=== PATIENT | female | born 1945 ===

== ENCOUNTER → 2020-03-04 15:08 | Outpatient (BNVA) | payer MEDICARE, SELFPAY | PROVIDERS: PCP Internal Medicine; Referring Provider Internal Medicine; Visit Provider Hospitalist | DX: Z13.89 Encounter for screening for other disorder (principal) | CPT/HCPCS: Q3014 ==

== ENCOUNTER → 2020-04-30 13:28 | Outpatient (BNVA) | payer MEDICARE, SELFPAY | PROVIDERS: PCP Internal Medicine; Visit Provider Hospitalist | DX: J01.00 Acute maxillary sinusitis, unspecified (principal); J30.9 Allergic rhinitis, unspecified; J45.40 Moderate persistent asthma, uncomplicated; R91.8 Other nonspecific abnormal finding of lung field; Z77.22 Contact with and (suspected) exposure to environmental tobacco smoke (acute) (chronic); Z79.51 Long term (current) use of inhaled steroids | CPT/HCPCS: 99212 ==

== ENCOUNTER 2020-05-13 10:24 | Outpatient (REF) | payer MEDICARE, SELFPAY ==
--- NOTE | ~2020-05-13 | CT_ITS ---
EXAMINATION: CT CHEST WITHOUT CONTRAST CLINICAL INFORMATION: Pulmonary nodule. Follow up. COMPARISON: CT chest 08/18/2019. TECHNIQUE: Multidetector volumetric CT imaging of the chest was done. Axial MIP volume rendering provided. Sagittal and coronal reformatted images were obtained. This CT examination was performed using dose optimization techniques as appropriate, variously including the following: Automated exposure control. Adjustment of mA and/or kV according to patient size (this includes techniques or standardized protocols for targeted exams where dose is matched to indication/reason for exam; i.e. extremities or head). Use of iterative reconstruction technique. DLP: 115 mGy-cm FINDINGS: DOWEL STICKER OPERATOR: Unremarkable. LUNGS: There are bilateral pulmonary nodules. A 2 mm calcified nodule right upper lobe image 134/5, a 7 mm calcified nodule right lower lobe medially axial image 302/5, a 2 mm calcified nodule right lower lobe image 310/5 and a 3 mm noncalcified nodule right lung base image 359/5. Minimal atelectatic changes are seen in the right lung base. There is a 7 mm lingular nodule image 302/5 approximately same size on the previous study. Focal mucosal plugging just proximal to the nodule appears improved. There is a 5 mm nodule left upper lobe axial image 220/5, a bilobed 3 mm left CP angle nodule axial image 394/5, stable 2 mm subpleural nodule left lower lobe superior segment axial image 274/5, stable. MEDIASTINUM: The thyroid lobes are symmetrical and normal. The central trachea and the bronchi are widely patent. Heart size and the great vessels are normal caliber. There are coronary artery calcifications present. There is no pericardial effusion. No abnormal mediastinal or hilar lymph nodes seen. PLEURA: There is no pleural effusion. No pleural mass or thickening. AXILLA: There are small shotty lymph nodes seen in the bilateral axilla. UPPER ABDOMEN: Visualized liver, spleen, pancreas and bilateral adrenal glands are unremarkable. There are no radiopaque gallstones. OSSEOUS STRUCTURES: There is a lytic lesion T11 vertebra similar to previous study. CT/CT chest wo con IMPRESSION: Essentially stable noncalcified pulmonary nodules in the left lung. Several calcified nodules in the right lung are stable. Focal mucus plugging appears slightly improved. No new pulmonary nodules, consolidation or mass seen. Small shotty lymph nodes axillae stable.
== END 2020-05-13 10:25 | disposition home or self-care (01) ==
LOC: HO.CT 10:24
PROVIDERS: Visit Provider Hospitalist
DX: R91.8 Other nonspecific abnormal finding of lung field (principal)
CPT/HCPCS: 71250

== ENCOUNTER → 2020-05-20 13:33 | Outpatient (BNVA) | payer MEDICARE, SELFPAY | PROVIDERS: PCP Internal Medicine; Visit Provider Internal Medicine Gastroenterology | DX: R10.9 Unspecified abdominal pain (principal); K29.70 Gastritis, unspecified, without bleeding; K31.84 Gastroparesis; K92.89 Other specified diseases of the digestive system; K59.09 Other constipation; Z79.4 Long term (current) use of insulin; E11.43 Type 2 diabetes mellitus with diabetic autonomic (poly)neuropathy; Z12.11 Encounter for screening for malignant neoplasm of colon | CPT/HCPCS: 99212 ==

== ENCOUNTER → 2020-05-28 14:33 | Outpatient (BNVA) | payer MEDICARE, SELFPAY | PROVIDERS: PCP Internal Medicine; Visit Provider Hospitalist | DX: Z13.89 Encounter for screening for other disorder (principal) | CPT/HCPCS: Q3014 ==

== ENCOUNTER 2020-06-15 07:34 | Outpatient (REF) | payer MEDICARE, SELFPAY ==
[2020-06-15 08:48] LABS: Alanine Aminotransferase 19 U/L (0-31); Albumin Level 4.2 g/dL (3.5-5.0); Alkaline Phosphatase 64 U/L (39-117); Anion Gap 12 (12-20); Aspartate Amino Transferase 17 U/L (5-31); Bilirubin Total 0.7 mg/dL (0.0-1.0); Blood Urea Nitrogen 26 mg/dL (9-16); Calcium 9.4 mg/dL (8.4-10.2); Carbon Dioxide 27 mmol/L (22-29); Chloride 106 mmol/L (96-108); Cholesterol 177 mg/dL; Estimated Glomerular Filt Rate 58; Glucose Fasting 123 mg/dL (60-99); HDL Cholesterol 44 mg/dL; LDL Cholesterol Calculated 111 mg/dl; Potassium 4.3 mmol/L (3.3-5.1); Sodium 141 mmol/L (135-145); Total Protein 7.2 g/dL (6.5-8.0); Triglycerides 111 mg/dL
[2020-06-15 09:35] LABS: Creatinine Urine 114.36 mg/dL; Microalbumin Urine < 5.0 mg/L
[2020-06-18 13:22] LABS: Vitamin D 25-OH, D2 <4 ng/mL; Vitamin D 25-OH, D3 31 ng/mL; Vitamin D 25-OH, Total 31 ng/mL (30-100)
== END 2020-06-15 07:35 | disposition home or self-care (01) ==
LOC: HO.LAB 07:34
PROVIDERS: Absent Provider Nurse Practitioner Family; PCP Internal Medicine; Visit Provider Internal Medicine
DX: E11.9 Type 2 diabetes mellitus without complications (principal); E78.5 Hyperlipidemia, unspecified; E55.9 Vitamin D deficiency, unspecified; Z79.4 Long term (current) use of insulin
CPT/HCPCS: 36415; 80053; 80061; 82043; 82306

== ENCOUNTER → 2020-06-24 13:27 | Outpatient (BNVA) | payer MEDICARE, SELFPAY | PROVIDERS: PCP Internal Medicine; Visit Provider Hospitalist | DX: R91.8 Other nonspecific abnormal finding of lung field (principal); R05 Cough; J45.40 Moderate persistent asthma, uncomplicated; J30.9 Allergic rhinitis, unspecified | CPT/HCPCS: 99212 ==

== ENCOUNTER → 2020-07-02 09:39 | Outpatient (BNVA) | payer MEDICARE, SELFPAY | PROVIDERS: PCP Internal Medicine; Visit Provider Hospitalist | DX: J45.40 Moderate persistent asthma, uncomplicated (principal); R91.8 Other nonspecific abnormal finding of lung field; R05 Cough | CPT/HCPCS: 94664; 99211 ==

== ENCOUNTER → 2020-07-08 09:18 | Outpatient (BNVA) | payer MEDICARE, SELFPAY | PROVIDERS: PCP Internal Medicine; Visit Provider Hospitalist | DX: J45.40 Moderate persistent asthma, uncomplicated (principal); R05 Cough; R91.8 Other nonspecific abnormal finding of lung field | CPT/HCPCS: 99212 ==

== ENCOUNTER → 2020-07-13 11:17 | Outpatient (BNVA) | payer MEDICARE, SELFPAY | PROVIDERS: PCP Internal Medicine; Visit Provider Internal Medicine | DX: Z01.810 Encounter for preprocedural cardiovascular examination (principal); I25.10 Atherosclerotic heart disease of native coronary artery without angina pectoris; E11.8 Type 2 diabetes mellitus with unspecified complications; I10 Essential (primary) hypertension; E78.5 Hyperlipidemia, unspecified; R05 Cough; J45.40 Moderate persistent asthma, uncomplicated; J30.9 Allergic rhinitis, unspecified; R91.8 Other nonspecific abnormal finding of lung field | CPT/HCPCS: 93005; 99212 ==

== ENCOUNTER 2020-07-14 09:55 | Day surgery (SDC) | payer MEDICARE, SELFPAY ==
--- NOTE | 2020-07-13 13:02 | P.CONAN_ITS ---
HPI - Anesthesia Eval Consult details Narrative: 74yo F for Bronchoscopy Fiberoptic Cardiac cleared at low risk Seen at [facility] ED with chest pressure. No ACS, sent home with referral to f/u with cardiology. [facility] Active Problems Active Problems: All Active Problems (Updated 07/13/20 @ 11:48 by Jm Spencer MD) Preoperative cardiovascular examination (Acute) Other and unspecified hyperlipidemia (Acute) Essential hypertension (Acute) Type 2 diabetes mellitus with unspecified complications (Acute) Atherosclerotic cardiovascular disease (Acute) Urinary incontinence (Acute) Obese (Acute) Dyslipidemia (Acute) Essential hypertension (Acute) Gas bloat syndrome (Acute) Colon cancer screening (Acute) Chronic constipation (Acute) Anxiety and depression (Acute) Gastric pain (Acute) Sinusitis (Acute) Diabetic gastroparesis (Acute) Gastritis (Acute) Chronic allergic rhinitis (Acute) Asthma (Acute) Cough (Acute) Cough (Acute) Diabetes mellitus (Acute) Fibromyalgia (Acute) Pulmonary nodules (Acute) Past Medical History Medical History Anxiety and depression Asthma Atherosclerotic cardiovascular disease Chronic allergic rhinitis Cough Cough Diabetes mellitus Dyslipidemia Essential hypertension Fibromyalgia Gastric pain Obese Pulmonary nodules Sinusitis Urinary incontinence Family History Family History Father Hypertension Mother Hypertension Diabetes Daughter Diabetes Brother No problems noted. Surgical History Surgical History H/O breast biopsy H/O left knee surgery H/O: hysterectomy Hx of colonoscopy Social History Social History Household Members: Children Alcohol intake: never Smoking Status: Never smoker Tobacco Type: Cigarette Second Hand Smoke Exposure: Yes Meds Allergies Allergy/AdvReac Type Severity Reaction Status Date / Time empagliflozin [Jardiance] AdvReac Unknown vaginal Verified 07/14/20 22:23 itch fluticasone [Flovent HFA] AdvReac Unknown lip Verified 07/14/20 22:23 swelling metformin AdvReac Unknown stomach Verified 07/14/20 22:23 pain sitagliptin [Januvia] AdvReac Unknown stomach Verified 07/14/20 22:23 pain motrin Allergy Unknown stomachache Uncoded 07/14/20 22:23 percocet Allergy Unknown nausea and Uncoded 07/14/20 22:23 vomiting vicodin Allergy Unknown nausea and Uncoded 07/14/20 22:23 vomiting Home Medications Medication Instructions Recorded Confirmed Last Taken Type clonidine 0.1 mg/24 hr weekly 1 patch TOPICAL QWEEK 12/30/19 07/13/20 Unknown History transdermal patch ipratropium bromide 21 mcg (0.03 INTRANASAL 12/30/19 07/13/20 Unknown History %) nasal spray latanoprost 0.005 % eye drops 1 drp OPHTHALMIC (EYE) ml 12/30/19 07/13/20 Unknown History lancets #100 ea 01/06/20 07/13/20 Unknown History azelastine 137 mcg (0.1 %) nasal 2 spray INTRANASAL BID 05/20/20 07/13/20 Unknown History spray aerosol lidocaine HCl 2 % mucosal solution ml PO 05/20/20 07/13/20 Unknown History ondansetron HCl 4 mg tablet 4 mg PO Q8H PRN 05/28/20 07/13/20 Unknown History ketotifen fumarate 0.025 % (0.035 1 drp OPHTHALMIC (EYE) BID 06/24/20 07/13/20 Unknown History %) eye drops atorvastatin 40 mg tablet 40 mg PO DAILY tab 07/13/20 07/13/20 Unknown History Exam Exam Date and Time: July 13, 2020 1302 Narrative Narrative: Last echocardiogram shows LVEF of 50-55%, mild diastolic dysfunction but otherwise unremarkable. Myocardial perfusion imaging with no ischemia; fixed defect along the anterior wall and septum suspected to be from soft tissue artifact. Chest CT scan shows calcification of her coronary arteries. Gianni amado, recommend medical treatment for stable coronary disease. EKG 06/2020 sinus rhythm at 81/Min; no significant ST-T changes and otherwise unremarkable. Poor R-wave progression is most likely from her body habitus. Assessment and Plan Assessment Anesthesia Assessment: Chart Reviewed
[2020-07-14] VITALS (9 sets, daily range): BP systolic 106–160; BP diastolic 54–74; PULSE 57–96; RESP 16–18; TEMP 36.1–36.6; O2SAT 96–99; BMI 32.3
[2020-07-14 10:31] LABS: Glucose, Whole Blood 137 mg/dL (60-115)
--- NOTE | 2020-07-14 10:44 | HO.ANESPROP2 ---
[facility] Active Problems Active Problems: All Active Problems (Updated 07/13/20 @ 13:06 by Linda Lawrence) Preoperative cardiovascular examination (Acute) Other and unspecified hyperlipidemia (Acute) Essential hypertension (Acute) Type 2 diabetes mellitus with unspecified complications (Acute) Atherosclerotic cardiovascular disease (Acute) Urinary incontinence (Acute) Obese (Acute) Dyslipidemia (Acute) Essential hypertension (Acute) Gas bloat syndrome (Acute) Colon cancer screening (Acute) Chronic constipation (Acute) Anxiety and depression (Acute) Gastric pain (Acute) Sinusitis (Acute) Diabetic gastroparesis (Acute) Gastritis (Acute) Chronic allergic rhinitis (Acute) Asthma (Acute) Cough (Acute) Cough (Acute) Diabetes mellitus (Acute) Fibromyalgia (Acute) Pulmonary nodules (Acute) Past Medical History Medical History Anxiety and depression Asthma Atherosclerotic cardiovascular disease Chronic allergic rhinitis Cough Cough Diabetes mellitus Dyslipidemia Essential hypertension Fibromyalgia Gastric pain Obese Pulmonary nodules Sinusitis Urinary incontinence Family History Family History Father Hypertension Mother Hypertension Diabetes Daughter Diabetes Brother No problems noted. Surgical History Surgical History H/O breast biopsy H/O left knee surgery H/O: hysterectomy Hx of colonoscopy Social History Social History Household Members: Children Alcohol intake: never Smoking Status: Never smoker Tobacco Type: Cigarette Second Hand Smoke Exposure: Yes Use of substances other than those prescribed or required for medical reasons: No Are you DNR?: No Advance Directives: No Advance Directives Information Provided: Yes Meds Allergies Allergy/AdvReac Type Severity Reaction Status Date / Time empagliflozin [Jardiance] AdvReac Unknown vaginal Verified 07/14/20 10:42 itch fluticasone [Flovent HFA] AdvReac Unknown lip Verified 07/14/20 10:42 swelling metformin AdvReac Unknown stomach Verified 07/14/20 10:42 pain sitagliptin [Januvia] AdvReac Unknown stomach Verified 07/14/20 10:42 pain motrin Allergy Unknown stomachache Uncoded 07/13/20 13:02 percocet Allergy Unknown nausea and Uncoded 07/13/20 13:02 vomiting vicodin Allergy Unknown nausea and Uncoded 07/13/20 13:02 vomiting Active Medications: Current Medications Generic Name Dose Route Start Last Admin Trade Name Maral PRN Reason Stop Dose Admin Lactated Ringer's 1,000 mls @ 50 mls/hr 07/14/20 10:15 Lr IV .Q20H [facility] Home Medications Medication Instructions Recorded Confirmed Last Taken Type clonidine 0.1 mg/24 hr weekly 1 patch TOPICAL QWEEK 12/30/19 07/13/20 Unknown History transdermal patch ipratropium bromide 21 mcg (0.03 INTRANASAL 12/30/19 07/13/20 Unknown History %) nasal spray latanoprost 0.005 % eye drops 1 drp OPHTHALMIC (EYE) ml 12/30/19 07/13/20 Unknown History lancets #100 ea 01/06/20 07/13/20 Unknown History azelastine 137 mcg (0.1 %) nasal 2 spray INTRANASAL BID 05/20/20 07/13/20 Unknown History spray aerosol lidocaine HCl 2 % mucosal solution ml PO 05/20/20 07/13/20 Unknown History ondansetron HCl 4 mg tablet 4 mg PO Q8H PRN 05/28/20 07/13/20 Unknown History ketotifen fumarate 0.025 % (0.035 1 drp OPHTHALMIC (EYE) BID 06/24/20 07/13/20 Unknown History %) eye drops mirtazapine 15 mg tablet 15 mg PO BEDTIME 06/24/20 07/13/20 Unknown History atorvastatin 40 mg tablet 40 mg PO DAILY tab 07/13/20 07/13/20 Unknown History Exam Exam Date and Time: July 14, 2020 1044 Height,Weight and Vital Signs: Height 4 ft 11 in Weight 72.575 kg Pertinent Lab Results Pertinent Lab Results: Laboratory Tests 07/14/20 10:24 POC Glucose 137 H Airway Mallampati Class: III TM Dist: >3cm Neck ROM: Full Heart: RRR Lungs: cTA
[2020-07-14] MEDS: Lactated Ringers 1,000 ML 50 ML IV (10:57)
--- NOTE | 2020-07-14 11:26 | MHC.SHP ---
Pre-Procedural Eval Section B Chief Complaint: cough Allergies: Allergies Allergy/AdvReac Type Severity Reaction Status Date / Time empagliflozin [Jardiance] AdvReac Unknown vaginal Verified 07/14/20 10:42 itch fluticasone [Flovent HFA] AdvReac Unknown lip Verified 07/14/20 10:42 swelling metformin AdvReac Unknown stomach Verified 07/14/20 10:42 pain sitagliptin [Januvia] AdvReac Unknown stomach Verified 07/14/20 10:42 pain motrin Allergy Unknown stomachache Uncoded 07/13/20 13:02 percocet Allergy Unknown nausea and Uncoded 07/13/20 13:02 vomiting vicodin Allergy Unknown nausea and Uncoded 07/13/20 13:02 vomiting Plan I have reviewed the history and physical and performed a pertinent physical examination on my patient. No changes have occurred unless specified.
--- NOTE | 2020-07-14 11:52 | P.BOP_ITS ---
Brief Operative Note Date of Service: 07/14/20 Pre-op diagnosis: cough Post-op diagnosis: other (Tracheobronchomalecia) Procedure: Bronchoscopy Surgeon: Reji Wilks MD Anesthesia: GLMA Was an Welder Apprentice Combination used for this Procedure?: No Estimated blood loss (mL): 0 Pathology: none sent Condition: stable Disposition: same day
[2020-07-14] MEDS: Throat Lozenge, Medicated LOZENGE 1 LOZENGE MUCOUS MEM (12:38)
--- NOTE | 2020-07-14 22:03 | OP_ITS ---
SURGEON: Reji Wilks MD PREOPERATIVE DIAGNOSIS: Cough. POSTOPERATIVE DIAGNOSIS: Tracheobronchomalacia. PROCEDURE PERFORMED: ESTIMATED BLOOD LOSS: COMPLICATIONS: ANESTHESIA: LMA. ASSISTANTS: SPECIMENS: ASA CLASSIFICATION: 3. DESCRIPTION OF PROCEDURE: After the patient is adequately sedated, the flexible digital bronchoscope was inserted over the LMA to the level of the larynx. The vocal cords appeared to be symmetrical. The patient was sedated and therefore cannot follow any commands at this point. Lidocaine was administered the vocal cords. After the lidocaine was administered, the bronchoscope was then passed the vocal cords to the level of the trachea. The proximal trachea appeared to be slightly smaller in diameter due to likely some tracheomalacia. The tracheal mucosa appeared normal. No endobronchial lesions or masses. After instilling additional lidocaine, the bronchoscope was then navigated to the distal trachea, where she had a complete obstruction of the left mainstem bronchus due to tracheobronchomalacia appeared to be all extrinsic and dynamic. No endobronchial disease noted. The bronchoscope was able to be navigated to the entire tracheobronchial tree without any evidence of any endobronchial lesions or masses. The left mainstem bronchus appeared to be more erythematous and more friable, that is where she had the obstruction. A cytologic brush was introduced into the left lower lobe. Bronchial washings were collected throughout bilateral lung washings, sent for both cytology and microbiology. The bronchoscope was then removed. The total endoscopic time approximately 10 minutes. Vital signs were stable. INTERPRETATION: 1. 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 2. Bronchitis primarily of the left mainstem bronchus. 3. Chronic cough. MD MANUEL Chu/GEOVANY / [id number]
== END 2020-07-14 13:54 | disposition home or self-care (01) ==
PROVIDERS: PCP Internal Medicine; Visit Provider Hospitalist
PROC: 0BJ08ZZ Inspection of Tracheobronchial Tree, Via Natural or Artificial Opening Endoscopic (ICD-10-PCS; CPT 31622; principal; 2020-07-14 11:30)
DX: J39.8 Other specified diseases of upper respiratory tract (principal); J98.09 Other diseases of bronchus, not elsewhere classified; R91.8 Other nonspecific abnormal finding of lung field; J32.9 Chronic sinusitis, unspecified; J45.909 Unspecified asthma, uncomplicated; I10 Essential (primary) hypertension; E11.9 Type 2 diabetes mellitus without complications; Z79.4 Long term (current) use of insulin; Z79.51 Long term (current) use of inhaled steroids; Z79.899 Other long term (current) drug therapy; Z88.8 Allergy status to other drugs, medicaments and biological substances
CPT/HCPCS: 31623; 82947; 87071; 87102; 87107; 87116; 87205; 88112; 88305; J0171; J1100; J2250; J2405; J3010

== ENCOUNTER → 2020-07-19 11:01 | Outpatient (BNVA) | payer MEDICARE, SELFPAY | PROVIDERS: PCP Internal Medicine; Referring Provider Internal Medicine; Visit Provider Internal Medicine Gastroenterology | DX: E11.43 Type 2 diabetes mellitus with diabetic autonomic (poly)neuropathy (principal); K31.84 Gastroparesis; K29.50 Unspecified chronic gastritis without bleeding; K59.09 Other constipation; K92.89 Other specified diseases of the digestive system; Z79.899 Other long term (current) drug therapy | CPT/HCPCS: Q3014 ==

== ENCOUNTER → 2020-07-22 14:43 | Outpatient (BNVA) | payer MEDICARE, SELFPAY | PROVIDERS: PCP Internal Medicine; Visit Provider Hospitalist | DX: G47.33 Obstructive sleep apnea (adult) (pediatric) (principal); R91.8 Other nonspecific abnormal finding of lung field; J45.40 Moderate persistent asthma, uncomplicated; R05 Cough; J39.8 Other specified diseases of upper respiratory tract | CPT/HCPCS: 99212 ==

== ENCOUNTER → 2020-08-17 10:44 | Outpatient (BNVA) | payer MEDICARE, SELFPAY | PROVIDERS: PCP Internal Medicine; Visit Provider Urology | DX: N32.81 Overactive bladder (principal); E11.8 Type 2 diabetes mellitus with unspecified complications | CPT/HCPCS: 51798; 99212 ==

== ENCOUNTER → 2020-08-27 14:34 | Outpatient (BNVA) | payer MEDICARE, SELFPAY | PROVIDERS: PCP Family Medicine; Visit Provider Hospitalist | DX: J39.8 Other specified diseases of upper respiratory tract (principal); J45.40 Moderate persistent asthma, uncomplicated; R91.8 Other nonspecific abnormal finding of lung field; R05 Cough; G47.33 Obstructive sleep apnea (adult) (pediatric); R40.0 Somnolence; E11.9 Type 2 diabetes mellitus without complications; E78.5 Hyperlipidemia, unspecified; I10 Essential (primary) hypertension; Z79.899 Other long term (current) drug therapy | CPT/HCPCS: 99212 ==

== ENCOUNTER → 2020-09-02 10:55 | Outpatient (REF) | payer MEDICARE, SELFPAY | LOC: HO.SL 10:55 | PROVIDERS: PCP Family Medicine; Visit Provider Hospitalist | DX: G47.33 Obstructive sleep apnea (adult) (pediatric) (principal) | CPT/HCPCS: 95806 ==

== ENCOUNTER → 2020-09-21 13:02 | Outpatient (BNVA) | payer MEDICARE, SELFPAY | PROVIDERS: PCP Family Medicine; Referring Provider Family Medicine; Visit Provider Internal Medicine | DX: J39.8 Other specified diseases of upper respiratory tract (principal); G47.33 Obstructive sleep apnea (adult) (pediatric); R91.8 Other nonspecific abnormal finding of lung field; I25.10 Atherosclerotic heart disease of native coronary artery without angina pectoris; I10 Essential (primary) hypertension; E11.8 Type 2 diabetes mellitus with unspecified complications; E78.5 Hyperlipidemia, unspecified | CPT/HCPCS: 99212 ==

== ENCOUNTER → 2020-10-20 09:41 | Outpatient (BNVA) | payer MEDICARE, SELFPAY | PROVIDERS: PCP Family Medicine; Visit Provider Urology | DX: N81.4 Uterovaginal prolapse, unspecified (principal); N32.81 Overactive bladder; R35.0 Frequency of micturition; E11.9 Type 2 diabetes mellitus without complications; I10 Essential (primary) hypertension; G47.33 Obstructive sleep apnea (adult) (pediatric); Z88.5 Allergy status to narcotic agent; Z88.8 Allergy status to other drugs, medicaments and biological substances | CPT/HCPCS: 52000; 99212 ==

== ENCOUNTER → 2020-10-21 08:01 | Outpatient (BNVA) | payer MEDICARE, SELFPAY | PROVIDERS: PCP Family Medicine; Visit Provider Internal Medicine Gastroenterology | DX: Z13.89 Encounter for screening for other disorder (principal) | CPT/HCPCS: Q3014 ==

== ENCOUNTER 2020-11-05 17:18 | Outpatient (REF) | payer MEDICARE, SELFPAY ==
[2020-11-05 23:01] LABS: Appearance Urine CLEAR; Color Urine YELLOW; Glucose Urine UA NEG (NEG); Leukocyte Esterase Urine NEG (NEG); Nitrite Urine NEG (NEG); Specific Gravity - Urine <= 1.005 (1.005-1.025); Urine Blood NEG (NEG); Urine Ketones NEG (NEG); Urine Protein NEG (NEG-TRACE)
[2020-11-06 04:26] LABS: RBC Urine 0 /HPF (0); Squamous Epithelial Cell Urine TRACE /LPF; WBC Urine 0-2 /HPF (0-4)
== END 2020-11-05 17:19 | disposition home or self-care (01) ==
LOC: HO.LAB 17:18
PROVIDERS: PCP Family Medicine; Visit Provider Urology
DX: N32.81 Overactive bladder (principal); R32 Unspecified urinary incontinence
CPT/HCPCS: 81001; 87086

== ENCOUNTER 2020-11-19 20:53 | Emergency (ER) | payer MEDICARE, SELFPAY ==
--- NOTE | ~2020-11-19 | XR_ITS ---
EXAMINATION: XR CHEST CLINICAL INFORMATION: Sinus infection. COMPARISON: Chest done on 07/14/2018. TECHNIQUE: Frontal view of the chest was obtained. FINDINGS: No significant abnormality is noted involving the heart, lungs, mediastinum, bony thorax or soft tissues. XR/XR chest 1V IMPRESSION: Unremarkable examination.
[2020-11-19 21:07] VITALS: BP 178/92; BP 195/88; PULSE 69; PULSE 84; RESP 16; TEMP 36.5; O2SAT 98; BMI 32.4
--- NOTE | 2020-11-19 21:17 | ECG_ITS ---
Test Reason : HYPERTENSION Blood Pressure : / mmHG Vent. Rate : 063 BPM Atrial Rate : 063 BPM P-R Int : 162 ms QRS Dur : 104 ms QT Int : 420 ms P-R-T Axes : 057 -17 035 degrees QTc Int : 429 ms Normal sinus rhythm Normal ECG When compared with ECG of 27-DEC-2018 23:28, QT has shortened Referred By: Generic ED Physician Electronically Signed By:PRAMOD MCINTYRE
[2020-11-19 21:27] VITALS: BP 158/65; PULSE 63
[2020-11-19 21:28] LABS: Basophils Percent Auto 0.4 % (0-2); Eosinophils Absolute Auto 0.2 X10*3/uL (0.0-0.4); Hematocrit 40.2 % (37-47); Hemoglobin 13.9 g/dl (12.0-16.0); Imm Gran Abs Auto 0.02 X10*3/uL (0.00-0.03); Imm Gran Pct Auto 0.2 % (0.0-0.4); Lymphocytes Absolute Auto 3.2 X10*3/uL (1.2-4.9); Lymphocytes Percent Auto 33.8 % (20-40); MANUAL DIFF FLAG NO; Mean Corpuscular HGB Conc 34.6 g/dl (31.0-35.0); Mean Corpuscular Volume 86.6 fL (80-98); Mean Platelet Volume 10.4 fL (9.4-12.3); Monocytes Absolute Auto 0.7 X10*3/uL (0.1-1.2); Monocytes Percent Auto 7.5 % (2-11); Neutrophils Absolute Auto 5.2 X10*3/uL (2.0-8.3); Neutrophils Percent Auto 56.1 % (45-73); Platelet Count 199 X10*3/uL (160-400); Red Blood Count 4.64 X10*6/uL (4.20-5.50); Red Cell Distribution Width 12.7 % (11.0-16.0); White Blood Count 9.3 X10*3/uL (4.8-10.8)
--- NOTE | 2020-11-19 21:31 | PC.NURSE ---
Labs and Covid swab obtained. crown and bridge dental lab technician at bedside for EKG. Pt awaiting primary MD danielson.
[2020-11-19 21:40] LABS: COVID-19 Test Negative (Negative)
[2020-11-19 21:42] LABS: Anion Gap 12 (12-20); Blood Urea Nitrogen 35 mg/dL (9-16); Calcium 9.3 mg/dL (8.4-10.2); Carbon Dioxide 24 mmol/L (22-29); Chloride 107 mmol/L (96-108); Creatinine Clr Calc Pharmacy 28.8; Estimated Glomerular Filt Rate 38; Glucose Random 167 mg/dL (60-115); Potassium 3.7 mmol/L (3.3-5.1); Sodium 139 mmol/L (135-145)
--- NOTE | 2020-11-19 21:45 | PC.NURSE ---
CXR at bedside. Ps daughter calling for a nurse from room as pt began to have CP when XRay transitioned her from semi fowlers to sitting upright. Pt reports the CP subsided very quickly after this RN lowered HOB. Awaiting primary MD erum.
[2020-11-19 21:47] VITALS: BP 138/54
[2020-11-19 21:48] LABS: Troponin-I High Sensitivity 4.1 ng/L (<3.5-17.0)
[2020-11-19 22:56] VITALS: BP 135/51; PULSE 70; RESP 16; O2SAT 98
--- NOTE | 2020-11-19 23:25 | PC.NURSE ---
PT requested to use the bathroom. Transferred to bed side commode with stand and pivot. PT urine collected and sent to lab. PT is waiting to be seen by provider.
[2020-11-19 23:32] LABS: Appearance Urine CLEAR; Color Urine STRAW; Glucose Urine UA NEG (NEG); Leukocyte Esterase Urine NEG (NEG); Nitrite Urine NEG (NEG); Urine Blood NEG (NEG); Urine Ketones NEG (NEG); Urine Protein NEG (NEG-TRACE)
--- NOTE | 2020-11-20 00:32 | PC.NURSE ---
at bed side for primary eval.
[2020-11-20 00:56] LABS: RBC Urine 0-2 /HPF (0); Squamous Epithelial Cell Urine TRACE /LPF; WBC Urine 0-2 /HPF (0-4)
--- NOTE | 2020-11-20 01:03 | ED.GENADULT ---
HPI - General Adult General Chief complaint: Headache Stated complaint: crisis Time Seen by Provider: 11/20/20 00:17 Source: patient Mode of arrival: EMS Limitations: language barrier (cigarette examiner was used via iPad) History of Present Illness HPI narrative: 74-year-old female who presents emergency department for evaluation of elevated blood pressure. Patient states that this evening her blood pressure was 191/75. She states that over the last 2 months to 1 year she has been having high blood pressures. She states that her systolic blood pressure is always greater than 144 and sometimes higher. She states that today she had a headache which she describes as a usual headache which was relieved by Tylenol. She states the headache came back again and was again relieved by Tylenol. She states that over the past 3 days she has been treated with amoxicillin for chronic sinus pain and acute sinusitis. The patient takes 3 blood pressure medications including amlodipine, spironolactone and clonidine patch. She states that the clonidine patch was increased from 0.1 mg to 0.2 mg. She states that despite these medications she continues to have have high blood pressure. She states she did have brief, inter demented episodes of left-sided chest pain, she denied numbness, weakness, lightheadedness, dizziness, diaphoresis. She states that she does have occasional nausea but no vomiting. She denied fever, chills, shortness of breath, dyspnea on exertion Related Data Home Medications Medication Instructions Recorded Confirmed clonidine 0.1 mg/24 hr weekly 1 patch TOPICAL QWEEK 12/30/19 10/21/20 transdermal patch ipratropium bromide 21 mcg (0.03 INTRANASAL 12/30/19 10/21/20 %) nasal spray latanoprost 0.005 % eye drops 1 drp OPHTHALMIC (EYE) ml 12/30/19 10/21/20 lancets (OneTouch UltraSoft #100 ea 01/06/20 10/21/20 Lancets) azelastine 137 mcg (0.1 %) nasal 2 spray INTRANASAL BID 05/20/20 10/21/20 spray aerosol lidocaine HCl 2 % mucosal solution ml PO 05/20/20 10/21/20 ketotifen fumarate 0.025 % (0.035 1 drp OPHTHALMIC (EYE) BID 06/24/20 10/21/20 %) eye drops loteprednol etabonate 0.5 % eye 1 drp OPHTHALMIC (EYE) QID 08/17/20 10/21/20 drops,suspension pen needle, diabetic 32 gauge x #50 ea 08/17/20 10/21/20/32 sitagliptin 100 mg tablet 100 mg PO DAILY 08/17/20 10/21/20 budesonide-formoterol HFA 160 2 puff INHALATION Q12H 08/27/20 10/21/20 mcg-4.5 mcg/actuation aerosol inhaler (Symbicort) cholecalciferol (vitamin D3) 50 50 mcg PO DAILY 09/21/20 10/21/20 mcg (2,000 unit) tablet timolol maleate 0.5 % eye drops 1 drp OPHTHALMIC (EYE) BID 09/21/20 10/21/20 Previous Rx's Medication Instructions Recorded insulin glargine 100 unit/mL (3 35 unit SUBCUT DAILY 30 Days #10.5 12/18/19 mL) subcutaneous pen (Lantus ml Solostar U-100 Insulin) blood sugar diagnostic (OneTouch #100 ea 01/07/20 Verio test strips) blood-glucose meter (OneTouch #1 ea 01/07/20 Verio Meter) ipratropium 0.5 mg-albuterol 3 mg 3 ml INHALATION Q6H PRN #180 ml 01/27/20 (2.5 mg base)/3 mL nebulization soln amlodipine 10 mg tablet 10 mg PO DAILY 30 Days #30 tab 04/25/20 albuterol sulfate 90 mcg/actuation 2 puff INHALATION Q4H PRN #8.5 g 05/04/20 aerosol inhaler simethicone 80 mg chewable tablet 80 mg PO TID-QID PRN 30 Days #90 05/20/20 (Gas Relief 80 (simethicone)) tab diphenhydramine HCl 25 mg capsule 25 mg PO BEDTIME PRN 90 Days #90 06/24/20 (Benadryl) cap codeine 10 mg-guaifenesin 100 mg/5 5 ml PO Q4H PRN 10 Days #300 ml 07/15/20 mL oral liquid Magic Mouthwash 10 ml PO QID PRN 14 Days #240 ml 08/27/20 Diphen/Lido/Antacid 1:1:1 240 mL suspension rosuvastatin 20 mg tablet (Crestor) 20 mg PO DAILY #30 tab 09/21/20 mirtazapine 15 mg tablet 15 mg PO BEDTIME #30 tab 09/23/20 sennosides 8.6 mg-docusate sodium 1 tab-cap PO BEDTIME 30 Days #30 10/21/20 50 mg tablet (Senokot-S) tab mirabegron 25 mg tablet,extended 25 mg PO DAILY 30 Days #30 tab 10/28/20 release 24 hr (Myrbetriq) Allergies Allergy/AdvReac Type Severity Reaction Status Date / Time umeclidinium AdvReac Intermediate Chest Pain Verified 11/19/20 21:16 [From Incruse Ellipta] empagliflozin [Jardiance] AdvReac Unknown vaginal Verified 11/19/20 21:16 itch fluticasone [Flovent HFA] AdvReac Unknown lip Verified 11/19/20 21:16 swelling metformin AdvReac Unknown stomach Verified 11/19/20 21:16 pain sitagliptin [Januvia] AdvReac Unknown stomach Verified 11/19/20 21:16 pain motrin Allergy Unknown stomachache Uncoded 11/19/20 21:16 percocet Allergy Unknown nausea and Uncoded 11/19/20 21:16 vomiting vicodin Allergy Unknown nausea and Uncoded 11/19/20 21:16 vomiting Review of Systems Review of Systems: Yes all other systems are reviewed and are negative [facility] Past Medical History [facility] Narrative: Social history: She denies tobacco use, alcohol use and drug use. Medical History Anxiety and depression Asthma Atherosclerotic cardiovascular disease Chronic allergic rhinitis Cough Cough Diabetes mellitus Dyslipidemia Essential hypertension Fibromyalgia Gastric pain Obese ROXIE (obstructive sleep apnea) Pulmonary nodules Sinusitis Tracheobronchomalacia Urinary incontinence Surgical History H/O breast biopsy H/O left knee surgery H/O: hysterectomy History of bronchoscopy Hx of colonoscopy Hx of esophagogastroduodenoscopy Family History Family History Father Hypertension Mother Hypertension Diabetes Daughter Diabetes Brother No problems noted. Social History Social History Household Members: Children Alcohol intake: never Patient Tobacco Use Status: Never used Tobacco Second Hand Smoke Exposure: Yes Advance Directives: No Advance Directives Information Provided: No Physical Exam Vital Signs: Vital Signs: Last Vital Signs Temp 97.7 F 11/19/20 21:07 Pulse 70 11/19/20 22:56 Resp 16 11/19/20 22:56 BP 135/51 L 11/19/20 22:56 Pulse Ox 98 11/19/20 22:56 Body Mass Index 32.4 Const: General: cooperative and no acute distress Orientation/consciousness: oriented to person and oriented to place Limitations: no limitations HENMT: Head: Yes normal to inspection, Yes normocephalic and Yes atraumatic Ears: external ears normal General nose exam: Normal external nose present Face and sinus: Yes normal facial exam Mouth: Normal oral and palatal mucosa present Throat: Yes posterior oropharynx normal Eyes: General: appearance normal, both eyes and all related structures Pupils: Equal, round and reactive pupils present Neck: Neck: Yes normal visual inspection, Yes no lymphadenopathy, Yes trachea midline and Yes supple Chest: Chest palpation & inspection: normal inspection of the chest and tenderness (Left costochondral joints) Resp: Effort & Inspection: normal respiratory effort and able to speak in complete sentences Auscultation: clear to auscultation bilaterally Cardio: Rate: regular rate Rhythm: regular rhythm Heart sounds: S1 normal heart sound present, S2 normal heart sound present and no murmurs GI: Inspection: Yes normal to inspection Palpation (GI): Soft to palpation, nontender and no guarding Auscultation: normal bowel sounds : General: Yes no CVA tenderness Back/Spine/Pelvis: Back: no CVA tenderness Skin: General skin exam: no rashes or lesions noted Neuro: General: oriented to person and oriented to place Cranial nerves: Yes CN's II-XII intact bilaterally and Yes Equal, round and reactive pupils present Cognition (Neuro): normal cognition Motor exam (neuro): 5/5 motor strength present throughout Extrem: General: Yes normal to inspection Psych: Appearance: grossly normal Speech and movement: Normal speech and movement present Affect: normal affect Attitude: cooperative Thought process: Normal thought process present Thought content: Normal thought content present Course Course Course Narrative: 74-year-old female who presents emergency department for evaluation of high blood pressure. She states that her blood pressure prior to coming to the emergency department was 191/75. She did complain of headaches but she states that these are usual headaches and they are relieved by Tylenol. She had intermittent, brief left-sided chest pain. The patient did have an elevated blood pressure on presentation, repeat blood pressures did improve. Patient's examination did reveal left-sided chest wall tenderness with no other significant findings. The patient's laboratory evaluation included a CBC and comprehensive metabolic panel. Patient has a slight elevation in her BUN of 35 with a creatinine of 1.36 otherwise her labs are unremarkable. She did have a detectable but not elevated high sensitivity troponin of 4.1. I did discuss treatment of essential hypertension with the patient and the patient's daughter. They patient was discharged home .The patient was given verbal and printed instructions prior to discharge. The patient was advised to follow-up with her PCP in 2 days and to return to the emergency department if her symptoms get worse or if she develops any new symptoms that are concerning to her. Medical Decision Making Lab Data Result diagrams: 11/19/20 21:22 11/19/20 21:22 Labs: Lab Results 11/19/20 11/19/20 11/19/20 Range/Units 21:22 21:22 21:22 WBC 9.3 (4.8-10.8) X10*3/uL RBC 4.64 (4.20-5.50) X10*6/uL Hgb 13.9 (12.0-16.0) g/dl Hct 40.2 (37-47) % MCV 86.6 (80-98) fL MCH 30.0 (27.0-33.0) pg MCHC 34.6 (31.0-35.0) g/dl RDW 12.7 (11.0-16.0) % Plt Count 199 (160-400) X10*3/uL MPV 10.4 (9.4-12.3) fL Immature Gran % (Auto) 0.2 (0.0-0.4) % Neut % (Auto) 56.1 (45-73) % Lymph % (Auto) 33.8 (20-40) % [place] % (Auto) 7.5 (2-11) % Eos % (Auto) 2.0 (0-4) % Baso % (Auto) 0.4 (0-2) % Lymph # (Auto) 3.2 (1.2-4.9) X10*3/uL [place] # (Auto) 0.7 (0.1-1.2) X10*3/uL Eos # (Auto) 0.2 (0.0-0.4) X10*3/uL Baso # (Auto) 0.0 (0.0-0.2) X10*3/uL Abs Immat Gran (auto) 0.02 (0.00-0.03) X10*3/uL Absolute Neuts (auto) 5.2 (2.0-8.3) X10*3/uL Absolute Nucleated RBC 0.000 (0.0-0.012) X10*3/uL Nucleated RBC % (auto) 0.0 (0.0-0.2) /100WBC Sodium 139 (135-145) mmol/L Potassium 3.7 (3.3-5.1) mmol/L Chloride 107 (96-108) mmol/L Carbon Dioxide 24 (22-29) mmol/L Anion Gap 12 (12-20) BUN 35 H (9-16) mg/dL Creatinine 1.36 (0.5-1.4) mg/dL Estim Creat Clear Calc 28.8 Estimated GFR 38 Random Glucose 167 H (60-115) mg/dL Calcium 9.3 (8.4-10.2) mg/dL Troponin I High Sens 4.1 (<3.5-17.0) ng/L Urine Color Urine Appearance Urine pH (5.0-8.0) Ur Specific [place] (1.005-1.025) Urine Protein (NEG-TRACE) MG/DL Urine Glucose (UA) (NEG) MG/DL Urine Ketones (NEG) MG/DL Urine Blood (NEG) Urine Nitrite (NEG) Ur Leukocyte Esterase (NEG) Urine RBC (0) /HPF Urine WBC (0-4) /HPF Ur Squamous Epith Cells /LPF Urine Bacteria /LPF COVID-19 ([facility]) (Negative) COVID-19 Clin Com 11/19/20 11/19/20 Range/Units 21:22 23:22 WBC (4.8-10.8) X10*3/uL RBC (4.20-5.50) X10*6/uL Hgb (12.0-16.0) g/dl Hct (37-47) % MCV (80-98) fL MCH (27.0-33.0) pg MCHC (31.0-35.0) g/dl RDW (11.0-16.0) % Plt Count (160-400) X10*3/uL MPV (9.4-12.3) fL Immature Gran % (Auto) (0.0-0.4) % Neut % (Auto) (45-73) % Lymph % (Auto) (20-40) % [place] % (Auto) (2-11) % Eos % (Auto) (0-4) % Baso % (Auto) (0-2) % Lymph # (Auto) (1.2-4.9) X10*3/uL [place] # (Auto) (0.1-1.2) X10*3/uL Eos # (Auto) (0.0-0.4) X10*3/uL Baso # (Auto) (0.0-0.2) X10*3/uL Abs Immat Gran (auto) (0.00-0.03) X10*3/uL Absolute Neuts (auto) (2.0-8.3) X10*3/uL Absolute Nucleated RBC (0.0-0.012) X10*3/uL Nucleated RBC % (auto) (0.0-0.2) /100WBC Sodium (135-145) mmol/L Potassium (3.3-5.1) mmol/L Chloride (96-108) mmol/L Carbon Dioxide (22-29) mmol/L Anion Gap (12-20) BUN (9-16) mg/dL Creatinine (0.5-1.4) mg/dL Estim Creat Clear Calc Estimated GFR Random Glucose (60-115) mg/dL Calcium (8.4-10.2) mg/dL Troponin I High Sens (<3.5-17.0) ng/L Urine Color STRAW Urine Appearance CLEAR Urine pH 6.0 (5.0-8.0) Ur Specific [place] 1.020 (1.005-1.025) Urine Protein NEG (NEG-TRACE) MG/DL Urine Glucose (UA) NEG (NEG) MG/DL Urine Ketones NEG (NEG) MG/DL Urine Blood NEG (NEG) Urine Nitrite NEG (NEG) Ur Leukocyte Esterase NEG (NEG) Urine RBC 0-2 (0) /HPF Urine WBC 0-2 (0-4) /HPF Ur Squamous Epith Cells TRACE /LPF Urine Bacteria NONE /LPF COVID-19 ([facility]) Negative (Negative) COVID-19 Clin Com See Note Discharge Plan Discharge Clinical Impression: Essential hypertension, Headache, Chest pain Patient Disposition: Home, Self-Care Additional Instructions: Home management of high blood pressure instructions: The reason to check your blood pressure at home is to give your doctor an idea of what your blood pressure does when you are not in the doctor's office. Take your blood pressure in the morning, Mondays, Wednesdays and Fridays and then write down these readings to discuss them with your doctor at your next visit. If you doctor decides that your blood pressure readings are high than your doctor will start you on medications. If you get started on medications or your doctor changes your medications, it often takes 1-2 months or longer to get your blood pressure under control. Lowering your blood pressure to rapidly or getting your blood pressure too low quickly can make you feel bad. Please return to the emergency department if you develops concerning symptoms such as severe headache, chest pain, shortness of breath, difficulty walking secondary to shortness of breath, numbness, weakness, difficulty talking. Take Tylenol (acetaminophen) 500 mg pills, 2 pills every 4 to 6 hours as needed for pain. Follow-up with your doctor to discuss your blood pressure readings. Please return to the emergency department if your symptoms get worse or if you develop any new symptoms that are concerning to you. Prescriptions: No Action (DME) lancets [OneTouch UltraSoft Lancets] [facility] [place] See Rx Instructions .ROUTE .MEDSUPPLY Qty: 100 RF: 0 (DME) blood-glucose meter [OneTouch Verio Meter] Misc See Rx Instructions .ROUTE .MEDSUPPLY Qty: 1 RF: 0 (DME) OneTouch Verio test strips Strip See Rx Instructions .ROUTE .MEDSUPPLY Qty: 100 RF: 0 ipratropium-albuterol 0.5 mg-3 mg(2.5 mg base)/3 mL solution for nebulization 3 ml inhalation Q6H PRN (Reason: wheezing) Qty: 180 RF: 3 amlodipine 10 mg tablet 10 mg PO DAILY 30 Days Qty: 30 RF: 6 albuterol sulfate 90 mcg/actuation HFA aerosol inhaler 2 puff inhalation Q4H PRN (Reason: shortness of breath or wheezing) Qty: 8.5 RF: 0 codeine-guaifenesin 10-100 mg/5 mL liquid 5 ml PO Q4H PRN (Reason: cough) 10 Days Qty: 300 RF: 0 mirtazapine 15 mg tablet 15 mg PO BEDTIME Qty: 30 RF: 1 Myrbetriq 25 mg tablet extended release 24 hr 25 mg PO DAILY 30 Days Qty: 30 RF: 1 Lantus Solostar U-100 Insulin 100 unit/mL (3 mL) insulin pen 35 unit subcut DAILY 30 Days Qty: 10.5 RF: 11 Lidocaine Viscous 2 % solution PO RF: 0 azelastine 137 mcg (0.1 %) aerosol,spray 2 spray intranasal BID RF: 0 simethicone [Gas Relief 80 (simethicone)] 80 mg tablet,chewable 80 mg PO TID-QID PRN (Reason: abdominal distention) 30 Days Qty: 90 RF: 1 clonidine 0.1 mg/24 hr patch weekly 1 patch topical QWEEK RF: 0 latanoprost 0.005 % drops 1 drp ophthalmic (eye) RF: 0 ipratropium bromide 0.03 % spray,non-aerosol intranasal RF: 0 budesonide-formoterol [Symbicort] 160-4.5 mcg/actuation HFA aerosol inhaler 2 puff inhalation Q12H RF: 0 Magic Mouthwash Diphen/Lido/Antacid 1:1:1 240 mL suspension 10 ml PO QID PRN (Reason: sore throat) 14 Days Qty: 240 RF: 1 cholecalciferol (vitamin D3) 50 mcg (2,000 unit) tablet 50 mcg PO DAILY RF: 0 timolol maleate 0.5 % drops 1 drp ophthalmic (eye) BID RF: 0 rosuvastatin [Crestor] 20 mg tablet 20 mg PO DAILY Qty: 30 RF: 5 ketotifen fumarate 0.025 % (0.035 %) drops 1 drp ophthalmic (eye) BID RF: 0 diphenhydramine HCl [Benadryl] 25 mg capsule 25 mg PO BEDTIME PRN (Reason: pruritus) 90 Days Qty: 90 RF: 1 (DME) pen needle, diabetic 32 gauge x needle See Rx Instructions ea .ROUTE .MEDSUPPLY Qty: 50 RF: 0 Januvia 100 mg tablet 100 mg PO DAILY RF: 0 loteprednol etabonate 0.5 % drops,suspension 1 drp ophthalmic (eye) QID RF: 0 sennosides-docusate sodium [Senokot-S] 8.6-50 mg tablet 1 tab-cap PO BEDTIME 30 Days Qty: 30 RF: 3
== END 2020-11-20 01:28 | disposition home or self-care (01) ==
PROVIDERS: Emergency Provider Emergency Medicine Emergency Medical Services
DX: R51.9 Headache, unspecified (principal); R07.89 Other chest pain; I10 Essential (primary) hypertension; Z20.822 Contact with and (suspected) exposure to COVID-19; Z79.899 Other long term (current) drug therapy
CPT/HCPCS: 36415; 71045; 80048; 81001; 84484; 85025; 87635; 93005; 99284

== ENCOUNTER → 2020-11-26 13:01 | Outpatient (BNVA) | payer MEDICARE, SELFPAY | PROVIDERS: PCP Family Medicine; Visit Provider Hospitalist | DX: R91.8 Other nonspecific abnormal finding of lung field (principal); J30.9 Allergic rhinitis, unspecified; J39.8 Other specified diseases of upper respiratory tract; J45.40 Moderate persistent asthma, uncomplicated; G47.33 Obstructive sleep apnea (adult) (pediatric); R05.9 Cough, unspecified | CPT/HCPCS: 99212 ==

== ENCOUNTER 2020-12-29 13:03 | Outpatient (RCR) | payer MEDICARE, SELFPAY | END 2021-03-01 07:16 | disposition home or self-care (01) | LOC: HO.PT 13:03 | PROVIDERS: PCP Family Medicine; Visit Provider Family Medicine | DX: M79.671 Pain in right foot (principal) | CPT/HCPCS: 97110; 97162 ==

== ENCOUNTER 2021-01-06 13:08 | Emergency (ER) | payer MEDICARE, SELFPAY ==
--- NOTE | ~2021-01-06 | XR_ITS ---
EXAMINATION: XR CHEST CLINICAL INFORMATION: Chest pain COMPARISON: Chest radiographs 11/19/2020, 07/14/2018 TECHNIQUE: Frontal view of the chest was obtained. FINDINGS: There is no pneumothorax or airspace consolidation or groundglass opacity. The costophrenic sulci are clear. The heart is normal in size. The vascularity is normal. No visible acute bony abnormality. XR/XR chest 1V IMPRESSION: Unremarkable examination.
--- NOTE | 2021-01-06 13:40 | PC.NURSE ---
called for metal miner to triage
[2021-01-06 13:51] VITALS: BP 151/56; PULSE 81; RESP 18; TEMP 36.7; O2SAT 98; BMI 30.2
--- NOTE | 2021-01-06 13:56 | ECG_ITS ---
Test Reason : CHEST PAIN Blood Pressure : / mmHG Vent. Rate : 057 BPM Atrial Rate : 057 BPM P-R Int : 152 ms QRS Dur : 108 ms QT Int : 448 ms P-R-T Axes : 058 -24 011 degrees QTc Int : 436 ms Sinus bradycardia Left axis deviation Nonspecific T wave abnormality Inferior leads Abnormal ECG When compared with ECG of 19-NOV-2020 21:24, Nonspecific T wave abnormality Inferior leads is new Referred By: Generic ED Physician Electronically Signed By:RYDER PERRY MD
--- NOTE | 2021-01-06 14:18 | ED_ITS ---
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 No cough, shortness of breath, fevers or chills. History of gastritis and does feel similar. Not on PPI. Of note last echo shows EF of 50 55% with mild diastolic dysfunction but otherwise normal. Last stress test showed no ischemia. Patient followed by cardiology. Related Data Home Medications Medication Instructions Recorded Confirmed clonidine 0.1 mg/24 hr weekly 1 patch TOPICAL QWEEK 12/30/19 10/21/20 transdermal patch ipratropium bromide 21 mcg (0.03 INTRANASAL 12/30/19 10/21/20 %) nasal spray latanoprost 0.005 % eye drops 1 drp OPHTHALMIC (EYE) ml 12/30/19 10/21/20 lancets (OneTouch UltraSoft #100 ea 01/06/20 10/21/20 Lancets) azelastine 137 mcg (0.1 %) nasal 2 spray INTRANASAL BID 05/20/20 10/21/20 spray aerosol lidocaine HCl 2 % mucosal solution ml PO 05/20/20 10/21/20 ketotifen fumarate 0.025 % (0.035 1 drp OPHTHALMIC (EYE) BID 06/24/20 10/21/20 %) eye drops loteprednol etabonate 0.5 % eye 1 drp OPHTHALMIC (EYE) QID 08/17/20 10/21/20 drops,suspension pen needle, diabetic 32 gauge x #50 ea 08/17/20 10/21/20 sitagliptin 100 mg tablet 100 mg PO DAILY 08/17/20 10/21/20 cholecalciferol (vitamin D3) 50 50 mcg PO DAILY 09/21/20 10/21/20 mcg (2,000 unit) tablet timolol maleate 0.5 % eye drops 1 drp OPHTHALMIC (EYE) BID 09/21/20 10/21/20 amoxicillin 875 mg-potassium 1 tab PO BID 11/26/20 clavulanate 125 mg tablet clonidine 0.2 mg/24 hr weekly 1 patch TOPICAL QWEEK 11/26/20 transdermal patch linaclotide 145 mcg capsule 145 mcg PO DAILY 11/26/20 (Linzess) sertraline 25 mg tablet 25 mg PO DAILY 11/26/20 simethicone 125 mg capsule (Gas 0 mg PO 11/26/20 Relief Extra Strength) spironolactone 25 mg tablet 25 mg PO DAILY 11/26/20 Previous Rx's Medication Instructions Recorded insulin glargine 100 unit/mL (3 35 unit (0.35 mL) SUBCUT DAILY 30 12/18/19 mL) subcutaneous pen (Lan #10.5 ml Solostar U-100 Insulin) blood sugar diagnostic (OneTouch #100 ea 01/07/20 Verio test strips) blood-glucose meter (OneTouch #1 ea 01/07/20 Verio Meter) amlodipine 10 mg tablet 10 mg PO DAILY 30 Days #30 tab 04/25/20 simethicone 80 mg chewable tablet 80 mg PO TID-QID PRN 30 Days #90 05/20/20 (Gas Relief 80 (simethicone)) tab diphenhydramine HCl 25 mg capsule 25 mg PO BEDTIME PRN 90 Days #90 06/24/20 (Benadryl) cap rosuvastatin 20 mg tablet (Crestor) 20 mg PO DAILY #30 tab 09/21/20 mirtazapine 15 mg tablet 15 mg PO BEDTIME #30 tab 09/23/20 mirabegron 25 mg tablet,extended 25 mg PO DAILY 30 Days #30 tab 10/28/20 release 24 hr (Myrbetriq) budesonide-formoterol HFA 160 2 puff INHALATION Q12H 30 Days 11/26/20 mcg-4.5 mcg/actuation aerosol #10.2 g inhaler (Symbicort) ipratropium 0.5 mg-albuterol 3 mg 3 ml INHALATION Q6H PRN #180 ml 12/01/20 (2.5 mg base)/3 mL nebulization soln albuterol sulfate 90 mcg/actuation 2 puff INHALATION Q4H PRN #8.5 g 12/27/20 aerosol inhaler Magic Mouthwash 10 ml PO QID PRN 14 Days #240 ml 12/28/20 Diphen/Lido/Antacid 1:1:1 240 mL suspension Senna Plus 8.6 mg-50 mg tablet 1 tab-cap PO BEDTIME 30 Days #30 12/28/20 (sennosides-docusate sodium) tab NS nystatin 100,000 unit/mL oral 1 ml PO BID 15 Days #30 ml 12/28/20 suspension docusate sodium 100 mg capsule 100 mg PO BID #60 cap 01/06/21 (Colace) omeprazole 40 mg capsule,delayed 40 mg PO DAILY #30 cap 01/06/21 release Allergies Allergy/AdvReac Type Severity Reaction Status Date / Time umeclidinium AdvReac Intermediate Chest Pain Verified 01/06/21 13:51 [From Incruse Ellipta] empagliflozin [Jardiance] AdvReac Unknown vaginal Verified 01/06/21 13:51 itch fluticasone [Flovent HFA] AdvReac Unknown lip Verified 01/06/21 13:51 swelling metformin AdvReac Unknown stomach Verified 01/06/21 13:51 pain sitagliptin [Januvia] AdvReac Unknown stomach Verified 01/06/21 13:51 pain motrin Allergy Unknown stomachache Uncoded 11/26/20 13:15 percocet Allergy Unknown nausea and Uncoded 11/26/20 13:15 vomiting vicodin Allergy Unknown nausea and Uncoded 11/26/20 13:15 vomiting Review of Systems Review of Systems: Yes all other systems are reviewed and are negative Constitutional: Constitutional: Reports no additional constitutional complaints, Denies body ache(s), Denies chills, Denies fever(s), Denies headache(s) and Denies weakness Eyes: Eyes: Reports no additional eye complaints and Denies change in vision ENT: Reports system reviewed and no additional complaints, except as documented, Denies dizziness, Denies headache(s), Denies nasal congestion, Denies nasal discharge and Reports neck pain Cardiovascular: Cardiovascular: Reports no additional cardiovascular complaints, Reports chest pain, Denies leg edema and Denies dyspnea Respiratory: Respiratory: Reports no additional respiratory complaints, Denies cough and Denies dyspnea Gastrointestinal: Gastrointestinal: Reports no additional gastrointestinal complaints, Denies abdominal pain, Denies diarrhea, Reports nausea and Denies vomiting Genitourinary: Genitourinary: Reports no additional female genitourinary complaints and Denies urinary incontinence Musculoskeletal: Musculoskeletal: Reports no additional musculoskeletal compla ints, Denies back pain, Denies arthralgias, Denies joint swelling, Reports neck pain, Denies numbness and Denies tingling Integumentary/Breasts: Skin/Breast: Reports system reviewed and no additional complaints, except as docu and Denies rash Neurologic: Reports system reviewed and no additional complaints, except as documented, Denies Abnormal speech present, Denies dizziness, Denies headache(s), Denies numbness, Denies tingling and Denies weakness [facility] Past Medical History Attestation statement: The following information was validated with the patient. Source: old records reviewed and nursing notes reviewed Medical History Anxiety and depression Asthma Atherosclerotic cardiovascular disease Chronic allergic rhinitis Cough Cough Diabetes mellitus Dyslipidemia Dysphagia Essential hypertension Fibromyalgia Gastric pain Obese ROXIE (obstructive sleep apnea) Pulmonary nodules Sinusitis Tracheobronchomalacia Urinary incontinence Surgical History H/O breast biopsy H/O left knee surgery H/O: hysterectomy History of bronchoscopy Hx of colonoscopy Hx of esophagogastroduodenoscopy Family History Family History Father Hypertension Mother Hypertension Diabetes Daughter Diabetes Brother No problems noted. Social History Social History Household Members: Children Alcohol intake: never Patient Tobacco Use Status: Never used Tobacco Second Hand Smoke Exposure: Yes Use of substances other than those prescribed or required for medical reasons: No Advance Directives: No Advance Directives Information Provided: Yes Physical Exam Vital Signs: Vital Signs: Last Vital Signs Temp 98.0 F 01/06/21 13:51 Pulse 74 01/06/21 14:43 Resp 14 01/06/21 14:43 BP 162/76 H 01/06/21 14:43 Pulse Ox 98 01/06/21 14:43 Body Mass Index 30.2 Const: General: cooperative, healthy appearing, comfortable and no acute distress Orientation/consciousness: patient oriented x3 Limitations: no limitations HENMT: Head: Yes normal to inspection Ears: hearing grossly normal bilaterally General nose exam: Normal external nose present Face and sinus: Yes normal facial exam Mouth: Normal oral and palatal mucosa present Throat: Yes posterior oropharynx normal Eyes: General: appearance normal, both eyes and all related structures Pupils: Equal, round and reactive pupils present Neck: Other: Tenderness over the left lateral neck with no palpable swelling, thrill or bruit Neck: Yes normal visual inspection Chest: Other: Central chest tender to palpate Chest palpation & inspection: normal inspection of the chest Resp: Effort & Inspection: normal respiratory effort Auscultation: clear to auscultation bilaterally Cardio: Rate: regular rate Rhythm: regular rhythm Peripheral pulses: Peripheral pulses 2+ throughout GI: Inspection: Yes normal to inspection Palpation (GI): Soft to palpation and nontender Auscultation: normal bowel sounds Back/Spine/Pelvis: Thoracic/Lumbar Spine: thoracic and lumbar spine normal to inspection Skin: General skin exam: no rashes or lesions noted Neuro: General: patient oriented x3, no focal motor deficits and normal sensation to monofilament Cranial nerves: Yes Equal, round and reactive pupils present Cognition (Neuro): normal cognition Speech: No Abnormal speech present Gait exam (Neuro): Normal gait present Motor exam (neuro): 5/5 motor strength present throughout Extrem: General: Yes normal to inspection, Yes no pedal edema and Yes no calf tenderness Course Course Course Narrative: 75-year-old female here with complaints of intermittent chest tightness with radiation to the neck with nausea and ?gas for the last week. O ccurs at rest. No associated shortness of breath, cough, fever, leg swelling or pain. On exam pain is more with MS. Due to age will check labs, EKG, chest x-ray. Patient requesting medication for her gas. Will give GI cocktail, ppi 1630-EKG, labs and chest x-ray are unremarkable. I re-examined the patient. She tells me her pain is resolved after receiving the above medications. Likely related to her underlying gastritis or GERD. She is also requesting a stool softener as she is no longer taking this and feels she is constipated. Abdomen is soft nontender. Reviewed worrisome signs symptoms of when to return to the emergency department. Comfortable discharge home. MDM - Chest Pain MDM Narrative Medical decision making narrative: GERD, ACS(less likely with symptoms greater than 1 week, negative troponin EKG) Medical Records Data Attestation: I reviewed the patient's medical records. Lab Data Attestation: I reviewed the patient's lab results. Result diagrams: 01/06/21 14:54 01/06/21 14:54 Labs: Lab Results 01/06/21 01/06/21 01/06/21 Range/Units 14:33 14:54 14:54 WBC 7.8 (4.8-10.8) X10*3/uL RBC 4.73 (4.20-5.50) X10*6/uL Hgb 14.0 (12.0-16.0) g/dl Hct 41.3 (37.0-47.0) % MCV 87.3 (80.0-98.0) fL MCH 29.6 (27.0-33.0) pg MCHC 33.9 (31.0-35.0) g/dl RDW 12.7 (11.0-16.0) % Plt Count 202 (160-400) X10*3/uL MPV 11.1 (9.4-12.3) fL Immature Gran % (Auto) 0.3 (0.0-0.4) % Neut % (Auto) 61.1 (45-73) % Lymph % (Auto) 29.5 (20-40) % [place] % (Auto) 7.1 (2-11) % Eos % (Auto) 1.5 (0-4) % Baso % (Auto) 0.5 (0-2) % Lymph # (Auto) 2.3 (1.2-4.9) X10*3/uL [place] # (Auto) 0.6 (0.1-1.2) X10*3/uL Eos # (Auto) 0.1 (0.0-0.4) X10*3/uL Baso # (Auto) 0.0 (0.0-0.2) X10*3/uL Abs Immat Gran (auto) 0.02 (0.00-0.03) X10*3/uL Absolute Neuts (auto) 4.8 (2.0-8.3) x10*3/uL Absolute Nucleated RBC 0.000 (0.0-0.012) X10*3/uL Nucleated RBC % (auto) 0.0 (0.0-0.2) /100WBC PT (9.9-13.0) SEC INR (0.9-1.1) Sodium 137 (135-145) mmol/L Potassium 5.0 D (3.3-5.1) mmol/L Chloride 103 (96-108) mmol/L Carbon Dioxide 24 (22-29) mmol/L Anion Gap 15 (12-20) BUN 19 H (9-16) mg/dL Creatinine 0.81 (0.5-1.4) mg/dL Estim Creat Clear Calc 50.3 Estimated GFR > 60 Random Glucose 142 H (60-115) mg/dL Calcium 9.4 (8.4-10.2) mg/dL Total Bilirubin (0.0-1.0) mg/dL Direct Bilirubin (0.0-0.5) mg/dL AST (5-31) U/L ALT (0-31) U/L Alkaline Phosphatase (39-117) U/L Troponin I High Sens (<3.5-17.0) ng/L Total Protein (6.5-8.0) g/dL Albumin (3.5-5.0) g/dL COVID-19 ([facility]) Negative (Negative) COVID-19 Clin Com See Note 01/06/21 01/06/21 01/06/21 Range/Units 14:54 14:54 14:54 WBC (4.8-10.8) X10*3/uL RBC (4.20-5.50) X10*6/uL Hgb (12.0-16.0) g/dl Hct (37.0-47.0) % MCV (80.0-98.0) fL MCH (27.0-33.0) pg MCHC (31.0-35.0) g/dl RDW (11.0-16.0) % Plt Count (160-400) X10*3/uL MPV (9.4-12.3) fL Immature Gran % (Auto) (0.0-0.4) % Neut % (Auto) (45-73) % Lymph % (Auto) (20-40) % [place] % (Auto) (2-11) % Eos % (Auto) (0-4) % Baso % (Auto) (0-2) % Lymph # (Auto) (1.2-4.9) X10*3/uL [place] # (Auto) (0.1-1.2) X10*3/uL Eos # (Auto) (0.0-0.4) X10*3/uL Baso # (Auto) (0.0-0.2) X10*3/uL Abs Immat Gran (auto) (0.00-0.03) X10*3/uL Absolute Neuts (auto) (2.0-8.3) x10*3/uL Absolute Nucleated RBC (0.0-0.012) X10*3/uL Nucleated RBC % (auto) (0.0-0.2) /100WBC PT 12.0 (9.9-13.0) SEC INR 1.1 (0.9-1.1) Sodium (135-145) mmol/L Potassium (3.3-5.1) mmol/L Chloride (96-108) mmol/L Carbon Dioxide (22-29) mmol/L Anion Gap (12-20) BUN (9-16) mg/dL Creatinine (0.5-1.4) mg/dL Estim Creat Clear Calc Estimated GFR Random Glucose (60-115) mg/dL Calcium (8.4-10.2) mg/dL Total Bilirubin 0.6 (0.0-1.0) mg/dL Direct Bilirubin 0.2 (0.0-0.5) mg/dL AST 20 (5-31) U/L ALT 28 (0-31) U/L Alkaline Phosphatase 73 (39-117) U/L Troponin I High Sens 3.6 (<3.5-17.0) ng/L Total Protein 7.2 (6.5-8.0) g/dL Albumin 4.2 (3.5-5.0) g/dL COVID-19 (YAHIR) (Negative) COVID-19 Clin Com Imaging Data Chest x-ray: Attestation: I personally reviewed and interpreted this imaging study as follows: Radiologist's impression: EXAMINATION: XR CHEST CLINICAL INFORMATION: Chest pain COMPARISON: Chest radiographs 11/19/2020, 07/14/2018 TECHNIQUE: Frontal view of the chest was obtained. FINDINGS: There is no pneumothorax or airspace consolidation or groundglass opacity. The costophrenic sulci are clear. The heart is normal in size. The vascularity is normal. No visible acute bony abnormality. XR/XR chest 1V IMPRESSION: Unremarkable examination. ? ECG Data ECG #1: Attestation: I personally reviewed and interpreted this ECG as follows: ECG interpretation date: 01/06/21 ECG interpretation time: 14:27 Interpretation: Sinus bradycardia with a rate of 57, normal MA, normal QRS, normal QT Discharge Plan Discharge Clinical Impression: Atypical chest pain, Gastritis Patient Disposition: Home, Self-Care Instructions: Gastritis (ED), Chest Wall Pain (ED) Additional Instructions: Your EKG, chest x-ray and lab work were all normal Follow-up with your regular care doctor Prescriptions: New omeprazole 40 mg capsule,delayed release(DR/EC) 40 mg PO DAILY Qty: 30 RF: 0 docusate sodium [Colace] 100 mg capsule 100 mg PO BID Qty: 60 RF: 0 No Action (DME) lancets [OneTouch UltraSoft Lancets] Misc See Rx Instructions .ROUTE .MEDSUPPLY Qty: 100 RF: 0 (DME) blood-glucose meter [OneTouch Verio Meter] Misc See Rx Instructions .ROUTE .MEDSUPPLY Qty: 1 RF: 0 (DME) OneTouch Verio test strips Strip See Rx Instructions .ROUTE .MEDSUPPLY Qty: 100 RF: 0 amlodipine 10 mg tablet 10 mg PO DAILY 30 Days Qty: 30 RF: 6 mirtazapine 15 mg tablet 15 mg PO BEDTIME Qty: 30 RF: 1 Myrbetriq 25 mg tablet extended release 24 hr 25 mg PO DAILY 30 Days Qty: 30 RF: 1 ipratropium-albuterol 0.5 mg-3 mg(2.5 mg base)/3 mL solution for nebulization 3 ml inhalation Q6H PRN (Reason: wheezing) Qty: 180 RF: 3 albuterol sulfate 90 mcg/actuation HFA aerosol inhaler 2 puff inhalation Q4H PRN (Reason: shortness of breath or wheezing) Qty: 8.5 RF: 0 sennosides-docusate sodium [Senna Plus] 8.6-50 mg tablet 1 tab-cap PO BEDTIME 30 Days Qty: 30 RF: 3 nystatin 100,000 unit/mL suspension 1 ml PO BID 15 Days Qty: 30 RF: 2 Magic Mouthwash Diphen/Lido/Antacid 1:1:1 240 mL suspension 10 ml PO QID PRN (Reason: sore throat) 14 Days Qty: 240 RF: 1 Lantus Solostar U-100 Insulin 100 unit/mL (3 mL) insulin pen 35 unit subcut DAILY 30 Days Qty: 10.5 RF: 11 Lidocaine Viscous 2 % solution PO RF: 0 azelastine 137 mcg (0.1 %) aerosol,spray 2 spray intranasal BID RF: 0 simethicone [Gas Relief 80 (simethicone)] 80 mg tablet,chewable 80 mg PO TID-QID PRN (Reason: abdominal distention) 30 Days Qty: 90 RF: 1 clonidine 0.1 mg/24 hr patch weekly 1 patch topical QWEEK RF: 0 latanoprost 0.005 % drops 1 drp ophthalmic (eye) RF: 0 ipratropium bromide 0.03 % spray,non-aerosol intranasal RF: 0 Linzess 145 mcg capsule 145 mcg PO DAILY RF: 0 simethicone [Gas Relief Extra Strength] 125 mg capsule 0 mg PO RF: 0 amoxicillin-pot clavulanate 875-125 mg tablet 1 tab PO BID RF: 0 spironolactone 25 mg tablet 25 mg PO DAILY RF: 0 sertraline 25 mg tablet 25 mg PO DAILY RF: 0 clonidine 0.2 mg/24 hr patch weekly 1 patch topical QWEEK RF: 0 budesonide-formoterol [Symbicort] 160-4.5 mcg/actuation HFA aerosol inhaler 2 puff inhalation Q12H 30 Days Qty: 10.2 RF: 11 cholecalciferol (vitamin D3) 50 mcg (2,000 unit) tablet 50 mcg PO DAILY RF: 0 timolol maleate 0.5 % drops 1 drp ophthalmic (eye) BID RF: 0 rosuvastatin [Crestor] 20 mg tablet 20 mg PO DAILY Qty: 30 RF: 5 ketotifen fumarate 0.025 % (0.035 %) drops 1 drp ophthalmic (eye) BID RF: 0 diphenhydramine HCl [Benadryl] 25 mg capsule 25 mg PO BEDTIME PRN (Reason: pruritus) 90 Days Qty: 90 RF: 1 (DME) pen needle, diabetic 32 gauge x 5/32 needle See Rx Instructions ea .ROUTE .MEDSUPPLY Qty: 50 RF: 0 Januvia 100 mg tablet 100 mg PO DAILY RF: 0 loteprednol etabonate 0.5 % drops,suspension 1 drp ophthalmic (eye) QID RF: 0 Referrals: Liset Mitchell MD [Primary Care Provider] - 2 days Interventions: ED Discharge Assessment Last Done: 01/06/21 16:26 Discharge Date/Time: 01/06/21 16:27 Print Language: Vietnamese
[2021-01-06 14:43] VITALS: BP 162/76; PULSE 74; RESP 14; O2SAT 98
[2021-01-06 14:59] LABS: COVID-19 Test Negative (Negative)
[2021-01-06] MEDS: Famotidine/PF 20 MG/2 ML VIAL IVPUSH (15:00)
[2021-01-06] MEDS: Magnesium Hydrox/Alum Hydrox 30 ML ORAL.SUSP PO (15:01)
[2021-01-06] MEDS: Lidocaine HCl Viscous 2 % 15 ML SOLUTION MUCOUS MEM (15:03)
[2021-01-06 15:04] LABS: MANUAL DIFF FLAG NO
[2021-01-06 15:05] LABS: Basophils Percent Auto 0.5 % (0-2); Eosinophils Absolute Auto 0.1 X10*3/uL (0.0-0.4); Eosinophils Percent Auto 1.5 % (0-4); Hematocrit 41.3 % (37.0-47.0); Imm Gran Abs Auto 0.02 X10*3/uL (0.00-0.03); Imm Gran Pct Auto 0.3 % (0.0-0.4); Lymphocytes Absolute Auto 2.3 X10*3/uL (1.2-4.9); Lymphocytes Percent Auto 29.5 % (20-40); Mean Corpuscular HGB Conc 33.9 g/dl (31.0-35.0); Mean Corpuscular Hemoglobin 29.6 pg (27.0-33.0); Mean Corpuscular Volume 87.3 fL (80.0-98.0); Mean Platelet Volume 11.1 fL (9.4-12.3); Monocytes Absolute Auto 0.6 X10*3/uL (0.1-1.2); Monocytes Percent Auto 7.1 % (2-11); Neutrophils Absolute Auto 4.8 x10*3/uL (2.0-8.3); Neutrophils Percent Auto 61.1 % (45-73); Platelet Count 202 X10*3/uL (160-400); Red Blood Count 4.73 X10*6/uL (4.20-5.50); Red Cell Distribution Width 12.7 % (11.0-16.0); White Blood Count 7.8 X10*3/uL (4.8-10.8)
[2021-01-06 15:12] LABS: INTERNATIONAL NORM RATIO 1.1 (0.9-1.1)
[2021-01-06 15:21] LABS: Anion Gap 15 (12-20); Blood Urea Nitrogen 19 mg/dL (9-16); Calcium 9.4 mg/dL (8.4-10.2); Carbon Dioxide 24 mmol/L (22-29); Chloride 103 mmol/L (96-108); Creatinine Clr Calc Pharmacy 50.3; Estimated Glomerular Filt Rate > 60; Glucose Random 142 mg/dL (60-115); Sodium 137 mmol/L (135-145)
[2021-01-06 15:24] LABS: Alanine Aminotransferase 28 U/L (0-31); Albumin Level 4.2 g/dL (3.5-5.0); Alkaline Phosphatase 73 U/L (39-117); Aspartate Amino Transferase 20 U/L (5-31); Bilirubin Direct 0.2 mg/dL (0.0-0.5); Bilirubin Total 0.6 mg/dL (0.0-1.0); Total Protein 7.2 g/dL (6.5-8.0)
[2021-01-06 15:26] LABS: Troponin-I High Sensitivity 3.6 ng/L (<3.5-17.0)
== END 2021-01-06 16:27 | disposition home or self-care (01) ==
PROVIDERS: Nurse Practitioner Family; Emergency Provider Emergency Medicine; PCP Family Medicine
DX: R07.89 Other chest pain (principal); K29.70 Gastritis, unspecified, without bleeding; E11.9 Type 2 diabetes mellitus without complications; I10 Essential (primary) hypertension; I25.10 Atherosclerotic heart disease of native coronary artery without angina pectoris; Z20.822 Contact with and (suspected) exposure to COVID-19
CPT/HCPCS: 36415; 71045; 80048; 80076; 84484; 85025; 85610; 87635; 93005; 96374; 99284; 99285

== ENCOUNTER 2021-01-14 12:16 | Outpatient (REF) | payer MEDICARE, SELFPAY ==
--- NOTE | ~2021-01-14 | MM_ITS ---
EXAMINATION: BONE DENSITOMETRY CLINICAL INDICATION: Personal history of other medical treatment. COMPARISON: Previous BD dated 05/12/2016 and baseline BD dated 05/05/2011. TECHNIQUE: Using a [employer] DXA System (software version: 13.1) manufactured by [employer], dual-energy x-ray absorptiometry was performed of the lumbar spine and left hip. The images are of good technical quality. Summary results are attached. FINDINGS: AP SPINE L1-L2 (excluding L3 and L4): The data of L1-L4 has been changed to exclude the L3 and L4 vertebral bodies, because degenerative changes at these levels may cause overestimation of lumbar spine density. Current: BMD 1.306 g/cm2, Z-score 2.6, T-score 1.2, normal, 2.8% increase from previous, 3.7% increase from baseline (<5% change is not significant). Prior: BMD 1.271 g/cm2. Baseline: BMD 1.259 g/cm2. LEFT FEMUR, NECK: Current: BMD 0.934 g/cm2, Z-score 1.0, T-score -0.7, normal. Prior: BMD 0.952 g/cm2. Baseline: BMD 0.978 g/cm2. LEFT FEMUR, TOTAL: Current: BMD 1.054 g/cm2, Z-score 1.9, T-score 0.4, normal, 3.8% decrease from previous, 5.8% decrease from baseline (<5% change is not significant). Prior: BMD 1.096 g/cm2. Baseline: BMD 1.119 g/cm2. IDENTIFIED RISK FACTORS: Early menopause, secondary osteoporosis, height loss. HISTORY OF FRACTURE: None listed. MEDICATIONS: Vitamin D. MM/XR DEXA axial skeleton IMPRESSION: 1. DIAGNOSIS: Normal bone density based on the lowest T-score value of -0.7 in the femoral neck applying World Health Organization criteria. 2. 10-YEAR FRACTURE RISK PREDICTION, FRAX: Major osteoporotic fracture (clinical spine, forearm, hip or shoulder) 4.8%. Hip fracture 0.6%. 3. Treatment Recommendations: NOF guidelines recommend consideration for treatment in postmenopausal women and men age 50 and older presenting with the following: -A hip or vertebral (clinical or morphometric) fracture. -T-score less than or equal to -2.5 at the femoral neck or spine after appropriate evaluation to exclude secondary causes. -Low bone mass at the hip or spine and a 10-year fracture probability by FRAX of greater than or equal to 3% for hip fracture or greater than or equal to 20% for major osteoporotic fracture based on the [place] adapted WHO algorithm. 4. Other Recommendations: All treatment decisions require clinical judgment and consideration of individual patient factors, including patient preferences, comorbidities, previous drug use, risk factors not captured in the FRAX model (e.g. frailty, falls, vitamin D deficiency, increased bone turnover, interval significant decline in bone density) and possible under or overestimation of fracture risk by FRAX. FUTURE SCAN RECOMMENDATION: People with diagnosed cases of osteoporosis or at high risk for fracture should have regular bone mineral density tests. For patients eligible for Medicare, routine testing is allowed once every 2 years. The testing frequency can be increased to one year for patients who have rapidly progressing disease, those who are receiving or discontinuing medical therapy to restore bone mass, or have additional risk factors.
--- NOTE | ~2021-01-14 | MM_ITS ---
EXAMINATION: MM SCREENING DIGITAL BREAST TOMOSYNTHESIS, BILATERAL CLINICAL INFORMATION: Screening. Asymptomatic. The lifetime risk of breast cancer based on the Tyrer-Cuzick Model is 2%. COMPARISON: Mammography: 05/02/2018, 07/07/2016, 05/08/2015 TECHNIQUE: Digital breast tomosynthesis is performed in both the craniocaudal and mediolateral oblique views along with computer-aided detection (CAD). Synthesized 2D images are generated from the tomosynthesis. Additional left MLO view is provided. FINDINGS: There are scattered areas of fibroglandular density (ACR BI-RADS breast composition Category b). There are no significant masses, abnormal calcifications, or other abnormalities. There is a biopsy clip marker overlying stable nodule right breast posterior upper outer quadrant. No significant changes. MM/MM tomosynthesis screening BI IMPRESSION: No mammographic evidence of malignancy. ASSESSMENT: BI-RADS 2: Benign RECOMMENDATION: Routine annual mammography screening. This patient's information was entered into a reminder system with a target due date for their next mammogram.
== END 2021-01-14 12:17 | disposition home or self-care (01) ==
LOC: HO.MAMMO 12:16
PROVIDERS: Visit Provider Family Medicine
DX: Z12.31 Encounter for screening mammogram for malignant neoplasm of breast (principal); Z13.820 Encounter for screening for osteoporosis; Z78.0 Asymptomatic menopausal state; Z79.899 Other long term (current) drug therapy
CPT/HCPCS: 77063; 77067; 77080

== ENCOUNTER → 2021-01-19 12:08 | Outpatient (BNVA) | payer MEDICARE, SELFPAY | PROVIDERS: PCP Family Medicine; Visit Provider Hospitalist | DX: J45.40 Moderate persistent asthma, uncomplicated (principal); J30.9 Allergic rhinitis, unspecified; J39.8 Other specified diseases of upper respiratory tract; G47.33 Obstructive sleep apnea (adult) (pediatric); R05.9 Cough, unspecified; R91.8 Other nonspecific abnormal finding of lung field | CPT/HCPCS: 99212 ==

== ENCOUNTER → 2021-01-24 08:12 | Outpatient (BNVA) | payer MEDICARE, SELFPAY | PROVIDERS: Referring Provider Family Medicine; Visit Provider Internal Medicine Gastroenterology | DX: K59.09 Other constipation (principal); K92.89 Other specified diseases of the digestive system; Z12.11 Encounter for screening for malignant neoplasm of colon; K31.84 Gastroparesis; E11.43 Type 2 diabetes mellitus with diabetic autonomic (poly)neuropathy; E11.8 Type 2 diabetes mellitus with unspecified complications; N81.4 Uterovaginal prolapse, unspecified; R13.10 Dysphagia, unspecified | CPT/HCPCS: 99212 ==

== ENCOUNTER 2021-06-27 13:01 | Outpatient (REF) | payer MEDICARE, SELFPAY ==
--- NOTE | ~2021-06-27 | CT_ITS ---
EXAMINATION: CT CHEST WITHOUT CONTRAST CLINICAL INFORMATION: Follow-up pulmonary nodules COMPARISON: Previous chest CT most recent April 2020 TECHNIQUE: Multidetector volumetric CT imaging of the chest was done. Axial MIP volume rendering provided. Sagittal and coronal reformatted images were obtained. This CT examination was performed using dose optimization techniques as appropriate, variously including the following: *Automated exposure control *Adjustment of mA and/or kV according to patient size (this includes techniques or standardized protocols for targeted exams where dose is matched to indication/reason for exam; i.e. extremities or head) *Use of iterative reconstruction technique DLP: 141 mGy-cm FINDINGS: LUNGS: The bilateral calcified and noncalcified pulmonary nodules are stable. Largest right pulmonary nodule is a 6 mm calcified right lower lobe nodule axial image 337 series 5. Largest left pulmonary nodule is a 5 x 9 mm lingular noncalcified nodule axial image 347 series 5. No new pulmonary nodules are seen. There are increased peripheral markings in the anterior right upper and right middle lobe, question related to previous chest wall radiation. The lungs are otherwise clear. MEDIASTINUM: There is evidence of atherosclerotic disease and coronary artery calcification. The mediastinum is otherwise normal. PLEURA: There is no pleural effusion. No pleural mass or thickening. AXILLA: No lymphadenopathy. UPPER ABDOMEN: Unremarkable. OSSEOUS STRUCTURES: There are degenerative changes of the spine. There is a lucent lesion with loss of height at T11 vertebral body that is stable. CT/CT chest wo con IMPRESSION: Stable pulmonary nodules. Fleischner guidelines were followed.
== END 2021-06-27 13:02 | disposition home or self-care (01) ==
LOC: HO.CT 13:01
PROVIDERS: Visit Provider Hospitalist
DX: R91.8 Other nonspecific abnormal finding of lung field (principal)
CPT/HCPCS: 71250

== ENCOUNTER 2021-06-28 09:50 | Emergency (ER) | payer OTHER, SELFPAY ==
[2021-06-28 10:02] VITALS: BP 114/63; PULSE 72; RESP 19; TEMP 36.6; O2SAT 98; BMI 29.9
--- NOTE | 2021-06-28 10:10 | ECG_ITS ---
Test Reason : cp Blood Pressure : / mmHG Vent. Rate : 066 BPM Atrial Rate : 066 BPM P-R Int : 170 ms QRS Dur : 090 ms QT Int : 406 ms P-R-T Axes : 051 -37 002 degrees QTc Int : 425 ms Normal sinus rhythm Left axis deviation Minimal voltage criteria for LVH, may be normal variant ( [place] product ) Inferior infarct , age undetermined Abnormal ECG When compared with ECG of 06-JAN-2021 14:27, Inferior infarct is now Present Referred By: Generic ED Physician Electronically Signed By:LALITHA PARMAR MD
[2021-06-28 10:25] LABS: MANUAL DIFF FLAG NO
[2021-06-28 10:28] LABS: Basophils Absolute Auto 0.1 X10*3/uL (0.0-0.2); Eosinophils Absolute Auto 0.2 X10*3/uL (0.0-0.4); Eosinophils Percent Auto 2.1 % (0-4); Hematocrit 42.8 % (37.0-47.0); Hemoglobin 14.7 g/dl (12.0-16.0); Imm Gran Abs Auto 0.04 X10*3/uL (0.00-0.03); Imm Gran Pct Auto 0.6 % (0.0-0.4); Lymphocytes Absolute Auto 1.9 X10*3/uL (1.2-4.9); Lymphocytes Percent Auto 26.8 % (20-40); Mean Corpuscular HGB Conc 34.3 g/dl (31.0-35.0); Mean Corpuscular Hemoglobin 30.6 pg (27.0-33.0); Monocytes Absolute Auto 0.4 X10*3/uL (0.1-1.2); Monocytes Percent Auto 6.2 % (2-11); Neutrophils Absolute Auto 4.5 x10*3/uL (2.0-8.3); Neutrophils Percent Auto 63.3 % (45-73); Platelet Count 212 X10*3/uL (160-400); Red Blood Count 4.81 X10*6/uL (4.20-5.50); Red Cell Distribution Width 12.4 % (11.0-16.0); White Blood Count 7.1 X10*3/uL (4.8-10.8)
[2021-06-28 10:44] LABS: Anion Gap 12 (12-20); Blood Urea Nitrogen 22 mg/dL (9-16); Carbon Dioxide 27 mmol/L (22-29); Chloride 102 mmol/L (96-108); Creatinine Clr Calc Pharmacy 40.9; Estimated Glomerular Filt Rate 55; Glucose Random 178 mg/dL (60-115); Potassium 4.6 mmol/L (3.3-5.1); Sodium 136 mmol/L (135-145)
[2021-06-28 10:51] LABS: Troponin-I High Sensitivity 3.5 ng/L (<3.5-17.0)
[2021-06-28 16:02] LABS: Glucose, Whole Blood 132 mg/dL (60-115)
== END 2021-06-28 16:45 | disposition left against medical advice (07) ==
LOC: HO.ED 17:09
PROVIDERS: Emergency Provider Emergency Medicine; PCP Family Medicine
DX: R07.89 Other chest pain (principal); I10 Essential (primary) hypertension; Z79.899 Other long term (current) drug therapy
CPT/HCPCS: 36415; 80048; 82947; 84484; 85025; 93005; 99283

== ENCOUNTER 2021-06-28 19:07 | Emergency (ER) | payer OTHER, SELFPAY ==
--- NOTE | ~2021-06-28 | XR_ITS ---
EXAMINATION: XR CHEST CLINICAL INFORMATION: Chest pain COMPARISON: Chest x-ray 01/06/2021. Right shoulder 08/14/2019 TECHNIQUE: Frontal portable view of the chest was obtained. 8:00 PM FINDINGS: Lungs are clear. No pulmonary vascular congestion. There is no pleural effusion. The heart size is normal. The cardiac and mediastinal contours are normal. There are calcifications of the thoracic aorta. There are multilevel degenerative changes of dorsal spine. Degenerative joint disease of the shoulders bilateral at the glenohumeral joint. Soft tissue calcification adjacent to the right humeral head consistent with calcific tendinosis /bursitis. This is similar to the right shoulder radiograph 08/14/2019. XR/XR chest 1V IMPRESSION: No acute abnormality of the chest.
--- NOTE | ~2021-06-28 | CT_ITS ---
EXAMINATION: CT ANGIOGRAM OF THE CHEST WITH AND WITHOUT CONTRAST (CT PULMONARY ANGIOGRAM FOR PE) CLINICAL INFORMATION: Reason for Exam cp , slightlly elevated dimer COMPARISON: Previous chest x-ray was recent from yesterday and chest CT from yesterday TECHNIQUE: Prior to contrast administration, noncontrast localization images were obtained. Subsequently, multidetector volumetric imaging was performed from the thoracic inlet to below the diaphragms following the administration of 59 mL Omnipaque 350 intravenous contrast. No contrast reaction reported Sagittal, coronal, and MIP oblique sagittal reformatted images were obtained on the CT workstation, uploaded to PACS, and reviewed. This CT examination was performed using dose optimization techniques as appropriate, variously including the following: *Automated exposure control *Adjustment of mA and/or kV according to patient size (this includes techniques or standardized protocols for targeted exams where dose is matched to indication/reason for exam; i.e. extremities or head) *Use of iterative reconstruction technique Total exam dose-length product 312 mGy-cm FINDINGS: QUALITY OF STUDY/CONTRAST BOLUS: Satisfactory. PULMONARY ARTERIES: No central or segmental pulmonary emboli. THORACIC AORTA: No aneurysm or dissection. LUNG: There are bilateral pulmonary nodules that are unchanged from yesterday's exam. Increased peripheral interstitial markings in the anterior right upper and right middle lobe questionable for changes from chest wall radiation. The lungs are otherwise clear. PLEURA: No pleural effusion or pneumothorax. MEDIASTINUM: Normal heart size. No pericardial effusion. Coronary artery calcification. No hilar or mediastinal lymphadenopathy. No evidence of septal bowing or right heart strain. CHEST WALL/AXILLA: No enlarged axillary lymph nodes.. OSSEOUS STRUCTURES: There are degenerative changes of the spine. There is a lucent lesion with loss of height of T11 vertebral body that is stable. UPPER ABDOMEN: Unremarkable. No reflux of contrast into the hepatic veins to suggest elevated right heart pressures. CT/CT angio chest PE protocol IMPRESSION: No evidence of pulmonary embolism. Stable pulmonary nodules. VTE: negative
[2021-06-28 19:23] VITALS: BP 178/60; BP 180/98; PULSE 56; PULSE 60; RESP 16; TEMP 37; O2SAT 98; O2SAT 99; BMI 30.7
--- NOTE | 2021-06-28 19:29 | ECG_ITS ---
Test Reason : Chest pain Blood Pressure : / mmHG Vent. Rate : 054 BPM Atrial Rate : 054 BPM P-R Int : 178 ms QRS Dur : 110 ms QT Int : 444 ms P-R-T Axes : 055 -39 006 degrees QTc Int : 421 ms Sinus bradycardia Left axis deviation Minimal voltage criteria for LVH, may be normal variant ( [place] product ) Abnormal ECG When compared with ECG of 28-JUN-2021 10:09, No significant change was found Referred By: Zaki Sims Electronically Signed By:LALITHA PARMAR MD
--- NOTE | 2021-06-28 19:46 | ED_ITS ---
HPI - Chest Pain General Chief Complaint: Chest Pain Stated Complaint: chest pain Time Seen by Provider: 06/28/21 19:29 Source: patient Mode of arrival: ambulatory Limitations: no limitations History of Present Illness HPI narrative: This is a 75-year-old female coronary disease, diabetes, hypertension, hyperlipidemia, fibromyalgia, anxiety, depression, asthma, tracheal bronchomalacia, gastritis/GERD here with complaints of intermittent chest pain since this morning when she 1st woke up. Patient reports that the chest pain is intermittent in nature she tells me it hurts a little , she also reports left arm numbness and associated nausea. She tells me that she came to the emergency department to be evaluated this morning however she decided to leave because it was taking too long. Patient tells me she has had chest pain like this before. She tells me she went to her primary care provider at [facility] who tells her that she is having a heart attack. Patient denies shortness of breath, vomiting, abdominal pain, diaphoresis, stabbing pain, leg swelling, calf pain, fevers, chills. MD complaint: chest pain Onset (ago): day(s) (1) Timing of current episode: episodic Prior episodes: Yes Onset: during rest Pain location: substernal Pain radiation: none Severity: moderate Quality: sharp Relieving factors: nothing Exacerbating factors: nothing Associated symptoms: nausea Treatment prior to arrival: none Related Data Home Medications Medication Instructions Recorded Confirmed clonidine 0.1 mg/24 hr weekly 1 patch TOPICAL QWEEK 12/30/19 01/24/21 transdermal patch ipratropium bromide 21 mcg (0.03 INTRANASAL 12/30/19 01/24/21 %) nasal spray lancets (OneTouch UltraSoft #100 ea 01/06/20 01/24/21 Lancets) lidocaine HCl 2 % mucosal solution ml PO 05/20/20 01/24/21 ketotifen fumarate 0.025 % (0.035 1 drp OPHTHALMIC (EYE) BID 06/24/20 01/24/21 %) eye drops loteprednol etabonate 0.5 % eye 1 drp OPHTHALMIC (EYE) QID 08/17/20 01/24/21 drops,suspension pen needle, diabetic 32 gauge x #50 ea 08/17/20 01/24/21 sitagliptin 100 mg tablet 100 mg PO DAILY 08/17/20 01/24/21 cholecalciferol (vitamin D3) 50 50 mcg PO DAILY 09/21/20 01/24/21 mcg (2,000 unit) tablet timolol maleate 0.5 % eye drops 1 drp OPHTHALMIC (EYE) BID 09/21/20 01/24/21 linaclotide 145 mcg capsule 145 mcg PO DAILY 11/26/20 01/24/21 (Linzess) sertraline 25 mg tablet 25 mg PO DAILY 11/26/20 01/24/21 simethicone 125 mg capsule (Gas 0 mg PO 11/26/20 01/24/21 Relief Extra Strength) spironolactone 25 mg tablet 25 mg PO DAILY 11/26/20 01/24/21 metoclopramide HCl 5 mg tablet 5 mg PO QID 01/19/21 01/24/21 Previous Rx's Medication Instructions Recorded insulin glargine 100 unit/mL (3 35 unit (0.35 mL) SUBCUT DAILY 30 12/18/19 mL) subcutaneous pen ( Days #10.5 ml Solostar U-100 Insulin) blood sugar diagnostic (OneTouch #100 ea 01/07/20 Verio test strips) blood-glucose meter (OneTouch #1 ea 01/07/20 Verio Meter) amlodipine 10 mg tablet 10 mg PO DAILY 30 Days #30 tab 04/25/20 diphenhydramine HCl 25 mg capsule 25 mg PO BEDTIME PRN 90 Days #90 06/24/20 (Benadryl) cap rosuvastatin 20 mg tablet (Crestor) 20 mg PO DAILY #30 tab 09/21/20 mirtazapine 15 mg tablet 15 mg PO BEDTIME #30 tab 09/23/20 mirabegron 25 mg tablet,extended 25 mg PO DAILY 30 Days #30 tab 10/28/20 release 24 hr (Myrbetriq) Senna Plus 8.6 mg-50 mg tablet 1 tab-cap PO BEDTIME 30 Days #30 12/28/20 (sennosides-docusate sodium) tab NS nystatin 100,000 unit/mL oral 1 ml PO BID 15 Days #30 ml 12/28/20 suspension omeprazole 40 mg capsule,delayed 40 mg PO DAILY #30 cap 01/06/21 release azelastine 137 mcg (0.1 %) nasal 2 spray INTRANASAL BID 30 Days #30 01/19/21 spray aerosol ml linaclotide 72 mcg capsule 72 mcg PO DAILY 30 Days #30 cap 01/24/21 (Linzess) sennosides 8.6 mg-docusate sodium 1 tab-cap PO BEDTIME 30 Days #30 01/24/21 50 mg capsule (Senna Plus) cap Magic Mouthwash 10 ml PO QID PRN 14 Days #240 ml 01/25/21 Diphen/Lido/Antacid 1:1:1 240 mL suspension fluticasone propionate 115 2 puff INHALATION Q12H 30 Days #12 01/25/21 mcg-salmeterol 21 mcg/actuation g HFA inhaler (Advair HFA) inhalational spacing device #1 ea 01/25/21 (Aerochamber MV) albuterol sulfate 90 mcg/actuation 2 puff PO Q4H PRN #18 ea 02/07/21 aerosol inhaler (Ventolin HFA) ipratropium 0.5 mg-albuterol 3 mg 3 ml INHALATION Q6H PRN #180 ml 02/08/21 (2.5 mg base)/3 mL nebulization soln cefuroxime axetil 250 mg tablet 250 mg PO BID 7 Days #14 tab 06/29/21 Allergies Allergy/AdvReac Type Severity Reaction Status Date / Time umeclidinium AdvReac Intermediate Chest Pain Verified 01/24/21 08:51 [From Incruse Ellipta] empagliflozin [Jardiance] AdvReac Unknown vaginal Verified 01/24/21 08:51 itch fluticasone [Flovent HFA] AdvReac Unknown lip Verified 01/24/21 08:51 swelling metformin AdvReac Unknown stomach Verified 01/24/21 08:51 pain sitagliptin [Januvia] AdvReac Unknown stomach Verified 01/24/21 08:51 pain motrin Allergy Unknown stomachache Uncoded 01/19/21 12:27 percocet Allergy Unknown nausea and Uncoded 01/19/21 12:27 vomiting vicodin Allergy Unknown nausea and Uncoded 01/19/21 12:27 vomiting Review of Systems Review of Systems: Constitutional : No Weight loss, No Fever, No Chills, No Fatigue, No Malaise ENT/Mouth : No sore throat, No Rhinorrhea Eyes: No Eye Pain, No Swelling, No Redness Cardiovascular : + Chest Pain, No SOB, No Dyspnea on Exertion, No Orthopnea, No Edema, No Palpitations Respiratory : No Cough, No Sputum, No Wheezing Gastrointestinal : No Nausea, No Vomiting, No Diarrhea, No Constipation, No abdominal Pain, No Hematochezia, No Melena Genitourinary : No Dysuria, No Urinary Frequency, No Hematuria, Musculoskeletal : No joint pain, No Myalgias, No Joint Swelling Skin : No Skin Lesions, No rash Neuro : No Weakness, No Numbness, No Dizziness, No Headache Psych : No Anxiety/Panic, No Depression All other systems reviewed and are negative Yes all other systems are reviewed and are negative [facility] Past Medical History Attestation statement: The following information was validated with the patient. Source: old records reviewed and nursing notes reviewed Medical History Anxiety and depression Asthma Atherosclerotic cardiovascular disease Chronic allergic rhinitis Cough Cough Diabetes mellitus Dyslipidemia Dysphagia Essential hypertension Fibromyalgia Gastric pain Obese ROXIE (obstructive sleep apnea) Pulmonary nodules Sinusitis Tracheobronchomalacia Urinary incontinence Surgical History H/O breast biopsy H/O left knee surgery H/O: hysterectomy History of bronchoscopy Hx of colonoscopy Hx of esophagogastroduodenoscopy Family History Family History Father Hypertension Mother Hypertension Diabetes Daughter Diabetes Brother No problems noted. Social History Social History Household Members: Children Alcohol intake: never Patient Tobacco Use Status: Never used Tobacco Second Hand Smoke Exposure: Yes Advance Directives: No Advance Directives Information Provided: No Physical Exam Vital Signs: Vital Signs: Last Vital Signs Temp 98.6 F 06/28/21 19:23 Pulse 57 06/28/21 22:04 Resp 12 06/28/21 22:04 BP 164/68 H 06/28/21 22:04 Pulse Ox 97 06/28/21 22:04 BMI result Body Mass Index 30.7 Vital signs stable Appearance: Alert.? Oriented X3.? No acute distress.? Head: Normocephalic, atraumatic, no step-offs or deformities Eyes: Pupils equal, round and reactive to light.? ENT: Pharynx normal.? Neck: Normal inspection.? Neck supple.? CVS: Normal heart rate and rhythm.? Pulses normal.? Respiratory: No respiratory distress.? Breath sounds normal.? Abdomen: Soft and nontender.? Skin: Skin warm and dry.? Normal skin color.? Normal skin turgor.? Extremities: No lower extremity edema.? No calf ttp. 5/5 strength to bilateral upper and lower extremities Back: No midline tenderness, no C-spine tenderness, full range of motion, no CVA tenderness bilaterally Neuro: Oriented X 3.? No motor deficit.? No sensory deficit. CN 2-12 intact Course Reevaluation(s) Reevaluation #1: Patient's CBC within normal limits. Chemistry with no acute electrolyte abnormalities requiring intervention. BNP within normal limits. Troponin 5, EKG with no evidence signs of ischemia, unlikely that this is ACS, will repeat at 2255. COVID negative. Time: 20:00 Reevaluation #2: CTA with no acute findings, she was incidentally noted to have a pulmonary nodule, patient educated on this. Trop initially 5 then 5.4 pataient reports chest pain isnt present at this time. Discused cased with Dr. Myles. Advised her to return with new or worsening symptoms. Unlikely that this is ACS, unlikely PE. I will have her follow up with Cardiology, provide them with cardiology fo llow-up. Comfortable with discharge home with strict return precautions Time: 23:39 MDM - Chest Pain [facility] Narrative Medical decision making narrative: 2010 75-year-old female presents for the evaluation of intermittent chest pain since this morning. Patient tells me she was told by her PCP that she was having heart attack Physical exam benign. Negative Nhi bilaterally. No lower extremity edema. Plan at this time labs, imaging, EKG, troponin, D-dimer, UA, chest x-ray. Will rule out PE, ACS. Based off patient history and physical examination unlikely that this is a dissection Medical Records Data Attestation: I reviewed the patient's medical records. Lab Data Attestation: I reviewed the patient's lab results. Result diagrams: 06/28/21 19:55 06/28/21 19:55 Labs: Lab Results 06/28/21 06/28/21 06/28/21 Range/Units 19:54 19:54 19:55 WBC 9.6 (4.8-10.8) X10*3/uL RBC 4.92 (4.20-5.50) X10*6/uL Hgb 14.8 (12.0-16.0) g/dl Hct 42.6 (37.0-47.0) % MCV 86.6 (80.0-98.0) fL MCH 30.1 (27.0-33.0) pg MCHC 34.7 (31.0-35.0) g/dl RDW 12.3 (11.0-16.0) % Plt Count 216 (160-400) X10*3/uL MPV 11.0 (9.4-12.3) fL Immature Gran % (Auto) 0.3 (0.0-0.4) % Neut % (Auto) 55.3 (45-73) % Lymph % (Auto) 34.9 (20-40) % Price % (Auto) 7.1 (2-11) % Eos % (Auto) 1.9 (0-4) % Baso % (Auto) 0.5 (0-2) % Lymph # (Auto) 3.3 (1.2-4.9) X10*3/uL Price # (Auto) 0.7 (0.1-1.2) X10*3/uL Eos # (Auto) 0.2 (0.0-0.4) X10*3/uL Baso # (Auto) 0.1 (0.0-0.2) X10*3/uL Abs Immat Gran (auto) 0.03 (0.00-0.03) X10*3/uL Absolute Neuts (auto) 5.3 (2.0-8.3) x10*3/uL Absolute Nucleated RBC 0.000 (0.0-0.012) X10*3/uL Nucleated RBC % (auto) 0.0 (0.0-0.2) /100WBC D-Dimer High Sensitivty NG/ML Sodium (135-145) mmol/L Potassium (3.3-5.1) mmol/L Chloride (96-108) mmol/L Carbon Dioxide (22-29) mmol/L Anion Gap (12-20) BUN (9-16) mg/dL Creatinine (0.5-1.4) mg/dL Estim Creat Clear Calc Estimated GFR POC Glucose (60-115) mg/dL Random Glucose (60-115) mg/dL Calcium (8.4-10.2) mg/dL Magnesium (1.6-2.6) mg/dL Total Bilirubin (0.0-1.0) mg/dL AST (5-31) U/L ALT (0-31) U/L Alkaline Phosphatase (39-117) U/L Troponin I High Sens 5.0 (<3.5-17.0) ng/L B-Natriuretic Peptide 21 (<100) pg/mL Total Protein (6.5-8.0) g/dL Albumin (3.5-5.0) g/dL Urine Color Urine Appearance Urine pH (5.0-8.0) Ur Specific Stevenson (1.005-1.025) Urine Protein (NEG-TRACE) MG/DL Urine Glucose (UA) (NEG) MG/DL Urine Ketones (NEG) MG/DL Urine Blood (NEG) Urine Nitrite (NEG) Ur Leukocyte Esterase (NEG) Urine RBC (0) /HPF Urine WBC (0-4) /HPF Ur Squamous Epith Cells /LPF Urine Bacteria /LPF COVID-19 (Y[facility]IR) Negative (Negative) COVID-19 Clin Com See Note 06/28/21 06/28/21 06/28/21 Range/Units 19:55 19:59 20:53 WBC (4.8-10.8) X10*3/uL RBC (4.20-5.50) X10*6/uL Hgb (12.0-16.0) g/dl Hct (37.0-47.0) % MCV (80.0-98.0) fL MCH (27.0-33.0) pg MCHC (31.0-35.0) g/dl RDW (11.0-16.0) % Plt Count (160-400) X10*3/uL MPV (9.4-12.3) fL Immature Gran % (Auto) (0.0-0.4) % Neut % (Auto) (45-73) % Lymph % (Auto) (20-40) % Price % (Auto) (2-11) % Eos % (Auto) (0-4) % Baso % (Auto) (0-2) % Lymph # (Auto) (1.2-4.9) X10*3/uL Price # (Auto) (0.1-1.2) X10*3/uL Eos # (Auto) (0.0-0.4) X10*3/uL Baso # (Auto) (0.0-0.2) X10*3/uL Abs Immat Gran (auto) (0.00-0.03) X10*3/uL Absolute Neuts (auto) (2.0-8.3) x10*3/uL Absolute Nucleated RBC (0.0-0.012) X10*3/uL Nucleated RBC % (auto) (0.0-0.2) /100WBC D-Dimer High Sensitivty 251 NG/ML Sodium 137 (135-145) mmol/L Potassium 3.7 (3.3-5.1) mmol/L Chloride 102 (96-108) mmol/L Carbon Dioxide 25 (22-29) mmol/L Anion Gap 14 (12-20) BUN 19 H (9-16) mg/dL Creatinine 0.95 (0.5-1.4) mg/dL Estim Creat Clear Calc 43.2 Estimated GFR 57 POC Glucose (60-115) mg/dL Random Glucose 159 H (60-115) mg/dL Calcium 9.9 (8.4-10.2) mg/dL Magnesium 1.9 (1.6-2.6) mg/dL Total Bilirubin 0.7 (0.0-1.0) mg/dL AST 20 (5-31) U/L ALT 20 (0-31) U/L Alkaline Phosphatase 60 (39-117) U/L Troponin I High Sens (<3.5-17.0) ng/L B-Natriuretic Peptide (<100) pg/mL Total Protein 7.5 (6.5-8.0) g/dL Albumin 4.2 (3.5-5.0) g/dL Urine Color YELLOW Urine Appearance CLEAR Urine pH 6.0 (5.0-8.0) Ur Specific Stevenson <= 1.005 (1.005-1.025) Urine Protein NEG (NEG-TRACE) MG/DL Urine Glucose (UA) NEG (NEG) MG/DL Urine Ketones NEG (NEG) MG/DL Urine Blood NEG (NEG) Urine Nitrite NEG (NEG) Ur Leukocyte Esterase 3+ H (NEG) Urine RBC 0 (0) /HPF Urine WBC 5-9 H (0-4) /HPF Ur Squamous Epith Cells 1+ /LPF Urine Bacteria 1+ /LPF COVID-19 ([facility]) (Negative) COVID-19 Clin Com 06/28/21 06/28/21 Range/Units 22:56 23:20 WBC (4.8-10.8) X10*3/uL RBC (4.20-5.50) X10*6/uL Hgb (12.0-16.0) g/dl Hct (37.0-47.0) % MCV (80.0-98.0) fL MCH (27.0-33.0) pg MCHC (31.0-35.0) g/dl RDW (11.0-16.0) % Plt Count (160-400) X10*3/uL MPV (9.4-12.3) fL Immature Gran % (Auto) (0.0-0.4) % Neut % (Auto) (45-73) % Lymph % (Auto) (20-40) % Price % (Auto) (2-11) % Eos % (Auto) (0-4) % Baso % (Auto) (0-2) % Lymph # (Auto) (1.2-4.9) X10*3/uL Price # (Auto) (0.1-1.2) X10*3/uL Eos # (Auto) (0.0-0.4) X10*3/uL Baso # (Auto) (0.0-0.2) X10*3/uL Abs Immat Gran (auto) (0.00-0.03) X10*3/uL Absolute Neuts (auto) (2.0-8.3) x10*3/uL Absolute Nucleated RBC (0.0-0.012) X10*3/uL Nucleated RBC % (auto) (0.0-0.2) /100WBC D-Dimer High Sensitivty NG/ML Sodium (135-145) mmol/L Potassium (3.3-5.1) mmol/L Chloride (96-108) mmol/L Carbon Dioxide (22-29) mmol/L Anion Gap (12-20) BUN (9-16) mg/dL Creatinine (0.5-1.4) mg/dL Estim Creat Clear Calc Estimated GFR POC Glucose 106 (60-115) mg/dL Random Glucose (60-115) mg/dL Calcium (8.4-10.2) mg/dL Magnesium (1.6-2.6) mg/dL Total Bilirubin (0.0-1.0) mg/dL AST (5-31) U/L ALT (0-31) U/L Alkaline Phosphatase (39-117) U/L Troponin I High Sens 5.4 (<3.5-17.0) ng/L B-Natriuretic Peptide (<100) pg/mL Total Protein (6.5-8.0) g/dL Albumin (3.5-5.0) g/dL Urine Color Urine Appearance Urine pH (5.0-8.0) Ur Specific Stevenson (1.005-1.025) Urine Protein (NEG-TRACE) MG/DL Urine Glucose (UA) (NEG) MG/DL Urine Ketones (NEG) MG/DL Urine Blood (NEG) Urine Nitrite (NEG) Ur Leukocyte Esterase (NEG) Urine RBC (0) /HPF Urine WBC (0-4) /HPF Ur Squamous Epith Cells /LPF Urine Bacteria /LPF COVID-19 (Y[facility]) (Negative) COVID-19 Clin Com Critical Care Time Critical Care Time Critical Care Time: No Discharge Plan Discharge Clinical Impression: Chest pain not due to acute coronary syndrome, UTI (urinary tract infection) Patient Disposition: Home, Self-Care Instructions: Chest Pain (ED) Additional Instructions: Take your medications as prescribed. If you were prescribed antibiotics today, it is important that you take your medication to their entirety, do not skip any doses, do not finish them early. Follow-up with your primary care provider this week. Please follow up with Cardiology Return to the emergency department with new or worsening symptoms. Such as fevers, chills, chest pain, shortness of breath, nausea, vomiting, dizziness, headache, vision changes, lethargy In case of emergency call 911 CT/CT angio chest PE protocol IMPRESSION: No evidence of pulmonary embolism. Stable pulmonary nodules. ? VTE: negative XR/XR chest 1V IMPRESSION: No acute abnormality of the chest. Your cardiac enzyme were negative. Please follow up with cardiology. Prescriptions: New cefuroxime axetil 250 mg tablet 250 mg PO BID 7 Days Qty: 14 0RF No Action (DME) lancets [OneTouch UltraSoft Lancets] Misc See Rx Instructions .ROUTE .MEDSUPPLY Qty: 100 0RF Rx Instructions: As directed (DME) blood-glucose meter [OneTouch Verio Meter] Misc See Rx Instructions .ROUTE .MEDSUPPLY Qty: 1 0RF Rx Instructions: As directed (DME) OneTouch Verio test strips Strip See Rx Instructions .ROUTE .MEDSUPPLY Qty: 100 0RF Rx Instructions: As directed amlodipine 10 mg tablet 10 mg PO DAILY 30 Days Qty: 30 6RF mirtazapine 15 mg tablet 15 mg PO BEDTIME Qty: 30 1RF Myrbetriq 25 mg tablet extended release 24 hr 25 mg PO DAILY 30 Days Qty: 30 1RF sennosides-docusate sodium [Senna Plus] 8.6-50 mg tablet 1 tab-cap PO BEDTIME 30 Days Qty: 30 3RF nystatin 100,000 unit/mL suspension 1 ml PO BID 15 Days Qty: 30 2RF Rx Instructions: swish and swallow Advair HFA 115-21 mcg/actuation HFA aerosol inhaler 2 puff inhalation Q12H 30 Days Qty: 12 11RF (DME) Aerochamber MV Spacer See Rx Instructions .ROUTE .MEDSUPPLY Qty: 1 0RF Rx Instructions: As directed Magic Mouthwash Diphen/Lido/Antacid 1:1:1 240 mL suspension 10 ml PO QID PRN (Reason: sore throat) 14 Days Qty: 240 1RF Rx Instructions: Lidocaine Viscous 2 % 80mL; diphenhydramine 12.5 mg/5 mL 80mL; aluminum-mag hydrox-simeth [id number]/5mL 80mL albuterol sulfate [Ventolin HFA] 90 mcg/actuation HFA aerosol inhaler 2 puff PO Q4H PRN (Reason: for wheezing) Qty: 18 1RF ipratropium-albuterol 0.5 mg-3 mg(2.5 mg base)/3 mL solution for nebulization 3 ml inhalation Q6H PRN (Reason: wheezing) Qty: 180 3RF omeprazole 40 mg capsule,delayed release(DR/EC) 40 mg PO DAILY Qty: 30 0RF Lantus Solostar U-100 Insulin 100 unit/mL (3 mL) insulin pen 35 unit subcut DAILY 30 Days Qty: 10.5 11RF Lidocaine Viscous 2 % solution PO 0RF clonidine 0.1 mg/24 hr patch weekly 1 patch topical QWEEK 0RF ipratropium bromide 0.03 % spray,non-aerosol intranasal 0RF Linzess 145 mcg capsule 145 mcg PO DAILY 0RF simethicone [Gas Relief Extra Strength] 125 mg capsule 0 mg PO 0RF spironolactone 25 mg tablet 25 mg PO DAILY 0RF sertraline 25 mg tablet 25 mg PO DAILY 0RF cholecalciferol (vitamin D3) 50 mcg (2,000 unit) tablet 50 mcg PO DAILY 0RF timolol maleate 0.5 % drops 1 drp ophthalmic (eye) BID 0RF rosuvastatin [Crestor] 20 mg tablet 20 mg PO DAILY Qty: 30 5RF Linzess 72 mcg capsule 72 mcg PO DAILY 30 Days Qty: 30 3RF Senna Plus 8.6-50 mg capsule 1 tab-cap PO BEDTIME 30 Days Qty: 30 3RF Rx Instructions: PT would like to get SEnna plus since regular senna does not work for her ketotifen fumarate 0.025 % (0.035 %) drops 1 drp ophthalmic (eye) BID 0RF diphenhydramine HCl [Benadryl] 25 mg capsule 25 mg PO BEDTIME PRN (Reason: pruritus) 90 Days Qty: 90 1RF (DME) pen needle, diabetic 32 gauge x 32 needle See Rx Instructions ea .ROUTE .MEDSUPPLY Qty: 50 0RF Rx Instructions: As directed Januvia 100 mg tablet 100 mg PO DAILY 0RF loteprednol etabonate 0.5 % drops,suspension 1 drp ophthalmic (eye) QID 0RF metoclopramide HCl 5 mg tablet 5 mg PO QID 0RF azelastine 137 mcg (0.1 %) aerosol,spray 2 spray intranasal BID 30 Days Qty: 30 6RF Rx Instructions: administer into each nostril Referrals: Ray May MD [Physician] - 3 days Liset Mitchell MD [Primary Care Provider] - 3 days
[2021-06-28 20:02] LABS: MANUAL DIFF FLAG NO
[2021-06-28 20:03] LABS: Basophils Absolute Auto 0.1 X10*3/uL (0.0-0.2); Basophils Percent Auto 0.5 % (0-2); Eosinophils Absolute Auto 0.2 X10*3/uL (0.0-0.4); Eosinophils Percent Auto 1.9 % (0-4); Hematocrit 42.6 % (37.0-47.0); Hemoglobin 14.8 g/dl (12.0-16.0); Imm Gran Abs Auto 0.03 X10*3/uL (0.00-0.03); Imm Gran Pct Auto 0.3 % (0.0-0.4); Lymphocytes Absolute Auto 3.3 X10*3/uL (1.2-4.9); Lymphocytes Percent Auto 34.9 % (20-40); Mean Corpuscular HGB Conc 34.7 g/dl (31.0-35.0); Mean Corpuscular Hemoglobin 30.1 pg (27.0-33.0); Mean Corpuscular Volume 86.6 fL (80.0-98.0); Monocytes Absolute Auto 0.7 X10*3/uL (0.1-1.2); Monocytes Percent Auto 7.1 % (2-11); Neutrophils Absolute Auto 5.3 x10*3/uL (2.0-8.3); Neutrophils Percent Auto 55.3 % (45-73); Platelet Count 216 X10*3/uL (160-400); Red Blood Count 4.92 X10*6/uL (4.20-5.50); Red Cell Distribution Width 12.3 % (11.0-16.0); White Blood Count 9.6 X10*3/uL (4.8-10.8)
[2021-06-28 20:20] LABS: COVID-19 Test Negative (Negative)
[2021-06-28 20:20] LABS: Alanine Aminotransferase 20 U/L (0-31); Albumin Level 4.2 g/dL (3.5-5.0); Alkaline Phosphatase 60 U/L (39-117); Anion Gap 14 (12-20); Aspartate Amino Transferase 20 U/L (5-31); Bilirubin Total 0.7 mg/dL (0.0-1.0); Blood Urea Nitrogen 19 mg/dL (9-16); Calcium 9.9 mg/dL (8.4-10.2); Carbon Dioxide 25 mmol/L (22-29); Chloride 102 mmol/L (96-108); Creatinine Clr Calc Pharmacy 43.2; Estimated Glomerular Filt Rate 57; Glucose Random 159 mg/dL (60-115); Magnesium 1.9 mg/dL (1.6-2.6); Potassium 3.7 mmol/L (3.3-5.1); Sodium 137 mmol/L (135-145); Total Protein 7.5 g/dL (6.5-8.0)
[2021-06-28 20:24] LABS: B Type Natriuretic Peptide 21 pg/mL (<100)
[2021-06-28 21:02] LABS: Appearance Urine CLEAR; Color Urine YELLOW; Glucose Urine UA NEG (NEG); Leukocyte Esterase Urine 3+ (NEG); Nitrite Urine NEG (NEG); Specific Gravity - Urine <= 1.005 (1.005-1.025); UACC Culture Trigger YES; Urine Blood NEG (NEG); Urine Ketones NEG (NEG); Urine Protein NEG (NEG-TRACE)
[2021-06-28 21:09] LABS: D Dimer High Sensitivity 251 NG/ML
[2021-06-28 21:12] LABS: Bacteria Urine 1+ /LPF; RBC Urine 0 /HPF (0); Squamous Epithelial Cell Urine 1+ /LPF
[2021-06-28 22:04] VITALS: BP 164/68; PULSE 57; RESP 12; O2SAT 97
[2021-06-28] MEDS: iohexoL 350 MG/ML 100 ML INFUS..BTL IV (22:49)
[2021-06-28 23:00] LABS: Glucose, Whole Blood 106 mg/dL (60-115)
[2021-06-28] MEDS: Famotidine 20 MG TABLET PO (23:02)
[2021-06-28] MEDS: Magnesium Hydrox/Alum Hydrox 30 ML ORAL.SUSP PO (23:02)
[2021-06-28 23:49] LABS: Troponin-I High Sensitivity 5.4 ng/L (<3.5-17.0)
== END 2021-06-29 00:30 | disposition home or self-care (01) ==
PROVIDERS: Physician Assistant; Emergency Provider Emergency Medicine; PCP Family Medicine
DX: R07.89 Other chest pain (principal); N39.0 Urinary tract infection, site not specified; I10 Essential (primary) hypertension; I25.10 Atherosclerotic heart disease of native coronary artery without angina pectoris; F33.1 Major depressive disorder, recurrent, moderate; Z20.822 Contact with and (suspected) exposure to COVID-19; Z79.4 Long term (current) use of insulin; Z79.899 Other long term (current) drug therapy
CPT/HCPCS: 36415; 71045; 71275; 80053; 81001; 81003; 82947; 83735; 83880; 84484; 85025; 85379; 87086; 87635; 93005; 99284; Q9967

== ENCOUNTER 2021-08-04 08:12 | Outpatient (REF) | payer OTHER, SELFPAY ==
[2021-08-04 09:15] LABS: Anion Gap 14 (12-20); Blood Urea Nitrogen 36 mg/dL (9-16); Carbon Dioxide 28 mmol/L (22-29); Chloride 101 mmol/L (96-108); Cholesterol 277 mg/dL; Estimated Glomerular Filt Rate 54; Glucose Random 144 mg/dL (60-115); HDL Cholesterol 43 mg/dL; LDL Cholesterol Calculated 200 mg/dl; Sodium 138 mmol/L (135-145); Triglycerides 170 mg/dL
== END 2021-08-04 08:13 | disposition home or self-care (01) ==
LOC: HO.LAB 08:12
PROVIDERS: Visit Provider Family Medicine
DX: I10 Essential (primary) hypertension (principal)
CPT/HCPCS: 36415; 80048; 80061

== ENCOUNTER 2021-09-01 10:18 | Outpatient (REF) | payer OTHER, SELFPAY ==
[2021-09-01 11:18] LABS: COVID-19 Test Negative (Negative); IDNOW Serial# 9DB6401D
== END 2021-09-01 10:19 | disposition home or self-care (01) ==
LOC: HO.LAB 10:18
PROVIDERS: Visit Provider Hospitalist
DX: Z20.822 Contact with and (suspected) exposure to COVID-19 (principal); R05.9 Cough, unspecified; R91.8 Other nonspecific abnormal finding of lung field; J45.40 Moderate persistent asthma, uncomplicated; G47.33 Obstructive sleep apnea (adult) (pediatric)
CPT/HCPCS: 87635; 99212

== ENCOUNTER 2021-10-10 08:38 | Outpatient (REF) | payer OTHER, SELFPAY ==
--- NOTE | ~2021-10-10 | XR_ITS ---
EXAMINATION: XR PELVIS CLINICAL INFORMATION: Hip pain. COMPARISON: CT abdomen/pelvis from 05/10/2013. TECHNIQUE: Pelvis, AP view FINDINGS: Mild levocurvature of the chronically degenerated lumbar spine. Findings include multilevel vacuum disc degeneration, disc space narrowing and osteophyte formation of the visualized lumbar spine. The osseous pelvic ring is intact. Alignment is maintained at the pubic symphysis, hips and mildly degenerated sacroiliac joints. The articular cartilage space of each hip is maintained. An old small focus of pericapsular calcification is present at the lateral left acetabulum. No suspicious lytic or blastic bone lesion. The proximal femurs are intact. No evidence of erosion, femoral fracture or osteonecrosis. There are small enthesophytes of the greater trochanters. Bowel gas pattern is normal. Atherosclerotic calcifications of iliac arteries. XR/XR pelvis 1-2V IMPRESSION: * Chronic multilevel degenerative disc disease of the lumbar spine. * No fracture or malalignment at either hip. Also, there are no findings of any significant degenerative or inflammatory arthropathy at either hip.
== END 2021-10-10 08:39 | disposition home or self-care (01) ==
LOC: HO.HOSX 08:38
PROVIDERS: Visit Provider Orthopaedic Surgery
DX: M54.16 Radiculopathy, lumbar region (principal); Z79.4 Long term (current) use of insulin; Z79.899 Other long term (current) drug therapy
CPT/HCPCS: 72170; 99202

== ENCOUNTER 2021-10-23 05:10 | Emergency (ER) | payer OTHER, SELFPAY ==
[2021-10-23 05:15] VITALS: BP 152/70; BP 162/92; PULSE 79; PULSE 94; RESP 12; TEMP 36.8; O2SAT 96; BMI 30.2
--- NOTE | 2021-10-23 05:54 | ECG_ITS ---
Test Reason : HTN Blood Pressure : / mmHG Vent. Rate : 056 BPM Atrial Rate : 056 BPM P-R Int : 172 ms QRS Dur : 112 ms QT Int : 468 ms P-R-T Axes : 051 -31 006 degrees QTc Int : 451 ms Sinus bradycardia Left axis deviation Minimal voltage criteria for LVH, may be normal variant ( Ti product ) Abnormal ECG When compared with ECG of 28-JUN-2021 19:32, No significant change was found Referred By: Lexis Rock Electronically Signed By:PRAMOD MCINTYRE
[2021-10-23 06:09] LABS: Basophils Percent Auto 0.4 % (0-2); Eosinophils Absolute Auto 0.1 X10*3/uL (0.0-0.4); Eosinophils Percent Auto 1.2 % (0-4); Hematocrit 40.3 % (37.0-47.0); Hemoglobin 14.1 g/dl (12.0-16.0); Imm Gran Abs Auto 0.02 X10*3/uL (0.00-0.03); Imm Gran Pct Auto 0.3 % (0.0-0.4); Lymphocytes Absolute Auto 1.9 X10*3/uL (1.2-4.9); Lymphocytes Percent Auto 27.9 % (20-40); MANUAL DIFF FLAG NO; Mean Corpuscular Hemoglobin 29.7 pg (27.0-33.0); Mean Platelet Volume 9.9 fL (9.4-12.3); Monocytes Absolute Auto 0.4 X10*3/uL (0.1-1.2); Monocytes Percent Auto 6.4 % (2-11); Neutrophils Absolute Auto 4.4 x10*3/uL (2.0-8.3); Neutrophils Percent Auto 63.8 % (45-73); Platelet Count 190 X10*3/uL (160-400); Red Blood Count 4.74 X10*6/uL (4.20-5.50); Red Cell Distribution Width 12.7 % (11.0-16.0); White Blood Count 6.9 X10*3/uL (4.8-10.8)
[2021-10-23 06:19] VITALS: BP 139/60; PULSE 74; RESP 16; TEMP 36.6; O2SAT 94
[2021-10-23 06:54] LABS: Anion Gap 14 (12-20); Blood Urea Nitrogen 22 mg/dL (9-16); Calcium 9.6 mg/dL (8.4-10.2); Carbon Dioxide 27 mmol/L (22-29); Chloride 98 mmol/L (96-108); Creatinine Clr Calc Pharmacy 44.8; Estimated Glomerular Filt Rate > 60; Glucose Random 126 mg/dL (60-115); Potassium 3.4 mmol/L (3.3-5.1); Sodium 136 mmol/L (135-145)
--- NOTE | 2021-10-23 07:02 | ED.GENADULT ---
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 Patient received a phone call at 02:00 o'clock in the morning from her grandson having some new news, patient woke up agitated and anxious felt palpitation called 911 found her blood pressure on the high side patient known to have high blood pressure taking 2 medication for blood pressure and patient is compliant with her medications. Patient declined any CP or SOB, no abdominal pain. Patient now feels better and more relaxed. Related Data Home Medications Medication Instructions Recorded Confirmed clonidine 0.1 mg/24 hr weekly 1 patch topical QWEEK 12/30/19 10/10/21 transdermal patch ipratropium bromide 21 mcg (0.03 intranasal 12/30/19 10/10/21 %) nasal spray lancets ([employer]Touch UltraSoft #100 ea 01/06/20 10/10/21 Lancets) lidocaine HCl 2 % mucosal solution ml PO 05/20/20 10/10/21 ketotifen fumarate 0.025 % (0.035 1 drp ophthalmic (eye) BID 06/24/20 10/10/21 %) eye drops loteprednol etabonate 0.5 % eye 1 drp ophthalmic (eye) QID 08/17/20 10/10/21 drops,suspension pen needle, diabetic 32 gauge x #50 ea 08/17/20 10/10/2132 sitagliptin 100 mg tablet 100 mg PO DAILY 08/17/20 10/10/21 cholecalciferol (vitamin D3) 50 50 mcg PO DAILY 09/21/20 10/10/21 mcg (2,000 unit) tablet timolol maleate 0.5 % eye drops 1 drp ophthalmic (eye) BID 09/21/20 10/10/21 linaclotide 145 mcg capsule 145 mcg PO DAILY 11/26/20 10/10/21 (Linzess) sertraline 25 mg tablet 25 mg PO DAILY 11/26/20 10/10/21 simethicone 125 mg capsule (Gas 0 mg PO 11/26/20 10/10/21 Relief Extra Strength) spironolactone 25 mg tablet 25 mg PO DAILY 11/26/20 10/10/21 Previous Rx's Medication Instructions Recorded insulin glargine 100 unit/mL (3 35 unit (0.35 mL) subcut DAILY 30 12/18/19 mL) subcutaneous pen (Lantus days #10.5 mL Solostar U-100 Insulin) blood sugar diagnostic (OneTouch #100 ea 01/07/20 Verio test strips) blood-glucose meter (OneTouch #1 ea 01/07/20 Verio Meter) diphenhydramine HCl 25 mg capsule 25 mg PO BEDTIME PRN pruritus 90 06/24/20 (Benadryl) days #90 caps rosuvastatin 20 mg tablet (Crestor) 20 mg PO DAILY #30 tabs 09/21/20 mirabegron 25 mg tablet,extended 25 mg PO DAILY 30 days #30 tabs 10/28/20 release 24 hr (Myrbetriq) nystatin 100,000 unit/mL oral 1 ml PO BID 15 days #30 mL 12/28/20 suspension omeprazole 40 mg capsule,delayed 40 mg PO DAILY #30 caps 01/06/21 release azelastine 137 mcg (0.1 %) nasal 2 spray intranasal BID 30 days #30 01/19/21 spray aerosol mL Magic Mouthwash 10 ml PO QID PRN sore throat 14 01/25/21 Diphen/Lido/Antacid 1:1:1 240 mL days #240 mL suspension fluticasone propionate 115 2 puff inhalation Q12H 30 days #12 01/25/21 mcg-salmeterol 21 mcg/actuation grams HFA inhaler (Advair HFA) inhalational spacing device #1 ea 01/25/21 (Aerochamber MV spacer) albuterol sulfate 90 mcg/actuation 2 puff PO Q4H PRN for wheezing #18 02/07/21 aerosol inhaler (Ventolin HFA) ea ipratropium 0.5 mg-albuterol 3 mg 3 ml inhalation Q6H PRN wheezing 02/08/21 (2.5 mg base)/3 mL nebulization #180 mL soln azithromycin 500 mg tablet 500 mg PO DAILY 3 days #3 tabs 09/01/21 nystatin 100,000 unit/mL oral 1 ml PO BID 30 days #60 mL 08/25/22 suspension Allergies Allergy/AdvReac Type Severity Reaction Status Date / Time umeclidinium AdvReac Intermediate Chest Pain Verified 10/10/21 10:45 [From Incruse Ellipta] empagliflozin [Jardiance] AdvReac Unknown vaginal Verified 10/10/21 10:45 itch fluticasone [Flovent HFA] AdvReac Unknown lip Verified 10/10/21 10:45 swelling metformin AdvReac Unknown stomach Verified 10/10/21 10:45 pain sitagliptin [Januvia] AdvReac Unknown stomach Verified 10/10/21 10:45 pain motrin Allergy Unknown stomachache Uncoded 10/10/21 10:45 percocet Allergy Unknown nausea and Uncoded 10/10/21 10:45 vomiting vicodin Allergy Unknown nausea and Uncoded 10/10/21 10:45 vomiting Review of Systems Review of Systems: All other systems are reviewed and are negative Constitutional: Reports as per HPI and Reports no additional constitutional complaints Eyes: Reports as per HPI and Reports no additional eye complaints Reports system reviewed and no additional complaints, except as documented Cardiovascular: Reports as per HPI and Reports no additional cardiovascular complaints Respiratory: Reports as per HPI and Reports no additional respiratory complaints Gastrointestinal: Reports as per HPI and Reports no additional gastrointestinal complaints Genitourinary: Reports no additional female genitourinary complaints Musculoskeletal: Reports no additional musculoskeletal complaints Skin/Breast: Reports system reviewed and no additional complaints, except as docu Psychiatric: Reports no additional psychiatric complaints Endocrine: Reports no additional endocrine complaints Hematologic/Lymphatic: Reports no additional hematologic/lymphatic complaints Allergic/Immunologic: Reports no additional allergic/immunologic complaints Reports system reviewed and no additional complaints, except as documented and Reports Abnormal speech present [facility] Past Medical History Medical History Anxiety and depression Asthma Atherosclerotic cardiovascular disease Chronic allergic rhinitis Cough Cough Diabetes mellitus Dyslipidemia Dysphagia Essential hypertension Fibromyalgia Gastric pain Obese ROXIE (obstructive sleep apnea) Pulmonary nodules Sinusitis Tracheobronchomalacia Urinary incontinence Surgical History H/O breast biopsy H/O left knee surgery H/O: hysterectomy History of bronchoscopy Hx of colonoscopy Hx of esophagogastroduodenoscopy Family History Family History Father Hypertension Mother Hypertension Diabetes Daughter Diabetes Brother No problems noted. Social History Social History Household Members: Children Alcohol intake: never Patient Tobacco Use Status: Never used Tobacco Second Hand Smoke Exposure: Yes Use of substances other than those prescribed or required for medical reasons: No Advance Directives: No Advance Directives Information Provided: No Physical Exam ED Vital Signs: Vital Signs - 24 hr 10/23/21 05:15 10/23/21 06:19 10/23/21 07:19 Temperature 98.2 F 97.9 F Pulse Rate 79 74 64 Respiratory Rate 12 16 18 Blood Pressure 152/70 H 139/60 129/66 Pulse Oximetry 96 94 95 Oxygen Delivery Method Room Air Room Air Room Air BMI result Body Mass Index 30.2 Vital signs have been reviewed as appeared to be correct. Blood pressure normal. Heart rate normal. Respiration rate normal. Temperature normal. Oxygen saturation normal. Appearance: Alert. Oriented X3. No acute distress. Head: Normal external exam. Normocephalic. Atraumatic. No William signs noted. No raccoon eyes noted Eyes: PERRLA. EOMI. Conjunctiva and sclera normal. Eyelids normal. ENT: TM's Normal. Pharynx normal. Uvula midline. Moist mucous membranes. No trismus noted. No drooling noted. No muffled voice noted. Neck: Normal inspection. Neck supple. FROM. No adenopathy. Thyroid Normal. No meningeal signs. No neck mass noted. CVS: Normal heart rate and rhythm. Heart sound normal. No murmurs noted. Pulses normal throughout. Respiratory: No respiratory distress. Painless inspiration. Breath sounds normal. No wheezes/rales/rhonchi noted. Chest nontender. No accessory muscle usage noted or decreased air movement noted. Abdomen: Soft and nontender. Bowel sounds normal in all 4 quadrants. No distention noted. No organomegaly noted. No visible injury noted. Back: No CVA tenderness. Full range of motion noted. Skin: Skin warm and dry. Normal skin color. Normal skin turgor. No rashes/lesions/lacerations noted. Extremities: No lower extremity edema. Extremities exhibit normal range of motion. Extremities nontender. Neuro: Oriented X 3. Cranial nerve exam: II-XII are grossly intact No motor deficit. No sensory deficit. Reflexes normal. Course Course Course Narrative: 75-year-old female's history of hypertension came in for evaluation of anxiety after was waking up from sleep by phone from her grandson with bad news, patient noted by EMS to be hypertensive, patient is compliant with her blood pressure medication, initial blood pressure on arrival was 152/70 now blood pressure is 129/66, patient is relaxed, no anxiety, no CP or SOB, no complaints at this point. Will reassure and discharge to follow-up with PCP. Medical Decision Making Lab Data Lab results reviewed: Yes I reviewed the patient's lab results. Result diagrams: 10/23/21 05:58 10/23/21 05:58 Labs: Lab Results 10/23/21 10/23/21 10/23/21 Range/Units 05:58 05:58 07:12 WBC 6.9 (4.8-10.8) X10*3/uL RBC 4.74 (4.20-5.50) X10*6/uL Hgb 14.1 (12.0-16.0) g/dl Hct 40.3 (37.0-47.0) % MCV 85.0 (80.0-98.0) fL MCH 29.7 (27.0-33.0) pg MCHC 35.0 (31.0-35.0) g/dl RDW 12.7 (11.0-16.0) % Plt Count 190 (160-400) X10*3/uL MPV 9.9 (9.4-12.3) fL Immature Gran % (Auto) 0.3 (0.0-0.4) % Neut % (Auto) 63.8 (45-73) % Lymph % (Auto) 27.9 (20-40) % Morgan % (Auto) 6.4 (2-11) % Eos % (Auto) 1.2 (0-4) % Baso % (Auto) 0.4 (0-2) % Lymph # (Auto) 1.9 (1.2-4.9) X10*3/uL Morgan # (Auto) 0.4 (0.1-1.2) X10*3/uL Eos # (Auto) 0.1 (0.0-0.4) X10*3/uL Baso # (Auto) 0.0 (0.0-0.2) X10*3/uL Abs Immat Gran (auto) 0.02 (0.00-0.03) X10*3/uL Absolute Neuts (auto) 4.4 (2.0-8.3) x10*3/uL Absolute Nucleated RBC 0.000 (0.0-0.012) X10*3/uL Nucleated RBC % (auto) 0.0 (0.0-0.2) /100WBC Sodium 136 (135-145) mmol/L Potassium 3.4 D (3.3-5.1) mmol/L Chloride 98 (96-108) mmol/L Carbon Dioxide 27 (22-29) mmol/L Anion Gap 14 (12-20) BUN 22 H (9-16) mg/dL Creatinine 0.83 (0.5-1.4) mg/dL Estim Creat Clear Calc 44.8 Estimated GFR > 60 Random Glucose 126 H (60-115) mg/dL Calcium 9.6 (8.4-10.2) mg/dL Troponin I High Sens 4.9 (<3.5-17.0) ng/L ECG Data Attestation: I personally reviewed and interpreted this ECG as follows: Interpretation: Sinus bradycardia, left axis deviation, LVH, slight prolongation of QRS otherwise unremarkable intervals. Discharge Plan Discharge Clinical Impression: Anxiety in acute stress reaction Patient Disposition: Home, Self-Care Instructions: Anxiety (ED) Prescriptions: No Action (DME) lancets [OneTouch UltraSoft Lancets] Misc See Rx Instructions .ROUTE .MEDSUPPLY Qty: 100 Rx Instructions: As directed (DME) blood-glucose meter [OneTouch Verio Meter] Misc See Rx Instructions .ROUTE .MEDSUPPLY Qty: 1 0RF Rx Instructions: As directed (DME) OneTouch Verio test strips Strip See Rx Instructions .ROUTE .MEDSUPPLY Qty: 100 0RF Rx Instructions: As directed Myrbetriq 25 mg tablet extended release 24 hr 25 mg PO DAILY 30 Days Qty: 30 1RF nystatin 100,000 unit/mL suspension 1 ml PO BID 15 Days Qty: 30 2RF Rx Instructions: swish and swallow Advair HFA 115-21 mcg/actuation HFA aerosol inhaler 2 puff inhalation Q12H 30 Days Qty: 12 11RF (DME) Aerochamber MV Spacer See Rx Instructions .ROUTE .MEDSUPPLY Qty: 1 0RF Rx Instructions: As directed Magic Mouthwash Diphen/Lido/Antacid 1:1:1 240 mL suspension 10 ml PO QID PRN (Reason: sore throat) 14 Days Qty: 240 1RF Rx Instructions: Lidocaine Viscous 2 % 80mL; diphenhydramine 12.5 mg/5 mL 80mL; aluminum-mag hydrox-simeth [id number]/5mL 80mL albuterol sulfate [Ventolin HFA] 90 mcg/actuation HFA aerosol inhaler 2 puff PO Q4H PRN (Reason: for wheezing) Qty: 18 1RF ipratropium-albuterol 0.5 mg-3 mg(2.5 mg base)/3 mL solution for nebulization 3 ml inhalation Q6H PRN (Reason: wheezing) Qty: 180 3RF nystatin 100,000 unit/mL suspension 1 ml PO BID 30 Days Qty: 60 2RF Rx Instructions: swish and swallow omeprazole 40 mg capsule,delayed release(DR/EC) 40 mg PO DAILY Qty: 30 0RF Lantus Solostar U-100 Insulin 100 unit/mL (3 mL) insulin pen 35 unit subcut DAILY 30 Days Qty: 10.5 11RF Lidocaine Viscous 2 % solution PO clonidine 0.1 mg/24 hr patch weekly 1 patch topical QWEEK ipratropium bromide 0.03 % spray,non-aerosol intranasal Linzess 145 mcg capsule 145 mcg PO DAILY simethicone [Gas Relief Extra Strength] 125 mg capsule 0 mg PO spironolactone 25 mg tablet 25 mg PO DAILY sertraline 25 mg tablet 25 mg PO DAILY cholecalciferol (vitamin D3) 50 mcg (2,000 unit) tablet 50 mcg PO DAILY timolol maleate 0.5 % drops 1 drp ophthalmic (eye) BID rosuvastatin [Crestor] 20 mg tablet 20 mg PO DAILY Qty: 30 5RF ketotifen fumarate 0.025 % (0.035 %) drops 1 drp ophthalmic (eye) BID diphenhydramine HCl [Benadryl] 25 mg capsule 25 mg PO BEDTIME PRN (Reason: pruritus) 90 Days Qty: 90 1RF (DME) pen needle, diabetic 32 gauge x 5/32 needle See Rx Instructions .ROUTE .MEDSUPPLY Qty: 50 Rx Instructions: As directed Januvia 100 mg tablet 100 mg PO DAILY loteprednol etabonate 0.5 % drops,suspension 1 drp ophthalmic (eye) QID azelastine 137 mcg (0.1 %) aerosol,spray 2 spray intranasal BID 30 Days Qty: 30 6RF Rx Instructions: administer into each nostril azithromycin 500 mg tablet 500 mg PO DAILY 3 Days Qty: 3 0RF Referrals: Physician,Unknown J [Primary Care Provider] -
[2021-10-23 07:19] VITALS: BP 129/66; PULSE 64; RESP 18; O2SAT 95
[2021-10-23 07:42] LABS: Troponin-I High Sensitivity 4.9 ng/L (<3.5-17.0)
[2021-10-23 09:20] VITALS: BP 149/71; PULSE 78; RESP 18; O2SAT 97
== END 2021-10-23 09:21 | disposition home or self-care (01) ==
PROVIDERS: Emergency Medicine; Emergency Provider Emergency Medicine
DX: F41.1 Generalized anxiety disorder (principal); F43.0 Acute stress reaction; R00.1 Bradycardia, unspecified; Z79.899 Other long term (current) drug therapy
CPT/HCPCS: 36415; 80048; 84484; 85025; 93005; 99284

== ENCOUNTER 2022-07-21 10:07 | Outpatient (REF) | payer OTHER, SELFPAY ==
--- NOTE | ~2022-07-21 | CT_ITS ---
EXAMINATION: CT CHEST WITHOUT CONTRAST CLINICAL INFORMATION: Abnormal lung findings. Multiple pulmonary nodules. COMPARISON: CT angiography chest 06/28/2021 TECHNIQUE: Multidetector volumetric CT imaging of the chest was done. Axial MIP volume rendering provided. Sagittal and coronal reformatted images were obtained. This CT examination was performed using dose optimization techniques as appropriate, variously including the following: *Automated exposure control *Adjustment of mA and/or kV according to patient size (this includes techniques or standardized protocols for targeted exams where dose is matched to indication/reason for exam; i.e. extremities or head) *Use of iterative reconstruction technique DLP: 136 mGy-cm FINDINGS: VIDEO PRODUCTION ASSISTANT: Well-inflated lungs. LUNGS: Lungs are well-expanded and clear of acute pneumonic process. There are multiple small calcified pulmonary nodules measuring 2 mm in the right upper lobe. There is a non-calcified 5 mm pulmonary nodule in the left lower lobe axial image 190/5, 6 mm right lower lobe axial image 358/5, 5 mm in the lingula axial image 370/5. These nodules are stable. There is a 4 mm nodule at the right lung base image 404/5 and left lung base image 446/5. MEDIASTINUM: The thyroid lobes are symmetric and normal. The central trachea and the bronchi are widely patent. The heart size and the great vessels are of normal caliber. Central trachea and the bronchi are widely patent. There are no abnormally sized mediastinal or hilar lymph nodes. No pericardial effusion is seen. CORONARY ARTERY CALCIFICATION: Moderate coronary calcifications are seen. PLEURA: There is no pleural effusion. No pleural mass or thickening. AXILLA: No lymphadenopathy. UPPER ABDOMEN: Visualized liver, spleen, pancreas and bilateral adrenal glands are unremarkable. No radiopaque gallstone are seen. OSSEOUS STRUCTURES: No aggressive lytic or sclerotic process seen. There is mild ventral spondylosis of the mid and lower dorsal spine. CT/CT chest wo IV con IMPRESSION: 1. Multiple calcified and non-calcified pulmonary nodules are stable. No new nodules seen. 2. No abnormal mediastinal or axillary lymphadenopathy. Fleischner guidelines were followed.
== END 2022-07-21 10:08 | disposition home or self-care (01) ==
LOC: HO.CT 10:07
PROVIDERS: PCP Family Medicine; Visit Provider Hospitalist
DX: R91.8 Other nonspecific abnormal finding of lung field (principal)
CPT/HCPCS: 71250

== ENCOUNTER → 2022-07-26 11:29 | Outpatient (BNVA) | payer OTHER, SELFPAY | PROVIDERS: PCP Family Medicine; Visit Provider Hospitalist | DX: J45.40 Moderate persistent asthma, uncomplicated (principal); J30.9 Allergic rhinitis, unspecified; J39.8 Other specified diseases of upper respiratory tract; R05.9 Cough, unspecified; R91.8 Other nonspecific abnormal finding of lung field; G47.33 Obstructive sleep apnea (adult) (pediatric) | CPT/HCPCS: 99212 ==

== ENCOUNTER 2022-08-19 18:14 | Emergency (ER) | payer OTHER, SELFPAY ==
[2022-08-19 18:21] VITALS: BP 120/80; PULSE 85; O2SAT 98
--- NOTE | 2022-08-19 18:32 | ED_ITS ---
HPI - Headache General Chief Complaint: General Medical Stated Complaint: headache, cold symptoms Time Seen by Provider: 08/19/22 18:27 Source: patient Mode of arrival: ambulatory Limitations: no limitations History of Present Illness HPI Narrative: Patient status post cardiac stent placement x3 last month at [facility] on Brilinta with history of anxiety and fibromyalgia and diabetes comes here for blood pressure was high 176/81 having had fullness last 2 days had a palpitation episode multiple complaints were no chest pain or shortness of breath says possible anxiety Related Data Home Medications Medication Instructions Recorded Confirmed clonidine 0.1 mg/24 hr weekly 1 patch topical QWEEK 12/30/19 10/10/21 transdermal patch ipratropium bromide 21 mcg (0.03 intranasal 12/30/19 10/10/21 %) nasal spray lancets (OneTouch UltraSoft #100 ea 01/06/20 10/10/21 Lancets) loteprednol etabonate 0.5 % eye 1 drp ophthalmic (eye) QID 08/17/20 10/10/21 drops,suspension pen needle, diabetic 32 gauge x #50 ea 08/17/20 10/10/21 sitagliptin phosphate 100 mg tablet 100 mg PO DAILY 08/17/20 10/10/21 cholecalciferol (vitamin D3) 50 50 mcg PO DAILY 09/21/20 10/10/21 mcg (2,000 unit) tablet linaclotide 145 mcg capsule 145 mcg PO DAILY 11/26/20 10/10/21 (Linzess) sertraline 25 mg tablet 25 mg PO DAILY 11/26/20 10/10/21 simethicone 125 mg capsule (Gas 0 mg PO 11/26/20 10/10/21 Relief Extra Strength) spironolactone 25 mg tablet 25 mg PO DAILY 11/26/20 10/10/21 atorvastatin 80 mg tablet 80 mg PO QAM 07/26/22 latanoprost 0.005 % eye drops 1 drp ophthalmic (eye) BEDTIME 07/26/22 losartan 25 mg tablet 25 mg PO DAILY 07/26/22 metoprolol succinate 25 mg 25 mg PO DAILY 07/26/22 tablet,extended release 24 hr nitroglycerin 0.4 mg sublingual 0 mg sublingual 07/26/22 tablet ticagrelor 90 mg tablet (Brilinta) 90 mg PO BID 07/26/22 Previous Rx's Medication Instructions Recorded insulin glargine 100 unit/mL (3 35 unit (0.35 mL) subcut DAILY 30 12/18/19 mL) subcutaneous pen (Lantus days #10.5 mL Solostar U-100 Insulin) blood sugar diagnostic (OneTouch #100 ea 01/07/20 Verio test strips) blood-glucose meter (OneTouch #1 ea 01/07/20 Verio Meter) mirabegron 25 mg tablet,extended 25 mg PO DAILY 30 days #30 tabs 10/28/20 release 24 hr (Myrbetriq) omeprazole 40 mg capsule,delayed 40 mg PO DAILY #30 caps 01/06/21 release azelastine 137 mcg (0.1 %) nasal 2 spray intranasal BID 30 days #30 01/19/21 spray aerosol mL inhalational spacing device #1 ea 01/25/21 (Aerochamber MV spacer) nystatin 100,000 unit/mL oral 1 ml PO BID 30 days #60 mL 10/20/21 suspension ipratropium 0.5 mg-albuterol 3 mg 3 ml inhalation Q6H PRN for 02/09/22 (2.5 mg base)/3 mL nebulization wheezing #180 mL soln Magic Mouthwash 10 ml PO QID PRN sore throat 14 07/26/22 Diphen/Lido/Antacid 1:1:1 240 mL days #240 mL suspension albuterol sulfate 90 mcg/actuation 2 puff PO Q4H PRN for wheezing 30 07/26/22 aerosol inhaler (Ventolin HFA) days #18 ea fluticasone propionate 115 2 puff inhalation Q12H 30 days #12 07/26/22 mcg-salmeterol 21 mcg/actuation grams HFA inhaler (Advair HFA) montelukast 10 mg tablet 10 mg PO BEDTIME 30 days #30 tabs 07/26/22 (Singulair) Allergies Allergy/AdvReac Type Severity Reaction Status Date / Time fluticasone [Flovent HFA] Allergy Unknown lip Verified 07/27/22 14:38 swelling umeclidinium AdvReac Intermediate Chest Pain Verified 07/26/22 11:35 [From Incruse Ellipta] empagliflozin [Jardiance] AdvReac Unknown vaginal Verified 07/27/22 14:38 itch metformin AdvReac Unknown stomach Verified 07/27/22 14:38 pain sitagliptin [Januvia] AdvReac Unknown stomach Verified 07/27/22 14:38 pain acetaminophen [From Percocet] AdvReac Nausea and Verified 07/27/22 14:38 Vomiting hydrocodone [From Vicodin] AdvReac Nausea and Verified 07/27/22 14:38 Vomiting ibuprofen [From Motrin] AdvReac Stomach Verified 07/27/22 14:38 Upset oxycodone [From Percocet] AdvReac Nausea and Verified 07/27/22 14:38 Vomiting Review of Systems Review of Systems: Yes all other systems are reviewed and are negative PMFSH Past Medical History Medical History (Updated 08/19/22 @ 19:40 by Steven Myles MD) Anxiety and depression Asthma Atherosclerotic cardiovascular disease Chronic allergic rhinitis Cough Cough Diabetes mellitus Dyslipidemia Dysphagia Essential hypertension Fibromyalgia Gastric pain Obese ROXIE (obstructive sleep apnea) Pulmonary nodules Sinusitis Tracheobronchomalacia Urinary incontinence Surgical History (Updated 08/19/22 @ 19:40 by Steven Myles MD) H/O breast biopsy H/O heart artery stent H/O left knee surgery H/O: hysterectomy History of bronchoscopy Hx of colonoscopy Hx of esophagogastroduodenoscopy Family History Family History Father Hypertension Mother Hypertension Diabetes Daughter Diabetes Brother No problems noted. Social History Social History Household Members: Children Alcohol intake: never Patient Tobacco Use Status: Never used Tobacco Second Hand Smoke Exposure: Yes Advance Directives: No Advance Directives Information Provided: Yes Physical Exam Vital Signs: Vital Signs: Last Vital Signs Temp 98.6 F 08/19/22 18:37 Pulse 64 08/19/22 18:37 Resp 16 08/19/22 18:37 BP 127/57 L 08/19/22 18:37 Pulse Ox 98 08/19/22 18:37 O2 Del Method Room Air 08/19/22 18:37 BMI result Body Mass Index 35.4 Appearance: Alert. Oriented X3. No acute distress. Anxious ENT: Pharynx normal. Oral Mucosa moist Neck: Normal inspection. Neck supple. CVS: Normal heart rate and rhythm. Pulses normal. Respiratory: No respiratory distress. Equal air entry bilateral, no wheezing/rales/rhonchi Abdomen: Soft and nontender. Bowel sounds are present, no mass palpable, no CVA tenderness Skin: Skin warm and dry. Normal skin color. Normal skin turgor. Extremities: No lower extremity edema. No calf tenderness Neuro: Oriented X 3. No motor deficit. No sensory deficit.No cerebellar signs , cranial nerves II-XII intact Medical Decision Making Lab Data MDM Lab Attestation statement: I reviewed the patient's lab results. 08/19/22 18:47 08/19/22 18:47 Labs: Lab Results 08/19/22 08/19/22 08/19/22 Range/Units 18:47 18:47 18:47 WBC 10.1 (4.8-10.8) X10*3/uL RBC 4.19 L (4.20-5.50) X10*6/uL Hgb 12.9 (12.0-16.0) g/dl Hct 37.6 (37.0-47.0) % MCV 89.7 (80.0-98.0) fL MCH 30.8 (27.0-33.0) pg MCHC 34.3 (31.0-35.0) g/dl RDW 13.2 (11.0-16.0) % Plt Count 227 (160-400) X10*3/uL MPV 10.8 (9.4-12.3) fL Immature Gran % (Auto) 0.6 H (0.0-0.4) % Neut % (Auto) 89.9 H (45-73) % Lymph % (Auto) 7.8 L (20-40) % Haines % (Auto) 1.5 L (2-11) % Eos % (Auto) 0.0 (0-4) % Baso % (Auto) 0.2 (0-2) % Lymph # (Auto) 0.8 L (1.2-4.9) X10*3/uL Haines # (Auto) 0.2 (0.1-1.2) X10*3/uL Eos # (Auto) 0.0 (0.0-0.4) X10*3/uL Baso # (Auto) 0.0 (0.0-0.2) X10*3/uL Abs Immat Gran (auto) 0.06 H (0.00-0.03) X10*3/uL Absolute Neuts (auto) 9.1 H (2.0-8.3) x10*3/uL Absolute Nucleated RBC 0.000 (0.0-0.012) X10*3/uL Nucleated RBC % (auto) 0.0 (0.0-0.2) /100WBC Sodium 134 L (135-145) mmol/L Potassium 5.2 H D (3.3-5.1) mmol/L Chloride 102 (96-108) mmol/L Carbon Dioxide 22 (22-29) mmol/L Anion Gap 15 (12-20) BUN 32 H (9-16) mg/dL Creatinine 0.99 (0.5-1.4) mg/dL Estim Creat Clear Calc 40.3 Estimated GFR 55 Random Glucose 336 H (60-115) mg/dL Calcium 10.1 (8.4-10.2) mg/dL Troponin I High Sens 7.8 (<3.5-17.0) ng/L Independent Interpretation I performed an independent interpretation of an: EKG Interpretation: Sinus rhythm heart rate 71 beats per minute left axis deviation occasional PVCs Q-wave in inferior leads no acute ST-T wave changes no acute ischemia Discharge Plan Discharge Clinical Impression: Chest pain, Anxiety Patient Disposition: Home, Self-Care Instructions: Chest Pain (ED), Anxiety (ED) Additional Instructions: Continue medications as prescribed by PCP Your blood pressure has improved See your PCP for further follow-up Contin?e con los medicamentos seg?n lo prescrito por el PCP Trevino presi?n arterial kumar lala Consulte a trevino PCP para un seguimiento adicional Prescriptions: No Action (DME) lancets [OneTouch UltraSoft Lancets] Misc See Rx Instructions .ROUTE .MEDSUPPLY Qty: 100 Rx Instructions: As directed (DME) blood-glucose meter [OneTouch Verio Meter] Misc See Rx Instructions .ROUTE .MEDSUPPLY Qty: 1 0RF Rx Instructions: As directed (DME) OneTouch Verio test strips Strip See Rx Instructions .ROUTE .MEDSUPPLY Qty: 100 0RF Rx Instructions: As directed Myrbetriq 25 mg tablet extended release 24 hr 25 mg PO DAILY 30 Days Qty: 30 1RF (DME) Aerochamber MV Spacer See Rx Instructions .ROUTE .MEDSUPPLY Qty: 1 0RF Rx Instructions: As directed nystatin 100,000 unit/mL suspension 1 ml PO BID 30 Days Qty: 60 2RF Rx Instructions: swish and swallow ipratropium-albuterol 0.5 mg-3 mg(2.5 mg base)/3 mL solution for nebulization 3 ml inhalation Q6H PRN (Reason: for wheezing) Qty: 180 2RF omeprazole 40 mg capsule,delayed release(DR/EC) 40 mg PO DAILY Qty: 30 0RF Lantus Solostar U-100 Insulin 100 unit/mL (3 mL) insulin pen 35 unit subcut DAILY 30 Days Qty: 10.5 11RF clonidine 0.1 mg/24 hr patch weekly 1 patch topical QWEEK ipratropium bromide 0.03 % spray,non-aerosol intranasal Linzess 145 mcg capsule 145 mcg PO DAILY simethicone [Gas Relief Extra Strength] 125 mg capsule 0 mg PO spironolactone 25 mg tablet 25 mg PO DAILY sertraline 25 mg tablet 25 mg PO DAILY cholecalciferol (vitamin D3) 50 mcg (2,000 unit) tablet 50 mcg PO DAILY (DME) pen needle, diabetic 32 gauge x 5/32 needle See Rx Instructions .ROUTE .MEDSUPPLY Qty: 50 Rx Instructions: As directed Januvia 100 mg tablet 100 mg PO DAILY loteprednol etabonate 0.5 % drops,suspension 1 drp ophthalmic (eye) QID azelastine 137 mcg (0.1 %) aerosol,spray 2 spray intranasal BID 30 Days Qty: 30 6RF Rx Instructions: administer into each nostril atorvastatin 80 mg tablet 80 mg PO QAM losartan 25 mg tablet 25 mg PO DAILY latanoprost 0.005 % drops 1 drp ophthalmic (eye) BEDTIME Brilinta 90 mg tablet 90 mg PO BID metoprolol succinate 25 mg tablet extended release 24 hr 25 mg PO DAILY nitroglycerin 0.4 mg tablet, sublingual 0 mg sublingual montelukast [Singulair] 10 mg tablet 10 mg PO BEDTIME 30 Days Qty: 30 11RF fluticasone propion-salmeterol [Advair HFA] 115-21 mcg/actuation HFA aerosol inhaler 2 puff inhalation Q12H 30 Days Qty: 12 11RF albuterol sulfate [Ventolin HFA] 90 mcg/actuation HFA aerosol inhaler 2 puff PO Q4H PRN (Reason: for wheezing) 30 Days Qty: 18 6RF Magic Mouthwash Diphen/Lido/Antacid 1:1:1 240 mL suspension 10 ml PO QID PRN (Reason: sore throat) 14 Days Qty: 240 1RF Rx Instructions: Lidocaine Viscous 2 % 80mL; diphenhydramine 12.5 mg/5 mL 80mL; aluminum-mag hydrox-simeth [id number]/5mL 80mL Print Language: Mongolian
--- NOTE | 2022-08-19 18:35 | ECG_ITS ---
Test Reason : WEAKNESS Blood Pressure : / mmHG Vent. Rate : 071 BPM Atrial Rate : 071 BPM P-R Int : 164 ms QRS Dur : 084 ms QT Int : 382 ms P-R-T Axes : 058 -34 -26 degrees QTc Int : 415 ms Sinus rhythm with sinus arrhythmia with frequent Premature ventricular complexes Left axis deviation Inferior infarct , age undetermined Abnormal ECG When compared with ECG of 23-OCT-2021 06:00, Premature ventricular complexes are now Present Inferior infarct is now Present Inverted T waves have replaced nonspecific T wave abnormality in Inferior leads Referred By: Steven Myles Electronically Signed By:CAMI AMARAL
[2022-08-19 18:37] VITALS: BP 127/57; PULSE 64; RESP 16; TEMP 37; O2SAT 98; BMI 35.4
[2022-08-19 18:51] LABS: MANUAL DIFF FLAG NO
[2022-08-19 18:53] LABS: Basophils Percent Auto 0.2 % (0-2); Hematocrit 37.6 % (37.0-47.0); Hemoglobin 12.9 g/dl (12.0-16.0); Imm Gran Abs Auto 0.06 X10*3/uL (0.00-0.03); Imm Gran Pct Auto 0.6 % (0.0-0.4); Lymphocytes Absolute Auto 0.8 X10*3/uL (1.2-4.9); Lymphocytes Percent Auto 7.8 % (20-40); Mean Corpuscular HGB Conc 34.3 g/dl (31.0-35.0); Mean Corpuscular Hemoglobin 30.8 pg (27.0-33.0); Mean Corpuscular Volume 89.7 fL (80.0-98.0); Mean Platelet Volume 10.8 fL (9.4-12.3); Monocytes Absolute Auto 0.2 X10*3/uL (0.1-1.2); Monocytes Percent Auto 1.5 % (2-11); Neutrophils Absolute Auto 9.1 x10*3/uL (2.0-8.3); Neutrophils Percent Auto 89.9 % (45-73); Platelet Count 227 X10*3/uL (160-400); Red Blood Count 4.19 X10*6/uL (4.20-5.50); Red Cell Distribution Width 13.2 % (11.0-16.0); White Blood Count 10.1 X10*3/uL (4.8-10.8)
[2022-08-19 19:04] LABS: Anion Gap 15 (12-20); Blood Urea Nitrogen 32 mg/dL (9-16); Calcium 10.1 mg/dL (8.4-10.2); Carbon Dioxide 22 mmol/L (22-29); Chloride 102 mmol/L (96-108); Creatinine Clr Calc Pharmacy 40.3; Estimated Glomerular Filt Rate 55; Glucose Random 336 mg/dL (60-115); Potassium 5.2 mmol/L (3.3-5.1); Sodium 134 mmol/L (135-145)
[2022-08-19 19:13] LABS: Troponin-I High Sensitivity 7.8 ng/L (<3.5-17.0)
== END 2022-08-19 20:03 | disposition home or self-care (01) ==
PROVIDERS: Emergency Provider Internal Medicine
DX: R07.9 Chest pain, unspecified (principal); F41.9 Anxiety disorder, unspecified; E11.9 Type 2 diabetes mellitus without complications; I10 Essential (primary) hypertension; E78.5 Hyperlipidemia, unspecified; Z79.85 Long-term (current) use of injectable non-insulin antidiabetic drugs; Z79.899 Other long term (current) drug therapy
CPT/HCPCS: 36415; 80048; 84484; 85025; 93005; 99283; 99284

== ENCOUNTER 2022-09-09 15:26 | Emergency (ER) | payer OTHER, SELFPAY ==
--- NOTE | ~2022-09-09 | XR_ITS ---
EXAMINATION: XR CHEST CLINICAL INFORMATION: Dizziness. COMPARISON: None available. TECHNIQUE: Frontal view of the chest was obtained. FINDINGS: No significant abnormality is noted involving the heart, lungs, mediastinum, bony thorax or soft tissues. XR/XR chest 1V IMPRESSION: Unremarkable chest examination.
--- NOTE | ~2022-09-09 | CT_ITS ---
EXAMINATION: CT HEAD WITHOUT CONTRAST CLINICAL INFORMATION: Dizziness. Frontal sinus tenderness. COMPARISON: Brain MRI from 10/09/2019. TECHNIQUE: Contiguous axial imaging was performed from the skull base to vertex without intravenous administration of contrast. This CT examination was performed using dose optimization techniques as appropriate, variously including the following: *Automated exposure control. *Adjustment of mA and/or kV according to patient size (this includes techniques or standardized protocols for targeted exams where dose is matched to indication/reason for exam; i.e. extremities or head). *Use of iterative reconstruction technique. DLP: 521 mGy-cm FINDINGS: There is no evidence of acute intracranial hemorrhage or edematous territorial infarction. Gil-white matter differentiation is preserved. A few foci of hypoattenuation in the periventricular and deep white matter are consistent with mild microangiopathy. Proportional prominence of the ventricles and sulcal spaces without evidence of obstructive hydrocephalus. No abnormal mass effect or midline shift. No extra-axial fluid collections. Calcific atherosclerotic disease of the intracranial internal carotid and vertebral arteries. No hyperdense vessel sign. No acute soft tissue or osseous abnormalities. Mild mucosal thickening of the paranasal sinuses. The mastoid air cells and middle ear cavities are clear. Anterior subluxation of the temporomandibular joints. CT/CT head/brain wo IV con IMPRESSION: 1. No evidence of acute intracranial hemorrhage or edematous territorial infarction. 2. Mild underlying microangiopathy and generalized cerebral volume loss.
[2022-09-09 15:37] VITALS: BP 148/44; BP 162/75; PULSE 61; PULSE 82; RESP 13; TEMP 36.9; O2SAT 96; O2SAT 97; BMI 30.3
--- NOTE | 2022-09-09 15:53 | PC.NURSE ---
pt aox4, comes in by ambulance from home. pt called EMS after getting up from lying down and exp nausea and blurry vision, pt called EMS and [place] [facility] [place]. When talking to pt with press leader pt reported some sudden dizziness and lower head/back of neck numbness which resolved after a few moments. Pt also reports that their nausea and blurry vision has also resolved. Neuros intact, upper and lower extrem strength equal bilaterally, no facial droop, speech clear and consistent. Pt has diabetes, EMS POC 117. Pt also has environmental allergies and allergies to odors, pt used an prescribed albuterol treatment with relief at home this morning bc of these allergies which she suspects exacerbated her asthma. pt NSR on monitor 60 bpm, BP 148/44. Reports no shortness of breath
--- NOTE | 2022-09-09 16:46 | ECG_ITS ---
Test Reason : DIZZINESS Blood Pressure : / mmHG Vent. Rate : 055 BPM Atrial Rate : 055 BPM P-R Int : 174 ms QRS Dur : 096 ms QT Int : 446 ms P-R-T Axes : 043 -22 -09 degrees QTc Int : 426 ms Sinus bradycardia Inferior infarct (cited on or before 19-AUG-2022) Abnormal ECG When compared with ECG of 19-AUG-2022 18:37, Premature ventricular complexes are no longer Present Referred By: Gena Graham Electronically Signed By:LALITHA PARMAR MD
--- NOTE | 2022-09-09 16:47 | ED.GENADULT ---
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 Patient was making breakfast around 11:00 when she started to have blurry vision and feeling dizziness and room spinning around her, patient has been suffering from pressure on the frontal area for the past 3 weeks, declined CP or SOB, patient's symptoms lasted for about 30 minutes then resolved on its own, symptoms was associated with nausea but no vomiting, no abdominal pain or diarrhea. Patient checked her blood sugar at home was 130 and blood pressure was slightly high. Patient now is asymptomatic and feels she is back to her normal baseline. Related Data Home Medications Medication Instructions Recorded Confirmed clonidine 0.1 mg/24 hr weekly 1 patch topical QWEEK 12/30/19 10/10/21 transdermal patch ipratropium bromide 21 mcg (0.03 intranasal 12/30/19 10/10/21 %) nasal spray lancets (OneTouch UltraSoft #100 ea 01/06/20 10/10/21 Lancets) loteprednol etabonate 0.5 % eye 1 drp ophthalmic (eye) QID 08/17/20 10/10/21 drops,suspension pen needle, diabetic 32 gauge x #50 ea 08/17/20 10/10/21 sitagliptin phosphate 100 mg tablet 100 mg PO DAILY 08/17/20 10/10/21 cholecalciferol (vitamin D3) 50 50 mcg PO DAILY 09/21/20 10/10/21 mcg (2,000 unit) tablet linaclotide 145 mcg capsule 145 mcg PO DAILY 11/26/20 10/10/21 (Linzess) sertraline 25 mg tablet 25 mg PO DAILY 11/26/20 10/10/21 simethicone 125 mg capsule (Gas 0 mg PO 11/26/20 10/10/21 Relief Extra Strength) spironolactone 25 mg tablet 25 mg PO DAILY 11/26/20 10/10/21 atorvastatin 80 mg tablet 80 mg PO QAM 07/26/22 latanoprost 0.005 % eye drops 1 drp ophthalmic (eye) BEDTIME 07/26/22 losartan 25 mg tablet 25 mg PO DAILY 07/26/22 metoprolol succinate 25 mg 25 mg PO DAILY 07/26/22 tablet,extended release 24 hr nitroglycerin 0.4 mg sublingual 0 mg sublingual 07/26/22 tablet ticagrelor 90 mg tablet (Brilinta) 90 mg PO BID 07/26/22 Previous Rx's Medication Instructions Recorded insulin glargine 100 unit/mL (3 35 unit (0.35 mL) subcut DAILY 30 12/18/19 mL) subcutaneous pen (Lantus days #10.5 mL Solostar U-100 Insulin) blood sugar diagnostic (OneTouch #100 ea 01/07/20 Verio test strips) blood-glucose meter (OneTouch #1 ea 01/07/20 Verio Meter) mirabegron 25 mg tablet,extended 25 mg PO DAILY 30 days #30 tabs 10/28/20 release 24 hr (Myrbetriq) omeprazole 40 mg capsule,delayed 40 mg PO DAILY #30 caps 01/06/21 release azelastine 137 mcg (0.1 %) nasal 2 spray intranasal BID 30 days #30 01/19/21 spray aerosol mL inhalational spacing device #1 ea 01/25/21 (Aerochamber MV spacer) nystatin 100,000 unit/mL oral 1 ml PO BID 30 days #60 mL 10/20/21 suspension ipratropium 0.5 mg-albuterol 3 mg 3 ml inhalation Q6H PRN for 02/09/22 (2.5 mg base)/3 mL nebulization wheezing #180 mL soln Magic Mouthwash 10 ml PO QID PRN sore throat 14 07/26/22 Diphen/Lido/Antacid 1:1:1 240 mL days #240 mL suspension albuterol sulfate 90 mcg/actuation 2 puff PO Q4H PRN for wheezing 30 07/26/22 aerosol inhaler (Ventolin HFA) days #18 ea fluticasone propionate 115 2 puff inhalation Q12H 30 days #12 07/26/22 mcg-salmeterol 21 mcg/actuation grams HFA inhaler (Advair HFA) montelukast 10 mg tablet 10 mg PO BEDTIME 30 days #30 tabs 07/26/22 (Singulair) Allergies Allergy/AdvReac Type Severity Reaction Status Date / Time fluticasone [Flovent HFA] Allergy Unknown lip Verified 07/27/22 14:38 swelling umeclidinium AdvReac Intermediate Chest Pain Verified 07/26/22 11:35 [From Incruse Ellipta] empagliflozin [Jardiance] AdvReac Unknown vaginal Verified 07/27/22 14:38 itch metformin AdvReac Unknown stomach Verified 07/27/22 14:38 pain sitagliptin [Januvia] AdvReac Unknown stomach Verified 07/27/22 14:38 pain acetaminophen [From Percocet] AdvReac Nausea and Verified 07/27/22 14:38 Vomiting hydrocodone [From Vicodin] AdvReac Nausea and Verified 07/27/22 14:38 Vomiting ibuprofen [From Motrin] AdvReac Stomach Verified 07/27/22 14:38 Upset oxycodone [From Percocet] AdvReac Nausea and Verified 07/27/22 14:38 Vomiting Review of Systems Review of Systems: All other systems are reviewed and are negative Constitutional: Reports as per HPI and Reports no additional constitutional complaints Eyes: Reports as per HPI and Reports no additional eye complaints Reports system reviewed and no additional complaints, except as documented Cardiovascular: Reports as per HPI and Reports no additional cardiovascular complaints Respiratory: Reports as per HPI and Reports no additional respiratory complaints Gastrointestinal: Reports as per HPI and Reports no additional gastrointestinal complaints Genitourinary: Reports no additional female genitourinary complaints Musculoskeletal: Reports no additional musculoskeletal complaints Skin/Breast: Reports system reviewed and no additional complaints, except as docu Psychiatric: Reports no additional psychiatric complaints Endocrine: Reports no additional endocrine complaints Hematologic/Lymphatic: Reports no additional hematologic/lymphatic complaints Allergic/Immunologic: Reports no additional allergic/immunologic complaints Reports system reviewed and no additional complaints, except as documented and Reports Abnormal speech present PMFSH Past Medical History Medical History Anxiety and depression Asthma Atherosclerotic cardiovascular disease Chronic allergic rhinitis Cough Cough Diabetes mellitus Dyslipidemia Dysphagia Essential hypertension Fibromyalgia Gastric pain Obese ROXIE (obstructive sleep apnea) Pulmonary nodules Sinusitis Tracheobronchomalacia Urinary incontinence Surgical History H/O breast biopsy H/O heart artery stent H/O left knee surgery H/O: hysterectomy History of bronchoscopy Hx of colonoscopy Hx of esophagogastroduodenoscopy Family History Family History Father Hypertension Mother Hypertension Diabetes Daughter Diabetes Brother No problems noted. Social History Social History Household Members: Children Alcohol intake: former Patient Tobacco Use Status: Never used Tobacco Smoked in Last 30 Days: No Second Hand Smoke Exposure: Yes Use of substances other than those prescribed or required for medical reasons: No Advance Directives: No Advance Directives Information Provided: No Physical Exam ED Vital Signs: Vital Signs - 24 hr 09/09/22 15:37 09/09/22 18:38 Temperature 98.4 F Pulse Rate 61 57 Respiratory Rate 13 14 Blood Pressure 148/44 H 127/68 Pulse Oximetry 96 98 Oxygen Delivery Method Room Air Room Air BMI result Body Mass Index 30.3 Vital signs have been reviewed as appeared to be correct. Blood pressure normal. Heart rate normal. Respiration rate normal. Temperature normal. Oxygen saturation normal. Appearance: Alert. Oriented X3. No acute distress. Head: Normal external exam. Normocephalic. Atraumatic. No William signs noted. No raccoon eyes noted Eyes: PERRLA. EOMI. Conjunctiva and sclera normal. Eyelids normal. ENT: TM's Normal. Pharynx normal. Uvula midline. Moist mucous membranes. No trismus noted. No drooling noted. No muffled voice noted, tenderness over left frontal sinus with percussion. Neck: Normal inspection. Neck supple. FROM. No adenopathy. Thyroid Normal. No meningeal signs. No neck mass noted. CVS: Normal heart rate and rhythm. Heart sound normal. No murmurs noted. Pulses normal throughout. Respiratory: No respiratory distress. Painless inspiration. Breath sounds normal. No wheezes/rales/rhonchi noted. Chest nontender. No accessory muscle usage noted or decreased air movement noted. Abdomen: Soft and nontender. Bowel sounds normal in all 4 quadrants. No distention noted. No organomegaly noted. No visible injury noted. Back: No CVA tenderness. Full range of motion noted. Skin: Skin warm and dry. Normal skin color. Normal skin turgor. No rashes/lesions/lacerations noted. Extremities: No lower extremity edema. Extremities exhibit normal range of motion. Extremities nontender. Neuro: Oriented X 3. Cranial nerve exam: II-XII are grossly intact No motor deficit. No sensory deficit. Reflexes normal. Course Course Course Narrative: A 76-year-old female came in for evaluation after having some dizziness and blurry vision for about 30 minutes then all symptoms resolved now, patient had a normal neuro exam, no stroke concerned. Physical exam is consistent with frontal sinusitis will start the patient on Augmentin. Medications Administered Discontinued Medications Generic Name Dose Route Start Last Admin Trade Name Freq PRN Reason Stop Dose Admin Amoxicillin/Clavulanate Potassium 500 mg 09/09/22 16:45 09/09/22 17:20 Amoxicillin/Potassium Clav 500 Mg Tablet PO 09/09/22 16:46 500 mg ONCE ONE Administration Medical Decision Making Differential Diagnosis Differential Diagnoses: The differential diagnosis associated with the presentation includes (Anxiety, intracranial bleed, stroke, hypoglycemia, dehydration, electrolyte abnormality, severe anemia, ACS, pneumonia, UTI.) Admission/Observation Consideration of admission/observation: Escalation of care including admission/observation considered Lab Data MDM Lab Attestation statement: I reviewed the patient's lab results. 09/09/22 17:04 09/09/22 17:04 Labs: Lab Results 09/09/22 09/09/22 09/09/22 Range/Units 17:04 17:04 17:04 WBC 7.3 (4.8-10.8) X10*3/uL RBC 4.25 (4.20-5.50) X10*6/uL Hgb 13.0 (12.0-16.0) g/dl Hct 38.8 (37.0-47.0) % MCV 91.3 (80.0-98.0) fL MCH 30.6 (27.0-33.0) pg MCHC 33.5 (31.0-35.0) g/dl RDW 13.2 (11.0-16.0) % Plt Count 188 (160-400) X10*3/uL MPV 10.9 (9.4-12.3) fL Immature Gran % (Auto) 0.3 (0.0-0.4) % Neut % (Auto) 71.2 (45-73) % Lymph % (Auto) 19.0 L (20-40) % Johnston % (Auto) 7.6 (2-11) % Eos % (Auto) 1.4 (0-4) % Baso % (Auto) 0.5 (0-2) % Lymph # (Auto) 1.4 (1.2-4.9) X10*3/uL [place] # (Auto) 0.6 (0.1-1.2) X10*3/uL Eos # (Auto) 0.1 (0.0-0.4) X10*3/uL Baso # (Auto) 0.0 (0.0-0.2) X10*3/uL Abs Immat Gran (auto) 0.02 (0.00-0.03) X10*3/uL Absolute Neuts (auto) 5.2 (2.0-8.3) x10*3/uL Absolute Nucleated RBC 0.000 (0.0-0.012) X10*3/uL Nucleated RBC % (auto) 0.0 (0.0-0.2) /100WBC Sodium 142 (135-145) mmol/L Potassium 4.4 (3.3-5.1) mmol/L Chloride 107 (96-108) mmol/L Carbon Dioxide 24 (22-29) mmol/L Anion Gap 15 (12-20) BUN 28 H (9-16) mg/dL Creatinine 0.88 (0.5-1.4) mg/dL Estim Creat Clear Calc 45.6 Estimated GFR > 60 Random Glucose 102 (60-115) mg/dL Calcium 10.1 (8.4-10.2) mg/dL Total Bilirubin 0.4 (0.0-1.0) mg/dL Direct Bilirubin 0.2 (0.0-0.5) mg/dL AST 22 (5-31) U/L ALT 22 (0-31) U/L Alkaline Phosphatase 59 (39-117) U/L Troponin I High Sens 11.2 (<3.5-17.0) ng/L B-Natriuretic Peptide (<100) pg/mL Total Protein 7.3 (6.5-8.0) g/dL Albumin 4.1 (3.5-5.0) g/dL Lipase 8 (8-78) U/L Urine Color Urine Appearance Urine pH (5.0-9.0) Ur Specific [place] (1.005-1.025) Urine Protein (Neg-Trace) mg/dL Urine Glucose (UA) (Negative) mg/dL Urine Ketones (Negative) mg/dL Urine Blood (Negative) Urine Nitrite (Negative) Ur Leukocyte Esterase (Negative) 09/09/22 09/09/22 Range/Units 17:04 17:37 WBC (4.8-10.8) X10*3/uL RBC (4.20-5.50) X10*6/uL Hgb (12.0-16.0) g/dl Hct (37.0-47.0) % MCV (80.0-98.0) fL MCH (27.0-33.0) pg MCHC (31.0-35.0) g/dl RDW (11.0-16.0) % Plt Count (160-400) X10*3/uL MPV (9.4-12.3) fL Immature Gran % (Auto) (0.0-0.4) % Neut % (Auto) (45-73) % Lymph % (Auto) (20-40) % Johnston % (Auto) (2-11) % Eos % (Auto) (0-4) % Baso % (Auto) (0-2) % Lymph # (Auto) (1.2-4.9) X10*3/uL [place] # (Auto) (0.1-1.2) X10*3/uL Eos # (Auto) (0.0-0.4) X10*3/uL Baso # (Auto) (0.0-0.2) X10*3/uL Abs Immat Gran (auto) (0.00-0.03) X10*3/uL Absolute Neuts (auto) (2.0-8.3) x10*3/uL Absolute Nucleated RBC (0.0-0.012) X10*3/uL Nucleated RBC % (auto) (0.0-0.2) /100WBC Sodium (135-145) mmol/L Potassium (3.3-5.1) mmol/L Chloride (96-108) mmol/L Carbon Dioxide (22-29) mmol/L Anion Gap (12-20) BUN (9-16) mg/dL Creatinine (0.5-1.4) mg/dL Estim Creat Clear Calc Estimated GFR Random Glucose (60-115) mg/dL Calcium (8.4-10.2) mg/dL Total Bilirubin (0.0-1.0) mg/dL Direct Bilirubin (0.0-0.5) mg/dL AST (5-31) U/L ALT (0-31) U/L Alkaline Phosphatase (39-117) U/L Troponin I High Sens (<3.5-17.0) ng/L B-Natriuretic Peptide 30 (<100) pg/mL Total Protein (6.5-8.0) g/dL Albumin (3.5-5.0) g/dL Lipase (8-78) U/L Urine Color Yellow Urine Appearance Clear Urine pH 5.5 (5.0-9.0) Ur Specific [place] 1.015 (1.005-1.025) Urine Protein Negative (Neg-Trace) mg/dL Urine Glucose (UA) Negative (Negative) mg/dL Urine Ketones Negative (Negative) mg/dL Urine Blood Negative (Negative) Urine Nitrite Negative (Negative) Ur Leukocyte Esterase Negative (Negative) Independent Interpretation I performed an independent interpretation of an: EKG (Sinus bradycardia at 55 BPM, LEFT AXIS DEVIATION, NORMAL INTERVALS, NO ST-T CHANGES NO CHANGE FROM PREVIOUS EKG.), Plain X-Ray (Chest: No intrathoracic pathology.) and CT Scan (Head: No acute intracranial pathology.) Radiology Impression Discussion of test interpretation with radiology: I have reviewed the radiologist's reading. Chronic Conditions Patient?s care impacted by: Diabetes and Hypertension Discharge Plan Discharge Clinical Impression: Acute frontal sinusitis Patient Disposition: Home, Self-Care Instructions: Sinusitis (ED) Prescriptions: No Action (DME) lancets [OneTouch UltraSoft Lancets] Misc See Rx Instructions .ROUTE .MEDSUPPLY Qty: 100 Rx Instructions: As directed (DME) blood-glucose meter [OneTouch Verio Meter] Misc See Rx Instructions .ROUTE .MEDSUPPLY Qty: 1 0RF Rx Instructions: As directed (DME) OneTouch Verio test strips Strip See Rx Instructions .ROUTE .MEDSUPPLY Qty: 100 0RF Rx Instructions: As directed Myrbetriq 25 mg tablet extended release 24 hr 25 mg PO DAILY 30 Days Qty: 30 1RF (DME) Aerochamber MV Spacer See Rx Instructions .ROUTE .MEDSUPPLY Qty: 1 0RF Rx Instructions: As directed nystatin 100,000 unit/mL suspension 1 ml PO BID 30 Days Qty: 60 2RF Rx Instructions: swish and swallow ipratropium-albuterol 0.5 mg-3 mg(2.5 mg base)/3 mL solution for nebulization 3 ml inhalation Q6H PRN (Reason: for wheezing) Qty: 180 2RF omeprazole 40 mg capsule,delayed release(DR/EC) 40 mg PO DAILY Qty: 30 0RF Lantus Solostar U-100 Insulin 100 unit/mL (3 mL) insulin pen 35 unit subcut DAILY 30 Days Qty: 10.5 11RF clonidine 0.1 mg/24 hr patch weekly 1 patch topical QWEEK ipratropium bromide 0.03 % spray,non-aerosol intranasal Linzess 145 mcg capsule 145 mcg PO DAILY simethicone [Gas Relief Extra Strength] 125 mg capsule 0 mg PO spironolactone 25 mg tablet 25 mg PO DAILY sertraline 25 mg tablet 25 mg PO DAILY cholecalciferol (vitamin D3) 50 mcg (2,000 unit) tablet 50 mcg PO DAILY (DME) pen needle, diabetic 32 gauge x 5/32 needle See Rx Instructions .ROUTE .MEDSUPPLY Qty: 50 Rx Instructions: As directed Januvia 100 mg tablet 100 mg PO DAILY loteprednol etabonate 0.5 % drops,suspension 1 drp ophthalmic (eye) QID azelastine 137 mcg (0.1 %) aerosol,spray 2 spray intranasal BID 30 Days Qty: 30 6RF Rx Instructions: administer into each nostril atorvastatin 80 mg tablet 80 mg PO QAM losartan 25 mg tablet 25 mg PO DAILY latanoprost 0.005 % drops 1 drp ophthalmic (eye) BEDTIME Brilinta 90 mg tablet 90 mg PO BID metoprolol succinate 25 mg tablet extended release 24 hr 25 mg PO DAILY nitroglycerin 0.4 mg tablet, sublingual 0 mg sublingual montelukast [Singulair] 10 mg tablet 10 mg PO BEDTIME 30 Days Qty: 30 11RF fluticasone propion-salmeterol [Advair HFA] 115-21 mcg/actuation HFA aerosol inhaler 2 puff inhalation Q12H 30 Days Qty: 12 11RF albuterol sulfate [Ventolin HFA] 90 mcg/actuation HFA aerosol inhaler 2 puff PO Q4H PRN (Reason: for wheezing) 30 Days Qty: 18 6RF Magic Mouthwash Diphen/Lido/Antacid 1:1:1 240 mL suspension 10 ml PO QID PRN (Reason: sore throat) 14 Days Qty: 240 1RF Rx Instructions: Lidocaine Viscous 2 % 80mL; diphenhydramine 12.5 mg/5 mL 80mL; aluminum-mag hydrox-simeth [id number]/5mL 80mL Referrals: Liset Mitchell MD [Primary Care Provider] -
[2022-09-09 17:09] LABS: MANUAL DIFF FLAG NO
[2022-09-09 17:12] LABS: Basophils Percent Auto 0.5 % (0-2); Eosinophils Absolute Auto 0.1 X10*3/uL (0.0-0.4); Eosinophils Percent Auto 1.4 % (0-4); Hematocrit 38.8 % (37.0-47.0); Imm Gran Abs Auto 0.02 X10*3/uL (0.00-0.03); Imm Gran Pct Auto 0.3 % (0.0-0.4); Lymphocytes Absolute Auto 1.4 X10*3/uL (1.2-4.9); Mean Corpuscular HGB Conc 33.5 g/dl (31.0-35.0); Mean Corpuscular Hemoglobin 30.6 pg (27.0-33.0); Mean Corpuscular Volume 91.3 fL (80.0-98.0); Mean Platelet Volume 10.9 fL (9.4-12.3); Monocytes Absolute Auto 0.6 X10*3/uL (0.1-1.2); Monocytes Percent Auto 7.6 % (2-11); Neutrophils Absolute Auto 5.2 x10*3/uL (2.0-8.3); Neutrophils Percent Auto 71.2 % (45-73); Platelet Count 188 X10*3/uL (160-400); Red Blood Count 4.25 X10*6/uL (4.20-5.50); Red Cell Distribution Width 13.2 % (11.0-16.0); White Blood Count 7.3 X10*3/uL (4.8-10.8)
[2022-09-09] MEDS: Amoxicillin/Potassium Clav 500 MG TABLET PO (17:20)
[2022-09-09 17:39] LABS: Alanine Aminotransferase 22 U/L (0-31); Albumin Level 4.1 g/dL (3.5-5.0); Alkaline Phosphatase 59 U/L (39-117); Anion Gap 15 (12-20); Aspartate Amino Transferase 22 U/L (5-31); Bilirubin Direct 0.2 mg/dL (0.0-0.5); Bilirubin Total 0.4 mg/dL (0.0-1.0); Blood Urea Nitrogen 28 mg/dL (9-16); Calcium 10.1 mg/dL (8.4-10.2); Carbon Dioxide 24 mmol/L (22-29); Chloride 107 mmol/L (96-108); Creatinine Clr Calc Pharmacy 45.6; Estimated Glomerular Filt Rate > 60; Glucose Random 102 mg/dL (60-115); Lipase 8 U/L (8-78); Potassium 4.4 mmol/L (3.3-5.1); Sodium 142 mmol/L (135-145); Total Protein 7.3 g/dL (6.5-8.0)
[2022-09-09 17:42] LABS: B Type Natriuretic Peptide 30 pg/mL (<100)
[2022-09-09 17:46] LABS: Appearance Urine Clear; Color Urine Yellow; Glucose Urine UA Negative (Negative); Leukocyte Esterase Urine Negative (Negative); Nitrite Urine Negative (Negative); PH 5.5 (5.0-9.0); Specific Gravity - Urine 1.015 (1.005-1.025); Urine Blood Negative (Negative); Urine Ketones Negative (Negative); Urine Protein Negative (Neg-Trace)
[2022-09-09 17:47] LABS: Troponin-I High Sensitivity 11.2 ng/L (<3.5-17.0)
[2022-09-09 18:38] VITALS: BP 127/68; PULSE 57; RESP 14; O2SAT 98
== END 2022-09-09 19:58 | disposition home or self-care (01) ==
PROVIDERS: Emergency Provider Emergency Medicine; PCP Family Medicine
DX: J01.10 Acute frontal sinusitis, unspecified (principal); E11.9 Type 2 diabetes mellitus without complications; I10 Essential (primary) hypertension; E78.5 Hyperlipidemia, unspecified; Z79.4 Long term (current) use of insulin; Z79.899 Other long term (current) drug therapy
CPT/HCPCS: 36415; 70450; 71045; 80048; 80076; 81003; 83690; 83880; 84484; 85025; 93005; 99284

== ENCOUNTER → 2022-09-09 16:46 | Outpatient (BNV) | payer OTHER, SELFPAY | PROVIDERS: Emergency Provider Emergency Medicine; PCP Family Medicine; Visit Provider Internal Medicine Cardiovascular Disease | DX: R00.1 Bradycardia, unspecified (principal) | CPT/HCPCS: 93010 ==

== ENCOUNTER 2022-11-21 11:03 | Outpatient (AMB) | payer OTHER, SELFPAY ==
[2022-11-21 11:06] VITALS: PULSE 69; O2SAT 98; BMI 30.3
--- NOTE | 2022-11-21 11:06 | A.OFFVIS_ITS ---
Intake Vital Signs 11/21/22 11:06 Height 4 ft 11 in Weight 149 lb 14.629 oz BMI 30.3 Pulse 69 Pulse Source Pulse Oximeter Pulse Oximetry (%) 98 Oxygen Delivery Method Room Air Intake Visit Reasons: cough Cleaning Matron Required: No Allergies fluticasone [Flovent HFA] Allergy (Unknown, Verified 11/21/22 11:07) lip swelling umeclidinium [From Incruse Ellipta] Adverse Reaction (Intermediate, Verified 11/21/22 11:07) Chest Pain empagliflozin [Jardiance] Adverse Reaction (Unknown, Verified 11/21/22 11:07) vaginal itch metformin Adverse Reaction (Unknown, Verified 11/21/22 11:07) stomach pain sitagliptin [Januvia] Adverse Reaction (Unknown, Verified 11/21/22 11:07) stomach pain acetaminophen [From Percocet] Adverse Reaction (Verified 11/21/22 11:07) Nausea and Vomiting hydrocodone [From Vicodin] Adverse Reaction (Verified 11/21/22 11:07) Nausea and Vomiting ibuprofen [From Motrin] Adverse Reaction (Verified 11/21/22 11:07) Stomach Upset oxycodone [From Percocet] Adverse Reaction (Verified 11/21/22 11:07) Nausea and Vomiting HPI HPI Comments History of Present Illness Details The patient is a 76 year-old woman with a known history of asthma, pulmonary nodules and chronic cough. Today she has a telehealth visit. She was in her usual state health until for the last few days which she has been having worsening cough in addition to allergy symptoms. She has been visiting family in the symptoms appear to be getting worse. She has tried Benadryl because of significant daytime drowsiness. In addition to that she continues with current respiratory therapy with only partial resolution of the symptoms. She denies any fevers or chills or any exposure to any cover 19 infection. 03/04/2020 the patient has a telephone v [employer] today. Overall the patient has been doing a lot better. She still has episodes of coughing and wheezing and chest tightness when she goes outside exposed to the rain and mold. But otherwise when she is inside in when his not raining she is doing pretty good. She has been responding well to the allergy therapy. There was a question that she had a reaction to the Zyrtec but she realized was lotion she was putting on her face. In addition to that the patient has underlying pulmonary nodules and to be followed up. She was supposed to have a CT scan in February but it was canceled because she is not available at this time. Therefore will schedule the CT scan for sometime in May her follow-up so we can look at the images toget her. In the meantime she is continue her respiratory therapy in allergy therapy. If he has any issues between now and then she is to call the office for an earlier assessment. 07/08/2020 the patient is here for favio marx follow-up visit. Since we last spoke the patient had been started on Anoro. Initially she took it in, but it did not agree with her.She continue using it. Subsequently she started noticing worsening respiratory symptoms after using it. After 5 days of taking her breathing became much worse and she was taken to the [facility] ED for further evaluation. There she had some chest pains as well so therefore she was further evaluated for cardiac disease. Patient ruled out for any heart damage and her workup was completed and the patient was discharged home. She was given a prednisone taper. Her family is concerned because she continues to complain to this cough with congestion and she is not able to bring up the phlegm. The family is also concerned that she is on lot of medications. We did go over her medications and try to simplify her regimen as much as possible. She is going to continue taking the nebulized therapy with DuoNeb twice a day in addition to her viewed her as needed. In addition to that the patient does take the Flovent HFA. All the other inhaler she can hold off on. In the meantime the family's concern about the cough not getting any better. They are wondering if we could consider endoscopy. At this point the patient has attempted multiple things for CPT without any success. So therefore it will be reasonable to perform a diagnostic bronchoscopy at this time. Her cough is congested and is moderate severe. She has a hard time expectorating. I did provide her with a Acapella valve but he gave her neck pain so therefore she is concerned about using that. 07/22/2020 the patient is here for a [facility] low-up visit. She is status post bronchoscopy. 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 Her left mainstem bronchus also appeared to be inflamed consistent with bronchitis. Her cultures were all negative except set for some filamentous fungus. I do not believe that this is infectious process. However, the patient has significant allergies and likely contributing to her worsening asthma and allergy symptoms. She is concerned because she also has mold in her current home that she is renting. At this point this place is not healthy and safe for her pulmonary health. I did provide her with a brief letter recommended that she relocate to an apartment or home free of rugs, free of pests and also free of mold. The patient is using cough medications. This has been helpful. In addition to has a history of obstructive sleep apnea. She not using CPAP at this time. The patient does have daytime drowsiness in addition to intermittent headaches. She also has a significant history of snoring. Her [place] score is elevated 01/19. I will request a home sleep study for the patient as well. The patient does have a CPT Acapella valve that she needs to use. She will bring it into the next visit so I can tissue had to use it in the meantime she is going to continue with current respiratory therapy. She also has an allergy appointment coming up soon. We did talk about the tracheo bronchomalacia as far as different interventions. Ultimately if she wants to have a referral to [facility] and will be reasonable specially if she fails conservative management. 09/01/2021 the patient is here for a pulmonary follow-up visit. Since we last spoke she started developing a cough. Has been moderate severity with some chest congestion. Denies any fevers or chills. She does not think is COVID. Although, she has not been tested. Therefore after this visit she is going to go get tested. In the meantime she has been using her respiratory therapy with good effect. The patient also had a CT scan of the chest back in June 2021 that was personally by me. It is reassuring that her pulmonary nodules are stable. She will need a CT scan in a year's time. She continues to use her CPAP although, a recently fell and apparently broke. The patient is awaiting to get it look that [employer]. Unfortunately she see a information broker benoit Ibarra now she is working with [facility] and the machine I believe is still in cares. So she needs to call the number provided in order for the machine to be looked that. Otherwise she can make an appointment and bring it in and we Can also look at it. 07/26/2022 The patient is here for a foll ow up visit. he is doing well now. Several months ago she was admitted to [facility] with NSTEMI. Initially felt to need CABG, but then underwent a PCI with 2 stents to the RCA. She then was discharged, but then readmitted and underwent a repeat cath with PCI to LAD and OM2. She now is recovering.nIs suppose to start rehab. Has been using her inhalers as prescribed. She did under a CT chest, but is not read as of yet. I will call her once I have the results. Not tolerating the Breo powder. Causing hoarseness. Having worsening allergy symptoms with nasal congestion and cough. moderate in severity. 11/21/2022 the patient is here for a pulm onary follow-up visit. She is recovering from her cardiac interventions. She is participating in cardiac rehabilitation. She is tolerating that well. Now going to the fall she has noticed increasing allergy symptoms. She has been using her [id number] allergy medicine and has been using the Advair inhaler. She does use at twice a day. Still having to use her rescue inhaler throughout the day in complaining of chest tightness and cough. The patient also has some degree of tracheal bronchomalacia that is likely affecting her airway clearance. The patient was following up with Allergy and then now needs a referral to a new office because of a recent change. The patient will continue to follow up with Allergy immunology because allergy shots were providing her positive results per in the meantime will going to go ahead and optimize respiratory therapy by adding a lo ng-acting muscarinic antagonist and she will continue with the combination inhaler. [facility] Medical History Anxiety and depression Asthma Atherosclerotic cardiovascular disease Chronic allergic rhinitis Cough Cough Diabetes mellitus Dyslipidemia Dysphagia Essential hypertension Fibromyalgia Gastric pain Obese ROXIE (obstructive sleep apnea) Pulmonary nodules Sinusitis Tracheobronchomalacia Urinary incontinence Surgical History H/O breast biopsy H/O heart artery stent H/O left knee surgery H/O: hysterectomy History of bronchoscopy Hx of colonoscopy Hx of esophagogastroduodenoscopy Family History Father Hypertension Mother Hypertension Diabetes Daughter Diabetes Brother No problems noted. Social History Household Members: Children Alcohol intake: former Patient Tobacco Use Status: Never used Tobacco Second Hand Smoke Exposure: Yes Review of Systems Const Reports fatigue, Denies fever(s), Denies headache(s), Denies night sweats and Denies weight loss Eyes Denies eye discharge and Denies irritation ENT Reports Normal hearing present, Denies dizziness, Denies headache(s), Reports nasal congestion and Reports post nasal drip Card Denies chest pain, Denies leg edema, Denies dyspnea and Denies dyspnea on exertion Resp Denies chest congestion, Reports cough, Denies dyspnea, Denies dyspnea on exertion and Denies wheezing GI Denies change in bowel habits and Reports heartburn Denies difficulty voiding and Denies dysuria Musc Denies back pain and Denies arthralgias Skin/Breast Denies pruritus, Denies rash and Denies jaundice Neuro Reports Normal hearing present, Denies Abnormal speech present, Denies dizziness, Denies headache(s) and Denies seizure-like activity Psych Denies anxiety, Denies depression and Denies panic attacks Endo Denies cold intolerance, Reports fatigue, Denies flushing and Denies heat intolerance Osman/Lymph Denies easy bleeding and Denies easy bruising Aller/Immun Denies wheezing Physical Exam Vital Signs: Last Vital Signs Pulse 69 11/21/22 11:06 Pulse Ox 98 11/21/22 11:06 Oxygen Delivery Method Room Air 11/21/22 11:06 BMI result Body Mass Index 30.3 Const General: alert HEENT Mouth: tongue abnormal Neck Neck: Yes normal visual inspection, Yes full ROM and Yes no lymphadenopathy Chest Chest palpation & inspection: normal inspection of the chest Resp Auscultation: no wheezes and diminished lung sounds Cardio Rate: regular rate Rhythm: regular rhythm Heart sounds: S1 normal heart sound present and S2 normal heart sound present GI Palpation (GI): Soft to palpation and nontender Auscultation: normal bowel sounds Skin General skin exam: rashes and/or lesions noted Neuro Cranial nerves: Yes Normal hearing present Speech: No Abnormal speech present Assessment & Plan Assessment & Plan (1) Asthma: Code(s): J45.909 - Unspecified asthma, uncomplicated Qualifiers: Asthma complication type: uncomplicated Asthma persistence: persistent Asthma severity: moderate Qualified Code(s): J45.40 - Moderate persistent asthma, uncomplicated (2) Pulmonary nodules: Code(s): R91.8 - Other nonspecific abnormal finding of lung field (3) ROXIE (obstructive sleep apnea): Code(s): G47.33 - Obstructive sleep apnea (adult) (pediatric) (4) Cough: Code(s): R05 - Cough Qualifiers: Cough type: chronic Qualified Code(s): R05.3 - Chronic cough (5) Chronic allergic rhinitis: Code(s): J30.9 - Allergic rhinitis, unspecified (6) Tracheobronchomalacia: Code(s): J39.8 - Other specified diseases of upper respiratory tract Plan continue APAP, full face mask, F30 continue CPT with flutter valve twice a day continue Advair HFA continue Singulair ELAINE/DuoNebs as needed nasal spray Azelastine nasal spray Allergy referral follow-up 6 months Orders: Referrals 2 Allergy & Immunology Referral J45.909 - Unspecified asthma, uncomplicated Medications: New budesonide 32 mcg/actuation administer into each nostril 2 sprays intranasal DAILY 30 days 8.43 mL 7RF Refilled albuterol sulfate 90 mcg/actuation (Ventolin HFA) 2 puffs PO Q4H 30 days PRN 18 ea 6RF for wheezing fluticasone propion-salmeterol 115-21 mcg/actuation (Advair HFA) 2 puffs inhalation Q12H 30 days 12 grams 11RF Discontinued montelukast (Singulair) Discontinued Reason: Doctor's Order 10 mg PO BEDTIME 30 days 30 tabs 11RF J45.909 - Unspecified asthma, uncomplicated Coding Level of Care Code Est Pt Level 4 (46839) Diagnoses Moderate persistent asthma without complication J45.40 Asthma complication type: uncomplicated Asthma persistence: persistent Asthma severity: moderate Pulmonary nodules R91.8 ROXIE (obstructive sleep apnea) G47.33 Chronic cough R05.3 Cough type: chronic Chronic allergic rhinitis J30.9 Tracheobronchomalacia J39.8 Time Spent (min) 16
== END 2022-11-21 11:37 | disposition home or self-care (01) ==
PROVIDERS: PCP Family Medicine; Visit Provider Hospitalist
DX: J45.40 Moderate persistent asthma, uncomplicated (principal); R91.8 Other nonspecific abnormal finding of lung field; G47.33 Obstructive sleep apnea (adult) (pediatric); R05.3 Chronic cough; J30.9 Allergic rhinitis, unspecified; J39.8 Other specified diseases of upper respiratory tract
CPT/HCPCS: 99214

== ENCOUNTER → 2022-11-21 11:03 | Outpatient (BNVA) | payer OTHER, SELFPAY | PROVIDERS: PCP Family Medicine; Visit Provider Hospitalist | DX: J45.40 Moderate persistent asthma, uncomplicated (principal); J39.8 Other specified diseases of upper respiratory tract; R05.3 Chronic cough; G47.33 Obstructive sleep apnea (adult) (pediatric); R91.8 Other nonspecific abnormal finding of lung field; Z99.89 Dependence on other enabling machines and devices; Z79.899 Other long term (current) drug therapy | CPT/HCPCS: 99212 ==

== ENCOUNTER 2022-12-17 22:39 | Emergency (ER) | payer OTHER, SELFPAY ==
--- NOTE | 2022-12-17 | ECG_ITS ---
Test Reason : HYPERTENSION Blood Pressure : / mmHG Vent. Rate : 055 BPM Atrial Rate : 055 BPM P-R Int : 180 ms QRS Dur : 096 ms QT Int : 454 ms P-R-T Axes : 055 -41 -25 degrees QTc Int : 434 ms Sinus bradycardia Left anterior fascicular block Inferior infarct (cited on or before 19-AUG-2022) Abnormal ECG When compared with ECG of 09-SEP-2022 16:50, No significant change was found Referred By: Generic ED Physician Electronically Signed By:RYDER PERRY MD
[2022-12-17 23:03] VITALS: BP 116/67; BP 160/50; PULSE 55; PULSE 73; RESP 16; TEMP 36.8; O2SAT 100; O2SAT 98; BMI 32.7
--- NOTE | 2022-12-17 23:21 | ED.GENADULT ---
HPI - General Adult General Chief complaint: General Medical Stated complaint: HYPERTENSION Time Seen by Provider: 12/17/22 22:59 Source: patient Mode of arrival: ambulatory Limitations: no limitations History of Present Illness HPI narrative: Patient's history of coronary disease hypertension takes metoprolol got upset with her sister had after an argument checked her blood pressure was elevated to 170/99 got worried to garlic tablets and give the ER patient also noticed pain in the left upper back which is chronic no chest pain or palpitation on arrival patient's blood pressure was 160/50 repeat blood pressure 134/54 no shortness of breath no palpitation no syncope episode patient blood pressure was well controlled Related Data Home Medications Medication Instructions Recorded Confirmed clonidine 0.1 mg/24 hr weekly 1 patch topical QWEEK 12/30/19 10/10/21 transdermal patch lancets (OneTouch UltraSoft #100 ea 01/06/20 10/10/21 Lancets) pen needle, diabetic 32 gauge x #50 ea 08/17/20 10/10/21 sitagliptin phosphate 100 mg tablet 100 mg PO DAILY 08/17/20 10/10/21 linaclotide 145 mcg capsule 145 mcg PO DAILY 11/26/20 10/10/21 (Linzess) sertraline 25 mg tablet 25 mg PO DAILY 11/26/20 10/10/21 simethicone 125 mg capsule (Gas 0 mg PO 11/26/20 10/10/21 Relief Extra Strength) spironolactone 25 mg tablet 25 mg PO DAILY 11/26/20 10/10/21 atorvastatin 80 mg tablet 80 mg PO QAM 07/26/22 latanoprost 0.005 % eye drops 1 drp ophthalmic (eye) BEDTIME 07/26/22 metoprolol succinate 25 mg 25 mg PO DAILY 07/26/22 tablet,extended release 24 hr nitroglycerin 0.4 mg sublingual 0 mg sublingual 07/26/22 tablet ticagrelor 90 mg tablet (Brilinta) 90 mg PO BID 07/26/22 cetirizine 10 mg tablet 10 mg PO DAILY PRN 11/21/22 pioglitazone 45 mg tablet 45 mg PO DAILY 11/21/22 Previous Rx's Medication Instructions Recorded insulin glargine 100 unit/mL (3 35 unit (0.35 mL) subcut DAILY 30 10/22/20 mL) subcutaneous pen (Lantus days #10.5 mL Solostar U-100 Insulin) blood sugar diagnostic (OneTouch #100 ea 01/07/20 Verio test strips) blood-glucose meter (OneTouch #1 ea 01/07/20 Verio Meter) mirabegron 25 mg tablet,extended 25 mg PO DAILY 30 days #30 tabs 10/28/20 release 24 hr (Myrbetriq) omeprazole 40 mg capsule,delayed 40 mg PO DAILY #30 caps 01/06/21 release azelastine 137 mcg (0.1 %) nasal 2 spray intranasal BID 30 days #30 01/19/21 spray aerosol mL inhalational spacing device #1 ea 01/25/21 (Aerochamber MV spacer) nystatin 100,000 unit/mL oral 1 ml PO BID 30 days #60 mL 10/20/21 suspension ipratropium 0.5 mg-albuterol 3 mg 3 ml inhalation Q6H PRN for 02/09/22 (2.5 mg base)/3 mL nebulization wheezing #180 mL soln albuterol sulfate 90 mcg/actuation 2 puff PO Q4H PRN for wheezing 30 11/21/22 aerosol inhaler (Ventolin HFA) days #18 ea budesonide 32 mcg/actuation nasal 2 spray intranasal DAILY 30 days 11/21/22 spray #8.43 mL fluticasone propionate 115 2 puff inhalation Q12H 30 days #12 11/21/22 mcg-salmeterol 21 mcg/actuation grams HFA inhaler (Advair HFA) Allergies Allergy/AdvReac Type Severity Reaction Status Date / Time fluticasone [Flovent HFA] Allergy Unknown lip Verified 11/21/22 11:07 swelling umeclidinium AdvReac Intermediate Chest Pain Verified 11/21/22 11:07 [From Incruse Ellipta] empagliflozin [Jardiance] AdvReac Unknown vaginal Verified 11/21/22 11:07 itch metformin AdvReac Unknown stomach Verified 11/21/22 11:07 pain sitagliptin [Januvia] AdvReac Unknown stomach Verified 11/21/22 11:07 pain acetaminophen [From Percocet] AdvReac Nausea and Verified 11/21/22 11:07 Vomiting hydrocodone [From Vicodin] AdvReac Nausea and Verified 11/21/22 11:07 Vomiting ibuprofen [From Motrin] AdvReac Stomach Verified 11/21/22 11:07 Upset oxycodone [From Percocet] AdvReac Nausea and Verified 11/21/22 11:07 Vomiting [facility] Past Medical History Medical History Dysphagia Tracheobronchomalacia ROXIE (obstructive sleep apnea) Essential hypertension Atherosclerotic cardiovascular disease Urinary incontinence Obese Dyslipidemia Anxiety and depression Gastric pain Sinusitis Chronic allergic rhinitis Asthma Cough Cough Diabetes mellitus Fibromyalgia Pulmonary nodules Surgical History H/O heart artery stent Hx of esophagogastroduodenoscopy History of bronchoscopy Hx of colonoscopy H/O left knee surgery H/O breast biopsy H/O: hysterectomy Family History Family History Father Hypertension Mother Hypertension Diabetes Daughter Diabetes Brother No problems noted. Social History Social History Household Members: Children Alcohol intake: former Patient Tobacco Use Status: Never used Tobacco Smoked in Last 30 Days: No Second Hand Smoke Exposure: Yes Use of substances other than those prescribed or required for medical reasons: No Advance Directives: No Advance Directives Information Provided: No Physical Exam ED Vital Signs: Vital Signs - 24 hr 12/17/22 23:03 12/17/22 23:25 12/18/22 00:30 Temperature 98.3 F Pulse Rate 55 55 53 Respiratory Rate 16 13 18 Blood Pressure 160/50 H 160/58 H 145/51 H Pulse Oximetry 98 97 Oxygen Delivery Method Room Air Room Air BMI result Body Mass Index 32.7 Appearance: Alert. Oriented X3. No acute distress. Eyes: PERRLA, ENT: Pharynx normal. Oral Mucosa moist Neck: Normal inspection. Neck supple. CVS: Bradycardic with heart rate 55, no murmur rub or gallop. Pulses normal. Respiratory: No respiratory distress. Equal air entry bilateral, no wheezing/rales/rhonchi Abdomen: Soft and nontender. Bowel sounds are present, no mass palpable, no CVA tenderness Skin: Skin warm and dry. Normal skin color. Normal skin turgor. Extremities: No lower extremity edema. No calf tenderness Neuro: Oriented X 3. No motor deficit. No sensory deficit.No cerebellar signs , cranial nerves II-XII intact Medical Decision Making Differential Diagnosis Differential Diagnoses: The differential diagnosis associated with the presentation includes Hypertensive urgency/anxiety Lab Data MDM Lab Attestation statement: I reviewed the patient's lab results. 12/17/22 23:17 12/17/22 23:17 Labs: Lab Results 12/17/22 Range/Units 23:17 WBC 8.5 (4.8-10.8) X10*3/uL RBC 4.43 (4.20-5.50) X10*6/uL Hgb 13.3 (12.0-16.0) g/dl Hct 39.7 (37.0-47.0) % MCV 89.6 (80.0-98.0) fL MCH 30.0 (27.0-33.0) pg MCHC 33.5 (31.0-35.0) g/dl RDW 13.8 (11.0-16.0) % Plt Count 191 (160-400) X10*3/uL MPV 10.3 (9.4-12.3) fL Absolute Nucleated RBC 0.000 (0.0-0.012) X10*3/uL Nucleated RBC % (auto) 0.0 (0.0-0.2) /100WBC Sodium 139 (135-145) mmol/L Potassium 4.1 (3.3-5.1) mmol/L Chloride 108 (96-108) mmol/L Carbon Dioxide 23 (22-29) mmol/L Anion Gap 12 (12-20) BUN 23 H (9-16) mg/dL Creatinine 0.95 (0.5-1.4) mg/dL Estim Creat Clear Calc 37.7 Estimated GFR 57 Random Glucose 202 H (60-115) mg/dL Calcium 9.6 (8.4-10.2) mg/dL Total Bilirubin 0.3 (0.0-1.0) mg/dL AST 22 (5-31) U/L ALT 24 (0-31) U/L Alkaline Phosphatase 65 (39-117) U/L Troponin I High Sens 4.2 D (<3.5-17.0) ng/L Total Protein 7.1 (6.5-8.0) g/dL Albumin 4.0 (3.5-5.0) g/dL Independent Interpretation I performed an independent interpretation of an: EKG Interpretation: Sinus bradycardia with heart rate 55 beats per minute normal interval normal axis Q-wave in inferior wall no acute ischemia Discharge Plan Discharge Clinical Impression: Hypertension, Anxiety Patient Disposition: Home, Self-Care Instructions: Chronic Hypertension (ED), Anxiety (ED) Additional Instructions: Your transient increased blood pressure is from the anxiety and stress Do not stressed out relax, and continue to take your medication as prescribed Trevino aumento transitorio de la presi?n arterial se debe a la ansiedad y el estr?s. No se estrese, rel?ejremy y contin?e tomando morteza medicamentos seg?n lo recetado. Prescriptions: No Action (DME) lancets [OneTouch UltraSoft Lancets] Misc See Rx Instructions .ROUTE .MEDSUPPLY Qty: 100 Rx Instructions: As directed (DME) blood-glucose meter [OneTouch Verio Meter] Misc See Rx Instructions .ROUTE .MEDSUPPLY Qty: 1 0RF Rx Instructions: As directed (DME) OneTouch Verio test strips Strip See Rx Instructions .ROUTE .MEDSUPPLY Qty: 100 0RF Rx Instructions: As directed Myrbetriq 25 mg tablet extended release 24 hr 25 mg PO DAILY 30 Days Qty: 30 1RF (DME) Aerochamber MV Spacer See Rx Instructions .ROUTE .MEDSUPPLY Qty: 1 0RF Rx Instructions: As directed nystatin 100,000 unit/mL suspension 1 ml PO BID 30 Days Qty: 60 2RF Rx Instructions: swish and swallow ipratropium-albuterol 0.5 mg-3 mg(2.5 mg base)/3 mL solution for nebulization 3 ml inhalation Q6H PRN (Reason: for wheezing) Qty: 180 2RF omeprazole 40 mg capsule,delayed release(DR/EC) 40 mg PO DAILY Qty: 30 0RF Lantus Solostar U-100 Insulin 100 unit/mL (3 mL) insulin pen 35 unit subcut DAILY 30 Days Qty: 10.5 11RF clonidine 0.1 mg/24 hr patch weekly 1 patch topical QWEEK Linzess 145 mcg capsule 145 mcg PO DAILY simethicone [Gas Relief Extra Strength] 125 mg capsule 0 mg PO spironolactone 25 mg tablet 25 mg PO DAILY sertraline 25 mg tablet 25 mg PO DAILY (DME) pen needle, diabetic 32 gauge x needle See Rx Instructions .ROUTE .MEDSUPPLY Qty: 50 Rx Instructions: As directed Januvia 100 mg tablet 100 mg PO DAILY azelastine 137 mcg (0.1 %) aerosol,spray 2 spray intranasal BID 30 Days Qty: 30 6RF Rx Instructions: administer into each nostril cetirizine 10 mg tablet 10 mg PO DAILY PRN pioglitazone 45 mg tablet 45 mg PO DAILY fluticasone propion-salmeterol [Advair HFA] 115-21 mcg/actuation HFA aerosol inhaler 2 puff inhalation Q12H 30 Days Qty: 12 11RF albuterol sulfate [Ventolin HFA] 90 mcg/actuation HFA aerosol inhaler 2 puff PO Q4H PRN (Reason: for wheezing) 30 Days Qty: 18 6RF budesonide 32 mcg/actuation spray,non-aerosol 2 spray intranasal DAILY 30 Days Qty: 8.43 7RF Rx Instructions: administer into each nostril atorvastatin 80 mg tablet 80 mg PO QAM latanoprost 0.005 % drops 1 drp ophthalmic (eye) BEDTIME Brilinta 90 mg tablet 90 mg PO BID metoprolol succinate 25 mg tablet extended release 24 hr 25 mg PO DAILY nitroglycerin 0.4 mg tablet, sublingual 0 mg sublingual Interventions: ED Discharge Assessment Last Done: 12/18/22 00:31 Discharge Date/Time: 12/18/22 00:40 Print Language: Kinyarwanda
[2022-12-17 23:22] LABS: Hematocrit 39.7 % (37.0-47.0); Hemoglobin 13.3 g/dl (12.0-16.0); Mean Corpuscular HGB Conc 33.5 g/dl (31.0-35.0); Mean Corpuscular Volume 89.6 fL (80.0-98.0); Mean Platelet Volume 10.3 fL (9.4-12.3); Platelet Count 191 X10*3/uL (160-400); Red Blood Count 4.43 X10*6/uL (4.20-5.50); Red Cell Distribution Width 13.8 % (11.0-16.0); White Blood Count 8.5 X10*3/uL (4.8-10.8)
[2022-12-17 23:25] VITALS: BP 160/58; PULSE 55; RESP 13
[2022-12-17 23:39] LABS: Alanine Aminotransferase 24 U/L (0-31); Alkaline Phosphatase 65 U/L (39-117); Anion Gap 12 (12-20); Aspartate Amino Transferase 22 U/L (5-31); Bilirubin Total 0.3 mg/dL (0.0-1.0); Blood Urea Nitrogen 23 mg/dL (9-16); Calcium 9.6 mg/dL (8.4-10.2); Carbon Dioxide 23 mmol/L (22-29); Chloride 108 mmol/L (96-108); Creatinine Clr Calc Pharmacy 37.7; Estimated Glomerular Filt Rate 57; Glucose Random 202 mg/dL (60-115); Potassium 4.1 mmol/L (3.3-5.1); Sodium 139 mmol/L (135-145); Total Protein 7.1 g/dL (6.5-8.0)
[2022-12-17 23:45] LABS: Troponin-I High Sensitivity 4.2 ng/L (<3.5-17.0)
[2022-12-18 00:30] VITALS: BP 145/51; PULSE 53; RESP 18; O2SAT 97
== END 2022-12-18 00:40 | disposition home or self-care (01) ==
PROVIDERS: Emergency Provider Internal Medicine; PCP Family Medicine
DX: F41.1 Generalized anxiety disorder (principal); F43.0 Acute stress reaction; R00.1 Bradycardia, unspecified; I10 Essential (primary) hypertension; Z79.899 Other long term (current) drug therapy
CPT/HCPCS: 36415; 80053; 84484; 85027; 93005; 99283; 99284

== ENCOUNTER 2023-01-03 12:54 | Emergency (ER) | payer OTHER, SELFPAY ==
--- NOTE | ~2023-01-03 | XR_ITS ---
EXAMINATION: XR CHEST CLINICAL INFORMATION: Shortness of breath COMPARISON: Previous chest x-ray most recent August 2019 TECHNIQUE: 2 views of the chest were obtained. FINDINGS: The cardiac and mediastinal contours are normal. The lungs are clear. No pleural effusion or pneumothorax. Degenerative changes of the spine. Question abnormal alignment of the right shoulder joint with inferior position of the humeral head with respect to the glenoid. XR/XR chest 2V IMPRESSION: No evidence for acute disease in the chest. Question abnormal alignment of the right shoulder. Clinical correlation recommended.
[2023-01-03 13:00] VITALS: BP 156/68; PULSE 62; O2SAT 100
--- NOTE | 2023-01-03 13:04 | PC.NURSE ---
vss. calling loss mitigation specialist.
[2023-01-03 13:09] VITALS: PULSE 61; RESP 16; BMI 33.6
--- NOTE | 2023-01-03 13:38 | ECG_ITS ---
Test Reason : sob Blood Pressure : / mmHG Vent. Rate : 056 BPM Atrial Rate : 056 BPM P-R Int : 174 ms QRS Dur : 088 ms QT Int : 420 ms P-R-T Axes : 045 -31 000 degrees QTc Int : 405 ms Sinus bradycardia Left axis deviation Inferior infarct (cited on or before 19-AUG-2022) Abnormal ECG When compared with ECG of 17-DEC-2022 22:59, No significant change was found Referred By: Nancy Gaona Electronically Signed By:RYDER PERRY MD
[2023-01-03 13:40] VITALS: BP 151/55; PULSE 60; RESP 13; O2SAT 100
--- NOTE | 2023-01-03 13:48 | PC.NURSE ---
denies cp/chest tightness. talks well. reports sob/gas. NSR on monitor.
--- NOTE | 2023-01-03 13:58 | ED_ITS ---
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 Patient states that she saw cockroach home and began profusely spraying a cockroach with leg medicine then began to feel like she was experiencing chest tightness. She otherwise denies any fever, chills, nausea, vomiting and denies any chest pain. Related Data Home Medications Medication Instructions Recorded Confirmed clonidine 0.1 mg/24 hr weekly 1 patch topical QWEEK 12/30/19 10/10/21 transdermal patch lancets (OneTouch UltraSoft #100 ea 01/06/20 10/10/21 Lancets) pen needle, diabetic 32 gauge x #50 ea 08/17/20 10/10/21 sitagliptin phosphate 100 mg tablet 100 mg PO DAILY 08/17/20 10/10/21 linaclotide 145 mcg capsule 145 mcg PO DAILY 11/26/20 10/10/21 (Linzess) sertraline 25 mg tablet 25 mg PO DAILY 11/26/20 10/10/21 simethicone 125 mg capsule (Gas 0 mg PO 11/26/20 10/10/21 Relief Extra Strength) spironolactone 25 mg tablet 25 mg PO DAILY 11/26/20 10/10/21 atorvastatin 80 mg tablet 80 mg PO QAM 07/26/22 latanoprost 0.005 % eye drops 1 drp ophthalmic (eye) BEDTIME 07/26/22 metoprolol succinate 25 mg 25 mg PO DAILY 07/26/22 tablet,extended release 24 hr nitroglycerin 0.4 mg sublingual 0 mg sublingual 07/26/22 tablet ticagrelor 90 mg tablet (Brilinta) 90 mg PO BID 07/26/22 cetirizine 10 mg tablet 10 mg PO DAILY PRN 11/21/22 pioglitazone 45 mg tablet 45 mg PO DAILY 11/21/22 Previous Rx's Medication Instructions Recorded insulin glargine 100 unit/mL (3 35 unit (0.35 mL) subcut DAILY 30 12/18/19 mL) subcutaneous pen (TeachernowtShout days #10.5 mL Solostar U-100 Insulin) blood sugar diagnostic (OneTouch #100 ea 01/07/20 Verio test strips) blood-glucose meter (OneTouch #1 ea 01/07/20 Verio Meter) mirabegron 25 mg tablet,extended 25 mg PO DAILY 30 days #30 tabs 10/28/20 release 24 hr (Myrbetriq) omeprazole 40 mg capsule,delayed 40 mg PO DAILY #30 caps 01/06/21 release azelastine 137 mcg (0.1 %) nasal 2 spray intranasal BID 30 days #30 01/19/21 spray aerosol mL inhalational spacing device #1 ea 01/25/21 (Aerochamber MV spacer) nystatin 100,000 unit/mL oral 1 ml PO BID 30 days #60 mL 10/20/21 suspension ipratropium 0.5 mg-albuterol 3 mg 3 ml inhalation Q6H PRN for 02/09/22 (2.5 mg base)/3 mL nebulization wheezing #180 mL soln albuterol sulfate 90 mcg/actuation 2 puff PO Q4H PRN for wheezing 30 11/21/22 aerosol inhaler (Ventolin HFA) days #18 ea budesonide 32 mcg/actuation nasal 2 spray intranasal DAILY 30 days 11/21/22 spray #8.43 mL fluticasone propionate 115 2 puff inhalation Q12H 30 days #12 11/21/22 mcg-salmeterol 21 mcg/actuation grams HFA inhaler (Advair HFA) Allergies Allergy/AdvReac Type Severity Reaction Status Date / Time fluticasone [Flovent HFA] Allergy Unknown lip Verified 11/21/22 11:07 swelling umeclidinium AdvReac Intermediate Chest Pain Verified 11/21/22 11:07 [From Incruse Ellipta] empagliflozin [Jardiance] AdvReac Unknown vaginal Verified 11/21/22 11:07 itch metformin AdvReac Unknown stomach Verified 11/21/22 11:07 pain sitagliptin [Januvia] AdvReac Unknown stomach Verified 11/21/22 11:07 pain acetaminophen [From Percocet] AdvReac Nausea and Verified 11/21/22 11:07 Vomiting hydrocodone [From Vicodin] AdvReac Nausea and Verified 11/21/22 11:07 Vomiting ibuprofen [From Motrin] AdvReac Stomach Verified 11/21/22 11:07 Upset oxycodone [From Percocet] AdvReac Nausea and Verified 11/21/22 11:07 Vomiting Review of Systems Review of Systems: Pertinent positives and negatives as stated in [facility] Past Medical History Source: nursing notes reviewed Medical History Dysphagia Tracheobronchomalacia ROXIE (obstructive sleep apnea) Essential hypertension Atherosclerotic cardiovascular disease Urinary incontinence Obese Dyslipidemia Anxiety and depression Gastric pain Sinusitis Chronic allergic rhinitis Asthma Cough Cough Diabetes mellitus Fibromyalgia Pulmonary nodules Surgical History H/O heart artery stent Hx of esophagogastroduodenoscopy History of bronchoscopy Hx of colonoscopy H/O left knee surgery H/O breast biopsy H/O: hysterectomy Family History Family History Father Hypertension Mother Hypertension Diabetes Daughter Diabetes Brother No problems noted. Social History Social History Household Members: Children Alcohol intake: former Patient Tobacco Use Status: Never used Tobacco Smoked in Last 30 Days: No Second Hand Smoke Exposure: Yes Use of substances other than those prescribed or required for medical reasons: No Advance Directives: Yes Advance Directives Information Provided: No Advance Directives on File: No Physical Exam ED Vital Signs: Vital Signs - 24 hr 01/03/23 13:09 01/03/23 13:40 Pulse Rate 61 60 Respiratory Rate 16 13 Blood Pressure 151/55 H Pulse Oximetry 100 Oxygen Delivery Method Room Air Room Air BMI result Body Mass Index 33.6 VITAL SIGNS: Reviewed. GENERAL: Well developed, well nourished, in no acute distress. HEAD: Normocephalic/atraumatic EYES: PERRLA, EOMI EARS: Ext canals without abnormality NOSE: Nares patent bilateral OROPHARYNX: no oral lesions noted, posterior pharynx clear NECK: Supple, no adenopathy LUNGS: Normal breath sounds. No adventitious sounds or accessory muscle use. SpO2<100> CARDIOVASCULAR: Regular rate and rhythm without noted murmurs, no JVD or lower extremity edema. ABDOMEN: Soft, non-tender, non-distended with bowel sounds. MUSCULOSKELETAL: No tenderness, deformities, or effusions noted on gross inspection. EXTREMITIES: No cyanosis, clubbing or edema. SKIN: Inspection of the skin reveals no rashes NEUROLOGIC: Alert and oriented x 4. Strength and sensation to light touch were grossly intact x 4. Medical Decision Making Medical Decision Making [facility] Narrative: 77-year-old female with history and clinical presentation consistent with exposure to aerosols, patient is oxygenating well and at this time appears well and states that her symptoms have completely resolved. I reviewed all investigations, no evidence of acute changes on EKG a and my preliminary review of the chest x-ray does not demonstrate any infiltrate/venous congestion and no bony abnormalities. Patient is otherwise stable for discharge to home. Differential Diagnosis Differential Diagnoses: The differential diagnosis associated with the presentation includes Please see the discussion above Admission/Observation Consideration of admission/observation: Escalation of care including admission/observation considered Please see the discussion above Lab Data Labs: Lab Results 01/03/23 Range/Units 14:18 POC Glucose 89 (60-115) mg/dL Independent Interpretation I performed an independent interpretation of an: EKG Interpretation: Sinus bradycardia, HR -56, no STEMI, MD/QRS/QTC is within normal limits. Radiology Impression Discussion of test interpretation with radiology: I have reviewed the radiologist's reading. Radiologist Impression: Please see the discussion above Chronic Conditions Patient?s care impacted by: Diabetes Discharge Plan Discharge Clinical Impression: Anxiety Patient Disposition: Home, Self-Care Instructions: Anxiety (ED) Additional Instructions: 1. Reanudar todos los medicamentos caseros 2. Johanna un seguimiento con busby m?dico de atenci?n primaria. Regrese a la tomas de emergencias si los s?ntomas empeoran. 1. Resume all home medications 2. Follow-up with your primary care doctor. Return to the ER for any worsening symptoms. Prescriptions: No Action (DME) lancets [OneTouch UltraSoft Lancets] Misc See Rx Instructions .ROUTE .MEDSUPPLY Qty: 100 Rx Instructions: As directed (DME) blood-glucose meter [OneTouch Verio Meter] Misc See Rx Instructions .ROUTE .MEDSUPPLY Qty: 1 0RF Rx Instructions: As directed (DME) OneTouch Verio test strips Strip See Rx Instructions .ROUTE .MEDSUPPLY Qty: 100 0RF Rx Instructions: As directed Myrbetriq 25 mg tablet extended release 24 hr 25 mg PO DAILY 30 Days Qty: 30 1RF (DME) Aerochamber MV Spacer See Rx Instructions .ROUTE .MEDSUPPLY Qty: 1 0RF Rx Instructions: As directed nystatin 100,000 unit/mL suspension 1 ml PO BID 30 Days Qty: 60 2RF Rx Instructions: swish and swallow ipratropium-albuterol 0.5 mg-3 mg(2.5 mg base)/3 mL solution for nebulization 3 ml inhalation Q6H PRN (Reason: for wheezing) Qty: 180 2RF omeprazole 40 mg capsule,delayed release(DR/EC) 40 mg PO DAILY Qty: 30 0RF Lantus Solostar U-100 Insulin 100 unit/mL (3 mL) insulin pen 35 unit subcut DAILY 30 Days Qty: 10.5 11RF clonidine 0.1 mg/24 hr patch weekly 1 patch topical QWEEK Linzess 145 mcg capsule 145 mcg PO DAILY simethicone [Gas Relief Extra Strength] 125 mg capsule 0 mg PO spironolactone 25 mg tablet 25 mg PO DAILY sertraline 25 mg tablet 25 mg PO DAILY (DME) pen needle, diabetic 32 gauge x 5/32 needle See Rx Instructions .ROUTE .MEDSUPPLY Qty: 50 Rx Instructions: As directed Januvia 100 mg tablet 100 mg PO DAILY azelastine 137 mcg (0.1 %) aerosol,spray 2 spray intranasal BID 30 Days Qty: 30 6RF Rx Instructions: administer into each nostril cetirizine 10 mg tablet 10 mg PO DAILY PRN pioglitazone 45 mg tablet 45 mg PO DAILY fluticasone propion-salmeterol [Advair HFA] 115-21 mcg/actuation HFA aerosol inhaler 2 puff inhalation Q12H 30 Days Qty: 12 11RF albuterol sulfate [Ventolin HFA] 90 mcg/actuation HFA aerosol inhaler 2 puff PO Q4H PRN (Reason: for wheezing) 30 Days Qty: 18 6RF budesonide 32 mcg/actuation spray,non-aerosol 2 spray intranasal DAILY 30 Days Qty: 8.43 7RF Rx Instructions: administer into each nostril atorvastatin 80 mg tablet 80 mg PO QAM latanoprost 0.005 % drops 1 drp ophthalmic (eye) BEDTIME Brilinta 90 mg tablet 90 mg PO BID metoprolol succinate 25 mg tablet extended release 24 hr 25 mg PO DAILY nitroglycerin 0.4 mg tablet, sublingual 0 mg sublingual Referrals: Liset Mitchell MD [Primary Care Provider] - Print Language: Yemeni
--- NOTE | 2023-01-03 14:22 | PC.NURSE ---
pt st her blood sugar was low and she was hungry. this RN took pt blood glucose and result 89. NELSON Egan aware. poc documented in worklist. pt resting quietly on stretcher in no apparent distress.
[2023-01-03 14:23] LABS: Glucose, Whole Blood 89 mg/dL (60-115)
[2023-01-03 16:00] VITALS: PULSE 60; RESP 16; TEMP 36.8; O2SAT 98
--- NOTE | 2023-01-03 16:55 | PC.NURSE ---
miryam delivery tech at beside. pt signed/shawna paperwork. given d/c instructions. 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 aox4. calm, coop. no distress/pain.
== END 2023-01-03 17:00 | disposition home or self-care (01) ==
PROVIDERS: Emergency Provider Student in an Organized Health Care Education/Training Program; PCP Family Medicine
DX: R06.02 Shortness of breath (principal); R00.1 Bradycardia, unspecified; F41.1 Generalized anxiety disorder; F43.0 Acute stress reaction; Z79.899 Other long term (current) drug therapy
CPT/HCPCS: 71046; 82947; 93005; 99283; 99284

== ENCOUNTER 2023-03-01 12:01 | Outpatient (AMB) | payer OTHER, SELFPAY ==
--- NOTE | 2023-03-01 12:06 | MHC.OFFVIS ---
Intake Vital Signs 03/01/23 12:11 Height 4 ft 8 in Weight 151 lb BMI 33.8 BP 108/55 L Blood Pressure Location Lt brachial Position Sitting Pulse 83 Intake Visit Reasons: Follow up Constipation Intake Note: Patient follow up for Constipation. Patient cc: Constipation, acid reflex come and go, and some abdominal pain and colon discomfort. Hand Chain Maker Required: Yes Hand Chain Maker Name: [facility] Interpeter Accompanied by: Self / Same As Patient Allergies fluticasone [Flovent HFA] Allergy (Unknown, Verified 03/01/23 12:05) lip swelling umeclidinium [From Incruse Ellipta] Adverse Reaction (Intermediate, Verified 03/01/23 12:05) Chest Pain empagliflozin [Jardiance] Adverse Reaction (Unknown, Verified 03/01/23 12:05) vaginal itch metformin Adverse Reaction (Unknown, Verified 03/01/23 12:05) stomach pain sitagliptin [Januvia] Adverse Reaction (Unknown, Verified 03/01/23 12:05) stomach pain acetaminophen [From Percocet] Adverse Reaction (Verified 03/01/23 12:05) Nausea and Vomiting hydrocodone [From Vicodin] Adverse Reaction (Verified 03/01/23 12:05) Nausea and Vomiting ibuprofen [From Motrin] Adverse Reaction (Verified 03/01/23 12:05) Stomach Upset oxycodone [From Percocet] Adverse Reaction (Verified 03/01/23 12:05) Nausea and Vomiting Medication List - Last Reconciled 03/01/23 by Luciana Gutierrez MD albuterol sulfate 90 mcg/actuation (Ventolin HFA) 2 puffs PO Q4H PRN 30 days atorvastatin 80 mg PO QAM azelastine 2 sprays intranasal BID 30 days blood sugar diagnostic (OneTouch Verio test strips) As directed blood-glucose meter (OneTouch Verio Meter) As directed budesonide 32 mcg/actuation 2 sprays intranasal DAILY 30 days cetirizine 10 mg PO DAILY PRN clonidine 1 patch topical QWEEK fluticasone propion-salmeterol 115-21 mcg/actuation (Advair HFA) 2 puffs inhalation Q12H 30 days inhalational spacing device (Aerochamber MV spacer) As directed insulin glargine (Lantus Solostar U-100 Insulin) 35 units (0.35 mL) subcut DAILY 30 days ipratropium-albuterol 0.5 mg-3 mg(2.5 mg base)/3 mL 3 mL inhalation Q6H PRN lancets (OneTouch UltraSoft Lancets) As directed latanoprost 0.005% 1 drp ophthalmic (eye) BEDTIME linaclotide (Linzess) 145 mcg PO DAILY metoprolol succinate ER 25 mg PO DAILY mirabegron ER (Myrbetriq) 25 mg PO DAILY 30 days nitroglycerin 0 mg sublingual nystatin 1 mL PO BID 30 days omeprazole 40 mg PO DAILY pen needle, diabetic As directed pioglitazone 45 mg PO DAILY sertraline 25 mg PO DAILY simethicone (Gas Relief Extra Strength) 0 mg PO sitagliptin phosphate 100 mg PO DAILY spironolactone 25 mg PO DAILY ticagrelor (Brilinta) 90 mg PO BID HPI Follow up Constipation HPI Details GI CLINIC VISIT FOR THIS 77-YEAR-OLD ICELANDIC-SPEAKING FEMALE FOR FOLLOW-UP OF NAUSEA, DYSPHAGIA, UPPER ABDOMINAL PAIN AND CONSTIPATION Patient returns after a hiatus of 2 years (last seen in 2020) ? CHRONIC ILLNESSES:?asthma, hypertension, hypercholesterolemia, glaucoma, type 2 diabetes, sleep apnea. ? LABS IN [facility]: 09/02/19 Normal CBC and chem panel, ESR 25 ? 09/13 stool test was negative for H pylori antigen ?IMAGING STUDIES: ? 12/27/[address] scan was negative ? 02/13 gastric Emptying Study showed: ? Retention in the stomach at each time interval was: ? 1 hour 82% (normal 37%-90%) ? 2 hours 67% (normal 30%-60%) ? 3 hours 51% ? 4 hours 23% (normal 0%-10%) ?12/19/18 Abd US showed: ? IMPRESSION: ? There is generalized increase in hepatic echotexture, consistent with ? fatty infiltration or hepatocellular disease. Please correlate ? clinically. No focal hepatic mass or intrahepatic biliary dilatation ? is seen. ?ENDOSCOPIC STUDIES: 12/17/18 EGD and Colon showed: ? Esophagus: Tortuous esophagus with increased tertiary contractions without stricture or ring. ? GE junction at 32 cms. Mild focal esophagitis at GE junction. ? Stomach: Moderate diffuse gastric erythema. Biopsies were obtained from the ? antrum and body. Grade 2 flap valve on retroflexed examination of the cardia. ? Two 6-8 mm benign appearing polyp in the gastric body along the lesser curve - ? one polyp removed with a cold biopsy. ? Duodenum: Normal bulb and descending duodenum. Biopsies were obtained from the ? 3rd part of duodenum to check for celiac disease ? Colonoscopy: ? Three diminutive polyps removed. ? Random biopsies were obtained from the colon. ? Moderate to severe diverticulosis seen in the left colon ? Plan: ? Await pathology results ? Continue present medications (Omeprazole at 20 mg PO once daily) ? Patient has an appointment on 12/27/18 in the GI Clinic with Luciana Gutierrez M.D.- ? Repeat Colonoscopy interval based on path results - in 3-5 years if ? polyps are adenomatous and 10 years if polyps are hyperplastic. ? Above findings were reviewed with the patient and relevant handouts ? were provided if indicated. ? BIOPSIES SHOWED: ? A. Small bowel, biopsy: Small bowel mucosa within normal limits; preserved ? villous architecture and no increase in intraepithelial lymphocytes. ? B. Stomach, antrum, biopsy: Gastric antral and body mucosa with mild chronic ? inactive gastritis; negative for Helicobacter pylori, intestinal metaplasia and ? dysplasia. ? C. Stomach, body, biopsy: Gastric body mucosa within normal limits; negative ? for Helicobacter pylori, intestinal metaplasia and dysplasia. ? D. Stomach, polyp, biopsy: Fundic gland polyp; negative for Helicobacter ? pylori, intestinal metaplasia and dysplasia. ? E. Colon, random, biopsy: Colonic mucosa within normal limits; negative for ? active, chronic and microscopic colitis. ? F. Colon, transverse, polyp, polypectomy: Colonic mucosa with a prominent ? lymphoid aggregate; negative for a hyperplastic or neoplastic process. ? G. Rectum, polyp, polypectomy: Hyperplastic polyp. ? TODAY'S VISIT [facility] Auction Block Clerk, Rafaela Patient cc: Constipation, acid reflex come and go, and some abdominal pain and colon discomfort. Complains of chronic constipation - ? related to medications Able to move her bowels - has a feeling of incomplete evacuation. Fell 1.5 years ago and hit her vagina and anus and saw a Rn Icu and diagnosed with uterine prolapse She was offered surgery and pt elected to hold off on the surgery PAST VISIT: Complains of a lot of gas - like a storm Has not been taking medications for constipation since it causes diarrhea and advised to take a lower dose. Pt states that she feels like she is going to choke because she has the gastritis. ? sometimes I poop too much and sometimes I cannot poop at all. She gave me the senna but I have not gotten it because she needs to write a letter to the insurance for me to get that. ? Has good days and bad days - still has the gastritis and bloating. When she takes Senna she goes all days long She would like a prescription for a Senna preparation she had used in the past and not the Generic one - she was advised to drop off information about which brand of Senna she wants Has not started taking the new medications yet. ? Complains of nausea and vomiting for the past month ? Feels bloated in her stomach. ? Notes vomiting after immediately after eating ? ? ? Feels acid reflux in her throat. ? ? ? Notes mucous in her stools. ? Had 2 BMs today and feels better after she has a BM. ? Takes Pantoprazole and feels better. ? Constipation is better and having a BM daily. ? Sometimes has a little discomfort in the abdomen which resolves with Omeprazole. ? Continues to have an upset stomach when she takes fatty food. ? Skin is very delicate and gets irritaion with the sun - ? Feels her stomach is getting distended since she started taking Anoro ? Gets nausea sometimes and takes Chamomile tea which makes it better. ? Takes Pantoprazole once a day - took two this morning. ? Takes aspirin daily. ? Has a small BM daily with incomplete evacuation. Intermittent straining with passage of hard stools. ? Diagnosed with DM 10 yrs ago PFSH Medical History Dysphagia Tracheobronchomalacia ROXIE (obstructive sleep apnea) Essential hypertension Atherosclerotic cardiovascular disease Urinary incontinence Obese Dyslipidemia Anxiety and depression Gastric pain Sinusitis Chronic allergic rhinitis Asthma Cough Cough Diabetes mellitus Fibromyalgia Pulmonary nodules Surgical History H/O heart artery stent Hx of esophagogastroduodenoscopy History of bronchoscopy Hx of colonoscopy H/O left knee surgery H/O breast biopsy H/O: hysterectomy Family History Father Hypertension Mother Hypertension Diabetes Daughter Diabetes Brother No problems noted. Social History Household Members: Children Alcohol intake: former Patient Tobacco Use Status: Never used Tobacco Second Hand Smoke Exposure: Yes Review of Systems Const All systems reviewed & are unremarkable except as noted in HPI and below Physical Exam Vital Signs: Last Vital Signs Pulse 83 03/01/23 12:11 BP 108/55 L 03/01/23 12:11 BMI result Body Mass Index 33.8 Const General: healthy appearing and no acute distress Nutritional Appearance: obese Orientation/consciousness: patient oriented x3 Limitations: language barrier HEENT Head: Yes normal to inspection Ears: hearing grossly normal bilaterally Eyes Sclerae: sclerae normal Pupils: Equal, round and reactive pupils present Neck Neck: Yes normal visual inspection Chest Chest palpation & inspection: normal inspection of the chest Resp Effort & Inspection: normal respiratory effort Auscultation: clear to auscultation bilaterally Cardio Palpation: normal PMI Rate: regular rate Rhythm: regular rhythm Heart sounds: S1 normal heart sound present, S2 normal heart sound present and no murmurs GI Palpation (GI): Soft to palpation, nontender and No hepatosplenomegaly present Auscultation: normal bowel sounds Rectal Exam - Female: deferred Skin General skin exam: no rashes or lesions noted Neuro General: patient oriented x3, gait normal and moves all extremities Cranial nerves: Yes Equal, round and reactive pupils present Psych Appearance: grossly normal Mental Status: mental status grossly normal Assessment & Plan Assessment & Plan (1) Dysphagia: Code(s): R13.10 - Dysphagia, unspecified (2) Rectocele with complete uterovaginal prolapse: Code(s): N81.4 - Uterovaginal prolapse, unspecified (3) Gas bloat syndrome: Code(s): K92.89 - Other specified diseases of the digestive system (4) Colon cancer screening: Comment: 12/14 COLONOSCOPY SHOWED: Three diminutive/hyperplastic polyps removed and left-sided diverticulosis noted. Random biopsies obtained from the colon were normal. It's unclear if patient has had adenomatous polyps removed during her past colonoscopy. Therefore, repeat colonoscopy is advised in 5 years (due 11/2023) Code(s): Z12.11 - Encounter for screening for malignant neoplasm of colon (5) Chronic constipation: Code(s): K59.09 - Other constipation (6) Diabetic gastroparesis: Code(s): E11.43 - Type 2 diabetes mellitus with diabetic autonomic (poly)neuropathy; K31.84 - Gastroparesis Plan 77 YF with asthma, hypertension, hypercholesterolemia, glaucoma, type 2 diabetes, GERD followed in GI for GERD, Diabetic gastroparesis, nausea and vomiting and chronic constipation. Past EGD showed mild esophagitis and gastritis. Gastric biopsies were negative for Helicobacter pylori. Gastric emptying study confirmed a diagnosis of diabetic gastroparesis. Retention in the stomach at each time interval was: 1 hour 82% (normal 37%-90%) 2 hours 67% (normal 30%-60%) 3 hours 51% 4 hours 23% (normal 0%-10%). Patient was advised to start simethicone for abdominal bloating, mirtazapine for gastroparesis and Linzess for constipation She discontinued Linzess since it was causing diarrhea and is requesting a prescription for Senna Plus - prescription was sent. Patient was advised to resume Linzess at 72 mcg every other day for 1-2 weeks and increase to daily if she continued to have constipation. 03/01/23 Pt was prescribed Linzess 72 mcg daily FU appt in 3 months. Medications: New linaclotide (Linzess) 72 mcg PO QAM 30 days 30 caps 3RF K59.09 - Other constipation Coding Level of Care Code Est Pt Level 4 (02458) Diagnoses Dysphagia R13.10 Rectocele with complete uterovaginal prolapse N81.4 Gas bloat syndrome K92.89 Colon cancer screening Z12.11 Chronic constipation K59.09 Diabetic gastroparesis E11.43; K31.84 Time Spent (min) 20
[2023-03-01 12:11] VITALS: BP 108/55; PULSE 83; BMI 33.8
== END 2023-03-01 12:49 | disposition home or self-care (01) ==
PROVIDERS: PCP Family Medicine; Visit Provider Internal Medicine Gastroenterology
DX: R13.10 Dysphagia, unspecified (principal); N81.4 Uterovaginal prolapse, unspecified; K92.89 Other specified diseases of the digestive system; Z12.11 Encounter for screening for malignant neoplasm of colon; K59.09 Other constipation; E11.43 Type 2 diabetes mellitus with diabetic autonomic (poly)neuropathy; K31.84 Gastroparesis
CPT/HCPCS: 99214

== ENCOUNTER → 2023-03-01 12:01 | Outpatient (BNVA) | payer OTHER, SELFPAY | PROVIDERS: PCP Family Medicine; Visit Provider Internal Medicine Gastroenterology | DX: Z12.11 Encounter for screening for malignant neoplasm of colon (principal); R13.10 Dysphagia, unspecified; N81.4 Uterovaginal prolapse, unspecified; K92.89 Other specified diseases of the digestive system; K59.09 Other constipation; E11.43 Type 2 diabetes mellitus with diabetic autonomic (poly)neuropathy; K31.84 Gastroparesis | CPT/HCPCS: 99212 ==

== ENCOUNTER 2023-03-27 12:14 | Outpatient (REF) | payer OTHER, SELFPAY ==
--- NOTE | ~2023-03-27 | XR_ITS ---
EXAMINATION: XR FOOT, RIGHT CLINICAL INFORMATION: Puncture wound plantar surface. COMPARISON: None available. TECHNIQUE: AP, lateral, and oblique views of the right foot. FINDINGS: Bony alignment and mineralization are normal. No fracture, dislocation or right ankle joint effusion is seen. Boehler's angle is normal. There are moderate posterior and large plantar calcaneal spurs. There is a large bunion of the first metatarsal head. There are mild degenerative changes of the first through fifth metatarsophalangeal joints. No focal soft tissue swelling, gas or foreign body is seen. There are atherosclerotic calcifications. XR/XR foot RT 2V IMPRESSION: 1. No fracture, dislocation or right ankle joint effusion is seen. 2. There are calcaneal spurs. 3. There are mild osteoarthritic changes of the first through fifth metatarsophalangeal joints. 4. There is a large bunion of the first metatarsal head.
== END 2023-03-27 12:15 | disposition home or self-care (01) ==
LOC: HO.XRAY 12:14
PROVIDERS: PCP Internal Medicine; Visit Provider Internal Medicine
DX: E11.59 Type 2 diabetes mellitus with other circulatory complications (principal)
CPT/HCPCS: 73620

== ENCOUNTER 2023-05-14 10:36 | Outpatient (REF) | payer OTHER, SELFPAY ==
--- NOTE | ~2023-05-14 | XR_ITS ---
EXAMINATION: XR SHOULDER, RIGHT CLINICAL INFORMATION: Pain status-post fall. COMPARISON: Radiographs dated 08/13/2014. TECHNIQUE: AP external rotation, Grashey, scapular Y, and axillary views of the right shoulder. FINDINGS: Bony alignment and mineralization are normal. The glenohumeral joint is intact and shows narrowing and moderate peripheral osteophyte formation. The acromioclavicular and coracoclavicular intervals are normal. A distal acromial undersurface osteophyte is seen. There is cortical irregularity of the greater tuberosity of the proximal right humerus. There is calcific tendinitis of the right rotator cuff. No fracture or dislocation is seen. There is no foreign body. No right pneumothorax is seen. XR/XR shoulder RT min 2V IMPRESSION: 1. Findings are consistent with right rotator cuff impingement. There is calcific tendinitis of the right rotator cuff. 2. There is marked osteoarthritic change of the right glenohumeral joint.
== END 2023-05-14 10:37 | disposition home or self-care (01) ==
LOC: HO.XRAY 10:36
PROVIDERS: PCP Family Medicine; Visit Provider Family Medicine
DX: M25.511 Pain in right shoulder (principal); G89.29 Other chronic pain
CPT/HCPCS: 73030

== ENCOUNTER 2023-05-14 11:36 | Emergency (ER) | payer OTHER, SELFPAY ==
--- NOTE | ~2023-05-14 | XR_ITS ---
EXAMINATION: XR SHOULDER, RIGHT CLINICAL INFORMATION: Status post reduction COMPARISON: Right shoulder at 11:20 AM TECHNIQUE: AP external rotation, Grashey, scapular Y, and axillary views of the right shoulder. FINDINGS: The glenohumeral joint alignment is maintained. No fracture or dislocation seen. Hypertrophic bony changes along the greater tuberosity. There is mild reduction in the right AC joint space with periarticular spurring. No fracture involving the AC joint on the lateral clavicle. The scapula appears unremarkable. XR/XR shoulder RT min 2V IMPRESSION: 1. Significant degenerative changes right AC joint. No visible acute fracture, dislocation or subluxation seen. 2. Hypertrophic bony changes along the greater tuberosity. Normal glenohumeral alignment.
[2023-05-14 11:45] VITALS: BP 161/44; PULSE 67; RESP 20; TEMP 36.9; O2SAT 98; BMI 33.8
--- NOTE | 2023-05-14 11:45 | PC.NURSE ---
Patient comes to ER from [facility] outpatient x-ray due to right shoulder dislocation during x-ray. MD at bedside to put shoulder back in place. Sling placed on right arm, awaiting x-ray at this time. Patient is upper sorbian speaking only. interpretor used, patient is alert and oriented, vss.
--- NOTE | 2023-05-14 11:54 | ED.EXTPRO ---
HPI - Extremity Problem General Chief complaint: Extremity Injury, Upper Stated complaint: shoulder pain Time Seen by Provider: 05/14/23 11:50 Source: patient Limitations: no limitations History of Present Illness HPI Narrative: 77 yo female with PMH of DM, ROXIE, tracheobronchomalacia, HLD, anxiety/depression, fell one month ago in [place] injured R shoulder states she dislocated it then has had pain since. Saw her PCP sent for xrays today went to extend arm in radiology and dislocated the shoulder. Brought to the ED. She denies any dislocations since being home. She is R hand dominant. She has not seen orthopedics or had any work up done until today MD Complaint: joint pain Onset (ago): month(s) (1 month acutely worse in xray) Pain Consistency: constant Location: right and other (shoulder) Quality: aching and constant Radiation: none Relieving factors: immobilization Exacerbating factors: range of motion and palpation Associated symptoms: denies other symptoms Context: other (fall 04/11) Related Data Home Medications Medication Instructions Recorded Confirmed clonidine 0.1 mg/24 hr weekly 1 patch topical QWEEK 12/30/19 03/01/23 transdermal patch lancets (OneTouch UltraSoft #100 ea 01/06/20 03/01/23 Lancets) pen needle, diabetic 32 gauge x #50 ea 08/17/20 03/01/23 sitagliptin phosphate 100 mg tablet 100 mg PO DAILY 08/17/20 03/01/23 linaclotide 145 mcg capsule 145 mcg PO DAILY 11/26/20 03/01/23 (Linzess) sertraline 25 mg tablet 25 mg PO DAILY 11/26/20 03/01/23 simethicone 125 mg capsule (Gas 0 mg PO 11/26/20 03/01/23 Relief Extra Strength) spironolactone 25 mg tablet 25 mg PO DAILY 11/26/20 03/01/23 atorvastatin 80 mg tablet 80 mg PO QAM 07/26/22 03/01/23 latanoprost 0.005 % eye drops 1 drp ophthalmic (eye) BEDTIME 07/26/22 03/01/23 metoprolol succinate 25 mg 25 mg PO DAILY 07/26/22 03/01/23 tablet,extended release 24 hr nitroglycerin 0.4 mg sublingual 0 mg sublingual 07/26/22 03/01/23 tablet ticagrelor 90 mg tablet (Brilinta) 90 mg PO BID 07/26/22 03/01/23 cetirizine 10 mg tablet 10 mg PO DAILY PRN 11/21/22 03/01/23 pioglitazone 45 mg tablet 45 mg PO DAILY 11/21/22 03/01/23 Previous Rx's Medication Instructions Recorded insulin glargine 100 unit/mL (3 35 unit (0.35 mL) subcut DAILY 30 12/18/19 mL) subcutaneous pen (Lantus days #10.5 mL Solostar U-100 Insulin) blood sugar diagnostic (OneTouch #100 ea 01/07/20 Verio test strips) blood-glucose meter (OneTouch #1 ea 01/07/20 Verio Meter) mirabegron 25 mg tablet,extended 25 mg PO DAILY 30 days #30 tabs 10/28/20 release 24 hr (Myrbetriq) omeprazole 40 mg capsule,delayed 40 mg PO DAILY #30 caps 01/06/21 release azelastine 137 mcg (0.1 %) nasal 2 spray intranasal BID 30 days #30 01/19/21 spray aerosol mL inhalational spacing device #1 ea 01/25/21 (Aerochamber MV spacer) nystatin 100,000 unit/mL oral 1 ml PO BID 30 days #60 mL 10/20/21 suspension albuterol sulfate 90 mcg/actuation 2 puff PO Q4H PRN for wheezing 30 11/21/22 aerosol inhaler (Ventolin HFA) days #18 ea budesonide 32 mcg/actuation nasal 2 spray intranasal DAILY 30 days 11/21/22 spray #8.43 mL fluticasone propionate 115 2 puff inhalation Q12H 30 days #12 11/21/22 mcg-salmeterol 21 mcg/actuation grams HFA inhaler (Advair HFA) linaclotide 72 mcg capsule 72 mcg PO QAM 30 days #30 caps 03/01/23 (Linzess) ipratropium 0.5 mg-albuterol 3 mg 3 ml inhalation Q6H PRN for 03/30/23 (2.5 mg base)/3 mL nebulization wheezing #180 mL soln Allergies Allergy/AdvReac Type Severity Reaction Status Date / Time fluticasone [Flovent HFA] Allergy Unknown lip Verified 05/14/23 11:52 swelling lisinopril Allergy Itching Verified 05/14/23 11:52 umeclidinium AdvReac Intermediate Chest Pain Verified 05/14/23 11:52 [From Incruse Ellipta] empagliflozin [Jardiance] AdvReac Unknown vaginal Verified 05/14/23 11:52 itch metformin AdvReac Unknown stomach Verified 05/14/23 11:52 pain sitagliptin [Januvia] AdvReac Unknown stomach Verified 05/14/23 11:52 pain acetaminophen [From Percocet] AdvReac Nausea and Verified 05/14/23 11:52 Vomiting hydrocodone [From Vicodin] AdvReac Nausea and Verified 05/14/23 11:52 Vomiting ibuprofen [From Motrin] AdvReac Stomach Verified 05/14/23 11:52 Upset oxycodone [From Percocet] AdvReac Nausea and Verified 05/14/23 11:52 Vomiting Review of Systems Review of Systems: Constitutional : No Fever, No Chills ENT/Mouth : No Ear Pain, No Hoarseness, No sore throat Eyes: No Eye Pain, No Swelling, No Redness, No Foreign Body Cardiovascular : No Chest Pain, No SOB Respiratory : No Cough, No Dyspnea Gastrointestinal : No Nausea, No Vomiting, No Diarrhea, No abdominal Pain Genitourinary : No Dysuria, No Hematuria Musculoskeletal : positive joint pain, No Myalgias, No Joint Swelling Skin : No Skin lacerations, No rash Neuro : No Weakness, No Numbness, No Loss of Consciousness, No Dizziness, No Headache Psych : No Anxiety/Panic, No Depression All other systems reviewed and are negative [facility] Past Medical History Attestation statement: The following information was validated with the patient. Source: old records reviewed Medical History Dysphagia Tracheobronchomalacia ROXIE (obstructive sleep apnea) Essential hypertension Atherosclerotic cardiovascular disease Urinary incontinence Obese Dyslipidemia Anxiety and depression Gastric pain Sinusitis Chronic allergic rhinitis Asthma Cough Cough Diabetes mellitus Fibromyalgia Pulmonary nodules Surgical History H/O heart artery stent Hx of esophagogastroduodenoscopy History of bronchoscopy Hx of colonoscopy H/O left knee surgery H/O breast biopsy H/O: hysterectomy Family History Family History Father Hypertension Mother Hypertension Diabetes Daughter Diabetes Brother No problems noted. Social History Social History Household Members: Children Alcohol intake: former Patient Tobacco Use Status: Never used Tobacco Second Hand Smoke Exposure: Yes Physical Exam Vital Signs: Vital Signs: Last Vital Signs Temp 98.4 F 05/14/23 11:56 Pulse 67 05/14/23 11:45 Resp 18 05/14/23 11:56 BP 161/44 H 05/14/23 11:45 Pulse Ox 98 05/14/23 11:45 O2 Del Method Room Air 05/14/23 11:45 BMI result Body Mass Index 33.8 Appearance: Alert. Oriented X3. No acute distress. anxious Eyes: Pupils equal, round and reactive to light. ENT: Pharynx normal. Neck: Normal inspection. Neck supple. CVS: Normal heart rate and rhythm. Pulses normal. Respiratory: No respiratory distress. Breath sounds normal. Abdomen: Soft and nontender. Skin: Skin warm and dry. Normal skin color. Normal skin turgor. Extremities: No lower extremity edema. obvious dislocation to R shoulder - distal NV intact Neuro: Oriented X 3. No motor deficit. No sensory deficit. Medical Decision Making Medical Decision Making MDM Narrative: 77 yo female with PMH of DM, ROXIE, tracheobronchomalacia, HLD, anxiety/depression, fell one month ago in [place] injured R shoulder here with dislocation in radiology - review of outpatient xrays show that the patient has likely fragments and prior injury which is likely the cause of her dislocation will reduce and refer to orthopedics she is NV intact Differential Diagnosis Differential Diagnoses: The differential diagnosis associated with the presentation includes dislocation prior fracture Independent Interpretation I performed an independent interpretation of an: Plain X-Ray (FB noted, prior injury reduced shoulder) Radiology Impression Discussion of test interpretation with radiology: I have reviewed the radiologist's reading. Independent Historian Clinical information obtained from an independent historian. History obtained from or confirmed by: Other ([employer]) External Record Review External record reviewed: Outpatient record and Prior outpatient radiology Procedures Orthopedic Joint Reduction Joint #1: Time Out Performed: Yes Side: right Joint Reduction Location: shoulder Analgesia: none Shoulder Technique Used (if applicable): scapula manipulation Post-reduction neuro exam: intact Post-reduction vascular: intact Post Reduction X-Ray Obtained: Yes Post Reduction X-Ray Results: reduced Splint Applied: Yes Patient Tolerated Procedure: well and no complications Additional Comments: quick reduction tolerated well Orthopedic Splinting/Casting Injury #1: Side: right Upper Extremity Injury Location: shoulder Upper Extremity Immobilizer: sling/shoulder immobilizer Additional Comments: NV intact Discharge Plan Discharge Clinical Impression: Dislocated shoulder Qualifiers: Encounter type: initial encounter Laterality: right Qualified Code(s): S43.004A - Unspecified dislocation of right shoulder joint, initial encounter Patient Disposition: Home, Self-Care Instructions: Shoulder Dislocation (ED) Additional Instructions: one week of sling then no lifting over 10lbs no reaching above or behind return for pain, dislocation, return of symptom call orthopedics after discharge Prescriptions: No Action (DME) lancets [OneTouch UltraSoft Lancets] Misc See Rx Instructions .ROUTE .MEDSUPPLY Qty: 100 Rx Instructions: As directed (DME) blood-glucose meter [OneTouch Verio Meter] Misc See Rx Instructions .ROUTE .MEDSUPPLY Qty: 1 0RF Rx Instructions: As directed (DME) OneTouch Verio test strips Strip See Rx Instructions .ROUTE .MEDSUPPLY Qty: 100 0RF Rx Instructions: As directed Myrbetriq 25 mg tablet extended release 24 hr 25 mg PO DAILY 30 Days Qty: 30 1RF (DME) Aerochamber MV Spacer See Rx Instructions .ROUTE .MEDSUPPLY Qty: 1 0RF Rx Instructions: As directed nystatin 100,000 unit/mL suspension 1 ml PO BID 30 Days Qty: 60 2RF Rx Instructions: swish and swallow ipratropium-albuterol 0.5 mg-3 mg(2.5 mg base)/3 mL solution for nebulization 3 ml inhalation Q6H PRN (Reason: for wheezing) Qty: 180 2RF omeprazole 40 mg capsule,delayed release(DR/EC) 40 mg PO DAILY Qty: 30 0RF Lantus Solostar U-100 Insulin 100 unit/mL (3 mL) insulin pen 35 unit subcut DAILY 30 Days Qty: 10.5 11RF clonidine 0.1 mg/24 hr patch weekly 1 patch topical QWEEK Linzess 145 mcg capsule 145 mcg PO DAILY simethicone [Gas Relief Extra Strength] 125 mg capsule 0 mg PO spironolactone 25 mg tablet 25 mg PO DAILY sertraline 25 mg tablet 25 mg PO DAILY (DME) pen needle, diabetic 32 gauge x 5/32 needle See Rx Instructions .ROUTE .MEDSUPPLY Qty: 50 Rx Instructions: As directed Januvia 100 mg tablet 100 mg PO DAILY azelastine 137 mcg (0.1 %) aerosol,spray 2 spray intranasal BID 30 Days Qty: 30 6RF Rx Instructions: administer into each nostril cetirizine 10 mg tablet 10 mg PO DAILY PRN pioglitazone 45 mg tablet 45 mg PO DAILY fluticasone propion-salmeterol [Advair HFA] 115-21 mcg/actuation HFA aerosol inhaler 2 puff inhalation Q12H 30 Days Qty: 12 11RF albuterol sulfate [Ventolin HFA] 90 mcg/actuation HFA aerosol inhaler 2 puff PO Q4H PRN (Reason: for wheezing) 30 Days Qty: 18 6RF budesonide 32 mcg/actuation spray,non-aerosol 2 spray intranasal DAILY 30 Days Qty: 8.43 7RF Rx Instructions: administer into each nostril atorvastatin 80 mg tablet 80 mg PO QAM latanoprost 0.005 % drops 1 drp ophthalmic (eye) BEDTIME Brilinta 90 mg tablet 90 mg PO BID metoprolol succinate 25 mg tablet extended release 24 hr 25 mg PO DAILY nitroglycerin 0.4 mg tablet, sublingual 0 mg sublingual Linzess 72 mcg capsule 72 mcg PO QAM 30 Days Qty: 30 3RF Referrals: Melinda Acuna PA-C [Physician Blood [employer] Calendar Control Clerk] - Print Language: Wolof
[2023-05-14 11:56] VITALS: RESP 18; TEMP 36.9
--- NOTE | 2023-05-14 12:09 | MHC.CM.PN ---
CM consult placed, CM services not indicated at this time, pt aware that she will need to go through PCP for an increase in [employer] services.
[2023-05-14 13:00] VITALS: BP 166/72; PULSE 66; RESP 18; TEMP 36.8; O2SAT 94
== END 2023-05-14 13:01 | disposition home or self-care (01) ==
PROVIDERS: Emergency Provider Emergency Medicine; PCP Family Medicine
DX: S43.004A Unspecified dislocation of right shoulder joint, initial encounter (principal); E11.9 Type 2 diabetes mellitus without complications; I10 Essential (primary) hypertension; W19.XXXA Unspecified fall, initial encounter; Y93.9 Activity, unspecified; Y92.9 Unspecified place or not applicable; Y99.9 Unspecified external cause status
CPT/HCPCS: 23650; 73030; 99283; 99284

== ENCOUNTER 2023-05-21 10:09 | Outpatient (AMB) | payer OTHER, SELFPAY ==
--- NOTE | 2023-05-21 10:21 | A.OFFVIS_ITS ---
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 Required: No Allergies fluticasone [Flovent HFA] Allergy (Unknown, Verified 05/21/23 10:24) lip swelling lisinopril Allergy (Verified 05/21/23 10:24) Itching umeclidinium [From Incruse Ellipta] Adverse Reaction (Intermediate, Verified 05/21/23 10:24) Chest Pain empagliflozin [Jardiance] Adverse Reaction (Unknown, Verified 05/21/23 10:24) vaginal itch metformin Adverse Reaction (Unknown, Verified 05/21/23 10:24) stomach pain sitagliptin [Januvia] Adverse Reaction (Unknown, Verified 05/21/23 10:24) stomach pain acetaminophen [From Percocet] Adverse Reaction (Verified 05/21/23 10:24) Nausea and Vomiting hydrocodone [From Vicodin] Adverse Reaction (Verified 05/21/23 10:24) Nausea and Vomiting ibuprofen [From Motrin] Adverse Reaction (Verified 05/21/23 10:24) Stomach Upset oxycodone [From Percocet] Adverse Reaction (Verified 05/21/23 10:24) Nausea and Vomiting HPI HPI Comments History of Present Illness Details The patient is a 77 year-old woman with a known history of asthma, pulmonary nodules and chronic cough. Today she has a telehealth visit. She was in her usual state health until for the last few days which she has been having worsening cough in addition to allergy symptoms. She has been visiting family in the symptoms appear to be getting worse. She has tried Benadryl because of significant daytime drowsiness. In addition to that she continues with current respiratory therapy with only partial resolution of the symptoms. She denies any fevers or chills or any exposure to any cover 19 infection. 07/22/2020 the patient is here for a [facility]-up visit. She is status post bronchoscopy. 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 Her left mainstem bronchus also appeared to be inflamed consistent with bronchitis. Her cultures were all negative except set for some filamentous fungus. I do not believe that this is infectious process. However, the patient has significant allergies and likely contributing to her worsening asthma and allergy symptoms. She is concerned because she also has mold in her current home that she is renting. At this point this place is not healthy and safe for her pulmonary health. I did provide her with a brief letter recommended that she relocate to an apartment or home free of rugs, free of pests and also free of mold. The patient is using cough medications. This has been helpful. In addition to has a history of obstructive sleep apnea. She not using CPAP at this time. The patient does have daytime drowsiness in addition to intermittent headaches. She also has a significant history of snoring. Her [place] score is elevated 01/19. I will request a home sleep study for the patient as well. The patient does have a CPT Acapella valve that she needs to use. She will bring it into the next visit so I can tissue had to use it in the meantime she is going to continue with current respiratory therapy. She also has an allergy appointment coming up soon. We did talk about the tracheobronchomalacia as far as different interventions. Ultimately if she wants to have a referral to [place] and will be reasonable specially if she fails conservative management. 07/26/2022 The patient is here for a foll ow up visit. he is doing well now. Several months ago she was admitted to [facility] with NSTEMI. Initially felt to need CABG, but then underwent a PCI with 2 stents to the RCA. She then was discharged, but then readmitted and underwent a repeat cath with PCI to LAD and OM2. She now is recovering.nIs suppose to start rehab. Has been using her inhalers as prescribed. She did under a CT chest, but is not read as of yet. I will call her once I have the results. Not tolerating the Breo powder. Causing hoarseness. Having worsening allergy symptoms with nasal congestion and cough. moderate in severity. 11/21/2022 the patient is here for a pulm onary follow-up visit. She is recovering from her cardiac interventions. She is participating in cardiac rehabilitation. She is tolerating that well. Now going to the fall she has noticed increasing allergy symptoms. She has been using her [id number] allergy medicine and has been using the Advair inhaler. She does use at twice a day. Still having to use her rescue inhaler throughout the day in complaining of chest tightness and cough. The patient also has some degree of tracheal bronchomalacia that is likely affecting her airway clearance. The patient was following up with Allergy and then now needs a referral to a new office because of a recent change. The patient will continue to follow up with Allergy immunology because allergy shots were providing her positive results per in the meantime will going to go ahead and optimize respiratory therapy by adding a long-acting muscarinic antagonist and she will continue with the combination inhaler. 05/21/2023 the patient is here for a pulm onary follow-up visit. The patient overall has been about the same. She still complains of a cough. Has been getting worse still. Moderate severity. With some chest congestion. Also sinus pressure feels like the cough is mainly from a postnasal drip. The patient has been on nasal therapies without any significant improvement. She does have issues with tracheobronchomalacia likely contributing to her chronic cough. Will go ahead and try her on a small dose of doxycycline for 10 days to see if we can alleviate her symptoms. In the meantime she has been on the respiratory inhalers with partial improvement of the symptoms. She responds better to the nebulized therapy. Will make sure to provide the medications to the pharmacy. We also give her breathing treatment in the office. She does get replacement nebulizer since hers is broken beyond repair. [facility] Medical History Dysphagia Tracheobronchomalacia ROXIE (obstructive sleep apnea) Essential hypertension Atherosclerotic cardiovascular disease Urinary incontinence Obese Dyslipidemia Anxiety and depression Gastric pain Sinusitis Chronic allergic rhinitis Asthma Cough Cough Diabetes mellitus Fibromyalgia Pulmonary nodules Surgical History H/O heart artery stent Hx of esophagogastroduodenoscopy History of bronchoscopy Hx of colonoscopy H/O left knee surgery H/O breast biopsy H/O: hysterectomy Family History Father Hypertension Mother Hypertension Diabetes Daughter Diabetes Brother No problems noted. Social History Household Members: Children Alcohol intake: former Patient Tobacco Use Status: Never used Tobacco Second Hand Smoke Exposure: Yes Review of Systems Const Reports fatigue, Denies fever(s), Denies headache(s), Denies night sweats and Denies weight loss Eyes Denies eye discharge and Denies irritation ENT Reports Normal hearing present, Denies dizziness, Denies headache(s), Reports nasal congestion and Reports post nasal drip Card Denies chest pain, Denies leg edema, Denies dyspnea and Denies dyspnea on exertion Resp Reports chest congestion, Reports cough, Denies dyspnea, Denies dyspnea on exertion and Denies wheezing GI Denies change in bowel habits and Reports heartburn Denies difficulty voiding and Denies dysuria Musc Denies back pain and Denies arthralgias Skin/Breast Denies pruritus, Denies rash and Denies jaundice Neuro Reports Normal hearing present, Denies Abnormal speech present, Denies dizziness, Denies headache(s) and Denies seizure-like activity Psych Denies anxiety, Denies depression and Denies panic attacks Endo Denies cold intolerance, Reports fatigue, Denies flushing and Denies heat intolerance Osman/Lymph Denies easy bleeding and Denies easy bruising Aller/Immun Denies wheezing Physical Exam Vital Signs: Last Vital Signs Pulse 89 05/21/23 10:22 Pulse Ox 98 05/21/23 10:22 Oxygen Delivery Method Room Air 05/21/23 10:22 BMI result Body Mass Index 33.7 Const General: alert HEENT Mouth: tongue abnormal Neck Neck: Yes normal visual inspection, Yes full ROM and Yes no lymphadenopathy Chest Chest palpation & inspection: normal inspection of the chest Resp Auscultation: no wheezes and diminished lung sounds Cardio Rate: regular rate Rhythm: regular rhythm Heart sounds: S1 normal heart sound present and S2 normal heart sound present GI Palpation (GI): Soft to palpation and nontender Auscultation: normal bowel sounds Skin General skin exam: rashes and/or lesions noted Neuro Cranial nerves: Yes Normal hearing present Speech: No Abnormal speech present Office Procedures Nebulizer Treatment Nebulizer Treatment [id number]/MDI RX initial, or Nebulizer Subsequent Treatment Office Meds ipratropium 0.5 mg-albuterol 3 mg (2.5 mg base)/3 mL nebulization soln Performing Provider: Reji Wilks MD Performing Location: [facility] Administered by: Tracy Frost LPN on 05/21/23 11:02 Dose Route Admin Location Dispensed Lot Number Expiration Date NDC Invisible Braces Orthodontist 3 mL inhalation 3 mL [id number] 08/25/24 4346-1819-39 [facility] Assessment & Plan Assessment & Plan (1) Asthma: Code(s): J45.909 - Unspecified asthma, uncomplicated Qualifiers: Asthma complication type: uncomplicated Asthma persistence: persistent Asthma severity: moderate Qualified Code(s): J45.40 - Moderate persistent asthma, uncomplicated (2) Pulmonary nodules: Code(s): R91.8 - Other nonspecific abnormal finding of lung field (3) ROXIE (obstructive sleep apnea): Code(s): G47.33 - Obstructive sleep apnea (adult) (pediatric) (4) Cough: Code(s): R05 - Cough Qualifiers: Cough type: chronic Qualified Code(s): R05.3 - Chronic cough (5) Chronic allergic rhinitis: Code(s): J30.9 - Allergic rhinitis, unspecified (6) Tracheobronchomalacia: Code(s): J39.8 - Other specified diseases of upper respiratory tract Plan start Doxycycline Her nebulizer is no longer working, needs a replacment for her Albuterol and duoneb continue APAP, full face mask, F30 continue CPT with flutter valve twice a day continue Advair HFA add spacer and then rinse with salt water continue Singulair ELAINE/DuoNebs as needed nasal spray Azelastine nasal spray Allergy f/u follow-up 6 months Orders: Orders AMB Nebulizer Treatment Today J45.909 - Unspecified asthma, uncomplicated Medications: New doxycycline monohydrate 100 mg PO BID 14 days 28 tabs 0RF budesonide 0.5 mg (2 mL) inhalation BID 30 days 120 mL 11RF J44.9 - Chronic obstructive pulmonary disease, unspecified Coding Level of Care Code Est Pt Level 4 (50804) Diagnoses Moderate persistent asthma without complication J45.40 Asthma complication type: uncomplicated Asthma persistence: persistent Asthma severity: moderate Pulmonary nodules R91.8 ROXIE (obstructive sleep apnea) G47.33 Chronic cough R05.3 Cough type: chronic Chronic allergic rhinitis J30.9 Tracheobronchomalacia J39.8 CPT Codes Nebulizer Treatment - Nebulizer Treatment, initial or subsequent: 41634- Nebulizer/MDI RX initial, or Nebulizer Subsequent Treatment ([id number]) Time Spent (min) 17
[2023-05-21 10:22] VITALS: PULSE 89; O2SAT 98; BMI 33.7
== END 2023-05-21 10:57 | disposition home or self-care (01) ==
PROVIDERS: PCP Family Medicine; Visit Provider Hospitalist
DX: J45.40 Moderate persistent asthma, uncomplicated (principal); R91.8 Other nonspecific abnormal finding of lung field; G47.33 Obstructive sleep apnea (adult) (pediatric); R05.3 Chronic cough; J30.9 Allergic rhinitis, unspecified; J39.8 Other specified diseases of upper respiratory tract; J45.909 Unspecified asthma, uncomplicated
CPT/HCPCS: 99214

== ENCOUNTER → 2023-05-21 10:09 | Outpatient (BNVA) | payer OTHER, SELFPAY | PROVIDERS: PCP Family Medicine; Visit Provider Hospitalist | DX: J45.40 Moderate persistent asthma, uncomplicated (principal); J30.9 Allergic rhinitis, unspecified; J39.8 Other specified diseases of upper respiratory tract; R91.8 Other nonspecific abnormal finding of lung field; R05.3 Chronic cough; G47.33 Obstructive sleep apnea (adult) (pediatric) | CPT/HCPCS: 94640; 99212 ==

== ENCOUNTER 2023-05-28 10:07 | Outpatient (AMB) | payer OTHER, SELFPAY ==
--- NOTE | 2023-05-28 10:20 | MHC.OFFVIS ---
Intake Intake Visit Reasons: OV-rt shldr s/p dislocation-two week follow up Intake Note: Natali is a 77 year old female who presents today for a new problem visit with complaints of right shoulder pain. Patient reports thalt she was in [place] and took a fall on the right shoulder, she was seen wiht her PCP when she returned and had multiple dislocations when extending the arm. Allergies fluticasone [Flovent HFA] Allergy (Unknown, Verified 05/28/23 10:24) lip swelling lisinopril Allergy (Verified 05/28/23 10:24) Itching umeclidinium [From Incruse Ellipta] Adverse Reaction (Intermediate, Verified 05/28/23 10:24) Chest Pain empagliflozin [Jardiance] Adverse Reaction (Unknown, Verified 05/28/23 10:24) vaginal itch metformin Adverse Reaction (Unknown, Verified 05/28/23 10:24) stomach pain sitagliptin [Januvia] Adverse Reaction (Unknown, Verified 05/28/23 10:24) stomach pain acetaminophen [From Percocet] Adverse Reaction (Verified 05/28/23 10:24) Nausea and Vomiting hydrocodone [From Vicodin] Adverse Reaction (Verified 05/28/23 10:24) Nausea and Vomiting ibuprofen [From Motrin] Adverse Reaction (Verified 05/28/23 10:24) Stomach Upset oxycodone [From Percocet] Adverse Reaction (Verified 05/28/23 10:24) Nausea and Vomiting HPI OV-rt shldr s/p dislocation-two week follow up HPI Details This is a 77-year-old woman who presents 2-3 weeks status post right shoulder dislocation in [place]. She states she slipped and fell and was seen in the emergency department where they reduced her shoulder. She does endorse having pain prior to her fall but different. Now she describes discomfort but she denies numbness and tingling. She can move her shoulder. [facility] Medical History Dysphagia Tracheobronchomalacia ROXIE (obstructive sleep apnea) Essential hypertension Atherosclerotic cardiovascular disease Urinary incontinence Obese Dyslipidemia Anxiety and depression Gastric pain Sinusitis Chronic allergic rhinitis Asthma Cough Cough Diabetes mellitus Fibromyalgia Pulmonary nodules Surgical History H/O heart artery stent Hx of esophagogastroduodenoscopy History of bronchoscopy Hx of colonoscopy H/O left knee surgery H/O breast biopsy H/O: hysterectomy Family History Father Hypertension Mother Hypertension Diabetes Daughter Diabetes Brother No problems noted. Social History Household Members: Children Alcohol intake: former Patient Tobacco Use Status: Never used Tobacco Second Hand Smoke Exposure: Yes Physical Exam Const General: cooperative, healthy appearing, no acute distress and well groomed Orientation/consciousness: oriented to person and oriented to place HEENT Head: Yes normal to inspection, Yes normocephalic and Yes atraumatic Eyes General: appearance normal, both eyes and all related structures Alignment and Position: alignment normal Conjunctivae: conjunctivae normal EOM: EOMs intact bilaterally Neck Neck: Yes normal visual inspection and Yes trachea midline Resp Other: No rerpiratory distress Effort & Inspection: normal respiratory effort and able to speak in complete sentences Cardio Other: Palpable radial pulse with no appreciable rythmic abnormalities GI Other: No abdominal distension Back/Spine/Pelvis Cervical Spine: normal cervical lordosis and cervical ROM normal Skin General skin exam: no rashes or lesions noted Neuro General: oriented to person, oriented to place and gait normal Extrem Other: Shoulder: Skin intact to light touch lateral deltoid External rotation 30 degrees. She can get her hand to the back of her head. Results Reviewed Results Reviewed: I personally reviewed relevant radiographs. Significant degenerative changes right AC joint. No visible acute fracture, dislocation or subluxation seen. Hypertrophic bony changes along the greater tuberosity. Normal glenohumeral alignment. Assessment & Plan Assessment & Plan (1) Shoulder arthritis: Code(s): M19.019 - Primary osteoarthritis, unspecified shoulder Plan: This is a 77-year-old woman with osteoarthritis of the right shoulder. This has been symptomatic but her primary complaint at this point is pain status post fall and dislocation. (2) Dislocation of right shoulder joint: Code(s): S43.004A - Unspecified dislocation of right shoulder joint, initial encounter Plan: Status post dislocation right shoulder. I recommend physical therapy and follow-up after that. She has pre-existing osteoarthritis. Her rotator cuff appears to be intact but she is hesitant to move still. I discussed the approach to shoulder instability in the setting of osteoarthritis. Orders: Orders PT Evaluation and Treatment 05/28/23 M19.019 - Primary osteoarthritis, unspecified shoulder, S43.004A - Unspecified dislocation of right shoulder joint, initial encounter Coding Level of Care Code Est Pt Level 4 (43886) Diagnoses Shoulder arthritis M19.019 Dislocation of right shoulder joint S43.004A
== END 2023-05-28 11:36 | disposition home or self-care (01) ==
PROVIDERS: PCP Family Medicine; Visit Provider Orthopaedic Surgery
DX: M19.019 Primary osteoarthritis, unspecified shoulder (principal); S43.004A Unspecified dislocation of right shoulder joint, initial encounter
CPT/HCPCS: 99213

== ENCOUNTER → 2023-05-28 10:07 | Outpatient (BNVA) | payer OTHER, SELFPAY | PROVIDERS: PCP Family Medicine; Visit Provider Orthopaedic Surgery | DX: M19.011 Primary osteoarthritis, right shoulder (principal); S43.004A Unspecified dislocation of right shoulder joint, initial encounter; W18.30XA Fall on same level, unspecified, initial encounter; Y93.9 Activity, unspecified; Y92.9 Unspecified place or not applicable; Y99.9 Unspecified external cause status | CPT/HCPCS: 99212 ==

== ENCOUNTER 2023-05-30 13:24 | Outpatient (REF) | payer OTHER, SELFPAY ==
[2023-05-30 15:23] LABS: Influenza A PCR NEGATIVE (Negative); Influenza B PCR NEGATIVE (Negative); Resp Syncy Virus RNA Qual PCR NEGATIVE (Negative); SARS COV2 PCR INHOUSE NEGATIVE (Negative)
== END 2023-05-30 13:25 | disposition home or self-care (01) ==
LOC: HO.CHCLNP 13:24
PROVIDERS: Visit Provider Family Medicine
DX: R05.3 Chronic cough (principal)
CPT/HCPCS: 0241U

== ENCOUNTER → 2023-06-18 10:36 | Outpatient (BNVA) | payer OTHER, SELFPAY | PROVIDERS: PCP Family Medicine; Visit Provider Internal Medicine | DX: I25.10 Atherosclerotic heart disease of native coronary artery without angina pectoris (principal); I10 Essential (primary) hypertension; E11.8 Type 2 diabetes mellitus with unspecified complications; E78.5 Hyperlipidemia, unspecified | CPT/HCPCS: 99212 ==

== ENCOUNTER 2023-06-18 10:59 | Outpatient (AMB) | payer OTHER, SELFPAY ==
--- NOTE | 2023-06-18 11:13 | A.OFFVIS_ITS ---
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 Insulation Packer Required: Yes Insulation Packer Name: [id number] Allergies fluticasone [Flovent HFA] Allergy (Unknown, Verified 05/28/23 10:24) lip swelling lisinopril Allergy (Verified 05/28/23 10:24) Itching umeclidinium [From Incruse Ellipta] Adverse Reaction (Intermediate, Verified 05/28/23 10:24) Chest Pain empagliflozin [Jardiance] Adverse Reaction (Unknown, Verified 05/28/23 10:24) vaginal itch metformin Adverse Reaction (Unknown, Verified 05/28/23 10:24) stomach pain sitagliptin [Januvia] Adverse Reaction (Unknown, Verified 05/28/23 10:24) stomach pain acetaminophen [From Percocet] Adverse Reaction (Verified 05/28/23 10:24) Nausea and Vomiting hydrocodone [From Vicodin] Adverse Reaction (Verified 05/28/23 10:24) Nausea and Vomiting ibuprofen [From Motrin] Adverse Reaction (Verified 05/28/23 10:24) Stomach Upset oxycodone [From Percocet] Adverse Reaction (Verified 05/28/23 10:24) Nausea and Vomiting Medication List - Last Reconciled 06/18/23 by Jm Spencer MD albuterol sulfate 90 mcg/actuation (Ventolin HFA) 2 puffs PO Q4H PRN 30 days azelastine 2 sprays intranasal BID 30 days blood sugar diagnostic (OneTouch Verio test strips) As directed blood-glucose meter (OneTouch Verio Meter) As directed budesonide 32 mcg/actuation 2 sprays intranasal DAILY 30 days budesonide 0.5 mg (2 mL) inhalation BID 30 days carvedilol 3.125 mg PO BID clonidine 1 patch topical QWEEK fluticasone propion-salmeterol 115-21 mcg/actuation (Advair HFA) 2 puffs inhalation Q12H 30 days inhalational spacing device (Aerochamber MV spacer) As directed insulin glargine (Lantus Solostar U-100 Insulin) 35 units (0.35 mL) subcut DAILY 30 days ipratropium-albuterol 0.5 mg-3 mg(2.5 mg base)/3 mL 3 mL inhalation Q6H PRN lancets (OneTouch UltraSoft Lancets) As directed latanoprost 0.005% 1 drp ophthalmic (eye) BEDTIME linaclotide (Linzess) 72 mcg PO QAM 30 days mirabegron ER (Myrbetriq) 25 mg PO DAILY 30 days pen needle, diabetic As directed pioglitazone 45 mg PO DAILY rosuvastatin 40 mg PO DAILY sertraline 50 mg PO DAILY sertraline 50 mg PO DAILY simethicone (Gas Relief Extra Strength) 0 mg PO spironolactone 25 mg PO DAILY ticagrelor (Brilinta) 90 mg PO BID HPI Comments Details: Natali is here for consultation regarding coronary disease. She was seen around 2020 but not recently. It seems that she might have been seen at [facility] last year. Cardiac data reviewed. Apparently, she was admitted with NSTEMI to [facility] and then had cardiac catheterization and that showed multivessel coronary disease. Subsequently, she was seen by cardiac surgery for CABG but declined. Then it seems that she underwent PCI of RCA followed by staged PCI of LAD/OM. After that, probably saw someone in [facility] and then now she is here. Very difficult to put all this together. She has not having any anginal-type symptoms. On polypharmacy. Does not seem to be on aspirin and she states that she was not taking it because of gastritis as well as bruising. However, still taking the Brilinta. [facility] Medical History Dysphagia Tracheobronchomalacia ROXIE (obstructive sleep apnea) Essential hypertension Atherosclerotic cardiovascular disease Urinary incontinence Obese Dyslipidemia Anxiety and depression Gastric pain Sinusitis Chronic allergic rhinitis Asthma Cough Cough Diabetes mellitus Fibromyalgia Pulmonary nodules Surgical History H/O heart artery stent Hx of esophagogastroduodenoscopy History of bronchoscopy Hx of colonoscopy H/O left knee surgery H/O breast biopsy H/O: hysterectomy Family History Father Hypertension Mother Hypertension Diabetes Daughter Diabetes Brother No problems noted. Social History Household Members: Children Alcohol intake: former Patient Tobacco Use Status: Never used Tobacco Second Hand Smoke Exposure: Yes Review of Systems Const Denies weakness ENT Denies dizziness Card Denies chest pain, Denies chest pain with activity, Denies syncope, Denies rapid heart rate, Denies pedal edema, Denies edema, Denies leg edema, Denies lightheadedness, Denies palpitations, Denies dyspnea, Denies dyspnea on exertion and Denies orthopnea Resp Denies cough, Denies dyspnea and Denies dyspnea on exertion GI Denies hematochezia and Denies change in stool character Musc Denies abnormal gait, Denies muscle cramps, Denies muscle weakness, Denies numbness, Denies radiating pain into limb and Denies tingling Neuro Denies abnormal gait, Denies dizziness, Denies syncope, Denies numbness, Denies tingling and Denies weakness Endo Denies palpitations Physical Exam Vital Signs: Last Vital Signs Pulse 89 06/18/23 11:14 BP 147/78 H 06/18/23 11:14 Pulse Ox 96 06/18/23 11:14 Oxygen Delivery Method Room Air 06/18/23 11:14 BMI result Body Mass Index 34.1 Const General: comfortable and no acute distress Orientation/consciousness: patient oriented x3 HEENT Other: Unremarkable Head: Yes normal to inspection Neck Neck: Yes normal visual inspection Chest Chest palpation & inspection: normal inspection of the chest Resp Auscultation: clear to auscultation bilaterally Cardio Palpation: normal PMI Heart sounds: S1 normal heart sound present, S2 normal heart sound present, no gallops, no murmurs and no rubs GI Palpation (GI): Soft to palpation Back/Spine/Pelvis Other: unremarkable Skin General skin exam: no rashes or lesions noted Neuro General: patient oriented x3 Extrem General: Yes normal to inspection Psych Mental Status: mental status grossly normal Assessment & Plan Assessment & Plan (1) Atherosclerotic cardiovascular disease: Code(s): I25.10 - Atherosclerotic heart disease of [place] coronary artery without angina pectoris Category: Medical (2) Essential hypertension: Code(s): I10 - Essential (primary) hypertension Category: Medical (3) Type 2 diabetes mellitus with unspecified complications: Code(s): E11.8 - Type 2 diabetes mellitus with unspecified complications Category: Medical (4) Other and unspecified hyperlipidemia: Code(s): E78.5 - Hyperlipidemia, unspecified Category: Medical Plan Per available data, status post PCI to RCA/LAD/OM2 from June 2022. Currently, not having any active cardiac symptoms. Will need to obtain all old records from [facility]. She states she also probably had an echocardiogram there. We will also need to obtain any lipid profiles. Last LDL of be having system is quite high. It seems she might have had done more with her box toe cementer, . She is listed to be on high-dose statins. Otherwise, with her polypharmacy prefer not to make any major changes at this time. Will obtain records and review and follow-up with her.
[2023-06-18 11:14] VITALS: BP 147/78; PULSE 89; O2SAT 96; BMI 34.1
== END 2023-06-18 11:50 | disposition home or self-care (01) ==
PROVIDERS: PCP Family Medicine; Visit Provider Internal Medicine
DX: I25.10 Atherosclerotic heart disease of native coronary artery without angina pectoris (principal); I10 Essential (primary) hypertension; E11.8 Type 2 diabetes mellitus with unspecified complications; E78.5 Hyperlipidemia, unspecified
CPT/HCPCS: 99214

== ENCOUNTER 2023-06-28 14:25 | Outpatient (AMB) | payer OTHER, SELFPAY ==
[2023-06-28 15:15] VITALS: BP 138/78; PULSE 78; O2SAT 98; BMI 33.8
--- NOTE | 2023-06-28 15:15 | MHC.OFFVIS ---
Vital Signs 06/28/23 15:15 Height 4 ft 8 in Weight 151 lb BMI 33.8 BP 138/78 Blood Pressure Location Lt brachial Position Sitting Pulse 78 Pulse Source Pulse Oximeter Pulse Oximetry (%) 98 Oxygen Delivery Method Room Air Intake Visit Reasons: sob,chest pain Intake Note: PT PAIN IN LEGS AND SOB Process Development Associate Required: Yes Process Development Associate Name: [id number] Allergies fluticasone [Flovent HFA] Allergy (Unknown, Verified 06/28/23 15:49) lip swelling lisinopril Allergy (Verified 06/28/23 15:49) Itching umeclidinium [From Incruse Ellipta] Adverse Reaction (Intermediate, Verified 06/28/23 15:49) Chest Pain empagliflozin [Jardiance] Adverse Reaction (Unknown, Verified 06/28/23 15:49) vaginal itch metformin Adverse Reaction (Unknown, Verified 06/28/23 15:49) stomach pain sitagliptin [Januvia] Adverse Reaction (Unknown, Verified 06/28/23 15:49) stomach pain acetaminophen [From Percocet] Adverse Reaction (Verified 06/28/23 15:49) Nausea and Vomiting hydrocodone [From Vicodin] Adverse Reaction (Verified 06/28/23 15:49) Nausea and Vomiting ibuprofen [From Motrin] Adverse Reaction (Verified 06/28/23 15:49) Stomach Upset oxycodone [From Percocet] Adverse Reaction (Verified 06/28/23 15:49) Nausea and Vomiting Medication List - Last Reconciled 06/28/23 by Sandra Avila NP albuterol sulfate 90 mcg/actuation (Ventolin HFA) 2 puffs PO Q4H PRN 30 days aspirin 81 mg PO DAILY azelastine 2 sprays intranasal BID 30 days blood sugar diagnostic (OneTouch Verio test strips) As directed blood-glucose meter (OneTouch Verio Meter) As directed budesonide 32 mcg/actuation 2 sprays intranasal DAILY 30 days budesonide 0.5 mg (2 mL) inhalation BID 30 days carvedilol 3.125 mg PO BID clonidine 1 patch topical QWEEK fluticasone propion-salmeterol 115-21 mcg/actuation (Advair HFA) 2 puffs inhalation Q12H 30 days inhalational spacing device (Aerochamber MV spacer) As directed insulin glargine (Lantus Solostar U-100 Insulin) 35 units (0.35 mL) subcut DAILY 30 days ipratropium-albuterol 0.5 mg-3 mg(2.5 mg base)/3 mL 3 mL inhalation Q6H PRN lancets (OneTouch UltraSoft Lancets) As directed latanoprost 0.005% 1 drp ophthalmic (eye) BEDTIME linaclotide (Linzess) 72 mcg PO QAM 30 days mirabegron ER (Myrbetriq) 25 mg PO DAILY 30 days pen needle, diabetic As directed pioglitazone 45 mg PO DAILY rosuvastatin 40 mg PO DAILY sertraline 50 mg PO DAILY sertraline 50 mg PO DAILY simethicone (Gas Relief Extra Strength) 0 mg PO spironolactone 25 mg PO DAILY HPI Comments Details: 77-year-old female presents today for a follow-up. She reports she has been having pain all over her body, feeling fatigued, and blurred vision. She reports she feels this all the time since the stent and it changes in intensity. She had a PCI back in June 2022. She has stopped Brilinta today. She denies chest pains. [facility] Medical History Dysphagia Tracheobronchomalacia ROXIE (obstructive sleep apnea) Essential hypertension Atherosclerotic cardiovascular disease Urinary incontinence Obese Dyslipidemia Anxiety and depression Gastric pain Sinusitis Chronic allergic rhinitis Asthma Cough Cough Diabetes mellitus Fibromyalgia Pulmonary nodules Surgical History H/O heart artery stent Hx of esophagogastroduodenoscopy History of bronchoscopy Hx of colonoscopy H/O left knee surgery H/O breast biopsy H/O: hysterectomy Family History Father Hypertension Mother Hypertension Diabetes Daughter Diabetes Brother No problems noted. Social History Household Members: Children Alcohol intake: former Patient Tobacco Use Status: Never used Tobacco Second Hand Smoke Exposure: Yes Review of Systems Const Denies weakness ENT Denies dizziness Card Denies chest pain, Denies chest pain with activity, Denies syncope, Denies rapid heart rate, Denies pedal edema, Denies edema, Denies leg edema, Denies lightheadedness, Denies palpitations, Denies dyspnea, Denies dyspnea on exertion and Denies orthopnea Resp Denies cough, Denies dyspnea and Denies dyspnea on exertion GI Denies hematochezia and Denies change in stool character Musc Denies abnormal gait, Denies muscle cramps, Denies muscle weakness, Denies numbness, Denies radiating pain into limb and Denies tingling Neuro Denies abnormal gait, Denies dizziness, Denies syncope, Denies numbness, Denies tingling and Denies weakness Endo Denies palpitations Physical Exam Vital Signs: Last Vital Signs Pulse 78 06/28/23 15:15 BP 138/78 06/28/23 15:15 Pulse Ox 98 06/28/23 15:15 Oxygen Delivery Method Room Air 06/28/23 15:15 BMI result Body Mass Index 33.8 Const General: healthy appearing and no acute distress Orientation/consciousness: patient oriented x3 HEENT Head: Yes normal to inspection Eyes General: appearance normal, both eyes and all related structures Neck Neck: Yes normal visual inspection Chest Chest palpation & inspection: normal inspection of the chest Resp Effort & Inspection: normal respiratory effort Auscultation: clear to auscultation bilaterally Cardio Jugular venous distension: no JVD Palpation: normal PMI Rate: regular rate Rhythm: regular rhythm Heart sounds: S1 normal heart sound present, S2 normal heart sound present, no click, no gallops, no murmurs and no rubs GI Inspection: Yes normal to inspection Palpation (GI): Soft to palpation Skin General skin exam: no rashes or lesions noted Neuro General: patient oriented x3 Extrem General: Yes normal to inspection Psych Appearance: grossly normal Assessment & Plan Assessment & Plan (1) Atherosclerotic cardiovascular disease: Code(s): I25.10 - Atherosclerotic heart disease of [place] coronary artery without angina pectoris Category: Medical Plan Status post PCI to RCA/LAD/OM2 from June 2022.She can stop the Brilinta at this time. Patient agreed to plan. Coding Level of Care Code Est Pt Level 3 (25356) Diagnoses Atherosclerotic cardiovascular disease I25.10
== END 2023-06-28 15:56 | disposition home or self-care (01) ==
PROVIDERS: PCP Family Medicine; Visit Provider Nurse Practitioner
DX: I25.10 Atherosclerotic heart disease of native coronary artery without angina pectoris (principal)
CPT/HCPCS: 99213

== ENCOUNTER → 2023-06-28 14:25 | Outpatient (BNVA) | payer OTHER, SELFPAY | PROVIDERS: PCP Family Medicine; Visit Provider Nurse Practitioner | DX: I25.10 Atherosclerotic heart disease of native coronary artery without angina pectoris (principal) | CPT/HCPCS: 99212 ==

== ENCOUNTER 2023-08-02 10:00 | Outpatient (RCR) | payer OTHER, SELFPAY ==
--- NOTE | 2023-07-13 14:32 | MHC.PT.EP ---
[facility] [place] Office [place] Office [place] Office [address] Lisa Allen [address] [phone] F: [phone] F: [phone] F: [phone] F: [phone] Physical Therapy Plan of Care Date of Evaluation: 07/09/23 Date of Surgery: Diagnosis: - Primary osteoarthritis, unspecified shoulder, - Unspecified dislocation of right shoulder joint Assessment: Pt is a 77 y/o RHD female referred to PT for eval and treat of dislocation R shoulder and OA of shoulder who reports her condition is resulting in decreased tolerance for performing heavy HH chores, reaching high shelves, dressing pullovers, as well as reaching her back, and dressing and washing her hair secondary to recent shoulder dislocation, decreased R shoulder AROM, decreased scapular posture, and decreased B shoulder strength and pain. Pt is deemed an appropriate candidate to receive skilled PT services to address their physical impairments in order to improve their functional ability. Frequency and Duration: The patient will be seen 2 x/ wk x 4 wks. Short Term Goals: initiate home program. Improve baseline pain from 5-10/10 to at most 3-7/10. Mcc Goals: I with home program. Improve SPADI outcome by at least 13 points. Pt will be able to reach high shelves with managed Sx; initial: unable. Pt will be able to dress pullovers with managed Sx; initial 10/10 difficulty. Treatment Plan: Modalities to reduce pain, spasms and effusion. Manual therapy to restore motion and function. Therapeutic exercise to improve strength and flexibility. Neuromuscular re-education for posture and balance. Therapeutic activities to return to functional activities of daily living. Electronically signed by: Dashawn Alcocer PT. Please sign and return to therapist. Thank you for your referral.
--- NOTE | 2023-08-07 13:46 | MHC.PT.DC ---
[facility] [place] Office [place] Office [place] Office [address] Lisa Allen [address] [phone] F: [phone] F: [phone] F: [phone] F: [phone] Physical Therapy Discharge Report Diagnosis: - Primary osteoarthritis, unspecified shoulder, - Unspecified dislocation of right shoulder joint Date of Surgery: Date of Evaluation: 07/09/23 Date of Discharge: 08/07/23 Treatments to Date: 7 Cancellations to Date: 2 No Shows to Date: Discharge Status: Improved Function Independent with HEP Patient Elected to Stop Discharge Summary: . Electronically signed by: Dashawn Alcocer PT. Please sign and return to therapist. Thank you for your referral.
== END 2023-08-07 13:46 | disposition home or self-care (01) ==
LOC: HO.PT 10:00
PROVIDERS: PCP Family Medicine; Visit Provider Orthopaedic Surgery
DX: S43.004A Unspecified dislocation of right shoulder joint, initial encounter (principal); M19.011 Primary osteoarthritis, right shoulder
CPT/HCPCS: 97110; 97161

== ENCOUNTER 2023-08-10 21:09 | Emergency (ER) | payer OTHER, SELFPAY ==
--- NOTE | ~2023-08-10 | XR_ITS ---
EXAMINATION: XR CHEST CLINICAL INFORMATION: Cough. Low-grade fever. COMPARISON: Chest radiograph dated 01/03/2023. TECHNIQUE: Frontal view of the chest was obtained. FINDINGS: The cardiac silhouette is normal in size. There is calcific atherosclerotic disease of the aorta. The lungs are clear. No pleural effusion. No pneumothorax. No acute osseous abnormality. There are degenerative changes of the glenohumeral joints. XR/XR chest 1V IMPRESSION: No acute cardiopulmonary disease. Stable appearance of the heart and lungs.
[2023-08-10 21:17] VITALS: BP 140/70; PULSE 90; O2SAT 98
[2023-08-10 21:20] VITALS: BP 127/62; PULSE 95; RESP 20; TEMP 38; O2SAT 96; BMI 32.0
--- NOTE | 2023-08-10 21:30 | ECG_ITS ---
Test Reason : WEAKNESS Blood Pressure : / mmHG Vent. Rate : 086 BPM Atrial Rate : 086 BPM P-R Int : 172 ms QRS Dur : 088 ms QT Int : 362 ms P-R-T Axes : 058 -34 018 degrees QTc Int : 433 ms Normal sinus rhythm Left axis deviation Minimal voltage criteria for LVH, may be normal variant ( [place] product ) Inferior infarct , age undetermined Abnormal ECG No significant changes when compared with the previous EKG of 03 jan 2023 Referred By: Alessia Lr Electronically Signed By:CAMI AMARAL
--- NOTE | 2023-08-10 21:31 | ED_ITS ---
HPI - General Adult General Chief complaint: Upper Respiratory Symptoms Stated complaint: chills,headache Time Seen by Provider: 08/10/23 21:23 Source: patient Mode of arrival: ambulatory Limitations: no limitations History of Present Illness ED Provider: Dr. Alessia Lr HPI narrative: Patient comes to the emergency room complaining of feeling weak, a few days of coughing, having chills, sore throat, tingling sensation. 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 patient denies difficulty breathing, no chest pain, does not feel short of breath, no recent vomiting or diarrhea or abdominal pain, no UTI symptoms. 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 field account manager Related Data Home Medications ?Medication ?Instructions ?Recorded ?Confirmed clonidine 0.1 mg/24 hr weekly 1 patch topical QWEEK 12/30/19 06/18/23 transdermal patch lancets ([employer] UltraSoft #100 ea 01/06/20 03/01/23 Lancets) pen needle, diabetic 32 gauge x #50 ea 08/17/20 03/01/23 simethicone 125 mg capsule (Gas 0 mg PO 11/26/20 06/18/23 Relief Extra Strength) spironolactone 25 mg tablet 25 mg PO DAILY 11/26/20 06/18/23 latanoprost 0.005 % eye drops 1 drp ophthalmic (eye) BEDTIME 07/26/22 06/18/23 pioglitazone 45 mg tablet 45 mg PO DAILY 11/21/22 06/18/23 carvedilol 3.125 mg tablet 3.125 mg PO BID 06/18/23 06/18/23 rosuvastatin 40 mg tablet 40 mg PO DAILY 06/18/23 06/18/23 sertraline 25 mg tablet 50 mg PO DAILY 06/18/23 06/18/23 sertraline 50 mg tablet 50 mg PO DAILY 06/18/23 06/18/23 aspirin 81 mg tablet,delayed 81 mg PO DAILY 06/28/23 release Previous Rx's ?Medication ?Instructions ?Recorded insulin glargine 100 unit/mL (3 35 unit (0.35 mL) subcut DAILY 30 12/18/19 mL) subcutaneous pen (Lantus days #10.5 mL Solostar U-100 Insulin) blood sugar diagnostic (AivoTouch #100 ea 01/07/20 Verio test strips) blood-glucose meter (OneTouch #1 ea 01/07/20 Verio Meter) mirabegron 25 mg tablet,extended 25 mg PO DAILY 30 days #30 tabs 10/28/20 release 24 hr (Myrbetriq) azelastine 137 mcg (0.1 %) nasal 2 spray intranasal BID 30 days #30 01/19/21 spray aerosol mL inhalational spacing device #1 ea 01/25/21 (Aerochamber MV spacer) albuterol sulfate 90 mcg/actuation 2 puff PO Q4H PRN for wheezing 30 11/21/22 aerosol inhaler (Ventolin HFA) days #18 ea budesonide 32 mcg/actuation nasal 2 spray intranasal DAILY 30 days 11/21/22 spray #8.43 mL fluticasone propionate 115 2 puff inhalation Q12H 30 days #12 11/21/22 mcg-salmeterol 21 mcg/actuation grams HFA inhaler (Advair HFA) linaclotide 72 mcg capsule 72 mcg PO QAM 30 days #30 caps 03/01/23 (Linzess) ipratropium 0.5 mg-albuterol 3 mg 3 ml inhalation Q6H PRN for 03/30/23 (2.5 mg base)/3 mL nebulization wheezing #180 mL soln budesonide 0.5 mg/2 mL suspension 0.5 mg (2 mL) inhalation BID 30 05/21/23 for nebulization days #120 mL acetaminophen 500 mg tablet 500 mg PO Q6H PRN fever or pain 08/10/23 #14 tabs Allergies Allergy/AdvReac Type Severity Reaction Status Date / Time fluticasone [Flovent HFA] Allergy Unknown lip Verified 08/10/23 21:21 swelling lisinopril Allergy Itching Verified 08/10/23 21:21 umeclidinium AdvReac Intermediate Chest Pain Verified 08/10/23 21:21 [From Incruse Ellipta] empagliflozin [Jardiance] AdvReac Unknown vaginal Verified 08/10/23 21:21 itch metformin AdvReac Unknown stomach Verified 08/10/23 21:21 pain sitagliptin [Januvia] AdvReac Unknown stomach Verified 08/10/23 21:21 pain acetaminophen [From Percocet] AdvReac Nausea and Verified 08/10/23 21:21 Vomiting hydrocodone [From Vicodin] AdvReac Nausea and Verified 08/10/23 21:21 Vomiting ibuprofen [From Motrin] AdvReac Stomach Verified 08/10/23 21:21 Upset oxycodone [From Percocet] AdvReac Nausea and Verified 08/10/23 21:21 Vomiting Review of Systems 2 Review of Systems: Constitutional : No Weight loss, No Fever, No Chills, No Night Sweats, complaining of generalized malaise ENT/Mouth : No Hearing loss, No Ear Pain, No Nasal Congestion, No Sinus Pain, No Hoarseness, complaining of mild sore throat, slight ticklish sensation in the throat, No Rhinorrhea, No Swallowing Difficulty Eyes: No Eye Pain, No Swelling, No Redness, No Foreign Body, No Discharge, No Vision Changes Cardiovascular : No Chest Pain, No SOB, No Dyspnea on Exertion, No Orthopnea, No Edema, No Palpitations Respiratory : Complaining of cough, no shortness of breath Gastrointestinal : No Nausea, No Vomiting, No Diarrhea, No Constipation, No abdominal Pain, No Hematochezia, No Melena Genitourinary : no irregular bleeding, No Dysuria, No Urinary Frequency, No Hematuria, No Urinary Incontinence, No Urgency, No Flank Pain, No Urinary Flow Changes, No Hesitancy Musculoskeletal : No joint pain, No Myalgias, No Joint Swelling Skin : No Skin Lesions, No rash Neuro : No Weakness, No Numbness, No Paresthesias, No Loss of Consciousness, No Dizziness, No Headache Psych : No Anxiety/Panic, No Depression, No SI/HI/AH/VH, No Social Issues, Heme/Lymph: No Bruising, No Bleeding,No Lymphadenopathy Endocrine : No Polyuria, No Polydipsia, No Temperature Intolerance PMFSH Past Medical History Medical History Dysphagia Tracheobronchomalacia ROXIE (obstructive sleep apnea) Essential hypertension Atherosclerotic cardiovascular disease Urinary incontinence Obese Dyslipidemia Anxiety and depression Gastric pain Sinusitis Chronic allergic rhinitis Asthma Cough Cough Diabetes mellitus Fibromyalgia Pulmonary nodules Surgical History H/O heart artery stent Hx of esophagogastroduodenoscopy History of bronchoscopy Hx of colonoscopy H/O left knee surgery H/O breast biopsy H/O: hysterectomy Family History Family History Father Hypertension Mother Hypertension Diabetes Daughter Diabetes Brother No problems noted. Social History Social History Household Members: Children Alcohol intake: former Patient Tobacco Use Status: Never used Tobacco Smoked in Last 30 Days: No Second Hand Smoke Exposure: Yes Use of substances other than those prescribed or required for medical reasons: No Advance Directives: No Advance Directives Information Provided: No Physical Exam ED Vital Signs: Vital Signs - 24 hr 08/10/23 21:20 Temperature 100.4 F Pulse Rate 95 Respiratory Rate 20 Blood Pressure 127/62 Pulse Oximetry 96 Oxygen Delivery Method Room Air BMI result Body Mass Index 32.0 Const Other: Appearance: Alert. Oriented X3. No acute distress. Well-appearing Eyes: Pupils equal, round and reactive to light. ENT: Pharynx normal. Neck: Normal inspection. Neck supple. No lymph nodes noted. No crepitus CVS: Normal heart rate and rhythm. Pulses normal. Normal S1 and S2 Respiratory: No respiratory distress. Breath sounds normal. No Wheezing. No rales Abdomen: Soft and nontender. No rigidity. No distention. Skin: Skin warm and dry. Normal skin color. Normal skin turgor. Extremities: No lower extremity edema. No Lacerations. No Rash Neuro: Oriented X 3. No motor deficit. No sensory deficit. Moving all extremities. No slurred speech. CN 2 through 12 grossly intact Psych: calm, cooperative, normal affect Medical Decision Making Medical Decision Making [facility] Narrative: -my interpretation of labs, no significant abnormality in hematology and chemistry, serology tests positive for COVID -chest x-ray, no infiltrates -patient's vital stable, oxygen saturation 96%, no desaturation given walking around her room. Denies dizziness, no chest pain or shortness of breath. Patient feels well to go home. -discussed with the patient starting PAxlovid, patient declined, would like to treat symptomatically at home with Tylenol Motrin. Differential Diagnosis Differential Diagnoses: The differential diagnosis associated with the presentation includes (COVID, URI, influenza, viral URI) Lab Data [facility] Lab Attestation statement: I reviewed the patient's lab results. 08/10/23 22:07 08/10/23 22:07 Labs: Lab Results 08/10/23 08/10/23 Range/Units 21:31 22:07 WBC 7.3 (4.8-10.8) X10*3/uL RBC 4.10 L (4.20-5.50) X10*6/uL Hgb 12.8 (12.0-16.0) g/dl Hct 36.7 L (37.0-47.0) % MCV 89.5 (80.0-98.0) fL MCH 31.2 (27.0-33.0) pg MCHC 34.9 (31.0-35.0) g/dl RDW 12.8 (11.0-16.0) % Plt Count 146 L (160-400) X10*3/uL MPV 10.7 (9.4-12.3) fL Immature Gran % (Auto) 0.4 (0.0-0.4) % Neut % (Auto) 77.8 H (45-73) % Lymph % (Auto) 5.7 L (20-40) % [place] % (Auto) 14.6 H (2-11) % Eos % (Auto) 1.1 (0-4) % Baso % (Auto) 0.4 (0-2) % Lymph # (Auto) 0.4 L (1.2-4.9) X10*3/uL [place] # (Auto) 1.1 (0.1-1.2) X10*3/uL Eos # (Auto) 0.1 (0.0-0.4) X10*3/uL Baso # (Auto) 0.0 (0.0-0.2) X10*3/uL Abs Immat Gran (auto) 0.03 (0.00-0.03) X10*3/uL Absolute Neuts (auto) 5.7 (2.0-8.3) x10*3/uL Absolute Nucleated RBC 0.000 (0.0-0.012) X10*3/uL Nucleated RBC % (auto) 0.0 (0.0-0.2) /100WBC Sodium 135 (135-145) mmol/L Potassium 4.5 (3.3-5.1) mmol/L Chloride 101 (96-108) mmol/L Carbon Dioxide 25 (22-29) mmol/L Anion Gap 14 (12-20) BUN 25 H (9-16) mg/dL Creatinine 1.06 (0.5-1.4) mg/dL Estim Creat Clear Calc 35.0 Estimated GFR 50 Random Glucose 223 H (60-115) mg/dL Calcium 9.2 (8.4-10.2) mg/dL Total Bilirubin 0.3 (0.0-1.0) mg/dL Direct Bilirubin 0.1 (0.0-0.5) mg/dL AST 19 (5-31) U/L ALT 22 (0-31) U/L Alkaline Phosphatase 50 (39-117) U/L Total Protein 6.7 (6.5-8.0) g/dL Albumin 3.9 (3.5-5.0) g/dL Influenza Type A (PCR) NEGATIVE (Negative) Influenza Type B (PCR) NEGATIVE (Negative) RSV RNA Qual (PCR) NEGATIVE (Negative) SARS-CoV-2 RNA (RT-PCR) POSITIVE A (Negative) S. pyogenes GrpA IVY Negative (Negative) Independent Interpretation I performed an independent interpretation of an: Plain X-Ray Radiology Impression Discussion of test interpretation with radiology: I have reviewed the radiologist's reading. Radiologist Impression: The cardiac silhouette is normal in size. There is calcific atherosclerotic disease of the aorta. The lungs are clear. No pleural effusion. No pneumothorax. No acute osseous abnormality. There are degenerative changes of the glenohumeral joints. XR/XR chest 1V IMPRESSION: No acute cardiopulmonary disease. Stable appearance of the heart and lungs. Discharge Plan Discharge Clinical Impression: COVID-19 Patient Disposition: Home, Self-Care Instructions: COVID-19 (Coronavirus Disease 2019) (ED) Additional Instructions: Please follow-up with your primary care physician tomorrow. If you have any worsening or new symptoms, please return to the emergency room or call 911 Prescriptions: New acetaminophen 500 mg tablet 500 mg PO Q6H PRN (Reason: fever or pain) Qty: 14 0RF No Action (DME) lancets [OneTouch UltraSoft Lancets] Misc See Rx Instructions .ROUTE .MEDSUPPLY Qty: 100 Rx Instructions: As directed (DME) blood-glucose meter [OneTouch Verio Meter] [facility] See Rx Instructions .ROUTE .MEDSUPPLY Qty: 1 0RF Rx Instructions: As directed (DME) OneTouch Verio test strips Strip See Rx Instructions .ROUTE .MEDSUPPLY Qty: 100 0RF Rx Instructions: As directed Myrbetriq 25 mg tablet extended release 24 hr 25 mg PO DAILY 30 Days Qty: 30 1RF (DME) Aerochamber MV Spacer See Rx Instructions .ROUTE .MEDSUPPLY Qty: 1 0RF Rx Instructions: As directed ipratropium-albuterol 0.5 mg-3 mg(2.5 mg base)/3 mL solution for nebulization 3 ml inhalation Q6H PRN (Reason: for wheezing) Qty: 180 2RF Lantus Solostar U-100 Insulin 100 unit/mL (3 mL) insulin pen 35 unit subcut DAILY 30 Days Qty: 10.5 11RF clonidine 0.1 mg/24 hr patch weekly 1 patch topical QWEEK simethicone [Gas Relief Extra Strength] 125 mg capsule 0 mg PO spironolactone 25 mg tablet 25 mg PO DAILY sertraline 25 mg tablet 50 mg PO DAILY (DME) pen needle, diabetic 32 gauge x 5/32 needle See Rx Instructions .ROUTE .MEDSUPPLY Qty: 50 Rx Instructions: As directed azelastine 137 mcg (0.1 %) aerosol,spray 2 spray intranasal BID 30 Days Qty: 30 6RF Rx Instructions: administer into each nostril pioglitazone 45 mg tablet 45 mg PO DAILY fluticasone propion-salmeterol [Advair HFA] 115-21 mcg/actuation HFA aerosol inhaler 2 puff inhalation Q12H 30 Days Qty: 12 11RF albuterol sulfate [Ventolin HFA] 90 mcg/actuation HFA aerosol inhaler 2 puff PO Q4H PRN (Reason: for wheezing) 30 Days Qty: 18 6RF budesonide 32 mcg/actuation spray,non-aerosol 2 spray intranasal DAILY 30 Days Qty: 8.43 7RF Rx Instructions: administer into each nostril budesonide 0.5 mg/2 mL suspension for nebulization 0.5 mg inhalation BID 30 Days Qty: 120 11RF aspirin 81 mg tablet,delayed release (DR/EC) 81 mg PO DAILY latanoprost 0.005 % drops 1 drp ophthalmic (eye) BEDTIME Linzess 72 mcg capsule 72 mcg PO QAM 30 Days Qty: 30 3RF carvedilol 3.125 mg tablet 3.125 mg PO BID rosuvastatin 40 mg tablet 40 mg PO DAILY sertraline 50 mg tablet 50 mg PO DAILY Print Language: Yi
[2023-08-10 21:49] LABS: IDNOW Serial# 08D9AD1C; Strep A Nucleic Acid Negative (Negative)
[2023-08-10 22:11] LABS: MANUAL DIFF FLAG NO
[2023-08-10 22:13] LABS: Influenza A PCR NEGATIVE (Negative); Influenza B PCR NEGATIVE (Negative); Resp Syncy Virus RNA Qual PCR NEGATIVE (Negative); SARS COV2 PCR INHOUSE POSITIVE (Negative)
[2023-08-10 22:13] LABS: Basophils Percent Auto 0.4 % (0-2); Eosinophils Absolute Auto 0.1 X10*3/uL (0.0-0.4); Eosinophils Percent Auto 1.1 % (0-4); Hematocrit 36.7 % (37.0-47.0); Hemoglobin 12.8 g/dl (12.0-16.0); Imm Gran Abs Auto 0.03 X10*3/uL (0.00-0.03); Imm Gran Pct Auto 0.4 % (0.0-0.4); Lymphocytes Absolute Auto 0.4 X10*3/uL (1.2-4.9); Lymphocytes Percent Auto 5.7 % (20-40); Mean Corpuscular HGB Conc 34.9 g/dl (31.0-35.0); Mean Corpuscular Hemoglobin 31.2 pg (27.0-33.0); Mean Corpuscular Volume 89.5 fL (80.0-98.0); Mean Platelet Volume 10.7 fL (9.4-12.3); Monocytes Absolute Auto 1.1 X10*3/uL (0.1-1.2); Monocytes Percent Auto 14.6 % (2-11); Neutrophils Absolute Auto 5.7 x10*3/uL (2.0-8.3); Neutrophils Percent Auto 77.8 % (45-73); Platelet Count 146 X10*3/uL (160-400); Red Cell Distribution Width 12.8 % (11.0-16.0); White Blood Count 7.3 X10*3/uL (4.8-10.8)
[2023-08-10 22:28] LABS: Alanine Aminotransferase 22 U/L (0-31); Albumin Level 3.9 g/dL (3.5-5.0); Alkaline Phosphatase 50 U/L (39-117); Anion Gap 14 (12-20); Aspartate Amino Transferase 19 U/L (5-31); Bilirubin Direct 0.1 mg/dL (0.0-0.5); Bilirubin Total 0.3 mg/dL (0.0-1.0); Blood Urea Nitrogen 25 mg/dL (9-16); Calcium 9.2 mg/dL (8.4-10.2); Carbon Dioxide 25 mmol/L (22-29); Chloride 101 mmol/L (96-108); Estimated Glomerular Filt Rate 50; Glucose Random 223 mg/dL (60-115); Potassium 4.5 mmol/L (3.3-5.1); Sodium 135 mmol/L (135-145); Total Protein 6.7 g/dL (6.5-8.0)
--- NOTE | 2023-08-10 23:40 | PC.NURSE ---
This nurse only reviewed discharge instructions with pt. Pt verbalized understanding no sign of distress. pt wheeled out to son car.
[2023-08-10 23:42] VITALS: BP 100/47; PULSE 91; RESP 20; TEMP 37.6; O2SAT 99
--- NOTE | 2023-08-10 23:43 | PC.NURSE ---
blood pressure 100/47 Dr. Lr aware.
== END 2023-08-10 23:44 | disposition home or self-care (01) ==
PROVIDERS: Emergency Provider Emergency Medicine; PCP Family Medicine
DX: U07.1 COVID-19 (principal); R68.83 Chills (without fever); R05.9 Cough, unspecified; R51.9 Headache, unspecified; R94.31 Abnormal electrocardiogram [ECG] [EKG]; Z79.899 Other long term (current) drug therapy
CPT/HCPCS: 0241U; 36415; 71045; 80048; 80076; 85025; 87651; 93005; 99283; 99284

== ENCOUNTER → 2023-08-10 21:30 | Outpatient (BNV) | payer OTHER, SELFPAY | PROVIDERS: Emergency Provider Emergency Medicine; PCP Family Medicine; Visit Provider Internal Medicine | DX: R94.31 Abnormal electrocardiogram [ECG] [EKG] (principal); R06.09 Other forms of dyspnea | CPT/HCPCS: 93010 ==

== ENCOUNTER 2023-08-15 23:23 | Emergency (ER) | payer OTHER, SELFPAY ==
--- NOTE | 2023-08-15 | ECG_ITS ---
Test Reason : DYPNEA Blood Pressure : / mmHG Vent. Rate : 060 BPM Atrial Rate : 060 BPM P-R Int : 170 ms QRS Dur : 092 ms QT Int : 422 ms P-R-T Axes : 043 -26 000 degrees QTc Int : 422 ms Normal sinus rhythm Inferior infarct (cited on or before 19-AUG-2022) Abnormal ECG When compared with ECG of 10-AUG-2023 21:52, No significant change was found Referred By: Generic ED Physician Electronically Signed By:Ray May
--- NOTE | ~2023-08-15 | XR_ITS ---
EXAMINATION: XR CHEST CLINICAL INFORMATION: Cough. COMPARISON: 08/10/2023 TECHNIQUE: Frontal view of the chest was obtained. FINDINGS: No significant abnormality is noted involving the heart, lungs, mediastinum, bony thorax or soft tissues. XR/XR chest 1V IMPRESSION: No active cardiopulmonary disease
[2023-08-15 23:27] VITALS: BP 162/58; BP 164/50; PULSE 78; PULSE 92; RESP 14; TEMP 37.2; O2SAT 100; O2SAT 99; BMI 32.0
[2023-08-16 00:09] LABS: COVID-19 Test Positive (Negative); IDNOW Serial# 152EDE1D
[2023-08-16 00:15] LABS: IDNOW Serial# 08D9AD1C; Influenza A Negative (Negative); Influenza B2 Negative (Negative)
[2023-08-16] MEDS: Benzonatate 100 MG CAPSULE 200 MG PO (00:42)
--- NOTE | 2023-08-16 00:44 | PC.NURSE ---
Pt ca&ox4, no signs of distress. Pt medicated per mar. Plan of care ongoing.
[2023-08-16 01:26] VITALS: BP 155/49; PULSE 57; RESP 12; TEMP 36.7; O2SAT 97
--- NOTE | 2023-08-16 01:30 | ED_ITS ---
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 Related Data Home Medications ?Medication ?Instructions ?Recorded ?Confirmed clonidine 0.1 mg/24 hr weekly 1 patch topical QWEEK 12/30/19 06/18/23 transdermal patch lancets (i7 NetworksTouch UltraSoft #100 ea 01/06/20 03/01/23 Lancets) pen needle, diabetic 32 gauge x #50 ea 08/17/20 03/01/23 simethicone 125 mg capsule (Gas 0 mg PO 11/26/20 06/18/23 Relief Extra Strength) spironolactone 25 mg tablet 25 mg PO DAILY 11/26/20 06/18/23 latanoprost 0.005 % eye drops 1 drp ophthalmic (eye) BEDTIME 07/26/22 06/18/23 pioglitazone 45 mg tablet 45 mg PO DAILY 11/21/22 06/18/23 carvedilol 3.125 mg tablet 3.125 mg PO BID 06/18/23 06/18/23 rosuvastatin 40 mg tablet 40 mg PO DAILY 06/18/23 06/18/23 sertraline 25 mg tablet 50 mg PO DAILY 06/18/23 06/18/23 sertraline 50 mg tablet 50 mg PO DAILY 06/18/23 06/18/23 aspirin 81 mg tablet,delayed 81 mg PO DAILY 06/28/23 release Previous Rx's ?Medication ?Instructions ?Recorded insulin glargine 100 unit/mL (3 35 unit (0.35 mL) subcut DAILY 30 12/18/19 mL) subcutaneous pen (Lantus days #10.5 mL Solostar U-100 Insulin) blood sugar diagnostic (OneTouch #100 ea 01/07/20 Verio test strips) blood-glucose meter (i7 NetworksTouch #1 ea 01/07/20 Verio Meter) mirabegron 25 mg tablet,extended 25 mg PO DAILY 30 days #30 tabs 10/28/20 release 24 hr (Myrbetriq) azelastine 137 mcg (0.1 %) nasal 2 spray intranasal BID 30 days #30 01/19/21 spray aerosol mL inhalational spacing device #1 ea 01/25/21 (Aerochamber MV spacer) albuterol sulfate 90 mcg/actuation 2 puff PO Q4H PRN for wheezing 30 11/21/22 aerosol inhaler (Ventolin HFA) days #18 ea budesonide 32 mcg/actuation nasal 2 spray intranasal DAILY 30 days 11/21/22 spray #8.43 mL fluticasone propionate 115 2 puff inhalation Q12H 30 days #12 11/21/22 mcg-salmeterol 21 mcg/actuation grams HFA inhaler (Advair HFA) linaclotide 72 mcg capsule 72 mcg PO QAM 30 days #30 caps 03/01/23 (Linzess) ipratropium 0.5 mg-albuterol 3 mg 3 ml inhalation Q6H PRN for 03/30/23 (2.5 mg base)/3 mL nebulization wheezing #180 mL soln budesonide 0.5 mg/2 mL suspension 0.5 mg (2 mL) inhalation BID 30 05/21/23 for nebulization days #120 mL acetaminophen 500 mg tablet 500 mg PO Q6H PRN fever or pain 08/10/23 #14 tabs benzonatate 200 mg capsule 200 mg PO TID PRN cough #10 caps 08/16/23 Allergies Allergy/AdvReac Type Severity Reaction Status Date / Time fluticasone [Flovent HFA] Allergy Unknown lip Verified 08/15/23 23:36 swelling lisinopril Allergy Itching Verified 08/15/23 23:36 umeclidinium AdvReac Intermediate Chest Pain Verified 08/15/23 23:36 [From Incruse Ellipta] empagliflozin [Jardiance] AdvReac Unknown vaginal Verified 08/15/23 23:36 itch metformin AdvReac Unknown stomach Verified 08/15/23 23:36 pain sitagliptin [Januvia] AdvReac Unknown stomach Verified 08/15/23 23:36 pain acetaminophen [From Percocet] AdvReac Nausea and Verified 08/15/23 23:36 Vomiting hydrocodone [From Vicodin] AdvReac Nausea and Verified 08/15/23 23:36 Vomiting ibuprofen [From Motrin] AdvReac Stomach Verified 08/15/23 23:36 Upset oxycodone [From Percocet] AdvReac Nausea and Verified 08/15/23 23:36 Vomiting Review of Systems Review of Systems: Pertinent positives and negatives as stated in [facility] Past Medical History Source: nursing notes reviewed Medical History Dysphagia Tracheobronchomalacia ROXIE (obstructive sleep apnea) Essential hypertension Atherosclerotic cardiovascular disease Urinary incontinence Obese Dyslipidemia Anxiety and depression Gastric pain Sinusitis Chronic allergic rhinitis Asthma Cough Cough Diabetes mellitus Fibromyalgia Pulmonary nodules Surgical History H/O heart artery stent Hx of esophagogastroduodenoscopy History of bronchoscopy Hx of colonoscopy H/O left knee surgery H/O breast biopsy H/O: hysterectomy Family History Family History Father Hypertension Mother Hypertension Diabetes Daughter Diabetes Brother No problems noted. Social History Social History Household Members: Children Alcohol intake: former Patient Tobacco Use Status: Never used Tobacco Second Hand Smoke Exposure: Yes Advance Directives: No Advance Directives Information Provided: No Physical Exam ED Vital Signs: Vital Signs - 24 hr 08/15/23 23:27 08/16/23 01:26 Temperature 98.9 F 98.0 F Pulse Rate 92 57 Respiratory Rate 14 12 Blood Pressure 164/50 H 155/49 H Pulse Oximetry 99 97 Oxygen Delivery Method Room Air Room Air BMI result Body Mass Index 32.0 VITAL SIGNS: Reviewed. GENERAL: Well developed, well nourished, in no acute distress. HEAD: Normocephalic/atraumatic EYES: PERRLA, EOMI EARS: Ext canals without abnormality NOSE: Nares patent bilateral OROPHARYNX: no oral lesions noted, posterior pharynx clear NECK: Supple, no adenopathy LUNGS: Normal breath sounds, rhonchi noted without wheeze, no tachypnea or increased work of breathing. SpO2<97> CARDIOVASCULAR: Regular rate and rhythm without noted murmurs ABDOMEN: Soft, non-tender, non-distended with bowel sounds. MUSCULOSKELETAL: No tenderness, deformities, or effusions noted on gross inspection. EXTREMITIES: No cyanosis, clubbing or edema. SKIN: Inspection of the skin reveals no rashes NEUROLOGIC: Alert and oriented x 4. Strength and sensation to light touch were grossly intact x 4. Medications Administered Discontinued Medications Generic Name Dose Route Start Last Admin Trade Name Freq PRN Reason Stop Dose Admin Benzonatate 200 mg 08/16/23 00:38 08/16/23 00:42 Benzonatate 100 Mg Capsule PO 08/16/23 00:39 200 mg ONCE ONE Administration Medical Decision Making Medical Decision Making MDM Narrative: 77-year-old female who continues to test positive for COVID-19, provided with Tessalon for cough control, chest x-ray obtained today negative for infiltrate or venous congestion. Patient continues to oxygenating well on room air without evidence of increased work of breathing or tachypnea. She was reassured and will be discharged with prescription for Tessalon and instructions follow-up with your primary care doctor. Differential Diagnosis Differential Diagnoses: The differential diagnosis associated with the presentation includes Please see the discussion above Admission/Observation Consideration of admission/observation: Escalation of care including admission/observation considered Please see the discussion above Lab Data [facility] Lab Attestation statement: I reviewed the patient's lab results. Please see the discussion above Labs: Lab Results 08/15/23 Range/Units 23:54 COVID-19 (YAHIR) Positive A (Negative) COVID-19 Clin Com See Note Influenza Type A (IVY) Negative (Negative) Influenza Type B (IVY) Negative (Negative) Influenza A & B Note See Note Independent Interpretation I performed an independent interpretation of an: EKG Interpretation: Normal sinus rhythm, HR -60, no STEMI, [place]/QRS/QTC is within normal limits. Radiology Impression Discussion of test interpretation with radiology: I have reviewed the radiologist's reading. Radiologist Impression: Please see the discussion above External Record Review External record reviewed: Outpatient record and Prior outpatient labs Critical Care Time Critical Care Time Critical Care Time: Yes Total Critical Care Time: 30 Attestation: I personally attest to this time spent taking care of the patient. Discharge Plan Discharge Clinical Impression: Acute viral bronchitis, Cough Patient Disposition: Home, Self-Care Instructions: Acute Bronchitis (ED), Chronic Cough (ED) Additional Instructions: Follow-up with your primary care doctor. Prescriptions: New benzonatate 200 mg capsule 200 mg PO TID PRN (Reason: cough) Qty: 10 0RF No Action (DME) lancets [OneTouch UltraSoft Lancets] [facility] See Rx Instructions .ROUTE .MEDSUPPLY Qty: 100 Rx Instructions: As directed (DME) blood-glucose meter [OneTouch Verio Meter] [facility] See Rx Instructions .ROUTE .MEDSUPPLY Qty: 1 0RF Rx Instructions: As directed (DME) OneTouch Verio test strips Strip See Rx Instructions .ROUTE .MEDSUPPLY Qty: 100 0RF Rx Instructions: As directed Myrbetriq 25 mg tablet extended release 24 hr 25 mg PO DAILY 30 Days Qty: 30 1RF (DME) Aerochamber MV Spacer See Rx Instructions .ROUTE .MEDSUPPLY Qty: 1 0RF Rx Instructions: As directed ipratropium-albuterol 0.5 mg-3 mg(2.5 mg base)/3 mL solution for nebulization 3 ml inhalation Q6H PRN (Reason: for wheezing) Qty: 180 2RF acetaminophen 500 mg tablet 500 mg PO Q6H PRN (Reason: fever or pain) Qty: 14 0RF Lantus Solostar U-100 Insulin 100 unit/mL (3 mL) insulin pen 35 unit subcut DAILY 30 Days Qty: 10.5 11RF clonidine 0.1 mg/24 hr patch weekly 1 patch topical QWEEK simethicone [Gas Relief Extra Strength] 125 mg capsule 0 mg PO spironolactone 25 mg tablet 25 mg PO DAILY sertraline 25 mg tablet 50 mg PO DAILY (DME) pen needle, diabetic 32 gauge x 5/32 needle See Rx Instructions .ROUTE .MEDSUPPLY Qty: 50 Rx Instructions: As directed azelastine 137 mcg (0.1 %) aerosol,spray 2 spray intranasal BID 30 Days Qty: 30 6RF Rx Instructions: administer into each nostril pioglitazone 45 mg tablet 45 mg PO DAILY fluticasone propion-salmeterol [Advair HFA] 115-21 mcg/actuation HFA aerosol inhaler 2 puff inhalation Q12H 30 Days Qty: 12 11RF albuterol sulfate [Ventolin HFA] 90 mcg/actuation HFA aerosol inhaler 2 puff PO Q4H PRN (Reason: for wheezing) 30 Days Qty: 18 6RF budesonide 32 mcg/actuation spray,non-aerosol 2 spray intranasal DAILY 30 Days Qty: 8.43 7RF Rx Instructions: administer into each nostril budesonide 0.5 mg/2 mL suspension for nebulization 0.5 mg inhalation BID 30 Days Qty: 120 11RF aspirin 81 mg tablet,delayed release (DR/EC) 81 mg PO DAILY latanoprost 0.005 % drops 1 drp ophthalmic (eye) BEDTIME Linzess 72 mcg capsule 72 mcg PO QAM 30 Days Qty: 30 3RF carvedilol 3.125 mg tablet 3.125 mg PO BID rosuvastatin 40 mg tablet 40 mg PO DAILY sertraline 50 mg tablet 50 mg PO DAILY Referrals: Liset Mitchell MD [Primary Care Provider] - Print Language: Greenlandic
[2023-08-16 01:54] VITALS: BP 155/49; PULSE 57; RESP 12; TEMP 36.7; O2SAT 97
== END 2023-08-16 02:24 | disposition home or self-care (01) ==
PROVIDERS: Emergency Provider Student in an Organized Health Care Education/Training Program; PCP Family Medicine
DX: J20.9 Acute bronchitis, unspecified (principal); R05.9 Cough, unspecified; E11.9 Type 2 diabetes mellitus without complications; R06.02 Shortness of breath; Z79.899 Other long term (current) drug therapy; Z79.4 Long term (current) use of insulin; Z11.52 Encounter for screening for COVID-19
CPT/HCPCS: 71045; 87502; 87635; 93005; 99283; 99284

== ENCOUNTER → 2023-08-15 23:49 | Outpatient (BNV) | payer OTHER, SELFPAY | PROVIDERS: Emergency Provider Student in an Organized Health Care Education/Training Program; PCP Family Medicine; Visit Provider Internal Medicine Cardiovascular Disease | DX: R94.31 Abnormal electrocardiogram [ECG] [EKG] (principal); R06.09 Other forms of dyspnea | CPT/HCPCS: 93010 ==

== ENCOUNTER 2023-08-16 11:33 | Outpatient (AMB) | payer OTHER, SELFPAY ==
--- NOTE | 2023-08-16 11:34 | A.OFFVIS_ITS ---
Intake Visit Reasons: Constipation Intake Note: Natali presents via phone call today for a scheduled FUV. PT n/s their visit in May 2023. Pt was rx'd linzess at their last visit. Pt reports that they are still experiencing difficulties with their sx. Pt reports that she would like to explore other medication options as the linzess has not been helping her as much as she would like. Pt reports having severe diarrhea when taking linzess. Pt feels that she is better off not taking the medication and dealing with the constipation rather than take the linzess. Pt reports that milk of magnesium has been helping slightly but has not been fully resolving their sx. Pt has been obtaining this medication OTC. Pt reports that she would like to be rx'd the senna again as that medication had worked the best for managing her sx in the past. Hvac Technician Required: Yes Hvac Technician Name: Bill [id number] Information Interpreted: non-clinical & clinical Allergies fluticasone [Flovent HFA] Allergy (Unknown, Verified 11/03/23 00:02) lip swelling lisinopril Allergy (Verified 11/03/23 00:02) Itching umeclidinium [From Incruse Ellipta] Adverse Reaction (Intermediate, Verified 11/03/23 00:02) Chest Pain empagliflozin [Jardiance] Adverse Reaction (Unknown, Verified 11/03/23 00:02) vaginal itch metformin Adverse Reaction (Unknown, Verified 11/03/23 00:02) stomach pain sitagliptin [Januvia] Adverse Reaction (Unknown, Verified 11/03/23 00:02) stomach pain acetaminophen [From Percocet] Adverse Reaction (Verified 11/03/23 00:02) Nausea and Vomiting hydrocodone [From Vicodin] Adverse Reaction (Verified 11/03/23 00:02) Nausea and Vomiting ibuprofen [From Motrin] Adverse Reaction (Verified 11/03/23 00:02) Stomach Upset oxycodone [From Percocet] Adverse Reaction (Verified 11/03/23 00:02) Nausea and Vomiting Medication List - Last Reconciled 08/16/23 by Luciana Gutierrez MD acetaminophen 500 mg PO Q6H PRN albuterol sulfate 90 mcg/actuation (Ventolin HFA) 2 puffs PO Q4H PRN 30 days aspirin 81 mg PO DAILY azelastine 2 sprays intranasal BID 30 days benzonatate 200 mg PO TID PRN bisoprolol fumarate mg PO blood sugar diagnostic (Rachel Joyce Organic SalonTouch Verio test strips) As directed blood-glucose meter (OneTouch Verio Meter) As directed budesonide 32 mcg/actuation 2 sprays intranasal DAILY 30 days budesonide 0.5 mg (2 mL) inhalation BID 30 days carvedilol 3.125 mg PO BID clonidine 1 patch topical QWEEK fluticasone propion-salmeterol 115-21 mcg/actuation (Advair HFA) 2 puffs inhalation Q12H 30 days fluticasone propionate 50 mcg/actuation sprays intranasal hydrocortisone 2.5% topical inhalational spacing device (Aerochamber MV spacer) As directed insulin glargine (Lantus Solostar U-100 Insulin) 35 units (0.35 mL) subcut DAILY 30 days ipratropium bromide intranasal ipratropium-albuterol 0.5 mg-3 mg(2.5 mg base)/3 mL 3 mL inhalation Q6H PRN lancets (Rachel Joyce Organic SalonTouch UltraSoft Lancets) As directed latanoprost 0.005% 1 drp ophthalmic (eye) BEDTIME mirabegron ER (Myrbetriq) 25 mg PO DAILY 30 days pen needle, diabetic As directed pioglitazone 45 mg PO DAILY rosuvastatin 40 mg PO DAILY sertraline 50 mg PO DAILY sertraline 50 mg PO DAILY simethicone (Gas Relief Extra Strength) 0 mg PO spironolactone 25 mg PO DAILY HPI HPI Constipation: Details: GI CLINIC VISIT FOR THIS 77-YEAR-OLD [place]-SPEAKING FEMALE FOR FOLLOW-UP OF NAUSEA, DYSPHAGIA, UPPER ABDOMINAL PAIN AND CONSTIPATION Patient returns after a hiatus of 2 years (last seen in 2020) ? CHRONIC ILLNESSES:?asthma, hypertension, hypercholesterolemia, glaucoma, type 2 diabetes, sleep apnea. ? LABS IN [facility]: 09/02/19 Normal CBC and chem panel, ESR 25 ? 09/13 stool test was negative for H pylori antigen ?IMAGING STUDIES: ? 12/27/[address] scan was negative ? 02/13 gastric Emptying Study showed: ? Retention in the stomach at each time interval was: ? 1 hour 82% (normal 37%-90%) ? 2 hours 67% (normal 30%-60%) ? 3 hours 51% ? 4 hours 23% (normal 0%-10%) ?12/19/18 Abd US showed: ? IMPRESSION: ? There is generalized increase in hepatic echotexture, consistent with ? fatty infiltration or hepatocellular disease. Please correlate ? clinically. No focal hepatic mass or intrahepatic biliary dilatation ? is seen. ?ENDOSCOPIC STUDIES: 12/17/18 EGD and Colon showed: ? Esophagus: Tortuous esophagus with increased tertiary contractions without stricture or ring. ? GE junction at 32 cms. Mild focal esophagitis at GE junction. ? Stomach: Moderate diffuse gastric erythema. Biopsies were obtained from the ? antrum and body. Grade 2 flap valve on retroflexed examination of the cardia. ? Two 6-8 mm benign appearing polyp in the gastric body along the lesser curve - ? one polyp removed with a cold biopsy. ? Duodenum: Normal bulb and descending duodenum. Biopsies were obtained from the ? 3rd part of duodenum to check for celiac disease ? Colonoscopy: ? Three diminutive polyps removed. ? Random biopsies were obtained from the colon. ? Moderate to severe diverticulosis seen in the left colon ? Plan: ? Await pathology results ? Continue present medications (Omeprazole at 20 mg PO once daily) ? Patient has an appointment on 12/27/18 in the GI Clinic with Luciana Gutierrez M.D.- ? Repeat Colonoscopy interval based on path results - in 3-5 years if ? polyps are adenomatous and 10 years if polyps are hyperplastic. ? Above findings were reviewed with the patient and relevant handouts ? were provided if indicated. ? BIOPSIES SHOWED: ? A. Small bowel, biopsy: Small bowel mucosa within normal limits; preserved ? villous architecture and no increase in intraepithelial lymphocytes. ? B. Stomach, antrum, biopsy: Gastric antral and body mucosa with mild chronic ? inactive gastritis; negative for Helicobacter pylori, intestinal metaplasia and ? dysplasia. ? C. Stomach, body, biopsy: Gastric body mucosa within normal limits; negative ? for Helicobacter pylori, intestinal metaplasia and dysplasia. ? D. Stomach, polyp, biopsy: Fundic gland polyp; negative for Helicobacter ? pylori, intestinal metaplasia and dysplasia. ? E. Colon, random, biopsy: Colonic mucosa within normal limits; negative for ? active, chronic and microscopic colitis. ? F. Colon, transverse, polyp, polypectomy: Colonic mucosa with a prominent ? lymphoid aggregate; negative for a hyperplastic or neoplastic process. ? G. Rectum, polyp, polypectomy: Hyperplastic polyp. ? TODAY'S VISIT Telephone [employer], Daniela, [id number] Natali presents via phone call today for a scheduled FUV. PT n/s their visit in May 2023. Pt was rx'd linzess at their last visit. Pt reports that they are still experiencing difficulties with their sx. Pt reports that she would like to explore other medication options as the linzess has not been helping her as much as she would like. Pt reports having severe diarrhea when taking linzess. Pt feels that she is better off not taking the medication and dealing with the constipation rather than take the linzess. Pt reports that milk of magnesium has been helping slightly but has not been fully resolving their sx. Pt has been obtaining this medication OTC. Pt reports that she would like to be rx'd the senna again as that medication had worked the best for managing her sx in the past. I am not doing well Diagnosed with COVID infection on 08/10/23 Had to go back to the hospital for cough and diagnosed with bronchitis. Complains of chronic constipation - ? related to medications Able to move her bowels - has a feeling of incomplete evacuation. Fell 1.5 years ago and hit her vagina and anus and saw a Mortgage Coordinator and diagnosed with uterine prolapse She was offered surgery and pt elected to hold off on the surgery PAST VISIT: Patient cc: Constipation, acid reflex come and go, and some abdominal pain and colon discomfort. Complains of a lot of gas - like a storm Has not been taking medications for constipation since it causes diarrhea and advised to take a lower dose. Pt states that she feels like she is going to choke because she has the gastritis. ? sometimes I poop too much and sometimes I cannot poop at all. She gave me the senna but I have not gotten it because she needs to write a letter to the insurance for me to get that. ? Has good days and bad days - still has the gastritis and bloating. When she takes Senna she goes all days long She would like a prescription for a Senna preparation she had used in the past and not the Generic one - she was advised to drop off information about which brand of Senna she wants Has not started taking the new medications yet. ? Complains of nausea and vomiting for the past month ? Feels bloated in her stomach. ? Notes vomiting after immediately after eating ? ? ? Feels acid reflux in her throat. ? ? ? Notes mucous in her stools. ? Had 2 BMs today and feels better after she has a BM. ? Takes Pantoprazole and feels better. ? Constipation is better and having a BM daily. ? Sometimes has a little discomfort in the abdomen which resolves with Omeprazole. ? Continues to have an upset stomach when she takes fatty food. ? Skin is very delicate and gets irritaion with the sun - ? Feels her stomach is getting distended since she started taking Anoro ? Gets nausea sometimes and takes Chamomile tea which makes it better. ? Takes Pantoprazole once a day - took two this morning. ? Takes aspirin daily. ? Has a small BM daily with incomplete evacuation. Intermittent straining with passage of hard stools. ? Diagnosed with DM 10 yrs ago [facility], [facility] Medical History (Reviewed 08/16/23 @ 11:41 by Navin Nuñez [facility] Dysphagia Tracheobronchomalacia ROXIE (obstructive sleep apnea) Essential hypertension Atherosclerotic cardiovascular disease Urinary incontinence Obese Dyslipidemia Anxiety and depression Gastric pain Sinusitis Chronic allergic rhinitis Asthma Cough Cough Diabetes mellitus Fibromyalgia Pulmonary nodules Surgical History H/O heart artery stent Hx of esophagogastroduodenoscopy History of bronchoscopy Hx of colonoscopy H/O left knee surgery H/O breast biopsy H/O: hysterectomy Family History Father Hypertension Mother Hypertension Diabetes Daughter Diabetes Brother No problems noted. Social History Household Members: Children Alcohol intake: never Patient Tobacco Use Status: Never used Tobacco Smoked in Last 30 Days: No Second Hand Smoke Exposure: Yes Use of substances other than those prescribed or required for medical reasons: No Any prior treatment program specific to substance use: No Advance Directives: No Advance Directives Information Provided: Yes Do you have a plan to hurt others: No Plan Review of Systems Const All systems reviewed & are unremarkable except as noted in HPI and below Physical Exam Const Limitations: language barrier Telehealth Telehealth Telehealth Platform: Telephone Location of provider rendering services: practice address Location of patient: address on file Patient Identification confirmed using: Name, : Yes Telehealth method: voice only Patient verbally consented to treatment: Yes Patient verbally consented to billing insurance company: Yes Patient informed of any privacy concerns related to visit: Yes Minutes spent on Phone/Video with Pt.: 18 Assessment & Plan Assessment & Plan (1) Gastritis: Code(s): K29.70 - Gastritis, unspecified, without bleeding Category: Medical (2) Chronic constipation: Code(s): K59.09 - Other constipation Category: Medical (3) Colon cancer screening: Comment: 12/14 COLONOSCOPY SHOWED: Three diminutive/hyperplastic polyps removed and left- sided diverticulosis noted. Random biopsies obtained from the colon were normal. It's unclear if patient has had adenomatous polyps removed during her past colonoscopy. Therefore, repeat colonoscopy is advised in 5 years (due 11/2023) Code(s): Z12.11 - Encounter for screening for malignant neoplasm of colon Category: Medical (4) Gas bloat syndrome: Code(s): K92.89 - Other specified diseases of the digestive system Category: Medical (5) Rectocele with complete uterovaginal prolapse: Code(s): N81.4 - Uterovaginal prolapse, unspecified Category: Medical (6) Dysphagia: Code(s): R13.10 - Dysphagia, unspecified Category: Medical Plan 77 YF with asthma, hypertension, hypercholesterolemia, glaucoma, type 2 diabetes , GERD followed in GI for GERD, Diabetic gastroparesis, nausea and vomiting and chronic constipation. Past EGD showed mild esophagitis and gastritis. Gastric biopsies were negative for Helicobacter pylori. Gastric emptying study confirmed a diagnosis of diabetic gastroparesis. Retention in the stomach at each time interval was: 1 hour 82% (normal 37%-90%) 2 hours 67% (normal 30%-60%) 3 hours 51% 4 hours 23% (normal 0%-10%). Patient was advised to start simethicone for abdominal bloating, mirtazapine for gastroparesis and Linzess for constipation She discontinued Linzess since it was causing diarrhea and is requesting a prescription for Senna Plus - prescription was sent. Patient was advised to resume Linzess at 72 mcg every other day for 1-2 weeks and increase to daily if she continued to have constipation. 03/01/23 Pt was prescribed Linzess 72 mcg daily 08/16/23 Pt advised to take Senna plus 2 tab every other day at bedtime FU appt in 4 months Medications: New sennosides-docusate sodium 8.6-50 mg (Senna with Docusate Sodium) Please take every other day at bedtime 2 tab-caps (2 x 8.6-50 mg) PO BEDTIME PRN 120 tabs 2RF constipation 60 days K59.09 - Other constipation Coding Level of Care Code Tele Est Pt Level 3 (24335) Diagnoses Chronic gastritis without bleeding, unspecified gastritis type K29.70 Chronic constipation K59.09 Colon cancer screening Z12.11 Gas bloat syndrome K92.89 Rectocele with complete uterovaginal prolapse N81.4 Dysphagia R13.10 Time Spent (min) 18
== END 2023-08-16 13:12 | disposition home or self-care (01) ==
LOC: HO.HGI 11:33
PROVIDERS: PCP Family Medicine; Visit Provider Internal Medicine Gastroenterology
DX: K29.70 Gastritis, unspecified, without bleeding (principal); K59.09 Other constipation; Z12.11 Encounter for screening for malignant neoplasm of colon; K92.89 Other specified diseases of the digestive system; N81.4 Uterovaginal prolapse, unspecified; R13.10 Dysphagia, unspecified
CPT/HCPCS: 99442

== ENCOUNTER → 2023-08-16 11:33 | Outpatient (BNVA) | payer OTHER, SELFPAY | PROVIDERS: PCP Family Medicine; Visit Provider Internal Medicine Gastroenterology ==

== ENCOUNTER 2023-08-17 11:13 | Outpatient (REF) | payer OTHER, SELFPAY ==
[2023-08-17 14:20] LABS: Appearance Urine Clear; Color Urine Yellow; Glucose Urine UA Negative (Negative); Leukocyte Esterase Urine Trace (Negative); Nitrite Urine Negative (Negative); PH 5.5 (5.0-9.0); UMIC TRIGGER UACC YES; Urine Blood Negative (Negative); Urine Ketones Negative (Negative); Urine Protein Negative (Neg-Trace)
[2023-08-17 14:35] LABS: Bacteria Urine None Seen (None Seen); Hyaline Casts Urine 0-2 /LPF (0-2); RBC Urine 0-2 /HPF (0-2); WBC Urine 0-5 /HPF (0-5)
== END 2023-08-17 11:14 | disposition home or self-care (01) ==
LOC: HO.CHCLNP 11:13
PROVIDERS: Visit Provider Family Medicine
DX: R30.0 Dysuria (principal)
CPT/HCPCS: 81001

== ENCOUNTER 2023-09-17 09:08 | Outpatient (AMB) | payer OTHER, SELFPAY ==
--- NOTE | 2023-09-17 09:13 | MHC.OFFVIS ---
Vital Signs 09/17/23 09:14 Height 4 ft 9 in Weight 148 lb 12.992 oz BMI 32.2 BP 132/68 Blood Pressure Location Lt brachial Position Sitting Pulse 84 Pulse Source Pulse Oximeter Pulse Oximetry (%) 97 Oxygen Delivery Method Room Air Intake Visit Reasons: FLU Follow up Tax Assistant Required: No Allergies fluticasone [Flovent HFA] Allergy (Unknown, Verified 09/17/23 09:16) lip swelling lisinopril Allergy (Verified 09/17/23 09:16) Itching umeclidinium [From Incruse Ellipta] Adverse Reaction (Intermediate, Verified 09/17/23 09:16) Chest Pain empagliflozin [Jardiance] Adverse Reaction (Unknown, Verified 09/17/23 09:16) vaginal itch metformin Adverse Reaction (Unknown, Verified 09/17/23 09:16) stomach pain sitagliptin [Januvia] Adverse Reaction (Unknown, Verified 09/17/23 09:16) stomach pain acetaminophen [From Percocet] Adverse Reaction (Verified 09/17/23 09:16) Nausea and Vomiting hydrocodone [From Vicodin] Adverse Reaction (Verified 09/17/23 09:16) Nausea and Vomiting ibuprofen [From Motrin] Adverse Reaction (Verified 09/17/23 09:16) Stomach Upset oxycodone [From Percocet] Adverse Reaction (Verified 09/17/23 09:16) Nausea and Vomiting HPI Comments Details: The patient is a 77 year-old woman with a known history of asthma, pulmonary nodules and chronic cough. Today she has a telehealth visit. She was in her usual state health until for the last few days which she has been having worsening cough in addition to allergy symptoms. She has been visiting family in the symptoms appear to be getting worse. She has tried Benadryl because of significant daytime drowsiness. In addition to that she continues with current respiratory therapy with only partial resolution of the symptoms. She denies any fevers or chills or any exposure to any cover 19 infection. 07/22/2020 the patient is here for a follow-up visit. She is status post bronchoscopy. 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 Her left mainstem bronchus also appeared to be inflamed consistent with bronchitis. Her cultures were all negative except set for some filamentous fungus. I do not believe that this is infectious process. However, the patient has significant allergies and likely contributing to her worsening asthma and allergy symptoms. She is concerned because she also has mold in her current home that she is renting. At this point this place is not healthy and safe for her pulmonary health. I did provide her with a brief letter recommended that she relocate to an apartment or home free of rugs, free of pests and also free of mold. The patient is using cough medications. This has been helpful. In addition to has a history of obstructive sleep apnea. She not using CPAP at this time. The patient does have daytime drowsiness in addition to intermittent headaches. She also has a significant history of snoring. Her [place] score is elevated 01/19. I will request a home sleep study for the patient as well. The patient does have a CPT Acapella valve that she needs to use. She will bring it into the next visit so I can tissue had to use it in the meantime she is going to continue with current respiratory therapy. She also has an allergy appointment coming up soon. We did talk about the tracheobronchomalacia as far as different interventions. Ultimately if she wants to have a referral to [place] and will be reasonable specially if she fails conservative management. 07/26/2022 The patient is here for a follow up visit. he is doing well now. Several months ago she was admitted to [facility] with NSTEMI. Initially felt to need CABG, but then underwent a PCI with 2 stents to the RCA. She then was discharged, but then readmitted and underwent a repeat cath with PCI to LAD and OM2. She now is recovering.nIs suppose to start rehab. Has been using her inhalers as prescribed. She did under a CT chest, but is not read as of yet. I will call her once I have the results. Not tolerating the Breo powder. Causing hoarseness. Having worsening allergy symptoms with nasal congestion and cough. moderate in severity. 11/21/2022 the patient is here for a pulmonary follow-up visit. She is recovering from her cardiac interventions. She is participating in cardiac rehabilitation. She is tolerating that well. Now going to the fall she has noticed increasing allergy symptoms. She has been using her [id number] allergy medicine and has been using the Advair inhaler. She does use at twice a day. Still having to use her rescue inhaler throughout the day in complaining of chest tightness and cough. The patient also has some degree of tracheal bronchomalacia that is likely affecting her airway clearance. The patient was following up with Allergy and then now needs a referral to a new office because of a recent change. The patient will continue to follow up with Allergy immunology because allergy shots were providing her positive results per in the meantime will going to go ahead and optimize respiratory therapy by adding a long-acting muscarinic antagonist and she will continue with the combination inhaler. 05/21/2023 the patient is here for a pulmonary follow-up visit. The patient overall has been about the same. She still complains of a cough. Has been getting worse still. Moderate severity. With some chest congestion. Also sinus pressure feels like the cough is mainly from a postnasal drip. The patient has been on nasal therapies without any significant improvement. She does have issues with tracheobronchomalacia likely contributing to her chronic cough. Will go ahead and try her on a small dose of doxycycline for 10 days to see if we can alleviate her symptoms. In the meantime she has been on the respiratory inhalers with partial improvement of the symptoms. She responds better to the nebulized therapy. Will make sure to provide the medications to the pharmacy. We also give her breathing treatment in the office. She does get replacement nebulizer since hers is broken beyond repair. 09/17/2023 the patient is here for a pulmonary follow-up visit. The patient overall has been doing well. Her cough seems to be a little better. She did have a bout of bronchitis and them sinusitis. She was treated effectively for those. She still feels like she has some chest tightness. Although she has not been using her Advair. She does have diabetes would like to prevent on too much prednisone use. I did give her a spacer in order for her to use her Advair twice a day. Issues that she his oral irritation from the Advair. Hopefully with a spacer she will tolerated better. She knows to rinse with mouthwash or salt water. In the meantime she has not been able to use her CPAP because it fell and she is not sure if is working. She does use reliable [facility]. I will send for additional supplies. Will going to have her bring the machine in so we can evaluated in the coming weeks. If the machine is not working then will have to reach out to reliable. Otherwise will try to adjusted for her for her to start using it since she needs it for her underlying sleep apnea. As far as imaging studies she did have a chest x-ray sometime last month because she did have COVID. He was read as no acute disease. Her last CT scan of the chest was back in 07/15/2022 which she had multiple pulmonary nodules largest 1 measuring 5 mm in size. Will plan to allow her to recover after having COVID months ago and then repeat her CT scan in III months' time to follow-up with the pulmonary nodules. If her nodules are stable no further follow-up is warranted. [facility] Medical History Dysphagia Tracheobronchomalacia ROXIE (obstructive sleep apnea) Essential hypertension Atherosclerotic cardiovascular disease Urinary incontinence Obese Dyslipidemia Anxiety and depression Gastric pain Sinusitis Chronic allergic rhinitis Asthma Cough Cough Diabetes mellitus Fibromyalgia Pulmonary nodules Surgical History H/O heart artery stent Hx of esophagogastroduodenoscopy History of bronchoscopy Hx of colonoscopy H/O left knee surgery H/O breast biopsy H/O: hysterectomy Family History Father Hypertension Mother Hypertension Diabetes Daughter Diabetes Brother No problems noted. Social History Household Members: Children Alcohol intake: former Patient Tobacco Use Status: Never used Tobacco Second Hand Smoke Exposure: Yes Review of Systems Const Reports fatigue, Denies fever(s), Denies headache(s), Denies night sweats and Denies weight loss Eyes Denies eye discharge and Denies irritation ENT Reports Normal hearing present, Denies dizziness, Denies headache(s), Reports nasal congestion and Reports post nasal drip Card Denies chest pain, Denies leg edema, Denies dyspnea and Denies dyspnea on exertion Resp Reports chest congestion, Reports cough, Denies dyspnea, Denies dyspnea on exertion and Denies wheezing GI Denies change in bowel habits and Reports heartburn Denies difficulty voiding and Denies dysuria Musc Denies back pain and Denies arthralgias Skin/Breast Denies pruritus, Denies rash and Denies jaundice Neuro Reports Normal hearing present, Denies Abnormal speech present, Denies dizziness, Denies headache(s) and Denies seizure-like activity Psych Denies anxiety, Denies depression and Denies panic attacks Endo Denies cold intolerance, Reports fatigue, Denies flushing and Denies heat intolerance Osman/Lymph Denies easy bleeding and Denies easy bruising Aller/Immun Denies wheezing Physical Exam Vital Signs: Last Vital Signs Pulse 84 09/17/23 09:14 BP 132/68 09/17/23 09:14 Pulse Ox 97 09/17/23 09:14 Oxygen Delivery Method Room Air 09/17/23 09:14 BMI result Body Mass Index 32.2 Const General: alert HEENT Mouth: tongue abnormal Neck Neck: Yes normal visual inspection, Yes full ROM and Yes no lymphadenopathy Chest Chest palpation & inspection: normal inspection of the chest Resp Auscultation: no wheezes and diminished lung sounds Cardio Rate: regular rate Rhythm: regular rhythm Heart sounds: S1 normal heart sound present and S2 normal heart sound present GI Palpation (GI): Soft to palpation and nontender Auscultation: normal bowel sounds Skin General skin exam: rashes and/or lesions noted Neuro Cranial nerves: Yes Normal hearing present Speech: No Abnormal speech present Assessment & Plan Assessment & Plan (1) Asthma: Code(s): J45.909 - Unspecified asthma, uncomplicated Category: Medical Qualifiers: Asthma complication type: uncomplicated Asthma persistence: persistent Asthma severity: moderate Qualified Code(s): J45.40 - Moderate persistent asthma, uncomplicated (2) Pulmonary nodules: Code(s): R91.8 - Other nonspecific abnormal finding of lung field Category: Medical (3) ROXIE (obstructive sleep apnea): Code(s): G47.33 - Obstructive sleep apnea (adult) (pediatric) Category: Medical (4) Cough: Code(s): R05 - Cough Category: Medical Qualifiers: Cough type: chronic Qualified Code(s): R05.3 - Chronic cough (5) Chronic allergic rhinitis: Code(s): J30.9 - Allergic rhinitis, unspecified Category: Medical (6) Tracheobronchomalacia: Code(s): J39.8 - Other specified diseases of upper respiratory tract Category: Medical Plan continue APAP, full face mask, F30. will bring in machine to assess continue CPT with flutter valve twice a day continue Advair HFA add spacer and then rinse with salt water continue Singulair ELAINE/DuoNebs as needed nasal spray Azelastine nasal spray CT chest 3 months follow-up 3-4 months Orders: Orders CT chest wo IV con Today R91.8 - Other nonspecific abnormal finding of lung field Coding Level of Care Code Est Pt Level 4 (55439) Diagnoses Moderate persistent asthma without complication J45.40 Asthma complication type: uncomplicated Asthma persistence: persistent Asthma severity: moderate Pulmonary nodules R91.8 ROXIE (obstructive sleep apnea) G47.33 Chronic cough R05.3 Cough type: chronic Chronic allergic rhinitis J30.9 Tracheobronchomalacia J39.8 Time Spent (min) 17
[2023-09-17 09:14] VITALS: BP 132/68; PULSE 84; O2SAT 97; BMI 32.2
== END 2023-09-17 10:09 | disposition home or self-care (01) ==
PROVIDERS: PCP Family Medicine; Visit Provider Hospitalist
DX: J45.40 Moderate persistent asthma, uncomplicated (principal); R91.8 Other nonspecific abnormal finding of lung field; G47.33 Obstructive sleep apnea (adult) (pediatric); R05.3 Chronic cough; J30.9 Allergic rhinitis, unspecified; J39.8 Other specified diseases of upper respiratory tract
CPT/HCPCS: 99214

== ENCOUNTER → 2023-09-17 09:08 | Outpatient (BNVA) | payer OTHER, SELFPAY | PROVIDERS: PCP Family Medicine; Visit Provider Hospitalist | DX: J45.40 Moderate persistent asthma, uncomplicated (principal); R91.8 Other nonspecific abnormal finding of lung field; G47.33 Obstructive sleep apnea (adult) (pediatric); R05.3 Chronic cough; J30.9 Allergic rhinitis, unspecified; J39.8 Other specified diseases of upper respiratory tract; Z99.89 Dependence on other enabling machines and devices; Z79.899 Other long term (current) drug therapy | CPT/HCPCS: 99212 ==

== ENCOUNTER 2023-10-02 19:28 | Outpatient (REF) | payer OTHER, SELFPAY ==
--- NOTE | ~2023-10-02 | MR_ITS ---
EXAMINATION: MR SHOULDER WITHOUT CONTRAST, RIGHT CLINICAL INFORMATION: Right shoulder pain. COMPARISON: Radiographs dated 05/14/2023. TECHNIQUE: MRI of the shoulder without contrast was performed on a high-field scanner. FINDINGS: ROTATOR CUFF: A massive full-thickness rotator cuff tear measures approximately 5.5 cm AP with full-width disruption of the supraspinatus and infraspinatus tendons and the majority of the subscapularis. A few of the more inferior fibers of the subscapularis tendon may remain intact. There is retraction of the torn margin of the supraspinatus by 3.8 cm to the level of the glenoid fossa. Moderate atrophy and grade 3 fatty replacement are evident at the supraspinatus, subscapularis, and infraspinatus muscles. Teres minor is unremarkable. There is a lipoma within the posterior fibers of the deltoid muscle measuring approximately 3 cm in length. BICEPS: Proximal tendon of the long head of the biceps is disrupted at its intra-articular extent with distal retraction. CORACOACROMIAL ARCH: The undersurface of the acromion is flat with anterior downsloping. No significant spurs. Moderate acromioclavicular osteoarthritis. A moderate volume of fluid is present in the subacromial subdeltoid bursa and subcoracoid bursa, extending from the glenohumeral joint through the large rotator cuff defect. LABRUM/CAPSULE: There is circumferential degeneration of the glenoid labrum with loss of normal labral tissue. The posterior labrum is torn and partially displaced from the glenoid rim. Axillary pouch is unremarkable. GLENOHUMERAL JOINT/MARROW: Severe glenohumeral osteoarthritis is characterized by diffuse full-thickness articular cartilage loss at the humeral head and glenoid with cortical irregularity, subcortical cystic change, articular sclerosis, and marginal osteophytes. Moderate-sized joint effusion. Synovitis is evident in the axillary pouch. MR/MR shoulder RT wo con IMPRESSION: 1. Massive full-thickness rotator cuff tear involving the supraspinatus, infraspinatus, and subscapularis tendons with moderate associated muscle atrophy and fatty replacement. 2. 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 3. Complete tear of the proximal tendon of the long head of the biceps with distal retraction.
== END 2023-10-02 19:29 | disposition home or self-care (01) ==
LOC: HO.MRI 19:28
PROVIDERS: PCP Family Medicine; Visit Provider Family Medicine
DX: M25.511 Pain in right shoulder (principal)
CPT/HCPCS: 73221

== ENCOUNTER 2023-10-10 13:08 | Outpatient (AMB) | payer OTHER, SELFPAY ==
[2023-10-10 13:11] VITALS: BP 134/62; PULSE 83; BMI 32.6
--- NOTE | 2023-10-10 13:11 | A.OFFVIS_ITS ---
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 Required: Yes Hardening Machine Operator Helper Name: Charli Brizuela443/rani Accompanied by: Self / Same As Patient Allergies fluticasone [Flovent HFA] Allergy (Unknown, Verified 09/17/23 09:16) lip swelling lisinopril Allergy (Verified 09/17/23 09:16) Itching umeclidinium [From Incruse Ellipta] Adverse Reaction (Intermediate, Verified 09/17/23 09:16) Chest Pain empagliflozin [Jardiance] Adverse Reaction (Unknown, Verified 09/17/23 09:16) vaginal itch metformin Adverse Reaction (Unknown, Verified 09/17/23 09:16) stomach pain sitagliptin [Januvia] Adverse Reaction (Unknown, Verified 09/17/23 09:16) stomach pain acetaminophen [From Percocet] Adverse Reaction (Verified 09/17/23 09:16) Nausea and Vomiting hydrocodone [From Vicodin] Adverse Reaction (Verified 09/17/23 09:16) Nausea and Vomiting ibuprofen [From Motrin] Adverse Reaction (Verified 09/17/23 09:16) Stomach Upset oxycodone [From Percocet] Adverse Reaction (Verified 09/17/23 09:16) Nausea and Vomiting Medication List - Last Reconciled 10/10/23 by Jm Spencer MD acetaminophen 500 mg PO Q6H PRN albuterol sulfate 90 mcg/actuation (Ventolin HFA) 2 puffs PO Q4H PRN 30 days aspirin 81 mg PO DAILY benzonatate 200 mg PO TID PRN blood sugar diagnostic (OneTouch Verio test strips) As directed blood-glucose meter (OneTouch Verio Meter) As directed budesonide 32 mcg/actuation 2 sprays intranasal DAILY 30 days budesonide 0.5 mg (2 mL) inhalation BID 30 days carvedilol 3.125 mg PO BID fluticasone propion-salmeterol 115-21 mcg/actuation (Advair HFA) 2 puffs inhalation Q12H 30 days hydrocortisone 2.5% topical inhalational spacing device (Aerochamber MV spacer) As directed insulin glargine (Lantus Solostar U-100 Insulin) 20 units subcut DAILY ipratropium bromide intranasal ipratropium-albuterol 0.5 mg-3 mg(2.5 mg base)/3 mL 3 mL inhalation Q6H PRN lancets (OneTouch UltraSoft Lancets) As directed latanoprost 0.005% 1 drp ophthalmic (eye) BEDTIME mirabegron ER (Myrbetriq) 25 mg PO DAILY 30 days pen needle, diabetic As directed pioglitazone 45 mg PO DAILY rosuvastatin 40 mg PO DAILY sennosides-docusate sodium 8.6-50 mg (Senna with Docusate Sodium) 2 tab-caps (2 x 8.6-50 mg) PO BEDTIME PRN 60 days sertraline 50 mg PO DAILY sertraline 50 mg PO DAILY simethicone (Gas Relief Extra Strength) 0 mg PO spironolactone 25 mg PO DAILY HPI Comments Details: Natali returns for follow-up regarding coronary disease. She is to follow-up here but then switched to [facility] and then moved back to [place]. Cardiac data reviewed. Apparently, she was admitted with NSTEMI to [facility] and then had cardiac catheterization and that showed multivessel coronary disease. Subsequently, she was seen by cardiac surgery for CABG but declined. Then it seems that she underwent PCI of RCA followed by staged PCI of LAD/OM. After that, probably saw [facility] and then switched here. Overall, she states she feels fine. She does not take aspirin regularly as she believes is causing lot of gastritis type symptoms. Otherwise, she is only take statins either as it is apparently causing a lot of muscle pains. She is looking for alternatives. Otherwise, no clear cardiac symptoms. [facility] Medical History Dysphagia Tracheobronchomalacia ROXIE (obstructive sleep apnea) Essential hypertension Atherosclerotic cardiovascular disease Urinary incontinence Obese Dyslipidemia Anxiety and depression Gastric pain Sinusitis Chronic allergic rhinitis Asthma Cough Cough Diabetes mellitus Fibromyalgia Pulmonary nodules Surgical History H/O heart artery stent Hx of esophagogastroduodenoscopy History of bronchoscopy Hx of colonoscopy H/O left knee surgery H/O breast biopsy H/O: hysterectomy Family History Father Hypertension Mother Hypertension Diabetes Daughter Diabetes Brother No problems noted. Social History Household Members: Children Alcohol intake: former Patient Tobacco Use Status: Never used Tobacco Second Hand Smoke Exposure: Yes Review of Systems Const Denies chills, Denies fatigue, Denies fever(s), Denies weight gain and Denies weight loss ENT Denies dizziness Card Denies chest pain, Denies leg edema, Denies lightheadedness, Denies palpitations, Denies dyspnea on exertion, Denies orthopnea and Denies other Resp Denies cough and Denies dyspnea on exertion GI Denies hematochezia and Denies change in stool character Musc Denies abnormal gait, Denies muscle weakness, Denies numbness, Denies radiating pain into limb and Denies tingling Neuro Denies abnormal gait, Denies dizziness, Denies numbness and Denies tingling Endo Denies fatigue and Denies palpitations Physical Exam Vital Signs: Last Vital Signs Pulse 83 10/10/23 13:11 BP 134/62 10/10/23 13:11 BMI result Body Mass Index 32.6 Const General: comfortable and no acute distress Orientation/consciousness: patient oriented x3 HEENT Other: Unremarkable Head: Yes normal to inspection Neck Neck: Yes normal visual inspection Chest Chest palpation & inspection: normal inspection of the chest Resp Auscultation: clear to auscultation bilaterally Cardio Palpation: normal PMI Heart sounds: S1 normal heart sound present, S2 normal heart sound present, no gallops, no murmurs and no rubs GI Palpation (GI): Soft to palpation Back/Spine/Pelvis Other: unremarkable Skin General skin exam: no rashes or lesions noted Neuro General: patient oriented x3 Extrem General: Yes normal to inspection Psych Mental Status: mental status grossly normal Assessment & Plan Assessment & Plan (1) Atherosclerotic cardiovascular disease: Code(s): I25.10 - Atherosclerotic heart disease of [place] coronary artery without angina pectoris Category: Medical (2) Ischemic cardiomyopathy: Code(s): I25.5 - Ischemic cardiomyopathy Category: Medical (3) Other and unspecified hyperlipidemia: Code(s): E78.5 - Hyperlipidemia, unspecified Category: Medical Plan Status post PCI to RCA/LAD/OM2 from June 2022. Echocardiogram, 06/2022 from [facility] with LVEF of 40-45% with inferior basal, inferior septal hypokinesis; [id number] mitral regurgitation. Overall, stable coronary artery disease with mild ischemic cardiomyopathy but no active symptoms. As she is not able tolerate aspirin because of gastritis, she can try Plavix. With regard to lipids, she states she cannot take statins because of muscle pains. We can update her lipid profile. Then probably Repatha or Praluent. Follow-up in 6 months with another echocardiogram. Orders: Orders Lipid Panel Today Jm Sepncer MD E78.5 - Hyperlipidemia, unspecified CA echo transthoracic complete 6 Months Jm Spencer MD I25.5 - Ischemic cardiomyopathy Medications: New clopidogrel (Plavix) 75 mg PO DAILY 90 tabs 3RF Jm Spencer MD I25.5 - Ischemic cardiomyopathy Changed From insulin glargine (Lantus Solostar U-100 Insulin) 35 units (0.35 mL) subcut DAILY 30 days 10.5 mL 11RF E11.9 - Type 2 diabetes mellitus without complications, Z79.4 - oil heaterman (current) use of insulin To insulin glargine (Lantus Solostar U-100 Insulin) 20 units subcut DAILY E11.9 - Type 2 diabetes mellitus without complications, Z79.4 - penitentiary (current) use of insulin Rossana Rosen MD Coding Level of Care Code Est Pt Level 4 (19966) Diagnoses Atherosclerotic cardiovascular disease I25.10 Ischemic cardiomyopathy I25.5 Other and unspecified hyperlipidemia E78.5
== END 2023-10-10 13:48 | disposition home or self-care (01) ==
PROVIDERS: PCP Family Medicine; Visit Provider Internal Medicine
DX: I25.10 Atherosclerotic heart disease of native coronary artery without angina pectoris (principal); I25.5 Ischemic cardiomyopathy; E78.5 Hyperlipidemia, unspecified
CPT/HCPCS: 99214

== ENCOUNTER 2023-10-10 13:08 | Outpatient (REF) | payer OTHER, SELFPAY ==
[2023-10-10 16:04] LABS: Cholesterol 233 mg/dL (<200); HDL Cholesterol 54 mg/dL (>40); LDL Cholesterol Calculated 148 mg/dL (<100); Triglycerides 158 mg/dL (<150)
== END 2023-10-10 13:09 | disposition home or self-care (01) ==
LOC: HO.LAB 13:08
PROVIDERS: PCP Family Medicine; Visit Provider Internal Medicine
DX: I25.10 Atherosclerotic heart disease of native coronary artery without angina pectoris (principal); I25.5 Ischemic cardiomyopathy; E78.5 Hyperlipidemia, unspecified
CPT/HCPCS: 36415; 80061; 99212

== ENCOUNTER 2023-10-18 16:30 | Outpatient (REF) | payer OTHER, SELFPAY ==
--- NOTE | ~2023-10-18 | CT_ITS ---
EXAMINATION: CT CHEST WITHOUT CONTRAST CLINICAL INFORMATION: Nonspecified abnormal lungs. COMPARISON: CT dated July 21, 2022. TECHNIQUE: Multidetector volumetric CT imaging of the chest was done. Axial MIP volume rendering provided. Sagittal and coronal reformatted images were obtained. This CT examination was performed using dose optimization techniques as appropriate, variously including the following: *Automated exposure control *Adjustment of mA and/or kV according to patient size (this includes techniques or standardized protocols for targeted exams where dose is matched to indication/reason for exam; i.e. extremities or head) *Use of iterative reconstruction technique DLP: 169 mGy-cm FINDINGS: Submitted for interpretation on 12/26/2023. LUNGS: There is a 3 mm noncalcified pulmonary nodule, left lung base. There is a 7 mm noncalcified pulmonary nodule, lingula and scattered associated chest and 3 mm noncalcified pulmonary nodules. There is a 5 mm calcified pulmonary nodule, right lung base. No bronchiectasis. No honeycombing.. MEDIASTINUM: Calcified plaques in the thoracic aorta wall and its main branches. No aneurysm, thoracic aorta. No pericardial effusion. CORONARY ARTERY CALCIFICATION: Dense Calcified plaques throughout the coronary arteries. PLEURA: No pleural effusion. No pneumothorax. AXILLA: No lymphadenopathy. UPPER ABDOMEN: Punctate calcifications in the spleen and liver. Calcified plaques in the included abdominal aorta wall and main mesenteric branches. OSSEOUS STRUCTURES: Multilevel marginal osteophyte formation and disc desiccation with syndesmophyte formation throughout the axial skeleton. Old wedge-shaped compression deformities representing 40% volume loss, T11 vertebra. No acute fracture or listhesis. Degenerative changes in the right shoulder with partially calcified mixed density in the glenohumeral capsule and possibly in the subcoracoid bursa.. CT/CT chest wo IV con IMPRESSION: Noncalcified calcified hilar nodules, stable. Coronary artery disease. Questionable bursitis, right glenohumeral joint/subcoracoid. Multilevel spondylosis. Probable prior granulomatous disease process. Fleischner criteria: Low risk patients: 18-24months follow-up CT. High risk patients: 18-24-month follow-up CT. Electronically signed by: Maximus Holman MD 12/26/2023 11:46 AM EDT
== END 2023-10-18 16:31 | disposition home or self-care (01) ==
LOC: HO.CT 16:30
PROVIDERS: PCP Family Medicine; Visit Provider Hospitalist
DX: R91.8 Other nonspecific abnormal finding of lung field (principal)
CPT/HCPCS: 71250

== ENCOUNTER → 2023-10-18 16:32 | Outpatient (BNV) | payer OTHER, SELFPAY | PROVIDERS: PCP Family Medicine; Visit Provider Radiology Diagnostic Radiology | DX: R91.8 Other nonspecific abnormal finding of lung field (principal) | CPT/HCPCS: 71250 ==

== ENCOUNTER 2023-11-02 09:36 | Outpatient (REF) | payer OTHER, SELFPAY ==
[2023-11-02 09:46] LABS: MANUAL DIFF FLAG NO
[2023-11-02 09:56] LABS: Basophils Percent Auto 0.6 % (0-2); Eosinophils Absolute Auto 0.1 X10*3/uL (0.0-0.4); Eosinophils Percent Auto 2.1 % (0-4); Hematocrit 43.4 % (37.0-47.0); Hemoglobin 14.5 g/dl (12.0-16.0); Imm Gran Abs Auto 0.02 X10*3/uL (0.00-0.03); Imm Gran Pct Auto 0.3 % (0.0-0.4); Lymphocytes Absolute Auto 2.4 X10*3/uL (1.2-4.9); Lymphocytes Percent Auto 37.4 % (20-40); Mean Corpuscular HGB Conc 33.4 g/dl (31.0-35.0); Mean Corpuscular Hemoglobin 30.9 pg (27.0-33.0); Mean Corpuscular Volume 92.3 fL (80.0-98.0); Mean Platelet Volume 10.7 fL (9.4-12.3); Monocytes Absolute Auto 0.5 X10*3/uL (0.1-1.2); Monocytes Percent Auto 7.6 % (2-11); Neutrophils Absolute Auto 3.3 x10*3/uL (2.0-8.3); Platelet Count 206 X10*3/uL (160-400); Red Cell Distribution Width 12.8 % (11.0-16.0); White Blood Count 6.3 X10*3/uL (4.8-10.8)
[2023-11-02 10:34] LABS: Alanine Aminotransferase 23 U/L (0-31); Albumin Level 4.2 g/dL (3.5-5.0); Alkaline Phosphatase 56 U/L (39-117); Anion Gap 13 (12-20); Aspartate Amino Transferase 22 U/L (5-31); Bilirubin Total 0.7 mg/dL (0.0-1.0); Blood Urea Nitrogen 23 mg/dL (9-16); Calcium 9.8 mg/dL (8.4-10.2); Carbon Dioxide 24 mmol/L (22-29); Chloride 105 mmol/L (96-108); Estimated Glomerular Filt Rate 56; Glucose Random 156 mg/dL (60-115); Lipase 9 U/L (8-78); Potassium 4.2 mmol/L (3.3-5.1); Sodium 138 mmol/L (135-145); Total Protein 7.5 g/dL (6.5-8.0)
[2023-11-02 11:47] LABS: Appearance Urine Clear; Color Urine Yellow; Glucose Urine UA Negative (Negative); Leukocyte Esterase Urine Trace (Negative); Nitrite Urine Negative (Negative); PH 6.5 (5.0-9.0); UMIC TRIGGER UACC YES; Urine Blood Negative (Negative); Urine Ketones Negative (Negative); Urine Protein Negative (Neg-Trace)
[2023-11-02 11:54] LABS: Bacteria Urine None Seen (None Seen); Hyaline Casts Urine 0-2 /LPF (0-2); RBC Urine 0-2 /HPF (0-2); WBC Urine 0-5 /HPF (0-5)
== END 2023-11-02 09:37 | disposition home or self-care (01) ==
LOC: HO.LAB 09:36
PROVIDERS: PCP Family Medicine; Visit Provider Family Medicine
DX: R14.0 Abdominal distension (gaseous) (principal); R30.0 Dysuria
CPT/HCPCS: 36415; 80053; 81001; 83690; 85025

== ENCOUNTER 2023-11-02 23:37 | Emergency (ER) | payer OTHER, SELFPAY ==
[2023-11-02 23:48] VITALS: BP 153/53; PULSE 58; RESP 17; TEMP 36.4; O2SAT 97
[2023-11-02 23:52] VITALS: BP 153/53; BP 182/87; PULSE 58; PULSE 64; RESP 18; O2SAT 100; O2SAT 98; BMI 34.5
--- NOTE | 2023-11-03 | ECG_ITS ---
Test Reason : GEN MED Blood Pressure : / mmHG Vent. 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
--- OUTSIDE RECORDS SUMMARY | 2023-11-03 00:26 | XMS_ITS | Continuity of Care Document ---
Author Organization [facility] Address [address] [place] [address]- Care Team Providers Care Wool Puller Name Role Phone Liset Mitchell MD Primary Care Physician Encounter [facility] [id number] Date(s): 06/09/21 - 09/14/21 [facility] [employer] [facility] [address] [place], [place] [address] Attending Physician: Ute Butler MD Admitting Physician: Ute Butler MD Referring Physician: Liset Mitchell MD Allergies, Adverse Reactions, Alerts No Known Allergies Immunizations Given and Recorded Vaccine Date Status Refusal Reason influenza virus vaccine, inactivated 12/02/15 Russell rded influenza virus vaccine, inactivated 11/13/14 Russell rded influenza virus vaccine, inactivated 11/21/13 Russell rded influenza virus vaccine, inactivated 12/19/12 Russell rded influenza virus vaccine, inactivated 11/13/11 Russell rded influenza virus vaccine, inactivated 04/19/11 Russell rded influenza virus vaccine, inactivated 10/25/09 Russell rded influenza virus vaccine, inactivated 10/29/08 Russell rded pneumococcal 13-valent vaccine 03/18/15 Recorded Zostavax (oldterm) 04/01/14 Recorded tetanus/diphtheria/pertussis, acel(Tdap) 05/21/12 Recorded pneumococcal 23-valent vaccine 03/25/11 Recorded pneumococcal 23-valent vaccine 04/04/10 Recorded pneumococcal 23-valent vaccine 07/15/01 Recorded tetanus-diphtheria toxoids (Td) 11/04/97 Recorded Medications acetaminophen 500 mg oral tablet 1 tablet = 500 mg, By Mouth, 3 times a day, PRN Pain , Mild, # 120 tablet, 0 Refills, Maintenance, 08/21/16 16:52:36 EDT, Tablet Start Date: 08/21/16 Status: Ordered Aerochamber See Instructions, # 1 each, Maintenance, use with all inhalers, 01/07/18 16:11:06 EST, Compound Start Date: 01/07/18 Status: Ordered albuterol-ipratropium 3 mg-0.5 mg/3 ml inhalation solution 3 mL, Neb, Every 4 hours, PRN Wheezing/Shortness of Breath, # 540 mL, 6 Refills, Maintenance, 03/10/18 10:32:00 EST, Inhalation Solution, ICD Code J45.30, 3 mL Neb Every 4 hours,PRN:Wheezing/Shortness of Breath Start Date: 03/10/18 Status: Ordered amLODIPine 10 mg oral tablet 10 mg, 1, tablet, By Mouth, Daily, # 90 tablet, Refills 0, Maintenance, 08/21/16 16:51:56 Start Date: 08/21/16 Status: Ordered Aspirin Tablet 81 mg, By Mouth, Daily, Refills 0, Maintenance, 02/24/16 11:17:50 Start Date: 02/24/16 Status: Ordered atorvastatin 40 mg oral tablet 1 tablet = 40 mg, By Mouth, Daily, # 90 tablet, 0 Refills, Maintenance, Tablet Start Date: 03/03/18 Status: Ordered Breo Ellipta 100 mcg-25 mcg/inh inhalation powder 1 puffs, Inhalation, Daily, # 30 each, 1 Refills, Maintenance, 03/19/18 11:48:16 EST, Powder, 1 puffs Inhalation Daily Start Date: 03/19/18 Status: Ordered cetirizine 10 mg oral tablet 1 tablet = 10 mg, By Mouth, Daily, # 30 tablet, 11 Refills, Maintenance, 08/21/16 14:58:39, Tablet Start Date: 08/21/16 Status: Ordered chlorthalidone 25 mg oral tablet Refills 0, Maintenance, 05/22/18 13:48:16 EDT Start Date: 05/22/18 Status: Ordered cloNIDine 0.1 mg/24 hr transdermal film, extended release 1 patch, Topically, Every week, # 12 patch, 0 Refills, Maintenance, 02/14/19 9:23:00 EST, Patch Start Date: 02/14/19 Status: Ordered duloxetine 60 mg oral enteric coated capsule 1 capsule = 60 mg, By Mouth, Daily, # 30 capsule, 0 Refills, Maintenance, 02/14/19 9:22:00 EST, EC Capsule Start Date: 02/14/19 Status: Ordered estradiol 0.1 mg/g vaginal cream = 1 Gm, Vaginally, Daily at bedtime, take every night for two weeks then twice weekly, # 30 Gm, 11 Refills, Maintenance, 12/15/20 10:14:00 EDT, [facility]/pharmacy #[id number], Partial fill upon patient request if the prescription is for a schedule II opioid drug.... Start Date: 12/15/20 Status: Ordered estradiol 0.1 mg/g vaginal cream 0 Refills, Maintenance, 05/22/18 13:48:34 EDT Start Date: 05/22/18 Status: Ordered fexofenadine 180 mg oral tablet 0 Refills, Maintenance, 05/22/18 13:48:01 EDT Start Date: 05/22/18 Status: Ordered Flonase 50 mcg/inh nasal spray 2 sprays, Nares, Both, Daily in AM, 0 Refills, Maintenance, 08/21/16 16:52:13, [place] Start Date: 08/21/16 Status: Ordered Flovent HFA 220 mcg/inh inhalation aerosol 2 puffs, Inhalation, 2 times a day, rinse mouth and throat after use, # 1 each, 11 Refills, Maintenance, 02/27/18 15:17:00 EST, ICD Code J45.30 Start Date: 02/27/18 Status: Ordered FreeStyle Aristides reader FreeStyle Aristides reader, See Instructions, # 1 each, Refills 0, Tot. Refills 0, Maintenance, Use to read Aristides Sensor 5x daily, can also use to test BG 2x daily, DxE10.9 [facility]# [address]-40, 08/19/18 14:17:22 EDT, Compound Start Date: 08/19/18 Status: Ordered FreeStyle Aristides sensors FreeStyle Aristides sensors, See Instructions, # 3 each, Refills 11, Tot. Refills 11, Maintenance, change every 10 days, (3 each/sensors/month), E11.9, 08/19/18 14:17:16 EDT, Compound Start Date: 08/19/18 Status: Ordered Freestyle lite Lancet Device Freestyle lite Lancet Device, See Instructions, # 1 each, Refills 0, Tot. Refills 0, Maintenance, Use lancet device to prick finger for glucose testing. E11.65, 12/31/19 13:35:00 EST, Supply, 150, cm, 02/14/19 9:21:00 EST, Height, 67.5, kg, 08/26/18 1... Start Date: 12/31/19 Status: Ordered Freestyle Lite Lancets See Instructions, # 300 each, Refills 3, Tot. Refills 3, Maintenance, Use to check blood sugar 3 times daily. E11. 90-day supply., 07/16/19 11:23:00 EDT, Compound, 150, cm, 02/14/19 9:21:00 EST, Height, 67.5, kg, 08/26/18 12:02:00 EDT, Dry Weight Start Date: 07/16/19 Status: Ordered Freestyle Lite Monitor See Instructions, # 1 each, Refills 1, Tot. Refills 1, Maintenance, Use to checkblood sugar 4-5 times daily. E11.65, 08/19/18 14:12:25 EDT, Compound Start Date: 08/19/18 Stop Date: 09/18/18 Status: Ordered Freestyle Lite Test Strips See Instructions, # 300 each, Refills 3, Tot. Refills 3, Maintenance, Check blood sugar 3 times daily. E11.. 90-day supply., 07/20/20 9:07:00 EDT, Compound, 150, cm, 07/20/20 8:34:00 EDT, Height, 67.5, kg, 08/26/18 12:02:00 EDT, Dry Weight Start Date: 07/20/20 Status: Ordered FreeStyle Precision Saurabh Test Strips FreeStyle Precision Saurabh Test Strips, See Instructions, # 100 each, Refills 11, Tot. Refills 11, Maintenance, test BG 4x daily if symptomatic, E11.9, 08/19/18 14:17:19 EDT, Compound Start Date: 08/19/18 Status: Ordered hydrALAZINE 25 mg oral tablet Refills 0, Maintenance, 05/22/18 13:48:28 EDT Start Date: 05/22/18 Status: Ordered Januvia 100 mg oral tablet See Instructions, [facility], # 90 tablet, 4 Refills, [id number], 150, cm, 07/11/21 9:02:00 EDT, Height, 67.2, kg, 07/11/21 9:02:00 EDT, Dry Weight Start Date: 08/15/21 Status: Ordered Lantus Solostar Pen 100 units/mL subcutaneous solution See Instructions, Take 35 units daily at night. E11.65, # 30 mL, 5 Refills, Maintenance, 07/20/20 9:05:00 EDT, Solution, [facility]/pharmacy #[id number], 150, cm, 07/20/20 8:34:00 EDT, Height, 67.5, kg, 08/26/18 12:02:00 EDT, Dry Weight Start Date: 07/20/20 Status: Ordered Loratadine 10 mg, By Mouth, Daily, Maintenance, 04/11/17 11:24:28 Start Date: 04/11/17 Status: Ordered losartan 100 mg oral tablet By Mouth, Daily, 0 Refills, Maintenance, 01/07/18 15:35:32 EST Start Date: 01/07/18 Status: Ordered mirabegron 25 mg oral tablet, extended release 1 tablet = 25 mg, By Mouth, Daily, # 30 tablet, 11 Refills, Maintenance, 12/15/20 10:15:00 EDT, [facility]/pharmacy #[id number], Partial fill upon patient request if the prescription is for a schedule II opioid drug., 150, cm, 07/20/20 8:34:00 EDT, Height Start Date: 12/15/20 Status: Ordered Multivitamin By Mouth, Daily, 0 Refills, Maintenance, 01/07/18 15:37:22 EST Start Date: 01/07/18 Status: Ordered Pen [place], 32 G x 4 mm BD Ultra Fine III See Instructions, # 100 each, Refills 3, Tot. Refills 3, Maintenance, Use to inject insulin once daily. E11.65. 90-day supply., 07/20/20 9:06:00 EDT, Compound, 150, cm, 07/20/20 8:34:00 EDT, Height, 67.5, kg, 08/26/18 12:02:00 EDT, Dry Weight Start Date: 07/20/20 Status: Ordered PriLOSEC OTC 20 mg oral delayed release tablet 1 tablet = 20 mg, By Mouth, Daily, # 30 tablet, 5 Refills, Maintenance, 08/10/16 13:48:23, EC Tablet Start Date: 08/10/16 Stop Date: 02/06/17 Status: Ordered ProAir HFA 90 mcg/inh inhalation aerosol with adapter 180 mcg, 2, puffs, Inhalation, Every 4 hours, PRN, # 1 each, Refills 3, Tot. Refills 3, Maintenance, 01/07/18 16:12:20 EST, Inhaler, Route to Pharmacy Electronically, [id number], [facility]/pharmacy #[id number] Start Date: 01/07/18 Status: Ordered raNITIdine 150 mg oral capsule 1 capsule = 150 mg, By Mouth, 2 times a day, PRN acid reflux, # 30 capsule, 0 Refills, Maintenance,08/26/18 12:22:40 EDT, Capsule Start Date: 08/26/18 Status: Ordered Saline Nasal Mist See Instructions, Nares, Both 2 times a day 30 days, 0 Refills, Maintenance, 03/03/18 22:33:11 EST Start Date: 03/03/18 Status: Ordered sulfamethoxazole-trimethoprim 800 mg-160 mg oral tablet 0 Refills, Maintenance, 05/22/18 13:48:05 EDT Start Date: 05/22/18 Status: Ordered Vitamin B12 = 1,000 mcg, By Mouth, Daily, 0 Refills, Maintenance, 02/09/16 11:13:43 Start Date: 02/09/16 Status: Ordered Xalatan 0.005% solution 1 drops, Eyes, Both, Daily at bedtime, # 3 mL, 0 Refills, Maintenance, 02/24/16 11:17:19, Ophth Solution Start Date: 02/24/16 Status: Ordered Zofran 4 mg oral tablet 1 tablet = 4 mg, By Mouth, Every 8 hours, PRN Nausea & Vomiting, # 10 tablet, 0 Refills, Maintenance, 08/26/18 12:22:40 EDT, Tablet Start Date: 08/26/18 Status: Ordered Problem List Condition Effective Dates Status Health Status Inform ant Asthma - PFTs 200 at [place] , mild obst defect - sees pulm(Confirmed) Active Diabetes - sees endocrinology(Confirmed) Active Diastolic dysfunction - echo in prior records 08/01/2016 EF 50-55%, grade 2 diastolic dysfunction, mild hypokinesis(Confirmed) Active Acid reflux(Confirmed) Active Hyperlipidemia(Confirmed) Active Hyperlipidemia LDL goal < 100(Confirmed) Active Hypertension(Confirmed) Active ROXIE (obstructive sleep apnea ) - sleep study [facility] 12/28/2008 - in old records(Confirmed) Active Social History Social History Type Response Smoking Status Never smoker entered on: 07/05/16 Sex
--- OUTSIDE RECORDS SUMMARY | 2023-11-03 00:26 | XMS_ITS | Continuity of Care Document ---
Author Organization [facility] ter Address [address] [place] [address]- Care Team Providers Care Senior Market Research Analyst Name Role Phone Liset Mitchell MD Primary Care Physician Encounter [facility] [place] Date(s): 07/04/22 - 07/04/[address] [address]- Encounter Diagnosis Bleeding(Final) - 07/04/22 Discharge Disposition: A-D/C Home Attending Physician: Lisy Vera MD Admitting Physician: Lisy Vera MD Referring Physician: Not on Staff, Referring MD Allergies, Adverse Reactions, Alerts No Known Medication Allergies Immunizations Given and Recorded Vaccine Date [...] EST, Compound Start Date: 01/07/18 Status: Ordered Albuterol (Eqv-Proventil HFA) 90 mcg/inh inhalation aerosol 2 puffs, Inhalation, Every 6 hours, 0 Refills, Maintenance, 06/27/22 17:52:00 EDT, Partial fill upon patient request if the prescription is for a schedule II opioid drug. Start Date: 06/27/22 Status: Ordered aspirin 81 mg oral delayed release tablet 81 mg, 1, tablet, By Mouth, Daily, # 30 tablet, Refills 0, Maintenance, 06/27/22 17:51:00 EDT, Partial fill upon patient request if the prescription is for a schedule II opioid drug. Start Date: 06/27/22 Status: Ordered atorvastatin 80 mg oral tablet 1 tablet = 80 mg, By Mouth, Daily at bedtime, # 90 tablet, 0 Refills, Maintenance, 06/27/22 17:51:00 EDT, Tablet, Partial fill upon patient request if the prescription is for a schedule II opioid drug. Start Date: 06/27/22 Status: Ordered chlorthalidone 25 mg oral tablet 25 mg, 1, tablet, By Mouth, Daily, # 30 tablet, Refills 0, Maintenance, 06/27/22 17:50:00 EDT, Partial fill upon patient request if the prescription is for a schedule II opioid drug. Start Date: 06/27/22 Status: Ordered cloNIDine 0.2 mg/24 hr transdermal film, extended release 1 patch, Topically, Every week, # 12 patch, 0 Refills, Maintenance, 06/27/22 17:51:00 EDT, Patch, Partial fill upon patient request if the prescription is for a schedule II opioid drug. Start Date: 06/27/22 Status: Ordered diclofenac 1% topical gel 1 application, Topically, 4 times a day, # 100 Gm, 0 Refills, Maintenance, 06/27/22 17:51:00 EDT, Gel, Partial fill upon patient request if the prescription is for a schedule II opioid drug. Start Date: 06/27/22 Status: Ordered fluticasone 50 mcg/inh nasal spray 1 sprays, Nares, Both, 2 times a day, # 16 Gm, 0 Refills, Maintenance, 06/27/22 17:49:00 EDT, [place], Partial fill upon patient request if the prescription is for a schedule II opioid drug. Start Date: 06/27/22 Status: Ordered FreeStyle Aristides reader FreeStyle Aristides reader, See Instructions, # 1 each, Refills 0, Tot. Refills 0, Maintenance, Use to read Aristides Sensor 5x daily, can also use to test BG 2x daily, DxE10.9 [facility]# [id number], 08/19/18 14:17:22 EDT, Compound Start Date: 08/19/18 [...] to check blood sugar 3 times daily. E11.65. 90-day supply., 07/16/19 11:23:00 EDT, Compound, 150, [...] Maintenance, Check blood sugar 3 times daily. E11.65. 90-day supply., 07/20/20 9:07:00 EDT, Compound, 150, cm, 07/20/20 8:34:00 EDT, Height, 67.5, kg, 08/26/18 12:02:00 EDT, Dry Weight Start Date: 07/20/20 Status: Ordered FreeStyle Precision Saurabh Test Strips FreeStyle Precision Saurabh Test Strips, See Instructions, # 100 each, Refills 11, Tot. Refills 11, Maintenance, test BG 4x daily if symptomatic, E11.9, 08/19/18 14:17:19 EDT, Compound Start Date: 08/19/18 Status: Ordered Gas Relief Extra Strength 125 mg oral tablet, chewable TAKE 1 TABLET BY MOUTH NEEDED AFTER MEALS AND AT BEDTIME FOR GAS Start Date: 07/04/22 Status: Ordered isosorbide mononitrate 30 mg oral tablet, extended release 1 tablet = 30 mg, By Mouth, Daily, # 30 tablet, 0 Refills, Maintenance, 07/04/22 9:38:00 EDT, ER Tablet, [facility], Partial fill upon patient request if the prescription is for a schedule II opioid drug., 150, cm, 06/27/22 13:32:00 EDT,... Start Date: 07/04/22 Status: Ordered Lantus Solostar Pen 100 units/mL subcutaneous solution = 28 units, Subcutaneous Injection, Daily at bedtime, # 10 mL, 0 Refills, Maintenance, 06/27/22 17:50:00 EDT, Solution, Partial fill upon patient request if the prescription is for a schedule II opioid drug. Start Date: 06/27/22 Status: Ordered latanoprost 0.005% ophthalmic solution 1 drops, Eyes, Both, Daily at bedtime, # 3 mL, 0 Refills, Maintenance, 06/27/22 17:49:00 EDT, [place], Partial fill upon patient request if the prescription is for a schedule II opioid drug. Start Date: 06/27/22 Status: Ordered lidocaine 5% topical film 1 patch, Topically, Daily, PRN Pain , Mild, remove after 12 hours, # 13 each, 0 Refills, Maintenance, 06/27/22 17:51:00 EDT, Film, Partial fill upon patient request if the prescription is for a schedule II opioid drug. Start Date: 06/27/22 Status: Ordered lisinopril 5 mg oral tablet 5 mg, 1, tablet, By Mouth, Daily, # 30 tablet, Refills 0, Tot. Refills 0, Maintenance, 07/04/22 9:38:00 EDT, Route to Pharmacy Electronically, [facility], Partial fill upon patient request if the prescription is for a schedule II opioid... Start Date: 07/04/22 Status: Ordered metoprolol 25 mg oral tablet, extended release 25 mg, 1, tablet, By Mouth, Daily, # 30 tablet, Refills 0, Tot. Refills 0, Maintenance, 07/04/22 10:10:00 EDT, Route to Pharmacy Electronically, [facility], Partial fill upon patient request if the prescription is for a schedule II opioi... Start Date: 07/04/22 Status: Ordered Myrbetriq 25 mg oral tablet, extended release 1 tablet = 25 mg, By Mouth, Daily, do not crush or chew, # 30 tablet, 0 Refills, Maintenance, 07/04/22 9:14:00 EDT, ER Tablet, Partial fill upon patient request if the prescription is for a schedule II opioid drug. Start Date: 07/04/22 Status: Ordered nitroglycerin 0.4 mg sublingual tablet 1 tablet = 0.4 mg, Sublingual, Every 5 minutes, PRN Chest Pain, # 30 tablet, 0 Refills, Maintenance, 07/04/22 9:40:00 EDT, Tablet, [facility], Partial fill upon patient request if the prescription is for a schedule II opioid drug., 150,... Start Date: 07/04/22 Status: Ordered omeprazole 20 mg oral delayed release tablet 1 tablet = 20 mg, By Mouth, Daily, # 30 tablet, 0 Refills, Maintenance, 06/27/22 17:52:00 EDT, CR Tablet, Partial fill upon patient request if the prescription is for a schedule II opioid drug. Start Date: 06/27/22 Status: Ordered Pen Circle, 32 G x 4 mm BD Ultra Fine III See Instructions, # 100 each, Refills 3, Tot. Refills 3, Maintenance, Use to inject insulin once daily. E11.65. 90-day supply., 07/20/20 9:06:00 EDT, Compound, 150, cm, 07/20/20 8:34:00 EDT, Height, 67.5, kg, 08/26/18 12:02:00 EDT, Dry Weight Start Date: 07/20/20 Status: Ordered sertraline 50 mg oral tablet 1 tablet = 50 mg, By Mouth, Daily, # 30 tablet, 0 Refills, Maintenance, 06/27/22 17:50:00 EDT, Tablet, Partial fill upon patient request if the prescription is for a schedule II opioid drug. Start Date: 06/27/22 Status: Ordered spironolactone 25 mg oral tablet 25 mg, 1, tablet, By Mouth, Daily, # 30 tablet, Refills 0, Maintenance, 06/27/22 17:50:00 EDT, Partial fill upon patient request if the prescription is for a schedule II opioid drug. Start Date: 06/27/22 Status: Ordered ticagrelor 90 mg oral tablet 1 tablet = 90 mg, By Mouth, 2 times a day, # 60 tablet, 11 Refills, Maintenance, 07/04/22 9:39:00 EDT, Tablet, [facility], Partial fill upon patient request if the prescription is for aschedule II opioid drug., 150, cm, 06/27/22 13:32:0... Start Date: 07/04/22 Status: Ordered Problem List Condition Confirmation Course Effective Dates Status H ealth Status Informant Asthma - PFTs 200 at [place], mild obst defect - sees pulm Confirmed Active Asthma Confirmed Active Depression Confirmed Active Diabetes - sees endocrinology Confirmed Active Diastolic dysfunction - echo in prior records 08/01/2016 EF 50-55%, grade 2 diastolic dysfunction, mild hypokinesis Confirmed Active Acid reflux Confirmed Active GERD (gastroesophageal reflux disease) Confirmed Active Hyperlipidemia Confirmed Active Hyperlipidemia LDL goal < 100 Confirmed Active Hyperlipidemia Confirmed Active Hypertension Confirmed Active Hypertension Confirmed Active 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 Obese class I Confirmed Active ROXIE (obstructive sleep apnea) - sleep study [facility] 12/28/2008 - in old records Confirmed Active Vital Signs Most recent to oldest [Reference Range]: 1 2 Oxygen Saturation [94-100 %] 99 % (07/04/22 10:35 PM) 100 % (07/04/22 6:45 PM) Pulse Rate [55-90 bpm] 68 bpm (07/04/22 10:35 PM) 65 bpm (07/04/22 6:45 PM) Blood Pressure [90-138/55-84 mm Hg] 141/ 78mm Hg *H* (07/04/22 10:35 PM) 127/62mm Hg (07/04/22 6:45 PM) Respiratory Rate [16-30 br/min] 16 br/mi n (07/04/22 10:35 PM) 18 br/min (07/04/22 6:45 PM) Temperature [96.8-100.4 DegF] 98.7 DegF (07/04/22 10:35 PM) 98.3 DegF (07/04/22 6:45 PM) Mode of Delivery (Oxygen) Room air (07/04/22 10:35 PM) Room air (07/04/22 6:45 PM) Blood pressure sites Arm, left (07/04/22 10:35 PM) Arm, left (07/04/22 6:45 PM) Temperature Route Oral (07/04/22 10:35 PM) Oral (07/04/22 6:45 PM) Social History Social History Type Response Smoking Status Never smoker entered on: 07/05/16 Sex Patient Care team information Care Team Personnel Name: Yesenia Bailon NP Position: S Associate Professional Member Role: Primary Care Nurse Address: Address: [address] [place] [address] Name: Bobbi Garcia Position: S RN Member Role: Primary Care Nurse Name: Brandy Trejo RN Position: S RN Member Role: Primary Care Nurse Name: Ileana Angel NP Position: [facility]O Associate Professional Member Role: Primary Care Nurse Address: Address: [address] Name: Ileana Mccormack RN Position: S RN Member Role: Primary Care Nurse Name: Liset Mitchell MD Position: Reference Physician Member Role: PCP Address: Address: [address] [place] [address]- [place] Name: Geraldine Fenton RN Position: [facility] [place] Member Role: Primary Care Nurse Name: Lisy Vera MD Position: [facility] ED Medicine MD Member Role: Admitting Physician Address: Address: [address] [place] [address]- Name: Lashell Desai RN Position: [facility] ED RN W/OE and Tasks Member Role: Patient Care Provider Name: Barry Wall Position: [facility] ED TA [facility] Member Role: Bench Precision Assembler Name: Jaye Garcia Position: [facility] Associate Professional Member Role: ED Physician Rig Builder Helper Address: Address: [address] [place] [address]- Care Team Related Persons Name: RACHEAL HICKMAN Address: [address] [address]
--- OUTSIDE RECORDS SUMMARY | 2023-11-03 00:26 | XMS_ITS | Continuity of Care Document ---
Author Organization [facility] Address [address] [place] [address]- Care Team Providers Care High School Tutor Name Role Phone Nichole MALDONADO, Rossana Mccartney Primary Care Physician Encounter [facility] Date(s): 11/28/18 - 03/16/19 [facility] [address] [place] [address]- [facility] Attending Physician: Shea Yo MD Admitting Physician: Shea Yo MD Allergies, Adverse Reactions, Alerts Substance Reaction Severity Status NKA Active Immunizations Given and Recorded Vaccine Date Status [...] in AM, 0 Refills, Maintenance, 08/21/16 16:52:13, [place] Start Date: 08/21/16 Status: Ordered Flovent HFA [...] 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 Refills 11, Maintenance, change every 10 days, (3 each/sensors/month), E11.9, 08/19/18 14:17:16 EDT, Compound Start Date: 08/19/18 Status: Ordered Freestyle Lite Lancets See Instructions, # 400 each, Refills 3, Tot. Refills 3, Maintenance, test blood sugar 4 x day DX E11.9 90 day supply, 04/02/18 15:32:51 EST, Compound Start Date: 04/02/18 Status: Ordered Freestyle Lite Monitor See Instructions, # 1 each, Refills 1, Tot. Refills 1, Maintenance, Use to checkblood sugar 4-5 times daily. E11.65, 08/19/18 14:12:25 EDT, Compound Start Date: 08/19/18 Stop Date: 09/18/18 Status: Ordered FREESTYLE LITE TEST STRIP FREESTYLE LITE TEST STRIP, 0 Refills, Maintenance, 05/22/18 13:48:24 EDT Start Date: 05/22/18 Status: Ordered Freestyle Lite Test Strips See Instructions, # 360 each, Refills 3, Tot. Refills 3, Maintenance, test blood sugar 4x day DX E11.9 90 day supply, 12/25/18 14:08:11 EDT, Compound Start Date: 12/25/18 Status: Ordered FreeStyle Precision Saurabh Test Strips FreeStyle Precision Saurabh Test Strips, See Instructions, # 100 each, Refills 11, Tot. Refills 11, Maintenance, test BG 4x daily if symptomatic, E11.9, 08/19/18 14:17:19 EDT, Compound Start Date: 08/19/18 Status: Ordered GlipiZIDE XL 2.5 mg oral tablet, extended release 1 tablet = 2.5 mg, By Mouth, Daily, # 30 tablet, 0 Refills, Maintenance, 02/14/19 9:22:00 EST, ER Tablet Start Date: 02/14/19 Status: Ordered hydrALAZINE 25 mg oral tablet Refills 0, Maintenance, 05/22/18 13:48:28 EDT Start Date: 05/22/18 Status: Ordered Januvia 100 mg oral tablet 1 tablet = 100 mg, By Mouth, Daily, # 90 tablet, 3 Refills, Maintenance, 02/14/19 9:46:00 EST, Tablet, [facility]/pharmacy #[id number], 150, cm, 02/14/19 9:21:00 EST, Height, 67.5, kg, 08/26/18 12:02:00 EDT, Dry Weight Start Date: 02/14/19 Stop Date: 02/09/20 Status: Ordered Lantus Solostar Pen 100 units/mL subcutaneous solution = 35 units, Subcutaneous Injection, Daily, Take 35 units daily at night. E11.65, # 30 mL, 6 Refills, Maintenance, 08/19/18 14:18:16 EDT, Solution Start Date: 08/19/18 Stop Date: 05/10/20 Status: Ordered Loratadine 10 mg, By Mouth, Daily, Maintenance, 04/11/17 11:24:28 Start Date: 04/11/17 Status: Ordered losartan 100 mg oral tablet By Mouth, Daily, 0 Refills, Maintenance, 01/07/18 15:35:32 EST Start Date: 01/07/18 Status: Ordered metFORMIN 500 mg oral tablet 1 tablet = 500 mg, By Mouth, 2 times a day, # 180 tablet, 0 Refills, Maintenance, 08/19/18 14:21:18EDT, Tablet Start Date: 08/19/18 Stop Date: 11/17/18 Status: Ordered Multivitamin By Mouth, Daily, 0 Refills, Maintenance, 01/07/18 15:37:22 EST Start Date: 01/07/18 Status: Ordered NovoLOG FlexPen 100 units/mL subcutaneous solution = 6 units, Subcutaneous Injection, 3 times a day before meals, for 90 days, Take 6 units 3 times daily at meals. E11.65, # 30 mL, 11 Refills, Hard Stop 05/06/21 14:07:06 EST, 05/22/18 14:07:06 EDT, Solution Start Date: 05/22/18 Stop Date: 05/06/21 Status: Ordered NovoLOG FlexPen 100 units/mL subcutaneous solution = 6 units, Subcutaneous Injection, 3 times a day before meals, Take 6 units 3 times daily at meals.E11.65, # 30 mL, 11 Refills, Maintenance, 05/06/21 14:07:06 EST, Solution Start Date: 05/06/21 Stop Date: 04/20/24 Status: Ordered Pen [place], 32 G x 4 mm BD Ultra Fine III See Instructions, # 360 each, Refills 3, Tot. Refills 3, Maintenance, use 4x day with novolog &lantus E11.65. 90 day supply, 05/22/18 14:07:33 EDT, Compound Start Date: 05/22/18 Status: Ordered PriLOSEC OTC 20 mg oral [...] 16:12:20 EST, Inhaler, Route to Pharmacy Electronically, [id number], [facility]/pharmacy #[id number] Start Date: 01/07/18 Status: Ordered raNITIdine [...] Inform ant Asthma - PFTs 200 at [place] , mild obst defect - sees pulm(Confirmed) Active Diabetes - sees endocrinology(Confirmed) Active Diastolic dysfunction - echo in prior records 08/01/2016 EF 50-55%, grade 2 diastolic dysfunction, mild hypokinesis(Confirmed) Active Acid reflux(Confirmed) Active Hyperlipidemia(Confirmed) Active Hyperlipidemia LDL goal < 100(Confirmed) Active Hypertension(Confirmed) Active ROXIE (obstructive sleep apnea ) - sleep study [facility] 12/28/2008 - in old records(Confirmed) Active Social History Social History Type Response Smoking Status Never smoker entered on: 07/05/16 Sex
--- OUTSIDE RECORDS SUMMARY | 2023-11-03 00:26 | XMS_ITS | Continuity of Care Document ---
Author Organization [facility] Address [address] [place] [address]- Care Team Providers Care Software Designer Name Role Phone Chava Rosen MD, Romina Duffy Primary Care Physician [phone] Encounter [facility] Date(s): 01/29/20 - 02/28/20 [facility] [address] [place] [id number] Attending Physician: Admtr, [id number] Admitting Physician: Admtr, Ar8 Referring Physician: Admtr, Ar8 Allergies, Adverse Reactions, Alerts Substance Reaction Severity [...] in AM, 0 Refills, Maintenance, 08/21/16 16:52:13, [place] Start Date: 08/21/16 Status: Ordered Flovent HFA [...] 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 E11.65. 90-day supply., 01/29/20 9:35:00 EST, Compound, 150, cm, 02/14/19 9:21:00 EST, Height, 67.5, kg, 08/26/18 12:02:00 EDT, Dry Weight Start Date: 01/29/20 Status: Ordered FreeStyle Precision Saurabh Test Strips FreeStyle Precision Saurabh Test Strips, See Instructions, # 100 each, Refills 11, Tot. Refills 11, Maintenance, test BG 4x daily if symptomatic, E11.9, 08/19/18 14:17:19 EDT, Compound Start Date: 08/19/18 Status: Ordered glipiZIDE 5 mg oral tablet 2.5 mg, 0.5, tablet, By Mouth, Daily, # 45 tablet, Refills 2, Tot. Refills 2, Maintenance, :32:00 EST, Route to Pharmacy Electronically, [facility]/pharmacy #[id number], Partial fill upon patient request if the prescription is for a schedule II opioid . Start Date: 01/29/20 Stop Date: 10/25/20 Status: Ordered hydrALAZINE 25 mg oral tablet Refills 0, Maintenance, 05/22/18 13:48:28 EDT Start Date: 05/22/18 Status: Ordered Januvia 100 mg oral tablet 1 tablet = 100 mg, By Mouth, Daily, # 90 tablet, 3 Refills, Maintenance, 02/09/20 9:46:00 EST, Tablet, [facility]/pharmacy #[id number], 150, cm, 02/14/19 9:21:00 EST, Height, 67.5, kg, 08/26/18 12:02:00 EDT, Dry Weight Start Date: 02/09/20 Stop Date: 02/03/21 Status: Ordered Lantus Solostar Pen 100 units/mL subcutaneous solution = 30 units, Subcutaneous Injection, Daily, Take 30 units daily at night. E11.65, # 50 mL, 5 Refills, Maintenance, 02/08/20 15:57:00 EST, Solution, [facility]/pharmacy #[id number], 150, cm, 02/14/19 9:21:00 EST, Height, 67.5, kg, 08/26/18 12:02:00 EDT, Dry Weight Start Date: 02/08/20 Stop Date: 08/01/21 Status: Ordered Loratadine 10 mg, By Mouth, Daily, Maintenance, 04/11/17 11:24:28 Start Date: 04/11/17 Status: Ordered losartan 100 mg oral tablet By Mouth, Daily, 0 Refills, Maintenance, 01/07/18 15:35:32 EST Start Date: 01/07/18 Status: Ordered Multivitamin By Mouth, Daily, 0 Refills, Maintenance, 01/07/18 15:37:22 EST Start Date: 01/07/18 Status: Ordered NovoLOG FlexPen 100 units/mL subcutaneous solution = 6 units, Subcutaneous Injection, 3 times a day before meals, Take 6 units 3 times daily at meals.E11.65, # 30 mL, 11 Refills, Maintenance, 05/06/21 14:07:06 EST, Solution Start Date: 05/06/21 Stop Date: 04/20/24 Status: Ordered Pen [place], 32 G x 4 mm BD Ultra Fine III See Instructions, # 360 each, Refills 3, Tot. Refills 3, Maintenance, use 4x day with novolog &lantus E11.65. 90 day supply, 01/29/20 9:35:00 EST, Compound, 150, cm, 02/14/19 9:21:00 EST, Height, 67.5, kg, 08/26/18 12:02:00 EDT, Dry Weight Start Date: 01/29/20 Status: Ordered PriLOSEC OTC 20 mg oral [...] 16:12:20 EST, Inhaler, Route to Pharmacy Electronically, [id number], [facility]/pharmacy #[id number] Start Date: 01/07/18 Status: Ordered raNITIdine [...] Inform ant Asthma - PFTs 200 at [place] , mild obst defect - sees pulm(Confirmed) Active Diabetes - sees endocrinology(Confirmed) Active Diastolic dysfunction - echo in prior records 08/01/2016 EF 50-55%, grade 2 diastolic dysfunction, mild hypokinesis(Confirmed) Active Acid reflux(Confirmed) Active Hyperlipidemia(Confirmed) Active Hyperlipidemia LDL goal < 100(Confirmed) Active Hypertension(Confirmed) Active ROXIE (obstructive sleep apnea ) - sleep study [facility] 12/28/2008 - in old records(Confirmed) Active Social History Social History Type Response Smoking Status Never smoker entered on: 07/05/16 Sex
--- OUTSIDE RECORDS SUMMARY | 2023-11-03 00:27 | XMS_ITS | Continuity of Care Document ---
Author Organization [facility] Address [address] [place] [id number]- Care Team Providers Care Street Commissioner Name Role Phone Chava Rosen MD, Rosalinda Primary Care Physician Encounter 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 E11.65., # 90 tablet, 3 Refills, Maintenance, 07/20/20 9:06:00 EDT, Tablet, [facility]/pharmacy #[id number], 150, cm, 07/20/20 8:34:00 EDT, Height, 67.5, kg, 08/26/18 12:02:00 EDT, Dry Weight Start Date: 07/20/20 Stop Date: 07/15/21 Status: Ordered Lantus Solostar Pen 100 units/mL subcutaneous solution See Instructions, Take 35 units daily at night. E11.65, # 30 mL, 5 Refills, Maintenance, 07/20/20 9:05:00 EDT, Solution, [facility]/pharmacy #[id number], 150, cm, 07/20/20 8:34:00 EDT, Height, [...] EST Start Date: 01/07/18 Status: Ordered Pen [place], 32 G x 4 mm BD Ultra [...] 16:12:20 EST, Inhaler, Route to Pharmacy Electronically, [id number], [facility]/pharmacy #[id number] Start Date: 01/07/18 Status: Ordered raNITIdine [...] Inform ant Asthma - PFTs 200 at [place] , mild obst defect - sees pulm(Confirmed) Active Diabetes - sees endocrinology(Confirmed) Active Diastolic dysfunction - echo in prior records 08/01/2016 EF 50-55%, grade 2 diastolic dysfunction, mild hypokinesis(Confirmed) Active Acid reflux(Confirmed) Active Hyperlipidemia(Confirmed) Active Hyperlipidemia LDL goal < 100(Confirmed) Active Hypertension(Confirmed) Active ROXIE (obstructive sleep apnea ) - sleep study [facility] 12/28/2008 - in old records(Confirmed) Active Social History Social History Type Response Smoking Status Never smoker entered on: 07/05/16 Sex
--- OUTSIDE RECORDS SUMMARY | 2023-11-03 00:27 | XMS_ITS | Continuity of Care Document ---
Author Organization [facility] Address [address] [place] [address]- Care Team Providers Care Business Continuity Manager Name Role Phone Chava Rosen MD, Romina Duffy Primary Care Physician [phone] Encounter [facility] Date(s): 01/27/20 - 02/26/20 [facility] [address] [place] [id number] Allergies, Adverse Reactions, Alerts Substance Reaction Severity [...] in AM, 0 Refills, Maintenance, 08/21/16 16:52:13, [place] Start Date: 08/21/16 Status: Ordered Flovent HFA [...] use to test BG 2x daily, 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 Start Date: 01/29/20 Stop Date: 10/25/20 Status: Ordered hydrALAZINE 25 mg oral tablet Refills 0, Maintenance, 05/22/18 13:48:28 EDT Start Date: 05/22/18 Status: Ordered Januvia 100 mg oral tablet 1 tablet = 100 mg, By Mouth, Daily, # 90 tablet, 3 Refills, Maintenance, 02/09/20 9:46:00 EST, Tablet, [facility]/pharmacy #[id number], 150, cm, 02/14/19 9:21:00 EST, Height, 67.5, kg, 08/26/18 12:02:00 EDT, Dry Weight Start Date: 02/09/20 Stop Date: 02/03/21 Status: Ordered Lantus Solostar Pen 100 units/mL subcutaneous solution = 30 units, Subcutaneous Injection, Daily, Take 30 units daily at night. E11.65, # 50 mL, 5 Refills, Maintenance, 02/08/20 15:57:00 EST, Solution, [facility]/pharmacy #[id number], 150, cm, 02/14/19 9:21:00 EST, Height, [...] 05/06/21 Stop Date: 04/20/24 Status: Ordered Pen [place], 32 G x 4 mm BD Ultra [...] 16:12:20 EST, Inhaler, Route to Pharmacy Electronically, [id number], [facility]/pharmacy #[id number] Start Date: 01/07/18 Status: Ordered raNITIdine [...] Vomiting, # 10 tablet, 0 Refills, Maintenance, 07/01/19 12:22:40 EDT, Tablet Start Date: 08/26/18 Status: Ordered Problem List Condition Effective Dates Status Health Status Inform ant Asthma - PFTs 200 at [place] , mild obst defect - sees pulm(Confirmed) Active Diabetes - sees endocrinology(Confirmed) Active Diastolic dysfunction - echo in prior records 08/01/2016 EF 50-55%, grade 2 diastolic dysfunction, mild hypokinesis(Confirmed) Active Acid reflux(Confirmed) Active Hyperlipidemia(Confirmed) Active Hyperlipidemia LDL goal < 100(Confirmed) Active Hypertension(Confirmed) Active ROXIE (obstructive sleep apnea ) - sleep study [facility] 12/28/2008 - in old records(Confirmed) Active Social History Social History Type Response Smoking Status Never smoker entered on: 07/05/16 Sex
--- OUTSIDE RECORDS SUMMARY | 2023-11-03 00:27 | XMS_ITS | Continuity of Care Document ---
Author Organization [facility] Address [address] [place] [address]- Care Team Providers Care Cold Mill Inspector Name Role Phone Stephen MALDONADO, Liset Primary Care Physician [id number] Date(s[facility]/03[facility]21 - 06/02/21 [facility] [address] [place], [place] [address] Allergies, Adverse Reactions, Alerts No Known Allergies [...] Maintenance, 08/21/16 16:52:36 EDT, Tablet Start Date: 6/26/17 Status: Ordered Aerochamber See Instructions, # 1 [...] Gm, 11 Refills, Maintenance, 12/15/20 10:14:00 EDT, [facility]/pharmacy #[id number], Partial fill upon patient request if the [...] in AM, 0 Refills, Maintenance, 08/21/16 16:52:13, [place] Start Date: 08/21/16 Status: Ordered Flovent HFA [...] use to test BG 2x daily, 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 E11., 08/19/18 14:12:25 EDT, Compound Start Date: 08/19/18 [...] 3 Refills, Maintenance, 07/20/20 9:06:00 EDT, Tablet, [facility]/pharmacy #[id number], 150, cm, 07/20/20 8:34:00 EDT, Height, 67.5, kg, 08/26/18 12:02:00 EDT, Dry Weight Start Date: 07/20/20 Stop Date: 07/15/21 Status: Ordered Lantus Solostar Pen 100 units/mL subcutaneous solution See Instructions, Take 35 units daily at night. E11.65, # 30 mL, 5 Refills, Maintenance, 07/20/20 9:05:00 EDT, Solution, [facility]/pharmacy #[id number], 150, cm, 07/20/20 8:34:00 EDT, Height, [...] tablet, 11 Refills, Maintenance, 12/15/20 10:15:00 EDT, [facility]/pharmacy #[id number], Partial fill upon patient request if the prescription is for a schedule II opioid drug., 150, cm, 07/20/20 8:34:00 EDT, Height Start Date: 12/15/20 Status: Ordered Multivitamin By Mouth, Daily, 0 Refills, Maintenance, 01/07/18 15:37:22 EST Start Date: 01/07/18 Status: Ordered Pen [place], 32 G x 4 mm BD Ultra [...] 16:12:20 EST, Inhaler, Route to Pharmacy Electronically, [id number], [facility]/pharmacy #[id number] Start Date: 01/07/18 Status: Ordered raNITIdine [...] Inform ant Asthma - PFTs 200 at [place] , mild obst defect - sees pulm(Confirmed) Active Diabetes - sees endocrinology(Confirmed) Active Diastolic dysfunction - echo in prior records 08/01/2016 EF 50-55%, grade 2 diastolic dysfunction, mild hypokinesis(Confirmed) Active Acid reflux(Confirmed) Active Hyperlipidemia(Confirmed) Active Hyperlipidemia LDL goal < 100(Confirmed) Active Hypertension(Confirmed) Active ROXIE (obstructive sleep apnea ) - sleep study [facility] 12/28/2008 - in old records(Confirmed) Active Social History Social History Type Response Smoking Status Never smoker entered on: 07/05/16 Sex
--- OUTSIDE RECORDS SUMMARY | 2023-11-03 00:27 | XMS_ITS | Continuity of Care Document ---
Author Organization [facility] Address [address] [place] [address]- Care Team Providers Care Road Crew Member Name Role Phone Rossana Varela MD Primary Care Physician Encounter [facility] Date(s): 07/16/19 - 07/23/19 [facility] [address] [place] [address] [facility] Attending Physician: Barb MALDONADO, Ibitoro Referring Physician: Rossana Varela MD Allergies, Adverse Reactions, Alerts Substance Reaction [...] in AM, 0 Refills, Maintenance, 08/21/16 16:52:13, [place] Start Date: 08/21/16 Status: Ordered Flovent HFA [...] use to test BG 2x daily, 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 E11.65. 90-day supply., 07/16/19 11:22:00 EDT, Compound, 150, cm, 02/14/19 9:21:00 EST, Height, 67.5, kg, 08/26/18 12:02:00 EDT, Dry Weight Start Date: 07/16/19 Status: Ordered FreeStyle Precision Saurabh Test Strips FreeStyle Precision Saurabh Test Strips, See Instructions, # 100 each, Refills 11, Tot. Refills 11, Maintenance, test BG 4x daily if symptomatic, E11.9, 08/19/18 14:17:19 EDT, Compound Start Date: 08/19/18 Status: Ordered glipiZIDE 2.5 mg oral tablet, extended release 1 tablet = 2.5 mg, By Mouth, Daily, Take 1 tablet daily in the moring. E11.65. 90-day supply., # 90tablet, 1 Refills, Maintenance, 07/16/19 11:24:00 EDT, ER Tablet, [facility]/pharmacy #[id number], 150, cm, 02/14/19 9:21:00 EST, Height, 67.5, kg, 08/26/18 12:02:0... Start Date: 07/16/19 Status: Ordered hydrALAZINE 25 mg oral tablet Refills 0, Maintenance, 05/22/18 13:48:28 EDT Start Date: 05/22/18 Status: Ordered Januvia 100 mg oral tablet 1 tablet = 100 mg, By Mouth, Daily, # 90 tablet, 3 Refills, Maintenance, 02/14/19 9:46:00 EST, Tablet, [facility]/pharmacy #[id number], 150, cm, 02/14/19 9:21:00 EST, Height, [...] 05/06/21 Stop Date: 04/20/24 Status: Ordered Pen [place], 32 G x 4 mm BD Ultra [...] 16:12:20 EST, Inhaler, Route to Pharmacy Electronically, [id number], [facility]/pharmacy #[id number] Start Date: 01/07/18 Status: Ordered raNITIdine [...] Inform ant Asthma - PFTs 200 at [place] , mild obst defect - sees pulm(Confirmed) Active Diabetes - sees endocrinology(Confirmed) Active Diastolic dysfunction - echo in prior records 08/01/2016 EF 50-55%, grade 2 diastolic dysfunction, mild hypokinesis(Confirmed) Active Acid reflux(Confirmed) Active Hyperlipidemia(Confirmed) Active Hyperlipidemia LDL goal < 100(Confirmed) Active Hypertension(Confirmed) Active ROXIE (obstructive sleep apnea ) - sleep study [facility] 12/28/2008 - in old records(Confirmed) Active Social History Social History Type Response Smoking Status Never smoker entered on: 07/05/16 Sex
--- OUTSIDE RECORDS SUMMARY | 2023-11-03 00:27 | XMS_ITS | Continuity of Care Document ---
Author Organization [facility] Address [address] [place] [address]- Care Team Providers Care Stave Planer Tender Name Role Phone Not on Staff, PCP Primary Care Physician Unavail able Encounter [facility] Date(s): 08/03/22 - 02/01/[address] [id number] Encounter Diagnosis Non-ST elevation (NSTEMI) myocardial infarction(Final) - Discharge Disposition: A-D/C Home Attending Physician: Víctor Avery MD Admitting Physician: Víctor Avery MD Referring Physician: Víctor Avery MD Allergies, Adverse Reactions, Alerts Substance Reaction Severity Status lisinopril itching cough Moderate Active Mold cough Active Immunizations Given and Recorded Vaccine Date [...] Gm, 0 Refills, Maintenance, 06/27/22 17:49:00 EDT, [place], Partial fill upon patient request if the prescription is for a schedule II opioid drug. Start Date: 06/27/22 Status: Ordered FreeStyle Aristides reader FreeStyle Aristides reader, See Instructions, # 1 each, Refills 0, Tot. Refills 0, Maintenance, Use to read Aristides Sensor 5x daily, can also use to test BG 2x daily, DxE10.9 [facility]# [id number], 08/19/18 14:17:22 EDT, Compound Start Date: 08/19/18 [...] Maintenance, Check blood sugar 3 times daily. E1165. 90-day supply., 07/20/20 9:07:00 EDT, Compound, 150, [...] mononitrate 30 mg oral tablet, extended release 60 mg, 2, tablet, By Mouth, Daily, # 60 tablet, Refills 0, Tot. Refills 0, Maintenance, 07/12/22 11:19:00 EDT, Route to Pharmacy Electronically, [facility]/pharmacy #[id number], Partial fill upon patient request if the prescription is for a schedule II opioid drug... Start Date: 07/12/22 Status: Ordered Lantus Solostar Pen 100 units/mL [...] opioid drug. Start Date: 06/27/22 Status: Ordered losartan 25 mg oral tablet 25 mg, 1, tablet, By Mouth, Daily, # 30 tablet, Refills 0, Tot. Refills 0, Maintenance, 07/12/22 11:19:00 EDT, Route to Pharmacy Electronically, [facility]/pharmacy #[id number], Partial fill upon patient request if the prescription is for a schedule II opioid drug... Start Date: 07/12/22 Status: Ordered metoprolol 25 mg oral tablet, extended release 25 mg, 1, tablet, By Mouth, Daily, # 30 tablet, Refills 0, Tot. Refills 0, Maintenance, 07/04/22 10:10:00 EDT, Route to Pharmacy Electronically, [facility], Partial fill upon patient request [...] 0 Refills, Maintenance, 07/04/22 9:40:00 EDT, Tablet, [facility], Partial fill upon patient request if [...] drug. Start Date: 06/27/22 Status: Ordered Pen [place], 32 G x 4 mm BD Ultra [...] 11 Refills, Maintenance, 07/04/22 9:39:00 EDT, Tablet, [facility], Partial fill upon patient request if the prescription is for aschedule II opioid drug., 150, cm, 06/27/22 13:32:0... Start Date: 07/04/22 Status: Ordered Problem List Condition Confirmation Course Effective Dates Status H ealth Status Informant Asthma - PFTs 200 at [place], mild obst defect - sees pulm Confirmed [...] ROXIE (obstructive sleep apnea) - sleep study [facility] 12/28/2008 - in old records Confirmed Active Social History Social History Type Response Smoking Status Never smoker entered on: 07/05/16 Sex Note * Event Display: Cardiac Rehab Telemetry Report Authored Date: * Event Display: Cardiac Rehab Telemetry Report Authored Date: * Event Display: Cardiac Rehab Telemetry Report Authored Date: Patient Care team information Care Team Personnel Name: Antionette Zaragoza RN Position: [facility] RN Member Role: Primary Care Nurse Name: Yesenia Bailon NP Position: [facility] Associate Professional Member Role: Primary Care Nurse Address: Address: [address] [place] [address]- [place] Name: Brandy Trejo RN Position: [facility] RN Member Role: Primary Care Nurse Name: Ileana Angel NP Position: [facility] PCO Associate Professional Member Role: Primary Care Nurse Address: Address: [address] [place] [address]- [place] Name: Not on Staff, PCP Position: [facility] Physician (General Medicine) Member Role: PCP Name: Heidi Cerna RN Position: [facility] RN Member Role: Primary Care Nurse Name: Ileana Mccormack RN Position: [facility] RN Member Role: Primary Care Nurse Name: Geraldine Fenton RN Position: [facility] Soil Analyst Member Role: Primary Care Nurse Care Team Related Persons Name: JONO HICKMAN Name: RACHEAL HICKMAN Address: home [address] [place] [address]
--- OUTSIDE RECORDS SUMMARY | 2023-11-03 00:27 | XMS_ITS | Continuity of Care Document ---
Author Organization [facility] Address [address] [place] [address]- Care Team Providers Care Middleware Engineer Name Role Phone Chava Rosen MD, Romina Duffy Primary Care Physician Encounter [facility] Date(s): 07/26/19 - 11/23/19 [facility] [address] [place] [address] [facility] Attending Physician: Shea Yo MD Admitting Physician: Shea Yo MD Referring Physician: Rossana Varela MD Allergies, Adverse [...] in AM, 0 Refills, Maintenance, 08/21/16 16:52:13, [place] Start Date: 08/21/16 Status: Ordered Flovent HFA [...] use to test BG 2x daily, DxE10.[address] [facility]# [id number], 08/19/18 14:17:22 EDT, Compound Start Date: 08/19/18 [...] Refills, Maintenance, 07/16/19 11:24:00 EDT, ER Tablet, [facility]/pharmacy #[id number], 150, cm, 02/14/19 9:21:00 EST, Height, 67.5, kg, 08/26/18 12:02:0... Start Date: 07/16/19 Status: Ordered hydrALAZINE 25 mg oral tablet Refills 0, Maintenance, 05/22/18 13:48:28 EDT Start Date: 05/22/18 Status: Ordered Januvia 100 mg oral tablet 1 tablet = 100 mg, By Mouth, Daily, # 90 tablet, 3 Refills, Maintenance, 02/14/19 9:46:00 EST, Tablet, [facility]/pharmacy #[id number], 150, cm, 02/14/19 9:21:00 EST, Height, 67.5, kg, 08/26/18 12:02:00 EDT, Dry Weight Start Date: 02/14/19 Stop Date: 02/09/20 Status: Ordered Lantus Solostar Pen 100 units/mL subcutaneous solution = 30 units, Subcutaneous Injection, Daily, Take 30 units daily at night. E11.65, # 30 mL, 5 Refills, Maintenance, 08/12/19 15:57:00 EDT, Solution, [facility]/pharmacy #[id number], 150, cm, 02/14/19 9:21:00 EST, Height, 67.5, kg, 08/26/18 12:02:00 EDT, Dry Weight Start Date: 08/12/19 Stop Date: 02/08/20 Status: Ordered Loratadine 10 mg, By Mouth, [...] 05/06/21 Stop Date: 04/20/24 Status: Ordered Pen [place], 32 G x 4 mm BD Ultra [...] 16:12:20 EST, Inhaler, Route to Pharmacy Electronically, [id number], [facility]/pharmacy #[id number] Start Date: 01/07/18 Status: [...] Inform ant Asthma - PFTs 200 at [place] , mild obst defect - sees pulm(Confirmed) Active Diabetes - sees endocrinology(Confirmed) Active Diastolic dysfunction - echo in prior records 08/01/2016 EF 50-55%, grade 2 diastolic dysfunction, mild hypokinesis(Confirmed) Active Acid reflux(Confirmed) Active Hyperlipidemia(Confirmed) Active Hyperlipidemia LDL goal < 100(Confirmed) Active Hypertension(Confirmed) Active ROXIE (obstructive sleep apnea ) - sleep study [facility] 12/28/2008 - in old records(Confirmed) Active Social History Social History Type Response Smoking Status Never smoker entered on: 07/05/16 Sex
--- OUTSIDE RECORDS SUMMARY | 2023-11-03 00:27 | XMS_ITS | Continuity of Care Document ---
Author Organization [facility] Address [address] [place] [address]- Care Team Providers Care Razor Sharpener Name Role Phone Liset Mitchell MD Primary Care Physician Encounter [facility] Date(s): 09/01/20 - 12/30/20 [facility] [address] [place] [id number] Attending Physician: Autumn Day MD Admitting Physician: Autumn Day MD Allergies, Adverse Reactions, Alerts Substance Reaction [...] Gm, 11 Refills, Maintenance, 12/15/20 10:14:00 EDT, [facility]/pharmacy #[id number], Partial fill upon patient request if the [...] in AM, 0 Refills, Maintenance, 08/21/16 16:52:13, [place] Start Date: 08/21/16 Status: Ordered Flovent HFA [...] use to test BG 2x daily, DxE10.9 [facility]# [id number], 08/19/18 14:17:22 EDT, [place] Start Date: 08/19/18 [...] Maintenance, Check blood sugar 3 times daily. E11. 90-day supply., 07/20/20 9:07:00 EDT, Compound, 150, [...] 3 Refills, Maintenance, 07/20/20 9:06:00 EDT, Tablet, [facility]/pharmacy #[id number], 150, cm, 07/20/20 8:34:00 EDT, Height, 67.5, kg, 08/26/18 12:02:00 EDT, Dry Weight Start Date: 07/20/20 Stop Date: 07/15/21 Status: Ordered Lantus Solostar Pen 100 units/mL subcutaneous solution See Instructions, Take 35 units daily at night. E11.65, # 30 mL, 5 Refills, Maintenance, 07/20/20 9:05:00 EDT, Solution, [facility]/pharmacy #[id number], 150, cm, 07/20/20 8:34:00 EDT, [...] tablet, 11 Refills, Maintenance, 12/15/20 10:15:00 EDT, [facility]/pharmacy #[id number], Partial fill upon patient request if the prescription is for a schedule II opioid drug., 150, cm, 07/20/20 8:34:00 EDT, Height Start Date: 12/15/20 Status: Ordered Multivitamin By Mouth, Daily, 0 Refills, Maintenance, 01/07/18 15:37:22 EST Start Date: 01/07/18 Status: Ordered Pen [place], 32 G x 4 mm BD Ultra [...] 16:12:20 EST, Inhaler, Route to Pharmacy Electronically, [id number], [facility]/pharmacy #[id number] Start Date: 01/07/18 Status: Ordered [...] Inform ant Asthma - PFTs 200 at [place] , mild obst defect - sees pulm(Confirmed) Active Diabetes - sees endocrinology(Confirmed) Active Diastolic dysfunction - echo in prior records 08/01/2016 EF 50-55%, grade 2 diastolic dysfunction, mild hypokinesis(Confirmed) Active Acid reflux(Confirmed) Active Hyperlipidemia(Confirmed) Active Hyperlipidemia LDL goal < 100(Confirmed) Active Hypertension(Confirmed) Active ROXIE (obstructive sleep apnea ) - sleep study [facility] 12/28/2008 - in old records(Confirmed) Active Social History Social History Type Response Smoking Status Never smoker entered on: 07/05/16 Sex
--- OUTSIDE RECORDS SUMMARY | 2023-11-03 00:27 | XMS_ITS | Continuity of Care Document ---
Author Organization [facility] Address [address] [place] [address]- Care Team Providers Care Packaging Sales Representative Name Role Phone Chava Rosen MD, Romina Duffy Primary Care Physician En[place] [facility] Date(s): 02/02/20 - 03/03/20 [facility] [address] [place] [id number] Allergies, Adverse Reactions, Alerts Substance Reaction [...] in AM, 0 Refills, Maintenance, 08/21/16 16:52:13, [place] Start Date: 08/21/16 Status: Ordered Flovent HFA [...] use to test BG 2x daily, DxE10.9 [facility]# [id number], 08/19/18 14:17:22 EDT, Compound Start Date: 08/19/18 [...] Maintenance, :32:00 EST, Route to Pharmacy Electronically, [facility]/pharmacy #[id number], Partial fill upon patient request if the prescription is for a schedule II opioid . Start Date: 01/29/20 Stop Date: 10/25/20 Status: Ordered hydrALAZINE 25 mg oral tablet Refills 0, Maintenance, 05/22/18 13:48:28 EDT Start Date: 05/22/18 Status: Ordered Januvia 100 mg oral tablet 1 tablet = 100 mg, By Mouth, Daily, # 90 tablet, 3 Refills, Maintenance, 02/09/20 9:46:00 EST, Tablet, [facility]/pharmacy #[id number], 150, cm, 02/14/19 9:21:00 EST, Height, 67.5, kg, 08/26/18 12:02:00 EDT, Dry Weight Start Date: 02/09/20 Stop Date: 02/03/21 Status: Ordered Lantus Solostar Pen 100 units/mL subcutaneous solution = 30 units, Subcutaneous Injection, Daily, Take 30 units daily at night. E11.65, # 50 mL, 5 Refills, Maintenance, 02/08/20 15:57:00 EST, Solution, [facility]/pharmacy #[id number], 150, cm, 02/14/19 9:21:00 EST, [...] 05/06/21 Stop Date: 04/20/24 Status: Ordered Pen [place], 32 G x 4 mm BD Ultra [...] 16:12:20 EST, Inhaler, Route to Pharmacy Electronically, [id number], [facility]/pharmacy #[id number] Start Date: 01/07/18 Status: Ordered [...] Inform ant Asthma - PFTs 200 at [place] , mild obst defect - sees pulm(Confirmed) Active Diabetes - sees endocrinology(Confirmed) Active Diastolic dysfunction - echo in prior records 08/01/2016 EF 50-55%, grade 2 diastolic dysfunction, mild hypokinesis(Confirmed) Active Acid reflux(Confirmed) Active Hyperlipidemia(Confirmed) Active Hyperlipidemia LDL goal < 100(Confirmed) Active Hypertension(Confirmed) Active ROXIE (obstructive sleep apnea ) - sleep study [facility] 12/28/2008 - in old records(Confirmed) Active Social History Social History Type Response Smoking Status Never smoker entered on: 07/05/16 Sex
--- OUTSIDE RECORDS SUMMARY | 2023-11-03 00:27 | XMS_ITS | Continuity of Care Document ---
Author Organization [facility] Address [address] [place] [address]- Care Team Providers Care Loss Claim Clerk Name Role Phone Liset Mitchell MD Primary Care Physician [place] [facility] [place]s): 06/05/22 - 07/05/22 [facility] [address] [place] [address]- Attending Physician: Rah Steve Admitting Physician: Admtr, Rah Referring Physician: Admtr, Ar8 Allergies, Adverse Reactions, Alerts No Known Medication [...] Gm, 0 Refills, Maintenance, 06/27/22 17:49:00 EDT, [place], Partial fill upon patient request if the prescription is for a schedule II opioid drug. Start Date: 06/27/22 Status: Ordered FreeStyle Aristides reader FreeStyle Aristides reader, See Instructions, # 1 each, Refills 0, Tot. Refills 0, Maintenance, Use to read Aristides Sensor 5x daily, can also use to test BG 2x daily, DxE10.9 [facility]# [id number], 08/19/18 14:17:22 EDT, Compound Start Date: 08/19/18 [...] Refills, Maintenance, 07/04/22 9:38:00 EDT, ER Tablet, [facility], Partial fill upon patient request if [...] 07/04/22 9:38:00 EDT, Route to Pharmacy Electronically, [facility], Partial fill upon patient request if the prescription is for a schedule II opioid... Start Date: 07/04/22 Status: Ordered metoprolol 25 mg oral tablet, extended release 25 mg, 1, tablet, By Mouth, Daily, # 30 tablet, Refills 0, Tot. Refills 0, Maintenance, 07/04/22 10:10:00 EDT, Route to Pharmacy Electronically, [facility], Partial fill upon patient request if [...] 0 Refills, Maintenance, 07/04/22 9:40:00 EDT, Tablet, [facility], Partial fill upon patient request [...] drug. Start Date: 06/27/22 Status: Ordered Pen [place], 32 G x 4 mm BD Ultra [...] 11 Refills, Maintenance, 07/04/22 9:39:00 EDT, Tablet, [facility], Partial fill upon patient request if the prescription is for aschedule II opioid drug., 150, cm, 06/27/22 13:32:0... Start Date: 07/04/22 Status: Ordered Problem List Condition Confirmation Course Effective Dates Status H ealth Status Informant Asthma - PFTs 200 at [place], mild obst defect - sees pulm Confirmed [...] ROXIE (obstructive sleep apnea) - sleep study [facility] 12/28/2008 - in old records Confirmed Active Social History Social History Type Response Smoking Status Never smoker entered on: 07/05/16 Sex Patient Care team information Care Team Personnel Name: Yesenia Bailon NP Position: [facility] Associate Professional Member Role: Primary Care Nurse Address: Address: [address] [facility] [place] [address]- [place] Name: Bobbi Garica Position: [facility] RN Member Role: Primary Care Nurse Name: Brandy Trejo RN Position: [facility] RN Member Role: Primary Care Nurse Name: Ileana Angel NP Position: [facility] PCO Associate Professional Member Role: Primary Care Nurse Address: Address: [address] [place] [address]- [place] Name: Ileana Mccormack RN Position: [facility] RN Member Role: Primary Care Nurse Name: Liset Mitchell MD Position: Reference Physician Member Role: PCP Address: Address: [address] [place] [address]- [place] Name: Geraldine Fenton RN Position: [facility] Design Engineering Intern Member Role: Primary Care Nurse Care Team Related Persons Name: RACHEAL HICKMAN Address: home [address] [place] [address]
--- OUTSIDE RECORDS SUMMARY | 2023-11-03 00:27 | XMS_ITS | Continuity of Care Document ---
Author Organization [facility] Address [address] [place] [address]- Care Team Providers Care Machine Molder Squeeze Name Role Phone Stephen MALDONADO, Liset Primary Care Physician Encounter [facility] [place] Date(s): 01/06/21 - 02/05/21 [facility] [address] [place] [id number] Allergies, Adverse Reactions, Alerts Substance [...] Gm, 11 Refills, Maintenance, 12/15/20 10:14:00 EDT, [facility]/pharmacy #[id number], Partial fill upon patient request if the [...] in AM, 0 Refills, Maintenance, 08/21/16 16:52:13, [place] Start Date: 08/21/16 Status: Ordered Flovent HFA [...] BG 2x daily, DxE10.9 [facility]# [id number], 08/19/18 14:17:22 EDT, Compound Start Date: 08/19/18 [...] 3 Refills, Maintenance, 07/20/20 9:06:00 EDT, Tablet, [facility]/pharmacy #[id number], 150, cm, 07/20/20 8:34:00 EDT, Height, 67.5, kg, 08/26/18 12:02:00 EDT, Dry Weight Start Date: 07/20/20 Stop Date: 07/15/21 Status: Ordered Lantus Solostar Pen 100 units/mL subcutaneous solution See Instructions, Take 35 units daily at night. E11.65, # 30 mL, 5 Refills, Maintenance, 07/20/20 9:05:00 EDT, Solution, [facility]/pharmacy #[id number], 150, cm, 07/20/20 8:34:00 EDT, Height, [...] tablet, 11 Refills, Maintenance, 12/15/20 10:15:00 EDT, [facility]/pharmacy #[id number], Partial fill upon patient request if the prescription is for a schedule II opioid drug., 150, cm, 07/20/20 8:34:00 EDT, Height Start Date: 12/15/20 Status: Ordered Multivitamin By Mouth, Daily, 0 Refills, Maintenance, 01/07/18 15:37:22 EST Start Date: 01/07/18 Status: Ordered Pen [place], 32 G x 4 mm BD Ultra [...] 16:12:20 EST, Inhaler, Route to Pharmacy Electronically, [id number], [facility]/pharmacy #[id number] Start Date: 01/07/18 [...] Inform ant Asthma - PFTs 200 at [place] , mild obst defect - sees pulm(Confirmed) Active Diabetes - sees endocrinology(Confirmed) Active Diastolic dysfunction - echo in prior records 08/01/2016 EF 50-55%, grade 2 diastolic dysfunction, mild hypokinesis(Confirmed) Active Acid reflux(Confirmed) Active Hyperlipidemia(Confirmed) Active Hyperlipidemia LDL goal < 100(Confirmed) Active Hypertension(Confirmed) Active ROXIE (obstructive sleep apnea ) - sleep study [facility] 12/28/2008 - in old records(Confirmed) Active Social History Social History Type Response Smoking Status Never smoker entered on: 07/05/16 Sex
--- OUTSIDE RECORDS SUMMARY | 2023-11-03 00:27 | XMS_ITS | Continuity of Care Document ---
Author Organization [facility] Patrick chao's [facility] Address [address] [place] [address]- Care Team Providers Care Rotoformer Backtender Name Role Phone Stephen MALDONADO, Liset Primary Care Physician Encounter [facility] [place] Date(s): 12/15/20 - 01/14/[address] [facility] [employer] [facility] [address] [place], [place] [address] Attending Physician: AdmRah bryson Admitting Physician: AdmtrRah Referring Physician: Admtr, Ar8 Allergies, Adverse Reactions, [...] Gm, 11 Refills, Maintenance, 12/15/20 10:14:00 EDT, [facility]/pharmacy #[id number], Partial fill upon patient request if the [...] in AM, 0 Refills, Maintenance, 08/21/16 16:52:13, [place] Start Date: 08/21/16 Status: Ordered Flovent HFA [...] use to test BG 2x daily, DxE10.9 [facility]# [id number], 08/19/18 14:17:22 EDT, Compound Start Date: 08/19/18 [...] to check blood sugar 3 times daily. E1165. 90-day supply., 07/16/19 11:23:00 EDT, Compound, 150, [...] 3 Refills, Maintenance, 07/20/20 9:06:00 EDT, Tablet, [facility]/pharmacy #[id number], 150, cm, 07/20/20 8:34:00 EDT, Height, 67.5, kg, 08/26/18 12:02:00 EDT, Dry Weight Start Date: 07/20/20 Stop Date: 07/15/21 Status: Ordered Lantus Solostar Pen 100 units/mL subcutaneous solution See Instructions, Take 35 units daily at night. E11.65, # 30 mL, 5 Refills, Maintenance, 07/20/20 9:05:00 EDT, Solution, [facility]/pharmacy #[id number], 150, cm, 07/20/20 8:34:00 EDT, [...] tablet, 11 Refills, Maintenance, 12/15/20 10:15:00 EDT, [facility]/pharmacy #[id number], Partial fill upon patient request if the prescription is for a schedule II opioid drug., 150, cm, 07/20/20 8:34:00 EDT, Height Start Date: 12/15/20 Status: Ordered Multivitamin By Mouth, Daily, 0 Refills, Maintenance, 01/07/18 15:37:22 EST Start Date: 01/07/18 Status: Ordered Pen [place], 32 G x 4 mm BD Ultra [...] 16:12:20 EST, Inhaler, Route to Pharmacy Electronically, [id number], [facility]/pharmacy #[id number] Start Date: 01/07/18 Status: Ordered [...] Inform ant Asthma - PFTs 200 at [place] , mild obst defect - sees pulm(Confirmed) Active Diabetes - sees endocrinology(Confirmed) Active Diastolic dysfunction - echo in prior records 08/01/2016 EF 50-55%, grade 2 diastolic dysfunction, mild hypokinesis(Confirmed) Active Acid reflux(Confirmed) Active Hyperlipidemia(Confirmed) Active Hyperlipidemia LDL goal < 100(Confirmed) Active Hypertension(Confirmed) Active ROXIE (obstructive sleep apnea ) - sleep study [facility] 12/28/2008 - in old records(Confirmed) Active Social History Social History Type Response Smoking Status Never smoker entered on: 07/05/16 Sex
--- OUTSIDE RECORDS SUMMARY | 2023-11-03 00:27 | XMS_ITS | Continuity of Care Document ---
Author Organization [facility] Diabetes Address [address] [place] [address]- Care Team Providers Care Fire Department Marine Engineer Name Role Phone Chava Rosen MD, Rossana Duffy Primary Care Physician [phone] Encounter [facility] [place](s): 03/15/20 - 08/04/20 [facility] Diabetes [address] [place] [address] Attending Physician: Shea Yo MD Admitting Physician: Shea Yo MD Referring Physician: Romina Razo MD Allergies, Adverse Reactions, Alerts Substance Reaction [...] in AM, 0 Refills, Maintenance, 08/21/16 16:52:13, [place] Start Date: 08/21/16 Status: Ordered Flovent HFA [...] 2x daily, DxE10.9 [facility]# [id number], 08/19/18 14:17:22 EDT, Compound Start Date: 08/19/18 [...] 5 Refills, Maintenance, 07/20/20 9:05:00 EDT, Solution, [id number], 150, cm, 07/20/20 8:34:00 EDT, Height, [...] EST Start Date: 01/07/18 Status: Ordered Pen [place], 32 G x 4 mm BD Ultra [...] 16:12:20 EST, Inhaler, Route to Pharmacy Electronically, [id number], [facility]/pharmacy #[id number] Start Date: 01/07/18 [...] Inform ant Asthma - PFTs 200 at [place] , mild obst defect - sees pulm(Confirmed) Active Diabetes - sees endocrinology(Confirmed) Active Diastolic dysfunction - echo in prior records 08/01/2016 EF 50-55%, grade 2 diastolic dysfunction, mild hypokinesis(Confirmed) Active Acid reflux(Confirmed) Active Hyperlipidemia(Confirmed) Active Hyperlipidemia LDL goal < 100(Confirmed) Active Hypertension(Confirmed) Active ROXIE (obstructive sleep apnea ) - sleep study [facility] 12/28/2008 - in old records(Confirmed) Active Social History Social History Type Response Smoking Status Never smoker entered on: 07/05/16 Sex
--- OUTSIDE RECORDS SUMMARY | 2023-11-03 00:27 | XMS_ITS | Continuity of Care Document ---
Author Organization [facility] ter Address [address] [place] [id number]- Care Team Providers Care Director Of Campus Recreation Name Role Phone Liset Mtichell MD Primary Care Physician Encounter [facility] Date(s): 07/07/22 - 07/12/[address] [id number] Encounter Diagnosis Chest pain(Final) - 07/07/22 Discharge Disposition: A-D/C Home Attending Physician: Maia Ace MD Admitting Physician: Samuel Rahman MD Referring Physician: Not on Staff, Referring MD Allergies, Adverse Reactions, Alerts Substance Reaction [...] Gm, 0 Refills, Maintenance, 06/27/22 17:49:00 EDT, [place], Partial fill upon patient request if the prescription is for a schedule II opioid drug. Start Date: 06/27/22 Status: Ordered FreeStyle Aristides reader FreeStyle Aristides reader, See Instructions, # 1 each, Refills 0, Tot. Refills 0, Maintenance, Use to read Aristides Sensor 5x daily, can also use to test BG 2x daily, DxE10.9 [facility]# [id number], 08/19/18 14:17:22 EDT, Compound Start Date: 08/19/18 [...] device to prick finger for glucose testing. E1165, 12/31/19 13:35:00 EST, Supply, 150, cm, 02/14/19 [...] Use to checkblood sugar 4-5 times daily. E11, 08/19/18 14:12:25 EDT, Compound Start Date: 08/19/18 [...] 07/12/22 11:19:00 EDT, Route to Pharmacy Electronically, [facility]/pharmacy #[id number], Partial fill upon patient request [...] 07/12/22 11:19:00 EDT, Route to Pharmacy Electronically, [facility]/pharmacy #[id number], Partial fill upon patient request if the prescription is for a schedule II opioid drug... Start Date: 07/12/22 Status: Ordered metoprolol 25 mg oral tablet, extended release 25 mg, 1, tablet, By Mouth, Daily, # 30 tablet, Refills 0, Tot. Refills 0, Maintenance, 07/04/22 10:10:00 EDT, Route to Pharmacy Electronically, [facility], Partial fill upon patient request if the prescription is for a schedule II opioi... Start Date: 07/04/22 Status: Ordered metoprolol 25 mg oral tablet, extended release 25 mg, XL Tablet, By Mouth, 07/12/22 9:00:00 EDT Start Date: 07/12/22 Stop Date: 07/12/22 Status: Completed Myrbetriq 25 mg oral tablet, extended release [...] 0 Refills, Maintenance, 07/04/22 9:40:00 EDT, Tablet, [facility], Partial fill upon patient request if [...] drug. Start Date: 06/27/22 Status: Ordered Pen Ramsey, 32 G x 4 mm BD Ultra [...] 11 Refills, Maintenance, 07/04/22 9:39:00 EDT, Tablet, [facility], Partial fill upon patient request if the prescription is for aschedule II opioid drug., 150, cm, 06/27/22 13:32:0... Start Date: 07/04/22 Status: Ordered Problem List Condition Confirmation Course Effective Dates Status H ealth Status Informant Asthma - PFTs 200 at [facility], mild obst defect - sees pulm Confirmed [...] ROXIE (obstructive sleep apnea) - sleep study [facility] 12/28/2008 - in old records Confirmed Active Results Radiology Reports * Exam Date Time Procedure Performing Provider Status 07/07/22 7:19 PM Chest 2 Views Frontal and Lat Mireya Peoples; Auth (Verified) Notes: (Chest 2 Views Frontal and Lat) Reason For Exam: Angina RESULT: Chest 2 Views Frontal and Lat Chest 2 Views Frontal and Lat Hx of Present Illness: Pt presents from home c o hypotension R side chest shoulder pain. Pt had stent placed on Sunday.; Reason: Angina; Clinical Question(s): Pneumonia COMPARISON: 04/07/2018 FINDINGS: LINES AND TUBES: None. LUNGS AND PLEURA: Clear lungs. Normal pulmonary vascularity. No pleural effusion. No pneumothorax. HEART, MEDIASTINUM AND MICHELINE: Heart is normal in size. Normal mediastinal and hilar contour. BONES AND SOFT TISSUES: No acute abnormality. IMPRESSION: No acute abnormality. WSN: [id number] Ordering Physician: Jimena Pathak Dictated By: Alf Jack MD Dictated Date/Time: 07/07/22 7:29 pm Reviewed By: Alf Jack MD Signed By: Alf Jack MD Signed Date/Time: 07/07/22 7:29 pm Transcribed By: BEAR Transcribed Date/Time: 07/07/22 7:28 pm Vital Signs Most recent to oldest [Reference Range]: 1 2 3 Height 146 cm (07/12/22 7:38 AM) 146 cm (07/12/22 1:13 AM) 146 cm (07/11/22 7:12 PM) Weight 67.9 kg (07/12/22 4:55 AM) 68.3 kg (07/11/22 4:33 AM) 67.7 kg (07/10/22 5:09 AM) Oxygen Saturation [94-100 %] 93 % *L* (07/12/22 11:45 AM) 97 % (07/12/22 7:38 AM) 97 % (07/12/22 1:13 AM) Pulse Rate [55-90 bpm] 91 bpm *H* (07/12/22 11:45 AM) 70 bpm (07/12/22 8:25 AM) 70 bpm (07/12/22 7:38 AM) Blood Pressure [90-138/55-84 mm Hg] 123/49mm Hg (07/12/22 11:45 AM) 147/61mm Hg *H* (07/12/22 8:25 AM) 147/61mm Hg *H* (07/12/22 7:38 AM) Respiratory Rate [16-30 br/min] 23 br/min (07/12/22 11:45 AM) 18 br/min (07/12/22 7:38 AM) 20 br/min (07/12/22 1:13 AM) Temperature [96.8-100.4 DegF] 98 DegF (07/12/22 7:38 AM) 97.6 DegF (07/12/22 1:13 AM) 97.6 DegF (07/11/22 7:12 PM) Liters per Minute 2 L/min (07/10/22 1:00 PM) 2 L/min (07/10/22 7:21 AM) Mode of Delivery (Oxygen) Room air (07/12/22 7:38 AM) Room air (07/12/22 1:13 AM) Room air (07/11/22 7:12 PM) Blood pressure sites Arm, left (07/12/22 7:38 AM) Arm, right (07/12/22 1:13 AM) Arm, right (07/11/22 7:12 PM) Temperature Route Oral (07/12/22 7:38 AM) Temporal (07/12/22 1:13 AM) Temporal (07/11/22 7:12 PM) Weight Obtained Via Bed scale (07/12/22 4:55 AM) Bed scale (07/11/22 4:33 AM) Bed scale (07/10/22 5:09 AM) Social History Social History Type Response Smoking Status Never smoker entered on: 07/05/16 Sex Cardiac catheterization study * Event Display: Cardiac Science Technicians Report Authored Date: * Event Display: Cardiac Science Technicians Report Authored Date: Cardiac Diagnostic + PCI Report Demographics Patient Name GEOFFREY SUTTON Gender Female [employer] Room Number [id number] Height 57.48 inches Date of 1945 Weight 150.58 pounds Age 76 year(s) BSA 1.6 m2 Accession Number [id number] BMI 32.04 kg/m2 Referring Physician Matthew Us MD Date of Study 07/11/2022 Víctor Avery MD Performing Physician Víctor Avery MD Fellow Ge Duval Interventional Physician Víctor Avery MD Procedure Procedure Type Diagnostic procedure:Coronary Angiography with [facility] PCI procedure:Coronary IVUS, Stent (Drug Eluting) Miscellaneous:ACT , ULTRASOUND GUIDANCE [facility] Diagnostic Catheterization Status:Urgent [facility] Interventional Catheterization Status:Urgent Indications Indications: NSTEMI. Clinical History [facility] Risk Factors The patient risk factors include:treated hypercholesterolemia, treated hypertension and dyslipidemia. Additional Clinical History:76-year-old female with hypertension, hyperlipidemia, gastroesophageal reflux disease, asthma, diabetes mellitus type 2 who presented initially at [facility] with NSTEMI and underwent a cardiac catheterization last week showing multivessel coronary artery disease. She is referred for evaluation by cardiothoracic surgery for CABG but patient did not want to proceed with CABG considering her age and other comorbidities. Patient had PCI of the RCA last week and was discharged home with a plan for staged PCI in the near future but came back to the hospital with chest pain. She is scheduled for left heart catheterization with coronary angiogram with staged PCI of the LAD and OM2. No contrast allergy and normal renal function. Procedure Data Procedure Date Date: 07/11/2022Start: 12:07End: 14:52 The procedure was explained in detail to the patient. Risks, complications and alternative treatments were reviewed. Written consent was obtained. Entry Locations - Retrograde Percutaneous access was performed through the Right Femoral artery (Primary location). A 6 Fr sheath was inserted. Hemostasis was successfully obtained using Manual Compression. - Retrograde Percutaneous access was performed through the Right Femoral artery. A 6 Fr sheath was inserted. Hemostasis was successfully obtained using Perclose ProGlide. Procedure Medications - Versed (Midazolam) I.V. 1 mg. - Fentanyl I.V. 50 mcg. - Oxygen NC 2 l/min. - Lidocaine 2% S.C. Right groin 5 ml. - Lidocaine 2% S.C. Right groin 5 ml. - Heparin I.V. 9000 units. - Heparin I.V. 3000 units. - Versed (Midazolam) I.V. 0.5 mg. - Fentanyl I.V. 25 mcg. - Nitroglycerin I.A. 200 mcg. - Nitroglycerin I.A. 200 mcg. - Versed (Midazolam) I.V. 1 mg. - Fentanyl I.V. 25 mcg. - Fentanyl I.V. 25 mcg. Sedation: My intra-service moderate sedation time was: from 1235 to 1450. Refer to procedural log for detailed chronological information. Contrast Material - Omnipaque 125 ml Diagnostic Catheters - A6F EBU 3.75 LAUNCHER GUIDING CATHETERwas used for: PCI. - A3.5Pb784dy OPTICROSS 6 HD CORONARY IMAGING CATHETERwas used for: IVUS. - A6F JR 4.0 DxTERITY DIAGNOSTIC CATHETERwas used for: Right coronary angiography. Fluoroscopy Time: PCI: 25:50 minutes. Total: 25:50 minutes. Fluoroscopy Dose: PCI: 357 mGy. Total: 357 mGy. Dose Area Product:PCI: 46307 mGy/cm2. Total: 21897 mGy/cm2. Dose Area Product:PCI: 3700 ??Gy/m2. Total: 3700 ??Gy/m2. Procedure Narrative Patient is seen and examined in the Science Technicians. The description of the procedure and the risk and benefit including bleeding, radial spasm, contrast-induced nephropathy, AK, stroke, , angioplasty related dissection or perforation were mentioned to the patient. The patient understood and agreed to proceed with the procedure. Right common femoral artery access was obtained under ultrasonographic guidance and a 6 Mauritan[place] sheath was placed. Additional heparin was given and ACT was achieved more than 250 seconds. An EBU 3.5 guide catheter was engaged and a [place] blue coronary wire was advanced into the distal LAD. We tried to perform IVUS but the IVUS could not be advanced beyond the lesion in the mid LAD. CV predilated the lesion with 2.5 mm X50 millimeter semicompliant balloon and performed to inflation. During the second inflation, the balloon ruptured. Then we performed IVUS again which showed 360 degree calcium at the lesion. So we used a 2.5 mm X12 millimeter Shockwave C2 IVL for atherectomy. Then we placed a 3.0 mm X 16 mm Synergy ITZ and postdilated with 3.0 mm X12 millimeter NC balloon. Then we redirected the wire into the OM 2 and predilated the lesion with 2.0 mm X50 millimeter semicompliant balloon. Then we placed a 2.25 mm X 20 mm Synergy ITZ and postdilated with 2.25 mm X12 millimeter NC balloon. The final angiographic result showed excellent stent expansion without any complication. At the end of the procedure, the sheath was removed and a Perclose device was deployed. Angiographic Findings Cardiac Arteries and Lesion Findings LMCA: Mild luminal irregularities (<30%). LAD: Lesion in Mid LAD: Mid subsection.70% stenosis 9 mm length.The lesion was heavily calcified. Lesion in 1st Diag: Mid subsection.50% stenosis . LCx: Lesion in 2nd Ob Bernarda: Proximal subsection.80% stenosis 8 mm length. Lesion in 1st Ob Bernarda: Proximal subsection.40% stenosis . RCA: There is a previous stent on Dist RCA Mid subsection. There is a previous stent on Mid RCA Mid subsection. There is a previous stent on Prox RCA Ostial. Lesion in Mid RCA: Distal subsection.50% stenosis . Lesion in R PDA: Proximal subsection.60% stenosis . Hemodynamics Condition: Rest O2 Consumption: Estimated: 139.27Heart Rate: 60 bpm Pressures (mmHg) +-----+ + !Site !Pressure ! +-----+ + !LV !151/7 ,15 ! +-----+ + !AO !159/58 (100)! +-----+ + !LV !148/4 ,14 ! +-----+ + Valve Gradients and Areas +------+----+----+----+-----+----+------+ !Valve !Peak!Mean!Area!Index!Flow!Source! +------+----+----+----+-----+----+------+ !Aortic!0 !0 ! ! ! ! ! +------+----+----+----+-----+----+------+ !Aortic!0 !0 ! ! ! ! ! +------+----+----+----+-----+----+------+ Shunts Oxygen Values O2 Capacity 157.76 O2 Consumption 139.27 Interventional Procedure Cardiac lesions LAD: Lesion in Mid LAD: Mid subsection.70% stenosis 9 mm length.The lesion was heavily calcified. Devices used - .014 x190 STR ASAHI VICKI BLUE GUIDEWIRE. Number of passes: 1. - 2.20wbz55bm MR EMERGE BALLOON. 2 inflation(s) to a max pressure of: 14 carline. - 2.7nqk53yv RX SHOCKWAVE C2 IVL. Diameter: 2.5 mm. Length: 12 mm. 6 inflation(s) to a max pressure of: 10 carline. - 3.9ght61bh SYNERGY XD ITZ. Diameter: 3 mm. Length: 16 mm. 1 inflation(s) to a max pressure of: 14 carline. - 3.7cwa64sh MR NC EMERGE BALLOON. Diameter: 3 mm. Length: 12 mm. 1 inflation(s) to a max pressure of: 12 carline. LCx: Lesion in 2nd Ob Bernarda: Proximal subsection.80% stenosis 8 mm length reduced to 2%. Devices used - .014 x190 STR ASAHI VICKI BLUE GUIDEWIRE. Number of passes: 1. - 2.7clj86wp MR EMERGE BALLOON. Diameter: 2 mm. Length: 15 mm. 3 inflation(s) to a max pressure of: 12 carline. - 2.31cqv04hn SYNERGY XD ITZ. Diameter: 2.25 mm. Length: 20 mm. 1 inflation(s) to a max pressure of: 12 carline. - 2.56lne49gc RX NC EUPHORA BALLOON. Diameter: 2.25 mm. Length: 12 mm. 2 inflation(s) to a max pressure of: 14 carline. Conclusions Diagnostic Summary 76-year-old female with hypertension, hyperlipidemia, diabetes mellitus type 2 and recent PCI of the RCA came to the hospital with chest pain. LVEDP 15 mmHg. No significant pullback gradient across aortic valve. Diagnostic angiogram revealed mild luminal irregularities of the LMCA, 70% stenosis in the proximal subsection of mid LAD which is diffusely calcified, 50% stenosis in the mid subsection of D1, 40% stenosis in the proximal subsection of OM1 and 80% stenosis in the proximal subsection of OM 2, 50% stenosis in the distal subsection of mid RCA and 60% stenosis in the proximal subsection of RPDA. Previously placed stent in the RCA is widely patent. Proceed with intervention of the mid LAD and OM2. Diagnostic Recommendations Intervention of the mid LAD and OM2 Interventional Summary Mid LAD: IVUS guided PCI with shockwave atherectomy using 2.5 mm X12 millimeter Rx Shockwave C2 IVL followed by 2.3 0.0 mm neck 16 mm Synergy ITZ and postdilated with 3.0 mm X12 millimeter NC balloon. OM 2: A 2.25 mm X 20 mm Synergy ITZ was placed and postdilated with 2.25 mm X12 millimeter NC balloon. Interventional Recommendations Continue aspirin 81 mg p.o. indefinitely and Brilinta 90 mg p.o. twice daily 1 year postintervention. Guideline directed medical management for coronary artery disease. Follow-up with Dr. Kelley Us at [facility] cardiology office in 4 to 6 weeks. Signatures Admission evaluation note * Bill Ramirez MD: PERFORM, MODIFY Event Display: Admission Note Authored Date: [id number] Patient: ??HERMAN CORTES ? Age:??76 Years?Sex:??Female?:??1945?? HPI: 76-year-old female with history of insulin-dependent diabetes mellitus, hypertension, hyperlipidemia, asthma, GERD, and depression, recent NSTEMI (presented to [facility] 06/26/22 with chest pain-PCI, now s/p angioplasty and DESx3 from Ostial to Distal RCA w/ rotablation and shockwave, started on Brilinta) ??who presents to the ED today for evaluation of chest pain again. ?? Patient states that it feels like there is some gas in her chest. ??It is radiating pain up into her right shoulder. ??She has no other associated shortness of breath or nausea or vomiting. ??No other fevers or chills. ?? He states that she has been taking all her medications since the procedure. ??She does have some mild discomfort in her right groin where they did the procedure. ?? She is concerned that her blood pressure is low, feels like she's seeing stars at times. She felt unwell earlier today and her son checked her pressure at 98/50. ?? She notes that she thinks lisinopril gives her throat tightening and itchiness and discomfort. ?? In the ED: Vitals unremarkable, afebrile, normotensive, normal heart rate, satting well on room air. CBC??and basic chemistr??at baseline, Cr 1.0 BNP 537 Trop 469 -> 496 EKG nonischemic, shows flipped T waves inferiorly which is unchanged from prior CXR unremarkable [facility] Cardiology was called, they didn't feel any cause for starting heparin gtt, they will see in the morning. Patient was admitted for ACS rule out. ?? ROS: As above, rest of full review negative. ?? PMH: Acid reflux Asthma Asthma - PFTs 200 at [facility], mild obst defect - sees pulm Depression Diabetes - sees endocrinology Diastolic dysfunction - echo in prior records 08/01/2016 EF 50-55%, grade 2 diastolic dysfunction, mild hypokinesis GERD (gastroesophageal reflux disease) Hyperlipidemia Hyperlipidemia Hyperlipidemia LDL goal < 100 Hypertension Hypertension Insulin dependent type 2 diabetes mellitus ROXIE (obstructive sleep apnea) - sleep study [facility] 12/28/2008 - in old records Obese class I ?? MEDS: Acetaminophen (acetaminophen 500 mg oral tablet)?1?tab(s)?500?Milligram?By Mouth?3 times a day?as needed?Pain , Mild Albuterol (Albuterol (Eqv-Proventil HFA) 90 mcg/inh inhalation aerosol)?2?puff(s)?Inhalation?Every 6 hours Aspirin (aspirin 81 mg oral delayed release tablet)?81?Milligram?1?tablet?By Mouth?Daily Atorvastatin (atorvastatin 80 mg oral tablet)?1?tab(s)?80?Milligram?By Mouth?Daily at bedtime Chlorthalidone (chlorthalidone 25 mg oral tablet)?25?Milligram?1?tablet?By Mouth?Daily Clonidine (cloNIDine 0.2 mg/24 hr transdermal film, extended release)?1?patch(es)?Topically?Every week Diclofenac Topical (diclofenac 1% topical gel)?1?crescencio?Topically?4 times a day Fluticasone Nasal (fluticasone 50 mcg/inh nasal spray)?1?spray(s)?Nares, Both?2 times aday Insulin Glargine (Lantus Solostar Pen 100 units/mL subcutaneous solution)?28?unit(s)?Subcutaneous Injection?Daily at bedtime Isosorbide Mononitrate (isosorbide mononitrate 30 mg oral tablet, extended release)?1?tab(s)?30?Milligram?By Mouth?Daily Latanoprost Ophthalmic (latanoprost 0.005% ophthalmic solution)?1?Drops?Eyes, Both?Daily at bedtime Lidocaine Topical (lidocaine 5% topical film)?1?patch(es)?Topically?Daily?as needed?Pain , Mild?remove after 12 hours Lisinopril (lisinopril 5 mg oral tablet)?5?Milligram?1?tablet?By Mouth?Daily Metoprolol (metoprolol 25 mg oral tablet, extended release)?25?Milligram?1?tablet?ByMouth?Daily mirabegron (Myrbetriq 25 mg oral tablet, extended release)?1?tab(s)?25?Milligram?By Mouth?Daily?do not crush or chew Nitroglycerin (nitroglycerin 0.4 mg sublingual tablet)?1?tab(s)?0.4?Milligram?Sublingual?Every 5 minutes?as needed?Chest Pain Omeprazole (omeprazole 20 mg oral delayed release tablet)?1?tab(s)?20?Milligram?By Mouth?Daily Sertraline (sertraline 50 mg oral tablet)?1?tab(s)?50?Milligram?By Mouth?Daily Simethicone (Gas Relief Extra Strength 125 mg oral tablet, chewable)?TAKE 1 TABLET BY MOUTH NEEDED AFTER MEALS AND AT BEDTIME FOR GAS Spironolactone (spironolactone 25 mg oral tablet)?25?Milligram?1?tablet?By Mouth?Daily Ticagrelor (ticagrelor 90 mg oral tablet)?1?tab(s)?90?Milligram?By Mouth?2 times a day ?? Social: Lives independently ?? Exam: Temperature?97.9 ?(15:44) Systolic Blood Pressure?110 ?(22:46) Diastolic Blood Pressure?58 ?(22:46) Pulse?67 ?(22:46) SpO2?100 ?(22:46) Respiratory Rate?19 ?(22:46) GEN: Comfortable in bed HEENT: Moist membranes HEART: Warm extremities LUNGS: Breathing comfortably room air ABD: Soft, nontender EXT: Warm, no edema NEURO: Alert, oriented x3 PSYCH: Calm and cooperative ? Assessment and Plan: 76-year-old female with history of insulin-dependent diabetes mellitus, hypertension, hyperlipidemia, asthma, GERD, and depression, recent NSTEMI (presented to [facility] 06/26/22 with chest pain-PCI, now s/p angioplasty and DESx3 from Ostial to Distal RCA w/ rotablation and shockwave, started on Brilinta) ??who presents to the ED today for evaluation of chest pain again. ?? # Chest pain # Recent NSTEMI s/p ITZ x3 Her description of chest pain is atypical, fortunately has resolved. EKG unremarkable, trop elevated but stable 469 -> 496. - [facility] Cards consulted, will see in AM - no heparin gtt - cont asa, beta blcoker and statin - ticagrelor not on formulary, will use Plavix ?? # Reaction to lisinopril - DC lisinopril ?? # HTN She is complaining of low blood pressures at home, pressure here 110/58 - hold chlorthalidone -??cont clonidine - cont isosorbide - discontinue lisinopril - cont spironolactone ?? # DM - Reduce Lantus from 28 units to 20 units - sliding scale ?? # Overactive bladder - cont mirabegron (Myrbetriq 25 mg oral tablet, extended release)?1?tab(s)?25?Milligram?By Mouth?Daily?do not crush or chew ?? # GERD ??- cont Omeprazole (omeprazole 20 mg oral delayed release tablet)?1?tab(s)?20?Milligram?By Mouth?Daily ?? # Mood - cont Sertraline (sertraline 50 mg oral tablet)?1?tab(s)?50?Milligram?By Mouth?Daily ? DIET - regular CODE - full DVT - low risk EKG study * Event Display: ECG 12-Lead Authored Date: Please click on pdf link to open report * Event Display: ECG 12-Lead Authored Date: Ventricular Rate: 65 BPM Atrial Rate: 65 BPM P-R Interval: 178 ms QRS Duration: 88 ms Q-T Interval: 422 ms QTC Calculation(Bazett): 438 ms P Lovejoy: 62 degrees R Lovejoy: -45 degrees T Lovejoy: -49 degrees Normal sinus rhythm with sinus arrhythmia Left axis deviation Inferior infarct , age undetermined Abnormal ECG When compared with ECG of 11-JUL-2022 15:31, MANUAL COMPARISON REQUIRED, DATA IS UNCONFIRMED Confirmed by MICHI LONDON MD ([id number]) on 07/12/2022 3:55:46 PM [place]: MICHI LONDNO MD * Event Display: EKG Authored Date: * Event Display: ECG 12-Lead Authored Date: Please click on pdf link to open report * Event Display: ECG 12-Lead Authored Date: Ventricular Rate: 57 BPM Atrial Rate: 57 BPM P-R Interval: 172 ms QRS Duration: 100 ms Q-T Interval: 434 ms QTC Calculation(Bazett): 422 ms P Lovejoy: 56 degrees R Lovejoy: -50 degrees T Lovejoy: -40 degrees Sinus bradycardia Left axis deviation Minimal voltage criteria for LVH, may be normal variant ( Chloride product ) Cannot rule out Anterior infarct , age undetermined T wave abnormality, consider inferior ischemia Abnormal ECG When compared with ECG of 04-JUL-2022 09:54, Minimal criteria for Inferior infarct are no longer Present ST no longer elevated in Inferior leads ST no longer depressed in Lateral leads Nonspecific T wave abnormality no longer evident in Lateral leads Confirmed by MICHI LONDON MD ([id number]) on 07/12/2022 3:54:43 PM [place]: MICHI LONDON MD Cardiology * Event Display: Cardiac Rhythm Strips Authored Date: * Event Display: Cardiac Rhythm Strips Authored Date: Hospital Progress note * Dashawn Erazo MD: SIGN Castro MALDONADO, Dashawn Barron: SIGN, MODIFY Dashawn Erazo MD: MODIFY, VERIFY, PERFORM Domingo GARCIA [Cardiology][place]: PERFORM Event Display: Progress Note Hospital Authored Date: Patient: HERMAN CORTES Age: 76 years Sex: Female : 1945 Associated Diagnoses: None Author: Domingo GARCIA [Cardiology][place] Awake and alert, lying in bed, no acute distress. Feels well. Denies chest discomfort. Does have some ecchymosis noted over her right groin. Clean dry and intact dressing. No drainage noted. Has not been out of bed to ambulate. Breathing stable. No edema. Review of Systems Review of Systems Respiratory: no shortness of breath, no wheezing. Cardiovascular: no peripheral edema, no chest pain. Gastrointestinal: no abdominal pain, no nausea, no vomiting, no diarrhea. Review / Management MEDICATION LIST (Selected) Inpatient Medications Ordered Enoxaparin Inj: 40 mg, Injection, Subcutaneous Injection, Daily, Routine, 07/11/22 9:00:00 EDT Insulin Glargine Inj: 20 units, Injection, Subcutaneous Injection, Daily at bedtime, [facility], 07/07/2322:31:00 EDT Insulin LISPRO Sliding Scale: 2-10 units, Injection, Subcutaneous Injection, 3 times a day before meals, Routine, 07/09/22 16:00:00 EDT Oxybutynin XL Tablet: 5 mg, XL Tablet, By Mouth, Daily, Routine, 07/08/22 9:00:00 EDT Ticagrelor Tablet: 90 mg, Tablet, By Mouth, 2 times a day, Routine, 07/08/22 9:00:00 EDT aspirin 81 mg oral delayed release tablet: 81 mg, EC Tablet, By Mouth, Daily, Routine, 07/08/22 9:00:00 EDT atorvastatin 80 mg oral tablet: 80 mg, Tablet, By Mouth, Daily at bedtime, Routine, 07/08/22 21:00:00 EDT isosorbide mononitrate 30 mg oral tablet, extended release: 60 mg, ER Tablet, By Mouth, Daily, Routine, 07/11/22 9:00:00 EDT losartan 25 mg oral tablet: 25 mg, Tablet, By Mouth, Daily, Routine, 07/12/22 9:32:00 EDT metoprolol 25 mg oral tablet, extended release: 25 mg, XL Tablet, By Mouth, Daily, Routine, 07/08/22 9:00:00 EDT pantoprazole 20 mg oral delayed release tablet: 20 mg, EC Tablet, By Mouth, Daily, Indicated for: Continuation from Home, Routine, 07/08/22 9:00:00 EDT sertraline 50 mg oral tablet: 50 mg, Tablet, By Mouth, Daily, Routine, 07/08/22 9:00:00 EDT spironolactone 25 mg oral tablet: 25 mg, Tablet, By Mouth, Daily, Routine, 07/08/22 9:00:00 EDT Physical Examination Vital Signs Vitals : VITALS 07/12/2022 8:25 EDT Pulse Rate 70 bpm Systolic Blood Pressure 147 mm Hg H Diastolic Blood Pressure 61 mm Hg 07/12/2022 7:38 EDT Temperature 98 DegF Temperature Route Oral Respiratory Rate 18 br/min Systolic Blood Pressure 147 mm Hg H Diastolic Blood Pressure 61 mm Hg Oxygen Saturation 97 % Mode of Delivery (Oxygen) Room air . Weight : Weight lb/oz 07/12/2022 4:55 EDT Weight lb/oz 149 lb 11 oz . BMI : Body Mass Index 06/27/2022 13:32 EDT Body Mass Index 30.22 kg/m2 >HHI . General Appearance NAD. HEENT Moist mucous membranes. Respiratory Lungs: CTA. Cardiac Cardiac: no M/G/R. Rhythms: RRR. Abdomen/GI Abdomen: soft, non-tender, non-distended, bowel sounds. Extremities Extremities: no clubbing, no cyanosis. No edema. Neurologic Alert & oriented x 3 . Results Review 7 Day Results Results Laboratory : LABORATORY 07/12/2022 7:40 EDT Glucose, POC 137 mg/dL H 07/12/2022 2:13 EDT WBC 8.0 k/mm3 RBC 3.30 m/mm3 L Hgb 10.3 Gm/dL L Hct 30.4 % L MCV 92.1 femtoliters MCH 31.2 pg MCHC 33.9 g/dL Platelet Count 246 k/mm3 RDW-SD 43.3 femtoliters MPV 10.5 femtoliters Nucleated RBC (Automated) 0.0 #/100 WBC'S Abs. NRBC 0.0 k/mm3 Sodium 138 mmol/L Potassium 4.4 mmol/L Chloride 103 mmol/L Bicarbonate Level 23 mmol/L Anion Gap 12 Glucose Level 167 mg/dL H BUN 25 mg/dL H Creatinine-Blood 1.0 mg/dL Estimated GFR Creatinine 58 ML/MIN/1.73 M2 Calcium 9.1 mg/dL Magnesium 1.8 mg/dL General results Tele Monitor SR, first degree AVB Angiographic Findings Cardiac Arteries and Lesion Findings LMCA: Mild luminal irregularities (<30%). LAD: Lesion in Mid LAD: Mid subsection.70% stenosis 9 mm length.The lesion was heavily calcified. Lesion in 1st Diag: Mid subsection.50% stenosis . LCx: Lesion in 2nd Ob Bernarda: Proximal subsection.80% stenosis 8 mm length. Lesion in 1st Ob Bernarda: Proximal subsection.40% stenosis . RCA: There is a previous stent on Dist RCA Mid subsection. There is a previous stent on Mid RCA Mid subsection. There is a previous stent on Prox RCA Ostial. Lesion in Mid RCA: Distal subsection.50% stenosis . Lesion in R PDA: Proximal subsection.60% stenosis . Hemodynamics Condition: Rest O2 Consumption: Estimated: 139.27Heart Rate: 60 bpm Pressures (mmHg) +-----+ + !Site !Pressure ! +-----+ + !LV !151/7 ,15 ! +-----+ + !AO !159/58 (100)! +-----+ + !LV !148/4 ,14 ! +-----+ + Valve Gradients and Areas +------+----+----+----+-----+----+------+ !Valve !Peak!Mean!Area!Index!Flow!Source! +------+----+----+----+-----+----+------+ !Aortic!0 !0 ! ! ! ! ! +------+----+----+----+-----+----+------+ !Aortic!0 !0 ! ! ! ! ! +------+----+----+----+-----+----+------+ Shunts Oxygen Values O2 Capacity 157.76 O2 Consumption 139.27 Interventional Procedure Cardiac lesions LAD: Lesion in Mid LAD: Mid subsection.70% stenosis 9 mm length.The lesion was heavily calcified. Devices used - .014 x190 STR VetCent[employer]ON BLUE GUIDEWIRE. Number of passes: 1. - 2.49dms75dp MR EMERGE BALLOON. 2 inflation(s) to a max pressure of: 14 carline. - 2.3cym12ow RX SHOCKWAVE C2 IVL. Diameter: 2.5 mm. Length: 12 mm. 6 inflation(s) to a max pressure of: 10 carline. - 3.6luq40mz SYNERGY XD ITZ. Diameter: 3 mm. Length: 16 mm. 1 inflation(s) to a max pressure of: 14 carline. - 3.9faz29as MR NC EMERGE BALLOON. Diameter: 3 mm. Length: 12 mm. 1 inflation(s) to a max pressure of: 12 carline. LCx: Lesion in 2nd Ob Bernarda: Proximal subsection.80% stenosis 8 mm length reduced to 2%. Devices used - .014 x190 STR DroidUnit.netHI VICKI BLUE GUIDEWIRE. Number of passes: 1. - 2.9yos55ee MR EMERGE BALLOON. Diameter: 2 mm. Length: 15 mm. 3 inflation(s) to a max pressure of: 12 carline. - 2.02llc84of SYNERGY XD ITZ. Diameter: 2.25 mm. Length: 20 mm. 1 inflation(s) to a max pressure of: 12 carline. - 2.33xqz79qu RX NC EUPHORA BALLOON. Diameter: 2.25 mm. Length: 12 mm. 2 inflation(s) to a max pressure of: 14 carline. Conclusions Diagnostic Summary 76-year-old female with hypertension, hyperlipidemia, diabetes mellitus type 2 and recent PCI of the RCA came to the hospital with chest pain. LVEDP 15 mmHg. No significant pullback gradient across aortic valve. Diagnostic angiogram revealed mild luminal irregularities of the LMCA, 70% stenosis in the proximal subsection of mid LAD which is diffusely calcified, 50% stenosis in the mid subsection of D1, 40% stenosis in the proximal subsection of OM1 and 80% stenosis in the proximal subsection of OM 2, 50% stenosis in the distal subsection of mid RCA and 60% stenosis in the proximal subsection of RPDA. Previously placed stent in the RCA is widely patent. Proceed with intervention of the mid LAD and OM2. Diagnostic Recommendations Intervention of the mid LAD and OM2 Interventional Summary Mid LAD: IVUS guided PCI with shockwave atherectomy using 2.5 mm X12 millimeter Rx Shockwave C2 IVL followed by 2.3 0.0 mm neck 16 mm Synergy ITZ and postdilated with 3.0 mm X12 millimeter NC balloon. OM 2: A 2.25 mm X 20 mm Synergy ITZ was placed and postdilated with 2.25 mm X12 millimeter NC balloon. Interventional Recommendations Continue aspirin 81 mg p.o. indefinitely and Brilinta 90 mg p.o. twice daily 1 year postintervention. Guideline directed medical management for coronary artery disease. Follow-up with Dr. Kelley Us at [facility] cardiology office in 4 to 6 weeks. Signatures Impression and Plan Mrs. Cortes has known three-vessel coronary disease and was recommended for CABG but refused andopted for staged PCI with recent intervention to the RCA with planned LAD and OM 2 stenting in 3 to4 weeks who now presents with an hour of shoulder pain and found to have non-STEMI. She is status post IVUS guided PCI with shockwave arthrectomy to the mid LAD. She is on dual antiplatelet therapy. She will continue aspirin and Brilinta. I would not resume chlorthalidone and clonidine as blood pressures have stabilized. I would start losartan 25 mg daily given her mildly reduced ejection fraction. Otherwise continue spironolactone, Imdur, metoprolol, and statin therapy. Recommend cardiac rehab. We will continue to follow as an outpatient. She will keep an eye on her right groin swelling. Wound care discussed. Continue low-salt diet and daily low impact exercise. Thank you for allowing us to participate in this patient's care. We will continue to follow her as an inpatient and outpatient. Please feel free to call with any questions or concerns. * Castro MALDONADO, Dashawn Barron: PERFORM Event Display: Progress Note Hospital Authored Date: Attending PA/SOFTWARE ASSET MANAGER Attestation: I have seen and evaluated this patient in conjunction with the SOFTWARE ASSET MANAGER/PA. I have discussed the case and its management with the PA/SOFTWARE ASSET MANAGER as documented in the PA/SOFTWARE ASSET MANAGER note. I performed the medical decision making in its entirety. In summary, She is doing well status post staged stenting. She had a stent placed to her LAD. She will continueon aspirin and Brilinta. She is doing well in regards to her blood pressure. We will place her on losartan and monitor her creatinine. She does have a mildly reduced ejection fraction. She will continue on her metoprolol statin Imdur and Aldactone. She did have some mild groin swelling with no obvious hematoma or bruit. We will continue to monitor this. She does understand that if this worsens tolet us know so we can ultrasound it. * Melissa Saenz RN: PERFORM, SIGN, VERIFY Event Display: Progress Note Hospital Authored Date: [id number] Patient: HERMAN CORTES Age: 76 years Sex: Female : 1945 Associated Diagnoses: None Author: Melissa Saenz RN Findings Evaluation S/P stents placement. Alert and oriented. C/O pain to right groin access site area, medicated per APR with good efffect. Right groin dressing saturated with bright red blood, DCD applied around 2200,no further bleeding noted. No other changes nted. OOB with assist x1 to the bathroom first time getting up post procedure. Safety maintained, call gutierrez within reach. Possible discharge tomorrow. Willcontinue to monitor and treat per plan of care.. * Tracie Marx DO: PERFORM Event Display: Progress Note Hospital Authored Date: [id number] Patient: ??HERMAN CORTES ? Age:??76 Years?Sex:??Female?:??1945?? Subjective No acute events overnight No chest pain, no shortness of breath this morning Yesterday had some dark urine per patient, UA reassuring States she sometimes feels like she has trouble urinating, happens on and off Feels better this morning Review of Systems Negative except as per HPI Objective Vital Signs?? Temperature: 98.1 DegF (07/11/22 07:34:00) Temperature Route: Temporal (07/11/22 07:34:00) Pulse Rate: 80 bpm (07/11/22 08:27:00) Respiratory Rate: 20 br/min (07/11/22 07:34:00) Systolic Blood Pressure:??150 mm Hg??High (07/11/22 08:27:00) Diastolic Blood Pressure: 74 mm Hg (07/11/22 08:27:00) Blood pressure sites: Arm, right (07/11/22 07:34:00) Mean Arterial Pressure: 99 mm Hg (07/11/22 07:34:00) Pulse Pressure: 76 mm Hg (07/11/22 07:34:00) Oxygen Saturation: 100 % (07/11/22 07:34:00) Liters per Minute: 2 L/min (07/10/22 13:00:00) Mode of Delivery (Oxygen): Room air (07/11/22 07:34:00) Early Warning Score: 0 (07/11/22 08:30:33) ? Intake/Output? 07/07 20:38 07/11 07:00 07/10 07:00 07/09 07:00 07/08 07:00 ?? 07/11 09:57 07/11 09:57 07/11 06:59 07/10 06:59 07/09 06:59 Intake ? 1492.3 ? 50 ?600 ?632.5 ?209.9 Output ? 4352 ?300 ? 3000 ?650 ?402 Net Total ?-2859.7 ? -250 ?-2400 ?-17.5 ? -192.1 ? Urine Count ?2 ?0 ?0 ?2 ?0 ? Physical Exam Constitutional: alert, no acute distress, laying in bed HEENT: Normocephalic. Moist mucous membranes. Respiratory: Clear to auscultation. No wheezing, rales or rhonchi. Cardiovascular: S1 S2 regular. No murmurs, rubs or gallops. Gastrointestinal: Abdomen soft, non-tender, non-distended. Skin: No rashes or lesions. Psychiatric: Normal mood and affect _ Inpatient Medications Medications (21) Active SCHEDULED: (13) Aspirin 81 mg EC Tablet (aspirin 81 mg oral delayed release tablet) ??81 mg, By Mouth, Daily Atorvastatin 80 mg Tablet (atorvastatin 80 mg oral tablet) ??80 mg, By Mouth, Daily at bedtime Enoxaparin 40 mg Inj (Enoxaparin Inj) ??40 mg 0.4 mL, Subcutaneous Injection, Daily Insulin Glargine 100 units/mL Inj (Insulin Glargine Inj) ??20 units 0.2 mL, Subcutaneous Injection,Daily at bedtime Insulin Lispro 100 units/mL Inj (3mL) (Insulin LISPRO Sliding Scale) ??2-10 units, Subcutaneous Injection, 3 times a day before meals Isosorbide Mononitrate 30 mg ER Tablet (isosorbide mononitrate 30 mg oral tablet, extended release)??60 mg, By Mouth, Daily Metoprolol 25 mg XL Tablet (metoprolol 25 mg oral tablet, extended release) ??25 mg, By Mouth, Daily NaCl 0.9% Flush 3ml (NaCL 0.9% Flush) ??3 mL, IV Push, Every 8 hours Oxybutynin 5 mg ER Tablet (Oxybutynin XL Tablet) ??5 mg, By Mouth, Daily Pantoprazole 20 mg EC Tablet (pantoprazole 20 mg oral delayed release tablet) ??20 mg, By Mouth, Daily Sertraline 50 mg Tablet (sertraline 50 mg oral tablet) ??50 mg, By Mouth, Daily Spironolactone 25 mg Tablet (spironolactone 25 mg oral tablet) ??25 mg, By Mouth, Daily Ticagrelor 90 mg Tablet (Ticagrelor Tablet) ??90 mg 1 tablet, By Mouth, 2 times a day CONTINUOUS: (0) PRN: (8) Acetaminophen 325 mg Tablet (Acetaminophen Tablet) ??650 mg, By Mouth, Every 4 hours Dextromethorphan-Guaifenesin 20 mg-200 mg/10 mL Liqu UD (Robitussin DM Liquid) ??10 mL, By Mouth, Every 4 hours Melatonin 3 mg Tablet (Melatonin Tablet) ??3 mg, By Mouth, Daily at bedtime NaCl 0.9% Flush 3ml (NaCL 0.9% Flush) ??3 mL, IV Push, Every 8 hours Nitroglycerin 0.4 mg Sublingual Tablet (nitroglycerin 0.4 mg sublingual tablet) ??0.4 mg, Sublingual, Every 5 minutes Polyethylene Glycol 17 Gm Powder (MiraLax Powder) ??17 Gm 1 pack/packet, By Mouth, Daily Senna 8.6 mg / Docusate 50 mg tablet (Docusate/Senna Tablet) ??1 tablet, By Mouth, 2 times a day Simethicone 80 mg Chewable Tablet (Simethicone Tablet) ??80 mg, Chew, 3 times a day ? Results Recent Labs BLOOD COUNT & DIFF WBC 9.0 k/mm3 ()?? 07/11/2022 05:19 RBC 3.74 m/mm3 (Low)?? 07/11/2022 05:19 Hgb 11.6 Gm/dL (Low)?? 07/11/2022 05:19 Hct 34.5 % (Low)?? 07/11/2022 05:19 MCV 92.2 femtoliters ()?? 07/11/2022 05:19 MCH 31.0 pg ()?? 07/11/2022 05:19 MCHC 33.6 g/dL ()?? 07/11/2022 05:19 Platelet Count 245 k/mm3 ()?? 07/11/2022 05:19 RDW-SD 43.2 femtoliters ()?? 07/11/2022 05:19 MPV 10.5 femtoliters ()?? 07/11/2022 05:19 Nucleated RBC (Automated) 0.4 #/100 WBC'S ()?? 07/11/2022 05:19 Abs. NRBC 0.0 k/mm3 ()?? 07/11/2022 05:19 ?? CHEM GENERAL Sodium 136 mmol/L ()?? 07/11/2022 05:19 Potassium 4.5 mmol/L ()?? 07/11/2022 05:19 Chloride 101 mmol/L ()?? 07/11/2022 05:19 Bicarbonate Level 25 mmol/L ()?? 07/11/2022 05:19 Anion Gap 10 ()?? 07/11/2022 05:19 Glucose Level 188 mg/dL (High)?? 07/11/2022 05:19 Glucose, POC 138 mg/dL (High)?? 07/11/2022 07:32 BUN 27 mg/dL (High)?? 07/11/2022 05:19 Creatinine-Blood 0.8 mg/dL ()?? 07/11/2022 05:19 Estimated GFR Creatinine 72 ML/MIN/1.73 M2 ()?? 07/11/2022 05:19 Calcium 9.9 mg/dL ()?? 07/11/2022 05:19 Magnesium 1.6 mg/dL ()?? 07/11/2022 05:19 ?? COAG APTT 52.6 seconds (High)?? 07/10/2022 04:53 ?? UA/URINALYSIS Appear/Color, Urine YELLOW ()?? 07/10/2022 15:58 Clarity CLEAR ()?? 07/10/2022 15:58 Specific [place], Urine 1.021 ()?? 07/10/2022 15:58 pH, Urine 6.0 ()?? 07/10/2022 15:58 Albumin, Urine NEGATIVE ()?? 07/10/2022 15:58 Glucose, Urine NEGATIVE ()?? 07/10/2022 15:58 Ketones, Urine NEGATIVE ()?? 07/10/2022 15:58 Bilirubin, Urine NEGATIVE ()?? 07/10/2022 15:58 Hemoglobin, Urine NEGATIVE ()?? 07/10/2022 15:58 Nitrite, Urine NEGATIVE ()?? 07/10/2022 15:58 Leukocyte, Urine 2+ (Abnormal)?? 07/10/2022 15:58 Urobilinogen NORMAL mg/dL ()?? 07/10/2022 15:58 WBC's, Urine 10 /HPF (High)?? 07/10/2022 15:58 RBC's, Urine 1 /HPF ()?? 07/10/2022 15:58 Bacteria SLIGHT HPF (Abnormal)?? 07/10/2022 15:58 Squamous Epith 12 /HPF (High)?? 07/10/2022 15:58 Hyaline Cast 1 LPF ()?? 07/10/2022 15:58 Mucus SLIGHT /LPF ()?? 07/10/2022 15:58 Culture Indication CULTURE NOT INDICATED ()?? 07/10/2022 15:58 ? Microbiology ?? COVID-19 (Novel Coronavirus), Rapid PCR?? Completed?? Source: Nasal Body Site: Nose Collected Dt/Tm: 07/07/2022 20:35 Last Updated Dt/Tm: 07/07/2022 22:26 ? Assessment/Plan 76-year-old??Faroese-speaking female with a history of insulin-dependent diabetes, hypertension, dyslipidemia, asthma, GERD and depression who recently presented to [facility] on June 26 withcomplaints of chest pain her work-up was consistent with a non-STEMI patient was transferred to [facility] for cardiac catheterization she was found to have three-vessel disease and recommended for CABG, but refused and opted for staged PCI.?? She underwent??a heavily calcified mid RCA and distal RCAPCI??with plan for staged PCI of LAD and OM 2 in 3 to 4 weeks as an outpatient.?She re-presented?? with one hour of shoulder pain and found to have a NSTEMI admitted for second PCI. ?? NSTEMI Recent history of non-STEMI??and??referral??to CABG due to three-vessel disease. ??Patient refused??CABG. Presented again with shoulder pain,??found to have non-STEMI. Troponin peaked up to 515, not trended down. ??EKG at that time revealed T wave inversions in the inferior leads. ??And near flat T wavesin the precordial leads. S/p MID and distal RCA PCI on 07/03 with plan for Staged PCI of the LAD and OM2 in 3 to 4 weeks as anoutpatient. echo from 06/29 reveals ejection fraction of 40 to 45%. 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 ??Grade 1 diastolic dysfunction. ??No significant valvular abnormalities. Medications include aspirin, ticagrelor, high intensity statin, metoprolol and Imdur. No chest pain, shortness of breath this morning ?? Plan Plan for PCI today, NPO at this time Continue Imdur, Metoprolol, statin, aspirin, ticagrelor will discuss restarting clonidine with cards ?? Hypertension She is complaining of low blood pressures at home, pressure??on admission??96/ Today has been mildly hypertensive ?? Plan will continue to hold chlorthalidone and clonidine pending conversation with cards will??consider starting??amlodipine 2.5mg daily pending conversation with cards increased Imdur to 60mg daily Continue spironolactone ?? Diabetes She is on 28 units of Lantus at home and no short-acting. ??No oral antihyperglycemic's either. Premeal glucose levels slightly elevated. ?? Plan Lantus at 20 units Insulin sliding??scale ? Chronic medical conditions Overactive bladder: Mirabegron not on formulary, she was placed on oxybutynin by admitting team. GERD: Continue??omeprazole Depression: Continue??sertraline ? DIET -n.p.o. for cath, then cardiac diet CODE - full DVT -?? lovenox, held this AM for cath ?? Tracie Marx, DO Med/[place]eds PGY [address] [place] [id number] ?? Patient seen and discussed with attending Dr. Ace * Db MALDONADO, Maia: PERFORM Event Display: Progress Note Hospital Authored Date: I have seen and evaluated the patient on the day of service. I have discussed the case and its management with medical territory manager and I agree with assessment and plan as documented in resident's note Deprecated Cardiac rehabilitation treatment plan Progress note and attainment of goals (narrative) * Mandeep Saucedo: PERFORM, SIGN, VERIFY Event Display: Cardiac Rehab Note Authored Date: Patient: HERMAN CORTES Age: 76 years Sex: Female : 1945 Associated Diagnoses: None Author: Mandeep Saucedo Diagnosis Cardiac Rehab Diagnosis: S/P NSTEMI, S/P ITZ LAD/OM2. Pre-exercise Vitals Vital Signs: 70 HR, 140/64 BP Supine, 96% RA SaO2. Vital Signs Comment: Reviewed in CIS, RN informed of Vital Sign changes. Pre-exercise Physical Examination Neurologic: alert & oriented. Cardiovascular: heart rate regular. Lungs: Cough no. Activity Symptoms with Cardiac Rehab Symptoms: No exertional symptoms. Activity Transfers: assist x 1 . Ambulate: assist x 1 , distance ambulated 50 feet. Patient Education Education: Pony Worker present, Written material included, Post procedure guidelines, Stent card reviewed. Education topic Teachback comprehension 50% Topic: Pathophysiology, Lipid management, Diabetes management, Medication education, Role of exercise, Home activity guidelines/limits. Reinforcement needed: Medication education. Recommendation and Plan Outpatient follow up recommended: [facility], in 2 weeks. Cardiac Rehab: Will sign off at this time. Recommendation comment: RN notified of plan. Note * Tracie Marx DO: MODIFY, MODIFY, PERFORM Event Display: Discharge/Transfer Note Hospital Authored Date: Patient: ??HERMAN CORTES ? Age:??76 Years?Sex:??Female?:??1945?? Patient Information Discharge Location: 7 Primary Care Physician: Liset Mitchell MD Admit Date/Time: 07/07/22 20:38 Discharge Date: 07/12/22 Discharge Disposition Discharge Disposition: Home: No Services Discharge Diagnosis Chest pain (R07.9) NSTEMI Hypertension ?? _ Discharge Medications Acetaminophen (acetaminophen 500 mg oral tablet)?1?tab(s)?500?Milligram?By Mouth?3 times a day?as needed?Pain , Mild Albuterol (Albuterol (Eqv-Proventil HFA) 90 mcg/inh inhalation aerosol)?2?puff(s)?Inhalation?Every 6 hours Aspirin (aspirin 81 mg oral delayed release tablet)?81?Milligram?1?tablet?By Mouth?Daily Atorvastatin (atorvastatin 80 mg oral tablet)?1?tab(s)?80?Milligram?By Mouth?Daily at bedtime Diclofenac Topical (diclofenac 1% topical gel)?1?crescencio?Topically?4 times a day Durable Medical Equipment (Aerochamber)?See Instructions?use with all inhalers Durable Medical Equipment (Freestyle Lite Monitor)?See Instructions?for 30?Days?Use to checkblood sugar 4-5 times daily. E11.65 Durable Medical Equipment (Freestyle Lite Lancets)?See Instructions?Use to check blood sugar 3 times daily. E1165. 90-day supply. Durable Medical Equipment (Freestyle lite Lancet Device)?See Instructions?Use lancet device to prick finger for glucose testing. E11.65 Durable Medical Equipment (Pen Ramsey, 32 G x 4 mm BD Ultra Fine III)?See Instructions?Use to inject insulin once daily. E1165. 90-day supply. Durable Medical Equipment (Freestyle Lite Test Strips)?See Instructions?Check blood sugar 3 times daily. . -day supply. Fluticasone Nasal (fluticasone 50 mcg/inh nasal spray)?1?spray(s)?Nares, Both?2 times aday Insulin Glargine (Lantus Solostar Pen 100 units/mL subcutaneous solution)?28?unit(s)?Subcutaneous Injection?Daily at bedtime Isosorbide Mononitrate (isosorbide mononitrate 30 mg oral tablet, extended release)?60?Milligram?2?tablet?By Mouth?Daily Latanoprost Ophthalmic (latanoprost 0.005% ophthalmic solution)?1?Drops?Eyes, Both?Daily at bedtime Lidocaine Topical (lidocaine 5% topical film)?1?patch(es)?Topically?Daily?as needed?Pain , Mild?remove after 12 hours Losartan (losartan 25 mg oral tablet)?25?Milligram?1?tablet?By Mouth?Daily Metoprolol (metoprolol 25 mg oral tablet, extended release)?25?Milligram?1?tablet?ByMouth?Daily mirabegron (Myrbetriq 25 mg oral tablet, extended release)?1?tab(s)?25?Milligram?By Mouth?Daily?do not crush or chew Miscellaneous Rx (FreeStyle Aristides sensors)?See Instructions?change every 10 days, ??(3 each/sensors/month), E11.9 Miscellaneous Rx (FreeStyle Precision Saurabh Test Strips)?See Instructions?test BG 4x daily if symptomatic, E11.9 Miscellaneous Rx (FreeStyle Aristides reader)?See Instructions?Use to read Aristides Sensor 5x daily,can also use to test BG 2x daily, DxE10.9 ??[facility]# [id number] Nitroglycerin (nitroglycerin 0.4 mg sublingual tablet)?1?tab(s)?0.4?Milligram?Sublingual?Every 5 minutes?as needed?Chest Pain Omeprazole (omeprazole 20 mg oral delayed release tablet)?1?tab(s)?20?Milligram?By Mouth?Daily Sertraline (sertraline 50 mg oral tablet)?1?tab(s)?50?Milligram?By Mouth?Daily Simethicone (Gas Relief Extra Strength 125 mg oral tablet, chewable)?TAKE 1 TABLET BY MOUTH NEEDED AFTER MEALS AND AT BEDTIME FOR GAS Spironolactone (spironolactone 25 mg oral tablet)?25?Milligram?1?tablet?By Mouth?Daily Ticagrelor (ticagrelor 90 mg oral tablet)?1?tab(s)?90?Milligram?By Mouth?2 times a day ? Medications Started Losartan (losartan 25 mg oral tablet)?25?Milligram?1?tablet?By Mouth?Daily Medications Discontinued Chlorthalidone Clonidine Lisinopril Doses Changed Imdur was INCREASED to 60mg daily Allergies Allergies ?(Active and Proposed Allergies Only) Mold? (Severity: Unknown severity, Onset: Unknown) ?Reactions: cough lisinopril? (Severity: Moderate, Onset: Unknown) ?Reactions: cough, itching ? PCP Follow-Up/Heads-Up Please follow up within 1 week ?? She will follow up with cardiology and cardiac rehab outpatient Hospital Course 76-year-old Faroese-speaking female with a history of insulin-dependent diabetes, hypertension, dyslipidemia, asthma, GERD and depression who recently presented to [facility] on June 26 with complaints of chest pain her work-up was consistent with a non-STEMI patient was transferred to [facility] for cardiac catheterization she was found to have three-vessel disease and recommended for CABG, but refused and opted for staged PCI. She underwent a heavily calcified mid RCA and distal RCA PCIwith plan for staged PCI of LAD and OM 2 in 3 to 4 weeks as an outpatient. She re-presented with one hour of shoulder pain and found to have a NSTEMI admitted for second PCI, now s/p ITZ to LAD and??OM2, chest pain free, medically??stable and ready for discharge home. ?? NSTEMI Hypertension Recent history of non-STEMI and referral to CABG due to three-vessel disease. Patient refused CABG. Presented again with shoulder pain, found to have non-STEMI. Troponin peaked up to 515, not trendeddown. EKG at that time revealed T wave inversions in the inferior leads. And near flat T waves in the precordial leads. S/p MID and distal RCA PCI on 07/03 with plan for Staged PCI of the LAD and OM2 in 3 to 4 weeks as anoutpatient. echo from 06/29 reveals ejection fraction of 40 to 45%. Akinetic inferior basilar and inferior septalwalls. Grade 1 diastolic dysfunction. No significant valvular abnormalities. Medications include aspirin, ticagrelor, high intensity statin, metoprolol and Imdur. s/p cath with ITZ to LAD and OM2 No chest pain, shortness of breath this morning ?? Recommendations Follow up with cardiology, cardiac rehab outpatient Continue Imdur (increased dose to 60mg), Metoprolol, statin, aspirin, ticagrelor Started losartan, will monitor for side effects Discontinued??chlorthalidone and clonidine Continue spironolactone ?? Chronic medical conditions Diabetes: continue home regimen Overactive bladder: continue Mirabegron GERD: Continue omeprazole Depression: Continue sertraline ?? Objective Vital Signs?? Temperature: 98 DegF (07/12/22 07:38:00) Temperature Route: Oral (07/12/22 07:38:00) Pulse Rate: 70 bpm (07/12/22 08:25:00) Heart Rate Monitored: 55 bpm (07/11/22 15:45:00) Respiratory Rate: 18 br/min (07/12/22 07:38:00) Systolic Blood Pressure:??147 mm Hg??High (07/12/22 08:25:00) Diastolic Blood Pressure: 61 mm Hg (07/12/22 08:25:00) Blood pressure sites: Arm, left (07/12/22 07:38:00) Mean Arterial Pressure: 90 mm Hg (07/12/22 07:38:00) Pulse Pressure: 86 mm Hg (07/12/22 07:38:00) Oxygen Saturation: 97 % (07/12/22 07:38:00) Mode of Delivery (Oxygen): Room air (07/12/22 07:38:00) Early Warning Score: 0 (07/12/22 08:26:39) ? . Physical Exam Constitutional: alert, no acute distress HEENT: Normocephalic. Moist mucous membranes. Respiratory: Clear to auscultation. No wheezing, rales or rhonchi. Cardiovascular: S1 S2 regular. No murmurs, rubs or gallops. No peripheral edema. Groin site D/C/I, however noted to have some??surrounding ecchymosis Gastrointestinal: Abdomen soft, non-tender, non-distended. Skin: No rashes or lesions. Psychiatric: Normal mood and affect Consultants Cardiology Pending Results None Patient Education Titles Taking Your Medicines After a Heart Attack?? Living Well After a Heart Attack?? Symptoms of a Heart Attack?? Follow-Up Appointments Added Follow Up ?Time Frame ?Comments Mone MALDONADO, Richard Mitchell MD, Liset?1 week Patient Instructions During this hospitalization you were??treated for: -?Heart Attack ?? The barrios diagnostic tests and??treatments during your hospital stay were : -?EKG, cardiac enzymes, cardiac monitoring, cardiac catheterization with stent placement ?? You will go home with the following NEW medications: -?? Losartan 25mg daily ?? The following medications were CHANGED or STOPPED: -?It is extremely important you continue to take aspirin and brilinta as directed by your buttonhole maker -? Isosorbide Mononitrate was INCREASED to 60mg daily -? Clonidine was STOPPED -? Clorthalidone was STOPPED -? Lisinopril was STOPPED ?? Activity changes: -?Restrictions in your diet:??Limit fatty foods and salt in your diet -?Restrictions in your activities: Please follow up with cardiac rehab who will slowly increase your activity ?? Who to follow up with after being discharged from the hospital: -?Please follow up with your PCP within 1 week -?? You will follow up with cardiology and cardiac rehab outpatient ?? Reasons to call your primary care doctor or hospital physician: -?You notice an increased fatigue,??you have slight chest pain/pressure, or are starting to havea little more difficulty breathing -?? You have any other concerns that you think a doctor should evaluate??or questions about your care ?? Reasons to immediately return to the emergency room or call 911: -?You have severe shortness of breath or chest pain, you pass out, you have signs of stroke suchas weakness of one side of your face/body or difficulty speaking - You have any other concerns that you think require emergency management?? Post Discharge Care Limit salt/fatty foods in diet Activity as directed by cardiac rehab Home Health Face to Face ^HomeHealthFTF Results Discharge Labs BLOOD COUNT & DIFF WBC 8.0 k/mm3 ()?? 07/12/2022 02:13 RBC 3.30 m/mm3 (Low)?? 07/12/2022 02:13 Hgb 10.3 Gm/dL (Low)?? 07/12/2022 02:13 Hct 30.4 % (Low)?? 07/12/2022 02:13 MCV 92.1 femtoliters ()?? 07/12/2022 02:13 MCH 31.2 pg ()?? 07/12/2022 02:13 MCHC 33.9 g/dL ()?? 07/12/2022 02:13 Platelet Count 246 k/mm3 ()?? 07/12/2022 02:13 RDW-SD 43.3 femtoliters ()?? 07/12/2022 02:13 MPV 10.5 femtoliters ()?? 07/12/2022 02:13 Nucleated RBC (Automated) 0.0 #/100 WBC'S ()?? 07/12/2022 02:13 Abs. NRBC 0.0 k/mm3 ()?? 07/12/2022 02:13 Abs. Neut 4.8 k/mm3 ()?? 07/07/2022 16:25 Abs. Lymph 1.9 k/mm3 ()?? 07/07/2022 16:25 Abs. [place] 0.6 k/mm3 ()?? 07/07/2022 16:25 Abs. Eo 0.2 k/mm3 ()?? 07/07/2022 16:25 Abs. Baso 0.1 k/mm3 ()?? 07/07/2022 16:25 Neut % 63.5 % ()?? 07/07/2022 16:25 Lymph % 25.5 % ()?? 07/07/2022 16:25 [place] % 7.4 % ()?? 07/07/2022 16:25 Eos % 2.2 % ()?? 07/07/2022 16:25 Baso % 0.7 % ()?? 07/07/2022 16:25 Imm Gran 0.7 % ()?? 07/07/2022 16:25 Abs. Imm Gran 0.1 k/mm3 ()?? 07/07/2022 16:25 ?? CARDIAC Nt-Probnp 537 pg/mL (High)?? 07/07/2022 16:25 High Sensitivity Troponin (HSTnT) 515 ng/L (Critical)?? 07/08/2022 00:47 ?? CHEM GENERAL Sodium 138 mmol/L ()?? 07/12/2022 02:13 Potassium 4.4 mmol/L ()?? 07/12/2022 02:13 Chloride 103 mmol/L ()?? 07/12/2022 02:13 Bicarbonate Level 23 mmol/L ()?? 07/12/2022 02:13 Anion Gap 12 ()?? 07/12/2022 02:13 Glucose Level 167 mg/dL (High)?? 07/12/2022 02:13 Glucose, POC 137 mg/dL (High)?? 07/12/2022 07:40 BUN 25 mg/dL (High)?? 07/12/2022 02:13 Creatinine-Blood 1.0 mg/dL ()?? 07/12/2022 02:13 Estimated GFR Creatinine 58 ML/MIN/1.73 M2 ()?? 07/12/2022 02:13 Calcium 9.1 mg/dL ()?? 07/12/2022 02:13 Magnesium 1.8 mg/dL ()?? 07/12/2022 02:13 ?? COAG APTT 52.6 seconds (High)?? 07/10/2022 04:53 ? HEME OTHER Hold Blue Top SPECIMEN DISCARDED AFTER 4 HOURS. ()?? 07/07/2022 16:25 ? UA/URINALYSIS Appear/Color, Urine YELLOW ()?? 07/10/2022 15:58 Clarity CLEAR ()?? 07/10/2022 15:58 Specific [place], Urine 1.021 ()?? 07/10/2022 15:58 pH, Urine 6.0 ()?? 07/10/2022 15:58 Albumin, Urine NEGATIVE ()?? 07/10/2022 15:58 Glucose, Urine NEGATIVE ()?? 07/10/2022 15:58 Ketones, Urine NEGATIVE ()?? 07/10/2022 15:58 Bilirubin, Urine NEGATIVE ()?? 07/10/2022 15:58 Hemoglobin, Urine NEGATIVE ()?? 07/10/2022 15:58 Nitrite, Urine NEGATIVE ()?? 07/10/2022 15:58 Leukocyte, Urine 2+ (Abnormal)?? 07/10/2022 15:58 Urobilinogen NORMAL mg/dL ()?? 07/10/2022 15:58 WBC's, Urine 10 /HPF (High)?? 07/10/2022 15:58 RBC's, Urine 1 /HPF ()?? 07/10/2022 15:58 Bacteria SLIGHT HPF (Abnormal)?? 07/10/2022 15:58 Squamous Epith 12 /HPF (High)?? 07/10/2022 15:58 Hyaline Cast 1 LPF ()?? 07/10/2022 15:58 Mucus SLIGHT /LPF ()?? 07/10/2022 15:58 Culture Indication CULTURE NOT INDICATED ()?? 07/10/2022 15:58 ? VIROLOGY COVID-19 by RT-PCR NEGATIVE ()?? 07/07/2022 21:16 ? Microbiology ?? COVID-19 (Novel Coronavirus), Rapid PCR?? Completed?? Source: Nasal Body Site: Nose Collected Dt/Tm: 07/07/2022 20:35 Last Updated Dt/Tm: 07/07/2022 22:26 ? Procedures(s) ?Cardiac Science Technicians Report ?? 07/11/2022 12:07??by Víctor Avery MD ?Interventional Summary ??Mid LAD: ??IVUS guided PCI with shockwave atherectomy using 2.5 mm X12 millimeter Rx ??Shockwave C2 IVL followed by 2.3 0.0 mm neck 16 mm Synergy ITZ and ??postdilated with 3.0 mm X12 millimeter NC balloon. ?? OM 2: ??A 2.25 mm X 20 mm Synergy ITZ was placed and postdilated with 2.25 mm X12 ??millimeter NC balloon. ?? Interventional Recommendations ??Continue aspirin 81 mg p.o. indefinitely and Brilinta 90 mg p.o. twice daily ??1 year postintervention. ??Guideline directed medical management for coronary artery disease. ??Follow-up with Dr. Kelley Us at [facility] cardiology office in 4 to ??6 weeks. ? Imaging(s) ?Chest 2 Views Frontal and Lat ?? 07/07/2022 19:19??by Alf Jack MD ?IMPRESSION: ?? No acute abnormality. ? 40 minutes spent on discharge ?? Tracie Marx, DO Med/Peds [place]Y [address] [place] [id number] ?? Patient seen and discussed with attending Dr. Ace * Maia Ace MD: PERFORM Event Display: Discharge/Transfer Note Hospital Authored Date: I have seen and evaluated the patient on the day of service. I have discussed the case and its management with medical territory manager and I agree with assessment and plan as documented in resident's note * Linda Moctezuma RN: PERFORM Event Display: Patient Education/Instruction Authored Date: [id number] Inpatient Adult Discharge Instructions [address] [address] Name: HERMAN CORTES : 1945 Visit: 07/07/2022 20:38:00 Current Date: 07/12/2022 13:26 Account: [id number] Inpatient Adult Discharge Instructions We would like to thank you for allowing us to assist you with your healthcare needs. The following includes patient education materials and information regarding your injury/illness. Our entire staffstrives to provide an excellent experience for our patients and their families. PLEASE ENSURE YOU FOLLOW-UP PER THE INSTRUCTIONS BELOW! ?? YOUR OPINION IS IMPORTANT TO US! Please complete the survey you may receive by mail or email. Your feedback will be used to make improvements to the healthcare experiences of our patients and their families. Surveys are administered by [employer] ?? If further treatment with your primary care physician or another doctor is recommended, it is important for you to keep the appointment. Call your primary care physician or return to the Emergency Department immediately if your condition worsens, fails to improve, or new symptoms develop. If you need to find a doctor, you can call [facility] for a referral at [phone] or toll free at [phone] or log in to [email or web address].. ?? You can view and manage your care through the patient portal or by using a health care crescencio of your choosing. [employer] is a website that allows you to securely view your medical information including your hospital discharge summary, office visit summaries, medications and follow-up visits. You can also request appointments, renew medications, and request access to your medical information using a health care crescencio of your choosing, or just ask a question. You can enroll at [email or web address] or register during your next office visit. You have been discharged from [facility], Patient Care Unit: M7. If you have any questions regarding these instructions after you leave, please call us and we will be happy to assist you. [facility] Your Care Team Attending Physician Db MALDONADO, Maia Consulting Providers Gena MALDONADO, Víctor; Khadijah Carrillo; Mone MALDONADO, Richard ROBERTS, Jose Angel Discharging Providers Tracie Marx DO Reason for Your Visit 1 hr INTERNAL MEDICINE PHYSICIAN R shoulder/R side cp. Stent placed on sunday. Your Diagnosis Chest pain Tests Performed Below is a partial list of the tests performed during your hospitalization. You may have had other tests and procedures not included in this list. Please discuss all test results with your provider. Basic Metabolic Panel CBC CBC w/ Differential COVID-19 (Novel Coronavirus), Rapid PCR GLUCOSE POC High??Sensitivity??Troponin T Hold Blue Top Tube Magnesium Level ProBNP PTT Troponin T, High Sensitivity Urinalysis Complete/Reflex Culture CXR Primary Care Provider Liset Mitchell MD Advance Directive . Discharge Vitals Temperature: 98 DegF Height: 146 cm Pulse Rate:??91 bpm??High Weight: 67.9 kg Respiratory Rate: 23 br/min ?? Systolic Blood Pressure: 123 mm Hg ?? Diastolic Blood Pressure:??49 mm Hg??Low ?? Oxygen Saturation:??93 %??Low ?? Studies Pending All tests and labs ordered during this hospital stay have been completed unless listed below. Please discuss all pending results with your provider listed above in these instructions. ?? No incomplete studies found What to do next Instructions From Your Doctor During this hospitalization you were??treated for: -?Heart Attack ?? The barrios diagnostic tests and??treatments during your hospital stay were : -?EKG, cardiac enzymes, cardiac monitoring, cardiac catheterization with stent placement ?? You will go home with the following NEW medications: -?? Losartan 25mg daily ?? The following medications were CHANGED or STOPPED: -?It is extremely important you continue to take aspirin and brilinta as directed by your buttonhole maker -? Isosorbide Mononitrate was INCREASED to 60mg daily -? Clonidine was STOPPED -? Clorthalidone was STOPPED -? Lisinopril was STOPPED ?? Activity changes: -?Restrictions in your diet:??Limit fatty foods and salt in your diet -?Restrictions in your activities: Please follow up with cardiac rehab who will slowly increase your activity ?? Who to follow up with after being discharged from the hospital: -?Please follow up with your PCP within 1 week -?? You will follow up with cardiology and cardiac rehab outpatient ?? Reasons to call your primary care doctor or hospital physician: -?You notice an increased fatigue,??you have slight chest pain/pressure, or are starting to havea little more difficulty breathing -?? You have any other concerns that you think a doctor should evaluate??or questions about your care ?? Reasons to immediately return to the emergency room or call 911: -?You have severe shortness of breath or chest pain, you pass out, you have signs of stroke suchas weakness of one side of your face/body or difficulty speaking - You have any other concerns that you think require emergency management?? Discharge Orders You Need to Schedule the Following Appointments Follow Up with??Mone MALDONADO, Richard Duffy Where: [address] [place] [address], [address] [facility] [place] [address]- Follow Up with??Liset Mitchell MD When:??Within 1 week Where: [address] [place] [id number]- Discharge Medications HERMAN CORTES :1945 Visit Date:07/07/2022 Medications: Please continue your medications until treatment is completed or stopped by your provider. Medications not listed below should be discontinued. Discuss any questions related to medications with your provider. What How Much When Instructions Next Dose New Losartan (losartan 25 mg oral tablet) 1 tab(s) Oral Daily Pickup at [facility]/pharmacy #[id number] En??la manana? Changed Isosorbide Mononitrate (isosorbide mononitrate 30 mg oral tablet, extended release) 2 tab(s) Oral Daily Pickup at [facility]/pharmacy #[id number] En[place] Unchanged Acetaminophen (acetaminophen 500 mg oral tablet) 1 tab(s) Oral 3 times a day as needed for Pain , Mild Brandan sea necesario Unchanged Albuterol (Albuterol (Eqv-Proventil HFA) 90 mcg/ inh inhalation aerosol) 2 puff(s) Inhalation Every 6 hours Unchanged Aspirin (aspirin 81 mg oral delayed release tablet) 1 tab(s) Oral Daily En??la manana Unchanged Atorvastatin (atorvastatin 80 mg oral tablet) 1 tab(s) Oral Daily at Bedtime Todos los curry a la hora de dormir Unchanged Diclofenac Topical (diclofenac 1% topical gel) 1 crescencio Topically 4 times a day 4 PM Unchanged Fluticasone Nasal (fluticasone 50 mcg/ inh nasal spray) 1 spray(s) Nares, Both Twice a day Ala hora de dormir Unchanged Insulin Glargine (Lantus Solostar Pen 100 units/ mL subcutaneous solution) 28 unit(s) Subcutaneous Injection Daily at Bedtime Todos los curry a la hora de dormir Unchanged Latanoprost Ophthalmic (latanoprost 0.005% ophthalmic solution) 1 Drops Both eyes Daily at Bedtime Todos los curry a la hora de dormir Unchanged Lidocaine Topical (lidocaine 5% topical film) 1 patch(es) Topically Daily as needed for Pain , Mild remove after 12 hours ?? Brandan sea necesario Unchanged Metoprolol (metoprolol 25 mg oral tablet, extended release) 1 tab(s) Oral Daily En??la manana Unchanged mirabegron (Myrbetriq 25 mg oral tablet, extended release) 1 tab(s) Oral Daily do not crush or chew ?? En??la manana Unchanged Nitroglycerin (nitroglycerin 0.4 mg sublingual tablet) 1 tab(s) Sublingual Every 5 minutes as needed for Chest Pain Brandan sea necesario para el dolorde pecho Unchanged Omeprazole (omeprazole 20 mg oral delayed release tablet) 1 tab(s) Oral Daily En??la manana Unchanged Sertraline (sertraline 50 mg oral tablet) 1 tab(s) Oral Daily En??la manana Unchanged Simethicone (Gas Relief Extra Strength 125 mg oral tablet, chewable) TAKE 1 TABLET BY MOUTH NEEDED AFTER MEALS AND AT BEDTIME FOR GAS ?? Brandan sea necesario Unchanged Spironolactone (spironolactone 25 mg oral tablet) 1 tab(s) Oral Daily En??la manana Unchanged Ticagrelor (ticagrelor 90 mg oral tablet) 1 tab(s) Oral Twice a day Mehrdad corea Pharmacy Information [facility]/pharmacy #[id number]: [address], [place] [id number] [phone] ?? What How Much When Comments Stop Taking Chlorthalidone (chlorthalidone 25 mg oral tablet) 1 tab(s) Oral Daily Stop Taking Clonidine (cloNIDine 0.2 mg/ 24 hr transdermal film, extended release) 1 patch(es) Topically Every week Stop Taking Lisinopril (lisinopril 5 mg oral tablet) 1 tab(s) Oral Daily Test Results Below is a partial list of the most recent Laboratory test results done prior to this discharge. You may have had other tests and procedures not included in this list. Please discuss all test resultswith your provider. Basic Metabolic Panel (07/12/2022) ???Sodium - 138 mmol/L???Potassium - 4.4 mmol/L???Chloride - 103 mmol/L???Bicarbonate Level - 23 mmol/L???Anion Gap - 12???Glucose Level - 167 mg/dL???BUN - 25 mg/dL???Creatinine-Blood - 1.0 mg/dL???Estimated GFR Creatinine - 58 ML/MIN/1.73 M2???Calcium - 9.1 mg/dL CBC (07/12/2022) ???WBC - 8.0 k/mm3???RBC - 3.30 m/mm3???Hgb - 10.3 Gm/dL???Hct - 30.4 %???MCV - 92.1 femtoliters???MCH - 31.2 pg???MCHC - 33.9 g/dL???Platelet Count - 246 k/mm3???RDW-SD - 43.3 femtoliters???MPV - 10.5 femtoliters???Nucleated RBC (Automated) - 0.0 #/100 WBC'S???Abs. NRBC - 0.0 k/mm3 CBC w/ Differential (07/07/2022) ???WBC - 7.6 k/mm3???RBC - 3.48 m/mm3???Hgb - 10.5 Gm/dL???Hct - 31.5 %???MCV - 90.5 femtoliters???MCH - 30.2 pg???MCHC - 33.3 g/dL???Platelet Count - 212 k/mm3???RDW-SD - 42.1 femtoliters???MPV - 10.8 femtoliters???Nucleated RBC (Automated) - 0.0 #/100 WBC'S???Abs. NRBC - 0.0 k/mm3???Abs. Neut - 4.8 k/mm3???Abs. Lymph - 1.9 k/mm3???Abs. [place] - 0.6 k/mm3???Abs. Eo - 0.2 k/mm3???Abs. Baso - 0.1 k/mm3???Neut % - 63.5 %???Lymph % - 25.5 %???[place] % - 7.4 %???Eos % - 2.2 %???Baso % - 0.7 %???Imm Gran - 0.7 %???Abs. Imm Gran - 0.1 k/mm3 COVID-19 (Novel Coronavirus), Rapid PCR (07/07/2022) ???COVID-19 by RT-PCR - NEGATIVE GLUCOSE POC (07/12/2022) ???Glucose, POC - 264 mg/dL High??Sensitivity??Troponin T (07/07/2022) ???High Sensitivity Troponin (HSTnT) - 469 ng/L Hold Blue Top Tube (07/07/2022) ???Hold Blue Top - SPECIMEN DISCARDED AFTER 4 HOURS. Magnesium Level (07/12/2022) ???Magnesium - 1.8 mg/dL ProBNP (07/07/2022) ???Nt-Probnp - 537 pg/mL PTT (07/10/2022) ???APTT - 52.6 seconds Troponin T, High Sensitivity (07/08/2022) ???High Sensitivity Troponin (HSTnT) - 515 ng/L Urinalysis Complete/Reflex Culture (07/10/2022) ???Appear/Color, Urine - YELLOW???Clarity - CLEAR???Specific [place], Urine - 1.021???pH, Urine - 6.0???Albumin, Urine - NEGATIVE???Glucose, Urine - NEGATIVE???Ketones, Urine - NEGATIVE???Bilirubin, Urine - NEGATIVE???Hemoglobin, Urine - NEGATIVE???Nitrite, Urine - NEGATIVE???Leukocyte, Urine - 2+?? ?Urobilinogen - NORMAL???WBC's, Urine - 10 /HPF???RBC's, Urine - 1 /HPF???Bacteria - SLIGHT???Squamous Epith - 12 /HPF???Hyaline Cast - 1 LPF???Mucus - SLIGHT???Culture Indication - CULTURE NOT INDICATED Allergies (NKA means No Known Allergies) lisinopril??(itching, cough) Mold??(cough) Problems Active Problems??(15) Acid reflux?? Asthma?? Asthma - PFTs 200 at [facility], mild obst defect - sees pulm?? Depression?? Diabetes - sees endocrinology?? Diastolic dysfunction - echo in prior records 08/01/2016 EF 50-55%, grade 2 diastolic dysfunction, mil?? GERD (gastroesophageal reflux disease)?? Hyperlipidemia?? Hyperlipidemia?? Hyperlipidemia LDL goal < 100?? Hypertension?? Hypertension?? Insulin dependent type 2 diabetes mellitus?? Obese class I?? ROXIE (obstructive sleep apnea) - sleep study [facility] 12/28/2008 - in old records?? Education Materials Below is the list of Educational Leaflet Providered with your Discharge Instructions. Losartan Oral Tablet?? Understanding Coronary Artery Disease (CAD)?? Discharge Instructions for Coronary Angioplasty and Stenting?? Discharge Instructions for Cardiac Catheterization?? Taking Your Medicines After a Heart Attack?? Living Well After a Heart Attack?? Symptoms of a Heart Attack?? Valuables and Belongings I fully understand and agree that [facility] accepts no responsibility for all my personal property including clothing, toilet articles, radios, jewelry, dentures, hearing aids, rings, money, or any other property that is in my possession or is brought to me after admission. I understand certain valuables may be placed in a hospital safe for a short period of time. I understand that the hospital is not liable for loss or damage due to accident, fire, or other natural occurrence while said property is in the safe. I accept full responsibility for any personal property that I keep with me, and will not hold the hospital responsible in case of loss or disappearance. I acknowledge that i have been encouraged to send valuables and belongings home. ?? Date for Pt to Sign Valuables/Belongings: 07/07/22 22:44:00 ?? Other Discharge Information ?? Wound Assessment?? Wound Assessment?? Wound Location I: Groin, right Wound Type I: Surgical Wound I, Present on Admission: No ? Pulmonary Rehab Status?? Pulmonary Rehab Discharge Status?? Respiratory Rate: 23 br/min ? Cardiac Rehab Assessment?? Cardiac Rehab Inpatient Assessment?? Comments-Education: AK AND PCI EDUCATION Comments-Exercise Activity: phase 2 referral Comments-Nutrition: per RD Comments-Lipids: meds and diet Common Emergency Awareness Tips IS IT A STROKE? Act FAST and Check for these signs: FACE Does the face look uneven? ARM Does one arm drift down? SPEECH Does their speech sound strange? TIME Call at any sign of stroke ?? Heart Attack Signs Chest discomfort: Most heart attacks involve discomfort in the center of the chest and lasts more than a few minutes, or goes away and comes back. It can feel like uncomfortable pressure, squeezing, fullness or pain. Discomfort in upper body: Symptoms can include pain or discomfort in one or both arms, back, neck, jaw or stomach. Shortness of breath: With or without discomfort. Other signs: Breaking out in a cold sweat, nausea, or lightheaded. Remember, MINUTES DO MATTER. If you experience any of these heart attack warning signs, call to get immediate medical attention! ?? Smoking can increase your chances of developing chronic health problems and can cause harmful effects to other family members in your house. If you smoke, you are strongly encouraged to quit. Please call [facility] [facility] at [phone] or [phone] ([phone]) or log in to [email or web address] for referrals to smoking cessation programs. ?? 983 Suicide & Crisis Lifeline is available 18/09 if you or someone you know needs to find a reason to keep living. By calling 578 you'll be connected to a skilled, trained counselor at a crisis center in your area. INPATIENT DISCHARGE INSTRUCTIONS SIGNATURE PAGE HERMAN CORTES Location:[facility] Registration Date and Time:07/07/2022 20:38 EDT Primary Care Physician: Liset Mitchell MD, Attending Physician: Maia Ace MD, I HERMAN CORTES, have received the above patient education materials/instructions and have verbalized understanding. If ambulance or transport services are being used I further acknowledge being given a choice of service. ?? If you need to contact me, please call me at this number: . Patient/Water Resources Engineer Name: Patient/Water Resources Engineer Signature: Relationship to Patient: Witness Name/Signature: Date: * Linda Moctezuma RN: PERFORM Event Display: Patient Education Leaflets Authored Date: [id number] Losartan Oral Tablet ?? [id number] Losartan Oral Tablet Brands: Ruslan Lewis This medicine is used for the following purposes: ??? diabetic complications ??? heart failure ??? high blood pressure ?? Instructions This medicine may be taken with or without food. This medicine will work best if you take it at about the same time every day. Keep the medicine at room temperature. Avoid heat and direct light. Talk to your doctor before eating foods with large amounts of potassium. Potassium is often found in salt substitutes. Your doctor may want you to reduce the amount of these foods. It is important that you keep taking each dose of this medicine on time even if you are feeling well. If you forget to take a dose on time, take it as soon as you remember. If it is almost time for thenext dose, do not take the missed dose. Return to your normal schedule. Do not take 2 doses at one time. Tell your doctor and pharmacist about all your medicines. Include prescription and rzbt-jzm-ldprsmlekmbnucco, vitamins, and herbal medicines. ?? Cautions Tell your doctor and pharmacist if you ever had an allergic reaction to a medicine. Do not use the medication any more than instructed. This medicine may cause dizziness or fainting, especially after exercising or in hot weather. Be very careful when standing or sitting up quickly. Your ability to stay alert or to react quickly may be impaired by this medicine. Do not drive or operate machinery until you know how this medicine will affect you. Please check with your doctor before drinking alcohol while on this medicine. Contact your doctor if you notice a change in the amount or darkening of your urine. Tell the doctor or pharmacist if you are , planning to be , or . This medicine can hurt a new baby in the womb. If you become while on this medicine, tell your doctor immediately. Your doctor may switch you to a different medicine. Contact your doctor immediately if you experience any swelling of your hands, face, lips, eyes, throat or tongue. Do not start or stop any other medicines without first speaking to your doctor or pharmacist. Do not share this medicine with anyone who has not been prescribed this medicine. ?? Side Effects The following is a list of some common side effects from this medicine. Please speak with your doctor about what you should do if you experience these or other side effects. ??? dizziness Call your doctor or get medical help right away if you notice any of these more serious side effects: ??? swelling of the face, mouth, tongue or throat ??? low blood pressure A few people may have an allergic reaction to this medicine. Symptoms can include difficulty breathing, skin rash, itching, swelling, or severe dizziness. If you notice any of these symptoms, seek medical help quickly. ?? Extra Please speak with your doctor, nurse, or pharmacist if you have any questions about this medicine. ?? [email or web address] IMPORTANT NOTE: This document tells you briefly how to take your medicine, but it does not tell youall there is to know about it. Your doctor or pharmacist may give you other documents about your medicine. Please talk to them if you have any questions. Always follow their advice. There is a more complete description of this medicine available in Kazakh. Scan this code on your smartphone or tablet or use the web address below. You can also ask your pharmacist for a printout. If you have any questions, please ask your pharmacist. The display and use of this drug information is subject to Terms of Use. Copyright(c) 2022 [employer]. ?? [employer]. All rights reserved. This information is not intended as a substitute for professional medical care. Always follow your healthcare professional's instructions. ?? * Jose Elias DAMON, Linda Cheney: PERFORM Event Display: Patient Education Leaflets Authored Date: [id number] Understanding Coronary Artery Disease (CAD) ?? 19112 Understanding Coronary Artery Disease (CAD) Your heart is a muscle. To work right, this muscle needs a steady supply of oxygen. The coronary arteries are blood vessels that send oxygen-rich blood to the heart muscle. Coronary artery disease (CAD) is when there???s a problem in these blood vessels. Healthy artery. A healthy coronary artery has no blockages. Blood easily flows through it. Healthy arteries can supply all the oxygen-rich blood your heart muscle needs. Healthy artery. Damaged artery. Some things can damage the lining of an artery. These include smoking, high blood pressure, and high blood sugar. CAD starts when this damage leads to the buildup of plaque along the artery wall. Plaque is a substance made of cholesterol and other fatty deposits. Plaque narrows the arteries that send blood to your heart muscle. This is called atherosclerosis. Damaged artery. Narrowed artery. As more plaque builds up, an artery has trouble sending blood to your heart musclewhen it's needed the most, such as during exercise. You may not feel any symptoms when this happens. Or you may feel pressure, tightness, aching, or pain in your chest, jaw, neck, back, or arm. This is called angina. Narrowed artery. Blocked artery. A piece of plaque can break off. This is called ruptured plaque. It can fully blockthe artery. But more often, a blood clot forms on a piece of ruptured plaque. Together these block the narrowed artery. Then blood can't reach the heart muscle. Right away, part of the heart muscle becomes damaged and stops working. You may feel crushing pressure or pain in or around your chest. This is a heart attack (acute myocardial infarction). It???s a medical emergency. Blocked artery. Last Reviewed Date: 2021 ?? 3873-6351 [employer]. All rights reserved. This information is not intended as a substitute for professional medical care. Always follow your healthcare professional's instructions. ?? * Jose Elias DAMON, Linda Cheney: PERFORM Event Display: Patient Education Leaflets Authored Date: [id number] Discharge Instructions for Coronary Angioplasty and Stenting ?? 23536 Discharge Instructions for Coronary Angioplasty and Stenting During your angioplasty,??a healthcare provider inserts a thin tube called a catheter into a blood vessel??in your groin or wrist. The??catheter is guided through your blood vessel to a blocked area in one of your heart???s arteries. The healthcare provider inflates a tiny balloon at the tip of thecatheter and stretches the blocked vessel so blood can flow freely. The balloon is then deflated and removed with the catheter. The healthcare provider may also insert a metal mesh tube called a stent in the blocked vessel.??The stent helps the vessel stay open. You may get several stents if you have blockages in more than one of your arteries. Home care ??? Ask someone to drive you to your appointments for the next few days. ??? Rest for?? 2to 3??days after the procedure. Most people are able to go back to normal activity within a few days. ??? Check your incision for signs of infection every day for a week.??Signs of infection include redness, swelling, drainage, or warmth. It's normal to have a small bruise or bump where the catheter was inserted. Take your temperature if you have fever or chills. ??? Take your medicines exactly as directed. Don???t skip doses. It's important to take aspirin or other similar medicines for as long as your provider advises. If you were also prescribed clopidogrel, prasugrel, or ticagrelor, it's very important to take these medicines as well. These medicines prevent clots that could cause a heart attack. If you have??a problem with any of your medicines, call your healthcare provider right away. And call your provider right away if you have bleeding,??but go to the emergency room if the bleeding can't be controlled. ??? Unless told otherwise, drink plenty of fluids to help flush your bodyof the dye that was used during your angioplasty. Let your healthcare provider know if the color ofyour urine changes and doesn't return to normal color. ??? Eat a healthy diet that is low in fat, salt, extra sugar, and cholesterol. Ask your healthcare??team for menus and other diet information. ??? Exercise according to your healthcare team's advice. Depending on your case, your team may recommend you start a cardiac rehabilitation program. Cardiac rehab is an exercise program in which trained healthcare staff monitor your progress and stress on your heart while you exercise. Ask how to enroll if your team recommends this program. ??? Don't swim or take a bath for 5 to 7 days. You may shower the day after the procedure (or as your healthcare provider instructed). This keeps the incisionsite from getting too wet and possibly infected until the skin and artery can heal. ?? Follow-up care ??? Make a follow-up appointment as directed. Follow-up appointments are usually scheduled for 2 to 4 weeks after an angioplasty or coronary stent procedure. ??? Have a yearly checkup to make sure you are still doing well and not having any new symptoms. ??? Don't wait for a follow-up appointment if your medicines are not working or you are having heart-related symptoms. ?? When to call your healthcare provider Call your healthcare provider right away if you have any of the following: ??? Chest pain or a return of the symptoms you had before the angioplasty that are promptly relieved with rest or medicines ? Fever above?? 100.4?? F??( 38.0??C) (or 1 degree or higher above your normal temperature); or other signs of infection (redness, swelling, drainage, or warmth at the incision site of the leg or wrist) ? Bleeding, bruising, or a large swelling where the catheter (tube) was inserted ? Call 911 if any of the following occur: ??? Unusual or persistent chest pain, or a return of thesymptoms you had before the angioplasty; and they are not promptly relieved with rest or medicines ??? Constant or increasing pain or numbness in your leg, or if your leg looks blue or feels cold ???Unusual shortness of breath ??? Feeling faint ??? Trouble speaking or weakness in any muscle ??? You have blood in your urine; bloody, black, or tarry stools; or any other kind of significant bleeding ?? Last Reviewed Date: 2021 ?? 1822-0059 [employer]. All rights reserved. This information is not intended as a substitute for professional medical care. Always follow your healthcare professional's instructions. ?? Laboratory * SPowerscrimacho , CIS S: TRANSCHAZEL Jack MD, Alf S: VERIFY Event Display: Result: Authored Date: [id number] Chest 2 Views Frontal and Lat Hx of Present Illness: Pt presents from home c o hypotension R side chest shoulder pain. Pt had stent placed on Sunday.; Reason: Angina; Clinical Question(s): Pneumonia COMPARISON: 04/07/2018 FINDINGS: LINES AND TUBES: None. LUNGS AND PLEURA: Clear lungs. Normal pulmonary vascularity. No pleural effusion. No pneumothorax. HEART, MEDIASTINUM AND MICHELINE: Heart is normal in size. Normal mediastinal and hilar contour. BONES AND SOFT TISSUES: No acute abnormality. IMPRESSION: No acute abnormality. WSN: [id number] Ordering Physician: Jimena Pathak Dictated By: Alf Jack MD Dictated Date/Time: 07/07/22 7:29 pm Reviewed By: Alf Jack MD Signed By: Alf Jack MD Signed Date/Time: 07/07/22 7:29 pm Transcribed By: BEAR Transcribed Date/Time: 07/07/22 7:28 pm Patient Care team information Care Team Personnel Name: Antionette Zaragoza RN Position: [facility] RN Member Role: Primary Care Nurse Name: Enedina Silveira Position: [facility] RN Member Role: Primary Care Nurse Name: Yesenia Bailon NP Position: [facility] Associate Professional Member Role: Primary Care Nurse Address: Address: [address] [place] [address]- [place] Name: Brandy Trejo RN Position: [facility] RN Member Role: Primary Care Nurse Name: Ileana Angel NP Position: [facility] PCO Associate Professional Member Role: Primary Care Nurse Address: Address: [address] [place] [address]- [place] Name: Heidi Cerna RN Position: [facility] RN Member Role: Primary Care Nurse Name: Ileana Mccormack RN Position: [facility] RN Member Role: Primary Care Nurse Name: Liset Mitchell MD Position: Reference Physician Member Role: PCP Address: Address: [address] [place] [address]- Name: Geraldine Fenton RN Position: [facility] Director Of Instruction Member Role: Primary Care Nurse Name: Luther VIDAL Attending Position: [facility] ED Medicine MD Name: Linda Albrecht Position: [facility] ED RN W/OE and Tasks Member Role: Patient Care Provider Name: Alisha Houser Position: [facility] ED OA Charge Member Role: ED Vocational Nurse Lvn Name: Jimena Pathak DO Position: [facility] Resident Member Role: ED Resident Address: Address: [address] [place] [address]- [place] Name: Jane Lino Position: [facility] ED TA [facility] Member Role: Morgue Attendant Care Team Related Persons Name: RACHEAL HICKMAN Address: home [address] [place] [address]
--- OUTSIDE RECORDS SUMMARY | 2023-11-03 00:27 | XMS_ITS | Continuity of Care Document ---
Author Organization [facility] Address [address] [place] [address]- Care Team Providers Care Silver Solution Mixer Name Role Phone Chava Rosen MD, Romina Duffy Primary Care Physician [phone] [place] [facility] [place]20 [facility] [address] [place] [id number] Allergies, Adverse Reactions, Alerts Substance Reaction [...] in AM, 0 Refills, Maintenance, 08/21/16 16:52:13, Rose Start Date: 08/21/16 Status: Ordered Flovent HFA [...] test BG 2x daily, DxE10.9 [facility]# [id number], 08/19/18 14:17:22 EDT, Compound Start Date: 08/19/18 [...] Maintenance, :32:00 EST, Route to Pharmacy Electronically, [facility]/pharmacy #[id number], Partial fill upon patient request if the prescription is for a schedule II opioid . Start Date: 01/29/20 Stop Date: 10/25/20 Status: Ordered hydrALAZINE 25 mg oral tablet Refills 0, Maintenance, 05/22/18 13:48:28 EDT Start Date: 05/22/18 Status: Ordered Januvia 100 mg oral tablet 1 tablet = 100 mg, By Mouth, Daily, # 90 tablet, 3 Refills, Maintenance, 02/09/20 9:46:00 EST, Tablet, [facility]/pharmacy #[id number], 150, cm, 02/14/19 9:21:00 EST, Height, 67.5, kg, 08/26/18 12:02:00 EDT, Dry Weight Start Date: 02/09/20 Stop Date: 02/03/21 Status: Ordered Lantus Solostar Pen 100 units/mL subcutaneous solution = 30 units, Subcutaneous Injection, Daily, Take 30 units daily at night. E11.65, # 50 mL, 5 Refills, Maintenance, 02/08/20 15:57:00 EST, Solution, [facility]/pharmacy #[id number], 150, cm, 02/14/19 9:21:00 EST, Height, [...] 05/06/21 Stop Date: 04/20/24 Status: Ordered Pen Perry, 32 G x 4 mm BD Ultra [...] 16:12:20 EST, Inhaler, Route to Pharmacy Electronically, [id number], [facility]/pharmacy #[id number] Start Date: 01/07/18 Status: [...] Inform ant Asthma - PFTs 200 at [place] , mild obst defect - sees pulm(Confirmed) Active Diabetes - sees endocrinology(Confirmed) Active Diastolic dysfunction - echo in prior records 08/01/2016 EF 50-55%, grade 2 diastolic dysfunction, mild hypokinesis(Confirmed) Active Acid reflux(Confirmed) Active Hyperlipidemia(Confirmed) Active Hyperlipidemia LDL goal < 100(Confirmed) Active Hypertension(Confirmed) Active ROXIE (obstructive sleep apnea ) - sleep study [facility] 12/28/2008 - in old records(Confirmed) Active Social History Social History Type Response Smoking Status Never smoker entered on: 07/05/16 Sex
--- OUTSIDE RECORDS SUMMARY | 2023-11-03 00:27 | XMS_ITS | Continuity of Care Document ---
Author Organization [facility] Address [address] [place] [address]- Care Team Providers Care Catalogue Clerk Name Role Phone Liset Mitchell MD Primary Care Physician Encounter [facility] Date(s): 11/30/20 - 12/30/20 [facility] [address] [place] [id number] Attending Physician: Admtr, Ar8 Admitting Physician: Admtr, Ar8 Referring Physician: Admtr, [...] Gm, 11 Refills, Maintenance, 12/15/20 10:14:00 EDT, [facility]/pharmacy #[id number], Partial fill upon patient request if the [...] in AM, 0 Refills, Maintenance, 08/21/16 16:52:13, [place] Start Date: 08/21/16 Status: Ordered Flovent HFA [...] use to test BG 2x daily, DxE10.9 [facility]# [id number], 08/19/18 14:17:22 EDT, Compound Start Date: 08/19/18 [...] to check blood sugar 3 times daily. . 90-day supply., 07/16/19 11:23:00 EDT, Compound, 150, [...] Maintenance, Check blood sugar 3 times daily. . 90-day supply., 07/20/20 9:07:00 EDT, Compound, 150, [...] 3 Refills, Maintenance, 07/20/20 9:06:00 EDT, Tablet, [facility]/pharmacy #[id number], 150, cm, 07/20/20 8:34:00 EDT, Height, 67.5, kg, 08/26/18 12:02:00 EDT, Dry Weight Start Date: 07/20/20 Stop Date: 07/15/21 Status: Ordered Lantus Solostar Pen 100 units/mL subcutaneous solution See Instructions, Take 35 units daily at night. E11.65, # 30 mL, 5 Refills, Maintenance, 07/20/20 9:05:00 EDT, Solution, [facility]/pharmacy #[id number], 150, cm, 07/20/20 8:34:00 EDT, Height, [...] tablet, 11 Refills, Maintenance, 12/15/20 10:15:00 EDT, [facility]/pharmacy #[id number], Partial fill upon patient request if the prescription is for a schedule II opioid drug., 150, cm, 07/20/20 8:34:00 EDT, Height Start Date: 12/15/20 Status: Ordered Multivitamin By Mouth, Daily, 0 Refills, Maintenance, 01/07/18 15:37:22 EST Start Date: 01/07/18 Status: Ordered Pen Rueter, 32 G x 4 mm BD Ultra [...] 16:12:20 EST, Inhaler, Route to Pharmacy Electronically, [id number], [facility]/pharmacy #[id number] Start Date: 01/07/18 Status: Ordered raNITIdine [...] Inform ant Asthma - PFTs 200 at [place] , mild obst defect - sees pulm(Confirmed) Active Diabetes - sees endocrinology(Confirmed) Active Diastolic dysfunction - echo in prior records 08/01/2016 EF 50-55%, grade 2 diastolic dysfunction, mild hypokinesis(Confirmed) Active Acid reflux(Confirmed) Active Hyperlipidemia(Confirmed) Active Hyperlipidemia LDL goal < 100(Confirmed) Active Hypertension(Confirmed) Active ROXIE (obstructive sleep apnea ) - sleep study [facility] 12/28/2008 - in old records(Confirmed) Active Social History Social History Type Response Smoking Status Never smoker entered on: 07/05/16 Sex
--- OUTSIDE RECORDS SUMMARY | 2023-11-03 00:27 | XMS_ITS | Continuity of Care Document ---
Author Organization [facility] Address [address] [place] [address]- Care Team Providers Care Mine Inspector Federal Name Role Phone Chava Rosen MD, Romina Duffy Primary Care Physician Encounter [facility] [place](s): 09/03/19 - 10/03/19 [facility] [address] [place] [address] [facility] Allergies, Adverse Reactions, Alerts Substance Reaction Severity [...] in AM, 0 Refills, Maintenance, 08/21/16 16:52:13, [place] Start Date: 08/21/16 Status: Ordered Flovent HFA [...] use to test BG 2x daily, DxE10.9 [facility][NOTE 3]# [id number], 08/19/18 14:17:22 EDT, Compound Start Date: 08/19/18 [...] Daily, Take 1 tablet daily in the [facility]. E11.65. 90-day supply., # 90tablet, 1 Refills, Maintenance, 07/16/19 11:24:00 EDT, ER Tablet, [facility]/pharmacy #[id number], 150, cm, 02/14/19 9:21:00 EST, Height, 67.5, kg, 08/26/18 12:02:0... Start Date: 07/16/19 Status: Ordered hydrALAZINE 25 mg oral tablet Refills 0, Maintenance, 05/22/18 13:48:28 EDT Start Date: 05/22/18 Status: Ordered Januvia 100 mg oral tablet 1 tablet = 100 mg, By Mouth, Daily, # 90 tablet, 3 Refills, Maintenance, 02/14/19 9:46:00 EST, Tablet, [facility]/pharmacy #[id number], 150, cm, 02/14/19 9:21:00 EST, Height, 67.5, kg, 08/26/18 12:02:00 EDT, Dry Weight Start Date: 02/14/19 Stop Date: 02/09/20 Status: Ordered Lantus Solostar Pen 100 units/mL subcutaneous solution = 30 units, Subcutaneous Injection, Daily, Take 30 units daily at night. E11.65, # 30 mL, 5 Refills, Maintenance, 08/12/19 15:57:00 EDT, Solution, [facility]/pharmacy #[id number], 150, cm, 02/14/19 9:21:00 [...] 05/06/21 Stop Date: 04/20/24 Status: Ordered Pen [place], 32 G x 4 mm BD Ultra [...] 16:12:20 EST, Inhaler, Route to Pharmacy Electronically, [id number], [facility]/pharmacy #[id number] Start Date: [...] Inform ant Asthma - PFTs 200 at [place] , mild obst defect - sees pulm(Confirmed) Active Diabetes - sees endocrinology(Confirmed) Active Diastolic dysfunction - echo in prior records 08/01/2016 EF 50-55%, grade 2 diastolic dysfunction, mild hypokinesis(Confirmed) Active Acid reflux(Confirmed) Active Hyperlipidemia(Confirmed) Active Hyperlipidemia LDL goal < 100(Confirmed) Active Hypertension(Confirmed) Active ROXIE (obstructive sleep apnea ) - sleep study [facility] 12/28/2008 - in old records(Confirmed) Active Social History Social History Type Response Smoking Status Never smoker entered on: 07/05/16 Sex
--- OUTSIDE RECORDS SUMMARY | 2023-11-03 00:27 | XMS_ITS | Continuity of Care Document ---
Author Organization [facility] Charmaine [employer] [facility] Address [address] [place] [address]- Care Team Providers Care Doctor Naturopathic Name Role Phone Liset Mitchell MD Primary Care Physician [facility] [id number] Date(s): 08/15/21 - 09/14/21 [facility] [employer] [facility] [address] [place], [place] [address] Attending Physician: Rah Steve Admitting Physician: AdmtrRah Referring Physician: Admtr, Rah Allergies, Adverse Reactions, Alerts No Known Allergies [...] Mild, # 120 tablet, 0 Refills, Maintenance, 06/26/17 16:52:36 EDT, Tablet Start Date: 08/21/16 Status: [...] 11 Refills, Maintenance, 12/15/20 10:14:00 EDT, [facility]/pharmacy #[id number], Partial fill upon patient request if the [...] in AM, 0 Refills, Maintenance, 08/21/16 16:52:13, [place] Start Date: 08/21/16 Status: Ordered Flovent HFA [...] BG 2x daily, DxE10.9 [facility]# [id number], 08/19/18 14:17:22 EDT, Compound Start Date: 08/19/18 [...] to check blood sugar 3 times daily. E11.. 90-day supply., 07/16/19 11:23:00 EDT, Compound, 150, [...] 0, Maintenance, 05/22/18 13:48:28 EDT Start Date: 3/27/19 Status: Ordered Januvia 100 mg oral tablet See Instructions, [facility], # 90 tablet, 4 Refills, [id number], 150, cm, 07/11/21 9:02:00 EDT, Height, 67.2, kg, 07/11/21 9:02:00 EDT, Dry Weight Start Date: 08/15/21 Status: Ordered Lantus Solostar Pen 100 units/mL subcutaneous solution See Instructions, Take 35 units daily at night. E11.65, # 30 mL, 5 Refills, Maintenance, 07/20/20 9:05:00 EDT, Solution, [facility]/pharmacy #[id number], 150, cm, 07/20/20 8:34:00 EDT, [...] 11 Refills, Maintenance, 12/15/20 10:15:00 EDT, [facility]/pharmacy #[id number], Partial fill upon patient request if the prescription is for a schedule II opioid drug., 150, cm, 07/20/20 8:34:00 EDT, Height Start Date: 12/15/20 Status: Ordered Multivitamin By Mouth, Daily, 0 Refills, Maintenance, 01/07/18 15:37:22 EST Start Date: 01/07/18 Status: Ordered Pen [place], 32 G x 4 mm BD Ultra [...] 16:12:20 EST, Inhaler, Route to Pharmacy Electronically, [id number], [facility]/pharmacy #[id number] Start Date: 01/07/18 Status: Ordered [...] Inform ant Asthma - PFTs 200 at [place] , mild obst defect - sees pulm(Confirmed) [...]
--- OUTSIDE RECORDS SUMMARY | 2023-11-03 00:27 | XMS_ITS | Continuity of Care Document ---
Author Organization [facility] Address [address] [place] [address]- Care Team Providers Care Warehousing Technician Name Role Phone Chava Rosen MD, Romina Duffy Primary Care Physician Encounter [facility] Date(s): 10/24/19 - 11/23/19 [facility] [address] [place] [id number]- [facility] Attending Physician: Admtr, [id number] Admitting Physician: Admtr, [...] in AM, 0 Refills, Maintenance, 08/21/16 16:52:13, [place] Start Date: 08/21/16 Status: Ordered Flovent HFA [...] DxE10.9 [facility]# [id number], 08/19/18 14:17:22 EDT, Compound Start Date: 08/19/18 [...] Maintenance, 07/16/19 11:24:00 EDT, ER Tablet, [facility]/pharmacy #[id number], 150, cm, 02/14/19 9:21:00 EST, Height, 67.5, kg, 08/26/18 12:02:0... Start Date: 07/16/19 Status: Ordered hydrALAZINE 25 mg oral tablet Refills 0, Maintenance, 05/22/18 13:48:28 EDT Start Date: 05/22/18 Status: Ordered Januvia 100 mg oral tablet 1 tablet = 100 mg, By Mouth, Daily, # 90 tablet, 3 Refills, Maintenance, 02/14/19 9:46:00 EST, Tablet, [facility]/pharmacy #[id number], 150, cm, 02/14/19 9:21:00 EST, Height, 67.5, kg, 08/26/18 12:02:00 EDT, Dry Weight Start Date: 02/14/19 Stop Date: 02/09/20 Status: Ordered Lantus Solostar Pen 100 units/mL subcutaneous solution = 30 units, Subcutaneous Injection, Daily, Take 30 units daily at night. E11.65, # 30 mL, 5 Refills, Maintenance, 08/12/19 15:57:00 EDT, Solution, [facility]/pharmacy #[id number], 150, cm, 02/14/19 9:21:00 EST, [...] 05/06/21 Stop Date: 04/20/24 Status: Ordered Pen [place], 32 G x 4 mm BD Ultra [...] 16:12:20 EST, Inhaler, Route to Pharmacy Electronically, [id number], [facility]/pharmacy #[id number] Start Date: 01/07/18 Status: Ordered [...] Inform ant Asthma - PFTs 200 at [place] , mild obst defect - sees pulm(Confirmed) Active Diabetes - sees endocrinology(Confirmed) Active Diastolic dysfunction - echo in prior records 08/01/2016 EF 50-55%, grade 2 diastolic dysfunction, mild hypokinesis(Confirmed) Active Acid reflux(Confirmed) Active Hyperlipidemia(Confirmed) Active Hyperlipidemia LDL goal < 100(Confirmed) Active Hypertension(Confirmed) Active ROXIE (obstructive sleep apnea ) - sleep study [facility] 12/28/2008 - in old records(Confirmed) Active Social History Social History Type Response Smoking Status Never smoker entered on: 07/05/16 Sex
--- OUTSIDE RECORDS SUMMARY | 2023-11-03 00:28 | XMS_ITS ---
- 2.7gjl34si MR NC EMERGE BALLOON. Diameter: 2.5 mm. Length: 12 mm. 2 inflation(s) to a max pressure of: 10 carline. - 2.0xen53xx RX SHOCKWAVE C2 IVL. Diameter: 2.5 mm. Length: 12 mm. 10 inflation(s) to a max pressure of: 10 carline. - .014 x300cm STR HI-TORQUE WIGGLE GUIDEWIRE. Number of passes: 1. - 3.0 x 15mm RAH FRONTIER RX CORONARY STENT SYSTEM. 1 inflation(s) to a max pressure of: 14 carline. - 3.34ena79eq MR NC EMERGE BALLOON. Diameter: 3.5 mm. Length: 12 mm. 1 inflation(s) to a max pressure of: 12 carline. Lesion in Mid RCA: Mid subsection.80% stenosis .The lesion was diffuse and heavily calcified.Culprit lesion. Devices used - 2.0vey95em MR NC EMERGE BALLOON. Diameter: 2.5 mm. Length: 12 mm. 2 inflation(s) to a max pressure of: 12 carline. - 3.5 x 26mm RAH FRONTIER RX CORONARY STENT SYSTEM. 1 inflation(s) to a max pressure of: 12 carline. - 3.72ucn62nk MR NC EMERGE BALLOON. Diameter: 3.5 mm. Length: 12 mm. 1 inflation(s) to a max pressure of: 12 carline. - 4.8tlt68gw RX NC EUPHORA BALLOON. Diameter: 4 mm. Length: 20 mm. 1 inflation(s) to a max pressure of: 12 carline. - Balloon of 4.0 x 12mm RAH FRONTIER RX CORONARY STENT SYSTEM. 1 inflation(s) to a max pressure of: 12 carline. Lesion in Prox RCA: Ostial. Devices used - 4.0 x 12mm RAH FRONTIER RX CORONARY STENT SYSTEM. 2 inflation(s) to a max pressure of: 12 carline. - 4.4sxe21im RX NC EUPHORA BALLOON. Diameter: 4 mm. Length: 20 mm. Conclusions Diagnostic Summary 76-year-old female with hypertension, hyperlipidemia, diabetes mellitus type 2 who presented to the hospital with NSTEMI. LVEDP 11 mmHg. No significant pullback gradient across aortic valve Diagnostic angiogram revealed 80% heavily calcified diffuse lesion in the mid RCA which is the culprit lesion. Patient also has 70% stenosis in the mid segment of the distal RCA with a calcified nodule there. The PDA has multiple 70% tandem lesion. Proceed with intervention of the mid and distal RCA. Diagnostic Recommendations Proceed with intervention of the mid and distal RCA. Interventional Summary Distal RCA: Shockwave atherectomy performed using 2.5 mm X12 millimeter NC balloon. 3.0 mm X 15 mm Rah frontier ITZ was placed and postdilated with 3.5 mm X12 millimeter NC balloon. IVUS performed which did not show any complication. Mid RCA: Rotational atherectomy performed using 1.5 mm bar. IVUS performed. We placed a 3.5 mm X 26 mm Rah frontier ITZ and postdilated with 3.5 mm X12 millimeter NC balloon distally and 4.0 mm X 20 mm NC balloon proximally. Proximal RCA: We placed a 4.0 mm X12 millimeter Rah frontier ITZ in the proximal RCA up to the ostium and postdilated with 4.0 mm X 20 mm NC balloon. Interventional Recommendations Continue aspirin 81 mg p.o. indefinitely and Brilinta 90 mg p.o. twice daily 1 year postintervention. Staged PCI of the LAD and OM2 in 3 to 4 weeks as an outpatient. Guideline directed medical management for coronary artery disease. Follow-up with Dr. Kelley Us at the [facility] creative coordinator office in 6 to 8 weeks. Signatures * Event Display: Cardiac Line Analyst Report Authored Date: [id number] History and physical note * Radha MALDONADO, Arcenio Tolbert: PERFORM Event Display: History and Physical Hospital Authored Date: [id number] Patient: ??NATALI CORTES ? Age:??76 Years?Sex:??Female?:??1945?? Chief Complaint/Reason for Consultation Transfer from [facility] for NSTEMI. History of Present Illness 76-year-old female??with history of insulin-dependent diabetes mellitus, hypertension, hyperlipidemia,??asthma, GERD, and depression??who presented to [facility] on 06/26/2022??with complaints of chest pain.?? She reported a 3-day history of intermittent??chest pain radiating to her??shoulder, neck, and back.?? The pain was getting worse on the day of admission, and thus she presented to the hospital.?? Pain was aggravated by activity and relieved by rest. ??She had not had any similar episodes in the past.?? She denied any associated fever, coughing,??shortness of breath, palpitations,??diaphoresis, vomiting, abdominal pain, diarrhea, or urinary symptoms.?? When evaluated by the admitting team at [facility], she was chest pain-free. ?? Work-up at [facility] included EKG, which showed sinus bradycardia??with T wave inversions in the inferior leads compared to August 2021.?? Chest x-ray was clear??without evidence for fluid overload. ??Initial troponin??I was elevated at 416,??and subsequently elevated to 435,??with??creatinine 0.88,??and the patient was started on heparin drip, high-dose atorvastatin,??and aspirin.?? She was maintained on her home blood pressure medications.?? Beta-myra was not started due to bradycardia.?? Echocardiogram was obtained showing EF of 40 to 45% with mild global hypokinesis, more pronounced in the mid anterolateral and mid inferolateral segments.?? The patient was transferred here to [facility] for cardiac catheterization.?? She remains chest pain-free at this time, afebrile??and hemodynamically stable on the medical floor. Review of Systems Other than those positives as noted in the HPI above, the remaining comprehensive 14-point review of systems is negative. Objective ? Vital Signs?? Temperature: 98 DegF (06/27/22 13:32:00) Temperature Route: Oral (06/27/22 13:32:00) Pulse Rate: 63 bpm (06/27/22 13:32:00) Respiratory Rate: 18 br/min (06/27/22 13:32:00) Systolic Blood Pressure: 132 mm Hg (06/27/22 13:32:00) Diastolic Blood Pressure:??49 mm Hg??Low (06/27/22 13:32:00) Blood pressure sites: Arm, left (06/27/22 13:32:00) Mean Arterial Pressure: 77 mm Hg (06/27/22 13:32:00) Pulse Pressure: 83 mm Hg (06/27/22 13:32:00) Oxygen Saturation: 99 % (06/27/22 13:00:00) Liters per Minute: 0 L/min (06/27/22 13:00:00) Mode of Delivery (Oxygen): Room air (06/27/22 13:00:00) Early Warning Score: 0 (06/27/22 16:22:56) ? Pain Scores?? No qualifying data available. ? Physical Exam General Appearance: Alert, appears stated age, answers??questions appropriately HEENT: Normocephalic, atraumatic, PERRL, EOMI, no scleral icterus, no facial droop, moist mucous membranes Neck: Supple, no JVD Cardiac: RRR, S1 & S2 present, no m / r / g appreciated Chest: Clear to auscultation bilaterally, no wheezing / ronchi / rales, no tenderness to percussion Abdomen: Soft, nontender, protuberant, no rebound or guarding, no masses Extremities: No clubbing, cyanosis, or edema. ??2+ distal pulses. ??Capillary refill < 3 seconds. ??No calf tenderness or cords Skin: Warm, dry Neuro: ??A & O x 3, no focal motor or sensory deficits Psych: ??Stable mood, appropriate affect Assessment/Plan Assessment:??76-year-old female with history of insulin-dependent diabetes mellitus, hypertension, hyperlipidemia, asthma, GERD, and depression who presented to [facility] on 06/26/2022 with complaints of chest pain.??Work-up was consistent with NSTEMI, and the patient was transferred here to [facility] for cardiac catheterization. ?? NSTEMI (non-ST elevated myocardial infarction) (I21.4):??The patient remains chest pain-free. She is afebrile and hemodynamically stable.??She has been??transferred here for cardiac catheterization??today. 1.??Admit to the medical floor, continuous EKG monitoring 2.??Continue heparin drip anticoagulation protocol, monitor PTT and daily CBC 3.??Continue aspirin 81 mg daily 4.??Continue atorvastatin 80 mg nightly 5.??Beta-myra currently contraindicated with bradycardia (heart rate stable in 60s) 6.??Patient remains n.p.o. for cardiac catheterization later today 7.??Nitroglycerin sublingual as needed for recurrent chest pain 8.??Cardiac rehabilitation??referral at discharge ? Hypertension (I10) Hyperlipidemia (E78.5):??Blood pressure controlled at this time. Renal function has been stable at [facility]. Continue amlodipine, chlorthalidone,??clonidine patch, and spironolactone as prescribed. Monitor metabolic panel after catheterization. Continue high-dose atorvastatin, which has replaced her previous pravastatin. LDL noted to be??146 at [facility]. ?? Insulin dependent type 2 diabetes mellitus (E11.9):??POC??blood sugar 108??currently. Patient currently n.p.o. for cardiac catheterization today. We??will restart her Lantus insulin??at half dose this evening if she is able to start taking oral intake (14 units). Monitor POC's with insulin lispro sliding scale coverage. Hemoglobin A1c noted to be??8.2 at [facility]. ?? Asthma (J45.909):??No current bronchospasm or hypoxia. Albuterol MDI is ordered as needed. ?? GERD (gastroesophageal reflux disease) (K21.9):??Continue PPI as prescribed. ?? Depression (F32.A):??Mood is stable. Continue sertraline as prescribed. ?? VTE Prophylaxis:??On heparin drip. ?VTE Prophylaxis Assessment:??Excluded from VTE prophylaxis measure ?? Code Status:??FULL. ?Order Code Status:??Code Status Ordered ?? Discharge Planning:??Anticipate home with family;??2 to 3 days hospitalization. ?? I spent a total of??78 minutes today reviewing the chart / medical records, evaluating the patient,evaluating and interpreting laboratory and imaging data, formulating and discussing the treatment plan, and documenting the encounter. ? Histories Allergies Allergies ?(Active and Proposed Allergies Only) No Known Medication Allergies? (Severity: Unknown severity, Onset: Unknown) ? Past Medical History/Problem List Active Problems??(7) Asthma Depression GERD (gastroesophageal reflux disease) Hyperlipidemia Hypertension Insulin dependent type 2 diabetes mellitus Obese class I ? Past Surgical History Hysterectomy. ? Social History The patient??lives alone, but is currently staying with her son??when she was not feeling well.?? She ambulates with a walker. HCP:??Her son, Karl, . Tobacco: Never.?? Exposure to secondhand smoke from her?? in past. EtOH:??Rare. Drugs: Denies. ? Family History Father: Heart disease. Mother: Diabetes mellitus. ? Medications Home Medications Albuterol (Albuterol (Eqv-Proventil HFA) 90 mcg/inh inhalation aerosol)?2?puff(s)?Inhalation?Every 6 hours Amlodipine (amLODIPine 10 mg oral tablet)?1?tab(s)?10?Milligram?By Mouth?Daily Aspirin (aspirin 81 mg oral delayed release [...] 100 units/mL subcutaneous solution)?28?unit(s)?Subcutaneous Injection?Daily at bedtime Latanoprost Ophthalmic (latanoprost 0.005% ophthalmic solution)?1?Drops?Eyes, Both?Daily at bedtime Lidocaine Topical (lidocaine 5% topical film)?1?patch(es)?Topically?Daily?as needed?Pain , Mild?remove after 12 hours Omeprazole (omeprazole 20 mg oral delayed release tablet)?1?tab(s)?20?Milligram?By Mouth?Daily Sertraline (sertraline 50 mg oral tablet)?1?tab(s)?50?Milligram?By Mouth?Daily Spironolactone (spironolactone 25 mg oral tablet)?25?Milligram?1?tablet?By Mouth?Daily ? * Radha MALDONADO, Arcenio Tolbert: PERFORM Event Display: History and Physical Hospital Authored Date: Received Cortext from Dr. Avery regarding patient's cardiac cath results: ?? Severe three-vessel coronary artery disease involving mid LAD, OM 2 and RCA. Patient has good target in the mid to distal LAD, D1, OM 2, RPDA/RPL. ?? Consult cardiothoracic surgery for evaluation of CABG for her.?? If she is deemed not a surgical candidate or patient refuses to go for CABG, we will consider PCI of the mid LAD and RCA.?? ( Please consult Cardiothoracic surgery when office opens in am ) ?Interventional Recommendations ??Continue aspirin 81 mg p.o. indefinitely. ??Maximize medical therapy. ??Echocardiogram. ??Cardiothoracic surgery evaluation for CABG. ??If patient is deemed high risk for cardiothoracic surgery or patient refuses, may consider PCI ofthe mid LAD and RCA for now. ?? No complications at the time of the procedure.?? Case was discussed with both patient's son and daughter.?? Daughter Stefany would like to be involved at the time that the surgeons are evaluating the patient.?? The telephone number is [phone]. Heart * Event Display: Echocardiogram - Complete Authored Date: Transthoracic Echocardiography Report (TTE) Patient Demographics Patient Name NATALI CORTES Date of Study 06/29/2022 Corporate Gender Female Facility Race Unknown Ethnicity Date of 1945 Height: 59.06 inches Age 76 year(s) Weight: 149.92 pounds Accession Number [id number] BSA: 1.63 m2 Room Number M710 BMI: 30.22 kg/m2 Referring Physician Ronald Peck MD Interpreting Kelly Murray Physician Adan CHRISTIANSON Ccu Nurse Maddie Lovett Indications NSTEMI. Clinical History Hypertension. Diabetes Mellitus. Hyperlipidemia. Obesity. Study Data Type of Study TTE procedure:Echo Complete-(Doppler, Colorflow) with Contrast. Procedure Information:Definity was administered by property handler. Study Date06/29/2022 Start Time: 11:33 AM Study Location: [facility] [place] Echo Study Status: Bedside Patient Status: Routine Technical Quality: Technically difficult due to poor acoustical window. Blood Pressure:126/70 mmHg EKG: Normal sinus rhythm HR: 62 bpm Contrast Medium: Definity. Amount - 2 ml 2D Measurements LV Diastolic Dimension: 4.6 cm LV Systolic Dimension: 3.4 cm LV Septum Diastolic: 0.7 cm LV PW Diastolic: 0.8 cm AO Root Dimension: 2.3 cm LA ESV (BP):32.17 ml LVOT Stroke Volume: 70.28 ml LA ESV Index: 20 ml/m2 Stroke Volume Index43.12 ml/m2 LVOT: 2.1 cm Cardiac Index:2.67 l/min/m2 Ascending Aorta:2.9 cm Doppler Measurements AV Peak Velocity: 178 cm/s MV Peak E-Wave: 89.6 cm/s AV Peak Gradient: 12.67 mmHg MV Peak A-Wave: 121 cm/s MV E/A Ratio: 0.74 LVOT Peak Velocity: 95.4 cm/s LVOT VTI20.3 cm MV Deceleration Time: 218 msec E' Septal Velocity: 7.94 cm/s PV Peak Velocity: 106 cm/s E' Lateral Velocity: 9.46 cm/s PV Peak Gradient: 4.49 mmHg E/Med E':11.62676 E/Lat E':9.079080 Cardiac Anatomy Left Ventricle/Interventricular Septum The left ventricular size is normal. Left ventricular wall thickness is normal. The left ventricular ejection fraction is 40-45 %. The inferior, basal inferoseptal wall is hypokinetic. Grade I, mild diastolic dysfunction with impaired LV relaxation. Left Atrium/Interatrial Septum The left atrium is normal in size. Aortic Valve The aortic valve is trileaflet and normal in structure and function. There is no aortic stenosis or insufficiency. Mitral Valve The mitral valve appears mildly thickened. There is mild to moderate mitral regurgitation. Aorta The aortic root is normal in size. Right Ventricle The right ventricular size and function appears grossly normal. Right Atrium The right atrium is normal in size. Pulmonic Valve The pulmonic valve is poorly visualized. Tricuspid Valve The tricuspid valve is grossly normal. There is trace tricuspid valve regurgitation. Pumonary Artery An accurate pulmonary artery pressure could not be obtained. Venous Structures The inferior vena cava appears normal. Pericardium/Extracardiac There is no significant pericardial effusion. Summary The left ventricular size is normal. Left ventricular wall thickness is normal. The left ventricular ejection fraction is 40-45 %. The inferior, basal inferoseptal wall is hypokinetic. Grade I, mild diastolic dysfunction with impaired LV relaxation. The aortic valve is trileaflet and normal in structure and function. There is no aortic stenosis or insufficiency. The right ventricular size and function appears grossly normal. There is no significant pericardial effusion. The mitral valve appears mildly thickened. There is mild to moderate mitral regurgitation. Comparison No prior study available for comparison. Signature * Event Display: Echocardiogram - Complete Authored Date: [id number] .doppler Carotid arteries - bilateral * Event Display: VL Carotid Duplex Scan Bilat Authored Date: [id number] Demographics Procedure Information Patient name: GEOFFREY SUTTON Procedure date: 06/29/2022 3:29 PM Corporate Proc. sub type: Cerebral: Carotid, Carotid Duplex Scan Bilateral. Gender: Female Accession No: [id number] Date of : 1945 Account No: [id number] Age: 76 year(s) Patient status: Routine Admit Status: Inpatient Procedure Staff Probe: L12-3 Ordering physician: Ronald Peck MD Technical quality: Adequate visualization Referring Physician: Ronald Peck MD Facility: [facility] Attending Physician: Janene Cole Study location: [facility] Admitting Physician: Janene Cole Ccu Nurse: Regi Wong RDWV Procedure consent obtained: No Interpreting physician: Andry Casas MD Indications Pre-op evaluation. Carotid Procedure Findings Right Left Location PSV (cm/s) EDV (cm/s) Plaque Characteristics PSV (cm/s) EDV (cm/s) Plaque Characteristics Prox CCA 91.1 10.9 91.1 13.8 Dist CCA 79.5 11.6 74.1 13.8 Bulb 166 16.8 Calcified 151 27.5 Calcified Prox ICA 130 12.1 132 20.1 Mid ICA 101 19.2 112 20.1 Dist ICA 110 25.2 86.9 27.5 Prox ECA 134 0 155 10.6 Vertebral 54 13.7 59.8 12.3 Prox Subclavian 163 0 207 0 Right ICA/CCA ratio: 1.64 Right verterbral flow: Antegrade Left ICA/CCA ratio: 1.78 Left verterbralflow: Antegr Carotid Plaque Details Left ICA/CCA ratio: 1.78 Left verterbral flow: Antegrade Right ICA/CCA ratio: 1.64 Right verterbral flow: Antegrade Physician Conclusions Summary: Right Side: 1-49% stenosis in the Internal Carotid Artery. Antegrade flow in the Vertebral Artery. Multiphasic flow is seen in the Subclavian Artery. Left Side: 1-49% stenosis in the Internal Carotid Artery. Antegrade flow in the Vertebral Artery. Multiphasic flow is seen in the Subclavian Artery. * Event Display: VL Carotid Duplex Scan Bilat Authored Date: [id number] * Event Display: VL Carotid Duplex Scan Bilat Authored Date: [id number] Status:Open Carotid Duplex Study Demographics Procedure Information Patient name: GEOFFREY SUTTON Procedure date: 06/28/2022 1:34 PM Corporate Proc. sub type: Cerebral: Carotid, Carotid Duplex Scan Bilateral. Gender: Female Accession No: [id number] Date of : 1945 Account No: [id number] Age: 76 year(s) Admit Status: Inpatient Facility: [facility] Procedure Staff Study location: [facility] Ordering physician: Leon CHRISTIANSON Referring Physician: Leon CHRISTIANSON Procedure consent obtained: No Attending Physician: Janene Cole Admitting Physician: Janene Cole Ccu Nurse: Darrian Trivedi Nadeem [facility] Interpreting physician: Mandeep Calvillo MD Indications Carotid Stenosis. Carotid Diagram Right Left 1-49% 1-49% The diagram is not intended for diagnosis. It is provided for reference only. Carotid Procedure Findings Right Left Location PSV (cm/s) EDV (cm/s) Plaque Characteristics PSV (cm/s) EDV (cm/s) Plaque Characteristics Prox CCA 106.1 16.7 96.6 18.1 Dist CCA 88 14.1 69.4 14.9 Bulb 105.7 7.1 Heterogeneous 158.8 10.7 Heterogeneous Prox ICA 129.7 14.2 Heterogeneous 109.3 21.7 Heterogeneous Mid ICA 91.8 21.5 85.6 28.1 Dist ICA 79.2 26.9 98 24.1 Prox ECA 112.6 10.7 Heterogeneous 116.6 12.6 Heterogeneous Vertebral 45.1 15.9 59.3 13.2 Prox Subclavian 118 0 194.6 6.7 Right ICA/CCA ratio: 1.47 Right verterbral flow: Antegrade Left ICA/CCA ratio: 1.57 Left verterbralflow: Antegr Study Comments REFERENCE Normal: Internal Carotid Artery (ICA) velocity is less than 180 cm/second with no visible plaque. ICA velocity less than 180 cm/second with some visible plaque indicates 1-49% stenosis. ICA velocity between 180-230 cm/second with visible plaque indicates 50-69% stenosis. ICA velocity greater than 230 cm/second with visible plaque indicates 70-99% stenosis. Total Occlusion is indicated by no detectable flow. Physician Conclusions Summary: Right side: 1-49% stenosis of the Internal Carotid Artery. Antegrade Vertebral artery flow. Multiphasic Subclavian artery flow. Left side: 1-49% stenosis of the Bulb / Internal Carotid Artery. Antegrade Vertebral artery flow. Multiphasic Subclavian artery flow. * Event Display: VL Carotid Duplex Scan Bilat Authored Date: [id number] Cardiology * Event Display: VL Venous Duplex Mapping Lower Ext Bilat Authored Date: [id number] Demographics Procedure Information Patient name: GEOFFREY SUTTON Procedure date: 06/29/2022 3:41 PM Corporate Proc. sub type: Veins: Lower Extremity Vein Mapping, Venous Duplex Map Lower Extremity Gender: Female Bilateral. Date of : 1945 Accession No: [id number] Age: 76 year(s) Account No: [id number] Patient status: Routine Procedure Staff Admit Status: Inpatient Ordering physician: Ronald Peck MD Probe: L12-3 Referring Physician: Ronald Peck MD Technical quality: Adequate visualization Attending Physician: Janene Cole Facility: [facility] Admitting Physician: Janene Cole Study location: [facility] Ccu Nurse: Regi Wong RDMS Procedure consent obtained: Interpreting physician: Andry Casas MD No Indications Pre-venous access. Deep Veins: Right Left Location Compression Signal Compression Signal Common Femoral Yes Yes LE Vein Mapping Findings Great Saphenous : Right Left AP AP Diam DIam Location (mm) Branches Quality (mm) Branches Quality Sapheno Femoral Junction 4 4.3 GSV High Thigh 3 3 Yes GSV Mid Thigh 1.7 2.9 Yes GSV Low Thigh 2 2 GSV Knee 1.6 1.8 GSV High Calf 1.4 1.4 Yes GSV Mid Calf 1.7 Yes 1.6 GSV Low Calf 1.6 1.5 GSV Ankle 1.7 1.6 Small Saphenous: Right Left AP AP Diam DIam Location (mm) Branches Quality (mm) Branches Quality SSV High Calf 1.8 1.7 SSV Mid Calf 1.4 1.2 SSV Low Calf 0.9 1.4 SSV Ankle 0.9 1.1 Physician Conclusions Summary: Right side: The Great Saphenous Vein and Small Saphenous Vein appear patent with measurements as noted above. Left side: The Great Saphenous Vein and Small Saphenous Vein appear patent with measurements as noted above. * Event Display: VL Venous Duplex Mapping Lower Ext Bilat Authored Date: [id number] * Event Display: Cardiac Rhythm Strips Authored Date: * Event Display: VL Venous Duplex Mapping Lower Ext Bilat Authored Date: [id number] Status:Open Vascular Lower Extremities Vein Mapping Study Demographics Procedure Information Patient name: GEOFFREY SUTTON Procedure date: 06/28/2022 2:10 PM Corporate Proc. sub type: Veins: Lower Extremity Vein Mapping, Venous Duplex Map Lower Extremity Gender: Female Bilateral. Date of : 1945 Accession No: [id number] Age: 76 year(s) Account No: [id number] Admit Status: Inpatient Procedure Staff Facility: [facility] Ordering physician: Leon CHRISTIANSON Study location: [facility] Referring Physician: Leon CHRISTIANSON Procedure consent obtained: Attending Physician: Janene Cole No Admitting Physician: Janene Cole Ccu Nurse: Darrian Trivedi RVT [facility] Interpreting physician: Mandeep Calvillo MD Indications Pre-op for vein harvesting. LE Veins Diagram Right Left The diagram is not intended for diagnosis. It is provided for reference only. Deep Veins: Right Left Location Compression Signal Compression Signal Common Femoral Yes Yes LE Vein Mapping Findings Great Saphenous : Right Left AP AP Diam DIam Location (mm) Branches Quality (mm) Branches Quality Sapheno Femoral Junction 5.6 4.6 GSV High Thigh 4.8 3.6 GSV Mid Thigh 2.5 3 GSV Low Thigh 2.5 2.8 GSV Knee 1.9 2 GSV High Calf 2.1 GSV Mid Calf 1.8 GSV Low Calf 1.9 GSV Ankle 1.7 Small Saphenous: Right Left AP AP Diam DIam Location (mm) Branches Quality (mm) Branches Quality SSV High Calf 3.1 2.4 SSV Mid Calf 2.1 1.4 SSV Low Calf 1.7 1.4 SSV Ankle 1.3 1.4 Physician Conclusions Summary: Right side: The right Great Saphenous Vein is patent with measurements as noted above. There is no evidence of deep vein thrombosis in the segments insonated. The right Small Saphenous Vein is patent with measurements as noted above. Thick walled right small saphenous vein. Left side: The left Great Saphenous Vein is patent with measurements as noted above. The great saphenous vein leaves the fascia at proximal calf. There is no evidence of deep vein thrombosis in the segments insonated. The left Small Saphenous Vein is patent with measurements as noted above. * Event Display: VL Venous Duplex Mapping Lower Ext Bilat Authored Date: Hospital Progress note * Nick GARCIA, Katerina Cohen: PERFORM Event Display: Progress Note Hospital Authored Date: Patient: ??NATALI CORTES ? Age:??76 Years?Sex:??Female?:??1945?? Indication for Consult Transfer from [facility] for NSTEMI. History of Present Illness/Interval History Patient denies any chest comfort. ??She does report slight discomfort??at her right femoral cardiaccath site. ? Telemetry shows sinus rhythm in the 70s Review of Systems Constitutional: no fatigue, fever, chills, sweats Cardiac: as above Respiratory: no wheezing or coughing Neuro: no changes in memory, vision or hearing, no seizures GI: no Nausea/vomiting/diarrhea : no dysuria or hematuria Musculoskeletal: no joint pain or muscle pain that is new Hematologic: no hematuria, melena, epistaxis or easy bruising Integument: no rashes or skin changes?? Physical Exam Vitals & Measurements T:??97.5?F ?? HR:??52(Monitored)?? MT:??78?? RR:??18?? BP:??130/50?? SpO2:??100%?? WT:??67.8??kg?? Weight lb/oz: 149 lb 8 oz General appearance: WDWN, no acute distress, resting comfortably?? HEENT: NCAT,??negative JVD, carotid pulses are +2 bilaterally without carotid bruit Respiratory: easy respiratory effort, lungs are clear Cardiac: S1S2, heart rate regular, no murmurs/heaves/rubs/gallops. Abdomen round, soft, non-tender, +bowel sounds x4 quadrants, no HSM appreciated?? Extremities:?? no edema, skin is warm Pulses: radial and pedal bilaterally +2. Right femoral cardiac cath site well healed, slight ecchymosis present. leg neurovascularly intact ?? Neurologic: alert and oriented x3, grossly normal Mood and Affect: calm Integument no rashes , dry and intact, warm Assessment/Plan 1.??NSTEMI (non-ST elevated myocardial infarction) 2.??Hypertension 3.??Hyperlipidemia 4.??Insulin dependent type 2 diabetes mellitus 5.??Asthma 6.??GERD (gastroesophageal reflux disease) 7.??Depression ? Patient is a very pleasant 76-year-old??Grenadian-speaking female with a history of insulin-dependent diabetes, hypertension, dyslipidemia, asthma, GERD and depression who presented to [facility] on June 26 with complaints of chest pain her work-up was consistent with a non-STEMI patient was transferred to [facility] for cardiac catheterization she was found to have three-vessel disease. ??She was seen by cardiothoracic surgery,??patient was seen by [facility] cardiology for a 2nd opionion then seen by intervention cardiology as well??and recommended to undergo a CABG though patient opted for complex staged PCIs after thoughtful discussion with her family. ??Her beta-myra was held due to intermittent bradycardia. ??She underwent PCI to heavily calcified mid RCA and distal RCA with plan for staged PCI of LAD and OM 2 in 3 to 4 weeks as an outpatient. ??Dr. Avery will arrange this. ??In the meantime we will have patient seen by her primary creative coordinator for close follow-up. ??We will plan to continue 81 mg aspirin indefinitely and Brilinta 90 mg twice a day for 1 year as well as statin therapy. ?? Patient was seen and examined with Dr. Watts ?? Patient is followed by Dr. Us for outpatient cardiology.?Thank you for allowing us to participate in this patient's care. ??We will continue to follow him as an inpatient and outpatient. ??Please feel free to call with any questions or concerns. ? Problem List/Past Medical History Ongoing Acid reflux Asthma Asthma - PFTs 200 at [place], mild obst defect - sees pulm Depression Diabetes - sees endocrinology Diastolic dysfunction - echo in prior records 08/01/2016 EF 50-55%, grade 2 diastolic dysfunction, mild hypokinesis GERD (gastroesophageal reflux disease) Hyperlipidemia Hyperlipidemia Hyperlipidemia LDL goal < 100 Hypertension Hypertension Insulin dependent type 2 diabetes mellitus Obese class I ROXIE (obstructive sleep apnea) - sleep study [facility] 12/28/2008 - in old records Historical No qualifying data Procedure/Surgical History Hysterectomy [facility] Medications Medications (34) Active SCHEDULED: (19) Aspirin 81 mg EC Tablet (Aspirin Tablet) ??81 mg, By Mouth, Daily Atorvastatin 80 mg Tablet (atorvastatin 80 mg oral tablet) ??80 mg, By Mouth, Daily at bedtime Chlorthalidone 25 mg Tablet (chlorthalidone 25 mg oral tablet) ??25 mg, By Mouth, Daily Clonidine 0.2 mg/24 hour Patch (Catapres Patch) ??0.2 mg, Topically, Every 7 days Enoxaparin 40 mg Inj (Enoxaparin Inj) ??40 mg 0.4 mL, Subcutaneous Injection, Daily Fluticasone Propionate 50mcg/inh Nasal [place] (fluticasone 50 mcg/inh nasal spray) ??50 mcg 1 sprays, Nares, Both, 2 times a day Insulin Glargine 100 units/mL Inj (Insulin Glargine Inj) ??25 units 0.25 mL, Subcutaneous Injection, Daily at bedtime Insulin Lispro 100 units/mL Inj (3mL) (Insulin LISPRO Scale) ??2-8 units, Subcutaneous Injection, 3times a day before meals Isosorbide Mononitrate 30 mg ER Tablet (Imdur 30 mg oral tablet, extended release) ??30 mg, By Mouth, Daily Latanoprost 0.005% Ophthalmic Solution (latanoprost 0.005% ophthalmic solution) ??1 drops, Eyes, Both, Daily at bedtime Lidocaine 5% Topical Patch (Lidocaine 5% Patch) ??1 each, Topically, Daily Lisinopril 5 mg Tablet (lisinopril 5 mg oral tablet) ??5 mg, By Mouth, Daily NaCl 0.9% Flush 3ml (NaCL 0.9% Flush) ??3 mL, IV Push, Every 8 hours Pantoprazole 20 mg EC Tablet (pantoprazole 20 mg oral delayed release tablet) ??20 mg, By Mouth, Daily Remove Patch (Remove ??Patch) ??1 each, Topically, Every 7 days Remove Patch (Remove Lidocaine Patch) ??1 each, Topically, Daily at bedtime Sertraline 50 mg Tablet (sertraline 50 mg oral tablet) ??50 mg, By Mouth, Daily Spironolactone 25 mg Tablet (spironolactone 25 mg oral tablet) ??25 mg, By Mouth, Daily Ticagrelor 90 mg Tablet (Ticagrelor Tablet) ??90 mg 1 tablet, By Mouth, 2 times a day CONTINUOUS: (2) NaCL 0.9% (1000 mL) Cont IV 1,000 mL (Sodium Chloride 0.9% 1,000 mL) ??1,000 mL, IV Infusion, 75 mL/hr NaCL 0.9% (1000 mL) Cont IV 1,000 mL (NaCL 0.9% 1,000 mL) ??1,000 mL, IV Infusion, 250 mL/hr PRN: (13) Acetaminophen 325 mg Tablet (Acetaminophen Tablet) ??650 mg, By Mouth, Every 4 hours Albuterol 90mcg/Inhalation Inhaler HFA (Ventolin 90 mcg Inhaler) ??180 mcg 2 puffs, Inhalation, Every 4 hours Dextromethorphan-Guaifenesin 20 mg-200 mg/10 mL Liqu UD (GuaiFENEsin /Dextromethorphan Liquid) ??10mL, By Mouth, 3 times a day Dextrose Inj Syringe (Dextrose 50% Inj Syringe (25Gm)) ??12.5 Gm, IV Push Slowly, Every 20 minutes Dextrose Inj Syringe (Dextrose 50% Inj Syringe (25Gm)) ??25 Gm, IV Push Slowly, Every 15 minutes Glucagon 1 mg Inj (Glucagon Inj) ??1 mg, Intramuscular, Once Glucose 40% Gel (15 Gm) (Glucose Gel) ??15 Gm, By Mouth, Every 20 minutes Glucose 40% Gel (15 Gm) (Glucose Gel) ??30 Gm, By Mouth, Every 20 minutes Melatonin 3 mg Tablet (Melatonin Tablet) ??3 mg, By Mouth, Daily at bedtime NaCl 0.9% Flush 3ml (NaCL 0.9% Flush) ??3 mL, IV Push, Every 8 hours Nitroglycerin 0.4 mg Sublingual Tablet (nitroglycerin 0.4 mg sublingual tablet) ??0.4 mg, Sublingual, Every 5 minutes Senna 8.6 mg / Docusate 50 mg tablet (Docusate/Senna Tablet) ??1 tablet, By Mouth, 2 times a day Simethicone 80 mg Chewable Tablet (Simethicone Tablet) ??80 mg, Chew, 3 times a day Patient Education Titles Metoprolol Extended Release Oral Tablet?? Ticagrelor Oral Tablet?? Nitroglycerin Sublingual Tablet?? Lisinopril Oral Tablet?? Isosorbide Extended Release Oral Tablet?? Discharge Instructions for Heart Attack?? Eating Heart-Healthy Foods?? Symptoms of a Heart Attack?? 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 The barrios diagnostic tests and??treatments during your hospital stay were : -?EKG, cardiac enzymes, cardiac monitoring, cardiac catheterization ?? You will go home with the following NEW medications: Isosorbide Mononitrate (isosorbide mononitrate 30 mg oral tablet, extended release)?1?tab(s)?30?Milligram?By Mouth?Daily Lisinopril (lisinopril 5 mg oral tablet)?5?Milligram?1?tablet?By Mouth?Daily Metoprolol (metoprolol 25 mg oral tablet, extended release)?25?Milligram?1?tablet?ByMouth?Daily Nitroglycerin (nitroglycerin 0.4 mg sublingual tablet)?1?tab(s)?0.4?Milligram?Sublingual?Every 5 minutes?as needed?Chest Pain Ticagrelor (ticagrelor 90 mg oral tablet)?1?tab(s)?90?Milligram?By Mouth?2 times a day ?? The following medications were CHANGED or STOPPED: -?Amlodipine was STOPPED ?? Activity changes: -?Restrictions in [...] concerns that you think require emergency management?? Lab Results Cardiology Labs WBC: 9.6 k/mm3 (07/04/22) RBC:??3.98 m/mm3??Low (07/04/22) Hgb: 12 Gm/dL (07/04/22) Hct: 35.8 % (07/04/22) MCV: 89.9 femtoliters (07/04/22) MCH: 30.2 pg (07/04/22) MCHC: 33.5 g/dL (07/04/22) Platelet Count: 187 k/mm3 (07/04/22) RDW-SD: 42 femtoliters (07/04/22) Nucleated RBC (Automated): 0 #/100 WBC'S (07/04/22) APTT: 29.7 seconds (06/27/22) Sodium: 138 mmol/L (07/04/22) Potassium: 3.9 mmol/L (07/04/22) Chloride: 101 mmol/L (07/04/22) Bicarbonate Level: 27 mmol/L (07/04/22) Glucose Level:??114 mg/dL??High (07/04/22) BUN: 21 mg/dL (07/04/22) Creatinine-Blood: 0.8 mg/dL (07/04/22) Calcium: 9.3 mg/dL (07/04/22) Diagnostic Impression ECG ECG 12-Lead * Preliminary * ?? 09:54:52 Ventricular Rate: 64 BPM Atrial Rate: 64 BPM P-R Interval: 168 ms QRS Duration: 92 ms Q-T Interval: 386 ms QTC Calculation(Bazett): 398 ms P Douglas: 54 degrees R Douglas: -50 degrees T Douglas: 82 degrees Normal sinus rhythm with sinus arrhythmia Left axis deviation Moderate voltage criteria for LVH, may be normal variant ( R in aVL , [place] product ) Inferior infarct , age undetermined Abnormal ECG When compared with ECG of 03-JUL-2022 11:43, MANUAL COMPARISON REQUIRED, DATA IS UNCONFIRMED ?? Watson: , ?? ECG 12-Lead * Preliminary * ?? 09:54:52 Please click on pdf link to open report Echo Echocardiogram - Complete ?? 11:33:03 Summary The left ventricular size is normal. Left ventricular wall thickness is normal. The left ventricular ejection fraction is 40-45 %. The inferior, basal inferoseptal wall is hypokinetic. Grade I, mild diastolic dysfunction with impaired LV relaxation. The aortic valve is trileaflet and normal in structure and function. There is no aortic stenosis or insufficiency. The right ventricular size and function appears grossly normal. There is no significant pericardial effusion. The mitral valve appears mildly thickened. There is mild to moderate mitral regurgitation. ?? Comparison No prior study available for comparison. ?? Signature ?? Signed By: Kelly Hsieh MD VL Studies VL Carotid Duplex Scan Bilat ?? 15:29:54 Summary: Right Side: 1-49% stenosis in the Internal Carotid Artery. Antegrade flow in the Vertebral Artery. Multiphasic flow is seen in the Subclavian Artery. ?? Left Side: 1-49% stenosis in the Internal Carotid Artery. Antegrade flow in the Vertebral Artery. Multiphasic flow is seen in the Subclavian Artery. ? Signed By: Augusto MALDONADO, Andry Doherty * Violeta MALDONADO, Rigo Doherty: PERFORM Event Display: Progress Note Hospital Authored Date: [id number] Attending attestation: I have personally performed a face to face diagnostic evaluation of this patient at the date of service. I have reviewed pertinent historical, laboratory and other data. I discussed the patient's ongoing clinical issues and their management with the MOTOR BUILDER WINDER/PA and agree with the re commendations as above.?? I have personally performed the medical decision making in its entirety. ?? 76 years old female patient who was admitted due to a non-STEMI.?? She was found to have multivessel CAD on the initial left heart catheterization.?? The patient was seen by cardiothoracic surgery who recommended a CABG.?? However, the patient refused to undergo a CABG.?? Therefore, per the patient's preference, a staged PCI was planned.?? The patient underwent coronary artery stent placement to the RCA yesterday.?? The procedure was successful.?? Right groin was examined today after her procedure yesterday.?? The right groin showed evidence of a small and mild hematoma.?? However, there was no evidence of abnormal masses on the right groin.?? The right femoral pulse was normal.?? No bruitsnoted in the right groin.?? The right dorsalis pedis pulse was normal. ?? The patient is on antiplatelet therapy with aspirin and Brilinta.?? The patient states that she hasnot had any episodes of chest discomfort after her procedure yesterday.?? At this point, would recommend for the patient to continue her current therapy with aspirin, atorvastatin, isosorbide mononitrate, and Brilinta.?? Case was discussed with the financial aid administrator (Dr. Avery) we will plan for staged PCI to the LAD and OM2 in 3 to 4 weeks in the outpatient setting. ?? Rigo Mcdaniel MD, [facility], [facility] * Yessi Rueda RN: PERFORM, SIGN, VERIFY Event Display: Progress Note Hospital Authored Date: [id number] Patient: NATALI CORTES Age: 76 years Sex: Female : 1945 Associated Diagnoses: None Author: Yessi Rueda RN Findings Problem Related to Alteration in Cardiac Function (new) : Alteration in Cardiac Function/new 07/04/2022 1:00 EDT Alteration in Cardiac Status Related to Cardiac Procedure, Chest pain Goals & Outcomes, Cardiac Status Pt will resume/maintain adequate cardiac output, Pt will resume/maintain adequate hemodynamic status, Pt will resume/maintain adequate respiratory function, Pt will resume/maintain intact neuro function, Pt will maintain adequate GI/ function appropriate for pt, Pt will maintain adequate nutrition status, Pt/caregiver will state understanding of diagnosis, Pt/caregiver will state strategies to reduce risk factors, Pt will state understanding of cardiac surgery education Cardiac Interventions Implemented Assess/monitor cardiac status, Assess/monitor neuro status, Assess/monitor respiratory status, Assess for tolerance of IV infusions; verify rate & dose, Call/Report variances in ECG to provider, Document & Monitor O2 Sats; Administer O2 as ordered, Ensure adequate caloric intake, If no bowel movement in 3 days activate bowel regime, Monitor & document daily weight, Monitor anticoagulation values, Monitor ECG w/administration of antiarrhythmics (CO 13.420), Obtain 12 Lead ECG and CXR as ordered, Prep pt for treatments & procedures, Teach/encourage deep breath & cough exercises, Apply pressure at puncture site if hematoma develops, Assess baseline peripheral pulses, Assess for post procedural discomfort, Assess for post procedural hematoma at site, Assess procedure site for distal pulses, Assist with femstop application as needed, Implement post procedure orders, Monitor for Vagal reaction, Notify Provider if groin becomes unstable, Pre/post PCI guideline BH Goals/Interventions, Cardiac Yes Cardiac, Problem Start 06/27/2022 14:00 Reviewed Plan with, Cardiac Status Patient Patient Progression, Cardiac Status Patient progressing according to plan . Evaluation Alert and oriented x3. denies SOB. on RA with adequate oxygen. OOB with standby assist. S/P PCI to right groin. dressing C/D/I. no hematoma or bleeding noted. +CMS. +pulses. no event overnight. pt resting and will continue to monitor. . * Tristan DAMON, Lynsey: PERFORM, SIGN, VERIFY Event Display: Progress Note Hospital Authored Date: [id number] Patient: NATALI CORTES Age: 76 years Sex: Female : 1945 Associated Diagnoses: None Author: Tristan DAMON, Lynsey Findings Problem Related to Alteration in Cardiac Function (new) : Alteration in Cardiac Function/new 07/03/2022 9:00 EDT Alteration in Cardiac Status Related to Cardiac Procedure, Chest pain Goals & Outcomes, Cardiac Status Pt will resume/maintain adequate cardiac output, Pt will resume/maintain adequate hemodynamic status, Pt will resume/maintain adequate respiratory function, Pt will resume/maintain intact neuro function, Pt will maintain adequate GI/ function appropriate for pt, Pt will maintain adequate nutrition status, Pt/caregiver will state understanding of diagnosis, Pt/caregiver will state strategies to reduce risk factors, Pt will state understanding of cardiac surgery education Cardiac Interventions Implemented Assess/monitor cardiac status, Assess/monitor neuro status, Assess/monitor respiratory status, Assess for tolerance of IV infusions; verify rate & dose, Call/Report variances in ECG to provider, Document & Monitor O2 Sats; Administer O2 as ordered, Ensure adequate caloric intake, If no bowel movement in 3 days activate bowel regime, Monitor & document daily weight, Obtain 12 Lead ECG and CXR as ordered, Prep pt for treatments & procedures, Teach/encourage deep breath & cough exercises, Teach/encourage use of incentive spirometer, Team conversation regarding appropriate level of care, Turn & reposition Q2 hours per activity restrictions, Pre/post PCI guideline BH Goals/Interventions, Cardiac Yes Cardiac, Problem Start 06/27/2022 14:00 Reviewed Plan with, Cardiac Status Patient Patient Progression, Cardiac Status Patient progressing according to plan . Nursing Data Cardiac Data. : Cardiac Data. 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 Gastrointestinal Data. : Gastrointestinal Data. 07/03/2022 9:00 EDT Last Bowel Movement 07/01/2022 GI WNL Normal Bowel Pattern Daily . Genitourinary Data. : Genitourinary Data. 07/03/2022 9:00 EDT WNL . HEENT Data. : HEENT Assessment 07/03/2022 9:00 EDT HEENT, Adult WNL except Eye Location, Adult Both eyes Eye Symptoms, Adult Vision impairment . Integumentary Data. : Integumentary Data. 07/03/2022 12:15 EDT Procedure Site, Ooze Slow 07/03/2022 11:30 EDT Procedure Site, Dressing Clean, dry, intact Procedure Site, Type of Dressing Clear film dressing, Gauze, Other: Venious sheath in place until 230pm Procedure Site, Type Arterial/Venous Procedure Site, Location Groin, right Procedure Site, Surrounding Skin Intact Procedure Site, Ooze Other: NONE Procedure Site, Hematoma Other: NONE 07/03/2022 9:00 EDT Skin Integrity Not intact Sensory Perception No impairment Moisture Rarely moist Activity Walks frequently Mobility No limitations Nutrition Adequate Friction and Shear No apparent problem Christiano Score 22 Nursing Care Plan initiated/updated Not applicable Integumentary WNL except . IV Lines. : IV Lines. 07/03/2022 18:33 EDT Right Antecubital 20 gauge Peripheral IV Activity: Assess Peripheral IV Assess Compare Touch: A/C/T Done, no complications Peripheral IV Site Assessment: Clean, dry and intact, Flushes Well Peripheral IV Site Drainage: None Peripheral IV Dressing: Clean, dry and intact Peripheral IV Intervention: Flushed 07/03/2022 18:00 EDT Left Forearm 20 gauge Peripheral IV Activity: Assess Peripheral IV Assess Compare Touch: A/C/T Done, no complications Peripheral IV Site Assessment: Clean, dry and intact, Flushes Well Peripheral IV Site Drainage: None Peripheral IV Dressing: Clean, dry and intact Peripheral IV Intervention: Flushed 07/03/2022 16:00 EDT Right Antecubital 20 gauge Peripheral IV Activity: Assess Peripheral IV Assess Compare Touch: A/C/T Done, no complications Peripheral IV Intervention: Dressing changed, End cap changed, Flushed . Musculoskeletal Data. : Musculoskeletal Data. 07/03/2022 9:00 EDT Musculoskeletal WNL . Neurological Data. : Neurological Data. 07/03/2022 18:02 EDT Pain Intensity 6 07/03/2022 12:00 EDT Activity, Adult Sedation Moves 4 extremities voluntarily or on command Respiration, Adult Sedation Breathe deeply and cough freely Circulation, Adult Sedation BP plus/minus 20% of preanesthetic level Consciousness, Adult Sedation Fully awake O2 Saturation, Adult Sedation Able to maintain O2 Sat greater than 92% on room air Sedation Score, Adult 10 Disposition Status Transferred to inpatient unit Condition on Transport Good 07/03/2022 11:30 EDT Activity, Adult Sedation Moves 4 extremities voluntarily or on command Respiration, Adult Sedation Breathe deeply and cough freely Circulation, Adult Sedation BP plus/minus 20% of preanesthetic level Consciousness, Adult Sedation Fully awake O2 Saturation, Adult Sedation Able to maintain O2 Sat greater than 92% on room air Sedation Score, Adult 10 07/03/2022 9:00 EDT Pain Intensity 0 Neuro WNL . Respiratory/Pulmonary Data. : Respiratory/Pulmonary Data. 07/03/2022 12:45 EDT Mode of Delivery (Oxygen) Room air 07/03/2022 9:00 EDT Respiratory Treatment(s) Cough and deep breathe Respiratory WNL . Evaluation Pt A&Ox4, Sinus bradycardia on tele in 50's ,and ambulates independently in room. Pt went for PCI today and had 3 stents placed. Pt's groin site started oozing on arrival from CARE UNIT with VSS,and dressing changed with care unit nurses at bedside. Dressing started oozing again 15 minutes later and CARE Unit notified. MD Avery and MD Duval came to bedside and sheath removed. Pt was givenlidocaine for small hematoma that was excised at bedside. New dressing applied to right groin site and patient's vitals stable. Right groin site CMS +PP. Pt's head of bed raised to 30 degrees at 16:30 and patient ate dinner. Patient complained of some burning 6/10 pain in right groin site and tylenol given with moderate relief. Pt voided CYU since procedure and is resting in bed. Will continue tomonitor patient's labs, vitals, and comfort. . Deprecated Cardiac rehabilitation treatment plan Progress note and attainment of goals (narrative) * Keira Tejada RN: SIGN, VERIFY, PERFORM Event Display: Cardiac Rehab Note Authored Date: [id number] Patient: NATALI CORTES Age: 76 years Sex: Female : 1945 Associated Diagnoses: None Author: Keira Tejada RN Pre-exercise Vitals Vital Signs Comment: Reviewed in [facility]. Pre-exercise Physical Examination Neurologic: alert & oriented. Activity Symptoms with Cardiac Rehab Symptoms: No exertional symptoms. Activity Transfers: independent, assistive device. Ambulate: independent, assistive device, distance ambulated 200 feet. Assistive Devices Assistive Device: Wheeled walker. Compliance problems: Compliance problems: diet, exercise. . Patient Education Education: Family present, Cad Developer present, Written material included, Post procedure guidelines, Stent card reviewed, Heart attack handbook. Education topic Teachback comprehension 75% Topic: Medication education, Role of exercise, Home activity guidelines/limits, Infarct recovery guidelines. Recommendation and Plan Outpatient follow up recommended: [facility]. Cardiac Rehab: Will sign off at this time. Recommendation comment: RN notified of plan. * Cara Kraft: PERFORM Cara Kraft: PERFORM, SIGN Cara Kraft: SIGN, VERIFY Cara Kraft: VERIFY, MODIFY Event Display: Cardiac Rehab Note Authored Date: Patient: NATALI CORTES Age: 76 years Sex: Female : 1945 Associated Diagnoses: None Author: Cara Kraft Chart reviewed, Patient declined Cardiac Surgery at this time. Will sign off, any questions please page [phone] * Bobbi Cade: PERFORM Event Display: Cardiac Rehab Note Authored Date: Patient is s/p NSTEMI, declined cabg, plan for cardiac cath today zaida follow up post procedure. * Keira Tejada RN: PERFORM, SIGN, VERIFY Event Display: Cardiac Rehab Note Authored Date: Patient: NATALI CORTES Age: 76 years Sex: Female : 1945 Associated Diagnoses: None Author: Keira Tejada RN Recommendation and Plan Cardiac Rehab: Chart reviewed. Plan for CV surgery eval. Will follow and see patient when appropriate for services.. Patient Care team information Care Team Personnel Name: Yesenia Bailon NP Position: [facility] Associate Professional Member Role: Primary Care Nurse Address: Address: [address] [place] [address]- [place] Name: Bobbi Garcia Position: [facility] RN Member Role: Primary Care Nurse Name: Brandy Trejo RN Position: [facility] RN Member Role: Primary Care Nurse Name: Ileana Angel NP Position: [facility] PCO Associate Professional Member Role: Primary Care Nurse Address: Address: [address] [place] [address]- [place] Name: Ileana Mccormack RN Position: [facility] RN Member Role: Primary Care Nurse Name: Liset Mitchell MD Position: Reference Physician Member Role: PCP Address: Address: [address] [place] [address]- [place] Name: Geraldine Fenton RN Position: [facility]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 Member Role: Primary Care Nurse Care Team Related Persons Name: KARL HICKMAN Address: home [address] [place] [id number] Continuity of Care Document Created on: July 04, 2022 NATALI CORTES : 1945 Sex: Female Author Organization [facility] ter Address [address] [place] [address]- Care Team Providers 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 Start Date: 06/27/22 Status: Ordered amLODIPine 5 mg oral tablet 5 mg, Tablet, By Mouth, 07/04/22 9:00:00 EDT Start Date: 07/04/22 Stop Date: 07/04/22 Status: Completed aspirin 81 mg oral delayed release tablet [...] Gm, 0 Refills, Maintenance, 06/27/22 17:49:00 EDT, [place], Partial fill upon patient request if the prescription is for a schedule II opioid drug. Start Date: 06/27/22 Status: Ordered FreeStyle Aristides reader FreeStyle Aristides reader, See Instructions, # 1 each, Refills 0, Tot. Refills 0, Maintenance, Use to read Aristides Sensor 5x daily, can also use to test BG 2x daily, DxE10.9 [facility]# [id number], 08/19/18 14:17:22 EDT, Compound Start Date: 08/19/18 [...] Refills, Maintenance, 07/04/22 9:38:00 EDT, ER Tablet, [facility], Partial fill upon patient request [...] 07/04/22 9:38:00 EDT, Route to Pharmacy Electronically, [facility], Partial fill upon patient request if the prescription is for a schedule II opioid... Start Date: 07/04/22 Status: Ordered metoprolol 25 mg oral tablet, extended release 25 mg, 1, tablet, By Mouth, Daily, # 30 tablet, Refills 0, Tot. Refills 0, Maintenance, 07/04/22 10:10:00 EDT, Route to Pharmacy Electronically, [facility], Partial fill upon patient [...] 0 Refills, Maintenance, 07/04/22 9:40:00 EDT, Tablet, [facility], Partial fill upon patient [...] drug. Start Date: 06/27/22 Status: Ordered Pen [place], 32 G x 4 mm BD Ultra [...] 11 Refills, Maintenance, 07/04/22 9:39:00 EDT, Tablet, [facility], Partial fill upon patient request if the prescription is for aschedule II opioid drug., 150, cm, 06/27/22 13:32:0... Start Date: 07/04/22 Status: Ordered Problem List Condition Confirmation Course Effective Dates Status H ealth Status Informant Asthma - PFTs 200 at [place], mild obst defect - sees pulm Confirmed [...] study Ernie 12/28/2008 - in old records Confirmed Active Vital Signs Most recent to oldest [Reference Range]: 1 2 3 Weight 67.8 kg (07/04/22 5:59 AM) 67.9 kg (07/03/22 7:18 AM) 67.9 kg (07/03/22 5:54 AM) Oxygen Saturation [94-100 %] 100 % (07/04/22 7:41 AM) 100 % (07/04/22 3:18 AM) 100 % (07/03/22 8:07 PM) Pulse Rate [55-90 bpm] 78 bpm (07/04/22 7:41 AM) 65 bpm (07/04/22 3:18 AM) 64 bpm (07/03/22 8:07 PM) Blood Pressure [90-138/55-84 mm Hg] 130/50mm Hg (07/04/22 8:22 AM) 130/50mm Hg (07/04/22 7:41 AM) 96/51mm Hg (07/04/22 3:18 AM) Respiratory Rate [16-30 br/min] 18 br/min (07/04/22 7:41 AM) 20 br/min (07/04/22 3:18 AM) 20 br/min (07/03/22 8:07 PM) Temperature [96.8-100.4 DegF] 97.5 DegF (07/04/22 7:41 AM) 97.6 DegF (07/04/22 3:18 AM) 98.1 DegF (07/03/22 8:07 PM) Liters per Minute 0 L/min (07/03/22 12:45 PM) 0 L/min (06/27/22 1:00 PM) Mode of Delivery (Oxygen) Room air (07/04/22 7:41 AM) Room air (07/04/22 3:18 AM) Room air (07/03/22 8:07 PM) Blood pressure sites Arm, left (07/04/22 7:41 AM) Arm, left (07/04/22 3:18 AM) Arm, left (07/03/22 8:07 PM) Temperature Route Temporal (07/04/22 7:41 AM) Temporal (07/04/22 3:18 AM) Temporal (07/03/22 8:07 PM) Weight Obtained Via Bed scale (07/04/22 5:59 AM) Bed scale (07/03/22 5:54 AM) Bed scale (07/02/22 7:09 AM) Social History Social History Type Response Smoking Status Never smoker entered on: 07/05/16 Sex Note * Event Display: Hemodynamic Procedure Report Authored Date: [id number] * Lynsey Hudson RN: PERFORM Event Display: Discharge/Transfer Note Hospital Authored Date: [id number] Nursing Discharge Note Entered On: 07/04/2022 14:14 EDT Performed On: 07/04/2022 14:14 EDT by Lynsey Hudson RN Nursing Discharge Note 2 Discharge Time : 07/04/2022 14:00 EDT Discharge Level of Care at Discharge : Home/Intermediate/Foster Care Discharge VNA/Hospice/Home Care(v001) : [facility] provides VICE [employer]IDENT [employer] services Patient Left Unit Via : Wheelchair Patient Accompanied Off Unit with : Responsible adult DC Instructions Provided & Signed by Pt : Yes Patient Understands D/C Instructions : Yes Patient Instructions Discharge Signed : Yes Did Pt have Specialty Bed or Wound Vac : No Lynsey Hudson RN - 07/04/2022 14:14 EDT * Tracie Marx DO: MODIFY, MODIFY, MODIFY, PERFORM Event Display: Discharge/Transfer Note Hospital Authored Date: [id number] Patient: ??NATALI CORTES ? Age:??76 Years?Sex:??Female?:??1945?? 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 _ Discharge Medications Acetaminophen (acetaminophen 500 [...] blood sugar 3 times daily. E11.65. 90-day supply. Durable Medical Equipment (Freestyle lite Lancet Device)?See Instructions?Use lancet device to prick finger for glucose testing. Durable Medical Equipment (Pen [place], 32 G x 4 mm BD Ultra Fine III)?See Instructions?Use to inject insulin once daily. . 90-day supply. Durable Medical Equipment (Freestyle Lite Test Strips)?See Instructions?Check blood sugar 3 times daily. . 90-day supply. Fluticasone Nasal (fluticasone 50 mcg/inh nasal [...] not crush or chew Miscellaneous Rx (FreeStyle Aritsides sensors)?See Instructions?change every 10 days, ??(3 each/sensors/month), E11.9 Miscellaneous Rx (FreeStyle Precision Saurabh Test Strips)?See Instructions?test BG 4x daily if symptomatic, E11.9 Miscellaneous Rx (FreeStyle Aristides reader)?See Instructions?Use to read Aristides Sensor 5x daily,can also use to test BG 2x daily, DxE10.9 ??[facility]# [id number] Nitroglycerin (nitroglycerin 0.4 mg sublingual tablet)?1?tab(s)?0.4?Milligram?Sublingual?Every 5 [...] oral tablet)?1?tab(s)?90?Milligram?By Mouth?2 times a day ? Quality Measures Chest Pain, AMI Quality Measures:?ACEI or ARB for LVSD:??ACEI has been prescribed ?Beta-Myra Prescribed at Discharge:??Beta-Myra Prescibed ? Medications Started Isosorbide Mononitrate (isosorbide mononitrate 30 mg oral tablet, extended release)?1?tab(s)?30?Milligram?By Mouth?Daily Lisinopril (lisinopril 5 mg oral tablet)?5?Milligram?1?tablet?By Mouth?Daily Metoprolol (metoprolol 25 mg oral tablet, extended release)?25?Milligram?1?tablet?ByMouth?Daily Nitroglycerin (nitroglycerin 0.4 mg sublingual tablet)?1?tab(s)?0.4?Milligram?Sublingual?Every 5 minutes?as needed?Chest Pain Ticagrelor (ticagrelor 90 mg oral tablet)?1?tab(s)?90?Milligram?By Mouth?2 times a day Medications Discontinued Amlodipine Doses Changed None Allergies Allergies ?(Active and Proposed Allergies Only) NKA? (Severity: Unknown severity, Onset: Unknown) No Known Medication Allergies? (Severity: Unknown severity, Onset: Unknown) ? PCP Follow-Up/Heads-Up Please follow up within a week and repeat BMP ?? Would recommend considering starting SGLT2i ?? Patient will follow up with cardiology and cardiac rehab outpatient -- plan for staged PCI of LAD and LCx Hospital Course 76-year-old female with history of insulin-dependent diabetes mellitus, hypertension, hyperlipidemia, asthma, GERD, and depression who presented to [facility] on 06/26/2022 with complaints ofchest pain. Work-up was consistent with NSTEMI, and the patient was transferred here to [facility] for cardiac catheterization. Found to have three vessel disease,??and through several conversations with family decision was made to pursue PCI, now s/p angioplasty and DESx3 from Ostial to Distal RCA w/ rotablation and shockwave. RDPA to be managed medically. LAD and LCx to be staged in the future. Patient is now chest pain??free, hemodynamically stable, and ready for discharge home. ? NSTEMI (non-ST elevated myocardial infarction) Coronary Artery Disease Presented with complaints of chest pain at [facility], found to have NSTEMI and transferred to [facility] for further management Severe three-vessel coronary artery disease involving mid LAD, OM 2 and RCA. Patient has good target in the mid to distal LAD, D1, OM 2, RPDA/RPL. Echo: ejection fraction is 40-45 %. The inferior, basal inferoseptal wall is hypokinetic. Grade I, mild diastolic dysfunction with impaired LV relaxation. mild to moderate mitral regurgitation. BP has been well controlled and pt continues to be asymptomatic Patient and her family had multiple conversations with both cardiothoracic surgery and dimensional cardiology and??decided to pursue cardiac catheterization s/p angioplasty and DESx3 from Ostial to Distal RCA w/ rotablation and shockwave. RDPA to be managed medically. LAD and LCx to be staged in the future. Patient is chest pain free this morning ?? Recommendations: ??- Continue aspirin 81 mg p.o. indefinitely ??- Brilinta 90 mg p.o. twice daily for 1 year post-intervention ??- Holding beta myra in setting of intermittent bradycardia?_ ??- Continue atorvastatin 80 mg nightly ??- Continue chlorthalidone, clonidine patch, and spironolactone as prescribed. ??- Amlodipine was discontinued ??- Started imdur 30mg daily ??- Started lisinopril 5mg daily ??- Nitro prn - Staged PCI of the LAD and OM2 in 3 to 4 weeks as an outpatient. ??- Follow-up with Dr. Kelley Us at the [facility] creative coordinator office ??in 6 to 8 weeks. ??- Cardiac rehabilitation??to follow outpatient ? Chronic, Stable, or Resolved Conditions Insulin dependent type 2 diabetes mellitus: HbA1c 8.2 at [facility]. Continue home regimen. Asthma: Albuterol MDI PRN GERD (gastroesophageal reflux disease): Continue PPI as prescribed. Depression: Mood is stable. Continue sertraline as prescribed. Hypertension: Continue chlorthalidone, clonidine patch, spironolactone, Imdur, and lisinopril as above Hyperlipidemia: Continue atorvastatin ?? Objective Vital Signs?? Temperature: 97.6 DegF (07/04/22 03:18:00) Temperature Route: Temporal (07/04/22 03:18:00) Pulse Rate: 65 bpm (07/04/22 03:18:00) Heart Rate Monitored:??52 bpm??Low (07/03/22 12:00:00) Respiratory Rate: 20 br/min (07/04/22 03:18:00) Systolic Blood Pressure: 96 mm Hg (07/04/22 03:18:00) Diastolic Blood Pressure:??51 mm Hg??Low (07/04/22 03:18:00) Blood pressure sites: Arm, left (07/04/22 03:18:00) Mean Arterial Pressure: 66 mm Hg (07/04/22 03:18:00) Pulse Pressure: 45 mm Hg (07/04/22 03:18:00) Oxygen Saturation: 100 % (07/04/22 03:18:00) Liters per Minute: 0 L/min (07/03/22 12:45:00) Mode of Delivery (Oxygen): Room air (07/04/22 03:18:00) Early Warning Score: 3 (07/04/22 03:43:11) ? . Physical Exam Constitutional: alert, no acute distress, laying in bed HEENT: Normocephalic. Moist mucous membranes. Respiratory: Clear to auscultation. No wheezing, rales or rhonchi. Cardiovascular: S1 S2 regular. No murmurs, rubs or gallops. Gastrointestinal: Abdomen soft, non-tender, non-distended. Skin: No rashes or lesions. Psychiatric: Normal mood and affect Consultants Cardiology Pending Results None Patient Education Titles Ticagrelor Oral Tablet?? Nitroglycerin Sublingual Tablet?? Lisinopril Oral Tablet?? Isosorbide Extended Release Oral Tablet?? Discharge Instructions for Heart Attack?? Eating Heart-Healthy Foods?? Symptoms of a Heart Attack?? Follow-Up Appointments Added Follow Up ?Time Frame ?Comments Not on Staff, PCP?1 week Patient Instructions During this hospitalization you were??treated for: -?Heart Attack ?? The barrios diagnostic tests and??treatments during your hospital stay were : -?EKG, cardiac enzymes, cardiac monitoring, cardiac catheterization ?? You will go home with the following NEW medications: Isosorbide Mononitrate (isosorbide mononitrate 30 mg oral tablet, extended release)?1?tab(s)?30?Milligram?By Mouth?Daily Lisinopril (lisinopril 5 mg oral tablet)?5?Milligram?1?tablet?By Mouth?Daily Metoprolol (metoprolol 25 mg oral tablet, extended release)?25?Milligram?1?tablet?ByMouth?Daily Nitroglycerin (nitroglycerin 0.4 mg sublingual tablet)?1?tab(s)?0.4?Milligram?Sublingual?Every 5 minutes?as needed?Chest Pain Ticagrelor (ticagrelor 90 mg oral tablet)?1?tab(s)?90?Milligram?By Mouth?2 times a day ?? The following medications were CHANGED or STOPPED: -?Amlodipine was STOPPED ?? Activity changes: -?Restrictions in [...] think require emergency management?? Post Discharge Care Activity to be increased per cardiac rehab recommendations Limit salt and fatty foods in diet Home Health Face to Face ^HomeHealthFTF Results Discharge Labs BLOOD COUNT & DIFF WBC 13.3 k/mm3 (High)?? 07/03/2022 13:02 RBC 4.36 m/mm3 ()?? 07/03/2022 13:02 Hgb 13.4 Gm/dL ()?? 07/03/2022 13:02 Hct 39.1 % ()?? 07/03/2022 13:02 MCV 89.7 femtoliters ()?? 07/03/2022 13:02 MCH 30.7 pg ()?? 07/03/2022 13:02 MCHC 34.3 g/dL ()?? 07/03/2022 13:02 Platelet Count 184 k/mm3 ()?? 07/03/2022 13:02 RDW-SD 40.6 femtoliters ()?? 07/03/2022 13:02 MPV 10.8 femtoliters ()?? 07/03/2022 13:02 Nucleated RBC (Automated) 0.0 #/100 WBC'S ()?? 07/03/2022 13:02 Abs. NRBC 0.0 k/mm3 ()?? 07/03/2022 13:02 ?? CHEM GENERAL Sodium 138 mmol/L ()?? 07/03/2022 13:02 Potassium 4.3 mmol/L ()?? 07/03/2022 13:02 Chloride 100 mmol/L ()?? 07/03/2022 13:02 Bicarbonate Level 26 mmol/L ()?? 07/03/2022 13:02 Anion Gap 12 ()?? 07/03/2022 13:02 Glucose Level 135 mg/dL (High)?? 07/03/2022 13:02 Glucose, POC 224 mg/dL (High)?? 07/03/2022 20:06 BUN 25 mg/dL (High)?? 07/03/2022 13:02 Creatinine-Blood 0.8 mg/dL ()?? 07/03/2022 13:02 Estimated GFR Creatinine 81 ML/MIN/1.73 M2 ()?? 07/03/2022 13:02 Calcium 9.4 mg/dL ()?? 07/03/2022 13:02 Magnesium 1.8 mg/dL ()?? 07/03/2022 13:02 ?? COAG APTT 29.7 seconds ()?? 06/27/2022 14:54 POC ACT-LR 330.0 seconds ()?? 06/27/2022 18:33 ?? HEME OTHER Hold Lavender Top SPECIMEN DISCARDED AFTER 24 HOURS. ()?? 06/27/2022 14:54 ? VIROLOGY COVID-19 by RT-PCR NEGATIVE ()?? 07/03/2022 05:00 ? Procedures(s) ?Cardiac Line Analyst Report ?? 07/03/2022 07:54??by Víctor Avery MD ?Conclusions ?? Diagnostic Summary ??76-year-old female with hypertension, hyperlipidemia, diabetes mellitus type ??2 who presented to the hospital with NSTEMI. ?? LVEDP 11 mmHg. ??No significant pullback gradient across aortic valve ?? Diagnostic angiogram revealed 80% heavily calcified diffuse lesion in the ??mid RCA which is the culprit lesion. Patient also has 70% stenosis in the ??mid segment of the distal RCA with a calcified nodule there. The PDA has ??multiple 70% tandem lesion. ?? Proceed with intervention of the mid and distal RCA. ?? Diagnostic Recommendations ??Proceed with intervention of the mid and distal RCA. ?? Interventional Summary ??Distal RCA: ??Shockwave atherectomy performed using 2.5 mm X12 millimeter NC balloon. ??3.0 mm X 15 mm Rah frontier ITZ was placed and postdilated with 3.5 mm X12 ??millimeter NC balloon. ??IVUS performed which did not show any complication. ?? Mid RCA: ??Rotational atherectomy performed using 1.5 mm bar. ??IVUS performed. ??We placed a 3.5 mm X 26 mm [place] frontier ITZ and postdilated with 3.5 mm X12 ??millimeter NC balloon distally and 4.0 mm X 20 mm NC balloon proximally. ?? Proximal RCA: ??We placed a 4.0 mm X12 millimeter Rah frontier ITZ in the proximal RCA up ??to the ostium and postdilated with 4.0 mm X 20 mm NC balloon. ?? Interventional Recommendations ??Continue aspirin 81 mg p.o. indefinitely and Brilinta 90 mg p.o. twice daily ??1 year postintervention. ??Staged PCI of the LAD and OM2 in 3 to 4 weeks as an outpatient. ??Guideline directed medical management for coronary artery disease. ??Follow-up with Dr. Kelley Us at the [facility] creative coordinator office ??in 6 to 8 weeks. ?Cardiac Line Analyst Report ?? 06/27/2022 17:58??by Víctor Avery MD ?Conclusions ?? Diagnostic Summary ??76-year-old female with history of diabetes mellitus type 2, hypertension, ??hyperlipidemia who presented to the hospital with NSTEMI. ?? LVEDP 7 mmHg. ??No significant pullback gradient across aortic valve. ?? Diagnostic angiogram revealed mild diffuse disease of the LMCA, 60% stenosis ??in the proximal subsection of mid LAD, 50% stenosis in the mid subsection of ??D1, 90% stenosis in the proximal subsection of OM2, 85% stenosis in the ??proximal subsection of mid RCA which is heavily calcified, 40% stenosis in ??the distal subsection of distal RCA and 70% stenosis in the proximal ??subsection of RPDA. ?? Considering the above finding, we decided to proceed with IFR assessment of ??the mid LAD lesion. ?? Diagnostic Recommendations ??iFR of the mid LAD lesion. ?? Interventional Summary ??Mid LAD: ??iFR of the mid LAD came out 0.77 indicating hemodynamically significant ??lesion. ?? Above-mentioned finding indicates that patient has severe three-vessel ??coronary artery disease involving mid LAD, OM 2 and RCA. Patient has good ??target in the mid to distal LAD, D1, OM 2, RPDA/RPL. ?? I would consult cardiothoracic surgery for evaluation of CABG for her. If ??she is deemed not a surgical candidate or patient refuses to go for CABG, we ??will consider PCI of the mid LAD and RCA. ?? Interventional Recommendations ??Continue aspirin 81 mg p.o. indefinitely. ??Maximize medical therapy. ??Echocardiogram. ??Cardiothoracic surgery evaluation for CABG. ??If patient is deemed high risk for cardiothoracic surgery or patient ??refuses, may consider PCI of the mid LAD and RCA for now. ? Imaging(s) ?Echocardiogram - Complete ?? 06/29/2022 11:33??by Kelly Hsieh MD ?Summary ??The left ventricular size is normal. Left ventricular wall thickness is ??normal. The left ventricular ejection fraction is 40-45 %. The inferior, ??basal inferoseptal wall is hypokinetic. Grade I, mild diastolic dysfunction ??with impaired LV relaxation. ??The aortic valve is trileaflet and normal in structure and function. There ??is no aortic stenosis or insufficiency. ??The right ventricular size and function appears grossly normal. ??There is no significant pericardial effusion. ??The mitral valve appears mildly thickened. There is mild to moderate mitral ??regurgitation. ?? Comparison ??No prior study available for comparison. ?VL Carotid Duplex Scan Bilat ?? 06/29/2022 15:29??by Andry Casas MD ?Physician Conclusions Summary: Right Side: 1-49% stenosis in the Internal Carotid Artery. Antegrade flow in the Vertebral Artery. Multiphasic flow is seen in the Subclavian Artery. ?? Left Side: 1-49% stenosis in the Internal Carotid Artery. Antegrade flow in the Vertebral Artery. Multiphasic flow is seen in the Subclavian Artery. ?VL Carotid Duplex Scan Bilat ?? 06/28/2022 13:34??by Mandeep Calvillo MD ?Physician Conclusions Summary: Right side: 1-49% stenosis of the Internal Carotid Artery. Antegrade Vertebral artery flow. Multiphasic Subclavian artery flow. ? Left side: 1-49% stenosis of the Bulb / Internal Carotid Artery. Antegrade Vertebral artery flow. Multiphasic Subclavian artery flow. ?VL Venous Duplex Mapping Lower Ext Bilat ?? 06/29/2022 15:41??by Andry Casas MD ?Physician Conclusions Summary: Right side: The Great Saphenous Vein and Small Saphenous Vein appear patent with measurements as noted above. ?? Left side: The Great Saphenous Vein and Small Saphenous Vein appear patent with measurements as noted above. ?VL Venous Duplex Mapping Lower Ext Bilat ?? 06/28/2022 14:10??by Mandeep Calvillo MD ?Physician Conclusions Summary: Right side: The right Great Saphenous Vein is patent with measurements as noted above. There is no evidence of deep vein thrombosis in the segments insonated. The right Small Saphenous Vein is patent with measurements as noted above. Thick walled right small saphenous vein. ?? Left side: The left Great Saphenous Vein is patent with measurements as noted above. The great saphenous vein leaves the fascia at proximal calf. There is no evidence of deep vein thrombosis in the segments insonated. The left Small Saphenous Vein is patent with measurements as noted above. ? 40??minutes spent on discharge ?? Tracie Marx, DO Med/Peds PGY [address] [place] [id number] ?? Patient seen and discussed with attending Dr. Liza Moctezuma RN, Linda Cheney: PERFORM Event Display: Patient Education/Instruction Authored Date: [id number] Inpatient Adult Discharge Instructions [address] [id number] Name: NATALI CORTES : 1945 Visit: 06/27/2022 13:32:00 Current Date: 07/04/2022 12:17 Account: [id number] Inpatient Adult Discharge Instructions We would like [...] and their families. Surveys are administered by [employer]. ?? If further treatment with your primary care physician or another doctor is recommended, it is important for you to keep the appointment. Call your primary care physician or return to the Emergency Department immediately if your condition worsens, fails to improve, or new symptoms develop. If you need to find a doctor, you can call [facility] [place] for a referral at [phone] or toll free at [phone]) or log in to [email or web address].. ?? You can view and manage your care through the patient portal or by using a health care crescencio of your choosing. MyTime is a website that allows you to securely view your medical information including your hospital discharge summary, office visit summaries, medications and follow-up visits. You can also request appointments, renew medications, and request access to your medical information using a health care crescencio of your choosing, or just ask a question. You can enroll at [email or web address] or register during your next office visit. You have been discharged from [facility], Patient Care Unit: M7. If you have any questions regarding these instructions after you leave, please call us and we will be happy to assist you. [facility] Your Care Team Attending Physician Mandeep Rodas MD Consulting Providers Violeta MALDONADO, Rigo Laboy MD, Arcenio Silver Discharging Providers Tracie Marx DO Reason for Your Visit Transfer from [facility] for NSTEMI. Your Diagnosis NSTEMI (non-ST elevated myocardial infarction) Hypertension Hyperlipidemia Insulin dependent type 2 diabetes mellitus Asthma GERD (gastroesophageal reflux disease) Depression Tests Performed Below is a partial list of the tests performed during your hospitalization. You may have had other tests and procedures not included in this list. Please discuss all test results with your provider. Basic Metabolic Panel BUN Calcium Level CBC COVID-19 (NOVEL CORONAVIRUS), PCR Creatinine Electrolytes GLUCOSE POC HOLD LAVENDER TUBE Magnesium Level POC Hemochron ACT-LR PTT Primary Care Provider Liset Mitchell MD Advance Directive . Discharge Vitals Temperature: 97.5 DegF Weight: 67.8 kg Pulse Rate: 78 bpm ?? Respiratory Rate: 18 br/min ?? Systolic Blood Pressure: 130 mm Hg ?? Diastolic Blood Pressure:??50 mm Hg??Low ?? Oxygen Saturation: 100 % ?? Studies Pending All tests and labs ordered during this hospital stay have been completed unless listed below. Please discuss all pending results with your provider listed above in these instructions. ?? COVID-19 (2019 Novel Coronavirus) PCR Glucose POC What to do next Instructions From Your Doctor During this hospitalization you were??treated for: -?Heart Attack ?? The barrios diagnostic tests and??treatments during your hospital stay were : -?EKG, cardiac enzymes, cardiac monitoring, cardiac catheterization ?? You will go home with the following NEW medications: Isosorbide Mononitrate (isosorbide mononitrate 30 mg oral tablet, extended release)?1?tab(s)?30?Milligram?By Mouth?Daily Lisinopril (lisinopril 5 mg oral tablet)?5?Milligram?1?tablet?By Mouth?Daily Metoprolol (metoprolol 25 mg oral tablet, extended release)?25?Milligram?1?tablet?ByMouth?Daily Nitroglycerin (nitroglycerin 0.4 mg sublingual tablet)?1?tab(s)?0.4?Milligram?Sublingual?Every 5 minutes?as needed?Chest Pain Ticagrelor (ticagrelor 90 mg oral tablet)?1?tab(s)?90?Milligram?By Mouth?2 times a day ?? The following medications were CHANGED or STOPPED: -?Amlodipine was STOPPED ?? 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, [address] [place], [place] Follow Up with??Not on Staff, PCP When??Within 1 week Where: Discharge Medications NATALI CORTES :1945 Visit Date:06/27/2022 Medications: Please continue your medications until treatment is completed or stopped by your provider. Medications not listed below should be discontinued. Discuss any questions related to medications with your provider. What How Much When Instructions Next Dose New Isosorbide Mononitrate (isosorbide mononitrate 30 mg oral tablet, extended release) 1 tab(s) Oral Daily Pickup at [facility]? New Lisinopril (lisinopril 5 mg oral tablet) 1 tab(s) Oral Daily Pickup at [facility] 3 En [facility] New Metoprolol (metoprolol 25 mg oral tablet, extended release) 1 tab(s) Oral Daily Pickup at [facility] 3 En [facility] New Nitroglycerin (nitroglycerin 0.4 mg sublingual tablet) 1 tab(s) Sublingual Every 5 minutes as needed for Chest Pain Pickup at [place] [address] [place] necesario New Ticagrelor (ticagrelor 90 mg oral tablet) 1 tab(s) Oral Twice a day Refills: 11 Pickup at [place] [address] Hora de dormir esta noche Changed Albuterol (Albuterol (Eqv-Proventil HFA) 90 mcg/ inh inhalation aerosol) 2 puff(s) Inhalation Every 6 hours Brandan sea necesario Changed Aspirin (aspirin 81 mg oral delayed release tablet) 1 tab(s) Oral Daily En [facility] [place] Changed Atorvastatin (atorvastatin 80 mg oral tablet) 1 tab(s) Oral Daily at Bedtime Hora de dormir esta noche Changed Chlorthalidone (chlorthalidone 25 mg oral tablet) 1 tab(s) Oral Daily En [facility] Changed Clonidine (cloNIDine 0.2 mg/ 24 hr transdermal film, extended release) 1 patch(es) Topically Every week Cada semana Changed Fluticasone Nasal (fluticasone 50 mcg/ inh nasal spray) 1 spray(s) Nares, Both Twice a day Hora de dormir esta noche Changed Insulin Glargine (Lantus Solostar Pen 100 units/ mL subcutaneous solution) 28 unit(s) Subcutaneous Injection Daily at Bedtime Hora de dormir esta noche Changed Latanoprost Ophthalmic (latanoprost 0.005% ophthalmic solution) 1 Drops Both eyes Daily at Bedtime Hora de dormir esta noche Changed Omeprazole (omeprazole 20 mg oral delayed release tablet) 1 tab(s) Oral Daily En Changed mirabegron (Myrbetriq 25 mg oral tablet, extended release) 1 tab(s) Oral Daily do not crush or chew ?? En la Unchanged Acetaminophen (acetaminophen 500 mg oral tablet) 1 tab(s) Oral 3 times a day as needed for Pain , Mild Brandan sea necesario Unchanged Diclofenac Topical (diclofenac 1% topical gel) 1 crescencio Topically 4 times a day A las 4 de la tarde Unchanged Durable Medical Equipment (Aerochamber) See instructions use with all inhalers ?? Unchanged Durable Medical Equipment (Freestyle lite Lancet Device) See instructions Use lancet device to prick finger for glucose testing. E11.65 ?? Unchanged Durable Medical Equipment (Freestyle Lite Lancets) See instructions Use to check blood sugar 3 times daily. E11. 90-day supply. ?? Unchanged Durable Medical Equipment (Freestyle Lite Monitor) See instructions Duration: 30 Days Use to checkblood sugar 4-5 times daily. E1165 ?? Unchanged Durable Medical Equipment (Freestyle Lite Test Strips) See instructions Check blood sugar 3 times daily. E11. 90-day supply. ?? Unchanged Durable Medical Equipment (Pen [place], 32 G x 4 mm BD Ultra Fine III) See instructions Use to inject insulin once daily. . 90-day supply. ?? Unchanged Lidocaine Topical (lidocaine 5% topical film) 1 patch(es) Topically Daily as needed for Pain , Mild remove after 12 hours ?? En Unchanged Miscellaneous Rx (FreeStyle Aristides reader) See instructions Use to read Aristides Sensor 5x daily, can also use to test BG 2x daily, DxE10.9 ??[facility]# [id number] ?? Unchanged Miscellaneous Rx (FreeStyle Aristides sensors) See instructions change every 10 days, ??(3 each/ sensors/ month), E11.9 ?? Unchanged Miscellaneous Rx (FreeStyle Precision Saurabh Test Strips) See instructions test BG 4x daily if symptomatic, E11.9 ?? Unchanged Sertraline (sertraline 50 mg oral tablet) 1 tab(s) Oral Daily En Unchanged Simethicone (Gas Relief Extra Strength 125 mg oral tablet, chewable) TAKE 1 TABLET BY MOUTH NEEDED AFTER MEALS AND AT BEDTIME FOR GAS ?? Brandan sea necesario Unchanged Spironolactone (spironolactone 25 mg oral tablet) 1 tab(s) Oral Daily En [facility] [address], [place] [id number] [phone] ?? What How Much When Why Comments Stop Taking Albuterol/ Ipratropium (albuterol-ipratropium 3 mg-0.5 mg/ 3 ml inhalation solution) 3 Milliliter Nebulized inhalation Every 4 hours as needed for Wheezing/Shortness of Breath Stop Taking Amlodipine (amLODIPine 10 mg oral tablet) 1 tab(s) Oral Daily Stop Taking Amlodipine (amLODIPine 10 mg oral tablet) 1 tab(s) Oral Daily Stop Taking Cetirizine (cetirizine 10 mg oral tablet) 1 tab(s) Oral Daily Stop Taking Cyanocobalamin (Vitamin B12) 1,000 Microgram Oral Daily Stop Taking Duloxetine (duloxetine 60 mg oral enteric coated capsule) 1 capsule Oral Daily Stop Taking Estradiol Topical (estradiol 0.1 mg/ g vaginal cream) Stop Taking Estradiol Topical (estradiol 0.1 mg/ g vaginal cream) 1 gram Vaginally Daily at Bedtime take every night for two weeks then twice weekly ?? Stop Taking Fexofenadine (fexofenadine 180 mg oral tablet) Stop Taking Fluticasone (Flovent HFA 220 mcg/ inh inhalation aerosol) 2 puff(s) Inhalation Twice a day rinse mouth and throat after use ?? Stop Taking fluticasone-vilanterol (Breo Ellipta 100 mcg-25 mcg/ inh inhalation powder) 1 puff(s) Inhalation Daily Stop Taking HydrALAZINE (hydrALAZINE 25 mg oral tablet) Stop Taking Loratadine 10 Milligram Oral Daily Stop Taking Losartan (losartan 100 mg oral tablet) Oral Daily Stop Taking Multivitamin Oral Daily Stop Taking Ondansetron (Zofran 4 mg oral tablet) 1 tab(s) Oral Every 8 hours as needed for Nausea & Vomiting Gastritis Stop Taking Polyethylene Glycol 3350 (GaviLAX oral powder for reconstitution) Stop Taking Pravastatin (pravastatin 20 mg oral tablet) 1 tab(s) Oral Daily Stop Taking Ranitidine (raNITIdine 150 mg oral capsule) 1 capsule Oral Twice a day as needed for acid reflux Gastritis Stop Taking sitagliptin (Januvia 100 mg oral tablet) See instructions TOME RICA KRAFT [place] ?? Stop Taking Sodium Chloride Nasal (Saline Nasal Mist) See instructions Nares, Both 2 times a day 30 days ?? Stop Taking Sulfamethoxazole/ Trimethoprim (sulfamethoxazole-trimethoprim 800 mg-160 mg oral tablet) Test Results Below is a partial list of the most recent Laboratory test results done prior to this discharge. You may have had other tests and procedures not included in this list. Please discuss all test resultswith your provider. Basic Metabolic Panel (07/04/2022) ???Sodium - 138 mmol/L???Potassium - 3.9 mmol/L???Chloride - 101 mmol/L???Bicarbonate Level - 27 mmol/L???Anion Gap - 10???Glucose Level - 114 mg/dL???BUN - 21 mg/dL???Creatinine-Blood - 0.8 mg/dL???Estimated GFR Creatinine - 75 ML/MIN/1.73 M2???Calcium - 9.3 mg/dL BUN (07/02/2022) ???BUN - 36 mg/dL Calcium Level (06/29/2022) ???Calcium - 10.0 mg/dL CBC (07/04/2022) ???WBC - 9.6 k/mm3???RBC - 3.98 m/mm3???Hgb - 12.0 Gm/dL???Hct - 35.8 %???MCV - 89.9 femtoliters???MCH - 30.2 pg???MCHC - 33.5 g/dL???Platelet Count - 187 k/mm3???RDW-SD - 42.0 femtoliters???MPV - 11.2 femtoliters???Nucleated RBC (Automated) - 0.0 #/100 WBC'S???Abs. NRBC - 0.0 k/mm3 COVID-19 (NOVEL CORONAVIRUS), PCR (07/03/2022) ???COVID-19 by RT-PCR - NEGATIVE Creatinine (07/02/2022) ???Creatinine-Blood - 1.0 mg/dL???Estimated GFR Creatinine - 58 ML/MIN/1.73 M2 Electrolytes (07/02/2022) ???Sodium - 138 mmol/L???Potassium - 4.5 mmol/L???Chloride - 99 mmol/L???Bicarbonate Level - 27 mmol/L???Anion Gap - 12 GLUCOSE POC (07/04/2022) ???Glucose, POC - 96 mg/dL HOLD LAVENDER TUBE (06/27/2022) ???Hold Lavender Top - SPECIMEN DISCARDED AFTER 24 HOURS. Magnesium Level (07/04/2022) ???Magnesium - 1.8 mg/dL POC Hemochron ACT-LR (06/27/2022) ???POC ACT-LR - 330.0 seconds PTT (06/27/2022) ???APTT - 29.7 seconds Allergies (NKA means No Known Allergies) NKA No Known Medication Allergies Problems Active Problems??(15) Acid reflux?? Asthma?? Asthma - PFTs 200 at [place], mild obst defect - sees pulm?? Depression?? Diabetes - sees endocrinology?? Diastolic dysfunction - echo in prior records 08/01/2016 EF 50-55%, grade 2 diastolic dysfunction, mil?? GERD (gastroesophageal reflux disease)?? Hyperlipidemia?? Hyperlipidemia?? Hyperlipidemia LDL goal < 100?? Hypertension?? Hypertension?? Insulin dependent type 2 diabetes mellitus?? Obese class I?? ROXIE (obstructive sleep apnea) - sleep study [facility] 12/28/2008 - in old records?? Education Materials Below is the list of Educational Leaflet Providered with your Discharge Instructions. Ticagrelor Oral Tablet?? Fast-Acting Nitroglycerin?? Metoprolol Oral Tablet?? Lisinopril Oral Tablet?? Isosorbide Oral Tablet?? Controlling Your Cholesterol?? Eating Well with High Blood Pressure?? Controlling High Blood Pressure?? Discharge Instructions for Gastroesophageal Reflux Disease (GERD)?? Discharge Instructions for High Blood Pressure (Hypertension)?? Metoprolol Extended Release Oral Tablet?? Ticagrelor Oral Tablet?? Nitroglycerin Sublingual Tablet?? Lisinopril Oral Tablet?? Isosorbide Extended Release Oral Tablet?? Discharge Instructions for Heart Attack?? Eating Heart-Healthy Foods?? Symptoms of a Heart Attack?? Valuables and Belongings I fully understand and agree that [facility] accepts no responsibility for all my [...] to send valuables and belongings home. ?? Review of Valuable and Belonging List: With patient Date for Pt to Sign Valuables/Belongings: 06/27/22 14:06:00 ?? Other Discharge Information ? Case Management Discharge Plan?? Discharge Plan?? Discharge Agency Information?? Discharge Level of Care at Discharge: Home/Intermediate/Foster Care Agency Machine Design Teacher #1: [facility] Discharge Rx Program: Discharge Prescription Program Service Categories #1: coffee attendant Discharge Rx Program: Discharge Prescription Program Service Comments #1: Your VICE PRESIDENT BIOSTATISTICS services will resume at home. [facility] will contact you and come to your house to perform to re-evaluate for additional services if elgible when you are home. Please contact [facility] insurance with any questions. Discharge VNA/Hospice/Home Care: [facility] provides VICE PRESIDENT [employer]IST[employer] services Name of Person Notified of Transfer: Natali Cortes - patient ?? Pulmonary Rehab Status?? Pulmonary Rehab Discharge Status?? Respiratory Rate: 18 br/min ? Common Emergency Awareness Tips IS IT A [...] are strongly encouraged to quit. Please call [facility] at [phone] or [phone] ([phone]) or log in to [email or web address] for referrals to smoking cessation programs. ?? 334 Suicide & Crisis Lifeline is available 18/09 if you or someone you know needs to find a reason to keep living. By calling 559 you'll be connected to a skilled, trained counselor at a crisis center in your area. INPATIENT DISCHARGE INSTRUCTIONS SIGNATURE PAGE NATALI CORTES Location:[facility] Registration Date and Time:06/27/2022 13:32 EDT Primary Care Physician: Liset Mitchell MD, I CORTESNATALI, have received the above patient education materials/instructions and have verbalized understanding. If ambulance or transport services are being used I further acknowledge being given a choice of service. ?? If you need to contact me, please call me at this number: . Patient/General Car Supervisor Yard Name: Patient/General Car Supervisor Yard Signature: Relationship to Patient: Witness Name/Signature: Date: * Keira Tejada RN.: PERFORM, SIGN, VERIFY Event Display: Patient Education Handout Authored Date: * Linda Moctezuma RN: PERFORM Event Display: Patient Education Leaflets Authored Date: Ticagrelor Oral Tablet ?? [id number] Ticagrelor Oral Tablet Brands: Brilinta Usos Areli medicamento se usa para las siguientes afecciones: ??? enfermedad card??parrish ??? prevenir ataques card??acos ??? prevenir co??gulos de rudy ?? Instrucciones Areli medicamento se puede chuck con o sin alimentos. Areli medicamento funciona mejor si se usa a aproximadamente la misma hora todos los d??as. Guarde a temperatura ambiente, alejado del calor, la stefany y la humedad. No lo guarde en el ba??o. Es importante que contin??e tomando todas las dosis de areli medicamento a la hora indicada aunque se sienta yannick. Si olvida usar rica dosis, simplemente espere. Use la dosis siguiente en el horario regular. No use 2 dosis al mismo tiempo. Las interacciones con otros medicamentos pueden cambiar la forma en que act??an los medicamentos o aumentar el riesgo de presentar efectos secundarios. Informe a morteza profesionales sanitarios acerca de todos los medicamentos que usa. [place] incluye medicamentos con y sin receta m??dica, vitaminas y medicamentos a base de hierbas. Hable con trevino m??dico o farmac??utico antes de empezar o dejar de usar cualquier medicamento. Es muy importante que siga las instrucciones de trevino m??dico para todos los an??lisis de rudy. ?? Precauciones Esta medicina puede causar graves problemas de hemorragia en pacientes que ankit medicamentos diluyentes de la rudy. Siga atentamente las instrucciones de trevino m??dico para monitorear morteza ex??menes de rudy en laboratorio si cuco diluyentes de la rudy. Informe a trevino m??dico y a trevino farmac??utico si alguna vez kumar tenido rica reacci??n al??rgica a un medicamento. Areli medicamento puede causar sangrado intenso del est??zheng o los intestinos. Deje de chuck areli medicamento y llame a trevino m??dico inmediatamente si nota alguna se??al de sangrado. El sangrado puede causar dolor de est??zheng, v??kimberly de un l??quido parecido a caf?? molido y heces de color perdue, o alquitranadas y oscuras. Hay un mayor riesgo de sangrado mientras cuco esta medicina; av??katy a trevino m??dico o enfermero si observa sangrado excesivo o moretones. No use el medicamento m??s veces de lo indicado. Hable con trevino m??dico antes de chuck cualquier medicamento que contenga aspirina. Consulte a trevino m??dico antes de beber alcohol mientras usa areli medicamento. Informe a trevino m??dico o farmac??utico si est?? o planea quedar embarazada, o si est?? amamantando. No tome hierba de Abdifatah mientras use areli medicamento. Llame al m??dico inmediatamente si observa sangrado o moretones fuera de lo com??n. No comparta areli medicamento con otras personas a quienes no se les recet??. Algunos pacientes presentan efectos secundarios graves con areli medicamento. P??justin a trevino farmac??utico que le muestre la informaci??n de la Administraci??n de Alimentos y Medicamentos (FDA) y que laanalice con usted. Siempre vuelva a surtir esta medicina antes de que se le acabe. ?? Efectos Secundarios La siguiente es rica lista de algunos efectos secundarios comunes de areli medicamento. Hable con el m??dico para saber qu?? debe hacer en lissette de tener estos u otros efectos secundarios. ??? tos ??? hemorragia nasal Llame al m??dico u obtenga atenci??n m??dica de inmediato si nota cualquiera de estos efectos secundarios m??s graves: ??? sangrado o moretones ??? interrupci??n de la respiraci??n justin el jonny??o ??? respiraci??n r??pida e irregular ??? tos con rudy, o v??kimberly con aspecto de poso de caf? desmayo ??? fiebre ??? adormecimiento u hormigueo en las mera y los pies ??? dolor de rey intenso o persistente ???dolor de piernas, hinchaz??n, calor o enrojecimiento repentinos ??? p??rdida de movimiento en cualquier parte del cuerpo ??? falta de aliento ??? heces con rudy o de color oscuro/alquitranadas ??? s??ntomas de accidente cerebrovascular (por ejemplo, debilidad en un lado del cuerpo, hablar arrastrando las palabras, confusi??n) ??? dificultad para tragar ??? cansancio o debilidad, extra??o o sin causa aparente ??? rudy en la orina ??? visi??n borrosa o cambios en la visi??n Algunas personas podr??an tener reacciones al??rgicas a areli medicamento. Entre los s??ntomas pueden incluirse: dificultad para respirar, erupci??n en la piel, comez??n, hinchaz??n o mareos intensos.Si nota algunos de estos s??ntomas, busque asistencia m??dica r??pidamente. ?? Extra Hable con trevino m??dico, enfermero o farmac??utico si tiene alguna pregunta acerca de areli medicamento. ?? [email or web address] NOTA IMPORTANTE: En areli documento hay rica explicaci??n breve sobre c??mo usar el medicamento, perono incluye todo lo que hay que saber acerca del medicamento. Trevino m??dico o trevino farmac??utico podr??a suministrarle otros documentos acerca de trevino medicamento. Comun??quese con ellos si tiene alguna pregunta. Siga siempre morteza consejos. [place] descripci??n m??s completa de areli medicamento est?? disponibleen ingl??s. Escanee areli c??digo en trevino tel??fono inteligente o en trevino tableta, o use la direcci??n web que aparece a continuaci??n. Tambi??n puede pedirle a trevino farmac??utico rica copia impresa. Si tiene alguna pregunta, h??gasela a trevino farmac??utico. La exhibici??n y el uso de esta informaci??n sobre f??rmacos est?? sujeta a los T??rminos de Uso. Copyright(c) 2022 [employer]. ?? [id number] [employer]. All rights reserved. This information is not intended as a substitute for professional medical care. Always follow your healthcare professional's instructions. ?? * Linda Moctezuma RN: PERFORM Event Display: Patient Education Leaflets Authored Date: [id number] Fast-Acting Nitroglycerin ?? [id number] Nitroglicerina de acci??n r??pida La nitroglicerina solomon la angina (dolor en el pecho) al enviar m??s rudy y ox??yasmani al coraz??n. Tambi??n reduce la necesidad de ox??yasmani del coraz??n mediante la dilataci??n de arterias. La nitroglicerina de acci??n r??pida puede detener un ataque de angina. Para chuck la nitroglicerina de acci??n r??pida, gela lo siguiente. Nota: Trevino proveedor de atenci??n m??dica podr??a darle instrucciones ligeramente distintas. Si es as??, s??galas atentamente. Tambi??n puede chuck rica vez la nitroglicerina para prevenir la angina antes de realizar las actividades que sabe que le causar??n angina. Para detener un ataque de angina de pecho Si??ntese antes de chuck la nitroglicerina. Areli medicamento puede provocarle mareos porque le reducir?? la presi??n arterial con rapidez. Si usa pastillas ??? Coloque rica pastilla debajo de la lengua o col??quela entre el labio y la enc??a o entre la mejilla y la enc??a. ??? Deje que la pastilla se disuelva por completo. No trague ni mastique la pastilla. ??? No coma, philip, fume ni mastique tabaco mientras la pastilla se disuelve. Si usa aerosol ??? Tay la boca y sostenga el aerosol maverick frente a la boca. ??? Presione el bot??n en la parte superior. Jhonathan??e rica vez sobre la lengua o debajo de la lengua. No lo inhale. ??? Cierre la boca. Luego, espere unos segundos antes de tragar. Despu??s de chuck rica pastilla o rociarse rica vez ??? Permanezca sentado justin pedro luis minutos.? Si la angina desaparece por completo, descanse un momento. Luego, siga con trevino rutina normal. ?Cu??ndo llamar al 911 Llame al 911 si la angina dura m??s de pedro luis minutos y no se solomon con rica pastilla o rica dosis deaerosol. No pierda tiempo. ??Es posible que est?? teniendo un ataque al coraz??n! Despu??s de llamar al 911, tome rica segunda pastilla o use por segunda vez el aerosol. Espere otroscinco minutos. Si la angina a??n no desaparece, tome rica tercera pastilla o dosis de aerosol. No tome m??s de winston pastillas o winston dosis de aerosol justin el transcurso de 15 minutos. Siga en l??queenie para recibir m??s instrucciones del 911 . ?? Precauciones ??? Limite la cantidad de alcohol que lisandra. Demasiado alcohol puede provocarle mareos o desmayos. ??? Informe a trevino proveedor de atenci??n m??dica acerca de cualquier medicamento, suplemento o medicamento a base de hierbas que use. La nitroglicerina puede interactuar con otros medicamentos. [place] puede causarle problemas graves.? No??use inhibidores de la fosfodiesterasa tate el sildenafilo. Estos son medicamentos que ayudan al funcionamiento sexual en los hombres. La combinaci??n de nitroglicerina con estos medicamentos puede causar rica disminuci??n muy abrupta de la presi??narterial. [place] puede ocasionar mareos, desmayos, un ataque al coraz??n o un ataque cerebral. ??? Verifique la fecha de vencimiento. Con el tiempo, la nitroglicerina puede perder efecto. ??? Lleve un poco de nitroglicerina consigo todo el tiempo. Guarde el shanita de la nitroglicerina en rica botella oscura en el refrigerador. ??? Informe a trevino proveedor de atenci??n m??dica si morteza ataques de angina allen m??s tiempo, ocurren con mayor frecuencia o son m??s graves. ?? Last Reviewed Date: 2018 ?? [id number] [employer]. Todos los derechos reservados. Esta informaci??n no pretende sustituir la atenci??n m??dica profesional. S??lo trevino m??dico puede diagnosticar y tratar un problema de bradly. ?? * Linda Moctezuma RN: PERFORM Event Display: Patient Education Leaflets Authored Date: [id number] Metoprolol Oral Tablet ?? [id number] Metoprolol Oral Tablet Brands: Lopressor Usos Areli medicamento se usa para las siguientes afecciones: ??? ataque card??aco ??? angina ??? enfermedad card??parrish ??? kaity presi??n arterial ??? prevenir migra??as ??? latidos card??acos irregulares ??? trastorno del movimiento ?? Instrucciones [place] el medicamento con alimentos. Areli medicamento funciona mejor si se usa a aproximadamente la misma hora todos los d??as. Mantenga el medicamento a temperatura ambiente, alejado maria r y el calor. Es importante que contin??e tomando todas las dosis de areli medicamento a la hora indicada aunque se sienta yannick. Si olvida chuck rica dosis a tiempo, t??estella fajardo pronto lo recuerde. Si es jelena la hora de la dosis siguiente, no tome la dosis olvidada. Vuelva al horario normal. No tome dos dosis al mismo tiempo. Las interacciones con otros medicamentos pueden cambiar la forma en que act??an los medicamentos o aumentar el riesgo de presentar efectos secundarios. Informe a morteza profesionales sanitarios acerca de todos los medicamentos que usa. [place] incluye medicamentos con y sin receta m??dica, vitaminas y medicamentos a base de hierbas. Hable con trevino m??dico o farmac??utico antes de empezar o dejar de usar cualquier medicamento. Areli medicamento puede ocasionar un nivel bajo de az??car en rudy. Consuma comidas regularmente yhaga ejercicio seg??n las indicaciones de trevino m??dico. Informe a trevino m??dico si tiene s??ntomas de nivel bajo de az??car en rudy, por ejemplo n??useas, sudoraci??n, piel fr??a, ritmo card??aco acelerado, hambre e irritabilidad. Si tiene diabetes, areli medicamento puede ocultar algunos de los signos de bajo nivel de az??car enla rudy, tate latidos r??pidos del coraz??n. Controle morteza niveles de az??car en la rudy regularmente y est?? atento a otros signos de bajo nivel de az??car en la rudy. ?? Precauciones Informe a trevino m??dico y a trevino farmac??utico si alguna vez kumar tenido rica reacci??n al??rgica a un medicamento. En algunos pacientes con corazones d??jodi los s??ntomas podr??an empeorar. Si tiene problemas para respirar, aumenta de peso, o se le hinchan las piernas o los tobillos, informe a trevino m??dico de inmediato. No use el medicamento m??s veces de lo indicado. Areli medicamento puede causar mareos o desmayo, sobre todo despu??s de hacer ejercicio o en clima c??lido. Tenga cuidado cuando se pare o se siente con rapidez. Areli medicamento puede afectar trevino capacidad de mantenerse alerta o de reaccionar con rapidez. No maneje ni opere m??quinas hasta que sepa qu?? efecto le provocar?? areli medicamento. Consulte a trevino m??dico antes de beber alcohol mientras usa areli medicamento. Informe a trevino m??dico o farmac??utico si est?? o planea quedar embarazada, o si est?? amamantando. No comparta areli medicamento con otras personas a quienes no se les recet??. ?? Efectos Secundarios La siguiente es rica lista de algunos efectos secundarios comunes de areli medicamento. Hable con el m??dico para saber qu?? debe hacer en lissette de tener estos u otros efectos secundarios. ??? diarrea ??? mareos o aturdimiento ??? falta de energ??a y cansancio ??? latidos lentos del coraz??n ??? baja presi??n arterial Llame al m??dico u obtenga atenci??n m??dica de inmediato si nota cualquiera de estos efectos secundarios m??s graves: ??? confusi??n ??? depresi??n o sentimiento de tristeza ??? desmayo ??? palidez o coloraci??n gian de la piel, los labios o las u??as ??? falta de aliento ??? cansancio o debilidad, extra??o o sin causa aparente ??? aumento de peso repentino o inexplicado Algunas personas podr??an tener reacciones al??rgicas a areli medicamento. Entre los s??ntomas pueden incluirse: dificultad para respirar, erupci??n en la piel, comez??n, hinchaz??n o mareos intensos.Si nota algunos de estos s??ntomas, busque asistencia m??dica r??pidamente. ?? Extra Hable con trevino m??dico, enfermero o farmac??utico si tiene alguna pregunta acerca de areli medicamento. ?? [email or web address] NOTA IMPORTANTE: En areli documento hay rica explicaci??n breve sobre c??mo usar el medicamento, perono incluye todo lo que hay que saber acerca del medicamento. Trevino m??dico o trevino farmac??utico podr??a suministrarle otros documentos acerca de trevino medicamento. Comun??quese con ellos si tiene alguna pregunta. Siga siempre morteza consejos. [place] descripci??n m??s completa de areli medicamento est?? disponibleen ingl??s. Escanee areli c??digo en trevino tel??fono inteligente o en trevino tableta, o use la direcci??n web que aparece a continuaci??n. Tambi??n puede pedirle a trevino farmac??utico rica copia impresa. Si tiene alguna pregunta, h??gasela a trevino farmac??utico. La exhibici??n y el uso de esta informaci??n sobre f??rmacos est?? sujeta a los T??rminos de Uso. Copyright(c) 2022 [employer]. ?? [id number] [employer]. All rights reserved. This information is not intended as a substitute for professional medical care. Always follow your healthcare professional's instructions. ?? * Event Display: Hemodynamic Procedure Report Authored Date: Cardiac catheterization study * Event Display: Cardiac Line Analyst Report Authored Date: Cardiac Diagnostic + PCI Report Demographics Patient Name GEOFFREY SUTTON Gender Female Corporate Race Unknown Facility Room Number M710 Height 59.06 inches Date of 1945 Weight 149.92 pounds Age 76 year(s) BSA 1.63 m2 Accession Number [id number] BMI 30.22 kg/m2 Referring Physician Víctor Avery MD Date of Study 07/03/2022 Matthew Silver MD Performing Physician Víctor Avery MD Fellow Ge Duval Interventional Physician Víctor Avery MD Procedure Procedure Type Diagnostic procedure:Coronary Angiography with [facility] PCI procedure:Coronary IVUS, Mechanical Atherectomy with Drug Eluting Stent, Lithotripsy Miscellaneous:ACT , Temporary Pacemaker Insertion with Fluro, ULTRASOUND GUIDANCE [facility] Diagnostic Catheterization Status:Urgent [facility] Interventional Catheterization Status:Urgent Indications Indications: Coronary artery disease. Clinical History Clinical Evaluation Leading to Procedure - The patient's CAD presentation was assessed as: Non-STEMI. - The patient's anginal syndrome during the past two weeks was assessed as: Class III according to the [place] Cardiovascular Society Classification System (CCS). [facility] Risk Factors The patient risk factors include:hypercholesterolemia, hypertension, diabetes mellitus, last creatinine: 1 mg/dl, creatinine clearance: 51.38 ml/min and dyslipidemia. Additional Clinical History:76-year-old female with hypertension, hyperlipidemia, gastroesophageal reflux disease, asthma, diabetes mellitus type 2 who presented initially at [facility] with NSTEMI and underwent a cardiac catheterization last week showing multivessel coronary artery disease. She is referred for evaluation by cardiothoracic surgery for CABG but patient did not want to proceed with CABG considering her age and other comorbidities. Considering this, she was brought back for PCI of the culprit lesion in the RCA with a planned staged PCI of the remaining vessel in the future. Procedure Data Procedure Date Date: 07/03/2022Start: 07:54End: 11:17 The procedure was explained in detail to the patient. Risks, complications and alternative treatments were reviewed. Written consent was obtained. Entry Locations - Retrograde Percutaneous access was performed through the Right Femoral artery. A 4 Fr sheath was inserted. This was exchanged for a 6 Fr sheath. Hemostasis was successfully obtained using Perclose ProGlide. - Antegrade Percutaneous access was performed through the Right Femoral vein. A 4 Fr sheath was inserted. This was exchanged for a 5 Fr sheath. The sheath was exchanged again for a 6 Fr sheath. Venous access obtained. Procedure Medications - Aspirin P.O. 81 mg. - Ticagrelor P.O. 90 mg. - Versed (Midazolam) I.V. 1 mg. - Fentanyl I.V. 50 mcg. - Lidocaine 2% S.C. Right groin 10 ml. - Versed (Midazolam) I.V. 1 mg. - Fentanyl I.V. 50 mcg. - Neosynephrine (Phenylephrine) I.V. 80 mcg. - Atropine I.V. bolus 0.5 mg. - Neosynephrine (Phenylephrine) I.V. 80 mcg. - Zofran I.V. 4 mg. - Neosynephrine (Phenylephrine) I.V. 80 mcg. - Adenosine I.C. 30 mcg. - Adenosine I.C. 120 mcg. - Adenosine I.C. 120 mcg. - Levophed (Norepinephrine 4mg/250 ml) I.V. 15 mcg/kg/min. - Heparin I.V. 3000 units. - Adenosine I.C. 30 mcg. - Adenosine I.C. 120 mcg. - Levophed (Norepinephrine 4mg/250 ml) I.V. 7.5 mcg/kg/min. - Versed (Midazolam) I.V. 0.5 mg. - Fentanyl I.V. 25 mcg. - Nitroglycerin I.C. 200 mcg. - Versed (Midazolam) I.V. 0.5 mg. - Fentanyl I.V. 25 mcg. - Nitroglycerin I.C. 200 mcg. - Versed (Midazolam) I.V. 0.5 mg. - Fentanyl I.V. 25 mcg. - Fentanyl I.V. 25 mcg. - Nitroglycerin I.C. 100 mcg. - Versed (Midazolam) I.V. 0.5 mg. - Lidocaine 2% S.C. Right groin 5 ml. - Fentanyl I.V. 25 mcg. Sedation: My intra-service moderate sedation time was: from 0817 to 1111. Refer to procedural log for detailed chronological information. Contrast Material - Omnipaque 150 ml Diagnostic Catheters - A6F JR 4.0 LAUNCHER GUIDING CATHETERwas used for: Left heart catheterization. - [id number] -TIP SWAN-YESSENIA CATHETERwas used for:Temporary ventricular pacing. - A6F JR 4.0 LAUNCHER GUIDING CATHETERwas used for: PCI. - A1.7Ej170sy [employer] CARAVEL MICROCATHETERwas used for: microcatheter support. - A1.0Lz275ne ASAQubell CARAVEL MICROCATHETERwas used for:wire exchange. - A3.3Bz746pd OPTICROSS 6 HD CORONARY IMAGING CATHETERwas used for: IVUS. Fluoroscopy Time: PCI: 38:07 minutes. Total: 38:07 minutes. Fluoroscopy Dose: PCI: 701 mGy. Total: 701 mGy. Dose Area Product:PCI: [id number] mGy/cm2. Total: 52255727 mGy/cm2. Dose Area Product:PCI: [id number] ??Gy/m2. Total: 6233863 ??Gy/m2. Procedure Narrative Patient is seen and examined in the Line Analyst. The description of the procedure and the risk and benefit including bleeding, radial spasm, contrast-induced nephropathy, UT, stroke, , angioplasty related dissection or perforation were mentioned to the patient. The patient understood and agreed to proceed with the procedure. Right common femoral artery access was obtained under ultrasonographic guidance and is 6 Jordanian sheath was placed. Right common femoral vein access was also obtained under ultrasonographic guidance and a 6 Jordanian sheath was placed. A temporary pacemaker was placed and position was confirmed. Diagnostic angiogram was performed using JR4 guide catheter. LVEDP was measured along with pullback gradient across aortic valve. Additional heparin was given and ACT was achieved more than 2/52. A [place] blue coronary wire was advanced into the distal LAD and with the help of microcatheter, Rotafloppy wire was placed. Then we performed rotational atherectomy using 1.5 mm bar. At this point, patient became hypotensive and bradycardic requiring some Levophed and multiple doses of Saurabh-Synephrine. The rotational atherectomy device was withdrawn and no reflow was noted. We gave multiple rounds of adenosine which improved the flow and blood pressure and heart rate improved. Then we performed shockwave atherectomy of the distal RCA lesion and also delivered some shockwave to the proximal lesion. Then we performed IVUS and measured the lesion length and size. We placed a 3.0 mm X50 millimeter [place] frontier ITZ in the distal RCA and postdilated with 3.5 mm X12 millimeter NC balloon. In the mid RCA, we placed a 3.5 mm X 26 mm Rah frontier ITZ and postdilated with 3.5 mm X12 millimeter NC balloon distally and 4.0 mm X 20 mm NC balloon proximally. We suspect that there is a dissection at the proximal RCA although could not see it very clearly on the IVUS. But because of our ongoing suspicion, we placed a 4.0 mm X12 millimeter Rah frontier ITZ in the proximal RCA covering the ostium and postdilated the stent with 4.0 mm X 12 mm NC balloon. The final angiographic result showed excellent stent expansion without any complication. At the end of the procedure, the sheath was removed and a Perclose device was deployed. The venous sheath was secured with suture with a plan to remove it later on when ACT is less than 180-second. Angiographic Findings Cardiac Arteries and Lesion Findings LMCA: Angiography not performed. LAD: Angiography not performed. LCx: Angiography not performed. RCA: Lesion in Dist RCA: Mid subsection.70% stenosis .The lesion was heavily calcified. Lesion in Mid RCA: Mid subsection.80% stenosis .The lesion was diffuse and heavily calcified.Culprit lesion. Lesion in Prox RCA: Ostial. Lesion in R PDA: Proximal subsection.70% stenosis .The lesion showed tandem arrangment. Hemodynamics Condition: Rest O2 Consumption: Estimated: 143.11Heart Rate: 62 bpm Pressures (mmHg) +-----+ + !Site !Pressure ! +-----+ + !LV !146/1 ,11 ! +-----+ + !AO !148/63 (98)! +-----+ + !LV !152/2 ,11 ! +-----+ + !AO !134/58 (88)! +-----+ + Valve Gradients and Areas +------+----+----+----+-----+----+------+ !Valve !Peak!Mean!Area!Index!Flow!Source! +------+----+----+----+-----+----+------+ !Aortic!4 ! ! ! ! ! ! +------+----+----+----+-----+----+------+ !Aortic!4 ! ! ! ! ! ! +------+----+----+----+-----+----+------+ Shunts Oxygen Values O2 Consumption 143.11 Interventional Procedure Cardiac lesions RCA: Lesion in Dist RCA: Mid subsection.70% stenosis .The lesion was heavily calcified. Devices used - .014 x190 STR North[employer] TechnologiesON BLUE GUIDEWIRE. Number of passes: 2. - 1.50mm ROTALINK LJ. Number of passes: 5. - 2.4vif11oz RX EUPHORA BALLOON. Diameter: 2.5 mm. Length: 15 mm. 3 inflation(s) to a max pressure of: 12 carline.
--- OUTSIDE RECORDS SUMMARY | 2023-11-03 00:28 | XMS_ITS | Continuity of Care Document ---
Author Organization [facility] Address [address] [place] [id number]- Care Team Providers Care Care Process Manager Name Role Phone Nichole MALDONADO, Rossana Mccartney Primary Care Physician Encounter [facility] Date(s): 02/04/19 - 02/04/[address] [address]- [facility] Encounter Diagnosis Diabetic hypoglycemia(Final) - 02/04/19 Discharge Disposition: A-D/C Home Attending Physician: Rancho Pratt MD Admitting Physician: Rancho Pratt MD Referring Physician: Not on Staff, Referring [...] 13:48:16 EDT Start Date: 05/22/18 Status: Ordered estradiol 0.1 mg/g vaginal cream 0 Refills, Maintenance, 05/22/18 13:48:34 EDT Start Date: 05/22/18 Status: Ordered fexofenadine 180 mg oral tablet 0 Refills, Maintenance, 05/22/18 13:48:01 EDT Start Date: 05/22/18 Status: Ordered Flonase 50 mcg/inh nasal spray 2 sprays, Nares, Both, Daily in AM, 0 Refills, Maintenance, 08/21/16 16:52:13, [place] Start Date: 08/21/16 Status: Ordered Flovent HFA [...] use to test BG 2x daily, DxE10.9 [facility]# [id number], 08/19/18 14:17:22 EDT, Compound Start Date: 08/19/18 [...] 13:48:28 EDT Start Date: 05/22/18 Status: Ordered Lantus Solostar Pen 100 units/mL [...] 05/06/21 Stop Date: 04/20/24 Status: Ordered Pen [place], 32 G x 4 mm BD Ultra [...] 16:12:20 EST, Inhaler, Route to Pharmacy Electronically, [id number], [facility]/pharmacy #[id number] Start Date: 01/07/18 Status: Ordered raNITIdine [...] Inform ant Asthma - PFTs 200 at [place] , mild obst defect - sees pulm(Confirmed) Active Diabetes - sees endocrinology(Confirmed) Active Diastolic dysfunction - echo in prior records 08/01/2016 EF 50-55%, grade 2 diastolic dysfunction, mild hypokinesis(Confirmed) Active Acid reflux(Confirmed) Active Hyperlipidemia(Confirmed) Active Hyperlipidemia LDL goal < 100(Confirmed) Active Hypertension(Confirmed) Active ROXIE (obstructive sleep apnea ) - sleep study [facility] 12/28/2008 - in old records(Confirmed) Active Results Radiology Reports * Exam Date Time Procedure Performing Provider Status 02/04/19 2:29 AM Chest 2 Views Frontal and Lat Karlene Nicole; Venus (Verified) Notes: (Chest 2 Views Frontal and Lat) Reason For Exam: Shortness of Breath, Fever;Other: RESULT: Chest 2 Views Frontal and Lat Chest 2 Views Frontal and Lat INDICATION: Abdominal pain and vomiting. COMPARISON: Multiple priors, most recent 04/04/2018. FINDINGS: LINES AND TUBES: None. LUNGS AND PLEURA: Low lung volumes with mild basilar atelectasis. Lungs are otherwise clear with no consolidation. No pleural effusion. No pneumothorax. HEART, MEDIASTINUM AND MICHELINE: Heart is normal in size. Normal mediastinal and hilar contour. BONES AND SOFT TISSUES: No acute osseous abnormality. Degenerative changes of the visualized spine and bilateral shoulders. IMPRESSION: No radiographic evidence of acute cardiopulmonary abnormality. I have personally reviewed the images and I agree with this report. WSN: [id number] Dictated By: Mike Gaspar MD Dictated Date/Time: 02/04/19 7:42 am Reviewed By: Carmen Powell MD Signed By: Carmen Powell MD Signed Date/Time: 02/04/19 7:47 am Transcribed By: BEAR Transcribed Date/Time: 02/04/19 2:41 am Vital Signs Most recent to oldest [Reference Range]: 1 2 Oxygen Saturation [94-100 %] 98 % (02/04/19 3:04 AM) 100 % (02/04/19 1:21 AM) Pulse Rate [55-90 bpm] 85 bpm (02/04/19 3:04 AM) 85 bpm (02/04/19 1:21 AM) Blood Pressure [90-138/55-84 mm Hg] 146/ 65mm Hg *H* (02/04/19 3:04 AM) 137/68mm Hg (02/04/19 1:21 AM) Respiratory Rate [16-30 br/min] 16 br/mi n (02/04/19 3:04 AM) 17 br/min (02/04/19 1:21 AM) Temperature [96.8-100.4 DegF] 97.5 DegF (02/04/19 1:21 AM) Temperature Route Oral (02/04/19 1:21 AM) Social History Social History Type Response Smoking Status Never smoker entered on: 07/05/16 Sex
--- OUTSIDE RECORDS SUMMARY | 2023-11-03 00:28 | XMS_ITS | Continuity of Care Document ---
Author Organization [facility] Address [address] [place] [address]- Care Team Providers Care Physician Primary Care Sports Medicine Name Role Phone Nichole MALDONADO, Rossana Mccartney Primary Care Physician Encounter [facility] Date(s): 05/19/19 - 05/29/19 [facility] [address] [place] [address]- [facility] Attending Physician: Admtr, [id number] Admitting Physician: Admtr, [id number] Referring Physician: Admtr, [id number] Allergies, Adverse Reactions, [...] in AM, 0 Refills, Maintenance, 08/21/16 16:52:13, [place] Start Date: 08/21/16 Status: Ordered Flovent HFA 220 mcg/inh inhalation aerosol 2 puffs, Inhalation, 2 times a day, rinse mouth and throat after use, # 1 each, 11 Refills, Maintenance, 02/27/18 15:17:00 EST, ICD Code J45.30 Start Date: 02/27/18 Status: Ordered FreeStyle Aristides reader FreeStyle Aristides reader, See Instructions, # 1 each, Refills 0, Tot. Refills 0, Maintenance, Use to read Aristidse Sensor 5x daily, can also use to test BG 2x daily, DxE10.9 [facility]# [id number], 08/19/18 14:17:22 EDT, Compound Start Date: 08/19/18 [...] x day DX E11.9 90 day supply, 04/14/19 15:23:00 EST, Compound, 150, cm, 02/14/19 9:21:00 EST, Height, 67.5, kg, 08/26/18 12:02:00 EDT, Dry Weight Start Date: 04/14/19 Status: Ordered Freestyle Lite Monitor See Instructions, [...] 3 Refills, Maintenance, 02/14/19 9:46:00 EST, Tablet, [facility]/pharmacy #[id number], 150, cm, 02/14/19 9:21:00 EST, [...] 05/06/21 Stop Date: 04/20/24 Status: Ordered Pen [place], 32 G x 4 mm BD Ultra [...] 16:12:20 EST, Inhaler, Route to Pharmacy Electronically, [id number], [facility]/pharmacy #[id number] Start Date: 01/07/18 Status: Ordered [...] Inform ant Asthma - PFTs 200 at [place] , mild obst defect - sees pulm(Confirmed) Active Diabetes - sees endocrinology(Confirmed) Active Diastolic dysfunction - echo in prior records 08/01/2016 EF 50-55%, grade 2 diastolic dysfunction, mild hypokinesis(Confirmed) Active Acid reflux(Confirmed) Active Hyperlipidemia(Confirmed) Active Hyperlipidemia LDL goal < 100(Confirmed) Active Hypertension(Confirmed) Active ROXIE (obstructive sleep apnea ) - sleep study [place] 12/28/2008 - in old records(Confirmed) Active Social History Social History Type Response Smoking Status Never smoker entered on: 07/05/16 Sex
--- OUTSIDE RECORDS SUMMARY | 2023-11-03 00:28 | XMS_ITS | Continuity of Care Document ---
Author Organization [facility] Address [address] [place] [address]- Care Team Providers Care Travel Nurse Name Role Phone Chava Rosen MD, Rossana Duffy Primary Care Physician Encounter [facility] [place] Date(s): 08/02/20 - 09/01/20 [facility] [address] [place] [id number] Allergies, Adverse Reactions, Alerts [...] in AM, 0 Refills, Maintenance, 08/21/16 16:52:13, [place] Start Date: 08/21/16 Status: Ordered Flovent HFA [...] daily, DxE10.9 [facility]# [id number], 08/19/18 14:17:22 EDT, Compound Start Date: 08/19/18 [...] EST Start Date: 01/07/18 Status: Ordered Pen [place], 32 G x 4 mm BD Ultra [...] 16:12:20 EST, Inhaler, Route to Pharmacy Electronically, [id number], [facility]/pharmacy #[id number] Start Date: 01/07/18 [...] ant Asthma - PFTs 200 at [place] , mild obst defect - sees pulm(Confirmed) Active Diabetes - sees endocrinology(Confirmed) Active Diastolic dysfunction - echo in prior records 08/01/2016 EF 50-55%, grade 2 diastolic dysfunction, mild hypokinesis(Confirmed) Active Acid reflux(Confirmed) Active Hyperlipidemia(Confirmed) Active Hyperlipidemia LDL goal < 100(Confirmed) Active Hypertension(Confirmed) Active ROXIE (obstructive sleep apnea ) - sleep study [facility] 12/28/2008 - in old records(Confirmed) Active Social History Social History Type Response Smoking Status Never smoker entered on: 07/05/16 Sex
--- OUTSIDE RECORDS SUMMARY | 2023-11-03 00:28 | XMS_ITS | Continuity of Care Document ---
Author Organization [facility] Address [address] [place] [address]- Care Team Providers Care Family Services Specialist Name Role Phone Rossana Varela MD Primary Care Physician Encounter [facility] Date(s): 02/25/19 - 06/25/19 [facility] [address] [place] [id number]- [facility] Attending Physician: Autumn Day MD Admitting Physician: Autumn Dya MD Referring Physician: Rossana Varela MD Allergies, [...] in AM, 0 Refills, Maintenance, 08/21/16 16:52:13, [place] Start Date: 08/21/16 Status: Ordered Flovent HFA [...] use to test BG 2x daily, DxE10.9 [facility]# [id number], 08/19/18 14:17:22 EDT, Compound Start Date: 08/19/18 [...] Maintenance, 02/14/19 9:46:00 EST, Tablet, [facility]/pharmacy #[id number], 150, cm, 02/14/19 9:21:00 EST, Height, [...] 05/06/21 Stop Date: 04/20/24 Status: Ordered Pen [place], 32 G x 4 mm BD Ultra [...] 16:12:20 EST, Inhaler, Route to Pharmacy Electronically, [id number], [facility]/pharmacy #[id number] Start Date: 01/07/18 Status: Ordered raNITIdine [...] Inform ant Asthma - PFTs 200 at [place] , mild obst defect - sees pulm(Confirmed) [...]
--- OUTSIDE RECORDS SUMMARY | 2023-11-03 00:28 | XMS_ITS | Continuity of Care Document ---
Author Organization [facility] Address [address] [place] [address]- Care Team Providers Care Mortgage Loan Coordinator Name Role Phone Stephen MALDONADO, Liset Primary Care Physician Encounter [facility] Date(s): 06/09/21 - 08/18/[address] [address] Attending Physician: Ute Butler MD Admitting Physician: Ute Butler MD Allergies, Adverse Reactions, Alerts No Known [...] Gm, 11 Refills, Maintenance, 12/15/20 10:14:00 EDT, [facility]/pharmacy #[id number], Partial fill upon patient request if the [...] in AM, 0 Refills, Maintenance, 08/21/16 16:52:13, [place] Start Date: 08/21/16 Status: Ordered Flovent HFA [...] to test BG 2x daily, DxE10.[address] [facility]# [id number], 08/19/18 14:17:22 EDT, Compound Start Date: 08/19/18 [...] 100 mg oral tablet See Instructions, [facility] [place], # 90 tablet, 4 Refills, [id number], 150, cm, 07/11/21 9:02:00 EDT, Height, 67.2, [...] tablet, 11 Refills, Maintenance, 12/15/20 10:15:00 EDT, [facility]/pharmacy #[id number], Partial fill upon patient request if the prescription is for a schedule II opioid drug., 150, cm, 07/20/20 8:34:00 EDT, Height Start Date: 12/15/20 Status: Ordered Multivitamin By Mouth, Daily, 0 Refills, Maintenance, 01/07/18 15:37:22 EST Start Date: 01/07/18 Status: Ordered Pen [place], 32 G x 4 mm BD Ultra [...] 16:12:20 EST, Inhaler, Route to Pharmacy Electronically, [id number], [facility]/pharmacy #[id number] Start Date: 01/07/18 [...] Inform ant Asthma - PFTs 200 at [place] , mild obst defect - sees pulm(Confirmed) [...]
--- OUTSIDE RECORDS SUMMARY | 2023-11-03 00:28 | XMS_ITS | Continuity of Care Document ---
Author Organization [facility] Address [address] [place] [id number]- Care Team Providers Care Phd Intern Name Role Phone Chava Rosen MD, Rosalinda Primary Care Physician [phone] Encounter [facility] Date(s): 06/28/20 - 07/28/20 [facility] [address] [place] [address] Allergies, Adverse Reactions, Alerts Substance Reaction [...] in AM, 0 Refills, Maintenance, 08/21/16 16:52:13, [place] Start Date: 08/21/16 Status: Ordered Flovent HFA [...] test BG 2x daily, DxE10.9 [facility]# [id number], 08/19/18 14:17:22 EDT, Compound Start Date: 08/19/18 [...] 3 Refills, Maintenance, 07/20/20 9:06:00 EDT, Tablet, [facility]/pharmacy #[id number], 150, cm, 07/20/20 8:34:00 EDT, Height, 67.5, kg, 08/26/18 12:02:00 EDT, Dry Weight Start Date: 07/20/20 Stop Date: 07/15/21 Status: Ordered Lantus Solostar Pen 100 units/mL subcutaneous solution See Instructions, Take 35 units daily at night. E11.65, # 30 mL, 5 Refills, Maintenance, 07/20/20 9:05:00 EDT, Solution, [facility]/pharmacy #[id number], 150, cm, 07/20/20 [...] EST Start Date: 01/07/18 Status: Ordered Pen [place], 32 G x 4 mm BD Ultra [...] 16:12:20 EST, Inhaler, Route to Pharmacy Electronically, [id number], [facility]/pharmacy #[id number] Start Date: 01/07/18 [...] Inform ant Asthma - PFTs 200 at [place] , mild obst defect - sees pulm(Confirmed) Active Diabetes - sees endocrinology(Confirmed) Active Diastolic dysfunction - echo in prior records 08/01/2016 EF 50-55%, grade 2 diastolic dysfunction, mild hypokinesis(Confirmed) Active Acid reflux(Confirmed) Active Hyperlipidemia(Confirmed) Active Hyperlipidemia LDL goal < 100(Confirmed) Active Hypertension(Confirmed) Active ROXIE (obstructive sleep apnea ) - sleep study [facility] 12/28/2008 - in old records(Confirmed) Active Social History Social History Type Response Smoking Status Never smoker entered on: 07/05/16 Sex
--- OUTSIDE RECORDS SUMMARY | 2023-11-03 00:28 | XMS_ITS | Continuity of Care Document ---
Author Organization [facility] Address [address] [place] [address]- Care Team Providers Care Space Controller Name Role Phone Rossana Varela MD Primary Care Physician Encounter [facility] Date(s): 04/14/19 - 06/18/19 [facility] [address] [place] [address] [facility] Attending Physician: [...] in AM, 0 Refills, Maintenance, 08/21/16 16:52:13, [place] Start Date: 08/21/16 Status: Ordered Flovent HFA [...] use to test BG 2x daily, DxE10.9 [facility]# [id number], 08/19/18 14:17:22 EDT, Compound Start Date: 08/19/18 [...] 05/06/21 Stop Date: 04/20/24 Status: Ordered Pen [place], 32 G x 4 mm BD Ultra [...] 16:12:20 EST, Inhaler, Route to Pharmacy Electronically, [id number], [facility]/pharmacy #[id number] Start [...] Inform ant Asthma - PFTs 200 at [place] , mild obst defect - sees pulm(Confirmed) [...]
--- OUTSIDE RECORDS SUMMARY | 2023-11-03 00:29 | XMS_ITS | Continuity of Care Document ---
Author Organization [facility] Address [address] [place] [address]- Care Team Providers Care Electric Motor Repairman Name Role Phone Chava Rosen MD, Romina Duffy Primary Care Physician Encounter [facility] Date(s): 02/02/20 - 03/03/20 [facility] [address] [place] [id number] Allergies, Adverse Reactions, Alerts Substance [...] in AM, 0 Refills, Maintenance, 08/21/16 16:52:13, [place] Start Date: 08/21/16 Status: Ordered Flovent HFA [...] use to test BG 2x daily, 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 Start Date: 01/29/20 Stop Date: 10/25/20 Status: Ordered hydrALAZINE 25 mg oral tablet Refills 0, Maintenance, 05/22/18 13:48:28 EDT Start Date: 05/22/18 Status: Ordered Januvia 100 mg oral tablet 1 tablet = 100 mg, By Mouth, Daily, # 90 tablet, 3 Refills, Maintenance, 02/09/20 9:46:00 EST, Tablet, [facility]/pharmacy #[id number], 150, cm, 02/14/19 9:21:00 EST, Height, 67.5, kg, 08/26/18 12:02:00 EDT, Dry Weight Start Date: 02/09/20 Stop Date: 02/03/21 Status: Ordered Lantus Solostar Pen 100 units/mL subcutaneous solution = 30 units, Subcutaneous Injection, Daily, Take 30 units daily at night. E11.65, # 50 mL, 5 Refills, Maintenance, 02/08/20 15:57:00 EST, Solution, [facility]/pharmacy #[id number], 150, cm, 02/14/19 9:21:00 EST, [...] 05/06/21 Stop Date: 04/20/24 Status: Ordered Pen [place], 32 G x 4 mm BD Ultra [...] 16:12:20 EST, Inhaler, Route to Pharmacy Electronically, [id number], [facility]/pharmacy #[id number] Start Date: 01/07/18 Status: Ordered [...] Inform ant Asthma - PFTs 200 at [place] , mild obst defect - sees pulm(Confirmed) Active Diabetes - sees endocrinology(Confirmed) Active Diastolic dysfunction - echo in prior records 08/01/2016 EF 50-55%, grade 2 diastolic dysfunction, mild hypokinesis(Confirmed) Active Acid reflux(Confirmed) Active Hyperlipidemia(Confirmed) Active Hyperlipidemia LDL goal < 100(Confirmed) Active Hypertension(Confirmed) Active ROXIE (obstructive sleep apnea ) - sleep study [facility] 12/28/2008 - in old records(Confirmed) Active Social History Social History Type Response Smoking Status Never smoker entered on: 07/05/16 Sex
--- OUTSIDE RECORDS SUMMARY | 2023-11-03 00:29 | XMS_ITS | Continuity of Care Document ---
Author Organization [facility] Address [address] [place] [address]- Care Team Providers Care Tack Cleaner Name Role Phone Chava Rosen MD, Rossana Duffy Primary Care Physician Encounter [facility] Date(s): 07/20/20 - 09/04/[address] [address] Attending Physician: Tommie GARCIA, Aida Mahmood Admitting Physician: Tommie SHOE DYER, Aida Mahmood Referring Physician: Tommie SHOE DYER, Aida Mahmood Allergies, Adverse Reactions, Alerts Substance Reaction Severity [...] in AM, 0 Refills, Maintenance, 08/21/16 16:52:13, [place] Start Date: 08/21/16 Status: Ordered Flovent HFA [...] to test BG 2x daily, DxE10.9 [facility]# [id number], 08/19/18 14:17:22 EDT, Compound Start Date: 08/19/18 [...] 3 Refills, Maintenance, 07/20/20 9:06:00 EDT, Tablet, [facility]/pharmacy #[id number], 150, cm, 07/20/20 8:34:00 EDT, Height, 67.5, kg, 08/26/18 12:02:00 EDT, Dry Weight Start Date: 07/20/20 Stop Date: 07/15/21 Status: Ordered Lantus Solostar Pen 100 units/mL subcutaneous solution See Instructions, Take 35 units daily at night. E11.65, # 30 mL, 5 Refills, Maintenance, 07/20/20 9:05:00 EDT, Solution, [facility]/pharmacy #[id number], 150, cm, 07/20/20 8:34:00 EDT, Height, [...] EST Start Date: 01/07/18 Status: Ordered Pen [place], 32 G x 4 mm BD Ultra [...] 16:12:20 EST, Inhaler, Route to Pharmacy Electronically, [id number], [facility]/pharmacy #[id number] Start Date: 01/07/18 Status: Ordered raNITIdine [...] Inform ant Asthma - PFTs 200 at [place] , mild obst defect - sees pulm(Confirmed) Active Diabetes - sees endocrinology(Confirmed) Active Diastolic dysfunction - echo in prior records 08/01/2016 EF 50-55%, grade 2 diastolic dysfunction, mild hypokinesis(Confirmed) Active Acid reflux(Confirmed) Active Hyperlipidemia(Confirmed) Active Hyperlipidemia LDL goal < 100(Confirmed) Active Hypertension(Confirmed) Active ROXIE (obstructive sleep apnea ) - sleep study [facility] 12/28/2008 - in old records(Confirmed) Active Social History Social History Type Response Smoking Status Never smoker entered on: 07/05/16 Sex
[2023-11-03 01:15] LABS: Hematocrit 39.7 % (37.0-47.0); Hemoglobin 13.8 g/dl (12.0-16.0); Mean Corpuscular HGB Conc 34.8 g/dl (31.0-35.0); Mean Corpuscular Hemoglobin 31.2 pg (27.0-33.0); Mean Corpuscular Volume 89.6 fL (80.0-98.0); Mean Platelet Volume 10.8 fL (9.4-12.3); Platelet Count 177 X10*3/uL (160-400); Red Blood Count 4.43 X10*6/uL (4.20-5.50); White Blood Count 7.1 X10*3/uL (4.8-10.8)
[2023-11-03 01:28] LABS: Alanine Aminotransferase 20 U/L (0-31); Alkaline Phosphatase 52 U/L (39-117); Anion Gap 13 (12-20); Aspartate Amino Transferase 21 U/L (5-31); Bilirubin Total 0.4 mg/dL (0.0-1.0); Blood Urea Nitrogen 21 mg/dL (9-16); Calcium 9.8 mg/dL (8.4-10.2); Carbon Dioxide 25 mmol/L (22-29); Chloride 106 mmol/L (96-108); Estimated Glomerular Filt Rate > 60; Glucose Random 149 mg/dL (60-115); Lipase 9 U/L (8-78); Potassium 4.7 mmol/L (3.3-5.1); Sodium 139 mmol/L (135-145)
--- NOTE | 2023-11-03 01:40 | ED.GENADULT ---
HPI - General Adult General Chief complaint: General Medical Stated complaint: d/n BP 203/113 & 186/79 CAOx4 Time Seen by Provider: 11/03/23 01:40 History of Present Illness ED Provider: Scot DAVIDSON narrative: The patient is a 77-year-old female with a history of type 2 diabetes, hypertension, and elevated cholesterol who also has a history of an ischemic cardiomyopathy. She says that she felt fine during the day on Sunday. At around 23:00 she felt and with a headache like something was wrong. She says that she felt drunk and she had some nausea and a mild headache. She checked her blood pressure and her blood pressure was elevated. She was very concerned and called 911. While waiting to be seen her symptoms have resolved. No fever, sweats, chills. No cough or sputum. The patient was feeling better in the emergency department. The patient is primarily Nauruan-speaking. She was here with a family member. The patient was interviewed using an electronic director sales and trade marketing device. Related Data Home Medications ?Medication ?Instructions ?Recorded ?Confirmed lancets (OneTouch UltraSoft #100 ea 01/06/20 10/10/23 Lancets) pen needle, diabetic 32 gauge x #50 ea 08/17/20 10/10/23 simethicone 125 mg capsule (Gas 0 mg PO 11/26/20 10/10/23 Relief Extra Strength) spironolactone 25 mg tablet 25 mg PO DAILY 11/26/20 10/10/23 latanoprost 0.005 % eye drops 1 drp ophthalmic (eye) BEDTIME 07/26/22 10/10/23 pioglitazone 45 mg tablet 45 mg PO DAILY 11/21/22 10/10/23 carvedilol 3.125 mg tablet 3.125 mg PO BID 06/18/23 10/10/23 sertraline 25 mg tablet 50 mg PO DAILY 06/18/23 10/10/23 sertraline 50 mg tablet 50 mg PO DAILY 06/18/23 10/10/23 hydrocortisone 2.5 % topical topical 08/16/23 10/10/23 ointment ipratropium bromide 21 mcg (0.03 intranasal 08/16/23 10/10/23 %) nasal spray insulin glargine 100 unit/mL (3 20 unit subcut DAILY 10/10/23 10/10/23 mL) subcutaneous pen (Lantus Solostar U-100 Insulin) rosuvastatin 40 mg tablet 40 mg PO DAILY 10/10/23 10/10/23 Previous Rx's ?Medication ?Instructions ?Recorded blood sugar diagnostic (OneTouch #100 ea 01/07/20 Verio test strips) blood-glucose meter (OneTouch #1 ea 01/07/20 Verio Meter) mirabegron 25 mg tablet,extended 25 mg PO DAILY 30 days #30 tabs 10/28/20 release 24 hr (Myrbetriq) inhalational spacing device #1 ea 01/25/21 (Aerochamber MV spacer) albuterol sulfate 90 mcg/actuation 2 puff PO Q4H PRN for wheezing 30 11/21/22 aerosol inhaler (Ventolin HFA) days #18 ea budesonide 32 mcg/actuation nasal 2 spray intranasal DAILY 30 days 11/21/22 spray #8.43 mL fluticasone propionate 115 2 puff inhalation Q12H 30 days #12 11/21/22 mcg-salmeterol 21 mcg/actuation grams HFA inhaler (Advair HFA) ipratropium 0.5 mg-albuterol 3 mg 3 ml inhalation Q6H PRN for 03/30/23 (2.5 mg base)/3 mL nebulization wheezing #180 mL soln budesonide 0.5 mg/2 mL suspension 0.5 mg (2 mL) inhalation BID 30 05/21/23 for nebulization days #120 mL acetaminophen 500 mg tablet 500 mg PO Q6H PRN fever or pain 08/10/23 #14 tabs benzonatate 200 mg capsule 200 mg PO TID PRN cough #10 caps 08/16/23 sennosides 8.6 mg-docusate sodium 2 tab-cap (2 x 8.6-50 mg) PO 08/16/23 50 mg tablet (Senna with Docusate BEDTIME PRN constipation 60 days Sodium) #120 tabs clopidogrel 75 mg tablet (Plavix) 75 mg PO DAILY #90 tabs 10/10/23 evolocumab 140 mg/mL subcutaneous 140 mg subcut Q2W #2 mL 10/11/23 pen injector (Repvíctor [place]) Allergies Allergy/AdvReac Type Severity Reaction Status Date / Time fluticasone [Flovent HFA] Allergy Unknown lip Verified 11/03/23 00:02 swelling lisinopril Allergy Itching Verified 11/03/23 00:02 umeclidinium AdvReac Intermediate Chest Pain Verified 11/03/23 00:02 [From Incruse Ellipta] empagliflozin [Jardiance] AdvReac Unknown vaginal Verified 11/03/23 00:02 itch metformin AdvReac Unknown stomach Verified 11/03/23 00:02 pain sitagliptin [Januvia] AdvReac Unknown stomach Verified 11/03/23 00:02 pain acetaminophen [From Percocet] AdvReac Nausea and Verified 11/03/23 00:02 Vomiting hydrocodone [From Vicodin] AdvReac Nausea and Verified 11/03/23 00:02 Vomiting ibuprofen [From Motrin] AdvReac Stomach Verified 11/03/23 00:02 Upset oxycodone [From Percocet] AdvReac Nausea and Verified 11/03/23 00:02 Vomiting Review of Systems Review of Systems: Yes all other systems are reviewed and are negative [facility] Past Medical History Medical History Dysphagia Tracheobronchomalacia ROXIE (obstructive sleep apnea) Essential hypertension Atherosclerotic cardiovascular disease Urinary incontinence Obese Dyslipidemia Anxiety and depression Gastric pain Sinusitis Chronic allergic rhinitis Asthma Cough Cough Diabetes mellitus Fibromyalgia Pulmonary nodules Surgical History H/O heart artery stent Hx of esophagogastroduodenoscopy History of bronchoscopy Hx of colonoscopy H/O left knee surgery H/O breast biopsy H/O: hysterectomy Family History Family History Father Hypertension Mother Hypertension Diabetes Daughter Diabetes Brother No problems noted. Social History Social History Household Members: Children Alcohol intake: never Patient Tobacco Use Status: Never used Tobacco Smoked in Last 30 Days: No Second Hand Smoke Exposure: Yes Use of substances other than those prescribed or required for medical reasons: No Any prior treatment program specific to substance use: No Advance Directives: No Advance Directives Information Provided: Yes Do you have a plan to hurt others: No Plan Physical Exam ED Vital Signs: Vital Signs - 24 hr 11/02/23 23:48 11/02/23 23:52 Temperature 97.5 F Pulse Rate 58 58 Respiratory Rate 17 18 Blood Pressure 153/53 H 153/53 H Pulse Oximetry 97 98 Oxygen Delivery Method Room Air Room Air BMI result Body Mass Index 34.5 Const Other: The patient is a somewhat frail looking 77-year-old who was awake and alert and does not seem in acute distress. [facility] Head: Yes normal to inspection Face and sinus: Yes normal facial exam and Yes face symmetric Mouth: Normal oral and palatal mucosa present and moist mucous membranes Throat: Yes posterior oropharynx normal Eyes General: appearance normal, both eyes and all related structures Conjunctivae: conjunctivae normal Sclerae: sclerae normal Neck Neck: Yes normal visual inspection, Yes full ROM and Yes no JVD Resp Effort & Inspection: normal respiratory effort Auscultation: clear to auscultation bilaterally Cardio Rate: regular rate Rhythm: regular rhythm Heart sounds: S1 normal heart sound present and S2 normal heart sound present GI Other: Abdomen is soft nontender Skin Other: skin is dry and unremarkable. Neuro Other: The patient is awake and alert, oriented and appropriate. Mental status is normal. Cranial nerves are grossly intact. She moves her extremities normally. She has a steady gait. Extrem Other: No calf swelling or tenderness. No asymmetry. No peripheral edema. Good perfusion to the feet. Medical Decision Making Medical Decision Making [facility] Narrative: The patient is a 77-year-old female who reports that she was lying in bed looking at her cellphone when she fell abruptly dizzy and nauseated. She describes it as though she felt she was drawn. She apparently had nausea and vomiting. She checked her blood pressure which was elevated. She called an ambulance and was brought to the hospital. Here in the emergency room the patient seems asymptomatic and looks well. She has no abnormal neurological findings. She is steady on her feet. Labs are unremarkable including 2 negative troponins. Her blood pressures are mildly elevated but not severely so. She looks well and seems appropriate for discharge. Lab Data 11/03/23 01:09 11/03/23 01:09 Labs: Lab Results 11/03/23 11/03/23 Range/Units 01:09 02:47 WBC 7.1 (4.8-10.8) X10*3/uL RBC 4.43 (4.20-5.50) X10*6/uL Hgb 13.8 (12.0-16.0) g/dl Hct 39.7 (37.0-47.0) % MCV 89.6 (80.0-98.0) fL MCH 31.2 (27.0-33.0) pg MCHC 34.8 (31.0-35.0) g/dl RDW 13.0 (11.0-16.0) % Plt Count 177 (160-400) X10*3/uL MPV 10.8 (9.4-12.3) fL Absolute Nucleated RBC 0.000 (0.0-0.012) X10*3/uL Nucleated RBC % (auto) 0.0 (0.0-0.2) /100WBC Sodium 139 (135-145) mmol/L Potassium 4.7 (3.3-5.1) mmol/L Chloride 106 (96-108) mmol/L Carbon Dioxide 25 (22-29) mmol/L Anion Gap 13 (12-20) BUN 21 H (9-16) mg/dL Creatinine 0.88 (0.5-1.4) mg/dL Estim Creat Clear Calc 44.0 Estimated GFR > 60 Random Glucose 149 H (60-115) mg/dL Calcium 9.8 (8.4-10.2) mg/dL Magnesium 2.0 (1.6-2.6) mg/dL Total Bilirubin 0.4 (0.0-1.0) mg/dL AST 21 (5-31) U/L ALT 20 (0-31) U/L Alkaline Phosphatase 52 (39-117) U/L Troponin I High Sens 14.0 D 13.6 (<3.5-17.0) ng/L C-Reactive Protein 0.69 H (< or = 0.50) mg/dL Total Protein 7.0 (6.5-8.0) g/dL Albumin 4.0 (3.5-5.0) g/dL Lipase 9 (8-78) U/L Independent Interpretation I performed an independent interpretation of an: EKG Interpretation: EKG at 00:49 shows sinus bradycardia at 52 beats per minute. No acute ischemic changes. No significant change from previous EKG. Discharge Plan Discharge Clinical Impression: Dizziness, Nausea, Headache Patient Disposition: Home, Self-Care Additional Instructions: Your testing in the emergency room today is reassuring. Please continue your regular medications at home. Please follow up soon with your regular doctor to discuss this episode further. Return to the emergency room if significantly worse Prescriptions: No Action (DME) lancets [OneTouch UltraSoft Lancets] Misc See Rx Instructions .ROUTE .MEDSUPPLY Qty: 100 Rx Instructions: As directed (DME) blood-glucose meter [OneTouch Verio Meter] Misc See Rx Instructions .ROUTE .MEDSUPPLY Qty: 1 0RF Rx Instructions: As directed (DME) OneTouch Verio test strips Strip See Rx Instructions .ROUTE .MEDSUPPLY Qty: 100 0RF Rx Instructions: As directed Myrbetriq 25 mg tablet extended release 24 hr 25 mg PO DAILY 30 Days Qty: 30 1RF (DME) Aerochamber MV Spacer See Rx Instructions .ROUTE .MEDSUPPLY Qty: 1 0RF Rx Instructions: As directed ipratropium-albuterol 0.5 mg-3 mg(2.5 mg base)/3 mL solution for nebulization 3 ml inhalation Q6H PRN (Reason: for wheezing) Qty: 180 2RF Repatha SureClick 140 mg/mL pen injector 140 mg subcut Q2W Qty: 2 2RF acetaminophen 500 mg tablet 500 mg PO Q6H PRN (Reason: fever or pain) Qty: 14 0RF benzonatate 200 mg capsule 200 mg PO TID PRN (Reason: cough) Qty: 10 0RF simethicone [Gas Relief Extra Strength] 125 mg capsule 0 mg PO spironolactone 25 mg tablet 25 mg PO DAILY sertraline 25 mg tablet 50 mg PO DAILY (DME) pen needle, diabetic 32 gauge x 5/32 needle See Rx Instructions .ROUTE .MEDSUPPLY Qty: 50 Rx Instructions: As directed pioglitazone 45 mg tablet 45 mg PO DAILY fluticasone propion-salmeterol [Advair HFA] 115-21 mcg/actuation HFA aerosol inhaler 2 puff inhalation Q12H 30 Days Qty: 12 11RF albuterol sulfate [Ventolin HFA] 90 mcg/actuation HFA aerosol inhaler 2 puff PO Q4H PRN (Reason: for wheezing) 30 Days Qty: 18 6RF budesonide 32 mcg/actuation spray,non-aerosol 2 spray intranasal DAILY 30 Days Qty: 8.43 7RF Rx Instructions: administer into each nostril budesonide 0.5 mg/2 mL suspension for nebulization 0.5 mg inhalation BID 30 Days Qty: 120 11RF Lantus Solostar U-100 Insulin 100 unit/mL (3 mL) insulin pen 20 unit subcut DAILY rosuvastatin 40 mg tablet 40 mg PO DAILY clopidogrel [Plavix] 75 mg tablet 75 mg PO DAILY Qty: 90 3RF latanoprost 0.005 % drops 1 drp ophthalmic (eye) BEDTIME carvedilol 3.125 mg tablet 3.125 mg PO BID sertraline 50 mg tablet 50 mg PO DAILY ipratropium bromide 21 mcg (0.03 %) spray,non-aerosol intranasal hydrocortisone 2.5 % ointment topical sennosides-docusate sodium [Senna with Docusate Sodium] 8.6-50 mg tablet 2 tab-cap PO BEDTIME PRN (Reason: constipation) 60 Days Qty: 120 2RF Rx Instructions: Please take every other day at bedtime Referrals: Liset Mitchell MD [Physician] - Interventions: ED Discharge Assessment Last Done: 11/03/23 04:05 Discharge Date/Time: 11/03/23 03:55 Print Language: Nauruan
[2023-11-03 01:55] LABS: C Reactive Protein 0.69 mg/dL (< or = 0.50)
[2023-11-03 03:12] LABS: Troponin-I High Sensitivity 13.6 ng/L (<3.5-17.0)
[2023-11-03 03:55] VITALS: BP 170/61; PULSE 73; RESP 18; TEMP 36.6; O2SAT 98
[2023-11-03 04:05] VITALS: BP 170/61; PULSE 73; RESP 18; TEMP 36.6; O2SAT 98
== END 2023-11-03 03:55 | disposition home or self-care (01) ==
PROVIDERS: Emergency Provider Emergency Medicine
DX: R42 Dizziness and giddiness (principal); R51.9 Headache, unspecified; R11.0 Nausea; E11.9 Type 2 diabetes mellitus without complications; I10 Essential (primary) hypertension; E78.5 Hyperlipidemia, unspecified; J45.909 Unspecified asthma, uncomplicated; Z79.4 Long term (current) use of insulin; Z79.899 Other long term (current) drug therapy; Z79.02 Long term (current) use of antithrombotics/antiplatelets
CPT/HCPCS: 36415; 80053; 83690; 83735; 84484; 85027; 86140; 93005; 99283; 99284

== ENCOUNTER 2023-11-13 10:23 | Outpatient (AMB) | payer OTHER, SELFPAY ==
--- NOTE | 2023-11-13 10:26 | MHC.OFFVIS ---
Vital Signs 11/13/23 10:32 Height 4 ft 9 in Weight 148 lb BMI 32.0 BP 154/79 H Blood Pressure Location Lt brachial Position Sitting Pulse 92 Intake Visit Reasons: abdominal pain Intake Note: Patient follow up for abdominal pain. Patient cc: abdominal pain,/bloating, acid reflex with burning sensation, and constipation. Veneer Sample Maker Required: Yes Accompanied by: Family/Other Allergies fluticasone (Flovent HFA) Allergy (Unknown, Verified 04/14/25 16:58) lip swelling lisinopril Allergy (Verified 04/14/25 16:58) Itching evolocumab (From Repatha SureClick) Adverse Reaction (Intermediate, Verified 04/14/25 16:58) Hypertension umeclidinium (From Incruse Ellipta) Adverse Reaction (Intermediate, Verified 04/14/25 16:58) Chest Pain empagliflozin (Jardiance) Adverse Reaction (Unknown, Verified 04/14/25 16:58) vaginal itch metformin Adverse Reaction (Unknown, Verified 04/14/25 16:58) stomach pain sitagliptin (Januvia) Adverse Reaction (Unknown, Verified 04/14/25 16:58) stomach pain acetaminophen (From Percocet) Adverse Reaction (Verified 04/14/25 16:58) Nausea and Vomiting hydrocodone (From Vicodin) Adverse Reaction (Verified 04/14/25 16:58) Nausea and Vomiting ibuprofen (From Motrin) Adverse Reaction (Verified 04/14/25 16:58) Stomach Upset oxycodone (From Percocet) Adverse Reaction (Verified 04/14/25 16:58) Nausea and Vomiting Medication List - Last Reconciled 11/13/23 by Luciana Gutierrez MD acetaminophen 500 mg PO Q6H PRN albuterol sulfate 90 mcg/actuation (Ventolin HFA) 2 puffs PO Q4H PRN 30 days benzonatate 200 mg PO TID PRN blood sugar diagnostic (OneTouch Verio test strips) As directed blood-glucose meter (OneTouch Verio Meter) As directed budesonide 32 mcg/actuation 2 sprays intranasal DAILY 30 days budesonide 0.5 mg (2 mL) inhalation BID 30 days carvedilol 3.125 mg PO BID clopidogrel (Plavix) 75 mg PO DAILY evolocumab (Repatha SureClick) 140 mg subcut Q2W fluticasone propion-salmeterol 115-21 mcg/actuation (Advair HFA) 2 puffs inhalation Q12H 30 days hydrocortisone 2.5% topical inhalational spacing device (Aerochamber MV spacer) As directed insulin glargine (Lantus Solostar U-100 Insulin) 20 units subcut DAILY ipratropium bromide intranasal ipratropium-albuterol 0.5 mg-3 mg(2.5 mg base)/3 mL 3 mL inhalation Q6H PRN lancets (OneTouch UltraSoft Lancets) As directed latanoprost 0.005% 1 drp ophthalmic (eye) BEDTIME mirabegron ER (Myrbetriq) 25 mg PO DAILY 30 days pen needle, diabetic As directed pioglitazone 45 mg PO DAILY rosuvastatin 40 mg PO DAILY sennosides-docusate sodium 8.6-50 mg (Senna with Docusate Sodium) 2 tab-caps (2 x 8.6-50 mg) PO BEDTIME PRN 60 days sertraline 50 mg PO DAILY sertraline 50 mg PO DAILY simethicone (Gas Relief Extra Strength) 0 mg PO spironolactone 25 mg PO DAILY HPI HPI abdominal pain: Details: GI CLINIC VISIT FOR THIS 77-YEAR-OLD INDONESIAN-SPEAKING FEMALE FOR FOLLOW-UP OF NAUSEA, DYSPHAGIA, UPPER ABDOMINAL PAIN AND CONSTIPATION Patient returns after a hiatus of 2 years (last seen in 2020) ? CHRONIC ILLNESSES:?asthma, hypertension, hypercholesterolemia, glaucoma, type 2 diabetes, sleep apnea. ??? TODAY'S VISIT Telephone Freezer Tunnel OperatorNuno, [phone] Patient reports abdominal pain,/bloating, acid reflex with burning sensation, and constipation. Pt is accompanied by her COMMANDING [employer], Usha Last month had stomach pain x 3 weeks She was vomiting and did not have a BM for several days Tried Milk of Magnesia followed by a small BM Unable to take Senna every day since she has to go to the bathroom and is unable to go out for her appointments Took Milk of Magnesia and was completely cleaned out. Pt fell and was seen at [facility] and was prescribed tylenol for abdominal pain Pt was seen by ObGYn and advised surgery for uterine and rectal prolapse. Pt had refused surgery in the past and would like to proceed with surgery now PAST VISIT: I am not doing well Diagnosed with COVID infection on 6/14/24 Had to go back to the hospital for cough and diagnosed with bronchitis. Complains of chronic constipation - ? related to medications Able to move her bowels - has a feeling of incomplete evacuation. Fell 1.5 years ago and hit her vagina and anus and saw a Creative Producer and diagnosed with uterine prolapse She was offered surgery and pt elected to hold off on the surgery Natali presents via phone call today for a scheduled FUV. PT n/s their visit in May 2023. Pt was rx'd linzess at their last visit. Pt reports that they are still experiencing difficulties with their sx. Pt reports that she would like to explore other medication options as the linzess has not been helping her as much as she would like. Pt reports having severe diarrhea when taking linzess. Pt feels that she is better off not taking the medication and dealing with the constipation rather than take the linzess. Pt reports that milk of magnesium has been helping slightly but has not been fully resolving their sx. Pt has been obtaining this medication OTC. Pt reports that she would like to be rx'd the senna again as that medication had worked the best for managing her sx in the past. Complains of a lot of gas - like a storm Has not been taking medications for constipation since it causes diarrhea and advised to take a lower dose. Pt states that she feels like she is going to choke because she has the gastritis. ? sometimes I poop too much and sometimes I cannot poop at all. She gave me the senna but I have not gotten it because she needs to write a letter to the insurance for me to get that. ? Has good days and bad days - still has the gastritis and bloating. When she takes Senna she goes all days long She would like a prescription for a Senna preparation she had used in the past and not the Generic one - she was advised to drop off information about which brand of Senna she wants Has not started taking the new medications yet. ? Complains of nausea and vomiting for the past month ? Feels bloated in her stomach. ? Notes vomiting after immediately after eating Feels acid reflux in her throat. ? ? ? Notes mucous in her stools. ? Had 2 BMs today and feels better after she has a BM. ? Takes Pantoprazole and feels better. ? Constipation is better and having a BM daily. ? Sometimes has a little discomfort in the abdomen which resolves with Omeprazole. ? Continues to have an upset stomach when she takes fatty food. ? Skin is very delicate and gets irritaion with the sun - ? Feels her stomach is getting distended since she started taking Anoro ? Gets nausea sometimes and takes Chamomile tea which makes it better. ? Takes Pantoprazole once a day - took two this morning. ? Takes aspirin daily. ? Has a small BM daily with incomplete evacuation. Intermittent straining with passage of hard stools. ? Diagnosed with DM 10 yrs ago ? LABS IN [facility]: 09/02/19 Normal CBC and chem panel, ESR 25 ? 09/13 stool test was negative for H pylori antigen ?IMAGING STUDIES: ? 12/27/[address] scan was negative ? 02/13 gastric Emptying Study showed: ? Retention in the stomach at each time interval was: ? 1 hour 82% (normal 37%-90%) ? 2 hours 67% (normal 30%-60%) ? 3 hours 51% ? 4 hours 23% (normal 0%-10%) ?12/19/18 Abd US showed: ? IMPRESSION: ? There is generalized increase in hepatic echotexture, consistent with ? fatty infiltration or hepatocellular disease. Please correlate ? clinically. No focal hepatic mass or intrahepatic biliary dilatation ? is seen. ?ENDOSCOPIC STUDIES: 12/17/18 EGD and Colon showed: ? Esophagus: Tortuous esophagus with increased tertiary contractions without stricture or ring. ? GE junction at 32 cms. Mild focal esophagitis at GE junction. ? Stomach: Moderate diffuse gastric erythema. Biopsies were obtained from the ? antrum and body. Grade 2 flap valve on retroflexed examination of the cardia. ? Two 6-8 mm benign appearing polyp in the gastric body along the lesser curve - ? one polyp removed with a cold biopsy. ? Duodenum: Normal bulb and descending duodenum. Biopsies were obtained from the ? 3rd part of duodenum to check for celiac disease ? Colonoscopy: ? Three diminutive polyps removed. ? Random biopsies were obtained from the colon. ? Moderate to severe diverticulosis seen in the left colon ? Plan: ? Await pathology results ? Continue present medications (Omeprazole at 20 mg PO once daily) ? Patient has an appointment on 12/27/18 in the GI Clinic with Luciana Gutierrez M.D.- ? Repeat Colonoscopy interval based on path results - in 3-5 years if ? polyps are adenomatous and 10 years if polyps are hyperplastic. ? Above findings were reviewed with the patient and relevant handouts ? were provided if indicated. ? BIOPSIES SHOWED: ? A. Small bowel, biopsy: Small bowel mucosa within normal limits; preserved ? villous architecture and no increase in intraepithelial lymphocytes. ? B. Stomach, antrum, biopsy: Gastric antral and body mucosa with mild chronic ? inactive gastritis; negative for Helicobacter pylori, intestinal metaplasia and ? dysplasia. ? C. Stomach, body, biopsy: Gastric body mucosa within normal limits; negative ? for Helicobacter pylori, intestinal metaplasia and dysplasia. ? D. Stomach, polyp, biopsy: Fundic gland polyp; negative for Helicobacter ? pylori, intestinal metaplasia and dysplasia. ? E. Colon, random, biopsy: Colonic mucosa within normal limits; negative for ? active, chronic and microscopic colitis. ? F. Colon, transverse, polyp, polypectomy: Colonic mucosa with a prominent ? lymphoid aggregate; negative for a hyperplastic or neoplastic process. ? G. Rectum, polyp, polypectomy: Hyperplastic polyp. ? PFSH Medical History Dysphagia Tracheobronchomalacia ROXIE (obstructive sleep apnea) Essential hypertension Atherosclerotic cardiovascular disease Urinary incontinence Obese Dyslipidemia Anxiety and depression Gastric pain Sinusitis Chronic allergic rhinitis Asthma Cough Cough Diabetes mellitus Fibromyalgia Pulmonary nodules Surgical History H/O heart artery stent Hx of esophagogastroduodenoscopy History of bronchoscopy Hx of colonoscopy H/O left knee surgery H/O breast biopsy H/O: hysterectomy Family History Father Hypertension Mother Hypertension Diabetes Daughter Diabetes Brother No problems noted. Social History Household Members: Children Alcohol intake: never Patient Tobacco Use Status: Never used Tobacco Smoked in Last 30 Days: No Second Hand Smoke Exposure: Yes Use of substances other than those prescribed or required for medical reasons: No Advance Directives: No Advance Directives Information Provided: No Review of Systems Const All systems reviewed & are unremarkable except as noted in HPI and below ENT Reports Normal hearing present Neuro Reports Normal hearing present and Denies Abnormal speech present Physical Exam Vital Signs: Last Vital Signs Pulse 92 11/13/23 10:32 BP 154/79 H 11/13/23 10:32 BMI result Body Mass Index 32.0 Const General: no acute distress and anxious Nutritional Appearance: overweight Orientation/consciousness: patient oriented x3 Limitations: language barrier HEENT Head: Yes normal to inspection Ears: hearing grossly normal bilaterally Eyes Sclerae: sclerae normal Pupils: Equal, round and reactive pupils present Neck Neck: Yes normal visual inspection Chest Chest palpation & inspection: normal inspection of the chest Resp Effort & Inspection: normal respiratory effort Auscultation: clear to auscultation bilaterally Cardio Palpation: normal PMI Rate: regular rate Rhythm: regular rhythm Heart sounds: S1 normal heart sound present, S2 normal heart sound present and no murmurs GI Palpation (GI): Soft to palpation, nontender and No hepatosplenomegaly present Auscultation: normal bowel sounds Rectal Exam - Female: normal sphincter tone and External hemorrhoid(s) present (a few shima-anal skin tags, no prolapsing hemorrhoids were seen)) Skin General skin exam: no rashes or lesions noted Neuro General: patient oriented x3, gait normal and moves all extremities Cranial nerves: Yes Equal, round and reactive pupils present and Yes Normal hearing present Speech: No Abnormal speech present Psych Appearance: grossly normal Mental Status: mental status grossly normal Assessment & Plan Assessment & Plan (1) Diabetic gastroparesis: Code(s): E11.43 - Type 2 diabetes mellitus with diabetic autonomic (poly)neuropathy; K31.84 - Gastroparesis Category: Medical (2) Chronic constipation: Code(s): K59.09 - Other constipation Category: Medical (3) Colon cancer screening: Comment: 12/14 COLONOSCOPY SHOWED: Three diminutive/hyperplastic polyps removed and left-sided diverticulosis noted. Random biopsies obtained from the colon were normal. It's unclear if patient has had adenomatous polyps removed during her past colonoscopy. Therefore, repeat colonoscopy is advised in 5 years (due 11/2023) Code(s): Z12.11 - Encounter for screening for malignant neoplasm of colon Category: Medical (4) Gas bloat syndrome: Code(s): K92.89 - Other specified diseases of the digestive system Category: Medical (5) Dysphagia: Code(s): R13.10 - Dysphagia, unspecified Category: Medical (6) Rectocele with complete uterovaginal prolapse: Code(s): N81.4 - Uterovaginal prolapse, unspecified Category: Medical (7) Gastritis: Code(s): K29.70 - Gastritis, unspecified, without bleeding Category: Medical Plan 77 YF with asthma, hypertension, hypercholesterolemia, glaucoma, type 2 diabetes, GERD followed in GI for GERD, Diabetic gastroparesis, nausea and vomiting and chronic constipation. Past EGD showed mild esophagitis and gastritis. Gastric biopsies were negative for Helicobacter pylori. Gastric emptying study confirmed a diagnosis of diabetic gastroparesis. Retention in the stomach at each time interval was: 1 hour 82% (normal 37%-90%) 2 hours 67% (normal 30%-60%) 3 hours 51% 4 hours 23% (normal 0%-10%). Patient was advised to start simethicone for abdominal bloating, mirtazapine for gastroparesis and Linzess for constipation She discontinued Linzess since it was causing diarrhea and is requesting a prescription for Senna Plus - prescription was sent. Patient was advised to resume Linzess at 72 mcg every other day for 1-2 weeks and increase to daily if she continued to have constipation. 03/01/23 Pt was prescribed Linzess 72 mcg daily 08/16/23 Pt advised to take Senna plus 2 tab every other day at bedtime 11/13/23 Pt was seen by ObGYn and advised surgery for uterine and rectal prolapse. Pt had refused surgery in the past and would like to proceed with surgery now Pt was advised to start Famotidine 20 mg twice daily. Referred to Uro-gynecology for repair of rectocele with complete utero-vaginal prolapse. FU appt in 4 months Orders: Referrals Urogynecology Referral N81.4 - Uterovaginal prolapse, unspecified Medications: New famotidine 20 mg PO BID 60 tabs 3RF 30 days K29.70 - Gastritis, unspecified, without bleeding Coding Level of Care Code Est Pt Level 4 (44296) Diagnoses Diabetic gastroparesis E11.43; K31.84 Chronic constipation K59.09 Colon cancer screening Z12.11 Gas bloat syndrome K92.89 Dysphagia R13.10 Rectocele with complete uterovaginal prolapse N81.4 Chronic gastritis without bleeding, unspecified gastritis type K29.70 Time Spent (min) 21
[2023-11-13 10:32] VITALS: BP 154/79; PULSE 92; BMI 32.0
== END 2023-11-13 11:42 | disposition home or self-care (01) ==
LOC: HO.HGI 10:23
PROVIDERS: Visit Provider Internal Medicine Gastroenterology
DX: E11.43 Type 2 diabetes mellitus with diabetic autonomic (poly)neuropathy (principal); K31.84 Gastroparesis; K59.09 Other constipation; Z12.11 Encounter for screening for malignant neoplasm of colon; K92.89 Other specified diseases of the digestive system; R13.10 Dysphagia, unspecified; N81.4 Uterovaginal prolapse, unspecified; K29.70 Gastritis, unspecified, without bleeding
CPT/HCPCS: 99499

== ENCOUNTER → 2023-11-13 10:23 | Outpatient (BNVA) | payer OTHER, SELFPAY | PROVIDERS: Visit Provider Internal Medicine Gastroenterology ==

== ENCOUNTER 2023-11-14 22:40 | Emergency (ER) | payer OTHER, SELFPAY ==
--- NOTE | ~2023-11-14 | XR_ITS ---
EXAMINATION: XR PELVIS CLINICAL INFORMATION: Fall. Pain. COMPARISON: None available. TECHNIQUE: AP view of the pelvis. FINDINGS: The bone mineralization is within normal limits. Joint spaces are maintained. No fracture is seen. There is moderate lumbar degenerative change. The soft tissues are unremarkable. XR/XR pelvis 1-2V IMPRESSION: 1. No fracture or dislocation. 2. Moderate lumbar degenerative change. Electronically signed by: Judah Acosta MD 11/15/2023 01:43 AM EDT
[2023-11-14 23:08] VITALS: BP 112/67; PULSE 59; O2SAT 97; BMI 70.7
[2023-11-14 23:10] VITALS: BP 183/63; PULSE 53; RESP 20; TEMP 36.6; O2SAT 98
--- NOTE | 2023-11-15 00:06 | ED_ITS ---
HPI - Extremity Problem General Chief complaint: Fall Stated complaint: R LEG PAIN, HTN Time Seen by Provider: 11/14/23 23:35 Source: patient Mode of arrival: EMS Limitations: no limitations History of Present Illness ED Provider: sera DAVIDSON Narrative: Patient apparently was trying to go upstairs on 11/04 was controlled and fell on her knees since then complaining of pain in the right groin area especially on ambulation no other injuries Related Data Home Medications ?Medication ?Instructions ?Recorded ?Confirmed lancets (OxyBand TechnologiesTouch UltraSoft #100 ea 01/06/20 11/13/23 Lancets) pen needle, diabetic 32 gauge x #50 ea 08/17/20 11/13/23 simethicone 125 mg capsule (Gas 0 mg PO 11/26/20 11/13/23 Relief Extra Strength) spironolactone 25 mg tablet 25 mg PO DAILY 11/26/20 11/13/23 latanoprost 0.005 % eye drops 1 drp ophthalmic (eye) BEDTIME 07/26/22 11/13/23 pioglitazone 45 mg tablet 45 mg PO DAILY 11/21/22 11/13/23 carvedilol 3.125 mg tablet 3.125 mg PO BID 06/18/23 11/13/23 sertraline 25 mg tablet 50 mg PO DAILY 06/18/23 11/13/23 sertraline 50 mg tablet 50 mg PO DAILY 06/18/23 11/13/23 hydrocortisone 2.5 % topical topical 08/16/23 11/13/23 ointment ipratropium bromide 21 mcg (0.03 intranasal 08/16/23 11/13/23 %) nasal spray insulin glargine 100 unit/mL (3 20 unit subcut DAILY 10/10/23 11/13/23 mL) subcutaneous pen (Lantus Solostar U-100 Insulin) rosuvastatin 40 mg tablet 40 mg PO DAILY 10/10/23 11/13/23 Previous Rx's ?Medication ?Instructions ?Recorded blood sugar diagnostic (OxyBand TechnologiesTouch #100 ea 01/07/20 Verio test strips) blood-glucose meter (OneTouch #1 ea 01/07/20 Verio Meter) mirabegron 25 mg tablet,extended 25 mg PO DAILY 30 days #30 tabs 10/28/20 release 24 hr (Myrbetriq) inhalational spacing device #1 ea 01/25/21 (Aerochamber MV spacer) albuterol sulfate 90 mcg/actuation 2 puff PO Q4H PRN for wheezing 30 11/21/22 aerosol inhaler (Ventolin HFA) days #18 ea budesonide 32 mcg/actuation nasal 2 spray intranasal DAILY 30 days 11/21/22 spray #8.43 mL fluticasone propionate 115 2 puff inhalation Q12H 30 days #12 11/21/22 mcg-salmeterol 21 mcg/actuation grams HFA inhaler (Advair HFA) ipratropium 0.5 mg-albuterol 3 mg 3 ml inhalation Q6H PRN for 03/30/23 (2.5 mg base)/3 mL nebulization wheezing #180 mL soln budesonide 0.5 mg/2 mL suspension 0.5 mg (2 mL) inhalation BID 30 05/21/23 for nebulization days #120 mL acetaminophen 500 mg tablet 500 mg PO Q6H PRN fever or pain 08/10/23 #14 tabs benzonatate 200 mg capsule 200 mg PO TID PRN cough #10 caps 08/16/23 sennosides 8.6 mg-docusate sodium 2 tab-cap (2 x 8.6-50 mg) PO 08/16/23 50 mg tablet (Senna with Docusate BEDTIME PRN constipation 60 days Sodium) #120 tabs clopidogrel 75 mg tablet (Plavix) 75 mg PO DAILY #90 tabs 10/10/23 evolocumab 140 mg/mL subcutaneous 140 mg subcut Q2W #2 mL 10/11/23 pen injector (Tracy Alejandre) famotidine 20 mg tablet 20 mg PO BID 30 days #60 tabs 11/13/23 cyclobenzaprine 10 mg tablet 10 mg PO Q8H #20 tabs 11/15/23 tramadol 50 mg tablet 50 mg PO Q6H PRN pain #20 tabs 11/15/23 Allergies Allergy/AdvReac Type Severity Reaction Status Date / Time fluticasone [Flovent HFA] Allergy Unknown lip Verified 11/14/23 23:09 swelling lisinopril Allergy Itching Verified 11/14/23 23:09 umeclidinium AdvReac Intermediate Chest Pain Verified 11/14/23 23:09 [From Incruse Ellipta] empagliflozin [Jardiance] AdvReac Unknown vaginal Verified 11/14/23 23:09 itch metformin AdvReac Unknown stomach Verified 11/14/23 23:09 pain sitagliptin [Januvia] AdvReac Unknown stomach Verified 11/14/23 23:09 pain acetaminophen [From Percocet] AdvReac Nausea and Verified 11/14/23 23:09 Vomiting hydrocodone [From Vicodin] AdvReac Nausea and Verified 11/14/23 23:09 Vomiting ibuprofen [From Motrin] AdvReac Stomach Verified 11/14/23 23:09 Upset oxycodone [From Percocet] AdvReac Nausea and Verified 11/14/23 23:09 Vomiting Review of Systems Review of Systems: Yes all other systems are reviewed and are negative [facility] Past Medical History Medical History Dysphagia Tracheobronchomalacia ROXIE (obstructive sleep apnea) Essential hypertension Atherosclerotic cardiovascular disease Urinary incontinence Obese Dyslipidemia Anxiety and depression Gastric pain Sinusitis Chronic allergic rhinitis Asthma Cough Cough Diabetes mellitus Fibromyalgia Pulmonary nodules Surgical History H/O heart artery stent Hx of esophagogastroduodenoscopy History of bronchoscopy Hx of colonoscopy H/O left knee surgery H/O breast biopsy H/O: hysterectomy Family History Family History Father Hypertension Mother Hypertension Diabetes Daughter Diabetes Brother No problems noted. Social History Social History Household Members: Children Alcohol intake: never Patient Tobacco Use Status: Never used Tobacco Second Hand Smoke Exposure: Yes Advance Directives: No Advance Directives Information Provided: No Physical Exam Vital Signs: Vital Signs: Last Vital Signs Temp 98.0 F 11/15/23 02:08 Pulse 58 11/15/23 02:08 Resp 16 11/15/23 02:08 BP 168/58 H 11/15/23 02:08 Pulse Ox 97 11/15/23 02:08 O2 Del Method Room Air 11/15/23 02:08 BMI result Body Mass Index 70.7 Appearance: Alert. Oriented X3. No acute distress. Eyes: No pallor or icterus ENT: Pharynx normal. Oral Mucosa moist Neck: Normal inspection. Neck supple. CVS: Normal heart rate and rhythm. Pulses normal. Respiratory: No respiratory distress. Equal air entry bilateral, no wheezing/rales/rhonchi Abdomen: Soft and nontender. Bowel sounds are present, no mass palpable, no CVA tenderness Skin: Skin warm and dry. Normal skin color. Normal skin turgor. Extremities: No lower extremity edema. No calf tenderness tenderness right groin area increases on hip flexion and adduction no deformity neurovascular int act Neuro: Oriented X 3. No motor deficit. No sensory deficit.No cerebellar signs , cranial nerves II-XII intact Medications Administered Discontinued Medications Generic Name Dose Route Start Last Admin Trade Name Freq PRN Reason Stop Dose Admin Cyclobenzaprine HCl 10 mg 11/15/23 00:06 11/15/23 00:54 Cyclobenzaprine Hcl 10 Mg Tablet PO 11/15/23 00:07 10 mg ONCE ONE Administration Ketorolac Tromethamine 30 mg 11/15/23 00:57 11/15/23 01:01 Ketorolac Tromethamine 30 Mg/Ml Vial IVPUSH 11/15/23 00:58 30 mg ONCE ONE Administration Medical Decision Making Medical Decision Making [facility] Narrative: Patient's right groin strain x-ray negative for fracture neurovascular intact discharge patient home on tramadol and Flexeril Differential Diagnosis Differential Diagnoses: The differential diagnosis associated with the presentation includes Independent Interpretation I performed an independent interpretation of an: Plain X-Ray Discharge Plan Discharge Clinical Impression: Strain of groin Patient Disposition: Home, Self-Care Instructions: Groin Strain (ED) Additional Instructions: Apply ice Take pain medication muscle relaxant as prescribed Follow with PCP Prescriptions: New cyclobenzaprine 10 mg tablet 10 mg PO Q8H Qty: 20 0RF tramadol 50 mg tablet 50 mg PO Q6H PRN (Reason: pain) Qty: 20 0RF No Action (DME) lancets [OneTouch UltraSoft Lancets] [facility] [place] Rx Instructions .ROUTE .MEDSUPPLY Qty: 100 Rx Instructions: As directed (DME) blood-glucose meter [OneTouch Verio Meter] Misc See Rx Instructions .ROUTE .MEDSUPPLY Qty: 1 0RF Rx Instructions: As directed (DME) OneTouch Verio test strips Strip See Rx Instructions .ROUTE .MEDSUPPLY Qty: 100 0RF Rx Instructions: As directed Myrbetriq 25 mg tablet extended release 24 hr 25 mg PO DAILY 30 Days Qty: 30 1RF (DME) Aerochamber MV Spacer See Rx Instructions .ROUTE .MEDSUPPLY Qty: 1 0RF Rx Instructions: As directed ipratropium-albuterol 0.5 mg-3 mg(2.5 mg base)/3 mL solution for nebulization 3 ml inhalation Q6H PRN (Reason: for wheezing) Qty: 180 2RF Repatha SureClick 140 mg/mL pen injector 140 mg subcut Q2W Qty: 2 2RF acetaminophen 500 mg tablet 500 mg PO Q6H PRN (Reason: fever or pain) Qty: 14 0RF benzonatate 200 mg capsule 200 mg PO TID PRN (Reason: cough) Qty: 10 0RF simethicone [Gas Relief Extra Strength] 125 mg capsule 0 mg PO spironolactone 25 mg tablet 25 mg PO DAILY sertraline 25 mg tablet 50 mg PO DAILY (DME) pen needle, diabetic 32 gauge x 5/32 needle See Rx Instructions .ROUTE .MEDSUPPLY Qty: 50 Rx Instructions: As directed pioglitazone 45 mg tablet 45 mg PO DAILY fluticasone propion-salmeterol [Advair HFA] 115-21 mcg/actuation HFA aerosol inhaler 2 puff inhalation Q12H 30 Days Qty: 12 11RF albuterol sulfate [Ventolin HFA] 90 mcg/actuation HFA aerosol inhaler 2 puff PO Q4H PRN (Reason: for wheezing) 30 Days Qty: 18 6RF budesonide 32 mcg/actuation spray,non-aerosol 2 spray intranasal DAILY 30 Days Qty: 8.43 7RF Rx Instructions: administer into each nostril budesonide 0.5 mg/2 mL suspension for nebulization 0.5 mg inhalation BID 30 Days Qty: 120 11RF Lantus Solostar U-100 Insulin 100 unit/mL (3 mL) insulin pen 20 unit subcut DAILY rosuvastatin 40 mg tablet 40 mg PO DAILY clopidogrel [Plavix] 75 mg tablet 75 mg PO DAILY Qty: 90 3RF famotidine 20 mg tablet 20 mg PO BID 30 Days Qty: 60 3RF latanoprost 0.005 % drops 1 drp ophthalmic (eye) BEDTIME carvedilol 3.125 mg tablet 3.125 mg PO BID sertraline 50 mg tablet 50 mg PO DAILY ipratropium bromide 21 mcg (0.03 %) spray,non-aerosol intranasal hydrocortisone 2.5 % ointment topical sennosides-docusate sodium [Senna with Docusate Sodium] 8.6-50 mg tablet 2 tab-cap PO BEDTIME PRN (Reason: constipation) 60 Days Qty: 120 2RF Rx Instructions: Please take every other day at bedtime Print Language: [place]
[2023-11-15] MEDS: Cyclobenzaprine HCl 10 MG TABLET PO (00:54)
[2023-11-15] MEDS: Ketorolac Tromethamine 30 MG/ML VIAL IVPUSH (01:01)
[2023-11-15 02:08] VITALS: BP 168/58; PULSE 58; RESP 16; TEMP 36.7; O2SAT 97
[2023-11-15 04:05] VITALS: BP 159/63; PULSE 62; RESP 16; TEMP 36.8; O2SAT 98
[2023-11-15 04:40] VITALS: BP 159/63; PULSE 62; RESP 16; TEMP 36.8; O2SAT 98
== END 2023-11-15 04:40 | disposition home or self-care (01) ==
PROVIDERS: Emergency Provider Internal Medicine; PCP Family Medicine
DX: S39.011A Strain of muscle, fascia and tendon of abdomen, initial encounter (principal); M79.604 Pain in right leg; R10.2 Pelvic and perineal pain; I10 Essential (primary) hypertension; X58.XXXA Exposure to other specified factors, initial encounter; Y93.89 Activity, other specified; Y92.89 Other specified places as the place of occurrence of the external cause; Y99.8 Other external cause status; Z79.899 Other long term (current) drug therapy
CPT/HCPCS: 72170; 96374; 99284; J1885

== ENCOUNTER 2023-11-16 17:06 | Emergency (ER) | payer OTHER, SELFPAY ==
[2023-11-16 17:40] VITALS: BP 127/70; BP 151/84; PULSE 70; PULSE 92; RESP 16; TEMP 36.8; O2SAT 97; O2SAT 98; BMI 29.7
--- NOTE | 2023-11-16 18:25 | PC.NURSE ---
coming from home where patient took her prescribed medication and began to experience dry mouth. ambulated to the bathroom with steady gait w/ standby assistance. call gutierrez within reach.
[2023-11-16 18:56] VITALS: BP 140/64; PULSE 56; RESP 20; TEMP 36.6; O2SAT 97
--- NOTE | 2023-11-16 21:15 | ED_ITS ---
HPI - General Adult General Chief complaint: General Medical Stated complaint: not feeling well Time Seen by Provider: 11/16/23 20:59 Source: patient Mode of arrival: ambulatory Limitations: no limitations History of Present Illness ED Provider: Dr.Natalie Lr HPI narrative: Patient comes to the emergency room complaining of feeling a bit drowsy and having dry mouth after taking tramadol and cyclobenzaprine together. Patient states that she has been having right hip pain for couple of weeks. Patient is ambulatory. Patient states that the tramadol and the cyclobenzaprine and a doi ng anything other than making her feel drowsy. Related Data Home Medications ?Medication ?Instructions ?Recorded ?Confirmed lancets ([employer]Touch UltraSoft #100 ea 01/06/20 11/13/23 Lancets) pen needle, diabetic 32 gauge x #50 ea 08/17/20 11/13/23 simethicone 125 mg capsule (Gas 0 mg PO 11/26/20 11/13/23 Relief Extra Strength) spironolactone 25 mg tablet 25 mg PO DAILY 11/26/20 11/13/23 latanoprost 0.005 % eye drops 1 drp ophthalmic (eye) BEDTIME 07/26/22 11/13/23 pioglitazone 45 mg tablet 45 mg PO DAILY 11/21/22 11/13/23 carvedilol 3.125 mg tablet 3.125 mg PO BID 06/18/23 11/13/23 sertraline 25 mg tablet 50 mg PO DAILY 06/18/23 11/13/23 sertraline 50 mg tablet 50 mg PO DAILY 06/18/23 11/13/23 hydrocortisone 2.5 % topical topical 08/16/23 11/13/23 ointment ipratropium bromide 21 mcg (0.03 intranasal 08/16/23 11/13/23 %) nasal spray insulin glargine 100 unit/mL (3 20 unit subcut DAILY 10/10/23 11/13/23 mL) subcutaneous pen (Lantus Solostar U-100 Insulin) rosuvastatin 40 mg tablet 40 mg PO DAILY 10/10/23 11/13/23 Previous Rx's ?Medication ?Instructions ?Recorded blood sugar diagnostic ([employer]Touch #100 ea 01/07/20 Verio test strips) blood-glucose meter (Vig[employer]Touch #1 ea 01/07/20 Verio Meter) mirabegron 25 mg tablet,extended 25 mg PO DAILY 30 days #30 tabs 10/28/20 release 24 hr (Myrbetriq) inhalational spacing device #1 ea 01/25/21 (Aerochamber MV spacer) albuterol sulfate 90 mcg/actuation 2 puff PO Q4H PRN for wheezing 30 11/21/22 aerosol inhaler (Ventolin HFA) days #18 ea budesonide 32 mcg/actuation nasal 2 spray intranasal DAILY 30 days 11/21/22 spray #8.43 mL fluticasone propionate 115 2 puff inhalation Q12H 30 days #12 11/21/22 mcg-salmeterol 21 mcg/actuation grams HFA inhaler (Advair HFA) ipratropium 0.5 mg-albuterol 3 mg 3 ml inhalation Q6H PRN for 03/30/23 (2.5 mg base)/3 mL nebulization wheezing #180 mL soln budesonide 0.5 mg/2 mL suspension 0.5 mg (2 mL) inhalation BID 30 05/21/23 for nebulization days #120 mL acetaminophen 500 mg tablet 500 mg PO Q6H PRN fever or pain 08/10/23 #14 tabs benzonatate 200 mg capsule 200 mg PO TID PRN cough #10 caps 08/16/23 sennosides 8.6 mg-docusate sodium 2 tab-cap (2 x 8.6-50 mg) PO 08/16/23 50 mg tablet (Senna with Docusate BEDTIME PRN constipation 60 days Sodium) #120 tabs clopidogrel 75 mg tablet (Plavix) 75 mg PO DAILY #90 tabs 10/10/23 evolocumab 140 mg/mL subcutaneous 140 mg subcut Q2W #2 mL 10/11/23 pen injector (Repatha SureClick) famotidine 20 mg tablet 20 mg PO BID 30 days #60 tabs 11/13/23 cyclobenzaprine 10 mg tablet 10 mg PO Q8H #20 tabs 11/15/23 tramadol 50 mg tablet 50 mg PO Q6H PRN pain #20 tabs 11/15/23 oxycodone 5 mg tablet 5 mg PO BID PRN pain #7 tabs 11/16/23 Allergies Allergy/AdvReac Type Severity Reaction Status Date / Time fluticasone [Flovent HFA] Allergy Unknown lip Verified 11/16/23 17:42 swelling lisinopril Allergy Itching Verified 11/16/23 17:42 umeclidinium AdvReac Intermediate Chest Pain Verified 11/16/23 17:42 [From Incruse Ellipta] empagliflozin [Jardiance] AdvReac Unknown vaginal Verified 11/16/23 17:42 itch metformin AdvReac Unknown stomach Verified 11/16/23 17:42 pain sitagliptin [Januvia] AdvReac Unknown stomach Verified 11/16/23 17:42 pain acetaminophen [From Percocet] AdvReac Nausea and Verified 11/16/23 17:42 Vomiting hydrocodone [From Vicodin] AdvReac Nausea and Verified 11/16/23 17:42 Vomiting ibuprofen [From Motrin] AdvReac Stomach Verified 11/16/23 17:42 Upset oxycodone [From Percocet] AdvReac Nausea and Verified 11/16/23 17:42 Vomiting Review of Systems Review of Systems: Constitutional : No Weight loss, No Fever, No Chills, No Night Sweats, No Fatigue, No Malaise ENT/Mouth : No Hearing loss, No Ear Pain, No Nasal Congestion, No Sinus Pain, No Hoarseness, No sore throat, No Rhinorrhea, No Swallowing Difficulty Eyes: No Eye Pain, No Swelling, No Redness, No Foreign Body, No Discharge, No Vision Changes Cardiovascular : No Chest Pain, No SOB, No Dyspnea on Exertion, No Orthopnea, No Edema, No Palpitations Respiratory : No Cough, No Sputum, No Wheezing, No Smoke Exposure, No Dyspnea Gastrointestinal : No Nausea, No Vomiting, No Diarrhea, No Constipation, No abdominal Pain, No Hematochezia, No Melena Genitourinary : no irregular bleeding, No Dysuria, No Urinary Frequency, No Hematuria, No Urinary Incontinence, No Urgency, No Flank Pain, No Urinary Flow Changes, No Hesitancy Musculoskeletal : Complaining of chronic right hip pain, 2 weeks, no new falls No Myalgias, No Joint Swelling Skin : No Skin Lesions, No rash Neuro : No Weakness, No Numbness, No Paresthesias, No Loss of Consciousness, No Dizziness, No Headache Psych : No Anxiety/Panic, No Depression, No SI/HI/AH/VH, No Social Issues, Heme/Lymph: No Bruising, No Bleeding,No Lymphadenopathy Endocrine : No Polyuria, No Polydipsia, No Temperature Intolerance [facility] Past Medical History Medical History Dysphagia Tracheobronchomalacia ROXIE (obstructive sleep apnea) Essential hypertension Atherosclerotic cardiovascular disease Urinary incontinence Obese Dyslipidemia Anxiety and depression Gastric pain Sinusitis Chronic allergic rhinitis Asthma Cough Cough Diabetes mellitus Fibromyalgia Pulmonary nodules Surgical History H/O heart artery stent Hx of esophagogastroduodenoscopy History of bronchoscopy Hx of colonoscopy H/O left knee surgery H/O breast biopsy H/O: hysterectomy Family History Family History Father Hypertension Mother Hypertension Diabetes Daughter Diabetes Brother No problems noted. Social History Social History Household Members: Children Alcohol intake: never Patient Tobacco Use Status: Never used Tobacco Second Hand Smoke Exposure: Yes Advance Directives: No Advance Directives Information Provided: No Do you have a plan to hurt others: No Plan Physical Exam ED Vital Signs: Vital Signs - 24 hr 11/16/23 17:40 11/16/23 18:56 Temperature 98.3 F 97.8 F Pulse Rate 70 56 Respiratory Rate 16 20 Blood Pressure 127/70 140/64 H Pulse Oximetry 97 97 Oxygen Delivery Method Room Air Room Air BMI result Body Mass Index 29.7 Const Other: Appearance: Alert. Oriented X3. No acute distress. Eyes: Pupils equal, round and reactive to light. ENT: Pharynx normal. Neck: Normal inspection. Neck supple. No lymph nodes noted. No crepitus CVS: Normal heart rate and rhythm. Pulses normal. Normal S1 and S2 Respiratory: No respiratory distress. Breath sounds normal. No Wheezing. No rales Abdomen: Soft and nontender. No rigidity. No distention. Skin: Skin warm and dry. Normal skin color. Normal skin turgor. Extremities: No lower extremity edema. No Lacerations. No Rash. Patient able to flex and extend the hip, no bruising. Patient is ambulatory with normal gait Neuro: Oriented X 3. No motor deficit. No sensory deficit. Moving all extremities. No slurred speech. CN 2 through 12 grossly intact Psych: calm, cooperative, normal affect Medical Decision Making Medical Decision Making MDM Narrative: I discussed with the patient known to take tramadol and cyclobenzaprine at the same time this is a medication side-effect and can make her very drowsy make her fall. Instead, I discussed with the patient that since she is not having any pain relief, we can start oxycodone by itself, to discontinue tramadol and cyclobenzaprine and only take it when she is already in bed to avoid falls. Patient and family agree with plan. Discharge Plan Discharge Clinical Impression: Chronic hip pain, Medication side effects Patient Disposition: Home, Self-Care Instructions: Hip Pain (ED) Additional Instructions: Please follow-up with your primary care physician tomorrow. If you have any worsening or new symptoms, please return to the emergency room or call 911 Prescriptions: New oxycodone 5 mg tablet 5 mg PO BID PRN (Reason: pain) Qty: 7 0RF Rx Instructions: Partial Fill upon patient request. No Action (DME) lancets [OneTouch UltraSoft Lancets] Misc See Rx Instructions .ROUTE .MEDSUPPLY Qty: 100 Rx Instructions: As directed (DME) blood-glucose meter [OneTouch Verio Meter] Misc See Rx Instructions .ROUTE .MEDSUPPLY Qty: 1 0RF Rx Instructions: As directed (DME) OneTouch Verio test strips Strip See Rx Instructions .ROUTE .MEDSUPPLY Qty: 100 0RF Rx Instructions: As directed Myrbetriq 25 mg tablet extended release 24 hr 25 mg PO DAILY 30 Days Qty: 30 1RF (DME) Aerochamber MV Spacer See Rx Instructions .ROUTE .MEDSUPPLY Qty: 1 0RF Rx Instructions: As directed ipratropium-albuterol 0.5 mg-3 mg(2.5 mg base)/3 mL solution for nebulization 3 ml inhalation Q6H PRN (Reason: for wheezing) Qty: 180 2RF Repatha SureClick 140 mg/mL pen injector 140 mg subcut Q2W Qty: 2 2RF acetaminophen 500 mg tablet 500 mg PO Q6H PRN (Reason: fever or pain) Qty: 14 0RF benzonatate 200 mg capsule 200 mg PO TID PRN (Reason: cough) Qty: 10 0RF cyclobenzaprine 10 mg tablet 10 mg PO Q8H Qty: 20 0RF tramadol 50 mg tablet 50 mg PO Q6H PRN (Reason: pain) Qty: 20 0RF simethicone [Gas Relief Extra Strength] 125 mg capsule 0 mg PO spironolactone 25 mg tablet 25 mg PO DAILY sertraline 25 mg tablet 50 mg PO DAILY (DME) pen needle, diabetic 32 gauge x 5/32 needle See Rx Instructions .ROUTE .MEDSUPPLY Qty: 50 Rx Instructions: As directed pioglitazone 45 mg tablet 45 mg PO DAILY fluticasone propion-salmeterol [Advair HFA] 115-21 mcg/actuation HFA aerosol inhaler 2 puff inhalation Q12H 30 Days Qty: 12 11RF albuterol sulfate [Ventolin HFA] 90 mcg/actuation HFA aerosol inhaler 2 puff PO Q4H PRN (Reason: for wheezing) 30 Days Qty: 18 6RF budesonide 32 mcg/actuation spray,non-aerosol 2 spray intranasal DAILY 30 Days Qty: 8.43 7RF Rx Instructions: administer into each nostril budesonide 0.5 mg/2 mL suspension for nebulization 0.5 mg inhalation BID 30 Days Qty: 120 11RF Lantus Solostar U-100 Insulin 100 unit/mL (3 mL) insulin pen 20 unit subcut DAILY rosuvastatin 40 mg tablet 40 mg PO DAILY clopidogrel [Plavix] 75 mg tablet 75 mg PO DAILY Qty: 90 3RF famotidine 20 mg tablet 20 mg PO BID 30 Days Qty: 60 3RF latanoprost 0.005 % drops 1 drp ophthalmic (eye) BEDTIME carvedilol 3.125 mg tablet 3.125 mg PO BID sertraline 50 mg tablet 50 mg PO DAILY ipratropium bromide 21 mcg (0.03 %) spray,non-aerosol intranasal hydrocortisone 2.5 % ointment topical sennosides-docusate sodium [Senna with Docusate Sodium] 8.6-50 mg tablet 2 tab-cap PO BEDTIME PRN (Reason: constipation) 60 Days Qty: 120 2RF Rx Instructions: Please take every other day at bedtime Print Language: Turkish
[2023-11-16 21:28] VITALS: BP 147/55; PULSE 63; RESP 18; TEMP 36.6; O2SAT 97
== END 2023-11-16 21:44 | disposition home or self-care (01) ==
PROVIDERS: Emergency Provider Emergency Medicine; PCP Family Medicine
DX: M25.551 Pain in right hip (principal); Z79.899 Other long term (current) drug therapy
CPT/HCPCS: 99283; 99284

== ENCOUNTER → 2023-12-04 10:31 | Outpatient (BNVA) | payer OTHER, SELFPAY | PROVIDERS: PCP Family Medicine; Visit Provider Internal Medicine ==

== ENCOUNTER 2024-01-04 10:43 | Outpatient (AMB) | payer OTHER, SELFPAY ==
--- NOTE | 2024-01-04 10:50 | A.OFFVIS_ITS ---
Vital Signs 01/04/24 10:52 Height 4 ft 11 in Weight 148 lb 12.992 oz BMI 30.1 BP 130/68 Blood Pressure Location Lt brachial Position Sitting Pulse 100 Pulse Source Pulse Oximeter Pulse Oximetry (%) 98 Oxygen Delivery Method Room Air Intake Visit Reasons: COPD Nursery Teacher Required: No Information And Data Architect Analyst: Information And Data Architect Analyst offered & declined Accompanied by: Self / Same As Patient Allergies fluticasone [Flovent HFA] Allergy (Unknown, Verified 01/04/24 10:57) lip swelling lisinopril Allergy (Verified 01/04/24 10:57) Itching umeclidinium [From Incruse Ellipta] Adverse Reaction (Intermediate, Verified 01/04/24 10:57) Chest Pain empagliflozin [Jardiance] Adverse Reaction (Unknown, Verified 01/04/24 10:57) vaginal itch metformin Adverse Reaction (Unknown, Verified 01/04/24 10:57) stomach pain sitagliptin [Januvia] Adverse Reaction (Unknown, Verified 01/04/24 10:57) stomach pain acetaminophen [From Percocet] Adverse Reaction (Verified 01/04/24 10:57) Nausea and Vomiting hydrocodone [From Vicodin] Adverse Reaction (Verified 01/04/24 10:57) Nausea and Vomiting ibuprofen [From Motrin] Adverse Reaction (Verified 01/04/24 10:57) Stomach Upset oxycodone [From Percocet] Adverse Reaction (Verified 01/04/24 10:57) Nausea and Vomiting Medication List - Last Reconciled 01/04/24 by Keira Meehan LPN acetaminophen 500 mg PO Q6H PRN albuterol sulfate 90 mcg/actuation (Ventolin HFA) 2 puffs PO Q4H PRN 30 days benzonatate 200 mg PO TID PRN blood sugar diagnostic (OneTouch Verio test strips) As directed blood-glucose meter (OneTouch Verio Meter) As directed budesonide 32 mcg/actuation 2 sprays intranasal DAILY 30 days budesonide 0.5 mg (2 mL) inhalation BID 30 days carvedilol 3.125 mg PO BID clopidogrel (Plavix) 75 mg PO DAILY cyclobenzaprine 10 mg PO Q8H evolocumab (Repatha SureClick) 140 mg subcut Q2W famotidine 20 mg PO BID 30 days fluticasone propion-salmeterol 115-21 mcg/actuation (Advair HFA) 2 puffs PO Q12H hydrocortisone 2.5% topical inhalational spacing device (Aerochamber MV spacer) As directed insulin glargine (Lantus Solostar U-100 Insulin) 20 units subcut DAILY ipratropium bromide intranasal ipratropium-albuterol 0.5 mg-3 mg(2.5 mg base)/3 mL 3 mL inhalation Q6H PRN lancets (OneTouch UltraSoft Lancets) As directed latanoprost 0.005% 1 drp ophthalmic (eye) BEDTIME mirabegron ER (Myrbetriq) 25 mg PO DAILY 30 days oxycodone 5 mg PO BID PRN pen needle, diabetic As directed pioglitazone 45 mg PO DAILY rosuvastatin 40 mg PO DAILY sennosides-docusate sodium 8.6-50 mg (Senna with Docusate Sodium) 2 tab-caps (2 x 8.6-50 mg) PO BEDTIME PRN 60 days sertraline 50 mg PO DAILY sertraline 50 mg PO DAILY simethicone (Gas Relief Extra Strength) 0 mg PO spironolactone 25 mg PO DAILY tramadol 50 mg PO Q6H PRN HPI Comments Details: The patient is a 78 year-old woman with a known history of asthma, pulmonary nodules and chronic cough. Today she has a telehealth visit. She was in her usual state health until for the last few days which she has been having worsening cough in addition to allergy symptoms. She has been visiting family in the symptoms appear to be getting worse. She has tried Benadryl because of significant daytime drowsiness. In addition to that she continues with current respiratory therapy with only partial resolution of the symptoms. She denies any fevers or chills or any exposure to any cover 19 infection. 07/22/2020 the patient is here for a follow-up visit. She is status post bronchoscopy. 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 Her left mainstem bronchus also appeared to be inflamed consistent with bronchitis. Her cultures were all negative except set for some filamentous fungus. I do not believe that this is infectious process. However, the patient has significant allergies and likely contributing to her worsening asthma and allergy symptoms. She is concerned because she also has mold in her current home that she is renting. At this point this place is not healthy and safe for her pulmonary health. I did provide her with a brief letter recommended that she relocate to an apartment or home free of rugs, free of pests and also free of mold. The patient is using cough medications. This has been helpful. In addition to has a history of obstructive sleep apnea. She not using CPAP at this time. The patient does have daytime drowsiness in addition to intermittent headaches. She also has a significant history of snoring. Her Dolomite score is elevated 01/19. I will request a home sleep study for the patient as well. The patient does have a CPT Acapella valve that she needs to use. She will bring it into the next visit so I can tissue had to use it in the meantime she is going to continue with current respiratory therapy. She also has an allergy appointment coming up soon. We did talk about the tracheobronchomalacia as far as different interventions. Ultimately if she wants to have a referral to [facility] and will be reasonable specially if she fails conservative management. 07/26/2022 The patient is here for a follow up visit. he is doing well now. Several months ago she was admitted to [facility] [place] with NSTEMI. Initially felt to need CABG, but then underwent a PCI with 2 stents to the RCA. She then was discharged, but then readmitted and underwent a repeat cath with PCI to LAD and OM2. She now is recovering.nIs suppose to start rehab. Has been using her inhalers as prescribed. She did under a CT chest, but is not read as of yet. I will call her once I have the results. Not tolerating the Breo powder. Causing hoarseness. Having worsening allergy symptoms with nasal congestion and cough. moderate in severity. 11/21/2022 the patient is here for a pulmonary follow-up visit. She is recovering from her cardiac interventions. She is participating in cardiac rehabilitation. She is tolerating that well. Now going to the fall she has noticed increasing allergy symptoms. She has been using her ucur-fdo-knepnty allergy medicine and has been using the Advair inhaler. She does use at twice a day. Still having to use her rescue inhaler throughout the day in complaining of chest tightness and cough. The patient also has some degree of tracheal bronchomalacia that is likely affecting her airway clearance. The patient was following up with Allergy and then now needs a referral to a new office because of a recent change. The patient will continue to follow up with Allergy immunology because allergy shots were providing her positive results per in the meantime will going to go ahead and optimize respiratory therapy by adding a long-acting muscarinic antagonist and she will continue with the combination inhaler. 05/21/2023 the patient is here for a pulmonary follow-up visit. The patient overall has been about the same. She still complains of a cough. Has been getting worse still. Moderate severity. With some chest congestion. Also sinus pressure feels like the cough is mainly from a postnasal drip. The patient has been on nasal therapies without any significant improvement. She does have issues with tracheobronchomalacia likely contributing to her chronic cough. Will go ahead and try her on a small dose of doxycycline for 10 days to see if we can alleviate her symptoms. In the meantime she has been on the respiratory inhalers with partial improvement of the symptoms. She responds better to the nebulized therapy. Will make sure to provide the medications to the pharmacy. We also give her breathing treatment in the office. She does get replacement nebulizer since hers is broken beyond repair. 09/17/2023 the patient is here for a pulmonary follow-up visit. The patient overall has been doing well. Her cough seems to be a little better. She did have a bout of bronchitis and them sinusitis. She was treated effectively for those. She still feels like she has some chest tightness. Although she has not been using her Advair. She does have diabetes would like to prevent on too much prednisone use. I did give her a spacer in order for her to use her Advair twice a day. Issues that she his oral irritation from the Advair. Hopefully with a spacer she will tolerated better. She knows to rinse with mouthwash or salt water. In the meantime she has not been able to use her CPAP because it fell and she is not sure if is working. She does use reliable respiratory. I will send for additional supplies. Will going to have her bring the machine in so we can evaluated in the coming weeks. If the machine is not working then will have to reach out to reliable. Otherwise will try to adjusted for her for her to start using it since she needs it for her underlying sleep apnea. As far as imaging studies she did have a chest x-ray sometime last month because she did have COVID. He was read as no acute disease. Her last CT scan of the chest was back in 07/15/2022 which she had multiple pulmonary nodules largest 1 measuring 5 mm in size. Will plan to allow her to recover after having COVID months ago and then repeat her CT scan in III months' time to follow-up with the pulmonary nodules. If her nodules are stable no further follow-up is warranted. 01/04/2024 the patient is here for a pulmonary follow-up visit. Overall the patient has been doing well. She is not using the CPAP. She feels like she is sleeping okay waking up rested. Her Dolomite score is 5/24. Therefore she can continue to perform positional therapy for now. If she becomes symptomatic we can also consider repeating the sleep study. In addition to that she continues use her Advair as prescribed. She has not had to use her rescue inhaler. The patient also did have a CT scan of the chest in 10/16/2023 which we personally reviewed. It appears that her pulmonary nodules have been stable and unchanged. Therefore no additional serial CT scans warranted. If any symptoms change or any concerns then we can also consider imaging at that time. For now we can hold off on serial imaging. The patient will continue with current respiratory therapy. She will get the Prevnar 20 vaccine today. And she will follow-up with her other vaccines at the pharmacy. Patient will follow-up in a year's time. If she has any issues prior to that she will call for an earlier assessment. [facility] Medical History Dysphagia Tracheobronchomalacia ROIXE (obstructive sleep apnea) Essential hypertension Atherosclerotic cardiovascular disease Urinary incontinence Obese Dyslipidemia Anxiety and depression Gastric pain Sinusitis Chronic allergic rhinitis Asthma Cough Cough Diabetes mellitus Fibromyalgia Pulmonary nodules Surgical History H/O heart artery stent Hx of esophagogastroduodenoscopy History of bronchoscopy Hx of colonoscopy H/O left knee surgery H/O breast biopsy H/O: hysterectomy Family History Father Hypertension Mother Hypertension Diabetes Daughter Diabetes Brother No problems noted. Social History (Updated 01/04/24 @ 10:58 by Keira Meehan LPN) Household Members: Children Alcohol intake: never Patient Tobacco Use Status: Never used Tobacco Second Hand Smoke Exposure: Yes Review of Systems Const Reports fatigue, Denies fever(s), Denies headache(s), Denies night sweats and Denies weight loss Eyes Denies eye discharge and Denies irritation ENT Reports Normal hearing present, Denies dizziness, Denies headache(s), Reports nasal congestion and Reports post nasal drip Card Denies chest pain, Denies leg edema, Denies dyspnea and Denies dyspnea on exertion Resp Reports chest congestion, Reports cough, Denies dyspnea, Denies dyspnea on exertion and Denies wheezing GI Denies change in bowel habits and Reports heartburn Denies difficulty voiding and Denies dysuria Musc Denies back pain and Denies arthralgias Skin/Breast Denies pruritus, Denies rash and Denies jaundice Neuro Reports Normal hearing present, Denies Abnormal speech present, Denies dizziness, Denies headache(s) and Denies seizure-like activity Psych Denies anxiety, Denies depression and Denies panic attacks Endo Denies cold intolerance, Reports fatigue, Denies flushing and Denies heat intolerance Osman/Lymph Denies easy bleeding and Denies easy bruising Aller/Immun Denies wheezing Physical Exam Vital Signs: Last Vital Signs Pulse 100 01/04/24 10:52 BP 130/68 01/04/24 10:52 Pulse Ox 98 01/04/24 10:52 Oxygen Delivery Method Room Air 01/04/24 10:52 BMI result Body Mass Index 30.1 Const General: alert HEENT Mouth: tongue abnormal Neck Neck: Yes normal visual inspection, Yes full ROM and Yes no lymphadenopathy Chest Chest palpation & inspection: normal inspection of the chest Resp Auscultation: no wheezes and diminished lung sounds Cardio Rate: regular rate Rhythm: regular rhythm Heart sounds: S1 normal heart sound present and S2 normal heart sound present GI Palpation (GI): Soft to palpation and nontender Auscultation: normal bowel sounds Skin General skin exam: rashes and/or lesions noted Neuro Cranial nerves: Yes Normal hearing present Speech: No Abnormal speech present Immunizations pneumoc 20-magaly conj-dip cr(PF) 0.5 mL IM syringe Performing Provider: Reji Wilks MD Performing Location: [facility] [place] Pulmonology [facility] Administered by: Reji Wilks MD on 01/04/24 12:37 Dose Route Admin Location Dispensed Lot Number Expiration Date [employer] Specialist 0.5 mL IM Left Deltoid 0.5 mL [id number] 01/26/25 [employer]ZER VIS Given Date VIS Provided VIS Publication Date 01/04/24 Single Vaccine 21 Eligibility Eligibility Date Funding Source Not [facility] Eligible 01/04/24 Private Assessment & Plan Assessment & Plan (1) Asthma: Code(s): J45.909 - Unspecified asthma, uncomplicated Category: Medical Qualifiers: Asthma complication type: uncomplicated Asthma persistence: persistent Asthma severity: moderate Qualified Code(s): J45.40 - Moderate persistent asthma, uncomplicated (2) Pulmonary nodules: Code(s): R91.8 - Other nonspecific abnormal finding of lung field Category: Medical (3) ROXIE (obstructive sleep apnea): Code(s): G47.33 - Obstructive sleep apnea (adult) (pediatric) Category: Medical (4) Cough: Code(s): R05 - Cough Category: Medical Qualifiers: Cough type: chronic Qualified Code(s): R05.3 - Chronic cough (5) Chronic allergic rhinitis: Code(s): J30.9 - Allergic rhinitis, unspecified Category: Medical (6) Tracheobronchomalacia: Code(s): J39.8 - Other specified diseases of upper respiratory tract Category: Medical Plan not using APAP, full face mask, F30 continue CPT with flutter valve twice a day continue Advair HFA add spacer and then rinse with salt water continue Singulair ELAINE/DuoNebs as needed nasal spray Azelastine nasal spray CT chest stable follow-up 12 months Orders: Orders Pneumococcal 20 Immunization 01/04/24 Z23 - Encounter for immunization Coding Level of Care Code Est Pt Level 4 (75583) Diagnoses Moderate persistent asthma without complication J45.40 Asthma complication type: uncomplicated Asthma persistence: persistent Asthma severity: moderate Pulmonary nodules R91.8 ROXIE (obstructive sleep apnea) G47.33 Chronic cough R05.3 Cough type: chronic Chronic allergic rhinitis J30.9 Tracheobronchomalacia J39.8 Time Spent (min) 16
[2024-01-04 10:52] VITALS: BP 130/68; PULSE 100; O2SAT 98; BMI 30.1
== END 2024-01-04 11:15 | disposition home or self-care (01) ==
PROVIDERS: PCP Family Medicine; Visit Provider Hospitalist
DX: J45.40 Moderate persistent asthma, uncomplicated (principal); R91.8 Other nonspecific abnormal finding of lung field; G47.33 Obstructive sleep apnea (adult) (pediatric); R05.3 Chronic cough; J30.9 Allergic rhinitis, unspecified; J39.8 Other specified diseases of upper respiratory tract
CPT/HCPCS: 99214

== ENCOUNTER → 2024-01-04 10:43 | Outpatient (BNVA) | payer OTHER, SELFPAY | PROVIDERS: PCP Family Medicine; Visit Provider Hospitalist | DX: Z23 Encounter for immunization (principal); J45.40 Moderate persistent asthma, uncomplicated; R91.8 Other nonspecific abnormal finding of lung field; R05.3 Chronic cough; G47.33 Obstructive sleep apnea (adult) (pediatric); J30.9 Allergic rhinitis, unspecified; J39.8 Other specified diseases of upper respiratory tract | CPT/HCPCS: 90471; 90677; 99212 ==

== ENCOUNTER 2024-01-23 09:18 | Emergency (ER) | payer OTHER, SELFPAY ==
[2024-01-23 09:25] VITALS: BP 173/73; PULSE 80; O2SAT 97
--- NOTE | 2024-01-23 09:29 | ECG_ITS ---
Test Reason : N/V Blood Pressure : / mmHG Vent. Rate : 059 BPM Atrial Rate : 059 BPM P-R Int : 166 ms QRS Dur : 082 ms QT Int : 424 ms P-R-T Axes : 031 -25 -07 degrees QTc Int : 419 ms Sinus bradycardia Inferior infarct (cited on or before 19-AUG-2022) Abnormal ECG When compared with ECG of 03-NOV-2023 00:49, No significant change was found Referred By: Estefani Kemp Electronically Signed By:CAMI AMARAL
[2024-01-23 09:35] VITALS: BP 135/55; PULSE 60; RESP 16; TEMP 36.8; O2SAT 100; BMI 35.0
[2024-01-23 09:42] VITALS: BP 135/55; PULSE 60; RESP 16; TEMP 36.8; O2SAT 100
[2024-01-23 10:09] LABS: MANUAL DIFF FLAG NO
[2024-01-23 10:12] LABS: Basophils Absolute Auto 0.1 X10*3/uL (0.0-0.2); Basophils Percent Auto 0.8 % (0-2); Eosinophils Absolute Auto 0.1 X10*3/uL (0.0-0.4); Eosinophils Percent Auto 1.6 % (0-4); Hematocrit 40.4 % (37.0-47.0); Hemoglobin 13.6 g/dl (12.0-16.0); Imm Gran Abs Auto 0.02 X10*3/uL (0.00-0.03); Imm Gran Pct Auto 0.3 % (0.0-0.4); Lymphocytes Absolute Auto 1.5 X10*3/uL (1.2-4.9); Lymphocytes Percent Auto 24.5 % (20-40); Mean Corpuscular HGB Conc 33.7 g/dl (31.0-35.0); Mean Corpuscular Hemoglobin 30.3 pg (27.0-33.0); Mean Platelet Volume 10.7 fL (9.4-12.3); Monocytes Absolute Auto 0.4 X10*3/uL (0.1-1.2); Monocytes Percent Auto 6.7 % (2-11); Neutrophils Percent Auto 66.1 % (45-73); Platelet Count 197 X10*3/uL (160-400); Red Blood Count 4.49 X10*6/uL (4.20-5.50); Red Cell Distribution Width 12.5 % (11.0-16.0); White Blood Count 6.1 X10*3/uL (4.8-10.8)
[2024-01-23 10:20] LABS: Appearance Urine Clear; Color Urine Yellow; Glucose Urine UA Negative (Negative); Leukocyte Esterase Urine Negative (Negative); Nitrite Urine Negative (Negative); Specific Gravity - Urine <= 1.005 (1.005-1.025); Urine Blood Negative (Negative); Urine Ketones Negative (Negative); Urine Protein Negative (Neg-Trace)
[2024-01-23 10:26] LABS: Alanine Aminotransferase 39 U/L (0-31); Anion Gap 13 (12-20); Aspartate Amino Transferase 27 U/L (5-31); Bilirubin Total 0.4 mg/dL (0.0-1.0); Blood Urea Nitrogen 22 mg/dL (9-16); Calcium 9.7 mg/dL (8.4-10.2); Carbon Dioxide 26 mmol/L (22-29); Chloride 105 mmol/L (96-108); Creatinine Clr Calc Pharmacy 44.6; Estimated Glomerular Filt Rate > 60; Glucose Random 198 mg/dL (60-115); Magnesium 1.8 mg/dL (1.6-2.6); Potassium 4.5 mmol/L (3.3-5.1); Sodium 139 mmol/L (135-145); Total Protein 6.8 g/dL (6.5-8.0)
[2024-01-23 10:31] LABS: Troponin-I High Sensitivity 6.7 ng/L (<3.5-17.0)
[2024-01-23 10:49] LABS: Influenza A PCR NEGATIVE (Negative); Influenza B PCR NEGATIVE (Negative); Resp Syncy Virus RNA Qual PCR NEGATIVE (Negative); SARS COV2 PCR INHOUSE NEGATIVE (Negative)
[2024-01-23 10:57] LABS: Alkaline Phosphatase 49 U/L (39-117)
[2024-01-23] MEDS: Ondansetron ODT 4 MG TAB.RAPDIS TRANSLINGU (12:46)
[2024-01-23 13:18] LABS: Troponin-I High Sensitivity 7.4 ng/L (<3.5-17.0)
--- NOTE | 2024-01-23 13:24 | ED.GENADULT ---
HPI - General Adult General Chief complaint: Nausea/Vomiting/Diarrhea Stated complaint: NAUSEA,HIGH BP 178/82 PER EMS Time Seen by Provider: 01/23/24 11:16 Source: patient, RN notes reviewed and old records reviewed Mode of arrival: ambulatory History of Present Illness ED Provider: Gila Hilario PA-C HPI narrative: 78-year-old Japanese-speaking female with a past medical history ROXIE, tracheobronchial malacia, ACS, HLD, anxiety, depression, asthma, diabetes, fibromyalgia, presenting to the ED complaining of nausea, constipation, and epigastric abdominal discomfort since this morning. Reports chronic constipation which she takes OTC medication for. States was having difficulty having BM this morning, had much straining, but BM was successful however afterwards took blood pressure and was elevated. Admits to taking BP medication this morning. Denies headache or chest pain. Denies rectal pain, lightheadedness/dizziness, vomiting, diarrhea, bloody/black stool, urinary symptoms. Related Data Home Medications ?Medication ?Instructions ?Recorded ?Confirmed lancets (OneTouch UltraSoft #100 ea 01/06/20 11/13/23 Lancets) pen needle, diabetic 32 gauge x #50 ea 08/17/20 11/13/23 simethicone 125 mg capsule (Gas 0 mg PO 11/26/20 11/13/23 Relief Extra Strength) spironolactone 25 mg tablet 25 mg PO DAILY 11/26/20 11/13/23 latanoprost 0.005 % eye drops 1 drp ophthalmic (eye) BEDTIME 07/26/22 11/13/23 pioglitazone 45 mg tablet 45 mg PO DAILY 11/21/22 11/13/23 carvedilol 3.125 mg tablet 3.125 mg PO BID 06/18/23 11/13/23 sertraline 25 mg tablet 50 mg PO DAILY 06/18/23 11/13/23 sertraline 50 mg tablet 50 mg PO DAILY 06/18/23 11/13/23 hydrocortisone 2.5 % topical topical 08/16/23 11/13/23 ointment ipratropium bromide 21 mcg (0.03 intranasal 08/16/23 01/04/24 %) nasal spray insulin glargine 100 unit/mL (3 20 unit subcut DAILY 08/14/24 09/17/24 mL) subcutaneous pen (Lantus Solostar U-100 Insulin) rosuvastatin 40 mg tablet 40 mg PO DAILY 10/10/23 11/13/23 Previous Rx's ?Medication ?Instructions ?Recorded blood sugar diagnostic (OneTouch #100 ea 01/07/20 Verio test strips) blood-glucose meter (OneTouch #1 ea 01/07/20 Verio Meter) mirabegron 25 mg tablet,extended 25 mg PO DAILY 30 days #30 tabs 10/28/20 release 24 hr (Myrbetriq) inhalational spacing device #1 ea 01/25/21 (Aerochamber MV spacer) albuterol sulfate 90 mcg/actuation 2 puff PO Q4H PRN for wheezing 30 11/21/22 aerosol inhaler (Ventolin HFA) days #18 ea budesonide 32 mcg/actuation nasal 2 spray intranasal DAILY 30 days 11/21/22 spray #8.43 mL ipratropium 0.5 mg-albuterol 3 mg 3 ml inhalation Q6H PRN for 03/30/23 (2.5 mg base)/3 mL nebulization wheezing #180 mL soln budesonide 0.5 mg/2 mL suspension 0.5 mg (2 mL) inhalation BID 30 05/21/23 for nebulization days #120 mL acetaminophen 500 mg tablet 500 mg PO Q6H PRN fever or pain 08/10/23 #14 tabs benzonatate 200 mg capsule 200 mg PO TID PRN cough #10 caps 08/16/23 sennosides 8.6 mg-docusate sodium 2 tab-cap (2 x 8.6-50 mg) PO 08/16/23 50 mg tablet (Senna with Docusate BEDTIME PRN constipation 60 days Sodium) #120 tabs clopidogrel 75 mg tablet (Plavix) 75 mg PO DAILY #90 tabs 10/10/23 evolocumab 140 mg/mL subcutaneous 140 mg subcut Q2W #2 mL 10/11/23 pen injector (Tracy Alejandre) famotidine 20 mg tablet 20 mg PO BID 30 days #60 tabs 11/13/23 cyclobenzaprine 10 mg tablet 10 mg PO Q8H #20 tabs 11/15/23 tramadol 50 mg tablet 50 mg PO Q6H PRN pain #20 tabs 11/15/23 oxycodone 5 mg tablet 5 mg PO BID PRN pain #7 tabs 11/16/23 fluticasone propionate 115 2 puff PO Q12H #12 ea 12/11/23 mcg-salmeterol 21 mcg/actuation HFA inhaler (Advair HFA) Allergies Allergy/AdvReac Type Severity Reaction Status Date / Time fluticasone [Flovent HFA] Allergy Unknown lip Verified 01/23/24 09:39 swelling lisinopril Allergy Itching Verified 01/23/24 09:39 umeclidinium AdvReac Intermediate Chest Pain Verified 01/23/24 09:39 [From Incruse Ellipta] empagliflozin [Jardiance] AdvReac Unknown vaginal Verified 01/23/24 09:39 itch metformin AdvReac Unknown stomach Verified 01/23/24 09:39 pain sitagliptin [Januvia] AdvReac Unknown stomach Verified 01/23/24 09:39 pain acetaminophen [From Percocet] AdvReac Nausea and Verified 01/23/24 09:39 Vomiting hydrocodone [From Vicodin] AdvReac Nausea and Verified 01/23/24 09:39 Vomiting ibuprofen [From Motrin] AdvReac Stomach Verified 01/23/24 09:39 Upset oxycodone [From Percocet] AdvReac Nausea and Verified 01/23/24 09:39 Vomiting Review of Systems Review of Systems: Yes all other systems are reviewed and are negative Constitutional: Constitutional: Reports as per [facility] Past Medical History Attestation statement: The following information was validated with the patient. Source: old records reviewed Medical History Dysphagia Tracheobronchomalacia ROXIE (obstructive sleep apnea) Essential hypertension Atherosclerotic cardiovascular disease Urinary incontinence Obese Dyslipidemia Anxiety and depression Gastric pain Sinusitis Chronic allergic rhinitis Asthma Cough Cough Diabetes mellitus Fibromyalgia Pulmonary nodules Surgical History H/O heart artery stent Hx of esophagogastroduodenoscopy History of bronchoscopy Hx of colonoscopy H/O left knee surgery H/O breast biopsy H/O: hysterectomy Family History Family History Father Hypertension Mother Hypertension Diabetes Daughter Diabetes Brother No problems noted. Social History Social History Household Members: Children Alcohol intake: never Patient Tobacco Use Status: Never used Tobacco Smoked in Last 30 Days: No Second Hand Smoke Exposure: Yes Use of substances other than those prescribed or required for medical reasons: No Advance Directives: No Advance Directives Information Provided: Yes Do you have a plan to hurt others: No Plan Physical Exam ED Vital Signs: Vital Signs - 24 hr 01/23/24 09:35 01/23/24 09:42 01/23/24 14:19 Temperature 98.3 F 98.3 F 98 F Pulse Rate 60 60 61 Respiratory Rate 16 16 16 Blood Pressure 135/55 L 135/55 L 139/56 L Pulse Oximetry 100 100 98 Oxygen Delivery Method Room Air Room Air Room Air 01/23/24 14:26 Temperature 98 F Pulse Rate 61 Respiratory Rate 16 Blood Pressure 139/56 L Pulse Oximetry 98 Oxygen Delivery Method Room Air BMI result Body Mass Index 35.0 Const General: cooperative, healthy appearing and no acute distress Orientation/consciousness: patient oriented x3 Limitations: no limitations HENMT Head: Yes normal to inspection and Yes atraumatic Ears: hearing grossly normal bilaterally General nose exam: Normal external nose present Face and sinus: Yes normal facial exam Eyes General: appearance normal, both eyes and all related structures EOM: EOMs intact bilaterally Neck Neck: Yes normal visual inspection and Yes no meningeal signs Resp Effort & Inspection: normal respiratory effort and no respiratory distress Auscultation: clear to auscultation bilaterally and no wheezes Cardio Rate: regular rate Heart sounds: S1 normal heart sound present and S2 normal heart sound present GI Inspection: Yes normal to inspection Palpation (GI): Soft to palpation, nontender, no guarding and not rigid General: Yes no CVA tenderness Back/Spine/Pelvis Back: no CVA tenderness Skin Rashes: no rashes Wounds: no wounds Neuro General: patient oriented x3, tone normal, moves all extremities and no meningeal signs Cranial nerves: Yes CN's II-XII intact bilaterally Gait exam (Neuro): Normal gait present Extrem General: Yes normal to inspection Course Course Course Narrative: -1345--no leukocytosis. H/H stable. BUN chronically elevated -initial troponin 6.7 > repeat 7.4, without delta, [place] unlikely -UA negative -viral studies negative > patient tolerating p.o. in the ED without difficulty Results discussed with patient including worrisome signs and symptoms and strict return precautions, and when to return to the emergency department. They verbalized understanding and feel safe for discharge at this time. Medications Administered Discontinued Medications Generic Name Dose Route Start Last Admin Trade Name Marla PRN Reason Stop Dose Admin Ondansetron HCl 4 mg 01/23/24 12:14 01/23/24 12:46 Ondansetron Odt 4 Mg Tab.Rapdis TRANSLINGU 01/23/24 12:15 4 mg ONCE ONE Administration Medical Decision Making Medical Decision Making MDM Narrative: 78-year-old Japanese-speaking female with a past medical history ROXIE, tracheobronchial malacia, ACS, HLD, anxiety, depression, asthma, diabetes, fibromyalgia, presenting to the ED complaining of nausea, constipation, and epigastric abdominal discomfort since this morning. On exam normotensive, NAD, nontoxic appearing, abdomen soft/nontender, no focal deficits. Concern for acute on chronic constipation vs atypical ACS vs gastroenteritis. Lower suspicion for cholecystitis/lithiasis, pancreatitis, SBO, fecal impaction Plan: EKG, labs, UA, p.o. trial Please refer to course for remaining clinical decision making, interpretation of labs/imaging results, and discussions with consultants and/or family members. Differential Diagnosis Differential Diagnoses: The differential diagnosis associated with the presentation includes As above Admission/Observation Consideration of admission/observation: Escalation of care including admission/observation considered Lab Data [facility] Lab Attestation statement: I reviewed the patient's lab results. 01/23/24 10:02 01/23/24 10:02 Labs: Lab Results 01/23/24 01/23/24 01/23/24 Range/Units 10:02 10:15 12:52 WBC 6.1 (4.8-10.8) X10*3/uL RBC 4.49 (4.20-5.50) X10*6/uL Hgb 13.6 (12.0-16.0) g/dl Hct 40.4 (37.0-47.0) % MCV 90.0 (80.0-98.0) fL MCH 30.3 (27.0-33.0) pg MCHC 33.7 (31.0-35.0) g/dl RDW 12.5 (11.0-16.0) % Plt Count 197 (160-400) X10*3/uL MPV 10.7 (9.4-12.3) fL Immature Gran % (Auto) 0.3 (0.0-0.4) % Neut % (Auto) 66.1 (45-73) % Lymph % (Auto) 24.5 (20-40) % [place] % (Auto) 6.7 (2-11) % Eos % (Auto) 1.6 (0-4) % Baso % (Auto) 0.8 (0-2) % Lymph # (Auto) 1.5 (1.2-4.9) X10*3/uL [place] # (Auto) 0.4 (0.1-1.2) X10*3/uL Eos # (Auto) 0.1 (0.0-0.4) X10*3/uL Baso # (Auto) 0.1 (0.0-0.2) X10*3/uL Abs Immat Gran (auto) 0.02 (0.00-0.03) X10*3/uL Absolute Neuts (auto) 4.0 (2.0-8.3) x10*3/uL Absolute Nucleated RBC 0.000 (0.0-0.012) X10*3/uL Nucleated RBC % (auto) 0.0 (0.0-0.2) /100WBC Sodium 139 (135-145) mmol/L Potassium 4.5 (3.3-5.1) mmol/L Chloride 105 (96-108) mmol/L Carbon Dioxide 26 (22-29) mmol/L Anion Gap 13 (12-20) BUN 22 H (9-16) mg/dL Creatinine 0.86 (0.5-1.4) mg/dL Estim Creat Clear Calc 44.6 Estimated GFR > 60 Random Glucose 198 H (60-115) mg/dL Calcium 9.7 (8.4-10.2) mg/dL Magnesium 1.8 (1.6-2.6) mg/dL Total Bilirubin 0.4 (0.0-1.0) mg/dL AST 27 (5-31) U/L ALT 39 H (0-31) U/L Alkaline Phosphatase 49 (39-117) U/L Troponin I High Sens 6.7 D 7.4 (<3.5-17.0) ng/L Total Protein 6.8 (6.5-8.0) g/dL Albumin 4.0 (3.5-5.0) g/dL Urine Color Yellow Urine Appearance Clear Urine pH 6.0 (5.0-9.0) Ur Specific [place] <= 1.005 (1.005-1.025) Urine Protein Negative (Neg-Trace) mg/dL Urine Glucose (UA) Negative (Negative) mg/dL Urine Ketones Negative (Negative) mg/dL Urine Blood Negative (Negative) Urine Nitrite Negative (Negative) Ur Leukocyte Esterase Negative (Negative) Influenza Type A (PCR) NEGATIVE (Negative) Influenza Type B (PCR) NEGATIVE (Negative) RSV RNA Qual (PCR) NEGATIVE (Negative) SARS-CoV-2 RNA (RT-PCR) NEGATIVE (Negative) Independent Interpretation I performed an independent interpretation of an: EKG (My interpretation EKG sinus bradycardia rate of 59. AL interval 166. QTC 419. No significant change when compared to prior) Radiology Impression Discussion of test interpretation with radiology: I have reviewed the radiologist's reading. External Record Review External record reviewed: Inpatient record, Office record, Outpatient record, Prior outpatient labs, Prior outpatient radiology, Primary care record and Outside ED record Tests considered The following testing was considered but not selected: As above Chronic Conditions Patient?s care impacted by: Other Social Determinants Patient?s care significantly limited by Social Determinants of Health including: Other Social Determinant of Health Discharge Plan Discharge Clinical Impression: Nausea, Constipation Patient Disposition: Home, Self-Care Instructions: Constipation (DC), Acute Nausea and Vomiting (ED) Additional Instructions: Your blood work is reassuring. Please have close follow up with her doctor If you do not have a bowel movement in the next 48 hours please return to the emergency department If you continue to have nausea, you are unable to eat or drink, have fever return to the ED Call your doctor for close follow-up Prescriptions: No Action (DME) lancets [OneTouch UltraSoft Lancets] [facility] [place] .R[place]TE .MEDSUPPLY Qty: 100 Rx Instructions: As directed (DME) blood-glucose meter [OneTouch Verio Meter] Misc See Rx Instructions .ROUTE .MEDSUPPLY Qty: 1 0RF Rx Instructions: As directed (DME) OneTouch Verio test strips Strip See Rx Instructions .ROUTE .MEDSUPPLY Qty: 100 0RF Rx Instructions: As directed Myrbetriq 25 mg tablet extended release 24 hr 25 mg PO DAILY 30 Days Qty: 30 1RF (DME) Aerochamber MV Spacer See Rx Instructions .ROUTE .MEDSUPPLY Qty: 1 0RF Rx Instructions: As directed ipratropium-albuterol 0.5 mg-3 mg(2.5 mg base)/3 mL solution for nebulization 3 ml inhalation Q6H PRN (Reason: for wheezing) Qty: 180 2RF Repatha SureClick 140 mg/mL pen injector 140 mg subcut Q2W Qty: 2 2RF fluticasone propion-salmeterol [Advair HFA] 115-21 mcg/actuation HFA aerosol inhaler 2 puff PO Q12H Qty: 12 11RF acetaminophen 500 mg tablet 500 mg PO Q6H PRN (Reason: fever or pain) Qty: 14 0RF benzonatate 200 mg capsule 200 mg PO TID PRN (Reason: cough) Qty: 10 0RF cyclobenzaprine 10 mg tablet 10 mg PO Q8H Qty: 20 0RF tramadol 50 mg tablet 50 mg PO Q6H PRN (Reason: pain) Qty: 20 0RF oxycodone 5 mg tablet 5 mg PO BID PRN (Reason: pain) Qty: 7 0RF Rx Instructions: Partial Fill upon patient request. simethicone [Gas Relief Extra Strength] 125 mg capsule 0 mg PO spironolactone 25 mg tablet 25 mg PO DAILY sertraline 25 mg tablet 50 mg PO DAILY (DME) pen needle, diabetic 32 gauge x /32 needle See Rx Instructions .ROUTE .MEDSUPPLY Qty: 50 Rx Instructions: As directed pioglitazone 45 mg tablet 45 mg PO DAILY albuterol sulfate [Ventolin HFA] 90 mcg/actuation HFA aerosol inhaler 2 puff PO Q4H PRN (Reason: for wheezing) 30 Days Qty: 18 6RF budesonide 32 mcg/actuation spray,non-aerosol 2 spray intranasal DAILY 30 Days Qty: 8.43 7RF Rx Instructions: administer into each nostril budesonide 0.5 mg/2 mL suspension for nebulization 0.5 mg inhalation BID 30 Days Qty: 120 11RF Lantus Solostar U-100 Insulin 100 unit/mL (3 mL) insulin pen 20 unit subcut DAILY rosuvastatin 40 mg tablet 40 mg PO DAILY clopidogrel [Plavix] 75 mg tablet 75 mg PO DAILY Qty: 90 3RF famotidine 20 mg tablet 20 mg PO BID 30 Days Qty: 60 3RF latanoprost 0.005 % drops 1 drp ophthalmic (eye) BEDTIME carvedilol 3.125 mg tablet 3.125 mg PO BID sertraline 50 mg tablet 50 mg PO DAILY ipratropium bromide 21 mcg (0.03 %) spray,non-aerosol intranasal hydrocortisone 2.5 % ointment topical sennosides-docusate sodium [Senna with Docusate Sodium] 8.6-50 mg tablet 2 tab-cap PO BEDTIME PRN (Reason: constipation) 60 Days Qty: 120 2RF Rx Instructions: Please take every other day at bedtime Referrals: ED Physician,Generic [Physician] - Liset Mitchell MD [Primary Care Provider] - 3 days Interventions: ED Discharge Assessment Last Done: 01/23/24 14:26 Discharge Date/Time: 01/23/24 14:26 Print Language: Japanese
--- NOTE | 2024-01-23 14:15 | PC.NURSE ---
Awaiting carpentry supervisor for d/c assistance
[2024-01-23 14:19] VITALS: BP 139/56; PULSE 61; RESP 16; TEMP 36.6; O2SAT 98
[2024-01-23 14:26] VITALS: BP 139/56; PULSE 61; RESP 16; TEMP 36.6; O2SAT 98
== END 2024-01-23 14:26 | disposition home or self-care (01) ==
PROVIDERS: Physician Assistant; Physician Assistant Medical; Emergency Provider Emergency Medicine Emergency Medical Services; PCP Family Medicine
DX: R11.0 Nausea (principal); K59.00 Constipation, unspecified; Z03.818 Encounter for observation for suspected exposure to other biological agents ruled out; E11.9 Type 2 diabetes mellitus without complications; I10 Essential (primary) hypertension; E78.5 Hyperlipidemia, unspecified; J45.909 Unspecified asthma, uncomplicated; Z79.4 Long term (current) use of insulin; Z79.02 Long term (current) use of antithrombotics/antiplatelets; Z79.899 Other long term (current) drug therapy
CPT/HCPCS: 0241U; 36415; 80053; 81003; 83735; 84484; 85025; 93005; 99283; 99284

== ENCOUNTER → 2024-01-23 09:29 | Outpatient (BNV) | payer OTHER, SELFPAY | PROVIDERS: Emergency Provider Emergency Medicine Emergency Medical Services; PCP Family Medicine; Visit Provider Internal Medicine | DX: R00.1 Bradycardia, unspecified (principal); R94.31 Abnormal electrocardiogram [ECG] [EKG] | CPT/HCPCS: 93010 ==

== ENCOUNTER 2024-01-28 15:19 | Emergency (ER) | payer OTHER, SELFPAY ==
[2024-01-28 15:46] VITALS: BP 187/87
[2024-01-28 15:56] VITALS: BP 145/71; PULSE 66; RESP 16; TEMP 36.4; O2SAT 99; BMI 30.1
--- NOTE | 2024-01-28 16:28 | ED_ITS ---
HPI - General Adult General Chief complaint: General Medical Stated complaint: HIGH BP 177/100,L SIDED NUMBNESS PER EMS Time Seen by Provider: 01/28/24 15:55 History of Present Illness ED Provider: Scot DAVIDSON narrative: The patient is a 78-year-old woman who has a history of coronary disease. I believe she had an NSTEMI in June of 2022. I believe she was seen at [facility] and transferred to [facility]. Apparently she was seen by Cardiac surgery for consideration of a CABG but she was not interested. She had cardiac catheterization and had angioplasty I think of the RCA and the LAD according to cardiology records. She has been on Brilinta following the procedure. The patient called an ambulance today because she had some numbness on the left side of her cheek. She then checked her blood pressure and it was high. She then called an ambulance and was brought to the hospital. She did not have a headache at the time. She does not have any chest pain. She does not have any shortness of breath. She does not have any abdominal pain, nausea, vomiting. The facial numbness that she had earlier has subsequently subsided. She does not have any weakness or numbness in her extremities. She did not have any difficulty speaking. Related Data Home Medications ?Medication ?Instructions ?Recorded ?Confirmed lancets (OneTouch UltraSoft #100 ea 01/06/20 11/13/23 Lancets) pen needle, diabetic 32 gauge x #50 ea 08/17/20 11/13/23 simethicone 125 mg capsule (Gas 0 mg PO 11/26/20 11/13/23 Relief Extra Strength) spironolactone 25 mg tablet 25 mg PO DAILY 11/26/20 11/13/23 latanoprost 0.005 % eye drops 1 drp ophthalmic (eye) BEDTIME 07/26/22 11/13/23 pioglitazone 45 mg tablet 45 mg PO DAILY 11/21/22 11/13/23 carvedilol 3.125 mg tablet 3.125 mg PO BID 06/18/23 11/13/23 sertraline 25 mg tablet 50 mg PO DAILY 06/18/23 11/13/23 sertraline 50 mg tablet 50 mg PO DAILY 06/18/23 11/13/23 hydrocortisone 2.5 % topical topical 08/16/23 11/13/23 ointment ipratropium bromide 21 mcg (0.03 intranasal 08/16/23 01/04/24 %) nasal spray insulin glargine 100 unit/mL (3 20 unit subcut DAILY 10/10/23 11/13/23 mL) subcutaneous pen (Lantus Solostar U-100 Insulin) rosuvastatin 40 mg tablet 40 mg PO DAILY 10/10/23 11/13/23 Previous Rx's ?Medication ?Instructions ?Recorded blood sugar diagnostic (OneTouch #100 ea 01/07/20 Verio test strips) blood-glucose meter (OneTouch #1 ea 01/07/20 Verio Meter) mirabegron 25 mg tablet,extended 25 mg PO DAILY 30 days #30 tabs 10/28/20 release 24 hr (Myrbetriq) inhalational spacing device #1 ea 01/25/21 (Aerochamber MV spacer) albuterol sulfate 90 mcg/actuation 2 puff PO Q4H PRN for wheezing 30 11/21/22 aerosol inhaler (Ventolin HFA) days #18 ea budesonide 32 mcg/actuation nasal 2 spray intranasal DAILY 30 days 11/21/22 spray #8.43 mL ipratropium 0.5 mg-albuterol 3 mg 3 ml inhalation Q6H PRN for 03/30/23 (2.5 mg base)/3 mL nebulization wheezing #180 mL soln budesonide 0.5 mg/2 mL suspension 0.5 mg (2 mL) inhalation BID 30 05/21/23 for nebulization days #120 mL acetaminophen 500 mg tablet 500 mg PO Q6H PRN fever or pain 08/10/23 #14 tabs benzonatate 200 mg capsule 200 mg PO TID PRN cough #10 caps 08/16/23 sennosides 8.6 mg-docusate sodium 2 tab-cap (2 x 8.6-50 mg) PO 08/16/23 50 mg tablet (Senna with Docusate BEDTIME PRN constipation 60 days Sodium) #120 tabs clopidogrel 75 mg tablet (Plavix) 75 mg PO DAILY #90 tabs 10/10/23 evolocumab 140 mg/mL subcutaneous 140 mg subcut Q2W #2 mL 10/11/23 pen injector (Tracy Alejandre) famotidine 20 mg tablet 20 mg PO BID 30 days #60 tabs 11/13/23 cyclobenzaprine 10 mg tablet 10 mg PO Q8H #20 tabs 11/15/23 tramadol 50 mg tablet 50 mg PO Q6H PRN pain #20 tabs 11/15/23 oxycodone 5 mg tablet 5 mg PO BID PRN pain #7 tabs 11/16/23 fluticasone propionate 115 2 puff PO Q12H #12 ea 12/11/23 mcg-salmeterol 21 mcg/actuation HFA inhaler (Advair HFA) Allergies Allergy/AdvReac Type Severity Reaction Status Date / Time fluticasone [Flovent HFA] Allergy Unknown lip Verified 01/28/24 15:56 swelling lisinopril Allergy Itching Verified 01/28/24 15:56 umeclidinium AdvReac Intermediate Chest Pain Verified 01/28/24 15:56 [From Incruse Ellipta] empagliflozin [Jardiance] AdvReac Unknown vaginal Verified 01/28/24 15:56 itch metformin AdvReac Unknown stomach Verified 01/28/24 15:56 pain sitagliptin [Januvia] AdvReac Unknown stomach Verified 01/28/24 15:56 pain acetaminophen [From Percocet] AdvReac Nausea and Verified 01/28/24 15:56 Vomiting hydrocodone [From Vicodin] AdvReac Nausea and Verified 01/28/24 15:56 Vomiting ibuprofen [From Motrin] AdvReac Stomach Verified 01/28/24 15:56 Upset oxycodone [From Percocet] AdvReac Nausea and Verified 01/28/24 15:56 Vomiting Review of Systems 2 Review of Systems: Yes all other systems are reviewed and are negative [facility] Past Medical History Medical History Dysphagia Tracheobronchomalacia ROXIE (obstructive sleep apnea) Essential hypertension Atherosclerotic cardiovascular disease Urinary incontinence Obese Dyslipidemia Anxiety and depression Gastric pain Sinusitis Chronic allergic rhinitis Asthma Cough Cough Diabetes mellitus Fibromyalgia Pulmonary nodules Surgical History H/O heart artery stent Hx of esophagogastroduodenoscopy History of bronchoscopy Hx of colonoscopy H/O left knee surgery H/O breast biopsy H/O: hysterectomy Family History Family History Father Hypertension Mother Hypertension Diabetes Daughter Diabetes Brother No problems noted. Social History Social History Household Members: Children Alcohol intake: never Patient Tobacco Use Status: Never used Tobacco Second Hand Smoke Exposure: Yes Advance Directives: No Advance Directives Information Provided: Yes Do you have a plan to hurt others: No Plan Physical Exam ED Vital Signs: Vital Signs - 24 hr 01/28/24 15:56 01/28/24 18:02 01/28/24 19:50 Temperature 97.6 F 98.3 F 97.9 F Pulse Rate 66 82 86 Respiratory Rate 16 16 16 Blood Pressure 145/71 H 131/89 128/56 L Pulse Oximetry 99 97 99 Oxygen Delivery Method Room Air Room Air Room Air BMI result Body Mass Index 30.1 Const Other: The patient is awake, alert, pleasant, cooperative. She does not appear in any distress. She has a cheerful demeanor. HENMT Other: Face is symmetrical. Tongue is midline. Sensation is intact. Eyes Other: Extraocular movements intact General: appearance normal, both eyes and all related structures Neck Neck: Yes no JVD Resp Effort & Inspection: normal respiratory effort Auscultation: clear to auscultation bilaterally Cardio Rate: regular rate Rhythm: regular rhythm Heart sounds: S1 normal heart sound present and S2 normal heart sound present GI Other: Abdomen is soft and nontender Skin Other: Skin is dry and unremarkable Neuro Other: The patient is awake and alert with a normal mental status. Cranial nerves 2-12 are intact. She moves her extremities normally. There is no pronator drift. She seems neurologically intact. Extrem Other: No calf swelling or tenderness Medical Decision Making Medical Decision Making MDM Narrative: The patient is a 78-year-old woman who has a history of coronary disease. She has had PCI in the past. She called 911 after she checked her blood pressure and it was high. She says that she had had a little bit of a sense of numbness on the left side of her face and this prompted her to check her blood pressure. This sense of numbness has since resolved. She does not have any other symptoms. Overall this seems to be essentially asymptomatic hypertension. She was asking if she could have an echocardiogram because she has an echocardiogram scheduled and she wondered if she could have a done today. Overall my impression for an acute coronary syndrome today is low. Her EKG is unchanged. We will check her troponins. I anticipate she will likely rule out for an acute coronary syndrome. She is not markedly hypertensive here in the emergency room. The patient remained symptom-free in the emergency department. Her blood pressure came down to 128/56. Her troponins are flat. The patient was very anxious about her health. She said that she has been at the [facility] Emergency room 2 days ago because of a similar complaint. She says the only medication she is on for her blood pressure is spironolactone. She is very worried that her blood pressure goes up and down a lot. She is advised to follow up with her regular doctors. Lab Data 01/28/24 16:46 01/28/24 16:46 Labs: Lab Results 01/28/24 01/28/24 Range/Units 16:46 18:42 WBC 7.6 (4.8-10.8) X10*3/uL RBC 4.51 (4.20-5.50) X10*6/uL Hgb 13.9 (12.0-16.0) g/dl Hct 39.2 (37.0-47.0) % MCV 86.9 (80.0-98.0) fL MCH 30.8 (27.0-33.0) pg MCHC 35.5 H (31.0-35.0) g/dl RDW 12.6 (11.0-16.0) % Plt Count 205 (160-400) X10*3/uL MPV 10.4 (9.4-12.3) fL Immature Gran % (Auto) 0.4 (0.0-0.4) % Neut % (Auto) 63.4 (45-73) % Lymph % (Auto) 27.9 (20-40) % [place] % (Auto) 6.3 (2-11) % Eos % (Auto) 1.5 (0-4) % Baso % (Auto) 0.5 (0-2) % Lymph # (Auto) 2.1 (1.2-4.9) X10*3/uL [place] # (Auto) 0.5 (0.1-1.2) X10*3/uL Eos # (Auto) 0.1 (0.0-0.4) X10*3/uL Baso # (Auto) 0.0 (0.0-0.2) X10*3/uL Abs Immat Gran (auto) 0.03 (0.00-0.03) X10*3/uL Absolute Neuts (auto) 4.8 (2.0-8.3) x10*3/uL Absolute Nucleated RBC 0.000 (0.0-0.012) X10*3/uL Nucleated RBC % (auto) 0.0 (0.0-0.2) /100WBC Sodium 139 (135-145) mmol/L Potassium 4.3 (3.3-5.1) mmol/L Chloride 107 (96-108) mmol/L Carbon Dioxide 26 (22-29) mmol/L Anion Gap 10 L (12-20) BUN 23 H (9-16) mg/dL Creatinine 0.88 (0.5-1.4) mg/dL Estim Creat Clear Calc 44.0 Estimated GFR > 60 Random Glucose 150 H (60-115) mg/dL Calcium 9.8 (8.4-10.2) mg/dL Total Bilirubin 0.3 (0.0-1.0) mg/dL Direct Bilirubin 0.1 (0.0-0.5) mg/dL AST 29 (5-31) U/L ALT 31 (0-31) U/L Alkaline Phosphatase 56 (39-117) U/L Troponin I High Sens 8.4 10.3 (<3.5-17.0) ng/L B-Natriuretic Peptide 20 (<100) pg/mL Total Protein 7.2 (6.5-8.0) g/dL Albumin 4.1 (3.5-5.0) g/dL Independent Interpretation I performed an independent interpretation of an: EKG Interpretation: EKG at 16:34 shows normal sinus rhythm with a sinus arrhythmia at 70 beats per minute. No acute ischemic changes. No change from previous. Discharge Plan Discharge Clinical Impression: Left facial numbness, Hypertension Patient Disposition: Home, Self-Care Additional Instructions: Your testing in the emergency room today is reassuring. There is no sign of a heart attack. Please continue your regular medications. Please follow up with your regular doctors. Return to the emergency room if you feel significantly worse. Prescriptions: No Action (DME) lancets [OneTouch UltraSoft Lancets] Misc See Rx Instructions .ROUTE .MEDSUPPLY Qty: 100 Rx Instructions: As directed (DME) blood-glucose meter [OneTouch Verio Meter] Misc See Rx Instructions .ROUTE .MEDSUPPLY Qty: 1 0RF Rx Instructions: As directed (DME) OneTouch Verio test strips Strip See Rx Instructions .ROUTE .MEDSUPPLY Qty: 100 0RF Rx Instructions: As directed Myrbetriq 25 mg tablet extended release 24 hr 25 mg PO DAILY 30 Days Qty: 30 1RF (DME) Aerochamber MV Spacer See Rx Instructions .ROUTE .MEDSUPPLY Qty: 1 0RF Rx Instructions: As directed ipratropium-albuterol 0.5 mg-3 mg(2.5 mg base)/3 mL solution for nebulization 3 ml inhalation Q6H PRN (Reason: for wheezing) Qty: 180 2RF Repatha SureClick 140 mg/mL pen injector 140 mg subcut Q2W Qty: 2 2RF fluticasone propion-salmeterol [Advair HFA] 115-21 mcg/actuation HFA aerosol inhaler 2 puff PO Q12H Qty: 12 11RF acetaminophen 500 mg tablet 500 mg PO Q6H PRN (Reason: fever or pain) Qty: 14 0RF benzonatate 200 mg capsule 200 mg PO TID PRN (Reason: cough) Qty: 10 0RF cyclobenzaprine 10 mg tablet 10 mg PO Q8H Qty: 20 0RF tramadol 50 mg tablet 50 mg PO Q6H PRN (Reason: pain) Qty: 20 0RF oxycodone 5 mg tablet 5 mg PO BID PRN (Reason: pain) Qty: 7 0RF Rx Instructions: Partial Fill upon patient request. simethicone [Gas Relief Extra Strength] 125 mg capsule 0 mg PO spironolactone 25 mg tablet 25 mg PO DAILY sertraline 25 mg tablet 50 mg PO DAILY (DME) pen needle, diabetic 32 gauge x 5/32 needle See Rx Instructions .ROUTE .MEDSUPPLY Qty: 50 Rx Instructions: As directed pioglitazone 45 mg tablet 45 mg PO DAILY albuterol sulfate [Ventolin HFA] 90 mcg/actuation HFA aerosol inhaler 2 puff PO Q4H PRN (Reason: for wheezing) 30 Days Qty: 18 6RF budesonide 32 mcg/actuation spray,non-aerosol 2 spray intranasal DAILY 30 Days Qty: 8.43 7RF Rx Instructions: administer into each nostril budesonide 0.5 mg/2 mL suspension for nebulization 0.5 mg inhalation BID 30 Days Qty: 120 11RF Lantus Solostar U-100 Insulin 100 unit/mL (3 mL) insulin pen 20 unit subcut DAILY rosuvastatin 40 mg tablet 40 mg PO DAILY clopidogrel [Plavix] 75 mg tablet 75 mg PO DAILY Qty: 90 3RF famotidine 20 mg tablet 20 mg PO BID 30 Days Qty: 60 3RF latanoprost 0.005 % drops 1 drp ophthalmic (eye) BEDTIME carvedilol 3.125 mg tablet 3.125 mg PO BID sertraline 50 mg tablet 50 mg PO DAILY ipratropium bromide 21 mcg (0.03 %) spray,non-aerosol intranasal hydrocortisone 2.5 % ointment topical sennosides-docusate sodium [Senna with Docusate Sodium] 8.6-50 mg tablet 2 tab-cap PO BEDTIME PRN (Reason: constipation) 60 Days Qty: 120 2RF Rx Instructions: Please take every other day at bedtime Referrals: Liset Mitchell MD [Primary Care Provider] - (Hypertension) Print Language: Taiwanese
--- NOTE | 2024-01-28 16:29 | ECG_ITS ---
Test Reason : HIGH BLOOD PRESSURE Blood Pressure : / mmHG Vent. Rate : 070 BPM Atrial Rate : 070 BPM P-R Int : 166 ms QRS Dur : 082 ms QT Int : 404 ms P-R-T Axes : 048 -27 004 degrees QTc Int : 436 ms Normal sinus rhythm with sinus arrhythmia Inferior infarct (cited on or before 19-AUG-2022) Anterior infarct , age undetermined Abnormal ECG When compared with ECG of 23-JAN-2024 09:41, No significant change was found Referred By: Cole Ellison Electronically Signed By:Ray May
[2024-01-28 16:50] LABS: MANUAL DIFF FLAG NO
[2024-01-28 16:51] LABS: Basophils Percent Auto 0.5 % (0-2); Eosinophils Absolute Auto 0.1 X10*3/uL (0.0-0.4); Eosinophils Percent Auto 1.5 % (0-4); Hematocrit 39.2 % (37.0-47.0); Hemoglobin 13.9 g/dl (12.0-16.0); Imm Gran Abs Auto 0.03 X10*3/uL (0.00-0.03); Imm Gran Pct Auto 0.4 % (0.0-0.4); Lymphocytes Absolute Auto 2.1 X10*3/uL (1.2-4.9); Lymphocytes Percent Auto 27.9 % (20-40); Mean Corpuscular HGB Conc 35.5 g/dl (31.0-35.0); Mean Corpuscular Hemoglobin 30.8 pg (27.0-33.0); Mean Corpuscular Volume 86.9 fL (80.0-98.0); Mean Platelet Volume 10.4 fL (9.4-12.3); Monocytes Absolute Auto 0.5 X10*3/uL (0.1-1.2); Monocytes Percent Auto 6.3 % (2-11); Neutrophils Absolute Auto 4.8 x10*3/uL (2.0-8.3); Neutrophils Percent Auto 63.4 % (45-73); Platelet Count 205 X10*3/uL (160-400); Red Blood Count 4.51 X10*6/uL (4.20-5.50); Red Cell Distribution Width 12.6 % (11.0-16.0); White Blood Count 7.6 X10*3/uL (4.8-10.8)
--- NOTE | 2024-01-28 16:58 | PC.NURSE ---
continues to ambulate to bathroom with one assist. requested pure wick, educated patient on importance of ambulating to bathroom. labs obtained, resting quietly in room with warm blanket provided
[2024-01-28 17:11] LABS: Alanine Aminotransferase 31 U/L (0-31); Albumin Level 4.1 g/dL (3.5-5.0); Alkaline Phosphatase 56 U/L (39-117); Anion Gap 10 (12-20); Aspartate Amino Transferase 29 U/L (5-31); Bilirubin Direct 0.1 mg/dL (0.0-0.5); Bilirubin Total 0.3 mg/dL (0.0-1.0); Blood Urea Nitrogen 23 mg/dL (9-16); Calcium 9.8 mg/dL (8.4-10.2); Carbon Dioxide 26 mmol/L (22-29); Chloride 107 mmol/L (96-108); Estimated Glomerular Filt Rate > 60; Glucose Random 150 mg/dL (60-115); Potassium 4.3 mmol/L (3.3-5.1); Sodium 139 mmol/L (135-145); Total Protein 7.2 g/dL (6.5-8.0)
[2024-01-28 17:16] LABS: B Type Natriuretic Peptide 20 pg/mL (<100)
[2024-01-28 17:17] LABS: Troponin-I High Sensitivity 8.4 ng/L (<3.5-17.0)
[2024-01-28 18:02] VITALS: BP 131/89; PULSE 82; RESP 16; TEMP 36.8; O2SAT 97
[2024-01-28 19:18] LABS: Troponin-I High Sensitivity 10.3 ng/L (<3.5-17.0)
[2024-01-28 19:50] VITALS: BP 128/56; PULSE 86; RESP 16; TEMP 36.6; O2SAT 99
[2024-01-28 20:22] VITALS: BP 145/86; PULSE 88; RESP 16; TEMP 36.8; O2SAT 97
== END 2024-01-28 20:36 | disposition home or self-care (01) ==
PROVIDERS: Emergency Provider Emergency Medicine; PCP Family Medicine
DX: R20.0 Anesthesia of skin (principal); I10 Essential (primary) hypertension; E11.9 Type 2 diabetes mellitus without complications; E78.5 Hyperlipidemia, unspecified; J45.909 Unspecified asthma, uncomplicated; Z79.4 Long term (current) use of insulin; Z79.899 Other long term (current) drug therapy
CPT/HCPCS: 36415; 80048; 80076; 83880; 84484; 85025; 93005; 99283; 99285

== ENCOUNTER → 2024-01-28 16:29 | Outpatient (BNV) | payer OTHER, SELFPAY | PROVIDERS: Emergency Provider Emergency Medicine; PCP Family Medicine; Visit Provider Internal Medicine Cardiovascular Disease | DX: I49.8 Other specified cardiac arrhythmias (principal); R94.31 Abnormal electrocardiogram [ECG] [EKG]; I10 Essential (primary) hypertension | CPT/HCPCS: 93010 ==

== ENCOUNTER 2024-03-13 11:26 | Emergency (ER) | payer OTHER, SELFPAY ==
[2024-03-13 11:30] VITALS: BP 112/56; PULSE 85; O2SAT 100
[2024-03-13 11:38] VITALS: BP 128/57; PULSE 89; RESP 16; TEMP 36.8; O2SAT 100
[2024-03-13 12:32] VITALS: BMI 32.9
[2024-03-13 12:39] LABS: MANUAL DIFF FLAG NO
[2024-03-13 12:40] LABS: Basophils Absolute Auto 0.1 X10*3/uL (0.0-0.2); Basophils Percent Auto 0.7 % (0-2); Eosinophils Absolute Auto 0.1 X10*3/uL (0.0-0.4); Eosinophils Percent Auto 0.9 % (0-4); Hematocrit 39.9 % (37.0-47.0); Hemoglobin 13.8 g/dl (12.0-16.0); Imm Gran Abs Auto 0.03 X10*3/uL (0.00-0.03); Imm Gran Pct Auto 0.4 % (0.0-0.4); Lymphocytes Absolute Auto 1.5 X10*3/uL (1.2-4.9); Lymphocytes Percent Auto 22.4 % (20-40); Mean Corpuscular HGB Conc 34.6 g/dl (31.0-35.0); Mean Corpuscular Hemoglobin 30.9 pg (27.0-33.0); Mean Corpuscular Volume 89.5 fL (80.0-98.0); Mean Platelet Volume 10.6 fL (9.4-12.3); Monocytes Absolute Auto 0.4 X10*3/uL (0.1-1.2); Monocytes Percent Auto 6.4 % (2-11); Neutrophils Absolute Auto 4.7 x10*3/uL (2.0-8.3); Neutrophils Percent Auto 69.2 % (45-73); Platelet Count 200 X10*3/uL (160-400); Red Blood Count 4.46 X10*6/uL (4.20-5.50); Red Cell Distribution Width 12.8 % (11.0-16.0); White Blood Count 6.9 X10*3/uL (4.8-10.8)
[2024-03-13 12:41] LABS: Appearance Urine Clear; Color Urine Yellow; Glucose Urine UA Negative (Negative); Leukocyte Esterase Urine Negative (Negative); Nitrite Urine Negative (Negative); Specific Gravity - Urine <= 1.005 (1.005-1.025); Urine Blood Negative (Negative); Urine Ketones Negative (Negative); Urine Protein Negative (Neg-Trace)
[2024-03-13 12:45] LABS: Prothrombin Time 11.2 SEC (10.9-12.4)
[2024-03-13 12:55] LABS: Alanine Aminotransferase 26 U/L (0-31); Alkaline Phosphatase 54 U/L (39-117); Anion Gap 9 (12-20); Aspartate Amino Transferase 27 U/L (5-31); Bilirubin Total 0.3 mg/dL (0.0-1.0); Blood Urea Nitrogen 21 mg/dL (9-16); Calcium 9.4 mg/dL (8.4-10.2); Carbon Dioxide 27 mmol/L (22-29); Chloride 111 mmol/L (96-108); Estimated Glomerular Filt Rate > 60; Glucose Random 110 mg/dL (60-115); Potassium 4.7 mmol/L (3.3-5.1); Sodium 142 mmol/L (135-145); Total Protein 7.3 g/dL (6.5-8.0)
--- NOTE | 2024-03-13 13:16 | ED.GENADULT ---
HPI - General Adult General Chief complaint: Abdominal Pain Stated complaint: NAUSEA,BLOODY STOOL,DIFF URINATION PER EMS Time Seen by Provider: 03/13/24 11:55 Source: patient and rn imaging ([place]) History of Present Illness ED Provider: Jimenez DAVDISON narrative: 78-year-old female with chronic constipation, known hemorrhoids comes in with an isolated episode of blood mixed with stool, no abdominal discomfort with this events and no prior history of being ill. She has had no further contamination of her underwear and denies any palpitations/dizziness/shortness of breath. Related Data Home Medications ?Medication ?Instructions ?Recorded ?Confirmed lancets ([employer] UltraSoft #100 ea 01/06/20 11/13/23 Lancets) pen needle, diabetic 32 gauge x #50 ea 08/17/20 11/13/23 simethicone 125 mg capsule (Gas 0 mg PO 11/26/20 11/13/23 Relief Extra Strength) spironolactone 25 mg tablet 25 mg PO DAILY 11/26/20 11/13/23 latanoprost 0.005 % eye drops 1 drp ophthalmic (eye) BEDTIME 07/26/22 11/13/23 pioglitazone 45 mg tablet 45 mg PO DAILY 11/21/22 11/13/23 carvedilol 3.125 mg tablet 3.125 mg PO BID 06/18/23 11/13/23 sertraline 25 mg tablet 50 mg PO DAILY 06/18/23 11/13/23 sertraline 50 mg tablet 50 mg PO DAILY 06/18/23 11/13/23 hydrocortisone 2.5 % topical topical 08/16/23 11/13/23 ointment ipratropium bromide 21 mcg (0.03 intranasal 08/16/23 01/04/24 %) nasal spray insulin glargine 100 unit/mL (3 20 unit subcut DAILY 10/10/23 11/13/23 mL) subcutaneous pen (Lantus Solostar U-100 Insulin) rosuvastatin 40 mg tablet 40 mg PO DAILY 10/10/23 11/13/23 Previous Rx's ?Medication ?Instructions ?Recorded blood sugar diagnostic ([employer]et[employer]oresTouch #100 ea 01/07/20 Verio test strips) blood-glucose meter ([employer]storesTouch #1 ea 01/07/20 Verio Meter) mirabegron 25 mg tablet,extended 25 mg PO DAILY 30 days #30 tabs 10/28/20 release 24 hr (Myrbetriq) inhalational spacing device #1 ea 01/25/21 (Aerochamber MV spacer) albuterol sulfate 90 mcg/actuation 2 puff PO Q4H PRN for wheezing 30 11/21/22 aerosol inhaler (Ventolin HFA) days #18 ea budesonide 32 mcg/actuation nasal 2 spray intranasal DAILY 30 days 11/21/22 spray #8.43 mL ipratropium 0.5 mg-albuterol 3 mg 3 ml inhalation Q6H PRN for 03/30/23 (2.5 mg base)/3 mL nebulization wheezing #180 mL soln budesonide 0.5 mg/2 mL suspension 0.5 mg (2 mL) inhalation BID 30 05/21/23 for nebulization days #120 mL acetaminophen 500 mg tablet 500 mg PO Q6H PRN fever or pain 08/10/23 #14 tabs benzonatate 200 mg capsule 200 mg PO TID PRN cough #10 caps 08/16/23 sennosides 8.6 mg-docusate sodium 2 tab-cap (2 x 8.6-50 mg) PO 08/16/23 50 mg tablet (Senna with Docusate BEDTIME PRN constipation 60 days Sodium) #120 tabs clopidogrel 75 mg tablet (Plavix) 75 mg PO DAILY #90 tabs 10/10/23 cyclobenzaprine 10 mg tablet 10 mg PO Q8H #20 tabs 11/15/23 tramadol 50 mg tablet 50 mg PO Q6H PRN pain #20 tabs 11/15/23 oxycodone 5 mg tablet 5 mg PO BID PRN pain #7 tabs 11/16/23 fluticasone propionate 115 2 puff PO Q12H #12 ea 12/11/23 mcg-salmeterol 21 mcg/actuation HFA inhaler (Advair HFA) famotidine 20 mg tablet 20 mg PO BID 90 days #180 tabs 02/09/24 evolocumab 140 mg/mL subcutaneous 140 mg subcut Q2W #2 mL 02/17/24 pen injector (Repatha SureClick) Allergies Allergy/AdvReac Type Severity Reaction Status Date / Time fluticasone [Flovent HFA] Allergy Unknown lip Verified 03/13/24 12:33 swelling lisinopril Allergy Itching Verified 03/13/24 12:33 umeclidinium AdvReac Intermediate Chest Pain Verified 03/13/24 12:33 [From Incruse Ellipta] empagliflozin [Jardiance] AdvReac Unknown vaginal Verified 03/13/24 12:33 itch metformin AdvReac Unknown stomach Verified 03/13/24 12:33 pain sitagliptin [Januvia] AdvReac Unknown stomach Verified 03/13/24 12:33 pain acetaminophen [From Percocet] AdvReac Nausea and Verified 03/13/24 12:33 Vomiting hydrocodone [From Vicodin] AdvReac Nausea and Verified 03/13/24 12:33 Vomiting ibuprofen [From Motrin] AdvReac Stomach Verified 03/13/24 12:33 Upset oxycodone [From Percocet] AdvReac Nausea and Verified 03/13/24 12:33 Vomiting Review of Systems Review of Systems: Pertinent positives and negatives as stated in HPI [facility] Past Medical History Source: nursing notes reviewed Medical History Dysphagia Tracheobronchomalacia ROXIE (obstructive sleep apnea) Essential hypertension Atherosclerotic cardiovascular disease Urinary incontinence Obese Dyslipidemia Anxiety and depression Gastric pain Sinusitis Chronic allergic rhinitis Asthma Cough Cough Diabetes mellitus Fibromyalgia Pulmonary nodules Surgical History H/O heart artery stent Hx of esophagogastroduodenoscopy History of bronchoscopy Hx of colonoscopy H/O left knee surgery H/O breast biopsy H/O: hysterectomy Family History Family History Father Hypertension Mother Hypertension Diabetes Daughter Diabetes Brother No problems noted. Social History Social History Household Members: Children Unable to assess alcohol history related to: Unknown Alcohol intake: never Patient Tobacco Use Status: Never used Tobacco Smoked in Last 30 Days: No Second Hand Smoke Exposure: Yes Use of substances other than those prescribed or required for medical reasons: Unknown Advance Directives: No Advance Directives Information Provided: Yes Physical Exam ED Vital Signs: Vital Signs - 24 hr 03/13/24 11:38 Temperature 98.2 F Pulse Rate 89 Respiratory Rate 16 Blood Pressure 128/57 L Pulse Oximetry 100 Oxygen Delivery Method Room Air BMI result Body Mass Index 32.9 VITAL SIGNS: Reviewed. GENERAL: Well developed, well nourished, in no acute distress. HEAD: Normocephalic/atraumatic EYES: PERRLA, EOMI EARS: Ext canals without abnormality NOSE: Nares patent bilateral OROPHARYNX: no oral lesions noted, posterior pharynx clear NECK: Supple, no adenopathy LUNGS: Normal breath sounds. No adventitious sounds or accessory muscle use. SpO2<100> CARDIOVASCULAR: Regular rate and rhythm without noted murmurs, no JVD or lower extremity edema. ABDOMEN: Soft, non-tender, non-distended with bowel sounds. 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 EXTREMITIES: No cyanosis, clubbing or edema. SKIN: Inspection of the skin reveals no rashes NEUROLOGIC: Alert and oriented x 4. Strength and sensation to light touch were grossly intact x 4. Medical Decision Making Medical Decision Making [facility] Narrative: 78-year-old female with history and clinical presentation, DD DX: No concern for upper GI bleed at this time, suspect hemorrhoidal bleeding that is transient in nature secondary to chronic constipation. Patient is on aspirin and Plavix, there is no associated abdominal pain. I reviewed and interpreted all investigations there is no evidence of infectious leukocytosis, anemia, or thrombocytopenia. There is no demonstrated SHAKIR/electrolyte or liver enzyme derangements. Urinalysis is negative for UTI or hematuria. Stool occult blood is negative. Patient's workup is otherwise reassuring and she was informed of all results and directed to follow-up with her GI doctor. Differential Diagnosis Differential Diagnoses: The differential diagnosis associated with the presentation includes See above Admission/Observation Consideration of admission/observation: Escalation of care including admission/observation considered Patient does not meet inpatient level of care. Lab Data [facility] Lab Attestation statement: I reviewed the patient's lab results. See above 03/13/24 12:34 03/13/24 12:34 Labs: Lab Results 03/13/24 03/13/24 Range/Units 12:34 13:30 WBC 6.9 (4.8-10.8) X10*3/uL RBC 4.46 (4.20-5.50) X10*6/uL Hgb 13.8 (12.0-16.0) g/dl Hct 39.9 (37.0-47.0) % MCV 89.5 (80.0-98.0) fL MCH 30.9 (27.0-33.0) pg MCHC 34.6 (31.0-35.0) g/dl RDW 12.8 (11.0-16.0) % Plt Count 200 (160-400) X10*3/uL MPV 10.6 (9.4-12.3) fL Immature Gran % (Auto) 0.4 (0.0-0.4) % Neut % (Auto) 69.2 (45-73) % Lymph % (Auto) 22.4 (20-40) % Dougherty % (Auto) 6.4 (2-11) % Eos % (Auto) 0.9 (0-4) % Baso % (Auto) 0.7 (0-2) % Lymph # (Auto) 1.5 (1.2-4.9) X10*3/uL [place] # (Auto) 0.4 (0.1-1.2) X10*3/uL Eos # (Auto) 0.1 (0.0-0.4) X10*3/uL Baso # (Auto) 0.1 (0.0-0.2) X10*3/uL Abs Immat Gran (auto) 0.03 (0.00-0.03) X10*3/uL Absolute Neuts (auto) 4.7 (2.0-8.3) x10*3/uL Absolute Nucleated RBC 0.000 (0.0-0.012) X10*3/uL Nucleated RBC % (auto) 0.0 (0.0-0.2) /100WBC PT 11.2 (10.9-12.4) SEC INR 1.0 (0.9-1.1) Sodium 142 (135-145) mmol/L Potassium 4.7 (3.3-5.1) mmol/L Chloride 111 H (96-108) mmol/L Carbon Dioxide 27 (22-29) mmol/L Anion Gap 9 L (12-20) BUN 21 H (9-16) mg/dL Creatinine 0.77 (0.5-1.4) mg/dL Estim Creat Clear Calc 46.0 Estimated GFR > 60 Random Glucose 110 (60-115) mg/dL Calcium 9.4 (8.4-10.2) mg/dL Total Bilirubin 0.3 (0.0-1.0) mg/dL AST 27 (5-31) U/L ALT 26 (0-31) U/L Alkaline Phosphatase 54 (39-117) U/L Total Protein 7.3 (6.5-8.0) g/dL Albumin 4.0 (3.5-5.0) g/dL Urine Color Yellow Urine Appearance Clear Urine pH 6.0 (5.0-9.0) Ur Specific [place] <= 1.005 (1.005-1.025) Urine Protein Negative (Neg-Trace) mg/dL Urine Glucose (UA) Negative (Negative) mg/dL Urine Ketones Negative (Negative) mg/dL Urine Blood Negative (Negative) Urine Nitrite Negative (Negative) Ur Leukocyte Esterase Negative (Negative) Stool Occult Blood NEGATIVE (NEGATIVE) External Record Review External record reviewed: Prior outpatient labs and Prior outpatient radiology Chronic Conditions Patient?s care impacted by: Diabetes and Hypertension Discharge Plan Discharge Clinical Impression: Constipation, Bleeding hemorrhoids Patient Disposition: Home, Self-Care Instructions: Constipation (ED), Hemorrhoids (ED), High Fiber Diet (ED) Additional Instructions: Resume all home medications as prescribed. Recommend [id number] MiraLax, daily so that you have softer easier stools. Please follow-up with your knobber by calling the office 1st thing in the morning to set up a follow-up appointment. Do not hesitate to return to the emergency room for any worsening symptoms. Prescriptions: No Action (DME) lancets [OneTouch UltraSoft Lancets] [facility] See Rx Instructions .ROUTE .MEDSUPPLY Qty: 100 Rx Instructions: As directed (DME) blood-glucose meter [OneTouch Verio Meter] Misc See Rx Instructions .ROUTE .MEDSUPPLY Qty: 1 0RF Rx Instructions: As directed (DME) OneTouch Verio test strips Strip See Rx Instructions .ROUTE .MEDSUPPLY Qty: 100 0RF Rx Instructions: As directed Myrbetriq 25 mg tablet extended release 24 hr 25 mg PO DAILY 30 Days Qty: 30 1RF (DME) Aerochamber MV Spacer See Rx Instructions .ROUTE .MEDSUPPLY Qty: 1 0RF Rx Instructions: As directed ipratropium-albuterol 0.5 mg-3 mg(2.5 mg base)/3 mL solution for nebulization 3 ml inhalation Q6H PRN (Reason: for wheezing) Qty: 180 2RF fluticasone propion-salmeterol [Advair HFA] 115-21 mcg/actuation HFA aerosol inhaler 2 puff PO Q12H Qty: 12 11RF famotidine 20 mg tablet 20 mg PO BID 90 Days Qty: 180 1RF Repatha SureClick 140 mg/mL pen injector 140 mg subcut Q2W Qty: 2 2RF acetaminophen 500 mg tablet 500 mg PO Q6H PRN (Reason: fever or pain) Qty: 14 0RF benzonatate 200 mg capsule 200 mg PO TID PRN (Reason: cough) Qty: 10 0RF cyclobenzaprine 10 mg tablet 10 mg PO Q8H Qty: 20 0RF tramadol 50 mg tablet 50 mg PO Q6H PRN (Reason: pain) Qty: 20 0RF oxycodone 5 mg tablet 5 mg PO BID PRN (Reason: pain) Qty: 7 0RF Rx Instructions: Partial Fill upon patient request. simethicone [Gas Relief Extra Strength] 125 mg capsule 0 mg PO spironolactone 25 mg tablet 25 mg PO DAILY sertraline 25 mg tablet 50 mg PO DAILY (DME) pen needle, diabetic 32 gauge x 5/32 needle See Rx Instructions .ROUTE .MEDSUPPLY Qty: 50 Rx Instructions: As directed pioglitazone 45 mg tablet 45 mg PO DAILY albuterol sulfate [Ventolin HFA] 90 mcg/actuation HFA aerosol inhaler 2 puff PO Q4H PRN (Reason: for wheezing) 30 Days Qty: 18 6RF budesonide 32 mcg/actuation spray,non-aerosol 2 spray intranasal DAILY 30 Days Qty: 8.43 7RF Rx Instructions: administer into each nostril budesonide 0.5 mg/2 mL suspension for nebulization 0.5 mg inhalation BID 30 Days Qty: 120 11RF Lant Solostar U-100 Insulin 100 unit/mL (3 mL) insulin pen 20 unit subcut DAILY rosuvastatin 40 mg tablet 40 mg PO DAILY clopidogrel [Plavix] 75 mg tablet 75 mg PO DAILY Qty: 90 3RF latanoprost 0.005 % drops 1 drp ophthalmic (eye) BEDTIME carvedilol 3.125 mg tablet 3.125 mg PO BID sertraline 50 mg tablet 50 mg PO DAILY ipratropium bromide 21 mcg (0.03 %) spray,non-aerosol intranasal hydrocortisone 2.5 % ointment topical sennosides-docusate sodium [Senna with Docusate Sodium] 8.6-50 mg tablet 2 tab-cap PO BEDTIME PRN (Reason: constipation) 60 Days Qty: 120 2RF Rx Instructions: Please take every other day at bedtime Referrals: Liset Mitchell MD [Primary Care Provider] - Luciana Gutierrez MD [Physician] - Print Language: Scottish
[2024-03-13 13:42] LABS: OBS Int Ctl Valid YES; OBS1 NEGATIVE (NEGATIVE)
[2024-03-13 14:12] VITALS: BP 121/70; PULSE 81; RESP 18; TEMP 36.7; O2SAT 99
== END 2024-03-13 14:14 | disposition home or self-care (01) ==
PROVIDERS: Emergency Provider Student in an Organized Health Care Education/Training Program; PCP Family Medicine
DX: K64.9 Unspecified hemorrhoids (principal); K59.00 Constipation, unspecified; R11.2 Nausea with vomiting, unspecified; K92.1 Melena; Z79.899 Other long term (current) drug therapy
CPT/HCPCS: 36415; 80053; 81003; 82272; 85025; 85610; 99283; 99284

== ENCOUNTER 2024-03-19 19:04 | Emergency (ER) | payer OTHER, SELFPAY ==
--- NOTE | 2024-03-19 | ECG_ITS ---
Test Reason : CHEST TIGHT Blood Pressure : */* mmHG Vent. 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
--- NOTE | ~2024-03-19 | XR_ITS ---
CLINICAL HISTORY: cp 1 view chest x-ray Comparison: CR/SR - XR CHEST 1V - 08/15/23 23:41 EDT Findings: Normal size heart. Atherosclerotic vascular disease of aortic arch. No consolidation, significant pleural effusion or pneumothorax. Osseous structures appear stable. IMPRESSION: 1. No acute findings. This document has been electronically signed by: Estefani Canas MD on 03/19/2024 20:44:09
[2024-03-19 19:15] VITALS: BP 160/83; PULSE 74; O2SAT 100
[2024-03-19 19:26] VITALS: BP 137/53; PULSE 56; RESP 16; TEMP 37; O2SAT 97; BMI 34.4
--- NOTE | 2024-03-19 19:55 | ED.GENADULT ---
HPI - General Adult General Chief complaint: General Medical Stated complaint: Chest tightness, 176/96 BP, didn't take BP meds Time Seen by Provider: 03/19/24 19:13 History of Present Illness HPI narrative: Patient is a 78-year-old female with a history of hypertension. She reports some elevated reading of 176/96 after not taking her amlodipine this morning. Baseline patient on 5 mg of amlodipine. This afternoon she had some question tightness to the chest. It was not associated with any shortness of breath not associated with any diaphoresis then she remember she did not take her blood pressure med accident and came to the ED. denies any fever chills no coughing or congestion. Denies any chest pain. history of CAD. Positive history of hypertension. No history of high cholesterol. No smoking no [place]. currently symptom free Related Data Home Medications ?Medication ?Instructions ?Recorded ?Confirmed lancets (OneTouch UltraSoft #100 ea 01/06/20 11/13/23 Lancets) pen needle, diabetic 32 gauge x #50 ea 08/17/20 11/13/23 simethicone 125 mg capsule (Gas 0 mg PO 11/26/20 11/13/23 Relief Extra Strength) spironolactone 25 mg tablet 25 mg PO DAILY 11/26/20 11/13/23 latanoprost 0.005 % eye drops 1 drp ophthalmic (eye) BEDTIME 07/26/22 11/13/23 pioglitazone 45 mg tablet 45 mg PO DAILY 11/21/22 11/13/23 carvedilol 3.125 mg tablet 3.125 mg PO BID 06/18/23 11/13/23 sertraline 25 mg tablet 50 mg PO DAILY 06/18/23 11/13/23 sertraline 50 mg tablet 50 mg PO DAILY 06/18/23 11/13/23 hydrocortisone 2.5 % topical topical 08/16/23 11/13/23 ointment ipratropium bromide 21 mcg (0.03 intranasal 08/16/23 01/04/24 %) nasal spray insulin glargine 100 unit/mL (3 20 unit subcut DAILY 10/10/23 11/13/23 mL) subcutaneous pen (Lantus Solostar U-100 Insulin) rosuvastatin 40 mg tablet 40 mg PO DAILY 10/10/23 11/13/23 Previous Rx's ?Medication ?Instructions ?Recorded blood sugar diagnostic (OneTouch #100 ea 01/07/20 Verio test strips) blood-glucose meter (OneTouch #1 ea 01/07/20 Verio Meter) mirabegron 25 mg tablet,extended 25 mg PO DAILY 30 days #30 tabs 10/28/20 release 24 hr (Myrbetriq) inhalational spacing device #1 ea 01/25/21 (Aerochamber MV spacer) albuterol sulfate 90 mcg/actuation 2 puff PO Q4H PRN for wheezing 30 11/21/22 aerosol inhaler (Ventolin HFA) days #18 ea budesonide 32 mcg/actuation nasal 2 spray intranasal DAILY 30 days 11/21/22 spray #8.43 mL ipratropium 0.5 mg-albuterol 3 mg 3 ml inhalation Q6H PRN for 03/30/23 (2.5 mg base)/3 mL nebulization wheezing #180 mL soln budesonide 0.5 mg/2 mL suspension 0.5 mg (2 mL) inhalation BID 30 05/21/23 for nebulization days #120 mL acetaminophen 500 mg tablet 500 mg PO Q6H PRN fever or pain 08/10/23 #14 tabs benzonatate 200 mg capsule 200 mg PO TID PRN cough #10 caps 08/16/23 sennosides 8.6 mg-docusate sodium 2 tab-cap (2 x 8.6-50 mg) PO 08/16/23 50 mg tablet (Senna with Docusate BEDTIME PRN constipation 60 days Sodium) #120 tabs clopidogrel 75 mg tablet (Plavix) 75 mg PO DAILY #90 tabs 10/10/23 cyclobenzaprine 10 mg tablet 10 mg PO Q8H #20 tabs 11/15/23 tramadol 50 mg tablet 50 mg PO Q6H PRN pain #20 tabs 11/15/23 oxycodone 5 mg tablet 5 mg PO BID PRN pain #7 tabs 11/16/23 fluticasone propionate 115 2 puff PO Q12H #12 ea 12/11/23 mcg-salmeterol 21 mcg/actuation HFA inhaler (Advair HFA) famotidine 20 mg tablet 20 mg PO BID 90 days #180 tabs 02/09/24 evolocumab 140 mg/mL subcutaneous 140 mg subcut Q2W #2 mL 02/17/24 pen injector (Tracy Alejandre) Allergies Allergy/AdvReac Type Severity Reaction Status Date / Time fluticasone [Flovent HFA] Allergy Unknown lip Verified 03/19/24 19:30 swelling lisinopril Allergy Itching Verified 03/19/24 19:30 umeclidinium AdvReac Intermediate Chest Pain Verified 03/19/24 19:30 [From Incruse Ellipta] empagliflozin [Jardiance] AdvReac Unknown vaginal Verified 03/19/24 19:30 itch metformin AdvReac Unknown stomach Verified 03/19/24 19:30 pain sitagliptin [Januvia] AdvReac Unknown stomach Verified 03/19/24 19:30 pain acetaminophen [From Percocet] AdvReac Nausea and Verified 03/19/24 19:30 Vomiting hydrocodone [From Vicodin] AdvReac Nausea and Verified 03/19/24 19:30 Vomiting ibuprofen [From Motrin] AdvReac Stomach Verified 03/19/24 19:30 Upset oxycodone [From Percocet] AdvReac Nausea and Verified 03/19/24 19:30 Vomiting Review of Systems Review of Systems: no fever no chills no chest pain or diaphoresis Yes all other systems are reviewed and are negative [facility] Past Medical History Attestation statement: The following information was validated with the patient. Medical History Dysphagia Tracheobronchomalacia ROXIE (obstructive sleep apnea) Essential hypertension Atherosclerotic cardiovascular disease Urinary incontinence Obese Dyslipidemia Anxiety and depression Gastric pain Sinusitis Chronic allergic rhinitis Asthma Cough Cough Diabetes mellitus Fibromyalgia Pulmonary nodules Surgical History H/O heart artery stent Hx of esophagogastroduodenoscopy History of bronchoscopy Hx of colonoscopy H/O left knee surgery H/O breast biopsy H/O: hysterectomy Family History Family History Father Hypertension Mother Hypertension Diabetes Daughter Diabetes Brother No problems noted. Social History Social History Household Members: Children Unable to assess alcohol history related to: Unknown Alcohol intake: former Patient Tobacco Use Status: Never used Tobacco Smoked in Last 30 Days: No Second Hand Smoke Exposure: Yes Use of substances other than those prescribed or required for medical reasons: No Advance Directives: No Advance Directives Information Provided: No Physical Exam ED Vital Signs: Vital Signs - 24 hr 03/19/24 19:26 03/19/24 21:37 Temperature 98.6 F 98.1 F Pulse Rate 56 59 Respiratory Rate 16 12 Blood Pressure 137/53 L 175/81 H Pulse Oximetry 97 97 Oxygen Delivery Method Room Air Room Air BMI result Body Mass Index 34.4 Appearance: Alert. Oriented X3. No acute distress. Eyes: Pupils equal, round and reactive to light. ENT: Pharynx normal. Neck: Normal inspection. Neck supple. No lymph nodes noted. No crepitus CVS: Normal heart rate and rhythm. Pulses normal. Normal S1 and S2 Respiratory: No respiratory distress. Breath sounds normal. No Wheezing. No rales Abdomen: Soft and nontender. No rigidity. No distention. good BS x4 Skin: Skin warm and dry. Normal skin color. Normal skin turgor. Extremities: No lower extremity edema. Neurovascular intact to all extremities. No Lacerations. No Rash Neuro: Oriented X 3. No motor deficit. No sensory deficit. Moving all extermities. No slurred speech Medical Decision Making Medical Decision Making [facility] Narrative: Positive pressure to the chest no pain no shortness breath no diaphoresis. Positive history diabetes. no specific trigger not associated with exertion. Symptom is now gone. Will get 1 set of cardiac enzymes will monitor carefully. Patient's blood pressure in the emergency department is actually 130s over 60s. Explained to patient the need to take her medication on a regular basis patient states understanding. My interpretation patient's EKG showed a sinus rhythm heart rate is 70 SD QRS QTC normal no acute ST segment elevation Differential Diagnosis Differential Diagnoses: The differential diagnosis associated with the presentation includes hypertensive urgency. Nonspecific chest tightness. Lab Data [facility] Lab Attestation statement: I reviewed the patient's lab results. 03/19/24 20:38 03/19/24 20:38 Labs: Lab Results 03/19/24 Range/Units 20:38 WBC 6.9 (4.8-10.8) X10*3/uL RBC 4.40 (4.20-5.50) X10*6/uL Hgb 13.4 (12.0-16.0) g/dl Hct 39.4 (37.0-47.0) % MCV 89.5 (80.0-98.0) fL MCH 30.5 (27.0-33.0) pg MCHC 34.0 (31.0-35.0) g/dl RDW 13.0 (11.0-16.0) % Plt Count 199 (160-400) X10*3/uL MPV 10.5 (9.4-12.3) fL Immature Gran % (Auto) 0.3 (0.0-0.4) % Neut % (Auto) 58.4 (45-73) % Lymph % (Auto) 31.6 (20-40) % [place] % (Auto) 6.8 (2-11) % Eos % (Auto) 2.3 (0-4) % Baso % (Auto) 0.6 (0-2) % Lymph # (Auto) 2.2 (1.2-4.9) X10*3/uL [place] # (Auto) 0.5 (0.1-1.2) X10*3/uL Eos # (Auto) 0.2 (0.0-0.4) X10*3/uL Baso # (Auto) 0.0 (0.0-0.2) X10*3/uL Abs Immat Gran (auto) 0.02 (0.00-0.03) X10*3/uL Absolute Neuts (auto) 4.0 (2.0-8.3) x10*3/uL Absolute Nucleated RBC 0.000 (0.0-0.012) X10*3/uL Nucleated RBC % (auto) 0.0 (0.0-0.2) /100WBC Sodium 141 (135-145) mmol/L Potassium 4.1 (3.3-5.1) mmol/L Chloride 109 H (96-108) mmol/L Carbon Dioxide 27 (22-29) mmol/L Anion Gap 9 L (12-20) BUN 21 H (9-16) mg/dL Creatinine 0.87 (0.5-1.4) mg/dL Estim Creat Clear Calc 41.7 Estimated GFR > 60 Random Glucose 118 H (60-115) mg/dL Calcium 9.7 (8.4-10.2) mg/dL Troponin I High Sens 8.5 (<3.5-17.0) ng/L Urine Color Yellow Urine Appearance Clear Urine pH 6.0 (5.0-9.0) Ur Specific [place] 1.010 (1.005-1.025) Urine Protein Negative (Neg-Trace) mg/dL Urine Glucose (UA) Negative (Negative) mg/dL Urine Ketones Negative (Negative) mg/dL Urine Blood Negative (Negative) Urine Nitrite Negative (Negative) Ur Leukocyte Esterase Negative (Negative) Urine RBC 0-2 (0-2) /HPF Urine WBC 0-5 (0-5) /HPF Ur Squamous Epith Cells 0-2 (0-2) /HPF Urine Bacteria None Seen (None Seen) Hyaline Casts 0-2 (0-2) /LPF Independent Interpretation I performed an independent interpretation of an: EKG ( no significant changes) and Plain X-Ray ( chest x-ray grossly negative) Radiology Impression Discussion of test interpretation with radiology: I have reviewed the radiologist's reading. External Record Review External record reviewed: Inpatient record Chronic Conditions history of coronary artery disease Social Determinants Patient?s care significantly limited by Social Determinants of Health including: Problems related to primary support group Discharge Plan Discharge Clinical Impression: Hypertension, Chest pain Patient Disposition: Home, Self-Care Instructions: Chest Pain (DC), Hypertension (ED) Additional Instructions: please take your blood pressure medication as prescribed Prescriptions: No Action (DME) lancets [OneTouch UltraSoft Lancets] Misc See Rx Instructions .ROUTE .MEDSUPPLY Qty: 100 Rx Instructions: As directed (DME) blood-glucose meter [OneTouch Verio Meter] Misc See Rx Instructions .ROUTE .MEDSUPPLY Qty: 1 0RF Rx Instructions: As directed (DME) OneTouch Verio test strips Strip See Rx Instructions .ROUTE .MEDSUPPLY Qty: 100 0RF Rx Instructions: As directed Myrbetriq 25 mg tablet extended release 24 hr 25 mg PO DAILY 30 Days Qty: 30 1RF (DME) Aerochamber MV Spacer See Rx Instructions .ROUTE .MEDSUPPLY Qty: 1 0RF Rx Instructions: As directed ipratropium-albuterol 0.5 mg-3 mg(2.5 mg base)/3 mL solution for nebulization 3 ml inhalation Q6H PRN (Reason: for wheezing) Qty: 180 2RF fluticasone propion-salmeterol [Advair HFA] 115-21 mcg/actuation HFA aerosol inhaler 2 puff PO Q12H Qty: 12 11RF famotidine 20 mg tablet 20 mg PO BID 90 Days Qty: 180 1RF Repatha SureClick 140 mg/mL pen injector 140 mg subcut Q2W Qty: 2 2RF acetaminophen 500 mg tablet 500 mg PO Q6H PRN (Reason: fever or pain) Qty: 14 0RF benzonatate 200 mg capsule 200 mg PO TID PRN (Reason: cough) Qty: 10 0RF cyclobenzaprine 10 mg tablet 10 mg PO Q8H Qty: 20 0RF tramadol 50 mg tablet 50 mg PO Q6H PRN (Reason: pain) Qty: 20 0RF oxycodone 5 mg tablet 5 mg PO BID PRN (Reason: pain) Qty: 7 0RF Rx Instructions: Partial Fill upon patient request. simethicone [Gas Relief Extra Strength] 125 mg capsule 0 mg PO spironolactone 25 mg tablet 25 mg PO DAILY sertraline 25 mg tablet 50 mg PO DAILY (DME) pen needle, diabetic 32 gauge x 5/32 needle See Rx Instructions .ROUTE .MEDSUPPLY Qty: 50 Rx Instructions: As directed pioglitazone 45 mg tablet 45 mg PO DAILY albuterol sulfate [Ventolin HFA] 90 mcg/actuation HFA aerosol inhaler 2 puff PO Q4H PRN (Reason: for wheezing) 30 Days Qty: 18 6RF budesonide 32 mcg/actuation spray,non-aerosol 2 spray intranasal DAILY 30 Days Qty: 8.43 7RF Rx Instructions: administer into each nostril budesonide 0.5 mg/2 mL suspension for nebulization 0.5 mg inhalation BID 30 Days Qty: 120 11RF Lantus Solostar U-100 Insulin 100 unit/mL (3 mL) insulin pen 20 unit subcut DAILY rosuvastatin 40 mg tablet 40 mg PO DAILY clopidogrel [Plavix] 75 mg tablet 75 mg PO DAILY Qty: 90 3RF latanoprost 0.005 % drops 1 drp ophthalmic (eye) BEDTIME carvedilol 3.125 mg tablet 3.125 mg PO BID sertraline 50 mg tablet 50 mg PO DAILY ipratropium bromide 21 mcg (0.03 %) spray,non-aerosol intranasal hydrocortisone 2.5 % ointment topical sennosides-docusate sodium [Senna with Docusate Sodium] 8.6-50 mg tablet 2 tab-cap PO BEDTIME PRN (Reason: constipation) 60 Days Qty: 120 2RF Rx Instructions: Please take every other day at bedtime Referrals: Physician,Unknown J [Primary Care Provider] - 03/21/24 Ray May MD [Physician] - 03/21/24 Print Language: Azerbaijani
[2024-03-19 20:48] LABS: MANUAL DIFF FLAG NO
[2024-03-19 20:50] LABS: Basophils Percent Auto 0.6 % (0-2); Eosinophils Absolute Auto 0.2 X10*3/uL (0.0-0.4); Eosinophils Percent Auto 2.3 % (0-4); Hematocrit 39.4 % (37.0-47.0); Hemoglobin 13.4 g/dl (12.0-16.0); Imm Gran Abs Auto 0.02 X10*3/uL (0.00-0.03); Imm Gran Pct Auto 0.3 % (0.0-0.4); Lymphocytes Absolute Auto 2.2 X10*3/uL (1.2-4.9); Lymphocytes Percent Auto 31.6 % (20-40); Mean Corpuscular Hemoglobin 30.5 pg (27.0-33.0); Mean Corpuscular Volume 89.5 fL (80.0-98.0); Mean Platelet Volume 10.5 fL (9.4-12.3); Monocytes Absolute Auto 0.5 X10*3/uL (0.1-1.2); Monocytes Percent Auto 6.8 % (2-11); Neutrophils Percent Auto 58.4 % (45-73); Platelet Count 199 X10*3/uL (160-400); White Blood Count 6.9 X10*3/uL (4.8-10.8)
[2024-03-19 20:59] LABS: Appearance Urine Clear; Color Urine Yellow; Glucose Urine UA Negative (Negative); Leukocyte Esterase Urine Negative (Negative); Nitrite Urine Negative (Negative); Urine Blood Negative (Negative); Urine Ketones Negative (Negative); Urine Protein Negative (Neg-Trace)
[2024-03-19 21:04] LABS: Bacteria Urine None Seen (None Seen); Hyaline Casts Urine 0-2 /LPF (0-2); RBC Urine 0-2 /HPF (0-2); Squamous Epithelial Cell Urine 0-2 /HPF (0-2); WBC Urine 0-5 /HPF (0-5)
[2024-03-19 21:07] LABS: Anion Gap 9 (12-20); Blood Urea Nitrogen 21 mg/dL (9-16); Calcium 9.7 mg/dL (8.4-10.2); Carbon Dioxide 27 mmol/L (22-29); Chloride 109 mmol/L (96-108); Creatinine Clr Calc Pharmacy 41.7; Estimated Glomerular Filt Rate > 60; Glucose Random 118 mg/dL (60-115); Potassium 4.1 mmol/L (3.3-5.1); Sodium 141 mmol/L (135-145)
[2024-03-19 21:15] LABS: Troponin-I High Sensitivity 8.5 ng/L (<3.5-17.0)
[2024-03-19 21:37] VITALS: BP 175/81; PULSE 59; RESP 12; TEMP 36.7; O2SAT 97
[2024-03-19 22:18] VITALS: BP 163/55; PULSE 55; RESP 16; TEMP 36.7; O2SAT 100
== END 2024-03-19 22:30 | disposition home or self-care (01) ==
PROVIDERS: Emergency Provider Emergency Medicine Emergency Medical Services
DX: R07.89 Other chest pain (principal); I25.10 Atherosclerotic heart disease of native coronary artery without angina pectoris; R06.02 Shortness of breath; I10 Essential (primary) hypertension; Z79.899 Other long term (current) drug therapy
CPT/HCPCS: 36415; 71045; 80048; 81001; 84484; 85025; 93005; 99283; 99284

== ENCOUNTER → 2024-03-19 19:27 | Outpatient (BNV) | payer OTHER, SELFPAY | PROVIDERS: Emergency Provider Emergency Medicine Emergency Medical Services; Visit Provider Internal Medicine Cardiovascular Disease | DX: R07.89 Other chest pain (principal); R00.1 Bradycardia, unspecified; R94.31 Abnormal electrocardiogram [ECG] [EKG] | CPT/HCPCS: 93010 ==

== ENCOUNTER → 2024-03-19 20:03 | Outpatient (BNV) | payer OTHER, SELFPAY | PROVIDERS: Emergency Provider Emergency Medicine Emergency Medical Services; Visit Provider Specialist | DX: R07.9 Chest pain, unspecified (principal) | CPT/HCPCS: 71045 ==

== ENCOUNTER 2024-03-31 07:52 | Outpatient (AMB) | payer OTHER, SELFPAY ==
--- OUTSIDE RECORDS SUMMARY | 2024-03-31 07:54 | XMS_ITS | Encounter Summary ---
Author Organization [employer] Address [address] [facility] [facility] [address] [place] [address] Care Team Providers Care Electronic Systems Security Assessment Name Role Phone Liset Mitchell MD Primary Care Provider [phone] Reason for Visit * Reason Onset Date Comments Appointment Request 03/13/2024 Encounter Details Date Type Department Care Team ([facility] st Contact Info) Description 03/13/2024 Telephone [facility] [address] [place] [address] Liset Mitchell MD [address] [place], [place] [phone] Appointment Request Social History Tobacco Use Types Packs/Day Years Used Date Smoking Tobacco: Never Passive Smoke Exposure: Never Smokeless Tobacco: Never Alcohol Use Standard Drinks/Week Comments Never 0 (1 standard drink = 0.6 oz pur e alcohol) Depression Answer Date Recorded Patient Health Questionnaire-9 Score 4 02/29/2024 Patient Health Questionnaire-9 Score 4 02/29/2024 Last PHQ-9: Questionnaire Data Not on file 0 02/29/2024 Housing Stability Answer Date Recorded What is your housing situation today? I have ciro nogueira 02/29/[address] you li ve. Do you have problems with any of the following? None of the above 02/29/2024 Food Insecurity Answer Date Recorded Within the past 12 months, y ou worried that your food would run out before you got money to buy more: Never True 02/29/2024 Within the past 12 months,th e food you bought just didn't last and you didn't have enough money to get more: Never True 04/2024 Transportation Answer Date Recorded In the past 12 months, has l ack of transportation kept you from medical appts, meetings, work or from getting things needed for daily living? No 02/29/2024 Utilities Answer Date Recorded In the past 12 months, has t he electric, gas, oil or water company threatened to shut off services in your home? No 02/29/2024 Depression Answer Date Recorded Patient Health Questionnaire-2 Score 2 02/29/2024 Internet Access Answer Date Recorded Internet Access Q1 Yes 02/29/2024 Internet Access Q2 Not on file 02/29/2024 Comments Unknown Sex and Gender Information Value Date Recorded Sex Assigned at Female 12/26/2021 10:14 AM EDT Legal Sex Female 10:14 AM EDT Gender Identity Female 12/26/2021 10:14 AM EDT Sexual Orientation Don't know 10/25/2022 11 :36 AM EDT Sexual Orientation Straight 10/25/2022 11 :36 AM EDT documented as of this encounter Miscellaneous Notes * Telephone Encounter - Mary Rivas RN - 03/13/2024 2:56 PM EST Per chart review pt seen at [facility] today 03/13/24 for blood in stool and constiaption. No GI bleed,UTI or other concerns. Call returned to Natali Santos for triage below. No answer LVM to return call to [facility] triage line [phone]. * Telephone Encounter - Jesus Wilks - 03/13/2024 1:45 PM EST Tc from pt requesting call back to reschedule same day visit. Please contact pt at [phone]. (French Speaker) documented in this encounter Plan of Treatment Not on file documented as of this encounter Visit Diagnoses Not on filedocumented in this encounter Additional Health Concerns Assessment Noted Time PHQ-9 Depression Total Score: 4 02/28/19 25 9:06 AM EST documented as of this encounter Care Teams Electronic Systems Security Assessment Relationship Specialty Start Date End Date Liset Mitchell MD [address] [place] [id number] PCP - General Family Medicine 09/14/20 documented as of this encounter
--- OUTSIDE RECORDS SUMMARY | 2024-03-31 07:54 | XMS_ITS | Encounter Summary ---
Author Organization [employer] Address [address] [facility] [address] [place] [address] Care Team Providers Care Minor League Baseball Player Name Role Phone Liset Mitchell MD Primary Care Provider [phone] Encounter Details Date Type Department Care Team ([facility] Contact Info) Description 01/30/2024 Orders Only [facility] [address] [place], [place] [phone] Provider, MD Anne Marie Social History Tobacco Use Types Packs/Day Years Used Date Smoking Tobacco: Never Passive Smoke Exposure: Never Smokeless Tobacco: Never Alcohol Use Standard Drinks/Week Comments Never 0 (1 standard drink = 0.6 oz pur e alcohol) Depression Answer Date Recorded Patient Health Questionnaire-9 Score 0 04/13/2022 Housing Stability Answer Date Recorded What is your housing situation today? I have ciro nogueira 12/12/[address] you li ve. Do you have problems with any of the following? None of the above 12/12/2022 Food Insecurity Answer Date Recorded Within the past 12 months, y ou worried that your food would run out before you got money to buy more: Never True 12/12/2022 Within the past 12 months,th e food you bought just didn't last and you didn't have enough money to get more: Never True Transportation Answer Date Recorded In the past 12 months, has l ack of transportation kept you from medical appts, meetings, work or from getting things needed for daily living? No 12/12/2022 Utilities Answer Date Recorded In the past 12 months, has t he electric, gas, oil or water company threatened to shut off services in your home? No 12/12/2022 Depression Answer Date Recorded Patient Health Questionnaire-2 Score 0 04/13/2022 Comments Unknown Sex and Gender Information Value Date Recorded Sex Assigned at Female 12/26/2021 10:14 AM EDT Legal Sex Female 10:14 AM EDT Gender Identity Female 12/26/2021 10:14 AM EDT Sexual Orientation Don't know 10/25/2022 11 :36 AM EDT Sexual Orientation Straight 10/25/2022 11 :36 AM EDT documented as of this encounter Plan of Treatment Not on file documented as of this encounter Procedures Procedure Name Priority Date/Time Associated Diagnosis Comments ECG 12-LEAD Routine 01/26/2024 4:05 PM EST documented in this encounter Results * ECG 12 lead (01/26/2024 4:05 PM EST) us Historical Provider ECG ORDERABLES Final Res ult documented in this encounter Visit Diagnoses Not on filedocumented in this encounter Additional Health Concerns Assessment Noted Time PHQ-9 Depression Total Score: 0 04/13/19 23 10:04 AM EST documented as of this encounter Care Teams Minor League Baseball Player Relationship Specialty Start Date End Date Liset Mitchell MD [address] [place] [address] PCP - General Family Medicine 09/14/20 documented as of this encounter
--- OUTSIDE RECORDS SUMMARY | 2024-03-31 07:54 | XMS_ITS | Encounter Summary ---
Author Organization [employer] Address [address] [facility] [address] [place] [address] Care Team Providers Care Scientific Advisor Name Role Phone Liset Mitchell MD Primary Care Provider [phone] Encounter Details Date Type Department Care Team ([facility] Contact Info) Description 02/05/2024 Orders Only [facility] [address] [place], [place] [phone] Provider, MD Anne Marie Social History Tobacco [...] Procedure Name Priority Date/Time Associated Diagnosis Comments XR CHEST PA AND LATERAL Routine 01/26/2024 3:41 PM EST documented in this encounter Results * XR CHEST PA AND LATERAL (01/26/2024 3:41 PM EST) Anatomical Region Laterality Modality Radiographic Nelly ging us Historical Provider MD SILVER XR PROCEDURES Final R esult documented in this encounter Visit Diagnoses Not on filedocumented in this encounter Additional Health Concerns Assessment Noted Time PHQ-9 Depression Total Score: 0 04/13/19 23 10:04 AM EST documented as of this encounter Care Teams Scientific Advisor Relationship Specialty Start Date End Date Liset Mitchell MD [address] [place] [address] PCP - General Family Medicine 09/14/20 documented as of this encounter
--- NOTE | 2024-03-31 07:55 | A.OFFVIS_ITS ---
Vital Signs 03/31/24 08:00 Height 4 ft 8 in Weight 153 lb BMI 34.3 BP 119/65 Blood Pressure Location Lt brachial Position Sitting Pulse 97 Pulse Oximetry (%) 100 Oxygen Delivery Method Room Air Intake Visit Reasons: chronic constipation Intake Note: Patient follow up for chronic constipation Patient cc: chronic constipation. Mental Health Program Manager Required: Yes Mental Health Program Manager Name: Nathanael Wade [id number] Accompanied by: Self / Same As Patient Allergies fluticasone (Flovent HFA) Allergy (Unknown, Verified 04/14/25 16:58) lip swelling lisinopril Allergy (Verified 04/14/25 16:58) Itching evolocumab (From Repatha SureClick) Adverse Reaction (Intermediate, Verified 04/14/25 16:58) Hypertension umeclidinium (From Incruse Ellipta) Adverse Reaction (Intermediate, Verified 04/14/25 16:58) Chest Pain empagliflozin (Jardiance) Adverse Reaction (Unknown, Verified 04/14/25 16:58) vaginal itch metformin Adverse Reaction (Unknown, Verified 04/14/25 16:58) stomach pain sitagliptin (Januvia) Adverse Reaction (Unknown, Verified 04/14/25 16:58) stomach pain acetaminophen (From Percocet) Adverse Reaction (Verified 04/14/25 16:58) Nausea and Vomiting hydrocodone (From Vicodin) Adverse Reaction (Verified 04/14/25 16:58) Nausea and Vomiting ibuprofen (From Motrin) Adverse Reaction (Verified 04/14/25 16:58) Stomach Upset oxycodone (From Percocet) Adverse Reaction (Verified 04/14/25 16:58) Nausea and Vomiting Medication List - Last Reconciled 03/31/24 by Luciana Gutierrez MD acetaminophen 500 mg PO Q6H PRN albuterol sulfate 90 mcg/actuation (Ventolin HFA) 2 puffs PO Q4H PRN 30 days benzonatate 200 mg PO TID PRN blood sugar diagnostic (OneTouch Verio test strips) As directed blood-glucose meter (OneTouch Verio Meter) As directed budesonide 32 mcg/actuation 2 sprays intranasal DAILY 30 days budesonide 0.5 mg (2 mL) inhalation BID 30 days carvedilol 3.125 mg PO BID clopidogrel (Plavix) 75 mg PO DAILY cyclobenzaprine 10 mg PO Q8H evolocumab (Repatha SureClick) 140 mg subcut Q2W famotidine 20 mg PO BID 90 days fluticasone propion-salmeterol 115-21 mcg/actuation (Advair HFA) 2 puffs PO Q12H hydrocortisone 2.5% topical inhalational spacing device (Aerochamber MV spacer) As directed insulin glargine (Lantus Solostar U-100 Insulin) 20 units subcut DAILY ipratropium bromide intranasal ipratropium-albuterol 0.5 mg-3 mg(2.5 mg base)/3 mL 3 mL inhalation Q6H PRN lancets (OneTouch UltraSoft Lancets) As directed latanoprost 0.005% 1 drp ophthalmic (eye) BEDTIME mirabegron ER (Myrbetriq) 25 mg PO DAILY 30 days pen needle, diabetic As directed pioglitazone 45 mg PO DAILY rosuvastatin 40 mg PO DAILY sennosides-docusate sodium 8.6-50 mg (Senna with Docusate Sodium) 2 tab-caps (2 x 8.6-50 mg) PO BEDTIME PRN 60 days sertraline 50 mg PO DAILY sertraline 50 mg PO DAILY simethicone (Gas Relief Extra Strength) 0 mg PO spironolactone 25 mg PO DAILY tramadol 50 mg PO Q6H PRN HPI HPI chronic constipation: Details: GI CLINIC VISIT FOR THIS 78-YEAR-OLD FRISIAN-SPEAKING FEMALE FOR FOLLOW-UP OF NAUSEA, DYSPHAGIA, UPPER ABDOMINAL PAIN AND CONSTIPATION Patient returns after a hiatus of 2 years (last seen in 2020) CHRONIC ILLNESSES:?asthma, hypertension, hypercholesterolemia, glaucoma, type 2 diabetes, sleep apnea. ??? TODAY'S VISIT Telephone Sales Consultant Residential ManagerNathanael, [phone] Constipation has been worse and she has not had a BM x 3 days. Stomach started hurting and everything caused gas. Her physician at [facility] gave her a prescription for metamucil and which made her constipation worse. PAST VISIT: Pt is accompanied by her CLERICAL RECEPTIONIST, Usha Last month had stomach pain x 3 weeks She was vomiting and did not have a BM for several days Tried Milk of Magnesia followed by a small BM Unable to take Senna every day since she has to go to the bathroom and is unable to go out for her appointments Took Milk of Magnesia and was completely cleaned out. Pt fell and was seen at [facility] and was prescribed tylenol for abdominal pain Pt was seen by ObGYn and advised surgery for uterine and rectal prolapse. Pt had refused surgery in the past and would like to proceed with surgery now I am not doing well Diagnosed with COVID infection on 08/10/23 Had to go back to the hospital for cough and diagnosed with bronchitis. Complains of chronic constipation - ? related to medications Able to move her bowels - has a feeling of incomplete evacuation. Fell 1.5 years ago and hit her vagina and anus and saw a Electronic Test Technician and diagnosed with uterine prolapse She was offered surgery and pt elected to hold off on the surgery Naatli presents via phone call today for a scheduled FUV. PT n/s their visit in May 2023. Pt was rx'd linzess at their last visit. Pt reports that they are still experiencing difficulties with their sx. Pt reports that she would like to explore other medication options as the linzess has not been helping her as much as she would like. Pt reports having severe diarrhea when taking linzess. Pt feels that she is better off not taking the medication and dealing with the constipation rather than take the linzess. Pt reports that milk of magnesium has been helping slightly but has not been fully resolving their sx. Pt has been obtaining this medication OTC. Pt reports that she would like to be rx'd the senna again as that medication had worked the best for managing her sx in the past. Complains of a lot of gas - like a storm Has not been taking medications for constipation since it causes diarrhea and advised to take a lower dose. Pt states that she feels like she is going to choke because she has the gastritis. ? sometimes I poop too much and sometimes I cannot poop at all. She gave me the senna but I have not gotten it because she needs to write a letter to the insurance for me to get that. ? Has good days and bad days - still has the gastritis and bloating. When she takes Senna she goes all days long She would like a prescription for a Senna preparation she had used in the past and not the Generic one - she was advised to drop off information about which brand of Senna she wants Has not started taking the new medications yet. ? Complains of nausea and vomiting for the past month ? Feels bloated in her stomach. ? Notes vomiting after immediately after eating Feels acid reflux in her throat. ? ? ? Notes mucous in her stools. ? Had 2 BMs today and feels better after she has a BM. ? Takes Pantoprazole and feels better. ? Constipation is better and having a BM daily. ? Sometimes has a little discomfort in the abdomen which resolves with Omeprazole. ? Continues to have an upset stomach when she takes fatty food. ? Skin is very delicate and gets irritaion with the sun - ? Feels her stomach is getting distended since she started taking Anoro ? Gets nausea sometimes and takes Chamomile tea which makes it better. ? Takes Pantoprazole once a day - took two this morning. ? Takes aspirin daily. ? Has a small BM daily with incomplete evacuation. Intermittent straining with passage of hard stools. ? Diagnosed with DM 10 yrs ago ? LABS IN [facility]: 09/02/19 Normal CBC and chem panel, ESR 25 ? 09/13 stool test was negative for H pylori antigen ?IMAGING STUDIES: ? 12/27/[address] scan was negative ? 02/13 gastric Emptying Study showed: ? Retention in the stomach at each time interval was: ? 1 hour 82% (normal 37%-90%) ? 2 hours 67% (normal 30%-60%) ? 3 hours 51% ? 4 hours 23% (normal 0%-10%) ?12/19/18 Abd US showed: ? IMPRESSION: ? There is generalized increase in hepatic echotexture, consistent with ? fatty infiltration or hepatocellular disease. Please correlate ? clinically. No focal hepatic mass or intrahepatic biliary dilatation ? is seen. ?ENDOSCOPIC STUDIES: 12/17/18 EGD and Colon showed: ? Esophagus: Tortuous esophagus with increased tertiary contractions without stricture or ring. ? GE junction at 32 cms. Mild focal esophagitis at GE junction. ? Stomach: Moderate diffuse gastric erythema. Biopsies were obtained from the ? antrum and body. Grade 2 flap valve on retroflexed examination of the cardia. ? Two 6-8 mm benign appearing polyp in the gastric body along the lesser curve - ? one polyp removed with a cold biopsy. ? Duodenum: Normal bulb and descending duodenum. Biopsies were obtained from the ? 3rd part of duodenum to check for celiac disease ? Colonoscopy: ? Three diminutive polyps removed. ? Random biopsies were obtained from the colon. ? Moderate to severe diverticulosis seen in the left colon ? Plan: ? Await pathology results ? Continue present medications (Omeprazole at 20 mg PO once daily) ? Patient has an appointment on 12/27/18 in the GI Clinic with Luciana Gutierrez M.D.- ? Repeat Colonoscopy interval based on path results - in 3-5 years if ? polyps are adenomatous and 10 years if polyps are hyperplastic. ? Above findings were reviewed with the patient and relevant handouts ? were provided if indicated. ? BIOPSIES SHOWED: ? A. Small bowel, biopsy: Small bowel mucosa within normal limits; preserved ? villous architecture and no increase in intraepithelial lymphocytes. ? B. Stomach, antrum, biopsy: Gastric antral and body mucosa with mild chronic ? inactive gastritis; negative for Helicobacter pylori, intestinal metaplasia and ? dysplasia. ? C. Stomach, body, biopsy: Gastric body mucosa within normal limits; negative ? for Helicobacter pylori, intestinal metaplasia and dysplasia. ? D. Stomach, polyp, biopsy: Fundic gland polyp; negative for Helicobacter ? pylori, intestinal metaplasia and dysplasia. ? E. Colon, random, biopsy: Colonic mucosa within normal limits; negative for ? active, chronic and microscopic colitis. ? F. Colon, transverse, polyp, polypectomy: Colonic mucosa with a prominent ? lymphoid aggregate; negative for a hyperplastic or neoplastic process. ? G. Rectum, polyp, polypectomy: Hyperplastic polyp. [facility] Medical History Dysphagia Tracheobronchomalacia ROXIE (obstructive sleep apnea) Essential hypertension Atherosclerotic cardiovascular disease Urinary incontinence Obese Dyslipidemia Anxiety and depression Gastric pain Sinusitis Chronic allergic rhinitis Asthma Cough Cough Diabetes mellitus Fibromyalgia Pulmonary nodules Surgical History H/O heart artery stent Hx of esophagogastroduodenoscopy History of bronchoscopy Hx of colonoscopy H/O left knee surgery H/O breast biopsy H/O: hysterectomy Family History Father Hypertension Mother Hypertension Diabetes Daughter Diabetes Brother No problems noted. Social History Household Members: Children Alcohol intake: never Patient Tobacco Use Status: Never used Tobacco Second Hand Smoke Exposure: Yes Review of Systems Const All systems reviewed & are unremarkable except as noted in HPI and below ENT Reports Normal hearing present Neuro Reports Normal hearing present and Denies Abnormal speech present Physical Exam Vital Signs: Last Vital Signs Pulse 97 03/31/24 08:00 BP 119/65 03/31/24 08:00 Pulse Ox 100 03/31/24 08:00 Oxygen Delivery Method Room Air 03/31/24 08:00 BMI result Body Mass Index 34.3 Const General: no acute distress and anxious Nutritional Appearance: overweight Orientation/consciousness: patient oriented x3 Limitations: language barrier HEENT Head: Yes normal to inspection Ears: hearing grossly normal bilaterally Eyes Sclerae: sclerae normal Pupils: Equal, round and reactive pupils present Neck Neck: Yes normal visual inspection Chest Chest palpation & inspection: normal inspection of the chest Resp Effort & Inspection: normal respiratory effort Auscultation: clear to auscultation bilaterally Cardio Palpation: normal PMI Rate: regular rate Rhythm: regular rhythm Heart sounds: S1 normal heart sound present, S2 normal heart sound present and no murmurs GI Palpation (GI): Soft to palpation, nontender and No hepatosplenomegaly present Auscultation: normal bowel sounds Rectal Exam - Female: normal sphincter tone and External hemorrhoid(s) present (a few shima-anal skin tags, no prolapsing hemorrhoids were seen)) Skin General skin exam: no rashes or lesions noted Neuro General: patient oriented x3, gait normal and moves all extremities Cranial nerves: Yes Equal, round and reactive pupils present and Yes Normal hearing present Speech: No Abnormal speech present Psych Appearance: grossly normal Mental Status: mental status grossly normal Assessment & Plan Assessment & Plan (1) Chronic constipation: Code(s): K59.09 - Other constipation Category: Medical (2) Colon cancer screening: Comment: 12/14 COLONOSCOPY SHOWED: Three diminutive/hyperplastic polyps removed and left-sided diverticulosis noted. Random biopsies obtained from the colon were normal. It's unclear if patient has had adenomatous polyps removed during her past colonoscopy. Therefore, repeat colonoscopy is advised in 5 years (due 11/2023) Code(s): Z12.11 - Encounter for screening for malignant neoplasm of colon Category: Medical (3) Rectocele with complete uterovaginal prolapse: Code(s): N81.4 - Uterovaginal prolapse, unspecified Category: Medical (4) Dysphagia: Code(s): R13.10 - Dysphagia, unspecified Category: Medical Plan 78 YF with asthma, hypertension, hypercholesterolemia, glaucoma, type 2 diabetes, GERD followed in GI for GERD, Diabetic gastroparesis, nausea and vomiting and chronic constipation. Past EGD showed mild esophagitis and gastritis. Gastric biopsies were negative for Helicobacter pylori. Gastric emptying study confirmed a diagnosis of diabetic gastroparesis. Retention in the stomach at each time interval was: 1 hour 82% (normal 37%-90%) 2 hours 67% (normal 30%-60%) 3 hours 51% 4 hours 23% (normal 0%-10%). Patient was advised to start simethicone for abdominal bloating, mirtazapine for gastroparesis and Linzess for constipation She discontinued Linzess since it was causing diarrhea and is requesting a prescription for Senna Plus - prescription was sent. Patient was advised to resume Linzess at 72 mcg every other day for 1-2 weeks and increase to daily if she continued to have constipation. 03/01/23 Pt was prescribed Linzess 72 mcg daily 08/16/23 Pt advised to take Senna plus 2 tab every other day at bedtime 11/13/23 Pt was seen by ObGYn and advised surgery for uterine and rectal prolapse. Pt had refused surgery in the past and would like to proceed with surgery now Pt was advised to start Famotidine 20 mg twice daily. Referred to Uro-gynecology for repair of rectocele with complete utero-vaginal prolapse. 03/31/24 Constipation has been worse and she has not had a BM x 3 days. Stomach started hurting and everything caused gas. Pt was advised to take a fleet enema Dulcolax 2 tab daily x 2 days for constipation Then start Lubiprostone 8 mcg twice daily for constipation FU appt in 4 weeks Medications: New bisacodyl (Fleet Bisacodyl) 10 mg (30 mL) [place] DAILY PRN 37 mL 3RF constipation 30 days K59.09 - Other constipation bisacodyl (Dulcolax (bisacodyl)) 10 mg (2 x 5 mg) PO BEDTIME 4 tabs 3RF 2 days K59.09 - Other constipation lubiprostone (Amitiza) 8 mcg PO BID 60 caps 3RF 30 days K59.09 - Other constipation Coding Level of Care Code Est Pt Level 4 (45452) Diagnoses Chronic constipation K59.09 Colon cancer screening Z12.11 Rectocele with complete uterovaginal prolapse N81.4 Dysphagia R13.10 Time Spent (min) 21
--- OUTSIDE RECORDS SUMMARY | 2024-03-31 07:55 | XMS_ITS | Encounter Summary ---
Author Organization [employer] Address [address] [facility] [address] [place] [address] Care Team Providers Care Technical Services Specialist Name Role Phone Liset Mitchell MD Primary Care Provider [phone] Reason for Visit * Reason Comments Med Change Request Encounter Details Date Type Department Care Team ([facility] Contact Info) Description 10/26/2023 Refill [facility] [address] [place], [place] [phone] Liset Mitchell MD [address] [place] [address] Social History Tobacco Use Types Packs/Day Years [...] documented as of this encounter Care Teams Technical Services Specialist Relationship Specialty Start Date End Date Liset Mitchell MD [address] [place] [id number] PCP - General Family Medicine 09/14/20 documented as of this encounter
--- OUTSIDE RECORDS SUMMARY | 2024-03-31 07:55 | XMS_ITS | Encounter Summary ---
Author Organization [employer] Address [address] [facility] [address] [place] [address] Care Team Providers Care Wiener Packer Name Role Phone Liset Mitchell MD Primary Care Provider [phone] Reason for Visit * Reason Onset Date Comments Results 10/11/2023 Appointment Request 10/11/2023 Encounter Details Date Type Department Care Team ([facility] Contact Info) Description 10/11/2023 Telephone [facility] MED[facility] [address] [place] [address] Liset Mitchell MD [address] [place] [id number] Results; Appointment Request Social History Tobacco Use Types [...] encounter Miscellaneous Notes * Telephone Encounter - Wing Yovanny RN - 10/11/2023 5:10 PM EDT See note from 10/07. * Telephone Encounter - Daniel Franklin - 10/11/2023 9:53 AM EDT Tc from patient requesting a call with the results of x-ray of the shoulders as well as a appt in regards to getting a PSYCHOLOGIST states is in need documented in this encounter Plan of Treatment Not on file documented as of this encounter Visit Diagnoses Not on filedocumented in this encounter Additional Health Concerns Assessment Noted Time PHQ-9 Depression Total Score: 0 04/13/19 23 10:04 AM EST documented as of this encounter Care Teams Wiener Packer Relationship Specialty Start Date End Date Liset Mitchell MD [address] [place] [address] PCP - General Family Medicine 09/14/20 documented as of this encounter
--- OUTSIDE RECORDS SUMMARY | 2024-03-31 07:55 | XMS_ITS | Encounter Summary ---
Author Organization [email or web address] Address [address] [facility] [address] [place] [address] Care Team Providers Care Flavorings Compounder Name Role Phone Liset Mitchell MD Primary Care Provider Reason for Visit * Reason Comments Med Change Request Encounter Details Date Type Department Care Team ([facility] Contact Info) Description 09/08/2023 Refill [facility] PEDS [address], [place] [id number] Rubio Blum MD [address] [place] [address] Social History Tobacco Use Types Packs/Day Years Used Date Smoking Tobacco: Never Passive Smoke Exposure: Never Smokeless Tobacco: Never Alcohol Use Standard Drinks/Week Comments Never 0 (1 standard drink = 0.6 oz pur e alcohol) Depression Answer Date Recorded Patient Health Questionnaire-9 Score 0 04/13/2022 Housing Stability Answer Date Recorded What is your housing situation today? I have ciromiriam nogueira 12/12/[address] you [...] documented as of this encounter Care Teams Flavorings Compounder Relationship Specialty Start Date End Date Liset Mitchell MD [address] [place] [id number] PCP - General Family Medicine 09/14/20 documented as of this encounter
--- OUTSIDE RECORDS SUMMARY | 2024-03-31 07:55 | XMS_ITS | Encounter Summary ---
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 Name Role Phone Liset Mitchell MD Primary Care Provider [phone] Reason for Visit * Reason Onset Date Comments ER Follow-up 05/15/2023 Encounter Details Date Type Department Care Team ([facility] Contact Info) Description 05/15/2023 Telephone [facility] MEDICINE [address] [place] [address] Liset Mitchell MD [address] [place] [id number] ER Follow-up Social History Tobacco Use Types Packs/Day Years [...] encounter Miscellaneous Notes * Telephone Encounter - Julieta Montalvo RN - 05/15/2023 6:44 PM EDT TC returned to patient regarding messages below. No answer. LM to call us back in [employer] [place]. Routing back to [facility] nurses. * Telephone Encounter - Sammy Hall - 05/15/2023 4:01 PM EDT Tc from pt returning phone call. * Telephone Encounter - Julieta Montalvo RN - 05/15/2023 3:29 PM EDT TC placed to patient x 2 regarding ED visit below via [employer] and without court interpreter line. Patient has extended f/u with PCP on 05/25/23. Noted in appointment about recent ED visit for R shoulder pain/dislocation. LM for patient in [place] that we are calling to check in and hope she is feeling better, remindingof upcoming appointment with PCP on 05/25/23 @ 11:15 and asking her to call us if she needs anythingprior to this appointment or needs a sooner appointment. Routing to PCP so she is aware. Patient calling to report ED visit on : Date: 05/13 Hospital: [facility] [place] Seen for: Extremity Injury, Upper shoulder pain while taking x-rays Patient advised will forward to team nurse for follow up * Telephone Encounter - Daniel Rigoberto - 05/15/2023 11:06 AM EDT Patient calling to report ED visit on : Date: 05/13 Hospital: [facility] [place] Seen for: Extremity Injury, Upper shoulder pain while taking x-rays Patient advised will forward to team nurse for follow up documented in this encounter Plan of Treatment Not on file documented as of this encounter Visit Diagnoses Not on filedocumented in this encounter Additional Health Concerns Assessment Noted Time PHQ-9 Depression Total Score: 0 04/13/19 23 10:04 AM EST documented as of this encounter Care Teams Spraying Machine Operator Relationship Specialty Start Date End Date Liset Mitchell MD [address] [place] [address] PCP - General Family Medicine 09/14/20 documented as of this encounter
--- OUTSIDE RECORDS SUMMARY | 2024-03-31 07:55 | XMS_ITS | Clinical Summary ---
Author Organization [employer] Address [address] [place] [address] Care Team Providers Care Basket Bottom Machine Operator Name Role Phone Liset Mitchell MD Primary Care Provider [phone] Allergies Active Allergy Reactions Criticality Noted Date Comments Acetaminophen Nausea And Vomiting 07/27/2022 Empagliflozin 07/27/2022 Other reaction(s): vaginal itch Ezetimibe 11/04/2021 Other reaction(s): side effects Fluticasone 07/27/2022 Other reaction(s): lip swelling Hydrocodone Nausea And Vomiting 07/27/2022 Ibuprofen 07/27/2022 Other reaction(s): Stomach Upset Lisinopril 05/25/2023 Metformin 07/27/2022 Other reaction(s): stomach pain Molds & Smuts 02/07/2021 Oxycodone Nausea And Vomiting 07/27/2022 Sitagliptin 07/27/2022 Other reaction(s): stomach pain Umeclidinium High 07/26/2022 Other reaction(s): Chest Pain Medications sennosides (Senokot) 8.6 MG tablet take 1 Tablet by oral route 2 times every day Active [facility] Artificial Tears 1-0.3 % solution INSTILL 1 DROP INTO BOTH EYES FOUR TIMES DAILY 11/16/19 22 Active latanoprost (Xalatan) 0.005 % ophthalmic solution Administer 1 drop into both eyes at bedtime. 03/17/19 23 Active ipratropium-albu terol (Duo-Neb) 0.5-2.5 mg/3 mL nebulizer solution INHALE 1 VIAL VIA NEB EVERY 6 HOURS NEEDED FOR WHEEZING 02/11/20 22 Active FreeStyle lancets USE 4 TIMES A DAY BEFORE MEALS AND NIGHTLY 11/22/19 22 Active Lantus SoloStar 100 UNIT/ML pen 26 Units. 04/12/19 23 Active hydrOXYzine pamoate (Vistaril) 25 MG capsule Take 25 mg by mouth 3 times daily. 12/15/19 22 Active albuterol (Ventolin HFA) 108 (90 Base) MCG/ACT inhaler 01/08/20 18 Active aspirin 81 MG chewable tablet Chew 1 tablet at bed time. Active cyanocobalamin (Vitamin B-12) 1000 MCG tablet Take 1,000 mcg by mouth in the morning. Active fluticasone (Flonase) 50 MCG/ACT nasal sprayIndications :Rhinosinusitis Administer 2 sprays into each nostril 2 times daily. 16 g 5 04/13/19 23 Active lidocaine (Lidoderm) 5 % patchIndications :Lumbar back pain Apply 1 patch topically in the morning. Remove & discard patch within 12 hours or as directed by MD. 90 patch 1 04/13/19 23 Active magnesium 30 MG tablet Take 30 mg by mouth 2 times daily. Active melatonin 10 MG tabletIndication s:Insomnia, unspecified type Take 1 tablet (10 mg) by mouth if needed at bedtime (insomnia). 90 tablet 1 04/13/19 23 Active polyethylene glycol, PEG, 3350 (MiraLax) 17 GM/SCOOP powderIndication s:Constipation, unspecified constipation type Take 17 g by mouth in the morning. 527 g 2 05/20/19 23 Active nitroglycerin (Nitrostat) 0.[address] 1 TABLET UNDER TONGUE EVERY 5 MIN NEEDED FOR CHEST PAIN, MAX OF 3 DOSES/15 MIN CALL 911/SEEK MEDICAL ATTENTION IF PAIN PERSISTS 07/05/19 23 Active montelukast (Singulair) 10 MG tablet Take 10 mg by mouth at bedtime. 07/27/19 23 Active Advair HFA 115-21 MCG/ACT inhaler INHALE 2 PUFFS BY MOUTH EVERY 12 HOURS 07/27/19 23 Active lidocaine (Xylocaine) 2 % solution 07/27/19 23 Active omeprazole (PriLOSEC) [address] capsule Take 1 capsule (20 mg) by mouth before breakfast. Do not crush or chew. 90 capsule 1 09/15/19 23 Active ketotifen (Zaditor) 0.025 % ophthalmic solution ADMINISTER 1 DROP INTO BOTH EYES 2 TIMES DAILY. 10 mL 09/19/19 23 Active linaCLOtide (Linzess) 145 MCG capsule Take 1 capsule (145 mcg) by mouth before breakfast. Do not crush or chew. 30 capsule 11 10/26/19 23 Active Continuous Blood Gluc [employer] (FreeStyle Aristides reader) deviceIndication s:Type 2 diabetes mellitus with other circulatory complication, without long-term current use of insulin (CMS/HCC) Inject under the skin before breakfast, before lunch, before evening meal, and at bedtime. 1 each 10/26/19 23 Active Continuous Blood Gluc Sensor (FreeStyle Aristides 2 Sensor) miscIndications: Type 2 diabetes mellitus with other circulatory complication, without long-term current use of insulin (CMS/HCC) 1 Units before breakfast, before lunch, before evening meal, and at bedtime. 2 each 10/26/19 Active Myrbetriq 25 MG 24 hr tabletIndication s:Unspecified urinary incontinence TAKE 1 TABLET BY MOUTH EVERY DAY IN THE MORNING 30 tablet 2 12/28/19 23 Active simethicone (Gas Relief Extra Strength) 125 MG chewable tablet TAKE 1 TABLET BY MOUTH NEEDED AFTER MEALS AND AT BEDTIME FOR GAS 360 tablet 1 03/27/19 24 Active sucralfate (Carafate) 1 GM/10ML suspensionIndica tions:Gastroesop hageal reflux disease, unspecified whether esophagitis present Take 10 mL (1 g) by mouth every 8 (eight) hours. 1000 mL 3 04/27/19 24 Active azelastine (Optivar) 0.05 % ophthalmic solution 04/29/19 24 Active budesonide (Pulmicort) 0.5 MG/2ML nebulizer solution REALIZAR 1 TERAPIA RESPIRATORIA DOS VECEAS AL FREDDIE Active loratadine (Claritin) 10 MG tabletIndication s:Seasonal Allergic Rhinitis Take by mouth. Activ e aluminum-magnesi um hydroxide-simeth icone (Maalox MAX) 400-400-40 MG/5ML suspension Take 20 mL by mouth if needed for indigestion or heartburn. 355 mL 11 05/25/19 24 Active nystatin (Mycostatin) 077200 UNIT/ML suspension TAKE 1ML BY MOUTH 4 TIMES DAILY FOR 7 DAYS. (THRUSH IN MOUTH). SWISH AND SPIT (DO NOT SWALLOW) 28 mL 09/05/19 24 Active hydrOXYzine pamoate (Vistaril) 50 MG capsule Take 1 capsule (50 mg) by mouth 1 (one) time for 1 dose. 5 capsule 09/14/19 24 Active hyoscyamine (Levsin/SL) 0.125 MG SL tablet Take 1 tablet (0.125 mg) by mouth every 6 (six) hours if needed for cramping for up to 10 days. 30 tablet 10/26/19 24 Active Diclofenac Sodium 1 % gelIndications:M usculoskeletal pain Apply 2 g topically every 6 (six) hours. 200 g 3 11/12/19 24 Active baclofen (Lioresal) 10 MG tabletIndication s:Musculoskeleta l pain Take one tablet TID PRN 30 tablet 11/12/19 24 Active sertraline (Zoloft) 50 MG tabletIndication s:Anxiety TAKE 1 TABLET BY MOUTH EVERY DAY 90 tablet 1 01/21/20 24 Active spironolactone (Aldactone) 25 MG tabletIndication s:Hypertension, unspecified type TAKE 1 TABLET BY MOUTH EVERY DAY IN THE MORNING 90 tablet 1 01/21/20 24 Active rosuvastatin (Crestor) 40 MG tablet TAKE 1 TABLET BY MOUTH EVERY MORNING 90 tablet 1 01/21/20 24 Active psyllium (Metamucil Smooth Texture) 58.6 % powderIndication s:Constipation, unspecified constipation type Take 5.12 g (3 g of fiber) by mouth Once per day. Mix in 8 oz of water. 283 g 11 01/29/20 24 025 Active Humidifier miscIndications: Congestion of paranasal sinus To use daily 1 each 02/25/20 24 Active pioglitazone (Actos) 45 MG tablet Take 1 tablet by mouth Once per day. 12/13/19 24 Active Senexon-S 8.6-50 MG tablet TAKE 2 TABLETS BY MOUTH AT BEDTIME NEEDED CONSTIPATION, PLEASE TAKE EVERY OTHER DAY AT BEDTIME 10/26/19 24 Active ipratropium (Atrovent) 0.03 % nasal spray ADMINISTER 1-2 SPRAYS DAILY NEEDED 11/07/19 24 Active BD Pen Needle Geetha U/F 32G X 4 MM misc 1 each by Other route in the morning. 12/25/19 24 Active famotidine (Pepcid) 20 MG tablet 20 MG ORALLY 2 TIMES A DAY FOR 90 DAYS Active Repatha SureClick 140 MG/ML injection INJECT 140 MG SUBCUTANEOUSLY EVERY 2 WEEKS Active clopidogrel (Plavix) 75 MG tablet Take 75 mg by mouth Once per day. Active cetirizine (ZyrTEC) 10 MG tablet Take 10 mg by mouth in the morning. Active amLODIPine (Norvasc) 5 MG tablet Take 1 tablet (5 mg) by mouth Once per day. 90 tablet 1 02/28/19 25 Active Active Problems Problem Noted Date Diagnosed Date Abdominal bloating 10/26/2023 Assessment & Plan (10/30/2023 7:14 PM EDT): Patient has hx of chronic bloating, constipation and GERD. She does have a GI specialist. She does have a hx of gas-bloat syndrome, encouraged adherence with PPI, simethicone and also add zofran. Given episodes of cramping pain will provide trial of hyoscysamine but encouraged patient to f/up with her specialist. 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 Assessment & Plan (08/17/2022 12:24 PM EDT): Will refer to cardiology of further evaluation. Obstructive sleep apnea syndrome 04/13/2022 Hypertension 04/13/2022 Assessment & Plan (02/29/2024 9:30 AM EST): Continue to monitor leg edema and BP at home, increasing Amlodipine to 5 mg. Relevant Medication Amlodipine (Norvasc) 5 mg tablet Assessment & Plan (05/11/2023 2:36 AM EDT): Elevated BP upon visit 150/80 mmHg. Patient BP has been controlled but lately has been stressed due to grandson's suicidal . Continue current regimen and will F/u on HTN. Assessment & Plan (08/17/2022 12:24 PM EDT): Controlled. Continue current regimen and follow up in 4-6 weeks. Assessment & Plan (05/19/2022 12:48 PM EDT): Controlled, continue with current regimen. Hyperlipidemia 04/13/2022 Assessment & Plan (05/19/2022 12:51 PM EDT): Reviewed labs with patient, will restart pravastatin. Return to care in 3 months and recheck lipids at that moment Gastroesophageal reflux disease 04/13/2022 Diastolic dysfunction 04/13/2022 Asthma 04/13/2022 Lumbar back pain 04/13/2022 Elevated total protein 10/25/2021 Overview (04/13/2022): Last Assessment & Plan: She did not have any monoclonal proteins on serum protein electrophoresis studies. Hyperlipidemia LDL goal <100 10/25/2021 Overview (01/12/2023): Last Assessment & Plan: Controlled based on the last lipid panel HDL was 69 mg/dL and she continues on atorvastatin 80 mg. Type 2 diabetes mellitus wit h microalbuminuria, with long-term current use of insulin 2020 01/12/2023 Overview (01/12/2023): Last Assessment & Plan: She seems to have good fasting glucose levels and if she has to eat at nighttime in order to prevent hypoglycemia then that means that she is getting too much Lantus decreasing the dose to 20 units. She states that she is afraid to eat. I told her that I am decreasing the dose and if she continues to have lows overnight then the Lantus should be decreased further. She should continue pioglitazone 45 mg. However I do see postprandial hyperglycemia. Maybe she is checking too soon after eating? I think I will have a better idea once she starts using continuous glucose monitor. In the meantime she should follow-up with me in 3 months. Assessment & Plan (10/29/2023 3:16 AM EDT): Glucose: 105. Controlled. Assessment & Plan (08/09/2023 1:54 PM EDT): A1C: 7.0 Continue current treatment regimen. Continue glucose monitoring and will recheck DM at next F/U. Labs: glucose, A1C Tubular adenoma of colon 07/19/2018 Dysuria 07/01/2018 Assessment & Plan (10/29/2023 3:21 AM EDT): Urinalysis, Complete, with Reflex to Culture Assessment & Plan (08/17/2023 10:10 AM EDT): C/o dysuria will send testing and antibiotics Herniation of rectum into vagina 05/17/2018 Dizziness 04/10/2018 Recurrent herpes labialis 04/08/2018 Multiple nodules of lung 04/08/2018 Lung mass 04/08/2018 Generalized anxiety disorder 04/08/2018 Cough 02/28/2018 Assessment & Plan (05/30/2023 9:12 PM EDT): Patient discontinued Metropolol Succinate 25 mg. Prescribed Carvedilol 3.125 mg. Discontinue if negative side effects begin. F/u with Case Supervisor for review of heart medication. Labs: Rapid Covid-19, Sars CoV-2 RNA Assessment & Plan (08/28/2022 1:02 PM EDT): Likely associated with asthma and postnasal drip. Will switch cetirizine to lisa, given antitussive medication. Recommended compliance with medications. F/up if symptoms persistent. Normal lung exam Raised TSH level 01/15/2018 Neck pain 12/18/2017 Chronic systolic heart failure 10/17/2017 Assessment & Plan (07/18/2023 2:27 PM EDT): Patient complains of joint pain, lower extremity swelling associated with carvedilol, upon review she also had complains with metoprolol, risk vs benefit discussed, swill switch to bisoprolol, told her to talk with her division leader as she has hx of CAD. Assessment & Plan (05/26/2023 2:25 PM EDT): At this time patient is fine with no concerns. Continue same treatment plan. Assessment & Plan (10/25/2022 12:13 PM EDT): Patient requested further opinion pertaining to CABG Mild intermittent asthma 07/06/2017 Atypical chest pain 04/20/2017 Osteoarthritis of knee 03/16/2017 Obesity 03/18/2015 Moderate persistent asthma 03/18/2015 Arthritis 03/18/2015 Type 2 diabetes mellitus 03/18/2015 Assessment & Plan (05/11/2023 2:38 AM EDT): A1C above 7 (7.3%). Continue same treatment regimen continue glucose monitoring and will recheck DM at next F/U Labs: glucose, A1C Assessment & Plan (10/25/2022 12:26 PM EDT): Patient with history of DM had 3 episodes of low glucose levels. Decrease dose of Lantus from 35 units to 26 units and resend continous glucose monitor. Assessment & Plan (09/14/2022 5:07 PM EDT): POC BG 185 Assessment & Plan (08/17/2022 12:30 PM EDT): Improved. At target A1C < 8.5%, POC A1C 6.9%. Continue current regimen. Assessment & Plan (05/19/2022 12:50 PM EDT): Lab Results Component Value Date HGBA1C 8.4 (H) 05/16/2022 Target < 8.5% given age and comorbid condition. Hold off med changes, repeat testing in 3 months. Recommended switching highly processed carb diet for introducing more lean protein and fiber to her diet. Depressive disorder 03/18/2015 Constipation 03/18/2015 Assessment & Plan (10/25/2022 12:27 PM EDT): Improved with Linzess. Will resend. Assessment & Plan (05/19/2022 12:52 PM EDT): Uncontrolled. Will incr linzess. Also recommended incr intake of fiber and water. Walking. Also will rx miralax for clean out. RTC if no improvement. Cobalamin deficiency 03/18/2015 Anxiety 03/18/2015 Allergic rhinitis 03/18/2015 Resolved Problems Problem Noted Date Diagnosed Date Resolved Date Acute exacerbation of chroni c obstructive airways disease 07/19/2018 10/25/2022 Encounters Date Type Department Care Team Description 03/13/2024 Telephone [facility] [address] [place] [phone] Liset Mitchell MD Appointment Request 03/13/2024 Orders Only GENERIC EXTERNAL DATA DEPARTMENT Provider, Generic External Data 03/13/2024 Telephone [facility] [address] [place] [phone] Liset Mitchell MD Nurse Triage 02/29/2024 10:00 AM EST Telemedicine [facility] [address] [place], [place] [phone] Liset Mitchell MD Primary hypertension (Primary Dx); Hyperlipidemia LDL goal <100 02/29/2024 Travel 02/25/2024 2:40 PM EST Office Visit [facility] [address] [place] [address] [phone] Sera Clark MD Primary hypertension (Primary Dx); Congestion of paranasal sinus 02/25/2024 Telephone [facility] [address] [place] [address] Liset Mitchell MD Nurse Triage 02/05/2024 Orders Only [facility] [address] [place] [address] Anne Marie Schwartz MD 01/30/2024 Orders Only [facility] [address] [place] [phone] Anne Marie Schwartz MD 01/30/2024 Telephone [facility] [address] [place] [phone] Liset Mitchell MD Medication Question 01/29/2024 1:40 PM EST Office Visit [facility] [address] [place], [place] [phone] Leslye Stanton MD Benign hypertension (Primary Dx); Constipation, unspecified constipation type 01/29/2024 Travel 01/29/2024 Telephone [facility] [address] [place], [place] [phone] Liset Mitchell MD ER Follow-up 01/28/2024 Orders Only GENERIC EXTERNAL DATA DEPARTMENT Provider, Generic External Data 01/28/2024 Telephone [facility] [address] [place] [phone] Liset Mitchell MD Nurse Triage 01/28/2024 Telephone [facility] [address] [place], [place] [phone] Liset Mitchell MD Nurse Triage 01/23/2024 Orders Only GENERIC EXTERNAL DATA DEPARTMENT Provider, Generic External Data 01/21/2024 Refill [facility] [address] [place] [phone] Liset Mitchell MD Anxiety; Hypertension, unspecified type 01/15/[address] [phone] Liset Mitchell MD c/b requested from Last 3 Months Immunizations Name Administration Dates Next Due Influenza injectable quadriv alent IIV4 with preservative 12/02/2015,11/13/2014 Influenza, High Dose Seasona l, Preservative Free 02/06/2019,01/09/2018 Influenza, IIV3, injectable 12/02/2015,0 11/13/2014,11/21/2013,11/21,12/19/2012,11/13/2011,04/19/2011 ,10/25/2009,10/29/2008 Influenza, Split (incl. jayme fied surface antigen) 12/19/2012,11/13/2011 Influenza, trivalent, adjuvanted 04/06/2017 Pneumococcal Conjugate PCV 13 03/18/2015, 016 Pneumococcal Conjugate PCV 20 01/04/2024 Pneumococcal Polysaccharide PPSV23 03/25/2011,,07/15/2001 Td (adult), unspecified 11/04/1997 Tdap 03/27/2023,05/21/2012,05/21/2012 Zoster, live 04/01/2014,04/01/2014 Social History Tobacco Use Types Packs/Day Years Used Date Smoking Tobacco: Never Passive Smoke Exposure: Never Smokeless Tobacco: Never Tobacco Cessation:Counseling Given: Not Answered Alcohol Use Standard Drinks/Week Comments Never 0 [...] Orientation Straight 10/25/2022 11 :36 AM EDT Last Filed Vital Signs Vital Sign Reading Time Taken Comments Blood Pressure 151/85 02/25/2024 1:49 PM EST Pulse 90 02/25/2024 1:49 PM EST Temperature 36.2 ??C (97.1 ??F) 02/25/2024 1:49 PM ES T Respiratory Rate 19 02/25/2024 1:49 PM EST Oxygen Saturation 98% 02/25/2024 1:49 PM EST Inhaled Oxygen Concentration - - Weight 66.2 kg (146 lb) 02/25/2024 1:49 PM EST Height 149.9 cm (4' 11 ) 02/25/2024 1:49 PM EST Body Mass Index 29.49 02/25/2024 1:49 PM EST Plan of Treatment Health Maintenance Due Date Last Done Comments Diabetes: Foot Exam 12/07/1955 Eye Exam 12/07/1955 Hepatitis C Screening 12/07/1963 Zoster Vaccines (2 of 3) 05/27/2014 04/01/2014, 05/2014 RSV Patients and Patients Aged 60 years or older (1 - 1-dose 75+ series) 2020 COVID-19 Vaccine ( season) 2023 02/02/2021, 07/15/2020, 06/24/2020 Influenza Vaccine (#1) 2023 9, 01/09/2018, 04/06/2017, Additional history exists Diabetes: Hemoglobin A1C 03/25/2024 024, 08/03/2023, 06/21/2023, Additional history exists Lipid Panel 10/09/2024 10/10/2023, 04/27, 09/14/2020 Tobacco Screening 02/24/2025 02/25/2024 Alcohol/Substance Use Screening 02/28/2025 02/29/2024 Depression Screening 02/28/2025 02/29/2024, 02/28/19 25 SDOH Screening 02/28/2025 02/29/2024 DTaP/Tdap/Td Vaccines (4 - Td or Tdap) 03/27/2033 03/27/2023, 05/21/2012, 05/21/2012, Additional history exists Pneumococcal Vaccine: 50+ Years Completed 01/04/2024, 03/18/2015, 03/18/2015, Additional history exists HIB Vaccines Aged Out No longer eligi ble based on patient's age to complete this topic HPV Vaccines Aged Out No longer eligi ble based on patient's age to complete this topic Hepatitis A Vaccines Aged Out No long er eligible based on patient's age to complete this topic Hepatitis B Vaccines Aged Out No long er eligible based on patient's age to complete this topic IPV Vaccines Aged Out No longer eligi ble based on patient's age to complete this topic Meningococcal Vaccine Aged Out No rita nato eligible based on patient's age to complete this topic RSV under 20 months Aged Out No longe r eligible based on patient's age to complete this topic Rotavirus Vaccines Aged Out No longer eligible based on patient's age to complete this topic Procedures Procedure Name Priority Date/Time Associated Diagnosis Comments OBSX1 Routine 03/13/2024 1:30 PM EST COMPREHENSIVE METABOLIC PANEL Routine 03/13/2024 12:34 PM EST PROTHROMBIN TIME-INR Routine 03/13/2024 12:34 PM EST URINALYSIS WITH REFLEX MICROSCOPIC Routine 03/13/2024 12:34 PM EST CBC WITH AUTO DIFFERENTIAL Routine 03/13/2024 12:34 PM EST POCT INFLUENZA B (ID NOW RAPID MOLECULAR) Routine 02/25/2024 2:30 PM EST Congestion of paranasal sinus POCT INFLUENZA A (ID NOW RAPID MOLECULAR) Routine 02/25/2024 2:30 PM EST Congestion of paranasal sinus POCT COVID-19 AG VILLARREAL ID NOW Routine 02/25/2024 1:52 PM EST Congestion of paranasal sinus HIGH SENSITIVITY TROPONIN I Routine 01/28/2024 6:42 PM EST HIGH SENSITIVITY TROPONIN I Routine 01/28/2024 4:46 PM EST B TYPE NATRIURETIC PEPTIDE (BNP) Routine 01/28/2024 4:46 PM EST BASIC METABOLIC PANEL Routine 01/28/2024 4:46 PM EST HEPATIC FUNCTION PANEL Routine 4:46 PM EST CBC WITH AUTO DIFFERENTIAL Routine 01/28/2024 4:46 PM EST ECG 12-LEAD Routine 01/26/2024 4:05 PM EST XR CHEST PA AND LATERAL Routine 01/26/2024 3:41 PM EST HIGH SENSITIVITY TROPONIN I Routine 01/23/2024 12:52 PM EST LIPID PANEL, STANDARD Routine 10/10/2023 2:01 PM EDT POCT GLYCATED HEMOGLOBIN, TOTAL Routine 08/03/2023 10:59 AM EDT Type 2 diabetes mellitus with microalbuminuria, with long-term current use of insulin ([facility]) from Last 3 Months or Most Recently Relevant to Health Maintenance Results * OBSX1 (03/13/2024 1:30 PM EST) Pathologist [facility] OBS1 NEGATIVE NEGATIVE [facility] 03/13/2024 1:30 PM EST 03/13/2024 1:33 PM EST us Generic External Data Provider LAB BLOOD ORDERAB LES Final Result [facility] [address] [place] [phone] * CBC auto differential (03/13/2024 12:34 PM EST) Only the most recent of2 resultswithin the time period is included. [facility] White Blood Count 6.9 4.8 - 10.8 X10*3/uL [facility] Red Blood Count 4.46 4.20 - 5.50 X10*6/uL [facility] Hemoglobin 13.8 12.0 - 16.0 g/dl [facility] Hematocrit 39.9 37.0 - 47.0 % [facility] Mean Corpuscular Volume 89.5 80.0 - 98.0 fL [facility] Mean Corpuscular Hemoglobin 30.9 27.0 - 33.0 pg [facility] Mean Corpuscular HGB Conc 34.6 31.0 - 35.0 g/dl [facility] Red Cell Distribution Width 12.8 11.0 - 16.0 % [facility] Platelet Count 200 160 - 400 X10*3/uL [facility] Mean Platelet Volume 10.6 9.4 - 12.3 fL [facility] Neutrophils Percent Auto 69.2 45 - 73 % [facility] Imm Gran Pct Auto 0.4 0.0 - 0.4 % [facility] Lymphocytes Percent Auto 22.4 20 - 40 % [facility] Monocytes Percent Auto 6.4 2 - 11 % [facility] Eosinophils Percent Auto 0.9 0 - 4 % [facility] Basophils Percent Auto 0.7 0 - 2 % [facility] NRBC Pct Auto 0.0 0.0 - 0.2 /100WBC [facility] Neutrophils Absolute Auto 4.7 2.0 - 8.3 x10*3/uL [facility] Imm Gran Abs Auto 0.03 0.00 - 0.03 X10*3/uL [facility] Lymphocytes Absolute Auto 1.5 1.2 - 4.9 X10*3/uL [facility] Monocytes Absolute Auto 0.4 0.1 - 1.2 X10*3/uL [facility] Eosinophils Absolute Auto 0.1 0.0 - 0.4 X10*3/uL [facility] Basophils Absolute Auto 0.1 0.0 - 0.2 X10*3/uL [facility] NRBC Abs Auto 0.000 0.0 - 0.012 X10*3/uL [facility] 03/13/2024 12:3 4 PM EST 03/13/2024 12:38 PM EST Generic External Data Provider LAB BLOOD ORDERAB LES Final Result Performing Organization Address [facility]/ZIP Co de Phone Number [facility] [address] [place] [address] [phone] * Urinalysis w/reflex microscopic (03/13/2024 12:34 PM EST) Color Urine Yellow [facility] Appearance Urine Clear [facility] PH 6.0 5.0 - 9.0 [facility] Glucose Urine UA Negative Negative mg/dL [facility] Urine Blood Negative Negative [facility] Specific [place] - Urine <=1.005 1.005 - 1.025 [facility] Urine Protein Negative Neg-Trace mg/dL [facility] Urine Ketones Negative Negative mg/dL [facility] Nitrite Urine Negative Negative [facility] Leukocyte Esterase Urine Negative Negative [facility] 03/13/2024 12:3 4 PM EST 03/13/2024 12:38 PM EST Narrative [facility] - 03/13/2024 12:42 PM EST [id number], Clean Catch us Generic External Data Provider LAB URINE ORDERAB LES Final Result Performing Organization Address [facility]/ZIP Co de Phone Number [facility] [address] [place] [phone] * Prothrombin Time-INR (03/13/2024 12:34 PM EST) Prothrombin Time 11.2 10.9 - 12.4 SEC [facility] INTERNATIONAL NORM RATIO 1.0 0.9 - 1.1 [facility] Comment:INTERNATIONAL NORMAL IZED RATIO (INR) REFERENCE RANGES Reference RangeFor patients not on anticoagulant therapy: 0.9 - 1.1INR ranges for oral anticoagulanttherapy:For prevention and treatment of venous thrombosis and pulmonary embolism: 2.0 - 3.0For acute myocardial infarction with aspirin therapy: 2.0 - 3.0For acute myocardial infarction without aspirin therapy: 3.0 - 4.0For patients with mechanical prosthetic heart valves: 2.5 - 3.5 03/13/2024 12:3 4 PM EST 03/13/2024 12:38 PM EST us Generic External Data Provider LAB BLOOD ORDERAB LES Final Result [facility] [address] [place] [address] [phone] * (ABNORMAL) Comprehensive Metabolic Panel (03/13/2024 12:34 PM EST) Sodium 142 135 - 145 mmol/L [facility] Potassium 4.7 3.3 - 5.1 mmol/L [facility] Chloride 111(H) 96 - 108 mmol/L [facility] Carbon Dioxide 27 22 - 29 mmol/L [facility] Anion Gap 9(L) 12 - 20 [facility] Urea Nitrogen (BUN) 21(H) 9 - 16 mg/dL [facility] Creatinine, Serum 0.77 0.5 - 1.4 mg/dL [facility] Creatinine Clr Calc Pharmacy 46.0 [facility] Comment:Provided height and weight: 142.24 cm,66.5 kg.eGFR (calculated from the MDRD study equation) and eCrCl(calculated from the Cockcroft-Gault equation) are based ondifferent parameters and may not yield comparable results.If eCrCl result is absurd, please check patient'sheight/weight. Estimated Glomerular Filt Rate >60 [facility] Comment:Chronic Kidney Disea se: Estimated GFR < 60 mL/min/1.09q5Ubdmew Kidney Disease: Estimated GFR < 15 mL/min/1.73m2 Glucose 110 60 - 115 mg/dL [facility] Calcium 9.4 8.4 - 10.2 mg/dL [facility] Bilirubin, Total 0.3 0.0 - 1.0 mg/dL [facility] Aspartate Amino Transferase 27 5 - 31 U/L [facility] Alanine Aminotransferase 26 0 - 31 U/L [facility] Total Protein 7.3 6.5 - 8.0 g/dL [facility] Albumin Level 4.0 3.5 - 5.0 g/dL [facility] Alkaline Phosphatase 54 39 - 117 U/L [facility] 03/13/2024 12:3 4 PM EST 03/13/2024 12:38 PM EST us Generic External Data Provider LAB BLOOD ORDERAB LES Final Result Performing Organization Address [facility] Co de Phone Number [facility] [address] [place] [phone] * POCT Rapid Influenza B VILLARREAL ID NOW (02/25/2024 2:30 PM EST) Influenza B Negative Negative, Indeterminate [facility] Swab 02/25/2024 2:30 PM EST us Sera Clark MD POINT OF CARE TEST ENTER/ED IT ORDERABLES Final Result Performing Organization Address [facility] de Phone Number [facility] [address] [place] [phone] * POCT Rapid Influenza A VILLARREAL ID NOW (02/25/2024 2:30 PM EST) Influenza A Negative Negative, Indeterminate [facility] Swab 02/25/2024 2:30 PM EST us Sera Clark MD POINT OF CARE TEST ENTER/ED IT ORDERABLES Final Result Performing Organization Address [facility] Co de Phone Number [facility] [address] [place] [phone] * (ABNORMAL) POCT Rapid Covid-19 VILLARREAL ID NOW (02/25/2024 1:52 PM EST) Swab 02/25/2024 1:52 PM EST Sera Clark MD POINT OF CARE TEST ENTER/ED IT ORDERABLES Final Result * High Sensitivity Troponin I (01/28/2024 6:42 PM EST) Only the most recent of3 resultswithin the time period is included. Pathologist [facility] TROPONIN I HIGH SENSITIVITY 10.3 <3.5 - 17.0 ng/L [facility] Comment:The Villarreal high sens itivity Troponin-I results should beused in conjunction with other diagnostic information suchas ECG, clinical observations and information, and patientsymptoms to aid in the diagnosis of MD. 01/28/2024 6:42 PM EST 01/28/2024 6:47 PM EST us Generic External Data Provider LAB BLOOD ORDERAB LES Final Result Performing Organization Address [facility]/ZIP Co de Phone Number [facility] [address] [place] [phone] * B Type Natriuretic Peptide (BNP) (01/28/2024 4:46 PM EST) Pathologist [facility] B Type Natriuretic Peptide 20 <100 pg/mL [facility] Comment:For those patients w ho are being treated with Natrecor(nesiritide, recombinant BNP), BNP testing should beperformed at least two hours post treatment in order toensure that only endogenous levels of BNP are detected. 01/28/2024 4:46 PM EST 01/28/2024 4:48 PM EST us Generic External Data Provider LAB BLOOD ORDERAB LES Final Result Performing Organization Address [facility]/ZIP Co de Phone Number [facility] [address] [place] [phone] * Hepatic Function Panel (01/28/2024 4:46 PM EST) Bilirubin, Total 0.3 0.0 - 1.0 mg/dL [facility] Bilirubin, Direct 0.1 0.0 - 0.5 mg/dL [facility] Aspartate Amino Transferase 29 5 - 31 U/L [facility] Alanine Aminotransferase 31 0 - 31 U/L [facility] Total Protein 7.2 6.5 - 8.0 g/dL [facility] Albumin Level 4.1 3.5 - 5.0 g/dL [facility] Alkaline Phosphatase 56 39 - 117 U/L [facility] 01/28/2024 4:46 PM EST 01/28/2024 4:48 PM EST us Generic External Data Provider LAB BLOOD ORDERAB LES Final Result [facility] [address] [place] [phone] * (ABNORMAL) Basic Metabolic Panel (01/28/2024 4:46 PM EST) Pathologist [facility] Sodium 139 135 - 145 mmol/L [facility] Potassium 4.3 3.3 - 5.1 mmol/L [facility] Chloride 107 96 - 108 mmol/L [facility] Carbon Dioxide 26 22 - 29 mmol/L [facility] Anion Gap 10(L) 12 - 20 [facility] Urea Nitrogen (BUN) 23(H) 9 - 16 mg/dL [facility] Creatinine, Serum 0.88 0.5 - 1.4 mg/dL [facility] Creatinine Clr Calc Pharmacy 44.0 [facility] Comment:Provided height and weight: 149.86 cm,67.7 kg.eGFR (calculated from the MDRD study equation) and eCrCl(calculated from the Cockcroft-Gault equation) are based ondifferent parameters and may not yield comparable results.If eCrCl result is absurd, please check patient'sheight/weight. Estimated Glomerular Filt Rate >60 [facility] Comment:Chronic Kidney Disea se: Estimated GFR < 60 mL/min/1.58u1Yhlfxs Kidney Disease: Estimated GFR < 15 mL/min/1.73m2 Glucose 150(H) 60 - 115 mg/dL [facility] Calcium 9.8 8.4 - 10.2 mg/dL [facility] 01/28/2024 4:46 PM EST 01/28/2024 4:48 PM EST us Generic External Data Provider LAB BLOOD ORDERAB LES Final Result [facility] [address] [place] [phone] * ECG 12 lead (01/26/2024 4:05 PM EST) Historical Provider MD ECG ORDERABLES Final Res ult * XR CHEST PA AND LATERAL (01/26/2024 3:41 PM EST) Anatomical Region Laterality Modality Radiographic Nelly ging Historical Provider IMG XR PROCEDURES Final R esult * (ABNORMAL) Lipid Panel, Standard (10/10/2023 2:01 PM EDT) Triglycerides 158(H) <150 mg/dL [facility] Comment:Desirable Triglyceri de: less than 150 mg/dLBorderline High Triglyceride 150-199 mg/dLHigh Triglyceride: 200-499 mg/dLVery High Triglyceride: greater than or equal to 5OO mg/dL Cholesterol 233(H) <200 mg/dL [facility] Comment:Desirable Cholestero l: less than 200 mg/dLBorderline High Cholesterol: 200-239 mg/dLHigh Cholesterol: greater than 239 mg/dL LDL Cholesterol Calculated 148(H) <100 mg/dL [facility] Comment:Desirable LDL: less than 100 mg/dLNear Optimal/Above Optimal LDL: 110- 129 mg/dLBorderline High LDL: 130-159 mg/dLHigh LDL: 160-189 mg/dLVery High LDL: greater than or equal to 190 mg/dL HDL Cholesterol 54 >40 mg/dL [facility] Comment:Desirable HDL: great er than 40 mg/dL Note: This HDL assay may give artificially low results in patients with liver disease. 10/10/2023 2:01 PM EDT 10/10/2023 2:01 PM EDT us Generic External Data Provider LAB BLOOD ORDERAB LES Final Result [facility] [address] [place] [phone] * (ABNORMAL) POCT HGB A1C (08/03/2023 10:59 AM EDT) Hemoglobin A1C 7.0(A) 4.0 - 6.0 % QC Media Lot # [id number] Lot# Expiration Date [id number] Blood 08/03/2023 10:5 9 AM EDT us Liset Mitchell MD POINT OF CARE TEST ENTER/EDIT ORDERABLES Final Result from Last 3 Months or Most Recently Relevant to Health Maintenance Insurance [id number] [address] [facility] Care Teams Basket Bottom Machine Operator Relationship Specialty Start Date End Date Liset Mitchell MD [address] [place] [phone] PCP - General Family Medicine 09/14/20
--- OUTSIDE RECORDS SUMMARY | 2024-03-31 07:55 | XMS_ITS | Encounter Summary ---
Author Organization [employer] Address [address] [facility] [address] [place] [address] Care Team Providers Care Handtools Repairer Name Role Phone Liset Mitchell MD Primary Care Provider [phone] Reason for Visit * Reason Comments Med Refill Encounter Details Date Type Department Care Team ([facility] st Contact Info) Description 04/13/2022 Refill [facility] [address] [place] [phone] Liset Mitchell MD [address] [place] [address] Social History Tobacco Use Types Packs/Day Years Used Date Smoking Tobacco: Never Passive Smoke Exposure: Never Smokeless Tobacco: Never Alcohol Use Standard Drinks/Week Comments Never 0 (1 standard drink = 0.6 oz pur e alcohol) Depression Answer Date Recorded Patient Health Questionnaire-9 Score 0 04/13/2022 Depression Answer Date Recorded Patient Health Questionnaire-2 Score 0 04/13/2022 Comments Unknown Sex and Gender Information Value Date Recorded Sex Assigned at Female 12/26/2021 10:14 AM EDT Legal Sex Female 10:14 AM EDT Gender Identity Female 12/26/2021 10:14 AM EDT Sexual Orientation Don't know 10/25/2022 11 :36 AM EDT Sexual Orientation Straight 10/25/2022 11 :36 AM EDT COVID-19 Exposure Response Date Recorded In the last 10 days, have yo u been in contact with someone who was confirmed or suspected to have Coronavirus/COVID-19? No / Unsure 04/13/2022 9:37 AM EST documented as of this encounter Plan of Treatment Not on file documented as of this encounter Visit Diagnoses Not on filedocumented in this encounter Additional Health Concerns Assessment Noted Time PHQ-9 Depression Total Score: 0 04/13/19 23 10:04 AM EST documented as of this encounter Care Teams Handtools Repairer Relationship Specialty Start Date End Date Liset Mitchell MD [address] [place] [phone] PCP - General Family Medicine 09/14/20 documented as of this encounter
--- OUTSIDE RECORDS SUMMARY | 2024-03-31 07:55 | XMS_ITS | Encounter Summary ---
Author Organization [email or web address] Address [address] [facility] [address] [place] [address] Care Team Providers Care Environmental Services Attendant Name Role Phone Liset Mitchell MD Primary Care Provider [phone] Reason for Visit * Reason Onset Date Comments Triage 07/07/2022 Encounter Details Date Type Department Care Team ([facility] st Contact Info) Description 07/07/2022 Telephone [facility] [address] [place], [place] [phone] Liset Mitchell MD [address] [place] [address] Triage Social History Tobacco Use Types Packs/Day Years [...] Telephone Encounter - Mary Rivas RN - 07/07/2022 12:32 PM EDT Call to [facility] Santos, reports having low blood pressure last night 105/50. No sx of dizziness reported. Had pt check BP currently is 125/71 on right side, 131/72 HR 81 on left side. Per pt has upcomign appt on 08/03/22 with natural sciences department chair. Pt confirmed that new discharge meds are Isosorbide Mononitrate (isosorbide mononitrate 30 mg oral tablet, extended release) 1 tab(s) 30 Milligram By Mouth Daily Lisinopril (lisinopril 5 mg oral tablet) 5 Milligram 1 tablet By Mouth Daily Metoprolol (metoprolol 25 mg oral tablet, extended release) 25 Milligram 1 tablet By Mouth Daily Nitroglycerin (nitroglycerin 0.4 mg sublingual tablet) 1 tab(s) 0.4 Milligram Sublingual Every 5 minutes as needed Chest Pain Ticagrelor (ticagrelor 90 mg oral tablet) 1 tab(s) 90 Milligram By Mouth 2 times a day Pt stopped amlodipine as ordered. Pt states concernned on too many meds for BP. Pt advised needs HDF to discuss these with provider. Given appt on 07/11/22 at 2:15p with Dr. Clark. Pt advised to make sure drinking plenty of water while taking meds as well s checking BP prior to taking meds in themorning to ensure not too low. If <120/80 to call office for insturctions. Pt agrees. Sent to care coordinators to obtain [facility] notes. Please note pt found under Natali Cortes not Natali Santos. Pt states tried to get them to change while admitted. Please update HDF log as well. Multiple (2) protocols were used on this call. Disposition for Call: See in Office or Video Visit Today or Tomorrow Protocol Used: Recent Medical Visit for Illness Follow-up Call (Adult) Protocol-Based Disposition: See in Office or Video Visit Today or Tomorrow Video visit offer not recorded Positive Triage Question: * Patient wants to be seen * All higher-acuity triage questions were negative Care Advice Discussed: * Reasons To Call Back - You become worse Protocol Used: Blood Pressure - Low (Adult) Protocol-Based Disposition: See in Office or Video Visit within 3 Days Positive Triage Question: * Wants doctor to measure BP * All higher-acuity triage questions were negative Care Advice Discussed: * Fall Prevention * Reasons To Call Back - Lightheadedness, weakness, or dizziness occurs - Systolic BP under 90 - You feel sick - You become worse * Telephone Encounter - Joceline Castle - 07/07/2022 12:18 PM EDT Tc from pt returning triage call. * Telephone Encounter - Mary Rivas RN - 07/07/2022 12:05 PM EDT Call to [facility] Santos, returned for triage. No answer LVM to return call to [facility] triage line. Protocol Used: No Contact or Duplicate Contact Call (Adult) Protocol-Based Disposition: No Contact Call Positive Triage Questions: * No answer. First attempt to contact caller. Follow-up call scheduled within 30 minutes. * Message left on identified voicemail * All higher-acuity triage questions were negative * Telephone Encounter - Marysol Ruiz - 07/07/2022 11:11 AM EDT Symptom: Low Blood Pressure - Caller Reports Outcome: Schedule a same-day appointment or talk to a nurse or provider today Reason: Caller denied all higher acuity questions The caller accepted this outcome Patient speaks samoan. documented in this encounter Plan of Treatment Not on file documented as of this encounter Visit Diagnoses Not on filedocumented in this encounter Additional Health Concerns Assessment Noted Time PHQ-9 Depression Total Score: 0 04/13/19 23 10:04 AM EST documented as of this encounter Care Teams Environmental Services Attendant Relationship Specialty Start Date End Date Liset Mitchell MD [address] [place] [phone] PCP - General Family Medicine 09/14/20 documented as of this encounter
--- OUTSIDE RECORDS SUMMARY | 2024-03-31 07:55 | XMS_ITS | Clinical Summary ---
Author Organization [facility] Address [address] [place] [address] Phone Care Team Providers Care Vibration Engineer Name Role Phone Liset Mitchell MD Primary Care Provider [phone] Allergies Active Allergy Reactions Criticality Noted Date Comments [facility] Dust Unknown Low 07/08/2018 Empagliflozin 07/27/2022 Other reaction(s): vaginal itch Ezetimibe Unknown 11/04/2021 Other reaction(s): side effects Fluticasone Unknown 07/27/2022 Other reaction(s): lip swelling Hydrocodone Nausea And Vomiting,Nausea Only 07/27/2022 Ibuprofen 07/27/2022 Other reaction(s): Stomach Upset Lisinopril Unknown 07/21/2022 Itchyness Metformin 07/27/2022 Other reaction(s): stomach pain Mold 02/07/2021 Mold Extracts 02/07/2021 Nsaids (Non-Steroidal Anti-Inflammatory Drug) GI intolerance 01/26/2024 Oxycodone Nausea And Vomiting 07/27/2022 Pollen Extracts Unknown Low 06/26/2022 Sitagliptin 07/27/2022 Other reaction(s): stomach pain Medications No known medications Active Problems No known active problems Encounters Date Type Department Care Team Description 01/26/2024 3:00 AM EST - 01/26/2024 7:56 AM EST Emergency [facility] Emergency [address] [place] [address] Emilia Marr MD Primary hypertension (Primary Dx); Sinus headache Discharge Disposition: Home or Self Care from Last 3 Months Medical History Medical History Date Comments Hypertension 07/24/2018 DX:Hypertension Asthma-COPD overlap syndrome (CMS/HCC) 9 DX:Asthma-COPD overlap syndrome (HCC) Hiatal hernia 05/24/2018 DX:Hiatal hernia Pulmonary nodule 05/24/2018 DX:Pulmonary no dule Hyperlipidemia 07/24/2018 DX:Hyperlipidemi a Anxiety and depression 07/24/2018 DX:Anxiet y and depression Constipation 07/24/2018 DX:Constipation Vitamin B 12 deficiency 07/24/2018 DX:Vitam in B 12 deficiency Allergic rhinitis 07/24/2018 DX:Allergic rh initis Congestive heart failure ([facility]/HCC) 07/24/2018 DX:Congestive heart failure ([facility]) Recurrent herpes labialis 07/24/2018 DX:Rec urrent herpes labialis 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 History of colon polyps 07/24/2018 DX:Histo ry of colon polyps ROXIE (obstructive sleep apnea) 07/24/2018 DX :ROXIE (obstructive sleep apnea) Type 2 diabetes mellitus wit hout complication ([facility]) 07/24/2018 DX:Type 2 diabetes mellitus without complication ([facility]) HTN (hypertension) DX:HTN (hyper tension) GERD (gastroesophageal reflux disease) DX:GERD (gastroesophageal reflux disease) Depression DX:Depression 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 ([facility]) DX:Insulin dependent type 2 diabetes mellitus ([facility]) Social History Tobacco Use Types Packs/Day Years Used Date Smoking Tobacco: Never Smokeless Tobacco: Never Alcohol Use Standard Drinks/Week Comments Yes 0 (1 standard drink = 0.6 oz pur e alcohol) Sex and Gender Information Value Date Recorded Sex Assigned at Not on file Gender Identity Not on file Sexual Orientation Not on file Job Start Date Occupation Industry Not on file Not on file Not on file Obstetrics History Last Filed Vital Signs Vital Sign Reading Time Taken Comments Blood Pressure 156/75 01/26/2024 7:34 AM EST Pulse 57 01/26/2024 7:34 AM EST Temperature 37.1 ??C (98.7 ??F) 01/26/2024 7:34 AM ES T Respiratory Rate 20 01/26/2024 7:34 AM EST Oxygen Saturation 96% 01/26/2024 7:34 AM EST Inhaled Oxygen Concentration - - Weight 69.9 kg (154 lb) 11/07/2022 12:50 PM EDT Height 142.2 cm (4' 8 ) 11/07/2022 12:50 PM EDT Body Mass Index 34.53 11/07/2022 12:50 PM EDT Plan of Treatment Health Maintenance Due Date Last Done Comments Diabetes: Annual Foot Exam 12/07/1955 Diabetes: Annual Retina Eye Exam 12/07/1955 Zoster Vaccines (2 of 3) 05/27/2014 04/01/2014 RSV Immunization Patients 60+ Years Old (1 - 1-dose 75+ series) 2020 Falls Risk Assessment 01/25/2022 Hepatitis C Screening 01/25/2022 Medicare Annual Wellness Visit 01/25/2022 Osteoporosis Screening (Bone Density Screening) 01/25/2022 Social Influencers of Health Screening 01/25/2022 Depression Screening 04/13/2023 04/13/2022 COVID-19 Vaccine ( season) 2023 02/02/2021, 07/15/2020, 06/24/2020 Influenza Vaccine (#1) 2023 9, 01/09/2018, 04/06/2017, Additional history exists Diabetes: Blood Sugar Control Test (HGBA1C) 02/02/2024 08/03/2023 Diabetes: Annual Urine Albumin-Creatinine Ratio (uACR) 12/23/2024 12/24/2023, 12/19/2022, 10/13/2021 Diabetes: Annual GFR (Glomerular Filtration Rate) 01/25/2025 01/26/2024, 11/02/2023, 10/13/2021 Hypertension/CHF/CAD Annual BMP Blood Test 01/25/2025 01/26/2024, 11/02/2023, 10/13/2021 Cholesterol Screening (Lipid Panel) 12/23/2028 12/24/2023, 10/10/2023 DTaP,Tdap,and Td Vaccines (4 - Td or Tdap) 03/27/2033 03/27/2023, 05/21/2012, 11/04/1997 Pneumococcal Vaccine: 65+ Years Completed 01/04/2024, 03/18/2015, 03/25/2011, Additional history exists HIB Vaccines Aged Out [...] on patient's age to complete this topic MMR Vaccines Aged Out No longer eligi ble based on patient's age to complete this topic Meningococcal ACWY Vaccine Aged Out N o longer eligible based on patient's age to complete this topic RSV Immunization Patients Under 20 months Aged Out No longer eligible based on patient's age to complete this topic Varicella Vaccines Aged Out No longer eligible based on patient's age to complete this topic Procedures Procedure Name Priority Date/Time Associated Diagnosis Comments TROPONIN I HIGH SENSITIVITY STAT 01/26/2024 6:13 AM EST XR CHEST 2 VIEWS STAT 01/26/2024 5:06 AM EST CBC WITH AUTO DIFFERENTIAL STAT 01/26/2024 4:23 AM EST B-TYPE NATRIURETIC PEPTIDE STAT 01/26/2024 4:23 AM EST MAGNESIUM STAT 01/26/2024 4:23 AM EST LIPASE STAT 01/26/2024 4:23 AM EST COMPREHENSIVE METABOLIC PANEL STAT 01/26/2024 4:23 AM EST CBC AND DIFFERENTIAL STAT 01/26/2024 4:23 AM EST TROPONIN I HIGH SENSITIVITY STAT 01/26/2024 4:23 AM EST ECG 12-LEAD STAT 01/26/2024 3:46 AM EST GIL URINE CULTURE TUBE STAT 01/26/2024 3:16 AM EST URINALYSIS WITH REFLEX MICROSCOPIC AND CULTURE STAT 01/26/2024 3:16 AM EST URINALYSIS WITH REFLEX MICROSCOPIC AND CULTURE STAT 01/26/2024 3:16 AM EST ECG ANNOTATED 01/26/2024 from Last 3 Months Results * Troponin I high sensitivity (01/26/2024 6:13 AM EST) Only the most recent of2 resultswithin the time period is included. High Sensitivity Troponin I 21 <=54 ng/L LAB CHEMISTRY METHOD 01/26/2024 6:51 AM EST [facility] Blood Venous blood specimen / Unknown Venipuncture / Unknown 01/26/2024 6:13 AM EST 01/26/2024 6:22 AM EST Narrative [facility] - 01/26/2024 6:51 AM EST High levels of biotin in samples may falsely decrease hsTroponin values. ??Use caution when interpreting hsTroponin results in patients taking biotin who exhibit renal impairment (eGFR <60) or in patients taking more than 20 mg/day of biotin. Emilia Marr MD LAB BLOOD ORDERA BLES [facility] [address] [place] [address], * XR Chest 2 Views (01/26/2024 5:06 AM EST) Anatomical Region Laterality Modality Body Radiographic Nelly ging 01/26/2024 8:24 AM EST Impressions 01/26/2024 8:25 AM EST No acute findings. -------- FINAL REPORT -------- Dictated By: Santosh Camargo Dictated Date: 01/26/2024 08:24 ET Assigned Physician: Santosh Camargo Reviewed and Electronically Signed By: Santosh Camargo Signed Date: 01/26/2024 08:25 ET Workstation ID: [id number] Transcribed By: Self Edit Transcribed Date: 01/26/2024 08:24 ET Narrative 01/26/2024 8:25 AM EST PA and lateral views of the chest dated 01/26/2024. HISTORY: chest pain. COMPARISON: 06/26/2022. FINDINGS: Atherosclerotic calcifications of the aorta. ??Upper normal heart size. ??Lungs and pleural spaces are clear. ??No pulmonary edema. ??Degenerative changes of the spine and shoulders. Procedure Note Santohs Camargo MD - 01/26/2024 PA and lateral views of the chest dated 01/26/2024. HISTORY: chest pain. COMPARISON: 06/26/2022. FINDINGS: Atherosclerotic calcifications of the aorta. Upper normal heart size.Lungs and pleural spaces are clear. No pulmonary edema. Degenerativechanges of the spine and shoulders. IMPRESSION: No acute findings. -------- FINAL REPORT -------- Dictated By: Santosh Camargo Dictated Date: 01/26/2024 08:24 ET Assigned Physician: Santosh Camargo Reviewed and Electronically Signed By: Santosh Camargo Signed Date: 01/26/2024 08:25 ET Workstation ID: [id number] Transcribed By: Self Edit Transcribed Date: 01/26/2024 08:24 ET Emilia Marr MD IMG XR PROCEDURE S * CBC auto differential (01/26/2024 4:23 AM EST) WBC 7.2 4.8 - 10.8 K/mcL LAB HEMETOLOGY METHOD 01/26/2024 4:49 AM EST [facility] RBC 4.50 3.80 - 4.80 M/mcL LAB HEMETOLOGY METHOD 01/26/2024 4:49 AM [facility] Hemoglobin 13.6 11.5 - 16.0 g/dL LAB HEMETOLOGY METHOD 01/26/2024 4:49 AM [facility] Hematocrit 41.4 35.0 - 47.0 % LAB HEMETOLOGY METHOD 01/26/2024 4:49 AM [facility] MCV 93.0 79.0 - 98.0 FL LAB HEMETOLOGY METHOD 01/26/2024 4:49 AM [facility] MCH 30.6 27.0 - 32.0 pcg LAB HEMETOLOGY METHOD 01/26/2024 4:49 AM [facility] MCHC 32.9 32.0 - 37.0 g/dL LAB HEMETOLOGY METHOD 01/26/2024 4:49 AM [facility] RDW 12.7 11.0 - 15.0 % LAB HEMETOLOGY METHOD 01/26/2024 4:49 AM [facility] Platelets 191 130 - 400 K/mcL LAB HEMETOLOGY METHOD 01/26/2024 4:49 AM [facility] MPV 10.8 7.0 - 11.0 FL LAB HEMETOLOGY METHOD 01/26/2024 4:49 AM [facility] NRBC 0.0 <1.0 % LAB HEMETOLOGY METHOD 01/26/2024 4:49 AM [facility] NRBC Absolute 0.00 <0.10 K/mcL LAB HEMETOLOGY METHOD 01/26/2024 4:49 AM [facility] Neutrophils Relative 60.8 % LAB HEMETOLOGY METHOD 01/26/2024 4:49 AM [facility] Lymphocytes Relative 29.1 % LAB HEMETOLOGY METHOD 01/26/2024 4:49 AM [facility] Monocytes Relative 6.9 % LAB HEMETOLOGY METHOD 01/26/2024 4:49 AM [facility] Eosinophils Relative 2.2 % LAB HEMETOLOGY METHOD 01/26/2024 4:49 AM [facility] Basophils Relative 0.7 % LAB HEMETOLOGY METHOD 01/26/2024 4:49 AM EST [facility] Immature Granulocytes Relative 0.3 % LAB HEMETOLOGY METHOD 01/26/2024 4:49 AM EST [facility] Neutrophils Absolute 4.38 1.50 - 7.00 K/mcL LAB HEMETOLOGY METHOD 01/26/2024 4:49 AM EST [facility] Lymphocytes Absolute 2.10 1.00 - 5.00 K/mcL LAB HEMETOLOGY METHOD 01/26/2024 4:49 AM EST [facility] Monocytes Absolute 0.50 0.20 - 1.00 K/mcL LAB HEMETOLOGY METHOD 01/26/2024 4:49 AM EST [facility] Eosinophils Absolute 0.16 0.00 - 0.50 K/mcL LAB HEMETOLOGY METHOD 01/26/2024 4:49 AM EST [facility] Basophils Absolute 0.05 0.00 - 0.20 K/mcL LAB HEMETOLOGY METHOD 01/26/2024 4:49 AM [facility] Immature Granulocytes Absolute 0.02 0.00 - 0.03 K/mcL LAB HEMETOLOGY METHOD 01/26/2024 4:49 AM [facility] Blood Venous blood specimen / Unknown Venipuncture / Unknown 01/26/2024 4:23 AM EST 01/26/2024 4:44 AM EST Emilia Marr MD LAB BLOOD ORDERA BLES [facility] [address] [place] [address], * B-type natriuretic peptide (01/26/2024 4:23 AM EST) BNP 38 <=100 pcg/mL LAB CHEMISTRY METHOD 01/26/2024 7:49 AM EST [facility] Blood Venous blood specimen / Unknown Venipuncture / Unknown 01/26/2024 4:23 AM EST 01/26/2024 4:44 AM EST Emilia Marr MD LAB BLOOD ORDERA BLES Performing Organization Address [facility]/ZIP Co de Phone Number [facility] [address] [place] [address], [place] [phone] * Magnesium (01/26/2024 4:23 AM EST) Pathologist [facility] Magnesium 1.9 1.9 - 2.6 mg/dL LAB CHEMISTRY METHOD 01/26/2024 5:18 AM EST [facility] Blood Venous blood specimen / Unknown Venipuncture / Unknown 01/26/2024 4:23 AM EST 01/26/2024 4:44 AM EST Emilia Marr MD LAB BLOOD ORDERA BLES Performing Organization Address [facility] Co de Phone Number [facility] [address] [place] [address], [place] [phone] * (ABNORMAL) Lipase (01/26/2024 4:23 AM EST) [facility] Lipase 12(L) 13 - 75 unit/L LAB CHEMISTRY METHOD 01/26/2024 5:18 AM EST [facility] Blood Venous blood specimen / Unknown Venipuncture / Unknown 01/26/2024 4:23 AM EST 01/26/2024 4:44 AM EST Emilia Marr MD LAB BLOOD ORDERA BLES Performing Organization Address [facility]/ZIP Co de Phone Number [facility] [address] [place] [address], [place] [phone] * (ABNORMAL) Comprehensive metabolic panel (01/26/2024 4:23 AM EST) [facility] Sodium 141 133 - 145 mmol/L LAB CHEMISTRY METHOD 01/26/2024 5:18 AM [facility] Potassium 4.1 3.5 - 5.5 mmol/L LAB CHEMISTRY METHOD 01/26/2024 5:18 AM [facility] Chloride 108 96 - 110 mmol/L LAB CHEMISTRY METHOD 01/26/2024 5:18 AM [facility] CO2 28 21 - 32 mmol/L LAB CHEMISTRY METHOD 01/26/2024 5:18 AM [facility] Anion Gap 5 3 - 11 LAB CHEMISTRY METHOD 01/26/2024 5:18 AM [facility] Glucose 154(H) 70 - 100 mg/dL LAB CHEMISTRY METHOD 01/26/2024 5:18 AM [facility] BUN 25 5 - 25 mg/dL LAB CHEMISTRY METHOD 01/26/2024 5:18 AM [facility] Creatinine 0.87 0.50 - 1.10 mg/dL LAB CHEMISTRY METHOD 01/26/2024 5:18 AM [facility] eGFR 68 >=60 mL/min/1. 73m2 LAB CHEMISTRY METHOD 01/26/2024 5:18 AM [facility] Comment:Calculation based on the??Chronic Kidney Disease Epidemiology Collaboration (CKD-EPI) equation refit??without adjustment for race. BUN/Creatinine Ratio 28.7 LAB CHEMISTRY METHOD 01/26/2024 5:18 AM [facility] Calcium 9.7 8.5 - 10.5 mg/dL LAB CHEMISTRY METHOD 01/26/2024 5:18 AM [facility] AST (SGOT) 20 10 - 42 unit/L LAB CHEMISTRY METHOD 01/26/2024 5:18 AM [facility] ALT (SGPT) 33 10 - 60 unit/L LAB CHEMISTRY METHOD 01/26/2024 5:18 AM [facility] Alkaline Phosphatase 58 42 - 121 unit/L LAB CHEMISTRY METHOD 01/26/2024 5:18 AM EST [facility] Total Protein 7.1 6.0 - 8.0 g/dL LAB CHEMISTRY METHOD 01/26/2024 5:18 AM EST [facility] Albumin 3.9 3.2 - 5.0 g/dL LAB CHEMISTRY METHOD 01/26/2024 5:18 AM EST [facility] Total Bilirubin 0.5 0.0 - 1.4 mg/dL LAB CHEMISTRY METHOD 01/26/2024 5:18 AM EST [facility] Blood Venous blood specimen / Unknown Venipuncture / Unknown 01/26/2024 4:23 AM EST 01/26/2024 4:44 AM EST Emilia Marr MD LAB BLOOD ORDERA BLES [facility] [address] [place] [address], * ECG 12 lead (01/26/2024 3:46 AM EST) Ventricular Rate ECG 56 BPM GEMUSE Atrial Rate 56 BPM GEMUSE P-R Interval 164 ms GEMUSE QRS Duration 100 ms GEMUSE Q-T Interval 442 ms GEMUSE QTc 426 ms GEMUSE R [place] -26 degrees GEMUSE T [place] -23 degrees GEMUSE ECG Interpretation Sinus bradycardia 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) When compared with ECG of 26-JUN-2022 13:46, No significant change was found Confirmed by GIANNI MILLS ([id number]) on 01/26/2024 9:19:00 PM GEMUSE 01/26/2024 3:46 AM EST 01/26/2024 9:19 PM EST Emilia Marr MD ECG ORDERABLES GEMUSE * Urinalysis with reflex microscopic and culture (01/26/2024 3:16 AM EST) [facility] Specific [place] Urine 1.017 1.003 - 1.030 LAB URINALYSIS - AUTOMATED METHOD 01/26/2024 4:14 AM [facility] pH, Urine 7.0 5.0 - 8.0 pH LAB URINALYSIS - AUTOMATED METHOD 01/26/2024 4:14 AM [facility] Leukocytes, Urine Negative Negative LAB URINALYSIS - AUTOMATED METHOD 01/26/2024 4:14 AM [facility] Nitrite, Urine Negative Negative LAB URINALYSIS - AUTOMATED METHOD 01/26/2024 4:14 AM [facility] Protein, Urine Negative <=Trace mg/dL LAB URINALYSIS - AUTOMATED METHOD 01/26/2024 4:14 AM [facility] Glucose, Urine Negative Negative mg/dL LAB URINALYSIS - AUTOMATED METHOD 01/26/2024 4:14 AM [facility] Ketones, Urine Negative Negative mg/dL LAB URINALYSIS - AUTOMATED METHOD 01/26/2024 4:14 AM [facility] Urobilinogen, Urine 0.2 0.2 - 1.0 mg/dL LAB URINALYSIS - AUTOMATED METHOD 01/26/2024 4:14 AM [facility] Bilirubin, Urine Negative Negative LAB URINALYSIS - AUTOMATED METHOD 01/26/2024 4:14 AM [facility] Blood, Urine Negative Negative LAB URINALYSIS - AUTOMATED METHOD 01/26/2024 4:14 AM [facility] Urine Urine specimen obtained by clean catch procedure / Unknown Non-blood Collection / Unknown 01/26/2024 3:16 AM EST 01/26/2024 3:23 AM EST Emilia Marr MD LAB URINE ORDERA BLES [facility] [address] [place] [address], * Gil urine culture tube (01/26/2024 3:16 AM EST) Extra Tube Hold for add-ons. 01/26/2024 5:01 AM EST [facility] Comment:Auto resulted. Urine Urine specimen obtained by clean catch procedure / Unknown Non-blood Collection / Unknown 01/26/2024 3:16 AM EST 01/26/2024 3:23 AM EST Emilia Marr MD LAB URINE [facility] BLES [facility] [address] [place] [address], * ECG-Annotated (01/26/2024) Provider Onbase ECG ORDERABLES from Last 3 Months Care Teams Vibration Engineer Relationship Specialty Start Date End Date Liset Mitchell MD [address] [place] [address] PCP - General 08/09/21
--- OUTSIDE RECORDS SUMMARY | 2024-03-31 07:55 | XMS_ITS | Continuity of Care Document ---
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 Ai Cortes is a 78 yo F with h/o HTN, HLD, DM2, Diastolic dysfunction and other co-morbidities who called today for N/V. No sick contacts. No abdominal pain at this time. N/V. NBNB. Constipated. No fevers. Vitals stable with medic. Mostly complaining of n/v. Plan for 4mg IV zofran, and then 500cc IVF. No history of CHF. COVID/Flu tests are negative with medic. Will offer zofran rx as well. After some chart review, was able to find recods suggesting diastolic dysfunction. Originally ordered 1000cc IVF, but clarified only 500cc to be given. Tolerated fluids well. Return precautions and ER precautions advised. Rx for zofran prescribed. I provided real -time medical direction via phone for this encounter, and was available for additional phone based assistance as needed. I have reviewed and agree with the Assessment and Plan as documented by the [employer]. We discussed the diagnostic uncertainty of home visits and the risk associated with this. In this case the patient and I felt this to be an acceptable and reasonable amount of risk given the benefit of avoiding an ED visit. The patient given the opportunity to ask questions. Follow up with primary care was recommended, as needed. Advised if develops CP/severe SOB/turning blue/uncontrolle d n/v/d or black/bloody emesis or stool/ AMS/ syncope/ high fever unresponsive to APAP to call 911- verbalized understanding of instruction. [email or web address] Not available 03/26/2024 21:24:50 Plan of Treatment Reminders Order Date Submit Date Provider Last Modified By Organization Details Last Modified Time Details Appointments None recorded. Lab BMP, serum or plasma [address], [address] [place] [address], [phone], 21:24:08 rapid SARS CoV 2 Ag, QL IA, respiratory specimen [address], [address] [place] [address], [phone], 21:24:08 rapid flu (A+B) [address], [address] [place] [address], [id number], 5 21:24:08 Referral None recorded. Procedures None recorded. Surgeries None recorded. Imaging None recorded. Medication Orders ondansetron HCl (PF) 4 mg/2 mL injection solution [address]/Pharmacy #[id number], [address] [place], [address], 21:24:08 sodium chloride 0.9 % intravenous solution [address]/Pharmacy #[id number], [address] [place], [address], 21:24:08 ondansetron 4 mg disintegrat ing tablet 2024 025 [place] [facility]/Pharmacy #[id number], [address] [place], [address], 5 21:24:10 Patient TargetsNo targets recorded. Patient InstructionsNo instructions recorded. Reason for Referral None Reported. Results Created Date Observation Date Name Description Value Unit Range Abnormal Flag Note LastModifiedBy Organization Detail LastModifiedTime 03/26/19 25 03/26/2024 rapid SARS CoV 2 Ag, QL IA, respi rator y speci men rapid SARS CoV 2 Ag, QL IA, respiratory specimen negati ve Not Available [facility] ed [address] [place] [address], [phone], 03/26/2024 20:33:01 03/26/19 25 03/26/2024 rapid flu (A+B) Flu negati ve Not Available [facility] ed [address] [place] [address], [phone], 03/26/2024 20:33:02 Result Notes None recorded. Medical Equipment None Reported. Allergies Allergen ID Allergen Name Allergen Category Reaction Reaction Severity Criticality Documentation Date Start Date Code Code System Note Provider Name and Address Organization Details Recorded Time 11270 metoprolo l Not available Not available Not available Not available 01/30/2024 6918 RxNorm Not Available [facility] - production 17:06:26 6413 ezetimibe medicatio n Not available Not available Not available 11/29/2023 51092 8 RxNorm Not Available [facility] - production 13:58:51 6414 fluticaso ne Not available Not available Not available Not available 11/29/2023 87609 RxNorm Not Available [facility] - production 13:58:51 6415 hydrocodo ne Not available Not available Not available Not available 11/29/2023 5489 RxNorm Not Available [facility] - production 17:06:26 6416 umeclidin ium medicatio n chest pain Not available Not available 11/29/2023 29654 14 RxNorm Giorgio Pathak MD [address] [place] [address],[address], [place], [phone], [facility] - [facility], [employer] 16:24:27 6417 lisinopri l medicatio n Not available Not available Not available 11/29/2023 37299 RxNorm Not Available [facility] - production 13:58:51 Medications Name Sig Start Date Stop Date Status Note LastModified by Organization Details LastModified Time cyclobenzapr ine 10 mg tablet 10 MG ORALLY EVERY 8 HOURS active Not Available Not Available No t Available budesonide 32 mcg/actuatio n nasal spray USE 1-2 SPRAYS PER NOSTRIL TWICE A DAY active Not Available Not Available Not Available latanoprost 0.005 % eye drops PONGA CINDY GOTA EN LOS DOS OJOS AL ACOSTARSE active Not Available Not Available No t Available atorvastatin 40 mg tablet TAKE 1 TABLET BY MOUTH EVERY DAY active Not Available Not Available No t Available hydralazine 10 mg tablet TAKE 1 TABLET BY MOUTH TWICE A DAY WITH FOOD active Not Available Not Available No t Available atorvastatin 80 mg tablet TAKE 1 TABLET BY MOUTH EVERY MORNING active Not Available Not Available No t Available azelastine 0.05 % eye drops INSTILL 1 DROP PER EYE UP TO TWICE A DAY NEEDED FOR ITCH/REDNES S active Not Available Not Available No t Available nystatin 100,000 unit/mL oral suspension TAKE 5ML 4 TIMES A DAY RINSE MOUTH AND SPIT OUT active Not Available Not Available No t Available carvedilol 6.25 mg tablet TOME CINDY TABLETA DOS VECES AL D A CON ALIMENTO active Not Available Not Available No t Available doxycycline hyclate 100 mg capsule PLEASE SEE ATTACHED FOR DETAILED DIRECTIONS active Not Available Not Available N ot Available cefuroxime axetil 250 mg tablet TAKE 1 TABLET BY MOUTH TWICE A DAY 7 DAYS active Not Available Not Available No t Available ipratropium 0.5 mg-albuterol 3 mg (2.5 mg base)/3 mL nebulization soln 3 ML INHALED EVERY 6 HOURS NEEDED FOR FOR WHEEZING active Not Available Not Available No t Available clonidine 0.1 mg/24 hr weekly transdermal patch APPLY 1 PATCH EVERY WEEK DIRECTED active Not Available Not Available No t Available cetirizine 10 mg tablet TAKE 1 TABLET DAILY IN THE MORNING active Not Available Not Available Not Available clonidine 0.2 mg/24 hr weekly transdermal patch APPLY 1 PATCH EVERY WEEK DIRECTED active Not Available Not Available No t Available Lidocaine Viscous 2 % mucosal solution active Not Available Not Available Not Available ketotifen 0.025 % (0.035 %) eye drops ADMINISTER 1 DROP INTO BOTH EYES 2 TIMES DAILY. active Not Available Not Available No t Available senna 8.6 mg tablet TOME CINDY TABLETA DOS VECES AL D A active Not Available Not Available No t Available sucralfate 100 mg/mL oral suspension TAKE 10 ML (1 G) BY MOUTH WITH BREAKFAST, WITH LUNCH, AND WITH EVENING MEAL. ICD 10 CODE: K21. 9 active Not Available Not Available No t Available FreeStyle Lancets 28 gauge USE 1 EACH 4 TIMES A DAY BEFORE MEALS AND AT NIGHTLY active Not Available Not Available N ot Available ondansetron HCl 4 mg tablet TAKE 1 TABLET BY MOUTH EVERY 8 HOURS NEEDED FOR NAUSEA OR FOR VOMITING FOR UP TO 7 DAYS active Not Available Not Available No t Available prednisone 20 mg tablet TAKE 1 TABLET BY MOUTH EVERY DAY FOR 4 DAYS active Not Available Not Available No t Available hydroxyzine pamoate 50 mg capsule TAKE 1 CAPSULE BY MOUTH 1 TIME FOR 1 DOSE active Not Available Not Available No t Available pioglitazone 45 mg tablet TAKE 1 TABLET BY MOUTH EVERY DAY active Not Available Not Available No t Available amlodipine 2.5 mg tablet TAKE 1 TABLET (2.5 MG) BY MOUTH ONCE PER DAY. active Not Available Not Available No t Available clopidogrel 75 mg tablet TAKE 1 TABLET BY MOUTH EVERY DAY active Not Available Not Available No t Available chlorthalido ne 25 mg tablet TAKE 1 TABLET BY MOUTH EVERY DAY active Not Available Not Available No t Available fexofenadine 180 mg tablet TAKE 1 TABLET BY MOUTH EVERY DAY NEEDED FOR ALLERGY active Not Available Not Available No t Available ciprofloxaci n 500 mg tablet TAKE 1 TABLET BY MOUTH EVERY 12 HOURS active Not Available Not Available No t Available sulfamethoxa zole 800 mg-trimethop rim 160 mg tablet TAKE 1 TABLET BY MOUTH EVERY 12 HOURS active Not Available Not Available No t Available omeprazole 40 mg capsule,dede yed release TAKE 1 TABLET BY MOUTH EVERY DAY active Not Available Not Available No t Available doxycycline monohydrate 100 mg tablet TAKE 1 TABLET BY MOUTH TWICE A DAY FOR 14 DAYS active Not Available Not Available No t Available tramadol 50 mg tablet TAKE 1 TABLET BY MOUTH EVERY 6 HOURS NEEDED FOR PAIN active Not Available Not Available No t Available acetaminophe n 500 mg tablet TAKE 500 MG ORALLY EVERY 6 HOURS NEEDED FOR FEVER OR PAIN active Not Available Not Available No t Available spironolacto ne 25 mg tablet TAKE 1 TABLET BY MOUTH EVERY DAY IN THE MORNING active Not Available Not Available No t Available carvedilol 3.125 mg tablet TAKE 1 TABLET (3.125 MG) BY MOUTH WITH BREAKFAST AND WITH EVENING MEAL. active Not Available Not Available No t Available pantoprazole 20 mg tablet,delay ed release TAKE 1 TABLET BY MOUTH EVERY DAY active Not Available Not Available No t Available ketorolac 0.5 % eye drops INSTILL 1 DROP INTO OPERATIVE EYE TWICE A DAY . START 2 DAYS PRIOR TO SURGERY. active Not Available Not Available No t Available bisoprolol fumarate 5 mg tablet TAKE 1/2 TBALET BY MOUTH EVERY DAY active Not Available Not Available No t Available oxycodone-ac etaminophen 5 mg-325 mg tablet TAKE 1 TABLET BY MOUTH EVERY 6 HOURS NEEDED FOR PAIN active Not Available Not Available No t Available alprazolam 0.5 mg tablet TAKE 1 TABLET BY MOUTH TWICE A DAY active Not Available Not Available No t Available ofloxacin 0.3 % ear drops INSTILL 10 DROPS INTO THE LEFT EAR ONCE A DAY FOR 7 DAYS PER SCRIPT active Not Available Not Available No t Available famotidine 20 mg tablet TAKE 1 TABLET BY MOUTH TWICE A DAY active Not Available Not Available No t Available lorazepam 0.5 mg tablet TAKE 1 TABLET BY MOUTH EVERY 8 (EIGHT) HOURS IF NEEDED FOR ANXIETY. active Not Available Not Available No t Available metocloprami de 5 mg tablet TAKE 1 TABLET BY ORAL ROUTE 4 TIMES EVERY DAY 30 MINUTES BEFORE MEALS AND AT BEDTIME active Not Available Not Available N ot Available pravastatin 10 mg tablet TAKE 1 TABLET BY MOUTH EVERY DAY active Not Available Not Available No t Available baclofen 10 mg tablet TAKE 1 TABLET BY MOUTH THREE TIMES A DAY NEEDED active Not Available Not Available No t Available amlodipine 10 mg tablet TAKE 1 TABLET BY MOUTH EVERY DAY active Not Available Not Available No t Available lidocaine 5 % topical patch APPLY 1 PATCH EVERY DAY MAY WEAR UP TO 12 HOURS active Not Available Not Available No t Available losartan 25 mg tablet TOME CINDY TABLETA POR V A ORAL TODOS LOS D active Not Available Not Available No t Available Gas Relief Extra Strength 125 mg capsule PLEASE SEE ATTACHED FOR DETAILED DIRECTIONS active Not Available Not Available N ot Available docusate sodium 100 mg capsule TAKE 1 CAPSULE BY MOUTH TWICE A DAY FOR 10 DAYS active Not Available Not Available No t Available sertraline 25 mg tablet TAKE 1 TABLET BY MOUTH EVERY DAY active Not Available Not Available No t Available omeprazole 20 mg capsule,dede yed release TAKE 1 CAPSULE (20 MG) BY MOUTH BEFORE BREAKFAST DO NOT CRUSH OR CHEW active Not Available Not Available No t Available budesonide 0.5 mg/2 mL suspension for nebulization INHALE 1 VIAL VIA NEBULIZER TWICE A DAY FOR 30 DAYS active Not Available Not Available Not Available montelukast 10 mg tablet TOME CINDY TABLETA TODOS LOS D AL ACOSTARSE active Not Available Not Available No t Available codeine 10 mg-gua[place] in 100 mg/5 mL oral liquid TAKE 5 ML BY MOUTH EVERY 6 HOURS IF NEEDED FOR COUGH FOR UP TO 5 DAYS (NOT COVERED) active Not Available Not Available No t Available pravastatin 20 mg tablet TAKE 1 TABLET BY MOUTH EVERY DAY active Not Available Not Available No t Available hydrochlorot hiazide 25 mg tablet TAKE 1 TABLET BY MOUTH EVERY DAY active Not Available Not Available No t Available mupirocin 2 % topical ointment APPLY A SMALL AMOUNT TO THE BILATERAL NARES BY TOPICAL ROUTE 2 TIMES PER DAY active Not Available Not Available No t Available mirtazapine 15 mg tablet 15 MG POR V A ORAL BEDTIME active Not Available Not Available No t Available metoprolol succinate ER 25 mg tablet,exten ded release 24 hr TAKE 1 TABLET BY MOUTH IN THE MORNING . DO NOT CRUSH OR CHEW active Not Available Not Available No t Available azelastine 137 mcg (0.1 %) nasal spray ADMINISTER 2 SPRAYS INTRANASALL Y TWICE A DAY FOR 30 DAYS active Not Available Not Available No t Available estradiol 0.01% (0.1 mg/gram) vaginal cream USE 1 GRAM VAGINALLY AT BEDTIME, USE EVERY NIGHT FOR 2 WEEKS THEN TWICE WEEKLY active Not Available Not Available No t Available methylpredni solone 4 mg tablets in a dose pack TAKE 6 TABLETS ON DAY 1 DIRECTED ON PACKAGE AND DECREASE BY 1 TAB EACH DAY FOR A TOTAL OF 6 DAYS active Not Available Not Available No t Available albuterol sulfate HFA 90 mcg/actuatio n aerosol inhaler INHALE 2 PUFFS BY MOUTH EVERY 4 HOURS NEEDED FOR FOR WHEEZING FOR 30 DAYS active Not Available Not Available Not Available timolol maleate 0.5 % eye drops APLIQUE CINDY GOTA EN EN LOS DOS OJOS DOS VECES AL D A active Not Available Not Available No t Available ipratropium bromide 42 mcg (0.06 %) nasal spray 1-2 SPRAYS PER NOSTRIL NEEDED FOR RUNNY NOSE, UP TO 3X/DAY FOR RUNNY NOSE active Not Available Not Available N ot Available hydrocortiso ne 2.5 % topical ointment APPLY TOPICALLY TO AFFECTED AREAS ON FACE TWICE DAILY X1 WEEK, BREAK X1 WEEK THEN REPEAT NEEDED active Not Available Not Available No t Available ondansetron 4 mg disintegrati ng tablet Place 1 tablet every 8 hours by translingua l route as needed for 5 days, for nausea and vomiting symptoms. 2024 active Not Available Not Available Not Avai lable cefdinir 300 mg capsule TAKE 1 TWICE DAILY FOR 10 DAYS active Not Available Not Available Not Available fluticasone propionate 50 mcg/actuatio n nasal spray,suspen gordon SPRAY 1 SPRAY INTO EACH NOSTRIL EVERY DAY active Not Available Not Available No t Available clotrimazole 1 % topical cream APPLY TO AFFECTED AREA TWICE A DAY IN THE MORNING AND IN THE EVENING active Not Available Not Available No t Available sertraline 50 mg tablet TAKE 1 TABLET BY MOUTH EVERY DAY active Not Available Not Available No t Available ipratropium bromide 21 mcg (0.03 %) nasal spray ADMINISTER 1-2 SPRAYS DAILY NEEDED active Not Available Not Available No t Available loratadine 10 mg tablet TAKE 1 TABLET EVERY DAY NEEDED active Not Available Not Available No t Available amoxicillin 875 mg-potassium clavulanate 125 mg tablet TAKE 1 TABLET BY MOUTH TWICE A DAY FOR 5 DAYS active Not Available Not Available No t Available hydroxyzine pamoate 25 mg capsule TAKE 1 CAPSULE BY MOUTH THREE TIMES A DAY active Not Available Not Available Not Available neomycin-shu ymyxin-hydro ronnie 3.5 mg-10,000 unit/mL-1 % ear drops,susp INSTILL 4 DROPS INTO LEFT EAR 3 TIMES EVERY DAY FOR 7 DAYS active Not Available Not Available No t Available azithromycin 500 mg tablet TAKE 1 TABLET BY MOUTH EVERY DAY FOR 3 DAYS active Not Available Not Available No t Available rosuvastatin 20 mg tablet TOME CINDY TABLETA TODOS LOS D active Not Available Not Available No t Available rosuvastatin 40 mg tablet TAKE 1 TABLET BY MOUTH EVERY DAY IN THE MORNING active Not Available Not Available No t Available nitrofuranto in monohydrate/ macrocrystal s 100 mg capsule TAKE 1 CAPSULE BY MOUTH EVERY 12 HOURS WITH FOOD active Not Available Not Available No t Available Gas Relief Extra Strength 125 mg chewable tablet TAKE 1 TABLET BY MOUTH NEEDED AFTER MEALS AND AT BEDTIME FOR GAS active Not Available Not Available No t Available BD Ultra-Fine Mini Pen Needle 31 gauge x 05/11 USE DIRECTED active Not Available Not Available No t Available Flovent HFA 110 mcg/actuatio n aerosol inhaler TOME CINDY INHALACI N DOS VECES AL D A active Not Available Not Available No t Available Advair HFA 115 mcg-21 mcg/actuatio n aerosol inhaler INHALE 2 PUFFS BY MOUTH EVERY 12 HOURS active Not Available Not Available No t Available Advair HFA 230 mcg-21 mcg/actuatio n aerosol inhaler TAKE 2 PUFFS BY MOUTH TWICE A DAY IN THE MORNING AND IN THE EVENING active Not Available Not Available No t Available Mintox Maximum Strength 400 mg-400 mg-40 mg/5 mL oral suspension TAKE 20 ML BY MOUTH IF NEEDED FOR INDIGESTION OR HEARTBURN. active Not Available Not Available N ot Available Januvia 100 mg tablet TOME CINDY TABLETA TODOS LOS D active Not Available Not Available No t Available FreeStyle Lite Strips USE 1 EACH 4 TIMES A DAY BEFORE MEALS AND AT NIGHTLY active Not Available Not Available N ot Available Lantus Solostar U-100 Insulin 100 unit/mL (3 mL) subcutaneous pen INJECT 20 UNITS UNDER THE SKIN NIGHTLY AT BEDTIME. active Not Available Not Available No t Available diclofenac 1 % topical gel APPLY 2 G TOPICALLY EVERY 6 (SIX) HOURS. active Not Available Not Available No t Available cholecalcife rol (vitamin D3) 50 mcg (2,000 unit) tablet TOME CINDY TABLETA TODOS LOS D active Not Available Not Available No t Available blood pressure test kit-large cuff Check blood pressure on arm as directed one OR TWO TIMES DAILY active Not Available Not Available Not Available Senexon-S 8.6 mg-50 mg tablet TAKE 2 TABLETS BY MOUTH AT BEDTIME NEEDED CONSTIPATIO N, PLEASE TAKE EVERY OTHER DAY AT BEDTIME active Not Available Not Available N ot Available Dulera 200 mcg-5 mcg/actuatio n HFA aerosol inhaler TAKE 2 PUFFS BY MOUTH TWICE A DAY active Not Available Not Available No t Available Brilinta 90 mg tablet TAKE 1 TABLET BY MOUTH 2 TIMES A DAY active Not Available Not Available Not Available Myrbetriq 25 mg tablet,exten ded release TAKE 1 TABLET BY MOUTH EVERY DAY IN THE MORNING active Not Available Not Available No t Available Linzess 145 mcg capsule TAKE 1 CAPSULE BY MOUTH EVERY DAY active Not Available Not Available No t Available Breo Ellipta 100 mcg-25 mcg/dose powder for inhalation INHALE 1 PUFF BY MOUTH ONCE DAILY active Not Available Not Available No t Available Anoro Ellipta 62.5 mcg-25 mcg/actuatio n powder for inhalation USE 1 INHALATION A DIARIO active Not Available Not Available No t Available Jardiance 10 mg tablet TAKE 1 TABLET BY MOUTH EVERY DAY active Not Available Not Available No t Available Repatha SureClick 140 mg/mL subcutaneous pen injector 140 MG SUBCUTANEOU SLY EVERY 2 WEEKS active Not Available Not Available No t Available Linzess 72 mcg capsule TAKE 1 CAPSULE BY MOUTH EVERY MORNING FOR 30 DAYS active Not Available Not Available No t Available BD Ultra-Fine Micro Pen Needle 32 gauge x 1/4 USE INSTRUCTED active Not Available Not Available N ot Available Nasal Wash packet with sinus rinse device USE NASAL IRRIGATION DAILY FOR SINUS PRESSURE/SI NUSITIS NEEDED. NC active Not Available Not Available N ot Available BD Geetha 2nd Gen Pen Needle 32 gauge x / USE 1 EACH EVERY MORNING active Not Available Not Available No t Available Metamucil (with sugar) 3 gram/7 gram oral powder DISSOLVE 1 ROUNDED TEASPOON (3 GRAMS) IN 8 OUNCES WATER AND DRINK ONCE DAILY active Not Available Not Available No t Available Paxlovid 150 mg-100 mg tablets in a dose pack (Renal Dose) active Not Available Not Available Not Available Dexcom G7 Belt Glass Sander USE DIRECTED active Not Available Not Available No t Available Dexcom G7 Sensor device USE DIRECTED ..CHANGE EVERY 14 DAYS active Not Available Not Available No t Available Vitals Date Recorded Body height Heart rate Respiratory rate Oxygen saturation Oxygen saturation in Arterial blood by Pulse oximetry Body weight Body temperature Systolic blood pressure Diastolic blood pressure Provider Name and Address Organization Details Last Updated DateTime 5 144.78 cm 83 /min 18 /min 97 % 97 % 88255.0 64 g 98.4 [degF] 153 mm[Hg] 67 mm[Hg] Not Available [facility] - production 5 20:31:05 Social History None recorded. Functional Status None recorded. Mental Status None recorded. Family History Nothing Reported. Medical History No medical history recorded. Gynecological HistoryNo gynecological history recorded. Obstetrics History GPAL:G 0 P 0 0 0 0 Past Encounters Encounter ID Performer Location Encounter Start Date Encounter Closed Date Diagnosis/Indication Diagnosis SNOMED-CT Code Diagnosis ICD10 Code Diagnosis Note [id number] RACHNA GUO MD [facility] [address] [place] [phone] 03/26/2024 20:30:34 03/26/2024 23:58:55 Nausea and vomiting 14324505 R11.2 Health Concerns Section Related Observation LastModified by Organization Detai ls LastModified Time None Recorded Concern Status LastModified by Organization Details LastModified Time None Recorded Payers Encounter Date Sequence Insurance Name Policy Number Policy Valdovinos Covered Member ID Valdovinos Member ID Guarantor Name 03/26/2024 1 [facility] [place] - DOS ON OR AFTER 2022 - DUAL ELIGIBLE - [employer] AND [employer] (MEDICARE REPLACEMENT/AD VANTAGE - HMO) Natali Cortes [id number] Natali Cortes Notes Date Note Type Note Provider Name and Address Organization Details Recorded Time 03/26/2024 text/html [facility] Nurse Triage Notes (Linda Stanton - RN): Reason For Request: N/V, abdominal pain Chief Complaints: Vomiting, Abdominal pain PMH: COPD/Asthma, Hypertension, Diabetes Mellitus Type 2, Hyperlipidemia, Allergic Rhinitis PMH Reviewed at 03/26/2024:41 Allergies Reviewed at 03/26/2024:41 Comments: Member is c/o Stomachache and vomiting after eating and drinking . Lots of abdominal pain. No diarrhea. Hx of constipation. Denies any other complaints. Sounds very anxious and worried about dehydration. Reports having a pmh of stomach issues and follows up w/ a GI MD. Attempted to verify allergies but pt sounded stressed and did not continue as she was getting frustrated and confused about her medication allergies. Educated about response time. Dashawn DAMON [employer] Organization Information for [facility] Legal Name: [employer] Address: [address] [place] [address], Behavioral Health Tech: Miguel Brown MD CLIA No.: [id number] [employer] POC Test Results from [facility] iSTAT Chem8+ (20:26:15) Na: 139 mEq/L K: 4.2 mEq/L Cl: 105 mEq/L iCa: 1.16 mmol/L TCO2: 25 mmol/L Glu: 150 mg/dL BUN: 22 mg/dL Crea: 0.7 mg/dL Hct: 41 % Hb: 13.9 g/dL A Attachments uploaded as part of this test result can be found under Documents section. Rapid influenza antigen (20:49:04) Flu: - Rapid COVID antigen (20:49:05) COVID: - .................. .................. .................. .................. .................. .................. .................. ............... [employer] Note From [facility] Ros[facility]: Sent to a call for a pt complaining of nausea/vomiting. [facility] arrives on scene, pt is alert and oriented, airway is patent. Pt has history of Gastritis, and DM2. Pt unable to verify allergies other than Lisinopril, Nystatin, and Naprosyn. Pt complains of dizziness, nausea, vomiting, and epigastric pain starting yesterday afternoon. Pt also complains of chronic constipation. Pt's last BM was two days ago. Pt states she ate a fried pork chop and doesn't know if symptoms are due to gastritis flare or viral illness. Pt denies kumar, cp, sob, hematemesis, diarrhea, fever, or loc. Pt states she tried eating/drinking today, but kept vomiting. (sitting) BP:153/67, P:83, RR:18, SpO2:97% RA, T:98.4; (standing) BP:145/77, P:87; Head: unremarkable; Lung sounds: clear bilaterally; Abdomen: soft, non-tender, no distention; Back: unremarkable; Extremities: no peripheral edema; Skin: pink, warm, dry; IV access/venous blood draw performed; Chem8+ results: uploaded to [facility]. [facility] [place] orders rapid covid/flu test; Zofran 4mg IV and Normal Saline 500ml IV. Covid/flu test: neg; Zofran 4mg IV and Normal Saline 500ml IV administered. Pt reports nausea resolved. [facility] [place] pt's pharmacy. IV removed. Red flags discussed. Pt has no further questions. .................. .................. .................. .................. .................. .................. .................. ............... [facility] Consulted: Rachna Guo .................. .................. .................. .................. .................. .................. .................. ............... Disposition: Fulfilled RACHNA GUO MD [address] [place] [address],[address], [place], [id number], [place] 03/26/2024 22:16:21 OBGyn Episode No OBEpisode recorded.
--- OUTSIDE RECORDS SUMMARY | 2024-03-31 07:55 | XMS_ITS | Encounter Summary ---
Author Organization [employer] Address [address] [facility] [address] [place] [address] Care Team Providers Care Rubber Cutter Name Role Phone Liset Mitchell MD Primary Care Provider [phone] Reason for Visit * Reason Onset Date Comments ER Follow-up 01/29/2024 Encounter Details Date Type Department Care Team ([facility] Contact Info) Description 01/29/2024 Telephone [facility] MED & PEDS [address] [place] [address] Liset Mitchell MD [address] [place] [address] ER Follow-up Social History Tobacco Use Types [...] encounter Miscellaneous Notes * Telephone Encounter - Ching Reynoso RN - 01/29/2024 10:28 AM EST Triage call to Pt with [facility] [place] [id number]. Pt was seen in [facility] 01/28/24 for High BP. (reportis on the chart). Pt calls today for follow up. Pt requests to be seen today because BP is still high. Pt is staying with son because Pt is afraid to have a problem with BP as it is . Pt is taking BPmedication as prescribed daily but, is concerned that it isn't working effectively. Pt is requesting to be seen by provider today. Pt is offered tele visit with PCP 01/31/24 but declines requesting marianne seen today. ASK apt in [facility] at 140pm today. Pt agrees with this disposition. Insurance is verified as active prior to booking. Protocol Used: Blood Pressure - High (Adult) Protocol-Based Disposition: See in Office or Video Visit Today Video visit not offered Positive Triage Question: * Patient wants to be seen * All higher-acuity triage questions were negative Care Advice Discussed: * Reasons To Call Back - Headache, blurred vision, difficulty talking, or difficulty walking occurs - Chest pain or difficulty breathing occurs - You want to go into the office for a blood pressure check - You become worse * Telephone Encounter - Vandana Kerr - 01/29/2024 9:15 AM EST Tc from pt returned call and informed checked her blood pressure and it seems to be high. * Telephone Encounter - Vandana Kerr - 01/29/2024 8:24 AM EST Patient calling to report ED visit on : Date: 01/28/24 Hospital: [facility] Seen for: High blood pressure Symptomatic No *if yes message should go to Triage Patient advised will forward to team nurse for follow up documented in this encounter Plan of Treatment Not on file documented as of this encounter Visit Diagnoses Not on filedocumented in this encounter Additional Health Concerns Assessment Noted Time PHQ-9 Depression Total Score: 0 04/13/19 23 10:04 AM EST documented as of this encounter Care Teams Rubber Cutter Relationship Specialty Start Date End Date Liset Mitchell MD [address] [place] [id number] PCP - General Family Medicine 09/14/20 documented as of this encounter
--- OUTSIDE RECORDS SUMMARY | 2024-03-31 07:55 | XMS_ITS | Encounter Summary ---
Author Organization [employer] Address [address] [facility] [address] [place] [address] Care Team Providers Care Hydroponics Worker Name Role Phone Liset Mitchell MD Primary Care Provider [phone] Reason for Visit * Reason Onset Date Comments Prior Authorization 05/24/2022 Encounter Details Date Type Department Care Team ([facility] st Contact Info) Description 05/24/2022 Telephone [facility] MED [facility] PEDS [address] [place] [address] Liset Mitchell MD [address] [place] [address] Prior Authorization Social History Tobacco Use Types Packs/Day Years [...] suspected to have Coronavirus/COVID-19? No / Unsure 05/19/2022 9:51 AM EDT documented as of this encounter Miscellaneous Notes * Telephone Encounter - Vandana Kerr - 05/24/2022 10:47 AM EDT Tc sujey Hess with [facility] requesting a PA for medication linaCLOtide (Linzess) 290 MCG capsule . documented in this encounter Plan of Treatment Not on file documented as of this encounter Visit Diagnoses Not on filedocumented in this encounter Additional Health Concerns Assessment Noted Time PHQ-9 Depression Total Score: 0 04/13/19 23 10:04 AM EST documented as of this encounter Care Teams Hydroponics Worker Relationship Specialty Start Date End Date Liset Mitchell MD [address] [place] [address] PCP - General Family Medicine 09/14/20 documented as of this encounter
--- OUTSIDE RECORDS SUMMARY | 2024-03-31 07:55 | XMS_ITS | Data Portability ---
Author Organization [email or web address], [place] [employer] Address [address] [place] [address] Care Team Providers Care Network Systems Engineer Name Role Phone HIM CCA OTHER [facility] Primary Care Provider Assessment Encounter Date Assessment Date Assessment LastModified by Organization Details LastModified Time 10/22/2023 10/22/2023 As noted, we orlando mclaughlin called to see this patient regarding concerns of nausea. Evaluation in the field was performed by my family protection specialist colleague, as noted above, I provided real-time direction and supervision for this visit. The evaluation revealed 77y F with 2 wks nausea and loss of appetite w constipation, no signs of dehudration on exam. Ddx is broad: No fever, sick contacts or other sxs to suggest infectious gastro. She is on multiple OTC acid medications raising possibility of PUD or gastritis. Ddx also includes SBO though has not h/o such or relevant surgeries. Alt diverticulitis but no diarrhea. reports no BRBPR or melena, no hematemesis. Discussed options of ER tonight v labs (UA, POC blood work) + symptom control w option to call PCP in am. She selects in between w sxs control tonight and she will go to ER in am. Impression: nauesa with abdominal pain Plan: zofran 4mg, omeprazole 20mg, present to ER in am Primary care, consider outreach w/in 48-72h to confirm ER presentationand work up +/- schedule outpatient f/u Disposition: We discussed the diagnostic uncertainty of home visits and the risk associated with this. In this case, the patient and I felt this to be an acceptable and reasonable amount of risk given the benefit of avoiding an ED visit. We discussed the need to seek care urgently/emergently in the setting of any new or worsening serious symptoms, particularly fever, chills, vomiting, confusion, worsening pain, diarrhea atilhou Not available 10/22/2023 20:50:36 11/29/2023 11/29/2023 As noted, we wer e called to see this patient regarding concerns of umbilical rash. Evaluation in the field was performed by my family protection specialist colleague, as noted above, I provided real-time direction and supervision for this visit. 2-3 days of redness near the umbilicus. reported slimy discharge by triage. no purulence, could be cellulitic or fungal. recommend trial of topical clotrimazole Impression: umbilical rash Plan: trial antifungal Disposition: We discussed the diagnostic uncertainty of home visits and the risk associated with this. In this case, the patient and I felt this to be an acceptable and reasonable amount of risk given the benefit of avoiding an ED visit. We discussed the need to seek care urgently/emergently in the setting of any new or worsening serious symptoms, particularlyfever, chills, abdominal pain Not available 11/29/2023 16:22:01 01/30/2024 01/30/2024 I provided real -time medical direction via phone for this encounter and was available for additional phone-based assistance as needed. I have reviewed and agree with the Assessment and Plan as documented by the Dry Cell Tester. Patient given the opportunity to ask questions. Our service contacted for an assessment of: Non adherence with medication to treat hypertension As per above, patient was prescribed amlodipine by either senior construction manager PCP and is not adherent to medication given the fact this previously caused a known side effect of peripheral edema. Patient states she will not take medications. Denies chest pain, shortness of breath, dyspnea on exertion, any focal neurologic deficits. Per family protection specialist on the scene, vital signs are stable patient is afebrile. Systolic blood pressures in the 160s. Diastolics in the upper 80s. Nonfocal neuro exam. Impression: Essential hypertension with non adherence to amlodipine prescribed by provider due to known side effects of medication. Plan: Encourage patient to follow-up with providers and will right this note accordingly. She could take hydrochlorothiazide or some combination pill as a peripheral vasodilators does appear to be in her care plan. She is allergic to lisinopril but it is unclear whether or not an ARB could be in her treatment regimen. She is also allergic to metoprolol is unclear whether another beta myra could be substituted. No calcium channel blockers are mentioned in her allergies. Allergies: Reviewed PCP f/u: Will need follow-up regarding re-evaluation a prescribed medication We discussed the diagnostic uncertainty of home visits and the risk associated with this. In this case, the patient and I felt this to be an acceptable and reasonable amount of risk given the benefit of avoiding an ED visit. We discussed the need to seek care urgently/emergently in the setting of any new or worsening serious symptoms, particularly fever chills [email or web address] Not available 01/30/2024 21:10:40 02/08/2024 02/08/2024 As noted, we orlando e called to see this patient regarding concerns of ___ Evaluation in the field was performed by my family protection specialist colleague, as noted above, I provided real-time direction and supervision for this visit. The evaluation revealed a 78 y/o patient presents with pain inside her nose. This has been going on for three days. Patient recently had her house fumigated for roaches. She left the house and then came back on Sunday. She started having irritation inside her nose. She feels like there are sores in the nose. She's had some intermittent bleeding from the nose. She says she has pain when she puts her fingers in her nose. She denies any significant nasal congestion. No fevers or chills. No chest pain or shortness of breath. On the physical exam done by the family protection specialist, he does not see any sores inside the bilateral Nares. The patient has no shortness of breath. The patient has no respiratory distress. Lung sounds were clear. She had a basically normal exam. 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 I wonder if there is some dryness in her nares. There's also the possibility of infection. Impression: Nasal soreness and irritation Plan: The patient appears well. On physical exam we did not see any signs of irritation inside the nose or bleeding at this time. The patient could have a possible staph infection that could be bothering her. We will go ahead and prescribe her mupirocin ointment to be placed in the bilateral nares for the next 4 -5 days. This was discussed with the patient via the family protection specialist. An shrimp packer was used. Pt instructed to have an in person visit with her PCP if things are not improving. Primary care, consider in person eval or ENT eval for persistent symptoms Disposition: stay at home We discussed the diagnostic uncertainty of home visits and the risk associated with this. In this case, the patient and I felt this to be an acceptable and reasonable amount of risk given the benefit of avoiding an ED visit. We discussed the need to seek care urgently/emergently in the setting of any new or worsening serious symptoms, particularly fever, excessive bleeding [email or web address] Not available 02/08/2024 11:20:45 03/26/2024 03/26/2024 Ms. Ai gee is a 78 yo F with h/o [...] Assessment and Plan as documented by the Dry Cell Tester. We discussed the diagnostic uncertainty of home visits and the risk associated with this. In this case the patient and I felt this to be an acceptable and reasonable amount of risk given the benefit of avoiding an ED visit. The patient given the opportunity to ask questions. Follow up with primary care was recommended, as needed. Advised if develops CP/severe SOB/turning blue/uncontrolled n/v/d or black/bloody emesis or stool/ AMS/ syncope/ high fever unresponsive to APAP to call 911- verbalized understanding of instruction. [email or web address] Not available 03/26/2024 21:24:50 Plan of Treatment Reminders Order Date Submit Date Provider Last Modified By Organization Details Last Modified Time Details Appointments None recorded. Lab BMP, serum or plasma 2024 025 [email or web address] [email or web address] Main - [facility], [address] [place] [address], [id number], 5 21:24:08 rapid SARS CoV 2 Ag, QL IA, respiratory specimen [address], [address] [place] [address], [id number], 5 21:24:08 rapid flu (A+B) [address], [address] [place] [address], [id number], 5 21:24:08 Referral None recorded. Procedures None recorded. Surgeries None recorded. Imaging None recorded. Medication Orders ondansetron 4 mg disintegrat ing tablet 2023 024 [id number], [address] [place] [address], [address], 4 20:50:43 omeprazole 20 mg tablet,dede yed release 2023 024 [id number], [address] [place] [address], [address], 4 20:50:43 clotrimazol e 1 % topical cream 2023 024 [id number] [address] [place], [address], 4 10:20:27 mupirocin 2 % topical ointment 2023 024 [id number], [address] [place], [address], 4 10:59:37 ondansetron HCl (PF) 4 mg/2 mL injection solution 2024 025 [id number] [place], [address], 5 21:24:08 sodium chloride 0.9 % intravenous solution 2024 025 [email or web address] i7 [facility] #[id number], [address] [place], [address], 5 21:24:08 ondansetron 4 mg disintegrat ing tablet 2024 025 [id number], [address] [place], [address], 5 21:24:10 Patient TargetsNo targets recorded. Patient InstructionsNo instructions recorded. Reason for Referral None Reported. Results Created Date Observation Date Name Description Value Unit Range Abnormal Flag Note LastModifiedBy Organization Detail LastModifiedTime 03/26/1903/26/2024 rapid SARS CoV 2 Ag, QL IA, respi rator y speci men rapid SARS CoV 2 Ag, QL IA, respiratory specimen negati ve Not Available [facility] [address] [place] [address], [id number], 03/26/2024 20:33:01 03/26/19 25 03/26/2024 rapid flu (A+B) Flu negati ve Not Available [facility] [address] [place] [address], [id number], 03/26/2024 20:33:02 Result Notes None recorded. Medical Equipment None Reported. Allergies Allergen ID Allergen Name Allergen Category Reaction Reaction Severity Criticality Documentation Date Start Date Code Code System Note Provider Name and Address Organization Details Recorded Time 61364 metoprolo l Not available Not available Not available Not available 01/30/2024 6918 RxNorm Not Available [facility] - production 17:06:26 6413 ezetimibe medicatio n Not available Not available Not available 11/29/2023 65208 8 RxNorm Not Available [facility] - production 13:58:51 6414 fluticaso ne Not available Not available Not available Not available 11/29/2023 77124 RxNorm Not Available [facility] - production 13:58:51 6415 hydrocodo ne Not available Not available Not available Not available 11/29/2023 5489 RxNorm Not Available [facility] - production 17:06:26 6416 umeclidin ium medicatio n chest pain Not available Not available 11/29/2023 43801 14 RxNorm Giorgio Pathak MD [address] [facility],[address], [place], [phone], [facility] - [employer] 16:24:27 6417 lisinopri l medicatio n Not available Not available Not available 11/29/2023 77132 RxNorm Not Available [facility] - production 13:58:51 [...] rosuvastatin 20 mg tablet TOME CINDY TABLETA active Not Available Not Available No t [...] Ultra-Fine Mini Pen Needle 31 gauge x 16 USE DIRECTED active Not Available Not Available [...] Januvia 100 mg tablet TOME CINDY TABLETA active Not Available Not Available No t [...] mcg (2,000 unit) tablet TOME CINDY TABLETA active Not Available Not Available No t [...] 2nd Gen Pen Needle 32 gauge x /32 USE 1 EACH EVERY MORNING active Not Available Not Available No t Available Metamucil (with sugar) 3 gram/7 gram oral powder DISSOLVE 1 ROUNDED TEASPOON (3 GRAMS) IN 8 OUNCES WATER AND DRINK ONCE DAILY active Not Available Not Available No t Available Paxlovid 150 mg-100 mg tablets in a dose pack (Renal Dose) active Not Available Not Available Not Available Dexcom G7 Gastroenterology Physician USE DIRECTED active Not Available Not Available No t Available Dexcom G7 Sensor device USE DIRECTED ..CHANGE EVERY 14 DAYS active Not Available Not Available No t Available Vitals Date Recorded Respiratory rate Oxygen saturation Oxygen saturation in Arterial blood by Pulse oximetry Body temperature Heart rate Systolic blood pressure Diastolic blood pressure Provider Name and Address Organization Details Last Updated DateTime 4 16 /min 98 % 98 % 99.4 [degF] 81 /min 174 mm[Hg] 80 mm[Hg] Not Available [email or web address] 4 19:42:28 Date Recorded Oxygen saturation Oxygen saturation in Arterial blood by Pulse oximetry Heart rate Respiratory rate Body temperature Body weight Systolic blood pressure Diastolic blood pressure Provider Name and Address Organization Details Last Updated DateTime 4 98 % 98 % 97 /min 16 /min 98.2 [degF] 03507.0 24 g 164 mm[Hg] 72 mm[Hg] Not Available [email or web address] 4 10:16:47 Date Recorded Body temperature Body weight Oxygen saturation Oxygen saturation in Arterial blood by Pulse oximetry Respiratory rate Heart rate Systolic blood pressure Diastolic blood pressure Provider Name and Address Organization Details Last Updated DateTime 4 97.4 [degF] 05066.8 8 g 99 % 99 % 16 /min 86 /min 162 mm[Hg] 84 mm[Hg] Not Available [email or web address] 4 21:07:32 Date Recorded Oxygen saturation Oxygen saturation in Arterial blood by Pulse oximetry Heart rate Respiratory rate Body temperature Body weight Systolic blood pressure Diastolic blood pressure Provider Name and Address Organization Details Last Updated DateTime 4 99 % 99 % 78 /min 16 /min 98.2 [degF] 00814.8 8 g 146 mm[Hg] 80 mm[Hg] Not Available [email or web address] 4 10:51:35 Date Recorded Body height Heart rate Respiratory rate Oxygen saturation Oxygen saturation in Arterial blood by Pulse oximetry Body weight Body temperature Systolic blood pressure Diastolic blood pressure Provider Name and Address Organization Details Last Updated DateTime 5 144.78 cm 83 /min 18 /min 97 % 97 % 99281.0 64 g 98.4 [degF] 153 mm[Hg] 67 mm[Hg] Not Available [email or web address] 5 20:31:05 Social History None recorded. Functional Status None recorded. Mental Status None recorded. Family History Nothing Reported. Medical History No medical history recorded. Gynecological HistoryNo gynecological history recorded. Obstetrics History GPAL:G 0 P 0 0 0 0 Past Encounters Encounter ID Performer Location Encounter Start Date Encounter Closed Date Diagnosis/Indication Diagnosis SNOMED-CT Code Diagnosis ICD10 Code Diagnosis Note [id number] Sosa Donnelly MD Main - [facility] [address] [place] [phone] 07/20/2021 17:44:53 11/22/2021 12:52:06 Dysuria 82605845 R30.9 [id number] Holland Lewis MD Main - [facility] [address] [place] [phone] 08/24/2021 17:49:18 11/17/2021 12:06:10 Adverse reaction to drug 79421945 T50.905A Reports some nausea and fatigue immediatel y after taking hydroxyzin e. Denies palpitatio ns (as in the expect note), chest pain, or chest pressure. Asymptomat ic now and feels back at baseline. Advised she go back to taking the hydroxyzin e once a day and communicat e all medication changes closely with primary care provider. [id number] Narendra Hassan MD Main - [facility] [address] [place] [phone] 10/08/2021 16:48:26 11/21/2021 12:43:51 Dysuria 92349579 R30.9 Will await culture prior to treatment given equivocal U/A [id number] Nataliia Grewal MD Main - [facility] [address] [place] [phone] 07/13/2022 17:00:14 07/14/2022 08:55:34 Inguinal pain 802508404 R10.2 [id number] Holland Lewis MD Main - [facility] [address] [place] [phone] 08/24/2022 12:05:17 08/24/2022 22:29:37 Wheezing 76849526 R06.2 suspect viral-william kimberley bronchospa sm. Patient had some improvemen t with a short course of steroids prescribed last week but symptoms persist. No evidence of bacterial superinfec tion based on available data. Offered DuoNeb and a recurrent course of steroids, but patient declined. She will seek further care with her PCP. Red flags reviewed by family protection specialist and patient in understand ing. [id number] González Campo MD Main - [facility] [address] [place] [phone] 12/12/2022 18:24:35 12/13/2022 22:28:07 Facial swelling 963650495 R22.0 [id number] Rich Lee MD Main - [facility] [address] [place] [phone] 03/26/2023 19:07:48 03/27/2023 10:52:20 Pain in right foot [id number] 12396 M79.671 This 77-year-ol d female with type 2 diabetes got her right foot caught in a screen today, and she thinks it cut her foot. The family protection specialist found no visual trauma to her right foot. I recommende d observatio n. She will follow-up with her PCP for any ongoing problems with her foot. The patient agreed with this plan. [id number] Nataliia Grewal MD Main - [facility] [address] [place] [phone] 07/17/2023 13:48:23 07/17/2023 17:51:58 Shoulder pain 04577195 M25.519 [id number] González Campo MD Main - [facility] [address] [place] [phone] 08/10/2023 16:32:57 08/10/2023 21:11:42 Seasonal allergic rhinitis 483914306 J30.2 [id number] Luci Corey MD Main - [facility] [address] [place] [phone] 10/22/2023 19:42:26 10/22/2023 21:01:10 Nausea 375161848 R11.0 [id number] Giorgio Pathak MD Main - [facility] [address] [place] [phone] 11/29/2023 10:16:41 11/30/2023 00:42:40 Erythematous rash 188760685 R21 could be cellulitis vs fungal process [id number] Nataliia Grewal MD Main - [facility] [address] [place] [phone] 01/30/2024 21:07:30 01/31/2024 08:54:42 Essential hypertension 96938925 I10 [id number] PRAMOD SIMONS MD Main - [facility] [address] [place] [phone] 02/08/2024 10:51:33 02/08/2024 14:05:30 Lesion of nasal mucosa 592476171 J34.89 [id number] [facility] [address] [place] [phone] 03/26/2024 20:30:34 03/26/2024 23:58:55 Nausea and vomiting 62658693 R11.2 Health Concerns Section Related Observation LastModified by Organization Detai ls LastModified Time None Recorded Concern Status LastModified by Organization Details LastModified Time None Recorded Advance Directives Directive None Recorded Payers Encounter Date Sequence Insurance Name Policy Number Policy Valdovinos Covered Member ID Valdovinos Member ID Guarantor Name 10/22/2023 1 [employer] [facility] - DOS ON OR AFTER 2022 - DUAL ELIGIBLE - LONG TERM OPTIONS AND ONE CARE (MEDICARE REPLACEMENT/AD VANTAGE - HMO) Natali Cortes [id number] Natali Cortes 11/29/2023 1 [employer] [facility] - DOS ON OR AFTER 2022 - DUAL ELIGIBLE - LONG TERM OPTIONS AND ONE CARE (MEDICARE REPLACEMENT/AD VANTAGE - HMO) Natali Cortes [id number] Natali Cortes 01/30/2024 1 [employer] [facility] - DOS ON OR AFTER 2022 - DUAL ELIGIBLE - LONG TERM OPTIONS AND ONE CARE (MEDICARE REPLACEMENT/AD VANTAGE - HMO) Natali Cortes [id number] Natali Cortes 02/08/2024 1 [employer] [facility] - DOS ON OR AFTER 2022 - DUAL ELIGIBLE - LONG TERM OPTIONS AND ONE CARE (MEDICARE REPLACEMENT/AD VANTAGE - HMO) Natali Cortes [id number] Natali Cortes 03/26/2024 1 [employer] [facility] - DOS ON OR AFTER 2022 - DUAL ELIGIBLE - LONG TERM OPTIONS AND ONE CARE (MEDICARE REPLACEMENT/AD VANTAGE - HMO) Natali Cortes [id number] Natali Cortes Notes Date Note Type Note Provider Name and Address Organization Details Recorded Time 10/22/2023 text/html HPI: HX: Constipation and gas bloat syndrome.Per Triage this morning patient contacted with [employer] Configuration Management Consultant [id number]. Patient answered call on second attempt and confirms that she went to [facility] but was unable to wait to be seen. ...................... ...................... ...................... ...................... ...................... ...................... ......... CRC Nurse Triage Notes (Jaye Smart): Chief Complaints: Abdominal Pain, Gastrointestinal Concerns (other) PMH: COPD/Asthma, Diabetes, COPD/Asthma, Hypertension Other Allergies: Estimibe,fluticasone,u meclidinum,empaglifozi n,hydrocodone,lisinopr il, metformin, mold and smuts, oxycodone. sitaglipin Comments: CRC RN did not require any additional information to process this visit.per C: 2 weeks with abdominal pain and poor appetite with bloating, difficulty eating due to nausea, some dizziness. no diarrhea, taking laxatives b/c she is constipated. a week ago, she vomited. drinking fluids okay. no fevers. lives alone. did see her sister who has cancer but is not sick currently. stomach symptoms are the same, not better or worse. she has an appt w her PCP 11/19. tolerating very little to eat. no known stomach issues. reporting significant nausea. taking sucralfate and otc acid medication............ ...................... ...................... ...................... ...................... ...................... .................... Dry Cell Tester Note From Laith Fisher: Dispatch to evaluate 77-year-old female with chief complaint of abdominal pain.Upon arrival, patient is AO times four, ambulating on her own without difficulty, and does not appear to be in acute distress. Patient is German-speaking and required Configuration Management Consultant services. Patient reports that she has been experiencing pain in the epigastric area of her abdomen for several days. She also reports nausea and acid reflux. Vital signs and abdominal exam were unremarkable. Abdomen was soft and nontender on palpation no point or rebound tenderness, or palpable masses. [facility] Luci Corey spoke to the pt at length. She advised the pt that based on the info that she provided regarding her symptoms, that she doesn? t see anything immediately dangerous in what she describing. She recommended that pt follow up either with her pcp or the ER do that imaging can be performed.Pt was agreeable and states that she will go to the ER tomorrow am. She does not want to go tonight as she feels that she will wait too long.[facility] ordered 4mg Zofran ODT and Omeprazole 20mg PO. 5 rights were conformed and PO meds were administered as ordered.Pt to follow up with ER tomorrow am ...................... ...................... ...................... ...................... ...................... ...................... ......... Disposition: Fulfilled Luci Corey MD [address] [facility],[address], [place], [address], [email or web address] 10/22/2023 20:51:37 11/29/2023 text/html HPI: Multiple listed drugh intolerances:Umeclidni um, acetaminophen,empaglif lozen,hydrocodone, ibuprofen, lisinopril ,metformin, mold smuts, oxycodone,sitaglipin ...................... ...................... ...................... ...................... ...................... ...................... ......... CRC Nurse Triage Notes (Linda Stanton): Chief Complaints: Wound Care PMH: Hypertension, Diabetes, COPD/Asthma, Hypertension Other Allergies: Ezetimibe,fluticasone Comments: 77 year old female with PMH: DM, Copd/asthma, HTNAllergies in many listed above. c/o Patient reported slimy discharge from umbilicus. Evaluation and culture if indicated treatment as required.[facility] RNreviewed info ...................... ...................... ...................... ...................... ...................... ...................... ......... Dry Cell Tester Note From Salazar Jean-Baptiste: Pt co reddish/pnik colored sore in Umbilicus, pt sts she noticed last even when shower Pt sts had leaking fluid however today no discharge or blood. Pt sts is painful when sh bends over. Pt denies fever, NVD, CP, SOB, Headache, dizziness or other abdominal joe Baseline vitals assessed, Photos taken of wound/insect bite and uploaded to [facility] ap febrile, Some pain on palpation. 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 Pt education on signs indicating the ER advised if worsens or does not improve in next couple of days to contact pcp. ...................... ...................... ...................... ...................... ...................... ...................... ......... Disposition: Fulfilled Giorgio Pathak MD [address] [place] [address],[address], [place], [phone], [employer] 12/25/2023 21:40:03 01/30/2024 text/html [facility] Nurse Triage Notes (Vicki Jane): Reason For Request: Patient is in need of medication for her bp, has not been taking Chief Complaints: Hypertension PMH: COPD/Asthma, Hypertension, Diabetes Mellitus Type 2 Comments: Requesting BP check. Has not started taking Amlodipine that was prescribed at PCP appt yesterday. Was on amlodipine years ago but it was discontinued because of causing edema. Patient does not wish to take. Denies headache, dizziness, chest pain, shortness of breath, or swelling. ...................... ...................... ...................... ...................... ...................... ...................... ......... Dry Cell Tester Note From Salazar Jean-Baptiste: Pt wanted BP evaluated. Pt was diagnosed with elevated BP and was prescribed amplodipine and is unwilling to take medications as she feels it causes her lower extremity edema. Pt denies CP, SOB, Headache, dizziness, NVD, abdominal pain. Baseline vitals assessed, WNL, Bp slightly elevated. [facility] contacted and advised pt to contact cardiology for follow up and also PCP. Pt education on signs indicating the ER. ...................... ...................... ...................... ...................... ...................... ...................... ......... [facility] Consulted: Nataliia Grewal ...................... ...................... ...................... ...................... ...................... ...................... ......... Disposition: Fulfilled Nataliia Grewal MD [address] [facility],[address], [place], [address], [email or web address] 01/30/2024 21:10:54 02/08/2024 text/html [facility] Nurse Triage Notes (Vicki Jane - RN): Reason For Request: Pt reporting for about 3 days reporting a blockage in her nose and notes it feels very dry>denies fever/chills>denies headache, denies dizziness. Chief Complaints: Wound care PMH: COPD/Asthma, Hypertension, Diabetes Mellitus Type 2, Hyperlipidemia Comments: German speaking member calling to request visit for painful sores inside both nares for the past 3 days. Reports intermittent bleeding. Has been applying vaseline. Does not wear 02. ...................... ...................... ...................... ...................... ...................... ...................... ......... Dry Cell Tester Note From Salazar Jean-Baptiste: Pt co sores inside her nose for past 3 days. Pt sts had apartment fumigation done. Pt sts sore developed after the fumigation when she returned to her apartment, Pt sts sore bleed occasionally and are painful. Pt denies NC, Cough, NVD, SOB, CP, headache, dizziness, abdominal pain or fever. Baseline vitals assessed, WNL, Afebrile, Lungs clear bilaterally, no visible sore around nostrils, unable to get good visual inside nostrils. Juan Simons contacted and RX for mupirocin called into pharmacy. Pt advised to use the antibiotic ointment for up to 4-5 days and if no relief to contact PCP for further evaluation. Pt education on signs indicating the ER. ...................... ...................... ...................... ...................... ...................... ...................... ......... [facility] Consulted: Pramod Simons ...................... ...................... ...................... ...................... ...................... ...................... ......... Disposition: Fulfilled PRAMOD SIMONS MD [address] [place] [address],[address], [place], [phone], [email or web address] 02/08/2024 11:21:07 03/26/2024 text/html [facility] Nurse Triage Notes (Linda Stanton - NELSON): Reason For Request: N/V, abdominal pain Chief Complaints: Vomiting, Abdominal pain PMH: COPD/Asthma, Hypertension, Diabetes Mellitus Type 2, Hyperlipidemia, Allergic Rhinitis PMH Reviewed at 03/26/2024 18:41 Allergies Reviewed at 03/26/2024:41 Comments: Member is [...] medication allergies. Educated about response time. Dashawn RN Dry Cell Tester Organization Information for [facility] Legal Name: [employer] Address: [address] [place] [id number], Supervisor Filtration: Miguel Brown MD CLIA No.: [id number] Dry Cell Tester POC Test Results from [facility] iSTAT [...] - Rapid COVID antigen (20:49:05) COVID: - ...................... ...................... ...................... ...................... ...................... ...................... ......... Dry Cell Tester Note From [facility]: Sent to a [...] blood draw performed; Chem8+ results: uploaded to [employer]. [facility] consulted and orders rapid covid/flu test; Zofran 4mg IV and Normal Saline 500ml IV. Covid/flu test: neg; Zofran 4mg IV and Normal Saline 500ml IV administered. Pt reports nausea resolved. [facility] sends script to pt's pharmacy. IV removed. Red flags discussed. Pt has no further questions. ...................... ...................... ...................... ...................... ...................... ...................... ......... [facility] Consulted: Gene Bo ...................... ...................... ...................... ...................... ...................... ...................... ......... Disposition: Fulfilled GENE BO MD [address] [place] [address],[address] [facility], [place], [address], [email or web address] 03/26/2024 22:16:21 OBGyn Episode No OBEpisode recorded.
--- OUTSIDE RECORDS SUMMARY | 2024-03-31 07:55 | XMS_ITS | Encounter Summary ---
Author Organization [employer] Address [address] [facility] [address] [place] [address] Care Team Providers Care Silo Tender Name Role Phone Liset Mitchell MD Primary Care Provider [phone] Reason for Visit * Reason Onset Date Comments Nurse Triage 03/13/2024 Encounter Details Date Type Department Care Team ([facility] st Contact Info) Description 03/13/2024 Telephone [facility] [address] [place] [address] Liset Mitchell MD [address], [place] [phone] Nurse Triage Social History Tobacco Use Types Packs/Day [...] Encounter - Mary Rivas RN - 03/13/2024 9:02 AM EST Second attempt Call returned to Natali Santos to triage below. Reports having elevated BP today of SBP 150 . Per pt had not yet taken BP meds. Pt does endorse starting incrased dose of amlodipine. Ptstates has been having elevated BP and congestion sx since starting Repatha. Pt states did call Cardiology who is prescriber to inform. Pt wants PCP input. Pt advised no aptps with PCP today for examNatali Santos agrees to [facility] appt for BP check and eval of congestion. Reviewed home care advise, ERprecautions and reasons to call back. Protocol Used: Blood Pressure - High (Adult) Protocol-Based Disposition: See in Office or Video Visit within 2 Weeks Future Appointments Date Time Provider Department Center 03/13/2024 2:20 PM [facility] Insurance verified as active per Real Time Eligibility in [facility]. Video visit offer not recorded Positive Triage Question: * Systolic BP >= 130 OR Diastolic >= 80, and is taking BP medications * All higher-acuity triage questions were negative Care Advice Discussed: * Reassurance and Education - BP 120-129 / 80 * High Blood Pressure * Reasons To Call Back - Headache, blurred vision, difficulty talking, or difficulty walking occurs - Chest pain or difficulty breathing occurs - You want to go into the office for a blood pressure check - You become worse * Telephone Encounter - Mary Rivas RN - 03/13/2024 8:51 AM EST Per chart review pt had telehealth with PCP on 02/29/24 plan of care of BP Hypertension - Primary Continue to monitor leg edema and BP at home, increasing Amlodipine to 5 mg. Relevant Medication Amlodipine (Norvasc) 5 mg tablet Pt seen by Osvaldo on 03/11/24 for nasal pain. Pt did not have bleeding. Given rx for mupirocin to apply to nares x 4-5 days. Bp at that visit was 146/80 Call returned to Natali Santos for triage below. No answer LVM to return call to [facility] triage line [phone]. * Telephone Encounter - Mali Tyler - 03/13/2024 8:41 AM EST Symptoms: High Blood Pressure - Caller Reports, Cough, Ear Pressure, Nose bleeding. (Pt states are secondary symptoms from Repatha Sure click 140MG Injection new med.) Outcome: Transfer to a nurse or provider NOW! Reason: Change in vision, Trouble breathing The caller accepted this outcome. [phone] (Monegasque) documented in this encounter Plan of Treatment Not on file documented as of this encounter Visit Diagnoses Not on filedocumented in this encounter Additional Health Concerns Assessment Noted Time PHQ-9 Depression Total Score: 4 02/28/19 25 9:06 AM EST documented as of this encounter Care Teams Silo Tender Relationship Specialty Start Date End Date Liset Mitchell MD [address] [place] [phone] PCP - General Family Medicine 09/14/20 documented as of this encounter
--- OUTSIDE RECORDS SUMMARY | 2024-03-31 07:55 | XMS_ITS | Encounter Summary ---
Author Organization [employer] Address [address] [facility] [address] [place] [address] Care Team Providers Care Supervisor Grove Name Role Phone Liset Mitchell MD Primary Care Provider [phone] Encounter Details Date Type Department Care Team ([facility] Contact Info) Description 03/13/2024 Orders Only GENERIC EXTERNAL DATA DEPARTMENT Provider, Generic External Data Social History Tobacco Use Types Packs/Day Years [...] Comments OBSX1 Routine 03/13/2024 1:30 PM EST CBC WITH AUTO DIFFERENTIAL Routine 03/13/2024 12:34 PM EST URINALYSIS WITH REFLEX MICROSCOPIC Routine 03/13/2024 12:34 PM EST PROTHROMBIN TIME-INR Routine 03/13/2024 12:34 PM EST COMPREHENSIVE METABOLIC PANEL Routine 03/13/2024 12:34 PM EST documented in this encounter Results * OBSX1 (03/13/2024 1:30 PM EST) OBS1 NEGATIVE NEGATIVE [facility] 03/13/2024 1:30 PM EST 03/13/2024 1:33 PM EST us Generic External Data Provider LAB BLOOD ORDERAB LES Final Result [facility] [address] [place] [phone] * (ABNORMAL) Comprehensive Metabolic Panel (03/13/2024 12:34 PM EST) Sodium 142 135 - 145 mmol/L [facility] Potassium 4.7 3.3 - 5.1 mmol/L [facility] Chloride 111(H) 96 - 108 mmol/L [facility] Carbon Dioxide 27 22 - 29 mmol/L [facility] Anion Gap 9(L) 12 - 20 [facility] Urea Nitrogen (BUN) 21(H) 9 - 16 mg/dL [facility] Creatinine, Serum 0.77 0.5 - 1.4 mg/dL [facility] Creatinine Clr Calc Pharmacy 46.0 [facility] Comment:Provided height and weight: 142.24 cm,66.5 kg.eGFR (calculated from the MDRD study equation) and eCrCl(calculated from the Cockcroft-Gault equation) are based ondifferent parameters and may not yield comparable results.If eCrCl result is absurd, please check patient'sheight/weight. Estimated Glomerular Filt Rate >60 [facility] Comment:Chronic Kidney Disea se: Estimated GFR < 60 mL/min/1.89n2Ywqity Kidney Disease: Estimated GFR < 15 mL/min/1.73m2 Glucose 110 60 - 115 mg/dL [facility] Calcium 9.4 8.4 - 10.2 mg/dL [facility] Bilirubin, Total 0.3 0.0 - 1.0 mg/dL [facility] Aspartate Amino Transferase 27 5 - 31 U/L [facility] Alanine Aminotransferase 26 0 - 31 U/L [facility] Total Protein 7.3 6.5 - 8.0 g/dL [facility] Albumin Level 4.0 3.5 - 5.0 g/dL [facility] Alkaline Phosphatase 54 39 - 117 U/L [facility] 03/13/2024 12:3 4 PM EST 03/13/2024 12:38 PM EST us Generic External Data Provider LAB BLOOD ORDERAB LES Final Result [facility] [address] [place] [address] [phone] * Prothrombin Time-INR (03/13/2024 12:34 PM EST) Prothrombin Time 11.2 10.9 - 12.4 SEC [facility] INTERNATIONAL NORM RATIO 1.0 0.9 - 1.1 [facility] Comment:INTERNATIONAL NORMAL IZED RATIO (INR) [...] ORDERAB LES Final Result Performing Organization Address [facility] Co de Phone Number [facility] [address] [place] [phone] * Urinalysis w/reflex microscopic (03/13/2024 12:34 PM EST) Color Urine Yellow [facility] Appearance Urine Clear [facility] PH 6.0 5.0 - 9.0 [facility] Glucose Urine UA Negative Negative mg/dL [facility] Urine Blood Negative Negative [facility] Specific Addison - Urine <=1.005 1.005 - 1.025 [facility] Urine Protein Negative Neg-Trace mg/dL [facility] Urine Ketones Negative Negative mg/dL [facility] Nitrite Urine Negative Negative [facility] Leukocyte Esterase Urine Negative Negative [facility] 03/13/2024 12:3 4 PM EST 03/13/2024 12:38 PM EST Narrative [facility] - 03/13/2024 12:42 PM EST [id number], [employer] us Generic External Data Provider LAB URINE ORDERAB LES Final Result Performing Organization Address [facility] Co de Phone Number [facility] [address] [place] [address] [phone] * CBC auto differential (03/13/2024 12:34 PM EST) White Blood Count 6.9 4.8 - 10.8 X10*3/uL [facility] Red Blood Count 4.46 4.20 - 5.50 X10*6/uL [facility] Hemoglobin 13.8 12.0 - 16.0 g/dl [facility] Hematocrit 39.9 37.0 - 47.0 % [facility] Mean Corpuscular Volume 89.5 80.0 - 98.0 fL [facility] Mean Corpuscular Hemoglobin 30.9 27.0 - 33.0 pg [facility] Mean Corpuscular HGB Conc 34.6 31.0 - 35.0 g/dl [facility] Red Cell Distribution Width 12.8 11.0 - 16.0 % [facility] Platelet Count 200 160 - 400 X10*3/uL [facility] Mean Platelet Volume 10.6 9.4 - 12.3 fL [facility] Neutrophils Percent Auto 69.2 45 - 73 % [facility] Imm Gran Pct Auto 0.4 0.0 - 0.4 % [facility] Lymphocytes Percent Auto 22.4 20 - 40 % [facility] Monocytes Percent Auto 6.4 2 - 11 % [facility] Eosinophils Percent Auto 0.9 0 - 4 % [facility] Basophils Percent Auto 0.7 0 - 2 % [facility] NRBC Pct Auto 0.0 0.0 - 0.2 /100WBC [facility] Neutrophils Absolute Auto 4.7 2.0 - 8.3 x10*3/uL [facility] Imm Gran Abs Auto 0.03 0.00 - 0.03 X10*3/uL [facility] Lymphocytes Absolute Auto 1.5 1.2 - 4.9 X10*3/uL [facility] Monocytes Absolute Auto 0.4 0.1 - 1.2 X10*3/uL [facility] Eosinophils Absolute Auto 0.1 0.0 - 0.4 X10*3/uL [facility] Basophils Absolute Auto 0.1 0.0 - 0.2 X10*3/uL [facility] NRBC Abs Auto 0.000 0.0 - 0.012 X10*3/uL [facility] 03/13/2024 12:3 4 PM EST 03/13/2024 12:38 PM EST us Generic External Data Provider LAB BLOOD ORDERAB LES Final Result [facility] [address] [place] [phone] documented in this encounter Visit Diagnoses Not on filedocumented in this encounter Additional Health Concerns Assessment Noted Time PHQ-9 Depression Total Score: 4 02/28/19 25 9:06 AM EST documented as of this encounter Care Teams Supervisor Grove Relationship Specialty Start Date End Date Liset Mitchell MD [address] [place] [phone] PCP - General Family Medicine 09/14/20 documented as of this encounter
--- OUTSIDE RECORDS SUMMARY | 2024-03-31 07:55 | XMS_ITS | Encounter Summary ---
Author Organization [employer] Address [address] [facility] [address] [place] [address] Care Team Providers Care Agency Appointments Supervisor Name Role Phone Liset Mitchell MD Primary Care Provider [phone] Reason for Visit * Reason Comments Med Change Request Encounter Details Date Type Department Care Team ([facility] Contact Info) Description 10/02/2022 Refill [facility] [address] [place] [address] Carla Cheng MD [address] [place] [address] Social History Tobacco Use Types Packs/Day Years [...] documented as of this encounter Care Teams Agency Appointments Supervisor Relationship Specialty Start Date End Date Liset Mitchell MD [address] [place] [address] PCP - General Family Medicine 09/14/20 documented as of this encounter
[2024-03-31 08:00] VITALS: BP 119/65; PULSE 97; O2SAT 100; BMI 34.3
== END 2024-03-31 08:24 | disposition home or self-care (01) ==
PROVIDERS: PCP Family Medicine; Visit Provider Internal Medicine Gastroenterology
DX: K59.09 Other constipation (principal); Z12.11 Encounter for screening for malignant neoplasm of colon; N81.4 Uterovaginal prolapse, unspecified; R13.10 Dysphagia, unspecified
CPT/HCPCS: 99499

== ENCOUNTER → 2024-03-31 08:38 | Outpatient (BNV) | payer OTHER, SELFPAY | PROVIDERS: PCP Family Medicine; Visit Provider Internal Medicine | DX: I25.5 Ischemic cardiomyopathy (principal) | CPT/HCPCS: 93306 ==

== ENCOUNTER 2024-04-10 09:38 | Outpatient (AMB) | payer OTHER, SELFPAY ==
[2024-04-10 09:41] VITALS: BP 126/62; PULSE 96; BMI 32.5
--- NOTE | 2024-04-10 09:41 | MHC.OFFVIS ---
Vital Signs 04/10/24 09:41 Height 4 ft 8 in Weight 145 lb 1.027 oz BMI 32.5 BP 126/62 Blood Pressure Location Lt brachial Position Sitting Pulse 96 Pulse Source Pulse Oximeter Intake Visit Reasons: 6 month f/u Manager Assessment Required: Yes Manager Assessment Services: Manager Assessment Present Manager Assessment Name: Yordy [phone] Accompanied by: Other Relationship Allergies fluticasone [Flovent HFA] Allergy (Unknown, Verified 03/31/24 07:57) lip swelling lisinopril Allergy (Verified 03/31/24 07:57) Itching umeclidinium [From Incruse Ellipta] Adverse Reaction (Intermediate, Verified 03/31/24 07:57) Chest Pain empagliflozin [Jardiance] Adverse Reaction (Unknown, Verified 03/31/24 07:57) vaginal itch metformin Adverse Reaction (Unknown, Verified 03/31/24 07:57) stomach pain sitagliptin [Januvia] Adverse Reaction (Unknown, Verified 03/31/24 07:57) stomach pain acetaminophen [From Percocet] Adverse Reaction (Verified 03/31/24 07:57) Nausea and Vomiting hydrocodone [From Vicodin] Adverse Reaction (Verified 03/31/24 07:57) Nausea and Vomiting ibuprofen [From Motrin] Adverse Reaction (Verified 03/31/24 07:57) Stomach Upset oxycodone [From Percocet] Adverse Reaction (Verified 03/31/24 07:57) Nausea and Vomiting Medication List - Last Reconciled 04/10/24 by Jm Spencer MD acetaminophen 500 mg PO Q6H PRN albuterol sulfate 90 mcg/actuation (Ventolin HFA) 2 puffs PO Q4H PRN 30 days alirocumab (Praluent Pen) 75 mg subcut Q2W amlodipine 5 mg PO DAILY bisacodyl (Fleet Bisacodyl) 10 mg (30 mL) [place] DAILY PRN 30 days bisacodyl (Dulcolax (bisacodyl)) 10 mg (2 x 5 mg) PO BEDTIME 2 days blood sugar diagnostic (Microbix Biosystemsuch Verio test strips) As directed blood-glucose meter (the grafterTouch Verio Meter) As directed budesonide 32 mcg/actuation 2 sprays intranasal DAILY 30 days budesonide 0.5 mg (2 mL) inhalation BID 30 days fluticasone propion-salmeterol 115-21 mcg/actuation (Advair HFA) 2 puffs PO Q12H inhalational spacing device (Aerochamber MV spacer) As directed insulin glargine (Lantus Solostar U-100 Insulin) 20 units subcut DAILY ipratropium bromide intranasal ipratropium-albuterol 0.5 mg-3 mg(2.5 mg base)/3 mL 3 mL inhalation Q6H PRN lancets (OneTouch UltraSoft Lancets) As directed latanoprost 0.005% 1 drp ophthalmic (eye) BEDTIME lubiprostone (Amitiza) 8 mcg PO BID 30 days pen needle, diabetic As directed pioglitazone 45 mg PO DAILY sennosides-docusate sodium 8.6-50 mg (Senna with Docusate Sodium) 2 tab-caps (2 x 8.6-50 mg) PO BEDTIME PRN 60 days sertraline 50 mg PO DAILY simethicone (Gas Relief Extra Strength) 0 mg PO spironolactone 25 mg PO DAILY HPI Comments Details: Natali returns for follow-up regarding coronary disease. She used to follow-up here, but then switched to [facility] and then moved back to us. Cardiac data reviewed. Apparently, she was admitted with NSTEMI to [facility] and then had cardiac catheterization and that showed multivessel coronary disease. Subsequently, she was seen by cardiac surgery for CABG but declined. Then it seems that she underwent PCI of RCA followed by staged PCI of LAD/OM. After that, switched here. Overall, no specific cardiac concerns. She was not taking aspirin because of gastritis and we put on Plavix. With regard to statins, again muscle pains and we gave her Repatha. She states she had some other side effects and stopped that as well. Otherwise, feels okay. [facility] Medical History Dysphagia Tracheobronchomalacia ROXIE (obstructive sleep apnea) Essential hypertension Atherosclerotic cardiovascular disease Urinary incontinence Obese Dyslipidemia Anxiety and depression Gastric pain Sinusitis Chronic allergic rhinitis Asthma Cough Cough Diabetes mellitus Fibromyalgia Pulmonary nodules Surgical History H/O heart artery stent Hx of esophagogastroduodenoscopy History of bronchoscopy Hx of colonoscopy H/O left knee surgery H/O breast biopsy H/O: hysterectomy Family History Father Hypertension Mother Hypertension Diabetes Daughter Diabetes Brother No problems noted. Social History Household Members: Children Unable to assess alcohol history related to: Unknown Alcohol intake: former Patient Tobacco Use Status: Never used Tobacco Second Hand Smoke Exposure: Yes Review of Systems Const Denies chills, Denies fatigue, Denies fever(s), Denies weight gain and Denies weight loss ENT Denies dizziness Card Denies chest pain, Denies leg edema, Denies lightheadedness, Denies palpitations, Reports dyspnea on exertion, Denies orthopnea and Denies other Resp Denies cough and Reports dyspnea on exertion GI Denies hematochezia and Denies change in stool character Musc Denies abnormal gait, Denies muscle weakness, Denies numbness, Denies radiating pain into limb and Denies tingling Neuro Denies abnormal gait, Denies dizziness, Denies numbness and Denies tingling Endo Denies fatigue and Denies palpitations Physical Exam Vital Signs: Last Vital Signs Pulse 96 04/10/24 09:41 BP 126/62 04/10/24 09:41 BMI result Body Mass Index 32.5 Const General: comfortable and no acute distress Orientation/consciousness: patient oriented x3 HEENT Other: Unremarkable Head: Yes normal to inspection Neck Neck: Yes normal visual inspection Chest Chest palpation & inspection: normal inspection of the chest Resp Auscultation: clear to auscultation bilaterally Cardio Palpation: normal PMI Heart sounds: S1 normal heart sound present, S2 normal heart sound present, no gallops, no murmurs and no rubs GI Palpation (GI): Soft to palpation Back/Spine/Pelvis Other: unremarkable Skin General skin exam: no rashes or lesions noted Neuro General: patient oriented x3 Extrem General: Yes normal to inspection Psych Mental Status: mental status grossly normal Assessment & Plan Assessment & Plan (1) Atherosclerotic cardiovascular disease: Code(s): I25.10 - Atherosclerotic heart disease of [place] coronary artery without angina pectoris Category: Medical (2) Ischemic cardiomyopathy: Code(s): I25.5 - Ischemic cardiomyopathy Category: Medical (3) Other and unspecified hyperlipidemia: Code(s): E78.5 - Hyperlipidemia, unspecified Category: Medical Plan Status post PCI to RCA/LAD/OM2 from June 2022. Echocardiogram, 06/2022 from [facility] with LVEF of 40-45% with inferior basal, inferior septal hypokinesis; [id number] mitral regurgitation. In the most recent echocardiogram from 03/2024, LVEF is 45%. Basal inferior/inferoseptal hypokinesis. Otherwise unremarkable. Overall, stable coronary artery disease with mild ischemic cardiomyopathy, but no active symptoms. Because of aspirin intolerance, on Plavix. Has dyslipidemia but not able to take statins from muscle pains. Gave Repatha and she has some other side effects but highly doubt if it is related to the medication. Anyway, she wants to try something else and hence sending script for Praluent. Lipids in a few months. Orders: Orders Lipid Panel 3 Months E78.5 - Hyperlipidemia, unspecified Cardiac Rehab Today Z95.5 - Presence of coronary angioplasty implant and graft Medications: New alirocumab (Praluent Pen) inject into abdomen, thigh, or upper arm (deltoid muscle); rotate sites 75 mg subcut Q2W 2 mL 5RF E78.5 - Hyperlipidemia, unspecified Coding Level of Care Code Est Pt Level 4 (48398) Complex EM visit Add On G2211 Diagnoses Atherosclerotic cardiovascular disease I25.10 Ischemic cardiomyopathy I25.5 Other and unspecified hyperlipidemia E78.5
--- OUTSIDE RECORDS SUMMARY | 2024-04-10 10:09 | XMS_ITS | Encounter Summary ---
Author Organization [employer] Address [address] [place] [address] Care Team Providers Care Lsat Instructor Name Role Phone Liset Mitchell MD Primary Care Provider [phone] Encounter Details Date Type Department Care Team ([facility] Contact Info) Description 01/30/2024 Orders Only [facility] [address], [place] [id number] Provider, MD Anne Marie Social History Tobacco [...] documented as of this encounter Care Teams Lsat Instructor Relationship Specialty Start Date End Date Liset Mitchell MD [address] [place] [address] PCP - General Family Medicine 09/14/20 documented as of this encounter
--- OUTSIDE RECORDS SUMMARY | 2024-04-10 10:09 | XMS_ITS | Encounter Summary ---
Author Organization [employer] Address [address] [facility] [address] [place] [address] Care Team Providers Care Molecular Geneticist Name Role Phone Liset Mitchell MD Primary Care Provider Reason for Visit * Reason Onset Date Comments Appointment Request 03/13/2024 Encounter Details Date Type Department Care Team ([facility] st Contact Info) Description 03/13/2024 Telephone [facility] [address] [place] [address] Liset Mitchell MD [address] [place], [place] [phone] Appointment Request Social History Tobacco Use Types [...] EST Per chart review pt seen at [facility] ED today 03/13/24 for blood in stool and constiaption. No GI bleed,UTI or other concerns. Call returned to Natali Santos for triage below. No answer LVM to return call to [facility] triage line [phone]. * Telephone Encounter - Jesus Wilks - 03/13/2024 1:45 PM EST Tc from pt requesting call back to reschedule same day visit. Please contact pt at [phone]. (Hungarian Speaker) documented in this encounter Plan of Treatment Not on file documented as of this encounter Visit Diagnoses Not on filedocumented in this encounter Additional Health Concerns Assessment Noted Time PHQ-9 Depression Total Score: 4 02/28/19 25 9:06 AM EST documented as of this encounter Care Teams Molecular Geneticist Relationship Specialty Start Date End Date Liset Mitchell MD [address] [place] [phone] PCP - General Family Medicine 09/14/20 documented as of this encounter
--- OUTSIDE RECORDS SUMMARY | 2024-04-10 10:09 | XMS_ITS | Clinical Summary ---
Author Organization [employer] Address 75 [facility] 7t [place] [address] Care Team Providers Care Caustic Mixer Name Role Phone Liset Mitchell MD Primary Care Provider [phone] Allergies Active Allergy Reactions Criticality Noted Date [...] 11 10/26/19 23 Active Continuous Blood Gluc Supervisor Shop (FreeStyle Aristides reader) deviceIndication s:Type 2 diabetes [...] mL 11 05/25/19 24 Active nystatin (Mycostatin) [id number] UNIT/ML suspension TAKE 1ML BY MOUTH 4 [...] if negative side effects begin. F/u with Tax Audit Manager for review of heart medication. 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 Assessment [...] Type Department Care Team Description 03/13/2024 Telephone [facility] [address] [place] [phone] Liset Mitchell MD Appointment Request 03/13/2024 Orders Only GENERIC EXTERNAL DATA DEPARTMENT Provider, Generic External Data 03/13/2024 Telephone [facility] [address] [place] [phone] Liset Mitchell MD Nurse Triage 02/29/2024 10:00 AM EST Telemedicine [facility] [address] [place], [place] [phone] Liset Mitchell MD Primary hypertension (Primary Dx); Hyperlipidemia LDL goal <100 02/29/2024 Travel 02/25/2024 2:40 PM EST Office Visit [facility] [address] [place] [address] [phone] Sera Clark MD Primary hypertension (Primary Dx); Congestion of paranasal sinus 02/25/2024 Telephone [facility] [address] [place] [phone] Liset Mitchell MD Nurse Triage 02/05/2024 Orders Only [facility] [address] [place] [address] Anne Marie Schwartz MD 01/30/2024 Orders Only [facility] [address] [place] [phone] Anne Marie Schwartz MD 01/30/2024 Telephone [facility] [address] [place] [phone] Liset Mitchell MD Medication Question 01/29/2024 1:40 PM EST Office Visit [facility] [address] [place], [place] [phone] Leslye Stanton MD Benign hypertension (Primary Dx); Constipation, unspecified constipation type 01/29/2024 Travel 01/29/2024 Telephone [facility] [address] [place], [place] [phone] Liset Mithcell MD ER Follow-up 01/28/2024 Orders Only GENERIC EXTERNAL DATA DEPARTMENT Provider, Generic External Data 01/28/2024 Telephone [facility] [address] [place] [phone] Liset Mitchell MD Nurse Triage 01/28/2024 Telephone [facility] [address] [place], [place] [phone] Liset Mitchell MD Nurse Triage 01/23/2024 Orders Only GENERIC EXTERNAL DATA DEPARTMENT Provider, Generic External Data 01/21/2024 Refill [facility] [address] [place] [phone] Liset Mitchell MD Anxiety; Hypertension, unspecified type 01/15/[address] [address] Liset Mitchell MD c/b requested from Last [...] microalbuminuria, with long-term current use of insulin ([facility]) from Last 3 Months or Most Recently Relevant to Health Maintenance Results * OBSX1 (03/13/2024 1:30 PM EST) Pathologist [facility] OBS1 NEGATIVE NEGATIVE [facility] 03/13/2024 1:30 PM EST 03/13/2024 1:33 PM EST us Generic External Data Provider LAB BLOOD ORDERAB LES Final Result [facility] [address] [place] [phone] * CBC auto differential (03/13/2024 12:34 PM EST) Only the most recent of2 resultswithin the time period is included. [facility] White Blood Count 6.9 4.8 - 10.8 X10*3/uL [facility] Red Blood Count 4.46 4.20 - 5.50 X10*6/uL [facility] Hemoglobin 13.8 12.0 - 16.0 g/dl [facility] Hematocrit 39.9 37.0 - 47.0 % [facility] Mean Corpuscular Volume 89.5 80.0 - 98.0 fL [facility] Mean Corpuscular Hemoglobin 30.9 27.0 - 33.0 pg [facility] Mean Corpuscular HGB Conc 34.6 31.0 - 35.0 g/dl [facility] Red Cell Distribution Width 12.8 11.0 - 16.0 % [facility] Platelet Count 200 160 - 400 X10*3/uL [facility] Mean Platelet Volume 10.6 9.4 - 12.3 fL [facility] Neutrophils Percent Auto 69.2 45 - 73 % [facility] Imm Gran Pct Auto 0.4 0.0 - 0.4 % [facility] Lymphocytes Percent Auto 22.4 20 - 40 % [facility] Monocytes Percent Auto 6.4 2 - 11 % [facility] Eosinophils Percent Auto 0.9 0 - 4 % [facility] Basophils Percent Auto 0.7 0 - 2 % [facility] NRBC Pct Auto 0.0 0.0 - 0.2 /100WBC [facility] Neutrophils Absolute Auto 4.7 2.0 - 8.3 x10*3/uL [facility] Imm Gran Abs Auto 0.03 0.00 - 0.03 X10*3/uL [facility] Lymphocytes Absolute Auto 1.5 1.2 - 4.9 X10*3/uL [facility] Monocytes Absolute Auto 0.4 0.1 - 1.2 X10*3/uL [facility] Eosinophils Absolute Auto 0.1 0.0 - 0.4 X10*3/uL [facility] Basophils Absolute Auto 0.1 0.0 - 0.2 X10*3/uL [facility] NRBC Abs Auto 0.000 0.0 - 0.012 X10*3/uL [facility] 03/13/2024 12:3 4 PM EST 03/13/2024 12:38 PM EST Generic External Data Provider LAB BLOOD ORDERAB LES Final Result Performing Organization Address [facility]/ZIP Co de Phone Number [facility] [address] [place] [phone] * Urinalysis w/reflex microscopic (03/13/2024 12:34 PM EST) Color Urine Yellow [facility] Appearance Urine Clear [facility] PH 6.0 5.0 - 9.0 [facility] Glucose Urine UA Negative Negative mg/dL [facility] Urine Blood Negative Negative [facility] Specific [place] - Urine <=1.005 1.005 - 1.025 [facility] Urine Protein Negative Neg-Trace mg/dL [facility] Urine Ketones Negative Negative mg/dL [facility] Nitrite Urine Negative Negative [facility] Leukocyte Esterase Urine Negative Negative [facility] 03/13/2024 12:3 4 PM EST 03/13/2024 12:38 PM EST Narrative [facility] - 03/13/2024 12:42 PM EST [id number], Clean Catch us Generic External Data Provider LAB URINE ORDERAB LES Final Result Performing Organization Address [facility]/ZIP Co de Phone Number [facility] [address] [place] [phone] * Prothrombin Time-INR (03/13/2024 12:34 PM EST) Prothrombin Time 11.2 10.9 - 12.4 SEC [facility] INTERNATIONAL NORM RATIO 1.0 0.9 - 1.1 [facility] Comment:INTERNATIONAL NORMAL IZED RATIO (INR) [...] Provider LAB BLOOD ORDERAB LES Final Result [facility] [address] [place] [phone] * (ABNORMAL) Comprehensive Metabolic Panel (03/13/2024 12:34 PM EST) Sodium 142 135 - 145 mmol/L [facility] Potassium 4.7 3.3 - 5.1 mmol/L [facility] Chloride 111(H) 96 - 108 mmol/L [facility] Carbon Dioxide 27 22 - 29 mmol/L [facility] Anion Gap 9(L) 12 - 20 [facility] Urea Nitrogen (BUN) 21(H) 9 - 16 mg/dL [facility] Creatinine, Serum 0.77 0.5 - 1.4 mg/dL [facility] Creatinine Clr Calc Pharmacy 46.0 [facility] Comment:Provided height and weight: 142.24 cm,66.5 kg.eGFR (calculated from the MDRD study equation) and eCrCl(calculated from the Cockcroft-Gault equation) are based ondifferent parameters and may not yield comparable results.If eCrCl result is absurd, please check patient'sheight/weight. Estimated Glomerular Filt Rate >60 [facility] Comment:Chronic Kidney Disea se: Estimated GFR < 60 mL/min/1.75a0Myzbgp Kidney Disease: Estimated GFR < 15 mL/min/1.73m2 Glucose 110 60 - 115 mg/dL [facility] Calcium 9.4 8.4 - 10.2 mg/dL [facility] Bilirubin, Total 0.3 0.0 - 1.0 mg/dL [facility] Aspartate Amino Transferase 27 5 - 31 U/L [facility] Alanine Aminotransferase 26 0 - 31 U/L [facility] Total Protein 7.3 6.5 - 8.0 g/dL [facility] Albumin Level 4.0 3.5 - 5.0 g/dL [facility] Alkaline Phosphatase 54 39 - 117 U/L [facility] 03/13/2024 12:3 4 PM EST 03/13/2024 12:38 PM EST us Generic External Data Provider LAB BLOOD ORDERAB LES Final Result Performing Organization Address [facility] Co de Phone Number [facility] [address] [place] [phone] * POCT Rapid Influenza B VILLARREAL ID NOW (02/25/2024 2:30 PM EST) Influenza B Negative Negative, Indeterminate [facility] Swab 02/25/2024 2:30 PM EST us Sera Clark MD POINT OF CARE TEST ENTER/ED IT ORDERABLES Final Result Performing Organization Address [facility] de Phone Number [facility] [address] [place] [phone] * POCT Rapid Influenza A VILLARREAL ID NOW (02/25/2024 2:30 PM EST) Influenza A Negative Negative, Indeterminate [facility] Swab 02/25/2024 2:30 PM EST us Sera Clark MD POINT OF CARE TEST ENTER/ED IT ORDERABLES Final Result Performing Organization Address [facility] Co de Phone Number [facility] [address] [place] [phone] * (ABNORMAL) POCT Rapid Covid-19 VILLARREAL ID NOW (02/25/2024 1:52 PM EST) Swab 02/25/2024 1:52 PM EST Sera Clark MD POINT OF CARE TEST ENTER/ED IT ORDERABLES Final Result * High Sensitivity Troponin I (01/28/2024 6:42 PM EST) Only the most recent of3 resultswithin the time period is included. Pathologist [facility] TROPONIN I HIGH SENSITIVITY 10.3 <3.5 - 17.0 ng/L [facility] Comment:The Villarreal high sens itivity Troponin-I results should beused in conjunction with other diagnostic information suchas ECG, clinical observations and information, and patientsymptoms to aid in the diagnosis of IA. 01/28/2024 6:42 PM EST 01/28/2024 6:47 PM EST us Generic External Data Provider LAB BLOOD ORDERAB LES Final Result Performing Organization Address [facility]/ZIP Co de Phone Number [facility] [address] [place] [phone] * B Type Natriuretic Peptide (BNP) (01/28/2024 4:46 PM EST) Pathologist [facility] B Type Natriuretic Peptide 20 <100 pg/mL [facility] Comment:For those patients w ho are being treated with Natrecor(nesiritide, recombinant BNP), BNP testing should beperformed at least two hours post treatment in order toensure that only endogenous levels of BNP are detected. 01/28/2024 4:46 PM EST 01/28/2024 4:48 PM EST us Generic External Data Provider LAB BLOOD ORDERAB LES Final Result Performing Organization Address [facility]/ZIP Co de Phone Number [facility] [address] [place] [phone] * Hepatic Function Panel (01/28/2024 4:46 PM EST) Bilirubin, Total 0.3 0.0 - 1.0 mg/dL [facility] Bilirubin, Direct 0.1 0.0 - 0.5 mg/dL [facility] Aspartate Amino Transferase 29 5 - 31 U/L [facility] Alanine Aminotransferase 31 0 - 31 U/L [facility] Total Protein 7.2 6.5 - 8.0 g/dL [facility] Albumin Level 4.1 3.5 - 5.0 g/dL [facility] Alkaline Phosphatase 56 39 - 117 U/L [facility] 01/28/2024 4:46 PM EST 01/28/2024 4:48 PM EST us Generic External Data Provider LAB BLOOD ORDERAB LES Final Result [facility] [address] [place] [phone] * (ABNORMAL) Basic Metabolic Panel (01/28/2024 4:46 PM EST) Pathologist [facility] Sodium 139 135 - 145 mmol/L [facility] Potassium 4.3 3.3 - 5.1 mmol/L [facility] Chloride 107 96 - 108 mmol/L [facility] Carbon Dioxide 26 22 - 29 mmol/L [facility] Anion Gap 10(L) 12 - 20 [facility] Urea Nitrogen (BUN) 23(H) 9 - 16 mg/dL [facility] Creatinine, Serum 0.88 0.5 - 1.4 mg/dL [facility] Creatinine Clr Calc Pharmacy 44.0 [facility] Comment:Provided height and weight: 149.86 cm,67.7 kg.eGFR (calculated from the MDRD study equation) and eCrCl(calculated from the Cockcroft-Gault equation) are based ondifferent parameters and may not yield comparable results.If eCrCl result is absurd, please check patient'sheight/weight. Estimated Glomerular Filt Rate >60 [facility] Comment:Chronic Kidney Disea se: Estimated GFR < 60 mL/min/1.74v9Ldmlzj Kidney Disease: Estimated GFR < 15 mL/min/1.73m2 Glucose 150(H) 60 - 115 mg/dL [facility] Calcium 9.8 8.4 - 10.2 mg/dL [facility] 01/28/2024 4:46 PM EST 01/28/2024 4:48 PM EST us Generic External Data Provider LAB BLOOD ORDERAB LES Final Result [facility] [address] [place] [phone] * ECG 12 lead (01/26/2024 4:05 PM EST) Historical Provider MD ECG ORDERABLES Final Res ult * XR CHEST PA AND LATERAL (01/26/2024 3:41 PM EST) Anatomical Region Laterality Modality Radiographic Nelly ging Historical Provider IMG XR PROCEDURES Final R esult * (ABNORMAL) Lipid Panel, Standard (10/10/2023 2:01 PM EDT) Triglycerides 158(H) <150 mg/dL [facility] Comment:Desirable Triglyceri de: less than 150 mg/dLBorderline High Triglyceride 150-199 mg/dLHigh Triglyceride: 200-499 mg/dLVery High Triglyceride: greater than or equal to 5OO mg/dL Cholesterol 233(H) <200 mg/dL [facility] Comment:Desirable Cholestero l: less than 200 mg/dLBorderline High Cholesterol: 200-239 mg/dLHigh Cholesterol: greater than 239 mg/dL LDL Cholesterol Calculated 148(H) <100 mg/dL [facility] Comment:Desirable LDL: less than 100 mg/dLNear Optimal/Above Optimal LDL: 110- 129 mg/dLBorderline High LDL: 130-159 mg/dLHigh LDL: 160-189 mg/dLVery High LDL: greater than or equal to 190 mg/dL HDL Cholesterol 54 >40 mg/dL [facility] Comment:Desirable HDL: great er than 40 mg/dL Note: This HDL assay may give artificially low results in patients with liver disease. 10/10/2023 2:01 PM EDT 10/10/2023 2:01 PM EDT us Generic External Data Provider LAB BLOOD ORDERAB LES Final Result [facility] [address] [place] [phone] * (ABNORMAL) POCT HGB A1C (08/03/2023 10:59 AM EDT) Hemoglobin A1C 7.0(A) 4.0 - 6.0 % QC Media Lot # [id number] Lot# Expiration Date [id number] Blood 08/03/2023 10:5 9 AM EDT us Liset Mitchell MD POINT OF CARE TEST ENTER/EDIT ORDERABLES Final Result from Last 3 Months or Most Recently Relevant to Health Maintenance Insurance [id number] [id number] [facility] Care Teams Caustic Mixer Relationship Specialty Start Date End Date Liset Mitchell MD [address] [place] [phone] PCP - General Family Medicine 09/14/20
--- OUTSIDE RECORDS SUMMARY | 2024-04-10 10:09 | XMS_ITS | Encounter Summary ---
Author Organization [employer] Address 75 [facility] [address] [place] [address] Care Team Providers Care Garland Machine Operator Name Role Phone Liset Mitchell MD Primary Care Provider [phone] Reason for Visit * Reason Onset Date Comments Prior Authorization 05/24/2022 Encounter Details Date Type Department Care Team ([facility] st Contact Info) Description 05/24/2022 Telephone [facility] [address] [place] [address] Liset Mitchell MD [address] [place] [address] Prior Authorization Social History Tobacco Use Types [...] documented as of this encounter Care Teams Garland Machine Operator Relationship Specialty Start Date End Date Liset Mitchell MD [address] [place] [address] PCP - General Family Medicine 09/14/20 documented as of this encounter
--- OUTSIDE RECORDS SUMMARY | 2024-04-10 10:09 | XMS_ITS | Continuity of Care Document ---
Author Organization [employer] Address [address] [place] [address] Care Team Providers Care Sapphire Stylus Grinder Name Role Phone HIM CCA OTHER [facility] Primary Care Provider Assessment Encounter Date Assessment [...] Assessment and Plan as documented by the Velocity Shooter. We discussed the diagnostic uncertainty of home [...] Lab BMP, serum or plasma [address], [address] [place] [address], [phone], 21:24:08 rapid SARS CoV 2 Ag, QL IA, respiratory specimen [address], [address] [place] [address], [phone], 21:24:08 rapid flu (A+B) [address], [address] [place] [address], [phone], 5 21:24:08 Referral None recorded. Procedures None recorded. Surgeries None recorded. Imaging None recorded. Medication Orders ondansetron HCl (PF) 4 mg/2 mL injection solution [address]/Pharmacy #[id number], [address] [place], [address], 21:24:08 sodium chloride 0.9 % intravenous solution [address]/Pharmacy #[id number], [address] [place], [address], 21:24:08 ondansetron 4 mg disintegrat ing tablet 2024 025 [facility]/Pharmacy #[id number], [address] [place], [address], 5 21:24:10 Patient TargetsNo targets recorded. Patient InstructionsNo instructions recorded. Reason for Referral None Reported. Results Created Date Observation Date Name Description Value Unit Range Abnormal Flag Note LastModifiedBy Organization Detail LastModifiedTime 03/26/19 25 03/26/2024 rapid SARS CoV 2 Ag, QL IA, respi rator y speci men rapid SARS CoV 2 Ag, QL IA, respiratory specimen negati ve Not Available [facility] ed [address] [place] [address], [place], [address], 03/26/2024 20:33:01 03/26/19 25 03/26/2024 rapid flu (A+B) Flu negati ve Not Available [facility] ed [address] [place] [address], [phone], 03/26/2024 20:33:02 Result Notes None recorded. Medical Equipment None Reported. Allergies Allergen ID Allergen Name Allergen Category Reaction Reaction Severity Criticality Documentation Date Start Date Code Code System Note Provider Name and Address Organization Details Recorded Time 29104 metoprolo l Not available Not available Not available Not available 01/30/2024 6918 RxNorm Not Available [facility] - production 17:06:26 6413 ezetimibe medicatio n Not available Not available Not available 11/29/2023 56965 8 RxNorm Not Available [facility] - production 13:58:51 6414 fluticaso ne Not available Not available Not available Not available 11/29/2023 56607 RxNorm Not Available [facility] - production 13:58:51 6415 hydrocodo ne Not available Not available Not available Not available 11/29/2023 5489 RxNorm Not Available [facility] - production 17:06:26 6416 umeclidin ium medicatio n chest pain Not available Not available 11/29/2023 06896 14 RxNorm Giorgio Pathak MD [address] [place] [address],[address], [place], [phone], [facility] 16:24:27 6417 lisinopri l medicatio n Not available Not available Not available 11/29/2023 03018 RxNorm Not Available [facility] production 13:58:51 Medications Name Sig Start Date Stop Date Status Note LastModified by Organization Details LastModified Time humidifier vicks cool mist USE DIRECTED EVERY DAY active Not Available Not Available No t Available cyclobenzapr ine 10 mg tablet 10 MG [...] Available Not Available No t Available amlodipine 5 mg tablet TAKE 1 TABLET BY MOUTH [...] Available ondansetron 4 mg disintegrati ng tablet PLEASE SEE ATTACHED FOR DETAILED DIRECTIONS active Not Available Not Available N ot Available cefdinir 300 mg capsule TAKE 1 TWICE [...] Not Available Not Available No t Available Laxative (bisacodyl) 5 mg tablet,delay ed release TAKE 2 TABLETS ORALLY BEDTIME FOR 2 DAYS active Not Available Not Available No [...] Ultra-Fine Mini Pen Needle 31 gauge x 3/16 USE DIRECTED active Not Available Not Available [...] Not Available Not Available No t Available lubiprostone 8 mcg capsule TAKE 1 CAPSULE BY MOUTH TWICE A DAY active Not [...] Ultra-Fine Micro Pen Needle 32 gauge x /4 USE INSTRUCTED active Not Available Not Available N ot Available Nasal Wash packet with sinus rinse device USE NASAL IRRIGATION DAILY FOR SINUS PRESSURE/SI NUSITIS NEEDED. NC active Not Available Not Available N ot Available BD Geetha 2nd Gen Pen Needle 32 gauge x USE 1 EACH EVERY MORNING active Not Available Not Available No t Available Metamucil (with sugar) 3 gram/7 gram oral powder DISSOLVE 1 ROUNDED TEASPOON (3 GRAMS) IN 8 OUNCES WATER AND DRINK ONCE DAILY active Not Available Not Available No t Available Paxlovid 150 mg-100 mg tablets in a dose pack (Renal Dose) active Not Available Not Available Not Available Dexcom G7 Technical Mgr USE DIRECTED active Not Available Not Available [...] /min 18 /min 97 % 97 % 68063.0 64 g 98.4 [degF] 153 mm[Hg] 67 [...] SNOMED-CT Code Diagnosis ICD10 Code Diagnosis Note [id number] RACHNA GUO MD Main - [facility] [address] [place] [address] 03/26/2024 20:30:34 03/26/2024 23:58:55 Nausea and vomiting 83102255 R11.2 Health Concerns Section Related Observation LastModified by Organization Detai ls LastModified Time None Recorded Concern Status LastModified by Organization Details LastModified Time None Recorded Payers Encounter Date Sequence Insurance Name Policy Number Policy Valdovinos Covered Member ID Valdovinos Member ID Guarantor Name 03/26/2024 1 [facility] - DOS ON OR AFTER 2022 - DUAL ELIGIBLE - [employer] OPTIONS AND ONE CARE (MEDICARE REPLACEMENT/AD VANTAGE - HMO) Natali Cortes [id number] Natali Cortes Notes Date Note Type Note Provider Name and Address Organization Details Recorded Time 03/26/2024 text/html CRC Nurse Triage Notes (Linda Stanton - NELSON): Reason For Request: N/V, abdominal pain Chief Complaints: Vomiting, Abdominal pain PMH: COPD/Asthma, Hypertension, Diabetes Mellitus Type 2, Hyperlipidemia, Allergic Rhinitis PMH Reviewed at 03/26/2024 - 18:41 Allergies Reviewed at 03/26/2024 - 18:41 Comments: Member is c/o Stomachache and vomiting [...] allergies. Educated about response time. Dashawn DAMON Velocity Shooter Organization Information for [facility] Legal Name: [employer]grano.? Address: [address] [place] [address], Tire Vulcanizer: Miguel Brown MD CLIA No.: [id number] Velocity Shooter POC Test Results from [facility] iSTAT [...] .................. .................. .................. .................. .................. .................. ............... Velocity Shooter Note From Gila Rosario: Sent to a [...] blood draw performed; Chem8+ results: uploaded to [employer]. [facility] consulted and orders rapid covid/flu test; Zofran 4mg IV and Normal Saline 500ml IV. Covid/flu test: neg; Zofran 4mg IV and Normal Saline 500ml IV administered. Pt reports nausea resolved. [facility] sends script to pt's pharmacy. IV removed. Red flags discussed. Pt has no further questions. .................. .................. .................. .................. .................. .................. .................. ............... [facility] Consulted: Rachna Guo .................. .................. .................. .................. .................. .................. .................. ............... Disposition: Fulfilled RACHNA GUO MD [address] [place] [address],[address] [facility], [place], [address], [employer] 03/26/2024 22:16:21 OBGyn Episode No OBEpisode recorded.
--- OUTSIDE RECORDS SUMMARY | 2024-04-10 10:09 | XMS_ITS | Encounter Summary ---
Author Organization [employer] Address [address] [place] [address] Care Team Providers Care Soil Science Teacher Name Role Phone Liset Mitchell MD Primary Care Provider [phone] Reason for Visit * Reason Onset Date Comments Nurse Triage 03/13/2024 Encounter Details Date Type Department Care Team ([facility] st Contact Info) Description 03/13/2024 Telephone [facility] MEDICINE [address] [place] [address] Liset Mitchell MD [address], [place] [phone] Nurse Triage Social History Tobacco Use Types [...] PCP today for examNatali Santos agrees to [facility] appt for BP check and eval of congestion. Reviewed home care advise, ERprecautions and reasons to call back. Protocol Used: Blood Pressure - High (Adult) Protocol-Based Disposition: See in Office or Video Visit within 2 Weeks Future Appointments Date Time Provider Department Center 03/13/2024 2:20 PM [facility] Insurance verified as active per Real Time Eligibility in [facility]. Video visit offer not recorded Positive Triage [...] No answer LVM to return call to [facility] triage line [phone]. * Telephone Encounter - Mali Tyler - 03/13/2024 8:41 AM EST Symptoms: High Blood Pressure - Caller Reports, Cough, Ear Pressure, Nose bleeding. (Pt states are secondary symptoms from Repatha Sure click 140MG Injection new med.) Outcome: Transfer to a nurse or provider NOW! Reason: Change in vision, Trouble breathing The caller accepted this outcome. [phone] (Setswana) documented in this encounter Plan of Treatment Not on file documented as of this encounter Visit Diagnoses Not on filedocumented in this encounter Additional Health Concerns Assessment Noted Time PHQ-9 Depression Total Score: 4 02/28/19 25 9:06 AM EST documented as of this encounter Care Teams Soil Science Teacher Relationship Specialty Start Date End Date Liset Mitchell MD [address] [place] [phone] PCP - General Family Medicine 09/14/20 documented as of this encounter
--- OUTSIDE RECORDS SUMMARY | 2024-04-10 10:09 | XMS_ITS | Encounter Summary ---
Author Organization [employer] Address [address] [facility] [address] [place] [address] Care Team Providers Care Geochemical Manager Name Role Phone Liset Mitchell MD Primary Care Provider [phone] Reason for Visit * Reason Onset Date Comments ER Follow-up 01/29/2024 Encounter Details Date Type Department Care Team ([facility] Contact Info) Description 01/29/2024 Telephone [facility] & PEDS [address] [place] [address] Liset Mitchell MD [address] [place] [address] ER Follow-up Social History Tobacco Use Types [...] AM EST Triage call to Pt with [facility] [place] [place] [id number]. Pt was seen in [facility] ED 01/28/24 for High BP. (reportis on [...] requesting marianne seen today. ASK apt in [facility] at 140pm today. Pt agrees with [...] ED visit on : Date: 01/28/24 Hospital: [facility] Seen for: High blood pressure Symptomatic No [...] documented as of this encounter Care Teams Geochemical Manager Relationship Specialty Start Date End Date Liset Mitchell MD [address] [place] [address] PCP - General Family Medicine 09/14/20 documented as of this encounter
--- OUTSIDE RECORDS SUMMARY | 2024-04-10 10:09 | XMS_ITS | Encounter Summary ---
Author Organization [employer] Address [address] [facility] [address] [place] [address] Care Team Providers Care Remittance Clerk Name Role Phone Liset Mitchell MD Primary Care Provider [phone] Encounter Details Date Type Department Care Team ([facility] Contact Info) Description 03/13/2024 Orders Only GENERIC [...] (03/13/2024 1:30 PM EST) OBS1 NEGATIVE NEGATIVE [facility] 03/13/2024 1:30 PM EST 03/13/2024 1:33 PM EST us Generic External Data Provider LAB BLOOD ORDERAB LES Final Result [facility] [address] [place] [phone] * (ABNORMAL) Comprehensive Metabolic Panel (03/13/2024 12:34 PM EST) Sodium 142 135 - 145 mmol/L [facility] Potassium 4.7 3.3 - 5.1 mmol/L [facility] Chloride 111(H) 96 - 108 mmol/L [facility] Carbon Dioxide 27 22 - 29 mmol/L [facility] Anion Gap 9(L) 12 - 20 [facility] Urea Nitrogen (BUN) 21(H) 9 - 16 mg/dL [facility] Creatinine, Serum 0.77 0.5 - 1.4 mg/dL [facility] Creatinine Clr Calc Pharmacy 46.0 [facility] Comment:Provided height and weight: 142.24 cm,66.5 kg.eGFR (calculated from the MDRD study equation) and eCrCl(calculated from the Cockcroft-Gault equation) are based ondifferent parameters and may not yield comparable results.If eCrCl result is absurd, please check patient'sheight/weight. Estimated Glomerular Filt Rate >60 [facility] Comment:Chronic Kidney Disea se: Estimated GFR < 60 mL/min/[id number] Kidney Disease: Estimated GFR < 15 mL/min/1.73m2 Glucose 110 60 - 115 mg/dL [facility] Calcium 9.4 8.4 - 10.2 mg/dL [facility] Bilirubin, Total 0.3 0.0 - 1.0 mg/dL [facility] Aspartate Amino Transferase 27 5 - 31 U/L [facility] Alanine Aminotransferase 26 0 - 31 U/L [facility] Total Protein 7.3 6.5 - 8.0 g/dL [facility] Albumin Level 4.0 3.5 - 5.0 g/dL [facility] Alkaline Phosphatase 54 39 - 117 U/L [facility] 03/13/2024 12:3 4 PM EST 03/13/2024 12:38 PM EST us Generic External Data Provider LAB BLOOD ORDERAB LES Final Result [facility] [address] [place] [address] [phone] * Prothrombin Time-INR (03/13/2024 12:34 PM EST) Prothrombin Time 11.2 10.9 - 12.4 SEC [facility] INTERNATIONAL NORM RATIO 1.0 0.9 - 1.1 [facility] Comment:INTERNATIONAL NORMAL IZED RATIO (INR) [...] ORDERAB LES Final Result Performing Organization Address [facility] Co de Phone Number [facility] [address] [place] [phone] * Urinalysis w/reflex microscopic (03/13/2024 12:34 PM EST) Color Urine Yellow [facility] Appearance Urine Clear [facility] PH 6.0 5.0 - 9.0 [facility] Glucose Urine UA Negative Negative mg/dL [facility] Urine Blood Negative Negative [facility] Specific [place] - Urine <=1.005 1.005 - 1.025 [facility] Urine Protein Negative Neg-Trace mg/dL [facility] Urine Ketones Negative Negative mg/dL [facility] Nitrite Urine Negative Negative [facility] Leukocyte Esterase Urine Negative Negative [facility] 03/13/2024 12:3 4 PM EST 03/13/2024 12:38 PM EST Narrative [facility] - 03/13/2024 12:42 PM EST [id number], [employer] us Generic External Data Provider LAB URINE ORDERAB LES Final Result Performing Organization Address City/[facility] Co de Phone Number [facility] [address] [place] [address] [phone] * CBC auto differential (03/13/2024 12:34 PM EST) White Blood Count 6.9 4.8 - 10.8 X10*3/uL [facility] Red Blood Count 4.46 4.20 - 5.50 X10*6/uL [facility] Hemoglobin 13.8 12.0 - 16.0 g/dl [facility] Hematocrit 39.9 37.0 - 47.0 % [facility] Mean Corpuscular Volume 89.5 80.0 - 98.0 fL [facility] Mean Corpuscular Hemoglobin 30.9 27.0 - 33.0 pg [facility] Mean Corpuscular HGB Conc 34.6 31.0 - 35.0 g/dl [facility] Red Cell Distribution Width 12.8 11.0 - 16.0 % [facility] Platelet Count 200 160 - 400 X10*3/uL [facility] Mean Platelet Volume 10.6 9.4 - 12.3 fL [facility] Neutrophils Percent Auto 69.2 45 - 73 % [facility] Imm Gran Pct Auto 0.4 0.0 - 0.4 % [facility] Lymphocytes Percent Auto 22.4 20 - 40 % [facility] Monocytes Percent Auto 6.4 2 - 11 % [facility] Eosinophils Percent Auto 0.9 0 - 4 % [facility] Basophils Percent Auto 0.7 0 - 2 % [facility] NRBC Pct Auto 0.0 0.0 - 0.2 /100WBC [facility] Neutrophils Absolute Auto 4.7 2.0 - 8.3 x10*3/uL [facility] Imm Gran Abs Auto 0.03 0.00 - 0.03 X10*3/uL [facility] Lymphocytes Absolute Auto 1.5 1.2 - 4.9 X10*3/uL [facility] Monocytes Absolute Auto 0.4 0.1 - 1.2 X10*3/uL [facility] Eosinophils Absolute Auto 0.1 0.0 - 0.4 X10*3/uL [facility] Basophils Absolute Auto 0.1 0.0 - 0.2 X10*3/uL [facility] NRBC Abs Auto 0.000 0.0 - 0.012 X10*3/uL [facility] 03/13/2024 12:3 4 PM EST 03/13/2024 12:38 PM EST us Generic External Data Provider LAB BLOOD ORDERAB LES Final Result [facility] [address] [place] [address] [phone] documented in this encounter Visit Diagnoses Not on filedocumented in this encounter Additional Health Concerns Assessment Noted Time PHQ-9 Depression Total Score: 4 02/28/19 25 9:06 AM EST documented as of this encounter Care Teams Remittance Clerk Relationship Specialty Start Date End Date Liset Mitchell MD [address] [place] [phone] PCP - General Family Medicine 09/14/20 documented as of this encounter
--- OUTSIDE RECORDS SUMMARY | 2024-04-10 10:09 | XMS_ITS | Patient Health Record ---
Author Organization [employer] Address [address] [place] [address] Support Name Relationship Address Phone CORINNE HICKMAN Emergency Contact [address] [place] [address] HERMAN NARAYANAN Guarantor Unknown Allergies Allergen (clinical drug ingredient) Drug/Non Drug Allergy documented on EMR Reaction Allergy Type Onset Date Status lisinopril Lisinopril Unknown Drug Allergy Activ e losartan Losartan Unknown Drug Allergy Active Reason For Referral No Information Medications Medication SIG (Take, Route, Fr equency, Duration) Notes Start Date End Date Status Metoprolol Succinate Active Aspirin 81 81 MG 1 tablet Orally Once a day Active Social History Tobacco Use: Social History Observation Description Date Details (start date - stop date) Never Smoker NA - NA Sex Assigned At : Social History Observation Description Sex Assigned At Female Tobacco Use/Smoking Question Answer Notes Tobacco use: nonsmoker Alcohol Screen (Audit-C) Question Answer Notes Did you have a drink containing alcohol in the p ast year? No Points 0 Interpretation Negative Plan Of Treatment Pending Test Test Name Order Date CBC WITH DIFFERENTIAL 10/13/2022 Insurance Providers Payer Name Payer Address Payer Phone Subscriber Number Group Number Insured Name Patient Relationship to Insured Coverage Start Date Coverage End Date MEDICARE PART B [address] [address] [place] [id number] HEMRAN JI Self - patient is the insured 4 Medical (General) History Medical History History ICD Code DIABETES ESTRENIMIENTO Surgical History Surgery Date(Month/Year) CATETERISMO 06/2022 Hospitalization History Reason Date(Month/Year) INFARTO 06/2022
--- OUTSIDE RECORDS SUMMARY | 2024-04-10 10:09 | XMS_ITS | Encounter Summary ---
Author Organization [employer] Address [address] [facility] [address]t [place] [address] Care Team Providers Care Fire Engine Pump Operator Name Role Phone Liset Mitchell MD Primary Care Provider [phone] Reason for Visit * Reason Comments Med Refill Encounter Details Date Type Department Care Team ([facility] st Contact Info) Description 04/13/2022 Refill [facility] MEDICINE [address] [place] [address] Liset Mitchell MD [address] [place] [address] Social History Tobacco Use Types Packs/Day Years [...] documented as of this encounter Care Teams Fire Engine Pump Operator Relationship Specialty Start Date End Date Liset Mitchell MD [address] [place] [address] PCP - General Family Medicine 09/14/20 documented as of this encounter
--- OUTSIDE RECORDS SUMMARY | 2024-04-10 10:09 | XMS_ITS ---
Author Organization [facility] Address [address] [place] [address] Care Team Providers Care Contract Administration Coordinator Name Role Phone SANTANA PRASHANTSABI Unavailable Allergies Allergen (clinical drug ingredient) Drug/Non Drug Allergy documented on EMR Reaction Allergy Type Onset Date Status lisinopril Lisinopril Unknown Drug Allergy Activ e losartan Losartan Unknown Drug Allergy Active Results Component Value Reference Range Notes CBC WITH DIFFERENTIAL (Not y et reviewed by provider) Interpretation: Performing Lab: Notes/Report: Col. Kandace. Med. P.R. ORDER [id number] PERFORMED AT: Pat. No.: [id number] [facility] Paid [address] Exp: 10/26/2022 [place] [address] Num: [id number] DIRECTOR: LCDA. HERMAN RAMIREZ LICENSE.: [id number] CLIA: [id number] WBC 6.5 4-11 x10 RBC 4.46 3.67-5.96 x10 HGB 13.7 10.9-17.4 g/dL HCT 40.8 32.7-50.2 % MCV 91.4 76-97.4 fL MCH 30.7 25.4-33.9 pg MCHC 33.6 31.9-36.2 g/dL RDW 13.7 12.6-15.6 % PLAT 181 150-450 x10 DIFFERENTIAL NEO 66.6 44.8-72.4 % LYMPH 26.2 17.9-43.4 % MONO 5.7 1.7-9.3 % EOSI 1.3 0-5.9 % BASO 0.2 0-0.5 % 1 CNFS REASON FOR VISIT MOLESTIA EN AREA DE ABDOMEN Medications Medication SIG (Take, Route, Fr equency, [...] ast year? No Points 0 Interpretation Negative Vital Signs Blood pressure systolic 119 mm Hg 10/14/19 23 Blood pressure diastolic 71 mm Hg 023 Heart Rate 59 /min 10/13/2022 Respiratory Rate 19 /min 10/13/2022 Temperature 97.3 degrees Fahrenheit 10/14/19 23 Oximetry 97 % 10/13/2022 Weight 148.0 lbs 10/13/2022 Height 57 in 10/13/2022 BMI 32.02 kg/m2 10/13/2022 Weight-kg 67.13 kg 10/13/2022 Height-cm 144.78 cm 10/13/2022 NOTA DE TRIAGE:SE RECIBE PAC IENTE FEMINA AMBULANDO, ALERTA Y ORIENTADA POR 3. CON BUEN PATRON RESPIRATORIO. PACIENTE REFIERE MOLESTIA EN AREA DE ABDOMEN DESDE HACE DUARTE . S/V EN TABLA TIM REFERENCIA. SE MIDE DOLOR, REFIERE #4 EN LA ESCALA DEL 0/10. SE ORIENTA A PACIENTE SOBRE PROTOCOLOS DE IRENE DE EMERGENCIA Y PROXIMOS PROCESOS A REALIZAR. PACIENTE EN IRENE EN ESPERA DE EVALUACION MEDICA.Yanira Crawford 10/13/2022 12:50:19 PM BOT > Encounters Encounter Location Date Provider Diagnosis [facility] [address] [place] [address] 10/13/2022 SABI CERDA Hematoma T14.8XXA Assessments Encounter Date Diagnosis (ICD Code) Assessment Notes Treatment Notes Treatment Clinical Notes Section Notes 10/13/2022 Hematoma (ICD-10 - T14.8XXA) Bruises: Care Instructions material was printed 10/13/2022 Other Patient is DH w / Rx and follow up w/ PCP. Plan Of Treatment Treatment Notes Assessment Notes Hematoma Bruises: Care Instru ctions material was printed Other Patient is DH w/ Rx and follow up w/ PCP. Pending Test Test Name Order Date CBC WITH DIFFERENTIAL 10/13/2022 Progress Notes * HERMAN NARAYANAN GDOB: 1945 (76 yo F)Acc No.[id number]:10/13/2022 Patient:?KIARA NARAYANAN G Provider:?SABI CERDA :1945???Age:76 Y???Sex:Female D ate:10/13/2022 [address] [place], [id number] Structured Data: : No Subjective: * Chief Complaints: * ???1. MOLESTIA EN AREA [facility]. * HPI: ???COVID-19 Screening:?Respiratory Illness Screening?1. Is fever present / reported??No,?2. Are respiratory illness symptom(s) present / reported??No,?3. Are other symptom(s) present / reported??No,?5. Has there been reported travel to a High Risk respiratory illness region??No,?6. Has close* contact with person(s) known to have communicable illness been reported??No,?7. Did travel or close contact (if applicable) occur within 14 days of symptom onset??No.?[facility] Enfermera:?Metodo de Transporte?Mick Privado.?Acompanado por:?Familiar.?Clasificacion Triage?Urgencia.?Estado de animo?Calmado.?Completado por:?X. JIM?.?General:? Case of 76 y/o female pt who came to ER due multiples hematomas. No trauma. * ROS:?Hematology:?Patient complains of?easy bruising.? * Medical History:?DIABETES, E STRENIMIENTO. * Surgical History:?CATETERISM O 06/2022. * Hospitalization/Major Diagno stic Procedure:?INFARTO 06/2022. * Family History:?Father: dece ased.?Mother: .? * Social History:?Tobacco Use:?Tobacco Use/Smoking?Tobacco use:?nonsmoker.?Drugs/Alcohol:?Drugs?Have you used drugs other than those for medical reasons in the past 12 months??No.?Alcohol Screen (Audit-C)?Did you have a drink containing alcohol in the past year? No,?Points?0,?Interpretation?Negative.?Caffeine?Intake:?none.?Do you smoke marijuana?: Denies. Do you drink alcohol?: No. * Medications:?Taking Metoprol ol Succinate , Taking Aspirin 81 81 MG Tablet Delayed Release 1 tablet Orally Once a day, Medication List reviewed and reconciled with the patient * Allergies:?Lisinopril: Aller gy, Losartan: Allergy. Objective: * Vitals:?BP: 119/71 mm Hg, HR : 59 /min, RR: 19 /min, Temp: 97.3 F, Oxygen sat %: 97 %, Wt: 148.0 lbs, Ht: 57 in, BMI: 32.02 Index, Pain scale: 4 1-10, Body Surface Area: 1.64, Wt-k.13 kg, Ht-cm: 144.78 cm NOTA DE TRIAGE: SE RECIBE PACIENTE FEMINA AMBULANDO, ALERTA Y ORIENTADA POR 3. CON BUEN PATRON RESPIRATORIO. PACIENTE REFIERE MOLESTIA EN AREA DE ABDOMEN DESDE HACE DUARTE . S/V EN TABLA TIM REFERENCIA. SE MIDE DOLOR, REFIERE #4 EN LA ESCALA DEL 0/10. SE ORIENTA A PACIENTE SOBRE PROTOCOLOS DE IRENE DE EMERGENCIA Y PROXIMOS PROCESOS A REALIZAR. PACIENTE EN IRENE EN ESPERA DE EVALUACION MEDICA. Yanira Crawford 10/13/2022 12:50:19 PM BOT >. * Examination: ???General Examination: ?General appearance:?alert, well-nourished and in no acute distress.?Heart:?regular rate and rhythm without murmurs, gallops, clicks or rubs.?Lungs:?clear to auscultation bilaterally, with good air movement and no rales, rhonchi or wheezes.?Abdomen:?soft with good bowel sounds, nontender, and no masses or hepatosplenomegaly.?Head:?normocephalic, atraumatic.?Eyes:?extraocular movement intact (EOMI), pupils equal, round, reactive to light and accommodation.?Ears:?normal appearing ears, ear canals patent, tympanic membranes intact and good light reflex.?Nose:?nares patent, no lesions.?Throat:?clear.?Oral cavity:?moist oral mucosa, intact lip and palate, normal oropharynx without erythema or exudate, tongue normal.?Neck / thyroid:?neck is supple, with full range of motion.?Lymph nodes:?no cervical lymphadenopathy.?Skin:?hematomas on right and left thigh, right flank.?Back:?full range of motion without difficulty.?Extremities:?normal extremity with no clubbing, cyanosis or edema.?Neurologic:?grossly normal.?Special Needs?None.?Pain assesment?Pain Assesment, Pain intensity (0-10), Present Pian, Worst Pain, Best Pain, Quality of pain, onset, duration, variation, and rhytms, What causes the pain?, What relieves the pain?, Area of the body with pian.? Assessment: * Assessment: 1.?Hematoma - T14.8XXA? Plan: * Treatment: 2.?Others? Notes: Patient is DH w/ Rx and follow up w/ PCP.?? * Procedures:?[facility] / Enfermeria:?Coleccion de MuestrasHora 1:37PM, Paciente orientado sobre procedimiento Yes, Coleccion de muestra para CBC, Medidas de asepsia con alcohol 70% GUANTES, GASAS, Se colecta muestra en area anatomica vena cefalica izquierda, Angelica de Intentos 1, Muestra rotulada y enviada al laboratorio para busby analisis, hora SI, Paciente tolera procedimiento Yes, Proceso realizado por Lai STEVENS BSN [id number].?.? * Labs:? * ?Lab: CBC WITH DIFFERENT IAL ? Value Reference Range ?WBC 6.5 4-11 - x10 * ?RBC 4.46 3.67-5.96 - x10 * ?HGB 13.7 10.9-17.4 - g/d L * ?HCT 40.8 32.7-50.2 - % * ?MCV 91.4 76-97.4 - fL * ?MCH 30.7 25.4-33.9 - pg * ?MCHC 33.6 31.9-36.2 - g/d L * ?RDW 13.7 12.6-15.6 - % * ?PLAT 181 150-450 - x10 * ?NEO 66.6 44.8-72.4 - % * ?LYMPH 26.2 17.9-43.4 - % * ?MONO 5.7 1.7-9.3 - % * ?EOSI 1.3 0-5.9 - % * ?BASO 0.2 0-0.5 - % * Billing Information: * Visit Code:? * Procedure Codes:? * Sign off status: Completed Addendum: * ? true * Provider:?SABI CERDA Date:?0 10/13/2022 Generated for Sascha gutierres/Judith/eTransmitting on:?04/10/2024 11:09 AM BOT History and Physical Notes * HPI (History of Present Illness) Category Sub-Category Detail Notes Category Not es COVID-19 Screening Respiratory Illness Screening 1. Is fever present / reported?: No 2. Are respiratory illness symptom(s) pr esent / reported?: No 3. Are other symptom(s) present / report ed?: No 5. Has there been reported t ravel to a High Risk respiratory illness region?: No 6. Has close* contact with p erson(s) known to have communicable illness been reported?: No 7. Did travel or close conta ct (if applicable) occur within 14 days of symptom onset?: No [facility] Enfermera Metodo de Transporte Akhtar o Privado Acompanado por: Familiar Clasificacion Triage Urgencia Estado de animo Calmado Completado por: X. JIM General Case of 76 y/o female pt who came to ER due multiples hematomas. No trauma. Examination Category Sub-Category Detail Notes Category Not es General Examination General appearance: alert, w ell-nourished and in no acute distress Head: normocephalic, atrau matic Eyes: extraocular movement intact (EOMI), pupils equal, round, reactive to light and accommodation Ears: normal appearing ear s, ear canals patent, tympanic membranes intact and good light reflex Nose: nares patent, no les ions Throat: clear Neck / thyroid: neck is supple, with full range of motion Heart: regular rate and rhy thm without murmurs, gallops, clicks or rubs Lungs: clear to auscultatio n bilaterally, with good air movement and no rales, rhonchi or wheezes Abdomen: soft with good bowel sounds, nontender, and no masses or hepatosplenomegaly Neurologic: grossly normal Skin: hematomas on right a nd left thigh, right flank Extremities: normal extremity wit h no clubbing, cyanosis or edema Back: full range of motion without difficulty Lymph nodes: no cervical lymphade nopathy Oral cavity: moist oral mucosa, i ntact lip and palate, normal oropharynx without erythema or exudate, tongue normal Pain assesment Pain Assesment, Pain intensity (0-10), Present Pian, Worst Pain, Best Pain, Quality of pain, onset, duration, variation, and rhytms, What causes the pain?, What relieves the pain?, Area of the body with pian Special Needs None
--- OUTSIDE RECORDS SUMMARY | 2024-04-10 10:09 | XMS_ITS | Encounter Summary ---
Author Organization [employer] Address [address] [facility] [address] [place] [address] Care Team Providers Care Raw Mill Operator Name Role Phone Liset Mitchell MD Primary Care Provider [phone] Reason for Visit * Reason Onset Date Comments Triage 07/07/2022 Encounter Details Date Type Department Care Team ([facility] st Contact Info) Description 07/07/2022 Telephone [facility] [address] [place], [place] [phone] Liset Mitchell MD [address] [place] [address] Triage Social History Tobacco Use Types Packs/Day [...] pt has upcomign appt on 08/03/22 with enamel drier. Pt confirmed that new discharge meds are [...] No answer LVM to return call to [facility] triage line. Protocol Used: No Contact or [...] The caller accepted this outcome Patient speaks maori. documented in this encounter Plan of Treatment Not on file documented as of this encounter Visit Diagnoses Not on filedocumented in this encounter Additional Health Concerns Assessment Noted Time PHQ-9 Depression Total Score: 0 04/13/19 23 10:04 AM EST documented as of this encounter Care Teams Raw Mill Operator Relationship Specialty Start Date End Date Liset Mitchell MD [address] [place] [id number] PCP - General Family Medicine 09/14/20 documented as of this encounter
--- OUTSIDE RECORDS SUMMARY | 2024-04-10 10:09 | XMS_ITS | Encounter Summary ---
Author Organization [employer] Address [address] [facility] [address] [place] [address] Care Team Providers Care Coater Operator Name Role Phone Liset Mitchell MD Primary Care Provider [phone] Encounter Details Date Type Department Care Team ([facility] Contact Info) Description 02/05/2024 Orders Only [facility] [address] [place], [place] [phone] Provider, MD Anne Marie Social History Tobacco [...] documented as of this encounter Care Teams Coater Operator Relationship Specialty Start Date End Date Liset Mitchell MD [address] [place] [address] PCP - General Family Medicine 09/14/20 documented as of this encounter
--- OUTSIDE RECORDS SUMMARY | 2024-04-10 10:10 | XMS_ITS | Encounter Summary ---
Author Organization [employer] Address [address] [facility] [address] [place] [address] Care Team Providers Care Manager Laundry Name Role Phone Liset Mitchell MD Primary Care Provider [phone] Reason for Visit * Reason Onset Date Comments ER Follow-up 05/15/2023 Encounter Details Date Type Department Care Team ([facility] Contact Info) Description 05/15/2023 Telephone [facility] MEDICINE [address] [place] [address] Liset Mitchell MD [address] [place] [id number] ER Follow-up Social History Tobacco Use Types [...] answer. LM to call us back in Estonian. Routing back to [facility] nurses. * Telephone Encounter - Sammy Hall - 05/15/2023 4:01 PM EDT Tc from pt returning phone call. * Telephone Encounter - Julieta Montalvo RN - 05/15/2023 3:29 PM EDT TC placed to patient x 2 regarding ED visit below via [employer] Administrator and without percher line. Patient has extended f/u with PCP on 05/25/23. Noted in appointment about recent ED visit for R shoulder pain/dislocation. LM for patient in Estonian that we are calling to check in and hope she is feeling better, remindingof upcoming appointment with PCP on 05/25/23 @ 11:15 and asking her to call us if she needs anythingprior to this appointment or needs a sooner appointment. Routing to PCP so she is aware. Patient calling to report ED visit on : Date: 05/13 Hospital: [facility] Seen for: Extremity Injury, Upper shoulder pain while taking x-rays Patient advised will forward to team nurse for follow up * Telephone Encounter - Daniel Rigoberto - 05/15/2023 11:06 AM EDT Patient calling to report ED visit on : Date: 05/13 Hospital: [facility] Seen for: Extremity Injury, Upper shoulder pain [...] documented as of this encounter Care Teams Manager Laundry Relationship Specialty Start Date End Date Liset Mitchell MD [address] [place] [address] PCP - General Family Medicine 09/14/20 documented as of this encounter
--- OUTSIDE RECORDS SUMMARY | 2024-04-10 10:10 | XMS_ITS | Data Portability ---
Author Organization [employer], [email or web address] Address [address] [place] [address] Care Team Providers Care Manager Customs Name Role Phone HIM [facility] OTHER [facility] Primary Care Provider Assessment Encounter Date Assessment Date Assessment LastModified by Organization Details LastModified Time 10/22/2023 10/22/2023 As noted, we orlando mclaughlin called to see this patient regarding concerns of nausea. Evaluation in the field was performed by my filter press tender head colleague, as noted above, I provided real-time [...] in the field was performed by my filter press tender head colleague, as noted above, I provided real-time [...] worsening serious symptoms, particularlyfever, chills, abdominal pain [email or web address] Not available 11/29/2023 16:22:01 01/30/2024 01/30/2024 I provided real -time medical direction via phone for this encounter and was available for additional phone-based assistance as needed. I have reviewed and agree with the Assessment and Plan as documented by the Pizza Chef. Patient given the opportunity to ask questions. Our service contacted for an assessment of: Non adherence with medication to treat hypertension As per above, patient was prescribed amlodipine by either holistic pulser PCP and is not adherent to medication given the fact this previously caused a known side effect of peripheral edema. Patient states she will not take medications. Denies chest pain, shortness of breath, dyspnea on exertion, any focal neurologic deficits. Per filter press tender head on the scene, vital signs are stable [...] in the field was performed by my filter press tender head colleague, as noted above, I provided real-time [...] On the physical exam done by the filter press tender head, he does not see any sores inside the bilateral Nares. The patient has no shortness of breath. The patient has no respiratory distress. Lung sounds were clear. She had a basically normal exam. He says it is quite dry and seat scooper machine the house. I wonder if there is [...] was discussed with the patient via the filter press tender head. An seam closer was used. Pt instructed to have an [...] worsening serious symptoms, particularly fever, excessive bleeding [email or web address] Not available 02/08/2024 11:20:45 03/26/2024 03/26/2024 Ms. [...] Assessment and Plan as documented by the Pizza Chef. We discussed the diagnostic uncertainty of home [...] plasma 2024 025 [email or web address] i7 Main - [facility], [address] [place] [address], [id number], 5 21:24:08 rapid SARS CoV 2 Ag, QL IA, respiratory specimen [address], [address] [place] [address], [id number], 5 21:24:08 rapid flu (A+B) [address], [address] [place] [address], [id number], 5 21:24:08 Referral None recorded. Procedures None recorded. Surgeries None recorded. Imaging None recorded. Medication Orders ondansetron HCl (PF) 4 mg/2 mL injection solution 2024 025 [address] [id number] [address] [place] [address], [address], 5 21:24:08 sodium chloride 0.9 % intravenous solution 2024 025 [address] [facility] [id number], [address] [place], [address], 5 21:24:08 ondansetron 4 mg disintegrat ing tablet 2024 025 [id number] [address] [place], [address], 5 21:24:10 mupirocin 2 % topical ointment 2023 024 [facility]acy #[id number], [address] [place], [address], 4 10:59:37 clotrimazol e 1 % topical cream 2023 024 [facility] #4471, [address] [place], [address], 4 10:20:27 ondansetron 4 mg disintegrat ing tablet 2023 024 [facility] #[id number], [address] [place], [address], 4 20:50:43 omeprazole 20 mg tablet,dede yed release 2023 024 [id number], [address] [place], [address], 4 20:50:43 Patient TargetsNo targets recorded. Patient InstructionsNo instructions recorded. Reason for Referral None Reported. Results Created Date Observation Date Name Description Value Unit Range Abnormal Flag Note LastModifiedBy Organization Detail LastModifiedTime 03/26/1903/26/2024 rapid SARS CoV 2 Ag, QL IA, respi rator y speci men rapid SARS CoV 2 Ag, QL IA, respiratory specimen negati ve Not Available [facility] ed [address] [place] [address], [id number], 03/26/2024 20:33:01 03/26/19 25 03/26/2024 rapid flu (A+B) Flu negati ve Not Available [facility] ed [address] [place] [address], [id number], 03/26/2024 20:33:02 Result Notes None recorded. Medical Equipment None Reported. Allergies Allergen ID Allergen Name Allergen Category Reaction Reaction Severity Criticality Documentation Date Start Date Code Code System Note Provider Name and Address Organization Details Recorded Time 10770 metoprolo l Not available Not available Not available Not available 01/30/2024 6918 RxNorm Not Available [facility] - production 17:06:26 6413 ezetimibe medicatio n Not available Not available Not available 11/29/2023 20915 8 RxNorm Not Available [facility] - production 13:58:51 6414 fluticaso ne Not available Not available Not available Not available 11/29/2023 40053 RxNorm Not Available [facility] - production 13:58:51 6415 hydrocodo ne Not available Not available Not available Not available 11/29/2023 5489 RxNorm Not Available [facility] - production 17:06:26 6416 umeclidin ium medicatio n chest pain Not available Not available 11/29/2023 94454 14 RxNorm Giorgio Pathak MD [address] [facility],[address], [place], [address], [facility] - [employer] 16:24:27 6417 lisinopri l medicatio n Not available Not available Not available 11/29/2023 74336 RxNorm Not Available [facility] - production 13:58:51 [...] rosuvastatin 20 mg tablet TOME CINDY TABLETA D active Not Available Not Available No [...] Available Not Available Not Available [employer] G7 House Designer USE DIRECTED active Not Available Not Available [...] /min 174 mm[Hg] 80 mm[Hg] Not Available [facility] - [employer] 4 19:42:28 Date Recorded Oxygen saturation Oxygen saturation in Arterial blood by Pulse oximetry Heart rate Respiratory rate Body temperature Body weight Systolic blood pressure Diastolic blood pressure Provider Name and Address Organization Details Last Updated DateTime 4 98 % 98 % 97 /min 16 /min 98.2 [degF] 26639.0 24 g 164 mm[Hg] 72 mm[Hg] Not Available [employer] 4 10:16:47 Date Recorded Body temperature Body weight Oxygen saturation Oxygen saturation in Arterial blood by Pulse oximetry Respiratory rate Heart rate Systolic blood pressure Diastolic blood pressure Provider Name and Address Organization Details Last Updated DateTime 4 97.4 [degF] 03973.8 8 g 99 % 99 % 16 /min 86 /min 162 mm[Hg] 84 mm[Hg] Not Available [employer] 4 21:07:32 Date Recorded Oxygen saturation Oxygen saturation in Arterial blood by Pulse oximetry Heart rate Respiratory rate Body temperature Body weight Systolic blood pressure Diastolic blood pressure Provider Name and Address Organization Details Last Updated DateTime 4 99 % 99 % 78 /min 16 /min 98.2 [degF] 15537.8 8 g 146 mm[Hg] 80 mm[Hg] Not Available [facility] [employer] 4 10:51:35 Date Recorded Body height Heart rate Respiratory rate Oxygen saturation Oxygen saturation in Arterial blood by Pulse oximetry Body weight Body temperature Systolic blood pressure Diastolic blood pressure Provider Name and Address Organization Details Last Updated DateTime 5 144.78 cm 83 /min 18 /min 97 % 97 % 46265.0 64 g 98.4 [degF] 153 mm[Hg] 67 mm[Hg] Not Available [facility] - production 20:31:05 Social History None recorded. Functional Status [...] [id number] Sosa Donnelly MD Main - [facility] [address] [place] [phone] 07/20/2021 17:44:53 11/22/2021 12:52:06 Dysuria [id number] R30.9 2428 Holland Lewis MD Main - [facility] [address] [place] [phone] 08/24/2021 17:49:18 11/17/2021 12:06:10 Adverse reaction to drug 32630507 T50.905A Reports some nausea and fatigue immediatel y after taking hydroxyzin e. Denies palpitatio ns (as in the expect note), chest pain, or chest pressure. Asymptomat ic now and feels back at baseline. Advised she go back to taking the hydroxyzin e once a day and communicat e all medication changes closely with primary care provider. 3329 Narendra Hassan MD Main - [facility] [address] [place] [phone] 10/08/2021 16:48:26 11/21/2021 12:43:51 Dysuria 70655055 R30.9 Will await culture prior to treatment given equivocal U/A [id number] Nataliia Grewal MD Main - [facility] [address] [place] [phone] 07/13/2022 17:00:14 07/14/2022 08:55:34 Inguinal pain [id number] R10.2 [id number] Holland Lewis MD Main - [facility] [address] [place] [phone] 08/24/2022 12:05:17 08/24/2022 22:29:37 Wheezing 42438571 R06.2 suspect viral-william kimberley bronchospa sm. Patient had some improvemen t with a short course of steroids prescribed last week but symptoms persist. No evidence of bacterial superinfec tion based on available data. Offered DuoNeb and a recurrent course of steroids, but patient declined. She will seek further care with her PCP. Red flags reviewed by filter press tender head and patient in understand ing. [id number] González Campo MD Main - [facility] [address] [place] [phone] 12/12/2022 18:24:35 12/13/2022 22:28:07 Facial swelling 892093542 R22.0 73148 Rich Lee MD Main - [facility] [address] [place] [phone] 03/26/2023 19:07:48 03/27/2023 10:52:20 Pain in right foot [id number] 37514 M79.671 This 77-year-ol d female with type 2 diabetes got her right foot caught in a screen today, and she thinks it cut her foot. The filter press tender head found no visual trauma to her right foot. I recommende d observatio n. She will follow-up with her PCP for any ongoing problems with her foot. The patient agreed with this plan. 81301 Nataliia Grewal MD Main - [facility] [address] [place] [phone] 07/17/2023 13:48:23 07/17/2023 17:51:58 Shoulder pain 06891030 M25.519 04603 González Campo MD Main - [facility] [address] [place] [phone] 08/10/2023 16:32:57 08/10/2023 21:11:42 Seasonal allergic rhinitis 013536700 J30.2 23292 Luci Corey MD Main - [facility] [address] [place] [phone] 10/22/2023 19:42:26 10/22/2023 21:01:10 Nausea 820306250 R11.0 62447 Giorgio Pathak MD Main - [facility] [address] [place] [phone] 0 11/29/2023 10:16:41 11/30/2023 00:42:40 Erythematous rash 205812146 R21 could be cellulitis vs fungal process [id number] Nataliia Grewal MD Main - [facility] [address] [place] [phone] 01/30/2024 21:07:30 01/31/2024 08:54:42 Essential hypertension 89469524 I10 78611 PRAMOD SIMONS MD Main - [facility] [address] [place] [phone] 02/08/2024 10:51:33 02/08/2024 14:05:30 Lesion of nasal mucosa 039214959 J34.89 98176 GENE BO MD Main - [facility] [address] [place] [phone] 03/26/2024 20:30:34 03/26/2024 23:58:55 Nausea and vomiting 27101412 R11.2 Health Concerns Section Related Observation LastModified by Organization Detai ls LastModified Time None Recorded Concern Status LastModified by Organization Details LastModified Time None Recorded Advance Directives Directive None Recorded Payers Encounter Date Sequence Insurance Name Policy Number Policy Valdovinos Covered Member ID Valdovinos Member ID Guarantor Name 10/22/2023 1 [facility] DOS ON OR AFTER 2022 - DUAL ELIGIBLE - LONG-TERM OPTIONS AND ONE CARE (MEDICARE REPLACEMENT/AD VANTAGE - HMO) Natali Cortes [id number] Natali Cortes 11/29/2023 1 [employer] - DOS ON OR AFTER 2022 - DUAL ELIGIBLE - LONG-TERM OPTIONS AND ONE CARE (MEDICARE REPLACEMENT/AD VANTAGE - HMO) Natali Cortes [id number] Naatli Cortes 01/30/2024 1 [employer] - DOS ON OR AFTER 2022 - DUAL ELIGIBLE - LONG-TERM OPTIONS AND ONE CARE (MEDICARE REPLACEMENT/AD VANTAGE - HMO) Natali Cortes [id number] Natali Cortes 02/08/2024 1 [employer] - DOS ON OR AFTER 2022 - DUAL ELIGIBLE - LONG-TERM OPTIONS AND ONE CARE (MEDICARE REPLACEMENT/AD VANTAGE - HMO) Natali Cortes [id number] Natali Cortes 03/26/2024 1 [employer] - DOS ON OR AFTER 2022 - DUAL ELIGIBLE - LONG-TERM OPTIONS AND ONE CARE (MEDICARE REPLACEMENT/AD VANTAGE - HMO) Natali Cortes [id number] Natali G Ai Cortes Notes Date Note Type Note Provider Name and Address Organization Details Recorded Time 10/22/2023 text/html HPI: HX: Constipation and gas bloat syndrome.Per Triage this morning patient contacted with [employer] Machine Helper [id number]. Patient answered call on second attempt and confirms that she went to [facility] but was unable to wait to be seen. ...................... ...................... ...................... ...................... ...................... ...................... ......... CRC Nurse Triage Notes (Jaye Smart): Chief Complaints: Abdominal Pain, Gastrointestinal Concerns (other) PMH: COPD/Asthma, Diabetes, COPD/Asthma, Hypertension Other Allergies: Estimibe,fluticasone,u meclidinum,empaglifozi n,hydrocodone,lisinopr il, metformin, mold and smuts, oxycodone. sitaglipin Comments: CRC RN did not require any additional information to process this visit.per [facility]: 2 weeks with abdominal pain and poor [...] medication............ ...................... ...................... ...................... ...................... ...................... .................... Pizza Chef Note From Laith Fisher: Dispatch to evaluate 77-year-old female with chief complaint of abdominal pain.Upon arrival, patient is AO times four, ambulating on her own without difficulty, and does not appear to be in acute distress. Patient is Thai-speaking and required Machine Helper services. Patient reports that she has been experiencing pain in the epigastric area of her abdomen for several days. She also reports nausea and acid reflux. Vital signs and abdominal exam were unremarkable. Abdomen was soft and nontender on palpation no point or rebound tenderness, or palpable masses. [facility] Luci Corey spoke to the pt at [...] she feels that she will wait too long.[facility] ordered 4mg Zofran ODT and Omeprazole 20mg PO. 5 rights were conformed and PO meds were administered as ordered.Pt to follow up with ER tomorrow am ...................... ...................... ...................... ...................... ...................... ...................... ......... Disposition: Yaron Corey MD [address] [facility], [place], [address], [employer] 10/22/2023 20:51:37 11/29/2023 text/html HPI: Multiple listed [...] Evaluation and culture if indicated [facility] RN[facility] info ...................... ...................... ...................... ...................... ...................... ...................... ......... Pizza Chef Note From Salazar Jean-Baptiste: Pt co reddish/pnik colored sore in Umbilicus, pt sts she noticed last even when shower Pt sts had leaking fluid however today no discharge or blood. Pt sts is painful when sh bends over. Pt denies fever, NVD, CP, SOB, Headache, dizziness or other abdominal joe Baseline vitals assessed, Photos taken of wound/insect bite and uploaded to [employer] ap febrile, Some pain on palpation. [facility] contacted and bacitracin applied and x for othe antibiotic ointment called in to pt RX for orange picker machine operator. Pt education on signs indicating the ER advised if worsens or does not improve in next couple of days to contact pcp. ...................... ...................... ...................... ...................... ...................... ...................... ......... Disposition: Fulfilled Giorgio Pathak MD [address] [place] [address],[address], [place], [address], [employer] 12/25/2023 21:40:03 01/30/2024 text/html CRC Nurse Triage [...] ...................... ...................... ...................... ...................... ...................... ...................... ......... Pizza Chef Note From Salazar Jean-Baptiste: Pt wanted BP evaluated. Pt was diagnosed with elevated BP and was prescribed amplodipine and is unwilling to take medications as she feels it causes her lower extremity edema. Pt denies CP, SOB, Headache, dizziness, NVD, abdominal pain. Baseline vitals assessed, WNL, Bp slightly elevated. [facility] contacted and advised pt to contact cardiology for follow up and also PCP. Pt education on signs indicating the ER. ...................... ...................... ...................... ...................... ...................... ...................... ......... [facility] Consulted: Nataliia Grewal ...................... ...................... ...................... ...................... ...................... ...................... ......... Disposition: Fulfilled Nataliia Grewal MD [address] [facility], [place], [address], [employer] 01/30/2024 21:10:54 02/08/2024 text/html CRC Nurse Triage Notes (Vicki Jane - RN): Reason For Request: Pt reporting for about 3 days reporting a blockage in her nose and notes it feels very dry>denies fever/chills>denies headache, denies dizziness. Chief Complaints: Wound care PMH: COPD/Asthma, Hypertension, Diabetes Mellitus Type 2, Hyperlipidemia Comments: Thai speaking member calling to request visit for painful sores inside both nares for the past 3 days. Reports intermittent bleeding. Has been applying vaseline. Does not wear 02. ...................... ...................... ...................... ...................... ...................... ...................... ......... Pizza Chef Note From Salazar Jean-Baptiste: Pt co sores [...] ...................... ...................... ...................... ...................... ...................... ...................... ......... [facility] Consulted: Pramod Simons ...................... ...................... ...................... ...................... ...................... ...................... ......... Disposition: Fulfilled PRAMOD SIMONS MD [address] [place] [address],[address], [place], [address], [employer] 02/08/2024 11:21:07 03/26/2024 text/html CRC Nurse Triage Notes (Linda Stanton - RN): Reason For Request: N/V, abdominal pain Chief Complaints: Vomiting, Abdominal pain PMH: COPD/Asthma, Hypertension, Diabetes Mellitus Type 2, Hyperlipidemia, Allergic Rhinitis PMH Reviewed at 03/26/2024 18:41 Allergies Reviewed at 03/26/2024 - 18:41 [...] allergies. Educated about response time. Dashawn RN Pizza Chef Organization Information for [facility] Loni Romero Legal Name: [id number] Address: [address] [place] [address], Touch Up Worker: Miguel Brown MD CLIA No.: [id number] Pizza Chef POC Test Results from [facility] - ALS iSTAT Chem8+ (20:26:15) Na: 139 mEq/L K: [...] ...................... ...................... ...................... ...................... ...................... ...................... ......... Pizza Chef Note From Gila Rosario: Sent to a [...] blood draw performed; Chem8+ results: uploaded to [employer]. [facility] consulted and orders rapid covid/flu test; Zofran 4mg IV and Normal Saline 500ml IV. Covid/flu test: neg; Zofran 4mg IV and Normal Saline 500ml IV administered. Pt reports nausea resolved. [facility] sends script to pt's pharmacy. IV removed. Red flags discussed. Pt has no further questions. ...................... ...................... ...................... ...................... ...................... ...................... ......... [facility] Consulted: Gene Bo ...................... ...................... ...................... ...................... ...................... ...................... ......... Disposition: Fulfilled GENE BO MD [address] [facility],[address], [place], [address], [facility] 03/26/2024 22:16:21 OBGyn Episode No OBEpisode recorded.
--- OUTSIDE RECORDS SUMMARY | 2024-04-10 10:10 | XMS_ITS | Encounter Summary ---
Author Organization [employer] Address [address] [facility] [address] [place] [address] Care Team Providers Care Reworker Name Role Phone Liset Mitchell MD Primary Care Provider [phone] Reason for Visit * Reason Comments Med Change Request Encounter Details Date Type Department Care Team ([facility] Contact Info) Description 10/02/2022 Refill [facility]EDS [address] [place] [address] Carla Cheng MD [address] [place] [address] Social History Tobacco Use Types Packs/Day Years [...] documented as of this encounter Care Teams Reworker Relationship Specialty Start Date End Date Liset Mitchell MD [address] [place] [address] PCP - General Family Medicine 09/14/20 documented as of this encounter
--- OUTSIDE RECORDS SUMMARY | 2024-04-10 10:10 | XMS_ITS | Encounter Summary ---
Author Organization [employer] Address [address] [facility] [address] [place] [address] Care Team Providers Care Rod Bending Machine Operator Name Role Phone Liset Mitchell MD Primary Care Provider [phone] Reason for Visit * Reason Comments Med Change Request Encounter Details Date Type Department Care Team ([facility] Contact Info) Description 10/26/2023 Refill [facility] PEDS [address] [place], [place] [phone] Liset Mitchell MD [address] [place] [address] Social History Tobacco Use Types Packs/Day Years [...] documented as of this encounter Care Teams Rod Bending Machine Operator Relationship Specialty Start Date End Date Liset Mitchell MD [address] [place] [address] PCP - General Family Medicine 09/14/20 documented as of this encounter
--- OUTSIDE RECORDS SUMMARY | 2024-04-10 10:10 | XMS_ITS | Clinical Summary ---
Author Organization [facility] Address [address] [place] [address] Phone Care Team Providers Care Broiler Supervisor Name Role Phone Liset Mitchell MD Primary Care Provider [phone] Allergies Active Allergy Reactions Criticality Noted Date [...] EST - 01/26/2024 7:56 AM EST Emergency [facility] Emergency [address] [place] [address] Emilia Marr MD Primary hypertension [...] 07/24/2018 DX:Allergic rh initis Congestive heart failure ([facility]) 07/24/2018 DX:Congestive heart failure ([facility]) Recurrent herpes labialis 07/24/2018 DX:Rec urrent herpes labialis 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 History of colon polyps 07/24/2018 DX:Histo ry of colon polyps ROXIE (obstructive sleep apnea) 07/24/2018 DX :ROXIE (obstructive sleep apnea) Type 2 diabetes mellitus wit hout complication ([facility]) 07/24/2018 DX:Type 2 diabetes mellitus without complication ([facility]) HTN (hypertension) DX:HTN (hyper tension) GERD (gastroesophageal reflux disease) DX:GERD (gastroesophageal reflux disease) Depression DX:Depression 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 ([facility]) DX:Insulin dependent type 2 diabetes mellitus ([facility]) Social History Tobacco Use Types Packs/Day Years Used Date Smoking Tobacco: Never Smokeless Tobacco: Never Alcohol Use Standard Drinks/Week Comments Yes 0 (1 standard drink = 0.6 oz pur e alcohol) Comments Unknown Sex and Gender Information Value Date Recorded Sex Assigned at Not on file Legal Sex Female 2:31 PM EST Gender Identity Not on file Sexual Orientation Not on file Obstetrics History Last Filed [...] Tdap) 03/27/2033 03/27/2023, 05/21/2012, 11/04/1997 Pneumococcal Vaccine: 50+ Years Completed 01/04/2024, 03/18/2015, 03/25/2011, Additional history [...] patient's age to complete this topic Meningococcal B Vacine Aged Out No lo nger eligible based on patient's age to complete [...] LAB CHEMISTRY METHOD 01/26/2024 6:51 AM EST [facility] Blood Venous blood specimen / Unknown Venipuncture / Unknown 01/26/2024 6:13 AM EST 01/26/2024 6:22 AM EST Narrative [facility] - 01/26/2024 6:51 AM EST High levels of biotin in samples may falsely decrease hsTroponin values. ??Use caution when interpreting hsTroponin results in patients taking biotin who exhibit renal impairment (eGFR <60) or in patients taking more than 20 mg/day of biotin. us Emilia Marr MD LAB BLOOD ORDERABLES Fin al Result [facility] [address] [place] [address], * XR Chest 2 Views (01/26/2024 5:06 AM EST) Anatomical Region Laterality Modality Body Radiographic Nelly ging 01/26/2024 8:24 AM EST Impressions 01/26/2024 8:25 AM EST No acute findings. -------- FINAL REPORT -------- Dictated By: Santosh Camargo Dictated Date: 01/26/2024 08:24 ET Assigned Physician: Santosh Camargo Reviewed and Electronically Signed By: Santosh Camargo Signed Date: 01/26/2024 08:25 ET Workstation ID: [id number] Transcribed By: Self Edit Transcribed Date: 01/26/2024 08:24 ET Narrative 01/26/2024 8:25 AM EST PA and lateral views of the chest dated 01/26/2024. HISTORY: chest pain. COMPARISON: 06/26/2022. FINDINGS: Atherosclerotic calcifications of the aorta. ??Upper normal heart size. ??Lungs and pleural spaces are clear. ??No pulmonary edema. ??Degenerative changes of the spine and shoulders. Procedure Note Santosh Camargo MD - 01/26/2024 PA and lateral [...] Signed Date: 01/26/2024 08:25 ET Workstation ID: [id number] Transcribed By: Self Edit Transcribed Date: 01/26/2024 08:24 ET us Emilia Marr MD IMG XR PROCEDURES Final Result * CBC auto differential (01/26/2024 4:23 AM EST) WBC 7.2 4.8 - 10.8 K/mcL LAB HEMETOLOGY METHOD 01/26/2024 4:49 AM EST [facility] RBC 4.50 3.80 - 4.80 M/mcL LAB HEMETOLOGY METHOD 01/26/2024 4:49 AM EST [facility] Hemoglobin 13.6 11.5 - 16.0 g/dL LAB HEMETOLOGY METHOD 01/26/2024 4:49 AM [facility] Hematocrit 41.4 35.0 - 47.0 % LAB HEMETOLOGY METHOD 01/26/2024 4:49 AM [facility] MCV 93.0 79.0 - 98.0 FL LAB HEMETOLOGY METHOD 01/26/2024 4:49 AM [facility] MCH 30.6 27.0 - 32.0 pcg LAB HEMETOLOGY METHOD 01/26/2024 4:49 AM [facility] MCHC 32.9 32.0 - 37.0 g/dL LAB HEMETOLOGY METHOD 01/26/2024 4:49 AM [facility] RDW 12.7 11.0 - 15.0 % LAB HEMETOLOGY METHOD 01/26/2024 4:49 AM [facility] Platelets 191 130 - 400 K/mcL LAB HEMETOLOGY METHOD 01/26/2024 4:49 AM [facility] MPV 10.8 7.0 - 11.0 FL LAB HEMETOLOGY METHOD 01/26/2024 4:49 AM [facility] NRBC 0.0 <1.0 % LAB HEMETOLOGY METHOD 01/26/2024 4:49 AM [facility] NRBC Absolute 0.00 <0.10 K/mcL LAB HEMETOLOGY METHOD 01/26/2024 4:49 AM [facility] Neutrophils Relative 60.8 % LAB HEMETOLOGY METHOD 01/26/2024 4:49 AM [facility] Lymphocytes Relative 29.1 % LAB HEMETOLOGY METHOD 01/26/2024 4:49 AM [facility] Monocytes Relative 6.9 % LAB HEMETOLOGY METHOD 01/26/2024 4:49 AM [facility] Eosinophils Relative 2.2 % LAB HEMETOLOGY METHOD 01/26/2024 4:49 AM EST [facility] Basophils Relative 0.7 % LAB HEMETOLOGY METHOD 01/26/2024 4:49 AM EST [facility] Immature Granulocytes Relative 0.3 % LAB HEMETOLOGY METHOD 01/26/2024 4:49 AM [facility] Neutrophils Absolute 4.38 1.50 - 7.00 K/mcL LAB HEMETOLOGY METHOD 01/26/2024 4:49 AM EST [facility] Lymphocytes Absolute 2.10 1.00 - 5.00 K/mcL LAB HEMETOLOGY METHOD 01/26/2024 4:49 AM EST [facility] Monocytes Absolute 0.50 0.20 - 1.00 K/mcL LAB HEMETOLOGY METHOD 01/26/2024 4:49 AM EST [facility] Eosinophils Absolute 0.16 0.00 - 0.50 K/mcL LAB HEMETOLOGY METHOD 01/26/2024 4:49 AM EST [facility] Basophils Absolute 0.05 0.00 - 0.20 K/mcL LAB HEMETOLOGY METHOD 01/26/2024 4:49 AM EST [facility] Immature Granulocytes Absolute 0.02 0.00 - 0.03 K/mcL LAB HEMETOLOGY METHOD 01/26/2024 4:49 AM [facility] Blood Venous blood specimen / Unknown Venipuncture / Unknown 01/26/2024 4:23 AM EST 01/26/2024 4:44 AM EST us Emilia Marr MD LAB BLOOD ORDERABLES Fin al Result [facility] [address] [place] [address], * B-type natriuretic peptide (01/26/2024 4:23 AM EST) BNP 38 <=100 pcg/mL LAB CHEMISTRY METHOD 01/26/2024 7:49 AM EST [facility] Blood Venous blood specimen / Unknown Venipuncture / Unknown 01/26/2024 4:23 AM EST 01/26/2024 4:44 AM EST Emilia Marr MD LAB BLOOD ORDERABLES Fin al Result Performing Organization Address [facility]/ZIP Co de Phone Number [facility] [address] [place] [address], [place] [phone] * Magnesium (01/26/2024 4:23 AM EST) Magnesium 1.9 1.9 - 2.6 mg/dL LAB CHEMISTRY METHOD 01/26/2024 5:18 AM EST [facility] Blood Venous blood specimen / Unknown Venipuncture / Unknown 01/26/2024 4:23 AM EST 01/26/2024 4:44 AM EST Emilia Marr MD LAB BLOOD ORDERABLES Fin al Result Performing Organization Address [facility] de Phone Number [facility] [address] [place] [address], [place] [phone] * (ABNORMAL) Lipase (01/26/2024 4:23 AM EST) Lipase 12(L) 13 - 75 unit/L LAB CHEMISTRY METHOD 01/26/2024 5:18 AM EST [facility] Blood Venous blood specimen / Unknown Venipuncture / Unknown 01/26/2024 4:23 AM EST 01/26/2024 4:44 AM EST Emilia Marr MD LAB BLOOD ORDERABLES Fin al Result Performing Organization Address [facility]/ZIP Co de Phone Number [facility] [address] [place] [address], [place] [phone] * (ABNORMAL) Comprehensive metabolic panel (01/26/2024 4:23 AM EST) Sodium 141 133 - 145 mmol/L LAB CHEMISTRY METHOD 01/26/2024 5:18 AM [facility] Potassium 4.1 3.5 - 5.5 mmol/L LAB CHEMISTRY METHOD 01/26/2024 5:18 AM [facility] Chloride 108 96 - 110 mmol/L LAB CHEMISTRY METHOD 01/26/2024 5:18 AM [facility] CO2 28 21 - 32 mmol/L LAB CHEMISTRY METHOD 01/26/2024 5:18 AM [facility] Anion Gap 5 3 - 11 LAB CHEMISTRY METHOD 01/26/2024 5:18 AM [facility] Glucose 154(H) 70 - 100 mg/dL LAB CHEMISTRY METHOD 01/26/2024 5:18 AM [facility] BUN 25 5 - 25 mg/dL LAB CHEMISTRY METHOD 01/26/2024 5:18 AM [facility] Creatinine 0.87 0.50 - 1.10 mg/dL LAB CHEMISTRY METHOD 01/26/2024 5:18 AM [facility] eGFR 68 >=60 mL/min/1. 73m2 LAB CHEMISTRY METHOD 01/26/2024 5:18 AM [facility] Comment:Calculation based on the??Chronic Kidney Disease Epidemiology Collaboration (CKD-EPI) equation refit??without adjustment for race. BUN/Creatinine Ratio 28.7 LAB CHEMISTRY METHOD 01/26/2024 5:18 AM [facility] Calcium 9.7 8.5 - 10.5 mg/dL LAB CHEMISTRY METHOD 01/26/2024 5:18 AM [facility] AST (SGOT) 20 10 - 42 unit/L LAB CHEMISTRY METHOD 01/26/2024 5:18 AM [facility] ALT (SGPT) 33 10 - 60 unit/L LAB CHEMISTRY METHOD 01/26/2024 5:18 AM EST [facility] Alkaline Phosphatase 58 42 - 121 unit/L LAB CHEMISTRY METHOD 01/26/2024 5:18 AM EST [facility] Total Protein 7.1 6.0 - 8.0 g/dL LAB CHEMISTRY METHOD 01/26/2024 5:18 AM EST [facility] Albumin 3.9 3.2 - 5.0 g/dL LAB CHEMISTRY METHOD 01/26/2024 5:18 AM EST [facility] Total Bilirubin 0.5 0.0 - 1.4 mg/dL LAB CHEMISTRY METHOD 01/26/2024 5:18 AM EST [facility] Blood Venous blood specimen / Unknown Venipuncture / Unknown 01/26/2024 4:23 AM EST 01/26/2024 4:44 AM EST Emilia Marr MD LAB BLOOD ORDERABLES Fin al Result [facility] [address] [place] [address], [place] [phone] * ECG 12 lead (01/26/2024 3:46 AM EST) Ventricular Rate ECG 56 BPM GEMUSE Atrial Rate 56 BPM GEMUSE P-R Interval 164 ms GEMUSE QRS Duration 100 ms GEMUSE Q-T Interval 442 ms GEMUSE QTc 426 ms GEMUSE R [place] -26 degrees GEMUSE T [place] -23 degrees GEMUSE ECG Interpretation Sinus bradycardia 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) When compared with ECG of 26-JUN-2022 13:46, No significant change was found Confirmed by GIANNI MILLS ([id number]) on 01/26/2024 9:19:00 PM GEMUSE 01/26/2024 3:46 AM EST 01/26/2024 9:19 PM EST us Emilia Marr MD ECG ORDERABLES Final Re sult [facility] * Urinalysis with reflex microscopic and culture (01/26/2024 3:16 AM EST) Specific [place] Urine 1.017 1.003 - 1.030 LAB URINALYSIS - AUTOMATED METHOD 01/26/2024 4:14 AM [facility] pH, Urine 7.0 5.0 - 8.0 pH LAB URINALYSIS - AUTOMATED METHOD 01/26/2024 4:14 AM [facility] Leukocytes, Urine Negative Negative LAB URINALYSIS - AUTOMATED METHOD 01/26/2024 4:14 AM [facility] Nitrite, Urine Negative Negative LAB URINALYSIS - AUTOMATED METHOD 01/26/2024 4:14 AM [facility] Protein, Urine Negative <=Trace mg/dL LAB URINALYSIS - AUTOMATED METHOD 01/26/2024 4:14 AM [facility] Glucose, Urine Negative Negative mg/dL LAB URINALYSIS - AUTOMATED METHOD 01/26/2024 4:14 AM [facility] Ketones, Urine Negative Negative mg/dL LAB URINALYSIS - AUTOMATED METHOD 01/26/2024 4:14 AM [facility] Urobilinogen, Urine 0.2 0.2 - 1.0 mg/dL LAB URINALYSIS - AUTOMATED METHOD 01/26/2024 4:14 AM [facility] Bilirubin, Urine Negative Negative LAB URINALYSIS - AUTOMATED METHOD 01/26/2024 4:14 AM [facility] Blood, Urine Negative Negative LAB URINALYSIS - AUTOMATED METHOD 01/26/2024 4:14 AM [facility] Urine Urine specimen obtained by clean catch procedure / Unknown Non-blood Collection / Unknown 01/26/2024 3:16 AM EST 01/26/2024 3:23 AM EST us Emilia Marr MD LAB URINE ORDERABLES Fin al Result Performing Organization Address City/[facility]/ZIP Co de Phone Number [facility] [address] [place] [address], [place] [phone] * Gil urine culture tube (01/26/2024 3:16 AM EST) Extra Tube Hold for add-ons. 01/26/2024 5:01 AM EST [facility] Comment:Auto resulted. Urine Urine specimen obtained by clean catch procedure / Unknown Non-blood Collection / Unknown 01/26/2024 3:16 AM EST 01/26/2024 3:23 AM EST Emilia Marr MD LAB URINE ORDERABLES Fin al Result Performing Organization Address [facility] Co de Phone Number [facility] [address] [place] [address], [place] [phone] * ECG-Annotated (01/26/2024) us Provider Onbase ECG ORDERABLES Final Result from Last 3 Months Insurance [facility] MEDIC[facility] Member Subscriber Plan / Payer (Ef fective 2012-Present) Name:Natali Bower Relation to Subscriber:Self Name:Natali Bower Payer ID:[id number] Group ID:[id number] Type:Not on file Address: [facility] [address] [place] [address] Care Teams Broiler Supervisor Relationship Specialty Start Date End Date Liset Mitchell MD [address] [place] [phone] [facility] - General 08/09/21
--- OUTSIDE RECORDS SUMMARY | 2024-04-10 10:10 | XMS_ITS | Data Portability ---
Author Organization [place] - [facility], Allergy Address [address] [address] Care Team Providers Care Customs Compliance Specialist Name Role Phone JACKSON PEDRO Primary Care Provider [phone] Assessment Encounter Date Assessment Date Assessment LastModified by Organization Details LastModified Time 03/10/2024 03/10/2024 78yo female with allergic rhinitis on immunotherapy presents for evaluation of ear pressure. Exam demonstrates TMs are intact with well-aerated middle ear spaces. Tympanometry was type A bilaterally. We discussed her isolated ear pressure is likely a manifestation of her allergic rhinitis vs TMJ. We reviewed the pathophysiology of intermittent inflammation of the jaw joint or spasm of the surrounding musculature. I recommended the patient use light massage, warm compresses and anti-inflammatorie s for symptomatic management. Stressed chewing evenly on both sides of the mouth to keep from overworking the jaw joint. Use soft food diet as needed. Recommend continuing Flonase two sprays once daily and reviewed opposite hand administration. She would like to return to the office to discuss throat irritation. [email or web address] Not available 03/10/2024 12:34:49 Plan of Treatment Reminders Order Date Submit Date Provider Last Modified By Organization Details Last Modified Time Details Appointments None record ed. Lab None record ed. Referral None record ed. Procedures None record ed. Surgeries None record ed. Imaging None record ed. Medication Orders None record ed. Patient TargetsNo targets recorded. Patient InstructionsNo instructions recorded. Reason for Referral None Reported. Results Created Date Observation Date Name Description Value Unit Range Abnormal Flag Note LastModifiedBy Organization Detail LastModifiedTime 03/11/19 25 audio gram No observ ation record ed. BARCODE Not Available 2024 09:36:52 Result Notes None recorded. Problems Name Problem SNOMED Code Status Onset Date Resolution Date Notes Provider Name and Address Organization Details Recorded Time Nasal congestio n 96922550 Active 2016 Nasal congestio n; Note: Date Diagnosed : 08/11/2016 11:55 AM (R09.81) Not Available [facility] 4 03:07:47 Chronic rhinitis 44453395 Active 2018 Chronic rhinitis; Note: Date Diagnosed : 08/21/2018 5:21 PM (J31.0) Not Available [facility] 4 03:07:47 Tinnitus of right ear 08058412678 08 Active 2016 Tinnitus, right ear; Note: Date Diagnosed : 08/11/2016 12:22 PM (H93.11) Not Available [facility] 4 03:07:46 Asthma 699812624 Active 2016 Other asthma; Note: Date Diagnosed : 03/01/2016 1:00 PM (J45.998) Not Available [facility] 4 03:07:46 Otalgia of right ear 4458900114 Active 2016 Otalgia, right ear; Note: Date Diagnosed : 08/11/2016 12:22 PM (H92.01) Not Available [facility] 4 03:07:46 Disturban ce of salivary secretion 85263917 Active 2018 Xerostomi a; Note: Date Diagnosed : 07/24/2018 2:04 PM (K11.7) Not Available [facility] 4 03:07:46 Sensorine ural hearing loss of bilateral ears 502800423 Active 2016 Sensorine ural hearing loss, bilateral ; Note: Date Diagnosed : 08/11/2016 12:23 PM (H90.3) Not Available [facility] 4 03:07:47 Dysphagia 41875978 Active 2021 Dysphagia , unspecifi ed; Note: Date Diagnosed : 08/10/2021 1:29 PM (R13.10) Not Available [facility] 4 03:07:47 Allergic rhinitis 33816849 Active 2018 Other allergic rhinitis; Note: Date Diagnosed : 07/24/2018 2:03 PM (J30.89) Not Available [facility] 4 03:07:47 Chronic sialadeni tis 091152788 Active 2018 Chronic sialoaden itis; Note: Date Diagnosed : 07/24/2018 2:03 PM (K11.23) Not Available [facility] 4 03:07:46 Impacted cerumen of bilateral ears 47912811335 68730 Active 2016 Impacted cerumen, bilateral ; Note: Date Diagnosed : 03/01/2016 1:00 PM (H61.23) Not Available [facility] 4 03:07:45 Chronic pharyngit is 782532 Active 2019 Chronic sore throat; Note: Date Diagnosed : 07/18/2019 3:39 PM (J31.2) Not Available [facility] 4 03:07:45 Posterior rhinorrhe a 46361919 Active 2024 FARTUN HERNANDEZ PA-C [address] [place] [address],[place] [address], [place], [phone] , [facility] 5 09:48:30 Ear pressure sensation 468099133 Active 2024 FARTUN HERNANDEZ PA-C [address] [place] [address],[place] [address], [place], [phone] , [facility] 5 12:09:01 Problem Notes None recorded. Procedures Surgical History Date Name Laterality Status Provider Name and Address Organization Details Recorded Time 03/10/19 25 Tympanometry (71953) completed Lorri Levy [facility] 03/10/2024 12:09:43 Imaging Results Imaging Date Name Status LastModified by [facility]iz [facility] Details LastModified Time 03/11/2024 audiogram completed BARCODE Information no t available 03/11/2024 09:36:52 Procedure Notes None recorded. Medical Equipment None Reported. Medications Name Sig Start Date Stop Date Status Note LastModified by Organization Details LastModified Time humidifier vicks cool mist USE DIRECTED EVERY DAY active Not Available Not Available No t Available cyclobenza zaria 10 mg tablet 10 MG ORALLY EVERY 8 HOURS active Not Available Not Available No t Available budesonide 32 mcg/actuat ion nasal spray USE 1-2 SPRAYS PER NOSTRIL TWICE A DAY active Not Available Not Available No t Available azelastine 0.05 % eye drops INSTILL 1 DROP PER EYE UP TO TWICE A DAY NEEDED FOR ITCH/REDN ESS active Not Available Not Available No t Available doxycyclin e hyclate 100 mg capsule PLEASE SEE ATTACHED FOR DETAILED DIRECTION S active Not Available Not Available No t Available ipratropiu m 0.5 mg-albuter ol 3 mg (2.5 mg base)/3 mL nebulizati on soln 3 ML INHALED EVERY 6 HOURS NEEDED FOR FOR WHEEZING active Not Available Not Available No t Available Toprol XL 100 mg tablet,ext ended release 2016 active Medicatio n ID: [id number] Br and Name: Toprol XL Send Method: E-Prescri bed Subs Allowed: subs [place] Medica tionGener icName: Toprol XL Not Available Not Available Not Available cetirizine 10 mg tablet TAKE 1 TABLET BY MOUTH EVERY DAY IN THE MORNING active Not Available Not Available No t Available FreeStyle Lancets 28 gauge USE 1 EACH 4 TIMES A DAY BEFORE MEALS AND AT NIGHTLY active Not Available Not Available No t Available ondansetro n HCl 4 mg tablet TAKE 1 TABLET BY MOUTH EVERY 8 HOURS NEEDED FOR NAUSEA OR FOR VOMITING FOR UP TO 7 DAYS active Not Available Not Available No t Available prednisone 20 mg tablet TAKE 1 TABLET BY MOUTH EVERY DAY FOR 4 DAYS active Not Available Not Available No t Available hydroxyzin e pamoate 50 mg capsule TAKE 1 CAPSULE BY MOUTH 1 TIME FOR 1 DOSE active Not Available Not Available No t Available pioglitazo ne 45 mg tablet TAKE 1 TABLET BY MOUTH EVERY DAY active Not Available Not Available No t Available amlodipine 2.5 mg tablet TAKE 1 TABLET (2.5 MG) BY MOUTH ONCE PER DAY. active Not Available Not Available No t Available clopidogre l 75 mg tablet TAKE 1 TABLET BY MOUTH EVERY DAY active Not Available Not Available No t Available chlorthali done 25 mg tablet 2016 active Medicatio n ID: [id number] Br and Name: chlorthal ariana Sen d Method: E-Prescri bed Subs Allowed: subs [place] Medica tionGener icName: chlorthal idone Not Available Not Available Not Available amlodipine 5 mg tablet TAKE 1 TABLET BY MOUTH EVERY DAY active Not Available Not Available No t Available aspirin 81 mg tablet,del ayed release 2016 active Medicatio n ID: [id number] Br and Name: aspirin S end Method: E-Prescri bed Subs Allowed: subs [place] Medica tionGener icName: aspirin Not Available Not Available Not Available doxycyclin e monohydrat e 100 mg tablet TAKE 1 TABLET BY MOUTH TWICE A DAY FOR 14 DAYS active Not Available Not Available No t Available tramadol 50 mg tablet TAKE 1 TABLET BY MOUTH EVERY 6 HOURS NEEDED FOR PAIN active Not Available Not Available No t Available Diovan 320 mg tablet 2016 active Medicatio n ID: [id number] Br and Name: Diovan Se nd Method: E-Prescri bed Subs Allowed: subs [place] Medica tionGener icName: Diovan Not Available Not Available Not Available acetaminop hen 500 mg tablet TAKE 500 MG ORALLY EVERY 6 HOURS NEEDED FOR FEVER OR PAIN active Not Available Not Available No t Available spironolac tone 25 mg tablet TAKE 1 TABLET BY [...] No t Available famotidine 20 mg tablet 20 MG ORALLY 2 TIMES A DAY FOR 90 DAYS active Not Available Not Available No t Available lorazepam 0.5 mg tablet TAKE 1 TABLET BY MOUTH EVERY 8 (EIGHT) HOURS IF NEEDED FOR ANXIETY. active Not Available Not Available No t Available baclofen 10 mg tablet TAKE 1 TABLET BY MOUTH THREE TIMES A DAY NEEDED active Not Available Not Available No t Available amlodipine 10 mg tablet 2016 active Medicatio n ID: [id number] Br and Name: amlodipin e Send Method: E-Prescri bed Subs Allowed: subs [place] Medica tionGener icName: amlodipin e Not Available Not Available Not Available simvastati n 20 mg tablet 2016 active Medicatio n ID: [id number] Br and Name: simvastat in Send Method: E-Prescri bed Subs Allowed: subs [place] Medica tionGener icName: simvastat in Not Available Not Available Not Available diclofenac 0.1 % eye drops 2016 active Medicatio n ID: [id number] Br and Name: diclofena c sodium Se nd Method: E-Prescri bed Subs Allowed: subs [place] Medica tionGener icName: diclofena c sodium Not Available Not Available Not Available diphenhydr amine 25 mg tablet 2016 active Medicatio n ID: [id number] Br and Name: diphenhyd ramine HCl Send Method: E-Prescri bed Subs Allowed: subs [place] Medica tionGener icName: diphenhyd ramine HCl Not Available Not Available Not Available Aquaphor topical ointment 2016 active Medicatio n ID: [id number] Br and Name: Aquaphor Send Method: E-Prescri bed Subs Allowed: subs [place] Medica tionGener icName: Aquaphor Not Available Not Available Not Available budesonide 0.5 mg/2 mL suspension for nebulizati on INHALE 1 VIAL VIA NEBULIZER TWICE A DAY FOR 30 DAYS active Not Available Not Available No t Available mupirocin 2 % topical ointment APPLY A SMALL AMOUNT TO THE BILATERAL NARES BY TOPICAL ROUTE 2 TIMES PER DAY active Not Available Not Available No t Available metoprolol succinate ER 25 mg tablet,ext ended release 24 hr TAKE 1 TABLET BY MOUTH IN THE MORNING . DO NOT CRUSH OR CHEW active Not Available Not Available No t Available azelastine 137 mcg (0.1 %) nasal spray 2 spray 2020 active Medicatio n ID: [id number] Pr escribed By Name: NIELS Dumont Name: azelastin e Send Method: E-Prescri bed Subs Allowed: subs [place] Medica tionGener icName: azelastin e Not Available Not Available Not Available hydrocorti sone 2.5 % topical ointment APPLY TOPICALLY TO AFFECTED AREAS ON FACE TWICE DAILY X1 WEEK, BREAK X1 WEEK THEN REPEAT NEEDED active Not Available Not Available No t Available ondansetro n 4 mg disintegra ting tablet PLEASE SEE ATTACHED FOR DETAILED DIRECTION S active Not Available Not Available No t Available fluticason e propionate 50 mcg/actuat ion nasal spray,susp ension SPRAY 1 SPRAY INTO EACH NOSTRIL EVERY DAY active Not Available Not Available No t Available clotrimazo le 1 % topical cream APPLY TO AFFECTED AREA TWICE A DAY IN THE MORNING AND IN THE EVENING active Not Available Not Available No t Available sertraline 50 mg tablet TAKE 1 TABLET BY MOUTH EVERY DAY active Not Available Not Available No t Available ipratropiu m bromide 21 mcg (0.03 %) nasal spray ADMINISTE R 1-2 SPRAYS DAILY NEEDED active Not Available Not Available No t Available loratadine 10 mg tablet TAKE 1 TABLET EVERY DAY NEEDED active Not Available Not Available No t Available Ventolin HFA 90 mcg/actuat ion aerosol inhaler 2 puff 2016 active Medicatio n ID: [id number] Du ration Value: 90 Brand Name: Ventolin HFA Send Method: E-Prescri bed Subs Allowed: subs [place] Medica tionGener icName: Ventolin HFA Not Available Not Available Not Available Premarin 0.625 mg tablet 2016 active Medicatio n ID: [id number] Br and Name: Premarin Send Method: E-Prescri bed Subs Allowed: subs [place] Medica tionGener icName: Premarin Not Available Not Available Not Available rosuvastat in 40 mg tablet TAKE 1 TABLET BY MOUTH EVERY DAY IN THE MORNING active Not Available Not Available No t Available Prilosec OTC 20 mg tablet,del ayed release 2016 active Medicatio n ID: [id number] Br and Name: Prilosec OTC Send Method: E-Prescri bed Subs Allowed: subs [place] Medica tionGener icName: Prilosec OTC Not Available Not Available Not Available metformin ER 1,000 mg tablet,ext ended release 24hr (osmotic) 2016 active Medicatio n ID: [id number] Br and Name: metformin Send Method: E-Prescri bed Subs Allowed: subs [place] Medica tionGener icName: metformin Not Available Not Available Not Available albuterol sulfate concentrat e 2.5 mg/0.5 mL solution for nebulizati on 2016 active Medicatio n ID: [id number] Br and Name: albuterol sulfate S end Method: E-Prescri bed Subs Allowed: subs [place] Medica tionGener icName: albuterol sulfate Not Available Not Available Not Available nitrofuran toin monohydrat e/macrocry stals 100 mg capsule TAKE 1 CAPSULE BY MOUTH TWICE A DAY FOR 7 DAYS active Not Available Not Available No t Available Gas Relief Extra Strength 125 mg chewable tablet TAKE 1 TABLET BY MOUTH NEEDED AFTER MEALS AND AT BEDTIME FOR GAS active Not Available Not Available No t Available Flovent HFA 220 mcg/actuat ion aerosol inhaler 2016 active Medicatio n ID: [id number] Br and Name: Flovent HFA Send Method: E-Prescri bed Subs Allowed: subs [place] Medica tionGener icName: Flovent HFA Not Available Not Available Not Available Advair HFA 115 mcg-21 mcg/actuat ion aerosol inhaler INHALE 2 PUFFS BY MOUTH EVERY 12 HOURS active Not Available Not Available No t Available Mintox Maximum Strength 400 mg-400 mg-40 mg/5 mL oral suspension TAKE 20 ML BY MOUTH IF NEEDED FOR INDIGESTI ON OR HEARTBURN . active Not Available Not Available No t Available FreeStyle Lite Meter kit 2016 active Medicatio n ID: [id number] Br and Name: FreeStyle Lite Meter Sen d Method: E-Prescri bed Subs Allowed: subs [place] Medica tionGener icName: FreeStyle Lite Meter Not Available Not Available Not Available FreeStyle Lite Strips USE 1 EACH 4 TIMES A DAY BEFORE MEALS AND AT NIGHTLY active Not Available Not Available No t Available Lantus Solostar U-100 Insulin 100 unit/mL (3 mL) subcutaneo us pen INJECT 20 UNITS UNDER THE SKIN NIGHTLY AT BEDTIME. active Not Available Not Available No t Available lubiprosto ne 8 mcg capsule active Not Available Not Available Not Available diclofenac 1 % topical gel APPLY 2 G TOPICALLY EVERY 6 (SIX) HOURS. active Not Available Not Available No t Available Senexon-S 8.6 mg-50 mg tablet TAKE 2 TABLETS BY MOUTH AT BEDTIME NEEDED CONSTIPAT ION, PLEASE TAKE EVERY OTHER DAY AT BEDTIME active Not Available Not Available No t Available Brilinta 90 mg tablet TAKE 1 TABLET BY MOUTH 2 TIMES A DAY active Not Available Not Available No t Available magnesium 400 mg (as magnesium oxide) capsule 2016 active Medicatio n ID: [id number] Br and Name: magnesium oxide Sen d Method: E-Prescri bed Subs Allowed: subs [place] Medica tionGener icName: magnesium oxide Not Available Not Available Not Available lidocaine 5 % topical ointment 2016 active Medicatio n ID: [id number] Br and Name: lidocaine Send Method: E-Prescri bed Subs Allowed: subs [place] Medica tionGener icName: lidocaine Not Available Not Available Not Available vitamin B12 1,000 mcg-folic acid 400 mcg sublingual tablet 2016 active Medicatio n ID: [id number] Br and Name: vitamin J21-pxrhu acid Send Method: E-Prescri bed Subs Allowed: subs [place] Medica tionGener icName: vitamin L56-sdope acid Not Available Not Available Not Available Tanzeum 50 mg/0.5 mL subcutaneo us pen injector 2016 active Medicatio n ID: [id number] Br and Name: Tanzeum S end Method: E-Prescri bed Subs Allowed: subs [place] Medica tionGener icName: Tanzeum Not Available Not Available Not Available Jardiance 10 mg tablet 2018 active Medicatio n ID: [id number] Du ration Value: 30 Brand Name: Jardiance Send Method: E-Prescri bed Subs Allowed: subs [place] Medica tionGener icName: Jardiance Not Available Not Available Not Available DeVilbiss PulmoNeb LT Compressor -Nebulizer 2016 active Medicatio n ID: [id number] Br and Name: DeVilbiss PulmoNeb LT Comp-Neb Send Method: E-Prescri bed Subs Allowed: subs [place] Medica tionGener icName: DeVilbiss PulmoNeb LT Comp-Neb Not Available Not Available Not Available Repatha SureClick 140 mg/mL subcutaneo us pen injector INJECT 140 MG SUBCUTANE OUSLY EVERY 2 WEEKS active Not Available Not Available No t Available Anusol-HC 2.5 % topical cream with perineal applicator 2016 active Medicatio n ID: [id number] Br and Name: Anusol-HC Send Method: E-Prescri bed Subs Allowed: subs [place] Medica tionGener icName: Anusol-HC Not Available Not Available Not Available Qvar RediHaler 80 mcg/actuat ion HFA breath activated aerosol 2018 active Medicatio n ID: [id number] Du ration Value: 30 Brand Name: Qvar RediHaler Send Method: E-Prescri bed Subs Allowed: subs [place] Medica tionGener icName: Qvar RediHaler Not Available Not Available Not Available BD Geetha 2nd Gen Pen Needle [...] tablets in a dose pack (Renal Dose) TAKE 1 DOSE BY MOUTH 2 TIMES DAILY. active Not Available Not Available No t Available Vitals Date Recorded Body weight Body mass index (BMI) Body height Provider Name and Address Organization Details Last Updated DateTime 03/10/2024 34847.08 g 33 kg/m2 142.24 cm Roxane Merlos [place] - [facility] 03/10/2024 11:38:17 Social History None recorded. Functional Status None recorded. Mental Status None recorded. Family History Nothing Reported. Medical History No medical history recorded. Gynecological HistoryNo gynecological history recorded. Obstetrics History GPAL:G 0 P 0 0 0 0 Past Encounters Encounter ID Performer Location Encounter Start Date Encounter Closed Date Diagnosis/Indication Diagnosis SNOMED-CT Code Diagnosis ICD10 Code Diagnosis Note [id number] CRISTINA JUAREZ MD [facility] [address] [address] 03/10/2024 11:10:06 03/10/2024 12:30:23 Ear pressure sensation 007060795 H93.8X9 Audiologic al evaluation results: Tympanomet ry: Right Ear:{{Type A Type As* Type Ad Type C Type C, shallow & rounded Ty pe B Type B with large volume Cou ld not maintain a hermetic seal}} Left Ear:{{Type A Type As* Type Ad Type C Type C, shallow & rounded Ty pe B Type B with large volume Cou ld not maintain a hermetic seal}} Allergic rhinitis 842387 04 J30.89 Health Concerns Section Related Observation LastModified by Organization Detai ls LastModified Time None Recorded Concern Status LastModified by Organization Details LastModified Time None Recorded Advance Directives Directive None Recorded Payers Encounter Date Sequence Insurance Name Policy Number Policy Valdovinos Covered Member ID Valdovinos Member ID Guarantor Name 03/10/2024 1 [facility] - DOS ON OR AFTER 2022 - RETIREMENT OPTIONS (MEDICARE REPLACEMENT/AD VANTAGE - HMO) Natali Cortes [id number] Natali Cortes Notes Date Note Type Note Provider Name and Address Organization Details Recorded Time 03/10/2024 text/html 78yo female with allergic rhinitis on immunotherapy presents for evaluation of ear pressure. She reports this started 4 weeks ago, and has improved over the last few days. She reports nasal congestion around the same time. She denies otorrhea or obvious hearing changes. She uses daily Flonase. She cannot tolerate Astelin. She recently had her house fumigated and is wondering if this triggered her allergies. CRISTINA JUAREZ MD [address] [place] [address], [phone], [place] - [facility] 03/10/2024 15:11:38 OBGyn Episode No OBEpisode recorded.
--- OUTSIDE RECORDS SUMMARY | 2024-04-10 10:10 | XMS_ITS | Encounter Summary ---
Author Organization [employer] Address [address] [facility] [address] [place] [address] Care Team Providers Care Inspector Machined Parts Name Role Phone Liset Mitchell MD Primary Care Provider [phone] Reason for Visit * Reason Onset Date Comments Results 10/11/2023 Appointment Request 10/11/2023 Encounter Details Date Type Department Care Team ([facility] Contact Info) Description 10/11/2023 Telephone [facility] [address] [place] [address] Liset Mitchell MD [address] [place] [id number] Results; Appointment Request Social History Tobacco Use [...] a appt in regards to getting a SPECIAL EFFECTS SPECIALIST states is in need documented in this encounter Plan of Treatment Not on file documented as of this encounter Visit Diagnoses Not on filedocumented in this encounter Additional Health Concerns Assessment Noted Time PHQ-9 Depression Total Score: 0 04/13/19 23 10:04 AM EST documented as of this encounter Care Teams Inspector Machined Parts Relationship Specialty Start Date End Date Liset Mitchell MD [address] [place] [address] PCP - General Family Medicine 09/14/20 documented as of this encounter
--- OUTSIDE RECORDS SUMMARY | 2024-04-10 10:10 | XMS_ITS | Encounter Summary ---
Author Organization [employer] Address [address] [facility] [address] [place] [address] Care Team Providers Care Jewel Flat Surfacer Name Role Phone Liset Mitchell MD Primary Care Provider [phone] Reason for Visit * Reason Comments Med Change Request Encounter Details Date Type Department Care Team ([facility] Contact Info) Description 09/08/[address] [facility] [address] [place], [place] [id number] Rubio Blum MD [address] [place] [address] Social History Tobacco Use Types Packs/Day Years [...] documented as of this encounter Care Teams Jewel Flat Surfacer Relationship Specialty Start Date End Date Liset Mitchell MD [address] [place] [address] PCP - General Family Medicine 09/14/20 documented as of this encounter
== END 2024-04-10 10:16 | disposition home or self-care (01) ==
PROVIDERS: PCP Family Medicine; Visit Provider Internal Medicine
DX: I25.10 Atherosclerotic heart disease of native coronary artery without angina pectoris (principal); I25.5 Ischemic cardiomyopathy; E78.5 Hyperlipidemia, unspecified
CPT/HCPCS: 99214; G2211

== ENCOUNTER → 2024-04-10 09:38 | Outpatient (BNVA) | payer OTHER, SELFPAY | PROVIDERS: PCP Family Medicine; Visit Provider Internal Medicine | DX: I25.10 Atherosclerotic heart disease of native coronary artery without angina pectoris (principal); I25.5 Ischemic cardiomyopathy; E78.5 Hyperlipidemia, unspecified | CPT/HCPCS: 99212 ==

== ENCOUNTER 2024-05-30 10:08 | Outpatient (AMB) | payer OTHER, SELFPAY ==
--- NOTE | 2024-05-30 10:16 | A.OFFVIS_ITS ---
Vital Signs 05/30/24 10:17 Height 4 ft 8 in BP 130/68 Blood Pressure Location Lt brachial Position Sitting Pulse 74 Pulse Source Pulse Oximeter Intake Visit Reasons: bmc followup seen on 05/20/24 Gandy Dancer Required: Yes Gandy Dancer Name: MANDEEP [id number] Allergies fluticasone [Flovent HFA] Allergy (Unknown, Verified 03/31/24 07:57) lip swelling lisinopril Allergy (Verified 03/31/24 07:57) Itching umeclidinium [From Incruse Ellipta] Adverse Reaction (Intermediate, Verified 03/31/24 07:57) Chest Pain empagliflozin [Jardiance] Adverse Reaction (Unknown, Verified 03/31/24 07:57) vaginal itch metformin Adverse Reaction (Unknown, Verified 03/31/24 07:57) stomach pain sitagliptin [Januvia] Adverse Reaction (Unknown, Verified 03/31/24 07:57) stomach pain acetaminophen [From Percocet] Adverse Reaction (Verified 03/31/24 07:57) Nausea and Vomiting hydrocodone [From Vicodin] Adverse Reaction (Verified 03/31/24 07:57) Nausea and Vomiting ibuprofen [From Motrin] Adverse Reaction (Verified 03/31/24 07:57) Stomach Upset oxycodone [From Percocet] Adverse Reaction (Verified 03/31/24 07:57) Nausea and Vomiting Medication List - Last Reconciled 05/30/24 by Marlene Mary ASSISTANT SHIFT SUPERVISOR-C acetaminophen 500 mg PO Q6H PRN albuterol sulfate 90 mcg/actuation (Ventolin HFA) 2 puffs PO Q4H PRN 30 days amlodipine 5 mg PO DAILY blood sugar diagnostic (OneTouch Verio test strips) As directed blood-glucose meter (OneTouch Verio Meter) As directed budesonide 32 mcg/actuation 2 sprays intranasal DAILY 30 days budesonide 0.5 mg (2 mL) inhalation BID 30 days fluticasone propion-salmeterol 115-21 mcg/actuation (Advair HFA) 2 puffs PO Q12H inhalational spacing device (Aerochamber MV spacer) As directed insulin glargine (Lantus Solostar U-100 Insulin) 20 units subcut DAILY ipratropium bromide intranasal ipratropium-albuterol 0.5 mg-3 mg(2.5 mg base)/3 mL 3 mL inhalation Q6H PRN lancets (OneTouch UltraSoft Lancets) As directed latanoprost 0.005% 1 drp ophthalmic (eye) BEDTIME lubiprostone (Amitiza) 8 mcg PO BID 30 days pen needle, diabetic As directed pioglitazone 45 mg PO DAILY sennosides-docusate sodium 8.6-50 mg (Senna with Docusate Sodium) 2 tab-caps (2 x 8.6-50 mg) PO BEDTIME PRN 60 days sertraline 50 mg PO DAILY simethicone (Gas Relief Extra Strength) 0 mg PO spironolactone 25 mg PO DAILY HPI HPI bmc followup seen on 05/20/24: Details: Natali is a 78-year-old female with past medical history of hypertension, hyperlipidemia, diabetes, sleep apnea, multivessel CAD status post staged PCI of the RCA and LAD/OM, ischemic cardiomyopathy who presents for follow-up. Today she reports she was in the emergency room recently with hand and foot pain. Records reviewed and indicate neuropathy. She was not having cardiac issues at that time. She tells me that her blood pressure has been running high causing her much concern. Upon review of her medications it is not entirely clear what she is taking. She tells me she stopped amlodipine since it causes leg swelling. Plavix is no longer on her list for unclear reason. She believes she is taking Aldactone but is unsure. She is not taking Repatha since it gives her high blood pressure. She has not been having any chest discomfort at rest or with activity. Her breathing is comfortable, no PND, orthopnea. No lightheadedness, presyncope, syncope, falls. She has her TERMINAL SUPERVISOR with her today. [facility] Medical History Dysphagia Tracheobronchomalacia ROXIE (obstructive sleep apnea) Essential hypertension Atherosclerotic cardiovascular disease Urinary incontinence Obese Dyslipidemia Anxiety and depression Gastric pain Sinusitis Chronic allergic rhinitis Asthma Cough Cough Diabetes mellitus Fibromyalgia Pulmonary nodules Surgical History H/O heart artery stent Hx of esophagogastroduodenoscopy History of bronchoscopy Hx of colonoscopy H/O left knee surgery H/O breast biopsy H/O: hysterectomy Family History Father Hypertension Mother Hypertension Diabetes Daughter Diabetes Brother No problems noted. Social History Household Members: Children Unable to assess alcohol history related to: Unknown Alcohol intake: former Patient Tobacco Use Status: Never used Tobacco Second Hand Smoke Exposure: Yes Review of Systems Const All systems reviewed & are unremarkable except as noted in HPI and below Denies weakness ENT Denies dizziness Card Denies chest pain, Denies chest pain with activity, Denies syncope, Denies rapid heart rate, Denies pedal edema, Denies edema, Denies leg edema, Denies lightheadedness, Denies palpitations, Denies dyspnea, Denies dyspnea on exertion and Denies orthopnea Resp Denies cough, Denies dyspnea and Denies dyspnea on exertion GI Denies hematochezia and Denies change in stool character Musc Denies abnormal gait, Denies muscle cramps, Denies muscle weakness, Denies numbness, Denies radiating pain into limb and Denies tingling Neuro Denies abnormal gait, Denies dizziness, Denies syncope, Denies numbness, Denies tingling and Denies weakness Endo Denies palpitations Physical Exam Vital Signs: Last Vital Signs Pulse 74 05/30/24 10:17 BP 130/68 05/30/24 10:17 Const General: cooperative, healthy appearing, comfortable and no acute distress Orientation/consciousness: patient oriented x3 Neck Neck: Yes normal visual inspection Resp Effort & Inspection: normal respiratory effort Auscultation: clear to auscultation bilaterally, no crackles, no rales, no rh onchi and no wheezes Cardio Rate: regular rate Rhythm: regular rhythm Heart sounds: S1 normal heart sound present, S2 normal heart sound present, no gallops, no murmurs and no rubs Skin General skin exam: no rashes or lesions noted Neuro General: patient oriented x3 Extrem General: Yes normal to inspection, No no pedal edema and No calf tenderness Psych Appearance: grossly normal Mental Status: mental status grossly normal Speech and movement: Normal speech and movement present Results Reviewed Results Reviewed: Status post PCI to RCA/LAD/OM2 from June 2022. Echocardiogram, 06/2022 [facility] with LVEF of 40-45% with inferior basal, inferior septal hypokinesis; rthz-hv-fbioclux mitral regurgitation. In the most recent echocardiogram from 03/2024, LVEF is 45%. Basal inferior/inferoseptal hypokinesis. Otherwise unremarkable. Assessment & Plan Assessment & Plan (1) Essential hypertension: Code(s): I10 - Essential (primary) hypertension Category: Medical Plan: History of hypertension with blood pressure goal less than 130/80. She tells me it has been running high and that she has not been taking the amlodipine. Will remove amlodipine from her list, restart on beta-myra. Notes indicate she had been on metoprolol in the past. Unclear why it was stopped. Will start carvedilol 3.125 mg b.i.d. for her cardiomyopathy and hypertension. Will have her continue you tone 25 mg b.i.d.. Reviewed low-salt diet. Activity as tolerated. Blood pressure check in our office 2 weeks. Further med adjustments will be made at that time if needed. (2) Ischemic cardiomyopathy: Code(s): I25.5 - Ischemic cardiomyopathy Category: Medical Plan: History of CAD and mild ischemic cardiomyopathy. Last echo 03/31/24 shows EF 45%, basal inferior and inferior septal hypokinesis. She is not fluid overloaded on exam. Her current med list only includes Aldactone. Restart carvedilol. Records indicate allergy to ARMAND inhibitor. Signs and symptoms of heart failure reviewed with her. (3) Atherosclerotic cardiovascular disease: Code(s): I25.10 - Atherosclerotic heart disease of [place] coronary artery without angina pectoris Category: Medical Plan: History of multivessel CAD. Coronary artery bypass grafting previously recommended and it seems like she declined. She then underwent staged PCI of the RCA and LAD/OM. Will request those cardiac catheterization records to be scanned into our chart. She currently has no anginal symptoms. She is not on aspirin for unclear reason. Last note indicates she was on Plavix. Current med list does not including Plavix so I will restart it. The importance indications reviewed with her. She says she is intolerant to statins. She was on Repatha and reported multi side effects. Will reorder Praluent, patient informed. Restarting carvedilol. Signs and symptoms of angina reviewed with her. Cardiology office visit 6 months, sooner if needed. (4) Other and unspecified hyperlipidemia: Code(s): E78.5 - Hyperlipidemia, unspecified Category: Medical Plan: [place] LDL goal less than 70. She has not been compliant with her Repatha. I am reordering the Praluent as above. Plan Time spent on chart review, documentation, interview assessment Medications: New clopidogrel Blood thinner for heart 75 mg PO DAILY 90 tabs 3RF alirocumab (Praluent Pen) No longer taking Repatha - reports side effects 75 mg subcut Q14D 6 mL 3RF 90 days carvedilol must administer with a meal/food BP medication 3.125 mg PO BID 60 tabs 5RF Coding Level of Care Code Est Pt Level 4 (83842) Complex EM visit Add On G2211 Diagnoses Essential hypertension I10 Ischemic cardiomyopathy I25.5 Atherosclerotic cardiovascular disease I25.10 Other and unspecified hyperlipidemia E78.5 Time Spent (min) 32
[2024-05-30 10:17] VITALS: BP 130/68; PULSE 74
--- OUTSIDE RECORDS SUMMARY | 2024-05-30 11:32 | XMS_ITS | Encounter Summary ---
Author Organization [employer] Address [address] [facility] [address] [place] [address] Care Team Providers Care Spout Liner Name Role Phone Liset Mitchell MD Primary Care Provider [phone] Reason for Visit * Reason Comments Med Change Request Encounter Details Date Type Department Care Team ([facility] st Contact Info) Description 10/26/2023 Refill [facility] MED & PEDS [address] [place], [place] [phone] Liset Mitchell MD [address] [place], [place] [phone] Social History Tobacco Use Types Packs/Day Years [...] as of this encounter Plan of Treatment Upcoming Encounters Date Type Department Care Team (Late st Contact Info) Description 05/30/2024 1:00 PM EDT Office Visit [facility] MED & PEDS [address] [place] [address] documented as of this encounter Visit Diagnoses Not on filedocumented in this encounter Additional Health Concerns Assessment Noted Time PHQ-9 Depression Total Score: 0 04/13/19 23 10:04 AM EST documented as of this encounter Care Teams Spout Liner Relationship Specialty Start Date End Date Liset Mitchell MD [address] [place] [address] PCP - General Family Medicine 09/14/20 documented as of this encounter
--- OUTSIDE RECORDS SUMMARY | 2024-05-30 11:32 | XMS_ITS | Clinical Summary ---
Author Organization [employer] Address [address] [facility] 7[address] [place] [address] Care Team Providers Care Partner Alliance Manager Name Role Phone Liset Mitchell MD Primary Care Provider [phone] Allergies Active Allergy Reactions Criticality Noted Date [...] 11 10/26/19 23 Active Continuous Blood Gluc [facility] Worker (FreeStyle Aristides reader) deviceIndication s:Type 2 diabetes [...] meal, and at bedtime. 2 each 10/26/19 23 Active Myrbetriq 25 MG 24 hr tabletIndication [...] mL 11 05/25/19 24 Active nystatin (Mycostatin) [id number] UNIT/ML suspension TAKE 1ML BY MOUTH 4 [...] if negative side effects begin. F/u with Branch Service Specialist for review of heart medication. Labs: Rapid [...] bisoprolol, told her to talk with her business consult as she has hx of CAD. Assessment [...] Encounters Date Type Department Care Team Description 05/29/2024 Telephone [facility] MEDICINE [address] [place] [phone] Liset Mitchell MD Nurse Triage 05/21/2024 Telephone [facility] CHC MED & PEDS [address] [place], [place] [phone] Liset Mitchell MD Nurse Triage 03/13/[address] [address] Liset Mitchell MD Appointment Request 03/13/2024 Orders Only GENERIC EXTERNAL DATA DEPARTMENT Provider, Generic External Data 03/13/[address] [address] Liset Mitchell MD Nurse Triage from Last 3 Months Immunizations Name Administration [...] 02/25/2024 1:49 PM EST Plan of Treatment Upcoming Encounters Date Type Department Care Team (Late st Contact Info) Description 05/30/2024 1:00 PM EDT Office Visit [facility] MED & PEDS [address] [place] [phone] Health Maintenance Due Date Last Done Comments [...] 02/28/2025 02/29/2024 Depression Screening 02/28/2025 02/29/2024, 02/28/19 SDOH Screening 02/28/2025 02/29/2024 DTaP/Tdap/Td Vaccines (4 [...] AUTO DIFFERENTIAL Routine 03/13/2024 12:34 PM EST LIPID PANEL, STANDARD Routine 10/10/2023 2:01 PM EDT POCT GLYCATED HEMOGLOBIN, TOTAL Routine 08/03/2023 10:59 AM EDT Type 2 diabetes mellitus with microalbuminuria, with long-term current use of insulin ([facility]) from Last 3 Months or Most Recently Relevant to Health Maintenance Results * OBSX1 (03/13/2024 1:30 PM EST) OBS1 NEGATIVE NEGATIVE [facility] 03/13/2024 1:30 PM EST 03/13/2024 1:33 PM EST us Generic External Data Provider LAB BLOOD ORDERAB LES Final Result [facility] [address] [place] [phone] * CBC auto differential (03/13/2024 12:34 PM EST) Pathologist [facility] White Blood Count 6.9 4.8 - 10.8 X10*3/uL [facility] Red Blood Count 4.46 4.20 - 5.50 X10*6/uL [facility] Hemoglobin 13.8 12.0 - 16.0 g/dl [facility] Hematocrit 39.9 37.0 - 47.0 % [facility] Mean Corpuscular Volume 89.5 80.0 - 98.0 fL [facility] Mean Corpuscular Hemoglobin 30.9 27.0 - 33.0 pg [facility] Mean Corpuscular HGB Conc 34.6 31.0 - 35.0 g/dl [facility] Red Cell Distribution Width 12.8 11.0 - 16.0 % [facility] Platelet Count 200 160 - 400 X10*3/uL [facility] Mean Platelet Volume 10.6 9.4 - 12.3 fL [facility] Neutrophils Percent Auto 69.2 45 - 73 % [facility] Imm Gran Pct Auto 0.4 0.0 - 0.4 % [facility] Lymphocytes Percent Auto 22.4 20 - 40 % [facility] Monocytes Percent Auto 6.4 2 - 11 % [facility] Eosinophils Percent Auto 0.9 0 - 4 % [facility] Basophils Percent Auto 0.7 0 - 2 % [facility] NRBC Pct Auto 0.0 0.0 - 0.2 /100WBC [facility] Neutrophils Absolute Auto 4.7 2.0 - 8.3 x10*3/uL [facility] Imm Gran Abs Auto 0.03 0.00 - 0.03 X10*3/uL [facility] Lymphocytes Absolute Auto 1.5 1.2 - 4.9 X10*3/uL [facility] Monocytes Absolute Auto 0.4 0.1 - 1.2 X10*3/uL [facility] Eosinophils Absolute Auto 0.1 0.0 - 0.4 X10*3/uL [facility] Basophils Absolute Auto 0.1 0.0 - 0.2 X10*3/uL [facility] NRBC Abs Auto 0.000 0.0 - 0.012 X10*3/uL [facility] 03/13/2024 12:3 4 PM EST 03/13/2024 12:38 PM EST us Generic External Data Provider LAB BLOOD ORDERAB LES Final Result Performing Organization Address City/State/[facility] Co de Phone Number [facility] [address] [place] [phone] * Urinalysis w/reflex microscopic (03/13/2024 12:34 PM EST) Color Urine Yellow [facility] Appearance Urine Clear [facility] PH 6.0 5.0 - 9.0 [facility] Glucose Urine UA Negative Negative mg/dL [facility] Urine Blood Negative Negative [facility] Specific [place] - Urine <=1.005 1.005 - 1.025 [facility] Urine Protein Negative Neg-Trace mg/dL [facility] Urine Ketones Negative Negative mg/dL [facility] Nitrite Urine Negative Negative [facility] Leukocyte Esterase Urine Negative Negative [facility] 03/13/2024 12:3 4 PM EST 03/13/2024 12:38 PM EST Narrative [facility] - 03/13/2024 12:42 PM EST [id number], Clean Catch Generic External Data Provider LAB URINE ORDERAB LES Final Result Performing Organization Address [facility] Co de Phone Number [facility] [address] [place] [phone] * Prothrombin Time-INR (03/13/2024 12:34 PM EST) Prothrombin Time 11.2 10.9 - 12.4 SEC [facility] INTERNATIONAL NORM RATIO 1.0 0.9 - 1.1 [facility] Comment:INTERNATIONAL NORMAL IZED RATIO (INR) REFERENCE [...] ORDERAB LES Final Result Performing Organization Address [facility] Co de Phone Number [facility] [address] [place] [phone] * (ABNORMAL) Comprehensive Metabolic Panel (03/13/2024 12:34 PM EST) Sodium 142 135 - 145 mmol/L [facility] Potassium 4.7 3.3 - 5.1 mmol/L [facility] Chloride 111(H) 96 - 108 mmol/L [facility] Carbon Dioxide 27 22 - 29 mmol/L [facility] Anion Gap 9(L) 12 - 20 [facility] Urea Nitrogen (BUN) 21(H) 9 - 16 mg/dL [facility] Creatinine, Serum 0.77 0.5 - 1.4 mg/dL [facility] Creatinine Clr Calc Pharmacy 46.0 [facility] Comment:Provided height and weight: 142.24 cm,66.5 kg.eGFR (calculated from the MDRD study equation) and eCrCl(calculated from the Cockcroft-Gault equation) are based ondifferent parameters and may not yield comparable results.If eCrCl result is absurd, please check patient'sheight/weight. Estimated Glomerular Filt Rate >60 [facility] Comment:Chronic Kidney Disea se: Estimated GFR < 60 mL/min/[id number] Kidney Disease: Estimated GFR < 15 mL/min/1.73m2 Glucose 110 60 - 115 mg/dL [facility] Calcium 9.4 8.4 - 10.2 mg/dL [facility] Bilirubin, Total 0.3 0.0 - 1.0 mg/dL [facility] Aspartate Amino Transferase 27 5 - 31 U/L [facility] Alanine Aminotransferase 26 0 - 31 U/L [facility] Total Protein 7.3 6.5 - 8.0 g/dL [facility] Albumin Level 4.0 3.5 - 5.0 g/dL [facility] Alkaline Phosphatase 54 39 - 117 U/L [facility] 03/13/2024 12:3 4 PM EST 03/13/2024 12:38 PM EST us Generic External Data Provider LAB BLOOD ORDERAB LES Final Result [facility] [address] [place], [place] [phone] * (ABNORMAL) Lipid Panel, Standard (10/10/2023 2:01 PM EDT) Triglycerides 158(H) <150 mg/dL [facility] Comment:Desirable Triglyceri de: less than 150 mg/dLBorderline High Triglyceride 150-199 mg/dLHigh Triglyceride: 200-499 mg/dLVery High Triglyceride: greater than or equal to 5OO mg/dL Cholesterol 233(H) <200 mg/dL [facility] Comment:Desirable Cholestero l: less than 200 mg/dLBorderline High Cholesterol: 200-239 mg/dLHigh Cholesterol: greater than 239 mg/dL LDL Cholesterol Calculated 148(H) <100 mg/dL [facility] Comment:Desirable LDL: less than 100 mg/dLNear Optimal/Above Optimal LDL: 110- 129 mg/dLBorderline High LDL: 130-159 mg/dLHigh LDL: 160-189 mg/dLVery High LDL: greater than or equal to 190 mg/dL HDL Cholesterol 54 >40 mg/dL [facility] Comment:Desirable HDL: grea ter than 40 mg/dL Note: This HDL assay may give artificially low results in patients with liver disease. 10/10/2023 2:01 PM EDT 10/10/2023 2:01 PM EDT us Generic External Data Provider LAB BLOOD ORDERAB LES Final Result [facility] [address] [place] [phone] * (ABNORMAL) POCT HGB A1C (08/03/2023 10:59 AM EDT) Hemoglobin A1C 7.0(A) 4.0 - 6.0 % QC Media Lot # [id number] Lot# Expiration Date [id number] Blood 08/03/2023 10:5 9 AM EDT us Liset Mitchell MD POINT OF CARE TEST ENTER/EDIT ORDERABLES Final Result from Last 3 Months or Most Recently Relevant to Health Maintenance Insurance [id number] [phone] [facility] Care Teams Partner Alliance Manager Relationship Specialty Start Date End Date Liset Mitchell MD [address] [place] [phone] PCP - General Family Medicine 09/14/20
--- OUTSIDE RECORDS SUMMARY | 2024-05-30 11:32 | XMS_ITS | Encounter Summary ---
Author Organization [employer] Address [address] [facility] [address] [place] [address] Care Team Providers Care Acquisition Marketing Coordinator Name Role Phone Liset Mitchell MD Primary Care Provider [phone] Reason for Visit * Reason Comments Med Change Request Encounter Details Date Type Department Care Team ([facility] st Contact Info) Description 09/08/2023 Refill [facility] CHC MED & PEDS [address] [place], [place] [phone] Rubio Blum MD [address] [place], [place] [phone] Social History Tobacco Use Types Packs/Day Years [...] t he electric, gas, oil or water [employer] threatened to shut off services in your [...] Description 05/30/2024 1:00 PM EDT Office Visit [facility] MED & PEDS [address] [place] [address] documented as of this encounter Visit Diagnoses Not on filedocumented in this encounter Additional Health Concerns Assessment Noted Time PHQ-9 Depression Total Score: 0 04/13/19 23 10:04 AM EST documented as of this encounter Care Teams Acquisition Marketing Coordinator Relationship Specialty Start Date End Date Liset Mitchell MD [address] [place] [address] PCP - General Family Medicine 09/14/20 documented as of this encounter
--- OUTSIDE RECORDS SUMMARY | 2024-05-30 11:32 | XMS_ITS | Data Portability ---
Author Organization [employer] [employer] [facility] [employer] Address [address] [place] [id number] Care Team Providers Care Account Development Specialist Name Role Phone HIM CCA OTHER [facility] Primary Care Provider Assessment Encounter Date Assessment Date Assessment LastModified by Organization Details LastModified Time 11/29/2023 11/29/2023 As noted, we orlando mclaughlin called to see this patient regarding concerns of umbilical rash. Evaluation in the field was performed by my dba colleague, as noted above, I provided real-time [...] worsening serious symptoms, particularlyfever, chills, abdominal pain [email or web address] Not available 11/29/2023 16:22:01 01/30/2024 01/30/2024 I provided real -time medical direction via phone for this encounter and was available for additional phone-based assistance as needed. I have reviewed and agree with the Assessment and Plan as documented by the Bottom Filler. Patient given the opportunity to ask questions. Our service contacted for an assessment of: Non adherence with medication to treat hypertension As per above, patient was prescribed amlodipine by either supervisory training specialist PCP and is not adherent to medication given the fact this previously caused a known side effect of peripheral edema. Patient states she will not take medications. Denies chest pain, shortness of breath, dyspnea on exertion, any focal neurologic deficits. Per dba on the scene, vital signs are stable [...] 01/30/2024 21:10:40 02/08/2024 02/08/2024 As noted, we wer e called to see this patient regarding concerns of ___ Evaluation in the field was performed by my dba colleague, as noted above, I provided real-time [...] On the physical exam done by the dba, he does not see any sores inside the bilateral Nares. The patient has no shortness of breath. The patient has no respiratory distress. Lung sounds were clear. She had a basically normal exam. He says it is quite dry and hot roll inspector the house. I wonder if there is [...] was discussed with the patient via the dba. An classroom monitor was used. Pt instructed to have an [...] worsening serious symptoms, particularly fever, excessive bleeding Not available 02/08/2024 11:20:45 03/26/2024 03/26/2024 Ms. [...] Assessment and Plan as documented by the Bottom Filler. We discussed the diagnostic uncertainty of home [...] of instruction. [email or web address] Not available 03/26/2024 21:24:50 05/21/2024 05/21/2024 As noted, we orlando e called to see this patient regarding concerns of high blood pressure. Evaluation in the field was performed by my dba colleague, as noted above, I provided real-time direction and supervision for this visit. The evaluation revealed 78y F with DM, HTN, dysuria presenting w elevated blood pressure today and after ER visit for severe HTN yesterday. Only on amlodipine 5mg for BP management based on pill bottles, last filled Feb 28 Qty 90 per medic. Based on pill count, expect she is taking 5mg most days, still has about 20. She called PCP today but doesn't have appt yet. Rec'd double amlodipine to 10mg, call back PCP to notify of BP, dose change and need for repeat visit and upcoming need for refill given dose increase. Counseled to call back and go back to 1 tab if develops dizziness. Also c/o dysuria and will sned urine for culture Impression: HTN, uncontrolled; dysuria Plan: double home amlodipine from 5mg to 10mg, precautions, send urine for culture Primary care, consider f/u in next 5-7d to check BP, update med plan Disposition: We discussed the diagnostic uncertainty of home visits and the risk associated with this. In this case, the patient and I felt this to be an acceptable and reasonable amount of risk given the benefit of avoiding an ED visit. We discussed the need to seek care urgently/emergently in the setting of any new or worsening serious symptoms, particularlyshob, chest pain, dizziness, falls, confusion, headaches, vision changes. [email or web address] Not available 05/21/2024 19:34:14 Plan of Treatment Reminders Order Date Submit Date Provider Last Modified By Organization Details Last Modified Time Details Appointments None recorded. Lab culture, urine 2024 025 [facility] (Centralized Electronic Ordering - All Locations), Patient Can Go To The Location Of Their Choice, [address] 10:06:03 urinalysis, dipstick 2024 025 [facility], [address] [place] [address], [phone] 19:53:02 BMP, serum or plasma [address], [address] [place] [address], [phone] 21:24:08 rapid SARS CoV 2 Ag, QL IA, respiratory specimen [address], [address] [place] [address], [phone] 21:24:08 rapid flu (A+B) [address], [address] [place] [address], [phone] 21:24:08 Referral None recorded. Procedures None recorded. Surgeries None recorded. Imaging None recorded. Medication Orders ondansetron HCl (PF) 4 mg/2 mL injection solution [address]/Pharmacy #[id number], [address] [place], [address], 21:24:08 sodium chloride 0.9 % intravenous solution 2024 025 [id number] [place], [address], 21:24:08 ondansetron 4 mg disintegrat ing tablet 2024 025 [id number] [address] [place], [address], 5 21:24:10 mupirocin 2 % topical ointment 2023 024 [facility]/Pharmacy #[id number], [address] [place], [address], 4 10:59:37 clotrimazol e 1 % topical cream 2023 024 [facility]/Pharmacy #[id number], [address] [place], [address], 4 10:20:27 Patient TargetsNo targets recorded. Patient InstructionsNo instructions recorded. Reason for Referral None Reported. Results Created Date Observation Date Name Description Value Unit Range Abnormal Flag Note LastModifiedBy Organization Detail LastModifiedTime 03/26/1903/26/2024 rapid SARS CoV 2 Ag, QL IA, respi rator y speci men rapid SARS CoV 2 Ag, QL IA, respiratory specimen negati ve Not Available [facility] - [facility] ed [address] [place] [address], [phone] 03/26/2024 20:33:01 03/26/19 25 03/26/2024 rapid flu (A+B) Flu negati ve Not Available Main - [facility] ed [address] [place] [address], [phone] 03/26/2024 20:33:02 05/22/19 25 05/23/2024 URINE CULTU RE,CO MPREH ENSIV E urine culture,comp rehensive Final report Not Available [facility] ([facility]) [address] [place], [address], 05/23/2024 10:06:03 05/22/19 25 05/23/2024 URINE CULTU RE,CO MPREH ENSIV E result 1 COMMEN T Mixed uroge nital ty 10,00 0-25, 000 colon y formi ng units per mL Not Available [facility] ([facility]) [address] [place], [address], 05/23/2024 10:06:03 Result Notes None recorded. Medical Equipment None Reported. Allergies Allergen ID Allergen Name Allergen Category Reaction Reaction Severity Criticality Documentation Date Start Date Code Code System Note Provider Name and Address Organization Details Recorded Time 62198 metoprolo l Not available Not available Not available Not available 01/30/2024 6918 RxNorm Not Available [facility] 17:06:26 6413 ezetimibe medicatio n Not available Not available Not available 11/29/2023 95280 8 RxNorm Not Available [facility] 13:58:51 6414 fluticaso ne Not available Not available Not available Not available 11/29/2023 74405 RxNorm Not Available [facility] 13:58:51 6415 hydrocodo ne Not available Not available Not available Not available 11/29/2023 5489 RxNorm Not Available [facility] 17:06:26 6416 umeclidin ium medicatio n chest pain Not available Not available 11/29/2023 74729 14 RxNorm Giorgio Pathak MD [address] [place] [address],[address] [facility], [place], [phone], [place] [employer] 16:24:27 6417 lisinopri l medicatio n Not available Not available Not available 11/29/2023 98907 RxNorm Not Available [facility] production 13:58:51 [...] Ultra-Fine Mini Pen Needle 31 gauge x /16 USE DIRECTED active Not Available Not Available [...] Januvia 100 mg tablet TOME CINDY TABLETA LOS D active Not Available Not Available [...] Not Available Not Available No t Available Praluent Pen 75 mg/mL subcutaneous pen injector active Not Available Not Available Not Available Repatha SureClick 140 mg/mL subcutaneous pen [...] Available Not Available Not Available Dexcom G7 Naphthol Soaping Machine Operator USE DIRECTED active Not Available Not Available No t Available Dexcom G7 Sensor device USE DIRECTED ..CHANGE EVERY 14 DAYS active Not Available Not Available No t Available Vitals Date Recorded Oxygen saturation Oxygen saturation in Arterial blood by Pulse oximetry Heart rate Respiratory rate Body temperature Body weight Systolic blood pressure Diastolic blood pressure Provider Name and Address Organization Details Last Updated DateTime 4 98 % 98 % 97 /min 16 /min 98.2 [degF] 66936.0 24 g 164 mm[Hg] 72 mm[Hg] Not Available [email or web address] 4 10:16:47 Date Recorded Body temperature Body weight Oxygen saturation Oxygen saturation in Arterial blood by Pulse oximetry Respiratory rate Heart rate Systolic blood pressure Diastolic blood pressure Provider Name and Address Organization Details Last Updated DateTime 4 97.4 [degF] 08588.8 8 g 99 % 99 % 16 /min 86 /min 162 mm[Hg] 84 mm[Hg] Not Available [email or web address] 4 21:07:32 Date Recorded Oxygen saturation Oxygen saturation in Arterial blood by Pulse oximetry Heart rate Respiratory rate Body temperature Body weight Systolic blood pressure Diastolic blood pressure Provider Name and Address Organization Details Last Updated DateTime 4 99 % 99 % 78 /min 16 /min 98.2 [degF] 79450.8 8 g 146 mm[Hg] 80 mm[Hg] Not Available [email or web address] 4 10:51:35 Date Recorded Body height Heart rate Respiratory rate Oxygen saturation Oxygen saturation in Arterial blood by Pulse oximetry Body weight Body temperature Systolic blood pressure Diastolic blood pressure Provider Name and Address Organization Details Last Updated DateTime 5 144.78 cm 83 /min 18 /min 97 % 97 % 91533.0 64 g 98.4 [degF] 153 mm[Hg] 67 mm[Hg] Not Available [facility] 5 20:31:05 Date Recorded Respiratory rate Heart rate Oxygen saturation Oxygen saturation in Arterial blood by Pulse oximetry Systolic blood pressure Diastolic blood pressure Provider Name and Address Organization Details Last Updated DateTime 5 16 /min 83 /min 98 % 98 % 160 mm[Hg] 80 mm[Hg] Not Available [facility] 5 19:06:02 Social History None recorded. Functional Status None [...] 1785 Sosa Donnelly MD Main - [facility] [address] [place] [phone] 07/20/2021 17:44:53 11/22/2021 12:52:06 Dysuria 86190979 R30.9 2428 Holland Lewis MD Main - [facility] [address] [place] [address] 08/24/2021 17:49:18 11/17/2021 12:06:10 Adverse reaction to drug 60523314 T50.905A Reports some nausea and fatigue immediatel y after taking hydroxyzin e. Denies palpitatio ns (as in the expect note), chest pain, or chest pressure. Asymptomat ic now and feels back at baseline. Advised she go back to taking the hydroxyzin e once a day and communicat e all medication changes closely with primary care provider. 3329 Narendra Hassan MD Main - [facility] [address] [place] [phone] 10/08/2021 16:48:26 11/21/2021 12:43:51 Dysuria 75482310 R30.9 Will await culture prior to treatment given equivocal U/A [id number] Nataliia Grewal MD Main - [facility] [address] [place] [phone] 07/13/2022 17:00:14 07/14/2022 08:55:34 Inguinal pain 749692693 R10.2 [id number] Holland Lewis MD Main - [facility] [address] [place] [phone] 08/24/2022 12:05:17 08/24/2022 22:29:37 Wheezing 95104764 R06.2 suspect viral-william kimberley bronchospa sm. Patient had some improvemen t with a short course of steroids prescribed last week but symptoms persist. No evidence of bacterial superinfec tion based on available data. Offered DuoNeb and a recurrent course of steroids, but patient declined. She will seek further care with her PCP. Red flags reviewed by dba and patient in understand ing. [id number] González Campo MD Main - [facility] [address] [place] [phone] 12/12/2022 18:24:35 12/13/2022 22:28:07 Facial swelling 589425103 R22.0 70228 Rich Lee MD Main - [facility] [address] [place] [phone] 03/26/2023 19:07:48 03/27/2023 10:52:20 Pain in right foot [id number] 87241 M79.671 This 77-year-ol d female with type 2 diabetes got her right foot caught in a screen today, and she thinks it cut her foot. The dba found no visual trauma to her right foot. I recommende d observatio n. She will follow-up with her PCP for any ongoing problems with her foot. The patient agreed with this plan. [id number] Nataliia Grewal MD Main - [facility] [address] [place] [phone] 07/17/2023 13:48:23 07/17/2023 17:51:58 Shoulder pain 82369296 M25.519 [id number] González Campo MD Main - [facility] [address] [place] [phone] 08/10/2023 16:32:57 08/10/2023 21:11:42 Seasonal allergic rhinitis 932351303 J30.2 13764 Luci Corey MD Main - [facility] [address] [place] [phone] 10/22/2023 19:42:26 10/22/2023 21:01:10 Nausea 764269971 R11.0 11382 Giorgio Pathak MD Main - [facility] [address] [place] [phone] 11/29/2023 10:16:41 11/30/2023 00:42:40 Erythematous rash 928858054 R21 could be cellulitis vs fungal process [id number] Nataliia Grewal MD Main - [facility] [address] [place] [phone] 01/30/2024 21:07:30 01/31/2024 08:54:42 Essential hypertension 75741400 I10 22600 PRAMOD SIMONS MD Main - [facility] [address] [place] [phone] 02/08/2024 10:51:33 02/08/2024 14:05:30 Lesion of nasal mucosa 885506964 J34.89 70452 GENE BO MD Main - [facility] [address] [place], [place] [phone] 03/26/2024 20:30:34 03/26/2024 23:58:55 Nausea and vomiting 67773668 R11.2 [id number] Luci Corey MD Main - [facility] [address] [place] [phone] 05/21/2024 19:06:00 05/21/2024 21:57:41 Hypertensive disorder 78630154 I10 Abnormal urinalysis 1672 33815 R82.90 Dysuria 07140791 R30.0 Health Concerns Section Related Observation LastModified by Organization Detai ls LastModified Time None Recorded Concern Status LastModified by Organization Details LastModified Time None Recorded Advance Directives Directive None Recorded Payers Encounter Date Sequence Insurance Name Policy Number Policy Valdovinos Covered Member ID Valdovinos Member ID Guarantor Name 11/29/2023 1 [facility] - DOS ON OR AFTER 2022 - DUAL ELIGIBLE - CORRECTION OPTIONS AND ONE CARE (MEDICARE REPLACEMENT/ADV ANTAGE - HMO) Natali Cortes [id number] Natali Cortes 01/30/2024 1 [facility] [employer] - DOS ON OR AFTER 2022 - DUAL ELIGIBLE - CORRECTION OPTIONS AND ONE CARE (MEDICARE REPLACEMENT/ADV ANTAGE - HMO) Natali Cortes [id number] Natali Cortes 02/08/2024 1 [facility] - DOS ON OR AFTER 2022 - DUAL ELIGIBLE - CORRECTION OPTIONS AND ONE CARE (MEDICARE REPLACEMENT/ADV ANTAGE - HMO) Natali Ai Cortes [id number] Natali Cloud Sebastian 03/26/2024 1 [facility] - DOS ON OR AFTER 2022 - DUAL ELIGIBLE - CORRECTION OPTIONS AND ONE CARE (MEDICARE REPLACEMENT/ADV ANTAGE - HMO) Natali Ai Cortes [id number] Natali Carter TomLoni Sebastian 05/21/2024 1 [facility] - DOS ON OR AFTER 2022 - DUAL ELIGIBLE - CORRECTION OPTIONS AND ONE CARE (MEDICARE REPLACEMENT/ADV ANTAGE - HMO) Natali Ai Cortes [id number] Natali Carter Ai Cortes Notes Date Note Type Note Provider Name and Address Organization Details Recorded Time 11/29/2023 text/html HPI: Multiple listed drugh intolerances:Umeclidni [...] Evaluation and culture if indicated treatment as required.Hpattgatito RNreviewed info ...................... ...................... ...................... ...................... ...................... ...................... ......... Bottom Filler Note From Salazar Jean-Baptiste: Pt co reddish/pnik colored sore in Umbilicus, pt sts she noticed last even when shower Pt sts had leaking fluid however today no discharge or blood. Pt sts is painful when sh bends over. Pt denies fever, NVD, CP, SOB, Headache, dizziness or other abdominal joe Baseline vitals assessed, Photos taken of wound/insect bite and uploaded to [employer] ap febrile, Some pain on palpation. [facility] contacted and bacitracin applied and x for othe antibiotic ointment called in to pt RX for vegetable picker. Pt education on signs indicating the ER advised if worsens or does not improve in next couple of days to contact pcp. ...................... ...................... ...................... ...................... ...................... ...................... ......... Disposition: Fulfilled Giorgio Pathak MD [address] [facility],[address], [place], [address], [employer] 12/25/2023 21:40:03 01/30/2024 text/html CRC Nurse Triage [...] ...................... ...................... ...................... ...................... ...................... ...................... ......... Bottom Filler Note From Salazar Jean-Baptiste: Pt wanted BP evaluated. Pt was diagnosed with elevated BP and was prescribed amplodipine and is unwilling to take medications as she feels it causes her lower extremity edema. Pt denies CP, SOB, Headache, dizziness, NVD, abdominal pain. Baseline vitals assessed, WNL, Bp slightly elevated. [facility] contacted and advised pt to contact cardiology for follow up and also PCP. Pt education on signs indicating the ER. ...................... ...................... ...................... ...................... ...................... ...................... ......... [facility] Consulted: Nataliia Grewal ...................... ...................... ...................... ...................... ...................... ...................... ......... Disposition: Fulfilled Nataliia Grewal MD [address] [facility],[address], [place], [phone], [employer] 01/30/2024 21:10:54 02/08/2024 text/html CRC Nurse Triage Notes (Vicki Jane - RN): Reason For Request: Pt reporting for about 3 days reporting a blockage in her nose and notes it feels very dry>denies fever/chills>denies headache, denies dizziness. Chief Complaints: Wound care PMH: COPD/Asthma, Hypertension, Diabetes Mellitus Type 2, Hyperlipidemia Comments: Occitan speaking member calling to request visit for painful sores inside both nares for the past 3 days. Reports intermittent bleeding. Has been applying vaseline. Does not wear 02. ...................... ...................... ...................... ...................... ...................... ...................... ......... Bottom Filler Note From Salazar Jean-Baptiste: Pt co sores [...] unable to get good visual inside nostrils. [facility] Kristyn contacted and RX for mupirocin called into pharmacy. Pt advised to use the antibiotic ointment for up to 4-5 days and if no relief to contact PCP for further evaluation. Pt education on signs indicating the ER. ...................... ...................... ...................... ...................... ...................... ...................... ......... [facility] Consulted: Pramod Simons ...................... ...................... ...................... ...................... ...................... ...................... ......... Disposition: Fulfilled PRAMOD SIMONS MD [address] [place] [address],[address], [place], [address], [employer] 02/08/2024 11:21:07 03/26/2024 text/html CRC Nurse Triage [...] allergies. Educated about response time. Dashawn RN Bottom Filler Organization Information for Gila Rosario Legal Name: [employer] Address: [address] [place] [address], Reservation Sales Agent: Miguel Brown MD CLIA No.: [id number] Bottom Filler POC Test Results from Gila Rosario iSTAT [...] ...................... ...................... ...................... ...................... ...................... ...................... ......... Bottom Filler Note From Gila Rosario: Sent to a [...] blood draw performed; Chem8+ results: uploaded to [employer]. [facility] consulted and orders rapid covid/flu test; Zofran 4mg IV and Normal Saline 500ml IV. Covid/flu test: neg; Zofran 4mg IV and Normal Saline 500ml IV administered. Pt reports nausea resolved. [facility] sends script to pt's pharmacy. IV removed. Red flags discussed. Pt has no further questions. ...................... ...................... ...................... ...................... ...................... ...................... ......... [facility] Consulted: Gene Bo ...................... ...................... ...................... ...................... ...................... ...................... ......... Disposition: Fulfilled GENE BO MD [address] [facility],[address], [place], [phone] [employer] 03/26/2024 22:16:21 05/21/2024 text/html HPI: Ezetimibe? D rug Ingredient? N ot Specified? A llergy? ther reaction(s): side effectsFluticasone? D rug Ingredient? N ot Specified? A llergy? Other reaction(s): lip swellingAdverse Reactions/Drug Intolerances Umeclidinium? D rug Ingredient? H igh? I ntolerance? Other reaction(s): Chest PainAcetaminophen? D rug Ingredient? N ausea And Vomiting? N ot Specified? I ntolerance? Empagliflozin? D rug Ingredient? N ot Specified? I ntolerance? Other reaction(s): vaginal itchHydrocodone? D rug Ingredient? N ausea And Vomiting? N ot Specified? I ntolerance? Ibuprofen? D rug Ingredient? N ot Specified? I ntolerance? Other reaction(s): Stomach UpsetLisinopril? D rug Ingredient? N ot Specified? I ntolerance? Metformin? D rug Ingredient? N ot Specified? I ntolerance? SEE FOLLOWING Allergies:Other reaction(s): stomach painMolds & Smuts? D rug Ingredient? N ot Specified? I ntolerance? 1 04/10/2020Oxycodone? D rug Ingredient? N ausea And Vomiting? N ot Specified? I ntolerance? Sitagliptin? ...................... ...................... ...................... ...................... ...................... ...................... ......... [facility] Nurse Triage Notes (Vicki Jane): Chief Complaints: High Blood Pressure, Urinary Symptoms PMH: COPD/Asthma, Hypertension, Diabetes Mellitus Type 2, Hyperlipidemia, Allergic Rhinitis, Gastroesophageal Reflux Disease (GERD), Coronary Artery Disease, Asthma PMH Reviewed at 05/21/2024:47 Allergies Reviewed at 05/21/2024:47 Comments: HPI reviewed[facility] HPI: Bottom Filler Organization Information for Sky Rubio Loni Romero Legal Name: [employer] [facility] Address: [address] [place] [address], Reservation Sales Agent: Miguel LYN No.: [id number] Bottom Filler POC Test Results from Rubio Swanson Urine Dipstick (19:12:04) Urine leukocytes: +- ALONSO Urine nitrites: - NIT Urine urobilinogen: - URO Urine protein: - PRO Urine pH: 5 pH Urine blood: - BLO Urine specific gravity: 1.010 SG Urine ketones: - KET Urine bilirubin: - JOSE Urine glucose: - GLU Blood Glucose Measurement (19:14:41) Blood Glucose: 291 mg/dL HPI: Ezetimibe? D rug Ingredient? N ot Specified? A llergy? ther reaction(s): side effectsFluticasone? D rug Ingredient? N ot Specified? A llergy? Other reaction(s): lip swellingAdverse Reactions/Drug Intolerances Umeclidinium? D rug Ingredient? H igh? I ntolerance? Other reaction(s): Chest PainAcetaminophen? D rug Ingredient? N ausea And Vomiting? N ot Specified? I ntolerance? Empagliflozin? D rug Ingredient? N ot Specified? I ntolerance? Other reaction(s): vaginal itchHydrocodone? D rug Ingredient? N ausea And Vomiting? N ot Specified? I ntolerance? Ibuprofen? D rug Ingredient? N ot Specified? I ntolerance? Other reaction(s): Stomach UpsetLisinopril? D rug Ingredient? N ot Specified? I ntolerance? Metformin? D rug Ingredient? N ot Specified? I ntolerance? SEE FOLLOWING Allergies:Other reaction(s): stomach painMolds & Smuts? D rug Ingredient? N ot Specified? I ntolerance? 1 04/10/2020Oxycodone? D rug Ingredient? N ausea And Vomiting? N ot Specified? I ntolerance? Sitagliptin? ...................... ...................... ...................... ...................... ...................... ...................... ......... CRC Nurse Triage Notes (Vicki Jane): Chief Complaints: High Blood Pressure, Urinary Symptoms PMH: COPD/Asthma, Hypertension, Diabetes Mellitus Type 2, Hyperlipidemia, Allergic Rhinitis, Gastroesophageal Reflux Disease (GERD), Coronary Artery Disease, Asthma PMH Reviewed at 05/21/2024:47 Allergies Reviewed at 05/21/2024:47 Comments: [facility]: seen yesterday at ED for high blood pressure. neg lab and ekg work up. having dysuria, as well. 200/100s yesterday. 180/70 today. no kumar, vision changes, chest pain. called PCP for appt but not appt yet.HTN meds: amlodipine - 5mg; last filled Feb 3Also on qhs insulin, clopidogrel, sertraline, aspirin ...................... ...................... ...................... ...................... ...................... ...................... ......... Bottom Filler Note From Rubio Swanson: dispatched for a 78yo female with hypertension and burning urination. Pt reports she was seen yesterday at [facility] for hypertension. Pt reports BP was 200+/100+. Pt was discharged with no finding. Pt reports she called today because she needs med changes to manage bp and recent burning urination. Pt denies h/a, dizziness, cp, sob or nausea at this time. [facility] consulted. Urine dip and lab send out order. Pt informed she can increase her amlodipine from 5mg to 10mg until she can get into her supervisory training specialist. [facility] informs pt to make sure she follows up with PCP or supervisory training specialist. Pt informed of red flags. Pt states she understands. Pt found walking and speaking in full clear sentences with no signs of distress. AO and GCS-15. PERRL. Skin warm/dry. Airway open and lung sounds clear. ABD soft nontender. BGL:291. Rest of exam unremarkable. [facility] Lab Orders: culture, urine: Performed urinalysis, dipstick: Performed ...................... ...................... ...................... ...................... ...................... ...................... ......... [facility] Consulted: Luci Corey ...................... ...................... ...................... ...................... ...................... ...................... ......... Disposition: Fulfilled Luci Corey MD [address] [place] [address],[address], [place], [address], TYLER LUEVANO 05/21/2024 20:47:38 OBGyn Episode No OBEpisode recorded.
--- OUTSIDE RECORDS SUMMARY | 2024-05-30 11:32 | XMS_ITS | Encounter Summary ---
Author Organization [employer] Address [address] [facility] [address] [place] [address] Care Team Providers Care Heel Builder Name Role Phone Liset Mitchell MD Primary Care Provider [phone] Reason for Visit * Reason Onset Date Comments ER Follow-up 01/29/2024 Encounter Details Date Type Department Care Team ([facility] st Contact Info) Description 01/29/2024 Telephone [facility] MED & PEDS [address], [place] [phone] Liset Mitchell MD [address] [place], [place] [phone] ER Follow-up Social History Tobacco Use Types [...] t he electric, gas, oil or water [employer] threatened to shut off services in your [...] AM EST Triage call to Pt with [facility] [place] [id number]. [place] was [place] [facility] [place] for High BP. (reportis on [...] requesting marianne seen today. ASK apt in [facility] at 140pm today. Pt agrees with [...] ED visit on : Date: 01/28/24 [place] [facility] Seen for: High blood pressure Symptomatic No *if yes message should go to Triage Patient advised will forward to team nurse for follow up documented in this encounter Plan of Treatment Upcoming Encounters Date Type Department Care Team (Late st Contact Info) Description 05/30/2024 1:00 PM EDT Office Visit [facility] MED & PEDS [address] [place] [address] documented as of this encounter Visit Diagnoses Not on filedocumented in this encounter Additional Health Concerns Assessment Noted Time PHQ-9 Depression Total Score: 0 04/13/19 23 10:04 AM EST documented as of this encounter Care Teams Heel Builder Relationship Specialty Start Date End Date Liset Mitchell MD [address] [place] [id number] PCP - General Family Medicine 09/14/20 documented as of this encounter
--- OUTSIDE RECORDS SUMMARY | 2024-05-30 11:32 | XMS_ITS | Encounter Summary ---
Author Organization [employer] Address [address] [facility] [address] [place] [address] Care Team Providers Care Product Owner Name Role Phone Liset Mitchell MD Primary Care Provider [phone] Reason for Visit * Reason Onset Date Comments Nurse Triage 05/21/2024 Encounter Details Date Type Department Care Team ([facility] st Contact Info) Description 05/21/2024 Telephone C [facility] MED & PEDS [address] [place], [place] [phone] Liset Mitchell MD [address] [place], [place] [phone] Nurse Triage Social History Tobacco Use Types [...] encounter Miscellaneous Notes * Telephone Encounter - Esperanza Linares LPN - 05/23/2024 12:17 PM EDT [facility] Nurse Jaye advised that company providing ELECTRICAL CAD DESIGNER services is responsible for ELECTRICAL CAD DESIGNER replacement andhours. Unsure who provides those services at this time.. [facility] Nurse to follow as indicated. * Telephone Encounter - Esperanza Linares LPN - 05/23/2024 11:28 AM EDT Email received as sent to Triage Nurse. Forwarded to patient Team to follow with concerns. Please see below. Good morning Team, We share a mutual patient, Natali Cortes 1945. Our team saw her on May 21 per Esperanza???s request. We called in regards to urine culture results, however, she is in need of more services, and requesting a call back in regards to ELECTRICAL CAD DESIGNER hours and medical assistance. She reports her ELECTRICAL CAD DESIGNER is sick, and needs someone in the interim to help with her daily needs She would also like more ELECTRICAL CAD DESIGNER hours. Please reach out to patient at your earliest convenience. I have two numbers for patients: [phone] * Telephone Encounter - Esperanza Linares LPN - 05/21/2024 2:44 PM EDT Please obtain [facility] ED note from 05/20/24 * Telephone Encounter - Esperanza Linares LPN - 05/21/2024 2:17 PM EDT Triage call to listed number no answer at time of call. Message left to return call to [phone]. Second call placed with ASHANTI Hurst [id number]. Patient confirms she was seen in ED yesterday for elevated BP readings not identified and has not taken BP at home today as it upsets her . Unable to clarify what medication she has taken. Patient wants her PCP to call her and patient advised that PCP is not available at this time. Patient also with concerns of urinary symptoms as reported as burning sensation now . No fever reported. Patient with [facility] Insurance and referral agreed upon and address and phone verified for home visit. Referral placed. Team tasked to follow with patient for OV for ED follow up with BP concerns as none available at time of call. Patient ED Note requested now. Multiple (2) protocols were used on this call. Disposition for Call: See in Office or Video Visit Today Protocol Used: Urination Pain - Female (Adult) Protocol-Based Disposition: See in Office or Video Visit Today Video visit offer not recorded Positive Triage Question: * All other females with painful urination, or patient wants to be seen * All higher-acuity triage questions were negative Care Advice Discussed: * Drink Extra Fluids * Reasons To Call Back - Urine symptoms don't improve by day 4 on antibiotics - Fever occurs - Flank pain occurs - You become worse Protocol Used: Blood Pressure - High (Adult) Protocol-Based Disposition: See in Office or Video Visit within 2 Weeks Positive Triage Question: * Patient wants doctor (or SECURITY SYSTEM ENGINEER/PA) to measure BP * All higher-acuity triage questions were negative Care Advice Discussed: * Reasons To Call Back - Headache, blurred vision, difficulty talking, or difficulty walking occurs - Chest pain or difficulty breathing occurs - You want to go into the office for a blood pressure check - You become worse * Telephone Encounter - Vandana Kerr - 05/21/2024 1:31 PM EDT Patient calling to report ED visit on : Date: 05/20/24 Hospital: [facility] Seen for: high blood pressure Symptomatic: no but is currently experiencing urination symptoms *if yes message should go to Triage Patient advised will forward to team nurse for follow up documented in this encounter Plan of Treatment Upcoming Encounters Date Type Department Care Team (Late st Contact Info) Description 05/30/2024 1:00 PM EDT Office Visit [facility] MED & PEDS [address] [place] [address] documented as of this encounter Visit Diagnoses Not on filedocumented in this encounter Additional Health Concerns Assessment Noted Time PHQ-9 Depression Total Score: 4 02/28/19 25 9:06 AM EST documented as of this encounter Care Teams Product Owner Relationship Specialty Start Date End Date Liset Mitchell MD [address] [place] [address] PCP - General Family Medicine 09/14/20 documented as of this encounter
--- OUTSIDE RECORDS SUMMARY | 2024-05-30 11:32 | XMS_ITS | Clinical Summary ---
Author Organization [facility] Address [address] [place] [address] Phone Care Team Providers Care Immigration Patrol Inspector Name Role Phone Liset Mitchell MD Primary Care Provider [phone] Allergies Active Allergy Reactions Criticality Noted Date [...] medications Active Problems No known active problems Medical History Medical History Date Comments Hypertension 07/24/2018 DX:Hypertension Asthma-COPD overlap syndrome (CMS/HCC) 9 DX:Asthma-COPD overlap syndrome (HCC) Hiatal hernia 05/24/2018 DX:Hiatal hernia Pulmonary nodule 05/24/2018 DX:Pulmonary no dule Hyperlipidemia 07/24/2018 DX:Hyperlipidemi a Anxiety and depression 07/24/2018 DX:Anxiet y and depression Constipation 07/24/2018 DX:Constipation Vitamin B 12 deficiency 07/24/2018 DX:Vitam in B 12 deficiency Allergic rhinitis 07/24/2018 DX:Allergic rh initis Congestive heart failure (CMS/HCC) 07/24/2018 DX:Congestive heart failure (HCC) Recurrent herpes labialis 07/24/2018 DX:Rec urrent herpes labialis 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 History of colon polyps 07/24/2018 DX:Histo ry of colon polyps ROXIE (obstructive sleep apnea) 07/24/2018 DX :ROXIE (obstructive sleep apnea) Type 2 diabetes mellitus wit hout complication 07/24/2018 DX:Type 2 diabetes mellitus without complication ([facility]) HTN (hypertension) DX:HTN (hyper tension) GERD (gastroesophageal reflux disease) DX:GERD (gastroesophageal reflux disease) Depression DX:Depression 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 ([facility]) DX:Insulin dependent type 2 diabetes mellitus ([facility]) Social History Tobacco Use Types Packs/Day [...] (2 of 3) 05/27/2014 04/01/2014 RSV Immunization Adult Patients (1 - 1-dose 75+ series) 2020 Falls Risk Assessment 01/25/2022 Hepatitis C Screening 01/25/2022 Medicare Annual Wellness Visit 01/25/2022 Osteoporosis Screening (Bone Density Screening) 01/25/2022 Social Influencers of Health Screening 01/25/2022 Depression Screening 04/13/2023 04/13/2022 COVID-19 Vaccine ( season) 2023 02/02/2021, 07/15/2020, 06/24/2020 Diabetes: Blood Sugar Control Test (HGBA1C) 02/02/2024 08/03/2023 Influenza Vaccine (Season Ended) 2024 02/06/2019, 01/09/2018, 04/06/2017, Additional history exists Diabetes: Annual Urine Albumin-Creatinine Ratio (uACR) 12/23/2024 [...] Procedure Name Priority Date/Time Associated Diagnosis Comments COMPREHENSIVE METABOLIC PANEL STAT 01/26/2024 4:23 AM EST from Last 3 Months or Most Recently Relevant to Health Maintenance Results * (ABNORMAL) Comprehensive metabolic panel (01/26/2024 4:23 AM EST) Sodium 141 133 - 145 mmol/L LAB CHEMISTRY METHOD 01/26/2024 5:18 AM [facility] Potassium 4.1 3.5 - 5.5 mmol/L LAB CHEMISTRY METHOD 01/26/2024 5:18 AM [facility] Chloride 108 96 - 110 mmol/L LAB CHEMISTRY METHOD 01/26/2024 5:18 AM [facility] CO2 28 21 - 32 mmol/L LAB CHEMISTRY METHOD 01/26/2024 5:18 AM [facility] Anion Gap 5 3 - 11 LAB CHEMISTRY METHOD 01/26/2024 5:18 AM [facility] Glucose 154(H) 70 - 100 mg/dL LAB CHEMISTRY METHOD 01/26/2024 5:18 AM [facility] BUN 25 5 - 25 mg/dL LAB CHEMISTRY METHOD 01/26/2024 5:18 AM [facility] Creatinine 0.87 0.50 - 1.10 mg/dL LAB CHEMISTRY METHOD 01/26/2024 5:18 AM [facility] eGFR 68 >=60 mL/min/1. 73m2 LAB CHEMISTRY METHOD 01/26/2024 5:18 AM [facility] Comment:Calculation based on the??Chronic Kidney Disease Epidemiology Collaboration (CKD-EPI) equation refit??without adjustment for race. BUN/Creatinine Ratio 28.7 LAB CHEMISTRY METHOD 01/26/2024 5:18 AM [facility] Calcium 9.7 8.5 - 10.5 mg/dL LAB CHEMISTRY METHOD 01/26/2024 5:18 AM [facility] AST (SGOT) 20 10 - 42 unit/L LAB CHEMISTRY METHOD 01/26/2024 5:18 AM [facility] ALT (SGPT) 33 10 - 60 unit/L LAB CHEMISTRY METHOD 01/26/2024 5:18 AM [facility] Alkaline Phosphatase 58 42 - 121 unit/L LAB CHEMISTRY METHOD 01/26/2024 5:18 AM [facility] Total Protein 7.1 6.0 - 8.0 g/dL LAB CHEMISTRY METHOD 01/26/2024 5:18 AM [facility] Albumin 3.9 3.2 - 5.0 g/dL LAB CHEMISTRY METHOD 01/26/2024 5:18 AM [facility] Total Bilirubin 0.5 0.0 - 1.4 mg/dL LAB CHEMISTRY METHOD 01/26/2024 5:18 AM [facility] Blood Venous blood specimen / Unknown Venipuncture / Unknown 01/26/2024 4:23 AM EST 01/26/2024 4:44 AM EST us Emilia Marr MD LAB BLOOD ORDERABLES Fin al Result [facility] [address] [place] [address], from Last 3 Months or Most Recently Relevant to Health Maintenance Insurance [facility] MEDICARE Member Subscriber Plan / Payer (Ef fective 2012-Present) Name:Natali Bower Relation to Subscriber:Self Name:Natali Bower Payer ID:[id number] Group ID:[id number] Type:Not on file Address: [place] [address] [address] [place] [address] Care Teams Immigration Patrol Inspector Relationship Specialty Start Date End Date Liset Mitchell MD [address] [place] [address] PCP - General 08/09/21
--- OUTSIDE RECORDS SUMMARY | 2024-05-30 11:32 | XMS_ITS | Encounter Summary ---
Author Organization [employer] Address [address] [place] [address] Care Team Providers Care Teacher Selection Specialist Name Role Phone Liset Mitchell MD Primary Care Provider [phone] Reason for Visit * Reason Onset Date Comments Nurse Triage 05/29/2024 Encounter Details Date Type Department Care Team ([facility] st Contact Info) Description 05/29/2024 Telephone [facility] MEDICINE [address] [place] [address] Liset Mitchell MD [address] [place], [place] [phone] Nurse Triage Social History Tobacco Use Types [...] Telephone Encounter - Esperanza Linares LPN - 05/29/2024 9:32 AM EDT Triage call returned with BLS # [id number] Josh. Patient rpeorts ongoing vaginal discomfor with voiding. Was seen by [facility] and provided sample per patient and was told it was fine. Not on ABT. No vaginal discharge. Discomfort now present 2-3 weeks duration. No recent HAND CUTTER APPRENTICE exam per patient. No reported fever. Disposition reviewed and patient in agreement with plan. ASK/LEONA/ tomorrow at 1pm as approved with [facility] Mgr. Reviewed with patient home care recommendations and reasons to call back. Pt verbalized understanding and agrees. Protocol Used: Vaginal Symptoms (Adult) Protocol-Based Disposition: See in Office or Video Visit within 3 Days Positive Triage Question: * Patient wants to be seen * All higher-acuity triage questions were negative Care Advice Discussed: * Reasons To Call Back - Fever or abdomen pain occur - You become worse * Telephone Encounter - Mali Tyler - 05/29/2024 9:23 AM EDT Symptom: Urine Symptoms Outcome: Schedule a same-day appointment or talk to a nurse or provider today Reason: Caller denied all higher acuity questions The caller accepted this outcome. [phone] macedonian documented in this encounter Plan of Treatment Upcoming Encounters Date Type Department Care Team (Late st Contact Info) Description 05/30/2024 1:00 PM EDT Office Visit [facility] MED & PEDS [address] [place] [address] documented as of this encounter Visit Diagnoses Not on filedocumented in this encounter Additional Health Concerns Assessment Noted Time PHQ-9 Depression Total Score: 4 02/28/19 25 9:06 AM EST documented as of this encounter Care Teams Teacher Selection Specialist Relationship Specialty Start Date End Date Liset Mitchell MD [address] [place] [address] PCP - General Family Medicine 09/14/20 documented as of this encounter
--- OUTSIDE RECORDS SUMMARY | 2024-05-30 11:32 | XMS_ITS | Encounter Summary ---
Author Organization [employer] Address [address] [facility] [address] [place] [address] Care Team Providers Care Rock Lather Name Role Phone Liset Mitchell MD Primary Care Provider [phone] Encounter Details Date Type Department Care Team (Late st Contact Info) Description 02/05/2024 Orders Only [facility] [address] [place], [place] [phone] Provider, MD Anne Marie Social History Tobacco [...] 1:00 PM EDT Office Visit [facility] MED & PEDS [address] [place] [address] documented as of this encounter Procedures Procedure [...] documented as of this encounter Care Teams Rock Lather Relationship Specialty Start Date End Date Liset Mitchell MD [address] [place] [id number] PCP - General Family Medicine 09/14/20 documented as of this encounter
--- OUTSIDE RECORDS SUMMARY | 2024-05-30 11:32 | XMS_ITS | Encounter Summary ---
Author Organization [employer] Address [address] [facility] [address] [place] [address] Care Team Providers Care Physical Education Teacher Name Role Phone Liset Mitchell MD Primary Care Provider [phone] Reason for Visit * Reason Onset Date Comments Triage 07/07/2022 Encounter Details Date Type Department Care Team ([facility] st Contact Info) Description 07/07/2022 Telephone C [facility]EDS [address] [place], [place] [phone] Liset Mitchell MD [address] [place], [place] [phone] Triage Social History Tobacco Use Types Packs/Day [...] pt has upcomign appt on 08/03/22 with sales representative consultant. Pt confirmed that new discharge meds are [...] - 07/07/2022 12:05 PM EDT Call to Natlai Santos, returned for triage. No answer LVM to return call to [facility] triage line. Protocol Used: No Contact [...] The caller accepted this outcome Patient speaks armenian. documented in this encounter Plan of Treatment Upcoming Encounters Date Type Department Care Team ([facility] st Contact Info) Description 05/30/2024 1:00 PM EDT Office Visit [facility] MED & PEDS [address] [place] [address] documented as of this encounter Visit Diagnoses Not on filedocumented in this encounter Additional Health Concerns Assessment Noted Time PHQ-9 Depression Total Score: 0 04/13/19 23 10:04 AM EST documented as of this encounter Care Teams Physical Education Teacher Relationship Specialty Start Date End Date Liset Mitchell MD [address] [place] [address] PCP - General Family Medicine 09/14/20 documented as of this encounter
--- OUTSIDE RECORDS SUMMARY | 2024-05-30 11:32 | XMS_ITS | Data Portability ---
Author Organization [place] - [facility], Allergy Address [address] [address] Care Team Providers Care Slunk Skinner Name Role Phone JACKSON PEDRO Primary Care Provider Assessment Encounter Date Assessment [...] Organization Details Recorded Time Nasal congestio n [id number] Active 2016 Nasal congestio n; Note: Date Diagnosed : 08/11/2016 11:55 AM (R09.81) Not Available [facility] 4 03:07:47 Chronic rhinitis 70432981 Active 2018 Chronic rhinitis; Note: Date Diagnosed : 08/21/2018 5:21 PM (J31.0) Not Available [facility] 4 03:07:47 Tinnitus of right ear 67201666406 08 Active 2016 Tinnitus, right ear; Note: Date Diagnosed : 08/11/2016 12:22 PM (H93.11) Not Available [facility] 4 03:07:46 Asthma 957959453 Active 2016 Other asthma; Note: Date Diagnosed : 03/01/2016 1:00 PM (J45.998) Not Available [facility] 4 03:07:46 Otalgia of right ear 1601123132 Active 2016 Otalgia, right ear; Note: Date Diagnosed : 08/11/2016 12:22 PM (H92.01) Not Available [facility] 4 03:07:46 Disturban ce of salivary secretion 59232675 Active 2018 Xerostomi a; Note: Date Diagnosed : 07/24/2018 2:04 PM (K11.7) Not Available [facility] 4 03:07:46 Sensorine ural hearing loss of bilateral ears 664068292 Active 2016 Sensorine ural hearing loss, bilateral ; Note: Date Diagnosed : 08/11/2016 12:23 PM (H90.3) Not Available [facility] 4 03:07:47 Dysphagia 05989298 Active 2021 Dysphagia , unspecifi ed; Note: Date Diagnosed : 08/10/2021 1:29 PM (R13.10) Not Available [facility] 4 03:07:47 Allergic rhinitis 24797606 Active 2018 Other allergic rhinitis; Note: Date Diagnosed : 07/24/2018 2:03 PM (J30.89) Not Available [facility] 4 03:07:47 Chronic sialadeni tis 067719929 Active 2018 Chronic sialoaden itis; Note: Date Diagnosed : 07/24/2018 2:03 PM (K11.23) Not Available [facility] 4 03:07:46 Impacted cerumen of bilateral ears 60073393906 16214 Active 2016 Impacted cerumen, bilateral ; Note: Date Diagnosed : 03/01/2016 1:00 PM (H61.23) Not Available [facility] 4 03:07:45 Chronic pharyngit is 512075 Active 2019 Chronic sore throat; Note: Date Diagnosed : 07/18/2019 3:39 PM (J31.2) Not Available [facility] 4 03:07:45 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 Procedures Surgical History Date Name Laterality Status Provider Name and Address Organization Details Recorded Time 03/10/19 25 Tympanometry (68312) completed Lorri Levy [facility] 03/10/2024 12:09:43 Imaging Results Imaging Date Name Status [facility]Modified by [facility] Details LastModified Time 03/11/2024 audiogram completed BARCODE [...] ended release 2016 active Medicatio n ID: [id number] Br and Name: Toprol XL Send Method: [...] mg tablet 2016 active Medicatio n ID: [id number] Br and Name: chlorthal ariana Sen d Method: E-Prescri bed Subs Allowed: subs OK Medica tionGener icName: chlorthal idone Not Available Not Available Not Available amlodipine 5 mg tablet TAKE 1 TABLET BY MOUTH EVERY DAY active Not Available Not Available No t Available aspirin 81 mg tablet,del ayed release 2016 active Medicatio n ID: [id number] Br and Name: aspirin S end Method: [...] mg tablet 2016 active Medicatio n ID: [id number] Br and Name: Diovan Se nd Method: [...] mg tablet 2016 active Medicatio n ID: [id number] Br and Name: amlodipin e Send Method: E-Prescri bed Subs Allowed: subs OK Medica tionGener icName: amlodipin e Not Available Not Available Not Available simvastati n 20 mg tablet 2016 active Medicatio n ID: [id number] Br and Name: simvastat in Send Method: E-Prescri bed Subs Allowed: subs OK Medica tionGener icName: simvastat in Not Available Not Available Not Available diclofenac 0.1 % eye drops 2016 active Medicatio n ID: [id number] Br and Name: diclofena c sodium Se nd Method: E-Prescri bed Subs Allowed: subs OK Medica tionGener icName: diclofena c sodium Not Available Not Available Not Available diphenhydr amine 25 mg tablet 2016 active Medicatio n ID: [id number] Br and Name: diphenhyd ramine HCl Send Method: E-Prescri bed Subs Allowed: subs OK Medica tionGener icName: diphenhyd ramine HCl Not Available Not Available Not Available Aquaphor topical ointment 2016 active Medicatio n ID: [id number] Br and Name: Aquaphor Send Method: E-Prescri [...] 2 spray 2020 active Medicatio n ID: [id number] Pr escribed By Name: NIELS Dumont Name: [...] 2 puff 2016 active Medicatio n ID: [id number] Du ration Value: 90 Brand Name: Ventolin HFA Send Method: E-Prescri bed Subs Allowed: subs OK Medica tionGener icName: Ventolin HFA Not Available Not Available Not Available Premarin 0.625 mg tablet 2016 active Medicatio n ID: [id number] Br and Name: Premarin Send Method: E-Prescri bed Subs Allowed: subs OK Medica tionGener icName: Premarin Not Available Not Available Not Available rosuvastat in 40 mg tablet TAKE 1 TABLET BY MOUTH EVERY DAY IN THE MORNING active Not Available Not Available No t Available Prilosec OTC 20 mg tablet,del ayed release 2016 active Medicatio n ID: [id number] Br and Name: Prilosec OTC Send Method: E-Prescri bed Subs Allowed: subs OK Medica tionGener icName: Prilosec OTC Not Available Not Available Not Available metformin ER 1,000 mg tablet,ext ended release 24hr (osmotic) 2016 active Medicatio n ID: [id number] Br and Name: metformin Send Method: E-Prescri bed Subs Allowed: subs OK Medica tionGener icName: metformin Not Available Not Available Not Available albuterol sulfate concentrat e 2.5 mg/0.5 mL solution for nebulizati on 2016 active Medicatio n ID: [id number] Br and Name: albuterol sulfate S end [...] aerosol inhaler 2016 active Medicatio n ID: [id number] Br and Name: Flovent HFA Send Method: [...] Meter kit 2016 active Medicatio n ID: [id number] Br and Name: FreeStyle Lite Meter Sen [...] oxide) capsule 2016 active Medicatio n ID: [id number] Br and Name: magnesium oxide Sen d Method: E-Prescri bed Subs Allowed: subs OK Medica tionGener icName: magnesium oxide Not Available Not Available Not Available lidocaine 5 % topical ointment 2016 active Medicatio n ID: [id number] Br and Name: lidocaine Send Method: E-Prescri bed Subs Allowed: subs OK Medica tionGener icName: lidocaine Not Available Not Available Not Available vitamin B12 1,000 mcg-folic acid 400 mcg sublingual tablet 2016 active Medicatio n ID: [id number] Br and Name: vitamin N73-nxtek acid Send Method: E-Prescri bed Subs Allowed: subs OK Medica tionGener icName: vitamin Q56-taubg acid Not Available Not Available Not Available Tanzeum 50 mg/0.5 mL subcutaneo us pen injector 2016 active Medicatio n ID: [id number] Br and Name: Tanzeum S end Method: E-Prescri bed Subs Allowed: subs OK Medica tionGener icName: Tanzeum Not Available Not Available Not Available Jardiance 10 mg tablet 2018 active Medicatio n ID: [id number] Du ration Value: 30 Brand Name: Jardiance Send Method: E-Prescri bed Subs Allowed: subs OK Medica tionGener icName: Jardiance Not Available Not Available Not Available DeVilbiss PulmoNeb LT Compressor -Nebulizer 2016 active Medicatio n ID: [id number] Br and Name: DeVilbiss PulmoNeb LT Comp-Neb [...] perineal applicator 2016 active Medicatio n ID: [id number] Br and Name: Anusol-HC Send Method: E-Prescri bed Subs Allowed: subs OK Medica tionGener icName: Anusol-HC Not Available Not Available Not Available Qvar RediHaler 80 mcg/actuat ion HFA breath activated aerosol 2018 active Medicatio n ID: [id number] Du ration Value: 30 Brand Name: Qvar [...] Address Organization Details Last Updated DateTime 03/10/2024 24719.08 g 33 kg/m2 142.24 cm Roxane Merlos [place] - [facility] 03/10/2024 11:38:17 Social History None recorded. Functional Status None recorded. Mental Status None recorded. Family History Nothing Reported. Medical History No medical history recorded. Gynecological HistoryNo gynecological history recorded. Obstetrics History GPAL:G 0 P 0 0 0 0 Past Encounters Encounter ID Performer Location Encounter Start Date Encounter Closed Date Diagnosis/Indication Diagnosis SNOMED-CT Code Diagnosis ICD10 Code Diagnosis Note [id number] CRISTINA JUAREZ MD [facility] [address] [address] 03/10/2024 11:10:06 03/10/2024 12:30:23 Ear pressure sensation 410546558 H93.8X9 Audiologic al evaluation results: Tympanomet ry: [...] not maintain a hermetic seal}} Allergic rhinitis 622782 04 J30.89 Health Concerns Section Related Observation LastModified by Organization Detai ls LastModified Time None Recorded Concern Status LastModified by Organization Details LastModified Time None Recorded Advance Directives Directive None Recorded Payers Encounter Date Sequence Insurance Name Policy Number Policy Valdovinos Covered Member ID Valdovinos Member ID Guarantor Name 03/10/2024 1 [facility] - DOS ON OR AFTER 2022 - HALF-WAY OPTIONS (MEDICARE REPLACEMENT/AD VANTAGE - HMO) Natali Cortes [id number] Natali Cortes Notes Date Note Type Note [...] this triggered her allergies. CRISTINA JUAREZ MD [address] [place] [address], [address], [place] - [facility] 03/10/2024 15:11:38 OBGyn Episode No OBEpisode recorded.
--- OUTSIDE RECORDS SUMMARY | 2024-05-30 11:32 | XMS_ITS | Encounter Summary ---
Author Organization [employer] Address [address] [place] [address] Care Team Providers Care School Bus Monitor Name Role Phone Liset Mitchell MD Primary Care Provider Reason for Visit * Reason Onset Date Comments Results 10/11/2023 Appointment Request 10/11/2023 Encounter Details Date Type Department Care Team ([facility] st Contact Info) Description 10/11/2023 Telephone [facility] MEDICINE [address] [place] [address] Liset Mitchell MD [address] [place], [place] [phone] Results; Appointment Request Social History Tobacco Use [...] a appt in regards to getting a DISTANCE EDUCATION FACULTY LIAISON states is in need documented in this encounter Plan of Treatment Upcoming Encounters Date Type Department Care Team (Late st Contact Info) Description 05/30/2024 1:00 PM EDT Office Visit [facility] MED & PEDS [address] [place] [address] documented as of this encounter Visit Diagnoses Not on filedocumented in this encounter Additional Health Concerns Assessment Noted Time PHQ-9 Depression Total Score: 0 04/13/19 23 10:04 AM EST documented as of this encounter Care Teams School Bus Monitor Relationship Specialty Start Date End Date Liset Mitchell MD [address] [place] [address] PCP - General Family Medicine 09/14/20 documented as of this encounter
--- OUTSIDE RECORDS SUMMARY | 2024-05-30 11:32 | XMS_ITS | Encounter Summary ---
Author Organization [employer] Address [address] [place] [address] Care Team Providers Care Post Tensioning Ironworker Helper Name Role Phone Liset Mitchell MD Primary Care Provider [phone] Reason for Visit * Reason Onset Date Comments ER Follow-up 05/15/2023 Encounter Details Date Type Department Care Team ([facility] st Contact Info) Description 05/15/2023 Telephone [facility] MEDICINE [address] [place], [place] [phone] Liset Mitchell MD [address] [place], [place] [phone] ER Follow-up Social History Tobacco Use Types [...] answer. LM to call us back in Ethiopian. Routing back to [facility] nurses. * Telephone Encounter - Sammy Hall - 05/15/2023 4:01 PM EDT Tc from pt returning phone call. * Telephone Encounter - Julieta Montalvo RN - 05/15/2023 3:29 PM EDT TC placed to patient x 2 regarding ED visit below via [place] [facility] and without veterans services specialist line. Patient has extended f/u with PCP on 05/25/23. Noted in appointment about recent ED visit for R shoulder pain/dislocation. LM for patient in Ethiopian that we are calling to check in and hope she is feeling better, remindingof upcoming appointment with PCP on 05/25/23 @ 11:15 and asking her to call us if she needs anythingprior to this appointment or needs a sooner appointment. Routing to PCP so she is aware. Patient calling to report ED visit on : Date: 05/13 Hospital: [facility] Seen for: Extremity Injury, Upper shoulder pain while taking x-rays Patient advised will forward to team nurse for follow up * Telephone Encounter - Daniel Rigoberto - 05/15/2023 11:06 AM EDT Patient calling to report ED visit on : Date: 05/13 Hospital: [facility] Seen for: Extremity Injury, Upper shoulder pain while taking x-rays Patient advised will forward to team nurse for follow up documented in this encounter Plan of Treatment Upcoming Encounters Date Type Department Care Team (Late st Contact Info) Description 05/30/2024 1:00 PM EDT Office Visit [facility] MED & PEDS [address] [place] [address] documented as of this encounter Visit Diagnoses Not on filedocumented in this encounter Additional Health Concerns Assessment Noted Time PHQ-9 Depression Total Score: 0 04/13/19 23 10:04 AM EST documented as of this encounter Care Teams Post Tensioning Ironworker Helper Relationship Specialty Start Date End Date Liset Mitchell MD [address] [place] [address] PCP - General Family Medicine 09/14/20 documented as of this encounter
--- OUTSIDE RECORDS SUMMARY | 2024-05-30 11:32 | XMS_ITS | Encounter Summary ---
Author Organization [employer] Address [address] [facility] [address] [place] [address] Care Team Providers Care Program Advocate Name Role Phone Liset Mitchell MD Primary Care Provider [phone] Reason for Visit * Reason Comments Med Change Request Encounter Details Date Type Department Care Team (Late Contact Info) Description 10/02/2022 Refill [facility] MED & PEDS [address] [place], [place] [phone] Carla Cheng MD [address] [place] [phone] Social History Tobacco Use Types Packs/Day Years [...] Encounters Date Type Department Care Team (Late Contact Info) Description 05/30/2024 1:00 PM EDT Office Visit [facility] MED & PEDS [address] [place], [place] [phone] documented as of this encounter Visit Diagnoses Not on filedocumented in this encounter Additional Health Concerns Assessment Noted Time PHQ-9 Depression Total Score: 0 04/13/19 23 10:04 AM EST documented as of this encounter Care Teams Program Advocate Relationship Specialty Start Date End Date Liset Mitchell MD [address] [place] [address] PCP - General Family Medicine 09/14/20 documented as of this encounter
--- OUTSIDE RECORDS SUMMARY | 2024-05-30 11:32 | XMS_ITS | Encounter Summary ---
Author Organization [employer] Address [address] [facility] 7[address] [place] [address] Care Team Providers Care Microeconomics Professor Name Role Phone Liset Mitchell MD Primary Care Provider [phone] Encounter Details Date Type Department Care Team (Late st Contact Info) Description 01/30/2024 Orders Only [facility] [address] [place], [place] [phone] Provider, MD Anne Marie Social History Tobacco [...] 1:00 PM EDT Office Visit [facility] MED & PEDS [address] [place] [address] documented as of this encounter Procedures Procedure [...] documented as of this encounter Care Teams Microeconomics Professor Relationship Specialty Start Date End Date Liset Mitchell MD [address] [place] [address] PCP - General Family Medicine 09/14/20 documented as of this encounter
--- OUTSIDE RECORDS SUMMARY | 2024-05-30 11:32 | XMS_ITS | Patient Health Record ---
Author Organization [facility] Address [address] [place] [address] Support Name Relationship Address Phone CORINNE HICKMAN Emergency Contact [address] [place] [address] HERMAN NARAYANAN Guarantor Unknown [phone] Allergies Allergen (clinical drug ingredient) Drug/Non Drug [...] End Date MEDICARE PART B [address] [address] [place] [id number] HERMAN JI Self - patient is the insured 4 Medical (General) History Medical History History ICD Code DIABETES ESTRENIMIENTO Surgical History Surgery Date(Month/Year) CATETERISMO 06/2022 Hospitalization History Reason Date(Month/Year) INFARTO 06/2022
--- OUTSIDE RECORDS SUMMARY | 2024-05-30 11:32 | XMS_ITS | Encounter Summary ---
Author Organization [employer] Address [address] [facility] [address] [place] [address] Care Team Providers Care Loop Puller Name Role Phone Liset Mitchell MD Primary Care Provider [phone] Reason for Visit * Reason Comments Med Refill Encounter Details Date Type Department Care Team ([facility] Contact Info) Description 04/13/2022 Refill [facility] MEDICINE [address] [place] [address] Liset Mitchell MD [address] [place] [phone] Social History Tobacco Use Types Packs/Day Years [...] Upcoming Encounters Date Type Department Care Team ([facility] Contact Info) Description 05/30/2024 1:00 PM EDT Office Visit [facility] MED & PEDS [address] [place] [address] documented as of this encounter Visit Diagnoses Not on filedocumented in this encounter Additional Health Concerns Assessment Noted Time PHQ-9 Depression Total Score: 0 04/13/19 23 10:04 AM EST documented as of this encounter Care Teams Loop Puller Relationship Specialty Start Date End Date Liset Mitchell MD [address] [place] [address] PCP - General Family Medicine 09/14/20 documented as of this encounter
--- OUTSIDE RECORDS SUMMARY | 2024-05-30 11:32 | XMS_ITS | Encounter Summary ---
Author Organization [employer] Address [address] [facility] [address] [place] [address] Care Team Providers Care Poly Packer And Heat Sealer Name Role Phone Liset Mitchell MD Primary Care Provider [phone] Reason for Visit * Reason Onset Date Comments Prior Authorization 05/24/2022 Encounter Details Date Type Department Care Team ([facility] st Contact Info) Description 05/24/2022 Telephone [facility] MED [facility] PEDS [address] [place], [place] [phone] Liset Mitchell MD [address] [place], [place] [phone] Prior Authorization Social History Tobacco Use Types [...] Kerr - 05/24/2022 10:47 AM EDT Tc from [place] with [facility] requesting a PA for medication linaCLOtide (Linzess) 290 MCG capsule . documented in this encounter Plan of Treatment Upcoming Encounters Date Type Department Care Team (Late st Contact Info) Description 05/30/2024 1:00 PM EDT Office Visit [facility] MED & PEDS [address] [place] [address] documented as of this encounter Visit Diagnoses Not on filedocumented in this encounter Additional Health Concerns Assessment Noted Time PHQ-9 Depression Total Score: 0 04/13/19 23 10:04 AM EST documented as of this encounter Care Teams Poly Packer And Heat Sealer Relationship Specialty Start Date End Date Liset Mitchell MD [address] [place] [address] PCP - General Family Medicine 09/14/20 documented as of this encounter
== END 2024-05-30 12:35 | disposition home or self-care (01) ==
LOC: HO.HCS 10:09
PROVIDERS: PCP Family Medicine; Visit Provider Nurse Practitioner Family
DX: I10 Essential (primary) hypertension (principal); I25.5 Ischemic cardiomyopathy; I25.10 Atherosclerotic heart disease of native coronary artery without angina pectoris; E78.5 Hyperlipidemia, unspecified
CPT/HCPCS: 99214; G2211

== ENCOUNTER 2024-05-30 13:56 | Outpatient (REF) | payer OTHER, SELFPAY ==
--- OUTSIDE RECORDS SUMMARY | 2024-05-30 15:44 | XMS_ITS | Encounter Summary ---
Author Organization [employer] Address [address] [place] [address] Care Team Providers Care Marketing Team Lead Name Role Phone Liset Mitchell MD Primary Care Provider [phone] Reason for Visit * Reason Onset Date Comments Nurse Triage 05/29/2024 Encounter Details Date Type Department Care Team ([facility] st Contact Info) Description 05/29/2024 Telephone [facility] MEDICINE [address] [place] [address] Liset Mitchell MD [address] [place], [place] [phone] Nurse Triage Social History Tobacco Use Types [...] EDT Triage call returned with BLS # [id number] Josh. Patient rpeorts ongoing vaginal discomfor with voiding. Was seen by [facility] and provided sample per patient and was told it was fine. Not on ABT. No vaginal discharge. Discomfort now present 2-3 weeks duration. No recent SOLID WASTE DISPOSAL MANAGER exam per patient. No reported fever. Disposition reviewed and patient in agreement with plan. ASK/LEONA/ tomorrow at 1pm as approved with [facility] Mgr. Reviewed with patient home care recommendations [...] acuity questions The caller accepted this outcome. [phone] north korean documented in this encounter Plan of Treatment Not on file documented as of this encounter Visit Diagnoses Not on filedocumented in this encounter Additional Health Concerns Assessment Noted Time PHQ-9 Depression Total Score: 4 02/28/19 25 9:06 AM EST documented as of this encounter Care Teams Marketing Team Lead Relationship Specialty Start Date End Date Liset Mitchell MD [address] [place] [address] PCP - General Family Medicine 09/14/20 documented as of this encounter
--- OUTSIDE RECORDS SUMMARY | 2024-05-30 15:44 | XMS_ITS | Clinical Summary ---
Author Organization [employer] Address [address] [facility] 7t [place] [address] Care Team Providers Care Rod Cup Filler Name Role Phone Liset Mitchell MD Primary Care Provider [phone] Allergies Active Allergy Reactions Criticality Noted Date [...] 11 10/26/19 23 Active Continuous Blood Gluc Valve Technician (FreeStyle Aristides reader) deviceIndication s:Type 2 diabetes [...] mL 11 05/25/19 24 Active nystatin (Mycostatin) 083542 UNIT/ML suspension TAKE 1ML BY MOUTH 4 [...] day. 90 tablet 1 02/28/19 25 Active metroNIDAZOLE (Flagyl) 500 MG tablet Take 1 tablet (500 mg) by mouth 2 times daily for 7 days. 14 tablet 05/31/19 25 025 Active fluconazole (Diflucan) 150 MG tablet Take 1 tab today and next after 5 days 2 tablet 05/31/19 25 Active Active Problems Problem Noted Date [...] if negative side effects begin. F/u with School Program Director for review of heart medication. Labs: Rapid [...] bisoprolol, told her to talk with her wild animal caretaker as she has hx of CAD. Assessment [...] Encounters Date Type Department Care Team Description 05/30/2024 1:00 PM EDT Office Visit [facility] [address] [place] [address] Stephani Liu MD Acute vaginitis (Primary Dx); Type 2 diabetes mellitus with microalbuminuria, with long-term current use of insulin ([facility]) 05/30/2024 Travel 05/29/2024 Telephone [facility] MEDICINE [address] [place] [address] Liset Mitchell MD Nurse Triage 05/21/2024 Telephone [facility] [address] [place] [address] Liset Mitchell MD Nurse Triage 03/13/2024 Telephone [facility] MEDICINE [address] [place] [phone] Liset Mitchell MD Appointment Request 03/13/2024 Orders Only GENERIC EXTERNAL DATA DEPARTMENT Provider, Generic External Data 03/13/2024 Telephone [facility] MEDICINE [address] [place] [address] Liset Mitchell MD Nurse Triage from Last [...] your housing situation today? I have ciro mirlande 02/29/[address] you li [...] Access Q2 Not on file 02/29/2024 Comments No Sex and Gender Information Value Date Recorded Sex Assigned at Female 12/26/2021 10:14 AM EDT Legal Sex Female 10:14 AM EDT Gender Identity Female 12/26/2021 10:14 AM EDT Sexual Orientation Don't know 10/25/2022 11 :36 AM EDT Sexual Orientation Straight 10/25/2022 11 :36 AM EDT Last Filed Vital Signs Vital Sign Reading Time Taken Comments Blood Pressure 139/71 05/30/2024 1:21 PM EDT Pulse 64 05/30/2024 1:21 PM EDT Temperature 36.7 ??C (98.1 ??F) 05/30/2024 1:21 PM ED T Respiratory Rate 18 05/30/2024 1:21 PM EDT Oxygen Saturation 98% 02/25/2024 1:49 PM EST Inhaled Oxygen Concentration - - Weight 64.4 kg (142 lb) 05/30/2024 1:21 PM EDT Height 149.9 cm (4' 11 ) 05/30/2024 1:21 PM EDT Body Mass Index 28.68 05/30/2024 1:21 PM EDT Plan of Treatment Health Maintenance [...] 04/06/2017, Additional history exists Diabetes: Hemoglobin A1C 08/29/2024 025, 12/24/2023, 08/03/2023, Additional history exists Lipid Panel 10/09/2024 10/10/2023, 04/27, 09/14/2020 Alcohol/Substance Use Screening 02/28/2025 02/29/2024 Depression Screening 02/28/2025 02/29/2024, 02/28/19 SDOH Screening 02/28/2025 02/29/2024 Tobacco Screening 05/30/2025 05/30/2024 DTaP/Tdap/Td Vaccines (4 - Td or Tdap) [...] Procedure Name Priority Date/Time Associated Diagnosis Comments POCT URINALYSIS DIPSTICK Routine 05/30/2024 1:47 PM EDT Acute vaginitis POCT GLYCATED HEMOGLOBIN, TOTAL Routine 05/30/2024 1:30 PM EDT Type 2 diabetes mellitus with microalbuminuria, with long-term current use of insulin ([facility]) POCT GLUCOSE Routine 05/30/2024 1:29 PM EDT Type 2 diabetes mellitus with microalbuminuria, with long-term current use of insulin ([facility]) OBSX1 Routine 03/13/2024 1:30 PM EST COMPREHENSIVE METABOLIC PANEL Routine 03/13/2024 12:34 PM EST PROTHROMBIN TIME-INR Routine 03/13/2024 12:34 PM EST URINALYSIS WITH REFLEX MICROSCOPIC Routine 03/13/2024 12:34 PM EST CBC WITH AUTO DIFFERENTIAL Routine 03/13/2024 12:34 PM EST LIPID PANEL, STANDARD Routine 10/10/2023 2:01 PM EDT from Last 3 Months or Most Recently Relevant to Health Maintenance Results * POCT Urinalysis (05/30/2024 1:47 PM EDT) Color, UA Yellow Clarity, UA Clear Glucose, UA Negative Bilirubin, UA Negative Ketones, UA Negative Spec Grav, UA 1.025 Blood, UA Negative Negative, None Detected pH, UA 5.5 Protein, UA Negative Urobilinogen, UA 0.2 Leukocytes, UA Negative Negative, Rare, Trace Nitrite, UA Negative Negative, None Detected Appearance, UA clear QC Media Lot # [id number] Lot# Expiration Date Urine 05/30/2024 1:47 PM EDT Stephani Liu MD POINT OF CARE TEST ENTER/EDIT OR DERABLES Final Result * (ABNORMAL) POCT HGB A1C (05/30/2024 1:30 PM EDT) Hemoglobin A1C 7.1(A) 4.0 - 6.0 % QC Media Lot # [id number] Lot# Expiration Date , Blood 05/30/2024 1:30 PM EDT Stephani Liu MD POINT OF CARE TEST ENTER/EDIT OR DERABLES Final Result * POCT Glucose (05/30/2024 1:29 PM EDT) Pathologist [facility] Glucose Blood, POC 176 60 - 200 mg/dL QC Media Lot # [id number] Lot# Expiration Date Blood Capillary blood specimen / Unknown 05/30/2024 1:29 PM EDT Stephani Liu MD POINT OF CARE TEST ENTER/EDIT OR DERABLES Final Result * OBSX1 (03/13/2024 1:30 PM EST) [facility] OBS1 NEGATIVE NEGATIVE [facility] 03/13/2024 1:30 PM EST 03/13/2024 1:33 PM EST Generic External Data Provider LAB BLOOD ORDERAB LES Final Result Performing Organization Address City/State/[facility] Co de Phone Number [facility] [address] [place] [phone] * CBC auto differential (03/13/2024 12:34 PM EST) [facility] White Blood Count 6.9 4.8 - 10.8 X10*3/uL [facility] Red Blood Count 4.46 4.20 - 5.50 X10*6/uL [facility] Hemoglobin 13.8 12.0 - 16.0 g/dl [facility] Hematocrit 39.9 37.0 - 47.0 % [facility] Mean Corpuscular Volume 89.5 80.0 - 98.0 fL [facility] Mean Corpuscular Hemoglobin 30.9 27.0 - 33.0 pg [facility] Mean Corpuscular HGB Conc 34.6 31.0 - 35.0 g/dl [facility] Red Cell Distribution Width 12.8 11.0 - 16.0 % [facility] Platelet Count 200 160 - 400 X10*3/uL [facility] Mean Platelet Volume 10.6 9.4 - 12.3 fL [facility] Neutrophils Percent Auto 69.2 45 - 73 % [facility] Imm Gran Pct Auto 0.4 0.0 - 0.4 % [facility] Lymphocytes Percent Auto 22.4 20 - 40 % [facility] Monocytes Percent Auto 6.4 2 - 11 % [facility] Eosinophils Percent Auto 0.9 0 - 4 % [facility] Basophils Percent Auto 0.7 0 - 2 % [facility] NRBC Pct Auto 0.0 0.0 - 0.2 /100WBC [facility] Neutrophils Absolute Auto 4.7 2.0 - 8.3 x10*3/uL [facility] Imm Gran Abs Auto 0.03 0.00 - 0.03 X10*3/uL [facility] Lymphocytes Absolute Auto 1.5 1.2 - 4.9 X10*3/uL [facility] Monocytes Absolute Auto 0.4 0.1 - 1.2 X10*3/uL [facility] Eosinophils Absolute Auto 0.1 0.0 - 0.4 X10*3/uL [facility] Basophils Absolute Auto 0.1 0.0 - 0.2 X10*3/uL [facility] NRBC Abs Auto 0.000 0.0 - 0.012 X10*3/uL [facility] 03/13/2024 12:3 4 PM EST 03/13/2024 12:38 PM EST us Generic External Data Provider LAB BLOOD ORDERAB LES Final Result [facility] [address] [place] [phone] * Urinalysis w/reflex microscopic (03/13/2024 12:34 PM EST) Color Urine Yellow [facility] Appearance Urine Clear [facility] PH 6.0 5.0 - 9.0 [facility] Glucose Urine UA Negative Negative mg/dL [facility] Urine Blood Negative Negative [facility] Specific [place] - Urine <=1.005 1.005 - 1.025 [facility] Urine Protein Negative Neg-Trace mg/dL [facility] Urine Ketones Negative Negative mg/dL [facility] Nitrite Urine Negative Negative [facility] Leukocyte Esterase Urine Negative Negative [facility] 03/13/2024 12:3 4 PM EST 03/13/2024 12:38 PM EST Narrative [facility] - 03/13/2024 12:42 PM EST [id number], Clean Catch Generic External Data Provider LAB URINE ORDERAB LES Final Result Performing Organization Address [facility] Co de Phone Number [facility] [address] [place] [phone] * Prothrombin Time-INR (03/13/2024 12:34 PM EST) Prothrombin Time 11.2 10.9 - 12.4 SEC [facility] INTERNATIONAL NORM RATIO 1.0 0.9 - 1.1 [facility] Comment:INTERNATIONAL NORMAL IZED RATIO (INR) [...] ORDERAB LES Final Result Performing Organization Address [facility] Co de Phone Number [facility] [address] [place] [phone] * (ABNORMAL) Comprehensive Metabolic Panel (03/13/2024 12:34 PM EST) Sodium 142 135 - 145 mmol/L [facility] Potassium 4.7 3.3 - 5.1 mmol/L [facility] Chloride 111(H) 96 - 108 mmol/L [facility] Carbon Dioxide 27 22 - 29 mmol/L [facility] Anion Gap 9(L) 12 - 20 [facility] Urea Nitrogen (BUN) 21(H) 9 - 16 mg/dL [facility] Creatinine, Serum 0.77 0.5 - 1.4 mg/dL [facility] Creatinine Clr Calc Pharmacy 46.0 [facility] Comment:Provided height and weight: 142.24 cm,66.5 kg.eGFR (calculated from the MDRD study equation) and eCrCl(calculated from the Cockcroft-Gault equation) are based ondifferent parameters and may not yield comparable results.If eCrCl result is absurd, please check patient'sheight/weight. Estimated Glomerular Filt Rate >60 [facility] Comment:Chronic Kidney Disea se: Estimated GFR < 60 mL/min/[id number] Kidney Disease: Estimated GFR < 15 mL/min/1.73m2 Glucose 110 60 - 115 mg/dL [facility] Calcium 9.4 8.4 - 10.2 mg/dL [facility] Bilirubin, Total 0.3 0.0 - 1.0 mg/dL [facility] Aspartate Amino Transferase 27 5 - 31 U/L [facility] Alanine Aminotransferase 26 0 - 31 U/L [facility] Total Protein 7.3 6.5 - 8.0 g/dL [facility] Albumin Level 4.0 3.5 - 5.0 g/dL [facility] Alkaline Phosphatase 54 39 - 117 U/L [facility] 03/13/2024 12:3 4 PM EST 03/13/2024 12:38 PM EST us Generic External Data Provider LAB BLOOD ORDERAB LES Final Result Performing Organization Address City/State/[facility] Co de Phone Number [facility] [address] [place] [address] [phone] * (ABNORMAL) Lipid Panel, Standard (10/10/2023 2:01 PM EDT) Triglycerides 158(H) <150 mg/dL [facility] Comment:Desirable Triglyceri de: less than 150 mg/dLBorderline High Triglyceride 150-199 mg/dLHigh Triglyceride: 200-499 mg/dLVery High Triglyceride: greater than or equal to 5OO mg/dL Cholesterol 233(H) <200 mg/dL [facility] Comment:Desirable Cholestero l: less than 200 mg/dLBorderline High Cholesterol: 200-239 mg/dLHigh Cholesterol: greater than 239 mg/dL LDL Cholesterol Calculated 148(H) <100 mg/dL [facility] Comment:Desirable LDL: less than 100 mg/dLNear Optimal/Above Optimal LDL: 110- 129 mg/dLBorderline High LDL: 130-159 mg/dLHigh LDL: 160-189 mg/dLVery High LDL: greater than or equal to 190 mg/dL HDL Cholesterol 54 >40 mg/dL [facility] Comment:Desirable HDL: great er than 40 mg/dL Note: This HDL assay may give artificially low results in patients with liver disease. 10/10/2023 2:01 PM EDT 10/10/2023 2:01 PM EDT us Generic External Data Provider LAB BLOOD ORDERAB LES Final Result Performing Organization Address [facility]/ZIP Co de Phone Number [facility] [address] [place] [address] [phone] from Last 3 Months or Most Recently Relevant to Health Maintenance Insurance [id number] [address] [facility] [address] Care Teams Rod Cup Filler Relationship Specialty Start Date End Date Liset Mitchell MD [address] [place] [phone] PCP - General Family Medicine 09/14/20
--- OUTSIDE RECORDS SUMMARY | 2024-05-30 15:44 | XMS_ITS | Encounter Summary ---
Author Organization [employer] Address 75 [facility] 7t [place] [address] Care Team Providers Care Towel Sorter Name Role Phone Liset Mitchell MD Primary Care Provider [phone] Reason for Visit * Reason Comments Med Refill Encounter Details Date Type Department Care Team ([facility] st Contact Info) Description 04/13/2022 Refill [facility] [address] [place] [address] Liset Mitchell MD [address] [place], [place] [phone] Social History Tobacco Use Types Packs/Day Years [...] documented as of this encounter Care Teams Towel Sorter Relationship Specialty Start Date End Date Liset Mitchell MD [address] [place] [address] PCP - General Family Medicine 09/14/20 documented as of this encounter
--- OUTSIDE RECORDS SUMMARY | 2024-05-30 15:44 | XMS_ITS | Encounter Summary ---
Author Organization [employer] Address [address] [facility] [address] [place] [address] Care Team Providers Care Administrative Support Manager Name Role Phone Liset Mitchell MD Primary Care Provider [phone] Reason for Visit * Reason Onset Date Comments Prior Authorization 05/24/2022 Encounter Details Date Type Department Care Team ([facility] st Contact Info) Description 05/24/2022 Telephone [facility] [address] [place], [place] [phone] Liset Mitchell MD [address] [place], [place] [phone] Prior Authorization Social History Tobacco Use Types [...] documented as of this encounter Care Teams Administrative Support Manager Relationship Specialty Start Date End Date Liset Mitchell MD [address] [place] [address] PCP - General Family Medicine 09/14/20 documented as of this encounter
--- OUTSIDE RECORDS SUMMARY | 2024-05-30 15:44 | XMS_ITS | Encounter Summary ---
Author Organization [employer] Address 75 [facility] 7t [place] [address] Care Team Providers Care Satellite Dish Installer Name Role Phone Liset Mitchell MD Primary Care Provider [phone] Reason for Visit * Reason Onset Date Comments Triage 07/07/2022 Encounter Details Date Type Department Care Team ([facility] st Contact Info) Description 07/07/2022 Telephone [facility] [address] [place], [place] [phone] Liset Mitchell MD [address] [place], [place] [phone] Triage Social History Tobacco Use Types Packs/Day [...] pt has upcomign appt on 08/03/22 with security sergeant. Pt confirmed that new discharge meds are [...] No answer LVM to return call to [facility] triage line. Protocol Used: No [...] The caller accepted this outcome Patient speaks portuguese. documented in this encounter Plan of Treatment Not on file documented as of this encounter Visit Diagnoses Not on filedocumented in this encounter Additional Health Concerns Assessment Noted Time PHQ-9 Depression Total Score: 0 04/13/19 23 10:04 AM EST documented as of this encounter Care Teams Satellite Dish Installer Relationship Specialty Start Date End Date Liset Mitchell MD [address] [place] [phone] PCP - General Family Medicine 09/14/20 documented as of this encounter
--- OUTSIDE RECORDS SUMMARY | 2024-05-30 15:44 | XMS_ITS | Encounter Summary ---
Author Organization [employer] Address 75 [facility] 7t [place] [address] Care Team Providers Care Costuming Supervisor Name Role Phone Liset Mitchell MD Primary Care Provider [phone] Reason for Visit * Reason Onset Date Comments Nurse Triage 05/21/2024 Encounter Details Date Type Department Care Team ([facility] st Contact Info) Description 05/21/2024 Telephone [facility] [address] [place], [place] [phone] Liset Mitchell MD [address] [place], [place] [phone] Nurse Triage Social History Tobacco Use Types [...] Linares LPN - 05/23/2024 12:17 PM EDT [facility] Nurse Jaye advised that company providing STEVEDORING SUPERINTENDENT services is responsible for STEVEDORING SUPERINTENDENT replacement andhours. Unsure who provides those services at this time.. [facility] Nurse to follow as indicated. * Telephone [...] requesting a call back in regards to STEVEDORING SUPERINTENDENT hours and medical assistance. She reports her STEVEDORING SUPERINTENDENT is sick, and needs someone in the interim to help with her daily needs She would also like more STEVEDORING SUPERINTENDENT hours. Please reach out to patient at your earliest convenience. I have two numbers for patients: [phone] * Telephone Encounter - Esperanza Linares LPN - 05/21/2024 2:44 PM EDT Please obtain [facility] ED note from 05/20/24 * Telephone Encounter - Esperanza Linares LPN - 05/21/2024 2:17 PM EDT Triage call to listed number no answer at time of call. Message left to return call to [phone]. Second call placed with ASHANTI Hurst [id number]. Patient confirms she was seen in ED [...] Triage Question: * Patient wants doctor (or STAPLE CUTTER/PA) to measure BP * All higher-acuity triage [...] ED visit on : Date: 05/20/24 Hospital: [facility] Seen for: high blood pressure Symptomatic: [...] documented as of this encounter Care Teams Costuming Supervisor Relationship Specialty Start Date End Date Liset Mitchell MD [address] [place] [phone] PCP - General Family Medicine 09/14/20 documented as of this encounter
--- OUTSIDE RECORDS SUMMARY | 2024-05-30 15:44 | XMS_ITS | Encounter Summary ---
Author Organization [employer] Address 75 [facility] 7t [place] [address] Care Team Providers Care Hydrotechnical Specialist Name Role Phone Liset Mitchell MD Primary Care Provider [phone] Reason for Visit * Reason Onset Date Comments ER Follow-up 01/29/2024 Encounter Details Date Type Department Care Team ([facility] st Contact Info) Description 01/29/2024 Telephone [facility] [address] [place], [place] [phone] Liset Mitchell MD [address] [place], [place] [phone] ER Follow-up Social History Tobacco Use Types [...] t he electric, gas, oil or water [employer] threatened to shut off services in your [...] AM EST Triage call to Pt with [facility] [place] [id number]. Pt was seen in [facility] 01/28/24 for High BP. [...] requesting marianne seen today. ASK apt in [facility] at 140pm today. Pt agrees with [...] ED visit on : Date: 01/28/24 Hospital: [facility] Seen for: High blood pressure [...] documented as of this encounter Care Teams Hydrotechnical Specialist Relationship Specialty Start Date End Date Liset Mitchell MD [address] [place] [address] PCP - General Family Medicine 09/14/20 documented as of this encounter
--- OUTSIDE RECORDS SUMMARY | 2024-05-30 15:44 | XMS_ITS | Data Portability ---
Author Organization [employer], [place] [facility] [employer] Address [address] [place] [address] Care Team Providers Care Publication Manager Name Role Phone HIM CCA OTHER [facility] Primary Care Provider Assessment Encounter Date Assessment Date Assessment LastModified by Organization Details LastModified Time 11/29/2023 11/29/2023 As noted, we orlando mclaughlin called to see this patient regarding concerns of umbilical rash. Evaluation in the field was performed by my electrical journeyman colleague, as noted above, I provided real-time [...] worsening serious symptoms, particularlyfever, chills, abdominal pain [email or web address] Not available 11/29/2023 16:22:01 01/30/2024 01/30/2024 I provided real -time medical direction via phone for this encounter and was available for additional phone-based assistance as needed. I have reviewed and agree with the Assessment and Plan as documented by the Historiography Teacher. Patient given the opportunity to ask questions. Our service contacted for an assessment of: Non adherence with medication to treat hypertension As per above, patient was prescribed amlodipine by either armoured corps officer PCP and is not adherent to medication given the fact this previously caused a known side effect of peripheral edema. Patient states she will not take medications. Denies chest pain, shortness of breath, dyspnea on exertion, any focal neurologic deficits. Per electrical journeyman on the scene, vital signs are stable [...] in the field was performed by my electrical journeyman colleague, as noted above, I provided real-time [...] On the physical exam done by the electrical journeyman, he does not see any sores inside the bilateral Nares. The patient has no shortness of breath. The patient has no respiratory distress. Lung sounds were clear. She had a basically normal exam. He says it is quite dry and inspector raw quartz the house. I wonder if there is [...] was discussed with the patient via the electrical journeyman. An job counselor was used. Pt instructed to have an [...] worsening serious symptoms, particularly fever, excessive bleeding [email or web address] Not available 02/08/2024 11:20:45 03/26/2024 03/26/2024 Ms. [...] Assessment and Plan as documented by the Historiography Teacher. We discussed the diagnostic uncertainty of home [...] in the field was performed by my electrical journeyman colleague, as noted above, I provided real-time [...] Go To The Location Of Their Choice, [address] 10:06:03 urinalysis, dipstick 2024 025 [facility], [address] [place] [address], [id number] 19:53:02 BMP, serum or plasma [address], [address] [place] [address], [id number] 21:24:08 rapid SARS CoV 2 Ag, QL IA, respiratory specimen [address], [address] [place] [address], [id number] 21:24:08 rapid flu (A+B) [address], [address] [place] [address], [phone] 21:24:08 Referral None recorded. Procedures None recorded. Surgeries None recorded. Imaging None recorded. Medication Orders ondansetron HCl (PF) 4 mg/2 mL injection solution [address]/[facility][id number], [address] [place], [address], 21:24:08 sodium chloride 0.9 % intravenous solution 2024 025 [id number] [place], [address], 21:24:08 ondansetron 4 mg disintegrat ing tablet 2024 025 [id number] [address] [place], [address], 5 21:24:10 mupirocin 2 % topical ointment 2023 024 [facility]/Pharmacy #[id number], [address] [place], [address], 4 10:59:37 clotrimazol e 1 % topical cream 2023 024 [facility]/Pharmacy #[id number], [address] [place], [address], 4 10:20:27 Patient TargetsNo targets recorded. Patient InstructionsNo instructions recorded. Reason for Referral None Reported. Results Created Date Observation Date Name Description Value Unit Range Abnormal Flag Note LastModifiedBy Organization Detail LastModifiedTime 03/26/1903/26/2024 rapid SARS CoV 2 Ag, QL IA, respi rator y speci men rapid SARS CoV 2 Ag, QL IA, respiratory specimen negati ve Not Available Main - [facility] [place] ed [address] [place] [address], [id number] 03/26/2024 20:33:01 03/26/19 25 03/26/2024 rapid flu (A+B) Flu negati ve Not Available Main - [facility] [place] ed [address] [place] [address], [id number] 03/26/2024 20:33:02 05/22/19 25 05/23/2024 URINE CULTU RE,CO MPREH ENSIV E urine culture,comp rehensive Final report Not Available [facility] ([facility]) [address] [place], [address], 05/23/2024 10:06:03 05/22/19 25 05/23/2024 URINE CULTU RE,CO MPREH ENSIV E result 1 COMMEN T Mixed uroge nital ty 10,00 0-25, 000 colon y formi ng units per mL Not Available [facility] ([facility]) [address] [place], [address], 05/23/2024 10:06:03 Result Notes None recorded. Medical Equipment None Reported. Allergies Allergen ID Allergen Name Allergen Category Reaction Reaction Severity Criticality Documentation Date Start Date Code Code System Note Provider Name and Address Organization Details Recorded Time 78941 metoprolo l Not available Not available Not available Not available 01/30/2024 6918 RxNorm Not Available [facility] - production 17:06:26 6413 ezetimibe medicatio n Not available Not available Not available 11/29/2023 41236 8 RxNorm Not Available [facility] - production 13:58:51 6414 fluticaso ne Not available Not available Not available Not available 11/29/2023 62585 RxNorm Not Available [facility] - production 13:58:51 6415 hydrocodo ne Not available Not available Not available Not available 11/29/2023 5489 RxNorm Not Available [facility] - production 17:06:26 6416 umeclidin ium medicatio n chest pain Not available Not available 11/29/2023 62199 14 RxNorm Giorgio Pathak MD [address] [place] [address],[address] [facility], [place], [address], [place] [employer] 16:24:27 6417 lisinopri l medicatio n Not available Not available Not available 11/29/2023 29720 RxNorm Not Available [facility] - production 13:58:51 [...] Available Not Available Not Available Dexcom G7 Record Press Operator USE DIRECTED active Not Available Not [...] % 97 /min 16 /min 98.2 [degF] 28839.0 24 g 164 mm[Hg] 72 mm[Hg] Not Available [employer] 4 10:16:47 Date Recorded Body temperature Body weight Oxygen saturation Oxygen saturation in Arterial blood by Pulse oximetry Respiratory rate Heart rate Systolic blood pressure Diastolic blood pressure Provider Name and Address Organization Details Last Updated DateTime 4 97.4 [degF] 27278.8 8 g 99 % 99 % 16 /min 86 /min 162 mm[Hg] 84 mm[Hg] Not Available [employer] 4 21:07:32 Date Recorded Oxygen saturation Oxygen saturation in Arterial blood by Pulse oximetry Heart rate Respiratory rate Body temperature Body weight Systolic blood pressure Diastolic blood pressure Provider Name and Address Organization Details Last Updated DateTime 4 99 % 99 % 78 /min 16 /min 98.2 [degF] 71209.8 8 g 146 mm[Hg] 80 mm[Hg] Not Available [employer] 4 10:51:35 Date Recorded Body height Heart rate Respiratory rate Oxygen saturation Oxygen saturation in Arterial blood by Pulse oximetry Body weight Body temperature Systolic blood pressure Diastolic blood pressure Provider Name and Address Organization Details Last Updated DateTime 5 144.78 cm 83 /min 18 /min 97 % 97 % 06395.0 64 g 98.4 [degF] 153 mm[Hg] 67 [...] 1785 Sosa Donnelly MD Main - [facility] [address] [place] [address] 07/20/2021 17:44:53 11/22/2021 12:52:06 Dysuria 64745962 R30.9 2428 Holland Lewis MD Main - [facility] [address] [place] [address] 08/24/2021 17:49:18 11/17/2021 12:06:10 Adverse reaction to drug 76052191 T50.905A Reports some nausea and fatigue immediatel y after taking hydroxyzin e. Denies palpitatio ns (as in the expect note), chest pain, or chest pressure. Asymptomat ic now and feels back at baseline. Advised she go back to taking the hydroxyzin e once a day and communicat e all medication changes closely with primary care provider. 3329 Narendra Hassan MD Main - [facility] [address] [place] [address] 10/08/2021 16:48:26 11/21/2021 12:43:51 Dysuria 44864152 R30.9 Will await culture prior to treatment given equivocal U/A [id number] Nataliia Gerwal MD Main - [facility] [address] [place] [address] 07/13/2022 17:00:14 07/14/2022 08:55:34 Inguinal pain 195454901 R10.2 58394 Holland Lewis MD Main - [facility] [address] [place] [address] 08/24/2022 12:05:17 08/24/2022 22:29:37 Wheezing 03477336 R06.2 suspect viral-william kimberley bronchospa sm. Patient had some improvemen t with a short course of steroids prescribed last week but symptoms persist. No evidence of bacterial superinfec tion based on available data. Offered DuoNeb and a recurrent course of steroids, but patient declined. She will seek further care with her PCP. Red flags reviewed by electrical journeyman and patient in understand ing. 73072 González Campo MD Main - [facility] [address] [place] [address] 12/12/2022 18:24:35 12/13/2022 22:28:07 Facial swelling 065282082 R22.0 23437 Rich Lee MD Main - [facility] [address] [place] [address] 03/26/2023 19:07:48 03/27/2023 10:52:20 Pain in right foot [id number] 58579 M79.671 This 77-year-ol d female with type 2 diabetes got her right foot caught in a screen today, and she thinks it cut her foot. The electrical journeyman found no visual trauma to her right foot. I recommende d observatio n. She will follow-up with her PCP for any ongoing problems with her foot. The patient agreed with this plan. [id number] Nataliia Grewal MD Main - [facility] [address] [place] [address] 07/17/2023 13:48:23 07/17/2023 17:51:58 Shoulder pain 62230276 M25.519 16019 González Campo MD Main - [facility] [address] [place] [address] 08/10/2023 16:32:57 08/10/2023 21:11:42 Seasonal allergic rhinitis 891183041 J30.2 02678 Luci Corey MD Main - [facility] [address] [place] [address] 10/22/2023 19:42:26 10/22/2023 21:01:10 Nausea 520560476 R11.0 01588 Giorgio Pathak MD Main - [facility] [address] [place] [address] 11/29/2023 10:16:41 11/30/2023 00:42:40 Erythematous rash 399725174 R21 could be cellulitis vs fungal process [id number] Nataliia Grewal MD Main - [facility] [address] [place] [address] 01/30/2024 21:07:30 01/31/2024 08:54:42 Essential hypertension 95050577 I10 14997 PRAMOD SIMONS MD Main - [facility] [address] [place] [address] 02/08/2024 10:51:33 02/08/2024 14:05:30 Lesion of nasal mucosa 018031382 J34.89 00320 GENE BO MD Main - [facility] [address] [place], [place] [address] 03/26/2024 20:30:34 03/26/2024 23:58:55 Nausea and vomiting 57743399 R11.2 66940 Luci Corey MD Main - [facility] [address] [place] [address] 05/21/2024 19:06:00 05/21/2024 21:57:41 Hypertensive disorder 78760107 I10 Abnormal urinalysis 1672 78911 R82.90 Dysuria 89632425 R30.0 Health Concerns Section Related Observation LastModified by Organization Detai ls LastModified Time None Recorded Concern Status LastModified by Organization Details LastModified Time None Recorded Advance Directives Directive None Recorded Payers Encounter Date Sequence Insurance Name Policy Number Policy Valdovinos Covered Member ID Valdovinos Member ID Guarantor Name 11/29/2023 1 [facility] - DOS ON OR AFTER 2022 - DUAL ELIGIBLE - [employer]CI OPTIONS AND ONE CARE (MEDICARE REPLACEMENT/ADV ANTAGE - HMO) Natali Cortes [id number] Natali Cortes 01/30/2024 1 [facility] - DOS ON OR AFTER 2022 - DUAL ELIGIBLE - [employer] OPTIONS AND ONE CARE (MEDICARE REPLACEMENT/ADV ANTAGE - HMO) Natali Cortes [id number] Natali Cortes 02/08/2024 1 [facility] - DOS ON OR AFTER 2022 - DUAL ELIGIBLE - [employer]CI OPTIONS AND ONE CARE (MEDICARE REPLACEMENT/ADV ANTAGE - HMO) Natali Ai Cortes [id number] Natali Cloud Sebastian 03/26/2024 1 [facility] - DOS ON OR AFTER 2022 - DUAL ELIGIBLE - [employer]CI OPTIONS AND ONE CARE (MEDICARE REPLACEMENT/ADV ANTAGE - HMO) Natali Ai Cortes [id number] Natali Carter TomLoni Sebastian 05/21/2024 1 [facility] - DOS ON OR AFTER 2022 - DUAL ELIGIBLE - [employer]CI OPTIONS AND ONE CARE (MEDICARE REPLACEMENT/ADV ANTAGE - HMO) Natali Ai Cortes [id number] Natali Carter Ai Cortes Notes Date Note [...] ...................... ...................... ...................... ...................... ...................... ...................... ......... Historiography Teacher Note From Salazar Jean-Baptiste: Pt co reddish/pnik colored sore in Umbilicus, pt sts she noticed last even when shower Pt sts had leaking fluid however today no discharge or blood. Pt sts is painful when sh bends over. Pt denies fever, NVD, CP, SOB, Headache, dizziness or other abdominal joe Baseline vitals assessed, Photos taken of wound/insect bite and uploaded to [employer] ap febrile, Some pain on palpation. [facility] contacted and bacitracin applied and x for othe antibiotic ointment called in to pt RX for package pick up. Pt education on signs indicating the ER advised if worsens or does not improve in next couple of days to contact pcp. ...................... ...................... ...................... ...................... ...................... ...................... ......... Disposition: Fulfilled Giorgio Pathak MD [address] [facility],[address], [place], [address], [employer] 12/25/2023 21:40:03 01/30/2024 text/html CRC Nurse Triage [...] ...................... ...................... ...................... ...................... ...................... ...................... ......... Historiography Teacher Note From Salazar Jean-Baptiste: Pt wanted BP evaluated. Pt was diagnosed with elevated BP and was prescribed amplodipine and is unwilling to take medications as she feels it causes her lower extremity edema. Pt denies CP, SOB, Headache, dizziness, NVD, abdominal pain. Baseline vitals assessed, WNL, Bp slightly elevated. [facility] contacted and advised pt to contact cardiology for follow up and also PCP. Pt education on signs indicating the ER. ...................... ...................... ...................... ...................... ...................... ...................... ......... [facility] Consulted: Nataliia Grewal ...................... ...................... ...................... ...................... ...................... ...................... ......... Disposition: Fulfilled Nataliia Grewal MD [address] [facility],[address], [place], [address], [employer] 01/30/2024 21:10:54 02/08/2024 text/html CRC Nurse Triage Notes (Vicki Jane - RN): Reason For Request: Pt reporting for about 3 days reporting a blockage in her nose and notes it feels very dry>denies fever/chills>denies headache, denies dizziness. Chief Complaints: Wound care PMH: COPD/Asthma, Hypertension, Diabetes Mellitus Type 2, Hyperlipidemia Comments: Czech speaking member calling to request visit for painful sores inside both nares for the past 3 days. Reports intermittent bleeding. Has been applying vaseline. Does not wear 02. ...................... ...................... ...................... ...................... ...................... ...................... ......... Historiography Teacher Note From Salazar Jean-Baptiste: Pt co sores [...] unable to get good visual inside nostrils. [facility] Kristyn contacted and RX for mupirocin called into pharmacy. Pt advised to use the antibiotic ointment for up to 4-5 days and if no relief to contact PCP for further evaluation. Pt education on signs indicating the ER. ...................... ...................... ...................... ...................... ...................... ...................... ......... [facility] Consulted: Pramod Simons ...................... ...................... ...................... ...................... ...................... ...................... ......... Disposition: Fulfilled PRAMOD SIMONS MD [address] [place] [address],[address], [place], [address], [employer] 02/08/2024 11:21:07 03/26/2024 text/html CRC Nurse Triage [...] allergies. Educated about response time. Dashawn RN Historiography Teacher Organization Information for Gila Rosario Legal Name: [employer]? Address: [address] [place] [id number], Aeronautical Engineering Professor: Miguel Brown MD CLIA No.: [id number] Historiography Teacher POC Test Results from Gila Rosario iSTAT [...] ...................... ...................... ...................... ...................... ...................... ...................... ......... Historiography Teacher Note From Gila Rosario: Sent to a [...] blood draw performed; Chem8+ results: uploaded to [employer]. [facility] consulted and orders rapid covid/flu test; Zofran 4mg IV and Normal Saline 500ml IV. Covid/flu test: neg; Zofran 4mg IV and Normal Saline 500ml IV administered. Pt reports nausea resolved. [facility] sends script to pt's pharmacy. IV removed. Red flags discussed. Pt has no further questions. ...................... ...................... ...................... ...................... ...................... ...................... ......... [facility] Consulted: Gene Bo ...................... ...................... ...................... ...................... ...................... ...................... ......... Disposition: Fulfilled GENE BO MD [address] [facility],[address], [place], [address] [employer] 03/26/2024 22:16:21 05/21/2024 text/html HPI: Ezetimibe? D [...] 05/21/2024:47 Allergies Reviewed at 05/21/2024:47 Comments: HPI [facility] HPI: Historiography Teacher Organization Information for Sky Rubio Loni Romero Legal Name: [facility] Address: [address] [place] [address], Aeronautical Engineering Professor: Miguel LYN No.: [id number] Historiography Teacher POC Test Results from Rubio Swanson Urine [...] 05/21/2024:47 Allergies Reviewed at 05/21/2024:47 Comments: HPI [facility] HPI: seen yesterday at ED for high blood pressure. neg lab and ekg work up. having dysuria, as well. 200/100s yesterday. 180/70 today. no kumar, vision changes, chest pain. called PCP for appt but not appt yet.HTN meds: amlodipine - 5mg; last filled Feb 3Also on qhs insulin, clopidogrel, sertraline, aspirin ...................... ...................... ...................... ...................... ...................... ...................... ......... Historiography Teacher Note From Rubio Swanson: dispatched for a 78yo female with hypertension and burning urination. Pt reports she was seen yesterday at [facility] for hypertension. Pt reports BP was 200+/100+. Pt was discharged with no finding. Pt reports she called today because she needs med changes to manage bp and recent burning urination. Pt denies h/a, dizziness, cp, sob or nausea at this time. [facility] consulted. Urine dip and lab send out order. Pt informed she can increase her amlodipine from 5mg to 10mg until she can get into her armoured corps officer. [facility] informs pt to make sure she follows up with PCP or armoured corps officer. Pt informed of red flags. Pt states she understands. Pt found walking and speaking in full clear sentences with no signs of distress. AO and GCS-15. PERRL. Skin warm/dry. Airway open and lung sounds clear. ABD soft nontender. BGL:291. Rest of exam unremarkable. [facility] Lab Orders: culture, urine: Performed urinalysis, dipstick: Performed ...................... ...................... ...................... ...................... ...................... ...................... ......... [facility] Consulted: Luci Corey ...................... ...................... ...................... ...................... ...................... ...................... ......... Disposition: Fulfilled Luci Corey MD [address] [place] [address],[address], [place], [address], TYLER LUEVANO 05/21/2024 20:47:38 OBGyn Episode No OBEpisode recorded.
--- OUTSIDE RECORDS SUMMARY | 2024-05-30 15:44 | XMS_ITS | Encounter Summary ---
Author Organization [employer] Address [address] [facility] [address] [place] [address] Care Team Providers Care Commercial Fishing Vessel Operator Name Role Phone Liset Mitchell MD Primary Care Provider Encounter Details Date Type Department Care Team (Late st Contact Info) Description 01/30/2024 Orders Only [facility] [address] [place], [place] [phone] Provider, MD Anne Marie Social History Tobacco [...] documented as of this encounter Care Teams Commercial Fishing Vessel Operator Relationship Specialty Start Date End Date Liset Mitchell MD [address] [place] [id number] PCP - General Family Medicine 09/14/20 documented as of this encounter
--- OUTSIDE RECORDS SUMMARY | 2024-05-30 15:44 | XMS_ITS | Encounter Summary ---
Author Organization [employer] Address [address] [facility] [address] [place] [address] Care Team Providers Care Decorative Engraver Name Role Phone Liset Mitchell MD Primary Care Provider [phone] Encounter Details Date Type Department Care Team (Late st Contact Info) Description 02/05/2024 Orders Only [facility] [address] [place], [place] [phone] Provider, MD Anne Marie Social History Tobacco [...] documented as of this encounter Care Teams Decorative Engraver Relationship Specialty Start Date End Date Liset Mitchell MD [address] [place] [address] PCP - General Family Medicine 09/14/20 documented as of this encounter
--- OUTSIDE RECORDS SUMMARY | 2024-05-30 15:45 | XMS_ITS | Encounter Summary ---
Author Organization [employer] Address [address] [facility] [address] [place] [address] Care Team Providers Care Food And Beverage Order Clerk Name Role Phone Liset Mitchell MD Primary Care Provider [phone] Encounter Details Date Type Department Care Team (Latest Contact Info) Description 05/30/2024 Travel Social History Tobacco Use Types Packs/Day Years [...] documented as of this encounter Care Teams Food And Beverage Order Clerk Relationship Specialty Start Date End Date Liset Mitchell MD [address] [place] [address] PCP - General Family Medicine 09/14/20 documented as of this encounter
--- OUTSIDE RECORDS SUMMARY | 2024-05-30 15:45 | XMS_ITS | Encounter Summary ---
Author Organization [employer] Address [address] [facility] 7t [place] [address] Care Team Providers Care Bug Trimmer Name Role Phone Liset Mitchell MD Primary Care Provider [phone] Reason for Visit * Reason Comments Med Change Request Encounter Details Date Type Department Care Team ([facility] st Contact Info) Description 09/08/2023 Refill [facility] MED & PEDS [address] [place], [place] [phone] Rubio Blum MD [address] [place], [place] [phone] Social History Tobacco Use Types Packs/Day Years [...] t he electric, gas, oil or water [employer] threatened to shut off services in your [...] documented as of this encounter Care Teams Bug Trimmer Relationship Specialty Start Date End Date Liset Mitchell MD [address] [place] [id number] PCP - General Family Medicine 09/14/20 documented as of this encounter
--- OUTSIDE RECORDS SUMMARY | 2024-05-30 15:45 | XMS_ITS | Encounter Summary ---
Author Organization [employer] Address [address] [facility] 7t [place] [address] Care Team Providers Care Small Battery Plate Assembler Name Role Phone Liset Mitchell MD Primary Care Provider [phone] Encounter Details Date Type Department Care Team (Late st Contact Info) Description 05/30/2024 1:00 PM EDT Office Visit [facility] CHC MED & PEDS [address] [place], [place] [phone] Stephani Liu MD [address] [place], [place] [phone] Acute vaginitis (Primary Dx); Type 2 diabetes mellitus with microalbuminuria, with long-term current use of insulin ([facility]) Social History Tobacco Use Types [...] your housing situation today? I have ciro sing 02/29/[address] you li [...] AM EDT documented as of this encounter Last Filed Vital Signs Vital Sign Reading Time Taken Comments Blood Pressure 139/71 05/30/2024 1:21 PM EDT Pulse 64 05/30/2024 1:21 PM EDT Temperature 36.7 ??C (98.1 ??F) 05/30/2024 1:21 PM ED T Respiratory Rate 18 05/30/2024 1:21 PM EDT Oxygen Saturation - - Inhaled Oxygen Concentration - - Weight 64.4 kg (142 lb) 05/30/2024 1:21 PM EDT Height 149.9 cm (4' 11 ) 05/30/2024 1:21 PM EDT Body Mass Index 28.68 05/30/2024 1:21 PM EDT documented in this encounter Progress Notes * Stephani Liu MD - 05/30/2024 1:00 PM EDT Subjective Patient ID: Natali Santos is a 78 y.o. female who presents for No chief complaint on file.. Vaginal Itching The patient's primary symptoms include genital itching and a genital odor. The patient's pertinent negatives include no pelvic pain or vaginal discharge. This is a new problem. The current episode started in the past 7 days. The problem occurs constantly. The problem has been gradually worsening. Pertinent negatives include no headaches. She is postmenopausal. Review of Systems Constitutional: Negative. Respiratory: Negative. Negative for shortness of breath. Cardiovascular: Negative for chest pain and palpitations. Gastrointestinal: Negative. Genitourinary: Negative. Negative for pelvic pain and vaginal discharge. Musculoskeletal: Negative for neck pain. Neurological: Negative for headaches. Objective Physical Exam Constitutional: Appearance: Normal appearance. Cardiovascular: Rate and Rhythm: Normal rate and regular rhythm. Pulses: Normal pulses. Heart sounds: Normal heart sounds. Pulmonary: Effort: Pulmonary effort is normal. Abdominal: General: Abdomen is flat. Genitourinary: Vagina: Normal. Cervix: Normal. Neurological: Mental Status: She is alert. Assessment/Plan Diagnoses and all orders for this visit: Acute vaginitis Comments: Started on Flagyl and Diflucan Swabs sent out Advised to keep area clean and avoid itching Orders: - POCT Urinalysis - Bacterial Vaginosis Panel Type 2 diabetes mellitus with microalbuminuria, with long-term current use of insulin ([facility]) - POCT Glucose - POCT HGB A1C Other orders - metroNIDAZOLE (Flagyl) 500 MG tablet; Take 1 tablet (500 mg) by mouth 2 times daily for 7 days. - fluconazole (Diflucan) 150 MG tablet; Take 1 tab today and next after 5 days documented in this encounter Plan of Treatment Scheduled Orders Name Type Priority Associated Diagnoses Orde r Schedule Bacterial Vaginosis Panel Microbiology Routine Acute vaginitis Ordered: 05/30/2024 documented as of this encounter Procedures Procedure Name Priority Date/Time Associated Diagnosis Comments POCT URINALYSIS DIPSTICK Routine 05/30/2024 1:47 PM EDT Acute vaginitis POCT GLYCATED HEMOGLOBIN, TOTAL Routine 05/30/2024 1:30 PM EDT Type 2 diabetes mellitus with microalbuminuria, with long-term current use of insulin ([facility]) POCT GLUCOSE Routine 05/30/2024 1:29 PM EDT Type 2 diabetes mellitus with microalbuminuria, with long-term current use of insulin ([facility]) documented in this encounter Results * POCT Urinalysis (05/30/2024 1:47 PM [...] Expiration Date Urine 05/30/2024 1:47 PM EDT us Stephani Liu MD POINT OF CARE TEST ENTER/EDIT OR DERABLES Final Result * (ABNORMAL) POCT HGB A1C (05/30/2024 1:30 PM EDT) Hemoglobin A1C 7.1(A) 4.0 - 6.0 % QC Media Lot # [id number] Lot# Expiration Date Blood 05/30/2024 1:30 PM EDT us Stephani Liu MD POINT OF CARE TEST ENTER/EDIT OR DERABLES Final Result * POCT Glucose (05/30/2024 1:29 PM EDT) Glucose Blood, POC 176 60 - 200 mg/dL QC Media Lot # [id number] Lot# Expiration Date Blood Capillary blood specimen / Unknown 05/30/2024 1:29 PM EDT us Stephani Liu MD POINT OF CARE TEST ENTER/EDIT OR DERABLES Final Result documented in this encounter Visit Diagnoses Diagnosis Acute vaginitis- Primary Unspecified vaginitis and vulvovaginitis Type 2 diabetes mellitus with microalbuminuria, with long-term current use of insulin ([facility]) documented in this encounter Additional Health Concerns Assessment Noted Time PHQ-9 Depression Total Score: 4 02/28/19 25 9:06 AM EST documented as of this encounter Care Teams Small Battery Plate Assembler Relationship Specialty Start Date End Date Liset Mitchell MD [address] [place] [address] PCP - General Family Medicine 09/14/20 documented as of this encounter
--- OUTSIDE RECORDS SUMMARY | 2024-05-30 15:45 | XMS_ITS | Encounter Summary ---
Author Organization [employer] Address [address] [facility] [address] [place] [address] Care Team Providers Care Informatics Spec Name Role Phone Liset Mitchell MD Primary Care Provider [phone] Reason for Visit * Reason Onset Date Comments Results 10/11/2023 Appointment Request 10/11/2023 Encounter Details Date Type Department Care Team ([facility] st Contact Info) Description 10/11/2023 Telephone [facility] [address] [place] [address] Liset Mitchell MD [address] [place], [place] [phone] Results; Appointment Request Social History Tobacco Use [...] a appt in regards to getting a SENIOR MAJOR GIFTS OFFICER states is in need documented in this encounter Plan of Treatment Not on file documented as of this encounter Visit Diagnoses Not on filedocumented in this encounter Additional Health Concerns Assessment Noted Time PHQ-9 Depression Total Score: 0 04/13/19 23 10:04 AM EST documented as of this encounter Care Teams Informatics Spec Relationship Specialty Start Date End Date Liset Mitchell MD [address] [place] [address] PCP - General Family Medicine 09/14/20 documented as of this encounter
--- OUTSIDE RECORDS SUMMARY | 2024-05-30 15:45 | XMS_ITS | Clinical Summary ---
Author Organization [facility] Address [address] [place] [address] Phone Care Team Providers Care Nutrition Aide Name Role Phone Liset Mitchell MD Primary Care Provider [phone] Allergies Active Allergy Reactions Criticality Noted Date [...] 07/24/2018 DX:Type 2 diabetes mellitus without complication ([facility]) HTN (hypertension) DX:HTN (hyper tension) GERD (gastroesophageal reflux disease) DX:GERD (gastroesophageal reflux disease) Depression DX:Depression 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 ([facility]) DX:Insulin dependent type 2 diabetes mellitus ([facility]) Social History Tobacco Use Types Packs/Day Years [...] mmol/L LAB CHEMISTRY METHOD 01/26/2024 5:18 AM [facility] Potassium 4.1 3.5 - 5.5 mmol/L LAB CHEMISTRY METHOD 01/26/2024 5:18 AM [facility] Chloride 108 96 - 110 mmol/L LAB CHEMISTRY METHOD 01/26/2024 5:18 AM [facility] CO2 28 21 - 32 mmol/L LAB CHEMISTRY METHOD 01/26/2024 5:18 AM [facility] Anion Gap 5 3 - 11 LAB CHEMISTRY METHOD 01/26/2024 5:18 AM [facility] Glucose 154(H) 70 - 100 mg/dL LAB CHEMISTRY METHOD 01/26/2024 5:18 AM [facility] BUN 25 5 - 25 mg/dL LAB CHEMISTRY METHOD 01/26/2024 5:18 AM [facility] Creatinine 0.87 0.50 - 1.10 mg/dL LAB CHEMISTRY METHOD 01/26/2024 5:18 AM [facility] eGFR 68 >=60 mL/min/1. 73m2 LAB CHEMISTRY METHOD 01/26/2024 5:18 AM [facility] Comment:Calculation based on the??Chronic Kidney Disease Epidemiology Collaboration (CKD-EPI) equation refit??without adjustment for race. BUN/Creatinine Ratio 28.7 LAB CHEMISTRY METHOD 01/26/2024 5:18 AM [facility] Calcium 9.7 8.5 - 10.5 mg/dL LAB CHEMISTRY METHOD 01/26/2024 5:18 AM [facility] AST (SGOT) 20 10 - 42 unit/L LAB CHEMISTRY METHOD 01/26/2024 5:18 AM [facility] ALT (SGPT) 33 10 - 60 unit/L LAB CHEMISTRY METHOD 01/26/2024 5:18 AM [facility] Alkaline Phosphatase 58 42 - 121 unit/L LAB CHEMISTRY METHOD 01/26/2024 5:18 AM [facility] Total Protein 7.1 6.0 - 8.0 g/dL LAB CHEMISTRY METHOD 01/26/2024 5:18 AM [facility] Albumin 3.9 3.2 - 5.0 g/dL LAB CHEMISTRY METHOD 01/26/2024 5:18 AM [facility] Total Bilirubin 0.5 0.0 - 1.4 mg/dL LAB CHEMISTRY METHOD 01/26/2024 5:18 AM [facility] Blood Venous blood specimen / Unknown Venipuncture / Unknown 01/26/2024 4:23 AM EST 01/26/2024 4:44 AM EST us Emilia Marr MD LAB BLOOD ORDERABLES Fin al Result [facility] [address] [place] [address], from Last 3 Months or Most Recently Relevant to Health Maintenance Insurance [facility] MEDICARE Member Subscriber Plan / Payer (Ef fective 2012-Present) Name:Natali Bower Relation to Subscriber:Self Name:Natali Bower Payer ID:[id number] Group ID:[id number] Type:Not on file Address: [place] [address] [address] [place] [address] Care Teams Nutrition Aide Relationship Specialty Start Date End Date Liset Mitchell MD [address] [place] [address] PCP - General 08/09/21
--- OUTSIDE RECORDS SUMMARY | 2024-05-30 15:45 | XMS_ITS | Encounter Summary ---
Author Organization [employer] Address [address] [facility] 7t [place] [address] Care Team Providers Care Pilot Manager Name Role Phone Liset Mitchell MD Primary Care Provider [phone] Reason for Visit * Reason Comments Med Change Request Encounter Details Date Type Department Care Team ([facility] st Contact Info) Description 10/02/2022 Refill [facility] MED & PEDS [address] [place], [place] [phone] Carla Cheng MD [address] [place] [address] Social History Tobacco Use Types Packs/Day Years [...] documented as of this encounter Care Teams Pilot Manager Relationship Specialty Start Date End Date Liset Mitchell MD [address] [place] [address] PCP - General Family Medicine 09/14/20 documented as of this encounter
--- OUTSIDE RECORDS SUMMARY | 2024-05-30 15:45 | XMS_ITS | Encounter Summary ---
Author Organization [employer] Address [address] [facility] [address] [place] [address] Care Team Providers Care Vocational Rehabilitation Specialist Name Role Phone Liset Mitchell MD Primary Care Provider [phone] Reason for Visit * Reason Onset Date Comments ER Follow-up 05/15/2023 Encounter Details Date Type Department Care Team ([facility] st Contact Info) Description 05/15/2023 Telephone [facility] [address] [place], [place] [phone] Liset Mitchell MD [address] [place], [place] [phone] ER Follow-up Social History Tobacco Use Types [...] answer. LM to call us back in Albanian. Routing back to [facility] nurses. * Telephone Encounter - Sammy Hall - 05/15/2023 4:01 PM EDT Tc from pt returning phone call. * Telephone Encounter - Julieta Montalvo RN - 05/15/2023 3:29 PM EDT TC placed to patient x 2 regarding ED visit below via [place] [employer] and without spool worker line. Patient has extended f/u with PCP on 05/25/23. Noted in appointment about recent ED visit for R shoulder pain/dislocation. LM for patient in Albanian that we are calling to check in and hope she is feeling better, remindingof upcoming appointment with PCP on 05/25/23 @ 11:15 and asking her to call us if she needs anythingprior to this appointment or needs a sooner appointment. Routing to PCP so she is aware. Patient calling to report ED visit on : Date: 05/13 [place] [facility] Seen for: Extremity Injury, Upper shoulder pain while taking x-rays Patient advised will forward to team nurse for follow up * Telephone Encounter - Daniel Franklin - 05/15/2023 11:06 AM EDT Patient calling to report ED visit on : Date: 05/13 [place] [facility] Seen for: Extremity Injury, Upper shoulder pain [...] documented as of this encounter Care Teams Vocational Rehabilitation Specialist Relationship Specialty Start Date End Date Liset Mitchell MD [address] [place] [address] PCP - General Family Medicine 09/14/20 documented as of this encounter
--- OUTSIDE RECORDS SUMMARY | 2024-05-30 15:45 | XMS_ITS | Encounter Summary ---
Author Organization [employer] Address [address] [facility] 7t [place] [address] Care Team Providers Care Manufacturing Engineer Automotive Name Role Phone Liset Mitchell MD Primary Care Provider [phone] Reason for Visit * Reason Comments Med Change Request Encounter Details Date Type Department Care Team ([facility] st Contact Info) Description 10/26/2023 Refill [facility] CHC MED & PEDS [address] [place], [place] [phone] Liset Mitchell MD [address] [place], [place] [phone] Social History Tobacco Use Types Packs/Day Years [...] documented as of this encounter Care Teams Manufacturing Engineer Automotive Relationship Specialty Start Date End Date Liset Mitchell MD [address] [place] [address] PCP - General Family Medicine 09/14/20 documented as of this encounter
[2024-05-31 13:49] LABS: Bacterial Vaginosis PCR NEGATIVE (Negative); Candida Group PCR NOT DETECTED (Not Detect); Candida glab krusei PCR NOT DETECTED (Not Detect); Trichomonas vaginalis PCR NOT DETECTED (Not Detect)
== END 2024-05-30 13:57 | disposition home or self-care (01) ==
LOC: HO.CHCLNP 13:56
PROVIDERS: Visit Provider Student in an Organized Health Care Education/Training Program
DX: N76.0 Acute vaginitis (principal)
CPT/HCPCS: 81515; 99212

== ENCOUNTER → 2024-06-11 09:46 | Outpatient (BNVA) | payer OTHER, SELFPAY | PROVIDERS: PCP Family Medicine; Visit Provider Nurse Practitioner Family ==

== ENCOUNTER 2024-06-26 10:28 | Emergency (ER) | payer OTHER, SELFPAY ==
[2024-06-26 10:38] VITALS: BP 157/90; PULSE 70; O2SAT 97
[2024-06-26 10:43] VITALS: BP 147/59; PULSE 60; RESP 18; TEMP 36.8; O2SAT 97; BMI 30.9
--- NOTE | 2024-06-26 11:09 | PC.NURSE ---
Report received. Taken over care at this time.
--- NOTE | 2024-06-26 11:44 | ECG_ITS ---
Test Reason : anxiety Blood Pressure : */* mmHG Vent. 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
--- NOTE | 2024-06-26 12:30 | ED_ITS ---
HPI - Anxiety General Chief Complaint: Anxiety Stated Complaint: PT STS ANXIETY ABOUT BP 200/107,168/70 PER EMS Time Seen by Provider: 06/26/24 11:20 Source: patient and other ([employer]) Mode of arrival: ambulatory Limitations: no limitations History of Present Illness ED Provider: ALESSANDRA MURRY PA-C HPI narrative: 78 year old swedish speaking female with pmhx significant for HTN, ROXIE, ASCVD, asthma, dyslipidemia presents to the ED today via EMS for evaluation of increased anxiety related to her blood pressure readings. Reports checking her blood pressure yesterday morning and noted it to be 200/107. She did not take either dose of her home blood pressure medication yesterday prior to checking her blood pressure. She was asymptomatic at that time however called EMS for transport to [facility] for further eval. She tells me she received a full work up and was given a pill for her blood pressure and discharged home with outpatient follow up around 0500 this morning. Later today, reports checking her blood pressure again at home and noted it to be elevated to 190/100. she was asympatomatic and called EMS for transport to our facility for further evaluation. She is accompanied by her [employer]. Her only concern right now is anxiety around her elevated BP readings. She reports long standing history of elevated blood pressure. This is managed by both her PCP and cost specialist, Dr. Spencer. She tells me her BP meds were adjusted a few months ago. At that time she was started on carvedlol BID which she has been taking as prescribed. Denies any physical concerns at present. Denies headache, dizziness, vision changes, chest pain, palpitations, SOB, N/V, abd pain. Related Data Home Medications ?Medication ?Instructions ?Recorded ?Confirmed lancets (OneTouch UltraSoft #100 ea 01/06/20 05/30/24 Lancets) pen needle, diabetic 32 gauge x #50 ea 08/17/20 05/30/24 simethicone 125 mg capsule (Gas 0 mg PO 11/26/20 05/30/24 Relief Extra Strength) spironolactone 25 mg tablet 25 mg PO DAILY 11/26/20 05/30/24 latanoprost 0.005 % eye drops 1 drp ophthalmic (eye) BEDTIME 07/26/22 05/30/24 pioglitazone 45 mg tablet 45 mg PO DAILY 11/21/22 05/30/24 sertraline 50 mg tablet 50 mg PO DAILY 06/18/23 05/30/24 ipratropium bromide 21 mcg (0.03 intranasal 08/16/23 05/30/24 %) nasal spray insulin glargine 100 unit/mL (3 20 unit subcut DAILY 10/10/23 05/30/24 mL) subcutaneous pen (Lantus Solostar U-100 Insulin) Previous Rx's ?Medication ?Instructions ?Recorded blood sugar diagnostic (OneTouch #100 ea 01/07/20 Verio test strips) blood-glucose meter (OneTouch #1 ea 01/07/20 Verio Meter) inhalational spacing device #1 ea 01/25/21 (Aerochamber MV spacer) albuterol sulfate 90 mcg/actuation 2 puff PO Q4H PRN for wheezing 30 11/21/22 aerosol inhaler (Ventolin HFA) days #18 ea budesonide 32 mcg/actuation nasal 2 spray intranasal DAILY 30 days 11/21/22 spray #8.43 mL ipratropium 0.5 mg-albuterol 3 mg 3 ml inhalation Q6H PRN for 03/30/23 (2.5 mg base)/3 mL nebulization wheezing #180 mL soln budesonide 0.5 mg/2 mL suspension 0.5 mg (2 mL) inhalation BID 30 05/21/23 for nebulization days #120 mL acetaminophen 500 mg tablet 500 mg PO Q6H PRN fever or pain 08/10/23 #14 tabs sennosides 8.6 mg-docusate sodium 2 tab-cap (2 x 8.6-50 mg) PO 08/16/23 50 mg tablet (Senna with Docusate BEDTIME PRN constipation 60 days Sodium) #120 tabs fluticasone propionate 115 2 puff PO Q12H #12 ea 12/11/23 mcg-salmeterol 21 mcg/actuation HFA inhaler (Advair HFA) lubiprostone 8 mcg capsule 8 mcg PO BID 30 days #60 caps 03/31/24 (Amitiza) alirocumab 75 mg/mL subcutaneous 75 mg subcut Q14D 90 days #6 mL 05/30/24 pen injector (Praluent Pen) carvedilol 3.125 mg tablet 3.125 mg PO BID #60 tabs 05/30/24 clopidogrel 75 mg tablet 75 mg PO DAILY #90 tabs 05/30/24 Allergies Allergy/AdvReac Type Severity Reaction Status Date / Time fluticasone [Flovent HFA] Allergy Unknown lip Verified 06/26/24 10:52 swelling lisinopril Allergy Itching Verified 06/26/24 10:52 umeclidinium AdvReac Intermediate Chest Pain Verified 06/26/24 10:52 [From Incruse Ellipta] empagliflozin [Jardiance] AdvReac Unknown vaginal Verified 06/26/24 10:52 itch metformin AdvReac Unknown stomach Verified 06/26/24 10:52 pain sitagliptin [Januvia] AdvReac Unknown stomach Verified 06/26/24 10:52 pain acetaminophen [From Percocet] AdvReac Nausea and Verified 06/26/24 10:52 Vomiting hydrocodone [From Vicodin] AdvReac Nausea and Verified 06/26/24 10:52 Vomiting ibuprofen [From Motrin] AdvReac Stomach Verified 06/26/24 10:52 Upset oxycodone [From Percocet] AdvReac Nausea and Verified 06/26/24 10:52 Vomiting Review of Systems 2 Review of Systems: Yes all other systems are reviewed and are negative PMFSH Past Medical History Attestation statement: The following information was validated with the patient. Source: old records reviewed and nursing notes reviewed Medical History Dysphagia Tracheobronchomalacia ROXIE (obstructive sleep apnea) Essential hypertension Atherosclerotic cardiovascular disease Urinary incontinence Obese Dyslipidemia Anxiety and depression Gastric pain Sinusitis Chronic allergic rhinitis Asthma Cough Cough Diabetes mellitus Fibromyalgia Pulmonary nodules Surgical History H/O heart artery stent Hx of esophagogastroduodenoscopy History of bronchoscopy Hx of colonoscopy H/O left knee surgery H/O breast biopsy H/O: hysterectomy Family History Family History Father Hypertension Mother Hypertension Diabetes Daughter Diabetes Brother No problems noted. Social History Social History Household Members: Children Unable to assess alcohol history related to: Unknown Alcohol intake: former Patient Tobacco Use Status: Never used Tobacco Smoked in Last 30 Days: No Second Hand Smoke Exposure: Yes Use of substances other than those prescribed or required for medical reasons: No Advance Directives: No Advance Directives Information Provided: Yes Do you have a plan to hurt others: No Plan Physical Exam 2 Vital Signs: Vital Signs: Last Vital Signs Temp 98.5 F 06/26/24 13:59 Pulse 64 06/26/24 13:59 Resp 18 06/26/24 13:59 BP 157/59 H 06/26/24 13:59 Pulse Ox 97 06/26/24 13:59 O2 Del Method Room Air 06/26/24 13:59 BMI result Body Mass Index 30.9 Afebrile. hypertensive to 147/59. General: Well appearing, in no acute distress. Skin: Warm, dry, intact. No rashes or lesions. Head: Normocephalic, atraumatic. EENT: Hearing is intact b/l. Conjunctiva clear. Sclera is anicteric. PERRLA. Neck: Supple without LAD. Cardiac: Chest wall symmetric. RRR. Lungs: Normal respiratory effort without accessory muscle use. CTA bilaterally. Abdomen: Soft, non-tender, non-distended. No rebound tenderness or guarding. Positive BS x4. Ext: Upper and lower extremities atraumatic, without tenderness, deformity, swelling or erythema. Neuro: AOx3. Normal speech. exam nonfocal. Course Course Course Narrative: CBC without leukocytosis or left shift. no anemia, h&h stable. chemistry without acute electrolyte abnormality requiring intervention. renal function around baseline. random glucose 128. normal liver function. ekg showing sinus bradycardia, no acute ischemic changes or st elevations - pt on beta myra. > patient is asymptomatic. BP relatively controlled (140s/50)s. within acceptable range. [facility] - I have not heard back. given unremarkable workup, stable vitals, and benign exam, I feel patient is stable for discharge home with plan to continue home meds + follow up with outpatient providers. her and her [employer] are agreeable. Patient has remained stable throughout ED visit today. Discussed worrisome signs and symptoms and when to return to the ED. All questions answered at this time. Patient is agreeable with disposition and stable for discharge. Medical Decision Making Medical Decision Making [facility] Narrative: 78 year old swedish speaking female with pmhx significant for HTN, ROXIE, ASCVD, asthma, dyslipidemia presents to the ED today via EMS for evaluation of increased anxiety related to her blood pressure readings. BP mildlly elevated to 147/59, vitals otherwise wnl. well appearing and in NAD. exam benign. Differential diagnosis includes anemia, electrolyte abnormality, dehydration, SHAKIR, hypertension, hypertensive urgency v emergency. unlikely ACS, ICH. Plan for screening labs, ekg, vital check Differential Diagnosis Differential Diagnoses: The differential diagnosis associated with the presentation includes as above. Admission/Observation not indicated. Lab Data [facility] Lab Attestation statement: I reviewed the patient's lab results. as above. 06/26/24 12:41 06/26/24 12:41 Labs: Lab Results 06/26/24 Range/Units 12:41 WBC 5.6 (4.8-10.8) X10*3/uL RBC 4.78 (4.20-5.50) X10*6/uL Hgb 14.8 (12.0-16.0) g/dl Hct 42.7 (37.0-47.0) % MCV 89.3 (80.0-98.0) fL MCH 31.0 (27.0-33.0) pg MCHC 34.7 (31.0-35.0) g/dl RDW 12.9 (11.0-16.0) % Plt Count 173 (160-400) X10*3/uL MPV 10.6 (9.4-12.3) fL Immature Gran % (Auto) 0.4 (0.0-0.4) % Neut % (Auto) 62.5 (45-73) % Lymph % (Auto) 29.0 (20-40) % [place] % (Auto) 6.2 (2-11) % Eos % (Auto) 1.2 (0-4) % Baso % (Auto) 0.7 (0-2) % Lymph # (Auto) 1.6 (1.2-4.9) X10*3/uL [place] # (Auto) 0.4 (0.1-1.2) X10*3/uL Eos # (Auto) 0.1 (0.0-0.4) X10*3/uL Baso # (Auto) 0.0 (0.0-0.2) X10*3/uL Abs Immat Gran (auto) 0.02 (0.00-0.03) X10*3/uL Absolute Neuts (auto) 3.5 (2.0-8.3) x10*3/uL Absolute Nucleated RBC 0.000 (0.0-0.012) X10*3/uL Nucleated RBC % (auto) 0.0 (0.0-0.2) /100WBC Sodium 142 (135-145) mmol/L Potassium 4.2 (3.3-5.1) mmol/L Chloride 105 (96-108) mmol/L Carbon Dioxide 27 (22-29) mmol/L Anion Gap 14 (12-20) BUN 20 H (9-16) mg/dL Creatinine 0.78 (0.5-1.4) mg/dL Estim Creat Clear Calc 43.9 Estimated GFR > 60 Random Glucose 128 H (60-115) mg/dL Calcium 9.8 (8.4-10.2) mg/dL Magnesium 2.0 (1.6-2.6) mg/dL Total Bilirubin 0.6 (0.0-1.0) mg/dL AST 31 (5-31) U/L ALT 29 (0-31) U/L Alkaline Phosphatase 47 (39-117) U/L Total Protein 7.1 (6.5-8.0) g/dL Albumin 4.2 (3.5-5.0) g/dL Independent Interpretation I performed an independent interpretation of an: EKG Interpretation: ekg showing sinus bradycardia to 56 bpm, no acute ischemic changes or st elevations Radiology Impression Discussion of test interpretation with radiology: I have reviewed the radiologist's reading. Independent Historian Clinical information obtained from an independent historian. History obtained from or confirmed by: EMS and Other ([employer]) External Record Review External record reviewed: Inpatient record Chronic Conditions Patient?s care impacted by: Hypertension Social Determinants Patient?s care significantly limited by Social Determinants of Health including: Other Social Determinant of Health Critical Care Time Critical Care Time Critical Care Time: No Discharge Plan Discharge Clinical Impression: Essential hypertension Patient Disposition: Home, Self-Care Instructions: DASH Eating Plan (ED), Hypertension (ED) Additional Instructions: Your blood pressure today remained stable. Your workup today is reassuring. Please continue your home blood pressure medications as prescribed. Do not skip any doses. Follow up with your cost specialist as planned this week. I advised you to monitor your blood pressure every other day so that you have a log to show your providers. They may need to adjust your medications based on your home reads. Return with any new or worsening symptoms. In the case of an emergency call 911. Prescriptions: No Action (DME) lancets [OneTouch UltraSoft Lancets] Misc See Rx Instructions .ROUTE .MEDSUPPLY Qty: 100 Rx Instructions: As directed (DME) blood-glucose meter [OneTouch Verio Meter] Misc See Rx Instructions .ROUTE .MEDSUPPLY Qty: 1 0RF Rx Instructions: As directed (DME) OneTouch Verio test strips Strip See Rx Instructions .ROUTE .MEDSUPPLY Qty: 100 0RF Rx Instructions: As directed (DME) Aerochamber MV Spacer See Rx Instructions .ROUTE .MEDSUPPLY Qty: 1 0RF Rx Instructions: As directed ipratropium-albuterol 0.5 mg-3 mg(2.5 mg base)/3 mL solution for nebulization 3 ml inhalation Q6H PRN (Reason: for wheezing) Qty: 180 2RF fluticasone propion-salmeterol [Advair HFA] 115-21 mcg/actuation HFA aerosol inhaler 2 puff PO Q12H Qty: 12 11RF acetaminophen 500 mg tablet 500 mg PO Q6H PRN (Reason: fever or pain) Qty: 14 0RF simethicone [Gas Relief Extra Strength] 125 mg capsule 0 mg PO spironolactone 25 mg tablet 25 mg PO DAILY (DME) pen needle, diabetic 32 gauge x needle See Rx Instructions .ROUTE .MEDSUPPLY Qty: 50 Rx Instructions: As directed pioglitazone 45 mg tablet 45 mg PO DAILY albuterol sulfate [Ventolin HFA] 90 mcg/actuation HFA aerosol inhaler 2 puff PO Q4H PRN (Reason: for wheezing) 30 Days Qty: 18 6RF budesonide 32 mcg/actuation spray,non-aerosol 2 spray intranasal DAILY 30 Days Qty: 8.43 7RF Rx Instructions: administer into each nostril budesonide 0.5 mg/2 mL suspension for nebulization 0.5 mg inhalation BID 30 Days Qty: 120 11RF Lantus Solostar U-100 Insulin 100 unit/mL (3 mL) insulin pen 20 unit subcut DAILY lubiprostone [Amitiza] 8 mcg capsule 8 mcg PO BID 30 Days Qty: 60 3RF carvedilol 3.125 mg tablet 3.125 mg PO BID Qty: 60 5RF Rx Instructions: must administer with a meal/food BP medication clopidogrel 75 mg tablet 75 mg PO DAILY Qty: 90 3RF Rx Instructions: Blood thinner for heart Praluent Pen 75 mg/mL pen injector 75 mg subcut Q14D 90 Days Qty: 6 3RF Rx Instructions: No longer taking Repatha - reports side effects latanoprost 0.005 % drops 1 drp ophthalmic (eye) BEDTIME sertraline 50 mg tablet 50 mg PO DAILY ipratropium bromide 21 mcg (0.03 %) spray,non-aerosol intranasal sennosides-docusate sodium [Senna with Docusate Sodium] 8.6-50 mg tablet 2 tab-cap PO BEDTIME PRN (Reason: constipation) 60 Days Qty: 120 2RF Rx Instructions: Please take every other day at bedtime Interventions: ED Discharge Assessment Last Done: 06/26/24 13:59 Discharge Date/Time: 06/26/24 14:02 Print Language: Bulgarian
--- OUTSIDE RECORDS SUMMARY | 2024-06-26 12:51 | XMS_ITS | Encounter Summary ---
Author Organization [employer] Address [address] [place] [address] Care Team Providers Care Plan Rep Name Role Phone Liset Mitchell MD Primary Care Provider [phone] Encounter Details Date Type Department Care Team (Late st Contact Info) Description 01/30/2024 Orders Only [facility] [address], [place] [phone] Provider, MD Anne Marie Social History Tobacco [...] documented as of this encounter Care Teams Plan Rep Relationship Specialty Start Date End Date Liset Mitchell MD [address] [place] [id number] PCP - General Family Medicine 09/14/20 documented as of this encounter
--- OUTSIDE RECORDS SUMMARY | 2024-06-26 12:51 | XMS_ITS | Encounter Summary ---
Author Organization [employer] Address [address] [place] [address] Care Team Providers Care Audiovisual Tech Name Role Phone Liset Mitchell MD Primary Care Provider [phone] Encounter Details Date Type Department Care Team (Late st Contact Info) Description 02/05/2024 Orders Only [facility] [address] [place], [place] [phone] Provider, MD Anne Marie Social History Tobacco [...] documented as of this encounter Care Teams Audiovisual Tech Relationship Specialty Start Date End Date Liset Mitchell MD [address] [place] [address] PCP - General Family Medicine 09/14/20 documented as of this encounter
--- OUTSIDE RECORDS SUMMARY | 2024-06-26 12:52 | XMS_ITS | Data Portability ---
Author Organization [employer] Address [address] [place] [address] Care Team Providers Care Tire Classifier Name Role Phone HIM [facility] OTHER [facility] Primary Care Provider Assessment Encounter Date Assessment Date Assessment LastModified by Organization Details LastModified Time 01/30/2024 01/30/2024 I provided real -time medical direction via phone for this encounter and was available for additional phone-based assistance as needed. I have reviewed and agree with the Assessment and Plan as documented by the Network Associate. Patient given the opportunity to ask questions. Our service contacted for an assessment of: Non adherence with medication to treat hypertension As per above, patient was prescribed amlodipine by either petal shaper hand PCP and is not adherent to medication given the fact this previously caused a known side effect of peripheral edema. Patient states she will not take medications. Denies chest pain, shortness of breath, dyspnea on exertion, any focal neurologic deficits. Per bottom stop attacher on the scene, vital signs are stable [...] in the field was performed by my bottom stop attacher colleague, as noted above, I provided real-time [...] On the physical exam done by the bottom stop attacher, he does not see any sores inside the bilateral Nares. The patient has no shortness of breath. The patient has no respiratory distress. Lung sounds were clear. She had a basically normal exam. He says it is quite dry and diplomatic interpreter/translator the house. I wonder if there is [...] was discussed with the patient via the bottom stop attacher. An straight cutter machine was used. Pt instructed to have an [...] worsening serious symptoms, particularly fever, excessive bleeding [email or web address] Not available 02/08/2024 11:20:45 03/26/2024 03/26/2024 Ms. [...] Assessment and Plan as documented by the Network Associate. We discussed the diagnostic uncertainty of home [...] 03/26/2024 21:24:50 05/21/2024 05/21/2024 As noted, we wer e called to see this patient regarding concerns of high blood pressure. Evaluation in the field was performed by my bottom stop attacher colleague, as noted above, I provided real-time direction and supervision for this visit. The evaluation revealed 78y F with DM, HTN, dysuria presenting w elevated blood pressure today and after ER visit for severe HTN yesterday. Only on amlodipine 5mg for BP management based on pill bottles, last filled Feb 3 Qty 90 per medic. Based on pill [...] vision changes. [email or web address] Not available 05/21/2024 19:34:14 06/24/2024 06/24/2024 service called for dizziness found 78yow with hx COPD HTN T2DM HL GERD c/o new onset episodic dizziness following application of topical minoxidil lasts few hours, self resolves is not present wthout use of minoxidil denies other new sx VS af 160/76 72 14 98%RA no new focal neuro deficit EKG: sinus, poor R-wave progression, no e/o acute ischemia #Dizziness most likely due to BP effect of minoxidil pt to d/c minoxidil f/up with PCP [email or web address] Not available 06/24/2024 19:55:49 Plan of Treatment Reminders Order Date Submit Date Provider Last Modified By Organization Details Last Modified Time Details Appointments None recorded. Lab culture, urine 2024 025 BURAK [facility] (Centralized Electronic Ordering - All Locations), Patient Can Go To The Location Of Their Choice, [address] 10:06:03 urinalysis, dipstick 2024 025 BURAK [facility], [address] [place] [address], [id number] 19:53:02 BMP, serum or plasma [address], [address] [place] [address], [id number] 5 21:24:08 rapid SARS CoV 2 Ag, QL IA, respiratory specimen [address], [address] [place] [address], [id number] 5 21:24:08 rapid flu (A+B) [address], [address] [place] [address], [phone] 5 21:24:08 Referral None recorded. Procedures None recorded. Surgeries None recorded. Imaging electrocard iogram 2024 025 [facility], [address] [place] [address], [id number] 22:26:12 Medication Orders ondansetron HCl (PF) 4 mg/2 mL injection solution 2024 025 [id number] [address] [place], [address], 21:24:08 sodium chloride 0.9 % intravenous solution 2024 025 [id number] [place], [address], 21:24:08 ondansetron 4 mg disintegrat ing tablet 2024 025 [id number] [address] [place], [address], 5 21:24:10 mupirocin 2 % topical ointment 2023 024 [id number] [address] [place], [address], 4 10:59:37 Patient TargetsNo targets recorded. Patient InstructionsNo instructions recorded. Reason for Referral None Reported. Results Created Date Observation Date Name Description Value Unit Range Abnormal Flag Note LastModifiedBy Organization Detail LastModifiedTime 03/26/19 25 03/26/2024 rapid SARS CoV 2 Ag, QL IA, respi rator y speci men rapid SARS CoV 2 Ag, QL IA, respiratory specimen negati ve Not Available [facility] ed [address] [place] [address], [id number] 03/26/2024 20:33:01 03/26/19 25 03/26/2024 rapid flu (A+B) Flu negati ve Not Available [facility] ed [address] [place] [address], [id number] 03/26/2024 20:33:02 05/22/19 25 05/23/2024 URINE CULTU RE,CO MPREH ENSIV E urine culture,comp rehensive Final report Not Available [facility] ([facility]) [address] [place], [address], 05/23/2024 10:06:03 05/22/19 25 05/23/2024 URINE CULTU RE,CO MPREH ENSIV E result 1 COMMEN T Mixed uroge nital ty 10,00 0-25, 000 colon y formi ng units per mL Not Available [facility] ([facility]) [address] [place], [address], 05/23/2024 10:06:03 06/25/19 25 06/24/2024 elect darion amorgr am No observ ation record ed. [address], [address] 06/24/2024 22:15:08 Result Notes None recorded. Procedures Surgical History None recorded. Imaging Results Imaging Date Name Status LastModified by Organization Details LastModified Time 06/24/2024 electrocardiogram completed [address], [address] 06/24/2024 22:15:08 Procedure Notes None recorded. Medical Equipment None Reported. Allergies Allergen ID Allergen Name Allergen Category Reaction Reaction Severity Criticality Documentation Date Start Date Code Code System Note Provider Name and Address Organization Details Recorded Time 49627 metoprolo l Not available Not available Not available Not available 01/30/2024 6918 RxNorm Not Available [facility] 17:06:26 6413 ezetimibe medicatio n Not available Not available Not available 11/29/2023 03016 8 RxNorm Not Available [facility] 13:58:51 6414 fluticaso ne Not available Not available Not available Not available 11/29/2023 14076 RxNorm Not Available [facility] - [facility] 13:58:51 6415 hydrocodo ne Not available Not available Not available Not available 11/29/2023 5489 RxNorm Not Available [facility] - production 17:06:26 6416 umeclidin ium medicatio n chest pain Not available Not available 11/29/2023 00697 14 RxNorm Giorgio Pathak MD [address] [facility],[address], [place], [address] [place] [address] [employer] 16:24:27 6417 lisinopri l medicatio n Not available Not available Not available 11/29/2023 15518 RxNorm Not Available [facility] - production 13:58:51 [...] Januvia 100 mg tablet TOME CINDY TABLETA D active [...] mcg (2,000 unit) tablet TOME CINDY TABLETA D active Not [...] Ultra-Fine Micro Pen Needle 32 gauge x 03/01 USE INSTRUCTED active Not Available Not Available [...] mg-100 mg tablets in a dose pack (Moderate Renal Dose) active Not Available Not Available Not Available Dexcom G7 Events Assistant USE DIRECTED active Not Available Not Available No t Available Dexcom G7 Sensor device USE DIRECTED ..CHANGE EVERY 14 DAYS active Not Available Not Available No t Available Vitals Date Recorded Body temperature Body weight Oxygen saturation Oxygen saturation in Arterial blood by Pulse oximetry Respiratory rate Heart rate Systolic blood pressure Diastolic blood pressure Provider Name and Address Organization Details Last Updated DateTime 4 97.4 [degF] 81986.8 8 g 99 % 99 % 16 /min 86 /min 162 mm[Hg] 84 mm[Hg] Not Available [facility] [employer] 4 21:07:32 Date Recorded Oxygen saturation Oxygen saturation in Arterial blood by Pulse oximetry Heart rate Respiratory rate Body temperature Body weight Systolic blood pressure Diastolic blood pressure Provider Name and Address Organization Details Last Updated DateTime 4 99 % 99 % 78 /min 16 /min 98.2 [degF] 53984.8 8 g 146 mm[Hg] 80 mm[Hg] Not Available [facility] [employer] 4 10:51:35 Date Recorded Body height Heart rate Respiratory rate Oxygen saturation Oxygen saturation in Arterial blood by Pulse oximetry Body weight Body temperature Systolic blood pressure Diastolic blood pressure Provider Name and Address Organization Details Last Updated DateTime 5 144.78 cm 83 /min 18 /min 97 % 97 % 42489.0 64 g 98.4 [degF] 153 mm[Hg] 67 mm[Hg] Not Available [facility] [employer] 5 20:31:05 Date Recorded Respiratory rate Heart rate Oxygen saturation Oxygen saturation in Arterial blood by Pulse oximetry Systolic blood pressure Diastolic blood pressure Provider Name and Address Organization Details Last Updated DateTime 5 16 /min 83 /min 98 % 98 % 160 mm[Hg] 80 mm[Hg] Not Available [facility] 19:06:02 Date Recorded Respiratory rate Heart rate Body height Body weight Heart rate Oxygen saturation Oxygen saturation in Arterial blood by Pulse oximetry Body temperature Systolic blood pressure Diastolic blood pressure Systolic blood pressure Diastolic blood pressure Provider Name and Address Organization Details Last Updated DateTime 5 14 /min 72 /min 157.48 cm 92401.8 g 63 /min 98 % 98 % 98 [degF] 149 mm[Hg] 81 mm[Hg] 160 mm[Hg] 76 mm[Hg] Not Available [facility] 19:38:03 Social History None recorded. Functional Status None [...] 1785 Sosa Donnelly MD Main - [facility] [address] [place] [phone] 07/20/2021 17:44:53 11/22/2021 12:52:06 Dysuria 51745018 R30.9 2428 Holland Lewis MD Main - [facility] [address] [place] [address] 08/24/2021 17:49:18 11/17/2021 12:06:10 Adverse reaction to drug 64280934 T50.905A Reports some nausea and fatigue immediatel y after taking hydroxyzin e. Denies palpitatio ns (as in the expect note), chest pain, or chest pressure. Asymptomat ic now and feels back at baseline. Advised she go back to taking the hydroxyzin e once a day and communicat e all medication changes closely with primary care provider. 3329 Narendra Hassan MD Main - [facility] [address] [place] [phone] 10/08/2021 16:48:26 11/21/2021 12:43:51 Dysuria 63917846 R30.9 Will await culture prior to treatment given equivocal U/A 75929 Nataliia Grewal MD Main - [facility] [address] [place] [phone] 07/13/2022 17:00:14 07/14/2022 08:55:34 Inguinal pain 313619428 R10.2 67840 Holland Lewis MD Main - [facility] [address] [place] [phone] 08/24/2022 12:05:17 08/24/2022 22:29:37 Wheezing 77840478 R06.2 suspect viral-william kimberley bronchospa sm. Patient had some improvemen t with a short course of steroids prescribed last week but symptoms persist. No evidence of bacterial superinfec tion based on available data. Offered DuoNeb and a recurrent course of steroids, but patient declined. She will seek further care with her PCP. Red flags reviewed by bottom stop attacher and patient in understand ing. 00830 González Campo MD Main - [facility] [address] [place] [phone] 12/12/2022 18:24:35 12/13/2022 22:28:07 Facial swelling 743957902 R22.0 10197 Rich Lee MD Main - [facility] [address] [place] [address] 03/26/2023 19:07:48 03/27/2023 10:52:20 Pain in right foot 5491878380 27025 M79.671 This 77-year-ol d female with type 2 diabetes got her right foot caught in a screen today, and she thinks it cut her foot. The bottom stop attacher found no visual trauma to her right foot. I recommende d observatio n. She will follow-up with her PCP for any ongoing problems with her foot. The patient agreed with this plan. 10667 Nataliia Grewal MD Main [facility] [address] [place] [phone] 07/17/2023 13:48:23 07/17/2023 17:51:58 Pain of shoulder region 94789126 M25.519 14506 González Campo MD Main [facility] [address] [place] [phone] 08/10/2023 16:32:57 08/10/2023 21:11:42 Seasonal allergic rhinitis 033426552 J30.2 20986 Luci Corey MD Main - [facility] [address] [place], [place] [phone] 10/22/2023 19:42:26 10/22/2023 21:01:10 Nausea 350586775 R11.0 65086 Giorgio Pathak MD Main - [facility] [address] [place] [address] 11/29/2023 10:16:41 11/30/2023 00:42:40 Erythematous rash 914733122 R21 could be cellulitis vs fungal process 81383 Nataliia Grewal MD Main - [facility] [address] [place] [address] 0 01/30/2024 21:07:30 01/31/2024 08:54:42 Essential hypertension 30825846 I10 18507 PRAMOD SIMONS MD Main - [facility] [address] [place], [place] [address] 0 02/08/2024 10:51:33 02/08/2024 14:05:30 Lesion of nasal mucosa 743466299 J34.89 94031 GENE BO MD Main - [facility] [address] [place], [place] [address] 0 03/26/2024 20:30:34 03/26/2024 23:58:55 Nausea and vomiting 36688432 R11.2 25768 Luci Corey MD Main - [facility] [address] [place], [place] [phone] 05/21/2024 19:06:00 05/21/2024 21:57:41 Hypertensive disorder 59347858 I10 Abnormal urinalysis 1672 [address]19 R82.90 Dysuria 91380818 R30.0 89507 González Campo MD Main - [facility] [address] [place] [phone] 06/24/2024 19:37:52 06/24/2024 21:30:35 Dizziness 707163191 R42 Health Concerns Section Related Observation LastModified by Organization Detai ls LastModified Time None Recorded Concern Status LastModified by Organization Details LastModified Time None Recorded Advance Directives Directive None Recorded Payers Encounter Date Sequence Insurance Name Policy Number Policy Valdovinos Covered Member ID Valdovinos Member ID Guarantor Name 01/30/2024 1 [employer] - DOS ON OR AFTER 2022 - DUAL ELIGIBLE - HALF-WAY OPTIONS AND ONE CARE (MEDICARE REPLACEMENT/AD VANTAGE - HMO) Natali Ai Cortes [id number] Natali Cloud Cortes 02/08/2024 1 [facility] - DOS ON OR AFTER 2022 - DUAL ELIGIBLE - HALF-WAY OPTIONS AND ONE CARE (MEDICARE REPLACEMENT/AD VANTAGE - HMO) Natali Ai Cortes [id number] Natali Carter TomLoni Cortes 03/26/2024 1 [facility] - DOS ON OR AFTER 2022 - DUAL ELIGIBLE - HALF-WAY OPTIONS AND ONE CARE (MEDICARE REPLACEMENT/AD VANTAGE - HMO) Natali Ai Cortes [id number] Natali Carter TomLoni Cortes 05/21/2024 1 [facility] - DOS ON OR AFTER 2022 - DUAL ELIGIBLE - HALF-WAY OPTIONS AND ONE CARE (MEDICARE REPLACEMENT/AD VANTAGE - HMO) Natali Cortes [id number] Natali Carter TomLoni Cortes 06/24/2024 1 [facility] [employer] - DOS ON OR AFTER 2022 - DUAL ELIGIBLE - HALF-WAY OPTIONS AND ONE CARE (MEDICARE REPLACEMENT/AD VANTAGE - HMO) Natalisantiago Cortes [id number] Natali Miltoniciano Notes Date Note Type Note Provider Name and Address Organization Details Recorded Time 01/30/2024 text/html CRC Nurse Triage Notes (Vicki [...] ...................... ...................... ...................... ...................... ...................... ...................... ......... Network Associate Note From Salazar Jean-Baptiste: Pt wanted BP evaluated. Pt was diagnosed with elevated BP and was prescribed amplodipine and is unwilling to take medications as she feels it causes her lower extremity edema. Pt denies CP, SOB, Headache, dizziness, NVD, abdominal pain. Baseline vitals assessed, WNL, Bp slightly elevated. [facility] contacted and advised pt to contact cardiology for follow up and also PCP. Pt education on signs indicating the ER. ...................... ...................... ...................... ...................... ...................... ...................... ......... [facility] Consulted: Nataliia Grewal ...................... ...................... ...................... ...................... ...................... ...................... ......... Disposition: Fulfilled Nataliia Grewal MD [address] [facility],[address], [place], [address], [place] [employer] 01/30/2024 21:10:54 02/08/2024 text/html [facility] Nurse Triage Notes (Vicki Jane - RN): Reason For Request: Pt reporting for about 3 days reporting a blockage in her nose and notes it feels very dry>denies fever/chills>denies headache, denies dizziness. Chief Complaints: Wound care PMH: COPD/Asthma, Hypertension, Diabetes Mellitus Type 2, Hyperlipidemia Comments: Micronesian speaking member calling to request visit for painful sores inside both nares for the past 3 days. Reports intermittent bleeding. Has been applying vaseline. Does not wear 02. ...................... ...................... ...................... ...................... ...................... ...................... ......... Network Associate Note From Salazar Jean-Baptiste: Pt co sores [...] ...................... ...................... ...................... ...................... ...................... ...................... ......... [facility] Consulted: Pramod Simons ...................... ...................... ...................... ...................... ...................... ...................... ......... Disposition: Fulfilled PRAMOD SIMONS MD [address] [place] [address],[address], [place], [address], [employer] 02/08/2024 11:21:07 03/26/2024 text/html CRC Nurse Triage Notes (Linda Stanton - RN): Reason For Request: N/V, abdominal pain Chief Complaints: Vomiting, Abdominal pain PMH: COPD/Asthma, Hypertension, Diabetes Mellitus Type 2, Hyperlipidemia, Allergic Rhinitis PMH Reviewed at 03/26/2024 18:41 Allergies Reviewed at 03/26/2024 18:41 Comments: Member is c/o Stomachache and [...] allergies. Educated about response time. Dashawn RN Network Associate Organization Information for Ros[employer]ila Legal Name: [employer].? Address: [address] [place] [address], Machine Room Operator: Miguel Brown MD IA No.: [id number] Network Associate POC Test Results from Gila Rosario - [facility] iSTAT Chem8+ (20:26:15) Na: 139 mEq/L K: [...] ...................... ...................... ...................... ...................... ...................... ...................... ......... Network Associate Note From Gila Rosario: Sent to a [...] blood draw performed; Chem8+ results: uploaded to [facility]. [facility] consulted and orders rapid covid/flu test; Zofran 4mg IV and Normal Saline 500ml IV. Covid/flu test: neg; Zofran 4mg IV and Normal Saline 500ml IV administered. Pt reports nausea resolved. [facility] sends script to pt's pharmacy. IV removed. Red flags discussed. Pt has no further questions. ...................... ...................... ...................... ...................... ...................... ...................... ......... [facility] Consulted: Gene Bo ...................... ...................... ...................... ...................... ...................... ...................... ......... Disposition: Fulfilled GENE BO MD [address] [facility],[address], [place], [address], [facility] 03/26/2024 22:16:21 05/21/2024 text/html HPI: Ezetimibe? D [...] 05/21/2024:47 Allergies Reviewed at 05/21/2024:47 Comments: [facility]PI: Network Associate Organization Information for Rubio Swanson Legal Name: [employer] Address: [address] [place] [address], Machine Room Operator: Miguel Brown MD CLIA No.: [id number] Network Associate POC Test Results from Rubio Swanson Urine [...] ...................... ...................... ...................... ...................... ...................... ...................... ......... [facility] Nurse Triage Notes (Vicki Jane): Chief Complaints: High Blood Pressure, Urinary Symptoms PMH: COPD/Asthma, Hypertension, Diabetes Mellitus Type 2, Hyperlipidemia, Allergic Rhinitis, Gastroesophageal Reflux Disease (GERD), Coronary Artery Disease, Asthma PMH Reviewed at 05/21/2024:47 Allergies Reviewed at 05/21/2024 14:47 Comments: [facility]: seen yesterday at ED for high blood pressure. neg lab and ekg work up. having dysuria, as well. 200/100s yesterday. 180/70 today. no kumar, vision changes, chest pain. called PCP for appt but not appt yet.HTN meds: amlodipine - 5mg; last filled Feb 3Also on qhs insulin, clopidogrel, sertraline, aspirin ...................... ...................... ...................... ...................... ...................... ...................... ......... Network Associate Note From Rubio Swanson: dispatched for a 78yo female with hypertension and burning urination. Pt reports she was seen yesterday at [facility] for hypertension. Pt reports BP was 200+/100+. Pt was discharged with no finding. Pt reports she called today because she needs med changes to manage bp and recent burning urination. Pt denies h/a, dizziness, cp, sob or nausea at this time. [facility] consulted. Urine dip and lab send out order. Pt informed she can increase her amlodipine from 5mg to 10mg until she can get into her petal shaper hand. [facility] informs pt to make sure she follows up with PCP or petal shaper hand. Pt informed of red flags. Pt states she understands. Pt found walking and speaking in full clear sentences with no signs of distress. AO and GCS-15. PERRL. Skin warm/dry. Airway open and lung sounds clear. ABD soft nontender. BGL:291. Rest of exam unremarkable. [facility] Lab Orders: culture, urine: Performed urinalysis, dipstick: Performed ...................... ...................... ...................... ...................... ...................... ...................... ......... [facility] Consulted: Luci Corey ...................... ...................... ...................... ...................... ...................... ...................... ......... Disposition: Yaron Luci Corey MD [address] [facility],[address], [place], [address], [employer] 05/21/2024 20:47:38 06/24/2024 text/html [facility] Nurse Triage Notes (Jaye Smart): Reason For Request: pt has concerns about bp and heart rate Denies: History of Heart Attack, in the setting of active chest pain Active Chest pain, radiates to neck jaw and or arm Diaphoretic/Sweating Describes as ? c rushing? Sudden onset of nausea/Vomiting and shortness of breath. Shortness of Breath Unable to speak in full sentences without distress Chief Complaints: Dizziness, Heart Rate Problems PMH: COPD/Asthma, Hypertension, Diabetes Mellitus Type 2, Hyperlipidemia, Allergic Rhinitis, Gastroesophageal Reflux Disease (GERD), Coronary Artery Disease, Asthma PMH Reviewed at 06/24/2024 Allergies Reviewed at 06/24/2024:55 Comments: HR 78 y.o female complains of Dizziness, Heart Rate Problems Referral taken via [employer]. Patient unable to confirm allergies. Patient calling as her heart rate has been in the 50's since this morning/, and during her PT session. Patient reports feeling dizzy all day. Current BP 158/79 HR 55, she is unsure her baseline heart rate, but reports she is on blood pressure and cholesterol medication. She denies chest pain, no shortness of breath, no headaches or blurry vision, no diaphoresis, no left sided neck, jaw, shoulder or arm pain. Last blood sugar was 88. Patient would like to be evaluated. RED flags discussed, however, patient said she is not going to the hospital. I provided information on the mobile health provider response time and advised the patient and/or caregiver to monitor reported signs and symptoms. I discussed the warning signs of when to seek emergency care. ...................... ...................... ...................... ...................... ...................... ...................... ......... Network Associate Note From Richard Jamison: Patient alert and oriented complains of intermittent dizziness after using minoxidil. Patient reports she was not dizzy until she started using minoxidil three days ago. Patient reports dizziness came on after product was on her head for a few hours. Patient denies nausea, vomiting vertigo, ear, pain, or pressure, headache, cough, or any other pain or complaint. Patient reports medication? s were changed a few months ago without any adverse reactions so far. Patient denies chest pain, difficulty, breathing, weakness, syncope mobility, problems, or any other. Patient reports normal appetite, intake elimination, and denies urinary symptoms. Patient pink warm dry secondary exam unremarkable. Lung sounds clear negative increased work of breathing positive full sentences. Abdomen soft, nontender extremities, unremarkable good skin TURG[place]. ECG to [facility] advises patient to stop using minoxidil consider watchful waiting and contact PCP or Inst[facility] for further treatment if symptoms return. Red flags, patient education discussed. ...................... ...................... ...................... ...................... ...................... ...................... ......... [facility] Consulted: González Campo ...................... ...................... ...................... ...................... ...................... ...................... ......... Disposition: Fulfilled González Campo MD [address] [facility],[address], [place], [address], JEANIE - TRATYLER CRUZ 06/24/2024 21:19:26 OBGyn Episode No OBEpisode recorded.
--- OUTSIDE RECORDS SUMMARY | 2024-06-26 12:52 | XMS_ITS | Encounter Summary ---
Author Organization [employer] Address [address] [facility] 7t [place] [address] Care Team Providers Care Lard Bleacher Name Role Phone Liset Mitchell MD Primary Care Provider [phone] Reason for Visit * Reason Onset Date Comments Nurse Triage 05/21/2024 Encounter Details Date Type Department Care Team ([facility] st Contact Info) Description 05/21/2024 Telephone C [facility] [address] [place], [place] [phone] Liset Mitchell MD [address] [place], [place] [phone] Nurse Triage Social History Tobacco Use Types [...] Linares LPN - 05/23/2024 12:17 PM EDT [facility] Nurse Jaye advised that company providing ORE MINER services is responsible for ORE MINER replacement andhours. Unsure who provides those services at this time.. [facility] Nurse to follow as indicated. [...] requesting a call back in regards to ORE MINER hours and medical assistance. She reports her ORE MINER is sick, and needs someone in the interim to help with her daily needs She would also like more ORE MINER hours. Please reach out to patient at your earliest convenience. I have two numbers for patients: [phone] * Telephone Encounter - Esperanza Linares LPN - 05/21/2024 2:44 PM EDT Please obtain [facility] ED note from 05/20/24 * Telephone Encounter - Esperanza Linares LPN - 05/21/2024 2:17 PM EDT Triage call to listed number no answer at time of call. Message left to return call to [phone]. Second call placed with ASHANTI Hurst [phone]. Patient confirms she was seen in ED [...] Triage Question: * Patient wants doctor (or MAGICIAN/ILLUSIONIST/PA) to measure BP * All higher-acuity triage [...] ED visit on : Date: 05/20/24 Hospital: [facility] Seen for: high blood pressure Symptomatic: [...] documented as of this encounter Care Teams Lard Bleacher Relationship Specialty Start Date End Date Liset Mitchell MD [address] [place] [phone] PCP - General Family Medicine 09/14/20 documented as of this encounter
--- OUTSIDE RECORDS SUMMARY | 2024-06-26 12:52 | XMS_ITS | Encounter Summary ---
Author Organization [employer] Address [address] [facility] [address] [place] [address] Care Team Providers Care Marketing Strategist Name Role Phone Liset Mitchell MD Primary Care Provider [phone] Reason for Visit * Reason Onset Date Comments Prior Authorization 05/24/2022 Encounter Details Date Type Department Care Team ([facility] st Contact Info) Description 05/24/2022 Telephone C [facility] [address] [place], [place] [phone] Liset Mitchell MD 505 [place], [place] [phone] Prior Authorization Social History Tobacco Use Types [...] as of this encounter Care Teams Marketing Strategist Relationship Specialty Start Date End Date Liset Mitchell MD [address] [place] [address] PCP - General Family Medicine 09/14/20 documented as of this encounter
--- OUTSIDE RECORDS SUMMARY | 2024-06-26 12:52 | XMS_ITS | Clinical Summary ---
Author Organization [employer] Address [address] [facility] 7t [place] [address] Care Team Providers Care Band Builder Name Role Phone Liset Mitchell MD Primary Care Provider Allergies Active Allergy Reactions Criticality Noted Date [...] DROP INTO BOTH EYES FOUR TIMES DAILY Active latanoprost (Xalatan) 0.005 % ophthalmic solution Administer 1 drop into both eyes at bedtime. Active ipratropium-alb uterol (Duo-Neb) 0.5-2.5 mg/3 mL nebulizer solution INHALE 1 VIAL VIA NEB EVERY 6 HOURS NEEDED FOR WHEEZING Active FreeStyle lancets USE 4 TIMES A DAY BEFORE MEALS AND NIGHTLY 09/26/2 022 Active Lantus SoloStar 100 UNIT/ML pen 26 Units. 023 Active hydrOXYzine pamoate (Vistaril) 25 MG capsule Take 25 mg by mouth 3 times daily. 022 Active albuterol (Ventolin HFA) 108 (90 Base) MCG/ACT inhaler 018 Active aspirin 81 MG chewable tablet Chew 1 tablet at bed time. Active cyanocobalamin (Vitamin B-12) 1000 MCG tablet Take 1,000 mcg by mouth in the morning. Active fluticasone (Flonase) 50 MCG/ACT nasal sprayIndication s:Rhinosinusiti s Administer 2 sprays into each nostril 2 times daily. 16 g 5 023 Active lidocaine (Lidoderm) 5 % patchIndication s:Lumbar back pain Apply 1 patch topically in the morning. Remove & discard patch within 12 hours or as directed by MD. 90 patch 1 023 Active magnesium 30 MG tablet Take 30 mg by mouth 2 times daily. Active melatonin 10 MG tabletIndicatio ns:Insomnia, unspecified type Take 1 tablet (10 mg) by mouth if needed at bedtime (insomnia). 90 tablet 1 023 Active polyethylene glycol, PEG, 3350 (MiraLax) 17 GM/SCOOP powderIndicatio ns:Constipation , unspecified constipation type Take 17 g by mouth in the morning. 527 g 2 023 Active nitroglycerin (Nitrostat) 0.[address] 1 TABLET UNDER TONGUE EVERY 5 MIN NEEDED FOR CHEST PAIN, MAX OF 3 DOSES/15 MIN CALL 911/SEEK MEDICAL ATTENTION IF PAIN PERSISTS 023 Active montelukast (Singulair) 10 MG tablet Take 10 mg by mouth at bedtime. 023 Active Advair HFA 115-21 MCG/ACT inhaler INHALE 2 PUFFS BY MOUTH EVERY 12 HOURS 023 Active lidocaine (Xylocaine) 2 % solution 023 Active omeprazole (PriLOSEC) [address] capsule Take 1 capsule (20 mg) by mouth before breakfast. Do not crush or chew. 90 capsule 1 023 Active ketotifen (Zaditor) 0.025 % ophthalmic solution ADMINISTER 1 DROP INTO BOTH EYES 2 TIMES DAILY. 10 mL 023 Active linaCLOtide (Linzess) 145 MCG capsule Take 1 capsule (145 mcg) by mouth before breakfast. Do not crush or chew. 30 capsule 11 023 Active Continuous Blood Gluc Fashion Styling Intern (FreeStyle Aristides reader) deviceIndicatio ns:Type 2 diabetes mellitus with other circulatory complication, without long-term current use of insulin ([facility]) Inject under the skin before breakfast, before lunch, before evening meal, and at bedtime. 1 each 023 Active Myrbetriq 25 MG 24 hr tabletIndicatio ns:Unspecified urinary incontinence TAKE 1 TABLET BY MOUTH EVERY DAY IN THE MORNING 30 tablet 2 023 Active simethicone (Gas Relief Extra Strength) 125 MG chewable tablet TAKE 1 TABLET BY MOUTH NEEDED AFTER MEALS AND AT BEDTIME FOR GAS 360 tablet 1 024 Active sucralfate (Carafate) 1 GM/10ML suspensionIndic ations:Gastroes ophageal reflux disease, unspecified whether esophagitis present Take 10 mL (1 g) by mouth every 8 (eight) hours. 1000 mL 3 024 Active azelastine (Optivar) 0.05 % ophthalmic solution 024 Active budesonide (Pulmicort) 0.5 MG/2ML nebulizer solution REALIZAR 1 TERAPIA RESPIRATORIA DOS VECEAS AL FREDDIE Active loratadine (Claritin) 10 MG tabletIndicatio ns:Seasonal Allergic Rhinitis Take by mouth. Activ e nystatin (Mycostatin) 001932 UNIT/ML suspension TAKE 1ML BY MOUTH 4 TIMES DAILY FOR 7 DAYS. (THRUSH IN MOUTH). SWISH AND SPIT (DO NOT SWALLOW) 28 mL 024 Active hydrOXYzine pamoate (Vistaril) 50 MG capsule Take 1 capsule (50 mg) by mouth 1 (one) time for 1 dose. 5 capsule 024 Active hyoscyamine (Levsin/SL) 0.125 MG SL tablet Take 1 tablet (0.125 mg) by mouth every 6 (six) hours if needed for cramping for up to 10 days. 30 tablet 024 Active baclofen (Lioresal) 10 MG tabletIndicatio ns:Musculoskele symone pain Take one tablet TID PRN 30 tablet Active Humidifier miscIndications :Congestion of paranasal sinus To use daily 1 each Active pioglitazone (Actos) 45 MG tablet Take 1 tablet by mouth Once per day. Active Senexon-S 8.6-50 MG tablet TAKE 2 TABLETS BY MOUTH AT BEDTIME NEEDED CONSTIPATION, PLEASE TAKE EVERY OTHER DAY AT BEDTIME Active ipratropium (Atrovent) 0.03 % nasal spray ADMINISTER 1-2 SPRAYS DAILY NEEDED Active famotidine (Pepcid) 20 MG tablet 20 MG ORALLY 2 TIMES A DAY FOR 90 DAYS Active clopidogrel (Plavix) 75 MG tablet Take 75 mg by mouth Once per day. Active cetirizine (ZyrTEC) 10 MG tablet Take 10 mg by mouth in the morning. Active fluconazole (Diflucan) 150 MG tablet Take 1 tab today and next after 5 days 2 tablet Active alirocumab (Praluent) 75 MG/ML injection Inject 75 mg under the skin. Active carvedilol (Coreg) 3.125 MG tablet Take 3.125 mg by mouth with breakfast and with evening meal. Active aluminum-magnes ium hydroxide-simet hicone (Maalox MAX) 400-400-40 MG/5ML suspension Take 20 mL by mouth if needed for indigestion or heartburn. 355 mL Active BD Pen Needle Geetha U/F 32G X 4 MM misc Inject 1 each under the skin in the morning. 90 each 2025 Active Continuous Glucose Sensor (FreeStyle Aristides 2 Sensor) miscIndications :Type 2 diabetes mellitus with other circulatory complication, without long-term current use of insulin ([facility]) 1 Units before breakfast, before lunch, before evening meal, and at bedtime. 2 each Active psyllium (Metamucil Smooth Texture) 58.6 % powderIndicatio ns:Constipation , unspecified constipation type Take 5.12 g (3 g of fiber) by mouth Once per day. Mix in 8 oz of water. 283 g 11 025 2025 Active rosuvastatin (Crestor) 40 MG tablet Take 1 tablet (40 mg) by mouth in the morning. 90 tablet 1 Active sertraline (Zoloft) 50 MG tabletIndicatio ns:Anxiety Take 1 tablet (50 mg) by mouth Once per day. 90 tablet 1 Active spironolactone (Aldactone) 25 MG tabletIndicatio ns:Hypertension , unspecified type Take 1 tablet (25 mg) by mouth in the morning. 90 tablet 1 025 Active Diclofenac Sodium 1 % gelIndications: Musculoskeletal pain APPLY 2 GRAMS TOPICALLY EVERY 6 HOURS 200 g 3 Active Continuous Blood Gluc Sensor (FreeStyle Aristides 2 Sensor) miscIndications :Type 2 diabetes mellitus with other circulatory complication, without long-term current use of insulin ([facility]) 1 Units before breakfast, before lunch, before evening meal, and at bedtime. 2 each 023 2024 Discontinued(R eorder (will not trigger notification to Pharmacy)) aluminum-magnes ium hydroxide-simet hicone (Maalox MAX) 400-400-40 MG/5ML suspension Take 20 mL by mouth if needed for indigestion or heartburn. 355 mL 11 024 2024 Discontinued(R eorder (will not trigger notification to Pharmacy)) Diclofenac Sodium 1 % gelIndications: Musculoskeletal pain Apply 2 g topically every 6 (six) hours. 200 g 3 024 2024 Discontinued(R eorder (will not trigger notification to Pharmacy)) sertraline (Zoloft) 50 MG tabletIndicatio ns:Anxiety TAKE 1 TABLET BY MOUTH EVERY DAY 90 tablet 1 024 2024 Discontinued(R eorder (will not trigger notification to Pharmacy)) spironolactone (Aldactone) 25 MG tabletIndicatio ns:Hypertension , unspecified type TAKE 1 TABLET BY MOUTH EVERY DAY IN THE MORNING 90 tablet 1 024 2024 Discontinued(R eorder (will not trigger notification to Pharmacy)) rosuvastatin (Crestor) 40 MG tablet TAKE 1 TABLET BY MOUTH EVERY MORNING 90 tablet 1 024 2024 Discontinued(R eorder (will not trigger notification to Pharmacy)) psyllium (Metamucil Smooth Texture) 58.6 % powderIndicatio ns:Constipation , unspecified constipation type Take 5.12 g (3 g of fiber) by mouth Once per day. Mix in 8 oz of water. 283 g 11 024 2024 Discontinued(R eorder (will not trigger notification to Pharmacy)) BD Pen Needle Geetha U/F 32G X 4 MM misc 1 each by Other route in the morning. 024 2024 Discontinued(R eorder (will not trigger notification to Pharmacy)) Repatha SureClick 140 MG/ML injection INJECT 140 MG SUBCUTANEOUSLY EVERY 2 WEEKS 2024 Discontinued(D iscontinued by another clinician) amLODIPine (Norvasc) 5 MG tablet Take 1 tablet (5 mg) by mouth Once per day. 90 tablet 1 025 2024 Discontinued(D iscontinued by another clinician) metroNIDAZOLE (Flagyl) 500 MG tablet Take 1 tablet (500 mg) by mouth 2 times daily for 7 days. 14 tablet 025 2024 Active Problems Problem Noted Date Diagnosed Date [...] negative side effects begin. F/u with Case Investigator for review of heart medication. Labs: Rapid [...] bisoprolol, told her to talk with her patternmaker hand as she has hx of CAD. Assessment [...] Encounters Date Type Department Care Team Description 06/26/2024 Telephone [facility] MED & PEDS [address] [place] [address] Liset Mitchell MD 06/26/2024 Telephone [facility] MEDICINE [address] [place], [place] [phone] Liset Mitchell MD Nurse Triage 06/25/2024 Telephone [facility] MEDICINE [address] [place] [address] Liset Mitchell MD med reconciliation 06/24/2024 Refill [facility] MED[facility]INE [address] [place] [address] Liset Mitchell MD Musculoskeletal pain 06/23/2024 Refill [facility] & PEDS [address] [place] [address] Liset Mitchell MD Type 2 diabetes mellitus with other circulatory complication, without long-term current use of insulin ([facility]); Constipation, unspecified constipation type; Anxiety; Hypertension, unspecified type 06/23/2024 Telephone [facility] MEDICINE [address] [place] [address] Liset Mitchell MD Med Refill 06/23/2024 Refill [facility] PEDS [address] [place] [address] Liset Mitchell MD 06/19/2024 Telephone [facility] MEDICINE [address] [place] [address] Liset Mitchell MD Medication Question 05/30/2024 1:00 PM EDT Office Visit [facility] [address] [place] [address] Stephani Liu MD Acute vaginitis (Primary Dx); Type 2 diabetes mellitus with microalbuminuria, with long-term current use of insulin ([facility]) 05/30/2024 Orders Only [address] [address] Eli Rodriguez NP 05/30/2024 Travel 05/29/2024 Telephone [facility] MEDICINE [address] [place] [address] Liset Mitchell MD Nurse Triage 05/21/2024 Telephone [facility] PEDS [address] [place] [address] Liset Mitchell MD Nurse Triage from Last [...] 04/06/2017, Additional history exists Diabetes: Hemoglobin A1C 09/02/2024 025, 05/30/2024, 12/24/2023, Additional history exists Lipid Panel 10/09/2024 10/10/2023, [...] microalbuminuria, with long-term current use of insulin ([facility]) BACTERIAL VAGINOSIS PANEL Routine 05/30/2024 1:30 PM EDT Acute vaginitis POCT GLUCOSE Routine 05/30/2024 1:29 PM EDT Type 2 diabetes mellitus with microalbuminuria, with long-term current use of insulin ([facility]) LIPID PANEL, STANDARD Routine 10/10/2023 2:01 PM [...] TEST ENTER/EDIT OR DERABLES Final Result * Bacterial Vaginosis Panel (05/30/2024 1:30 PM EDT) TRICHOMONAS VAGINALIS DETECTION BY PCR NOT DETECTED Not Detect [facility] BACTERIAL VAGINOSIS DETECTION BY PCR NEGATIVE Negative [facility] Comment:The BV organism targ ets of the Xpert Xpress MVP test can becommensal in women; Xpert Xpress MVP positive results forbacterial vaginosis should be considered in conjunction withother clinical and patient information to determine thedisease status. Organisms that are not detected by the XpertXpress MVP test have also been reported to be associatedwith BV and aerobic vaginitis.The Xpert Xpress MVP test performance has not been evaluatedin patients under the age of 14. MAE GROUP DETECTION BY PCR NOT DETECTED Not Detect [facility] Mae glab krusei PCR NOT DETECTED Not Detect [facility] Swab Vaginal structure / Unknown 05/30/2024 1:30 PM EDT 05/30/2024 5:34 PM EDT Stephani Liu MD LAB MICROBIOLOGY - GENERAL ORDER IBAN Final Result [facility] [address] [place] [address] [phone] * (ABNORMAL) POCT HGB A1C (05/30/2024 1:30 PM EDT) Hemoglobin A1C 7.1(A) 4.0 - 6.0 % QC Media Lot # [id number] Lot# Expiration Date Blood 05/30/2024 1:30 PM EDT Stephani Liu MD POINT OF CARE TEST ENTER/EDIT OR DERABLES Final Result * POCT Glucose (05/30/2024 1:29 PM EDT) Pathologist [facility] Glucose Blood, POC 176 60 - 200 mg/dL QC Media Lot # [id number] Lot# Expiration Date Blood Capillary blood specimen / Unknown 05/30/2024 1:29 PM EDT Stephani Liu MD POINT OF CARE TEST ENTER/EDIT OR DERABLES Final Result * (ABNORMAL) Lipid Panel, Standard (10/10/2023 2:01 PM EDT) Triglycerides 158(H) <150 mg/dL [facility] Comment:Desirable Triglyceri de: less than 150 mg/dLBorderline High Triglyceride 150-199 mg/dLHigh Triglyceride: 200-499 mg/dLVery High Triglyceride: greater than or equal to 5OO mg/dL Cholesterol 233(H) <200 mg/dL [facility] Comment:Desirable Cholestero l: less than 200 mg/dLBorderline High Cholesterol: 200-239 mg/dLHigh Cholesterol: greater than 239 mg/dL LDL Cholesterol Calculated 148(H) <100 mg/dL [facility] Comment:Desirable LDL: less than 100 mg/dLNear Optimal/Above Optimal LDL: 110- 129 mg/dLBorderline High LDL: 130-159 mg/dLHigh LDL: 160-189 mg/dLVery High LDL: greater than or equal to 190 mg/dL HDL Cholesterol 54 >40 mg/dL [facility] Comment:Desirable HDL: great er than 40 mg/dL Note: This HDL assay may give artificially low results in patients with liver disease. 10/10/2023 2:01 PM EDT 10/10/2023 2:01 PM EDT us Generic External Data Provider LAB BLOOD ORDERAB LES Final Result [facility] [address] [place] [address] [phone] from Last 3 Months or Most Recently Relevant to Health Maintenance Insurance [facility] RETIREMENT OPTIONS (O D-SNP) SAMMY [place]CASTER [id number] Care Teams Band Builder Relationship Specialty Start Date End Date Liset Mitchell MD [address] [place] [phone] PCP - General Family Medicine 09/14/20
--- OUTSIDE RECORDS SUMMARY | 2024-06-26 12:52 | XMS_ITS | Encounter Summary ---
Author Organization [employer] Address [address] [facility] [address]t [place] [address] Care Team Providers Care Industrial Cook Name Role Phone Liset Mitchell MD Primary Care Provider [phone] Reason for Visit * Reason Onset Date Comments Results 10/11/2023 Appointment Request 10/11/2023 Encounter Details Date Type Department Care Team ([facility] st Contact Info) Description 10/11/2023 Telephone [facility] MEDICINE [address] [place] [address] Liset Mitchell MD [address] [place], [place] [phone] Results; Appointment Request Social History Tobacco Use [...] a appt in regards to getting a BUTTON FACING MACHINE OPERATOR states is in need documented in this encounter Plan of Treatment Not on file documented as of this encounter Visit Diagnoses Not on filedocumented in this encounter Additional Health Concerns Assessment Noted Time PHQ-9 Depression Total Score: 0 04/13/19 23 10:04 AM EST documented as of this encounter Care Teams Industrial Cook Relationship Specialty Start Date End Date Liset Mitchell MD [address] [place] [address] PCP - General Family Medicine 09/14/20 documented as of this encounter
--- OUTSIDE RECORDS SUMMARY | 2024-06-26 12:52 | XMS_ITS | Encounter Summary ---
Author Organization [employer] Address [address] [facility] [address]t [place] [address] Care Team Providers Care Financial Coach Name Role Phone Liset Mitchell MD Primary Care Provider [phone] Reason for Visit * Reason Onset Date Comments Triage 07/07/2022 Encounter Details Date Type Department Care Team ([facility] st Contact Info) Description 07/07/2022 Telephone C [facility] [address] [place], [place] [phone] Liset Mitchell MD [address] [place], [place] [phone] Triage Social History Tobacco Use Types Packs/Day [...] pt has upcomign appt on 08/03/22 with telephone operators supervisor. Pt confirmed that new discharge meds are [...] No answer LVM to return call to [facility] triage line. Protocol Used: No Contact or [...] The caller accepted this outcome Patient speaks south sudanese. documented in this encounter Plan of Treatment Not on file documented as of this encounter Visit Diagnoses Not on filedocumented in this encounter Additional Health Concerns Assessment Noted Time PHQ-9 Depression Total Score: 0 04/13/19 23 10:04 AM EST documented as of this encounter Care Teams Financial Coach Relationship Specialty Start Date End Date Liset Mitchell MD [address] [place] [id number] PCP - General Family Medicine 09/14/20 documented as of this encounter
--- OUTSIDE RECORDS SUMMARY | 2024-06-26 12:52 | XMS_ITS | Encounter Summary ---
Author Organization [employer] Address [address] [facility] [address]t [place] [address] Care Team Providers Care Tube Room Cashier Name Role Phone Liset Mitchell MD Primary Care Provider [phone] Reason for Visit * Reason Comments Med Change Request Encounter Details Date Type Department Care Team ([facility] st Contact Info) Description 09/08/2023 Refill [facility] CHC MED & PEDS [address] [place], [place] [phone] Rubio Blum MD [address] [place] [address] Social History Tobacco Use Types Packs/Day Years [...] t he electric, gas, oil or water [employer] threatened to shut off services in your [...] documented as of this encounter Care Teams Tube Room Cashier Relationship Specialty Start Date End Date Liset Mitchell MD [address] [place] [phone] PCP - General Family Medicine 09/14/20 documented as of this encounter
--- OUTSIDE RECORDS SUMMARY | 2024-06-26 12:52 | XMS_ITS | Encounter Summary ---
Author Organization [employer] Address [address] [address] [place] [address] Care Team Providers Care Dupligraph Operator Name Role Phone Liset Mitchell MD Primary Care Provider [phone] Reason for Visit * Reason Onset Date Comments med reconciliation 06/25/2024 Encounter Details Date Type Department Care Team ([facility] st Contact Info) Description 06/25/2024 Telephone [facility] MEDICINE [address] [place], [place] [phone] Liset Mitchell MD [address] [place], [place] [phone] med reconciliation Social History Tobacco Use Types Packs/Day Years [...] encounter Miscellaneous Notes * Telephone Encounter - Roxane Camara RN - 06/26/2024 9:19 AM EDT TC to [facility] to complete med rec with med [facility] pharmacist. No answer. Voicemail left instructing to have pharmacy call office back due to length of message * Telephone Encounter - Ion Curran - 06/25/2024 11:09 AM EDT TC from [facility] reporting based of pt's med list , they are taking about 40 medications . Wouldlike a call back to further discuss what pt should be taking . documented in this encounter Plan of Treatment Not on file documented as of this encounter Visit Diagnoses Not on filedocumented in this encounter Additional Health Concerns Assessment Noted Time PHQ-9 Depression Total Score: 4 02/28/19 25 9:06 AM EST documented as of this encounter Care Teams Dupligraph Operator Relationship Specialty Start Date End Date Liset Mitchell MD [address] [place] [address] PCP - General Family Medicine 7/20/21 documented as of this encounter
--- OUTSIDE RECORDS SUMMARY | 2024-06-26 12:52 | XMS_ITS | Encounter Summary ---
Author Organization [employer] Address [address] [facility] 7t [place] [address] Care Team Providers Care Radar Air Traffic Controller Name Role Phone Liset Mitchell MD Primary Care Provider [phone] Reason for Visit * Reason Comments Med Change Request Encounter Details Date Type Department Care Team ([facility] st Contact Info) Description 10/26/2023 Refill [facility] CHC MED & PEDS [address] [place], [place] [phone] Liset Mitchell MD [address] [place], [place] [phone] Social History Tobacco Use Types Packs/Day Years [...] documented as of this encounter Care Teams Radar Air Traffic Controller Relationship Specialty Start Date End Date Liset Mitchell MD [address] [place] [address] PCP - General Family Medicine 09/14/20 documented as of this encounter
--- OUTSIDE RECORDS SUMMARY | 2024-06-26 12:52 | XMS_ITS | Data Portability ---
Author Organization [place] - [facility], Allergy Address [address] [address] Care Team Providers Care Blood Typer Name Role Phone JACKSON PEDRO Primary Care [...] Organization Details Recorded Time Nasal congestio n 13610521 Active 2016 Nasal congestio n; Note: Date Diagnosed : 08/11/2016 11:55 AM (R09.81) Not Available [facility] 4 03:07:47 Chronic rhinitis 20792503 Active 2018 Chronic rhinitis; Note: Date Diagnosed : 08/21/2018 5:21 PM (J31.0) Not Available [facility] 4 03:07:47 Tinnitus of right ear 27475999482 08 Active 2016 Tinnitus, right ear; Note: Date Diagnosed : 08/11/2016 12:22 PM (H93.11) Not Available [facility] 4 03:07:46 Asthma 425501481 Active 2016 Other asthma; Note: Date Diagnosed : 03/01/2016 1:00 PM (J45.998) Not Available [facility] 4 03:07:46 Otalgia of right ear 1229135690 Active 2016 Otalgia, right ear; Note: Date Diagnosed : 08/11/2016 12:22 PM (H92.01) Not Available [facility] 4 03:07:46 Disturban ce of salivary secretion 63729709 Active 2018 Xerostomi a; Note: Date Diagnosed : 07/24/2018 2:04 PM (K11.7) Not Available [facility] 4 03:07:46 Sensorine ural hearing loss of bilateral ears 553029461 Active 2016 Sensorine ural hearing loss, bilateral ; Note: Date Diagnosed : 08/11/2016 12:23 PM (H90.3) Not Available [facility] 4 03:07:47 Dysphagia 74093231 Active 2021 Dysphagia , unspecifi ed; Note: Date Diagnosed : 08/10/2021 1:29 PM (R13.10) Not Available [facility] 4 03:07:47 Allergic rhinitis 80813572 Active 2018 Other allergic rhinitis; Note: Date Diagnosed : 07/24/2018 2:03 PM (J30.89) Not Available [facility] 4 03:07:47 Chronic sialadeni tis 607528925 Active 2018 Chronic sialoaden itis; Note: Date Diagnosed : 07/24/2018 2:03 PM (K11.23) Not Available [facility] 4 03:07:46 Impacted cerumen of bilateral ears 60206944501 83445 Active 2016 Impacted cerumen, bilateral ; Note: Date Diagnosed : 03/01/2016 1:00 PM (H61.23) Not Available [facility] 4 03:07:45 Chronic pharyngit is 259733 Active 2019 Chronic sore throat; Note: Date Diagnosed : 07/18/2019 3:39 PM (J31.2) Not Available [facility] 4 03:07:45 Posterior rhinorrhe a 90733461 Active 2024 FARTUN HERNANDEZ PA-C [address] [place] [address],[place] [address], [place], [address] , [facility] 5 09:48:30 Ear pressure sensation 319849338 Active 2024 FARTUN HERNANDEZ PA-C [address] [place] [address],[place] [address], [place], [address] , [facility] 5 12:09:01 Problem Notes None recorded. Procedures Surgical History Date Name Laterality Status Provider Name and Address Organization Details Recorded Time 03/10/19 25 Tympanometry (02052) completed Lorri Levy [facility] 03/10/2024 12:09:43 Imaging Results Imaging Date Name Status LastModified by [facility] Details LastModified Time 03/11/2024 audiogram completed BARCODE [...] ended release 2016 active Medicatio n ID: [id number] Br and Name: Toprol XL Send Method: [...] mg tablet 2016 active Medicatio n ID: [id number] Br and Name: chlorthal ariana Sen d Method: E-Prescri bed Subs Allowed: subs OK Medica tionGener icName: chlorthal idone Not Available Not Available Not Available amlodipine 5 mg tablet TAKE 1 TABLET BY MOUTH EVERY DAY active Not Available Not Available No t Available aspirin 81 mg tablet,del ayed release 2016 active Medicatio n ID: [id number] Br and Name: aspirin S end Method: [...] mg tablet 2016 active Medicatio n ID: [id number] Br and Name: Diovan Se nd Method: [...] mg tablet 2016 active Medicatio n ID: [id number] Br and Name: amlodipin e Send Method: E-Prescri bed Subs Allowed: subs OK Medica tionGener icName: amlodipin e Not Available Not Available Not Available simvastati n 20 mg tablet 2016 active Medicatio n ID: [id number] Br and Name: simvastat in Send Method: E-Prescri bed Subs Allowed: subs OK Medica tionGener icName: simvastat in Not Available Not Available Not Available diclofenac 0.1 % eye drops 2016 active Medicatio n ID: [id number] Br and Name: diclofena c sodium Se nd Method: E-Prescri bed Subs Allowed: subs OK Medica tionGener icName: diclofena c sodium Not Available Not Available Not Available diphenhydr amine 25 mg tablet 2016 active Medicatio n ID: [id number] Br and Name: diphenhyd ramine HCl Send Method: E-Prescri bed Subs Allowed: subs OK Medica tionGener icName: diphenhyd ramine HCl Not Available Not Available Not Available Aquaphor topical ointment 2016 active Medicatio n ID: [id number] Br and Name: Aquaphor Send Method: E-Prescri [...] 2 spray 2020 active Medicatio n ID: [id number] Pr escribed By Name: NIELS Dumont Name: [...] 2 puff 2016 active Medicatio n ID: [id number] Du ration Value: 90 Brand Name: Ventolin HFA Send Method: E-Prescri bed Subs Allowed: subs OK Medica tionGener icName: Ventolin HFA Not Available Not Available Not Available Premarin 0.625 mg tablet 2016 active Medicatio n ID: [id number] Br and Name: Premarin Send Method: E-Prescri bed Subs Allowed: subs OK Medica tionGener icName: Premarin Not Available Not Available Not Available rosuvastat in 40 mg tablet TAKE 1 TABLET BY MOUTH EVERY DAY IN THE MORNING active Not Available Not Available No t Available Prilosec OTC 20 mg tablet,del ayed release 2016 active Medicatio n ID: [id number] Br and Name: Prilosec OTC Send Method: E-Prescri bed Subs Allowed: subs OK Medica tionGener icName: Prilosec OTC Not Available Not Available Not Available metformin ER 1,000 mg tablet,ext ended release 24hr (osmotic) 2016 active Medicatio n ID: [id number] Br and Name: metformin Send Method: E-Prescri bed Subs Allowed: subs OK Medica tionGener icName: metformin Not Available Not Available Not Available albuterol sulfate concentrat e 2.5 mg/0.5 mL solution for nebulizati on 2016 active Medicatio n ID: [id number] Br and Name: albuterol sulfate S end [...] aerosol inhaler 2016 active Medicatio n ID: [id number] Br and Name: Flovent HFA Send Method: [...] Meter kit 2016 active Medicatio n ID: [id number] Br and Name: FreeStyle Lite Meter Sen [...] oxide) capsule 2016 active Medicatio n ID: [id number] Br and Name: magnesium oxide Sen d Method: E-Prescri bed Subs Allowed: subs OK Medica tionGener icName: magnesium oxide Not Available Not Available Not Available lidocaine 5 % topical ointment 2016 active Medicatio n ID: [id number] Br and Name: lidocaine Send Method: E-Prescri bed Subs Allowed: subs OK Medica tionGener icName: lidocaine Not Available Not Available Not Available vitamin B12 1,000 mcg-folic acid 400 mcg sublingual tablet 2016 active Medicatio n ID: [id number] Br and Name: vitamin F32-pmnqk acid Send Method: E-Prescri bed Subs Allowed: subs OK Medica tionGener icName: vitamin G00-bmrfu acid Not Available Not Available Not Available Tanzeum 50 mg/0.5 mL subcutaneo us pen injector 2016 active Medicatio n ID: [id number] Br and Name: Tanzeum S end Method: E-Prescri bed Subs Allowed: subs OK Medica tionGener icName: Tanzeum Not Available Not Available Not Available Jardiance 10 mg tablet 2018 active Medicatio n ID: [id number] Du ration Value: 30 Brand Name: Jardiance Send Method: E-Prescri bed Subs Allowed: subs OK Medica tionGener icName: Jardiance Not Available Not Available Not Available DeVilbiss PulmoNeb LT Compressor -Nebulizer 2016 active Medicatio n ID: [id number] Br and Name: DeVilbiss PulmoNeb LT Comp-Neb [...] perineal applicator 2016 active Medicatio n ID: [id number] Br and Name: Anusol-HC Send Method: E-Prescri bed Subs Allowed: subs OK Medica tionGener icName: Anusol-HC Not Available Not Available Not Available Qvar RediHaler 80 mcg/actuat ion HFA breath activated aerosol 2018 active Medicatio n ID: [id number] Du ration Value: 30 Brand Name: Qvar [...] in a dose pack (Moderate Renal Dose) TAKE 1 DOSE BY MOUTH 2 TIMES DAILY. active Not Available Not Available No t Available Vitals Date Recorded Body weight Body mass index (BMI) Body height Provider Name and Address Organization Details Last Updated DateTime 03/10/2024 07226.08 g 33 kg/m2 142.24 cm Roxane Merlos [place] - [facility] 03/10/2024 11:38:17 Social History None recorded. Functional Status None recorded. Mental Status None recorded. Family History Nothing Reported. Medical History No medical history recorded. Gynecological HistoryNo gynecological history recorded. Obstetrics History GPAL:G 0 P 0 0 0 0 Past Encounters Encounter ID Performer Location Encounter Start Date Encounter Closed Date Diagnosis/Indication Diagnosis SNOMED-CT Code Diagnosis ICD10 Code Diagnosis Note [id number] FARTUN HERNANDEZ PA-C [facility] [address] [address] 03/10/2024 11:10:06 03/10/2024 12:30:23 Ear pressure sensation 548976600 H93.8X9 Audiologic al evaluation results: Tympanomet ry: [...] not maintain a hermetic seal}} Allergic rhinitis 548904 04 J30.89 Health Concerns Section Related Observation LastModified by Organization Nathalia ls LastModified Time None Recorded Concern Status LastModified by Organization Details LastModified Time None Recorded Advance Directives Directive None Recorded Payers Encounter Date Sequence Insurance Name Policy Number Policy Valdovinos Covered Member ID Valdovinos Member ID Guarantor Name 03/10/2024 1 [facility] - DOS ON OR AFTER 2022 - HALFWAY OPTIONS (MEDICARE REPLACEMENT/AD VANTAGE - HMO) Natali Cortes [id number] Natali Cortes Notes Date Note Type Note [...] this triggered her allergies. CRISTINA JUAREZ MD [address] [place] [address], [place], [address], [place] - [facility] 03/10/2024 15:11:38 OBGyn Episode No OBEpisode recorded.
--- OUTSIDE RECORDS SUMMARY | 2024-06-26 12:52 | XMS_ITS | Encounter Summary ---
Author Organization [employer] Address [address] [facility] 7t [place] [address] Care Team Providers Care Marketing Services Rep Name Role Phone Liset Mitchell MD Primary Care Provider [phone] Reason for Visit * Reason Onset Date Comments ER Follow-up 01/29/2024 Encounter Details Date Type Department Care Team ([facility] st Contact Info) Description 01/29/2024 Telephone [facility] CH[facility] MED & PEDS [address] [place], [place] [phone] Liset Mitchell MD [address] [place], [place] [phone] ER Follow-up Social History Tobacco Use Types [...] t he electric, gas, oil or water [employer] threatened to shut off services in your [...] Triage call to Pt with [facility] [place] [id number]. Pt was seen in [facility] ED 01/28/24 for High BP. (reportis on [...] requesting marianne seen today. ASK apt [facility] at 140pm today. Pt agrees with [...] ED visit on : Date: 01/28/24 Hospital: [facility] Seen for: High blood pressure Symptomatic No [...] as of this encounter Care Teams Marketing Services Rep Relationship Specialty Start Date End Date Liset Mitchell MD [address] [place] [address] PCP - General Family Medicine 09/14/20 documented as of this encounter
--- OUTSIDE RECORDS SUMMARY | 2024-06-26 12:52 | XMS_ITS | Encounter Summary ---
Author Organization [employer] Address [address] [facility] 7t [place] [address] Care Team Providers Care Route Driver Salesperson Name Role Phone Liset Mitchell MD Primary Care Provider [phone] Reason for Visit * Reason Comments Med Change Request Encounter Details Date Type Department Care Team ([facility] st Contact Info) Description 10/02/2022 Refill [facility] MED & PEDS [address] [place], [place] [phone] Carla Cheng MD [address] [place] [address] Social History Tobacco Use Types Packs/Day Years [...] documented as of this encounter Care Teams Route Driver Salesperson Relationship Specialty Start Date End Date Liset Mitchell MD [address] [place] [address] PCP - General Family Medicine 09/14/20 documented as of this encounter
--- OUTSIDE RECORDS SUMMARY | 2024-06-26 12:52 | XMS_ITS | Encounter Summary ---
Author Organization [employer] Address [address] [facility] 7t [place] [address] Care Team Providers Care Modular Set Crew Member Name Role Phone Liset Mitchell MD Primary Care Provider [phone] Reason for Visit * Reason Comments Med Refill Encounter Details Date Type Department Care Team ([facility] st Contact Info) Description 04/13/2022 Refill [facility] MEDICINE [address] [place] [address] Liset Mitchell MD [address] [place], [place] [phone] Social History Tobacco Use Types Packs/Day Years [...] documented as of this encounter Care Teams Modular Set Crew Member Relationship Specialty Start Date End Date Liset Mitchell MD [address] [place] [address] PCP - General Family Medicine 09/14/20 documented as of this encounter
[2024-06-26 12:53] LABS: MANUAL DIFF FLAG NO
--- OUTSIDE RECORDS SUMMARY | 2024-06-26 12:53 | XMS_ITS | Encounter Summary ---
Author Organization [employer] Address [address] [facility] [address] [place] [address] Care Team Providers Care Computer Builder Name Role Phone Liset Mitchell MD Primary Care Provider [phone] Reason for Visit * Reason Onset Date Comments ER Follow-up 05/15/2023 Encounter Details Date Type Department Care Team ([facility] st Contact Info) Description 05/15/2023 Telephone [facility] MEDICINE [address] [place], [place] [phone] Liset Mitchell MD 505 [place], [place] [phone] ER Follow-up Social History Tobacco Use Types [...] answer. LM to call us back in [place]ian. Routing back to [facility]. * Telephone Encounter - Sammy Hall - 05/15/2023 4:01 PM EDT Tc from pt returning phone call. * Telephone Encounter - Julieta Montalvo RN - 05/15/2023 3:29 PM EDT TC placed to patient x 2 regarding ED visit below via [place] [employer] and without historical interpreter line. Patient has extended f/u with PCP on 05/25/23. Noted in appointment about recent ED visit for R shoulder pain/dislocation. LM for patient in Mauritanian that we are calling to check in and hope she is feeling better, remindingof upcoming appointment with PCP on 05/25/23 @ 11:15 and asking her to call us if she needs anythingprior to this appointment or needs a sooner appointment. Routing to PCP so she is aware. Patient calling to report ED visit on : Date: 05/13 Hospital: [facility] Seen for: Extremity Injury, Upper shoulder pain while taking x-rays Patient advised will forward to team nurse for follow up * Telephone Encounter - Daniel Franklin - 05/15/2023 11:06 AM EDT Patient calling to report ED visit on : Date: 05/13 Hospital: [facility] Seen for: Extremity Injury, Upper shoulder pain [...] documented as of this encounter Care Teams Computer Builder Relationship Specialty Start Date End Date Liset Mitchell MD [address] [place] [address] PCP - General Family Medicine 09/14/20 documented as of this encounter
--- OUTSIDE RECORDS SUMMARY | 2024-06-26 12:53 | XMS_ITS | Encounter Summary ---
Author Organization [facility] Address [address] [place] [address] Care Team Providers Care Supervisor [employer] Name Role Phone Liset Mitchell MD Primary Care Provider [phone] Reason for Visit * Reason Comments Weakness - Generalized Hypertension Encounter Details Date Type Department Care Team (Late st Contact Info) Description 06/25/2024 10:48 PM EDT - 06/26/2024 5:09 AM EDT Emergency [facility] Emergency [address] [place] [address] Lucho Chappell MD [address] [place] [id number] Primary hypertension (Primary Dx); Acute nonintractable headache, unspecified headache type Discharge Disposition: Home or Self Care Social History Tobacco Use Types Packs/Day Years Used Date Smoking Tobacco: Never Smokeless Tobacco: Never Alcohol Use Standard Drinks/Week Comments Yes 0 (1 standard drink = 0.6 oz pur e alcohol) Comments No Sex and Gender Information Value Date Recorded Sex Assigned at Not on file Legal Sex Female 2:31 PM EST Gender Identity Not on file Sexual Orientation Not on file documented as of this encounter Last Filed Vital Signs Vital Sign Reading Time Taken Comments Blood Pressure 171/93 06/26/2024 3:42 AM EDT Pulse 74 06/26/2024 3:42 AM EDT Temperature 36.9 ??C (98.4 ??F) 06/25/2024 11:42 PM E DT Respiratory Rate 18 06/26/2024 3:42 AM EDT Oxygen Saturation 97% 06/26/2024 3:42 AM EDT Inhaled Oxygen Concentration - - Weight 67.1 kg (148 lb) 06/25/2024 6:27 PM EDT Height 142.2 cm (4' 8 ) 06/25/2024 6:27 PM EDT Body Mass Index 33.18 06/25/2024 6:27 PM EDT documented in this encounter Discharge Instructions * Discharge Instructions* Lucho Chappell MD - 06/26/2024 3:47 AM EDT Todas morteza pruebas fueron tranquilizadoras. Trevino an??lisis de rudy no muestra anomal??as significativas. Trevino an??lisis de orina es dudoso para rica infecci??n. No presenta s??ntomas urinarios en alisson momento; es poco probable que se trate de rica infecci??n. Si trevino cultivo es positivo, el hospital se pondr?? en contacto con usted y le recetar??n antibi??ticos. [place] Tylenol e ibuprofeno seg??n sea necesario para aliviar el dolor. - [place] 600 mg de ibuprofeno cada 6 horas (no exceda los 2400 mg en 24 horas). - [place] 1000 mg de Tylenol cada 6 horas (no exceda los 4000 mg en 24 horas). - Acumule estos medicamentos seg??n lo acordado (por ejemplo: ibuprofeno a las 9 a. m., Tylenol al mediod??a, ibuprofeno a las 3 p. m., Tylenol a las 6 p. m., etc.). Consulte con trevino m??dico de cabecera. Llame ma??isadora para programar rica iman. Regrese a Urgencias si morteza s??ntomas empeoran, no mejoran o si tiene alguna otra inquietud. ??Mej??rese pronto! Debra por venir hoy a [facility] de [facility]. Todo nuestro equipo trabaja en conjunto para brindarle la mejor atenci??n posible. El examen y el tratamiento que recibi?? en Urgencias se brindaron ??nicamente en casos de EMERGENCIA. No pretende sustituir ni ofrecer atenci??n m??dica completa. Debe consultar con trevino m??dico de cabecera. Por favor, informe a trevino m??dico sobre cualquier problema nuevo o persistente, ya que es imposible reconocer y tratar todos los elementos de rica lesi??n o enfermedad en rica kavitha visita a urgencias. En lissette de que no pueda obtener rica iman de seguimiento a tiempo, o si no mejora, o si empeora, o si presenta alg??n s??ntoma preocupante, por favor, regrese aqu?? de inmediato para rica evaluaci??n adicional. El servicio de urgencias est?? abierto las 24 horas, los 7 d??as de la semana. Trevino informe de kaity se basa en la informaci??n disponible justin trevino estancia en urgencias. All of your testing was reassuring. Your blood work shows no significant abnormalities. Your urinalysis is equivocal for infection. You are not having any urinary symptoms at this time, this is unlikely to be an infection. If your culture is positive then you will be contacted by the hospital and antibiotics will be called in for you. Alternate Tylenol and ibuprofen as needed for pain relief -Take 600 mg of ibuprofen every 6 hours (do not exceed 2400 mg in 24 hrs) -Take 1000 mg of Tylenol every 6 hours (do not exceed 4000 mg in 24 hrs) -Stack these on top of each other as discussed (ie: Ibuprofen at 9 AM, Tylenol at noon, ibuprofen at 3 PM, Tylenol at 6 PM, etc) Follow up with your primary provider. Call tomorrow for an appointment. Return to Emergency Department if your symptoms worsen, don't improve, or any other concerns. Get well soon! Thank you for coming to the [facility] Emergency Department today. Our entire team works together to provide you with the best care possible. Examination and treatment you received in the emergency department has been rendered on an EMERGENCY basis only. It is not intended to be a substitute for or an effort to provide complete medical care. You should follow-up with your primary care provider. Please report to your physician any new or remaining problems, because it is impossible to recognize and treat all elements of injury or illness in a single emergency department visit. In the event that you're unable to obtain a followup appointment in a timely fashion, OR you are not getting any better, OR you are getting worse, OR you develop any symptoms of concern, please return here immediately for further evaluation. The emergency department is open 24 hours a day, 7 days aweek. Your discharge report is based on information that was available when you were in the emergency department. * Attachments The following attachments cannot be sent through Care Everywhere. * Headache (Irish) * Hypertension: General Info (Irish) documented in this encounter Discharge Disposition Disposition Code Departure Means Destination Comment s Home or Self Care documented in this encounter Progress Notes * Rani Park RN - 06/25/2024 6:22 PM EDT Patient called 911 for a few days of htn. States highest was 170/90 Patient with headache and feels increased weakness. Denies chest pain. Keep asking interpretor questions and patient goes on long tangents and doesn't answer the questions. * Pia Spencer RN - 06/25/2024 6:15 PM EDT Pt to ed via ems reports since this morning reports weakness, bodyaches, lower back pain started atrest. Pt has hx htn, took bp at home and noticed bp to be high. 170-180 systolic for ems. Denies any chest pain documented in this encounter Plan of Treatment Pending Results Name Type Priority Associated Diagnoses Date /Time ECG 12 lead ECG STAT 06/25/2024 6 :39 PM EDT Culture urine Microbiology STAT 12:09 AM EDT Scheduled Orders Name Type Priority Associated Diagnoses Orde r Schedule Culture urine Microbiology Routine Once for 1 Occurrences starting 06/26/2024 until 06/26/2024 documented as of this encounter Procedures Procedure Name Priority Date/Time Associated Diagnosis Comments URINALYSIS WITH REFLEX MICROSCOPIC AND CULTURE STAT 06/26/2024 12:09 AM EDT GIL URINE CULTURE TUBE STAT 06/26/2024 12:09 AM EDT URINALYSIS WITH REFLEX MICROSCOPIC AND CULTURE STAT 06/26/2024 12:09 AM EDT RESPIRATORY VIRUS PANEL MOLECULAR STUDY STAT 06/26/2024 12:07 AM EDT TROPONIN I HIGH SENSITIVITY STAT 06/26/2024 12:06 AM EDT LACTATE STAT 06/26/2024 12:06 AM EDT ECG ANNOTATED 06/26/2024 ECG 12-LEAD STAT 06/25/2024 6:39 PM EDT CBC WITH AUTO DIFFERENTIAL STAT 06/25/2024 6:34 PM EDT CBC AND DIFFERENTIAL STAT 06/25/2024 6:34 PM EDT BASIC METABOLIC PANEL STAT 06/25/2024 6:34 PM EDT documented in this encounter Results * Gil urine culture tube (06/26/2024 12:09 AM EDT) Extra Tube Hold for add-ons. 06/26/2024 2:01 AM EDT [facility] Comment:Auto resulted. Urine Urine specimen obtained by clean catch procedure / Unknown Non-blood Collection / Unknown 06/26/2024 12:09 AM EDT 06/26/2024 12:26 AM EDT us Lucho Chappell MD LAB URINE ORDERABLES Final Resu lt [facility] [address] [place] [address], [place] [phone] * (ABNORMAL) Urinalysis with reflex microscopic and culture (06/26/2024 12:09 AM EDT) Specific [place] Urine 1.008 1.003 - 1.030 LAB URINALYSIS - AUTOMATED METHOD 06/26/2024 12:[address] [facility] pH, Urine 6.5 5.0 - 8.0 pH LAB URINALYSIS - AUTOMATED METHOD 06/26/2024 12:[address] [facility] Leukocytes, Urine Moderate(A) Negative LAB URINALYSIS - AUTOMATED METHOD 06/26/2024 12:[address] [facility] Nitrite, Urine Negative Negative LAB URINALYSIS - AUTOMATED METHOD 06/26/2024 12:[address] [facility] Protein, Urine Negative <=Trace mg/dL LAB URINALYSIS - AUTOMATED METHOD 06/26/2024 12:[address] [facility] Glucose, Urine Negative Negative mg/dL LAB URINALYSIS - AUTOMATED METHOD 06/26/2024 12:[address] [facility] Ketones, Urine Negative Negative mg/dL LAB URINALYSIS - AUTOMATED METHOD 06/26/2024 12:[address] [facility] Urobilinogen , Urine 0.2 0.2 - 1.0 mg/dL LAB URINALYSIS - AUTOMATED METHOD 06/26/2024 12:[address] [facility] Bilirubin, Urine Negative Negative LAB URINALYSIS - AUTOMATED METHOD 06/26/2024 12:[address] [facility] Blood, Urine Negative Negative LAB URINALYSIS - AUTOMATED METHOD 06/26/2024 12:[address] [facility] RBC, Urine 0.9 0 - 4 /HPF LAB URINALYSIS - AUTOMATED METHOD 06/26/2024 12:34 AM EDT [facility] WBC, Urine 7.4(H) 0 - 4 /HPF LAB URINALYSIS - AUTOMATED METHOD 06/26/2024 12:34 AM EDT [facility] Squamous Epithelial, Urine 90(H) 0 - 60 /LPF LAB URINALYSIS - AUTOMATED METHOD 06/26/2024 12:34 AM EDT [facility] Bacteria, Urine Negative Negative /HPF LAB URINALYSIS - AUTOMATED METHOD 06/26/2024 12:34 AM EDT [facility] Hyaline Casts, Urine 0.0 0 - 3 /LPF LAB URINALYSIS - AUTOMATED METHOD 06/26/2024 12:34 AM T [facility] Urine Urine specimen obtained by clean catch procedure / Unknown Non-blood Collection / Unknown 06/26/2024 12:09 AM EDT 06/26/2024 12:26 AM EDT Lucho Chappell MD LAB URINE ORDERABLES Final Resu lt [facility] [address] [place] [address], * Respiratory virus panel molecular study (06/26/2024 12:07 AM EDT) Adenovirus Detection by PCR Not Detected Not Detected LAB MICROBIOLOGY METHOD 06/26/2024 1:21 AM EDT [facility] Influenza A PCR Not Detected Not Detected LAB MICROBIOLOGY METHOD 06/26/2024 1:21 AM EDT [facility] Influenza B PCR Not Detected Not Detected LAB MICROBIOLOGY METHOD 06/26/2024 1:21 AM EDT [facility] Coronavirus 229E Not Detected Not Detected LAB MICROBIOLOGY METHOD 06/26/2024 1:21 AM EDT [facility] Coronavirus HKU1 Not Detected Not Detected LAB MICROBIOLOGY METHOD 06/26/2024 1:21 AM EDT [facility] Coronavirus OC43 Not Detected Not Detected LAB MICROBIOLOGY METHOD 06/26/2024 1:21 AM EDT [facility] Coronavirus NL63 Not Detected Not Detected LAB MICROBIOLOGY METHOD 06/26/2024 1:21 AM EDT [facility] Parainfluenza Virus 1 Not Detected Not Detected LAB MICROBIOLOGY METHOD 06/26/2024 1:21 AM EDT [facility] Parainfluenza Virus 2 Not Detected Not Detected LAB MICROBIOLOGY METHOD 06/26/2024 1:21 AM EDT [facility] Parainfluenza Virus 3 Not Detected Not Detected LAB MICROBIOLOGY METHOD 06/26/2024 1:21 AM EDT [facility] Parainfluenza Virus 4 Not Detected Not Detected LAB MICROBIOLOGY METHOD 06/26/2024 1:21 AM EDT [facility] RSV PCR Not Detected Not Detected LAB MICROBIOLOGY METHOD 06/26/2024 1:21 AM EDT [facility] Human Metapneumovirus A and B Not Detected Not Detected LAB MICROBIOLOGY METHOD 06/26/2024 1:21 AM EDT [facility] Rhinovirus/Entero virus Not Detected Not Detected LAB MICROBIOLOGY METHOD 06/26/2024 1:21 AM EDT [facility] Bordetella pertussis Not Detected Not Detected LAB MICROBIOLOGY METHOD 06/26/2024 1:21 AM EDT [facility] Bordetella parapertussis Not Detected Not Detected LAB MICROBIOLOGY METHOD 06/26/2024 1:21 AM EDT [facility] Mycoplasma pneumo by PCR Not Detected Not Detected LAB MICROBIOLOGY METHOD 06/26/2024 1:21 AM EDT [facility] Chlamydia pneumoniae Not Detected Not Detected LAB MICROBIOLOGY METHOD 06/26/2024 1:21 AM EDT [facility] SARS COV-2 Not Detected Not Detected LAB MICROBIOLOGY METHOD 06/26/2024 1:21 AM EDT [facility] Swab Both anterior nares / Unknown Non-blood Collection / Unknown 06/26/2024 12:07 AM EDT 06/26/2024 12:27 AM EDT Narrative [facility] - 06/26/2024 1:21 AM EDT Testing was performed using the [facility] Respiratory Pathogen PCR Assay. All results must be correlated with the clinical findings. Results should not be used as the sole basis for diagnosis. False Negative results may occur from the presence of sequence variants in the region targeted by the assay or the presence of inhibitors. Results may be affected by concurrent antiviral/antimicrobial therapy or levels of organisms that are below the limit of detection. us Lucho Chappell MD [facility] Final Result Performing Organization Address City/[facility]/ZIP Co de Phone Number [facility] [address] [place] [address], * Lactate (06/26/2024 12:06 AM EDT) Pathologist [facility] Lactate 0.8 0.4 - 2.0 mmol/L LAB CHEMISTRY METHOD 06/26/2024 12:56 AM EDT [facility] Blood Venous blood specimen / Unknown Venipuncture / Unknown 06/26/2024 12:06 AM EDT 06/26/2024 12:26 AM EDT us Lucho Chappell MD LAB BLOOD ORDERABLES Final Resu lt [facility] [address] [place] [address], * Troponin I High Sensitivity (06/26/2024 12:06 AM EDT) High Sensitivity Troponin I 17 <=54 ng/L LAB CHEMISTRY METHOD 06/26/2024 12:56 AM EDT [facility] Blood Venous blood specimen / Unknown Venipuncture / Unknown 06/26/2024 12:06 AM EDT 06/26/2024 12:26 AM EDT Narrative [facility] - 06/26/2024 12:56 AM EDT High levels of biotin in samples may falsely decrease hsTroponin values. ??Use caution when interpreting hsTroponin results in patients taking biotin who exhibit renal impairment (eGFR <60) or in patients taking more than 20 mg/day of biotin. us Lucho Chappell MD LAB BLOOD ORDERABLES Final Resu lt [facility] [address] [place] [address], [place] [phone] * ECG-Annotated (06/26/2024) us Provider Onbase ECG ORDERABLES Final Result * CBC auto differential (06/25/2024 6:34 PM EDT) WBC 6.5 4.8 - 10.8 K/mcL LAB HEMETOLOGY METHOD 06/25/2024 6:51 PM EDT [facility] RBC 4.60 3.80 - 4.80 M/mcL LAB HEMETOLOGY METHOD 06/25/2024 6:51 PM EDT [facility] Hemoglobin 14.0 11.5 - 16.0 g/dL LAB HEMETOLOGY METHOD 06/25/2024 6:51 PM EDT [facility] Hematocrit 41.3 35.0 - 47.0 % LAB HEMETOLOGY METHOD 06/25/2024 6:51 PM EDT [facility] MCV 89.4 79.0 - 98.0 FL LAB HEMETOLOGY METHOD 06/25/2024 6:51 PM EDT [facility] MCH 30.3 27.0 - 32.0 pcg LAB HEMETOLOGY METHOD 06/25/2024 6:51 PM EDT [facility] MCHC 33.9 32.0 - 37.0 g/dL LAB HEMETOLOGY METHOD 06/25/2024 6:51 PM EDT [facility] RDW 12.8 11.0 - 15.0 % LAB HEMETOLOGY METHOD 06/25/2024 6:51 PM EDT [facility] Platelets 180 130 - 400 K/mcL LAB HEMETOLOGY METHOD 06/25/2024 6:51 PM EDT [facility] MPV 11.0 7.0 - 11.0 FL LAB HEMETOLOGY METHOD 06/25/2024 6:51 PM EDT [facility] NRBC 0.0 <1.0 % LAB HEMETOLOGY METHOD 06/25/2024 6:51 PM EDT [facility] NRBC Absolute 0.00 <0.10 K/mcL LAB HEMETOLOGY METHOD 06/25/2024 6:51 PM EDT [facility] Neutrophils Relative 51.7 % LAB HEMETOLOGY METHOD 06/25/2024 6:51 PM EDT [facility] Lymphocytes Relative 36.7 % LAB HEMETOLOGY METHOD 06/25/2024 6:[facility] Monocytes Relative 8.6 % LAB HEMETOLOGY METHOD 06/25/2024 6:51 PM EDT [facility] Eosinophils Relative 2.1 % LAB HEMETOLOGY METHOD 06/25/2024 6:51 PM EDT [facility] Basophils Relative 0.6 % LAB HEMETOLOGY METHOD 06/25/2024 6:51 PM EDT [facility] Immature Granulocytes Relative 0.3 % LAB HEMETOLOGY METHOD 06/25/2024 6:51 PM EDT [facility] Neutrophils Absolute 3.38 1.50 - 7.00 K/mcL LAB HEMETOLOGY METHOD 06/25/2024 6:51 PM EDT [facility] Lymphocytes Absolute 2.40 1.00 - 5.00 K/mcL LAB HEMETOLOGY METHOD 06/25/2024 6:51 PM EDT [facility] Monocytes Absolute 0.56 0.20 - 1.00 K/mcL LAB HEMETOLOGY METHOD 06/25/2024 6:51 PM EDT [facility] Eosinophils Absolute 0.14 0.00 - 0.50 K/[facility] LAB HEMETOLOGY METHOD 06/25/2024 6:51 PM EDT [facility] Basophils Absolute 0.04 0.00 - 0.20 K/[facility] LAB HEMETOLOGY METHOD 06/25/2024 6:51 PM EDT [facility] Immature Granulocytes Absolute 0.02 0.00 - 0.03 K/[facility] LAB HEMETOLOGY METHOD 06/25/2024 6:51 PM EDT [facility] Blood Venous blood specimen / Unknown Venipuncture / Unknown 06/25/2024 6:34 PM EDT 06/25/2024 6:45 PM EDT us Lucho Chappell MD LAB BLOOD ORDERABLES Final Resu lt [facility] [address] [place] [address], * (ABNORMAL) Basic metabolic panel (06/25/2024 6:34 PM EDT) Sodium 136 133 - 145 mmol/L LAB CHEMISTRY METHOD 06/25/2024 7:24 PM EDT [facility] Potassium 4.6 3.5 - 5.5 mmol/L LAB CHEMISTRY METHOD 06/25/2024 7:24 PM EDT [facility] Chloride 104 96 - 110 mmol/L LAB CHEMISTRY METHOD 06/25/2024 7:24 PM EDT [facility] CO2 25 21 - 32 mmol/L LAB CHEMISTRY METHOD 06/25/2024 7:24 PM EDT [facility] Anion Gap 7 3 - 11 LAB CHEMISTRY METHOD 06/25/2024 7:24 PM EDT [facility] Glucose 142(H) 70 - 100 mg/dL LAB CHEMISTRY METHOD 06/25/2024 7:24 PM T [facility] BUN 33(H) 5 - 25 mg/dL LAB CHEMISTRY METHOD 06/25/2024 7:24 PM T [facility] Creatinine 0.92 0.50 - 1.10 mg/dL LAB CHEMISTRY METHOD 06/25/2024 7:24 PM EDT [facility] eGFR 64 >=60 mL/min/1. 73m2 LAB CHEMISTRY METHOD 06/25/2024 7:24 PM EDT [facility] Comment:Calculation based on the??Chronic Kidney Disease Epidemiology Collaboration (CKD-EPI) equation refit??without adjustment for race. BUN/Creatinine Ratio 35.9 LAB CHEMISTRY METHOD 06/25/2024 7:24 PM T [facility] Calcium 9.6 8.5 - 10.5 mg/dL LAB CHEMISTRY METHOD 06/25/2024 7:24 PM T [facility] Blood Venous blood specimen / Unknown Venipuncture / Unknown 06/25/2024 6:34 PM EDT 06/25/2024 6:45 PM EDT Lucho Chappell MD LAB BLOOD ORDERABLES Final Resu lt [facility] [address] [place] [address], documented in this encounter Visit Diagnoses Diagnosis Primary hypertension- Primary Unspecified essential hypertension Acute nonintractable headache, unspecified headache type documented in this encounter Administered Medications Inactive Administered Medications - up to 3 most recent administrations Medication Order MAR Action Action Date Dose Rate Site hydrALAZINE (APRESOLINE) tablet 10 mg 10 mg, oral, Once, On Jessica 5/1/25 at 0356, For 1 dose Given 06/26/2024 4:05 AM EDT 10 mg documented in this encounter Active and Recently Administered Medications Times are shown in EDT. Scheduled Medication Order 06/24/2024 06/25/2024 06/26/2024 unugzbbsib-ykhahrsnqdixy-lsuexiu e (FIORICET, ESGIC) 50-325-40 mg per tablet 1 tablet 1 tablet, oral, Once, On Jessica 06/26/24 at 0347, For 1 dose 0407 (Not Given - Pr ovider: Sohail Wetzel, NELSON - Reason: Patient/Resident/Agent refused - education provided ) hydrALAZINE (APRESOLINE) tablet 10 mg (COMPLETED) 10 mg, oral, Once, On Jessica 06/26/24 at 0356, For 1 dose 0405 (Given - Provid er: Sohail Wetzel RN) documented in this encounter Orders Medications Ordered That Jeremiah ht Not Have Been Administered Count Last Ordered Date First Ordered Date gosnqumcwd-dlslpwkcymgec-lhh feine (FIORICET, ESGIC) 50-325-40 mg per tablet 1 tablet 1 06/26/2024 documented in this encounter Additional Health Concerns Infection Onset Date Last Indicated Resolved Time Respiratory Rule-Out 06/25/2024 06/26/2024 025 1:21 AM EDT COVID-19 Rule-Out 06/25/2024 06/26/2024 06/26/2024 1:21 AM EDT documented as of this encounter Care Teams Supervisor [employer] Relationship Specialty Start Date End Date Liset Mitchell MD [address] [place] [address] PCP - General 08/09/21 documented as of this encounter
--- OUTSIDE RECORDS SUMMARY | 2024-06-26 12:53 | XMS_ITS | Encounter Summary ---
Author Organization 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) Sera Clark MD [address] [place] [address] Phone: tel: fax: Referral ID Status Reason Start Date Expiration Date Visits Re quested Visits Authorized [id number] Closed 1 1 Encounter Details Date Type Department Care Team (Late st Contact Info) Description 06/23/2024 Refill [facility] [address] [place] [address] Liset Mitchell MD [address] [place] [address] Type 2 diabetes mellitus with other circulatory complication, 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 [facility] states [facility] is told call and request these meds be sent to them. Most recent meds pended and sent to provider. documented in this encounter Plan of Treatment Not on file documented as of this encounter Visit Diagnoses Diagnosis Type 2 diabetes mellitus with other circulatory complication, without long-term current use of insulin ([facility]) Constipation, unspecified constipation type Anxiety Anxiety state, unspecified Hypertension, unspecified type documented in this encounter Additional Health Concerns Assessment Noted Time PHQ-9 Depression Total Score: 4 02/28/19 25 9:06 AM EST documented as of this encounter Care Teams [place] Relationship Specialty Start Date End Date Liset Mitchell MD [address] [place] [address] PCP - General Family Medicine 09/14/20 documented as of this encounter
--- OUTSIDE RECORDS SUMMARY | 2024-06-26 12:53 | XMS_ITS | Encounter Summary ---
Author Organization [facility] [employer] Address [address] [place] [address] Care Team Providers Care Tank Truck Milk Receiver Name Role Phone Liset Mitchell MD Primary Care Provider [phone] Reason for Visit * Reason Onset Date Comments Nurse Triage 06/26/2024 Encounter Details Date Type Department Care Team ([facility] st Contact Info) Description 06/26/2024 Telephone [facility] MEDICINE [address] [place] [address] Liset Mitchell MD [address] [place], [place] [phone] Nurse Triage Social History Tobacco Use Types [...] encounter Miscellaneous Notes * Telephone Encounter - Abiola Alex RN - 06/26/2024 12:05 PM EDT Called pt. Via [employer] radio mechanic [phone] Rajiv Quintana. No answer. Tenant Selector left message on pt.Voice mail to call back [facility] nurses at [phone]. Tenant Selector called back x2. No answer. Tenant Selector did not leave second message. Tenant Selector called x3 and Tenant Selector left message for pt. To be seen in ED if she is not already there. RE: High Blood pressure * Telephone Encounter - Vance De La Cruz - 06/26/2024 12:01 PM EDT Tc from pt returning call regarding prior message. Contact pt at [phone] * Telephone Encounter - Abiola Alex RN - 06/26/2024 9:44 AM EDT Patient calling to report ED visit on : Date: 06/25/24 Hospital: [facility] ED Seen for: High B/P Symptomatic Yes *if yes message should go to Triage Pt reports did not treat her succefully . Currently has high b/p 200/107 Pulse 100 Called pt. Via [employer] radio mechanic [phone] [address]. No answer. Tenant Selector unable to leave message asphone kept ringing. Called pt. Back x2. This time pt. Did not answer but, radio mechanic was able to leave message for pt. To call back [facility] nurses at [phone]. Will send this note to [facility] nurses to attempt to call pt. As this BP number is very high. * Telephone Encounter - Ion Magdy - 06/26/2024 9:35 AM EDT Patient calling to report ED visit on : Date: 06/25/24 Hospital: [facility] Seen for: High B/P Symptomatic Yes *if yes message should go to Triage Pt reports did not treat her succefully . Currently has high b/p 200/107 Pulse 100 *pt crying on the line Mexican speaking documented in this encounter Plan of Treatment Not on file documented as of this encounter Visit Diagnoses Not on filedocumented in this encounter Additional Health Concerns Assessment Noted Time PHQ-9 Depression Total Score: 4 02/28/19 25 9:06 AM EST documented as of this encounter Care Teams Tank Truck Milk Receiver Relationship Specialty Start Date End Date Liset Mitchell MD [address] [place] [address] PCP - General Family Medicine 09/14/20 documented as of this encounter
--- OUTSIDE RECORDS SUMMARY | 2024-06-26 12:53 | XMS_ITS | Encounter Summary ---
Author Organization [employer] Address [address] 7[address] [place] [address] Care Team Providers Care Center Medical And Lab Director Name Role Phone Liset Mitchell MD Primary Care Provider [phone] Reason for Visit * Reason Onset Date Comments Med Refill 06/23/2024 Encounter Details Date Type Department Care Team ([facility] st Contact Info) Description 06/23/2024 Telephone [facility] MEDICINE [address] [place], [place] [phone] Liset Mitchell MD [address] [place], [place] [phone] Med Refill Social History Tobacco Use Types Packs/Day Years [...] encounter Miscellaneous Notes * Telephone Encounter - Ion Curran - 06/23/2024 11:16 AM EDT TC from pt requesting medication refill. Medications needing refill : aluminum-magnesium hydroxide-simethicone (Maalox MAX) 400-400-40 MG/5ML suspension Continuous Blood Gluc Sensor (FreeStyle Aristides 2 Sensor) misc Diclofenac Sodium 1 % gel fluconazole (Diflucan) 150 MG tablet fluticasone (Flonase) 50 MCG/ACT nasal spray psyllium (Metamucil Smooth Texture) 58.6 % powder [facility] be [facility]: [facility] - [address] *pharmacy unable to get [facility] to transfer scripts. documented in this encounter Plan of Treatment Not on file documented as of this encounter Visit Diagnoses Not on filedocumented in this encounter Additional Health Concerns Assessment Noted Time PHQ-9 Depression Total Score: 4 02/28/19 25 9:06 AM EST documented as of this encounter Care Teams Center Medical And Lab Director Relationship Specialty Start Date End Date Liset Mitchell MD [address] [place] [id number] PCP - General Family Medicine 09/14/20 documented as of this encounter
--- OUTSIDE RECORDS SUMMARY | 2024-06-26 12:53 | XMS_ITS | Encounter Summary ---
Author Organization [employer] Address [address] [place] [address] Care Team Providers Care Occ Therapy Asst Name Role Phone Liset Mitchell MD Primary Care Provider [phone] Reason for Visit * Reason Onset Date Comments Med Refill 06/24/2024 Encounter Details Date Type Department Care Team ([facility] st Contact Info) Description 06/24/2024 Refill [facility] MEDICINE [address] [place], [place] [phone] Liset Mitchell MD [address] [place], [place] [phone] Musculoskeletal pain Social History Tobacco Use Types Packs/Day Years [...] encounter Miscellaneous Notes * Telephone Encounter - Ginny Rueda LPN - 06/24/2024 10:46 AM EDT PCP off. Last seen 05/30/24. * Telephone Encounter - Vance De La Cruz - 06/24/2024 10:31 AM EDT TC from pt requesting medication refill. Medications needing refill : baclofen (Lioresal) 10 MG tablet azelastine (Optivar) 0.05 % ophthalmic solution Diclofenac Sodium 1 % gel To be sent to: [facility] - [place], [place] - [address] [place] [address] documented in this encounter Plan of Treatment Not on file documented as of this encounter Visit Diagnoses Diagnosis Musculoskeletal pain Unspecified myalgia and myositis documented in this encounter Additional Health Concerns Assessment Noted Time PHQ-9 Depression Total Score: 4 02/28/19 25 9:06 AM EST documented as of this encounter Care Teams Occ Therapy Asst Relationship Specialty Start Date End Date Liset Mitchell MD [address] [place] [address] PCP - General Family Medicine 09/14/20 documented as of this encounter
--- OUTSIDE RECORDS SUMMARY | 2024-06-26 12:53 | XMS_ITS | Clinical Summary ---
Author Organization [facility] Address [address] [place] [address] Phone Care Team Providers Care Rn Hemodialysis Charge Name Role Phone Liset Mitchell MD Primary [...] Encounters Date Type Department Care Team Description 06/25/2024 10:48 PM EDT - 06/26/2024 5:09 AM EDT Emergency [facility] Emergency [address] [place] [address] Lucho Chappell MD Primary hypertension (Primary Dx); Acute nonintractable headache, unspecified headache type Discharge Disposition: Home or Self Care from Last 3 Months Medical History Medical History Date Comments Hypertension 07/24/2018 DX:Hypertension Asthma-COPD overlap syndrome ([facility] V24, [facility] V28) 05/24/2018 DX:Asthma-COPD overlap syndr ome (HCC) Hiatal hernia 05/24/2018 DX:Hiatal hernia Pulmonary nodule 05/24/2018 DX:Pulmonary no dule Hyperlipidemia 07/24/2018 DX:Hyperlipidemi a Anxiety and depression 07/24/2018 DX:Anxiet y and depression Constipation 07/24/2018 DX:Constipation Vitamin B 12 deficiency 07/24/2018 DX:Vitam in B 12 deficiency Allergic rhinitis 07/24/2018 DX:Allergic rh initis Congestive heart failure ([facility] V24, [facility] V28) 07/24/2018 DX:Congestive heart failure (HCC) Recurrent herpes labialis 07/24/2018 DX:Rec urrent herpes labialis 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 History of colon polyps 07/24/2018 DX:Histo ry of colon polyps ROXIE (obstructive sleep apnea) 07/24/2018 DX :ROXIE (obstructive sleep apnea) Type 2 diabetes mellitus wit hout complication ([facility] V24, [facility] V28) 07/24/2018 DX:Type 2 diabetes mellitus without complication ([facility]) HTN (hypertension) DX:HTN (hyper tension) GERD (gastroesophageal reflux disease) DX:GERD (gastroesophageal reflux disease) Depression DX:Depression 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 ([facility] V24, [facility] V28) DX:Insulin depende nt type 2 diabetes mellitus ([facility]) Social History Tobacco Use Types [...] Mass Index 33.18 06/25/2024 6:27 PM EDT Plan of Treatment Health Maintenance [...] 01/25/2022 Social Influencers of Health Screening 01/25/2022 COVID-19 Vaccine ( season) 2023 02/02/2021, 07/15/2020, 06/24/2020 Influenza Vaccine (Season Ended) 2024 02/06/2019, 01/09/2018, 04/06/2017, Additional history exists Diabetes: Blood Sugar Control Test (HGBA1C) 11/29/2024 05/30/2024, 08/03/2023 Diabetes: Annual Urine Albumin-Creatinine Ratio (uACR) 12/23/2024 12/24/2023, 12/19/2022, 10/13/2021 Depression Screening 02/28/2025 02/29/2024 Diabetes: Annual GFR (Glomerular Filtration Rate) 06/25/2025 06/25/2024, 01/26/2024, 11/02/2023, Additional history exists Hypertension/CHF/CAD Annual BMP Blood Test 06/25/2025 06/25/2024, 01/26/2024, 11/02/2023, Additional history exists Cholesterol Screening (Lipid Panel) 12/23/2028 12/24/2023, 10/10/2023 [...] age to complete this topic Meningococcal B Vaccine Aged Out No l onger eligible based on patient's age to complete this topic RSV Immunization Patients Under 20 months Aged Out No longer eligible based on patient's age to complete this topic Varicella Vaccines Aged Out No longer eligible based on patient's age to complete this topic Procedures Procedure Name Priority Date/Time Associated Diagnosis Comments GIL URINE CULTURE TUBE STAT 06/26/2024 12:09 AM EDT URINALYSIS WITH REFLEX MICROSCOPIC AND CULTURE STAT 06/26/2024 12:09 AM EDT URINALYSIS WITH REFLEX MICROSCOPIC AND CULTURE STAT 06/26/2024 12:09 AM EDT RESPIRATORY VIRUS PANEL MOLECULAR STUDY STAT 06/26/2024 12:07 AM EDT LACTATE STAT 06/26/2024 12:06 AM EDT TROPONIN I HIGH SENSITIVITY STAT 06/26/2024 12:06 AM EDT ECG ANNOTATED 06/26/2024 ECG 12-LEAD STAT 06/25/2024 6:39 PM EDT CBC WITH AUTO DIFFERENTIAL STAT 06/25/2024 6:34 PM EDT BASIC METABOLIC PANEL STAT 06/25/2024 6:34 PM EDT CBC AND DIFFERENTIAL STAT 06/25/2024 6:34 PM EDT from Last 3 Months Results * (ABNORMAL) Urinalysis with reflex microscopic and culture (06/26/2024 12:09 AM EDT) Specific Sieper Urine 1.008 1.003 - 1.030 LAB URINALYSIS - AUTOMATED METHOD 06/26/2024 12:34 AM [facility] pH, Urine 6.5 5.0 - 8.0 pH LAB URINALYSIS - AUTOMATED METHOD 06/26/2024 12:34 AM [facility] Leukocytes, Urine Moderate(A) Negative LAB URINALYSIS - AUTOMATED METHOD 06/26/2024 12:34 AM [facility] Nitrite, Urine Negative Negative LAB URINALYSIS - AUTOMATED METHOD 06/26/2024 12:34 AM [facility] Protein, Urine Negative <=Trace mg/dL LAB URINALYSIS - AUTOMATED METHOD 06/26/2024 12:34 AM [facility] Glucose, Urine Negative Negative mg/dL LAB URINALYSIS - AUTOMATED METHOD 06/26/2024 12:34 AM [facility] Ketones, Urine Negative Negative mg/dL LAB URINALYSIS - AUTOMATED METHOD 06/26/2024 12:34 AM [facility] Urobilinogen , Urine 0.2 0.2 - 1.0 mg/dL LAB URINALYSIS - AUTOMATED METHOD 06/26/2024 12:34 AM [facility] Bilirubin, Urine Negative Negative LAB URINALYSIS - AUTOMATED METHOD 06/26/2024 12:34 AM [facility] Blood, Urine Negative Negative LAB URINALYSIS - AUTOMATED METHOD 06/26/2024 12:34 AM [facility] RBC, Urine 0.9 0 - 4 /HPF LAB URINALYSIS - AUTOMATED METHOD 06/26/2024 12:34 AM EDT [facility] WBC, Urine 7.4(H) 0 - 4 /HPF LAB URINALYSIS - AUTOMATED METHOD 06/26/2024 12:34 AM EDT [facility] Squamous Epithelial, Urine 90(H) 0 - 60 /LPF LAB URINALYSIS - AUTOMATED METHOD 06/26/2024 12:34 AM EDT [facility] Bacteria, Urine Negative Negative /HPF LAB URINALYSIS - AUTOMATED METHOD 06/26/2024 12:34 AM EDT [facility] Hyaline Casts, Urine 0.0 0 - 3 /LPF LAB URINALYSIS - AUTOMATED METHOD 06/26/2024 12:34 AM EDT [facility] Urine Urine specimen obtained by clean catch procedure / Unknown Non-blood Collection / Unknown 06/26/2024 12:09 AM EDT 06/26/2024 12:26 AM EDT us Lucho Chappell MD LAB URINE ORDERABLES Final Resu lt Performing Organization Address [facility]/ZIP Co de Phone Number [facility] [address] [place] [address], [place] [phone] * Gil urine culture tube (06/26/2024 12:09 AM EDT) Extra Tube Hold for add-ons. 06/26/2024 2:01 AM EDT [facility] Comment:Auto resulted. Urine Urine specimen obtained by clean catch procedure / Unknown Non-blood Collection / Unknown 06/26/2024 12:09 AM EDT 06/26/2024 12:26 AM EDT us Lucho Chappell MD LAB URINE ORDERABLES Final Resu lt Performing Organization Address City/[facility]/ZIP Co de Phone Number [facility] [address] [place] [address], * Respiratory virus panel molecular study (06/26/2024 12:07 AM EDT) [facility] Adenovirus Detection by PCR Not Detected Not Detected LAB MICROBIOLOGY METHOD 06/26/2024 1:21 AM EDT [facility] Influenza A PCR Not Detected Not Detected LAB MICROBIOLOGY METHOD 06/26/2024 1:21 AM EDT [facility] Influenza B PCR Not Detected Not Detected LAB MICROBIOLOGY METHOD 06/26/2024 1:21 AM EDT [facility] Coronavirus 229E Not Detected Not Detected LAB MICROBIOLOGY METHOD 06/26/2024 1:21 AM EDT [facility] Coronavirus HKU1 Not Detected Not Detected LAB MICROBIOLOGY METHOD 06/26/2024 1:21 AM EDT [facility] Coronavirus OC43 Not Detected Not Detected LAB MICROBIOLOGY METHOD 06/26/2024 1:21 AM EDT [facility] Coronavirus NL63 Not Detected Not Detected LAB MICROBIOLOGY METHOD 06/26/2024 1:21 AM EDT [facility] Parainfluenza Virus 1 Not Detected Not Detected LAB MICROBIOLOGY METHOD 06/26/2024 1:21 AM EDT [facility] Parainfluenza Virus 2 Not Detected Not Detected LAB MICROBIOLOGY METHOD 06/26/2024 1:21 AM EDT [facility] Parainfluenza Virus 3 Not Detected Not Detected LAB MICROBIOLOGY METHOD 06/26/2024 1:21 AM EDT [facility] Parainfluenza Virus 4 Not Detected Not Detected LAB MICROBIOLOGY METHOD 06/26/2024 1:21 AM EDT [facility] RSV PCR Not Detected Not Detected LAB MICROBIOLOGY METHOD 06/26/2024 1:21 AM EDT [facility] Human Metapneumovirus A and B Not Detected Not Detected LAB MICROBIOLOGY METHOD 06/26/2024 1:21 AM EDT [facility] Rhinovirus/Entero virus Not Detected Not Detected LAB MICROBIOLOGY METHOD 06/26/2024 1:21 AM EDT [facility] Bordetella pertussis Not Detected Not Detected LAB MICROBIOLOGY METHOD 06/26/2024 1:21 AM EDT [facility] Bordetella parapertussis Not Detected Not Detected LAB MICROBIOLOGY METHOD 06/26/2024 1:21 AM EDT [facility] Mycoplasma pneumo by PCR Not Detected Not Detected LAB MICROBIOLOGY METHOD 06/26/2024 1:21 AM EDT [facility] Chlamydia pneumoniae Not Detected Not Detected LAB MICROBIOLOGY METHOD 06/26/2024 1:21 AM EDT [facility] SARS COV-2 Not Detected Not Detected LAB MICROBIOLOGY METHOD 06/26/2024 1:21 AM EDT [facility] Swab Both anterior nares / Unknown Non-blood Collection / Unknown 06/26/2024 12:07 AM EDT 06/26/2024 12:27 AM EDT Narrative [facility] - 06/26/2024 1:21 AM EDT Testing was performed using the [employer] Respiratory Pathogen PCR Assay. All results must [...] Lucho Chappell MD LAB MICROBIOLOGY - GENERAL DINORAH SAEED Final Result [facility] [address] [place] [address], * Troponin I High Sensitivity (06/26/2024 12:06 AM EDT) [facility] High Sensitivity Troponin I 17 <=54 ng/L LAB CHEMISTRY METHOD 06/26/2024 12:56 AM EDT [facility] Blood Venous blood specimen / Unknown Venipuncture / Unknown 06/26/2024 12:06 AM EDT 06/26/2024 12:26 AM EDT Narrative [facility] - 06/26/2024 12:56 AM EDT High levels of biotin in samples may falsely decrease hsTroponin values. ??Use caution when interpreting hsTroponin results in patients taking biotin who exhibit renal impairment (eGFR <60) or in patients taking more than 20 mg/day of biotin. us Lucho Chappell MD LAB BLOOD ORDERABLES Final Resu lt Performing Organization Address City/[facility]/ZIP Co de Phone Number [facility] [address] [place] [address], [place] [phone] * Lactate (06/26/2024 12:06 AM EDT) Lactate 0.8 0.4 - 2.0 mmol/L LAB CHEMISTRY METHOD 06/26/2024 12:56 AM EDT [facility] Blood Venous blood specimen / Unknown Venipuncture / Unknown 06/26/2024 12:06 AM EDT 06/26/2024 12:26 AM EDT Lucho Chappell MD LAB BLOOD ORDERABLES Final Resu lt Performing Organization Address City/[facility]/ZIP Co de Phone Number [facility] [address] [place] [address], [place] [phone] * ECG-Annotated (06/26/2024) Provider Onbase ECG ORDERABLES Final Result * CBC auto differential (06/25/2024 6:34 PM EDT) WBC 6.5 4.8 - 10.8 K/mcL LAB HEMETOLOGY METHOD 06/25/2024 6:51 PM EDT [facility] RBC 4.60 3.80 - 4.80 M/mcL LAB HEMETOLOGY METHOD 06/25/2024 6:51 PM EDT [facility] Hemoglobin 14.0 11.5 - 16.0 g/dL LAB HEMETOLOGY [facility]24 [facility] Hematocrit 41.3 35.0 - 47.0 % LAB HEMETOLOGY METHOD 06/25/2024 6:51 PM EDT [facility] MCV 89.4 79.0 - 98.0 FL LAB HEMETOLOGY METHOD 06/25/2024 6:[facility] MCH 30.3 27.0 - 32.0 pcg LAB HEMETOLOGY METHOD 06/25/2024 6:51 PM [facility] MCHC 33.9 32.0 - 37.0 g/dL LAB HEMETOLOGY METHOD 06/25/2024 6:51 PM [facility] RDW 12.8 11.0 - 15.0 % LAB HEMETOLOGY METHOD 06/25/2024 6:51 PM [facility] Platelets 180 130 - 400 K/mcL LAB HEMETOLOGY METHOD 06/25/2024 6:51 PM [facility] MPV 11.0 7.0 - 11.0 FL LAB HEMETOLOGY METHOD 06/25/2024 6:51 [facility] NRBC 0.0 <1.0 % LAB HEMETOLOGY METHOD 06/25/2024 6:51 [facility] NRBC Absolute 0.00 <0.10 K/mcL LAB HEMETOLOGY METHOD 06/25/2024 6:51 [facility] Neutrophils Relative 51.7 % LAB HEMETOLOGY METHOD 06/25/2024 6:51 PM [facility] Lymphocytes Relative 36.7 % LAB HEMETOLOGY METHOD 06/25/2024 6:51 PM EDT [facility] Monocytes Relative 8.6 % LAB HEMETOLOGY METHOD 06/25/2024 6:51 PM [facility] Eosinophils Relative 2.1 % LAB HEMETOLOGY METHOD 06/25/2024 6:51 PM [facility] Basophils Relative 0.6 % LAB HEMETOLOGY METHOD 06/25/2024 6:51 PM [facility] Immature Granulocytes Relative 0.3 % LAB HEMETOLOGY METHOD 06/25/2024 6:51 PM [facility] Neutrophils Absolute 3.38 1.50 - 7.00 K/mcL LAB HEMETOLOGY METHOD 06/25/2024 6:51 PM [facility] Lymphocytes Absolute 2.40 1.00 - 5.00 K/mcL LAB HEMETOLOGY METHOD 06/25/2024 6:51 PM [facility] Monocytes Absolute 0.56 0.20 - 1.00 K/mcL LAB HEMETOLOGY METHOD 06/25/2024 6:51 PM [facility] Eosinophils Absolute 0.14 0.00 - 0.50 K/mcL LAB HEMETOLOGY METHOD 06/25/2024 6:51 PM [facility] Basophils Absolute 0.04 0.00 - 0.20 K/mcL LAB HEMETOLOGY METHOD 06/25/2024 6:51 PM [facility] Immature Granulocytes Absolute 0.02 0.00 - 0.03 K/mcL LAB HEMETOLOGY METHOD 06/25/2024 6:51 PM [facility] Blood Venous blood specimen / Unknown Venipuncture / Unknown 06/25/2024 6:34 PM EDT 06/25/2024 6:45 PM EDT us Lucho Chappell MD LAB BLOOD ORDERABLES Final Resu lt [facility] [address] [place] [address], * (ABNORMAL) Basic metabolic panel (06/25/2024 6:34 PM EDT) Sodium 136 133 - 145 mmol/L LAB CHEMISTRY METHOD 06/25/2024 7:24 PM EDT [facility] Potassium 4.6 3.5 - 5.5 mmol/L LAB CHEMISTRY METHOD 06/25/2024 7:24 PM EDT [facility] Chloride 104 96 - 110 mmol/L LAB CHEMISTRY METHOD 06/25/2024 7:24 PM [facility] CO2 25 21 - 32 mmol/L LAB CHEMISTRY METHOD 06/25/2024 7:24 [facility] Anion Gap 7 3 - 11 LAB CHEMISTRY METHOD 06/25/2024 7:24 PM [facility] Glucose 142(H) 70 - 100 mg/dL LAB CHEMISTRY METHOD 06/25/2024 7:24 PM [facility] BUN 33(H) 5 - 25 mg/dL LAB CHEMISTRY METHOD 06/25/2024 7:24 PM [facility] Creatinine 0.92 0.50 - 1.10 mg/dL LAB CHEMISTRY METHOD 06/25/2024 7:24 PM [facility] eGFR 64 >=60 mL/min/1. 73m2 LAB CHEMISTRY METHOD 06/25/2024 7:24 PM [facility] Comment:Calculation based on the??Chronic Kidney Disease Epidemiology Collaboration (CKD-EPI) equation refit??without adjustment for race. BUN/Creatinine Ratio 35.9 LAB CHEMISTRY METHOD 06/25/2024 7:24 PM [facility] Calcium 9.6 8.5 - 10.5 mg/dL LAB CHEMISTRY METHOD 06/25/2024 7:24 PM EDT [facility] Blood Venous blood specimen / Unknown Venipuncture / Unknown 06/25/2024 6:34 PM EDT 06/25/2024 6:45 PM EDT us Lucho Chappell MD LAB BLOOD ORDERABLES Final Resu lt [facility] [address] [place] [address], [place] [phone] from Last 3 Months [id number] [id number] [facility] MEDIC[facility] Member Subscriber Plan / Payer (Ef fective 2012-Present) Name:Natali Bower Relation to Subscriber:Self Name:Natali Bower Payer ID:[id number] Group ID:[id number] Type:Not on file Address: [place] [address] [address] [place] [phone] Care Teams Rn Hemodialysis Charge Relationship Specialty Start Date End Date Liset Mitchell MD [address] [place] [address] PCP - General 08/09/21
--- OUTSIDE RECORDS SUMMARY | 2024-06-26 12:53 | XMS_ITS | Encounter Summary ---
Author Organization [employer] Address [address] [place] [address] Care Team Providers Care Marina Dry Dock Manager Name Role Phone Liset Mitchell MD Primary Care Provider [phone] Reason for Visit * Reason Onset Date Comments Med Refill 06/23/2024 Encounter Details Date Type Department Care Team ([facility] st Contact Info) Description 06/23/2024 Refill [facility] [address] [place], [place] [phone] Liset Mitchell MD [address] [place] [address] Social History Tobacco Use Types Packs/Day Years [...] documented as of this encounter Care Teams Marina Dry Dock Manager Relationship Specialty Start Date End Date Liset Mitchell MD [address] [place] [id number] PCP - General Family Medicine 09/14/20 documented as of this encounter
--- OUTSIDE RECORDS SUMMARY | 2024-06-26 12:53 | XMS_ITS | Encounter Summary ---
Author Organization [employer] Address [address] 7[address] [place] [address] Care Team Providers Care Distresser Name Role Phone Liset Mitchell MD Primary Care Provider [phone] Encounter Details Date Type Department Care Team ([facility] st Contact Info) Description 06/26/2024 Telephone [facility] CHC MED & PEDS [address] [place], [place] [phone] Liset Mitchell MD 505 [place], [place] [phone] Social History Tobacco Use Types Packs/Day Years [...] encounter Miscellaneous Notes * Telephone Encounter - Kathrine Arnett RN - 06/26/2024 10:10 AM EDT Received message from Kira Alex RN asking to contact patient bc she was unable to reach her. BP was 200/107 pulse 100 per Kira. TC to patient via release coordinator. No answer, message left to contact office. TC to Karl (patient son, who is alternative number) he stated patient was on her way to ER due to her elevated BP. Routing to Provider as FYI. documented in this encounter Plan of Treatment Not on file documented as of this encounter Visit Diagnoses Not on filedocumented in this encounter Additional Health Concerns Assessment Noted Time PHQ-9 Depression Total Score: 4 02/28/19 25 9:06 AM EST documented as of this encounter Care Teams Distresser Relationship Specialty Start Date End Date Liset Mitchell MD [address] [place] [address] PCP - General Family Medicine 09/14/20 documented as of this encounter
--- OUTSIDE RECORDS SUMMARY | 2024-06-26 12:53 | XMS_ITS | Continuity of Care Document ---
Author Organization [employer] [facility], [place] [facility] Address [address] [place] [address] Care Team Providers Care Renal Medicine Physician Name Role Phone HIM CCA OTHER [facility] Primary Care Provider Assessment Encounter Date Assessment Date Assessment LastModified by Organization Details LastModified Time 06/24/2024 06/24/2024 service called for dizziness found [...] Modified Time Details Appointments None recorded. Lab None recorded. Referral None recorded. Procedures None recorded. Surgeries None recorded. Imaging electrocard iogram 2024 025 [place]AK [facility], [address] [place] [address], [phone] 22:26:12 Medication Orders None recorded. Patient TargetsNo targets recorded. Patient InstructionsNo instructions recorded. Reason for Referral None Reported. Results Created Date Observation Date Name Description Value Unit Range Abnormal Flag Note LastModifiedBy Organization Detail LastModifiedTime 06/25/19 25 06/24/2024 donell amorgr am No observ ation record ed. [email or web address] [address], [phone] 06/24/2024 22:15:08 Result Notes None recorded. Procedures Surgical History None recorded. Imaging Results Imaging Date Name Status LastModified by Organization Details LastModified Time 06/24/2024 electrocardiogram completed [email or web address] [address], [phone] 06/24/2024 22:15:08 Procedure Notes None recorded. Medical Equipment None Reported. Allergies Allergen ID Allergen Name Allergen Category Reaction Reaction Severity Criticality Documentation Date Start Date Code Code System Note Provider Name and Address Organization Details Recorded Time 27116 metoprolo l Not available Not available Not available Not available 01/30/2024 6918 RxNorm Not Available [facility] - production 17:06:26 6413 ezetimibe medicatio n Not available Not available Not available 11/29/2023 78519 8 RxNorm Not Available [facility] - production 13:58:51 6414 fluticaso ne Not available Not available Not available Not available 11/29/2023 68329 RxNorm Not Available [facility] - production 13:58:51 6415 hydrocodo ne Not available Not available Not available Not available 11/29/2023 5489 RxNorm Not Available [facility] - production 17:06:26 6416 umeclidin ium medicatio n chest pain Not available Not available 11/29/2023 58362 14 RxNorm Giorgio Pathak MD [address] [place] [address],[address], [place], [phone] [place], [place] [address]Gidsy [facility] 16:24:27 6417 lisinopri l medicatio n Not available Not available Not available 11/29/2023 70181 RxNorm Not Available [facility] - production 13:58:51 [...] Available No t Available omeprazole 20 mg capsule,deed yed release TAKE 1 CAPSULE (20 MG) [...] Januvia 100 mg tablet TOME CINDY TABLETA S LOS D active Not Available Not Available [...] Ultra-Fine Micro Pen Needle 32 gauge x / USE INSTRUCTED active Not Available Not Available [...] Available Not Available Not Available Dexcom G7 Dynamite Shooter USE DIRECTED active Not Available Not Available No t Available Dexcom G7 Sensor device USE DIRECTED ..CHANGE EVERY 14 DAYS active Not Available Not Available No t Available Vitals Date Recorded Respiratory rate Heart rate Body height Body weight Heart rate Oxygen saturation Oxygen saturation in Arterial blood by Pulse oximetry Body temperature Systolic blood pressure Diastolic blood pressure Systolic blood pressure Diastolic blood pressure Provider Name and Address Organization Details Last Updated DateTime 5 14 /min 72 /min 157.48 cm 21098.8 g 63 /min 98 % 98 % 98 [degF] 149 mm[Hg] 81 mm[Hg] 160 mm[Hg] 76 mm[Hg] Not Available [facility] production 5 19:38:03 Social History None recorded. Functional Status None recorded. Mental Status None recorded. Family History Nothing Reported. Medical History No medical history recorded. Gynecological HistoryNo gynecological history recorded. Obstetrics History GPAL:G 0 P 0 0 0 0 Past Encounters Encounter ID Performer Location Encounter Start Date Encounter Closed Date Diagnosis/Indication Diagnosis SNOMED-CT Code Diagnosis ICD10 Code Diagnosis Note [id number] González Campo MD Main - [facility] [address] [place] [phone] 06/24/2024 19:37:52 06/24/2024 21:30:35 Dizziness 199021646 R42 Health Concerns Section Related Observation LastModified by Organization Detai ls LastModified Time None Recorded Concern Status LastModified by Organization Details LastModified Time None Recorded Payers Encounter Date Sequence Insurance Name Policy Number Policy Valdovinos Covered Member ID Valdovinos Member ID Guarantor Name 06/24/2024 1 [facility] - DOS ON OR AFTER 2022 - DUAL ELIGIBLE - SKILLED NURSING OPTIONS AND ONE CARE (MEDICARE REPLACEMENT/AD VANTAGE - HMO) Natali Cortes [id number] Natali Cortes Notes Date Note Type Note Provider Name and Address Organization Details Recorded Time 06/24/2024 text/html CRC Nurse Triage Notes (Jaye [...] Artery Disease, Asthma PMH Reviewed at 06/24/2024 - 17:55 Allergies Reviewed at 06/24/2024 - 17:55 Comments: HR 78 y.o female complains of Dizziness, Heart Rate Problems Referral taken via Chlorinator Operator. Patient unable to confirm allergies. Patient calling [...] the hospital. I provided information on the [employer] provider response time and advised the patient and/or caregiver to monitor reported signs and symptoms. I discussed the warning signs of when to seek emergency care. ...................... ...................... ...................... ...................... ...................... ...................... ......... Transportation Department Head Note From Richard Jamison: Patient alert and [...] extremities, unremarkable good skin TURGOR. ECG to [facility]. [facility] advises patient to stop using minoxidil consider watchful waiting and contact PCP or [facility] for further treatment if symptoms return. Red flags, patient education discussed. ...................... ...................... ...................... ...................... ...................... ...................... ......... [facility] Consulted: González Campo ...................... ...................... ...................... ...................... ...................... ...................... ......... Disposition: Fulfilled González Campo MD [address] [place] [address],[address], [place], [address], [employer], [facility] 06/24/2024 21:19:26 OBGyn Episode No OBEpisode recorded.
--- OUTSIDE RECORDS SUMMARY | 2024-06-26 12:53 | XMS_ITS | Encounter Summary ---
Author Organization [employer] Address [address] [facility] 7t [place] [address] Care Team Providers Care Feather Stitcher Name Role Phone Liset Mitchell MD Primary Care Provider [phone] Encounter Details Date Type Department Care Team (Late st Contact Info) Description 05/30/2024 Orders Only [facility] MEDICINE [address] [place], [place] [phone] Eli Rodriguez NP [address] [place], [place] [phone] Social History Tobacco Use Types Packs/Day Years [...] documented as of this encounter Care Teams Feather Stitcher Relationship Specialty Start Date End Date Liset Mitchell MD [address] [place] [address] PCP - General Family Medicine 09/14/20 documented as of this encounter
[2024-06-26 12:55] LABS: Basophils Percent Auto 0.7 % (0-2); Eosinophils Absolute Auto 0.1 X10*3/uL (0.0-0.4); Eosinophils Percent Auto 1.2 % (0-4); Hematocrit 42.7 % (37.0-47.0); Hemoglobin 14.8 g/dl (12.0-16.0); Imm Gran Abs Auto 0.02 X10*3/uL (0.00-0.03); Imm Gran Pct Auto 0.4 % (0.0-0.4); Lymphocytes Absolute Auto 1.6 X10*3/uL (1.2-4.9); Mean Corpuscular HGB Conc 34.7 g/dl (31.0-35.0); Mean Corpuscular Volume 89.3 fL (80.0-98.0); Mean Platelet Volume 10.6 fL (9.4-12.3); Monocytes Absolute Auto 0.4 X10*3/uL (0.1-1.2); Monocytes Percent Auto 6.2 % (2-11); Neutrophils Absolute Auto 3.5 x10*3/uL (2.0-8.3); Neutrophils Percent Auto 62.5 % (45-73); Platelet Count 173 X10*3/uL (160-400); Red Blood Count 4.78 X10*6/uL (4.20-5.50); Red Cell Distribution Width 12.9 % (11.0-16.0); White Blood Count 5.6 X10*3/uL (4.8-10.8)
[2024-06-26 13:16] LABS: Alanine Aminotransferase 29 U/L (0-31); Albumin Level 4.2 g/dL (3.5-5.0); Alkaline Phosphatase 47 U/L (39-117); Anion Gap 14 (12-20); Aspartate Amino Transferase 31 U/L (5-31); Bilirubin Total 0.6 mg/dL (0.0-1.0); Blood Urea Nitrogen 20 mg/dL (9-16); Calcium 9.8 mg/dL (8.4-10.2); Carbon Dioxide 27 mmol/L (22-29); Chloride 105 mmol/L (96-108); Creatinine Clr Calc Pharmacy 43.9; Estimated Glomerular Filt Rate > 60; Glucose Random 128 mg/dL (60-115); Potassium 4.2 mmol/L (3.3-5.1); Sodium 142 mmol/L (135-145); Total Protein 7.1 g/dL (6.5-8.0)
--- NOTE | 2024-06-26 13:44 | PC.NURSE ---
Pt. eating sandwich and drinking jaqui apollo. Denies pain or discomfort at this time.
[2024-06-26 13:59] VITALS: BP 157/59; PULSE 64; RESP 18; TEMP 36.9; O2SAT 97
== END 2024-06-26 14:02 | disposition home or self-care (01) ==
PROVIDERS: Physician Assistant Medical; Emergency Provider Emergency Medicine; PCP Family Medicine
DX: F41.9 Anxiety disorder, unspecified (principal); R00.1 Bradycardia, unspecified; I10 Essential (primary) hypertension; Z79.899 Other long term (current) drug therapy
CPT/HCPCS: 36415; 80053; 83735; 85025; 93005; 99283; 99284

== ENCOUNTER → 2024-06-26 11:44 | Outpatient (BNV) | payer OTHER, SELFPAY | PROVIDERS: Emergency Provider Emergency Medicine; PCP Family Medicine; Visit Provider Internal Medicine Cardiovascular Disease | DX: R00.1 Bradycardia, unspecified (principal); R94.31 Abnormal electrocardiogram [ECG] [EKG] | CPT/HCPCS: 93010 ==

== ENCOUNTER 2024-07-05 23:15 | Emergency (ER) | payer OTHER, SELFPAY ==
[2024-07-05 23:34] VITALS: BP 164/60; PULSE 56; O2SAT 97
[2024-07-05 23:39] VITALS: BP 152/54; PULSE 52; RESP 14; TEMP 36.3; O2SAT 97; BMI 30.9
[2024-07-05 23:43] VITALS: BP 152/54; PULSE 52; RESP 14; TEMP 36.3; O2SAT 97
--- NOTE | 2024-07-05 23:44 | PC.NURSE ---
Pt a&ox4, no signs of distress Pt denies pain at this time Pt reports high b/p at home which is what brought her in Plan of care ongoing.
--- OUTSIDE RECORDS SUMMARY | 2024-07-05 23:52 | XMS_ITS | Encounter Summary ---
Author Organization [employer] Address [address] [place] [address] Care Team Providers Care Perforator Operator Oil Well Name Role Phone Liset Mitchell MD Primary Care Provider [phone] Reason for Visit * Reason Onset Date Comments Medication Question 07/04/2024 Encounter Details Date Type Department Care Team ([facility] st Contact Info) Description 07/04/2024 Telephone [facility] MEDICINE [address] [place] [address] Liset Mitchell MD [address] [place], [place] [phone] Medication Question Social History Tobacco Use Types Packs/Day Years [...] encounter Miscellaneous Notes * Telephone Encounter - Mali Tyler - 07/04/2024 12:05 PM EDT Sam [facility] with [facility] requesting script from all active medication. To be sent to: [facility] - [address] documented in this encounter Plan of Treatment Upcoming Encounters Date Type Department Care Team (Late st Contact Info) Description 07/07/2024 1:15 PM EDT Office Visit [facility] CHC MED & PEDS [address] [place] [address] Liset Mitchell MD 505 [place] [address] documented as of this encounter Visit Diagnoses Not on filedocumented in this encounter Additional Health Concerns Assessment Noted Time PHQ-9 Depression Total Score: 4 02/28/19 25 9:06 AM EST documented as of this encounter Care Teams Perforator Operator Oil Well Relationship Specialty Start Date End Date Liset Mitchell MD [address] [place] [address] PCP - General Family Medicine 09/14/20 documented as of this encounter
--- OUTSIDE RECORDS SUMMARY | 2024-07-05 23:52 | XMS_ITS | Encounter Summary ---
Author Organization [employer] Address [address] [place] [address] Care Team Providers Care Wheel Mill Operator Name Role Phone Liset Mitchell MD Primary Care Provider [phone] Reason for Visit * Reason Onset Date Comments Nurse Triage 05/21/2024 Encounter Details Date Type Department Care Team ([facility] st Contact Info) Description 05/21/2024 Telephone C CHC MED & PEDS [address] [place], [place] [phone] Liset Mitchell MD 505 [place] [address] Nurse Triage Social History Tobacco Use Types [...] Linares LPN - 05/23/2024 12:17 PM EDT [facility] Nurse Jaye advised that company providing SUPERVISOR PROCESS TESTING services is responsible for SUPERVISOR PROCESS TESTING replacement andhours. Unsure who provides those services at this time.. [facility] Nurse to follow as indicated. [...] requesting a call back in regards to SUPERVISOR [employer] hours and medical assistance. 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 Please reach out to patient at your earliest convenience. I have two numbers for patients: [phone] * Telephone Encounter - Esperanza Linares LPN - 05/21/2024 2:44 PM EDT Please obtain [facility] ED note from 05/20/24 * Telephone Encounter - Esperanza Linares LPN - 05/21/2024 2:17 PM EDT Triage call to listed number no answer at time of call. Message left to return call to [phone]. Second call placed with ASHANTI [email or web address]. Patient confirms she was seen in ED [...] Triage Question: * Patient wants doctor (or J2EE PROGRAMMER/PA) to measure BP * All higher-acuity triage [...] ED visit on : Date: 05/20/24 Hospital: [facility] Seen for: high blood pressure Symptomatic: no but is currently experiencing urination symptoms *if yes message should go to Triage Patient advised will forward to team nurse for follow up documented in this encounter Plan of Treatment Upcoming Encounters Date Type Department Care Team (Late st Contact Info) Description 07/07/2024 1:15 PM EDT Office Visit [facility] MED & PEDS [address] [place] [address] Liset Mitchell MD 505 [place] [address] documented as of this encounter Visit Diagnoses Not on filedocumented in this encounter Additional Health Concerns Assessment Noted Time PHQ-9 Depression Total Score: 4 02/28/19 25 9:06 AM EST documented as of this encounter Care Teams Wheel Mill Operator Relationship Specialty Start Date End Date Liset Mitchell MD [address] [place] [address] PCP - General Family Medicine 09/14/20 documented as of this encounter
--- OUTSIDE RECORDS SUMMARY | 2024-07-05 23:52 | XMS_ITS | Encounter Summary ---
Author Organization [email or web address] Address [address] [place] [address] Care Team Providers Care Etl Consultant Name Role Phone Liset Mitchell MD Primary Care Provider [phone] Encounter Details Date Type Department Care Team ([facility] st Contact Info) Description 06/30/2024 Telephone [facility] CHC MED & PEDS [address] [place], [place] [phone] Liset Mitchell MD [address] [place], [place] [phone] Social History Tobacco Use Types Packs/Day Years [...] Upcoming Encounters Date Type Department Care Team ([facility] st Contact Info) Description 07/07/2024 1:15 PM EDT Office Visit [facility] MED & PEDS 505 [place] [address] Liset Mitchell MD [address] [place] [address] documented as of this encounter Visit Diagnoses Not on filedocumented in this encounter Additional Health Concerns Assessment Noted Time PHQ-9 Depression Total Score: 4 02/28/19 25 9:06 AM EST documented as of this encounter Care Teams Etl Consultant Relationship Specialty Start Date End Date Liset Mitchell MD [address] [place] [address] PCP - General Family Medicine 09/14/20 documented as of this encounter
--- OUTSIDE RECORDS SUMMARY | 2024-07-05 23:52 | XMS_ITS | Encounter Summary ---
Author Organization [employer] Address [address]t [place] [address] Care Team Providers Care Product Specialist Name Role Phone Liset Mitchell MD Primary Care Provider [phone] Encounter Details Date Type Department Care Team ([facility] st Contact Info) Description 07/02/2024 Telephone [facility] MEDICINE [address] [place] [address] Liset Mitchell MD [address] [place], [place] [phone] Social History Tobacco Use Types Packs/Day Years [...] Description 07/07/2024 1:15 PM EDT Office Visit [facility] MED & PEDS [address] [place] [address] Liset Mitchell MD [address] [place] [address] documented as of this encounter Visit Diagnoses Not on filedocumented in this encounter Additional Health Concerns Assessment Noted Time PHQ-9 Depression Total Score: 4 02/28/19 25 9:06 AM EST documented as of this encounter Care Teams Product Specialist Relationship Specialty Start Date End Date Liset Mitchell MD [address] [place] [address] PCP - General Family Medicine 09/14/20 documented as of this encounter
--- OUTSIDE RECORDS SUMMARY | 2024-07-05 23:52 | XMS_ITS | Encounter Summary ---
Author Organization [employer] Address [address] [place] [address] Care Team Providers Care Setter Molding And Coremaking Machines Name Role Phone Liset Mitchell MD Primary Care Provider [phone] Encounter Details Date Type Department Care Team (Late st Contact Info) Description 06/27/2024 Orders Only [facility] CHC MED & PEDS [address] [place], [place] [phone] Provider, MD Anne Marie Social History Tobacco [...] housing situation today? I have ciromiriam nogueira 02/29/[address] you [...] Description 07/07/2024 1:15 PM EDT Office Visit [facility] CHC MED & PEDS 505 [place] [address] Liset Mitchell MD 505 [place] [address] documented as of this encounter Procedures Procedure Name Priority Date/Time Associated Diagnosis Comments ECG 12-LEAD Routine 06/25/2024 10:14 AM EDT documented in this encounter Results * ECG 12 lead (06/25/2024 10:14 AM EDT) us Historical Provider ECG ORDERABLES Final Res ult documented in this encounter Visit Diagnoses Not on filedocumented in this encounter Additional Health Concerns Assessment Noted Time PHQ-9 Depression Total Score: 4 02/28/19 25 9:06 AM EST documented as of this encounter Care Teams Setter Molding And Coremaking Machines Relationship Specialty Start Date End Date Liset Mitchell MD [address] [place] [address] PCP - General Family Medicine 09/14/20 documented as of this encounter
--- OUTSIDE RECORDS SUMMARY | 2024-07-05 23:52 | XMS_ITS | Encounter Summary ---
Author Organization [employer] Address [address] [facility] 7t [place] [address] Care Team Providers Care Clinic Physician Director Name Role Phone Liset Mitchell MD Primary Care Provider [phone] Reason for Visit * Reason Onset Date Comments Triage 07/07/2022 Encounter Details Date Type Department Care Team ([facility] st Contact Info) Description 07/07/2022 Telephone C [facility] MED & PEDS 505 [place], [place] [phone] Liset Mitchell MD 505 [place] [address] Triage Social History Tobacco Use Types Packs/Day [...] pt has upcomign appt on 08/03/22 with wood products manufacturer. Pt confirmed that new discharge meds are [...] No answer LVM to return call to [facility] triage line. Protocol Used: No Contact [...] The caller accepted this outcome Patient speaks albanian. documented in this encounter Plan of Treatment Upcoming Encounters Date Type Department Care Team ([facility] st Contact Info) Description 07/07/2024 1:15 PM EDT Office Visit [facility] MED & PEDS [address] [place] [address] Liset Mitchell MD [address] [place] [address] documented as of this encounter Visit Diagnoses Not on filedocumented in this encounter Additional Health Concerns Assessment Noted Time PHQ-9 Depression Total Score: 0 04/13/19 23 10:04 AM EST documented as of this encounter Care Teams Clinic Physician Director Relationship Specialty Start Date End Date Liset Mitchell MD [address] [place] [address] PCP - General Family Medicine 09/14/20 documented as of this encounter
--- OUTSIDE RECORDS SUMMARY | 2024-07-05 23:52 | XMS_ITS | Encounter Summary ---
Author Organization [employer] Address [address] [place] [address] Care Team Providers Care Precision Grinder Name Role Phone Liset Mitchell MD Primary Care Provider [phone] Reason for Visit * Reason Onset Date Comments Appointment Request 06/27/2024 Encounter Details Date Type Department Care Team ([facility] st Contact Info) Description 06/27/2024 Telephone [facility] CHC MED & PEDS [address] [place], [place] [phone] Liset Mitchell MD 505 [place] [address] Appointment Request Social History Tobacco Use Types [...] * Telephone Encounter - Mali Tyler - 06/30/2024 8:22 AM EDT Tc from pt requesting an appointment for today with pcp stating her blood pressure went up again at1am and it's not normal. * Telephone Encounter - Kathrine Arnett RN - 06/27/2024 3:02 PM EDT TC from patient. Used interpreter to talk with patient. Patient very upset, but would not tell the motor vehicle parts interpreter why. She was yelling during the conversation. She stated she needs an appointment bc she has been in the ER x2. She state she only wants an appointment with Dr. Chung. Explained to patient that earliest appointment with Dr. Chung is 07/07/24, offered earlier appointment with Dr. Clark 07/01/24. Patient started yelling at motor vehicle parts interpreter and RN. She demanded a sooner appointment. Explained everything to her again. She continued to yell and then said she will find another nurse who will give her an earlier appointment, and hung up. RN notified JEANIE Fraire. She attempted to contact patient via phone call and patient did not answer the call. documented in this encounter Plan of Treatment Upcoming Encounters Date Type Department Care Team (Late st Contact Info) Description 07/07/2024 1:15 PM EDT Office Visit [facility] MED & PEDS [address] [place] [address] Liset Mitchell MD 505 [place] [address] documented as of this encounter Visit Diagnoses Not on filedocumented in this encounter Additional Health Concerns Assessment Noted Time PHQ-9 Depression Total Score: 4 02/28/19 25 9:06 AM EST documented as of this encounter Care Teams Precision Grinder Relationship Specialty Start Date End Date Liset Mitchell MD [address] [place] [address] PCP - General Family Medicine 09/14/20 documented as of this encounter
--- OUTSIDE RECORDS SUMMARY | 2024-07-05 23:52 | XMS_ITS | Encounter Summary ---
Author Organization [employer] Address [address] [facility] 7t [place] [address] Care Team Providers Care Brass Bobbin Winder Name Role Phone Liset Mitchell MD Primary Care Provider [phone] Encounter Details Date Type Department Care Team ([facility] Contact Info) Description 01/30/2024 Orders Only [facility] 230 [place], [place] [phone] Provider, MD Anne Marie Social History Tobacco [...] 1:15 PM EDT Office Visit [facility] MED & PEDS 505 [place] [address] Liset Mitchell MD 505 [place] [address] documented as of this encounter Procedures Procedure [...] documented as of this encounter Care Teams Brass Bobbin Winder Relationship Specialty Start Date End Date Liset Mitchell MD 230 [place] [address] PCP - General Family Medicine 09/14/20 documented as of this encounter
--- OUTSIDE RECORDS SUMMARY | 2024-07-05 23:52 | XMS_ITS | Clinical Summary ---
Author Organization [employer] Address [address] [facility] 7[address] [place] [address] Care Team Providers Care Screw Machine Set Up Operator Tool Name Role Phone Liset Mitchell MD Primary Care Provider [phone] Allergies Active Allergy Reactions Criticality Noted Date [...] High 07/26/2022 Other reaction(s): Chest Pain Medications [facility] Artificial Tears 1-0.3 % solution INSTILL 1 DROP INTO BOTH EYES FOUR TIMES DAILY Active latanoprost (Xalatan) 0.005 % ophthalmic solution Administer 1 drop into both eyes at bedtime. Active ipratropium-alb uterol (Duo-Neb) 0.5-2.5 mg/3 mL nebulizer solution INHALE 1 VIAL VIA NEB EVERY 6 HOURS NEEDED FOR WHEEZING Active FreeStyle lancets USE 4 TIMES A DAY BEFORE MEALS AND NIGHTLY Active albuterol (Ventolin HFA) 108 (90 Base) MCG/ACT inhaler 018 Active aspirin 81 MG chewable tablet Chew 1 tablet at bed time. Active cyanocobalamin (Vitamin B-12) 1000 MCG tablet Take 1,000 mcg by mouth in the morning. Active lidocaine (Lidoderm) 5 % patchIndication s:Lumbar back pain Apply 1 patch topically in the morning. Remove & discard patch within 12 hours or as directed by MD. 90 patch 1 023 Active magnesium 30 MG tablet Take 30 mg by mouth 2 times daily. Active nitroglycerin (Nitrostat) 0.4 MG SL tablet [...] lidocaine (Xylocaine) 2 % solution 023 Active ketotifen (Zaditor) 0.025 % ophthalmic solution ADMINISTER 1 DROP INTO BOTH EYES 2 TIMES DAILY. 10 mL 023 Active Continuous Blood Gluc Lime Supervisor (Lithium TechnologiesStyle Aristides reader) deviceIndicatio ns:Type 2 diabetes mellitus with other circulatory complication, without long-term current use of insulin ([facility]) Inject under the skin before breakfast, before lunch, before evening meal, and at bedtime. 1 each 023 Active Myrbetriq 25 MG 24 hr tabletIndicatio ns:Unspecified urinary incontinence TAKE 1 TABLET BY MOUTH EVERY DAY IN THE MORNING 30 tablet 2 023 Active azelastine (Optivar) 0.05 % ophthalmic solution 024 Active budesonide (Pulmicort) 0.5 MG/2ML nebulizer solution REALIZAR 1 TERAPIA RESPIRATORIA DOS VECEAS AL FREDDIE Active loratadine (Claritin) 10 MG tabletIndicatio ns:Seasonal Allergic Rhinitis Take by mouth. Activ e baclofen (Lioresal) 10 MG tabletIndicatio ns:Musculoskele symone pain Take one tablet TID PRN 30 tablet 09/16/2 024 Active Humidifier miscIndications :Congestion of paranasal sinus [...] mg by mouth in the morning. Active alirocumab (Praluent) 75 MG/ML injection Inject [...] complication, without long-term current use of insulin ([facility]) 1 Units before breakfast, before lunch, before evening meal, and at bedtime. 2 each Active psyllium (Metamucil Smooth Texture) 58.6 % powderIndicatio ns:Constipation , unspecified constipation type Take 5.12 g (3 g of fiber) by mouth Once per day. Mix in 8 oz of water. 283 g 2025 Active rosuvastatin (Crestor) 40 MG tablet Take 1 tablet (40 mg) by mouth in the morning. 90 tablet 1 Active sertraline (Zoloft) 50 MG tabletIndicatio ns:Anxiety Take 1 tablet (50 mg) by mouth Once per day. 90 tablet 1 025 Active spironolactone (Aldactone) 25 MG tabletIndicatio ns:Hypertension , unspecified type Take 1 tablet (25 mg) by mouth in the morning. 90 tablet 1 Active Diclofenac Sodium 1 % gelIndications: Musculoskeletal pain APPLY 2 GRAMS TOPICALLY EVERY 6 HOURS 200 g 3 Active Insulin Glargine-yfgn 100 UNIT/ML solution pen-injector INJECT 20 UNITS UNDER THE SKIN NIGHTLY AT BEDTIME. Active lubiprostone (Amitiza) 8 MCG capsule Take 1 capsule by mouth 2 times daily. Active sucralfate (Carafate) 1 GM/10ML suspensionIndic ations:Gastroes ophageal reflux disease, unspecified whether esophagitis present TAKE 10 ML BY MOUTH EVERY 8 HOURS 1000 mL 3 Active polyethylene glycol, PEG, 3350 (MiraLax) 17 GM/SCOOP powderIndicatio ns:Constipation , unspecified constipation type TAKE 17 G BY MOUTH EVERY MORNING 527 g 3 025 Active simethicone (Gas Relief Extra Strength) 125 MG chewable tablet TAKE 1 TABLET BY MOUTH NEEDED AFTER MEALS AND AT BEDTIME FOR GAS 360 tablet 1 025 Active omeprazole (PriLOSEC) [address] capsule TAKE 1 CAPSULE BY MOUTH BEFORE BREAKFAST. 90 capsule 1 025 Active melatonin 10 MG tabletIndicatio ns:Insomnia, unspecified type TAKE 1 TABLET BY MOUTH AT BEDTIME NEEDED FOR INSOMNIA 90 tablet 1 025 Active linaCLOtide (Linzess) 145 MCG capsule TAKE 1 CAPSULE BY MOUTH BEFORE BREAKFAST. 30 capsule 11 Active fluticasone (Flonase) 50 MCG/ACT nasal sprayIndication s:Rhinosinusiti s SPRAY 2 SPRAYS INTO EACH NOSTRIL TWICE A DAY 16 g 5 Active sennosides (Senokot) 8.6 MG tablet take 1 Tablet by oral route 2 times every day 2024 Discontinued(M ed list cleanup (will not trigger notification to Pharmacy)) Lantus SoloStar 100 UNIT/ML pen 26 Units. 023 2024 Discontinued(M ed list cleanup (will not trigger notification to Pharmacy)) hydrOXYzine pamoate (Vistaril) 25 MG capsule Take 25 mg by mouth 3 times daily. 022 2024 Discontinued(M ed list cleanup (will not trigger notification to Pharmacy)) fluticasone (Flonase) 50 MCG/ACT nasal sprayIndication s:Rhinosinusiti s Administer 2 sprays into each nostril 2 times daily. 16 g 5 023 2024 Discontinued(R eorder (will not trigger notification to Pharmacy)) melatonin 10 MG tabletIndicatio ns:Insomnia, unspecified type Take 1 tablet (10 mg) by mouth if needed at bedtime (insomnia). 90 tablet 1 023 2024 Discontinued(R eorder (will not trigger notification to Pharmacy)) polyethylene glycol, PEG, 3350 (MiraLax) 17 GM/SCOOP powderIndicatio ns:Constipation , unspecified constipation type Take 17 g by mouth in the morning. 527 g 2 023 2024 Discontinued(R eorder (will not trigger notification to Pharmacy)) omeprazole (PriLOSEC) [address] capsule Take 1 capsule (20 mg) by mouth before breakfast. Do not crush or chew. 90 capsule 1 023 2024 Discontinued(R eorder (will not trigger notification to Pharmacy)) linaCLOtide (Linzess) 145 MCG capsule Take 1 capsule (145 mcg) by mouth before breakfast. Do not crush or chew. 30 capsule 023 2024 Discontinued(R eorder (will not trigger notification to Pharmacy)) Continuous Blood Gluc Sensor (FreeStyle Aristides 2 Sensor) miscIndications :Type 2 diabetes mellitus with other circulatory complication, without long-term current use of insulin ([facility]) 1 Units before breakfast, before lunch, before evening meal, and at bedtime. 2 each 023 2024 Discontinued(R eorder (will not trigger notification to Pharmacy)) simethicone (Gas Relief Extra Strength) 125 MG chewable tablet TAKE 1 TABLET BY MOUTH NEEDED AFTER MEALS AND AT BEDTIME FOR GAS 360 tablet 1 2024 Discontinued(R eorder (will not trigger notification to Pharmacy)) sucralfate (Carafate) 1 GM/10ML suspensionIndic ations:Gastroes ophageal reflux disease, unspecified whether esophagitis present Take 10 mL (1 g) by mouth every 8 (eight) hours. 1000 mL 3 024 2024 Discontinued(R eorder (will not trigger notification to Pharmacy)) aluminum-magnes ium hydroxide-simet hicone (Maalox MAX) 400-400-40 MG/5ML suspension Take 20 mL by mouth if needed for indigestion or heartburn. 355 mL 11 024 2024 Discontinued(R eorder (will not trigger notification to Pharmacy)) nystatin (Mycostatin) 295573 UNIT/ML suspension TAKE 1ML BY MOUTH 4 TIMES DAILY FOR 7 DAYS. (THRUSH IN MOUTH). SWISH AND SPIT (DO NOT SWALLOW) 28 mL 024 2024 Discontinued(T herapy completed) hydrOXYzine pamoate (Vistaril) 50 MG capsule Take 1 capsule (50 mg) by mouth 1 (one) time for 1 dose. 5 capsule 2024 Discontinued(M ed list cleanup (will not trigger notification to Pharmacy)) hyoscyamine (Levsin/SL) 0.125 MG SL tablet Take 1 tablet (0.125 mg) by mouth every 6 (six) hours if needed for cramping for up to 10 days. 30 tablet 2024 Discontinued(M ed list cleanup (will not trigger notification to Pharmacy)) Diclofenac Sodium 1 % gelIndications: Musculoskeletal pain Apply 2 g topically every 6 (six) hours. 200 g 3 024 2024 Discontinued(R eorder (will not trigger notification to Pharmacy)) sertraline (Zoloft) 50 MG tabletIndicatio ns:Anxiety TAKE 1 TABLET BY MOUTH EVERY DAY 90 tablet 1 11/25/2024 Discontinued(R eorder (will not trigger notification to [...] each by Other route in the morning. 2024 Discontinued(R eorder (will not trigger notification to Pharmacy)) metroNIDAZOLE (Flagyl) 500 MG tablet Take 1 tablet (500 mg) by mouth 2 times daily for 7 days. 14 tablet 025 2024 fluconazole (Diflucan) 150 MG tablet Take 1 tab today and next after 5 days 2 tablet 025 2024 Discontinued(M ed list cleanup (will not trigger notification to Pharmacy)) Active Problems Problem Noted Date Diagnosed Date [...] pain 08/17/2023 COVID-19 08/17/2023 Essential hypertension 01/12/2023 Fibromyalgia 10/25/2022 Gas bloat syndrome 10/25/2022 Right [...] if negative side effects begin. F/u with [facility] for review of heart medication. 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 Assessment [...] Encounters Date Type Department Care Team Description 07/04/2024 Telephone [facility] [address] [place] [phone] Liset Mitchell MD Medication Question 07/02/2024 Refill [facility] [address] [place] [address] Liset Mitchell MD Gastroesophageal reflux disease, unspecified whether esophagitis present; Constipation, unspecified constipation type; Insomnia, unspecified type; Rhinosinusitis 07/02/2024 Telephone [facility] [address] [place] [address] Liset Mitchell MD 06/30/2024 Telephone [facility] [address] [place] [address] Liset Mitchell MD 06/27/2024 Telephone [facility] [address] [place] [address] Liset Mitchell MD Appointment Request 06/27/2024 Orders Only [facility] [address] [place] [address] Anne Marie Schwartz MD 06/26/2024 Orders Only GENERIC EXTERNAL DATA DEPARTMENT Provider, [facility] External Data 06/26/2024 Telephone [facility] [address] [place] [address] Liset Mitchell MD 06/26/2024 Telephone [facility] [address] [place] [phone] Liset Mitchell MD Nurse Triage 06/25/2024 Telephone [facility] [address] [place] [address] Liset Mitchell MD med reconciliation 06/24/2024 Refill [facility] [address] [place] [phone] Liset Mitchell MD Musculoskeletal pain 06/23/2024 Refill [facility] [address] [place] [address] Liset Mitchell MD Type 2 diabetes mellitus with other circulatory complication, without long-term current use of insulin ([facility]); Constipation, unspecified constipation type; Anxiety; Hypertension, unspecified type 06/23/2024 Telephone [facility] [address] [place] [phone] Liset Mitchell MD Med Refill 06/23/2024 Refill [facility] [address] [place] [address] Liset Mitchell MD 06/19/2024 Telephone [facility] [address] [place] [phone] Liset Mitchell MD Medication Question 05/30/2024 1:00 PM EDT Office Visit [facility] [address] [place] [address] Stephani Liu MD Acute vaginitis (Primary Dx); Type 2 diabetes mellitus with microalbuminuria, with long-term current use of insulin ([facility]) 05/30/2024 Orders Only [facility] [address] [place] [phone] Eli Rodriguez NP 05/30/2024 Travel 05/29/2024 Telephone [facility] [address] [place] [phone] Liset Mitchell MD Nurse Triage 05/21/2024 Telephone [facility] [address] [place] [address] Liset Mitchell MD Nurse Triage from Last [...] 05/30/2024 1:21 PM EDT Plan of Treatment Upcoming Encounters Date Type Department Care Team (Late st Contact Info) Description 07/07/2024 1:15 PM EDT Office Visit [facility] [address] [place], [place] [phone] Liset Mitchell MD [address] [place] [address] Health Maintenance Due Date Last Done Comments [...] 02/29/2024, 02/28/19 25 SDOH Screening 02/28/2025 02/29/2024 Tobacco Screening 05/30/2025 [...] Procedure Name Priority Date/Time Associated Diagnosis Comments MAGNESIUM Routine 06/26/2024 12:41 PM EDT COMPREHENSIVE METABOLIC PANEL Routine 06/26/2024 12:41 PM EDT CBC WITH AUTO DIFFERENTIAL Routine 06/26/2024 12:41 PM EDT ECG 12-LEAD Routine 06/25/2024 10:14 AM EDT POCT URINALYSIS DIPSTICK Routine 05/30/2024 1:47 PM EDT Acute vaginitis POCT GLYCATED HEMOGLOBIN, TOTAL Routine 05/30/2024 1:30 PM EDT Type 2 diabetes mellitus with microalbuminuria, with long-term current use of insulin ([facility]) BACTERIAL VAGINOSIS PANEL Routine 05/30/2024 1:30 PM EDT Acute vaginitis POCT GLUCOSE Routine 05/30/2024 1:29 PM EDT Type 2 diabetes mellitus with microalbuminuria, with long-term current use of insulin ([facility]) LIPID PANEL, STANDARD Routine 10/10/2023 2:01 PM EDT from Last 3 Months or Most Recently Relevant to Health Maintenance Results * CBC auto differential (06/26/2024 12:41 PM EDT) White Blood Count 5.6 4.8 - 10.8 X10*3/uL [facility] Red Blood Count 4.78 4.20 - 5.50 X10*6/uL [facility] Hemoglobin 14.8 12.0 - 16.0 g/dl [facility] Hematocrit 42.7 37.0 - 47.0 % [facility] Mean Corpuscular Volume 89.3 80.0 - 98.0 fL [facility] Mean Corpuscular Hemoglobin 31.0 27.0 - 33.0 pg [facility] Mean Corpuscular HGB Conc 34.7 31.0 - 35.0 g/dl [facility] Red Cell Distribution Width 12.9 11.0 - 16.0 % [facility] Platelet Count 173 160 - 400 X10*3/uL [facility] Mean Platelet Volume 10.6 9.4 - 12.3 fL [facility] Neutrophils Percent Auto 62.5 45 - 73 % [facility] Imm Gran Pct Auto 0.4 0.0 - 0.4 % [facility] Lymphocytes Percent Auto 29.0 20 - 40 % [facility] Monocytes Percent Auto 6.2 2 - 11 % [facility] Eosinophils Percent Auto 1.2 0 - 4 % [facility] Basophils Percent Auto 0.7 0 - 2 % [facility] NRBC Pct Auto 0.0 0.0 - 0.2 /100WBC [facility] Neutrophils Absolute Auto 3.5 2.0 - 8.3 x10*3/uL [facility] Imm Gran Abs Auto 0.02 0.00 - 0.03 X10*3/uL [facility] Lymphocytes Absolute Auto 1.6 1.2 - 4.9 X10*3/uL [facility] Monocytes Absolute Auto 0.4 0.1 - 1.2 X10*3/uL [facility] Eosinophils Absolute Auto 0.1 0.0 - 0.4 X10*3/uL [facility] Basophils Absolute Auto 0.0 0.0 - 0.2 X10*3/uL [facility] NRBC Abs Auto 0.000 0.0 - 0.012 X10*3/uL [facility] 06/26/2024 12:4 1 PM EDT 06/26/2024 12:51 PM EDT Generic External Data Provider LAB BLOOD ORDERAB LES Final Result Performing Organization Address [facility]/ZIP Co de Phone Number [facility] [address] [place] [phone] * Magnesium (06/26/2024 12:41 PM EDT) Pathologist [facility] Magnesium 2.0 1.6 - 2.6 mg/dL [facility] 06/26/2024 12:4 1 PM EDT 06/26/2024 12:51 PM EDT Generic External Data Provider LAB BLOOD ORDERAB LES Final Result Performing Organization Address [facility]/ZIP Co de Phone Number [facility] [address] [place] [phone] * (ABNORMAL) Comprehensive Metabolic Panel (06/26/2024 12:41 PM EDT) Sodium 142 135 - 145 mmol/L [facility] Potassium 4.2 3.3 - 5.1 mmol/L [facility] Chloride 105 96 - 108 mmol/L [facility] Carbon Dioxide 27 22 - 29 mmol/L [facility] Anion Gap 14 12 - 20 [facility] Urea Nitrogen (BUN) 20(H) 9 - 16 mg/dL [facility] Creatinine, Serum 0.78 0.5 - 1.4 mg/dL [facility] Creatinine Clr Calc Pharmacy 43.9 [facility] Comment:Provided height and weight: 142.24 cm,62.596 kg.eGFR (calculated from the MDRD study equation) and eCrCl(calculated from the Cockcroft-Gault equation) are based ondifferent parameters and may not yield comparable results.If eCrCl result is absurd, please check patient'sheight/weight. Estimated Glomerular Filt Rate >60 [facility] Comment:Chronic Kidney Disea se: Estimated GFR < 60 mL/min/1.53q0Mfrjbw Kidney Disease: Estimated GFR < 15 mL/min/1.73m2 Glucose 128(H) 60 - 115 mg/dL [facility] Calcium 9.8 8.4 - 10.2 mg/dL [facility] Bilirubin, Total 0.6 0.0 - 1.0 mg/dL [facility] Aspartate Amino Transferase 31 5 - 31 U/L [facility] Alanine Aminotransferase 29 0 - 31 U/L [facility] Total Protein 7.1 6.5 - 8.0 g/dL [facility] Albumin Level 4.2 3.5 - 5.0 g/dL [facility] Alkaline Phosphatase 47 39 - 117 U/L [facility] 06/26/2024 12:4 1 PM EDT 06/26/2024 12:51 PM EDT us Generic External Data Provider LAB BLOOD ORDERAB LES Final Result [facility] [address] [place] [phone] * ECG 12 lead (06/25/2024 10:14 AM EDT) us Historical Provider ECG ORDERABLES Final Res ult * POCT Urinalysis (05/30/2024 1:47 PM EDT) [...] DETECTION BY PCR NOT DETECTED Not Detect [facility] BACTERIAL VAGINOSIS DETECTION BY PCR NEGATIVE Negative [facility] Comment:The BV organism targ ets [...] DETECTION BY PCR NOT DETECTED Not Detect [facility] Mae glab krusei PCR NOT DETECTED Not Detect [facility] Swab Vaginal structure / Unknown 05/30/2024 1:30 PM EDT 05/30/2024 5:34 PM EDT Stephani Liu MD LAB MICROBIOLOGY - GENERAL ORDER IBAN Final Result [facility] [address] [place] [address] [phone] * (ABNORMAL) POCT HGB A1C (05/30/2024 [...] 2:01 PM EDT) Triglycerides 158(H) <150 mg/dL [facility] Comment:Desirable Triglyceri de: less than 150 mg/dLBorderline High Triglyceride 150-199 mg/dLHigh Triglyceride: 200-499 mg/dLVery High Triglyceride: greater than or equal to 5OO mg/dL Cholesterol 233(H) <200 mg/dL [facility] Comment:Desirable Cholestero l: less than 200 mg/dLBorderline High Cholesterol: 200-239 mg/dLHigh Cholesterol: greater than 239 mg/dL LDL Cholesterol Calculated 148(H) <100 mg/dL [facility] Comment:Desirable LDL: less than 100 mg/dLNear Optimal/Above Optimal LDL: 110- 129 mg/dLBorderline High LDL: 130-159 mg/dLHigh LDL: 160-189 mg/dLVery High LDL: greater than or equal to 190 mg/dL HDL Cholesterol 54 >40 mg/dL [facility] Comment:Desirable HDL: great er than 40 mg/dL Note: This HDL assay may give artificially low results in patients with liver disease. 10/10/2023 2:01 PM EDT 10/10/2023 2:01 PM EDT us Generic External Data Provider LAB BLOOD ORDERAB LES Final Result [facility] [address] [place] [phone] from Last 3 Months or Most Recently Relevant to Health Maintenance Insurance [id number] [facility] (HMO D-SNP) [place] [id number] Care Teams Screw Machine Set Up Operator Tool Relationship Specialty Start Date End Date Liset Mitchell MD [address] [place] [phone] PCP - General Family Medicine 09/14/20
--- OUTSIDE RECORDS SUMMARY | 2024-07-05 23:52 | XMS_ITS | Encounter Summary ---
Author Organization [employer] Address [address] [facility] [address] [place] [address] Care Team Providers Care Manager [employer] Name Role Phone Liset Mitchell MD Primary Care Provider [phone] Reason for Visit * Reason Onset Date Comments ER Follow-up 01/29/2024 Encounter Details Date Type Department Care Team ([facility] Contact Info) Description 01/29/2024 Telephone [facility] [address] [place], [place] [phone] Liset Mitchell MD [address] [place] [address] ER Follow-up Social History Tobacco Use Types [...] AM EST Triage call to Pt [place] [facility] [place] [id number]. Pt was seen in [facility] 01/28/24 for High BP. (reportis on [...] marianne seen today. ASK apt in [facility] at 140pm today. Pt agrees with [...] ED visit on : Date: 01/28/24 Hospital: [facility] Seen for: High blood pressure Symptomatic No *if yes message should go to Triage Patient advised will forward to team nurse for follow up documented in this encounter Plan of Treatment Upcoming Encounters Date Type Department Care Team (Late st Contact Info) Description 07/07/2024 1:15 PM EDT Office Visit [facility] [address] [place] [address] Liset Mitchell MD [address] [place] [address] documented as of this encounter Visit Diagnoses Not on filedocumented in this encounter Additional Health Concerns Assessment Noted Time PHQ-9 Depression Total Score: 0 04/13/19 23 10:04 AM EST documented as of this encounter Care Teams Manager [employer] Relationship Specialty Start Date End Date Liset Mitchell MD [address] [place] [address] PCP - General Family Medicine 09/14/20 documented as of this encounter
--- OUTSIDE RECORDS SUMMARY | 2024-07-05 23:52 | XMS_ITS | Encounter Summary ---
Author Organization [employer] Address [address] [facility] [address] [place] [address] Care Team Providers Care Paperhanger And Painter Name Role Phone Liset Mitchell MD Primary Care Provider [phone] Reason for Visit * Reason Onset Date Comments Med Refill 07/02/2024 Encounter Details Date Type Department Care Team ([facility] st Contact Info) Description 07/02/2024 Refill [facility] [address] [place] [address] Liset Mitchell MD [address] [place], [place] [phone] Gastroesophageal reflux disease, unspecified whether esophagitis present; Constipation, unspecified constipation type; Insomnia, unspecified type; Rhinosinusitis Social History Tobacco Use Types Packs/Day Years [...] Telephone Encounter - Ginny Rueda LPN - 07/02/2024 11:22 AM EDT Does PCP prescribe Actos 45? Medication not pended. Last seen 05/30/24. * Telephone Encounter - Ion Curran - 07/02/2024 10:50 AM EDT TC from pt requesting medication refill. Medications needing refill : sucralfate (Carafate) 1 GM/10ML suspension spironolactone (Aldactone) 25 MG tablet simethicone (Gas Relief Extra Strength) 125 MG chewable tablet polyethylene glycol, PEG, 3350 (MiraLax) 17 GM/SCOOP powder omeprazole (PriLOSEC) [address] capsule pioglitazone (Actos) 45 MG tablet melatonin 10 MG tablet linaCLOtide (Linzess) 145 MCG capsule fluticasone (Flonase) 50 MCG/ACT nasal spray To be sent to: [facility] documented in this encounter Plan of Treatment Upcoming Encounters Date Type Department Care Team (Late st Contact Info) Description 07/07/2024 1:15 PM EDT Office Visit [facility] [address] [place] [address] Liset Mitchell MD [address] [place] [address] documented as of this encounter Visit Diagnoses Diagnosis Gastroesophageal reflux disease, unspecified whether esophagitis present Constipation, unspecified constipation type Insomnia, unspecified type Rhinosinusitis documented in this encounter Additional Health Concerns Assessment Noted Time PHQ-9 Depression Total Score: 4 02/28/19 25 9:06 AM EST documented as of this encounter Care Teams Paperhanger And Painter Relationship Specialty Start Date End Date Liset Mitchell MD [address] [place] [phone] PCP - General Family Medicine 09/14/20 documented as of this encounter
--- OUTSIDE RECORDS SUMMARY | 2024-07-05 23:52 | XMS_ITS | Encounter Summary ---
Author Organization [employer] Address [address] [facility] [address] [place] [address] Care Team Providers Care Women'S Ministry Director Name Role Phone Liset Mitchell MD Primary Care Provider [phone] Reason for Visit * Reason Onset Date Comments Prior Authorization 05/24/2022 Encounter Details Date Type Department Care Team ([facility] st Contact Info) Description 05/24/2022 Telephone [facility]S [address] [place], [place] [phone] Liset Mitchell MD 505 [place] [address] Prior Authorization Social History Tobacco Use Types [...] - 05/24/2022 10:47 AM EDT Tc from [facility] with [facility] requesting a PA for medication linaCLOtide (Linzess) 290 MCG capsule . documented in this encounter Plan of Treatment Upcoming Encounters Date Type Department Care Team ([facility] st Contact Info) Description 07/07/2024 1:15 PM EDT Office Visit [facility] MED & PEDS [address] [place] [address] Liset Mitchell MD [address] [place] [address] documented as of this encounter Visit Diagnoses Not on filedocumented in this encounter Additional Health Concerns Assessment Noted Time PHQ-9 Depression Total Score: 0 04/13/19 23 10:04 AM EST documented as of this encounter Care Teams Women'S Ministry Director Relationship Specialty Start Date End Date Liset Mitchell MD [address] [place] [address] PCP - General Family Medicine 09/14/20 documented as of this encounter
--- OUTSIDE RECORDS SUMMARY | 2024-07-05 23:52 | XMS_ITS | Encounter Summary ---
Author Organization [employer] Address [address] [facility] 7t [place] [address] Care Team Providers Care Bed Rubber Name Role Phone Liset Mitchell MD Primary Care Provider [phone] Reason for Visit * Reason Comments Med Refill Encounter Details Date Type Department Care Team ([facility] Contact Info) Description 04/13/2022 Refill [facility] MEDICINE [address] [place] [address] Liset Mitchell MD 505 [place], [place] [phone] Social History Tobacco Use Types Packs/Day Years [...] Upcoming Encounters Date Type Department Care Team ([facility] Contact Info) Description 07/07/2024 1:15 PM EDT Office Visit [facility] MED & PEDS [address] [place] [address] Liset Mitchell MD [address] [place] [address] documented as of this encounter Visit Diagnoses Not on filedocumented in this encounter Additional Health Concerns Assessment Noted Time PHQ-9 Depression Total Score: 0 04/13/19 23 10:04 AM EST documented as of this encounter Care Teams Bed Rubber Relationship Specialty Start Date End Date Liset Mitchell MD [address] [place] [address] PCP - General Family Medicine 09/14/20 documented as of this encounter
--- OUTSIDE RECORDS SUMMARY | 2024-07-05 23:53 | XMS_ITS | Encounter Summary ---
Author Organization [employer] Address [address] [facility] [facility] [address] 7[address] [place] [address] Care Team Providers Care Creative Services Intern Name Role Phone Liset Mitchell MD Primary Care Provider [phone] Reason for Visit * Reason Onset Date Comments Results 10/11/2023 Appointment Request 10/11/2023 Encounter Details Date Type Department Care Team ([facility] Contact Info) Description 10/11/2023 Telephone [facility] MEDICINE [address] [place] [address] Liset Mitchell MD 505 [place] [address] Results; Appointment Request Social History Tobacco Use [...] a appt in regards to getting a 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 SHIFT SUPERVISOR states is in need documented in this encounter Plan of Treatment Upcoming Encounters Date Type Department Care Team (Late st Contact Info) Description 07/07/2024 1:15 PM EDT Office Visit [facility] MED & PEDS [address] [place] [address] Liset Mitchell MD [address] [place] [address] documented as of this encounter Visit Diagnoses Not on filedocumented in this encounter Additional Health Concerns Assessment Noted Time PHQ-9 Depression Total Score: 0 04/13/19 23 10:04 AM EST documented as of this encounter Care Teams Creative Services Intern Relationship Specialty Start Date End Date Liset Mitchell MD [address] [place] [address] PCP - General Family Medicine 09/14/20 documented as of this encounter
--- OUTSIDE RECORDS SUMMARY | 2024-07-05 23:53 | XMS_ITS | Encounter Summary ---
Author Organization [employer] Address [address] [facility] [address] [place] [address] Care Team Providers Care Baseball Player Name Role Phone Liset Mitchell MD Primary Care Provider [phone] Reason for Visit * Reason Comments Med Change Request Encounter Details Date Type Department Care Team (Late Contact Info) Description 10/02/2022 Refill [facility] MED & PEDS [address] [place], [place] [phone] Carla Cheng MD [address] [place] [address] Social History Tobacco Use Types Packs/Day Years [...] Upcoming Encounters Date Type Department Care Team ([facility] Contact Info) Description 07/07/2024 1:15 PM EDT Office Visit [facility] MED & PEDS [address] [place], [place] [phone] Liset Mitchell MD 505 [place] [address] documented as of this encounter Visit Diagnoses Not on filedocumented in this encounter Additional Health Concerns Assessment Noted Time PHQ-9 Depression Total Score: 0 04/13/19 23 10:04 AM EST documented as of this encounter Care Teams Baseball Player Relationship Specialty Start Date End Date Liset Mitchell MD [address] [place] [address] PCP - General Family Medicine 09/14/20 documented as of this encounter
--- OUTSIDE RECORDS SUMMARY | 2024-07-05 23:53 | XMS_ITS | Clinical Summary ---
Author Organization [facility] Address [address] [place] [address] Phone Care Team Providers Care Waterproof Bag Sewer Name Role Phone Liset Mitchell MD Primary Care Provider [phone] Allergies Active Allergy Reactions Criticality Noted Date [...] EDT - 06/26/2024 5:09 AM EDT [facility] Emergency [address] [place] [address] Lucho Chappell MD Primary hypertension (Primary Dx); Acute nonintractable headache, unspecified headache type Discharge Disposition: Home or Self Care from Last 3 Months Medical History Medical History Date Comments Hypertension 07/24/2018 DX:Hypertension Asthma-COPD overlap syndrome ([facility] V24, [facility] V28) 05/24/2018 DX:Asthma-COPD overlap syndr ome (HCC) Hiatal hernia 05/24/2018 DX:Hiatal hernia Pulmonary nodule 05/24/2018 DX:Pulmonary no dule Hyperlipidemia 07/24/2018 DX:Hyperlipidemi a Anxiety and depression 07/24/2018 DX:Anxiet y and depression Constipation 07/24/2018 DX:Constipation Vitamin B 12 deficiency 07/24/2018 DX:Vitam in B 12 deficiency Allergic rhinitis 07/24/2018 DX:Allergic rh initis Congestive heart failure ([facility] V24, [facility] V28) 07/24/2018 DX:Congestive heart failure (HCC) Recurrent herpes labialis 07/24/2018 DX:Rec urrent herpes labialis 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 History of colon polyps 07/24/2018 DX:Histo ry of colon polyps ROXIE (obstructive sleep apnea) 07/24/2018 DX :ROXIE (obstructive sleep apnea) Type 2 diabetes mellitus wit hout complication ([facility] V24, [facility] V28) 07/24/2018 DX:Type 2 diabetes mellitus without complication ([facility]) HTN (hypertension) DX:HTN (hyper tension) GERD (gastroesophageal reflux disease) DX:GERD (gastroesophageal reflux disease) Depression DX:Depression 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 ([facility] V24, [facility] V28) DX:Insulin depende nt type 2 diabetes mellitus ([facility]) Social History Tobacco Use Types Packs/Day Years [...] AND CULTURE STAT 06/26/2024 12:09 AM EDT CULTURE URINE STAT 06/26/2024 12:09 AM EDT RESPIRATORY VIRUS [...] microscopic and culture (06/26/2024 12:09 AM EDT) Pathologist [facility] Specific [place] Urine 1.008 1.003 - 1.030 LAB URINALYSIS [...] - AUTOMATED METHOD 06/26/2024 12:34 AM EDT [facility] RBC, Urine 0.9 0 - 4 /HPF LAB URINALYSIS - AUTOMATED METHOD 06/26/2024 12:34 AM [facility] WBC, Urine 7.4(H) 0 - 4 /HPF LAB URINALYSIS - AUTOMATED METHOD 06/26/2024 12:34 AM EDT [facility] Squamous Epithelial, Urine 90(H) 0 - 60 /LPF LAB URINALYSIS - AUTOMATED METHOD 06/26/2024 12:34 AM [facility] Bacteria, Urine Negative Negative /HPF LAB URINALYSIS - AUTOMATED METHOD 06/26/2024 12:34 AM [facility] Hyaline Casts, Urine 0.0 0 - 3 /LPF LAB URINALYSIS - AUTOMATED METHOD 06/26/2024 12:34 AM [facility] Urine Urine specimen obtained by clean catch procedure / Unknown Non-blood Collection / Unknown 06/26/2024 12:09 AM EDT 06/26/2024 12:26 AM EDT us Lucho Chappell MD LAB URINE ORDERABLES Final Resu lt [facility] [address] [place] [address], * Gil urine culture tube (06/26/2024 12:09 AM EDT) Extra Tube Hold for add-ons. 06/26/2024 2:01 AM EDT [facility] Comment:Auto resulted. Urine Urine specimen obtained by clean catch procedure / Unknown Non-blood Collection / Unknown 06/26/2024 12:09 AM EDT 06/26/2024 12:26 AM EDT us Lucho Chappell MD LAB URINE ORDERABLES Final Resu lt Performing Organization Address City/[facility]/ZIP Co de Phone Number [facility] [address] [place] [address], [place] [phone] * Culture urine (06/26/2024 12:09 AM EDT) [facility] Culture, Urine 50,000-99,000 CFU/mL Mixed bacterial morphotypes present suggestive of possible contamination during collection. Suggest appropriate recollection if clinically indicated. 06/27/2024 8:06 AM EDT [facility] Urine Urine specimen obtained by clean catch procedure / Unknown Non-blood Collection / Unknown 06/26/2024 12:09 AM EDT 06/26/2024 12:34 AM EDT us Lucho Chappell MD LAB MICROBIOLOGY - GENERAL ORDE RABLES Final Result Performing Organization Address [facility]/ZIP Co de Phone Number [facility] [address] [place] [address], [place] [phone] * Respiratory virus panel molecular study (06/26/2024 12:07 AM EDT) [facility] Adenovirus Detection by PCR Not Detected Not Detected LAB MICROBIOLOGY METHOD 06/26/2024 1:21 AM EDT [facility] Influenza A PCR Not Detected Not Detected LAB MICROBIOLOGY METHOD 06/26/2024 1:21 AM EDT [facility] Influenza B PCR Not Detected Not Detected LAB MICROBIOLOGY METHOD 06/26/2024 1:21 AM EDT [facility] Coronavirus 229E Not Detected Not Detected LAB MICROBIOLOGY METHOD 06/26/2024 1:21 AM EDT [facility] Coronavirus HKU1 Not Detected Not Detected LAB MICROBIOLOGY METHOD 06/26/2024 1:21 AM EDT [facility] Coronavirus OC43 Not Detected Not Detected LAB MICROBIOLOGY METHOD 06/26/2024 1:21 AM EDT [facility] Coronavirus NL63 Not Detected Not Detected LAB MICROBIOLOGY METHOD 06/26/2024 1:21 AM EDT [facility] Parainfluenza Virus 1 Not Detected Not Detected LAB MICROBIOLOGY METHOD 06/26/2024 1:21 AM EDT [facility] Parainfluenza Virus 2 Not Detected Not Detected LAB MICROBIOLOGY METHOD 06/26/2024 1:21 AM EDT [facility] Parainfluenza Virus 3 Not Detected Not Detected LAB MICROBIOLOGY METHOD 06/26/2024 1:21 AM EDT [facility] Parainfluenza Virus 4 Not Detected Not Detected LAB MICROBIOLOGY METHOD 06/26/2024 1:21 AM EDT [facility] RSV PCR Not Detected Not Detected LAB MICROBIOLOGY METHOD 06/26/2024 1:21 AM EDT [facility] Human Metapneumovirus A and B Not Detected Not Detected LAB MICROBIOLOGY METHOD 06/26/2024 1:21 AM EDT [facility] Rhinovirus/Entero virus Not Detected Not Detected LAB MICROBIOLOGY METHOD 06/26/2024 1:21 AM EDT [facility] Bordetella pertussis Not Detected Not Detected LAB MICROBIOLOGY METHOD 06/26/2024 1:21 AM EDT [facility] Bordetella parapertussis Not Detected Not Detected LAB MICROBIOLOGY METHOD 06/26/2024 1:21 AM EDT [facility] Mycoplasma pneumo by PCR Not Detected Not Detected LAB MICROBIOLOGY METHOD 06/26/2024 1:21 AM EDT [facility] Chlamydia pneumoniae Not Detected Not Detected LAB MICROBIOLOGY METHOD 06/26/2024 1:21 AM EDT [facility] SARS COV-2 Not Detected Not Detected LAB MICROBIOLOGY METHOD 06/26/2024 1:21 AM EDT [facility] Swab Both anterior nares / Unknown Non-blood Collection / Unknown 06/26/2024 12:07 AM EDT 06/26/2024 12:27 AM EDT [facility] - 06/26/2024 1:21 AM EDT Testing was performed using the [employer] Respiratory Pathogen PCR Assay. All results must [...] Lucho Chappell MD LAB MICROBIOLOGY - GENERAL ORDE RABLES Final Result Performing Organization Address [facility]/ZIP Co de Phone Number [facility] [address] [place] [address], * Troponin I High Sensitivity (06/26/2024 12:06 AM EDT) [facility] High Sensitivity Troponin I 17 <=54 ng/L LAB CHEMISTRY METHOD 06/26/2024 12:56 AM EDT [facility] Blood Venous blood specimen / Unknown Venipuncture / Unknown 06/26/2024 12:06 AM EDT 06/26/2024 12:26 AM EDT [facility] LAB - 06/26/2024 12:56 AM EDT High levels of biotin in samples may falsely decrease hsTroponin values. ??Use caution when interpreting hsTroponin results in patients taking biotin who exhibit renal impairment (eGFR <60) or in patients taking more than 20 mg/day of biotin. us Lucho Chappell MD LAB BLOOD ORDERABLES Final Resu lt [facility] [address] [place] [address], * Lactate (06/26/2024 12:06 AM EDT) Pathologist [facility] Lactate 0.8 0.4 - 2.0 mmol/L LAB CHEMISTRY METHOD 06/26/2024 12:56 AM EDT [facility] Blood Venous blood specimen / Unknown Venipuncture / Unknown 06/26/2024 12:06 AM EDT 06/26/2024 12:26 AM EDT Lucho Chappell MD LAB BLOOD ORDERABLES Final Resu lt Performing Organization Address [facility]/ZIP Co de Phone Number [facility] [address] [place] [address], [place] [phone] * ECG-Annotated (06/26/2024) Provider Onbase MD ECG ORDERABLES Final Result * ECG 12 lead (06/25/2024 6:39 PM EDT) Ventricular Rate ECG 56 BPM GEMUSE Atrial Rate 56 BPM GEMUSE P-R Interval 176 ms GEMUSE QRS Duration 86 ms GEMUSE Q-T Interval 428 ms GEMUSE QTc 413 ms GEMUSE P Wave Fountain 51 degrees GEMUSE R Fountain -36 degrees GEMUSE T Fountain -13 degrees GEMUSE ECG Interpretation Sinus bradycardia with occasional Premature ventricular complexes Left axis deviation Minimal voltage criteria for LVH, may be normal variant ( Gore product ) 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) Possible Anterior infarct , age undetermined Abnormal ECG When compared with ECG of 26-JAN-2024 03:46, Premature ventricular complexes are now Present Confirmed by JASWINDER MADDOX ([id number]) on 06/26/2024 4:37:19 PM GEMUSE 06/25/2024 6:39 PM EDT 06/26/2024 4:37 PM EDT us Lucho Chappell MD ECG ORDERABLES Final Result Performing Organization Address [facility]/ZIP Co de Phone Number GEMUSE * CBC auto differential (06/25/2024 6:34 PM EDT) WBC 6.5 4.8 - 10.8 K/[facility] LAB HEMETOLOGY METHOD 06/25/2024 6:51 PM EDT [facility] RBC 4.60 3.80 - 4.80 M/mcL LAB HEMETOLOGY METHOD 06/25/2024 6:51 PM EDT [facility] Hemoglobin 14.0 11.5 - 16.0 g/dL LAB HEMETOLOGY METHOD 06/25/2024 6:51 PM EDT [facility] Hematocrit 41.3 35.0 - 47.0 % LAB HEMETOLOGY METHOD 06/25/2024 6:51 PM EDT [facility] MCV 89.4 79.0 - 98.0 FL LAB HEMETOLOGY METHOD 06/25[facility]2024 [facility] MCH 30.3 27.0 - 32.0 pcg LAB HEMETOLOGY METHOD 06/25/2024 6:[facility] MCHC 33.9 32.0 - 37.0 g/dL LAB HEMETOLOGY METHOD 06/25/2024 6:[facility] RDW 12.8 11.0 - 15.0 % LAB HEMETOLOGY METHOD 06/25/2024 6:[facility] Platelets 180 130 - 400 K/mcL LAB HEMETOLOGY METHOD 06/25/2024 6:[facility] MPV 11.0 7.0 - 11.0 FL LAB HEMETOLOGY METHOD 06/25/2024 6:51 PM EDT [facility] NRBC 0.0 <1.0 % LAB HEMETOLOGY METHOD 06/25/2024 6:51 PM EDT [facility] NRBC Absolute 0.00 <0.10 K/mcL LAB HEMETOLOGY METHOD 06/25/2024 6:[facility] Neutrophils Relative 51.7 % LAB HEMETOLOGY METHOD 06/25/2024 6:51 PM EDT [facility] Lymphocytes Relative 36.7 % LAB HEMETOLOGY METHOD 06/25/2024 6:51 PM EDT [facility] Monocytes Relative 8.6 % LAB HEMETOLOGY METHOD 06/25/2024 6:51 PM [facility] Eosinophils Relative 2.1 % LAB HEMETOLOGY METHOD 06/25/2024 6:51 PM EDT [facility] Basophils Relative 0.6 % LAB [...] MD LAB BLOOD ORDERABLES Final Resu lt [facility] [address] [place] [address], [place] [phone] * (ABNORMAL) Basic metabolic panel (06/25/2024 6:34 PM EDT) Sodium 136 133 - 145 mmol/L LAB CHEMISTRY METHOD 06/25/2024 7:24 PM EDT [facility] Potassium 4.6 3.5 - 5.5 mmol/L LAB CHEMISTRY METHOD 06/25/2024 7:24 PM [facility] Chloride 104 96 - 110 mmol/L LAB CHEMISTRY METHOD 06/25/2024 7:24 PM [facility] CO2 25 21 - 32 mmol/L LAB CHEMISTRY METHOD 06/25/2024 7:24 PM [facility] Anion Gap 7 3 - [...] 06/25/2024 7:24 PM [facility] eGFR 64 >=60 mL/min/1. 73m2 LAB CHEMISTRY METHOD 06/25/2024 7:24 PM [facility] Comment:Calculation based on the??Chronic Kidney Disease Epidemiology Collaboration (CKD-EPI) equation refit??without adjustment for race. BUN/Creatinine Ratio 35.9 LAB CHEMISTRY METHOD 06/25/2024 7:24 PM [facility] Calcium 9.6 8.5 - 10.5 mg/dL LAB CHEMISTRY METHOD 06/25/2024 7:24 PM EDT [facility] Blood Venous blood specimen / Unknown Venipuncture / Unknown 06/25/2024 6:34 PM EDT 06/25/2024 6:45 PM EDT us Lucho Chappell MD LAB BLOOD ORDERABLES Final Resu lt [facility] [address] [place] [address], [place] [phone] from Last 3 Months Insurance [id number] [id number] [facility] Member Subscriber Plan / Payer (Ef fective 2012-Present) Name:Natali Bower Relation to Subscriber:Self Name:Natali Bower Payer ID:[id number] Group ID:[id number] Type:Not on file Address: [place] [address] [place] [id number] Care Teams Waterproof Bag Sewer Relationship Specialty Start Date End Date Liset Mitchell MD [address] [place] [address] PCP - General 08/09/21
--- OUTSIDE RECORDS SUMMARY | 2024-07-05 23:53 | XMS_ITS | Encounter Summary ---
Author Organization [employer] Address [address] 7[address] [place] [address] Care Team Providers Care Precision Agronomist Name Role Phone Liset Mitchell MD Primary Care Provider [phone] Reason for Visit * Reason Comments Med Change Request Encounter Details Date Type Department Care Team ([facility] Contact Info) Description 10/26/2023 Refill [facility]C MED & PEDS [address] [place], [place] [phone] Liset Mitchell MD [address] [place], [place] [phone] Social History Tobacco Use Types Packs/Day Years [...] Description 07/07/2024 1:15 PM EDT Office Visit [facility] MED & PEDS [address] [place] [address] Liset Mitchell MD [address] [place] [address] documented as of this encounter Visit Diagnoses Not on filedocumented in this encounter Additional Health Concerns Assessment Noted Time PHQ-9 Depression Total Score: 0 04/13/19 23 10:04 AM EST documented as of this encounter Care Teams Precision Agronomist Relationship Specialty Start Date End Date Liset Mitchell MD [address] [place] [address] PCP - General Family Medicine 09/14/20 documented as of this encounter
--- OUTSIDE RECORDS SUMMARY | 2024-07-05 23:53 | XMS_ITS | Encounter Summary ---
Author Organization [employer] Address [address] [place] [address] Care Team Providers Care Financial Quantitative Analyst Name Role Phone Liset Mitchell MD Primary Care Provider [phone] Reason for Visit * Reason Onset Date Comments ER Follow-up 05/15/2023 Encounter Details Date Type Department Care Team ([facility] st Contact Info) Description 05/15/2023 Telephone [facility] MEDICINE [address] [place] [address] Liset Mitchell MD [address] [place], [place] [phone] ER Follow-up Social History Tobacco Use Types [...] answer. LM to call us back in Polish. Routing back to [facility] nurses. * Telephone Encounter - Sammy Hall - 05/15/2023 4:01 PM EDT Tc from pt returning phone call. * Telephone Encounter - Julieta Montalvo RN - 05/15/2023 3:29 PM EDT TC placed to patient x 2 regarding ED visit below via [employer] Development Manager and without manager six sigma line. Patient has extended f/u with PCP on 05/25/23. Noted in appointment about recent ED visit for R shoulder pain/dislocation. LM for patient in Polish that we are calling to check in and hope she is feeling better, remindingof upcoming appointment with PCP on 05/25/23 @ 11:15 and asking her to call us if she needs anythingprior to this appointment or needs a sooner appointment. Routing to PCP so she is aware. Patient calling to report ED visit on : Date: 05/13 [place] [facility] Seen for: Extremity Injury, Upper shoulder pain while taking x-rays Patient advised will forward to team nurse for follow up * Telephone Encounter - Daniel Franklin - 05/15/2023 11:06 AM EDT Patient calling to report ED visit on : Date: 05/13 [place] [facility] Seen for: Extremity Injury, Upper shoulder pain while taking x-rays Patient advised will forward to team nurse for follow up documented in this encounter Plan of Treatment Upcoming Encounters Date Type Department Care Team (Late st Contact Info) Description 07/07/2024 1:15 PM EDT Office Visit [facility] MED & PEDS [address] [place] [address] Liset Mitchell MD [address] [place] [address] documented as of this encounter Visit Diagnoses Not on filedocumented in this encounter Additional Health Concerns Assessment Noted Time PHQ-9 Depression Total Score: 0 04/13/19 23 10:04 AM EST documented as of this encounter Care Teams Financial Quantitative Analyst Relationship Specialty Start Date End Date Liset Mitchell MD [address] [place] [address] PCP - General Family Medicine 09/14/20 documented as of this encounter
--- OUTSIDE RECORDS SUMMARY | 2024-07-05 23:53 | XMS_ITS | Data Portability ---
Author Organization [place] - [facility], Allergy Address [address] [address] Care Team Providers Care Telecommunications Equipment Installer Name Role Phone JACKSON PEDRO Primary Care Provider [phone] Assessment Encounter Date Assessment Date Assessment LastModified [...] Organization Details Recorded Time Nasal congestio n 03259006 Active 2016 Nasal congestio n; Note: Date Diagnosed : 08/11/2016 11:55 AM (R09.81) Not Available [facility] 4 03:07:47 Chronic rhinitis 50723033 Active 2018 Chronic rhinitis; Note: Date Diagnosed : 08/21/2018 5:21 PM (J31.0) Not Available [facility] 4 03:07:47 Tinnitus of right ear 13891344074 08 Active 2016 Tinnitus, right ear; Note: Date Diagnosed : 08/11/2016 12:22 PM (H93.11) Not Available [facility] 4 03:07:46 Asthma 966051205 Active 2016 Other asthma; Note: Date Diagnosed : 03/01/2016 1:00 PM (J45.998) Not Available [facility] 4 03:07:46 Otalgia of right ear 6523000154 Active 2016 Otalgia, right ear; Note: Date Diagnosed : 08/11/2016 12:22 PM (H92.01) Not Available [facility] 4 03:07:46 Disturban ce of salivary secretion 52195539 Active 2018 Xerostomi a; Note: Date Diagnosed : 07/24/2018 2:04 PM (K11.7) Not Available [facility] 4 03:07:46 Sensorine ural hearing loss of bilateral ears 976074548 Active 2016 Sensorine ural hearing loss, bilateral ; Note: Date Diagnosed : 08/11/2016 12:23 PM (H90.3) Not Available [facility] 4 03:07:47 Dysphagia 87497871 Active 2021 Dysphagia , unspecifi ed; Note: Date Diagnosed : 08/10/2021 1:29 PM (R13.10) Not Available [facility] 4 03:07:47 Allergic rhinitis 26633032 Active 2018 Other allergic rhinitis; Note: Date Diagnosed : 07/24/2018 2:03 PM (J30.89) Not Available [facility] 4 03:07:47 Chronic sialadeni tis 395390371 Active 2018 Chronic sialoaden itis; Note: Date Diagnosed : 07/24/2018 2:03 PM (K11.23) Not Available [facility] 4 03:07:46 Impacted cerumen of bilateral ears 97970391443 59623 Active 2016 Impacted cerumen, bilateral ; Note: Date Diagnosed : 03/01/2016 1:00 PM (H61.23) Not Available [facility] 4 03:07:45 Chronic pharyngit is 012961 Active 2019 Chronic sore throat; Note: Date Diagnosed : 07/18/2019 3:39 PM (J31.2) Not Available [facility] 4 03:07:45 Posterior rhinorrhe a 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 Procedures Surgical History Date Name Laterality Status Provider Name and Address Organization Details Recorded Time 03/10/19 25 Tympanometry - 83290 completed Lorri Levy [facility] 03/10/2024 12:09:43 Imaging Results Imaging Date Name Status [facility]Modified by [facility] Details LastModified Time 03/11/2024 audiogram completed BARCODE [...] ended release 2016 active Medicatio n ID: [id number] Br and Name: Toprol XL Send Method: [...] mg tablet 2016 active Medicatio n ID: [id number] Br and Name: chlorthal ariana Sen d Method: E-Prescri bed Subs Allowed: subs OK Medica tionGener icName: chlorthal idone Not Available Not Available Not Available amlodipine 5 mg tablet TAKE 1 TABLET BY MOUTH EVERY DAY active Not Available Not Available No t Available aspirin 81 mg tablet,del ayed release 2016 active Medicatio n ID: [id number] Br and Name: aspirin S end Method: [...] mg tablet 2016 active Medicatio n ID: [id number] Br and Name: Diovan Se nd Method: [...] mg tablet 2016 active Medicatio n ID: [id number] Br and Name: amlodipin e Send Method: E-Prescri bed Subs Allowed: subs OK Medica tionGener icName: amlodipin e Not Available Not Available Not Available simvastati n 20 mg tablet 2016 active Medicatio n ID: [id number] Br and Name: simvastat in Send Method: E-Prescri bed Subs Allowed: subs OK Medica tionGener icName: simvastat in Not Available Not Available Not Available diclofenac 0.1 % eye drops 2016 active Medicatio n ID: [id number] Br and Name: diclofena c sodium Se nd Method: E-Prescri bed Subs Allowed: subs OK Medica tionGener icName: diclofena c sodium Not Available Not Available Not Available diphenhydr amine 25 mg tablet 2016 active Medicatio n ID: [id number] Br and Name: diphenhyd ramine HCl Send Method: E-Prescri bed Subs Allowed: subs OK Medica tionGener icName: diphenhyd ramine HCl Not Available Not Available Not Available Aquaphor topical ointment 2016 active Medicatio n ID: [id number] Br and Name: Aquaphor Send Method: E-Prescri [...] 2 spray 2020 active Medicatio n ID: [id number] Pr escribed By Name: NIELS Dumont Name: [...] 2 puff 2016 active Medicatio n ID: [id number] Du ration Value: 90 Brand Name: Ventolin HFA Send Method: E-Prescri bed Subs Allowed: subs OK Medica tionGener icName: Ventolin HFA Not Available Not Available Not Available Premarin 0.625 mg tablet 2016 active Medicatio n ID: [id number] Br and Name: Premarin Send Method: E-Prescri bed Subs Allowed: subs OK Medica tionGener icName: Premarin Not Available Not Available Not Available rosuvastat in 40 mg tablet TAKE 1 TABLET BY MOUTH EVERY DAY IN THE MORNING active Not Available Not Available No t Available Prilosec OTC 20 mg tablet,del ayed release 2016 active Medicatio n ID: [id number] Br and Name: Prilosec OTC Send Method: E-Prescri bed Subs Allowed: subs OK Medica tionGener icName: Prilosec OTC Not Available Not Available Not Available metformin ER 1,000 mg tablet,ext ended release 24hr (osmotic) 2016 active Medicatio n ID: [id number] Br and Name: metformin Send Method: E-Prescri bed Subs Allowed: subs OK Medica tionGener icName: metformin Not Available Not Available Not Available albuterol sulfate concentrat e 2.5 mg/0.5 mL solution for nebulizati on 2016 active Medicatio n ID: [id number] Br and Name: albuterol sulfate S end [...] aerosol inhaler 2016 active Medicatio n ID: [id number] Br and Name: Flovent HFA Send Method: [...] Meter kit 2016 active Medicatio n ID: [id number] Br and Name: FreeStyle Lite Meter Sen [...] oxide) capsule 2016 active Medicatio n ID: [id number] Br and Name: magnesium oxide Sen d Method: E-Prescri bed Subs Allowed: subs OK Medica tionGener icName: magnesium oxide Not Available Not Available Not Available lidocaine 5 % topical ointment 2016 active Medicatio n ID: [id number] Br and Name: lidocaine Send Method: E-Prescri bed Subs Allowed: subs OK Medica tionGener icName: lidocaine Not Available Not Available Not Available vitamin B12 1,000 mcg-folic acid 400 mcg sublingual tablet 2016 active Medicatio n ID: [id number] Br and Name: vitamin R27-fkisu acid Send Method: E-Prescri bed Subs Allowed: subs OK Medica tionGener icName: vitamin S06-mbehr acid Not Available Not Available Not Available Tanzeum 50 mg/0.5 mL subcutaneo us pen injector 2016 active Medicatio n ID: [id number] Br and Name: Tanzeum S end Method: E-Prescri bed Subs Allowed: subs OK Medica tionGener icName: Tanzeum Not Available Not Available Not Available Jardiance 10 mg tablet 2018 active Medicatio n ID: [id number] Du ration Value: 30 Brand Name: Jardiance Send Method: E-Prescri bed Subs Allowed: subs OK Medica tionGener icName: Jardiance Not Available Not Available Not Available DeVilbiss PulmoNeb LT Compressor -Nebulizer 2016 active Medicatio n ID: [id number] Br and Name: DeVilbiss PulmoNeb LT Comp-Neb [...] perineal applicator 2016 active Medicatio n ID: [id number] Br and Name: Anusol-HC Send Method: E-Prescri bed Subs Allowed: subs OK Medica tionGener icName: Anusol-HC Not Available Not Available Not Available Qvar RediHaler 80 mcg/actuat ion HFA breath activated aerosol 2018 active Medicatio n ID: [id number] Du ration Value: 30 Brand Name: Qvar [...] Address Organization Details Last Updated DateTime 03/10/2024 43915.08 g 33 kg/m2 142.24 cm Roxane Merlos [place] - [facility] 03/10/2024 11:38:17 Social History None recorded. Functional Status None recorded. Mental Status None recorded. Family History Nothing Reported. Medical History No medical history recorded. Gynecological HistoryNo gynecological history recorded. Obstetrics History GPAL:G 0 P 0 0 0 0 Past Encounters Encounter ID Performer Location Encounter Start Date Encounter Closed Date Diagnosis/Indication Diagnosis SNOMED-CT Code Diagnosis ICD10 Code Diagnosis Note [id number] FARTUN HERNANDEZ PA-C [facility] [address] [address] 03/10/2024 11:10:06 03/10/2024 12:30:23 Ear pressure sensation 739640170 H93.8X9 Audiologic al evaluation results: Tympanomet ry: [...] not maintain a hermetic seal}} Allergic rhinitis 980409 04 J30.89 Health Concerns Section Related Observation LastModified by Organization Nathalia lópez LastModified Time None Recorded Concern Status LastModified by Organization Details LastModified Time None Recorded Advance Directives Directive None Recorded Payers Insurance Date Sequence Insurance Name Policy Number Policy Valdovinos Covered Member ID Valdovinos Member ID Guarantor Name 03/10/2024 1 [facility] - DOS ON OR AFTER 2022 - MEDICARE [place]VANTAGE [place]MED[place]ARE RE[place]ACEMENT/AD VANTAGE - PPO) Natali SantosLoni Cortes [id number] [id number] Miltoniciano 03/28/2024 1 [facility] - DOS ON OR AFTER 2022 - [employer] OPTIONS (MEDICARE REPLACEMENT/AD VANTAGE - HMO) Natali Archuletao [id number] Natali Archuletao Notes Date Note Type Note Provider Name [...] this triggered her allergies. CRISTINA JUAREZ MD [address] [place] [address], [address], [place] - [facility] 03/10/2024 15:11:38 OBGyn Episode No OBEpisode recorded.
--- OUTSIDE RECORDS SUMMARY | 2024-07-05 23:53 | XMS_ITS | Encounter Summary ---
Author Organization [employer] Address [address] [place] [address] Care Team Providers Care Ingot Car Operator Name Role Phone Liset [place] MD Primary Care Provider [phone] Reason for Visit * Reason Onset Date Comments Med Refill 06/23/2024 Encounter Details Date Type Department Care Team ([facility] st Contact Info) Description 06/23/2024 Refill [facility]EDS [address] [place], [place] [phone] Liset [place] MD [address] [place] [address] Social History Tobacco Use Types Packs/Day Years [...] 07/07/2024 1:15 PM EDT Office Visit [facility] [address] [place] [address] Liset [place] MD [address] [place] [address] documented as of this encounter Visit Diagnoses Not on filedocumented in this encounter Additional Health Concerns Assessment Noted Time PHQ-9 Depression Total Score: 4 02/28/19 25 9:06 AM EST documented as of this encounter Care Teams Ingot Car Operator Relationship Specialty Start Date End Date Liset [place] MD [address] [place] [address] PCP - General Family Medicine 09/14/20 documented as of this encounter
--- OUTSIDE RECORDS SUMMARY | 2024-07-05 23:53 | XMS_ITS | Encounter Summary ---
Author Organization [employer] Address [address] [place] [address] Care Team Providers Care Theatrical Agent Name Role Phone Liset [place] MD Primary Care Provider [phone] Reason for Visit * Reason Onset Date Comments med reconciliation 06/25/2024 Encounter Details Date Type Department Care Team ([facility] st Contact Info) Description 06/25/2024 Telephone [facility] MEDICINE [address] [place] [address] Liset [place] MD [address] [place], [place] [phone] med reconciliation Social History Tobacco Use Types [...] Telephone Encounter - Roxane Camara RN - 06/30/2024 11:03 AM EDT [facility] Med rec completed. At current pharmacy pt only has scripts for Maalox, Diclofenac gel, CGM, and pen needles. Ying asked if office has list of names of providers that prescribes non-pcp medications . Author informed it is listed as historical provider and it's per patient report. Author obtained fax number and stated that would have to look into medicationlist and author can fax over updated medication list from PCP that PCP prescribed. [facility] fax [phone] and to [facility]/ying as ying is the tech who is working on the pt chart at [facility]. * Telephone Encounter - Keiry Harper - 06/27/2024 10:09 AM EDT Tc from Ying at [facility] requesting a call back for medication reconciliation. * Telephone Encounter - Keiry Harper - 06/26/2024 3:58 PM EDT Tc from Ying with [facility] returning call. Contact Ying at [phone] * Telephone Encounter - Roxane Camara RN [...] Description 07/07/2024 1:15 PM EDT Office Visit [facility] MED & PEDS [address] [place] [address] Liset [place] MD [address] [place] [address] documented as of this encounter Visit Diagnoses Not on filedocumented in this encounter Additional Health Concerns Assessment Noted Time PHQ-9 Depression Total Score: 4 02/28/19 25 9:06 AM EST documented as of this encounter Care Teams Theatrical Agent Relationship Specialty Start Date End Date Liset [place] MD [address] [place] [address] PCP - General Family Medicine 09/14/20 documented as of this encounter
--- OUTSIDE RECORDS SUMMARY | 2024-07-05 23:53 | XMS_ITS | Encounter Summary ---
Author Organization [employer] Address [address] [place] [address] Care Team Providers Care Safety And Health Manager Name Role Phone Liset [place] MD Primary Care Provider [phone] Reason for Visit * Reason Comments Med Change Request Encounter Details Date Type Department Care Team ([facility] Contact Info) Description 09/08/2023 Refill [facility] PEDS [address] [place], [place] [phone] Rubio Blum MD [address] [place] [address] Social History Tobacco Use Types Packs/Day Years [...] Description 07/07/2024 1:15 PM EDT Office Visit [facility] MED [facility] PEDS [address] [place] [address] Liset [place] MD [address] [place] [address] documented as of this encounter Visit Diagnoses Not on filedocumented in this encounter Additional Health Concerns Assessment Noted Time PHQ-9 Depression Total Score: 0 04/13/19 23 10:04 AM EST documented as of this encounter Care Teams Safety And Health Manager Relationship Specialty Start Date End Date Liset [place] MD [address] [place] [address] PCP - General Family Medicine 09/14/20 documented as of this encounter
--- OUTSIDE RECORDS SUMMARY | 2024-07-05 23:53 | XMS_ITS | Encounter Summary ---
Author Organization [employer] Address [address] [place] [address] Care Team Providers Care Resistor Testing Machine Operator Name Role Phone Liset [place] MD Primary Care Provider [phone] Reason for Visit * Reason Onset Date Comments Med Refill 06/23/2024 Encounter Details Date Type Department Care Team ([facility] st Contact Info) Description 06/23/2024 Telephone [facility] [address] [place] [address] Liset [place] MD [address] [place], [place] [phone] Med Refill Social History Tobacco Use Types [...] 58.6 % powder To be sent to: [facility] [place], [place] - [address] [place] [address] *pharmacy unable to get [facility] to transfer scripts. documented in this encounter Plan of Treatment Upcoming Encounters Date Type Department Care Team ([facility] st Contact Info) Description 07/07/2024 1:15 PM EDT Office Visit [facility] MED & PEDS [address] [place] [address] Liset [place] MD [address] [place] [address] documented as of this encounter Visit Diagnoses Not on filedocumented in this encounter Additional Health Concerns Assessment Noted Time PHQ-9 Depression Total Score: 4 02/28/19 25 9:06 AM EST documented as of this encounter Care Teams Resistor Testing Machine Operator Relationship Specialty Start Date End Date Liset [place] MD [address] [place] [address] PCP - General Family Medicine 09/14/20 documented as of this encounter
--- OUTSIDE RECORDS SUMMARY | 2024-07-05 23:53 | XMS_ITS | Data Portability ---
Author Organization [employer] [place] [employer] Address [address] [place] [address] Care Team Providers Care Quality Assurance Nurse Name Role Phone HIM [facility] OTHER [facility] Primary Care Provider [phone] Assessment Encounter Date Assessment Date Assessment LastModified by Organization Details LastModified Time 01/30/2024 01/30/2024 I provided real -time medical direction via phone for this encounter and was available for additional phone-based assistance as needed. I have reviewed and agree with the Assessment and Plan as documented by the Credit Collections Rep. Patient given the opportunity to ask questions. Our service contacted for an assessment of: Non adherence with medication to treat hypertension As per above, patient was prescribed amlodipine by either manager energy PCP and is not adherent to medication given the fact this previously caused a known side effect of peripheral edema. Patient states she will not take medications. Denies chest pain, shortness of breath, dyspnea on exertion, any focal neurologic deficits. Per cork insulator on the scene, vital signs are stable [...] in the field was performed by my cork insulator colleague, as noted above, I provided real-time [...] On the physical exam done by the cork insulator, he does not see any sores inside the bilateral Nares. The patient has no shortness of breath. The patient has no respiratory distress. Lung sounds were clear. She had a basically normal exam. 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 I wonder if there is [...] was discussed with the patient via the cork insulator. An tape machine tailer was used. Pt instructed to have an [...] worsening serious symptoms, particularly fever, excessive bleeding [id number] Not available 02/08/2024 11:20:45 03/26/2024 03/26/2024 Ms. [...] Assessment and Plan as documented by the Credit Collections Rep. We discussed the diagnostic uncertainty of home [...] in the field was performed by my cork insulator colleague, as noted above, I provided real-time [...] Go To The Location Of Their Choice, [address] 10:06:03 urinalysis, dipstick 2024 025 BURAK [facility] - [facility], [address] [place] [address], [id number] 19:53:02 BMP, serum or plasma [address], [address] [place] [address], [phone] 5 21:24:08 rapid SARS CoV 2 Ag, QL IA, respiratory specimen [address], [address] [place] [address], [id number] 5 21:24:08 rapid flu (A+B) [address], [address] [place] [address], [phone] 5 21:24:08 Referral None recorded. Procedures None recorded. Surgeries None recorded. Imaging electrocard iogram 2024 025 [facility], [address] [place] [address], [id number] 22:26:12 Medication Orders ondansetron HCl (PF) 4 mg/2 mL injection solution 2024 025 [address] [facility] [address] [id number] [address] [place], [address], 21:24:08 sodium chloride 0.9 % intravenous solution 2024 025 [id number] [place], [address], 21:24:08 ondansetron 4 mg disintegrat ing tablet 2024 025 [id number] [address] [place], [address], 5 21:24:10 mupirocin 2 % topical ointment 2023 024 [id number] [address] [place], [address], 4 10:59:37 Patient TargetsNo targets recorded. Patient InstructionsNo instructions recorded. Reason for Referral None Reported. Results Created Date Observation Date Name Description Value Unit Range Abnormal Flag Note LastModifiedBy Organization Detail LastModifiedTime 03/26/19 25 03/26/2024 rapid SARS CoV 2 Ag, QL IA, respi rator y speci men rapid SARS CoV 2 Ag, QL IA, respiratory specimen negati ve Not Available [facility] ed [address] [place] [address], [phone] 03/26/2024 20:33:01 03/26/19 25 03/26/2024 rapid flu (A+B) Flu negati ve Not Available [facility] ed [address] [place] [address], [address] 03/26/2024 20:33:02 05/22/19 25 05/23/2024 URINE CULTU RE,CO MPREH ENSIV E urine culture,comp rehensive Final report Not Available [facility] ([facility]) [address] [place], [address], 05/23/2024 10:06:03 05/22/19 25 05/23/2024 URINE CULTU RE,CO MPREH ENSIV E result 1 COMMEN T Mixed uroge nital ty 10,00 0-25, 000 colon y formi ng units per mL Not Available [facility] ([facility]) [address] [place], [address], 05/23/2024 10:06:03 06/25/19 25 06/24/2024 elect darion amorgr am No observ ation record ed. [address], [address] 06/24/2024 22:15:08 Result Notes None recorded. Procedures Surgical History None recorded. Imaging Results Imaging Date Name Status LastModified by Organization Details LastModified Time 06/24/2024 electrocardiogram completed [address], [address] 06/24/2024 22:15:08 Procedure Notes None recorded. Medical Equipment None Reported. Allergies Allergen ID Allergen Name Allergen Category Reaction Reaction Severity Criticality Documentation Date Start Date Code Code System Note Provider Name and Address Organization Details Recorded Time 60264 metoprolo l Not available Not available Not available Not available 01/30/2024 6918 RxNorm Not Available [facility] 17:06:26 6413 ezetimibe medicatio n Not available Not available Not available 11/29/2023 80884 8 RxNorm Not Available [facility] 13:58:51 6414 fluticaso ne Not available Not available Not available Not available 11/29/2023 57932 RxNorm Not Available [facility] production 13:58:51 6415 hydrocodo ne Not available Not available Not available Not available 11/29/2023 5489 RxNorm Not Available [facility] production 17:06:26 6416 umeclidin ium medicatio n chest pain Not available Not available 11/29/2023 45942 14 RxNorm Giorgio Pathak MD [address] [facility],[address], [place], [address] [place] [address] [employer] 16:24:27 6417 lisinopri l medicatio n Not available Not available Not available 11/29/2023 30108 RxNorm Not Available [facility] - production 13:58:51 [...] Available Not Available Not Available Dexcom G7 Trigonometry Teacher USE DIRECTED active Not Available Not Available [...] Details Last Updated DateTime 4 97.4 [degF] 94165.8 8 g 99 % 99 % 16 /min 86 /min 162 mm[Hg] 84 mm[Hg] Not Available [facility] [employer] 4 21:07:32 Date Recorded Oxygen saturation Oxygen saturation in Arterial blood by Pulse oximetry Heart rate Respiratory rate Body temperature Body weight Systolic blood pressure Diastolic blood pressure Provider Name and Address Organization Details Last Updated DateTime 4 99 % 99 % 78 /min 16 /min 98.2 [degF] 33539.8 8 g 146 mm[Hg] 80 mm[Hg] Not Available [facility] [employer] 4 10:51:35 Date Recorded Body height Heart rate Respiratory rate Oxygen saturation Oxygen saturation in Arterial blood by Pulse oximetry Body weight Body temperature Systolic blood pressure Diastolic blood pressure Provider Name and Address Organization Details Last Updated DateTime 5 144.78 cm 83 /min 18 /min 97 % 97 % 83090.0 64 g 98.4 [degF] 153 mm[Hg] 67 mm[Hg] Not Available [facility] [employer] 5 20:31:05 Date Recorded Respiratory rate Heart [...] 5 14 /min 72 /min 157.48 cm 01356.8 g 63 /min 98 % 98 % [...] 1785 Sosa Donnelly MD Main - [facility] [address] [place] [address] 07/20/2021 17:44:53 11/22/2021 12:52:06 Dysuria 92575586 R30.9 2428 Holland Lewis MD Main - [facility] [address] [place] [address] 08/24/2021 17:49:18 11/17/2021 12:06:10 Adverse reaction to drug 15528566 T50.905A Reports some nausea and fatigue immediatel y after taking hydroxyzin e. Denies palpitatio ns (as in the expect note), chest pain, or chest pressure. Asymptomat ic now and feels back at baseline. Advised she go back to taking the hydroxyzin e once a day and communicat e all medication changes closely with primary care provider. 3329 Narendra Hassan MD Main - [facility] [address] [place] [address] 10/08/2021 16:48:26 11/21/2021 12:43:51 Dysuria 49185262 R30.9 Will await culture prior to treatment given equivocal U/A [id number] Nataliia Grewal MD Main - [facility] [address] [place] [address] 07/13/2022 17:00:14 07/14/2022 08:55:34 Inguinal pain 282895005 R10.2 01794 Holland Lewis MD Main - [facility] [address] [place] [address] 08/24/2022 12:05:17 08/24/2022 22:29:37 Wheezing 00907409 R06.2 suspect viral-william kimberley bronchospa sm. Patient had some improvemen t with a short course of steroids prescribed last week but symptoms persist. No evidence of bacterial superinfec tion based on available data. Offered DuoNeb and a recurrent course of steroids, but patient declined. She will seek further care with her PCP. Red flags reviewed by cork insulator and patient in understand ing. [address]4428 González Campo MD Main - [facility] [address] [place] [address] 12/12/2022 18:24:35 12/13/2022 22:28:07 Facial swelling 256710956 R22.0 04101 Rich Lee MD Main - [facility] [address] [place] [address] 03/26/2023 19:07:48 03/27/2023 10:52:20 Pain in right foot [id number] 25312 M79.671 This 77-year-ol d female with type 2 diabetes got her right foot caught in a screen today, and she thinks it cut her foot. The cork insulator found no visual trauma to her right foot. I recommende d observatio n. She will follow-up with her PCP for any ongoing problems with her foot. The patient agreed with this plan. 500[address] Nataliia Grewal MD Main - [facility] [address] [place] [address] 07/17/2023 13:48:23 07/17/2023 17:51:58 Pain of shoulder region 17403717 M25.519 73548 González Campo MD Main - [facility] [address] [place] [address] 08/10/2023 16:32:57 08/10/2023 21:11:42 Seasonal allergic rhinitis 108753230 J30.2 46039 Luci Corey MD Main [facility] [address] [place] [address] 10/22/2023 19:42:26 10/22/2023 21:01:10 Nausea 511733019 R11.0 33800 Giorgio Pathak MD Main - [facility] [address] [place], [place] [phone] 11/29/2023 10:16:41 11/30/2023 00:42:40 Erythematous rash 750280574 R21 could be cellulitis vs fungal process 77722 Nataliia Grewal MD Main - [facility] [address] [place] [address] 0 01/30/2024 21:07:30 01/31/2024 08:54:42 Essential hypertension 47518620 I10 65340 PRAMOD SIMONS MD Main - [facility] [address] [place], [place] [address] 0 02/08/2024 10:51:33 02/08/2024 14:05:30 Lesion of nasal mucosa 331731747 J34.89 23186 GENE BO MD Main - [facility] [address] [place], [place] [phone] 03/26/2024 20:30:34 03/26/2024 23:58:55 Nausea and vomiting 00915470 R11.2 65299 Luci Corey MD Main - [facility] [address] [place], [place] [address] 05/21/2024 19:06:00 05/21/2024 21:57:41 Hypertensive disorder 81071153 I10 Abnormal urinalysis 1672 21210 R82.90 Dysuria 31479281 R30.0 17839 González Campo MD Main [facility] [address] [place] [address] 06/24/2024 19:37:52 06/24/2024 21:30:35 Dizziness 099860284 R42 Health Concerns Section Related Observation LastModified by Organization Detai ls LastModified Time None Recorded Concern Status LastModified by Organization Details LastModified Time None Recorded Advance Directives Directive None Recorded Payers Insurance Date Sequence Insurance Name Policy Number Policy Valdovinos Covered Member ID Valdovinos Member ID Guarantor Name 08/24/2022 1 [facility] - DOS PRIOR TO 2022 - DUAL ELIGIBLE (MEDICARE REPLACEMENT/AD VANTAGE - HMO) Natali Ai Cortes [id number] Natali Carter Ai Cortes 06/24/2024 1 [facility] - DOS ON OR AFTER 2022 - DUAL ELIGIBLE - [employer] OPTIONS AND ONE CARE (MEDICARE REPLACEMENT/AD VANTAGE - HMO) Natali Ai Cortes [id number] Natali Carter Ai Cortes Notes Date Note [...] ...................... ...................... ...................... ...................... ...................... ...................... ......... Credit Collections Rep Note From Salazar Jean-Baptiste: Pt wanted BP evaluated. Pt was diagnosed with elevated BP and was prescribed amplodipine and is unwilling to take medications as she feels it causes her lower extremity edema. Pt denies CP, SOB, Headache, dizziness, NVD, abdominal pain. Baseline vitals assessed, WNL, Bp slightly elevated. [facility] contacted and advised pt to contact cardiology for follow up and also PCP. Pt education on signs indicating the ER. ...................... ...................... ...................... ...................... ...................... ...................... ......... [facility] Consulted: Nataliia Grewal ...................... ...................... ...................... ...................... ...................... ...................... ......... Disposition: Fulfilled Nataliia Grewal MD [address] [place] [address],[address] [facility], [place], [address], [employer] 01/30/2024 21:10:54 02/08/2024 text/html CRC Nurse Triage Notes (Vicki Jane - RN): Reason For Request: Pt reporting for about 3 days reporting a blockage in her nose and notes it feels very dry>denies fever/chills>denies headache, denies dizziness. Chief Complaints: Wound care PMH: COPD/Asthma, Hypertension, Diabetes Mellitus Type 2, Hyperlipidemia Comments: Upper Sorbian speaking member calling to request visit for painful sores inside both nares for the past 3 days. Reports intermittent bleeding. Has been applying vaseline. Does not wear 02. ...................... ...................... ...................... ...................... ...................... ...................... ......... Credit Collections Rep Note From Salazar Jean-Baptiste: Pt co sores [...] unable to get good visual inside nostrils. [facility] Kristyn contacted and RX for mupirocin called into pharmacy. Pt advised to use the antibiotic ointment for up to 4-5 days and if no relief to contact PCP for further evaluation. Pt education on signs indicating the ER. ...................... ...................... ...................... ...................... ...................... ...................... ......... [facility] Consulted: Pramod Simons ...................... ...................... ...................... ...................... ...................... ...................... ......... Disposition: Fulfilled PRAMOD SIMONS MD [address] [facility],[address], [place], [address], [employer] 02/08/2024 11:21:07 03/26/2024 text/html CRC Nurse Triage Notes (Linda Stanton - RN): Reason For Request: N/V, abdominal pain Chief Complaints: Vomiting, Abdominal pain PMH: COPD/Asthma, Hypertension, Diabetes Mellitus Type 2, Hyperlipidemia, Allergic Rhinitis PMH Reviewed at 03/26/2024: Allergies Reviewed at 03/26/2024:41 Comments: Member is [...] allergies. Educated about response time. Dashawn RN Credit Collections Rep Organization Information for Gila Rosario Legal Name: [employer] Address: [address] [place] [address], Geothermal Powerplant Mechanic Helper: Miguel Brown MD CLIA No.: [id number] Credit Collections Rep POC Test Results from Gila Rosario iSTAT [...] ...................... ...................... ...................... ...................... ...................... ...................... ......... Credit Collections Rep Note From Gila Rosario: Sent to a [...] blood draw performed; Chem8+ results: uploaded to Reading Room. [facility] consulted and orders rapid covid/flu test; Zofran 4mg IV and Normal Saline 500ml IV. Covid/flu test: neg; Zofran 4mg IV and Normal Saline 500ml IV administered. Pt reports nausea resolved. [facility] sends script to pt's pharmacy. IV removed. Red flags discussed. Pt has no further questions. ...................... ...................... ...................... ...................... ...................... ...................... ......... [facility] Consulted: Gene Bo ...................... ...................... ...................... ...................... ...................... ...................... ......... Disposition: Fulfilled GENE BO MD [address] [place] [address],[facility], [place], [address], [employer] 03/26/2024 22:16:21 05/21/2024 text/html HPI: Ezetimibe? D [...] 05/21/2024:47 Allergies Reviewed at 05/21/2024:47 Comments: [facility] HPI: Credit Collections Rep Organization Information for Rubio Swanson Legal Name: [employer] Address: [address] [place] [address], Geothermal Powerplant Mechanic Helper: Miguel LYN No.: [id number] Credit Collections Rep POC Test Results from Rubio Swanson Urine [...] Coronary Artery Disease, Asthma PMH Reviewed at 05/21/2024: Allergies Reviewed at 05/21/2024:47 Comments: [facility]: seen yesterday at ED for high blood pressure. neg lab and ekg work up. having dysuria, as well. 200/100s yesterday. 180/70 today. no kumar, vision changes, chest pain. called PCP for appt but not appt yet.HTN meds: amlodipine - 5mg; last filled Feb 3Also on qhs insulin, clopidogrel, sertraline, aspirin ...................... ...................... ...................... ...................... ...................... ...................... ......... Credit Collections Rep Note From Rubio Swanson: dispatched for a 78yo female with hypertension and burning urination. Pt reports she was seen yesterday at [facility] for hypertension. Pt reports BP was 200+/100+. Pt was discharged with no finding. Pt reports she called today because she needs med changes to manage bp and recent burning urination. Pt denies h/a, dizziness, cp, sob or nausea at this time. [facility] consulted. Urine dip and lab send out order. Pt informed she can increase her amlodipine from 5mg to 10mg until she can get into her manager energy. [facility] informs pt to make sure she follows up with PCP or manager energy. Pt informed of red flags. Pt states she understands. Pt found walking and speaking in full clear sentences with no signs of distress. AO and GCS-15. PERRL. Skin warm/dry. Airway open and lung sounds clear. ABD soft nontender. BGL:291. Rest of exam unremarkable. [facility] Lab Orders: culture, urine: Performed urinalysis, dipstick: Performed ...................... ...................... ...................... ...................... ...................... ...................... ......... [facility] Consulted: Luci Corey ...................... ...................... ...................... ...................... ...................... ...................... ......... Disposition: Fulfilled Luci Corey MD [address] [place] [address],[address], [place], [address], [employer] 05/21/2024 20:47:38 06/24/2024 text/html CRC Nurse Triage [...] Artery Disease, Asthma PMH Reviewed at 06/24/2024 17:55 Allergies Reviewed at 06/24/2024 - 17:55 Comments: HR 78 y.o female complains of Dizziness, Heart Rate Problems Referral taken via Rn Midwife. Patient unable to confirm allergies. Patient calling [...] ...................... ...................... ...................... ...................... ...................... ...................... ......... Credit Collections Rep Note From Richard Jamison: Patient alert and [...] extremities, unremarkable good skin TURGOR. ECG to [facility]. [facility] advises patient to stop using minoxidil consider watchful waiting and contact PCP or [facility] for further treatment if symptoms return. Red flags, patient education discussed. ...................... ...................... ...................... ...................... ...................... ...................... ......... [facility] Consulted: González Campo ...................... ...................... ...................... ...................... ...................... ...................... ......... Disposition: Fulfilled González Campo MD [address] [facility],[address], [place], [address], [employer] 06/24/2024 21:19:26 OBGyn Episode No OBEpisode recorded.
--- OUTSIDE RECORDS SUMMARY | 2024-07-05 23:53 | XMS_ITS | Encounter Summary ---
Author Organization [employer] Address [address] [place] [address] Care Team Providers Care Reconditioning Associate Name Role Phone Liset Mitchell MD Primary Care Provider [phone] Encounter Details Date Type Department Care Team (Late st Contact Info) Description 05/30/2024 Orders Only [facility] [address] [place], [place] [phone] Eli Rodriguez NP [address] [place], [place] [phone] Social History Tobacco Use Types Packs/Day Years [...] 07/07/2024 1:15 PM EDT Office Visit [facility] [address] [place] [address] Liset Mitchell MD [address] [place] [address] documented as of this encounter Visit Diagnoses Not on filedocumented in this encounter Additional Health Concerns Assessment Noted Time PHQ-9 Depression Total Score: 4 02/28/19 25 9:06 AM EST documented as of this encounter Care Teams Reconditioning Associate Relationship Specialty Start Date End Date Liset Mitchell MD [address] [place] [address] PCP - General Family Medicine 09/14/20 documented as of this encounter
--- NOTE | 2024-07-06 00:13 | ED_ITS ---
HPI - General Adult General Chief complaint: General Medical Stated complaint: HTN, did take bp meds Time Seen by Provider: 07/05/24 23:51 Source: patient Mode of arrival: EMS Limitations: no limitations History of Present Illness ED Provider: HPI narrative: Patient's history of coronary artery disease, high cholesterol, hypotension and anxiety earlier patient checked her blood pressure was 199/91 when patient arrived in the ED patient's blood pressure was 152/54 patient's feel anxious had mild headache feeling much better at this time no chest pain no shortness a breath no leg swelling patient took her medication earlier today Related Data Home Medications ?Medication ?Instructions ?Recorded ?Confirmed lancets (DatabricksTouch UltraSoft #100 ea 01/06/20 05/30/24 Lancets) pen needle, diabetic 32 gauge x #50 ea 08/17/20 05/30/24 simethicone 125 mg capsule (Gas 0 mg PO 11/26/20 05/30/24 Relief Extra Strength) spironolactone 25 mg tablet 25 mg PO DAILY 11/26/20 05/30/24 latanoprost 0.005 % eye drops 1 drp ophthalmic (eye) BEDTIME 07/26/22 05/30/24 pioglitazone 45 mg tablet 45 mg PO DAILY 11/21/22 05/30/24 sertraline 50 mg tablet 50 mg PO DAILY 06/18/23 05/30/24 ipratropium bromide 21 mcg (0.03 intranasal 08/16/23 05/30/24 %) nasal spray insulin glargine 100 unit/mL (3 20 unit subcut DAILY 10/10/23 05/30/24 mL) subcutaneous pen (Lantus Solostar U-100 Insulin) Previous Rx's ?Medication ?Instructions ?Recorded blood sugar diagnostic (DatabricksTouch #100 ea 01/07/20 Verio test strips) blood-glucose meter (OneTouch #1 ea 01/07/20 Verio Meter) inhalational spacing device #1 ea 01/25/21 (Aerochamber MV spacer) albuterol sulfate 90 mcg/actuation 2 puff PO Q4H PRN for wheezing 30 11/21/22 aerosol inhaler (Ventolin HFA) days #18 ea budesonide 32 mcg/actuation nasal 2 spray intranasal DAILY 30 days 11/21/22 spray #8.43 mL ipratropium 0.5 mg-albuterol 3 mg 3 ml inhalation Q6H PRN for 03/30/23 (2.5 mg base)/3 mL nebulization wheezing #180 mL soln budesonide 0.5 mg/2 mL suspension 0.5 mg (2 mL) inhalation BID 30 05/21/23 for nebulization days #120 mL acetaminophen 500 mg tablet 500 mg PO Q6H PRN fever or pain 08/10/23 #14 tabs sennosides 8.6 mg-docusate sodium 2 tab-cap (2 x 8.6-50 mg) PO 08/16/23 50 mg tablet (Senna with Docusate BEDTIME PRN constipation 60 days Sodium) #120 tabs fluticasone propionate 115 2 puff PO Q12H #12 ea 12/11/23 mcg-salmeterol 21 mcg/actuation HFA inhaler (Advair HFA) lubiprostone 8 mcg capsule 8 mcg PO BID 30 days #60 caps 03/31/24 (Amitiza) alirocumab 75 mg/mL subcutaneous 75 mg subcut Q14D 90 days #6 mL 05/30/24 pen injector (Praluent Pen) carvedilol 3.125 mg tablet 3.125 mg PO BID #60 tabs 05/30/24 clopidogrel 75 mg tablet 75 mg PO DAILY #90 tabs 05/30/24 Allergies Allergy/AdvReac Type Severity Reaction Status Date / Time fluticasone [Flovent HFA] Allergy Unknown lip Verified 07/05/24 23:41 swelling lisinopril Allergy Itching Verified 07/05/24 23:41 umeclidinium AdvReac Intermediate Chest Pain Verified 07/05/24 23:41 [From Incruse Ellipta] empagliflozin [Jardiance] AdvReac Unknown vaginal Verified 07/05/24 23:41 itch metformin AdvReac Unknown stomach Verified 07/05/24 23:41 pain sitagliptin [Januvia] AdvReac Unknown stomach Verified 07/05/24 23:41 pain acetaminophen [From Percocet] AdvReac Nausea and Verified 07/05/24 23:41 Vomiting hydrocodone [From Vicodin] AdvReac Nausea and Verified 07/05/24 23:41 Vomiting ibuprofen [From Motrin] AdvReac Stomach Verified 07/05/24 23:41 Upset oxycodone [From Percocet] AdvReac Nausea and Verified 07/05/24 23:41 Vomiting Review of Systems Review of Systems: Yes all other systems are reviewed and are negative [facility] Past Medical History Medical History Dysphagia Tracheobronchomalacia ROXIE (obstructive sleep apnea) Essential hypertension Atherosclerotic cardiovascular disease Urinary incontinence Obese Dyslipidemia Anxiety and depression Gastric pain Sinusitis Chronic allergic rhinitis Asthma Cough Cough Diabetes mellitus Fibromyalgia Pulmonary nodules Surgical History H/O heart artery stent Hx of esophagogastroduodenoscopy History of bronchoscopy Hx of colonoscopy H/O left knee surgery H/O breast biopsy H/O: hysterectomy Family History Family History Father Hypertension Mother Hypertension Diabetes Daughter Diabetes Brother No problems noted. Social History Social History Household Members: Children Unable to assess alcohol history related to: Unknown Alcohol intake: former Patient Tobacco Use Status: Never used Tobacco Smoked in Last 30 Days: No Second Hand Smoke Exposure: Yes Use of substances other than those prescribed or required for medical reasons: No Advance Directives: No Physical Exam ED Vital Signs: Vital Signs - 24 hr 07/05/24 23:39 07/05/24 23:43 Temperature 97.4 F 97.4 F Pulse Rate 52 52 Respiratory Rate 14 14 Blood Pressure 152/54 H 152/54 H Pulse Oximetry 97 97 Oxygen Delivery Method Room Air Room Air BMI result Body Mass Index 30.9 Appearance: Alert. Oriented X3. No acute distress. Anxious Eyes: PERRLA, No Nystagmus ENT: Pharynx normal. Oral Mucosa moist Neck: Normal inspection. Neck supple. CVS: Normal heart rate and rhythm. Pulses normal. Respiratory: No respiratory distress. Equal air entry bilateral, no wheezing/rales/rhonchi Abdomen: Soft and nontender. Bowel sounds are present, no mass palpable, no CVA tenderness Skin: Skin warm and dry. Normal skin color. Normal skin turgor. Extremities: No lower extremity edema. No calf tenderness Neuro: Oriented X 3. No motor deficit. No sensory deficit.No cerebellar signs , cranial nerves II-XII intact Medical Decision Making Medical Decision Making MDM Narrative: Patient's transient hypertension with anxiety EKG without any ischemic changes patient did have recent labs on 06/26/2024 which were stable will discharge patient home advised to continue her anxiety medication Independent Interpretation I performed an independent interpretation of an: EKG Interpretation: Sinus bradycardia ventricular rate 49 beats per minute normal intervals normal axis LVH no acute STT wave changes no acute ischemia Discharge Plan Discharge Clinical Impression: Essential hypertension, Anxiety Patient Disposition: Home, Self-Care Instructions: Chronic Hypertension (ED), Anxiety (ED) Additional Instructions: Continue take your medication as prescribed by cardiology Continue medication for your depression and follow up with your PCP Your elevated blood pressure was likely because of increased anxiety Prescriptions: No Action (DME) lancets [OneTouch UltraSoft Lancets] Misc See Rx Instructions .ROUTE .MEDSUPPLY Qty: 100 Rx Instructions: As directed (DME) blood-glucose meter [OneTouch Verio Meter] Misc See Rx Instructions .ROUTE .MEDSUPPLY Qty: 1 0RF Rx Instructions: As directed (DME) OneTouch Verio test strips Strip See Rx Instructions .ROUTE .MEDSUPPLY Qty: 100 0RF Rx Instructions: As directed (DME) Aerochamber MV Spacer See Rx Instructions .ROUTE .MEDSUPPLY Qty: 1 0RF Rx Instructions: As directed ipratropium-albuterol 0.5 mg-3 mg(2.5 mg base)/3 mL solution for nebulization 3 ml inhalation Q6H PRN (Reason: for wheezing) Qty: 180 2RF fluticasone propion-salmeterol [Advair HFA] 115-21 mcg/actuation HFA aerosol inhaler 2 puff PO Q12H Qty: 12 11RF acetaminophen 500 mg tablet 500 mg PO Q6H PRN (Reason: fever or pain) Qty: 14 0RF simethicone [Gas Relief Extra Strength] 125 mg capsule 0 mg PO spironolactone 25 mg tablet 25 mg PO DAILY (DME) pen needle, diabetic 32 gauge x needle See Rx Instructions .ROUTE .MEDSUPPLY Qty: 50 Rx Instructions: As directed pioglitazone 45 mg tablet 45 mg PO DAILY albuterol sulfate [Ventolin HFA] 90 mcg/actuation HFA aerosol inhaler 2 puff PO Q4H PRN (Reason: for wheezing) 30 Days Qty: 18 6RF budesonide 32 mcg/actuation spray,non-aerosol 2 spray intranasal DAILY 30 Days Qty: 8.43 7RF Rx Instructions: administer into each nostril budesonide 0.5 mg/2 mL suspension for nebulization 0.5 mg inhalation BID 30 Days Qty: 120 11RF Lantus Solostar U-100 Insulin 100 unit/mL (3 mL) insulin pen 20 unit subcut DAILY lubiprostone [Amitiza] 8 mcg capsule 8 mcg PO BID 30 Days Qty: 60 3RF carvedilol 3.125 mg tablet 3.125 mg PO BID Qty: 60 5RF Rx Instructions: must administer with a meal/food BP medication clopidogrel 75 mg tablet 75 mg PO DAILY Qty: 90 3RF Rx Instructions: Blood thinner for heart Praluent Pen 75 mg/mL pen injector 75 mg subcut Q14D 90 Days Qty: 6 3RF Rx Instructions: No longer taking Repatha - reports side effects latanoprost 0.005 % drops 1 drp ophthalmic (eye) BEDTIME sertraline 50 mg tablet 50 mg PO DAILY ipratropium bromide 21 mcg (0.03 %) spray,non-aerosol intranasal sennosides-docusate sodium [Senna with Docusate Sodium] 8.6-50 mg tablet 2 tab-cap PO BEDTIME PRN (Reason: constipation) 60 Days Qty: 120 2RF Rx Instructions: Please take every other day at bedtime Print Language: Icelandic
--- NOTE | 2024-07-06 00:34 | ECG_ITS ---
Test Reason : HTN Blood Pressure : */* mmHG Vent. 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
[2024-07-06] MEDS: LORazepam 0.5 MG TABLET PO (01:07)
--- NOTE | 2024-07-06 01:15 | PC.NURSE ---
Pt medicated per mar Pt denies pain at this time Pt a&ox4, no signs of distress Plan of care ongoing
[2024-07-06 01:16] VITALS: BP 152/54; PULSE 52; RESP 14; TEMP 36.3; O2SAT 97
== END 2024-07-06 01:16 | disposition home or self-care (01) ==
PROVIDERS: Emergency Provider Internal Medicine; PCP Internal Medicine
DX: F41.9 Anxiety disorder, unspecified (principal); R00.1 Bradycardia, unspecified; I10 Essential (primary) hypertension; E11.9 Type 2 diabetes mellitus without complications; Z79.4 Long term (current) use of insulin; Z91.199 Patient's noncompliance with other medical treatment and regimen due to unspecified reason; Z79.899 Other long term (current) drug therapy
CPT/HCPCS: 93005; 99283; 99284

== ENCOUNTER → 2024-07-06 00:34 | Outpatient (BNV) | payer OTHER, SELFPAY | PROVIDERS: Emergency Provider Internal Medicine; PCP Internal Medicine; Visit Provider Internal Medicine | DX: R00.1 Bradycardia, unspecified (principal); R94.31 Abnormal electrocardiogram [ECG] [EKG]; I10 Essential (primary) hypertension | CPT/HCPCS: 93010 ==

== ENCOUNTER 2024-07-10 01:32 | Emergency (ER) | payer OTHER, SELFPAY ==
--- NOTE | ~2024-07-10 | XR_ITS ---
CLINICAL HISTORY: Epigastric pain 1 view chest x-ray Comparison: CR - XR CHEST 1V - 03/19/24 20:25 EST Findings: The lungs are clear. Heart size is normal. No acute fracture. IMPRESSION: 1. No acute findings. This document has been electronically signed by: Sacha Rivero MD, PHD on 07/10/2024 04:24:37
[2024-07-10 01:42] VITALS: BP 146/62; BP 149/67; PULSE 69; PULSE 82; RESP 16; TEMP 36.8; O2SAT 97; BMI 25.8
[2024-07-10 01:46] VITALS: BP 146/62; PULSE 69; RESP 16; TEMP 36.8; O2SAT 97
--- NOTE | 2024-07-10 01:54 | ECG_ITS ---
Test Reason : ABDOMINAL PAIN Blood Pressure : */* mmHG Vent. Rate : 54 BPM Atrial Rate : 54 BPM P-R Int : 186 ms QRS Dur : 98 ms QT Int : 432 ms P-R-T Axes : 44 -28 -1 degrees QTcB Int : 409 ms Sinus bradycardia Minimal voltage criteria for LVH, may be normal variant ( Ti product ) Inferior infarct (cited on or before 19-Aug-2022) Abnormal ECG When compared with ECG of 06-Jul-2024 00:52, No significant change was found Referred By: Gena Graham Electronically Signed By: LALITHA PARMAR MD
[2024-07-10 02:07] LABS: MANUAL DIFF FLAG NO
[2024-07-10 02:09] LABS: Basophils Absolute Auto 0.1 X10*3/uL (0.0-0.2); Basophils Percent Auto 0.6 % (0-2); Eosinophils Absolute Auto 0.1 X10*3/uL (0.0-0.4); Eosinophils Percent Auto 1.8 % (0-4); Hematocrit 36.5 % (37.0-47.0); Hemoglobin 13.4 g/dl (12.0-16.0); Imm Gran Abs Auto 0.02 X10*3/uL (0.00-0.03); Imm Gran Pct Auto 0.3 % (0.0-0.4); Lymphocytes Absolute Auto 2.5 X10*3/uL (1.2-4.9); Lymphocytes Percent Auto 31.2 % (20-40); Mean Corpuscular HGB Conc 36.7 g/dl (31.0-35.0); Mean Corpuscular Hemoglobin 31.7 pg (27.0-33.0); Mean Corpuscular Volume 86.3 fL (80.0-98.0); Mean Platelet Volume 10.8 fL (9.4-12.3); Monocytes Absolute Auto 0.6 X10*3/uL (0.1-1.2); Neutrophils Absolute Auto 4.7 x10*3/uL (2.0-8.3); Neutrophils Percent Auto 59.1 % (45-73); Platelet Count 181 X10*3/uL (160-400); Red Blood Count 4.23 X10*6/uL (4.20-5.50); White Blood Count 7.9 X10*3/uL (4.8-10.8)
[2024-07-10] MEDS: Famotidine/PF 20 MG/2 ML VIAL IVPUSH (02:10)
[2024-07-10] MEDS: Magnesium Hydrox/Alum Hydrox 30 ML ORAL.SUSP PO (02:10)
--- NOTE | 2024-07-10 02:10 | ED_ITS ---
HPI - General Adult General Chief complaint: Abdominal Pain Stated complaint: Woke up from sleep nauseous, Elevated BP 167/81 Time Seen by Provider: 07/10/24 01:46 Source: patient, EMS and interpreter translator Mode of arrival: EMS Limitations: no limitations History of Present Illness ED Provider: DR. Graham HPI narrative: 78-year-old female with history of CAD, HLD, hypotension, and anxiety brought in by ambulance for evaluation of nausea and epigastric pain that woke the patient up from sleep, patient checked her blood pressure and was high, patient stated that she feels anxious that she is home alone tonight. On arrival to the ED patient's symptoms has improved, no chest pain, no epigastric pain, nausea, no vomiting. Related Data Home Medications ?Medication ?Instructions ?Recorded ?Confirmed lancets ([employer] UltraSoft #100 ea 01/06/20 05/30/24 Lancets) pen needle, diabetic 32 gauge x #50 ea 08/17/20 05/30/24 simethicone 125 mg capsule (Gas 0 mg PO 11/26/20 05/30/24 Relief Extra Strength) spironolactone 25 mg tablet 25 mg PO DAILY 11/26/20 05/30/24 latanoprost 0.005 % eye drops 1 drp ophthalmic (eye) BEDTIME 07/26/22 05/30/24 pioglitazone 45 mg tablet 45 mg PO DAILY 11/21/22 05/30/24 sertraline 50 mg tablet 50 mg PO DAILY 06/18/23 05/30/24 ipratropium bromide 21 mcg (0.03 intranasal 08/16/23 05/30/24 %) nasal spray insulin glargine 100 unit/mL (3 20 unit subcut DAILY 10/10/23 05/30/24 mL) subcutaneous pen (Lantus Solostar U-100 Insulin) Previous Rx's ?Medication ?Instructions ?Recorded blood sugar diagnostic ([email or web address] #100 ea 01/07/20 Verio test strips) blood-glucose meter ([email or web address] #1 ea 01/07/20 Verio Meter) inhalational spacing device #1 ea 01/25/21 (Aerochamber MV spacer) albuterol sulfate 90 mcg/actuation 2 puff PO Q4H PRN for wheezing 11/21/22 aerosol inhaler (Ventolin HFA) days #18 ea budesonide 32 mcg/actuation nasal 2 spray intranasal DAILY 30 days 11/21/22 spray #8.43 mL ipratropium 0.5 mg-albuterol 3 mg 3 ml inhalation Q6H PRN for 03/30/23 (2.5 mg base)/3 mL nebulization wheezing #180 mL soln budesonide 0.5 mg/2 mL suspension 0.5 mg (2 mL) inhalation BID 30 05/21/23 for nebulization days #120 mL acetaminophen 500 mg tablet 500 mg PO Q6H PRN fever or pain 08/10/23 #14 tabs sennosides 8.6 mg-docusate sodium 2 tab-cap (2 x 8.6-50 mg) PO 08/16/23 50 mg tablet (Senna with Docusate BEDTIME PRN constipation 60 days Sodium) #120 tabs fluticasone propionate 115 2 puff PO Q12H #12 ea 12/11/23 mcg-salmeterol 21 mcg/actuation HFA inhaler (Advair HFA) lubiprostone 8 mcg capsule 8 mcg PO BID 30 days #60 caps 03/31/24 (Amitiza) alirocumab 75 mg/mL subcutaneous 75 mg subcut Q14D 90 days #6 mL 05/30/24 pen injector (Praluent Pen) carvedilol 3.125 mg tablet 3.125 mg PO BID #60 tabs 05/30/24 clopidogrel 75 mg tablet 75 mg PO DAILY #90 tabs 05/30/24 Allergies Allergy/AdvReac Type Severity Reaction Status Date / Time fluticasone [Flovent HFA] Allergy Unknown lip Verified 07/10/24 01:45 swelling lisinopril Allergy Itching Verified 07/10/24 01:45 evolocumab AdvReac Intermediate Hypertensio Verified 07/10/24 01:45 [From Repatha SureClick] n umeclidinium AdvReac Intermediate Chest Pain Verified 07/10/24 01:45 [From Incruse Ellipta] empagliflozin [Jardiance] AdvReac Unknown vaginal Verified 07/10/24 01:45 itch metformin AdvReac Unknown stomach Verified 07/10/24 01:45 pain sitagliptin [Januvia] AdvReac Unknown stomach Verified 07/10/24 01:45 pain acetaminophen [From Percocet] AdvReac Nausea and Verified 07/10/24 01:45 Vomiting hydrocodone [From Vicodin] AdvReac Nausea and Verified 07/10/24 01:45 Vomiting ibuprofen [From Motrin] AdvReac Stomach Verified 07/10/24 01:45 Upset oxycodone [From Percocet] AdvReac Nausea and Verified 07/05/24 23:41 Vomiting Review of Systems 2 Review of Systems: All other systems are reviewed and are negative Constitutional: Reports as per HPI and Reports no additional constitutional complaints Eyes: Reports as per HPI and Reports no additional eye complaints Reports system reviewed and no additional complaints, except as documented Cardiovascular: Reports as per HPI and Reports no additional cardiovascular complaints Respiratory: Reports as per HPI and Reports no additional respiratory complaints Gastrointestinal: Reports as per HPI and Reports no additional gastrointestinal complaints Genitourinary: Reports no additional female genitourinary complaints Musculoskeletal: Reports no additional musculoskeletal complaints Skin/Breast: Reports system reviewed and no additional complaints, except as docu Psychiatric: Reports no additional psychiatric complaints Endocrine: Reports no additional endocrine complaints Hematologic/Lymphatic: Reports no additional hematologic/lymphatic complaints Allergic/Immunologic: Reports no additional allergic/immunologic complaints Reports system reviewed and no additional complaints, except as documented and Reports Abnormal speech present [facility] Past Medical History Medical History Dysphagia Tracheobronchomalacia ROXIE (obstructive sleep apnea) Essential hypertension Atherosclerotic cardiovascular disease Urinary incontinence Obese Dyslipidemia Anxiety and depression Gastric pain Sinusitis Chronic allergic rhinitis Asthma Cough Cough Diabetes mellitus Fibromyalgia Pulmonary nodules Surgical History H/O heart artery stent Hx of esophagogastroduodenoscopy History of bronchoscopy Hx of colonoscopy H/O left knee surgery H/O breast biopsy H/O: hysterectomy Family History Family History Father Hypertension Mother Hypertension Diabetes Daughter Diabetes Brother No problems noted. Social History Social History Household Members: Children Unable to assess alcohol history related to: Unknown Alcohol intake: former Patient Tobacco Use Status: Never used Tobacco Smoked in Last 30 Days: No Second Hand Smoke Exposure: Yes Use of substances other than those prescribed or required for medical reasons: No Advance Directives: No Advance Directives Information Provided: Yes Physical Exam ED Vital Signs: Vital Signs - 24 hr 07/10/24 01:42 07/10/24 01:46 07/10/24 03:39 Temperature 98.3 F 98.3 F 97.9 F Pulse Rate 69 69 56 Respiratory Rate 16 16 20 Blood Pressure 146/62 H 146/62 H 148/52 H Pulse Oximetry 97 97 96 Oxygen Delivery Method Room Air Room Air Room Air 07/10/24 05:47 Temperature 97.9 F Pulse Rate 61 Respiratory Rate 16 Blood Pressure 154/56 H Pulse Oximetry 97 Oxygen Delivery Method Room Air BMI result Body Mass Index 25.8 Vital signs have been reviewed and appear to be correct. Blood pressure elevated. Heart rate normal. Respiratory rate normal. Temperature normal. Oxygen saturation normal. Appearance: Alert. Oriented X3. No acute distress. Head: Normal external exam. Normocephalic. Atraumatic. No William signs noted. No raccoon eyes noted Eyes: PERRLA. EOMI. Conjunctiva and sclera normal. Eyelids normal. ENT: TM's Normal. Pharynx normal. Uvula midline. Moist mucous membranes. No trismus noted. No drooling noted. No muffled voice noted. Neck: Normal inspection. Neck supple. FROM. No adenopathy. Thyroid Normal. No meningeal signs. No neck mass noted. CVS: Normal heart rate and rhythm. Heart sound normal. No murmurs noted. Pulses normal throughout. Respiratory: No respiratory distress. Painless inspiration. Breath sounds normal. No wheezes/rales/rhonchi noted. Chest nontender. No accessory muscle usage noted or decreased air movement noted. Abdomen: Soft and nontender. Bowel sounds normal in all 4 quadrants. No distention noted. No organomegaly noted. No visible injury noted. Back: No CVA tenderness. Full range of motion noted. Skin: Skin warm and dry. Normal skin color. Normal skin turgor. No rashes/lesions/lacerations noted. Extremities: No lower extremity edema. Extremities exhibit normal range of motion. Extremities nontender. Neuro: Oriented X 3. Cranial nerve exam: II-XII are grossly intact No motor deficit. No sensory deficit. Reflexes normal. Course Reevaluation(s) Reevaluation #1: Patient feels better, improvement of chest pain and abdominal pain with nausea, VSS. Labs at baseline normal for the patient. Time: 05:00 Medications Administered Discontinued Medications Generic Name Dose Route Start Last Admin Trade Name Zacariasq PRN Reason Stop Dose Admin Al Hydroxide/Mg Hydroxide 30 ml 07/10/24 01:54 07/10/24 02:10 Magnesium Hydrox/Alum Hydrox 30 Ml Oral.Susp PO 07/10/24 01:55 30 ml ONCE ONE Administration Famotidine 20 mg 07/10/24 01:54 07/10/24 02:10 Famotidine/Pf 20 Mg/2 Ml Vial IVPUSH 07/10/24 01:55 20 mg ONCE ONE Administration Medical Decision Making Differential Diagnosis Differential Diagnoses: The differential diagnosis associated with the presentation includes (ACS, gastritis, gallbladder disease, electrolyte derangement, severe anemia.) Admission/Observation Consideration of admission/observation: Escalation of care including admission/observation considered Lab Data MDM Lab Attestation statement: I reviewed the patient's lab results. 07/10/24 02:01 07/10/24 02:03 Labs: Lab Results 07/10/24 07/10/24 07/10/24 Range/Units 02:01 02:03 02:15 WBC 7.9 (4.8-10.8) X10*3/uL RBC 4.23 (4.20-5.50) X10*6/uL Hgb 13.4 (12.0-16.0) g/dl Hct 36.5 L (37.0-47.0) % MCV 86.3 (80.0-98.0) fL MCH 31.7 (27.0-33.0) pg MCHC 36.7 H (31.0-35.0) g/dl RDW 13.0 (11.0-16.0) % Plt Count 181 (160-400) X10*3/uL MPV 10.8 (9.4-12.3) fL Immature Gran % (Auto) 0.3 (0.0-0.4) % Neut % (Auto) 59.1 (45-73) % Lymph % (Auto) 31.2 (20-40) % [place] % (Auto) 7.0 (2-11) % Eos % (Auto) 1.8 (0-4) % Baso % (Auto) 0.6 (0-2) % Lymph # (Auto) 2.5 (1.2-4.9) X10*3/uL [place] # (Auto) 0.6 (0.1-1.2) X10*3/uL Eos # (Auto) 0.1 (0.0-0.4) X10*3/uL Baso # (Auto) 0.1 (0.0-0.2) X10*3/uL Abs Immat Gran (auto) 0.02 (0.00-0.03) X10*3/uL Absolute Neuts (auto) 4.7 (2.0-8.3) x10*3/uL Absolute Nucleated RBC 0.000 (0.0-0.012) X10*3/uL Nucleated RBC % (auto) 0.0 (0.0-0.2) /100WBC Sodium 136 (135-145) mmol/L Potassium 4.3 (3.3-5.1) mmol/L Chloride 104 (96-108) mmol/L Carbon Dioxide 23 (22-29) mmol/L Anion Gap 13 (12-20) BUN 30 H (9-16) mg/dL Creatinine 1.11 (0.5-1.4) mg/dL Estim Creat Clear Calc 33.7 Estimated GFR 48 Random Glucose 233 H (60-115) mg/dL Calcium 9.4 (8.4-10.2) mg/dL Total Bilirubin 0.3 (0.0-1.0) mg/dL Direct Bilirubin 0.2 (0.0-0.5) mg/dL AST 26 (5-31) U/L ALT 28 (0-31) U/L Alkaline Phosphatase 52 (39-117) U/L Troponin I High Sens 11.0 (<3.5-17.0) ng/L B-Natriuretic Peptide 31 (<100) pg/mL Total Protein 6.8 (6.5-8.0) g/dL Albumin 3.9 (3.5-5.0) g/dL Lipase 13 (8-78) U/L Urine Color Yellow Urine Appearance Clear Urine pH 5.5 (5.0-9.0) Ur Specific [place] 1.010 (1.005-1.025) Urine Protein Negative (Neg-Trace) mg/dL Urine Glucose (UA) Negative (Negative) mg/dL Urine Ketones Negative (Negative) mg/dL Urine Blood Negative (Negative) Urine Nitrite Negative (Negative) Ur Leukocyte Esterase Negative (Negative) 07/10/24 Range/Units 03:44 WBC (4.8-10.8) X10*3/uL RBC (4.20-5.50) X10*6/uL Hgb (12.0-16.0) g/dl Hct (37.0-47.0) % MCV (80.0-98.0) fL MCH (27.0-33.0) pg MCHC (31.0-35.0) g/dl RDW (11.0-16.0) % Plt Count (160-400) X10*3/uL MPV (9.4-12.3) fL Immature Gran % (Auto) (0.0-0.4) % Neut % (Auto) (45-73) % Lymph % (Auto) (20-40) % [place] % (Auto) (2-11) % Eos % (Auto) (0-4) % Baso % (Auto) (0-2) % Lymph # (Auto) (1.2-4.9) X10*3/uL [place] # (Auto) (0.1-1.2) X10*3/uL Eos # (Auto) (0.0-0.4) X10*3/uL Baso # (Auto) (0.0-0.2) X10*3/uL Abs Immat Gran (auto) (0.00-0.03) X10*3/uL Absolute Neuts (auto) (2.0-8.3) x10*3/uL Absolute Nucleated RBC (0.0-0.012) X10*3/uL Nucleated RBC % (auto) (0.0-0.2) /100WBC Sodium (135-145) mmol/L Potassium (3.3-5.1) mmol/L Chloride (96-108) mmol/L Carbon Dioxide (22-29) mmol/L Anion Gap (12-20) BUN (9-16) mg/dL Creatinine (0.5-1.4) mg/dL Estim Creat Clear Calc Estimated GFR Random Glucose (60-115) mg/dL Calcium (8.4-10.2) mg/dL Total Bilirubin (0.0-1.0) mg/dL Direct Bilirubin (0.0-0.5) mg/dL AST (5-31) U/L ALT (0-31) U/L Alkaline Phosphatase (39-117) U/L Troponin I High Sens 10.9 (<3.5-17.0) ng/L B-Natriuretic Peptide (<100) pg/mL Total Protein (6.5-8.0) g/dL Albumin (3.5-5.0) g/dL Lipase (8-78) U/L Urine Color Urine Appearance Urine pH (5.0-9.0) Ur Specific [place] (1.005-1.025) Urine Protein (Neg-Trace) mg/dL Urine Glucose (UA) (Negative) mg/dL Urine Ketones (Negative) mg/dL Urine Blood (Negative) Urine Nitrite (Negative) Ur Leukocyte Esterase (Negative) Independent Interpretation I performed an independent interpretation of an: Plain X-Ray (Chest: No acute intrathoracic pathology.) Radiology Impression Discussion of test interpretation with radiology: I have reviewed the radiologist's reading. Discharge Plan Discharge Clinical Impression: Anxiety Patient Disposition: Home, Self-Care Instructions: Anxiety (ED) Prescriptions: No Action (DME) lancets [OneTouch UltraSoft Lancets] Misc See Rx Instructions .ROUTE .MEDSUPPLY Qty: 100 Rx Instructions: As directed (DME) blood-glucose meter [OneTouch Verio Meter] Misc See Rx Instructions .ROUTE .MEDSUPPLY Qty: 1 0RF Rx Instructions: As directed (DME) OneTouch Verio test strips Strip See Rx Instructions .ROUTE .MEDSUPPLY Qty: 100 0RF Rx Instructions: As directed (DME) Aerochamber MV Spacer See Rx Instructions .ROUTE .MEDSUPPLY Qty: 1 0RF Rx Instructions: As directed ipratropium-albuterol 0.5 mg-3 mg(2.5 mg base)/3 mL solution for nebulization 3 ml inhalation Q6H PRN (Reason: for wheezing) Qty: 180 2RF fluticasone propion-salmeterol [Advair HFA] 115-21 mcg/actuation HFA aerosol inhaler 2 puff PO Q12H Qty: 12 11RF acetaminophen 500 mg tablet 500 mg PO Q6H PRN (Reason: fever or pain) Qty: 14 0RF simethicone [Gas Relief Extra Strength] 125 mg capsule 0 mg PO spironolactone 25 mg tablet 25 mg PO DAILY (DME) pen needle, diabetic 32 gauge x 5/32 needle See Rx Instructions .ROUTE .MEDSUPPLY Qty: 50 Rx Instructions: As directed pioglitazone 45 mg tablet 45 mg PO DAILY albuterol sulfate [Ventolin HFA] 90 mcg/actuation HFA aerosol inhaler 2 puff PO Q4H PRN (Reason: for wheezing) 30 Days Qty: 18 6RF budesonide 32 mcg/actuation spray,non-aerosol 2 spray intranasal DAILY 30 Days Qty: 8.43 7RF Rx Instructions: administer into each nostril budesonide 0.5 mg/2 mL suspension for nebulization 0.5 mg inhalation BID 30 Days Qty: 120 11RF Lantus Solostar U-100 Insulin 100 unit/mL (3 mL) insulin pen 20 unit subcut DAILY lubiprostone [Amitiza] 8 mcg capsule 8 mcg PO BID 30 Days Qty: 60 3RF carvedilol 3.125 mg tablet 3.125 mg PO BID Qty: 60 5RF Rx Instructions: must administer with a meal/food BP medication clopidogrel 75 mg tablet 75 mg PO DAILY Qty: 90 3RF Rx Instructions: Blood thinner for heart Praluent Pen 75 mg/mL pen injector 75 mg subcut Q14D 90 Days Qty: 6 3RF Rx Instructions: No longer taking Repatha - reports side effects latanoprost 0.005 % drops 1 drp ophthalmic (eye) BEDTIME sertraline 50 mg tablet 50 mg PO DAILY ipratropium bromide 21 mcg (0.03 %) spray,non-aerosol intranasal sennosides-docusate sodium [Senna with Docusate Sodium] 8.6-50 mg tablet 2 tab-cap PO BEDTIME PRN (Reason: constipation) 60 Days Qty: 120 2RF Rx Instructions: Please take every other day at bedtime Print Language: Chinese
[2024-07-10 02:26] LABS: Appearance Urine Clear; Color Urine Yellow; Glucose Urine UA Negative (Negative); Leukocyte Esterase Urine Negative (Negative); Nitrite Urine Negative (Negative); PH 5.5 (5.0-9.0); Urine Blood Negative (Negative); Urine Ketones Negative (Negative); Urine Protein Negative (Neg-Trace)
[2024-07-10 02:35] LABS: B Type Natriuretic Peptide 31 pg/mL (<100)
[2024-07-10 02:41] LABS: Alanine Aminotransferase 28 U/L (0-31); Albumin Level 3.9 g/dL (3.5-5.0); Alkaline Phosphatase 52 U/L (39-117); Anion Gap 13 (12-20); Aspartate Amino Transferase 26 U/L (5-31); Bilirubin Direct 0.2 mg/dL (0.0-0.5); Bilirubin Total 0.3 mg/dL (0.0-1.0); Blood Urea Nitrogen 30 mg/dL (9-16); Calcium 9.4 mg/dL (8.4-10.2); Carbon Dioxide 23 mmol/L (22-29); Chloride 104 mmol/L (96-108); Creatinine Clr Calc Pharmacy 33.7; Estimated Glomerular Filt Rate 48; Glucose Random 233 mg/dL (60-115); Lipase 13 U/L (8-78); Potassium 4.3 mmol/L (3.3-5.1); Sodium 136 mmol/L (135-145); Total Protein 6.8 g/dL (6.5-8.0)
[2024-07-10 03:39] VITALS: BP 148/52; PULSE 56; RESP 20; TEMP 36.6; O2SAT 96
[2024-07-10 04:13] LABS: Troponin-I High Sensitivity 10.9 ng/L (<3.5-17.0)
[2024-07-10 05:47] VITALS: BP 154/56; PULSE 61; RESP 16; TEMP 36.6; O2SAT 97
[2024-07-10 06:14] VITALS: BP 154/56; PULSE 61; RESP 16; TEMP 36.6; O2SAT 97
== END 2024-07-10 06:57 | disposition home or self-care (01) ==
PROVIDERS: Emergency Provider Emergency Medicine; PCP Internal Medicine
DX: F41.9 Anxiety disorder, unspecified (principal); R10.13 Epigastric pain; R11.0 Nausea
CPT/HCPCS: 36415; 71045; 80048; 80076; 81003; 83690; 83880; 84484; 85025; 93005; 96374; 99284; J1308

== ENCOUNTER → 2024-07-10 01:54 | Outpatient (BNV) | payer OTHER, SELFPAY | PROVIDERS: Emergency Provider Emergency Medicine; PCP Internal Medicine; Visit Provider Internal Medicine Cardiovascular Disease | DX: R00.1 Bradycardia, unspecified (principal); I25.2 Old myocardial infarction | CPT/HCPCS: 93010 ==

== ENCOUNTER → 2024-07-10 01:54 | Outpatient (BNV) | payer OTHER, SELFPAY | PROVIDERS: Emergency Provider Emergency Medicine; PCP Internal Medicine; Visit Provider General Practice | DX: R10.13 Epigastric pain (principal) | CPT/HCPCS: 71045 ==

== ENCOUNTER 2024-07-21 13:14 | Emergency (ER) | payer OTHER, SELFPAY ==
--- NOTE | ~2024-07-21 | XR_ITS ---
CLINICAL HISTORY: abdo pain, vomiting Abdominal radiographs Comparison: None Findings: There is a nonobstructive bowel gas pattern. Stool quantity is normal. No pneumoperitoneum or pneumatosis. 1.8 cm right lower quadrant calcification, likely soft tissue. No acute osseous or soft tissue abnormality. Impression: No acute findings. This document has been electronically signed by: Kendra Harding MD on 07/21/2024 15:36:36
[2024-07-21 13:22] VITALS: BP 152/66; BP 160/54; PULSE 61; PULSE 76; RESP 18; TEMP 37; O2SAT 96; O2SAT 98; BMI 24.7
[2024-07-21 13:25] VITALS: BP 160/54; PULSE 61; RESP 18; TEMP 37; O2SAT 96
--- NOTE | 2024-07-21 13:55 | ED_ITS ---
HPI - General Adult General Chief complaint: Abdominal Pain Stated complaint: STOMACH ACHE Time Seen by Provider: 07/21/24 13:54 History of Present Illness ED Provider: Scot DAVIDSON narrative: The patient is a 78-year-old woman who has a history of frequent ER visits. She comes to the emergency room today complaining of abdominal pain that she describes as fairly chronic. She has been on multiple medications for problems with a chronic abdominal pains and also for chronic constipation. Comes today saying that she is having upper abdominal pain. She says she vomited last night. She called an ambulance today because she was feeling unwell. No definite fevers. No cough or sputum. Related Data Home Medications ?Medication ?Instructions ?Recorded ?Confirmed lancets (Romans GroupTouch UltraSoft #100 ea 01/06/20 05/30/24 Lancets) pen needle, diabetic 32 gauge x #50 ea 08/17/20 05/30/24 simethicone 125 mg capsule (Gas 0 mg PO 11/26/20 05/30/24 Relief Extra Strength) spironolactone 25 mg tablet 25 mg PO DAILY 11/26/20 05/30/24 latanoprost 0.005 % eye drops 1 drp ophthalmic (eye) BEDTIME 07/26/22 05/30/24 pioglitazone 45 mg tablet 45 mg PO DAILY 11/21/22 05/30/24 sertraline 50 mg tablet 50 mg PO DAILY 06/18/23 05/30/24 ipratropium bromide 21 mcg (0.03 intranasal 08/16/23 05/30/24 %) nasal spray insulin glargine 100 unit/mL (3 20 unit subcut DAILY 10/10/23 05/30/24 mL) subcutaneous pen (Lantus Solostar U-100 Insulin) Previous Rx's ?Medication ?Instructions ?Recorded blood sugar diagnostic (Romans GroupTouch #100 ea 01/07/20 Verio test strips) blood-glucose meter (OneTouch #1 ea 01/07/20 Verio Meter) inhalational spacing device #1 ea 01/25/21 (Aerochamber MV spacer) albuterol sulfate 90 mcg/actuation 2 puff PO Q4H PRN for wheezing 30 11/21/22 aerosol inhaler (Ventolin HFA) days #18 ea budesonide 32 mcg/actuation nasal 2 spray intranasal DAILY 30 days 11/21/22 spray #8.43 mL ipratropium 0.5 mg-albuterol 3 mg 3 ml inhalation Q6H PRN for 03/30/23 (2.5 mg base)/3 mL nebulization wheezing #180 mL soln budesonide 0.5 mg/2 mL suspension 0.5 mg (2 mL) inhalation BID 30 05/21/23 for nebulization days #120 mL acetaminophen 500 mg tablet 500 mg PO Q6H PRN fever or pain 08/10/23 #14 tabs sennosides 8.6 mg-docusate sodium 2 tab-cap (2 x 8.6-50 mg) PO 08/16/23 50 mg tablet (Senna with Docusate BEDTIME PRN constipation 60 days Sodium) #120 tabs fluticasone propionate 115 2 puff PO Q12H #12 ea 12/11/23 mcg-salmeterol 21 mcg/actuation HFA inhaler (Advair HFA) lubiprostone 8 mcg capsule 8 mcg PO BID 30 days #60 caps 03/31/24 (Amitiza) alirocumab 75 mg/mL subcutaneous 75 mg subcut Q14D 90 days #6 mL 05/30/24 pen injector (Praluent Pen) carvedilol 3.125 mg tablet 3.125 mg PO BID #60 tabs 05/30/24 clopidogrel 75 mg tablet 75 mg PO DAILY #90 tabs 05/30/24 sucralfate 1 gram tablet 1 g PO BID PRN Upper abdominal 07/21/24 pain #60 tabs Allergies Allergy/AdvReac Type Severity Reaction Status Date / Time fluticasone [Flovent HFA] Allergy Unknown lip Verified 07/21/24 13:24 swelling lisinopril Allergy Itching Verified 07/21/24 13:24 evolocumab AdvReac Intermediate Hypertensio Verified 07/21/24 13:24 [From Repatha SureClick] n umeclidinium AdvReac Intermediate Chest Pain Verified 07/21/24 13:24 [From Incruse Ellipta] empagliflozin [Jardiance] AdvReac Unknown vaginal Verified 07/21/24 13:24 itch metformin AdvReac Unknown stomach Verified 07/21/24 13:24 pain sitagliptin [Januvia] AdvReac Unknown stomach Verified 07/21/24 13:24 pain acetaminophen [From Percocet] AdvReac Nausea and Verified 07/21/24 13:24 Vomiting hydrocodone [From Vicodin] AdvReac Nausea and Verified 07/21/24 13:24 Vomiting ibuprofen [From Motrin] AdvReac Stomach Verified 07/21/24 13:24 Upset oxycodone [From Percocet] AdvReac Nausea and Verified 07/21/24 13:24 Vomiting Review of Systems 2 Review of Systems: Yes all other systems are reviewed and are negative [facility] Past Medical History Medical History Dysphagia Tracheobronchomalacia ROXIE (obstructive sleep apnea) Essential hypertension Atherosclerotic cardiovascular disease Urinary incontinence Obese Dyslipidemia Anxiety and depression Gastric pain Sinusitis Chronic allergic rhinitis Asthma Cough Cough Diabetes mellitus Fibromyalgia Pulmonary nodules Surgical History H/O heart artery stent Hx of esophagogastroduodenoscopy History of bronchoscopy Hx of colonoscopy H/O left knee surgery H/O breast biopsy H/O: hysterectomy Family History Family History Father Hypertension Mother Hypertension Diabetes Daughter Diabetes Brother No problems noted. Social History Social History Household Members: Children Unable to assess alcohol history related to: Unknown Alcohol intake: former Patient Tobacco Use Status: Never used Tobacco Second Hand Smoke Exposure: Yes Advance Directives: No Advance Directives Information Provided: Yes Do you have a plan to hurt others: No Plan Physical Exam ED Vital Signs: Vital Signs - 24 hr 07/21/24 13:22 07/21/24 13:25 07/21/24 15:11 Temperature 98.6 F 98.6 F 98.2 F Pulse Rate 61 61 48 L Respiratory Rate 18 18 18 Blood Pressure 160/54 H 160/54 H 146/49 H Pulse Oximetry 96 96 100 Oxygen Delivery Method Room Air Room Air Room Air 07/21/24 15:27 Temperature 98.2 F Pulse Rate 48 L Respiratory Rate 18 Blood Pressure 146/49 H Pulse Oximetry 100 Oxygen Delivery Method Room Air BMI result Body Mass Index 24.7 Const Other: The patient is awake and alert. She has an anxious affect. She does not seem in distress. HENMT Other: Face is symmetrical. Mucous membranes moist. Eyes General: appearance normal, both eyes and all related structures Neck Neck: Yes normal visual inspection and Yes no JVD Resp Effort & Inspection: normal respiratory effort Auscultation: clear to auscultation bilaterally Cardio Rate: regular rate Rhythm: regular rhythm Heart sounds: S1 normal heart sound present and S2 normal heart sound present GI Other: Abdomen is soft and nontender. Skin Other: Skin is dry and unremarkable Neuro Other: The patient is awake and alert. She is very talkative. Mental status is clear although she seems very anxious. Cranial nerves are grossly intact. She moves her extremities normally and appropriately. Extrem Other: No peripheral edema Medications Administered Discontinued Medications Generic Name Dose Route Start Last Admin Trade Name Freq PRN Reason Stop Dose Admin Sucralfate 1 gm 07/21/24 14:03 07/21/24 14:19 Sucralfate Oral Suspension 1 Gm/10 Ml Oral.Susp PO 07/21/24 14:04 1 gm ONCE ONE Administration Medical Decision Making Medical Decision Making [facility] Narrative: The patient is a 78-year-old woman who presents for evaluation of upper abdominal pain. Clinically she looks well. She has a benign abdomen. Labs are unremarkable. She seemed to feel somewhat better after a dose of sucralfate. I suspect there is a strong component of anxiety to the patient's presentation. The patient will be discharged with a prescription for sucralfate. She should continue her other medications including her current proton pump inhibitor.. She should follow up with her PCP. She should return if worse. Lab Data 07/21/24 14:32 07/21/24 14:32 Labs: Lab Results 07/21/24 07/21/24 Range/Units 14:32 15:18 WBC 8.8 (4.8-10.8) X10*3/uL RBC 4.79 (4.20-5.50) X10*6/uL Hgb 14.9 (12.0-16.0) g/dl Hct 41.7 (37.0-47.0) % MCV 87.1 (80.0-98.0) fL MCH 31.1 (27.0-33.0) pg MCHC 35.7 H (31.0-35.0) g/dl RDW 13.1 (11.0-16.0) % Plt Count 217 (160-400) X10*3/uL MPV 10.3 (9.4-12.3) fL Immature Gran % (Auto) 0.2 (0.0-0.4) % Neut % (Auto) 65.5 (45-73) % Lymph % (Auto) 26.6 (20-40) % Bowman % (Auto) 6.3 (2-11) % Eos % (Auto) 0.8 (0-4) % Baso % (Auto) 0.6 (0-2) % Lymph # (Auto) 2.3 (1.2-4.9) X10*3/uL Bowman # (Auto) 0.6 (0.1-1.2) X10*3/uL Eos # (Auto) 0.1 (0.0-0.4) X10*3/uL Baso # (Auto) 0.1 (0.0-0.2) X10*3/uL Abs Immat Gran (auto) 0.02 (0.00-0.03) X10*3/uL Absolute Neuts (auto) 5.7 (2.0-8.3) x10*3/uL Absolute Nucleated RBC 0.000 (0.0-0.012) X10*3/uL Nucleated RBC % (auto) 0.0 (0.0-0.2) /100WBC Sodium 140 (135-145) mmol/L Potassium 4.4 (3.3-5.1) mmol/L Chloride 106 (96-108) mmol/L Carbon Dioxide 25 (22-29) mmol/L Anion Gap 13 (12-20) BUN 17 H (9-16) mg/dL Creatinine 0.75 (0.5-1.4) mg/dL Estim Creat Clear Calc 53.4 Estimated GFR > 60 POC Glucose 131 H (60-115) mg/dL Random Glucose 137 H (60-115) mg/dL Calcium 10.1 D (8.4-10.2) mg/dL Total Bilirubin 0.5 (0.0-1.0) mg/dL Direct Bilirubin 0.2 (0.0-0.5) mg/dL AST 26 (5-31) U/L ALT 28 (0-31) U/L Alkaline Phosphatase 47 (39-117) U/L C-Reactive Protein 0.44 (< or = 0.50) mg/dL Total Protein 7.5 (6.5-8.0) g/dL Albumin 4.5 (3.5-5.0) g/dL Lipase 6 L (8-78) U/L Urine Color Yellow Urine Appearance Clear Urine pH 6.0 (5.0-9.0) Ur Specific [place] 1.010 (1.005-1.025) Urine Protein Negative (Neg-Trace) mg/dL Urine Glucose (UA) Negative (Negative) mg/dL Urine Ketones Negative (Negative) mg/dL Urine Blood Negative (Negative) Urine Nitrite Negative (Negative) Ur Leukocyte Esterase Negative (Negative) Discharge Plan Discharge Clinical Impression: Epigastric abdominal pain Patient Disposition: Home, Self-Care Additional Instructions: Your testing in the emergency room today is very reassuring. Please continue all of your regular medications. Your sent a prescription for a new medication, sucralfate (also known as Carafate). This medication can help soothe irritation of the lining of the stomach. You may use this medication on an as-needed basis up to twice a day. Please make a follow up appointment with your regular doctor to discuss this episode further. Return to the emergency room if significantly worse. Prescriptions: New sucralfate 1 gram tablet 1 g PO BID PRN (Reason: Upper abdominal pain) Qty: 60 0RF No Action (DME) lancets [OneTouch UltraSoft Lancets] [facility] See Rx Instructions .ROUTE .MEDSUPPLY Qty: 100 Rx Instructions: As directed (DME) blood-glucose meter [OneTouch Verio Meter] [facility] See Rx Instructions .ROUTE .MEDSUPPLY Qty: 1 0RF Rx Instructions: As directed (DME) OneTouch Verio test strips Strip See Rx Instructions .ROUTE .MEDSUPPLY Qty: 100 0RF Rx Instructions: As directed (DME) Aerochamber MV Spacer See Rx Instructions .ROUTE .MEDSUPPLY Qty: 1 0RF Rx Instructions: As directed ipratropium-albuterol 0.5 mg-3 mg(2.5 mg base)/3 mL solution for nebulization 3 ml inhalation Q6H PRN (Reason: for wheezing) Qty: 180 2RF fluticasone propion-salmeterol [Advair HFA] 115-21 mcg/actuation HFA aerosol inhaler 2 puff PO Q12H Qty: 12 11RF acetaminophen 500 mg tablet 500 mg PO Q6H PRN (Reason: fever or pain) Qty: 14 0RF simethicone [Gas Relief Extra Strength] 125 mg capsule 0 mg PO spironolactone 25 mg tablet 25 mg PO DAILY (DME) pen needle, diabetic 32 gauge x 5/32 needle See Rx Instructions .ROUTE .MEDSUPPLY Qty: 50 Rx Instructions: As directed pioglitazone 45 mg tablet 45 mg PO DAILY albuterol sulfate [Ventolin HFA] 90 mcg/actuation HFA aerosol inhaler 2 puff PO Q4H PRN (Reason: for wheezing) 30 Days Qty: 18 6RF budesonide 32 mcg/actuation spray,non-aerosol 2 spray intranasal DAILY 30 Days Qty: 8.43 7RF Rx Instructions: administer into each nostril budesonide 0.5 mg/2 mL suspension for nebulization 0.5 mg inhalation BID 30 Days Qty: 120 11RF Lantus Solostar U-100 Insulin 100 unit/mL (3 mL) insulin pen 20 unit subcut DAILY lubiprostone [Amitiza] 8 mcg capsule 8 mcg PO BID 30 Days Qty: 60 3RF carvedilol 3.125 mg tablet 3.125 mg PO BID Qty: 60 5RF Rx Instructions: must administer with a meal/food BP medication clopidogrel 75 mg tablet 75 mg PO DAILY Qty: 90 3RF Rx Instructions: Blood thinner for heart Praluent Pen 75 mg/mL pen injector 75 mg subcut Q14D 90 Days Qty: 6 3RF Rx Instructions: No longer taking Repatha - reports side effects latanoprost 0.005 % drops 1 drp ophthalmic (eye) BEDTIME sertraline 50 mg tablet 50 mg PO DAILY ipratropium bromide 21 mcg (0.03 %) spray,non-aerosol intranasal sennosides-docusate sodium [Senna with Docusate Sodium] 8.6-50 mg tablet 2 tab-cap PO BEDTIME PRN (Reason: constipation) 60 Days Qty: 120 2RF Rx Instructions: Please take every other day at bedtime Referrals: Liset Mitchell MD [Primary Care Provider] - (Epigastric pain, anxiety) Interventions: ED Discharge Assessment Last Done: 07/21/24 15:27 Discharge Date/Time: 07/21/24 15:49 Print Language: Maltese
--- NOTE | 2024-07-21 14:03 | ECG_ITS ---
Test Reason : ABD PAIN Blood Pressure : */* mmHG Vent. 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
[2024-07-21] MEDS: Sucralfate Oral Suspension 1 GM/10 ML ORAL.SUSP PO (14:19)
[2024-07-21 14:39] LABS: MANUAL DIFF FLAG NO
[2024-07-21 14:40] LABS: Basophils Absolute Auto 0.1 X10*3/uL (0.0-0.2); Basophils Percent Auto 0.6 % (0-2); Eosinophils Absolute Auto 0.1 X10*3/uL (0.0-0.4); Eosinophils Percent Auto 0.8 % (0-4); Hematocrit 41.7 % (37.0-47.0); Hemoglobin 14.9 g/dl (12.0-16.0); Imm Gran Abs Auto 0.02 X10*3/uL (0.00-0.03); Imm Gran Pct Auto 0.2 % (0.0-0.4); Lymphocytes Absolute Auto 2.3 X10*3/uL (1.2-4.9); Lymphocytes Percent Auto 26.6 % (20-40); Mean Corpuscular HGB Conc 35.7 g/dl (31.0-35.0); Mean Corpuscular Hemoglobin 31.1 pg (27.0-33.0); Mean Corpuscular Volume 87.1 fL (80.0-98.0); Mean Platelet Volume 10.3 fL (9.4-12.3); Monocytes Absolute Auto 0.6 X10*3/uL (0.1-1.2); Monocytes Percent Auto 6.3 % (2-11); Neutrophils Absolute Auto 5.7 x10*3/uL (2.0-8.3); Neutrophils Percent Auto 65.5 % (45-73); Platelet Count 217 X10*3/uL (160-400); Red Blood Count 4.79 X10*6/uL (4.20-5.50); Red Cell Distribution Width 13.1 % (11.0-16.0); White Blood Count 8.8 X10*3/uL (4.8-10.8)
[2024-07-21 14:42] LABS: Appearance Urine Clear; Color Urine Yellow; Glucose Urine UA Negative (Negative); Leukocyte Esterase Urine Negative (Negative); Nitrite Urine Negative (Negative); Urine Blood Negative (Negative); Urine Ketones Negative (Negative); Urine Protein Negative (Neg-Trace)
[2024-07-21 15:03] LABS: Alanine Aminotransferase 28 U/L (0-31); Albumin Level 4.5 g/dL (3.5-5.0); Alkaline Phosphatase 47 U/L (39-117); Anion Gap 13 (12-20); Aspartate Amino Transferase 26 U/L (5-31); Bilirubin Direct 0.2 mg/dL (0.0-0.5); Bilirubin Total 0.5 mg/dL (0.0-1.0); Blood Urea Nitrogen 17 mg/dL (9-16); C Reactive Protein 0.44 mg/dL (< or = 0.50); Calcium 10.1 mg/dL (8.4-10.2); Carbon Dioxide 25 mmol/L (22-29); Chloride 106 mmol/L (96-108); Creatinine Clr Calc Pharmacy 53.4; Estimated Glomerular Filt Rate > 60; Glucose Random 137 mg/dL (60-115); Lipase 6 U/L (8-78); Potassium 4.4 mmol/L (3.3-5.1); Sodium 140 mmol/L (135-145); Total Protein 7.5 g/dL (6.5-8.0)
[2024-07-21 15:11] VITALS: BP 146/49; PULSE 48; RESP 18; TEMP 36.8; O2SAT 100
[2024-07-21 15:23] LABS: Glucose, Whole Blood 131 mg/dL (60-115)
[2024-07-21 15:27] VITALS: BP 146/49; PULSE 48; RESP 18; TEMP 36.8; O2SAT 100
== END 2024-07-21 15:49 | disposition home or self-care (01) ==
PROVIDERS: Emergency Provider Emergency Medicine; PCP Family Medicine
DX: R10.13 Epigastric pain (principal); E11.9 Type 2 diabetes mellitus without complications; I10 Essential (primary) hypertension; E78.5 Hyperlipidemia, unspecified; J45.909 Unspecified asthma, uncomplicated; Z79.4 Long term (current) use of insulin; Z79.899 Other long term (current) drug therapy
CPT/HCPCS: 36415; 74022; 80048; 80076; 81003; 82947; 83690; 85025; 86140; 93005; 99283; 99285

== ENCOUNTER → 2024-07-21 14:03 | Outpatient (BNV) | payer OTHER, SELFPAY | PROVIDERS: Emergency Provider Emergency Medicine; PCP Family Medicine; Visit Provider Internal Medicine Cardiovascular Disease | DX: R00.1 Bradycardia, unspecified (principal); I25.2 Old myocardial infarction | CPT/HCPCS: 93010 ==

== ENCOUNTER → 2024-07-21 14:03 | Outpatient (BNV) | payer OTHER, SELFPAY | PROVIDERS: Emergency Provider Emergency Medicine; PCP Family Medicine; Visit Provider Radiology Diagnostic Radiology | DX: R10.9 Unspecified abdominal pain (principal) | CPT/HCPCS: 74022 ==

== ENCOUNTER 2024-07-28 08:30 | Outpatient (RCR) | payer OTHER, SELFPAY ==
[2024-07-07 09:39] LABS: Glucose, Whole Blood 175 mg/dL (60-115)
[2024-07-28 09:55] LABS: Glucose, Whole Blood 147 mg/dL (60-115)
[2024-07-28 09:55] LABS: Glucose, Whole Blood 117 mg/dL (60-115)
== END 2024-10-03 14:30 | disposition home or self-care (01) ==
LOC: HO.CR 08:30
PROVIDERS: PCP Family Medicine; Visit Provider Internal Medicine
DX: Z95.5 Presence of coronary angioplasty implant and graft (principal)
CPT/HCPCS: 82947; 93798

== ENCOUNTER 2024-08-01 10:21 | Emergency (ER) | payer OTHER, SELFPAY ==
[2024-08-01] VITALS (8 sets, daily range): BP systolic 122–149; BP diastolic 31–76; PULSE 55–62; RESP 14–16; TEMP 36.7; O2SAT 96–98; BMI 35.6
--- NOTE | ~2024-08-01 | XR_ITS ---
EXAMINATION: XR HIP 1 VIEW RIGHT WITH PELVIS HISTORY: atraumatic pain COMPARISON: Comparison is made with the prior examination dated 12/30/2013. FINDINGS: A single AP view of the pelvis and two views of the right hip are submitted. Osseous mineralization is normal. There is no fracture or dislocation. The joint space is maintained. There is degenerative disc disease of the lower lumbar spine. There are vascular calcifications. XR/XR hip RT w PEL1V IMPRESSION: Unremarkable examination of the right hip. Electronically signed by: Niraj Coronado MD 08/01/2024 12:57 PM EDT
--- NOTE | ~2024-08-01 | XR_ITS ---
EXAMINATION: XR LUMBOSACRAL SPINE CLINICAL INFORMATION: pain radiating to R COMPARISON: None available. Correlation made with CT abdomen and pelvis 12/27/2018. TECHNIQUE: Three views of the lumbosacral spine. FINDINGS: There is a minimal levoconvex scoliosis, apex at L3. There is straightening of the normal lordosis, with a minimal reversal seen at L3. There is a 4 mm degenerative anterolisthesis of L2 on L3, and 4 mm degenerative retrolisthesis of L3 on L4, and L4 on L5. There is a butterfly vertebra of T11 incidentally noted. There are no compression deformities, acute fractures, or suspicious bone lesions. There are scattered Schmorl's nodes within the endplates. Severe multilevel disc degeneration present. There are large ventral and lateral disc osteophytes most notable spanning L3-S1. Disc vacuum phenomenon present at all levels. Facets appear normally aligned. There are multilevel hypertrophic degenerative facet changes throughout the lumbar region. There are degenerative changes in the SI joints. The sacrum appears intact. There are vascular calcifications in the soft tissues. XR/XR lumbar spine 2-3V IMPRESSION: 1. No acute findings in the lumbar spine. 2. There is advanced degenerative lumbar spondylosis. 3. Incidentally noted butterfly vertebra of T11. Electronically signed by: Jacobo Avila MD 08/01/2024 01:02 PM EDT
--- NOTE | 2024-08-01 11:32 | ED.BACK ---
HPI - Back Pain/Injury General Chief Complaint: Back Pain/Injury Stated Complaint: RT HIP PAIN,DENIES FALL PER EMS Time Seen by Provider: 08/01/24 10:39 Source: patient and EMS Mode of arrival: EMS Limitations: language barrier (Indonesian-speaking data architect utilized) History of Present Illness ED Provider: shelley patel np HPI Narrative: Patient is a 78-year-old female with a past medical history of reported chronic low back pain, ROXIE, hypertension, ASCVD, obesity, dyslipidemia, gastritis, asthma, diabetes, fibromyalgia who presents emergency department for evaluation of right lower back pain radiating down the posterior right leg exacerbated with walking/weight-bearing. Denies any precipitating injury or recent fall. Has history of chronic low back pain, has not recently been taking any medications at home for this, denies history of pain to the hip or radiating into the leg. Denies fevers, chills, burning with micturition, urinary frequency/urgency/hesitancy, bladder or bowel dysfunction, numbness or tingling of the perineum or bilateral legs. Denies any recent surgical procedures, any known immune compromising conditions, personal history of cancer, or IV drug usage. MD elicited complaint: back pain Related Data Home Medications ?Medication ?Instructions ?Recorded ?Confirmed lancets (OneTouch UltraSoft #100 ea 01/06/20 05/30/24 Lancets) pen needle, diabetic 32 gauge x #50 ea 08/17/20 05/30/24 simethicone 125 mg capsule (Gas 0 mg PO 11/26/20 05/30/24 Relief Extra Strength) spironolactone 25 mg tablet 25 mg PO DAILY 11/26/20 05/30/24 latanoprost 0.005 % eye drops 1 drp ophthalmic (eye) BEDTIME 07/26/22 05/30/24 pioglitazone 45 mg tablet 45 mg PO DAILY 11/21/22 05/30/24 sertraline 50 mg tablet 50 mg PO DAILY 06/18/23 05/30/24 ipratropium bromide 21 mcg (0.03 intranasal 08/16/23 05/30/24 %) nasal spray insulin glargine 100 unit/mL (3 20 unit subcut DAILY 10/10/23 05/30/24 mL) subcutaneous pen (Lantus Solostar U-100 Insulin) Previous Rx's ?Medication ?Instructions ?Recorded blood sugar diagnostic (OneTouch #100 ea 01/07/20 Verio test strips) blood-glucose meter (OneTouch #1 ea 01/07/20 Verio Meter) inhalational spacing device #1 ea 01/25/21 (Aerochamber MV spacer) albuterol sulfate 90 mcg/actuation 2 puff PO Q4H PRN for wheezing 30 11/21/22 aerosol inhaler (Ventolin HFA) days #18 ea budesonide 32 mcg/actuation nasal 2 spray intranasal DAILY 30 days 11/21/22 spray #8.43 mL ipratropium 0.5 mg-albuterol 3 mg 3 ml inhalation Q6H PRN for 03/30/23 (2.5 mg base)/3 mL nebulization wheezing #180 mL soln budesonide 0.5 mg/2 mL suspension 0.5 mg (2 mL) inhalation BID 30 05/21/23 for nebulization days #120 mL acetaminophen 500 mg tablet 500 mg PO Q6H PRN fever or pain 08/10/23 #14 tabs sennosides 8.6 mg-docusate sodium 2 tab-cap (2 x 8.6-50 mg) PO 08/16/23 50 mg tablet (Senna with Docusate BEDTIME PRN constipation 60 days Sodium) #120 tabs fluticasone propionate 115 2 puff PO Q12H #12 ea 12/11/23 mcg-salmeterol 21 mcg/actuation HFA inhaler (Advair HFA) alirocumab 75 mg/mL subcutaneous 75 mg subcut Q14D 90 days #6 mL 05/30/24 pen injector (Praluent Pen) carvedilol 3.125 mg tablet 3.125 mg PO BID #60 tabs 05/30/24 clopidogrel 75 mg tablet 75 mg PO DAILY #90 tabs 05/30/24 sucralfate 1 gram tablet 1 g PO BID PRN Upper abdominal 07/21/24 pain #60 tabs lubiprostone 8 mcg capsule 8 mcg PO BID #180 caps 07/25/24 gabapentin 100 mg capsule 100 mg PO BID #14 caps 08/01/24 Allergies Allergy/AdvReac Type Severity Reaction Status Date / Time fluticasone [Flovent HFA] Allergy Unknown lip Verified 08/01/24 10:41 swelling lisinopril Allergy Itching Verified 08/01/24 10:41 evolocumab AdvReac Intermediate Hypertensio Verified 08/01/24 10:41 [From Repatha SureClick] n umeclidinium AdvReac Intermediate Chest Pain Verified 08/01/24 10:41 [From Incruse Ellipta] empagliflozin [Jardiance] AdvReac Unknown vaginal Verified 08/01/24 10:41 itch metformin AdvReac Unknown stomach Verified 08/01/24 10:41 pain sitagliptin [Januvia] AdvReac Unknown stomach Verified 08/01/24 10:41 pain acetaminophen [From Percocet] AdvReac Nausea and Verified 08/01/24 10:41 Vomiting hydrocodone [From Vicodin] AdvReac Nausea and Verified 08/01/24 10:41 Vomiting ibuprofen [From Motrin] AdvReac Stomach Verified 08/01/24 10:41 Upset oxycodone [From Percocet] AdvReac Nausea and Verified 08/01/24 10:41 Vomiting Review of Systems Review of Systems: Yes all other systems are reviewed and are negative PMFSH Past Medical History Attestation statement: The following information was validated with the patient. Source: old records reviewed Medical History Dysphagia Tracheobronchomalacia ROXIE (obstructive sleep apnea) Essential hypertension Atherosclerotic cardiovascular disease Urinary incontinence Obese Dyslipidemia Anxiety and depression Gastric pain Sinusitis Chronic allergic rhinitis Asthma Cough Cough Diabetes mellitus Fibromyalgia Pulmonary nodules Surgical History H/O heart artery stent Hx of esophagogastroduodenoscopy History of bronchoscopy Hx of colonoscopy H/O left knee surgery H/O breast biopsy H/O: hysterectomy Family History Family History Father Hypertension Mother Hypertension Diabetes Daughter Diabetes Brother No problems noted. Social History Social History Household Members: Children Unable to assess alcohol history related to: Unknown Alcohol intake: never Patient Tobacco Use Status: Never used Tobacco Smoked in Last 30 Days: No Second Hand Smoke Exposure: Yes Use of substances other than those prescribed or required for medical reasons: No Advance Directives: No Advance Directives Information Provided: Yes Physical Exam Vital Signs: Vital Signs: Last Vital Signs Temp 98.1 F 08/01/24 14:00 Pulse 55 08/01/24 14:00 Resp 15 08/01/24 14:00 BP 122/31 L 08/01/24 14:00 Pulse Ox 98 08/01/24 14:00 O2 Del Method Room Air 08/01/24 14:00 BMI result Body Mass Index 35.6 Appearance: Alert.?Oriented to person, place and time. No acute distress.?Normal affect. Eyes: Pupils equal, round and reactive to light.? ENT: Pharynx normal.?? Neck: Normal inspection.? Neck supple.?? CVS: Heart sounds normal. Normal heart rate and rhythm.? Pulses normal; bilateral radial pulses 2+, bilateral posterior tibial/dorsalis pedis pulses 2+.? Respiratory: No respiratory distress.? Lung sounds clear to auscultation bilaterally?? Abdomen: Soft and non-tender. Normoactive bowel sounds. No pulsatile mass.?? Skin: Skin warm and dry.? Normal skin color.? Normal skin turgor.?? Extremities: No lower extremity edema.? No calf ttp? Back: + mild right paraspinal muscular tenderness from lumbar region to coccyx. No CVA tenderness. No midline spinal tenderness, step-off's, or deformity. Full ROM intact in bilateral lower extremities. Straight leg test positive on right; Straight leg test negative on left. No rashes, lesions, areas of induration or fluctuance, or signs of infection noted., Neuro: Moves all extremities spontaneously. 5/5 strength in hip extension/flexion, abduction, adduction. Sensation to light touch intact bilaterally. Patellar and Achilles reflex 2+ bilaterally. No ataxia, gait normal and steady.. No focal neuro deficits. Course Reevaluation(s) Reevaluation #1: Physician observation started at this time, patient is requesting physical therapy evaluation, will have case management consultation. She expresses concern about her ability to get around safely at home she lives alone, uses a walker. She expresses some improvement in pain after receiving gabapentin in the emergency department, however endorsed difficulty with ambulation even to the restroom. XR of the lumbar spine in right hip/pelvis without acute pathology. XR/XR lumbar spine 2-3V IMPRESSION: 1. No acute findings in the lumbar spine. 2. There is advanced degenerative lumbar spondylosis. 3. Incidentally noted butterfly vertebra of T11. XR/XR hip RT w PEL1V IMPRESSION: Unremarkable examination of the right hip. Time: 14:44 Reevaluation #2: Patient did exceptionally well with physical therapy evaluation, able to ambulate unassisted. Reviewed with patient, will discharge home, family will pick her up, will send a short prescription of gabapentin for radiculopathy to the pharmacy advised outpatient follow-up with her primary care provider. All questions answered. Stable for discharge. Time: 15:54 Medications Administered Discontinued Medications Generic Name Dose Route Start Last Admin Trade Name Freq PRN Reason Stop Dose Admin Gabapentin 100 mg 08/01/24 11:33 08/01/24 11:57 Gabapentin 100 Mg Capsule PO 08/01/24 11:34 100 mg ONCE ONE Administration Medical Decision Making Medical Decision Making [facility] Narrative: Patient is a 78-year-old female with a past medical history of reported chronic low back pain, ROXIE, hypertension, ASCVD, obesity, dyslipidemia, gastritis, asthma, diabetes, fibromyalgia who presents for evaluation of right lower back/hip pain radiating down the posterior right leg as per HPI. History of chronic back pain by her account, concerning for acute on chronic pain, although she denies history of pain in his right hip I do note that she was evaluated in the emergency department October of 2023 was experiencing right hip pain at that time. Extremities neurovascularly intact distally. Pain is most consistent with radiculopathy versus muscular pain, although cannot completely exclude herniated disc. On neurological exam there are no deficits. Atraumatic in nature, no acute bony tenderness, unlikely to be spinal fracture. Exam findings not consistent with cauda equina syndrome. No recent fevers, unintentional weight loss, history of IVDA, high-risk past medical history, immunosuppression, recent surgery or lumbar puncture to suggest spinal infection, epidural abscess, malignancy. Not consistent with AAA or dissection. No genitourinary symptoms, afebrile, no CVA tenderness, unlikely urinary tract infection, pyelonephritis, renal colic. No history of nephrolithiasis/ureteral calculi. Given her age and reported history of gastritis, would avoid NSAID, low-dose corticosteroid may be of benefit however given she is diabetic and has history of gastritis would defer at this time as well. By her account muscle relaxants have made her very drowsy and lethargic in the past. Will trial a low dose of gabapentin. Differential Diagnosis Differential Diagnoses: The differential diagnosis associated with the presentation includes ( see narrative above) Admission/Observation Consideration of admission/observation: Escalation of care including admission/observation considered ( see narrative above) Radiology Impression Discussion of test interpretation with radiology: I have reviewed the radiologist's reading. External Record Review External record reviewed: Outpatient record Prescription Management I considered prescription management with: Pain Medication Chronic Conditions Patient?s care impacted by: Other (See narrative above) Discharge Plan Discharge Clinical Impression: Lumbar radiculopathy, right Patient Disposition: Home, Self-Care Instructions: Lumbar Radiculopathy (ED), Lower Back Exercises (ED) Additional Instructions: You were evaluated in the emergency department for pain involving your lower back radiating into your hip and right lower extremity, symptoms most concerning for lumbar radiculopathy. As discussed, x-ray imaging did not show acute findings today. You expressed concern about your safety to be able to go home independently, you were evaluated by physical therapy who did not feel that you met criteria for short-term rehab. You were given gabapentin in the emergency department and had improvement in your pain I am sending a short prescription to your pharmacy for this. This medication may make you drowsy. You should not drive, drink alcohol, or work while taking this medication. Please follow-up with your primary care provider early next week. You may return back to emergency department any new or worsening symptoms or concerns Prescriptions: New gabapentin 100 mg capsule 100 mg PO BID Qty: 14 0RF No Action (DME) lancets [OneTouch UltraSoft Lancets] Misc See Rx Instructions .ROUTE .MEDSUPPLY Qty: 100 Rx Instructions: As directed (DME) blood-glucose meter [OneTouch Verio Meter] Misc See Rx Instructions .ROUTE .MEDSUPPLY Qty: 1 0RF Rx Instructions: As directed (DME) OneTouch Verio test strips Strip See Rx Instructions .ROUTE .MEDSUPPLY Qty: 100 0RF Rx Instructions: As directed (DME) Aerochamber MV Spacer See Rx Instructions .ROUTE .MEDSUPPLY Qty: 1 0RF Rx Instructions: As directed ipratropium-albuterol 0.5 mg-3 mg(2.5 mg base)/3 mL solution for nebulization 3 ml inhalation Q6H PRN (Reason: for wheezing) Qty: 180 2RF fluticasone propion-salmeterol [Advair HFA] 115-21 mcg/actuation HFA aerosol inhaler 2 puff PO Q12H Qty: 12 11RF lubiprostone 8 mcg capsule 8 mcg PO BID Qty: 180 1RF sucralfate 1 gram tablet 1 g PO BID PRN (Reason: Upper abdominal pain) Qty: 60 0RF acetaminophen 500 mg tablet 500 mg PO Q6H PRN (Reason: fever or pain) Qty: 14 0RF simethicone [Gas Relief Extra Strength] 125 mg capsule 0 mg PO spironolactone 25 mg tablet 25 mg PO DAILY (DME) pen needle, diabetic 32 gauge x 5/32 needle See Rx Instructions .ROUTE .MEDSUPPLY Qty: 50 Rx Instructions: As directed pioglitazone 45 mg tablet 45 mg PO DAILY albuterol sulfate [Ventolin HFA] 90 mcg/actuation HFA aerosol inhaler 2 puff PO Q4H PRN (Reason: for wheezing) 30 Days Qty: 18 6RF budesonide 32 mcg/actuation spray,non-aerosol 2 spray intranasal DAILY 30 Days Qty: 8.43 7RF Rx Instructions: administer into each nostril budesonide 0.5 mg/2 mL suspension for nebulization 0.5 mg inhalation BID 30 Days Qty: 120 11RF Lantus Solostar U-100 Insulin 100 unit/mL (3 mL) insulin pen 20 unit subcut DAILY carvedilol 3.125 mg tablet 3.125 mg PO BID Qty: 60 5RF Rx Instructions: must administer with a meal/food BP medication clopidogrel 75 mg tablet 75 mg PO DAILY Qty: 90 3RF Rx Instructions: Blood thinner for heart Praluent Pen 75 mg/mL pen injector 75 mg subcut Q14D 90 Days Qty: 6 3RF Rx Instructions: No longer taking Repatha - reports side effects latanoprost 0.005 % drops 1 drp ophthalmic (eye) BEDTIME sertraline 50 mg tablet 50 mg PO DAILY ipratropium bromide 21 mcg (0.03 %) spray,non-aerosol intranasal sennosides-docusate sodium [Senna with Docusate Sodium] 8.6-50 mg tablet 2 tab-cap PO BEDTIME PRN (Reason: constipation) 60 Days Qty: 120 2RF Rx Instructions: Please take every other day at bedtime Referrals: Liset Mitchell MD [Primary Care Provider] - Print Language: Indonesian
--- NOTE | 2024-08-01 11:39 | PC.NURSE ---
78 F presents to ED with R leg pain x 3 days, believes that it was caused by medication change: hydralazine. Hx R leg swelling and hx of fall 1 yr ago with R shoulder pain, sees pt. A+Ox4, swedish speaking. Diversity Manager at bedside. RR even and unlabored. PT ambulates indepedently at baseline but is having some difficulty at this time d/t R leg pain, pt was able to ambulate to bathroom.
[2024-08-01] MEDS: Gabapentin 100 MG CAPSULE PO (11:57)
--- OUTSIDE RECORDS SUMMARY | 2024-08-01 12:01 | XMS_ITS | Encounter Summary ---
Author Organization [employer] Address [address] [place] [address] Care Team Providers Care Porcelain Slusher Name Role Phone Liset Mitchell MD Primary Care Provider [phone] Encounter Details Date Type Department Care Team ([facility] Contact Info) Description 02/05/2024 Orders Only [facility] [address], [place] [id number] Provider, MD Anne Marie Social History Tobacco [...] Care Team (Late st Contact Info) Description 08/08/2024 9:45 AM EDT Office Visit [facility] [address] [place] [address] Liset Mitchell MD [address] [place] [address] documented as of this encounter Procedures Procedure [...] documented as of this encounter Care Teams Porcelain Slusher Relationship Specialty Start Date End Date Liset Mitchell MD [address] [place] [id number] PCP - General Family Medicine 09/14/20 documented as of this encounter
--- NOTE | 2024-08-01 15:21 | PC.NURSE ---
physical therapy at bedside
--- NOTE | 2024-08-01 16:08 | MHC.CM.ED ---
Received case management consult from Tracie GARCIA. Patient came to the ER due to hip pain. Work up essentially negative. Physical therapy eval completed. Outpatient physical therapy services are recommended. Met with patient in regards to discharge planning with the assistance of the american sign language interpreter. Patient lives alone, ambulates independently and had no services prior to coming to the ER. Patient aware physical therapy is recommending outpatient physical therapy. Patient states her son will transport her home. Patient is active with [facility]. PT recommendations will be provided to [facility] transitions of care nurse. Tracie GARCIA and Steffi DAMON aware. Continue to monitor for d/c needs.
[2024-08-01 16:33] LABS: Influenza A PCR NEGATIVE (Negative); Influenza B PCR NEGATIVE (Negative); Resp Syncy Virus RNA Qual PCR NEGATIVE (Negative); SARS COV2 PCR INHOUSE NEGATIVE (Negative)
--- NOTE | 2024-08-01 18:13 | PC.NURSE ---
BROUGHT PATIENT TO THE ED [facility] IN A WC, SHE IS ON THE PHONE WITH HER SON WHO IS ON THE WAY TO PICK HER UP
== END 2024-08-01 18:13 | disposition home or self-care (01) ==
PROVIDERS: Nurse Practitioner Family; Emergency Provider Emergency Medicine; PCP Family Medicine
DX: M54.16 Radiculopathy, lumbar region (principal); M25.551 Pain in right hip; R26.81 Unsteadiness on feet; M79.604 Pain in right leg; R10.2 Pelvic and perineal pain; Z79.899 Other long term (current) drug therapy; Z03.818 Encounter for observation for suspected exposure to other biological agents ruled out
CPT/HCPCS: 0241U; 72100; 73502; 97161; 99284

== ENCOUNTER → 2024-08-01 11:54 | Outpatient (BNV) | payer OTHER, SELFPAY | PROVIDERS: Emergency Provider Emergency Medicine; PCP Family Medicine; Visit Provider Radiology Diagnostic Radiology | DX: M25.551 Pain in right hip (principal); M47.816 Spondylosis without myelopathy or radiculopathy, lumbar region | CPT/HCPCS: 72100; 73502 ==

== ENCOUNTER 2024-08-07 10:33 | Outpatient (AMB) | payer OTHER, SELFPAY ==
[2024-08-07 10:40] VITALS: BP 126/56; PULSE 66; O2SAT 96; BMI 30.9
--- NOTE | 2024-08-07 10:40 | A.OFFVIS_ITS ---
Vital Signs 08/07/24 10:40 Height 4 ft 8 in Weight 137 lb 12.623 oz BMI 30.9 BP 126/56 L Blood Pressure Location Lt brachial Position Sitting Pulse 66 Pulse Source Pulse Oximeter Pulse Oximetry (%) 96 Oxygen Delivery Method Room Air Intake Visit Reasons: COPD Allergies fluticasone [Flovent HFA] Allergy (Unknown, Verified 08/07/24 10:43) lip swelling lisinopril Allergy (Verified 08/07/24 10:43) Itching evolocumab [From Repatha SureClick] Adverse Reaction (Intermediate, Verified 08/07/24 10:43) Hypertension umeclidinium [From Incruse Ellipta] Adverse Reaction (Intermediate, Verified 08/07/24 10:43) Chest Pain empagliflozin [Jardiance] Adverse Reaction (Unknown, Verified 08/07/24 10:43) vaginal itch metformin Adverse Reaction (Unknown, Verified 08/07/24 10:43) stomach pain sitagliptin [Januvia] Adverse Reaction (Unknown, Verified 08/07/24 10:43) stomach pain acetaminophen [From Percocet] Adverse Reaction (Verified 08/07/24 10:43) Nausea and Vomiting hydrocodone [From Vicodin] Adverse Reaction (Verified 08/07/24 10:43) Nausea and Vomiting ibuprofen [From Motrin] Adverse Reaction (Verified 08/07/24 10:43) Stomach Upset oxycodone [From Percocet] Adverse Reaction (Verified 08/07/24 10:43) Nausea and Vomiting HPI Comments Details: The patient is a 78 year-old woman with a known history of asthma, pulmonary nodules and chronic cough. Today she has a telehealth visit. She was in her usual state health until for the last few days which she has been having worsening cough in addition to allergy symptoms. She has been visiting family in the symptoms appear to be getting worse. She has tried Benadryl because of significant daytime drowsiness. In addition to that she continues with current respiratory therapy with only partial resolution of the symptoms. She denies any fevers or chills or any exposure to any cover 19 infection. 07/22/2020 the patient is here for a follow-up visit. She is status post bronchoscopy. 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 Her left mainstem bronchus also appeared to be inflamed consistent with bronchitis. Her cultures were all negative except set for some filamentous fungus. I do not believe that this is infectious process. However, the patient has significant allergies and likely contributing to her worsening asthma and allergy symptoms. She is concerned because she also has mold in her current home that she is renting. At this point this place is not healthy and safe for her pulmonary health. I did provide her with a brief letter recommended that she relocate to an apartment or home free of rugs, free of pests and also free of mold. The patient is using cough medications. This has been helpful. In addition to has a history of obstructive sleep apnea. She not using CPAP at this time. The patient does have daytime drowsiness in addition to intermittent headaches. She also has a significant history of snoring. Her Alexandria score is elevated 01/19. I will request a home sleep study for the patient as well. The patient does have a CPT Acapella valve that she needs to use. She will bring it into the next visit so I can tissue had to use it in the meantime she is going to continue with current respiratory therapy. She also has an allergy appointment coming up soon. We did talk about the tracheobronchomalacia as far as different interventions. Ultimately if she wants to have a referral to [place] and will be reasonable specially if she fails conservative management. 07/26/2022 The patient is here for a follow up visit. he is doing well now. Several months ago she was admitted to [facility] with NSTEMI. Initially felt to need CABG, but then underwent a PCI with 2 stents to the RCA. She then was discharged, but then readmitted and underwent a repeat cath with PCI to LAD and OM2. She now is recovering.nIs suppose to start rehab. Has been using her inhalers as prescribed. She did under a CT chest, but is not read as of yet. I will call her once I have the results. Not tolerating the Breo powder. Causing hoarseness. Having worsening allergy symptoms with nasal congestion and cough. moderate in severity. 11/21/2022 the patient is here for a pulmonary follow-up visit. She is recovering from her cardiac interventions. She is participating in cardiac rehabilitation. She is tolerating that well. Now going to the fall she has noticed increasing allergy symptoms. She has been using her [id number] allergy medicine and has been using the Advair inhaler. She does use at twice a day. Still having to use her rescue inhaler throughout the day in complaining of chest tightness and cough. The patient also has some degree of tracheal bronchomalacia that is likely affecting her airway clearance. The patient was following up with Allergy and then now needs a referral to a new office because of a recent change. The patient will continue to follow up with Allergy immunology because allergy shots were providing her positive results per in the meantime will going to go ahead and optimize respiratory therapy by adding a long-acting muscarinic antagonist and she will continue with the combination inhaler. 05/21/2023 the patient is here for a pulmonary follow-up visit. The patient overall has been about the same. She still complains of a cough. Has been getting worse still. Moderate severity. With some chest congestion. Also sinus pressure feels like the cough is mainly from a postnasal drip. The patient has been on nasal therapies without any significant improvement. She does have issues with tracheobronchomalacia likely contributing to her chronic cough. Will go ahead and try her on a small dose of doxycycline for 10 days to see if we can alleviate her symptoms. In the meantime she has been on the respiratory inhalers with partial improvement of the symptoms. She responds better to the nebulized therapy. Will make sure to provide the medications to the pharmacy. We also give her breathing treatment in the office. She does get replacement nebulizer since hers is broken beyond repair. 09/17/2023 the patient is here for a pulmonary follow-up visit. The patient overall has been doing well. Her cough seems to be a little better. She did have a bout of bronchitis and them sinusitis. She was treated effectively for those. She still feels like she has some chest tightness. Although she has not been using her Advair. She does have diabetes would like to prevent on too much prednisone use. I did give her a spacer in order for her to use her Advair twice a day. Issues that she his oral irritation from the Advair. Hopefully with a spacer she will tolerated better. She knows to rinse with mouthwash or salt water. In the meantime she has not been able to use her CPAP because it fell and she is not sure if is working. She does use [facility]. I will send for additional supplies. Will going to have her bring the machine in so we can evaluated in the coming weeks. If the machine is not working then will have to reach out to reliable. Otherwise will try to adjusted for her for her to start using it since she needs it for her underlying sleep apnea. As far as imaging studies she did have a chest x-ray sometime last month because she did have COVID. He was read as no acute disease. Her last CT scan of the chest was back in 07/15/2022 which she had multiple pulmonary nodules largest 1 measuring 5 mm in size. Will plan to allow her to recover after having COVID months ago and then repeat her CT scan in III months' time to follow-up with the pulmonary nodules. If her nodules are stable no further follow-up is warranted. 01/04/2024 the patient is here for a pulmonary follow-up visit. Overall the patient has been doing well. She is not using the CPAP. She feels like she is sleeping okay waking up rested. Her Alexandria score is 5/24. Therefore she can continue to perform positional therapy for now. If she becomes symptomatic we can also consider repeating the sleep study. In addition to that she continues use her Advair as prescribed. She has not had to use her rescue inhaler. The patient also did have a CT scan of the chest in 10/16/2023 which we personally reviewed. It appears that her pulmonary nodules have been stable and unchanged. ent respiratory therapy. She will get the Prevnar 20 vaccine today. And she will follow-up with her other vaccines at the pharmacy. Patient will follow-up in a year's time. If she has any issues prior to that she will call for an earlier assessment. 08/07/2024 the patient is here for pulmonary follow-up visit. Overall the patient has been doing fairly well she continues her respiratory therapy as prescribed. She has not required any additional prednisone. She has not been using her CPAP. She continues positional therapy and she seems to be doing okay. Alexandria score is reasonable. He did have issues with blood pressure but it seems like it is doing better at this time. Therefore she will continue with positional therapy hold off on any PAP therapy. We did review her CT scans and she does have this nodular density in the left lower lobe that is about 6 mm in size in although is been stable it does have an irregular appearance. Therefore I will request a repeat CAT scan at this time to be done in September of 2024. She continues use her respiratory therapy as prescribed. Will plan to follow-up in 6 months. [facility] Medical History Dysphagia Tracheobronchomalacia ROXIE (obstructive sleep apnea) Essential hypertension Atherosclerotic cardiovascular disease Urinary incontinence Obese Dyslipidemia Anxiety and depression Gastric pain Sinusitis Chronic allergic rhinitis Asthma Cough Cough Diabetes mellitus Fibromyalgia Pulmonary nodules Surgical History H/O heart artery stent Hx of esophagogastroduodenoscopy History of bronchoscopy Hx of colonoscopy H/O left knee surgery H/O breast biopsy H/O: hysterectomy Family History Father Hypertension Mother Hypertension Diabetes Daughter Diabetes Brother No problems noted. Social History Household Members: Children Unable to assess alcohol history related to: Unknown Alcohol intake: never Patient Tobacco Use Status: Never used Tobacco Second Hand Smoke Exposure: Yes Review of Systems Const Reports fatigue, Denies fever(s), Denies headache(s), Denies night sweats and Denies weight loss Eyes Denies eye discharge and Denies irritation ENT Reports Normal hearing present, Denies dizziness, Denies headache(s), Reports nasal congestion and Reports post nasal drip Card Denies chest pain, Denies leg edema, Denies dyspnea and Denies dyspnea on exertion Resp Reports chest congestion, Reports cough, Denies dyspnea, Denies dyspnea on exertion and Denies wheezing GI Denies change in bowel habits and Reports heartburn Denies difficulty voiding and Denies dysuria Musc Denies back pain and Denies arthralgias Skin/Breast Denies pruritus, Denies rash and Denies jaundice Neuro Reports Normal hearing present, Denies Abnormal speech present, Denies dizziness, Denies headache(s) and Denies seizure-like activity Psych Denies anxiety, Denies depression and Denies panic attacks Endo Denies cold intolerance, Reports fatigue, Denies flushing and Denies heat intolerance Osman/Lymph Denies easy bleeding and Denies easy bruising Aller/Immun Denies wheezing Physical Exam Vital Signs: Last Vital Signs Pulse 66 08/07/24 10:40 BP 126/56 L 08/07/24 10:40 Pulse Ox 96 08/07/24 10:40 Oxygen Delivery Method Room Air 08/07/24 10:40 BMI result Body Mass Index 30.9 Const General: alert HEENT Mouth: tongue abnormal Neck Neck: Yes normal visual inspection, Yes full ROM and Yes no lymphadenopathy Chest Chest palpation & inspection: normal inspection of the chest Resp Auscultation: no wheezes and diminished lung sounds Cardio Rate: regular rate Rhythm: regular rhythm Heart sounds: S1 normal heart sound present and S2 normal heart sound present GI Palpation (GI): Soft to palpation and nontender Auscultation: normal bowel sounds Skin General skin exam: rashes and/or lesions noted Neuro Cranial nerves: Yes Normal hearing present Speech: No Abnormal speech present Assessment & Plan Assessment & Plan (1) Asthma: Code(s): J45.909 - Unspecified asthma, uncomplicated Category: Medical Qualifiers: Asthma complication type: uncomplicated Asthma persistence: persistent Asthma severity: moderate Qualified Code(s): J45.40 - Moderate persistent asthma, uncomplicated (2) Pulmonary nodules: Code(s): R91.8 - Other nonspecific abnormal finding of lung field Category: Medical (3) ROXIE (obstructive sleep apnea): Code(s): G47.33 - Obstructive sleep apnea (adult) (pediatric) Category: Medical (4) Cough: Code(s): R05 - Cough Category: Medical Qualifiers: Cough type: chronic Qualified Code(s): R05.3 - Chronic cough (5) Chronic allergic rhinitis: Code(s): J30.9 - Allergic rhinitis, unspecified Category: Medical (6) Tracheobronchomalacia: Code(s): J39.8 - Other specified diseases of upper respiratory tract Category: Medical Plan not using APAP, positional therapy, EPWORTH 6 continue CPT with flutter valve twice a day continue Advair HFA add spacer and then rinse with salt water continue Singulair ELAINE/DuoNebs as needed nasal spray Azelastine nasal spray CT chest 09/2024, if stable no further serial CT scans needed Allergy testing follow-up 6 months Orders: Orders CT chest wo IV con 10/20/24 R91.8 - Other nonspecific abnormal finding of lung field Medications: Refilled albuterol sulfate 90 mcg/actuation (Ventolin HFA) 2 puffs PO Q4H PRN 18 ea 6RF for wheezing 30 days fluticasone propion-salmeterol 115-21 mcg/actuation (Advair HFA) 2 puffs PO Q12H 12 ea 11RF Coding Level of Care Code Est Pt Level 4 (61886) Complex EM visit Add On G2211 Diagnoses Moderate persistent asthma without complication J45.40 Asthma complication type: uncomplicated Asthma persistence: persistent Asthma severity: moderate Pulmonary nodules R91.8 ROXIE (obstructive sleep apnea) G47.33 Chronic cough R05.3 Cough type: chronic Chronic allergic rhinitis J30.9 Tracheobronchomalacia J39.8 Time Spent (min) 17
--- OUTSIDE RECORDS SUMMARY | 2024-08-07 12:19 | XMS_ITS | Encounter Summary ---
Author Organization [email or web address] Address [address] [place] [address] Care Team Providers Care Restoration Technician Name Role Phone Liset Mitchell MD Primary Care Provider [phone] Encounter Details Date Type Department Care Team ([facility] Contact Info) Description 02/05/2024 Orders Only [facility] [address] [place], [place] [phone] Provider, MD Anne Marie Social History Tobacco [...] Description 08/08/2024 9:45 AM EDT Office Visit [facility] MED & PEDS [address] [place] [address] Liset Mitchell MD [address] [place] [address] documented as of this encounter Procedures Procedure [...] documented as of this encounter Care Teams Restoration Technician Relationship Specialty Start Date End Date Liset Mitchell MD [address] [place] [id number] PCP - General Family Medicine 09/14/20 documented as of this encounter
== END 2024-08-07 11:02 | disposition home or self-care (01) ==
LOC: HO.HPS 10:33
PROVIDERS: PCP Family Medicine; Visit Provider Hospitalist
DX: J45.40 Moderate persistent asthma, uncomplicated (principal); R91.8 Other nonspecific abnormal finding of lung field; G47.33 Obstructive sleep apnea (adult) (pediatric); R05.3 Chronic cough; J30.9 Allergic rhinitis, unspecified; J39.8 Other specified diseases of upper respiratory tract
CPT/HCPCS: 99214; G2211

== ENCOUNTER → 2024-08-07 10:33 | Outpatient (BNVA) | payer OTHER, SELFPAY | PROVIDERS: PCP Family Medicine; Visit Provider Hospitalist | DX: J45.40 Moderate persistent asthma, uncomplicated (principal); R91.8 Other nonspecific abnormal finding of lung field; G47.33 Obstructive sleep apnea (adult) (pediatric); R05.3 Chronic cough; J30.9 Allergic rhinitis, unspecified; J39.8 Other specified diseases of upper respiratory tract | CPT/HCPCS: 99212 ==

== ENCOUNTER 2024-08-08 10:28 | Outpatient (REF) | payer OTHER, SELFPAY ==
--- OUTSIDE RECORDS SUMMARY | 2024-08-08 11:30 | XMS_ITS | Encounter Summary ---
Author Organization [employer] Address [address] [place] [address] Care Team Providers Care Pack Changer Name Role Phone Liset Mitchell MD Primary Care Provider Reason for Visit * Reason Onset Date Comments CHART PREP 08/07/2024 Encounter Details Date Type Department Care Team ([facility] Contact Info) Description 08/07/2024 Telephone [facility] PEDS [address] [place], [place] [phone] Liset Mitchell MD [address] [place] [address] CHART PREP Social History Tobacco Use Types Packs/Day Years [...] encounter Miscellaneous Notes * Telephone Encounter - Yee Pickens [place] - 08/07/2024 1:55 PM EDT Chart Prep Labs: done Images: done Referrals: complete Vaccines due: Zoster Screenings: Overdue care gaps: SBIRT documented in this encounter Plan of Treatment Not on file documented as of this encounter Visit Diagnoses Not on filedocumented in this encounter Additional Health Concerns Assessment Noted Time PHQ-9 Depression Total Score: 4 02/28/19 25 9:06 AM EST documented as of this encounter Care Teams Pack Changer Relationship Specialty Start Date End Date Liset Mitchell MD [address] [place] [address] PCP - General Family Medicine 09/14/20 documented as of this encounter
[2024-08-08 14:40] LABS: Cholesterol 239 mg/dL (<200); HDL Cholesterol 44 mg/dL (>40); LDL Cholesterol Calculated 165 mg/dL (<100); Triglycerides 150 mg/dL (<150)
[2024-08-08 15:34] LABS: TSH reflex Free T4 1.94 uIU/mL (0.32-4.0)
[2024-08-11 04:30] LABS: ~HepC Num1 0.11 S/CO (0.00-0.79); ~Hepatitis C Antibody Nonreactive (Nonreactive)
== END 2024-08-08 10:29 | disposition home or self-care (01) ==
LOC: HO.CHCLDS 10:28
PROVIDERS: Visit Provider Family Medicine
DX: E11.29 Type 2 diabetes mellitus with other diabetic kidney complication (principal); R80.9 Proteinuria, unspecified; E78.5 Hyperlipidemia, unspecified; Z79.4 Long term (current) use of insulin
CPT/HCPCS: 36415; 80061; 84443; 86803

== ENCOUNTER 2024-08-11 00:15 | Emergency (ER) | payer OTHER, SELFPAY ==
[2024-08-11 00:21] VITALS: BP 170/80; PULSE 60; O2SAT 98
[2024-08-11 00:27] VITALS: BP 147/47; PULSE 52; RESP 16; TEMP 36.7; O2SAT 99; BMI 30.3
--- NOTE | 2024-08-11 00:29 | ED.GENADULT ---
HPI - General Adult General Chief complaint: Back Pain/Injury Stated complaint: Lower back & R knee x1 week here yesterday Time Seen by Provider: 08/11/24 00:29 History of Present Illness ED Provider: Scot DAVIDSON narrative: The patient is a 78-year-old woman. She has a history of frequent he emergency room visits. She was here 10 days ago on August 01 because of right-sided low back pain radiating down her right leg. She has a negative lumbar spine x-ray and a negative right hip x-ray. She was started on gabapentin. She was kept in the emergency room for evaluation by physical therapy. She did well with physical therapy and was discharged from the emergency room. She says that she subsequently followed up with the regular doctor 3 days ago but she was not having significant low back pain at that time. She says that sometime this afternoon her pain returned. It was the same pain in the right lower back radiating down the right leg. She says that she took acetaminophen and gabapentin without relief and ultimately called an ambulance and was brought to the hospital. No fever, sweats, chills. The patient said that she does not wish to have any x-rays done because she is sure they will not reveal anything diagnostic. She has already had x-rays done she says. Related Data Home Medications ?Medication ?Instructions ?Recorded ?Confirmed lancets (OneTouch UltraSoft #100 ea 01/06/20 05/30/24 Lancets) pen needle, diabetic 32 gauge x #50 ea 08/17/20 05/30/24 simethicone 125 mg capsule (Gas 0 mg PO 11/26/20 05/30/24 Relief Extra Strength) spironolactone 25 mg tablet 25 mg PO DAILY 11/26/20 05/30/24 latanoprost 0.005 % eye drops 1 drp ophthalmic (eye) BEDTIME 07/26/22 05/30/24 pioglitazone 45 mg tablet 45 mg PO DAILY 11/21/22 05/30/24 sertraline 50 mg tablet 50 mg PO DAILY 06/18/23 05/30/24 ipratropium bromide 21 mcg (0.03 intranasal 08/16/23 05/30/24 %) nasal spray insulin glargine 100 unit/mL (3 20 unit subcut DAILY 10/10/23 05/30/24 mL) subcutaneous pen (Lantus Solostar U-100 Insulin) Previous Rx's ?Medication ?Instructions ?Recorded blood sugar diagnostic (OneTouch #100 ea 01/07/20 Verio test strips) blood-glucose meter (OneTouch #1 ea 01/07/20 Verio Meter) inhalational spacing device #1 ea 01/25/21 (Aerochamber MV spacer) budesonide 32 mcg/actuation nasal 2 spray intranasal DAILY 30 days 11/21/22 spray #8.43 mL ipratropium 0.5 mg-albuterol 3 mg 3 ml inhalation Q6H PRN for 03/30/23 (2.5 mg base)/3 mL nebulization wheezing #180 mL soln budesonide 0.5 mg/2 mL suspension 0.5 mg (2 mL) inhalation BID 30 05/21/23 for nebulization days #120 mL acetaminophen 500 mg tablet 500 mg PO Q6H PRN fever or pain 08/10/23 #14 tabs sennosides 8.6 mg-docusate sodium 2 tab-cap (2 x 8.6-50 mg) PO 08/16/23 50 mg tablet (Senna with Docusate BEDTIME PRN constipation 60 days Sodium) #120 tabs carvedilol 3.125 mg tablet 3.125 mg PO BID #60 tabs 05/30/24 clopidogrel 75 mg tablet 75 mg PO DAILY #90 tabs 05/30/24 sucralfate 1 gram tablet 1 g PO BID PRN Upper abdominal 07/21/24 pain #60 tabs lubiprostone 8 mcg capsule 8 mcg PO BID #180 caps 07/25/24 gabapentin 100 mg capsule 100 mg PO BID #14 caps 08/01/24 albuterol sulfate 90 mcg/actuation 2 puff PO Q4H PRN for wheezing 30 08/07/24 aerosol inhaler (Ventolin HFA) days #18 ea fluticasone propionate 115 2 puff PO Q12H #12 ea 08/07/24 mcg-salmeterol 21 mcg/actuation HFA inhaler (Advair HFA) alirocumab 75 mg/mL subcutaneous 75 mg subcut Q14D 90 days #6 mL 08/08/24 pen injector (Praluent Pen) acetaminophen 500 mg capsule 1,000 mg (2 x 500 mg) PO Q8H PRN 08/11/24 fever or pain #14 caps gabapentin 300 mg capsule 300 mg PO BID PRN pain #30 caps 08/11/24 ondansetron 4 mg disintegrating 4 mg PO Q6H PRN nausea and 08/11/24 tablet vomiting #10 tabs Allergies Allergy/AdvReac Type Severity Reaction Status Date / Time fluticasone [Flovent HFA] Allergy Unknown lip Verified 08/11/24 00:31 swelling lisinopril Allergy Itching Verified 08/11/24 00:31 evolocumab AdvReac Intermediate Hypertensio Verified 08/11/24 00:31 [From Repatha SureClick] n umeclidinium AdvReac Intermediate Chest Pain Verified 08/11/24 00:31 [From Incruse Ellipta] empagliflozin [Jardiance] AdvReac Unknown vaginal Verified 08/11/24 00:31 itch metformin AdvReac Unknown stomach Verified 08/11/24 00:31 pain sitagliptin [Januvia] AdvReac Unknown stomach Verified 08/11/24 00:31 pain acetaminophen [From Percocet] AdvReac Nausea and Verified 08/11/24 00:31 Vomiting hydrocodone [From Vicodin] AdvReac Nausea and Verified 08/11/24 00:31 Vomiting ibuprofen [From Motrin] AdvReac Stomach Verified 08/11/24 00:31 Upset oxycodone [From Percocet] AdvReac Nausea and Verified 08/11/24 00:31 Vomiting Review of Systems Review of Systems: Yes all other systems are reviewed and are negative PMFSH Past Medical History Medical History Dysphagia Tracheobronchomalacia ROXIE (obstructive sleep apnea) Essential hypertension Atherosclerotic cardiovascular disease Urinary incontinence Obese Dyslipidemia Anxiety and depression Gastric pain Sinusitis Chronic allergic rhinitis Asthma Cough Cough Diabetes mellitus Fibromyalgia Pulmonary nodules Surgical History H/O heart artery stent Hx of esophagogastroduodenoscopy History of bronchoscopy Hx of colonoscopy H/O left knee surgery H/O breast biopsy H/O: hysterectomy Family History Family History Father Hypertension Mother Hypertension Diabetes Daughter Diabetes Brother No problems noted. Social History Social History Household Members: Children Unable to assess alcohol history related to: Unknown Alcohol intake: never Patient Tobacco Use Status: Never used Tobacco Smoked in Last 30 Days: No Second Hand Smoke Exposure: Yes Use of substances other than those prescribed or required for medical reasons: No Advance Directives: No Advance Directives Information Provided: No Do you have a plan to hurt others: No Plan Physical Exam ED Vital Signs: Vital Signs - 24 hr 08/11/24 00:27 08/11/24 00:36 08/11/24 04:43 Temperature 98.1 F 98.1 F Pulse Rate 52 52 48 L Respiratory Rate 16 16 16 Blood Pressure 147/47 H 147/47 H 145/50 H Pulse Oximetry 99 99 98 Oxygen Delivery Method Room Air Room Air Room Air 08/11/24 06:43 Temperature 98.0 F Pulse Rate 48 L Respiratory Rate 16 Blood Pressure 145/50 H Pulse Oximetry 98 Oxygen Delivery Method Room Air BMI result Body Mass Index 30.3 Const Other: The patient is a 78-year-old woman who was awake and alert. At the time that I spoke to her she did not seem in acute distress although when she had 1st been wheeled in by the ambulance crew she has been moaning in discomfort. HENMT Other: Face is symmetrical, mucous membranes moist. Eyes General: appearance normal, both eyes and all related structures Neck Neck: Yes normal visual inspection, Yes full ROM and Yes no JVD Resp Effort & Inspection: normal respiratory effort Auscultation: clear to auscultation bilaterally Cardio Rate: bradycardic Rhythm: regular rhythm Heart sounds: S1 normal heart sound present and S2 normal heart sound present GI Other: The abdomen is soft and nontender Back/Spine/Pelvis Other: The patient is tender in the right posterior superior iliac spine. Skin Other: Skin is dry and unremarkable Neuro Other: The patient is awake and alert with a normal mental status. Cranial nerves 2-12 are intact. She seems to have intact strength and sensation in her extremities including her right leg. Extrem Other: I was able to put the right hip in the right knee through a good range of motion. No pedal edema. No calf tenderness. Medications Administered Discontinued Medications Generic Name Dose Route Start Last Admin Trade Name Freq PRN Reason Stop Dose Admin Acetaminophen 975 mg 08/11/24 00:59 08/11/24 01:31 Acetaminophen 325 Mg Tablet PO 08/11/24 01:00 975 mg ONCE ONE Administration Gabapentin 200 mg 08/11/24 00:59 08/11/24 01:31 Gabapentin 100 Mg Capsule PO 08/11/24 01:00 200 mg ONCE ONE Administration Ketorolac Tromethamine 10 mg 08/11/24 00:59 08/11/24 01:31 Ketorolac Tromethamine 15 Mg/Ml Vial IM 08/11/24 01:00 10 mg ONCE ONE Administration Ondansetron HCl 4 mg 08/11/24 06:07 08/11/24 06:15 Ondansetron Odt 4 Mg Tab.Leoniddis TRANSLINGU 08/11/24 06:08 4 mg ONCE ONE Administration Medical Decision Making Medical Decision Making MDM Narrative: The patient is a 78-year-old female who was a frequent user of the emergency room. She was here 10 days ago for similar right lower back pain. She was prescribed gabapentin. She saw her doctor 3 days ago. She says she did not really discuss the pain at that time because she was not having pain at that time. Pain returned today and she says it did not get better with the acetaminophen and gabapentin and so she called an ambulance. She says the pain is the same pain that she had on August 01. She does not want any x-rays done. She was treated symptomatically with IM ketorolac, PO gabapentin, and acetaminophen. She was observed. She seemed to feel better. She requested a higher dose of gabapentin. She will be prescribed a new gabapentin prescription with 300 mg tablets. She seems well enough for discharge. Discharge Plan Discharge Clinical Impression: Right-sided low back pain with right-sided sciatica Patient Disposition: Home, Self-Care Additional Instructions: I have sent a dose of a higher dose of gabapentin that you may use up to 2 times a day as needed for pain. This is 300 mg tablets. I have also sent a prescription for acetaminophen (Tylenol) that you may use as needed for pain. Also I have sent a prescription for ondansetron (Zofran) which you may use as needed for nausea. Please follow up again with your primary care doctor to see if you can arrange outpatient physical therapy for your back pain. Return to the emergency room if significantly worse. Prescriptions: New acetaminophen 500 mg capsule 1,000 mg PO Q8H PRN (Reason: fever or pain) Qty: 14 0RF gabapentin 300 mg capsule 300 mg PO BID PRN (Reason: pain) Qty: 30 0RF ondansetron 4 mg tablet,disintegrating 4 mg PO Q6H PRN (Reason: nausea and vomiting) Qty: 10 0RF No Action (DME) lancets [OneTouch UltraSoft Lancets] Misc See Rx Instructions .ROUTE .MEDSUPPLY Qty: 100 Rx Instructions: As directed (DME) blood-glucose meter [OneTouch Verio Meter] Misc See Rx Instructions .ROUTE .MEDSUPPLY Qty: 1 0RF Rx Instructions: As directed (DME) OneTouch Verio test strips Strip See Rx Instructions .ROUTE .MEDSUPPLY Qty: 100 0RF Rx Instructions: As directed (DME) Aerochamber MV Spacer See Rx Instructions .ROUTE .MEDSUPPLY Qty: 1 0RF Rx Instructions: As directed ipratropium-albuterol 0.5 mg-3 mg(2.5 mg base)/3 mL solution for nebulization 3 ml inhalation Q6H PRN (Reason: for wheezing) Qty: 180 2RF lubiprostone 8 mcg capsule 8 mcg PO BID Qty: 180 1RF Praluent Pen 75 mg/mL pen injector 75 mg subcut Q14D 90 Days Qty: 6 3RF sucralfate 1 gram tablet 1 g PO BID PRN (Reason: Upper abdominal pain) Qty: 60 0RF acetaminophen 500 mg tablet 500 mg PO Q6H PRN (Reason: fever or pain) Qty: 14 0RF gabapentin 100 mg capsule 100 mg PO BID Qty: 14 0RF simethicone [Gas Relief Extra Strength] 125 mg capsule 0 mg PO spironolactone 25 mg tablet 25 mg PO DAILY (DME) pen needle, diabetic 32 gauge x needle See Rx Instructions .ROUTE .MEDSUPPLY Qty: 50 Rx Instructions: As directed pioglitazone 45 mg tablet 45 mg PO DAILY budesonide 32 mcg/actuation spray,non-aerosol 2 spray intranasal DAILY 30 Days Qty: 8.43 7RF Rx Instructions: administer into each nostril budesonide 0.5 mg/2 mL suspension for nebulization 0.5 mg inhalation BID 30 Days Qty: 120 11RF Lantus Solostar U-100 Insulin 100 unit/mL (3 mL) insulin pen 20 unit subcut DAILY albuterol sulfate [Ventolin HFA] 90 mcg/actuation HFA aerosol inhaler 2 puff PO Q4H PRN (Reason: for wheezing) 30 Days Qty: 18 6RF fluticasone propion-salmeterol [Advair HFA] 115-21 mcg/actuation HFA aerosol inhaler 2 puff PO Q12H Qty: 12 11RF carvedilol 3.125 mg tablet 3.125 mg PO BID Qty: 60 5RF Rx Instructions: must administer with a meal/food BP medication clopidogrel 75 mg tablet 75 mg PO DAILY Qty: 90 3RF Rx Instructions: Blood thinner for heart latanoprost 0.005 % drops 1 drp ophthalmic (eye) BEDTIME sertraline 50 mg tablet 50 mg PO DAILY ipratropium bromide 21 mcg (0.03 %) spray,non-aerosol intranasal sennosides-docusate sodium [Senna with Docusate Sodium] 8.6-50 mg tablet 2 tab-cap PO BEDTIME PRN (Reason: constipation) 60 Days Qty: 120 2RF Rx Instructions: Please take every other day at bedtime Referrals: Liset Mitchell MD [Primary Care Provider] - Interventions: ED Discharge Assessment Last Done: 08/11/24 06:43 Discharge Date/Time: 08/11/24 06:45 Print Language: Japanese
[2024-08-11 00:36] VITALS: BP 147/47; PULSE 52; RESP 16; TEMP 36.7; O2SAT 99
[2024-08-11] MEDS: Ketorolac Tromethamine 15 MG/ML VIAL 10 MG IM (01:31)
[2024-08-11] MEDS: Acetaminophen 325 MG TABLET 975 MG PO (01:31)
[2024-08-11] MEDS: Gabapentin 100 MG CAPSULE 200 MG PO (01:31)
[2024-08-11 04:43] VITALS: BP 145/50; PULSE 48; RESP 16; O2SAT 98
[2024-08-11] MEDS: Ondansetron ODT 4 MG TAB.RAPDIS TRANSLINGU (06:15)
[2024-08-11 06:43] VITALS: BP 145/50; PULSE 48; RESP 16; TEMP 36.7; O2SAT 98
== END 2024-08-11 06:45 | disposition home or self-care (01) ==
PROVIDERS: Emergency Provider Emergency Medicine; PCP Family Medicine
DX: M54.41 Lumbago with sciatica, right side (principal)
CPT/HCPCS: 96374; 99284; J1885

== ENCOUNTER 2024-10-07 10:22 | Outpatient (AMB) | payer OTHER, SELFPAY ==
--- NOTE | 2024-10-07 10:39 | MHC.OFFVIS ---
Vital Signs 10/07/24 10:40 Height 4 ft 8 in Weight 136 lb 3.931 oz BMI 30.5 BP 150/62 H Blood Pressure Location Lt brachial Position Sitting Pulse 77 Pulse Source Pulse Oximeter Intake Visit Reasons: 6m follow up [employer] Supervisor Required: Yes [employer] Supervisor Services: [employer] Supervisor Offered & Declined [employer] Youth Supervisor Name: Mayte / [place] Accompanied by: Employee Allergies fluticasone (Flovent HFA) Allergy (Unknown, Verified 08/11/24 00:31) lip swelling lisinopril Allergy (Verified 08/11/24 00:31) Itching evolocumab (From Repatha SureClick) Adverse Reaction (Intermediate, Verified 08/11/24 00:31) Hypertension umeclidinium (From Incruse Ellipta) Adverse Reaction (Intermediate, Verified 08/11/24 00:31) Chest Pain empagliflozin (Jardiance) Adverse Reaction (Unknown, Verified 08/11/24 00:31) vaginal itch metformin Adverse Reaction (Unknown, Verified 08/11/24 00:31) stomach pain sitagliptin (Januvia) Adverse Reaction (Unknown, Verified 08/11/24 00:31) stomach pain acetaminophen (From Percocet) Adverse Reaction (Verified 08/11/24 00:31) Nausea and Vomiting hydrocodone (From Vicodin) Adverse Reaction (Verified 08/11/24 00:31) Nausea and Vomiting ibuprofen (From Motrin) Adverse Reaction (Verified 08/11/24 00:31) Stomach Upset oxycodone (From Percocet) Adverse Reaction (Verified 08/11/24 00:31) Nausea and Vomiting Medication List - Last Reconciled 10/07/24 by Jm Spencer MD acetaminophen 500 mg PO Q6H PRN albuterol sulfate 90 mcg/actuation 2 puffs PO Q4H PRN 30 days alirocumab (Praluent Pen) 75 mg subcut Q14D 90 days blood sugar diagnostic (OneTouch Verio test strips) As directed blood-glucose meter (OneTouch Verio Meter) As directed budesonide 32 mcg/actuation 2 sprays intranasal DAILY 30 days budesonide 0.5 mg (2 mL) inhalation BID 30 days carvedilol 3.125 mg PO BID clopidogrel 75 mg PO DAILY fluticasone propion-salmeterol 115-21 mcg/actuation (Advair HFA) 2 puffs PO Q12H gabapentin 300 mg PO BID PRN inhalational spacing device (Aerochamber MV spacer) As directed insulin glargine (Lantus Solostar U-100 Insulin) 20 units subcut DAILY ipratropium-albuterol 0.5 mg-3 mg(2.5 mg base)/3 mL 3 mL inhalation Q6H PRN lancets (OneTouch UltraSoft Lancets) As directed latanoprost 0.005% 1 drp ophthalmic (eye) BEDTIME ondansetron 4 mg PO Q6H PRN pen needle, diabetic As directed pioglitazone 45 mg PO DAILY simethicone (Gas Relief Extra Strength) 0 mg PO spironolactone 25 mg PO DAILY sucralfate 1 g PO BID PRN HPI Comments Details: Natali returns for follow-up regarding coronary disease. She used to follow-up here, but then switched to [facility] and then moved back to . Cardiac data reviewed. Apparently, she was admitted with NSTEMI to [facility] and then had cardiac catheterization and that showed multivessel coronary disease. Subsequently, she was seen by cardiac surgery for CABG but declined. Then it seems that she underwent PCI of RCA followed by staged PCI of LAD/OM. After that, switched here. Overall, lot of medication issues and she has got numerous listed allergies. She is on Plavix rather than aspirin because of gastritis. She is statin intolerant and then tried Repatha which also gave her some side effects and now she is on Praluent. However, she has just started taking the injections. From cardiac, no clear concerns. No angina. FORMERLY [facility], [facility] Medical History Dysphagia Tracheobronchomalacia ROXIE (obstructive sleep apnea) Essential hypertension Atherosclerotic cardiovascular disease Urinary incontinence Obese Dyslipidemia Anxiety and depression Gastric pain Sinusitis Chronic allergic rhinitis Asthma Cough Cough Diabetes mellitus Fibromyalgia Pulmonary nodules Surgical History H/O heart artery stent Hx of esophagogastroduodenoscopy History of bronchoscopy Hx of colonoscopy H/O left knee surgery H/O breast biopsy H/O: hysterectomy Family History Father Hypertension Mother Hypertension Diabetes Daughter Diabetes Brother No problems noted. Social History Household Members: Children Unable to assess alcohol history related to: Unknown Alcohol intake: never Patient Tobacco Use Status: Never used Tobacco Second Hand Smoke Exposure: Yes Review of Systems Const Denies daytime sleepiness, Denies difficulty sleeping, Denies snoring, Denies stops breathing during sleep and Reports weakness Card Denies chest pain, Denies rapid heart rate, Denies irregular heart rhythm, Denies claudication, Denies leg edema, Denies lightheadedness, Denies palpitations, Denies dyspnea, Denies dyspnea on exertion, Denies orthopnea, Denies paroxysmal nocturnal dyspnea and Denies slow heart rate Resp Denies cough, Denies dyspnea, Denies dyspnea on exertion and Denies snoring GI Reports no additional complaints, Denies hematochezia, Denies change in stool character and Denies dyspepsia Musc Denies abnormal gait, Denies muscle weakness and Reports numbness Neuro Denies abnormal gait, Reports numbness and Reports weakness Endo Denies palpitations Physical Exam Vital Signs: Last Vital Signs Pulse 77 10/07/24 10:40 BP 150/62 H 10/07/24 10:40 BMI result Body Mass Index 30.5 Const General: comfortable and no acute distress Orientation/consciousness: patient oriented x3 HEENT Other: Unremarkable Head: Yes normal to inspection Neck Neck: Yes normal visual inspection Chest Chest palpation & inspection: normal inspection of the chest Resp Auscultation: clear to auscultation bilaterally Cardio Palpation: normal PMI Heart sounds: S1 normal heart sound present, S2 normal heart sound present, no gallops, no murmurs and no rubs GI Palpation (GI): Soft to palpation Back/Spine/Pelvis Other: unremarkable Skin General skin exam: no rashes or lesions noted Neuro General: patient oriented x3 Extrem General: Yes normal to inspection Psych Mental Status: mental status grossly normal Assessment & Plan Assessment & Plan (1) Atherosclerotic cardiovascular disease: Code(s): I25.10 - Atherosclerotic heart disease of [place] coronary artery without angina pectoris Category: Medical (2) Ischemic cardiomyopathy: Code(s): I25.5 - Ischemic cardiomyopathy Category: Medical (3) Other and unspecified hyperlipidemia: Code(s): E78.5 - Hyperlipidemia, unspecified Category: Medical Plan Status post PCI to RCA/LAD/OM2 from June 2022. In the most recent echocardiogram from 03/2024, LVEF is 45%. Basal inferior/inferoseptal hypokinesis. Otherwise unremarkable. Overall, stable coronary artery disease with mild ischemic cardiomyopathy, but no active symptoms. Because of aspirin intolerance, on Plavix. Blood pressure is on the higher side. It seems she has tried amlodipine in the past but had leg swelling. Lisinopril is listed as an allergy. Apparently hydralazine we started by PCP but she states that gave her vomiting. We can try losartan and hopefully she can take it. Check labs in a couple of weeks after starting the medication. We discussed that today. With regard to the dyslipidemia, continue Praluent. Previously stated intolerance to Repatha and also statin intolerant. Check lipids in a few weeks' time after taking the medication. Discussion Notes During the visit, I discussed the initiation of losartan for hypertension management, emphasizing the importance of monitoring for side effects and the need for follow-up blood work to check kidney function and potassium levels. We also reviewed the continuation of cholesterol injections for hyperlipidemia and the plan for a follow-up lipid panel in a few months. I advised the patient to keep track of her blood pressure and to contact us if she experiences any adverse effects or significant changes. Patient was informed and verbally consented to the use of an ambient scribe for clinic note documentation during this visit. Orders: Orders Basic Metabolic Panel 2 Weeks I25.5 - Ischemic cardiomyopathy Lipid Panel Today E78.5 - Hyperlipidemia, unspecified Medications: New losartan 50 mg PO DAILY 30 tabs 5RF Patient Instructions: - Start taking losartan as prescribed. - Monitor blood pressure regularly and report any significant changes. - Schedule blood work in one to two weeks to check kidney function and potassium levels. - Continue cholesterol injections and follow up with a lipid panel in a few months. Coding Level of Care Code Est Pt Level 4 (31127) Complex EM visit Add On G2211 Diagnoses Atherosclerotic cardiovascular disease I25.10 Ischemic cardiomyopathy I25.5 Other and unspecified hyperlipidemia E78.5
[2024-10-07 10:40] VITALS: BP 150/62; PULSE 77; BMI 30.5
--- OUTSIDE RECORDS SUMMARY | 2024-10-07 11:25 | XMS_ITS | Clinical Summary ---
Author Organization [facility] Address [address] [place] [phone] Phone Care Team Providers Care Host And Hostess Name Role Phone Liset Mitchell MD Primary Care Provider [phone] Allergies Active Allergy Reactions Criticality Noted Date Comments Amlodipine 04/29/2024 Ezetimibe 11/04/2021 Other reaction(s): side effects Fluticasone 07/27/2022 Other reaction(s): lip swelling Hydrocodone Nausea And Vomiting 07/27/2022 Ibuprofen 07/27/2022 Other reaction(s): Stomach Upset Lisinopril 05/25/2023 Metformin 07/27/2022 Other reaction(s): stomach pain Mold Extracts 02/07/2021 Oxycodone Nausea And Vomiting 07/27/2022 Sitagliptin 07/27/2022 Other reaction(s): stomach pain Atorvastatin 04/29/2024 Eaglwvm-Ojs-Psg Reductase Inhibitors 04/29/2024 Umeclidinium High 07/26/2022 Other reaction(s): Chest Pain Medications ipratropium-al buteroL (DUONEB) 0.5-3 mg (2.5 mg base)/3 mL nebulizer solution every 6 (six) hours as needed for wheezing. Active fluticasone propion-salmet Tiffany (ADVAIR HFA) 115-21 mcg/actuation inhaler Inhale into the lungs every 12 (twelve) hours. Active simethicone (GAS-X ORAL) Take by mouth. Ac tive cetirizine (ZYRTEC) 10 MG tablet 2 Active spironolactone (ALDACTONE) 25 MG tablet Take 25 mg by mouth daily. 2 Active sertraline (ZOLOFT) 50 MG tablet Take 1 tablet by mouth daily. 3 Active omeprazole (PRILOSEC) 20 MG capsule Take 1 capsule by mouth. Active sucralfate (CARAFATE) 100 mg/mL suspension Take 1 g by mouth as needed. 3 Active LINZESS 72 mcg capsule Take 72 mcg by mouth daily before breakfast. 4 Active b complex vitamins capsule Take 1 capsule by mouth daily. Active MAGNESIUM ORAL Take by mouth. Active cholecalcifero l, vitamin D3, (VITAMIN D3 ORAL) Take by mouth. Activ e aspirin 81 MG EC tablet TOME CINDY TABLETA TODOS LOS D Active FREESTYLE 28 gauge lancetsIndicat ions:Type 2 diabetes mellitus with microalbuminur ia, with long-term current use of insulin 1 each by Miscellaneous route 4 (four) times a day before meals and nightly. 400 each 3 4 Active FREESTYLE LITE Strp stripsIndicati ons:Type 2 diabetes mellitus with microalbuminur ia, with long-term current use of insulin 1 each by Miscellaneous route 4 (four) times a day before meals and nightly. 400 strip 3 4 Active insulin pen needles, disposable, 32 gauge x 5/32 NdleIndication s:Type 2 diabetes mellitus with microalbuminur ia, with long-term current use of insulin 1 each by Miscellaneous route every morning. 400 each 3 4 Active Medication-Zacarias e Text Allergy injections-not sure what kind Active fluticasone propionate (FLONASE) 50 mcg/actuation nasal spray 1 spray by Nasal route daily. Active insulin glargine 100 unit/mL (3 mL) InPn injection penIndications :Type 2 diabetes mellitus with microalbuminur ia, with long-term current use of insulin Inject 20 Units under the skin nightly at bedtime. 30 mL 1 5 Active pioglitazone (ACTOS) 45 MG tabletIndicati ons:Type 2 diabetes mellitus with microalbuminur ia, with long-term current use of insulin Take 1 tablet (45 mg total) by mouth daily. 90 tablet 1 5 Active Active Problems Problem Noted Date Diagnosed Date Elevated total protein 10/25/2021 Assessment & Plan (02/09/2022 11:37 AM EST): She did not have any monoclonal proteins on serum protein electrophoresis studies. Hyperlipidemia LDL goal <100 10/25/2021 Assessment & Plan (06/05/2024 11:26 AM EDT): Her last LDL on 12/25/2023 was 53 mg/dL but at the time she was taking Repatha. She states that she develops hypertension and chest pain with the use of Repatha and is presently not on a statin she is not on ezetimibe. Her LDL needs to be maintained below 50 mg/dL technically because of previous myocardial infarction. So at this point she is following with her gut snatcher who is trying to get a replacement and possibly requesting other PCSK9 inhibitor, Praluent. She states that she was concerned that her lipid panel may increase so she did try Repatha again but developed the same symptoms and stopped it. Assessment & Plan (12/25/2023 10:24 AM EDT): Controlled. LDL 53 mg/dL she does not appear to be using a statin. Assessment & Plan (06/21/2023 12:01 PM EDT): Controlled. LDL 69 mg/dL continue rosuvastatin 40 mg. No changes. Assessment & Plan (03/22/2023 11:30 AM EST): Controlled based on last LDL 69 mg/dL she was using atorvastatin previously but apparently according to her she developed constipation and she was switched to rosuvastatin 40 mg. Assessment & Plan (12/19/2022 10:13 AM EDT): Controlled based on the last lipid panel HDL was 69 mg/dL and she continues on atorvastatin 80 mg. Assessment & Plan (09/08/2022 12:08 PM EDT): Controlled. LDL 69 mg/dL continue atorvastatin 80 mg daily. Assessment & Plan (02/09/2022 11:35 AM EST): But was 180 mg/dL she could not tolerate ezetimibe after taking it for 1 day she states she felt sick. She has try atorvastatin pravastatin in the past cannot remember why it was stopped because she states she has memory loss. I will repeat the lipid panel and if the LDL remains elevated which I am sure will be made we will consider using a statin such as rosuvastatin. Assessment & Plan (10/25/2021 10:51 AM EDT): Uncontrolled LDL is quite high at 180 mg/dL. She was on atorvastatin in the past but no longer she is on pravastatin. But still does not take the medication because she continues to have myalgias she says bone pain. I am going to prescribe ezetimibe 10 mg and repeat lipid panel in 3 months if it does not improve she probably needs PCSK9 inhibitors. Type 2 diabetes mellitus wit h microalbuminuria, with long-term current use of insulin 2020 Assessment & Plan (06/05/2024 11:24 AM EDT): Fair control. Hemoglobin A1c 7.1 this is age-appropriate control. We do not need to aggressively lower the hemoglobin A1c so I would not make any changes to her regimen. She will continue Lantus 20 and pioglitazone 45 mg daily repeat hemoglobin A1c in 6 months but she also needs to do other lab work including lipid panel microalbumin and renal panel. Assessment & Plan (12/25/2023 10:24 AM EDT): Fair control. Hemoglobin A1c 7.2% and is actually is good control for a 78-year-old patient and I will not make any changes to her regimen.Given age and comorbidities I do not recommend aggressive A1c goals of less than 7%. The [place] [employer] recommends a goal of A1c of 7.5 to 8% in older patients with moderate comorbidities and life expectancy less than 10 years. The [place] [employer] recommends a goal of less than 7.5% in patients with few comorbidities and significant life expectancy, a goal of less than 8% in patients with intermediate life expectancy and multiple chronic comorbidities, and a more relaxed goal of 8-8.5% in older patients with very complex medical issues/poor health and a limited health expectancy. Assessment & Plan (06/21/2023 12:12 PM EDT): Controlled based on glycemic levels. Glucose levels correlate with a hemoglobin A1c of 5.9% so unlikely make any changes continue Lantus and pioglitazone. She needs to obtain lab work fasting for the follow-up visit. Assessment & Plan (03/22/2023 11:31 AM EST): Fair control based on hemoglobin A1c of 7.0% but her meter shows that in the last 2 weeks she has had very poor diet she has been eating a lot she is also received prednisone. She is off the prednisone presently I told her to resume her diet and continue her current regimen. I will give her a follow-up appointment in 3 months she needs to bring in her Dexcom again on the follow-up visit. Assessment & Plan (12/19/2022 10:45 AM EDT): She seems to have good fasting glucose [...] me in 3 months. Assessment & Plan (09/08/2022 12:07 PM EDT): Fair control hemoglobin A1c 7.2% continue Lantus at the current dose increase pioglitazone to 45 mg repeat hemoglobin A1c prior to the follow-up visit. Assessment & Plan (02/09/2022 11:34 AM EST): Uncontrolled. Hemoglobin A1c 8.0% but she stopped pioglitazone she should continue Lantus I am increasing pioglitazone to 30 mg. She states that she stopped it because it was not effective and I told her that we will increase the dose of the medication until it becomes effective. Assessment & Plan (10/25/2021 10:53 AM EDT): Uncontrolled. Hemoglobin A1c 8.1 she continues on Lantus 28 units and normally this controls her fasting glucose but she needs another agent for postprandial hyperglycemia cannot tolerate SGLT2 inhibitors due to genital mycotic infections and cannot tolerate GLP-1 agonist due to adverse effects. So going to prescribe pioglitazone 15 mg. She will return for follow-up in 3 months hopefully she tolerates the medication and if she requires a higher dose will increase it to 30. Assessment & Plan (07/08/2021 11:31 AM EDT): Fair control she has good fasting glucose for postprandial hyperglycemia. I am going to discontinue Januvia and replace it with Jardiance 10 mg daily. She needs to drink plenty of water and use proper hygiene in order to prevent genital mycotic infections. I explained this to her. The Jardiance works quite well so I do know we will have to decrease the Lantus in the future but for now I am not making any changes she will continue her 28 units in the evening. She will return for follow-up in 3 months that she needs to do lab work prior to the follow-up visit. Assessment & Plan (02/07/2021 11:49 AM EST): I would say that the patient has fair control continues to have postprandial hyperglycemia in the evening and symptoms of hypoglycemia with normal glycemic levels in the morning. So I decreased Lantus down again from 30 units to 28 units and she will continue Januvia. But if she continues to have postprandial hyperglycemia what will potentially be best is an SGLT2 inhibitor over Januvia. She cannot tolerate GLP-1 agonists. I do not recall if she is ever used an SGLT2 inhibitor because apparently I have seen her in the past but I do not have those records from other institutions. She informs me that she is going to [place] for the winter months I gave her a follow-up in 5 months she states that she will likely return by then. Assessment & Plan (2020 12:00 PM EDT): Fair control hemoglobin A1c 7.0% but I do not know if the patient is anemic which could result in falsely low hemoglobin A1c. The patient is checking glucose sometimes 1 hour after eating and I informed her not to do so because this will result in elevated glucose levels giving us false readings. She is also eating in the evening to prevent hypoglycemia the next day and this is not a good habit. I rather decrease the Lantus to 30 units and see what her glycemic levels are in the morning. She should continue Januvia 100 mg daily. I will have her return and will review her glycemic levels in 2 months time. Encounters Date Type Department Care Team Description 09/16/2024 Plan of Care Documentation [facility] [address] [place] [address] 07/09/2024 11:30 AM EDT Office Visit [address] [place] [address] Torsten Rizo PA-C Kenny, Erin, PT Chronic right shoulder pain (Primary Dx) from Last 3 Months Family History Medical History Relation Comments Hypertension Father Diabetes Mother Hypertension Mother Relation Status Comments Father Mother Social History Tobacco Use Types Packs/Day Years Used Date Smoking Tobacco: Never Smokeless Tobacco: Never Alcohol Use Standard Drinks/Week Comments Not Currently 0 (1 standard drink = 0.6 oz pur e alcohol) social drinker Education Answer Date Recorded Are you interested in more education? Not on sita e 06/24/2022 Are you concerned about learning? Not on file 06/24/2022 No 06/24/2022 No 06/24/2022 Digital Access Answer Date Recorded No 07/22/2022 No 07/22/2022 Reliable internet access at home? Not on file 07/22/2022 Device with a working camera? Not on file Comments Unknown Sex and Gender Information Value Date Recorded Sex Assigned at Not on file Legal Sex Female 2:55 PM EDT Gender Identity Not on file Sexual Orientation Not on file Last Filed Vital Signs Vital Sign Reading Time Taken Comments Blood Pressure 138/70 06/05/2024 11:05 AM EDT Pulse 60 06/05/2024 11:05 AM EDT Temperature 36.8 C (98.3 F) 06/21/2023 12:00 PM EDT Respiratory Rate - - Oxygen Saturation 99% 06/05/2024 11:05 AM EDT Inhaled Oxygen Concentration - - Weight 64.7 kg (142 lb 9.6 oz) 06/05/2024 11:05 AM EDT Height 144.2 cm (4' 8.77 ) 06/05/2024 11:05 AM E DT Body Mass Index 31.11 06/05/2024 11:05 AM EDT Plan of Treatment Upcoming Encounters Date Type Department Care Team (Late st Contact Info) Description 12/05/2024 11:30 AM EDT Office Visit [facility] [address] [place] [phone] Richard Dixon DO [address] [place] [phone] [email or web address] Health Maintenance Due Date Last Done Comments DEPRESSION SCREENING 1957 HEPATITIS C SCREENING 12/07/1963 OSTEOPOROSIS SCREENING INITIAL (ONE-TIME) 2010 ZOSTER VACCINES (2 of 3) 05/27/2014 04/01/2014 DIABETIC EYE EXAM 2020 RSV VACCINE (1 - 1-dose 75+ series) 2020 COVID-19 VACCINE ( - season) 2023 POTASSIUM LEVEL 06/20/2024 06/21/2023, 10/13/2021 HEMOGLOBIN A1C 12/03/2024 06/03/2024, 04/0 05/2024, 12/24/2023, Additional history exists BLOOD PRESSURE 12/05/2024 06/05/2024 LIPID PANEL 12/23/2024 12/24/2023, 08/1 05/2023, 09/01/2022, Additional history exists URINE MICROALBUMIN/CREATININE RATIO 12/23/2024 12/24/2023, 12/19/2022, 10/13/2021 Adult Td,Tdap Booster 03/27/2033 03/27/2023 , 05/21/2012, 11/04/1997 PNEUMOCOCCAL VACCINES (50+ years) Completed 03/18/2015, 03/25/2011, 04/04/2010, Additional history exists SMOKING STATUS SCREENING (Once After 26 Yrs) Completed 06/05/2024 HEPATITIS A VACCINES Aged Out No long er eligible based on patient's age to complete this topic HIB VACCINES Aged Out No longer eligi ble based on patient's age to complete this topic MENINGOCOCCAL VACCINES (ACWY) Aged Out No longer eligible based on patient's age to complete this topic MENINGOCOCCAL VACCINES (B) Aged Out N o longer eligible based on patient's age to complete this topic Medical Devices Not on file Procedures Procedure Name Priority Date/Time Associated Diagnosis Comments HEMOGLOBIN A1C Routine 06/03/2024 11:17 AM EDT Type 2 diabetes mellitus with microalbuminuria, with long-term current use of insulin MICROALBUMIN/CREATIN INE RATIO, RANDOM URINE Routine 12/24/2023 10:28 AM EDT Type 2 diabetes mellitus with microalbuminuria, with long-term current use of insulin LIPID PANEL Routine 12/24/2023 10:12 AM EDT Type 2 diabetes mellitus with microalbuminuria, with long-term current use of insulin Hyperlipidemia LDL goal <100 BASIC METABOLIC PANEL Routine 06/21/2023 9:57 AM EDT Type 2 diabetes mellitus with microalbuminuria, with long-term current use of insulin from Last 3 Months or Most Recently Relevant to Health Maintenance Results * (ABNORMAL) Hemoglobin A1c (06/03/2024 11:17 AM EDT) HEMOGLOBIN A1C 7.1(H) 4.3 - 5.8 % [facility] Blood 06/03/2024 11:1 7 AM EDT 06/03/2024 11:19 AM EDT us Richard Dixon DO LAB BLOOD ORDERABLES Final Resul t [facility] [address] [place] [address] * (ABNORMAL) Microalbumin/creatinine ratio, random urine (12/24/2023 10:28 AM EDT) URINE MICROALBUMIN 3.0(H) 0 - 2.3 mg/dL [facility] URINE CREATININE 201 mg/dL [facility] MICROALB/CRE RATIO 14.9 0 - 20 mg/g Cre [facility] Urine (Urine) 12/24/2023 10: 28 AM EDT 12/24/2023 10:29 AM EDT us Richard Dixon DO URINE ORDERABLES Final Result [address] [address] * (ABNORMAL) Lipid panel (12/24/2023 10:12 AM EDT) [facility] HDL 56 mg/dL [facility] Comment: Interpretation <40 mg/dL: Low HDL cholesterol (major risk factor for CHD) Greater than or equal to 60 mg/dL: High HDL cholesterol ( negative risk factor for CHD) HDL - cholesterol is affected by a number of factors, e.g. smoking, excerise, hormones, sex and age. CHOLESTEROL 130 0 - 240 mg/dL [facility] TRIGLYCERIDES 103 30 - 160 mg/dL [facility] LDL 53 50 - 129 mg/dL [facility] Comment: LDL levels in terms of risk for coronary heart disease: <100 mg/dL: Optimal 100-129 mg/dL: Near or above optimal 130-159 mg/dL: Borderline high 160-189 mg/dL: High >190 mg/dL: Very High CARDIAC RISK RATIO 2.3(L) 3.3 - 4.4 C [facility] Blood 12/24/2023 10:1 2 AM EDT 12/24/2023 10:19 AM EDT us Richard Dixon DO LAB BLOOD ORDERABLES Final Resul t [address] [address] * (ABNORMAL) Basic metabolic panel (06/21/2023 9:57 AM EDT) SODIUM 140 133 - 146 mmol/L [facility] CHLORIDE 104 96 - 108 mmol/L [facility] POTASSIUM 5.0 3.3 - 5.1 mmol/L [facility] CO2 26 21 - 35 mmol/L [facility] BUN 16 6 - 19 mg/dL [facility] CREATININE 0.70 0.5 - 1.5 mg/dL [facility] GLUCOSE 102(H) 70 - 99 mg/dL [facility] CALCIUM 9.9 8.4 - 10.3 mg/dL [facility] EGFR 89 >59 mL/min/1.7 3m2 [facility] Comment:Estimated glomerular filtration rate calculated using the CKD-EPI refit equation. ANION GAP 15 10 - 20 mmol/L [facility] Blood 06/21/2023 9:57 AM EDT 06/21/2023 9:59 AM EDT Richard Dixon DO LAB BLOOD ORDERABLES Final Resul t [address] [address] from Last 3 Months or Most Recently Relevant to Health Maintenance Insurance [id number]EMENT [id number] [id number] [facility] MEDICARE REPLACEMENT MEDICARE REPLACEMENT MEDICARE REPLACEMENT MEDICARE REPLACEMENT MEDICARE REPLAC[place] [address] MEDICARE REPLACEMENT [id number] [id number] [facility] MEDICARE REPLACEMENT [id number] [address] [facility] MEDICARE REPLACEMENT Care Teams Host And Hostess Relationship Specialty Start Date End Date Liset Mitchell MD [address] [place] [phone] PCP - General Family Medicine 10/12/23 Additional Source Comments The information contained in this document represents components of the legal health record. It is not the complete legal health record.[facility]
--- OUTSIDE RECORDS SUMMARY | 2024-10-07 11:25 | XMS_ITS | Clinical Summary ---
Author Organization [facility] Address [address] [place] [address] Phone Care Team Providers Care Chemist Organic Name Role Phone Liset Mitchell MD Primary Care Provider [phone] Allergies Active Allergy Reactions Criticality Noted Date [...] Comments Hypertension 07/24/2018 DX:Hypertension Asthma-COPD overlap syndrome (CMS/HCC V24, CMS/HCC V28) 05/24/2018 DX:Asthma-COPD overlap syndr ome (HCC) Hiatal hernia 05/24/2018 DX:Hiatal hernia Pulmonary nodule 05/24/2018 DX:Pulmonary no dule Hyperlipidemia 07/24/2018 DX:Hyperlipidemi a Anxiety and depression 07/24/2018 DX:Anxiet y and depression Constipation 07/24/2018 DX:Constipation Vitamin B 12 deficiency 07/24/2018 DX:Vitam in B 12 deficiency Allergic rhinitis 07/24/2018 DX:Allergic rh initis Congestive heart failure ([facility] V24, [facility] [...] 07/24/2018 DX:Type 2 diabetes mellitus without complication ([facility]) HTN (hypertension) DX:HTN (hyper tension) GERD (gastroesophageal reflux disease) DX:GERD (gastroesophageal reflux disease) Depression DX:Depression 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 ([facility] V24, [facility] V28) DX:Insulin depende nt type 2 diabetes mellitus ([facility]) Social History Tobacco Use Types Packs/Day Years [...] 74 06/26/2024 3:42 AM EDT Temperature 36.9 C (98.4 F) 06/25/2024 11:42 PM EDT Respiratory Rate 18 06/26/2024 3:42 AM EDT [...] Vaccine ( season) 2023 02/02/2021, 07/15/2020, 06/24/2020 Depression Screening 02/27/2024 Influenza Vaccine (#1) 2024 9, 01/09/2018, 04/06/2017, Additional history exists Diabetes: Blood Sugar Control Test (HGBA1C) 11/29/2024 05/30/2024, 08/03/2023 Diabetes: Annual Urine Albumin-Creatinine Ratio (uACR) 12/23/2024 12/24/2023, 12/19/2022, 10/13/2021 Diabetes: Annual GFR (Glomerular Filtration Rate) 06/25/2025 [...] Procedure Name Priority Date/Time Associated Diagnosis Comments BASIC METABOLIC PANEL STAT 06/25/2024 6:34 PM EDT from Last 3 Months or Most Recently Relevant to Health Maintenance Results * (ABNORMAL) Basic metabolic panel (06/25/2024 6:34 PM EDT) Sodium 136 133 - 145 mmol/L LAB CHEMISTRY METHOD 06/25/2024 7:24 PM [facility] Potassium 4.6 3.5 - 5.5 mmol/L LAB CHEMISTRY METHOD 06/25/2024 7:24 PM [facility] Chloride 104 96 - 110 mmol/L LAB CHEMISTRY METHOD 06/25/2024 7:24 PM [facility] CO2 25 21 - 32 mmol/L LAB CHEMISTRY METHOD 06/25/2024 7:24 PM [facility] Anion Gap 7 3 - 11 LAB CHEMISTRY METHOD 06/25/2024 7:24 PM [facility] Glucose 142(H) 70 - 100 mg/dL LAB CHEMISTRY METHOD 06/25/2024 7:24 PM [facility] BUN 33(H) 5 - 25 mg/dL LAB CHEMISTRY METHOD 06/25/2024 7:24 PM [facility] Creatinine 0.92 0.50 - 1.10 mg/dL LAB CHEMISTRY METHOD 06/25/2024 7:24 PM EDT [facility] eGFR 64 >=60 mL/min/1. 73m2 LAB CHEMISTRY METHOD 06/25/2024 7:24 PM EDT [facility] Comment:Calculation based on the Chronic Kidney Disease Epidemiology Collaboration (CKD-EPI) equation refit without adjustment for race. BUN/Creatinine Ratio 35.9 LAB CHEMISTRY METHOD 06/25/2024 7:24 PM EDT [facility] Calcium 9.6 8.5 - 10.5 mg/dL LAB CHEMISTRY METHOD 06/25/2024 7:24 PM EDT [facility] Blood Venous blood specimen / Unknown Venipuncture / Unknown 06/25/2024 6:34 PM EDT 06/25/2024 6:45 PM EDT Lucho Chappell MD LAB BLOOD ORDERABLES Final Resu lt [facility] [address] [place] [address], from Last 3 Months or Most Recently Relevant to Health Maintenance Insurance [facility] MEDICARE Member Subscriber Plan / Payer (Ef fective 2012-Present) Name:Natali Bower Relation to Subscriber:Self Name:Natali Bower Payer ID:[id number] Group ID:[id number] Type:Not on file Address: [place] [address] [address] [phone] Care Teams Chemist Organic Relationship Specialty Start Date End Date Liset Mitchell MD [address] [place] [id number] [facility] - General 08/09/21
--- OUTSIDE RECORDS SUMMARY | 2024-10-07 11:25 | XMS_ITS | Continuity of Care Document ---
Author Name Keo Bills Address [address] [place] [id number] Organization Unknown Address [address] [place] [address] Medications No known medications Problems No known problems
--- OUTSIDE RECORDS SUMMARY | 2024-10-07 11:25 | XMS_ITS | Encounter Summary ---
Author Organization [employer] Address [address] [place] [address] Care Team Providers Care Subeditor Name Role Phone Liset Mitchell MD Primary Care Provider [phone] Reason for Visit * Reason Onset Date Comments FYI 08/07/2024 Encounter Details Date Type Department Care Team ([facility] Contact Info) Description 08/07/[address] [facility] MEDICINE [address] [place] [address] Liset Mitchell MD [address] [place] [id number] FYI Social History Tobacco Use Types Packs/Day Years [...] encounter Miscellaneous Notes * Telephone Encounter - Jesus Wilks - 08/07/2024 2:30 PM EDT Tc from [place] with [facility] Cardiac Rehab wanting to leave an FYI with pcp for upcoming visit tomorrow. Pt has: Declined Psychiatrist Refused to take her cetrezine despite feelign symptoms of depression SENIOR PARTNER quit She was to start cholesterol injection but was never able to Pt has also been put on hold for cardiac rehab and would like pcp to follow up with pt tomorrow regarding concerns above. If any questions you can contact Leda at [phone] ext [phone]. documented in this encounter Plan of Treatment Upcoming Encounters Date Type Department Care Team (Late st Contact Info) Description 11/07/2024 11:30 AM EDT Office Visit [facility] MED & PEDS [address] [place] [address] Liset Mitchell MD [address] [place] [address] documented as of this encounter Visit Diagnoses Not on filedocumented in this encounter Additional Health Concerns Assessment Noted Time PHQ-9 Depression Total Score: 4 02/28/19 25 9:06 AM EST documented as of this encounter Care Teams Subeditor Relationship Specialty Start Date End Date Liset Mitchell MD [address] [place] [id number] PCP - General Family Medicine 09/14/20 documented as of this encounter
== END 2024-10-07 11:14 | disposition home or self-care (01) ==
LOC: HO.HCS 10:22
PROVIDERS: PCP Family Medicine; Visit Provider Internal Medicine
DX: I25.10 Atherosclerotic heart disease of native coronary artery without angina pectoris (principal); I25.5 Ischemic cardiomyopathy; E78.5 Hyperlipidemia, unspecified
CPT/HCPCS: 99214; G2211

== ENCOUNTER → 2024-10-07 10:22 | Outpatient (BNVA) | payer OTHER, SELFPAY | PROVIDERS: PCP Family Medicine; Visit Provider Internal Medicine | DX: I25.10 Atherosclerotic heart disease of native coronary artery without angina pectoris (principal); I10 Essential (primary) hypertension; I25.5 Ischemic cardiomyopathy; E78.5 Hyperlipidemia, unspecified | CPT/HCPCS: 99212 ==

== ENCOUNTER 2024-10-18 06:11 | Emergency (ER) | payer OTHER, SELFPAY ==
--- NOTE | 2024-10-18 | ECG_ITS ---
Test Reason : HBP Blood Pressure : */* mmHG Vent. Rate : 69 BPM Atrial Rate : 69 BPM P-R Int : 184 ms QRS Dur : 94 ms QT Int : 402 ms P-R-T Axes : 48 -32 3 degrees QTcB Int : 430 ms Normal sinus rhythm with sinus arrhythmia Left axis deviation Moderate voltage criteria for LVH, may be normal variant ( R in aVL , [place] product ) Inferior infarct (cited on or before 19-Aug-2022) Anterior infarct , age undetermined Abnormal ECG When compared with ECG of 21-Jul-2024 14:20, No significant change was found Referred By: Generic ED Physician Electronically Signed By: LALITHA PARMAR MD
[2024-10-18 06:18] VITALS: BP 165/114; BP 166/72; PULSE 76; PULSE 83; RESP 16; TEMP 36.8; O2SAT 95; O2SAT 99; BMI 28.6
[2024-10-18 06:41] VITALS: BP 150/75; PULSE 59; RESP 16; O2SAT 95
[2024-10-18 06:46] LABS: MANUAL DIFF FLAG NO
[2024-10-18 06:56] LABS: Hematocrit 39.7 % (37.0-47.0); Hemoglobin 13.9 g/dl (12.0-16.0); Imm Gran Abs Auto 0.03 X10*3/uL (0.00-0.03); Imm Gran Pct Auto 0.4 % (0.0-0.4); Lymphocytes Absolute Auto 2.1 X10*3/uL (1.2-4.9); Mean Corpuscular HGB Conc 35.0 g/dl (31.0-35.0); Mean Corpuscular Hemoglobin 31.0 pg (27.0-33.0); Mean Corpuscular Volume 88.4 fL (80.0-98.0); NRBC Abs Auto 0.000 X10*3/uL (0.0-0.012); NRBC Pct Auto 0.0 /100WBC (0.0-0.2); Platelet Count 178 X10*3/uL (160-400); Red Blood Count 4.49 X10*6/uL (4.20-5.50); White Blood Count 6.8 X10*3/uL (4.8-10.8)
[2024-10-18 07:12] LABS: Alanine Aminotransferase 33 U/L (0-31); Albumin Level 4.2 g/dL (3.5-5.0); Alkaline Phosphatase 67 U/L (39-117); Anion Gap 12 (12-20); Aspartate Amino Transferase 31 U/L (5-31); Blood Urea Nitrogen 19 mg/dL (9-16); Calcium 9.6 mg/dL (8.4-10.2); Carbon Dioxide 27 mmol/L (22-29); Chloride 105 mmol/L (96-108); Creatinine Clr Calc Pharmacy 46.9; Estimated Glomerular Filt Rate > 60; Magnesium 1.8 mg/dL (1.6-2.6); Potassium 4.2 mmol/L (3.3-5.1); Sodium 140 mmol/L (135-145); Total Protein 7.0 g/dL (6.5-8.0)
[2024-10-18 07:19] LABS: Troponin-I High Sensitivity 12.0 ng/L (<3.5-17.0)
[2024-10-18 07:36] VITALS: BP 158/52; PULSE 55; RESP 18; TEMP 36.6; O2SAT 96
--- NOTE | 2024-10-18 08:47 | ED.GENADULT ---
HPI - General Adult General Chief complaint: General Medical Stated complaint: HTN Time Seen by Provider: 10/18/24 08:47 History of Present Illness ED Provider: Scot DAVIDSON narrative: The patient is a 78-year-old woman who says that yesterday evening at around 19:00 she developed pain in the left side of her neck that at 1st she did not worry about very much but it persisted throughout the night and this morning she checked her blood pressure in her blood pressure was elevated. This made her worried that perhaps the pain could be related to her heart so she called an ambulance and was brought to the hospital. Her pain is feeling somewhat better has not her blood pressure is better here in the emergency room without acute intervention. The pain is worse when she moves her head. No chest pain or shortness of breath. No diaphoresis. Related Data Home Medications ?Medication ?Instructions ?Recorded ?Confirmed lancets ([employer]acation Listing ServiceTouch UltraSoft #100 ea 01/06/20 05/30/24 Lancets) pen needle, diabetic 32 gauge x #50 ea 08/17/20 05/30/24 simethicone 125 mg capsule (Gas 0 mg PO 11/26/20 10/07/24 Relief Extra Strength) spironolactone 25 mg tablet 25 mg PO DAILY 11/26/20 10/07/24 latanoprost 0.005 % eye drops 1 drp ophthalmic (eye) BEDTIME 07/26/22 05/30/24 pioglitazone 45 mg tablet 45 mg PO DAILY 11/21/22 10/07/24 insulin glargine 100 unit/mL (3 20 unit subcut DAILY 10/10/23 10/07/24 mL) subcutaneous pen (Lantus Solostar U-100 Insulin) Previous Rx's ?Medication ?Instructions ?Recorded blood sugar diagnostic (Vac[employer] Listing ServiceTouch #100 ea 01/07/20 Verio test strips) blood-glucose meter (Vac[employer] Listing ServiceTouch #1 ea 01/07/20 Verio Meter) inhalational spacing device #1 ea 01/25/21 (Aerochamber MV spacer) budesonide 32 mcg/actuation nasal 2 spray intranasal DAILY 30 days 11/21/22 spray #8.43 mL ipratropium 0.5 mg-albuterol 3 mg 3 ml inhalation Q6H PRN for 03/30/23 (2.5 mg base)/3 mL nebulization wheezing #180 mL soln budesonide 0.5 mg/2 mL suspension 0.5 mg (2 mL) inhalation BID 30 05/21/23 for nebulization days #120 mL acetaminophen 500 mg tablet 500 mg PO Q6H PRN fever or pain 08/10/23 #14 tabs carvedilol 3.125 mg tablet 3.125 mg PO BID #60 tabs 05/30/24 clopidogrel 75 mg tablet 75 mg PO DAILY #90 tabs 05/30/24 sucralfate 1 gram tablet 1 g PO BID PRN Upper abdominal 07/21/24 pain #60 tabs fluticasone propionate 115 2 puff PO Q12H #12 ea 08/07/24 mcg-salmeterol 21 mcg/actuation HFA inhaler (Advair HFA) gabapentin 300 mg capsule 300 mg PO BID PRN pain #30 caps 08/11/24 ondansetron 4 mg disintegrating 4 mg PO Q6H PRN nausea and 08/11/24 tablet vomiting #10 tabs albuterol sulfate 90 mcg/actuation 2 puff PO Q4H PRN for wheezing 30 08/15/24 aerosol inhaler days #1 ea losartan 50 mg tablet 50 mg PO DAILY #30 tabs 10/07/24 evolocumab 140 mg/mL subcutaneous 140 mg subcut Q2W #2 mL 10/15/24 pen injector (Repatha SureClick) acetaminophen 500 mg capsule 1,000 mg (2 x 500 mg) PO Q8H PRN 10/18/24 fever or pain #14 caps Allergies Allergy/AdvReac Type Severity Reaction Status Date / Time fluticasone (Flovent HFA) Allergy Unknown lip Verified 10/18/24 06:21 swelling lisinopril Allergy Itching Verified 10/18/24 06:21 evolocumab (From Repatha AdvReac Intermediate Hypertensio Verified 10/18/24 06:21 SureClick) n umeclidinium (From Incruse AdvReac Intermediate Chest Pain Verified 10/18/24 06:21 Ellipta) empagliflozin (Jardiance) AdvReac Unknown vaginal Verified 10/18/24 06:21 itch metformin AdvReac Unknown stomach Verified 10/18/24 06:21 pain sitagliptin (Januvia) AdvReac Unknown stomach Verified 10/18/24 06:21 pain acetaminophen (From Percocet) AdvReac Nausea and Verified 10/18/24 06:21 Vomiting hydrocodone (From Vicodin) AdvReac Nausea and Verified 10/18/24 06:21 Vomiting ibuprofen (From Motrin) AdvReac Stomach Verified 10/18/24 06:21 Upset oxycodone (From Percocet) AdvReac Nausea and Verified 10/18/24 06:21 Vomiting Review of Systems Review of Systems: Yes all other systems are reviewed and are negative COUNTS INCLUDE 234 BEDS AT THE [facility] Past Medical History Medical History Dysphagia Tracheobronchomalacia ROXIE (obstructive sleep apnea) Essential hypertension Atherosclerotic cardiovascular disease Urinary incontinence Obese Dyslipidemia Anxiety and depression Gastric pain Sinusitis Chronic allergic rhinitis Asthma Cough Cough Diabetes mellitus Fibromyalgia Pulmonary nodules Surgical History H/O heart artery stent Hx of esophagogastroduodenoscopy History of bronchoscopy Hx of colonoscopy H/O left knee surgery H/O breast biopsy H/O: hysterectomy Family History Family History Father Hypertension Mother Hypertension Diabetes Daughter Diabetes Brother No problems noted. Social History Social History Household Members: Children Unable to assess alcohol history related to: Unknown Alcohol intake: never Patient Tobacco Use Status: Never used Tobacco Second Hand Smoke Exposure: Yes Physical Exam ED Vital Signs: Vital Signs - 24 hr 10/18/24 06:18 10/18/24 06:41 10/18/24 07:36 Temperature 98.3 F 97.9 F Pulse Rate 83 59 55 Respiratory Rate 16 16 18 Blood Pressure 165/114 H 150/75 H 158/52 H Pulse Oximetry 95 95 96 Oxygen Delivery Method Room Air Room Air Room Air BMI result Body Mass Index 28.6 Const Other: The patient is a 78-year-old woman who was awake and alert. She does not appear in any distress. She is very talkative. Orientation/consciousness: patient oriented x3 HENMT Other: The face is symmetrical. ?Mucous membranes moist. Eyes Other: Pupils are round equal, conjunctivae are clear, extraocular movements intact General: appearance normal, both eyes and all related structures Neck Other: there is some left-sided tenderness at the posterior lower neck. Neck: Yes normal visual inspection, Yes full ROM and Yes no JVD Resp Effort & Inspection: normal respiratory effort Auscultation: clear to auscultation bilaterally Cardio Rate: regular rate Rhythm: regular rhythm Heart sounds: S1 normal heart sound present and S2 normal heart sound present GI Other: Abdomen is soft and nontender Skin Other: The skin is dry and unremarkable Neuro General: patient oriented x3, tone normal, moves all extremities, no focal motor deficits and CN's II-XI intact bilaterally Extrem Other: There is no calf swelling or tenderness. No asymmetry. No peripheral edema. Medications Administered Discontinued Medications Generic Name Dose Route Start Last Admin Trade Name Marla PRN Reason Stop Dose Admin Acetaminophen 975 mg 10/18/24 09:17 10/18/24 09:38 Acetaminophen 325 Mg Tablet PO 10/18/24 09:18 975 mg ONCE ONE Administration Gabapentin 100 mg 10/18/24 09:17 10/18/24 09:38 Gabapentin 100 Mg Capsule PO 10/18/24 09:18 100 mg ONCE ONE Administration Medical Decision Making Medical Decision Making [facility] Narrative: The patient is a 78-year-old woman who presents for evaluation of left-sided neck pain that started yesterday evening in which bothered her throughout the night. She has a negative troponin after having had the same pain for hours throughout the night last night. She has an unchanged EKG. She has benign clinical appearance. I think her pain is musculoskeletal. She was reassured. She should follow up with her PCP. Tylenol as needed for pain. Return to the emergency room if worse. Lab Data 10/18/24 06:40 10/18/24 06:40 Labs: Lab Results 10/18/24 Range/Units 06:40 WBC 6.8 (4.8-10.8) X10*3/uL RBC 4.49 (4.20-5.50) X10*6/uL Hgb 13.9 (12.0-16.0) g/dl Hct 39.7 (37.0-47.0) % MCV 88.4 (80.0-98.0) fL MCH 31.0 (27.0-33.0) pg MCHC 35.0 (31.0-35.0) g/dl RDW 12.6 (11.0-16.0) % Plt Count 178 (160-400) X10*3/uL MPV 10.7 (9.4-12.3) fL Immature Gran % (Auto) 0.4 (0.0-0.4) % Neut % (Auto) 59.1 (45-73) % Lymph % (Auto) 31.2 (20-40) % Winkler % (Auto) 6.7 (2-11) % Eos % (Auto) 1.9 (0-4) % Baso % (Auto) 0.7 (0-2) % Lymph # (Auto) 2.1 (1.2-4.9) X10*3/uL Winkler # (Auto) 0.5 (0.1-1.2) X10*3/uL Eos # (Auto) 0.1 (0.0-0.4) X10*3/uL Baso # (Auto) 0.1 (0.0-0.2) X10*3/uL Abs Immat Gran (auto) 0.03 (0.00-0.03) X10*3/uL Absolute Neuts (auto) 4.0 (2.0-8.3) x10*3/uL Absolute Nucleated RBC 0.000 (0.0-0.012) X10*3/uL Nucleated RBC % (auto) 0.0 (0.0-0.2) /100WBC Sodium 140 (135-145) mmol/L Potassium 4.2 (3.3-5.1) mmol/L Chloride 105 (96-108) mmol/L Carbon Dioxide 27 (22-29) mmol/L Anion Gap 12 (12-20) BUN 19 H (9-16) mg/dL Creatinine 0.84 (0.5-1.4) mg/dL Estim Creat Clear Calc 46.9 Estimated GFR > 60 Random Glucose 174 H (60-115) mg/dL Calcium 9.6 (8.4-10.2) mg/dL Magnesium 1.8 (1.6-2.6) mg/dL Total Bilirubin 0.4 (0.0-1.0) mg/dL AST 31 (5-31) U/L ALT 33 H (0-31) U/L Alkaline Phosphatase 67 (39-117) U/L Troponin I High Sens 12.0 (<3.5-17.0) ng/L Total Protein 7.0 (6.5-8.0) g/dL Albumin 4.2 (3.5-5.0) g/dL Independent Interpretation I performed an independent interpretation of an: EKG Interpretation: EKG at 06:49 shows normal sinus rhythm at 69 beats per minute. No significant change from previous. Discharge Plan Discharge Clinical Impression: Neck pain on left side Patient Disposition: Home, Self-Care Additional Instructions: Your testing for your heart today is reassuring. I think your pain is muscular pain. Please use acetaminophen (Tylenol) as needed for pain. Prescriptions: New acetaminophen 500 mg capsule 1,000 mg PO Q8H PRN (Reason: fever or pain) Qty: 14 0RF No Action (DME) lancets [OneTouch UltraSoft Lancets] Misc See Rx Instructions .ROUTE .MEDSUPPLY Qty: 100 Rx Instructions: As directed (DME) blood-glucose meter [OneTouch Verio Meter] Misc See Rx Instructions .ROUTE .MEDSUPPLY Qty: 1 0RF Rx Instructions: As directed (DME) OneTouch Verio test strips Strip See Rx Instructions .ROUTE .MEDSUPPLY Qty: 100 0RF Rx Instructions: As directed (DME) Aerochamber MV Spacer See Rx Instructions .ROUTE .MEDSUPPLY Qty: 1 0RF Rx Instructions: As directed ipratropium-albuterol 0.5 mg-3 mg(2.5 mg base)/3 mL solution for nebulization 3 ml inhalation Q6H PRN (Reason: for wheezing) Qty: 180 2RF albuterol sulfate 90 mcg/actuation HFA aerosol inhaler 2 puff PO Q4H PRN (Reason: for wheezing) 30 Days Qty: 1 6RF Repatha SureClick 140 mg/mL pen injector 140 mg subcut Q2W Qty: 2 5RF sucralfate 1 gram tablet 1 g PO BID PRN (Reason: Upper abdominal pain) Qty: 60 0RF acetaminophen 500 mg tablet 500 mg PO Q6H PRN (Reason: fever or pain) Qty: 14 0RF gabapentin 300 mg capsule 300 mg PO BID PRN (Reason: pain) Qty: 30 0RF ondansetron 4 mg tablet,disintegrating 4 mg PO Q6H PRN (Reason: nausea and vomiting) Qty: 10 0RF simethicone [Gas Relief Extra Strength] 125 mg capsule 0 mg PO spironolactone 25 mg tablet 25 mg PO DAILY (DME) pen needle, diabetic 32 gauge x 5/32 needle See Rx Instructions .ROUTE .MEDSUPPLY Qty: 50 Rx Instructions: As directed pioglitazone 45 mg tablet 45 mg PO DAILY budesonide 32 mcg/actuation spray,non-aerosol 2 spray intranasal DAILY 30 Days Qty: 8.43 7RF Rx Instructions: administer into each nostril budesonide 0.5 mg/2 mL suspension for nebulization 0.5 mg inhalation BID 30 Days Qty: 120 11RF Lantus Solostar U-100 Insulin 100 unit/mL (3 mL) insulin pen 20 unit subcut DAILY fluticasone propion-salmeterol [Advair HFA] 115-21 mcg/actuation HFA aerosol inhaler 2 puff PO Q12H Qty: 12 11RF carvedilol 3.125 mg tablet 3.125 mg PO BID Qty: 60 5RF Rx Instructions: must administer with a meal/food BP medication clopidogrel 75 mg tablet 75 mg PO DAILY Qty: 90 3RF Rx Instructions: Blood thinner for heart latanoprost 0.005 % drops 1 drp ophthalmic (eye) BEDTIME losartan 50 mg tablet 50 mg PO DAILY Qty: 30 5RF Interventions: ED Discharge Assessment Last Done: 10/18/24 10:15 Discharge Date/Time: 10/18/24 10:16 Print Language: Persian
[2024-10-18 09:36] VITALS: BP 149/54; PULSE 56; RESP 12; TEMP 36.6; O2SAT 99
--- NOTE | 2024-10-18 09:41 | PC.NURSE ---
Pt has acetaminophen allergy listed, pt denies having allergy. Requests Tylenol for pain, medicated with Tylenol as charted.
[2024-10-18 10:15] VITALS: BP 149/54; PULSE 56; RESP 12; TEMP 36.6; O2SAT 99
== END 2024-10-18 10:16 | disposition home or self-care (01) ==
PROVIDERS: Emergency Provider Emergency Medicine; PCP Family Medicine
DX: M54.2 Cervicalgia (principal); I49.9 Cardiac arrhythmia, unspecified; I10 Essential (primary) hypertension; E11.9 Type 2 diabetes mellitus without complications; Z79.4 Long term (current) use of insulin; Z79.899 Other long term (current) drug therapy
CPT/HCPCS: 36415; 80053; 83735; 84484; 85025; 93005; 99283; 99284

== ENCOUNTER → 2024-10-18 06:44 | Outpatient (BNV) | payer OTHER, SELFPAY | PROVIDERS: Emergency Provider Emergency Medicine; PCP Family Medicine; Visit Provider Internal Medicine Cardiovascular Disease | DX: I49.9 Cardiac arrhythmia, unspecified (principal); I25.2 Old myocardial infarction | CPT/HCPCS: 93010 ==

== ENCOUNTER 2024-11-07 13:19 | Outpatient (REF) | payer OTHER, SELFPAY ==
--- OUTSIDE RECORDS SUMMARY | 2024-11-07 15:55 | XMS_ITS | Clinical Summary ---
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 History of colon polyps 07/24/2018 DX:Histo ry of colon polyps ROXIE (obstructive sleep apnea) 07/24/2018 DX :ROXIE (obstructive sleep apnea) Type 2 diabetes mellitus wit hout complication ([facility] V24, [facility] V28) 07/24/2018 DX:Type 2 diabetes mellitus without complication ([facility]) HTN (hypertension) DX:HTN (hyper tension) GERD (gastroesophageal reflux disease) DX:GERD (gastroesophageal reflux disease) Depression DX:Depression 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 ([facility] V24, [facility] V28) DX:Insulin depende nt type 2 diabetes mellitus ([facility]) Social History Tobacco Use Types [...] Influencers of Health Screening 01/25/2022 Depression Screening 02/27/2024 COVID-19 Vaccine ( season) 2024 02/02/2021, 07/15/2020, 06/24/2020 Influenza Vaccine (#1) 2024 9, 01/09/2018, 04/06/2017, [...] mmol/L LAB CHEMISTRY METHOD 06/25/2024 7:24 PM [facility] Potassium 4.6 3.5 - 5.5 mmol/L LAB CHEMISTRY METHOD 06/25/2024 7:24 PM [facility] Chloride 104 96 - 110 mmol/L LAB CHEMISTRY METHOD 06/25/2024 7:24 PM [facility] CO2 25 21 - 32 mmol/L LAB CHEMISTRY METHOD 06/25/2024 7:24 PM [facility] Anion Gap 7 3 - 11 LAB CHEMISTRY METHOD 06/25/2024 7:24 PM [facility] Glucose 142(H) 70 - 100 mg/dL LAB CHEMISTRY METHOD 06/25/2024 7:24 PM [facility] BUN 33(H) 5 - 25 mg/dL LAB CHEMISTRY METHOD 06/25/2024 7:24 PM [facility] Creatinine 0.92 0.50 - 1.10 mg/dL LAB CHEMISTRY METHOD 06/25/2024 7:24 PM EDT [facility] eGFR 64 >=60 mL/min/1. 73m2 LAB CHEMISTRY METHOD 06/25/2024 7:24 PM EDT [facility] Comment:Calculation based on the Chronic Kidney Disease Epidemiology Collaboration (CKD-EPI) equation refit without adjustment for race. BUN/Creatinine Ratio 35.9 LAB CHEMISTRY METHOD 06/25/2024 7:24 PM EDT [facility] Calcium 9.6 8.5 - 10.5 mg/dL LAB CHEMISTRY METHOD 06/25/2024 7:24 PM EDT [facility] Blood Venous blood specimen / Unknown Venipuncture / Unknown 06/25/2024 6:34 PM EDT 06/25/2024 6:45 PM EDT Lucho Chappell MD LAB BLOOD ORDERABLES Final Resu lt [facility] [address] [place] [address], from Last 3 Months or Most Recently Relevant to Health Maintenance Insurance [facility] MEDIC[facility] Member Subscriber Plan / Payer (Ef fective 2012-Present) Name:Natali Bower Relation to Subscriber:Self Name:Natali Bower Payer ID:[id number] Group ID:[id number] Type:Not on file Address: [place] [address] [place] [id number] Care Teams Slitter And Rewinder Machine Operator Relationship Specialty Start Date End Date Liset Mitchell MD [address] [place] [id number] [facility] - General 08/09/21
== END 2024-11-07 13:20 | disposition home or self-care (01) ==
LOC: HO.CHCLNP 13:19
PROVIDERS: Visit Provider Family Medicine
DX: R30.0 Dysuria (principal)
CPT/HCPCS: 87086

== ENCOUNTER 2024-11-20 12:57 | Outpatient (REF) | payer OTHER, SELFPAY ==
--- NOTE | ~2024-11-20 | CT_ITS ---
CLINICAL HISTORY: R91.8 - Other nonspecific abnormal finding of lung field CT chest without contrast Comparison: CT/SR - CT CHEST WITHOUT IV CONTRAST - 10/18/23 16:39 EDT Findings: There is severe coronary artery disease. The visualized thyroid and mediastinum are unremarkable. There is a calcified granuloma in the right lower lobe. There is a 9 mm noncalcified nodule in the left lower lobe unchanged from the prior examination. Other small nodular opacities are noted unchanged from the prior exam. The visualized upper abdomen is unremarkable. There are severe chronic degenerative changes at the right glenohumeral joint. The lesion was remeasured on the prior study and compared with the current exam. IMPRESSION: 1. There is a 9 mm noncalcified nodule in the left lower lobe unchanged from the prior examination. Please obtain 1 additional follow-up examination in 12 months. 2. Remote granulomatous process. This document has been electronically signed by: Richard Flores MD on 11/21/2024 12:58:15
== END 2024-11-20 12:58 | disposition home or self-care (01) ==
LOC: HO.CT 12:57
PROVIDERS: PCP Family Medicine; Visit Provider Hospitalist
DX: R91.8 Other nonspecific abnormal finding of lung field (principal)
CPT/HCPCS: 71250

== ENCOUNTER → 2024-11-20 12:59 | Outpatient (BNV) | payer OTHER, SELFPAY | PROVIDERS: PCP Family Medicine; Visit Provider Radiology Diagnostic Radiology | DX: R91.1 Solitary pulmonary nodule (principal) | CPT/HCPCS: 71250 ==

== ENCOUNTER 2024-12-20 19:18 | Emergency (ER) | payer OTHER, SELFPAY ==
--- NOTE | 2024-12-20 | ECG_ITS ---
Test Reason : NAUSEA AND VOMITING Blood Pressure : */* mmHG Vent. Rate : 54 BPM Atrial Rate : 54 BPM P-R Int : 178 ms QRS Dur : 90 ms QT Int : 430 ms P-R-T Axes : 52 -41 22 degrees QTcB Int : 407 ms Sinus bradycardia with sinus arrhythmia Left axis deviation Minimal voltage criteria for LVH, may be normal variant ( Ti product ) Inferior infarct (cited on or before 19-Aug-2022) Abnormal ECG When compared with ECG of 18-Oct-2024 06:44, No significant change was found Referred By: Generic ED Physician Electronically Signed By: LALITHA PARMAR MD
--- NOTE | ~2024-12-20 | CT_ITS ---
CLINICAL HISTORY: abd pain CT abdomen and pelvis with contrast Comparison: CT/SR - CT CHEST WO IV CON - 11/20/24 13:07 EDT Findings: There is minimal bibasilar atelectasis. There is severe coronary artery calcification. The liver, gallbladder, pancreas, spleen, adrenal glands, and kidneys are unremarkable. The appendix is normal. There is sigmoid diverticulosis. The gastrointestinal tract is otherwise unremarkable. The aorta is normal in diameter. There are no enlarged lymph nodes. Patient is status post hysterectomy. The bladder is unremarkable. There is no acute fracture or suspicious lytic or sclerotic lesion. There is a hemangioma within T11 vertebral body. There is a stable mild T11 compression fracture. There are degenerative changes throughout the lumbar spine. IMPRESSION: 1. No acute abnormality in the abdomen or pelvis. 2. Chronic findings as above. This document has been electronically signed by: Sonny Holliday MD on 12/21/2024 00:07:38
[2024-12-20 19:25] VITALS: BP 130/90; BP 149/42; PULSE 56; PULSE 70; RESP 16; TEMP 36.9; O2SAT 100; O2SAT 99; BMI 28.2
[2024-12-20 19:56] LABS: MANUAL DIFF FLAG NO
[2024-12-20 19:58] LABS: Hematocrit 39.7 % (37.0-47.0); Hemoglobin 13.7 g/dl (12.0-16.0); Imm Gran Abs Auto 0.01 X10*3/uL (0.00-0.03); Imm Gran Pct Auto 0.2 % (0.0-0.4); Lymphocytes Absolute Auto 2.4 X10*3/uL (1.2-4.9); Mean Corpuscular HGB Conc 34.5 g/dl (31.0-35.0); Mean Corpuscular Hemoglobin 30.8 pg (27.0-33.0); Mean Corpuscular Volume 89.2 fL (80.0-98.0); NRBC Abs Auto 0.000 X10*3/uL (0.0-0.012); NRBC Pct Auto 0.0 /100WBC (0.0-0.2); Platelet Count 202 X10*3/uL (160-400); Red Blood Count 4.45 X10*6/uL (4.20-5.50); White Blood Count 5.5 X10*3/uL (4.8-10.8)
--- OUTSIDE RECORDS SUMMARY | 2024-12-20 19:59 | XMS_ITS | Encounter Summary ---
Author Organization [employer] Address [address] [facility] [address] [address] [place] [address] Care Team Providers Care Lye Bath Operator Name Role Phone Liset Mitchell MD Primary Care Provider [phone] Reason for Visit * Reason Onset Date Comments FYI 08/07/2024 Encounter Details Date Type Department Care Team ([facility] st Contact Info) Description 08/07/2024 Telephone [facility] MED[facility]INE [address] [place] [address] Liset Mitchell MD [address] [place], [place] [id number] FYI Social History Tobacco Use Types Packs/Day [...] 2:30 PM EDT Tc from [place] with [facility] Cardiac Rehab wanting to leave an FYI with pcp for upcoming visit tomorrow. Pt has: Declined Psychiatrist Refused to take her cetrezine despite feelign symptoms of depression SAMPLE GRADER quit She was to start cholesterol injection but was never able to Pt has also been put on hold for cardiac rehab and would like pcp to follow up with pt tomorrow regarding concerns above. If any questions you can contact Leda at [phone] ext [phone]. documented in this encounter Plan of Treatment Not on file documented as of this encounter Visit Diagnoses Not on filedocumented in this encounter Additional Health Concerns Assessment Noted Time PHQ-9 Depression Total Score: 4 02/28/19 25 9:06 AM EST documented as of this encounter Care Teams Lye Bath Operator Relationship Specialty Start Date End Date Liset Mitchell MD [address] [place] [address] PCP - General Family Medicine 09/14/20 documented as of this encounter
--- OUTSIDE RECORDS SUMMARY | 2024-12-20 19:59 | XMS_ITS | Clinical Summary ---
Author Organization [facility] Address [address] [place] [id number] Phone Care Team Providers Care Drapery Operator Name Role Phone Liset Mitchell MD Primary Care Provider [phone] Allergies Active Allergy Reactions Criticality Noted Date Comments Amlodipine 04/29/2024 Ezetimibe 11/04/2021 Other reaction(s): side effects Fluticasone 07/27/2022 Other reaction(s): lip swelling Hydrocodone Nausea And Vomiting 07/27/2022 Ibuprofen 07/27/2022 Other reaction(s): Stomach Upset Lisinopril 05/25/2023 Metformin 07/27/2022 Other reaction(s): stomach pain Mold Extracts 02/07/2021 Oxycodone Nausea And Vomiting 07/27/2022 Sitagliptin 07/27/2022 Other reaction(s): stomach pain Atorvastatin 04/29/2024 Irqaohv-Edk-Nah Reductase Inhibitors 04/29/2024 Umeclidinium High 07/26/2022 Other reaction(s): Chest Pain Medications ipratropium-al buteroL (DUONEB) 0.5-3 mg (2.5 mg base)/3 mL nebulizer solution every 6 (six) hours as needed for wheezing. Active fluticasone propion-salmet Tiffany (ADVAIR HFA) 115-21 mcg/actuation inhaler Inhale into the lungs every 12 (twelve) hours. Active simethicone (GAS-X ORAL) Take by mouth. 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 The [place] [employer] recommends a goal of A1c of 7.5 to 8% in older patients with moderate comorbidities and life expectancy less than 10 years. The [place] [employer] recommends a goal of less [...] informs me that she is going to [place] for the winter months I gave her [...] Encounters Date Type Department Care Team Description 11/05/2024 9:15 AM EDT Office Visit [address] [place] [address] Torsten Rizo PA-C Swannie, Ward, PTA Verea, Armando Chronic right shoulder pain (Primary Dx) 11/03/2024 8:45 AM EDT Office Visit [address] [place] [address] Torsten Rizo PA-C Hodges, Zachary K, PT Chronic right shoulder pain (Primary Dx) 10/30/2024 8:30 AM EDT Office Visit [address] [place] [address] Torsten Rizo PA-C Hodges, Zachary K, PT Kera Arias Chronic right shoulder pain (Primary Dx) 10/22/2024 8:45 AM EDT Office Visit [address] [place] [address] Torsten Rizo PA-C Hodges, Zachary K, PT [place] Mahoney Chronic right shoulder pain (Primary Dx) 10/22/2024 Plan of Care Documentation [address] [place] [address] 10/13/2024 Orders Only [facility] [address] [place] [id number] Magali Velasquez RN Right rotator cuff tear arthropathy (Primary Dx); Right shoulder pain 10/09/2024 Telephone [facility] [address] [place] [address] Richard Dixon DO from Last 3 Months Family History Medical [...] 06/05/2024 11:05 AM EDT Plan of Treatment Health Maintenance Due Date Last Done Comments DEPRESSION SCREENING 1957 HEPATITIS C SCREENING 12/07/1963 OSTEOPOROSIS SCREENING INITIAL (ONE-TIME) 2010 ZOSTER VACCINES (2 of 3) 05/27/2014 04/01/2014 DIABETIC EYE EXAM 2020 RSV VACCINE (1 - 1-dose 75+ series) 2020 POTASSIUM LEVEL 06/20/2024 06/21/2023, 10/13/2021 INFLUENZA VACCINE (#1) 2024 9, 01/09/2018, 04/06/2017, Additional history exists COVID-19 VACCINE (2024- season) 2024 HEMOGLOBIN A1C 12/03/2024 06/03/2024, 04/0 05/2024, 12/24/2023, Additional history exists BLOOD PRESSURE 12/05/2024 06/05/2024 URINE MICROALBUMIN/CREATININE RATIO 12/23/2024 12/24/2023, 12/19/2022, 10/13/2021 LIPID PANEL 08/08/2025 08/08/2024, 11/27, 10/10/2023, Additional history exists Adult Td,Tdap Booster 03/27/2033 03/27/2023 , 05/21/2012, [...] Procedure Name Priority Date/Time Associated Diagnosis Comments AMB REFERRAL TO [facility] PHYSICAL THERAPY Routine 10/22/2024 11:36 AM EDT Right shoulder pain Right rotator cuff tear arthropathy HEMOGLOBIN A1C Routine 06/03/2024 11:17 AM EDT Type 2 diabetes mellitus with microalbuminuria, with long-term current use of insulin MICROALBUMIN/CREATI NINE RATIO, RANDOM URINE Routine 12/24/2023 10:28 AM [...] Recently Relevant to Health Maintenance Results * Ambulatory referral to [facility] Physical Therapy (10/22/2024 11:36 AM EDT) Other us Gennaro Nettles PA-C AMB [facility] REFERRALS Final Res ult * (ABNORMAL) Hemoglobin A1c (06/03/2024 11:17 AM EDT) HEMOGLOBIN A1C 7.1(H) 4.3 - 5.8 % [facility] Blood 06/03/2024 11:1 7 AM EDT 06/03/2024 11:19 AM EDT Richard Dixon DO LAB BLOOD ORDERABLES Final Resul t Performing Organization Address City/[facility]/ZIP Co de Phone Number [address] [address] * (ABNORMAL) Microalbumin/creatinine ratio, random urine (12/24/2023 10:28 AM EDT) URINE MICROALBUMIN 3.0(H) 0 - 2.3 mg/dL [facility] URINE CREATININE 201 mg/dL [facility] MICROALB/CRE RATIO 14.9 0 - 20 mg/g Cre [facility] Urine (Urine) 12/24/2023 10: 28 AM EDT 12/24/2023 10:29 AM EDT Richard Dixon DO URINE ORDERABLES Final Result [address] [phone] * (ABNORMAL) Lipid panel (12/24/2023 10:12 AM EDT) HDL 56 mg/dL [facility] Comment: [...] RISK RATIO 2.3(L) 3.3 - 4.4 C [facility] Blood 12/24/2023 10:1 2 AM EDT 12/24/2023 10:19 AM EDT Richard Dixon DO LAB BLOOD ORDERABLES Final Resul t [facility] [address] [place] [address] * (ABNORMAL) Basic metabolic panel (06/21/2023 9:57 [...] 9:57 AM EDT 06/21/2023 9:59 AM EDT us Richard Dixon DO LAB BLOOD ORDERABLES Final Resul t [facility] [address] [place] [address] from Last 3 Months or Most Recently Relevant to Health Maintenance Insurance MEDICARE REPLACEMENT [place] [id number] [id number] [facility] MEDICARE REPLACEMENT MEDICARE REPLACEMENT MEDICARE REPLACEMENT MEDICARE REPLACEMENT MEDICARE REPLACEMENT [place] [address] MEDICARE REPLACEMENT [facility] MEDICARE REPLACEMENT O MEDICARE REPLACEMENT Member Subscriber Plan / Payer (Ef fective 2012-Present) Name:Natali Bower Relation to Subscriber:Self Name:Natali Bower Payer ID:[id number] (NAIC) [id number] [place] Address: [place] [address] [place] [facility] Care Teams Drapery Operator Relationship Specialty Start Date End Date Liset Mitchell MD [address] [place] [phone] PCP - General Family Medicine 10/12/23 Additional Source Comments The information contained in this document represents components of the legal health record. It is not the complete legal health record.[facility]
--- OUTSIDE RECORDS SUMMARY | 2024-12-20 19:59 | XMS_ITS | Clinical Summary ---
Author Organization [employer] Address [address] [facility] [address] [place] [address] Care Team Providers Care Target Trimmer Name Role Phone Liset Mitchell MD Primary Care Provider [phone] Allergies Active Allergy Reactions Criticality Noted Date Comments Acetaminophen Nausea And Vomiting 07/27/2022 Amlodipine 04/29/2024 Atorvastatin 04/29/2024 Empagliflozin 07/27/2022 Other reaction(s): vaginal itch Other Reaction(s): vaginal itch Evolocumab High 07/21/2024 Other Reaction(s): Hypertension Body aches Ezetimibe 11/04/2021 Other reaction(s): side effects Fluticasone 07/27/2022 Other reaction(s): lip swelling Other Reaction(s): lip swelling Gramineae Pollens Unknown Low 06/26/2022 Hydrocodone Nausea And Vomiting 07/27/2022 Ibuprofen 07/27/2022 Other reaction(s): Stomach Upset Other Reaction(s): Stomach Upset Lisinopril Itching 05/25/2023 Losartan Unknown 07/07/2024 Metformin 07/27/2022 Other reaction(s): stomach pain Other Reaction(s): stomach pain Metoprolol Unknown 08/08/2024 Molds & Smuts 02/07/2021 Nsaids GI intolerance 01/26/2024 Oxycodone Nausea And Vomiting 07/27/2022 Sitagliptin 07/27/2022 Other reaction(s): stomach pain Other Reaction(s): stomach pain Statins 04/29/2024 Umeclidinium Chest Pain High 07/26/2022 Other reaction(s): Chest Pain Medications * This document contains information received from the source organization and may not represent a complete record from that organization. [facility] Artificial Tears 1-0.3 % solution INSTILL 1 DROP INTO BOTH EYES FOUR TIMES DAILY Active latanoprost (Xalatan) 0.005 % ophthalmic solution Administer 1 drop into both eyes at bedtime. 023 Active ipratropium-alb uterol (Duo-Neb) 0.5-2.5 mg/3 mL [...] 10 mL 023 Active Continuous Blood Gluc Campaign Marketing Specialist (FreeStyle Aristides reader) deviceIndicatio ns:Type 2 diabetes mellitus with other circulatory complication, without long-term current use of insulin (HCC) Inject under the skin before breakfast, before lunch, before evening meal, and at bedtime. 1 each 023 Active Myrbetriq 25 MG 24 hr tabletIndicatio ns:Unspecified urinary incontinence TAKE 1 TABLET BY MOUTH EVERY DAY IN THE MORNING 30 tablet 2 Active azelastine (Optivar) 0.05 % ophthalmic solution Active budesonide (Pulmicort) 0.5 MG/2ML nebulizer solution [...] TIMES A DAY FOR 90 DAYS Active cetirizine (ZyrTEC) 10 MG tablet Take 10 mg by mouth in the morning. Active alirocumab (Praluent) 75 MG/ML injection Inject 75 mg under the skin. Active aluminum-magnes ium hydroxide-simet hicone (Maalox MAX) [...] complication, without long-term current use of insulin (HCC) 1 Units before breakfast, before lunch, before evening meal, and at bedtime. 2 each Active psyllium (Metamucil Smooth Texture) 58.6 % powderIndicatio ns:Constipation , unspecified constipation type Take 5.12 g (3 g of fiber) by mouth Once per day. Mix in 8 oz of water. 283 g 11 025 2025 Active Diclofenac Sodium 1 % gelIndications: Musculoskeletal [...] BY MOUTH EVERY MORNING 527 g 3 Active omeprazole (PriLOSEC) [address] capsule TAKE 1 CAPSULE BY MOUTH BEFORE BREAKFAST. 90 capsule 1 Active melatonin 10 MG tabletIndicatio ns:Insomnia, unspecified type TAKE 1 TABLET BY MOUTH AT BEDTIME NEEDED FOR INSOMNIA 90 tablet 1 Active linaCLOtide (Linzess) 145 MCG capsule TAKE 1 CAPSULE BY MOUTH BEFORE BREAKFAST. 30 capsule 11 Active fluticasone (Flonase) 50 MCG/ACT nasal sprayIndication s:Rhinosinusiti s SPRAY 2 SPRAYS INTO EACH NOSTRIL TWICE A DAY 16 g 5 Active losartan (Cozaar) 50 MG tablet Take 50 mg by mouth Once per day. Active Mapap 500 MG capsule TAKE 2 CAPSULES ORALLY EVERY 8 HOURS NEEDED FOR FEVER OR PAIN Active gabapentin (Neurontin) 300 MG capsule Take 1 capsule by mouth if needed in the morning and at bedtime for pain. Active clopidogrel (Plavix) 75 MG tablet Take 1 tablet (75 mg) by mouth Once per day. 90 tablet 1 Active simethicone (Gas Relief Extra Strength) 125 MG chewable tablet TAKE 1 TABLET BY MOUTH NEEDED AFTER MEALS AND AT BEDTIME FOR GAS 120 tablet 2 Active carvedilol (Coreg) 3.125 MG tabletIndicatio ns:Primary hypertension Take 1 tablet (3.125 mg) by mouth with breakfast and with evening meal. 60 tablet 5 5 11:22 AM EDT Active carvedilol (Coreg) 3.125 MG tablet Take 1 tablet (3.125 mg) by mouth with breakfast and with evening meal. 60 tablet 5 025 2024 Discontinued(R eorder (will not trigger notification to Pharmacy)) simethicone (Gas Relief Extra Strength) 125 MG chewable tablet TAKE 1 TABLET BY MOUTH NEEDED AFTER MEALS AND AT BEDTIME FOR GAS 120 tablet 2 025 2024 Discontinued Active Problems Problem Noted Date Diagnosed Date Lumbar radiculopathy, right 08/08/2024 Abdominal bloating 10/26/2023 Assessment & Plan (10/30/2023 [...] 08/17/2023 Essential hypertension 01/12/2023 3 Fibromyalgia 10/25/2022 Nausea 10/25/2022 Right thigh pain 10/25/2022 Dietary counseling [...] syndrome 04/13/2022 Hypertension 04/13/2022 Assessment & Plan (08/09/2024 10:12 AM EDT): Difficult to control, give multiple med sensitivities. Target < 130/80 mmHg. Patient reports variable blood pressure readings, with higher readings in the clinic (156/64 mmHg) compared to home measurements (130/70 mmHg). This discrepancy suggests possible white coat hypertension or anxiety-induced elevations. Patient is currently taking carvedilol and reports using garlic supplements for blood pressure management. Previous trials of hydralazine were unsuccessful due to side effects. Plan: - Continue carvedilol (dose not specified) - Encourage home blood pressure monitoring - Patient to bring home blood pressure logs and device to next appointment in October - Advised to continue current regimen, including natural supplements (garlic) as tolerated Assessment & Plan (07/07/2024 4:53 PM EDT): Patient reports increasing blood pressure. Currently on spironolactone, & carvedilol. Difficult to control due to multiple medication sensitivities. Labs from recent hospitalization, including kidney function, were reported as normal. Plan: - Continue current antihypertensive medications - Add hydralazine 25 mg PO TID with food - Monitor blood pressure before upcoming travel in July - Follow-up appointment scheduled for July 14, 2024, at 3:30 PM Assessment & Plan (02/29/2024 9:30 AM EST): [...] PM EDT): Controlled, continue with current regimen. Gastroesophageal reflux disease 04/13/2022 Diastolic dysfunction 04/13/2022 Asthma 04/13/2022 Lumbar back pain 04/13/2022 Assessment & Plan (08/09/2024 10:12 AM EDT): Patient reports ongoing lower back pain, which recently led to emergency room visits. Gabapentin was prescribed in the ER for pain management. Plan: - Continue gabapentin twice daily, preferably at night due to sedating effects - Monitor for efficacy and side effects Elevated total protein 10/25/2021 Overview (04/13/2022): Last Assessment & Plan: She did not have any monoclonal proteins on serum protein electrophoresis studies. Hyperlipidemia LDL goal <100 10/25/2021 Overview (01/12/2023): Last Assessment & Plan: Controlled based on the last lipid panel HDL was 69 mg/dL and she continues on atorvastatin 80 mg. Assessment & Plan (08/09/2024 10:14 AM EDT): Patient has a history of hypercholesterolemia and reports previous use of unspecified cholesterol medication that was discontinued due to side effects. Current cholesterol status is unclear as recent lab results are not available. Plan: - Order lipid panel - Patient to complete lab work before next visit - Discuss results and potential medication adjustments at follow-up Type 2 diabetes mellitus wit h microalbuminuria, [...] if negative side effects begin. F/u with Sealer Sander for review of heart medication. Labs: Rapid [...] bisoprolol, told her to talk with her hat sprayer as she has hx of CAD. Assessment & Plan (05/26/2023 2:25 PM EDT): At this time patient is fine with no concerns. Continue same treatment plan. Assessment & Plan (10/25/2022 12:13 PM EDT): Patient requested further opinion pertaining to CABG Mild intermittent asthma 07/06/2017 Chronic hip pain 04/20/2017 Osteoarthritis of knee 03/16/2017 Sensorineural hearing loss (SNHL) of both ears 0 08/11/2016 Overview (07/07/2024): Sensorineural hearing loss, bilateral; Note: Date Diagnosed: 08/11/2016 12:23 PM (H90.3) Obesity 03/18/2015 Moderate persistent asthma 03/18/2015 Arthritis 03/18/2015 Depressive disorder 03/18/2015 Constipation 03/18/2015 Assessment & Plan (10/25/2022 12:27 PM EDT): Improved with Linzess. Will resend. Assessment & Plan (05/19/2022 12:52 PM EDT): Uncontrolled. Will incr linzess. Also recommended incr intake of fiber and water. Walking. Also will rx miralax for clean out. RTC if no improvement. Cobalamin deficiency 03/18/2015 Anxiety 03/18/2015 Assessment & Plan (08/09/2024 10:13 AM EDT): Patient exhibits symptoms of anxiety, particularly in medical settings, which may contribute to elevated blood pressure readings. Previous trials of psychiatric medications, including sertraline, have been unsuccessful due to side effects or perceived lack of efficacy. Patient expresses reluctance to see a psychiatrist but acknowledges feelings of loneliness and crying spells at home. Plan: - Prescribe lorazepam 4 tablets for use during upcoming air travel - Recommend follow-up with Raul virk for psychiatric evaluation and potential management - Suggest consideration of adult daycare programs for social interaction and activities Assessment & Plan (07/07/2024 4:54 PM EDT): Contacted behavioral health, concern of polypharmacy. Patient reports needing assistance with daily activities, including dressing and bathing. Currently using [facility] services but reports reduction in afternoon help. Requires re-evaluation for continued services. Plan: - Assist in coordinating re-evaluation for home care services Allergic rhinitis 03/18/2015 Resolved Problems Problem Noted Date Diagnosed Date Resolved Date Hyperlipidemia 04/13/2022 08/09/2024 Assessment & Plan (05/19/2022 12:51 PM EDT): Reviewed labs with patient, will restart pravastatin. Return to care in 3 months and recheck lipids at that moment Acute exacerbation of chroni c obstructive airways disease ([facility]) 07/19/2018 10/25/2022 Type 2 diabetes mellitus 03/18/2015 Assessment & [...] lean protein and fiber to her diet. Encounters Date Type Department Care Team Description 12/19/[address] [address] Liset Mitchell MD triage 12/18/2024 Telephone [facility] [address] [place] [address] Liset Mitchell MD Nurse Triage 12/08/[address] [address] Liset Mitchell MD Med Refill 12/02/2024 Refill [facility] [address] [place] [address] Liset Mitchell MD 11/20/2024 Orders Only [facility] External Provider, [facility] 11/07/2024 11:30 AM EDT Office Visit [facility] [address] [place] [address] Liset Mitchell MD Type 2 diabetes mellitus with microalbuminuria, with long-term current use of insulin ([facility]) (Primary Dx); Dysuria 11/07/2024 Travel 11/06/2024 Telephone [facility] [address] [place] [address] Liset Mitchell MD chart prep 11/04/[address] [address] Liset Mitchell MD 10/30/2024 Patient Outreach [address] [address] Liset Mitchell MD Pre-visit Planning (SDOH screening completed on 07/29/24 ) 10/30/[address] [address] Liset Mitchell MD 10/24/2024 Telephone [facility] [address] [place], [place] [phone] Za Kelly LPN 10/08/2024 Telephone [facility] [address] [place] [address] Rancho Alonzo MD Medication Question 10/07/2024 Orders Only [facility] [address] [place] [address] Rancho Alonzo MD from Last 3 Months Immunizations Immunization Administration Dates Next Due Influenza injectable quadriv alent IIV4 with preservative 12/02/2015,11/13/2014 Influenza, High Dose Seasona l, Preservative Free 02/06/2019,01/09/2018 Influenza, IIV3, injectable 12/02/2015,0 11/13/2014,11/21/2013,11/21,12/19/2012,11/13/2011,04/19/2011 ,10/25/2009,10/29/2008 Influenza, Split (incl. jayme fied surface antigen) 12/19/2012,11/13/2011 Influenza, trivalent, adjuvanted 04/06/2017 Pfizer Covid-19 Vaccine 12+ 02/02/2021 Pneumococcal Conjugate PCV 13 03/18/2015, 016 Pneumococcal [...] Sign Reading Time Taken Comments Blood Pressure 138/69 11/07/2024 11:39 AM EDT Pulse 78 11/07/2024 11:39 AM EDT Temperature 36.7 C (98.1 F) 11/07/2024 11:39 AM EDT Respiratory Rate 20 11/07/2024 11:39 AM EDT Oxygen Saturation 98% 11/07/2024 11:39 AM EDT Inhaled Oxygen Concentration - - Weight 62.3 kg (137 lb 6.4 oz) 11/07/2024 11:39 AM EDT Height 145 cm (4' 9.09 ) 11/07/2024 11:39 AM EDT Body Mass Index 29.64 11/07/2024 11:39 AM EDT Plan of Treatment Health Maintenance Due Date Last Done Comments Diabetes: Foot Exam 12[birth year]07/1955 Eye Exam 12[birth year]07/1955 Zoster Vaccines (2 of 3) 05/27/2014 04/01/2014, 05/2014 RSV Patients and Patients Aged 60 years or older (1 - 1-dose 75+ series) 2020 COVID-19 Vaccine (4 - 2024- season) 2024 02/02/2021, 07/15/2020, 06/24/2020 Influenza Vaccine (#1) 2024 9, 01/09/2018, 04/06/2017, Additional history exists Diabetes: Hemoglobin A1C 02/06/2025 025, 06/03/2024, 05/30/2024, Additional history exists Alcohol/Substance Use Screening 02/28/2025 02/29/2024 Depression Screening 02/28/2025 02/29/2024, 02/28/19 25 SDOH Screening 02/28/2025 02/29/2024 Lipid Panel 08/08/2025 08/08/2024, 09/26, 05/16/2022, Additional history exists Tobacco Screening 11/07/2025 11/07/2024 DTaP/Tdap/Td Vaccines (4 - Td or Tdap) 03/27/2033 03/27/2023, 05/21/2012, 05/21/2012, Additional history exists Pneumococcal Vaccine: 50+ Years Completed 01/04/2024, 03/18/2015, 03/18/2015, Additional history exists Hepatitis C Screening Completed 08/08/2024 HIB Vaccines Aged Out No longer eligi [...] Procedure Name Priority Date/Time Associated Diagnosis Comments CT CHEST WO CONTRAST Routine 11/21/2024 12:58 PM EDT POCT URINALYSIS DIPSTICK Routine 11/07/2024 12:12 PM EDT Dysuria POCT GLYCATED HEMOGLOBIN, TOTAL Routine 11/07/2024 11:52 AM EDT Type 2 diabetes mellitus with microalbuminuria, with long-term current use of insulin (CMS/HCC) POCT GLUCOSE Routine 11/07/2024 11:52 AM EDT Type 2 diabetes mellitus with microalbuminuria, with long-term current use of insulin (CMS/HCC) CULTURE, URINE, ROUTINE Routine 11/07/2024 11:46 AM EDT Dysuria HEPATITIS C AB W/REFL TO HCV RNA, QN, PCR Routine 08/08/2024 12:30 PM EDT Encounter for health-related screening LIPID PANEL, STANDARD Routine 08/08/2024 10:30 AM EDT Type 2 diabetes mellitus with microalbuminuria, with long-term current use of insulin (CMS/HCC) from Last 3 Months or Most Recently Relevant to Health Maintenance Results * CT Chest w/o Contrast (11/21/2024 12:58 PM EDT) Anatomical Region Laterality Modality Body, Chest Computed Tomogra phy 11/21/2024 12:5 8 PM EDT Narrative 11/21/2024 12:59 PM EDT [address] [address] [address] Scan Report Signed Patient: Natali Santos MR#: [id number] 4 : 1945 Acct:[id number] Age/Sex: 78 / F ADM Date: 11/20/24 Loc: HO.CT Attending Dr: Reji Wilks MD Ordering Physician: Reji Wilks MD Date of Service: 11/20/24 Procedure(s): CT chest wo IV con Accession Number(s): [id number] cc: Reji Wilks MD; Liset Mitchell MD Report Number: [id number]: Total DLP = 123.00 mGy-cm Reason for Exam: R91.8 - Other nonspecific abnormal finding of lung field CLINICAL HISTORY: R91.8 - Other nonspecific abnormal finding of lung field CT chest without contrast Comparison: CT/SR - CT CHEST WITHOUT IV CONTRAST - 10/18/23 16:39 EDT Findings: There is severe coronary artery disease. The visualized thyroid and mediastinum are unremarkable. There is a calcified granuloma in the right lower lobe. There is a 9 mm noncalcified nodule in the left lower lobe unchanged from the prior examination. Other small nodular opacities are noted unchanged from the prior exam. The visualized upper abdomen is unremarkable. There are severe chronic degenerative changes at the right glenohumeral joint. The lesion was remeasured on the prior study and compared with the current exam. IMPRESSION: 1. There is a 9 mm noncalcified nodule in the left lower lobe unchanged from the prior examination. Please obtain 1 additional follow-up examination in 12 months. 2. Remote granulomatous process. This document has been electronically signed by: Richard Flores MD on 11/21/2024 12:58:15 Dictated By: Richard Flores MD Signed By: <Electronically signed by Richard Flores MD in OV> 11/21/24 1259 DD/ 1258 TD/TT: 11/21/24 1258 Edge [place]: Procedure Note Donotuseinterpreter, Image - 11/21/[address] [place] [address] [address] Scan Report Signed Patient: Natali Santos GMR#: [id number] 4 : 6Acct:[id number] Age/Sex: 78 / FADM Date: 11/20/24 Loc: HO.CT Attending Dr: Reji Wilks MD Ordering Physician: Reji Wilks MD Date of Service: 11/20/24 Procedure(s): CT chest wo IV con Accession Number(s): [id number] cc: Reji Wilks MD; Liset Mitchell MD Report Number: [id number]: Total DLP = 123.00 mGy-cm Reason for Exam: R91.8 - Other nonspecific abnormal finding of lung field CLINICAL HISTORY: R91.8 - Other nonspecific abnormal finding of lung field CT chest without contrast Comparison: CT/SR - CT CHEST WITHOUT IV CONTRAST - 10/18/23 16:39 EDT Findings: There is severe coronary artery disease. The visualized thyroid and mediastinum are unremarkable. There is a calcified granuloma in the right lower lobe. There is a 9 mm noncalcified nodule in the left lower lobe unchanged from the prior examination. Other small nodular opacities are noted unchanged from the prior exam. The visualized upper abdomen is unremarkable. There are severe chronic degenerative changes at the right glenohumeral joint. The lesion was remeasured on the prior study and compared with the current exam. IMPRESSION: 1. There is a 9 mm noncalcified nodule in the left lower lobe unchanged from the prior examination. Please obtain 1 additional follow-up examination in 12 months. 2. Remote granulomatous process. This document has been electronically signed by: Richard Flores MD on 11/21/2024 12:58:15 Dictated By: Richard Flores MD Signed By: <Electronically signed by Richard Flores MD in OV> 11/21/24 1259 DD/ 1258 TD/TT: 11/21/24 1258 [place]: [facility] External Provider IMG CT PROCEDURES Final Result * POCT Urinalysis (11/07/2024 12:12 PM EDT) Color, UA Yellow Clarity, UA Clear Glucose, UA Negative Bilirubin, UA Negative Ketones, UA Negative Spec Grav, UA 1.010 Blood, UA Negative Negative, None Detected pH, UA 6.0 Protein, UA Negative Urobilinogen, UA 0.2 Leukocytes, UA Negative Negative, Rare, Trace Nitrite, UA Negative Negative, None Detected Appearance, UA clear QC Media Lot # [id number] Lot# Expiration Date Urine 11/07/2024 12:1 2 PM EDT Liset Mitchell MD POINT OF CARE TEST ENTER/EDIT ORDERABLES Final Result * (ABNORMAL) POCT Hgb A1c (11/07/2024 11:52 AM EDT) Hemoglobin A1C 7.4(A) 4.0 - 5.7 % QC Media Lot # [id number] Lot# Expiration Date [id number] Blood 11/07/2024 11:5 2 AM EDT Liset Mitchell MD POINT OF CARE TEST ENTER/EDIT ORDERABLES Final Result * POCT Glucose (11/07/2024 11:52 AM EDT) Glucose Blood, POC 147 60 - 200 mg/dL QC Media Lot # [id number] Lot# Expiration Date 215 Blood Capillary blood specimen / Unknown 11/07/2024 11:52 AM EDT Liset Mitchell MD POINT OF CARE TEST ENTER/EDIT ORDERABLES Final Result * Culture, Urine, Routine (11/07/2024 11:46 AM EDT) Urine Urine specimen obtained by clean catch procedure / Unknown 11/07/2024 11:46 AM EDT 11/07/2024 2:26 PM EDT Comment:UACC Narrative [facility] - 11/08/2024 12:34 PM EDT Urine Culture Report Result Urine Culture < 10,000 cfu/ml Specimen Source: Urine clean catch us Liset Mitchell MD LAB MICROBIOLOGY - GENERAL OR DERABLES Final Result [facility] [address] [place] [phone] * Hepatitis C Antibody with Reflex to HCV, RNA, Quantitative, Real-Time PCR (08/08/2024 12:30 PM EDT) Hepatitis C Antibody Nonreactive Nonreactive [facility] Comment:Antibodies to HCV no t detected; does not exclude early acuteHCV infection. Blood Venous blood specimen / Unknown 08/08/2024 12:30 PM EDT 08/08/2024 2:02 PM EDT us Liset Mitchell MD LAB BLOOD ORDERABLES Final Re sult [facility] [address] [place] [phone] * (ABNORMAL) Lipid Panel, Standard (08/08/2024 10:30 AM EDT) Triglycerides 150(H) <150 mg/dL [facility] Comment:Desirable Triglyceri de: less than 150 mg/dLBorderline High Triglyceride 150-199 mg/dLHigh Triglyceride: 200-499 mg/dLVery High Triglyceride: greater than or equal to 5OO mg/dL Cholesterol 239(H) <200 mg/dL [facility] Comment:Desirable Cholestero l: less than 200 mg/dLBorderline High Cholesterol: 200-239 mg/dLHigh Cholesterol: greater than 239 mg/dL LDL Cholesterol Calculated 165(H) <100 mg/dL [facility] Comment:Desirable LDL: less than 100 mg/dLNear Optimal/Above Optimal LDL: 110- 129 mg/dLBorderline High LDL: 130-159 mg/dLHigh LDL: 160-189 mg/dLVery High LDL: greater than or equal to 190 mg/dL HDL Cholesterol 44 >40 mg/dL [facility] Comment:Desirable HDL: great er than 40 mg/dL Note: This HDL assay may give artificially low results in patients with liver disease. Blood Venous blood specimen / Unknown 08/08/2024 10:30 AM EDT 08/08/2024 2:05 PM EDT us Liset Mitchell MD LAB BLOOD ORDERABLES Final Re sult Performing Organization Address [facility]/State/ZIP Co de Phone Number [facility] [address] [place] [address] [phone] from Last 3 Months or Most Recently Relevant to Health Maintenance Insurance [id number] [facility] [employer]ION OPT[employer] (HMO D-SNP) SAMMY [place] [id number] Care Teams Target Trimmer Relationship Specialty Start Date End Date Liset Mitchell MD [address] [place] [phone] PCP - General Family Medicine 09/14/20
--- OUTSIDE RECORDS SUMMARY | 2024-12-20 19:59 | XMS_ITS | Encounter Summary ---
Author Organization [employer] Address [address] [place] [address] Care Team Providers Care Moss Picker Name Role Phone Liset Mitchell MD Primary Care Provider [phone] Encounter Details Date Type Department Care Team (Late st Contact Info) Description 06/27/2024 Orders Only [facility] [address] [place], [place] [phone] Provider, MD Anne Marie Social History Tobacco [...] documented as of this encounter Care Teams Moss Picker Relationship Specialty Start Date End Date Liset Mitchell MD [address] [place] [address] PCP - General Family Medicine 09/14/20 documented as of this encounter
--- OUTSIDE RECORDS SUMMARY | 2024-12-20 19:59 | XMS_ITS | Encounter Summary ---
Author Organization [employer] Address [address] [facility] [address] [place] [address] Care Team Providers Care Document Restorer Name Role Phone Liset Mitchell MD Primary Care Provider Reason for Visit * Reason Onset Date Comments Nurse Triage 12/18/2024 Encounter Details Date Type Department Care Team ([facility] st Contact Info) Description 12/18/2024 Telephone [facility] [address] [place] [address] Liset Mitchell MD [address] [place] [address] Nurse Triage Social History Tobacco Use Types [...] encounter Miscellaneous Notes * Telephone Encounter - Taryn Ascencio RN - 12/18/2024 1:54 PM EDT TC placed to patient using BLS #ID [id number]. Patient reported she wants to see her PCP due to recent increase in stress. Patient denies any suicidal or homicidal ideations. Patient also declined to talkto Behavioral Health. Patient kept repeating I only want to see Dr. Mitchell . RN offered an appt for 12/19 at 3pm. Patient declined the appt because she was unsure if her daughter can bring her to [facility]. Patient reported she will call back later to see if she can obtain an appt with her PCP. RN advised patient to call back at her earliest convenience. Patient verbalized understanding. PT to F/U PRN Protocol Used: Depression (Adult) Protocol-Based Disposition: See in Office or Video Visit within 3 Days Video visit not offered Positive Triage Questions: * Requesting to talk with a counselor (mental health worker, psychiatrist, etc.) * Patient wants to be seen * Mild depression * All higher-acuity triage questions were negative Care Advice Discussed: * Note to Triager - Depression * Depression - Symptoms * Depression - Causes * Reasons To Call Back - Sadness or depression symptoms persist over 2 weeks - You want to talk with a counselor - You feel like harming yourself - You become worse * Telephone Encounter - Guille Nur - 12/18/2024 12:11 PM EDT Tc from pt requesting an apt with pcp due to having some symptoms. Pt denied reporting headline writer to symptoms. Recruiting Assistant advised that a message will be sent and a nurse will get in with her. Contact pt at [phone] documented in this encounter Plan of Treatment Not on file documented as of this encounter Visit Diagnoses Not on filedocumented in this encounter Additional Health Concerns Assessment Noted Time PHQ-9 Depression Total Score: 4 02/28/19 25 9:06 AM EST documented as of this encounter Care Teams Document Restorer Relationship Specialty Start Date End Date Liset Mitchell MD [address] [place] [address] PCP - General Family Medicine 09/14/20 documented as of this encounter
--- OUTSIDE RECORDS SUMMARY | 2024-12-20 19:59 | XMS_ITS | Encounter Summary ---
Author Organization [employer] Address [address] [facility] [address] [place] [address] Care Team Providers Care Chemists Name Role Phone Liset Mitchell MD Primary Care Provider Reason for Visit * Reason Onset Date Comments Prior Authorization 05/24/2022 Encounter Details Date Type Department Care Team ([facility] st Contact Info) Description 05/24/2022 Telephone [facility] [address] [place] [address] Liset Mitchell MD [address] [place] [address] Prior Authorization Social History Tobacco Use Types [...] Miscellaneous Notes * Telephone Encounter - Vandana Ivey 05/24/2022 10:47 AM EDT Tc from [facility] [...] documented as of this encounter Care Teams Chemists Relationship Specialty Start Date End Date Liset Mitchell MD [address] [place] [address] PCP - General Family Medicine 09/14/20 documented as of this encounter
--- OUTSIDE RECORDS SUMMARY | 2024-12-20 19:59 | XMS_ITS | Encounter Summary ---
Author Organization [employer] Address [address] [facility] [address] [place] [address] Care Team Providers Care Certified Scrum Master Name Role Phone Liset Mitchell MD Primary Care Provider [phone] Reason for Visit * Reason Onset Date Comments Nurse Triage 05/21/2024 Encounter Details Date Type Department Care Team ([facility] st Contact Info) Description 05/21/2024 Telephone [facility] [address] [place] [address] Liset Mitchell MD [address] [place] [address] Nurse Triage Social History Tobacco Use Types [...] CENTER Nurse Jaye advised that company providing LACING OPERATOR services is responsible for LACING OPERATOR replacement andhours. Unsure who provides those services [...] requesting a call back in regards to LACING OPERATOR hours and medical assistance. She reports her LACING OPERATOR is sick, and needs someone in the interim to help with her daily needs She would also like more LACING OPERATOR hours. Please reach out to patient at your earliest convenience. I have two numbers for patients: [phone] * Telephone Encounter - Esperanza Linares LPN - 05/21/2024 2:44 PM EDT Please obtain [facility] ED note from 05/20/24 * Telephone Encounter - Esperanza Linares LPN - 05/21/2024 2:17 PM EDT Triage call to listed number no answer at time of call. Message left to return call to [phone]. Second call placed with Mary Lou Hurst [phone]. Patient confirms she was seen in ED [...] Triage Question: * Patient wants doctor (or RESEARCH AND EVALUATION ANALYST/PA) to measure BP * All higher-acuity triage [...] ED visit on : Date: 05/20/24 Hospital: [facility] Seen for: high blood pressure Symptomatic: no [...] documented as of this encounter Care Teams Certified Scrum Master Relationship Specialty Start Date End Date Liset Mitchell MD [address] [place] [address] PCP - General Family Medicine 09/14/20 documented as of this encounter
--- OUTSIDE RECORDS SUMMARY | 2024-12-20 19:59 | XMS_ITS | Encounter Summary ---
Author Organization [employer] Address [address] [address] [place] [address] Care Team Providers Care Deputy Clerk Name Role Phone Liset Mitchell MD Primary Care Provider [phone] Reason for Visit * Reason Onset Date Comments Medication Question 07/04/2024 Encounter Details Date Type Department Care Team ([facility] st Contact Info) Description 07/04/2024 Telephone [facility] [address] [place] [address] Liset Mitchell MD [address] [place], [place] [id number] Medication Question Social History Tobacco Use Types [...] AM EDT documented as of this encounter Functional Status * Over the last 2 weeks, how often have you been bothered by any of the following problems? Question Answer Date of Assessment Author Feeling nervous, anxious, or on edge 3 07/07/2024 2:02 PM EDT Chirag Echevarria Not being able to stop or control worrying 3 07/07/2024 2:02 PM EDT Chirag Echevarria Worrying too much about different things 2 07/07/2024 2:02 PM EDT Chirag Echevarria Trouble relaxing 1 07/07/2024 2:02 PM EDT Chirag Sellers Being so restless that it is hard to sit still 0 07/07/2024 2:02 PM EDT Chirag Echevarria Becoming easily annoyed or irritable 0 07/07/2024 2:02 PM EDT Chirag Echevarria Feeling afraid as if something awful might happen 2 07/07/2024 2:02 PM EDT Chirag Gusman MINNA-7 Total Score 11 07/07/2024 2:02 PM EDT Chirag Echevarria documented as of this encounter Miscellaneous Notes * Telephone Encounter - Mali Tyler - 07/04/2024 12:05 PM EDT Tc from [facility] with [facility] pharmacy requesting script from all active medication. [facility] JEANIE Pandya - [address] [facility] documented in this encounter Plan of Treatment Not on file documented as of this encounter Visit Diagnoses Not on filedocumented in this encounter Additional Health Concerns Assessment Noted Time PHQ-9 Depression Total Score: 4 02/28/19 25 9:06 AM EST documented as of this encounter Care Teams Deputy Clerk Relationship Specialty Start Date End Date Liset Mitchell MD [address] [place] [address] PCP - General Family Medicine 09/14/20 documented as of this encounter
--- OUTSIDE RECORDS SUMMARY | 2024-12-20 19:59 | XMS_ITS | Encounter Summary ---
Author Organization [employer] Address [address] [facility] 7[address] [place] [address] Care Team Providers Care Vacuum Bottle Assembler Name Role Phone Liset Mitchell MD Primary Care Provider [phone] Encounter Details Date Type Department Care Team ([facility] Contact Info) Description 02/05/2024 Orders Only [facility] [address] [place], [place] [phone] Provider, MD Anne Marie Social History Tobacco [...] documented as of this encounter Care Teams Vacuum Bottle Assembler Relationship Specialty Start Date End Date Liset Mitchell MD [address] [place] [address] PCP - General Family Medicine 09/14/20 documented as of this encounter
--- OUTSIDE RECORDS SUMMARY | 2024-12-20 19:59 | XMS_ITS | Encounter Summary ---
Author Organization [employer] Address [address] [facility] [address] [facility] [address] [place] [address] Care Team Providers Care Development Scientist Name Role Phone Liset Mitchell MD Primary Care Provider [phone] Encounter Details Date Type Department Care Team ([facility] st Contact Info) Description 07/02/2024 Telephone [facility] [address] [place] [address] Liset Mitchell MD [address] [place], [place] [address] Social History Tobacco Use Types Packs/Day Years [...] documented as of this encounter Care Teams Development Scientist Relationship Specialty Start Date End Date Liset Mitchell MD [address] [place] [address] PCP - General Family Medicine 09/14/20 documented as of this encounter
--- OUTSIDE RECORDS SUMMARY | 2024-12-20 19:59 | XMS_ITS | Data Portability ---
Author Organization [place] - [facility], Allergy Address [address] [address] Care Team Providers Care Tank Systems Maintainer Name Role Phone JACKSON PEDRO Primary Care [...] Name and Address Organization Details Recorded Time Asthma 153612690 Active 2016 Other asthma; Note: Date Diagnosed : 03/01/2016 1:00 PM (J45.998) Not Available Count includes the [facility] 4 03:07:46 Impacted cerumen of bilateral ears [id number] 54[address] Active 2016 Impacted cerumen, bilateral ; Note: Date Diagnosed : 03/01/2016 1:00 PM (H61.23) Not Available Count includes the [facility] 4 03:07:45 Nasal congestio n 02285561 Active 2016 Nasal congestio n; Note: Date Diagnosed : 08/11/2016 11:55 AM (R09.81) Not Available Count includes the [facility] 4 03:07:47 Tinnitus of right ear 68967560689 08 Active 2016 Tinnitus, right ear; Note: Date Diagnosed : 08/11/2016 12:22 PM (H93.11) Not Available Count includes the [facility] 4 03:07:46 Otalgia of right ear 0114334025 Active 2016 Otalgia, right ear; Note: Date Diagnosed : 08/11/2016 12:22 PM (H92.01) Not Available Count includes the [facility] 4 03:07:46 Sensorine ural hearing loss of bilateral ears 325744154 Active 2016 Sensorine ural hearing loss, bilateral ; Note: Date Diagnosed : 08/11/2016 12:23 PM (H90.3) Not Available Count includes the [facility] 4 03:07:47 Disturban ce of salivary secretion 98653246 Active 2018 Xerostomi a; Note: Date Diagnosed : 07/24/2018 2:04 PM (K11.7) Not Available Count includes the [facility] 4 03:07:46 Allergic rhinitis 84674064 Active 2018 Other allergic rhinitis; Note: Date Diagnosed : 07/24/2018 2:03 PM (J30.89) Not Available Count includes the [facility] 4 03:07:47 Chronic sialadeni tis 130030584 Active 2018 Chronic sialoaden itis; Note: Date Diagnosed : 07/24/2018 2:03 PM (K11.23) Not Available Count includes the [facility] 4 03:07:46 Chronic rhinitis 46177503 Active 2018 Chronic rhinitis; Note: Date Diagnosed : 08/21/2018 5:21 PM (J31.0) Not Available Count includes the [facility] 4 03:07:47 Chronic pharyngit is 573218 Active 2019 Chronic sore throat; Note: Date Diagnosed : 07/18/2019 3:39 PM (J31.2) Not Available Count includes the [facility] 4 03:07:45 Dysphagia 81799334 Active 2021 Dysphagia , unspecifi ed; Note: Date Diagnosed : 08/10/2021 1:29 PM (R13.10) Not Available Count includes the [facility] 4 03:07:47 Posterior rhinorrhe a 30121896 Active 2024 FARTUN HERNANDEZ PA-C [address] [place] [address],[place] [address], [place], [address] , [facility] 5 09:48:30 Ear pressure sensation 910962598 Active 2024 FARTUN HERNANDEZ PA-C [address] [place] [address],[place] [address], [place], [address] , [facility] 5 12:09:01 Problem Notes None recorded. Procedures Surgical History Date Name Laterality Status Provider Name and Address Organization Details Recorded Time 03/10/19 25 Tympanometry - [address] completed Lorri Levy [place] - [facility] 03/10/2024 12:09:43 Imaging Results None recorded. Procedure Notes None recorded. Medical Equipment None [...] ended release 2016 active Medicatio n ID: [id number] Br and Name: Toprol XL Send Method: [...] mg tablet 2016 active Medicatio n ID: [id number] Br and Name: chlorthal idone Sen d Method: E-Prescri bed Subs Allowed: subs OK Medica tionGener icName: chlorthal idone Not Available Not Available Not Available amlodipine 5 mg tablet TAKE 1 TABLET BY MOUTH EVERY DAY active Not Available Not Available No t Available aspirin 81 mg tablet,del ayed release 2016 active Medicatio n ID: [id number] Br and Name: aspirin S end Method: [...] mg tablet 2016 active Medicatio n ID: [id number] Br and Name: Diovan Se nd Method: [...] mg tablet 2016 active Medicatio n ID: [id number] Br and Name: amlodipin e Send Method: E-Prescri bed Subs Allowed: subs OK Medica tionGeli icName: amlodipin e Not Available Not Available Not Available simvastati n 20 mg tablet 2016 active Medicatio n ID: [id number] Br and Name: simvastat in Send Method: E-Prescri bed Subs Allowed: subs OK Medica tionGeli icName: simvastat in Not Available Not Available Not Available diclofenac 0.1 % eye drops 2016 active Medicatio n ID: [id number] Br and Name: diclofena c sodium Se nd Method: E-Prescri bed Subs Allowed: subs OK Medica tionGener icName: diclofena c sodium Not Available Not Available Not Available diphenhydr amine 25 mg tablet 2016 active Medicatio n ID: [id number] Br and Name: diphenhyd ramine HCl Send Method: E-Prescri bed Subs Allowed: subs OK Medica tionGener icName: diphenhyd ramine HCl Not Available Not Available Not Available Aquaphor topical ointment 2016 active Medicatio n ID: [id number] Br and Name: Aquaphor Send Method: E-Prescri bed Subs Allowed: subs [place] [facility] Not Available Not Available Not [...] 2 spray 2020 active Medicatio n ID: [id number] Pr escribed By Name: NIELS Dumont Name: azelastin e Send Method: E-Prescri bed Subs Allowed: subs [place] Medica tionG[facility]ierra [facility] icName: azelastin e Not Available Not Available [...] 2 puff 2016 active Medicatio n ID: [id number] Du ration Value: 90 Brand Name: Ventolin HFA Send Method: E-Prescri bed Subs Allowed: subs OK Medica tionGener icName: Ventolin HFA Not Available Not Available Not Available Premarin 0.625 mg tablet 2016 active Medicatio n ID: [id number] Br and Name: Premarin Send Method: E-Prescri bed Subs Allowed: subs OK Medica tionGener icName: Premarin Not Available Not Available Not Available rosuvastat in 40 mg tablet TAKE 1 TABLET BY MOUTH EVERY DAY IN THE MORNING active Not Available Not Available No t Available Prilosec OTC 20 mg tablet,del ayed release 2016 active Medicatio n ID: [id number] Br and Name: Prilosec OTC Send Method: E-Prescri bed Subs Allowed: subs OK Medica tionGener icName: Prilosec OTC Not Available Not Available Not Available metformin ER 1,000 mg tablet,ext ended release 24hr (osmotic) 2016 active Medicatio n ID: [id number] Br and Name: metformin Send Method: E-Prescri bed Subs Allowed: subs OK Medica tionGener icName: metformin Not Available Not Available Not Available albuterol sulfate concentrat e 2.5 mg/0.5 mL solution for nebulizati on 2016 active Medicatio n ID: [id number] Br and Name: albuterol sulfate S end [...] aerosol inhaler 2016 active Medicatio n ID: [id number] Br and Name: Flovent HFA Send Method: [...] Meter kit 2016 active Medicatio n ID: [id number] Br and Name: FreeStyle Lite Meter Sen [...] oxide) capsule 2016 active Medicatio n ID: [id number] Br and Name: magnesium oxide Sen d Method: E-Prescri bed Subs Allowed: subs OK Medica tionGener icName: magnesium oxide Not Available Not Available Not Available lidocaine 5 % topical ointment 2016 active Medicatio n ID: [id number] Br and Name: lidocaine Send Method: E-Prescri bed Subs Allowed: subs OK Medica tionGener icName: lidocaine Not Available Not Available Not Available vitamin B12 1,000 mcg-folic acid 400 mcg sublingual tablet 2016 active Medicatio n ID: [id number] Br and Name: vitamin S32-mapno acid Send Method: E-Prescri bed Subs Allowed: subs OK Medica tionGener icName: vitamin H30-zxdnk acid Not Available Not Available Not Available Tanzeum 50 mg/0.5 mL subcutaneo us pen injector 2016 active Medicatio n ID: [id number] Br and Name: Tanzeum S end Method: E-Prescri bed Subs Allowed: subs OK Medica tionGener icName: Tanzeum Not Available Not Available Not Available Jardiance 10 mg tablet 2018 active Medicatio n ID: [id number] Du ration Value: 30 Brand Name: Jardiance Send Method: E-Prescri bed Subs Allowed: subs OK Medica tionGener icName: Jardiance Not Available Not Available Not Available DeVilbiss PulmoNeb LT Compressor -Nebulizer 2016 active Medicatio n ID: [id number] Br and Name: DeVilbiss PulmoNeb LT Comp-Neb [...] perineal applicator 2016 active Medicatio n ID: [id number] Br and Name: Anusol-HC Send Method: E-Prescri bed Subs Allowed: subs OK Medica tionGener icName: Anusol-HC Not Available Not Available Not Available Qvar RediHaler 80 mcg/actuat ion HFA breath activated aerosol 2018 active Medicatio n ID: [id number] Du ration Value: 30 Brand Name: Qvar RediHaler Send Method: E-Prescri bed Subs Allowed: subs OK Medica tionGener icName: Qvar RediHaler Not Available Not Available Not Available BD Geetha 2nd Gen Pen Needle 32 gauge x 5/32 USE 1 EACH EVERY MORNING active Not [...] Address Organization Details Last Updated DateTime 03/10/2024 42903.08 g 33 kg/m2 142.24 cm Roxane Merlos [place] - [facility] 03/10/2024 11:38:17 Social History None recorded. Functional Status None recorded. Mental Status None recorded. Family History Nothing Reported. Medical History No medical history recorded. Gynecological HistoryNo gynecological history recorded. Obstetrics History GPAL:G 0 P 0 0 0 0 Past Encounters Encounter ID Performer Location Encounter Start Date Encounter Closed Date Diagnosis/Indication Diagnosis SNOMED-CT Code Diagnosis ICD10 Code Diagnosis IMO Codes Diagnosis Note [id number] FARTUN HERNANDEZ PA-C [facility] [address] [address] 03/10/2024 11:10:06 03/10/2024 12:30:23 Ear pressure sensation 172177034 H93.8X9 Audiologic al evaluation results: Tympanomet ry: Right Ear:Type As Left Ear:Type As Allergic rhinitis 546974 04 J30.89 Health Concerns Section Related Observation LastModified by Organization Detai ls LastModified Time None Recorded Concern Status LastModified by Organization Details LastModified Time None Recorded Advance Directives Directive None Recorded Payers Insurance Date Sequence Insurance Name Policy Number Policy Valdovinos Covered Member ID Valdovinos Member ID Guarantor Name 03/10/2024 1 [facility] [employer] - DOS ON OR AFTER 2022 - MEDICARE ADVANTAGE [place] (MEDICARE REPLACEMENT/AD VANTAGE - PPO) Natali Cortes [id number] Natali Cortes 11/12/2024 1 [facility] [employer] - DOS ON OR AFTER 2022 - PENITENTIARY OPTIONS (MEDICARE REPLACEMENT/AD VANTAGE - HMO) Natali Cortes [id number] Natali Cortes Notes Date Note Type Note Provider Name and Address Organization Details Recorded Time 03/10/2024 text/html ROS as noted in the HPI 78yo female with allergic rhinitis on immunotherapy [...] triggered her allergies. CRISTINA JUAREZ MD [address] [place] [address], [phone], [facility] - [facility] 03/10/2024 15:11:38 OBGyn Episode No OBEpisode recorded.
--- OUTSIDE RECORDS SUMMARY | 2024-12-20 19:59 | XMS_ITS | Encounter Summary ---
Author Organization [employer] Address [address] [place] [address] Care Team Providers Care Human Resources Representative Name Role Phone Liset Mitchell MD Primary Care Provider [phone] Reason for Visit * Reason Onset Date Comments triage 12/19/2024 Encounter Details Date Type Department Care Team ([facility] st Contact Info) Description 12/19/2024 Telephone [facility] [address] [place] [address] Liset Mitchell MD [address] [place], [place] [phone] triage Social History Tobacco Use Types Packs/Day Years [...] encounter Miscellaneous Notes * Telephone Encounter - Pricila Perkins RN - 12/19/2024 12:08 PM EDT TC returned to pt. With demo event specialist. Huller Operator made their introduction and then pt. Stated (per demo event specialist) I don't trust you because of your voice and disconnected the call. Call reattempted topt., phone rang twice and then pt. Sent call to . Left requesting call back to eligibility manager upon receipt of message. Pt. Was also triaged yesterday by RN and declined available appointment. Pt. To f/up prn * Telephone Encounter - Lynsey Skelton - 12/19/2024 11:30 AM EDT Symptom: Anxiety or Panic Attack Outcome: Schedule an urgent appointment (within 4 hours) or talk to a nurse or provider soon Reason: Anxiety keeps from normal daily activities (such as school or work) The caller accepted this outcome. Pcp Dr Mitchell documented in this encounter Plan of Treatment Not on file documented as of this encounter Visit Diagnoses Not on filedocumented in this encounter Additional Health Concerns Assessment Noted Time PHQ-9 Depression Total Score: 4 02/28/19 25 9:06 AM EST documented as of this encounter Care Teams Human Resources Representative Relationship Specialty Start Date End Date Liset Mitchell MD [address] [place] [address] PCP - General Family Medicine 09/14/20 documented as of this encounter
--- OUTSIDE RECORDS SUMMARY | 2024-12-20 19:59 | XMS_ITS | Encounter Summary ---
Author Organization [employer] Address [address] [facility] 7t [place] [address] Care Team Providers Care Home Health Care Coordinator Name Role Phone Liset Mitchell MD Primary Care Provider Encounter Details Date Type Department Care Team ([facility] Contact Info) Description 01/30/2024 Orders Only [facility] [address] [place], [place] [phone] Provider, MD Anne Marie Social History Tobacco [...] documented as of this encounter Care Teams Home Health Care Coordinator Relationship Specialty Start Date End Date Liset Mitchlel MD [address] [place] [address] PCP - General Family Medicine 09/14/20 documented as of this encounter
--- OUTSIDE RECORDS SUMMARY | 2024-12-20 20:00 | XMS_ITS | Encounter Summary ---
Author Organization [facility] Address [address] [place] [address] [place] [address] Phone Care Team Providers Care Staff Electronic Warfare Officer Name Role Phone Liset Mitchell MD Primary Care Provider [phone] Encounter Details Date Type Department Care Team ([facility] st Contact Info) Description 10/09/2024 Telephone [facility] [address] [place] [address] Richard Dixon, DO [address] [place] [address] Social History Tobacco Use Types Packs/Day Years [...] on file documented as of this encounter Plan of Treatment Not on file documented as of this encounter Visit Diagnoses Not on filedocumented in this encounter Care Teams Staff Electronic Warfare Officer Relationship Specialty Start Date End Date Liset Mitchell MD [address] [place] [address] PCP - General Family Medicine 10/12/23 documented as of this encounter Additional Source Comments The information contained in this document represents components of the legal health record. It is not the complete legal health record.[facility]
--- OUTSIDE RECORDS SUMMARY | 2024-12-20 20:00 | XMS_ITS | Encounter Summary ---
Author Organization [employer] Address [address] 7t [place] [address] Care Team Providers Care Taping Machine Operator Name Role Phone Liset Mitchell MD Primary Care Provider [phone] Reason for Visit * Reason Onset Date Comments ER Follow-up 05/15/2023 Encounter Details Date Type Department Care Team ([facility] Contact Info) Description 05/15/2023 Telephone [facility] MEDICINE 230 [place] [address] Liset iMtchell MD 505 [place] [address] ER Follow-up Social History Tobacco Use Types Packs/Day Years Used Date Smoking Tobacco: Never Passive Smoke Exposure: Never Smokeless Tobacco: Never Alcohol Use Standard Drinks/Week Comments Never 0 (1 standard drink = 0.6 oz pur e alcohol) Depression Answer Date Recorded Patient Health Questionnaire-9 Score 0 04/13/2022 Housing Stability Answer Date Recorded What is your housing situation today? I have ciro nogueria 12/12/[address] you li [...] answer. LM to call us back in [place]i. Routing back to [facility] nurses. * Telephone Encounter - Sammy Hall - 05/15/2023 4:01 PM EDT Tc from pt returning phone call. * Telephone Encounter - Julieta Montalvo RN - 05/15/2023 3:29 PM EDT TC placed to patient x 2 regarding ED visit below via [employer] Set Up Operator and without chimney mechanic line. Patient has extended f/u with PCP on 05/25/23. Noted in appointment about recent ED visit for R shoulder pain/dislocation. LM for patient in [place] that we are calling to check in and hope she is feeling better, remindingof upcoming appointment with PCP on 05/25/23 @ 11:15 and asking her to call us if she needs anythingprior to this appointment or needs a sooner appointment. Routing to PCP so she is aware. Patient calling to report ED visit on : Date: 05/13 Hospital: [facility] Seen for: Extremity Injury, Upper shoulder pain while taking x-rays Patient advised will forward to team nurse for follow up * Telephone Encounter - Daniel Rigoberto - 05/15/2023 11:06 AM EDT Patient calling to report ED visit on : Date: 05/13 Hospital: [facility] Seen for: Extremity Injury, Upper shoulder pain [...] documented as of this encounter Care Teams Taping Machine Operator Relationship Specialty Start Date End Date Liset Mitchell MD [address] [place] [address] PCP - General Family Medicine 09/14/20 documented as of this encounter
--- OUTSIDE RECORDS SUMMARY | 2024-12-20 20:00 | XMS_ITS | Encounter Summary ---
Author Organization [employer] Address [address] [facility] 7t [place] [address] Care Team Providers Care Centrifugal Operator Name Role Phone Liset Mitchell MD Primary Care Provider [phone] Encounter Details Date Type Department Care Team ([facility] st Contact Info) Description 05/30/2024 Orders Only [facility] MEDICINE 230 [place], [place] [phone] Eli Rodriguez NP 230 [place], [place] [phone] Social History Tobacco Use Types Packs/Day Years [...] documented as of this encounter Care Teams Centrifugal Operator Relationship Specialty Start Date End Date Liset Mitchell MD [address] [place] [address] PCP - General Family Medicine 09/14/20 documented as of this encounter
--- OUTSIDE RECORDS SUMMARY | 2024-12-20 20:00 | XMS_ITS | Encounter Summary ---
Author Organization [employer] Address [address] 7t [place] [address] Care Team Providers Care Microwave Technician Name Role Phone Liset Mitchell MD Primary Care Provider [phone] Encounter Details Date Type Department Care Team (Late st Contact Info) Description 10/07/2024 Orders Only [facility] 230 [place], [place] [phone] Rancho Alonzo MD 230 [place], [place] [phone] Social History Tobacco Use Types Packs/Day Years [...] documented as of this encounter Care Teams Microwave Technician Relationship Specialty Start Date End Date Liset Mitchell MD 230 [place] [address] PCP - General Family Medicine 09/14/20 documented as of this encounter
--- OUTSIDE RECORDS SUMMARY | 2024-12-20 20:00 | XMS_ITS | Encounter Summary ---
Author Organization [employer] Address [address] [facility] 7t [place] [address] Care Team Providers Care Speech Writer Name Role Phone Liset Mitchell MD Primary Care Provider [phone] Reason for Visit * Reason Comments Med Refill Encounter Details Date Type Department Care Team ([facility] st Contact Info) Description 04/13/2022 Refill [facility] 230 [place] [address] Liset Mitchell MD 505 [place], [place] [phone] Social History Tobacco Use Types Packs/Day Years [...] AM EST documented as of this encounter Functional Status * Over the past 2 weeks, how often have you been bothered by any of the following problems? Question Answer Date of Assessment Author Patient Health Questionnaire -2 Score 0 04/13/2022 10:04 AM Yee Riley [place] * Over the past 2 weeks, how often have you been bothered by any of the following problems? Question Answer Date of Assessment Author Little interest or pleasure in doing things Not at all 04/13/2022 10:04 AM Yee Riley [place] Feeling down, depressed, or hopeless Not at all 04/13/2022 10:04 AM Yee Riley [place] Trouble falling or staying asleep, or sleeping too much Not at all 04/13/2022 10:04 AM Yee Riley [place] Feeling tired or having augustine le energy Not at all 04/13/2022 10:04 AM Yee Riley [place] Poor appetite or overeating Not at all 04/13/2022 10 :04 AM Yee Riley [place] Feeling bad about yourself - or that you are a failure or have let yourself or your family down Not at all 04/13/2022 10:04 AM Yee Riley [place] Trouble concentrating on things, such as reading the newspaper or watching television Not at all 04/13/2022 10:04 AM Yee Riley MA Moving or speaking so slowly that other people could have noticed? Or the opposite - being so fidgety or restless that you have been moving around a lot more than usual. Not at all 04/13/2022 10:04 AM Yee Borrego MA Thoughts that you would be better off or hurting yourself in some way Not at all 04/13/2022 10:04 AM Yee Riley MA Patient Health Questionnaire -9 Score 0 04/13/2022 10:04 AM Yee Riley [place] documented as of this encounter Plan of Treatment Not on file documented as of this encounter Visit Diagnoses Not on filedocumented in this encounter Additional Health Concerns Assessment Noted Time PHQ-9 Depression Total Score: 0 04/13/19 23 10:04 AM EST documented as of this encounter Care Teams Speech Writer Relationship Specialty Start Date End Date Liset Mitchell MD 230 [place] [address] PCP - General Family Medicine 09/14/20 documented as of this encounter
--- OUTSIDE RECORDS SUMMARY | 2024-12-20 20:00 | XMS_ITS | Encounter Summary ---
Author Organization [employer] Address [address] 7[address] [place] [address] Care Team Providers Care Commissary Representative Name Role Phone Liset Mitchell MD Primary Care Provider [phone] Reason for Visit * Reason Onset Date Comments Medication Question 08/13/2024 Encounter Details Date Type Department Care Team ([facility] st Contact Info) Description 08/13/2024 Telephone [facility] MEDICINE 230 [place] [address] Liset Mitchell MD 505 [place], [place] [phone] Medication Question Social History Tobacco Use Types [...] encounter Miscellaneous Notes * Telephone Encounter - Jessu Wilks - 08/13/2024 12:03 PM EDT Tc from [facility] pharmacy stating pt is switching to [facility] on [address] and thy're requesting LORazepam (Ativan) 0.5 MG tablet to be sent. documented in this encounter Plan of Treatment Not on file documented as of this encounter Visit Diagnoses Not on filedocumented in this encounter Additional Health Concerns Assessment Noted Time PHQ-9 Depression Total Score: 4 02/28/19 25 9:06 AM EST documented as of this encounter Care Teams Commissary Representative Relationship Specialty Start Date End Date Liset Mitchell MD 230 [place] [address] PCP - General Family Medicine 09/14/20 documented as of this encounter
--- OUTSIDE RECORDS SUMMARY | 2024-12-20 20:00 | XMS_ITS | Encounter Summary ---
Author Organization [employer] Address [address] 7t [place] [address] Care Team Providers Care Operations Section Manager Name Role Phone Liset Mitchell MD Primary Care Provider [phone] Reason for Visit * Reason Comments Med Refill Encounter Details Date Type Department Care Team ([facility] st Contact Info) Description 07/25/2024 Refill [facility] MEDICINE 230 [place] [address] Liset Mitchell MD 505 [place], [place] [phone] Social History Tobacco Use Types Packs/Day Years [...] documented as of this encounter Care Teams Operations Section Manager Relationship Specialty Start Date End Date Liset Mitchell MD 230 [place] [address] PCP - General Family Medicine 09/14/20 documented as of this encounter
--- OUTSIDE RECORDS SUMMARY | 2024-12-20 20:00 | XMS_ITS | Encounter Summary ---
Author Organization [employer] Address [address] [facility] [address] [place] [address] Care Team Providers Care Vibrator Equipment Tester Name Role Phone Liset Mitchell MD Primary Care Provider [phone] Reason for Visit * Reason Onset Date Comments ER Follow-up 01/29/2024 Encounter Details Date Type Department Care Team ([facility] Contact Info) Description 01/29/2024 Telephone [facility] MED [facility] PEDS 505 [place] [address] Liset Mitchell MD 505 [place] [address] ER Follow-up Social History Tobacco Use Types [...] AM EST Triage call to Pt with [facility] [place] [place] [id number]. Pt was [place] in [facility] [place] 01[place]28[place]24 for High [...] requesting marianne seen today. ASK apt [facility] at 140pm today. Pt agrees with [...] ED visit on : Date: 01/28/24 Hospital[place] [facility] Seen for: High blood [...] documented as of this encounter Care Teams Vibrator Equipment Tester Relationship Specialty Start Date End Date Liset Mitchell MD [address] [place] [address] PCP - General Family Medicine 09/14/20 documented as of this encounter
--- OUTSIDE RECORDS SUMMARY | 2024-12-20 20:00 | XMS_ITS | Encounter Summary ---
Author Organization [employer] Address [address] [facility] 7t [place] [address] Care Team Providers Care Signaling Design Engineer Name Role Phone Liset Mitchell MD Primary Care Provider [phone] Reason for Visit * Reason Comments Med Change Request Encounter Details Date Type Department Care Team ([facility] Contact Info) Description 10/26/2023 Refill [facility] MED & PEDS 505 [place], [place] [phone] Liset Mitchell MD [address] [place] [address] Social History Tobacco Use Types Packs/Day Years [...] documented as of this encounter Care Teams Signaling Design Engineer Relationship Specialty Start Date End Date Liset Mitchell MD [address] [place] [address] PCP - General Family Medicine 09/14/20 documented as of this encounter
--- OUTSIDE RECORDS SUMMARY | 2024-12-20 20:00 | XMS_ITS | Clinical Summary ---
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 History of colon polyps 07/24/2018 DX:Histo ry of colon polyps ROXIE (obstructive sleep apnea) 07/24/2018 DX :ROXIE (obstructive sleep apnea) Type 2 diabetes mellitus wit hout complication 07/24/2018 DX:Type 2 diabetes mellitus without complication (HCC) HTN (hypertension) DX:HTN (hyper tension) GERD (gastroesophageal reflux disease) DX:GERD (gastroesophageal reflux disease) Depression DX:Depression 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 ([facility] V24, [facility] V28) DX:Insulin depende nt type 2 diabetes mellitus ([facility]) Social History Tobacco Use Types Packs/Day [...] mmol/L LAB CHEMISTRY METHOD 06/25/2024 7:24 PM [facility] Potassium 4.6 3.5 - 5.5 mmol/L LAB CHEMISTRY METHOD 06/25/2024 7:24 PM [facility] Chloride 104 96 - 110 mmol/L LAB CHEMISTRY METHOD 06/25/2024 7:24 PM [facility] CO2 25 21 - 32 mmol/L LAB CHEMISTRY METHOD 06/25/2024 7:24 PM [facility] Anion Gap 7 3 - 11 LAB CHEMISTRY METHOD 06/25/2024 7:24 PM [facility] Glucose 142(H) 70 - 100 mg/dL LAB CHEMISTRY METHOD 06/25/2024 7:24 PM [facility] BUN 33(H) 5 - 25 mg/dL LAB CHEMISTRY METHOD 06/25/2024 7:24 PM [facility] Creatinine 0.92 0.50 - 1.10 mg/dL LAB CHEMISTRY METHOD 06/25/2024 7:24 PM EDT [facility] eGFR 64 >=60 mL/min/1. 73m2 LAB CHEMISTRY METHOD 06/25/2024 7:24 PM EDT [facility] Comment:Calculation based on the Chronic Kidney Disease Epidemiology Collaboration (CKD-EPI) equation refit without adjustment for race. BUN/Creatinine Ratio 35.9 LAB CHEMISTRY METHOD 06/25/2024 7:24 PM EDT [facility] Calcium 9.6 8.5 - 10.5 mg/dL LAB CHEMISTRY METHOD 06/25/2024 7:24 PM EDT [facility] Blood Venous blood specimen / Unknown Venipuncture / Unknown 06/25/2024 6:34 PM EDT 06/25/2024 6:45 PM EDT us Scot Anderson Chappell MD LAB BLOOD ORDERABLES Final Resu lt [facility] [address] [place] [address], from Last 3 Months or Most Recently Relevant to Health Maintenance Insurance [facility] MEDICARE Member Subscriber Plan / Payer (Ef fective 2012-Present) Name:Natali Bower Relation to Subscriber:Self Name:Natali Bower Payer ID:[id number] Group ID:[id number] Type:Not on file Address: [address] [facility] [place] [address] Care Teams Pipe Line Maintenance Supervisor Relationship Specialty Start Date End Date Liset Mitchell MD [address] [place] [phone] PCP - General 6/14/22
--- OUTSIDE RECORDS SUMMARY | 2024-12-20 20:00 | XMS_ITS | Encounter Summary ---
Author Organization [employer] Address [address] [facility] 7t [place] [address] Care Team Providers Care Inserting Operator Name Role Phone Liset Mitchell MD Primary Care Provider [phone] Reason for Visit * Reason Comments Med Change Request Encounter Details Date Type Department Care Team ([facility] Contact Info) Description 09/08/2023 Refill [facility] [address] [place], [place] [phone] Rubio Blum MD 505 [place] [address] Social History Tobacco Use Types Packs/Day Years [...] documented as of this encounter Care Teams Inserting Operator Relationship Specialty Start Date End Date Liset Mitchell MD [address] [place] [address] PCP - General Family Medicine 09/14/20 documented as of this encounter
--- OUTSIDE RECORDS SUMMARY | 2024-12-20 20:00 | XMS_ITS | Encounter Summary ---
Author Organization [employer] Address [address] [place] [address] Care Team Providers Care Slicing Machine Tender Name Role Phone Liset Mitchell MD Primary Care Provider [phone] Reason for Visit * Reason Onset Date Comments Results 10/11/2023 Appointment Request 10/11/2023 Encounter Details Date Type Department Care Team ([facility] Contact Info) Description 10/11/2023 Telephone [facility] MEDICINE [address] [place] [address] Liset Mitchell MD [address] [place] [address] Results; Appointment Request Social History Tobacco Use [...] a appt in regards to getting a EXCELSIOR PICKER states is in need documented in this encounter Plan of Treatment Not on file documented as of this encounter Visit Diagnoses Not on filedocumented in this encounter Additional Health Concerns Assessment Noted Time PHQ-9 Depression Total Score: 0 04/13/19 23 10:04 AM EST documented as of this encounter Care Teams Slicing Machine Tender Relationship Specialty Start Date End Date Liset Mitchell MD 230 [place] [address] PCP - General Family Medicine 09/14/20 documented as of this encounter
--- OUTSIDE RECORDS SUMMARY | 2024-12-20 20:00 | XMS_ITS | Encounter Summary ---
Author Organization [employer] Address [address] [facility] 7t [place] [address] Care Team Providers Care Welder Gas Automatic Name Role Phone Liset Mitchell MD Primary Care Provider [phone] Reason for Visit * Reason Comments Med Change Request Encounter Details Date Type Department Care Team ([facility] Contact Info) Description 10/02/2022 Refill [facility] MED & PEDS [address] [place] [address] Carla Cheng MD 230 [place] [address] Social History Tobacco Use Types Packs/Day Years [...] documented as of this encounter Care Teams Welder Gas Automatic Relationship Specialty Start Date End Date Liset Mitchell MD [address] [place] [address] PCP - General Family Medicine 09/14/20 documented as of this encounter
--- OUTSIDE RECORDS SUMMARY | 2024-12-20 20:00 | XMS_ITS | Encounter Summary ---
Author Organization [employer] Address [address] [place] [address] Care Team Providers Care Residential Case Manager Name Role Phone Liest Mitchell MD Primary Care Provider [phone] Reason for Visit * Reason Comments Med Refill Encounter Details Date Type Department Care Team ([facility] st Contact Info) Description 08/14/2024 Refill [facility] MEDICINE [address] [place] [address] Liset Mitchell MD 505 [place], [place] [phone] Social History Tobacco Use Types Packs/Day Years [...] documented as of this encounter Care Teams Residential Case Manager Relationship Specialty Start Date End Date Liset Mitchell MD [address] [place] [address] PCP - General Family Medicine 09/14/20 documented as of this encounter
--- OUTSIDE RECORDS SUMMARY | 2024-12-20 20:00 | XMS_ITS | Encounter Summary ---
Author Organization [employer] Address [address] [facility] [address] [place] [address] Care Team Providers Care Immigration Specialist Name Role Phone Liset Mitchell MD Primary Care Provider [phone] Reason for Visit * Reason Onset Date Comments Triage 07/07/2022 Encounter Details Date Type Department Care Team ([facility] st Contact Info) Description 07/07/2022 Telephone C [facility] MED [facility]EDS [address] [place], [place] [phone] Liset Mitchell MD 505 [place] [address] Triage Social History Tobacco Use Types Packs/Day [...] pt has upcomign appt on 08/03/22 with linux consultant. Pt confirmed that new discharge meds [...] No answer LVM to return call to [facility] triage line. Protocol Used: No Contact [...] The caller accepted this outcome Patient speaks slovenian. documented in this encounter Plan of Treatment Not on file documented as of this encounter Visit Diagnoses Not on filedocumented in this encounter Additional Health Concerns Assessment Noted Time PHQ-9 Depression Total Score: 0 04/13/19 23 10:04 AM EST documented as of this encounter Care Teams Immigration Specialist Relationship Specialty Start Date End Date Liset Mitchell MD [address] [place] [address] PCP - General Family Medicine 09/14/20 documented as of this encounter
--- OUTSIDE RECORDS SUMMARY | 2024-12-20 20:00 | XMS_ITS | Data Portability ---
Author Organization [employer] [facility], [facility] Address [address] [place] [address] Care Team Providers Care Coupling Machine Operator Name Role Phone HIM CCA OTHER [facility] Primary Care Provider [phone] Assessment Encounter Date Assessment Date Assessment LastModified [...] Assessment and Plan as documented by the Event Mgr. We discussed the diagnostic uncertainty of home [...] 03/26/2024 21:24:50 05/21/2024 05/21/2024 As noted, we were called to see this patient regarding concerns of high blood pressure. Evaluation in the field was performed by my sourcing engineer colleague, as noted above, I provided real-time [...] We discussed the need to seek care urgently/emergen tly in the setting of any new or worsening serious symptoms, particularlyshob , chest pain, dizziness, falls, confusion, headaches, vision [...] with PCP [email or web address] Not available 06/24/2024 19:55:49 08/09/2024 08/09/2024 I provided real -time medical direction via phone for this encounter, and was available for additional phone based assistance as needed. I have reviewed and agree with the Assessment and Plan as documented by the Event Mgr. We discussed the diagnostic uncertainty of home visits and the risk associated with this. In this case the patient and I felt this to be an acceptable and reasonable amount of risk given the benefit of avoiding an ED visit. The patient given the opportunity to ask questions. Patient denied any symptoms, just concerned regarding inconsistent B/P & pulse readings. Education provided by medic. VSS. Has f/u call with PCP this week. Advised if develops CP/severe SOB/turning blue/uncontrolle d n/v/d or black/bloody emesis or stool/ AMS/ syncope/ hi fever unresponsive to APAP to call 911- verbalized understanding of instruction [email or web address] Not available 08/09/2024 19:44:09 Plan of Treatment Reminders Order Date Submit Date Provider Last Modified By Organization Details Last Modified Time Details Appointments None recorded. Lab BMP, serum or plasma 2024 025 [facility], [address] [place] [address], [id number] 18:38:47 culture, urine 2024 025 [facility] (Centralized Electronic Ordering - All Locations), Patient Can Go To The Location Of Their Choice, [address] 10:06:03 urinalysis, dipstick 2024 025 [facility], [address] [place] [address], [id number] 19:53:02 BMP, serum or plasma [address], [address] [place] [address], [id number] 21:24:08 rapid SARS CoV 2 Ag, QL IA, respiratory specimen [address], [address] [place] [address], [id number] 21:24:08 rapid flu (A+B) [address], [address] [place] [address], [id number] 21:24:08 Referral None recorded. Procedures None recorded. Surgeries None recorded. Imaging electrocard iogram [address], [id number] 22:26:12 Medication Orders ondansetron HCl (PF) 4 mg/2 mL injection solution 2024 025 [id number] [address] [place], [address], 17:28:52 ondansetron HCl (PF) 4 mg/2 mL injection solution 2024 [id number] [address] [place], [address], 21:24:08 sodium chloride 0.9 % intravenous solution 2024 025 [id number] [place], [address], 21:24:08 ondansetron 4 mg disintegrat ing tablet 2024 025 [id number] [address] [place], [address], 21:24:10 Patient TargetsNo targets recorded. Patient InstructionsNo instructions recorded. Reason for Referral None Reported. Results Created Date Observation Date Name Description Value Unit Range Abnormal Flag Note LastModifiedBy Organization Detail LastModifiedTime 03/26/1903/26/2024 rapid SARS CoV 2 Ag, QL IA, respi rator y speci men rapid SARS CoV 2 Ag, QL IA, respiratory specimen negati ve Not Available [facility] ed [address] [place] [address], [id number] 03/26/2024 20:33:01 03/26/1903/26/2024 rapid flu (A+B) Flu negati ve Not Available [facility] ed [address] [place] [address], [id number] 03/26/2024 20:33:02 05/22/19 25 05/23/2024 URINE CULTU RE,CO MPREH ENSIV E urine culture,comp rehensive Final report Not Available [facility] ([facility]) [address] [facility], [place], [address], 05/23/2024 10:06:03 05/22/19 25 05/23/2024 URINE CULTU RE,CO MPREH ENSIV E result 1 COMMEN T Mixed uroge nital ty 10,00 0-25, 000 colon y formi ng units per mL Not Available [facility] ([facility]) [address] [facility], [place], [address], 05/23/2024 10:06:03 06/25/19 25 06/24/2024 elect rocar diogr am No observ ation record ed. [email or web address] [facility] - [facility] [address] [place] [address], [id number] 06/24/2024 22:15:08 Result Notes None recorded. Medical Equipment None Reported. Allergies Allergen ID Allergen Name Allergen Category Reaction Reaction Severity Criticality Documentation Date Start Date Code Code System Note Provider Name and Address Organization Details Recorded Time 40896 metoprolo l Not available Not available Not available Not available 01/30/2024 6918 RxNorm Not Available [facility] - production 4 17:06:26 6413 ezetimibe medicatio n Not available Not available Not available 11/29/2023 88813 8 RxNorm Not Available [facility] - production 4 13:58:51 6414 fluticaso ne Not available Not available Not available Not available 11/29/2023 19889 RxNorm Not Available [facility] - production 4 13:58:51 6415 hydrocodo ne Not available Not available Not available Not available 11/29/2023 5489 RxNorm Not Available [facility] - production 4 17:06:26 6416 umeclidin ium medicatio n chest pain Not available Not available 11/29/2023 16082 14 RxNorm Giorgio Pathak MD [address] [facility],[address], [place], [address] [place] [address] - [employer] 4 16:24:27 6417 lisinopri l medicatio n Not available Not available Not available 11/29/2023 74112 RxNorm Not Available [facility] - production 13:58:51 [...] Available Not Available Not Available Dexcom G7 Electronics Engineering Technician USE DIRECTED active Not Available Not Available No t Available Dexcom G7 Sensor device USE DIRECTED ..CHANGE EVERY 14 DAYS active Not Available Not Available No t Available Vitals Date Recorded Body height Heart rate Respiratory rate Oxygen saturation Oxygen saturation in Arterial blood by Pulse oximetry Body weight Body temperature Systolic And Diastolic Provider Name and Address Organization Details Last Updated DateTime 5 144.78 cm 83 /min 18 /min 97 % 97 % 99946.0 64 g 98.4 [degF] 153/67 mm[Hg] Not Available [employer] 5 20:31:05 Date Recorded Respiratory rate Heart rate Oxygen saturation Oxygen saturation in Arterial blood by Pulse oximetry Systolic And Diastolic Provider Name and Address Organization Details Last Updated DateTime 5 16 /min 83 /min 98 % 98 % 160/80 mm[Hg] Not Available [employer] [facility] 5 19:06:02 Date Recorded Respiratory rate Heart rate Body height Body weight Heart rate Oxygen saturation Oxygen saturation in Arterial blood by Pulse oximetry Body temperature Systolic And Diastolic Systolic And Diastolic Provider Name and Address Organization Details Last Updated DateTime 5 14 /min 72 /min 157.48 cm 68862.8 g 63 /min 98 % 98 % 98 [degF] 149/81 mm[Hg] 160/76 mm[Hg] Not Available [employer] 5 19:38:03 Date Recorded Heart rate Body temperature Respiratory rate Oxygen saturation Oxygen saturation in Arterial blood by Pulse oximetry Systolic And Diastolic Provider Name and Address Organization Details Last Updated DateTime 5 68 /min 97.7 [degF] 16 /min 98 % 98 % 162/68 mm[Hg] Not Available [employer] 5 17:21:49 Date Recorded Respiratory rate Heart rate Body temperature Oxygen saturation Oxygen saturation in Arterial blood by Pulse oximetry Systolic And Diastolic Provider Name and Address Organization Details Last Updated DateTime 5 16 /min 62 /min 98.1 [degF] 97 % 97 % 162/81 mm[Hg] Not Available [employer] 5 17:30:54 Social History None recorded. Functional Status None recorded. Mental Status None recorded. Family History Nothing Reported. Medical History No medical history recorded. Gynecological HistoryNo gynecological history recorded. Obstetrics History GPAL:G 0 P 0 0 0 0 Past Encounters Encounter ID Performer Location Encounter Start Date Encounter Closed Date Diagnosis/Indication Diagnosis SNOMED-CT Code Diagnosis ICD10 Code Diagnosis IMO Codes Diagnosis Note [id number] Sosa Donnelly MD [facility] [address] [place] [id number] 07/20/2021 17:44:53 11/22/2021 12:52:06 Dysuria 16482818 R30.9 [id number] Holland Lewis MD [facility] [address] [place] [id number] 08/24/2021 17:49:18 11/17/2021 12:06:10 Adverse reaction to drug 42287359 T50.905A Reports some nausea and fatigue immediatel y after taking hydroxyzin e. Denies palpitatio ns (as in the expect note), chest pain, or chest pressure. Asymptomat ic now and feels back at baseline. Advised she go back to taking the hydroxyzin e once a day and communicat e all medication changes closely with primary care provider. [id number] Narendra Hassan MD [facility] [address] [place] [id number] 10/08/2021 16:48:26 11/21/2021 12:43:51 Dysuria 60570785 R30.9 Will await culture prior to treatment given equivocal U/A [id number] Nataliia Grewal MD [facility] [address] [place] [id number] 07/13/2022 17:00:14 07/14/2022 08:55:34 Inguinal pain 345894499 R10.2 [id number] Holland Lewis MD [facility] [address] [place] [id number] 08/24/2022 12:05:17 08/24/2022 22:29:37 Wheezing 79271090 R06.2 suspect viral-william kimberley bronchospa sm. Patient had some improvemen t with a short course of steroids prescribed last week but symptoms persist. No evidence of bacterial superinfec tion based on available data. Offered DuoNeb and a recurrent course of steroids, but patient declined. She will seek further care with her PCP. Red flags reviewed by sourcing engineer and patient in understand ing. [id number] González Campo MD [facility] [address] [place] [phone] 12/12/2022 18:24:35 12/13/2022 22:28:07 Facial swelling 884196468 R22.0 [id number] Rich Lee MD [facility] [address] [place] [id number] 03/26/2023 19:07:48 03/27/2023 10:52:20 Pain in right foot 3422302930 94068 M79.671 This 77-year-ol d female with type 2 diabetes got her right foot caught in a screen today, and she thinks it cut her foot. The sourcing engineer found no visual trauma to her right foot. I recommende d observatio n. She will follow-up with her PCP for any ongoing problems with her foot. The patient agreed with this plan. [id number] Nataliia Grewal MD [facility] [address] [place] [id number] 07/17/2023 13:48:23 07/17/2023 17:51:58 Pain of shoulder region 20600811 M25.519 [id number] González Campo MD [facility] [address] [place] [id number] 08/10/2023 16:32:57 08/10/2023 21:11:42 Seasonal allergic rhinitis 734559756 J30.2 [id number] Luci Corey MD [facility] [address] [place] [phone] 10/22/2023 19:42:26 10/22/2023 21:01:10 Nausea 042712364 R11.0 [id number] Giorgio Pathak MD [facility] [address] [place] [phone] 11/29/2023 10:16:41 11/30/2023 00:42:40 Erythematous rash 542279496 R21 could be cellulitis vs fungal process [id number] Nataliia Grewal MD [facility] [address] [place] [phone] 01/30/2024 21:07:30 01/31/2024 08:54:42 Essential hypertension 75447759 I10 [id number] PRAMOD JEREZ MD [facility] [address] [place] [id number] 02/08/2024 10:51:33 02/08/2024 14:05:30 Lesion of nasal mucosa 171139817 J34.89 [id number] GENE BO MD [facility] [address] [place] [id number] 03/26/2024 20:30:34 03/26/2024 23:58:55 Nausea and vomiting 39563577 R11.2 [id number] Luci Corey MD [facility] [address] [place] [id number] 0 05/21/2024 19:06:00 05/21/2024 21:57:41 Hypertensive disorder 94019988 I10 Abnormal urinalysis 1672 89019 R82.90 Dysuria 34082005 R30.0 [id number] González Campo MD [facility] [address] [place] [phone] 06/24/2024 19:37:52 06/24/2024 21:30:35 Dizziness 043347188 R42 06500 [id number] Anny Hillman MD [facility] [address] [place] [id number] 07/22/2024 17:21:47 07/22/2024 20:01:15 Nausea and vomiting 56675665 R11.2 [id number] As noted, we were called to see this patient regarding concerns of nausea and vomiting. Evaluation in the field was performed by my sourcing engineer colleague, as noted above, I provided real-time direction and supervisio n for this visit. The evaluation revealed 78 yo woman who calls for 3 days of n/v and epigastric pain. She ate toast this morning but vomited afterwards . She has no blood in her emesis and has normal bowel movements, last this morning.Toshia mclaughlin was seen in the ER yesterday with extensive work up that was unrevealin g. She was discharged with zofran and sucralfate . She took one dose of each this morning.Toshia mclaughlin appears well with normal VS including borderline hypertensi on and normal heart rate. She has mild epigastric tenderness .POC labs are normal without electrolyt e changes or abnormal kidney function. Impression :acute nausea, vomiting, possible gastritis Plan:Admin 4mg IV zofran now. Encourage liquids and small sips. Take zofran and sucralfate scheduled for 1-2 days. Dispositio n: We discussed the diagnostic uncertaint y of home visits and the risk associated with this. In this case, the patient and I felt this to be an acceptable and reasonable amount of risk given the benefit of avoiding an ED visit. We discussed the need to seek care urgently/e mergently in the setting of any new or worsening serious symptoms, particular ly changes to consciousn ess, chest pain, dyspnea. [id number] JEFF BILL NP, [facility] ED Medical [facility] [address] [place] [address] 08/09/2024 17:30:50 08/11/2024 19:25:00 Anxiety 87008748 F41.9 70574 Health Concerns Section Related Observation LastModified by Organization Detai ls LastModified Time None Recorded Concern Status LastModified by Organization Details LastModified Time None Recorded Advance Directives Directive None Recorded Payers Insurance Date Sequence Insurance Name Policy Number Policy Valdovinos Covered Member ID Valdovinos Member ID Guarantor Name 08/24/2022 1 [facility] - DOS PRIOR TO 2022 - DUAL ELIGIBLE (MEDICARE REPLACEMENT/AD VANTAGE - HMO) Natali Cortes [id number] Natali Cortes 08/09/2024 1 [facility] - DOS ON OR AFTER 2022 - DUAL ELIGIBLE - HALFWAY OPTIONS AND ONE CARE (MEDICARE REPLACEMENT/AD VANTAGE - HMO) Natali Cortes [id number] Natali Cortes Notes Date Note Type Note Provider Name and Address Organization Details Recorded Time 03/26/2024 text/html ROS as noted in the [facility] CRC Nurse Triage Notes (Linda Stanton - [...] her medication allergies. Educated about response time. HPatterson RN Event Mgr Organization Information for Gila Rosario Legal Name: [employer]. Address: [address] [place] [address], Refractory Tile Helper: Miguel LYN No.: [id number] Event Mgr POC Test Results from Gila Rosario iSTAT [...] ...................... ...................... ...................... ...................... ...................... ...................... ......... Event Mgr Note From Gila Rosario: Sent to a [...] blood draw performed; Chem8+ results: uploaded to [employer]. [facility] consulted and orders rapid covid/flu test; Zofran 4mg IV and Normal Saline 500ml IV. Covid/flu test: neg; Zofran 4mg IV and Normal Saline 500ml IV administered. Pt reports nausea resolved. [facility] sends script to pt's pharmacy. IV removed. Red flags discussed. Pt has no further questions. ...................... ...................... ...................... ...................... ...................... ...................... ......... [facility] Consulted: Gene Bo ...................... ...................... ...................... ...................... ...................... ...................... ......... Disposition: Yaron BO MD [address] [facility],[address], [place], [address], Functional Neuromodulation 03/26/2024 22:16:21 05/21/2024 text/html HPI: Ezetimibe Drug Ingredient Not Specified A llergy ther reaction(s): side effectsFluticasone Drug Ingredient Not Specified A llergy Other reaction(s): lip swellingAdverse Reactions/Drug Intolerances Umeclidinium Drug Ingredient High I ntolerance Other reaction(s): Chest PainAcetaminophen Drug Ingredient N ausea And Vomiting N ot Specified I ntolerance Empagliflozin Drug Ingredient Not Specified I ntolerance Other reaction(s): vaginal itchHydrocodone Drug Ingredient N ausea And Vomiting N ot Specified I ntolerance Ibuprofen Drug Ingredient Not Specified I ntolerance Other reaction(s): Stomach UpsetLisinopril Drug Ingredient Not Specified I ntolerance Metformin Drug Ingredient Not Specified I ntolerance SEE FOLLOWING Allergies:Other reaction(s): stomach painMolds & Smuts Drug Ingredient Not Specified I ntolerance 1 04/10/2020Oxycodone Drug Ingredient N ausea And Vomiting N ot Specified I ntolerance Sitagliptin ..................... ...................... ...................... ...................... ...................... ...................... .......... CRC Nurse Triage Notes (Vicki Jane): Chief Complaints: High Blood Pressure, Urinary Symptoms PMH: COPD/Asthma, Hypertension, Diabetes Mellitus Type 2, Hyperlipidemia, Allergic Rhinitis, Gastroesophageal Reflux Disease (GERD), Coronary Artery Disease, Asthma PMH Reviewed at 05/21/2024:47 Allergies Reviewed at 05/21/2024:47 Comments: [facility]: Event Mgr Organization Information for Rubio Swanson Legal Name: [employer]. Address: [address] [place] [address], Refractory Tile Helper: Miguel LYN No.: [id number] Event Mgr POC Test Results from Rubio Swanson Urine Dipstick (19:12:04) Urine leukocytes: +- ALONSO Urine nitrites: - NIT Urine urobilinogen: - URO Urine protein: - PRO Urine pH: 5 pH Urine blood: - BLO Urine specific gravity: 1.010 SG Urine ketones: - KET Urine bilirubin: - JOSE Urine glucose: - GLU Blood Glucose Measurement (19:14:41) Blood Glucose: 291 mg/dL HPI: Ezetimibe Drug Ingredient Not Specified A llergy ther reaction(s): side effectsFluticasone Drug Ingredient Not Specified A llergy Other reaction(s): lip swellingAdverse Reactions/Drug Intolerances Umeclidinium Drug Ingredient High I ntolerance Other reaction(s): Chest PainAcetaminophen Drug Ingredient N ausea And Vomiting N ot Specified I ntolerance Empagliflozin Drug Ingredient Not Specified I ntolerance Other reaction(s): vaginal itchHydrocodone Drug Ingredient N ausea And Vomiting N ot Specified I ntolerance Ibuprofen Drug Ingredient Not Specified I ntolerance Other reaction(s): Stomach UpsetLisinopril Drug Ingredient Not Specified I ntolerance Metformin Drug Ingredient Not Specified I ntolerance SEE FOLLOWING Allergies:Other reaction(s): stomach painMolds & Smuts Drug Ingredient Not Specified I ntolerance 1 04/10/2020Oxycodone Drug Ingredient N ausea And Vomiting N ot Specified I ntolerance Sitagliptin ..................... ...................... ...................... ...................... ...................... ...................... .......... CRC Nurse Triage Notes (Vicki Jane): Chief Complaints: High Blood Pressure, Urinary Symptoms PMH: COPD/Asthma, Hypertension, Diabetes Mellitus Type 2, Hyperlipidemia, Allergic Rhinitis, Gastroesophageal Reflux Disease (GERD), Coronary Artery Disease, Asthma PMH Reviewed at 05/21/2024: Allergies Reviewed at 05/21/2024:47 Comments: [facility]: seen yesterday at ED for high blood pressure. neg lab and ekg work up. having dysuria, as well. 200/100s yesterday. 180/70 today. no kumar, vision changes, chest pain. called PCP for appt but not appt yet.HTN meds: amlodipine - 5mg; last filled Feb 3Also on qhs insulin, clopidogrel, sertraline, aspirin ...................... ...................... ...................... ...................... ...................... ...................... ......... Event Mgr Note From Rubio Swanson: dispatched for a 78yo female with hypertension and burning urination. Pt reports she was seen yesterday at [facility] for hypertension. Pt reports BP was 200+/100+. Pt was discharged with no finding. Pt reports she called today because she needs med changes to manage bp and recent burning urination. Pt denies h/a, dizziness, cp, sob or nausea at this time. [facility] consulted. Urine dip and lab send out order. Pt informed she can increase her amlodipine from 5mg to 10mg until she can get into her cloth baler. [facility] informs pt to make sure she follows up with PCP or cloth baler. Pt informed of red flags. Pt states she understands. Pt found walking and speaking in full clear sentences with no signs of distress. AO and GCS-15. PERRL. Skin warm/dry. Airway open and lung sounds clear. ABD soft nontender. BGL:291. Rest of exam unremarkable. [facility] Lab Orders: culture, urine: Performed urinalysis, dipstick: Performed ...................... ...................... ...................... ...................... ...................... ...................... ......... [facility] Consulted: Luci Corey ...................... ...................... ...................... ...................... ...................... ...................... ......... Disposition: Fulfilled Luci Corey MD [address] [facility],[address], [place], [address], [employer] - [employer] 05/21/2024 20:47:38 06/24/2024 text/html CRC Nurse Triage Notes (Jaye Smart): Reason For Request: pt has concerns about bp and heart rate Denies: History of Heart Attack, in the setting of active chest pain Active Chest pain, radiates to neck jaw and or arm Diaphoretic/Sweating Describes as c rushing Sudden onset of nausea/Vomiting and shortness of breath. Shortness of Breath Unable to speak in full sentences without distress Chief Complaints: Dizziness, Heart Rate Problems PMH: COPD/Asthma, Hypertension, Diabetes Mellitus Type 2, Hyperlipidemia, Allergic Rhinitis, Gastroesophageal Reflux Disease (GERD), Coronary Artery Disease, Asthma PMH Reviewed at 06/24/2024:55 Allergies Reviewed at 06/24/2024:55 Comments: HR 78 y.o female complains of Dizziness, Heart Rate Problems Referral taken via [employer]. Patient unable to confirm allergies. Patient calling [...] ...................... ...................... ...................... ...................... ...................... ...................... ......... Event Mgr Note From Richard Jamison: Patient alert and oriented complains of intermittent dizziness after using minoxidil. Patient reports she was not dizzy until she started using minoxidil three days ago. Patient reports dizziness came on after product was on her head for a few hours. Patient denies nausea, vomiting vertigo, ear, pain, or pressure, headache, cough, or any other pain or complaint. Patient reports medication s were changed a few months ago [...] extremities, unremarkable good skin TURGOR. ECG to [facility]. [facility] advises patient to stop using minoxidil consider watchful waiting and contact PCP or [facility] for further treatment if symptoms return. Red flags, patient education discussed. ...................... ...................... ...................... ...................... ...................... ...................... ......... [facility] Consulted: González Campo ...................... ...................... ...................... ...................... ...................... ...................... ......... Disposition: Fulfilled González Campo MD [address] [place] [address],[address], [place], [address], Functional Neuromodulation 06/24/2024 21:19:26 07/22/2024 text/html CRC Nurse Triage Notes (Gem Darling): Reason For Request: Patient has stomach pain. Patient Reports: Vague abdominal pain greater than 24 hours; Nausea with or without vomiting; Inability to tolerate foods, fluids or daily medications Denies: Sharp focal or diffuse abdominal pain Vomiting blood/coffee ground material Bloating, jaundice new onset with pain Nausea and vomiting greater than 2 hours with abdominal pain Tearing pain that radiates to back Food Impaction Constipation Diarrhea no blood in stool Chief Complaints: Abdominal Pain PMH: COPD/Asthma, Hypertension, Diabetes Mellitus Type 2, Hyperlipidemia, Allergic Rhinitis, Gastroesophageal Reflux Disease (GERD), Coronary Artery Disease, Asthma PMH Reviewed at 07/22/2024: Allergies Reviewed at 07/22/2024: Comments: 78 y.o female complains of Abdominal Pain Call completed with medical interpreter. Pt has been complaining of stomach pain for 2 days. She was in the hospital yesterday. They gave her medication, but she continues to have abd pain. She stated she was given tests, but nothing was found in the tests. she was given Sucralfate and zofran. She is having nausea and vomiting. She has abd swelling and gas. She had a Normal BM this am I provided information on the mobile health provider response time and advised the patient and/or caregiver to monitor reported signs and symptoms. I discussed the warning signs of when to seek emergency care. Event Mgr Organization Information for [facility] Legal Name: [facility] Address: [address] [place] [address], Refractory Tile Helper: Arcenio Logan MD CLIA No.: [id number] Event Mgr POC Test Results from [facility] (17:20:17) pH: 7.46 pH units pCO2: 37.0 mmHg pO2: 52.6 mmHg Na: 141 mmol/L K: 3.7 mmol/L iCa: 1.20 mmol/L Cl: 103 mmol/L TCO2: 25.1 mEq/L Hct: 43 % Hb: 14.8 g/dL Glu: 155 mg/dL Lac: 0.68 mmol/L Cr: 0.76 mg/dL BUN: 13 mg/dL A mmol/L HCO3: 26.1 mmol/L ...................... ...................... ...................... ...................... ...................... ...................... ......... Event Mgr Note From [place] [facility]: This 78-year-old female with a history including but not limited to COPD, HTN, HLD, DM type II, GERD, CAD requested a visit today to address three days of epigastric abdominal pain and nausea/vomiting. Patient states she went to [facility] emergency department yesterday and had a negative workup that included urinalysis, blood work and imaging. She was discharged home with sucralfate and ondansetron both q6h. Patient states she is vomited four to five times in the last 24 hours and has been unable to keep down any food or jaqui apollo other than applesauce. Patient states when she eats the pain in her stomach gets worse and she then vomits. Patient states she is only taken one dose of both medications. Patient is unsure how to properly dispense the liquid sucralfate. Patient states she had a normal bowel movement this morning and has not had any black/bloody emesis. Patient presents awake and alert, in mild discomfort and speaking full sentences. Her vital signs are reasonably stable and she is afebrile. Nonfocal neurological exam. Normal gait. Lungs are clear throughout auscultation. Abdomen is soft, nondistended, tender in the epigastric region. No lower extremity edema. Unremarkable POC labs are uploaded. I treated with ondansetron 4 mg IVP. We discussed the diagnostic uncertainty of home visits and the risk associated with this. In this case, the patient and I felt this to be an acceptable and reasonable amount of risk given the benefit of avoiding an ED visit. I provided extensive education on her prescriptions and demonstrated the proper way to draw up 10 mL of sucralfate. Patient states she feels comfortable self administering going forward. I provided education on the BRAT diet. I recommend that she either call us back or present back to the emergency department if she is unable to keep fluids down tomorrow. I also instructed her to present back to the emergency department for any new or worsening severe symptoms such as chest pain, severe shortness of breath, severe abdominal or flank pain, high fever, black/bloody stools or emesis, altered mental status. The patient was given the opportunity to ask questions and is agreeable to this plan. [facility] Lab Orders: BMP, serum or plasma: Performed [facility] Medication Orders: ondansetron HCl (PF) 4 mg/2 mL injection solution: Administered ...................... ...................... ...................... ...................... ...................... ...................... ......... [facility] Consulted: Anny Hillman ...................... ...................... ...................... ...................... ...................... ...................... ......... Disposition: Yaron Hillman MD [address] [facility],[address], [place], [address], [employer] ([employer]) - [employer] 07/22/2024 18:06:26 08/09/2024 text/html ROS as noted in the [facility] CRC Nurse Triage Notes (Rajesh Pettit): Reason For Request: Patient seems to have problems with her Blood pressure and just doesn't feel good. Denies: History of Heart Attack, in the setting of active chest pain Active Chest pain, radiates to neck jaw and or arm Diaphoretic/Sweating Describes as c rushing Sudden onset of nausea/Vomiting and shortness of breath. Shortness of Breath Unable to speak in full sentences without distress Chief Complaints: High Blood Pressure PMH: COPD/Asthma, Hypertension, Diabetes Mellitus Type 2, Hyperlipidemia, Allergic Rhinitis, Gastroesophageal Reflux Disease (GERD), Coronary Artery Disease, Asthma PMH Reviewed at 08/09/2024 Allergies Reviewed at 08/09/2024:44 Comments: 78 y.o female complains of High Blood Pressure Patient is Azeri speaking primarily, medical interpreter# [id number]. Patient reports her blood pressure was high, patient states she was worried about the blood pressure readings. Patient states the first BP reading she got was with a systolic of 127 but then she got a reading of 116/60, HR 77. Patient states the last BP she took was 156/74 with HR 61. Patient states she had a little bit of nausea but thinks maybe she needs to eat. Patient denies current chest pain, headache, or changes in her vision. Unclear what patient's specific concern is, patient states she wants someone to come and check to see if her machine is giving her accurate readings. Patient states she went to an ER and she was told she has anxiety, states she does not want to go to the hospital again. Patient does not seem to know her medical history and is unable to confirm medical history at time of call, states she just wants help with her machine. Patient also unable to confirm her allergies, patient seems to have poor understanding of her own medical history. I provided information on the mobile health provider response time and advised the patient and/or caregiver to monitor reported signs and symptoms. I discussed the warning signs of when to seek emergency care -Kimberly Pettit RN ...................... ...................... ...................... ...................... ...................... ...................... ......... Event Mgr Note From [place] [facility]: This 78-year-old female with a history including but not limited to COPD, HTN, HLD, DM type II, GERD, CAD requested a visit today to address an elevated blood pressure reading on her home blood pressure monitor. Patient was concerned because her systolic blood pressure was in the 160s and she had one isolated pulse rating of 44. Every other pulse reading was in the 60s. Patient states her home pulse oximeter is broken and she's not sure how to get a new one. Patient denies any symptoms including chest pain, shortness of breath, headaches, dizziness, fevers, nausea, vomiting, diarrhea. Patient had blood work done yesterday through her PCPs office and is supposed to get a call from them on Sunday to schedule a follow-up appointment. Patient presents awake and alert, visibly anxious, in no acute distress and speaking full sentences. Her vital signs are reasonably stable, blood pressure 162/81, consistent with previous visits. Patient is afebrile. Nonfocal neurological exam. Normal gait. Normal heart tones. Lungs are clear throughout auscultation. Abdomen is soft, nontender, nondistended. No lower extremity edema. We discussed the diagnostic uncertainty of home visits and the risk associated with this. In this case, the patient and I felt this to be an acceptable and reasonable amount of risk given the benefit of avoiding an ED visit. I provided education on using her OTC card to purchase a new pulse oximeter at a local pharmacy. I recommend she call her PCPs office on Sunday to discuss a follow-up visit and present to the emergency department for any new or worsening severe symptoms such as chest pain, severe shortness of breath, headaches, dizziness, high fever, altered mental status. The patient was given the opportunity to ask questions and is agreeable to this plan. ...................... ...................... ...................... ...................... ...................... ...................... ......... [facility] Consulted: Jeff Bill ...................... ...................... ...................... ...................... ...................... ...................... ......... Disposition: Fulfilled JEFF BILL NP, [address] [place] [address],[address], [place], [address], TYLER LUEVANO 08/09/2024 19:44:13 OBGyn Episode No OBEpisode recorded.
[2024-12-20 20:14] LABS: Alanine Aminotransferase 17 U/L (0-31); Albumin Level 4.0 g/dL (3.5-5.0); Alkaline Phosphatase 52 U/L (39-117); Anion Gap 13 (12-20); Aspartate Amino Transferase 27 U/L (5-31); Blood Urea Nitrogen 18 mg/dL (9-16); Calcium 9.1 mg/dL (8.4-10.2); Carbon Dioxide 22 mmol/L (22-29); Chloride 110 mmol/L (96-108); Creatinine Clr Calc Pharmacy 53.6; Estimated Glomerular Filt Rate > 60; Lipase 8 U/L (8-78); Potassium 4.1 mmol/L (3.3-5.1); Sodium 141 mmol/L (135-145); Total Protein 6.9 g/dL (6.5-8.0)
[2024-12-20 20:16] LABS: COVID-19 Test Negative (Negative); IDNOW Serial# 152EDE1D; IDNOW Serial# 16C4AD1C; Influenza B2 Negative (Negative)
[2024-12-20 20:18] LABS: Troponin-I High Sensitivity 8.9 ng/L (<3.5-17.0)
--- NOTE | 2024-12-20 20:22 | PC.NURSE ---
PT biba form home Slovak speaking only AOx4, reporting nausea/weakness since this AM. 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 Denies any ABD pain or vomting/diarrhea. 20g PIV placed in left AC and labs obtained. NSR on monitor VSS and resting comfortably
[2024-12-20 21:44] VITALS: BP 151/59; PULSE 48; RESP 18; O2SAT 98
--- NOTE | 2024-12-20 22:15 | ED.NAVMDI ---
HPI - Nausea/Vomiting/Diarrhea General Chief complaint: Nausea/Vomiting/Diarrhea Stated complaint: n/v Time Seen by Provider: 12/20/24 19:40 History of Present Illness HPI Narrative: Patient is a 79-year-old female presented today with having episodes epigastric pain associated with nausea generalized malaise. There is no focal weakness. No diaphoresis. Positive history of diabetes. No fever no chills. Patient is from home. History of hyperlipidemia, hypertension. No chest pain no diaphoresis no blood in the stool. No pain on urination. No new medications. Previous history of abdominal surgery has a hysterectomy many years ago Related Data Home Medications ?Medication ?Instructions ?Recorded ?Confirmed lancets (Datadecisionuch UltraSoft #100 ea 01/06/20 05/30/24 Lancets) pen needle, diabetic 32 gauge x #50 ea 08/17/20 05/30/24 simethicone 125 mg capsule (Gas 0 mg PO 11/26/20 10/07/24 Relief Extra Strength) spironolactone 25 mg tablet 25 mg PO DAILY 11/26/20 10/07/24 latanoprost 0.005 % eye drops 1 drp ophthalmic (eye) BEDTIME 07/26/22 05/30/24 pioglitazone 45 mg tablet 45 mg PO DAILY 11/21/22 10/07/24 insulin glargine 100 unit/mL (3 20 unit subcut DAILY 10/10/23 10/07/24 mL) subcutaneous pen (Lantus Solostar U-100 Insulin) Previous Rx's ?Medication ?Instructions ?Recorded blood sugar diagnostic (ShangbyTouch #100 ea 01/07/20 Verio test strips) blood-glucose meter (ShangbyTouch #1 ea 01/07/20 Verio Meter) inhalational spacing device #1 ea 01/25/21 (Aerochamber MV spacer) budesonide 32 mcg/actuation nasal 2 spray intranasal DAILY 30 days 11/21/22 spray #8.43 mL ipratropium 0.5 mg-albuterol 3 mg 3 ml inhalation Q6H PRN for 03/30/23 (2.5 mg base)/3 mL nebulization wheezing #180 mL soln budesonide 0.5 mg/2 mL suspension 0.5 mg (2 mL) inhalation BID 30 05/21/23 for nebulization days #120 mL acetaminophen 500 mg tablet 500 mg PO Q6H PRN fever or pain 08/10/23 #14 tabs clopidogrel 75 mg tablet 75 mg PO DAILY #90 tabs 05/30/24 sucralfate 1 gram tablet 1 g PO BID PRN Upper abdominal 07/21/24 pain #60 tabs fluticasone propionate 115 2 puff PO Q12H #12 ea 08/07/24 mcg-salmeterol 21 mcg/actuation HFA inhaler (Advair HFA) gabapentin 300 mg capsule 300 mg PO BID PRN pain #30 caps 08/11/24 ondansetron 4 mg disintegrating 4 mg PO Q6H PRN nausea and 08/11/24 tablet vomiting #10 tabs albuterol sulfate 90 mcg/actuation 2 puff PO Q4H PRN for wheezing 30 08/15/24 aerosol inhaler days #1 ea losartan 50 mg tablet 50 mg PO DAILY #30 tabs 10/07/24 acetaminophen 500 mg capsule 1,000 mg (2 x 500 mg) PO Q8H PRN 10/18/24 fever or pain #14 caps carvedilol 3.125 mg tablet 3.125 mg PO BID #180 tabs 11/11/24 alirocumab 75 mg/mL subcutaneous 75 mg subcut Q2W #2 mL 12/09/24 pen injector (Praluent Pen) Allergies Allergy/AdvReac Type Severity Reaction Status Date / Time fluticasone (Flovent HFA) Allergy Unknown lip Verified 12/20/24 19:40 swelling lisinopril Allergy Itching Verified 12/20/24 19:40 evolocumab (From Repatha AdvReac Intermediate Hypertensio Verified 12/20/24 19:40 SureClick) n umeclidinium (From Incruse AdvReac Intermediate Chest Pain Verified 12/20/24 19:40 Ellipta) empagliflozin (Jardiance) AdvReac Unknown vaginal Verified 12/20/24 19:40 itch metformin AdvReac Unknown stomach Verified 12/20/24 19:40 pain sitagliptin (Januvia) AdvReac Unknown stomach Verified 12/20/24 19:40 pain acetaminophen (From Percocet) AdvReac Nausea and Verified 12/20/24 19:40 Vomiting hydrocodone (From Vicodin) AdvReac Nausea and Verified 12/20/24 19:40 Vomiting ibuprofen (From Motrin) AdvReac Stomach Verified 12/20/24 19:40 Upset oxycodone (From Percocet) AdvReac Nausea and Verified 12/20/24 19:40 Vomiting Review of Systems Review of Systems: Positive [facility] Past Medical History Attestation statement: The following information was validated with the patient. Medical History Dysphagia Tracheobronchomalacia ROXIE (obstructive sleep apnea) Essential hypertension Atherosclerotic cardiovascular disease Urinary incontinence Obese Dyslipidemia Anxiety and depression Gastric pain Sinusitis Chronic allergic rhinitis Asthma Cough Cough Diabetes mellitus Fibromyalgia Pulmonary nodules Surgical History H/O heart artery stent Hx of esophagogastroduodenoscopy History of bronchoscopy Hx of colonoscopy H/O left knee surgery H/O breast biopsy H/O: hysterectomy Family History Family History Father Hypertension Mother Hypertension Diabetes Daughter Diabetes Brother No problems noted. Social History Social History Household Members: Children Alcohol intake: never Patient Tobacco Use Status: Never used Tobacco Smoked in Last 30 Days: No Second Hand Smoke Exposure: Yes Use of substances other than those prescribed or required for medical reasons: No Advance Directives: No Advance Directives Information Provided: Yes Do you have a plan to hurt others: No Plan Physical Exam Exam: Exam: Appearance: Alert. Oriented X3. No acute distress. Eyes: Pupils equal, round and reactive to light. ENT: Pharynx normal. Neck: Normal inspection. Neck supple. No lymph nodes noted. No crepitus CVS: Normal heart rate and rhythm. Pulses normal. Normal S1 and S2 Respiratory: No respiratory distress. Breath sounds normal. No Wheezing. No rales Abdomen: Soft and nontender. No rigidity. No distention. good BS x4 Skin: Skin warm and dry. Normal skin color. Normal skin turgor. Extremities: No lower extremity edema. Neurovascular intact to all extremities. No Lacerations. No Rash Neuro: Oriented X 3. No motor deficit. No sensory deficit. Moving all extermities. No slurred speech Vital Signs: Vital Signs: Last Vital Signs Temp 98.4 F 12/20/24 19:25 Pulse 48 L 12/20/24 21:44 Resp 18 12/20/24 21:44 BP 151/59 H 12/20/24 21:44 Pulse Ox 98 12/20/24 21:44 O2 Del Method Room Air 12/20/24 21:44 BMI result Body Mass Index 28.2 Medications Administered Discontinued Medications Generic Name Dose Route Start Last Admin Trade Name Marla PRN Reason Stop Dose Admin Sodium Chloride 1,000 mls @ 999 mls/hr 12/20/24 22:15 12/20/24 22:22 Ns IV 12/20/24 23:15 999 mls/hr .Q1H1M BENNY Administration Iohexol 85 ml 12/20/24 23:06 12/20/24 23:06 Iohexol 350 Mg/Ml 100 Ml Infus..Btl IV 12/20/24 23:07 85 ml ONCE ONE Administration Medical Decision Making Medical Decision Making [facility] Narrative: My interpretation of patient's EKG showed a sinus pattern with a heart rate of about 70 there is significant Q-waves over the inferior leads. No acute ST segment elevation. No changes from previous EKG. Patient's CT scan of the abdomen showed no acute obstruction no abscess no perforation. No diverticulitis. White count is normal. Kidney function is normal. Sugar is in the 200s range. LFTs normal. Troponin negative. Urine no gross evidence of infection. COVID flu RSV were all negative. patient well-appearing no distress will discharge home Differential Diagnosis Differential Diagnoses: The differential diagnosis associated with the presentation includes Gastroenteritis, anemia, ACS Admission/Observation Consideration of admission/observation: Escalation of care including admission/observation considered Lab Data [facility] Lab Attestation statement: I reviewed the patient's lab results. 12/20/24 19:51 12/20/24 19:51 Labs: Lab Results 12/20/24 12/20/24 12/20/24 Range/Units 19:51 23:14 23:27 WBC 5.5 (4.8-10.8) X10*3/uL RBC 4.45 (4.20-5.50) X10*6/uL Hgb 13.7 (12.0-16.0) g/dl Hct 39.7 (37.0-47.0) % MCV 89.2 (80.0-98.0) fL MCH 30.8 (27.0-33.0) pg MCHC 34.5 (31.0-35.0) g/dl RDW 12.3 (11.0-16.0) % Plt Count 202 (160-400) X10*3/uL MPV 10.1 (9.4-12.3) fL Immature Gran % (Auto) 0.2 (0.0-0.4) % Neut % (Auto) 46.5 (45-73) % Lymph % (Auto) 44.0 H (20-40) % Barton % (Auto) 6.0 (2-11) % Eos % (Auto) 2.4 (0-4) % Baso % (Auto) 0.9 (0-2) % Lymph # (Auto) 2.4 (1.2-4.9) X10*3/uL Barton # (Auto) 0.3 (0.1-1.2) X10*3/uL Eos # (Auto) 0.1 (0.0-0.4) X10*3/uL Baso # (Auto) 0.1 (0.0-0.2) X10*3/uL Abs Immat Gran (auto) 0.01 (0.00-0.03) X10*3/uL Absolute Neuts (auto) 2.5 (2.0-8.3) x10*3/uL Absolute Nucleated RBC 0.000 (0.0-0.012) X10*3/uL Nucleated RBC % (auto) 0.0 (0.0-0.2) /100WBC Sodium 141 (135-145) mmol/L Potassium 4.1 (3.3-5.1) mmol/L Chloride 110 H (96-108) mmol/L Carbon Dioxide 22 (22-29) mmol/L Anion Gap 13 (12-20) BUN 18 H (9-16) mg/dL Creatinine 0.72 (0.5-1.4) mg/dL Estim Creat Clear Calc 53.6 Estimated GFR > 60 POC Glucose 157 H (60-115) mg/dL Random Glucose 224 H (60-115) mg/dL Calcium 9.1 (8.4-10.2) mg/dL Total Bilirubin 0.3 (0.0-1.0) mg/dL AST 27 (5-31) U/L ALT 17 (0-31) U/L Alkaline Phosphatase 52 (39-117) U/L Troponin I High Sens 8.9 (<3.5-17.0) ng/L Total Protein 6.9 (6.5-8.0) g/dL Albumin 4.0 (3.5-5.0) g/dL Lipase 8 (8-78) U/L Urine Color Yellow Urine Appearance Clear Urine pH 5.5 (5.0-9.0) Ur Specific [place] >= 1.030 H (1.005-1.025) Urine Protein Negative (Neg-Trace) mg/dL Urine Glucose (UA) Negative (Negative) mg/dL Urine Ketones Negative (Negative) mg/dL Urine Blood Negative (Negative) Urine Nitrite Negative (Negative) Ur Leukocyte Esterase Small (1+) H (Negative) Urine RBC 0-2 (0-2) /HPF Urine WBC 21-50 H (0-5) /HPF Ur Squamous Epith Cells 6-10 (0-2) /HPF Urine Bacteria Trace (None Seen) Hyaline Casts 0-2 (0-2) /LPF COVID-19 (YAHIR) Negative (Negative) COVID-19 Clin Com See Note Influenza Type A (IVY) Negative (Negative) Influenza Type B (IVY) Negative (Negative) Influenza A & B Note See Note Independent Interpretation I performed an independent interpretation of an: EKG (As above) and CT Scan (No obstruction no abscess no perforation) Radiology Impression Discussion of test interpretation with radiology: I have reviewed the radiologist's reading. External Record Review External record reviewed: Office record Chronic Conditions Patient?s care impacted by: Diabetes and Hypertension Discharge Plan Discharge Clinical Impression: Abdominal pain Patient Disposition: Home, Self-Care Instructions: Abdominal Pain (ED) Prescriptions: No Action (DME) lancets [OneTouch UltraSoft Lancets] Misc See Rx Instructions .ROUTE .MEDSUPPLY Qty: 100 Rx Instructions: As directed (DME) blood-glucose meter [OneTouch Verio Meter] Misc See Rx Instructions .ROUTE .MEDSUPPLY Qty: 1 0RF Rx Instructions: As directed (DME) OneTouch Verio test strips Strip See Rx Instructions .ROUTE .MEDSUPPLY Qty: 100 0RF Rx Instructions: As directed (DME) Aerochamber MV Spacer See Rx Instructions .ROUTE .MEDSUPPLY Qty: 1 0RF Rx Instructions: As directed ipratropium-albuterol 0.5 mg-3 mg(2.5 mg base)/3 mL solution for nebulization 3 ml inhalation Q6H PRN (Reason: for wheezing) Qty: 180 2RF albuterol sulfate 90 mcg/actuation HFA aerosol inhaler 2 puff PO Q4H PRN (Reason: for wheezing) 30 Days Qty: 1 6RF carvedilol 3.125 mg tablet 3.125 mg PO BID Qty: 180 3RF Praluent Pen 75 mg/mL pen injector 75 mg subcut Q2W Qty: 2 5RF sucralfate 1 gram tablet 1 g PO BID PRN (Reason: Upper abdominal pain) Qty: 60 0RF acetaminophen 500 mg capsule 1,000 mg PO Q8H PRN (Reason: fever or pain) Qty: 14 0RF acetaminophen 500 mg tablet 500 mg PO Q6H PRN (Reason: fever or pain) Qty: 14 0RF gabapentin 300 mg capsule 300 mg PO BID PRN (Reason: pain) Qty: 30 0RF ondansetron 4 mg tablet,disintegrating 4 mg PO Q6H PRN (Reason: nausea and vomiting) Qty: 10 0RF simethicone [Gas Relief Extra Strength] 125 mg capsule 0 mg PO spironolactone 25 mg tablet 25 mg PO DAILY (DME) pen needle, diabetic 32 gauge x 5/32 needle See Rx Instructions .ROUTE .MEDSUPPLY Qty: 50 Rx Instructions: As directed pioglitazone 45 mg tablet 45 mg PO DAILY budesonide 32 mcg/actuation spray,non-aerosol 2 spray intranasal DAILY 30 Days Qty: 8.43 7RF Rx Instructions: administer into each nostril budesonide 0.5 mg/2 mL suspension for nebulization 0.5 mg inhalation BID 30 Days Qty: 120 11RF Lantus Solostar U-100 Insulin 100 unit/mL (3 mL) insulin pen 20 unit subcut DAILY fluticasone propion-salmeterol [Advair HFA] 115-21 mcg/actuation HFA aerosol inhaler 2 puff PO Q12H Qty: 12 11RF clopidogrel 75 mg tablet 75 mg PO DAILY Qty: 90 3RF Rx Instructions: Blood thinner for heart latanoprost 0.005 % drops 1 drp ophthalmic (eye) BEDTIME losartan 50 mg tablet 50 mg PO DAILY Qty: 30 5RF Referrals: Liset Mitchell MD [Primary Care Provider, Medical] - 12/24/24 Print Language: Slovenian
[2024-12-20] MEDS: iohexoL 350 MG/ML 100 ML INFUS..BTL 85 ML IV (23:06)
--- NOTE | 2024-12-20 23:12 | PC.NURSE ---
pt back from CT at this time requesting food and to check poc. POC obtained and pt explained we will wait for her scan before she eats
[2024-12-20 23:18] LABS: Glucose, Whole Blood 157 mg/dL (60-115)
--- NOTE | 2024-12-20 23:30 | MHC.EDTECH ---
This health information director ambulated patient to the bathroom, she requires minimal assistance. Urine sample obtained and sent to the lab.
[2024-12-20 23:34] LABS: Appearance Urine Clear; Glucose Urine UA Negative (Negative); PH 5.5 (5.0-9.0); Specific Gravity - Urine >= 1.030 (1.005-1.025); UMIC TRIGGER UACC YES
[2024-12-20 23:39] LABS: UACC Culture Trigger YES
--- NOTE | 2024-12-20 23:39 | PC.NURSE ---
pt 1A to bathroom at this time, states she has trouble walking as this is new onset
[2024-12-21 00:22] VITALS: BP 160/67; PULSE 50; RESP 18; O2SAT 99
[2024-12-21 00:55] VITALS: BP 164/66; PULSE 51; RESP 12; TEMP 36.5; O2SAT 99
== END 2024-12-21 00:54 | disposition home or self-care (01) ==
PROVIDERS: Emergency Provider Emergency Medicine Emergency Medical Services; PCP Family Medicine
DX: R10.9 Unspecified abdominal pain (principal); R11.2 Nausea with vomiting, unspecified; R10.13 Epigastric pain; Z79.899 Other long term (current) drug therapy
CPT/HCPCS: 74177; 80053; 81001; 82947; 83690; 84484; 85025; 87086; 87502; 87635; 93005; 96360; 96361; 99285; Q9967

== ENCOUNTER → 2024-12-20 19:36 | Outpatient (BNV) | payer OTHER, SELFPAY | PROVIDERS: Emergency Provider Emergency Medicine Emergency Medical Services; PCP Family Medicine; Visit Provider Internal Medicine Cardiovascular Disease | DX: I49.9 Cardiac arrhythmia, unspecified (principal); I25.2 Old myocardial infarction; R00.1 Bradycardia, unspecified | CPT/HCPCS: 93010 ==

== ENCOUNTER → 2024-12-20 22:13 | Outpatient (BNV) | payer OTHER, SELFPAY | PROVIDERS: Emergency Provider Emergency Medicine Emergency Medical Services; PCP Family Medicine; Visit Provider Radiology Diagnostic Radiology | DX: R10.9 Unspecified abdominal pain (principal) | CPT/HCPCS: 74177 ==

== ENCOUNTER 2025-01-29 23:50 | Emergency (ER) | payer OTHER, SELFPAY ==
[2025-01-29 23:56] VITALS: BP 170/100; BP 173/59; PULSE 68; PULSE 90; RESP 16; O2SAT 97; BMI 31.6
--- NOTE | 2025-01-30 00:15 | ED.GENADULT ---
HPI - General Adult General Chief complaint: General Medical Stated complaint: HTN Time Seen by Provider: 01/30/25 00:00 Source: patient and EMS Mode of arrival: EMS Limitations: no limitations History of Present Illness ED Provider: Dr. Alessia Lr HPI narrative: Patient comes to the emergency room complaining of high blood pressure. Patient states that she has been in the 160s to 170s. Patient denies chest pain, headache, blurred vision, or shortness of breath. Patient states also that she has left-sided knee pain, no trauma, no swelling. According to the patient, she is supposed to be taking losartan. However, she missed her last cardiology visit and since then she has not been taking the losartan as prescribed. Patient ran out of the medications. Patient states that she takes labetalol Related Data Home Medications ?Medication ?Instructions ?Recorded ?Confirmed lancets ([facility] UltraSoft #100 ea 01/06/20 05/30/24 Lancets) pen needle, diabetic 32 gauge x #50 ea 08/17/20 05/30/24 simethicone 125 mg capsule (Gas 0 mg PO 11/26/20 10/07/24 Relief Extra Strength) spironolactone 25 mg tablet 25 mg PO DAILY 11/26/20 10/07/24 latanoprost 0.005 % eye drops 1 drp ophthalmic (eye) BEDTIME 07/26/22 05/30/24 pioglitazone 45 mg tablet 45 mg PO DAILY 11/21/22 10/07/24 insulin glargine 100 unit/mL (3 20 unit subcut DAILY 10/10/23 10/07/24 mL) subcutaneous pen (Lantus Solostar U-100 Insulin) Previous Rx's ?Medication ?Instructions ?Recorded blood sugar diagnostic (frintitTouch #100 ea 01/07/20 Verio test strips) blood-glucose meter (frintitTouch #1 ea 01/07/20 Verio Meter) inhalational spacing device #1 ea 01/25/21 (Aerochamber MV spacer) budesonide 32 mcg/actuation nasal 2 spray intranasal DAILY 30 days 11/21/22 spray #8.43 mL ipratropium 0.5 mg-albuterol 3 mg 3 ml inhalation Q6H PRN for 03/30/23 (2.5 mg base)/3 mL nebulization wheezing #180 mL soln budesonide 0.5 mg/2 mL suspension 0.5 mg (2 mL) inhalation BID 30 05/21/23 for nebulization days #120 mL acetaminophen 500 mg tablet 500 mg PO Q6H PRN fever or pain 08/10/23 #14 tabs clopidogrel 75 mg tablet 75 mg PO DAILY #90 tabs 05/30/24 sucralfate 1 gram tablet 1 g PO BID PRN Upper abdominal 07/21/24 pain #60 tabs fluticasone propionate 115 2 puff PO Q12H #12 ea 08/07/24 mcg-salmeterol 21 mcg/actuation HFA inhaler (Advair HFA) gabapentin 300 mg capsule 300 mg PO BID PRN pain #30 caps 08/11/24 ondansetron 4 mg disintegrating 4 mg PO Q6H PRN nausea and 08/11/24 tablet vomiting #10 tabs albuterol sulfate 90 mcg/actuation 2 puff PO Q4H PRN for wheezing 30 08/15/24 aerosol inhaler days #1 ea losartan 50 mg tablet 50 mg PO DAILY #30 tabs 10/07/24 acetaminophen 500 mg capsule 1,000 mg (2 x 500 mg) PO Q8H PRN 10/18/24 fever or pain #14 caps carvedilol 3.125 mg tablet 3.125 mg PO BID #180 tabs 11/11/24 alirocumab 75 mg/mL subcutaneous 75 mg subcut Q2W #2 mL 12/09/24 pen injector (Praluent Pen) lubiprostone 8 mcg capsule 8 mcg PO BID 90 days #180 caps 01/09/25 carvedilol 6.25 mg tablet 6.25 mg PO BID #60 tabs 01/30/25 Allergies Allergy/AdvReac Type Severity Reaction Status Date / Time fluticasone (Flovent HFA) Allergy Unknown lip Verified 01/30/25 00:01 swelling lisinopril Allergy Itching Verified 01/30/25 00:01 evolocumab (From Repatha AdvReac Intermediate Hypertensio Verified 01/30/25 00:01 SureClick) n umeclidinium (From Incruse AdvReac Intermediate Chest Pain Verified 01/30/25 00:01 Ellipta) empagliflozin (Jardiance) AdvReac Unknown vaginal Verified 01/30/25 00:01 itch metformin AdvReac Unknown stomach Verified 01/30/25 00:01 pain sitagliptin (Januvia) AdvReac Unknown stomach Verified 01/30/25 00:01 pain acetaminophen (From Percocet) AdvReac Nausea and Verified 01/30/25 00:01 Vomiting hydrocodone (From Vicodin) AdvReac Nausea and Verified 01/30/25 00:01 Vomiting ibuprofen (From Motrin) AdvReac Stomach Verified 01/30/25 00:01 Upset oxycodone (From Percocet) AdvReac Nausea and Verified 01/30/25 00:01 Vomiting Review of Systems Review of Systems: Constitutional : No Weight loss, No Fever, No Chills, No Night Sweats, No Fatigue, No Malaise ENT/Mouth : No Hearing loss, No Ear Pain, No Nasal Congestion, No Sinus Pain, No Hoarseness, No sore throat, No Rhinorrhea, No Swallowing Difficulty Eyes: No Eye Pain, No Swelling, No Redness, No Foreign Body, No Discharge, No Vision Changes Cardiovascular : Complaining of asymptomatic high blood pressure, No Chest Pain, No SOB, No Dyspnea on Exertion, No Orthopnea, No Edema, No Palpitations Respiratory : No Cough, No Sputum, No Wheezing, No Smoke Exposure, No Dyspnea Gastrointestinal : No Nausea, No Vomiting, No Diarrhea, No Constipation, No abdominal Pain, No Hematochezia, No Melena Genitourinary : no irregular bleeding, No Dysuria, No Urinary Frequency, No Hematuria, No Urinary Incontinence, No Urgency, No Flank Pain, No Urinary Flow Changes, No Hesitancy Musculoskeletal : Complaining of left knee pain, No Myalgias, No Joint Swelling Skin : No Skin Lesions, No rash Neuro : No Weakness, No Numbness, No Paresthesias, No Loss of Consciousness, No Dizziness, No Headache Psych : No Anxiety/Panic, No Depression, No SI/HI/AH/VH, No Social Issues, Heme/Lymph: No Bruising, No Bleeding,No Lymphadenopathy Endocrine : No Polyuria, No Polydipsia, No Temperature Intolerance PMFSH Past Medical History Medical History Dysphagia Tracheobronchomalacia ROXIE (obstructive sleep apnea) Essential hypertension Atherosclerotic cardiovascular disease Urinary incontinence Obese Dyslipidemia Anxiety and depression Gastric pain Sinusitis Chronic allergic rhinitis Asthma Cough Cough Diabetes mellitus Fibromyalgia Pulmonary nodules Surgical History H/O heart artery stent Hx of esophagogastroduodenoscopy History of bronchoscopy Hx of colonoscopy H/O left knee surgery H/O breast biopsy H/O: hysterectomy Family History Family History Father Hypertension Mother Hypertension Diabetes Daughter Diabetes Brother No problems noted. Social History Social History Household Members: Children Alcohol intake: never Patient Tobacco Use Status: Never used Tobacco Smoked in Last 30 Days: No Second Hand Smoke Exposure: Yes Use of substances other than those prescribed or required for medical reasons: No Advance Directives: No Advance Directives Information Provided: No Physical Exam ED Exam Exam: Appearance: Alert. Oriented X3. No acute distress. Eyes: Pupils equal, round and reactive to light. ENT: Pharynx normal. Neck: Normal inspection. Neck supple. No lymph nodes noted. No crepitus CVS: Normal heart rate and rhythm. Pulses normal. Normal S1 and S2 Respiratory: No respiratory distress. Breath sounds normal. No Wheezing. No rales Abdomen: Soft and nontender. No rigidity. No distention. Skin: Skin warm and dry. Normal skin color. Normal skin turgor. Extremities: No lower extremity edema. No Lacerations. No Rash there is no significant swelling over the knees. Patient is able to flex and extend the knees, there is no lower extremities swelling or pain to palpation in the calves or thighs. Only nonspecific pulmonary in her left knee. Neuro: Oriented X 3. No motor deficit. No sensory deficit. Moving all extremities. No slurred speech. CN 2 through 12 grossly intact Psych: calm, cooperative, normal affect Vital Signs: Vital Signs - 24 hr 01/29/25 23:56 01/30/25 01:48 Pulse Rate 68 55 Respiratory Rate 16 16 Blood Pressure 173/59 H 158/65 H Pulse Oximetry 97 97 Oxygen Delivery Method Room Air Room Air BMI result Body Mass Index 31.6 Medical Decision Making Medical Decision Making MDM Narrative: My interpretation of EKG: Sinus bradycardia, heart rate 56, no ST segment depression or elevation, no T-wave inversion, QTC 409 On physical exam and on the monitor, patient's heart rate in the 70s Patient's blood pressure has been between 155 systolic up to 173 systolic. Patient is asymptomatic. My interpretation of labs: No significant abnormality patient's hematology and chemistry, troponin negative. Denies chest pain. Per Dr. Spencer's notes, patient is supposed to be taking losartan. However, patient states that the losartan made her feel uncomfortable. And also she was transportation issues, and states that she has a hard time getting to her appointments to check her renal function. Discussed with the patient that we can increase her carvedilol twice a day, patient agrees with plan. Patient is still needs to follow-up with the PCP and Cardiology Patient was able to ambulate with the assistance to the bathroom. At this time, I do not think that any imaging/x-rays would be of any benefit. Patient states that she has history of knee arthroscopy. I discussed with the patient that if she is having recurrent knee pain, she needs to follow-up with her PCP and/or Orthopedics, patient may need an MRI. Differential Diagnosis Differential Diagnoses: The differential diagnosis associated with the presentation includes (Hypertension, anxiety) Admission/Observation Consideration of admission/observation: Escalation of care including admission/observation considered Lab Data MDM Lab Attestation statement: I reviewed the patient's lab results. 01/30/25 00:18 01/30/25 00:18 Labs: Lab Results 01/30/25 Range/Units 00:18 WBC 7.1 (4.8-10.8) X10*3/uL RBC 4.19 L (4.20-5.50) X10*6/uL Hgb 13.2 (12.0-16.0) g/dl Hct 37.6 (37.0-47.0) % MCV 89.7 (80.0-98.0) fL MCH 31.5 (27.0-33.0) pg MCHC 35.1 H (31.0-35.0) g/dl RDW 12.1 (11.0-16.0) % Plt Count 190 (160-400) X10*3/uL MPV 11.1 (9.4-12.3) fL Immature Gran % (Auto) 0.3 (0.0-0.4) % Neut % (Auto) 49.5 (45-73) % Lymph % (Auto) 39.0 (20-40) % Swisher % (Auto) 7.6 (2-11) % Eos % (Auto) 2.8 (0-4) % Baso % (Auto) 0.8 (0-2) % Lymph # (Auto) 2.8 (1.2-4.9) X10*3/uL Swisher # (Auto) 0.5 (0.1-1.2) X10*3/uL Eos # (Auto) 0.2 (0.0-0.4) X10*3/uL Baso # (Auto) 0.1 (0.0-0.2) X10*3/uL Abs Immat Gran (auto) 0.02 (0.00-0.03) X10*3/uL Absolute Neuts (auto) 3.5 (2.0-8.3) x10*3/uL Absolute Nucleated RBC 0.000 (0.0-0.012) X10*3/uL Nucleated RBC % (auto) 0.0 (0.0-0.2) /100WBC Sodium 141 (135-145) mmol/L Potassium 4.0 (3.3-5.1) mmol/L Chloride 108 (96-108) mmol/L Carbon Dioxide 26 (22-29) mmol/L Anion Gap 11 L (12-20) BUN 25 H (9-16) mg/dL Creatinine 0.71 (0.5-1.4) mg/dL Estim Creat Clear Calc 48.0 Estimated GFR > 60 Random Glucose 131 H (60-115) mg/dL Calcium 9.0 (8.4-10.2) mg/dL Total Bilirubin 0.2 (0.0-1.0) mg/dL Direct Bilirubin < 0.2 (0.0-0.5) mg/dL AST 23 (5-31) U/L ALT 18 (0-31) U/L Alkaline Phosphatase 54 (39-117) U/L Troponin I High Sens 9.1 (<3.5-17.0) ng/L Total Protein 6.5 (6.5-8.0) g/dL Albumin 3.9 (3.5-5.0) g/dL Independent Interpretation I performed an independent interpretation of an: EKG Discharge Plan Discharge Clinical Impression: Chronic hypertension, Acute knee pain Patient Disposition: Home, Self-Care Instructions: Chronic Hypertension (DC) Additional Instructions: Please take 2 tablets in the morning and 2 tablets at night of your carvedilol (3.125 mg each) Please follow-up with your PCP Please follow-up with your primary care physician tomorrow. If you have any worsening or new symptoms, please return to the emergency room or call 911 Prescriptions: New carvedilol 6.25 mg tablet 6.25 mg PO BID Qty: 60 0RF Rx Instructions: must administer with a meal/food No Action (DME) lancets [OneTouch UltraSoft Lancets] Misc See Rx Instructions .ROUTE .MEDSUPPLY Qty: 100 Rx Instructions: As directed (DME) blood-glucose meter [OneTouch Verio Meter] Misc See Rx Instructions .ROUTE .MEDSUPPLY Qty: 1 0RF Rx Instructions: As directed (DME) OneTouch Verio test strips Strip See Rx Instructions .ROUTE .MEDSUPPLY Qty: 100 0RF Rx Instructions: As directed (DME) Aerochamber MV Spacer See Rx Instructions .ROUTE .MEDSUPPLY Qty: 1 0RF Rx Instructions: As directed ipratropium-albuterol 0.5 mg-3 mg(2.5 mg base)/3 mL solution for nebulization 3 ml inhalation Q6H PRN (Reason: for wheezing) Qty: 180 2RF albuterol sulfate 90 mcg/actuation HFA aerosol inhaler 2 puff PO Q4H PRN (Reason: for wheezing) 30 Days Qty: 1 6RF carvedilol 3.125 mg tablet 3.125 mg PO BID Qty: 180 3RF Praluent Pen 75 mg/mL pen injector 75 mg subcut Q2W Qty: 2 5RF lubiprostone 8 mcg capsule 8 mcg PO BID 90 Days Qty: 180 1RF sucralfate 1 gram tablet 1 g PO BID PRN (Reason: Upper abdominal pain) Qty: 60 0RF acetaminophen 500 mg capsule 1,000 mg PO Q8H PRN (Reason: fever or pain) Qty: 14 0RF acetaminophen 500 mg tablet 500 mg PO Q6H PRN (Reason: fever or pain) Qty: 14 0RF gabapentin 300 mg capsule 300 mg PO BID PRN (Reason: pain) Qty: 30 0RF ondansetron 4 mg tablet,disintegrating 4 mg PO Q6H PRN (Reason: nausea and vomiting) Qty: 10 0RF simethicone [Gas Relief Extra Strength] 125 mg capsule 0 mg PO spironolactone 25 mg tablet 25 mg PO DAILY (DME) pen needle, diabetic 32 gauge x 5/32 needle See Rx Instructions .ROUTE .MEDSUPPLY Qty: 50 Rx Instructions: As directed pioglitazone 45 mg tablet 45 mg PO DAILY budesonide 32 mcg/actuation spray,non-aerosol 2 spray intranasal DAILY 30 Days Qty: 8.43 7RF Rx Instructions: administer into each nostril budesonide 0.5 mg/2 mL suspension for nebulization 0.5 mg inhalation BID 30 Days Qty: 120 11RF Lantus Solostar U-100 Insulin 100 unit/mL (3 mL) insulin pen 20 unit subcut DAILY fluticasone propion-salmeterol [Advair HFA] 115-21 mcg/actuation HFA aerosol inhaler 2 puff PO Q12H Qty: 12 11RF clopidogrel 75 mg tablet 75 mg PO DAILY Qty: 90 3RF Rx Instructions: Blood thinner for heart latanoprost 0.005 % drops 1 drp ophthalmic (eye) BEDTIME losartan 50 mg tablet 50 mg PO DAILY Qty: 30 5RF Print Language: Portuguese
--- NOTE | 2025-01-30 00:15 | ECG_ITS ---
Test Reason : hypertension Blood Pressure : */* mmHG Vent. 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
[2025-01-30 00:27] LABS: MANUAL DIFF FLAG NO
--- OUTSIDE RECORDS SUMMARY | 2025-01-30 00:27 | XMS_ITS | Encounter Summary ---
Author Organization [employer] Address [address] [place] [address] Care Team Providers Care Building Services Engineer Name Role Phone Liset Mitchell MD Primary Care Provider [phone] Encounter Details Date Type Department Care Team ([facility] Contact Info) Description 01/30/2024 Orders Only [facility] [address] [place], [place] [phone] Provider, MD Anne Marie Social History Tobacco [...] Care Team (Late st Contact Info) Description 01/30/2025 3:30 PM EST Office Visit [facility] MED & PEDS [address] [place] [address] Liset Mitchell MD [address] [place] [address] 03/09/2025 3:15 PM EST Office Visit [facility] MED & PEDS [address] [place] [address] Liset Mitchell MD [address] [place] [address] documented as of this encounter Procedures Procedure [...] documented as of this encounter Care Teams Building Services Engineer Relationship Specialty Start Date End Date Liset Mitchell MD [address] [place] [address] PCP - General Family Medicine 09/14/20 documented as of this encounter
--- OUTSIDE RECORDS SUMMARY | 2025-01-30 00:27 | XMS_ITS | Encounter Summary ---
Author Organization [employer] Address [address] [place] [address] Care Team Providers Care Road Machine Operator Name Role Phone Liset Mitchell MD Primary Care Provider [phone] Encounter Details Date Type Department Care Team (Late st Contact Info) Description 06/27/2024 Orders Only [facility] PEDS [address] [place], [place] [phone] Provider, MD Anne Marie Social History Tobacco [...] Description 01/30/2025 3:30 PM EST Office Visit [facility] MED & PEDS [address] [place] [address] Liset Mitchell MD [address] [place] [address] 03/09/2025 3:15 PM EST Office Visit [facility] MED & PEDS [address] [place] [address] Liset Mitchell MD [address] [place] [address] documented as of this encounter Procedures Procedure [...] documented as of this encounter Care Teams Road Machine Operator Relationship Specialty Start Date End Date Liset Mitchell MD [address] [place] [id number] PCP - General Family Medicine 09/14/20 documented as of this encounter
--- OUTSIDE RECORDS SUMMARY | 2025-01-30 00:27 | XMS_ITS | Encounter Summary ---
Author Organization [employer] Address [address] [place] [address] Care Team Providers Care Armhole Sewer Name Role Phone Liset Mitchell MD Primary Care Provider [phone] Reason for Visit * Reason Onset Date Comments Prior Authorization 05/24/2022 Encounter Details Date Type Department Care Team ([facility] st Contact Info) Description 05/24/2022 Telephone [facility] [address] [place] [address] Liset Mitchell MD [address] [place] [address] Prior Authorization Social History Tobacco Use Types [...] Ivey 05/24/2022 10:47 AM EDT Tc from [facility] with [facility] requesting a PA for medication linaCLOtide (Linzess) 290 MCG capsule . documented in this encounter Plan of Treatment Upcoming Encounters Date Type Department Care Team (Late st Contact Info) Description 01/30/2025 3:30 PM EST Office Visit [facility] MED & PEDS [address] [place] [address] Liset Mitchell MD [address] [place] [address] 03/09/2025 3:15 PM EST Office Visit [facility] MED & PEDS [address] [place] [address] Liset Mitchell MD [address] [place] [address] documented as of this encounter Visit Diagnoses Not on filedocumented in this encounter Additional Health Concerns Assessment Noted Time PHQ-9 Depression Total Score: 0 04/13/19 23 10:04 AM EST documented as of this encounter Care Teams Armhole Sewer Relationship Specialty Start Date End Date Liset Mitchell MD [address] [place] [address] PCP - General Family Medicine 09/14/20 documented as of this encounter
--- OUTSIDE RECORDS SUMMARY | 2025-01-30 00:27 | XMS_ITS | Encounter Summary ---
Author Organization [employer] Address [address] [place] [address] Care Team Providers Care Manager Clinical Services Name Role Phone Liset Mitchell MD Primary Care Provider [phone] Encounter Details Date Type Department Care Team ([facility] st Contact Info) Description 07/02/2024 Telephone [facility] [address] [place] [address] Liset Mitchell MD [address] [place], [place] [phone] Social History Tobacco Use Types Packs/Day Years [...] Description 01/30/2025 3:30 PM EST Office Visit [facility] MED & PEDS [address] [place] [address] Liset Mitchell MD [address] [place] [address] 03/09/2025 3:15 PM EST Office Visit [facility] MED & PEDS [address] [place] [address] Liset Mitchell MD [address] [place] [address] documented as of this encounter Visit Diagnoses Not on filedocumented in this encounter Additional Health Concerns Assessment Noted Time PHQ-9 Depression Total Score: 4 02/28/19 25 9:06 AM EST documented as of this encounter Care Teams Manager Clinical Services Relationship Specialty Start Date End Date Liset Mitchell MD [address] [place] [id number] PCP - General Family Medicine 09/14/20 documented as of this encounter
--- OUTSIDE RECORDS SUMMARY | 2025-01-30 00:27 | XMS_ITS | Encounter Summary ---
Author Organization [employer] Address [address] [place] [address] Care Team Providers Care Systems Test Technician Name Role Phone Liset Mitchell MD Primary Care Provider [phone] Reason for Visit * Reason Onset Date Comments Nurse Triage 05/21/2024 Encounter Details Date Type Department Care Team ([facility] st Contact Info) Description 05/21/2024 Telephone [facility] [address] [place] [address] Liset Mitchell MD [address] [place] [address] Nurse Triage Social History Tobacco Use Types [...] Linares LPN - 05/23/2024 12:[address] [facility] Nurse Jaye advised that company providing [employer] services is responsible for [employer] replacement andhours. Unsure who provides those services at this time.. [facility] Nurse to follow as indicated. * Telephone [...] requesting a call back in regards to [employer] hours and medical assistance. She reports her [employer] is sick, and needs someone in the interim to help with her daily needs She would also like more [employer] hours. Please reach out to patient at your earliest convenience. I have two numbers for patients: [phone] * Telephone Encounter - Esperanza Linares LPN - 05/21/2024 2:44 PM EDT Please obtain [facility] ED note from 05/20/24 * Telephone Encounter - Esperanza Linares LPN - 05/21/2024 2:17 PM EDT Triage call to listed number no answer at time of call. Message left to return call to [phone]. Second call placed with Mary Lou Hurst [phone]. Patient confirms she was seen in ED [...] Triage Question: * Patient wants doctor (or IN CLASSROOM TUTOR/PA) to measure BP * All higher-acuity triage [...] ED visit on : Date: 05/20/24 Hospital: [facility] Seen for: high blood pressure Symptomatic: no but is currently experiencing urination symptoms *if yes message should go to Triage Patient advised will forward to team nurse for follow up documented in this encounter Plan of Treatment Upcoming Encounters Date Type Department Care Team (Late st Contact Info) Description 01/30/2025 3:30 PM EST Office Visit [facility] MED & PEDS [address] [place] [address] Liset Mitchell MD [address] [place] [address] 03/09/2025 3:15 PM EST Office Visit [facility] MED & PEDS [address] [place] [address] Liset Mitchell MD [address] [place] [address] documented as of this encounter Visit Diagnoses Not on filedocumented in this encounter Additional Health Concerns Assessment Noted Time PHQ-9 Depression Total Score: 4 02/28/19 25 9:06 AM EST documented as of this encounter Care Teams Systems Test Technician Relationship Specialty Start Date End Date Liset Mitchell MD [address] [place] [id number] PCP - General Family Medicine 09/14/20 documented as of this encounter
--- OUTSIDE RECORDS SUMMARY | 2025-01-30 00:27 | XMS_ITS | Encounter Summary ---
Author Organization [employer] Address [address] [place] [address] Care Team Providers Care Balling Head Tender Name Role Phone Liset Mitchell MD Primary Care Provider [phone] Reason for Visit * Reason Onset Date Comments Medication Question 07/04/2024 Encounter Details Date Type Department Care Team ([facility] st Contact Info) Description 07/04/2024 Telephone [facility] MEDICINE [address] [place] [address] Liset Mitchell MD [address] [place], [place] [phone] Medication Question Social History Tobacco Use Types [...] 3 07/07/2024 2:02 PM EDT Chirag Echevarria LMHC Not being able to stop or control worrying 3 07/07/2024 2:02 PM EDT Chirag Echevarria LMHC Worrying too much about different things 2 07/07/2024 2:02 PM EDT Chirag Echevarria LMHC Trouble relaxing 1 07/07/2024 2:02 PM EDT Chirag Sellers LMHC Being so restless that it is hard to sit still 0 07/07/2024 2:02 PM EDT Chirag Echevarria LMHC Becoming easily annoyed or irritable 0 07/07/2024 2:02 PM EDT Chirag Echevarria LMHC Feeling afraid as if something awful might happen 2 07/07/2024 2:02 PM EDT Chirag Gusman LMHC MINNA-7 Total Score 11 07/07/2024 2:02 PM EDT Chirag Echevarria LMHC documented as of this encounter Miscellaneous Notes * Telephone Encounter - Mali Tyler - 07/04/2024 12:05 PM EDT [facility] requesting script from all active medication. [facility] [place] - [address] [place] [address] documented in this encounter Plan of Treatment Upcoming Encounters Date Type Department Care Team (Late st Contact Info) Description 01/30/2025 3:30 PM EST Office Visit [facility] MED & PEDS [address] [place] [address] Liset Mitchell MD [address] [place] [address] 03/09/2025 3:15 PM EST Office Visit [facility] [address] [place] [address] Liset Mitchell MD [address] [place] [address] documented as of this encounter Visit Diagnoses Not on filedocumented in this encounter Additional Health Concerns Assessment Noted Time PHQ-9 Depression Total Score: 4 02/28/19 25 9:06 AM EST documented as of this encounter Care Teams Balling Head Tender Relationship Specialty Start Date End Date Liset Mitchell MD [address] [place] [phone] PCP - General Family Medicine 09/14/20 documented as of this encounter
--- OUTSIDE RECORDS SUMMARY | 2025-01-30 00:27 | XMS_ITS | Clinical Summary ---
Author Organization [employer] Address [address] [facility] [facility] [address] [place] [address] Care Team Providers Care Applier Name Role Phone Liset Mitchell MD Primary Care Provider [phone] Allergies Active Allergy Reactions Criticality Noted Date [...] DROP INTO BOTH EYES FOUR TIMES DAILY 2 Active latanoprost (Xalatan) 0.005 % ophthalmic solution Administer 1 drop into both eyes at bedtime. 3 Active ipratropium-albu terol (Duo-Neb) 0.5-2.5 mg/3 mL nebulizer solution INHALE 1 VIAL VIA NEB EVERY 6 HOURS NEEDED FOR WHEEZING 2 Active FreeStyle lancets USE 4 TIMES A DAY BEFORE MEALS AND NIGHTLY 2 Active albuterol (Ventolin HFA) 108 (90 Base) MCG/ACT inhaler 8 Active aspirin 81 MG chewable tablet Chew 1 tablet at bed time. Active cyanocobalamin (Vitamin B-12) 1000 MCG tablet Take 1,000 mcg by mouth in the morning. Active lidocaine (Lidoderm) 5 % patchIndications :Lumbar back pain Apply 1 patch topically in the morning. Remove & discard patch within 12 hours or as directed by MD. 90 patch 1 3 Active magnesium 30 MG tablet Take 30 mg by mouth 2 times daily. Active nitroglycerin (Nitrostat) 0.[address] 1 TABLET UNDER TONGUE EVERY 5 MIN NEEDED FOR CHEST PAIN, MAX OF 3 DOSES/15 MIN CALL 911/SEEK MEDICAL ATTENTION IF PAIN PERSISTS 3 Active montelukast (Singulair) 10 MG tablet Take 10 mg by mouth at bedtime. 3 Active Advair HFA 115-21 MCG/ACT inhaler INHALE 2 PUFFS BY MOUTH EVERY 12 HOURS 3 Active lidocaine (Xylocaine) 2 % solution 3 Active ketotifen (Zaditor) 0.025 % ophthalmic solution ADMINISTER 1 DROP INTO BOTH EYES 2 TIMES DAILY. 10 mL 3 Active Continuous Blood Gluc Parts Cataloguer (FreeStyle Aristides reader) deviceIndication s:Type 2 diabetes mellitus with other circulatory complication, without long-term current use of insulin (HCC) Inject under the skin before breakfast, before lunch, before evening meal, and at bedtime. 1 each 3 Active Myrbetriq 25 MG 24 hr tabletIndication s:Unspecified urinary incontinence TAKE 1 TABLET BY MOUTH EVERY DAY IN THE MORNING 30 tablet 2 3 Active azelastine (Optivar) 0.05 % ophthalmic solution 4 Active budesonide (Pulmicort) 0.5 MG/2ML nebulizer solution REALIZAR 1 TERAPIA RESPIRATORIA DOS VECEAS AL FREDDIE Active loratadine (Claritin) 10 MG tabletIndication s:Seasonal Allergic Rhinitis Take by mouth. Activ e baclofen (Lioresal) 10 MG tabletIndication s:Musculoskeleta l pain Take one tablet TID PRN 30 tablet 4 Active Humidifier miscIndications: Congestion of paranasal sinus To use daily 1 each 4 Active pioglitazone (Actos) 45 MG tablet Take 1 tablet by mouth Once per day. 4 Active Senexon-S 8.6-50 MG tablet TAKE 2 TABLETS BY MOUTH AT BEDTIME NEEDED CONSTIPATION, PLEASE TAKE EVERY OTHER DAY AT BEDTIME 4 Active ipratropium (Atrovent) 0.03 % nasal spray ADMINISTER 1-2 SPRAYS DAILY NEEDED 4 Active famotidine (Pepcid) 20 MG tablet 20 MG ORALLY 2 TIMES A DAY FOR 90 DAYS Active cetirizine (ZyrTEC) 10 MG tablet Take 10 mg by mouth in the morning. Active alirocumab (Praluent) 75 MG/ML injection Inject 75 mg under the skin. Active aluminum-magnesi um hydroxide-simeth icone (Maalox MAX) 400-400-40 MG/5ML suspension Take 20 mL by mouth if needed for indigestion or heartburn. 355 mL 5 Active BD Pen Needle Geetha U/F 32G X 4 MM misc Inject 1 each under the skin in the morning. 90 each 3 5 026 Active Continuous Glucose Sensor (FreeStyle Aristides 2 Sensor) miscIndications: Type 2 diabetes mellitus with other circulatory complication, without long-term current use of insulin (HCC) 1 Units before breakfast, before lunch, before evening meal, and at bedtime. 2 each 5 Active psyllium (Metamucil Smooth Texture) 58.6 % powderIndication s:Constipation, unspecified constipation type Take 5.12 g (3 g of fiber) by mouth Once per day. Mix in 8 oz of water. 283 g 11 5 026 Active Diclofenac Sodium 1 % gelIndications:M usculoskeletal pain APPLY 2 GRAMS TOPICALLY EVERY 6 HOURS 200 g 3 5 Active Insulin Glargine-yfgn 100 UNIT/ML solution pen-injector INJECT 20 UNITS UNDER THE SKIN NIGHTLY AT BEDTIME. 5 Active lubiprostone (Amitiza) 8 MCG capsule Take 1 capsule by mouth 2 times daily. Active sucralfate (Carafate) 1 GM/10ML suspensionIndica tions:Gastroesop hageal reflux disease, unspecified whether esophagitis present TAKE 10 ML BY MOUTH EVERY 8 HOURS 1000 mL 5 Active polyethylene glycol, PEG, 3350 (MiraLax) 17 GM/SCOOP powderIndication s:Constipation, unspecified constipation type TAKE 17 G BY MOUTH EVERY MORNING 527 g 5 Active omeprazole (PriLOSEC) [address] capsule TAKE 1 CAPSULE BY MOUTH BEFORE BREAKFAST. 90 capsule 1 5 Active melatonin 10 MG tabletIndication s:Insomnia, unspecified type TAKE 1 TABLET BY MOUTH AT BEDTIME NEEDED FOR INSOMNIA 90 tablet 1 5 Active linaCLOtide (Linzess) 145 MCG capsule TAKE 1 CAPSULE BY MOUTH BEFORE BREAKFAST. 30 capsule 11 5 Active fluticasone (Flonase) 50 MCG/ACT nasal sprayIndications :Rhinosinusitis SPRAY 2 SPRAYS INTO EACH NOSTRIL TWICE A DAY 16 g 5 5 Active losartan (Cozaar) 50 MG tablet Take 50 mg by mouth Once per day. Active Mapap 500 MG capsule TAKE 2 CAPSULES ORALLY EVERY 8 HOURS NEEDED FOR FEVER OR PAIN 5 Active gabapentin (Neurontin) 300 MG capsule Take 1 capsule by mouth if needed in the morning and at bedtime for pain. 5 Active clopidogrel (Plavix) 75 MG tablet Take 1 tablet (75 mg) by mouth Once per day. 90 tablet 1 5 Active simethicone (Gas Relief Extra Strength) 125 MG chewable tablet TAKE 1 TABLET BY MOUTH NEEDED AFTER MEALS AND AT BEDTIME FOR GAS 120 tablet 2 5 Active carvedilol (Coreg) 3.125 MG tabletIndication s:Primary hypertension Take 1 tablet (3.125 mg) by mouth with breakfast and with evening meal. 60 tablet 5 5 Active Active Problems Problem Noted Date [...] if negative side effects begin. F/u with [employer] for review of heart medication. Labs: Rapid [...] bisoprolol, told her to talk with her metaphysician as she has hx of CAD. Assessment [...] exacerbation of chroni c obstructive airways disease ([facility]) 07/19/2018 10/25/2022 Type 2 diabetes mellitus 03/18/2015 [...] Encounters Date Type Department Care Team Description 01/29/2025 Telephone [facility] MEDICINE [address] [place] [phone] Liset Mitchell MD Nurse Triage 01/20/[address] [address] Liset Mitchell MD Nurse Triage 12/22/2024 Telephone [facility] MED & PEDS [address] [place] [address] Liset Mitchell MD appt request 12/22/[address] [address] Liset Mitchell MD triage 12/20/2024 Orders Only GENERIC EXTERNAL DATA DEPARTMENT Provider, Generic External Data 12/19/[address] [address] Liset Mitchell MD triage 12/18/2024 Telephone [facility] MED & PEDS [address] [place] [address] Liset Mitchell MD Nurse Triage 12/08/[address] [address] Liset Mitchell MD Med Refill 12/02/2024 Refill [facility] MED & PEDS [address] [place] [address] Liset Mitchell MD 11/20/2024 Orders Only [facility] External Provider, [facility] 11/07/2024 11:30 AM EDT Office Visit [facility] MED & PEDS [address] [place] [address] Liset Mitchell MD Type 2 diabetes mellitus with microalbuminuria, with long-term current use of insulin ([facility]) (Primary Dx); Dysuria 11/07/2024 Travel 11/06/2024 Telephone [facility] MED & PEDS [address] [place] [address] Liset Mitchell MD chart prep 11/04/[address] [address] Liset Mitchell MD from Last 3 Months Immunizations Immunization [...] 11/07/2024 11:39 AM EDT Plan of Treatment Upcoming Encounters Date Type Department Care Team (Late st Contact Info) Description 01/30/2025 3:30 PM EST Office Visit [facility] MED [facility] PEDS [address] [place] [address] Liset Mitchell MD [address] [place] [address] 03/09/2025 3:15 PM EST Office Visit [facility] MED [facility] PEDS [address] [place] [address] Liset Mitchell MD [address] [place] [address] Health Maintenance Due Date Last Done Comments [...] on patient's age to complete this topic Goals Goal Patient Goal Type Associated Problems Recent Progress Patient-Stated? Author Help patients manage their type 2 diabetes Care Plan Help patients manage their type 2 diabetes No Cuco Wilks Weekly blood pressure task Care Plan Weekly blood pressure task No C[place]o [place] Help patients manage their type 2 diabetes Care Plan Help patients manage their type 2 diabetes No [place] Patient has chronic kidney disease Care Plan Patient has chronic kidney disease No Cuco Wilks Weekly blood pressure task Care Plan Weekly blood pressure task No [place] Patient has chronic kidney disease Care Plan Patient has chronic kidney disease No C[place]o [place] Weekly blood pressure task Care Plan Weekly blood pressure task No Colon Abril Gleason Weekly blood pressure task Care Plan Weekly blood pressure task No Colon Abril Gleason Patient has chronic kidney disease Care Plan Patient has chronic kidney disease No Colon Abril Gleason Patient has chronic kidney disease Care Plan Patient has chronic kidney disease No Colon Abril Gleason Procedures Procedure Name Priority Date/Time Associated Diagnosis Comments CT ABDOMEN PELVIS W CONTRAST Routine 12/21/2024 12:07 AM EDT URINALYSIS, COMPLETE, WITH REFLEX TO CULTURE Routine 12/20/2024 11:27 PM EDT CULTURE, URINE, ROUTINE Routine 12/20/2024 11:27 PM EDT GLUCOSE, WHOLE BLOOD Routine 12/20/2024 11:[address] CHEST WO CONTRAST Routine 11/21/2024 12:58 PM EDT POCT URINALYSIS DIPSTICK Routine 11/07/2024 12:12 PM EDT Dysuria POCT GLYCATED HEMOGLOBIN, TOTAL Routine 11/07/2024 11:52 AM EDT Type 2 diabetes mellitus with microalbuminuria, with long-term current use of insulin ([facility]) POCT GLUCOSE Routine 11/07/2024 11:52 AM EDT [...] Relevant to Health Maintenance Results * CT Abdomen Pelvis w/ Contrast (12/21/2024 12:07 AM EDT) Anatomical Region Laterality Modality Body, Pelvis, Abdomen Computed T omography 12/21/2024 12:0 7 AM EDT Narrative 12/21/2024 12:09 AM EDT [place] [address] CT Scan Report Signed Patient: Natali Santos MR#: [id number] 4 : 1945 Acct:[id number] Age/Sex: 79 / F ADM Date: 12/20/24 Loc: .ED Attending Dr: Ordering Physician: Chelo Ortega MD Date of Service: 12/20/24 Procedure(s): CT abdomen pelvis w IV con Accession Number(s): [id number] cc: Chelo Ortega MD; Liset Mitchell MD Report Number: [id number]: Total DLP = 486.00 mGy-cm Reason for Exam: abd pain CLINICAL HISTORY: abd pain CT abdomen and pelvis with contrast Comparison: CT/SR - CT CHEST WO IV CON - 11/20/24 13:07 EDT Findings: There is minimal bibasilar atelectasis. There is severe coronary artery calcification. The liver, gallbladder, pancreas, spleen, adrenal glands, and kidneys are unremarkable. The appendix is normal. There is sigmoid diverticulosis. The gastrointestinal tract is otherwise unremarkable. The aorta is normal in diameter. There are no enlarged lymph nodes. Patient is status post hysterectomy. The bladder is unremarkable. There is no acute fracture or suspicious lytic or sclerotic lesion. There is a hemangioma within T11 vertebral body. There is a stable mild T11 compression fracture. There are degenerative changes throughout the lumbar spine. IMPRESSION: 1. No acute abnormality in the abdomen or pelvis. 2. Chronic findings as above. This document has been electronically signed by: Sonny Holliday MD on 12/21/2024 00:07:38 Dictated By: Sonny Holliday MD Signed By: <Electronically signed by Sonny Hollidya MD in OV> 12/21/247 DD/ TD/TT: 12/21/246 Specialist Physicians: Procedure Note Donotuseinterpreter, Image - 12/21/[address] [place] [address] [address] Scan Report Signed Patient: Natali Santos GMR#: [id number] 4 : 1945cct:[id number] Age/Sex: 79 / FADM Date: 12/20/24 Loc: .ED Attending Dr: Ordering Physician: Chelo Ortega MD Date of Service: 12/20/24 Procedure(s): CT abdomen pelvis w IV con Accession Number(s): [id number] cc: Chelo Ortega MD; Liset Mitchell MD Report Number: [id number]: Total DLP = 486.00 mGy-cm Reason for Exam: abd pain CLINICAL HISTORY: abd pain CT abdomen and pelvis with contrast Comparison: CT/SR - CT CHEST WO IV CON - 11/20/24 13:07 EDT Findings: There is minimal bibasilar atelectasis. There is severe coronary artery calcification. The liver, gallbladder, pancreas, spleen, adrenal glands, and kidneys are unremarkable. The appendix is normal. There is sigmoid diverticulosis. The gastrointestinal tract is otherwise unremarkable. The aorta is normal in diameter. There are no enlarged lymph nodes. Patient is status post hysterectomy. The bladder is unremarkable. There is no acute fracture or suspicious lytic or sclerotic lesion. There is a hemangioma within T11 vertebral body. There is a stable mild T11 compression fracture. There are degenerative changes throughout the lumbar spine. IMPRESSION: 1. No acute abnormality in the abdomen or pelvis. 2. Chronic findings as above. This document has been electronically signed by: Sonny Holliday MD on 12/21/2024 00:07:38 Dictated By: Sonny Holliday MD Signed By: <Electronically signed by Sonny Holliday MD in OV> 12/21/247 DD/ TD/TT: 12/21/246 Specialist Physicians: [facility] External Provider IMG CT PROCEDURES Final Result * (ABNORMAL) Urinalysis, Complete, with Reflex to Culture (12/20/2024 11:27 PM EDT) Color Urine Yellow [facility] Appearance Urine Clear [facility] PH 5.5 5.0 - 9.0 [facility] Glucose Urine UA Negative Negative mg/dL [facility] Urine Blood Negative Negative [facility] Specific [place] - Urine >=1.030(H) 1.005 - 1.025 [facility] Urine Protein Negative Neg-Trace mg/dL [facility] Urine Ketones Negative Negative mg/dL [facility] Nitrite Urine Negative Negative [facility] Leukocyte Esterase Urine Small (1+)(A) Negative [facility] RBC Urine 0-2 0 - 2 /HPF [facility] Urine WBC 21-50(A) 0 - 5 /HPF [facility] Urine Squamous Epithelial Cell 6-10 0 - 2 /HPF [facility] Urine Bacteria Trace None Seen [facility] Hyaline Casts, Urine 0-2 0 - 2 /LPF [facility] 12/20/2024 11:2 7 PM EDT 12/20/2024 11:31 PM EDT Narrative [facility] - 12/20/2024 11:39 PM EDT [id number], Clean Catch Generic External Data Provider LAB URINE ORDERAB LES Final Result Performing Organization Address [facility] de Phone Number [facility] [address] [place] [phone] * Culture, Urine, Routine (12/20/2024 11:27 PM EDT) Only the most recent of2 resultswithin the time period is included. Urine Urine specimen obtained by clean catch procedure / Unknown 12/20/2024 11:27 PM EDT 12/20/2024 11:39 PM EDT Comment:UACC Narrative [facility] - 12/22/2024 11:58 AM EDT Urine Culture Report Result Urine Culture 10,000 to 50,000 cfu/ml Urine Culture Mixed bacterial ty characteristic of Urine Culture urogenital contamination. Specimen Source: Urine clean catch Generic External Data Provider LAB MICROBIOLOGY - GENERAL ORDERABLES Final Result Performing Organization Address [facility] Co de Phone Number [facility] [address] [place] [phone] * (ABNORMAL) Glucose, Whole Blood (12/20/2024 11:14 PM EDT) Glucose, Whole Blood 157(H) 60 - 115 mg/dL [facility] Comment:METER #: [id number] 12/20/2024 11:1 4 PM EDT 12/20/2024 11:18 PM EDT Generic External Data Provider LAB BLOOD ORDERAB LES Final Result Performing Organization Address [facility] Co de Phone Number [facility] [address] [place] [phone] * CT Chest w/o Contrast (11/21/2024 12:58 PM EDT) Anatomical Region Laterality Modality Body, Chest Computed Tomogra phy 11/21/2024 12:5 8 PM EDT Narrative 11/21/2024 12:59 PM EDT [address] [address] [address] Scan Report Signed Patient: Natali Santos MR#: [id number] 4 : 1945 Acct:[id number] Age/Sex: 78 / F ADM Date: 11/20/24 Loc: HO.CT Attending Dr: Reji Wilks MD Ordering Physician: Reji Wilks MD Date of Service: 11/20/24 Procedure(s): CT chest wo IV con Accession Number(s): [id number] cc: Reji Wilks MD; Liset Mitchell MD Report Number: [id number]: Total DLP = 123.00 mGy-cm Reason for [...] 11/21/24 1259 DD/ 1258 TD/TT: 11/21/24 1258 Specialist Physicians: Procedure Note Donotuseinterpreter, Image - 11/21/[address] [address] [address] Scan Report Signed Patient: Natali Santos GMR#: [id number] 4 : 6Acct:[id number] Age/Sex: 78 / FADM Date: 11/20/24 Loc: HO.CT Attending Dr: Reji Wilks MD Ordering Physician: Reji Wilks MD Date of Service: 11/20/24 Procedure(s): CT chest wo IV con Accession Number(s): [id number] cc: Reji Wilks MD; Liset Mitchell MD Report Number: [id number]: Total DLP = 123.00 mGy-cm Reason for [...] 11/21/24 1259 DD/ 1258 TD/TT: 11/21/24 1258 Specialist Physicians: [facility] External Provider IM CT PROCEDURES Final Result * POCT Urinalysis [...] Date Urine 11/07/2024 12:1 2 PM EDT Result [facility] Liset Mitchell MD POINT OF CARE TEST ENTER/EDIT ORDERABLES Final Result * (ABNORMAL) POCT Hgb A1c (11/07/2024 11:52 AM EDT) Hemoglobin A1C 7.4(A) 4.0 - 5.7 % QC Media Lot # [id number] Lot# Expiration Date Blood 11/07/2024 11:5 2 AM EDT Result [facility] Liset Mitchell MD POINT OF CARE TEST ENTER/EDIT ORDERABLES Final Result * POCT Glucose (11/07/2024 11:52 AM EDT) Glucose Blood, POC 147 60 - 200 mg/dL QC Media Lot # [id number] Lot# Expiration Date Blood Capillary blood specimen / Unknown 11/07/2024 11:52 AM EDT Result [facility] Liset Mitchell MD POINT OF CARE TEST ENTER/EDIT ORDERABLES Final Result * Hepatitis C Antibody with Reflex to HCV, RNA, Quantitative, Real-Time PCR (08/08/2024 12:30 PM EDT) Pathologist [facility] Hepatitis C Antibody Nonreactive Nonreactive [facility] Comment:Antibodies to HCV no t detected; does not exclude early acuteHCV infection. Blood Venous blood specimen / Unknown 08/08/2024 12:30 PM EDT 08/08/2024 2:02 PM EDT Result [facility] Liset Mitchell MD LAB BLOOD ORDERABLES Final Re sult Performing Organization Address [facility] Co de Phone Number [facility] [address] [place] [address] [phone] * (ABNORMAL) Lipid Panel, Standard (08/08/2024 10:30 AM EDT) Triglycerides 150(H) <150 mg/dL [facility] Comment:Desirable Triglyceri de: less than 150 mg/dLBorderline High Triglyceride 150-199 mg/dLHigh Triglyceride: 200-499 mg/dLVery High Triglyceride: greater than or equal to 5OO mg/dL Cholesterol 239(H) <200 mg/dL [facility] Comment:Desirable Cholestero l: less than 200 mg/dLBorderline High Cholesterol: 200-239 mg/dLHigh Cholesterol: greater than 239 mg/dL LDL Cholesterol Calculated 165(H) <100 mg/dL [facility] Comment:Desirable LDL: less than 100 mg/dLNear Optimal/Above Optimal LDL: 110- 129 mg/dLBorderline High LDL: 130-159 mg/dLHigh LDL: 160-189 mg/dLVery High LDL: greater than or equal to 190 mg/dL HDL Cholesterol 44 >40 mg/dL [facility] Comment:Desirable HDL: great er than 40 mg/dL Note: This HDL assay may give artificially low results in patients with liver disease. Blood Venous blood specimen / Unknown 08/08/2024 10:30 AM EDT 08/08/2024 2:05 PM EDT us Liset Mitchell MD LAB BLOOD ORDERABLES Final Re sult Performing Organization Address [facility] Co de Phone Number [facility] [address] [place] [address] [phone] from Last 3 Months or Most Recently Relevant to Health Maintenance Additional Health Concerns Active Problems Noted Date Diagnosed Date Help patients manage their type 2 diabetes 01/20 Weekly blood pressure task 01/20/2025 Help patients manage their type 2 diabetes 01/20 Patient has chronic kidney disease 01/20/2025 Weekly blood pressure task 01/20/2025 Patient has chronic kidney disease 01/20/2025 Weekly blood pressure task 01/29/2025 Weekly blood pressure task 01/29/2025 Patient has chronic kidney disease 01/29/2025 Patient has chronic kidney disease 01/29/[id number] [facility] [employer] (O D-SNP) [place] [id number] Care Teams Applier Relationship Specialty Start Date End Date Liset Mitchell MD [address] [place] [phone] PCP - General Family Medicine 09/14/20
--- OUTSIDE RECORDS SUMMARY | 2025-01-30 00:27 | XMS_ITS | Encounter Summary ---
Author Organization [employer] Address [address] [place] [address] Care Team Providers Care City Distribution Clerk Name Role Phone Liset Mitchell MD Primary Care Provider [phone] Reason for Visit * Reason Onset Date Comments FYI 08/07/2024 Encounter Details Date Type Department Care Team ([facility] st Contact Info) Description 08/07/2024 Telephone [facility] MEDICINE [address] [place] [address] Liset Mitchell MD 505 [place], [place] [phone] FYI Social History Tobacco Use Types Packs/Day [...] 2:30 PM EDT Tc from [facility] with [facility] wanting to leave an FYI with pcp for upcoming visit tomorrow. 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 If any questions you can contact Leda at [phone] ext [phone]. documented in this encounter Plan of Treatment Upcoming Encounters Date Type Department Care Team (Late st Contact Info) Description 01/30/2025 3:30 PM EST Office Visit [facility] MED & PEDS [address] [place] [address] Liset Mitchell MD 505 [place] [address] 03/09/2025 3:15 PM EST Office Visit [facility] [address] [place] [address] Liset Mitchell MD [address] [place] [address] documented as of this encounter Visit Diagnoses Not on filedocumented in this encounter Additional Health Concerns Assessment Noted Time PHQ-9 Depression Total Score: 4 02/28/19 25 9:06 AM EST documented as of this encounter Care Teams City Distribution Clerk Relationship Specialty Start Date End Date Liset Mitchell MD [address] [place] [id number] PCP - General Family Medicine 09/14/20 documented as of this encounter
--- OUTSIDE RECORDS SUMMARY | 2025-01-30 00:27 | XMS_ITS | Encounter Summary ---
Author Organization [employer] Address [address] [place] [address] Care Team Providers Care Bottle Booth Attendant Name Role Phone Liset Mitchell MD Primary Care Provider [phone] Reason for Visit * Reason Onset Date Comments Nurse Triage 01/29/2025 Encounter Details Date Type Department Care Team ([facility] st Contact Info) Description 01/29/[address] [facility] MEDICINE [address] [place] [address] Liset Mitchell MD 505 [place], [place] [phone] Nurse Triage Social History Tobacco Use Types [...] Telephone Encounter - Kathrine Arnett RN - 01/29/2025 11:07 AM EST Patient verbally agreed to appointment tomorrow at 3:[address] Mitchell with assistance of pre wave assembler. * Telephone Encounter - Liset Mitchell MD - 01/29/2025 10:46 AM EST I have made an appointment for the patient tomorrow at 3:30 PM during my meeting time. Please inform patient I will see her tomorrow. Thanks! * Telephone Encounter - Shanika Arana RN - 01/29/2025 9:02 AM EST TC x 2 placed to pt via [facility] spud sorter (Bettye ID#[id number]) for triage. Pt reports pain in left knee when standing or when moving certain ways. Pt denies pain at time of call but reports when they havepain it is 10/10. Pt denies injury to knee. Pt reports when they have pain in their knees, it gets to the point where they become numb. Pt reports swelling in knee. Pt states it is not directly on knee, but to the side of their kneecap. Pt denies fever, chills, redness or discoloration to knee. Pt reports they had surgery years ago and are unsure if it is related. Pt also reports they recently moved to a new apartment, and they feel they are getting dust from the air in the apartment. Pt reports they use their prescribed eye drops with no relief. Pt reports they feel they have dust or sand coming from eyes. Pt denies any pain or drainage from eye. Pt reports left arm sensation x1 month. Pt reports it feels something is there. Pt reports it feelsas though there is bad circulation. Pt reports when they have it, the sensation starts in hand and goes up arm. Pt denies chest pain, SOB, headache, blurred vision, dizziness, arm pain, back pain. Ptreports recent increased BPs. Pt reports it is 187 over 70 or 80 something. Recommended pt be seen by provider for evaluation. Advised pt no PCP availability, but availability this afternoon with another [facility] provider. Pt states my doctor told me to call the office when I am having issues to be seenfor an appointment. Advised pt unfortunately no upcoming PCP availability, but availability with [facility] provider to be seen for their concerns. Pt reports they do not want to see another provider and disconnected the phone call. Message forwarded to PCP for review. Protocols Used (3): Blood Pressure - High (Adult), Knee Pain (Adult), Eye - Foreign Body (Adult) Disposition for Call: See in Office or Video Visit Today Protocol Used: Blood Pressure - High (Adult) Protocol-Based Disposition: See in Office or Video Visit Today Video visit offer not recorded Positive Triage Question: * Systolic BP >= 180 OR Diastolic >= 110 * All higher-acuity triage questions were negative. Care Advice Discussed: * Reasons To Call Back - Headache, blurred vision, difficulty talking, or difficulty walking occurs - Chest pain or difficulty breathing occurs - You want to go into the office for a blood pressure check - You become worse Protocol Used: Knee Pain (Adult) Protocol-Based Disposition: See in Office or Video Visit within 3 Days Video visit offer not recorded Positive Triage Question: * Swollen knee joint (no fever or redness) * All higher-acuity triage questions were negative. Care Advice Discussed: * Reasons To Call Back - Severe pain lasts more than 2 hours after pain medicine - Moderate pain (interferes with normal activities, limping) lasts over 3 days - Mild pain lasts over 7 days - Signs of infection occur (spreading redness, warmth, fever) - You become worse Protocol Used: Eye - Foreign Body (Adult) Protocol-Based Disposition: Home Care Positive Triage Question: * Minor foreign body (FB, speck) in the eye (e.g., eyelash, dirt, sand) * All higher-acuity triage questions were negative. Care Advice Discussed: * Reasons To Call Back - Pain or blurred vision lasts over 1 hour after treatment - You still feel a foreign body in your eye more than 1 hour after treatment - You become worse * Telephone Encounter - Abril Gleason - 01/29/2025 8:42 AM EST Symptom: Knee Pain - Not From Injury Outcome: Schedule an urgent appointment (within 4 hours) or talk to a nurse or provider soon Reason: Swelling The caller accepted this outcome. Contact pt at [phone] Need spud sorter. Pt stated she want a kiswahili speker to call her documented in this encounter Plan of Treatment Upcoming Encounters Date Type Department Care Team ([facility] st Contact Info) Description 01/30/2025 3:30 PM EST Office Visit [facility] MED & PEDS [address] [place] [address] Liset Mitchell MD 505 [place] [address] 03/09/2025 3:15 PM EST Office Visit [facility] MED & PEDS [address] [place] [address] Liset Mitchell MD 505 [place] [address] documented as of this encounter Goals Goal Patient Goal Type Associated Problems Recent Progress Patient-Stated? Author Help patients manage their type 2 diabetes Care Plan Help patients manage their type 2 diabetes No Cuco Wilks Weekly blood pressure task Care Plan Weekly blood pressure task No Cuco Wilks Help patients manage their type 2 diabetes Care Plan Help patients manage their type 2 diabetes No Glen Wilksnerry Patient has chronic kidney disease Care Plan Patient has chronic kidney disease No Glen Wilksnerry Weekly blood pressure task Care Plan Weekly blood pressure task No [place] Wil[place]nerry Patient has chronic kidney disease Care Plan Patient has chronic kidney disease No EfeGlennerry Weekly blood pressure task Care Plan Weekly blood pressure task No Colon Gleason, Abril Weekly blood pressure task Care Plan Weekly blood pressure task No Colon Gleason, Abril Patient has chronic kidney disease Care Plan Patient has chronic kidney disease No Colon Gleason, Abril Patient has chronic kidney disease Care Plan Patient has chronic kidney disease No Colon Gleason, Abril documented as of this encounter Visit Diagnoses Not on filedocumented in this encounter Additional Health Concerns Active Problems Noted Date [...] 01/29/2025 Patient has chronic kidney disease 01/29/2025 Assessment Noted Time PHQ-9 Depression Total Score: 4 02/28/19 25 9:06 AM EST documented as of this encounter Care Teams Bottle Booth Attendant Relationship Specialty Start Date End Date Liset Mitchell MD [address] [place] [address] PCP - General Family Medicine 09/14/20 documented as of this encounter
--- OUTSIDE RECORDS SUMMARY | 2025-01-30 00:27 | XMS_ITS | Encounter Summary ---
Author Organization [employer] Address [address] [facility] 7t [place] [address] Care Team Providers Care Superintendent Quarry Name Role Phone Liset Mitchell MD Primary Care Provider [phone] Encounter Details Date Type Department Care Team ([facility] Contact Info) Description 02/05/2024 Orders Only [facility] [address] [place], [place] [phone] Provider, MD Anne Marie Social History Tobacco [...] Description 01/30/2025 3:30 PM EST Office Visit [facility]EDS [address] [place] [address] Liset Mitchell MD 505 [place] [address] 03/09/2025 3:15 PM EST Office Visit [facility] MED [facility]EDS [address] [place] [address] Liset Mitchell MD 505 [place] [address] documented as of this encounter Procedures Procedure [...] documented as of this encounter Care Teams Superintendent Quarry Relationship Specialty Start Date End Date Liset Mitchell MD [address] [place] [address] PCP - General Family Medicine 09/14/20 documented as of this encounter
[2025-01-30 00:28] LABS: Hematocrit 37.6 % (37.0-47.0); Hemoglobin 13.2 g/dl (12.0-16.0); Imm Gran Abs Auto 0.02 X10*3/uL (0.00-0.03); Imm Gran Pct Auto 0.3 % (0.0-0.4); Lymphocytes Absolute Auto 2.8 X10*3/uL (1.2-4.9); Mean Corpuscular HGB Conc 35.1 g/dl (31.0-35.0); Mean Corpuscular Hemoglobin 31.5 pg (27.0-33.0); Mean Corpuscular Volume 89.7 fL (80.0-98.0); NRBC Abs Auto 0.000 X10*3/uL (0.0-0.012); NRBC Pct Auto 0.0 /100WBC (0.0-0.2); Platelet Count 190 X10*3/uL (160-400); Red Blood Count 4.19 X10*6/uL (4.20-5.50); White Blood Count 7.1 X10*3/uL (4.8-10.8)
--- OUTSIDE RECORDS SUMMARY | 2025-01-30 00:28 | XMS_ITS | Encounter Summary ---
Author Organization [employer] Address [address] [place] [address] Care Team Providers Care Cook Enchilada Name Role Phone Liset Mitchell MD Primary Care Provider [phone] Reason for Visit * Reason Onset Date Comments Medication Question 08/13/2024 Encounter Details Date Type Department Care Team ([facility] st Contact Info) Description 08/13/2024 Telephone [facility] MEDICINE [address] [place] [address] Liset Mitchell MD [address] [place], [place] [phone] Medication Question Social History Tobacco Use Types [...] * Telephone Encounter - Jesus Wilks - 08/13/2024 12:03 PM EDT Tc from [email or web address] pharmacy stating pt is switching to [facility] on [address] and thy're requesting LORazepam (Ativan) 0.5 MG tablet to be sent. documented in this encounter Plan of Treatment Upcoming Encounters Date Type Department Care Team ([facility] st Contact Info) Description 01/30/2025 3:30 PM EST Office Visit [facility] MED & PEDS [address] [place] [address] Liset Mitchell MD [address] [place] [address] 03/09/2025 3:15 PM EST Office Visit [facility] MED & PEDS [address] [place] [address] Liset Mitchell MD 505 [place] [address] documented as of this encounter Visit Diagnoses Not on filedocumented in this encounter Additional Health Concerns Assessment Noted Time PHQ-9 Depression Total Score: 4 02/28/19 25 9:06 AM EST documented as of this encounter Care Teams Cook Enchilada Relationship Specialty Start Date End Date Liset Mitchell MD [address] [place] [address] PCP - General Family Medicine 09/14/20 documented as of this encounter
--- OUTSIDE RECORDS SUMMARY | 2025-01-30 00:28 | XMS_ITS | Encounter Summary ---
Author Organization [employer] Address [address] [place] [address] Care Team Providers Care Hardness Tester Name Role Phone Liset Mitchell MD Primary Care Provider [phone] Reason for Visit * Reason Comments Med Refill Encounter Details Date Type Department Care Team ([facility] st Contact Info) Description 07/25/2024 Refill [facility] MEDICINE [address] [place] [address] Liset Mitchell MD 505 [place], [place] [phone] Social History Tobacco Use Types Packs/Day Years [...] 01/30/2025 3:30 PM EST Office Visit [facility] MED & PEDS [address] [place] [address] Liset Mitchell MD [address] [place] [address] 03/09/2025 3:15 PM EST Office Visit [facility] MED & PEDS [address] [place] [address] Liset Mitchell MD 505 [place] [address] documented as of this encounter Visit Diagnoses Not on filedocumented in this encounter Additional Health Concerns Assessment Noted Time PHQ-9 Depression Total Score: 4 02/28/19 25 9:06 AM EST documented as of this encounter Care Teams Hardness Tester Relationship Specialty Start Date End Date Liset Mitchell MD [address] [place] [address] PCP - General Family Medicine 09/14/20 documented as of this encounter
--- OUTSIDE RECORDS SUMMARY | 2025-01-30 00:28 | XMS_ITS | Encounter Summary ---
Author Organization [employer] Address [address] [facility] 7t [place] [address] Care Team Providers Care Writer Producer Name Role Phone Liset Mitchell MD Primary Care Provider [phone] Reason for Visit * Reason Comments Med Refill Encounter Details Date Type Department Care Team ([facility] st Contact Info) Description 04/13/2022 Refill [facility] MEDICINE [address] [place] [address] Liset Mitchell MD 505 [place], [place] [phone] Social History Tobacco Use Types Packs/Day Years [...] Description 01/30/2025 3:30 PM EST Office Visit [facility] MED & PEDS [address] [place] [address] Liset Mitchell MD [address] [place] [address] 03/09/2025 3:15 PM EST Office Visit [facility] MED & PEDS [address] [place] [address] Liset Mitchell MD [address] [place] [address] documented as of this encounter Visit Diagnoses Not on filedocumented in this encounter Additional Health Concerns Assessment Noted Time PHQ-9 Depression Total Score: 0 04/13/19 23 10:04 AM EST documented as of this encounter Care Teams Writer Producer Relationship Specialty Start Date End Date Liset Mitchell MD [address] [place] [address] PCP - General Family Medicine 09/14/20 documented as of this encounter
--- OUTSIDE RECORDS SUMMARY | 2025-01-30 00:28 | XMS_ITS | Encounter Summary ---
Author Organization [employer] Address [address] [place] [address] Care Team Providers Care Senior Javascript Engineer Name Role Phone Liset Mitchell MD Primary Care Provider [phone] Reason for Visit * Reason Onset Date Comments Results 10/11/2023 Appointment Request 10/11/2023 Encounter Details Date Type Department Care Team ([facility] Contact Info) Description 10/11/[address] [facility] MEDICINE [address] [place] [address] Liset Mitchell MD [address] [place] [phone] Results; Appointment Request Social History Tobacco Use [...] a appt in regards to getting a MOTOR ASSEMBLER states is in need documented in this encounter Plan of Treatment Upcoming Encounters Date Type Department Care Team (Late st Contact Info) Description 01/30/2025 3:30 PM EST Office Visit [facility] MED & PEDS [address] [place] [address] Liset Mitchell MD 505 [place] [address] 03/09/2025 3:15 PM EST Office Visit [facility] MED & PEDS [address] [place] [address] Liset Mitchell MD 505 [place] [address] documented as of this encounter Visit Diagnoses Not on filedocumented in this encounter Additional Health Concerns Assessment Noted Time PHQ-9 Depression Total Score: 0 04/13/19 23 10:04 AM EST documented as of this encounter Care Teams Senior Javascript Engineer Relationship Specialty Start Date End Date Liset Mitchell MD [address] [place] [address] PCP - General Family Medicine 09/14/20 documented as of this encounter
--- OUTSIDE RECORDS SUMMARY | 2025-01-30 00:28 | XMS_ITS | Encounter Summary ---
Author Organization [employer] Address [address] [facility] [address] [place] [address] Care Team Providers Care Ore Washer Name Role Phone Liset Mitchell MD Primary Care Provider [phone] Reason for Visit * Reason Onset Date Comments Triage 07/07/2022 Encounter Details Date Type Department Care Team ([facility] st Contact Info) Description 07/07/2022 Telephone [facility]EDS [address] [place], [place] [phone] Liset Mitchell MD 505 [place] [address] Triage Social History Tobacco Use Types Packs/Day [...] pt has upcomign appt on 08/03/22 with dealer accounts investigator. Pt confirmed that new discharge meds are [...] No answer LVM to return call to [facility] triage line. Protocol Used: No Contact [...] The caller accepted this outcome Patient speaks mohawk. documented in this encounter Plan of Treatment Upcoming Encounters Date Type Department Care Team ([facility] st Contact Info) Description 01/30/2025 3:30 PM EST Office Visit [facility] MED & PEDS [address] [place] [address] Liset Mitchell MD [address] [place] [address] 03/09/2025 3:15 PM EST Office Visit [facility] MED & PEDS [address] [place] [address] Liset Mitchell MD [address] [place] [address] documented as of this encounter Visit Diagnoses Not on filedocumented in this encounter Additional Health Concerns Assessment Noted Time PHQ-9 Depression Total Score: 0 04/13/19 23 10:04 AM EST documented as of this encounter Care Teams Ore Washer Relationship Specialty Start Date End Date Liset Mitchell MD [address] [place] [address] PCP - General Family Medicine 09/14/20 documented as of this encounter
--- OUTSIDE RECORDS SUMMARY | 2025-01-30 00:28 | XMS_ITS | Clinical Summary ---
Author Organization [facility] Address [address] [place] [address] Phone Care Team Providers Care Thermal Spray Operator Name Role Phone Liset Mitchell MD Primary Care Provider [phone] Allergies Active Allergy Reactions Criticality Noted Date Comments Amlodipine 04/29/2024 Ezetimibe 11/04/2021 Other reaction(s): side effects Fluticasone 07/27/2022 Other reaction(s): lip swelling Hydrocodone Nausea And Vomiting 07/27/2022 Ibuprofen 07/27/2022 Other reaction(s): Stomach Upset Lisinopril 05/25/2023 Metformin 07/27/2022 Other reaction(s): stomach pain Mold Extracts 02/07/2021 Oxycodone Nausea And Vomiting 07/27/2022 Sitagliptin 07/27/2022 Other reaction(s): stomach pain Atorvastatin 04/29/2024 Siajkqy-Ouq-Afd Reductase Inhibitors 04/29/2024 Umeclidinium High 07/26/2022 Other reaction(s): Chest Pain Medications ipratropium-al buteroL (DUONEB) 0.5-3 mg (2.5 mg base)/3 mL nebulizer solution every 6 (six) hours as needed for wheezing. Active fluticasone propion-salmet Tiffany (ADVAIR HFA) 115-21 mcg/actuation inhaler Inhale into the lungs every 12 (twelve) hours. Active simethicone (GAS-X ORAL) Take by mouth. Ac tive cetirizine (ZYRTEC) 10 MG tablet 08/24/20 22 Active spironolactone (ALDACTONE) 25 MG tablet Take 25 mg by mouth daily. 08/23/19 Active sertraline (ZOLOFT) 50 MG tablet Take 1 tablet by mouth daily. 04/27/19 23 Active omeprazole (PRILOSEC) 20 MG capsule Take 1 capsule by mouth. Active sucralfate (CARAFATE) 100 mg/mL suspension Take 1 g by mouth as needed. 02/13/20 23 Active LINZESS 72 mcg capsule Take 72 mcg by mouth daily before breakfast. 03/06/19 24 Active b complex vitamins capsule Take 1 capsule by mouth daily. Active MAGNESIUM ORAL Take by mouth. Active cholecalcifero l, vitamin D3, (VITAMIN D3 ORAL) Take by mouth. Activ e aspirin 81 MG EC tablet TOME CINDY TABLETA TODOMary Lou LOS D Active FREESTYLE 28 gauge lancetsIndicat ions:Type 2 diabetes mellitus with microalbuminur ia, with long-term current use of insulin 1 each by Miscellaneous route 4 (four) times a day before meals and nightly. 400 each 3 12/25/19 24 Active FREESTYLE LITE Strp stripsIndicati ons:Type 2 diabetes mellitus with microalbuminur ia, with long-term current use of insulin 1 each by Miscellaneous route 4 (four) times a day before meals and nightly. 400 strip 3 12/25/19 Active insulin pen needles, disposable, 32 gauge x 5/32 NdleIndication s:Type 2 diabetes mellitus with microalbuminur ia, with long-term current use of insulin 1 each by Miscellaneous route every morning. 400 each 3 12/25/19 24 Active Medication-Zacarias e Text Allergy injections-not sure what kind Active fluticasone propionate (FLONASE) 50 mcg/actuation nasal spray 1 spray by Nasal route daily. Active insulin glargine 100 unit/mL (3 mL) InPn injection penIndications :Type 2 diabetes mellitus with microalbuminur ia, with long-term current use of insulin Inject 20 Units under the skin nightly at bedtime. 30 mL 1 06/06/19 25 Active pioglitazone (ACTOS) 45 MG tabletIndicati ons:Type 2 diabetes mellitus with microalbuminur ia, with long-term current use of insulin Take 1 tablet (45 mg total) by mouth daily. 90 tablet 1 01/21/20 Active pioglitazone (ACTOS) 45 MG tabletIndicati ons:Type 2 diabetes mellitus with microalbuminur ia, with long-term current use of insulin Take 1 tablet (45 mg total) by mouth daily. 90 tablet 1 06/06/19 025 Discontin ued(Reord er) Active Problems Problem Noted Date Diagnosed Date [...] this point she is following with her film recordist who is trying to get a replacement [...] A1c goals of less than 7%. The [place] ger[employer] recommends a goal of A1c of 7.5 to 8% in older patients with moderate comorbidities and life expectancy less than 10 years. The [place] diabetes Association recommends a goal of less [...] informs me that she is going to [place] for the winter months I gave her [...] Encounters Date Type Department Care Team Description 01/20/2025 Refill [facility] [address] [place] [address] Sunitha Sharp MA 11/05/2024 9:15 AM EDT Office Visit [facility] [address] [place] [address] Torsten Rizo PA-C Swannie, Ward, PTA Verea, Armando Chronic right shoulder pain (Primary Dx) 11/03/2024 8:45 AM EDT Office Visit [facility] [address] [place] [address] Torsten Rizo PA-C Hodges, Zachary K, PT [...] 01/09/2018, 04/06/2017, Additional history exists COVID-19 VACCINE ( season) 2024 HEMOGLOBIN A1C 12/03/2024 06/03/2024, 04/0 [...] Hyperlipidemia LDL goal <100 BASIC METABOLIC PANEL (BMP) Routine 06/21/2023 9:57 AM EDT Type 2 diabetes mellitus with microalbuminuria, with long-term current use of insulin from Last 3 Months or Most Recently Relevant to Health Maintenance Results * (ABNORMAL) Hemoglobin A1c (06/03/2024 11:17 AM EDT) HEMOGLOBIN A1C 7.1(H) 4.3 - 5.8 % [facility] Blood 06/03/2024 11:1 7 AM EDT 06/03/2024 11:19 AM EDT Richard Dixon DO LAB BLOOD BKR ORDERABLES Final R esult Performing Organization Address City/[facility] Co de Phone Number [address] [address] * (ABNORMAL) Microalbumin/creatinine ratio, random urine (12/24/2023 10:28 AM EDT) URINE MICROALBUMIN 3.0(H) 0 - 2.3 mg/dL [facility] URINE CREATININE 201 mg/dL [facility] MICROALB/CRE RATIO 14.9 0 - 20 mg/g Cre [facility] Urine (Urine) 12/24/2023 10: 28 AM EDT 12/24/2023 10:29 AM EDT us Richard Dxion DO LAB URINE ORDERABLES Final Resul t Performing Organization Address [facility] Co de Phone Number [address] [address] * (ABNORMAL) Lipid panel (12/24/2023 10:12 AM EDT) HDL 56 mg/dL [facility] Comment: Interpretation <40 mg/dL: Low HDL cholesterol (major risk factor for CHD) Greater than or equal to 60 mg/dL: High HDL cholesterol ( negative risk factor for CHD) HDL - cholesterol is affected by a number of factors, e.g. smoking, excerise, hormones, sex and age. CHOLESTEROL 130 0 - 240 mg/dL [facility] TRIGLYCERIDES 103 30 - 160 mg/dL [facility] LDL 53 50 - 129 mg/dL [facility] Comment: LDL levels in terms of risk for coronary heart disease: <100 mg/dL: Optimal 100-129 mg/dL: Near or above optimal 130-159 mg/dL: Borderline high 160-189 mg/dL: High >190 mg/dL: Very High CARDIAC RISK RATIO 2.3(L) 3.3 - 4.4 C [facility] Blood 12/24/2023 10:1 2 AM EDT 12/24/2023 10:19 AM EDT [facility] BKR ORDERABLES Final R esult [address] [address] * (ABNORMAL) Basic metabolic panel (06/21/2023 9:57 AM EDT) SODIUM 140 133 - 146 mmol/L [facility] CHLORIDE 104 96 - 108 mmol/L [facility] POTASSIUM 5.0 3.3 - 5.1 mmol/L [facility] CO2 26 21 - 35 mmol/L [facility] BUN 16 6 - 19 mg/dL [facility] CREATININE 0.70 0.5 - 1.5 mg/dL [facility] GLUCOSE 102(H) 70 - 99 mg/dL [facility] CALCIUM 9.9 8.4 - 10.3 mg/dL [facility] EGFR 89 >59 mL/min/1.7 3m2 [facility] Comment:Estimated glomerular filtration rate calculated using the CKD-EPI refit equation. ANION GAP 15 10 - 20 mmol/L [facility] Blood 06/21/2023 9:57 AM EDT 06/21/2023 9:59 AM EDT [facility]LOOD BKR ORDERABLES Final R esult Performing Organization Address City/[facility]/ZIP Co de Phone Number [address] [address] from Last 3 Months or Most Recently Relevant to Health Maintenance Insurance [employer]ACEMENT [id number] MEDICARE REPLACEMENT MEDICARE REPLACEMENT [address] MEDICARE REPLACEMENT MEDICARE REPLACEMENT MEDICARE REPLACEMENT MEDICARE REPLACEMENT MEDICARE REPLACEMENT [address] MEDICARE REPLACEMENT Care Teams Thermal Spray Operator Relationship Specialty Start Date End Date Liset Mitchell MD [address] [place] [id number] PCP - General Family Medicine 10/12/23 Additional Source Comments The information contained in this document represents components of the legal health record. It is not the complete legal health record.[facility]
--- OUTSIDE RECORDS SUMMARY | 2025-01-30 00:28 | XMS_ITS | Clinical Summary ---
Author Organization 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 73m2 LAB CHEMISTRY METHOD 06/25/2024 7:24 PM EDT [facility] Comment:Calculation based on the Chronic Kidney Disease Epidemiology Collaboration (CKD-EPI) equation refit without adjustment for race. BUN/Creatinine Ratio 35.9 LAB CHEMISTRY METHOD 06/25/2024 7:24 PM EDT [facility] Calcium 9.6 8.5 - 10.5 mg/dL LAB CHEMISTRY METHOD 06/25/2024 7:24 PM EDT [facility] Blood Venous blood specimen / Unknown Venipuncture / Unknown 06/25/2024 6:34 PM EDT 06/25/2024 6:45 PM EDT us Scot Anderson Chappell MD LAB BLOOD ORDERABLES Final Resu lt [facility] [address] [place] [address], from Last 3 Months or Most Recently Relevant to Health Maintenance Insurance [facility] MEDICARE Member Subscriber Plan / Payer (Ef fective 2012-Present) Name:Natali Bower Relation to Subscriber:Self Name:Natali Bower Payer ID:[id number] Group ID:[id number] Type:Not on file Address: [address] [facility] [place] [address] Care Teams Liquor Runner Relationship Specialty Start Date End Date Liset Mitchell MD [address] [place] [phone] PCP - General 6/14/22
--- OUTSIDE RECORDS SUMMARY | 2025-01-30 00:28 | XMS_ITS | Encounter Summary ---
Author Organization [employer] Address [address] [facility] [address] [place] [address] Care Team Providers Care Battery Repairer Name Role Phone Liset Mitchell MD Primary Care Provider [phone] Reason for Visit * Reason Comments Med Change Request Encounter Details Date Type Department Care Team ([facility] Contact Info) Description 10/26/2023 Refill [facility] [address], [place] [phone] Liset Mitchell MD [address] [place] [address] Social History Tobacco Use Types Packs/Day Years [...] [facility] [address] [place] [address] Liset Mitchell MD [address] [place] [address] 03/09/2025 3:15 PM EST Office Visit [facility] [address] [place] [address] Liset Mitchell MD [address] [place] [address] documented as of this encounter Visit Diagnoses Not on filedocumented in this encounter Additional Health Concerns Assessment Noted Time PHQ-9 Depression Total Score: 0 04/13/19 23 10:04 AM EST documented as of this encounter Care Teams Battery Repairer Relationship Specialty Start Date End Date Liset Mitchell MD [address] [place] [phone] PCP - General Family Medicine 09/14/20 documented as of this encounter
--- OUTSIDE RECORDS SUMMARY | 2025-01-30 00:28 | XMS_ITS | Continuity of Care Document ---
Author Name [facility], Medical Address [address] [place] [address] Organization Unknown Address [address] [place] [address] Medications No known medications Problems No known problems
--- OUTSIDE RECORDS SUMMARY | 2025-01-30 00:28 | XMS_ITS | Encounter Summary ---
Author Organization Count Includes [facility] Address [address] [place] [address] Encounters * CPT with Medical [facility] at [employer] on 2024-12-22 { reasonForRequest : PT reporting severe abdominal pain in which she went to the ED for>has a visit with her PCP this Sunday>notes she has NOT taken her bp medication yet due to her ongoing symptons\nAllergies to medication:lisinopril, amlodipine\nPMH: Diabetic, high bp , patientReports : , denies :[ Sharp focal or diffuse abdominal pain , Vomiting blood/coffee ground material , Bloating, jaundice new onset with pain , Nausea and vomiting greater than 2 hours with abdominal pain , Tearing pain that radiates to back , Food Impa ction ], chiefComplaints : Abdominal Pain, Nausea / Vomiting , pmh&quo t;: COPD/Asthma, Hypertension, Diabetes Mellitus Type 2, Hyperlipidemia, Allergic Rhinitis, Gastroesophageal Reflux Disease (GERD), Coronary Artery Disease, Asthma , allergies :"Lisinopril, Fluticasone, Hydrocodone, Ezetimibe, Metoprolol , otherAllergies :null , painAssessment : , visitOutcome : , additionalComments : 79 y.o female complains of Abdominal Pain, Nausea / Vomiting\n\nReferral taken via [employer]\nPatient with abdominal pain\nPatient seen in ED\nCT ABD negative, blood work benign\nPatient with ongoing stomach pain\nDenies any inflammatory bowel disease\n+nausea, no vomiting\nPatient feels like she has a lot \ gas\ \nPatient became agitated with the questions, and did not wish to answer any further triage questions, patient educated why we ask questions, she still declined and just wants to be evaluated\n\nI provided information on the mobile health provider response time and advised the patient and/or caregiver to monitor reported signs and symptoms. I discussed the warning signs of when to seek emergency care. } [facility] makes pt contact a 79 YO F CC of abdominal discomfort. [facility] obtains vital signs. [facility] utilizes language services for language barrier. PT explains last sunday went to the ED for abdominal pain/bad stomach ache. PT reports she has a diagnosis of gastritis. While in the ED they gave her fluids and took blood work. But she ultimately was discharged. PT had a follow up with her PCP for Sunday but explains she cant wait without medication. PT explains nausea and pain thats worse when she gets up from sitting. Her pain is in the center of abdomen. Upon palpation no masses are felt, abdomen is soft, pt reports some discomfort from pressing downwards but not much of an increase in pain. Lungs are clear. PT reports moving her bowels earlier today butit was hard and she believes she has a lot of gas and constipation. She attempted to relieve some of thevdiscomfort with different teas, and apple sauce. PT still able to eat or drink but did not take her medications yet because they would make it worse so she is waiting until she feel s a little better. [facility] contacts [facility] and explains above mentioned. [facility] and language line are merged together. [facility] in [facility] right ac and also gets blood for a bmp. BMP is performed and results are uploaded and discussed. [facility] orders 4mg zofran be given IV. PT also has simethicone and colace sent to her pharmacy. Directions of medication prescription explained to pt. PT allergies confirmed. PT is advised that f she has n/v, fever, chest pain, sob, worsening symptoms, or has blood in her stool thatshe should seek a higher level of care such as 911. PT should also reach out to her aerotriangulation specialist and her pcp. PT understands. [facility] clear. IV_(FLUIDS_AND/OR_MEDICATION), MEDICATION_IM, EKG, POC_BLOODWORK, URINE_DIPSTICK Written by [facility] on 2024-12-22
--- OUTSIDE RECORDS SUMMARY | 2025-01-30 00:28 | XMS_ITS | Data Portability ---
Author Organization MD - [facility], Allergy Address [address] [address] Care Team Providers Care Direct Marketing Coordinator Name Role Phone JACKSON PEDRO Primary Care [...] and Address Organization Details Recorded Time Asthma 509522301 Active 2016 Other asthma; Note: Date Diagnosed : 03/01/2016 1:00 PM (J45.998) Not Available [facility] 4 03:07:46 Impacted cerumen of bilateral ears 66465021231 44085 Active 2016 Impacted cerumen, bilateral ; Note: Date Diagnosed : 03/01/2016 1:00 PM (H61.23) Not Available [facility] 4 03:07:45 Nasal congestio n 76664351 Active 2016 Nasal congestio n; Note: Date Diagnosed : 08/11/2016 11:55 AM (R09.81) Not Available [facility] 4 03:07:47 Tinnitus of right ear 78243477689 08 Active 2016 Tinnitus, right ear; Note: Date Diagnosed : 08/11/2016 12:22 PM (H93.11) Not Available [facility] 4 03:07:46 Otalgia of right ear 1343056398 Active 2016 Otalgia, right ear; Note: Date Diagnosed : 08/11/2016 12:22 PM (H92.01) Not Available [facility] 4 03:07:46 Sensorine ural hearing loss of bilateral ears 563033845 Active 2016 Sensorine ural hearing loss, bilateral ; Note: Date Diagnosed : 08/11/2016 12:23 PM (H90.3) Not Available [facility] 4 03:07:47 Disturban ce of salivary secretion 94564572 Active 2018 Xerostomi a; Note: Date Diagnosed : 07/24/2018 2:04 PM (K11.7) Not Available [facility] 4 03:07:46 Allergic rhinitis 16171878 Active 2018 Other allergic rhinitis; Note: Date Diagnosed : 07/24/2018 2:03 PM (J30.89) Not Available [facility] 4 03:07:47 Chronic sialadeni tis 055821920 Active 2018 Chronic sialoaden itis; Note: Date Diagnosed : 07/24/2018 2:03 PM (K11.23) Not Available [facility] 4 03:07:46 Chronic rhinitis 26332655 Active 2018 Chronic rhinitis; Note: Date Diagnosed : 08/21/2018 5:21 PM (J31.0) Not Available [facility] 4 03:07:47 Chronic pharyngit is 988581 Active 2019 Chronic sore throat; Note: Date Diagnosed : 07/18/2019 3:39 PM (J31.2) Not Available [facility] 4 03:07:45 Dysphagia 81145362 Active 2021 Dysphagia , unspecifi ed; Note: Date Diagnosed : 08/10/2021 1:29 PM (R13.10) Not Available [facility] 4 03:07:47 Posterior rhinorrhe a 26652011 Active 2024 FARTUN HERNANDEZ PA-C [address] [place] [address],[place] [address], [place], [address] , [facility] 5 09:48:30 Ear pressure sensation 261406943 Active 2024 FARTUN HERNANDEZ PA-C [address] [place] [address],[place] [address], [place], [address] , [facility] 5 12:09:01 Problem Notes None recorded. Procedures Surgical History Date Name Laterality Status Provider Name and Address Organization Details Recorded Time 03/10/19 25 Tympanometry - 45695 completed Lorri Levy MD - [facility] 03/10/2024 12:09:43 Imaging Results None recorded. Procedure [...] ended release 2016 active Medicatio n ID: [id number] Br and Name: Toprol XL Send Method: [...] mg tablet 2016 active Medicatio n ID: [id number] Br and Name: chlorthal idone Sen d Method: E-Prescri bed Subs Allowed: subs OK Medica tionGener icName: chlorthal idone Not Available Not Available Not Available amlodipine 5 mg tablet TAKE 1 TABLET BY MOUTH EVERY DAY active Not Available Not Available No t Available aspirin 81 mg tablet,del ayed release 2016 active Medicatio n ID: [id number] Br and Name: aspirin S end Method: [...] mg tablet 2016 active Medicatio n ID: [id number] Br and Name: Diovan Se nd Method: [...] mg tablet 2016 active Medicatio n ID: [id number] Br and Name: amlodipin e Send Method: E-Prescri bed Subs Allowed: subs OK Medica tionGeli icName: amlodipin e Not Available Not Available Not Available simvastati n 20 mg tablet 2016 active Medicatio n ID: [id number] Br and Name: simvastat in Send Method: E-Prescri bed Subs Allowed: subs OK Medica tionGeli icName: simvastat in Not Available Not Available Not Available diclofenac 0.1 % eye drops 2016 active Medicatio n ID: [id number] Br and Name: diclofena c sodium Se nd Method: E-Prescri bed Subs Allowed: subs OK Medica tionGener icName: diclofena c sodium Not Available Not Available Not Available diphenhydr amine 25 mg tablet 2016 active Medicatio n ID: [id number] Br and Name: diphenhyd ramine HCl Send Method: E-Prescri bed Subs Allowed: subs OK Medica tionGener icName: diphenhyd ramine HCl Not Available Not Available Not Available Aquaphor topical ointment 2016 active Medicatio n ID: [id number] Br and Name: Aquaphor Send Method: E-Prescri bed Subs Allowed: subs [place] [facility] Aquaphor Not Available Not Available Not [...] 2 spray 2020 active Medicatio n ID: [id number] Pr escribed By Name: NIELS Dumont Name: azelastin e Send Method: E-Prescri bed Subs Allowed: subs [place] [facility] azelastin e Not Available Not Available [...] 2 puff 2016 active Medicatio n ID: [id number] Du ration Value: 90 Brand Name: Ventolin HFA Send Method: E-Prescri bed Subs Allowed: subs OK Medica tionGener icName: Ventolin HFA Not Available Not Available Not Available Premarin 0.625 mg tablet 2016 active Medicatio n ID: [id number] Br and Name: Premarin Send Method: E-Prescri bed Subs Allowed: subs OK Medica tionGener icName: Premarin Not Available Not Available Not Available rosuvastat in 40 mg tablet TAKE 1 TABLET BY MOUTH EVERY DAY IN THE MORNING active Not Available Not Available No t Available Prilosec OTC 20 mg tablet,del ayed release 2016 active Medicatio n ID: [id number] Br and Name: Prilosec OTC Send Method: E-Prescri bed Subs Allowed: subs OK Medica tionGener icName: Prilosec OTC Not Available Not Available Not Available metformin ER 1,000 mg tablet,ext ended release 24hr (osmotic) 2016 active Medicatio n ID: [id number] Br and Name: metformin Send Method: E-Prescri bed Subs Allowed: subs OK Medica tionGener icName: metformin Not Available Not Available Not Available albuterol sulfate concentrat e 2.5 mg/0.5 mL solution for nebulizati on 2016 active Medicatio n ID: [id number] Br and Name: albuterol sulfate S end [...] aerosol inhaler 2016 active Medicatio n ID: [id number] Br and Name: Flovent HFA Send Method: [...] Meter kit 2016 active Medicatio n ID: [id number] Br and Name: FreeStyle Lite Meter Sen [...] oxide) capsule 2016 active Medicatio n ID: [id number] Br and Name: magnesium oxide Sen d Method: E-Prescri bed Subs Allowed: subs OK Medica tionGener icName: magnesium oxide Not Available Not Available Not Available lidocaine 5 % topical ointment 2016 active Medicatio n ID: [id number] Br and Name: lidocaine Send Method: E-Prescri bed Subs Allowed: subs OK Medica tionGener icName: lidocaine Not Available Not Available Not Available vitamin B12 1,000 mcg-folic acid 400 mcg sublingual tablet 2016 active Medicatio n ID: [id number] Br and Name: vitamin E16-mxsny acid Send Method: E-Prescri bed Subs Allowed: subs OK Medica tionGener icName: vitamin X21-ylucw acid Not Available Not Available Not Available Tanzeum 50 mg/0.5 mL subcutaneo us pen injector 2016 active Medicatio n ID: [id number] Br and Name: Tanzeum S end Method: E-Prescri bed Subs Allowed: subs OK Medica tionGener icName: Tanzeum Not Available Not Available Not Available Jardiance 10 mg tablet 2018 active Medicatio n ID: [id number] Du ration Value: 30 Brand Name: Jardiance Send Method: E-Prescri bed Subs Allowed: subs OK Medica tionGener icName: Jardiance Not Available Not Available Not Available DeVilbiss PulmoNeb LT Compressor -Nebulizer 2016 active Medicatio n ID: [id number] Br and Name: DeVilbiss PulmoNeb LT Comp-Neb [...] perineal applicator 2016 active Medicatio n ID: [id number] Br and Name: Anusol-HC Send Method: E-Prescri bed Subs Allowed: subs OK Medica tionGener icName: Anusol-HC Not Available Not Available Not Available Qvar RediHaler 80 mcg/actuat ion HFA breath activated aerosol 2018 active Medicatio n ID: [id number] Du ration Value: 30 Brand Name: Qvar [...] Address Organization Details Last Updated DateTime 03/10/2024 84160.08 g 33 kg/m2 142.24 cm Roxane Merlos [place] - [facility] 03/10/2024 11:38:17 Social History None recorded. Functional Status None recorded. Mental Status None recorded. Family History Nothing Reported. Medical History No medical history recorded. Gynecological HistoryNo gynecological history recorded. Obstetrics History GPAL:G 0 P 0 0 0 0 Past Encounters Encounter ID Performer Location Encounter Start Date Encounter Closed Date Diagnosis/Indication Diagnosis SNOMED-CT Code Diagnosis ICD10 Code Diagnosis IMO Codes Diagnosis Note [id number] FARTUN HENRANDEZ PA-C [facility] [address] [address] 03/10/2024 11:10:06 03/10/2024 12:30:23 Ear pressure sensation 575546187 H93.8X9 Audiologic al evaluation results: Tympanomet ry: Right Ear:Type As Left Ear:Type As Allergic rhinitis 191172 04 J30.89 Health Concerns Section Related Observation LastModified by Organization Detai ls LastModified Time None Recorded Concern Status LastModified by Organization Details LastModified Time None Recorded Advance Directives Directive None Recorded Payers Insurance Date Sequence Insurance Name Policy Number Policy Valdovinos Covered Member ID Valdovinos Member ID Guarantor Name 03/10/2024 1 [facility] [employer] - DOS ON OR AFTER 2022 - MEDICARE ADVANTAGE [place] (MEDICARE REPLACEMENT/AD VANTAGE - PPO) Natali Cortes [id number] Natali Cortes 11/12/2024 1 [employer] [facility] [employer] - DOS ON OR AFTER 2022 - PENITENTIARY OPTIONS (MEDICARE REPLACEMENT/AD VANTAGE - HMO) Natali Cortes [id number] Natali Cortes Notes Date Note Type Note [...] this triggered her allergies. CRISTINA JUAREZ MD [address] [place] [address], [id number], [facility] - [facility] 03/10/2024 15:11:38 OBGyn Episode No OBEpisode recorded.
--- OUTSIDE RECORDS SUMMARY | 2025-01-30 00:28 | XMS_ITS | Encounter Summary ---
Author Organization [employer] Address [address] [facility] [address] [place] [address] Care Team Providers Care Director Retirement Name Role Phone Liset Mitchell MD Primary Care Provider [phone] Encounter Details Date Type Department Care Team ([facility] st Contact Info) Description 05/30/2024 Orders Only [facility] MEDICINE [address] [place], [place] [phone] Eli Rodriguez NP [address] [place], [place] [phone] Social History Tobacco Use Types Packs/Day Years [...] [facility] MED & PEDS [address] [place] [address] Liset Mitchell MD [address] [place] [address] 03/09/2025 3:15 PM EST Office Visit [facility]ED[facility] [address] [place] [address] Liset Mitchell MD [address] [place] [address] documented as of this encounter Visit Diagnoses Not on filedocumented in this encounter Additional Health Concerns Assessment Noted Time PHQ-9 Depression Total Score: 4 02/28/19 25 9:06 AM EST documented as of this encounter Care Teams Director Retirement Relationship Specialty Start Date End Date Liset Mitchell MD [address] [place] [address] PCP - General Family Medicine 09/14/20 documented as of this encounter
--- OUTSIDE RECORDS SUMMARY | 2025-01-30 00:28 | XMS_ITS | Encounter Summary ---
Author Organization [employer] Address [address] [facility] [address] [place] [address] Care Team Providers Care Pattern Chain Maker Supervisor Name Role Phone Liset Mitchell MD Primary Care Provider [phone] Reason for Visit * Reason Onset Date Comments ER Follow-up 01/29/2024 Encounter Details Date Type Department Care Team ([facility] Contact Info) Description 01/29/2024 Telephone [facility]EDS [address] [place], [place] [phone] Liset Mitchell MD [address] [place] [address] ER Follow-up Social History Tobacco Use Types [...] Triage call to Pt with [facility] [id number]. Pt was seen in [facility] ED 01/28/24 for High BP. (reportis on [...] requesting marianne seen today. ASK apt in [facility] at 140pm today. Pt agrees with [...] ED visit on : Date: 01/28/24 Hospital: [facility] Seen for: High blood pressure Symptomatic No *if yes message should go to Triage Patient advised will forward to team nurse for follow up documented in this encounter Plan of Treatment Upcoming Encounters Date Type Department Care Team (Late st Contact Info) Description 01/30/2025 3:30 PM EST Office Visit [facility] MED & PEDS [address] [place] [address] Liset Mitchell MD [address] [place] [address] 03/09/2025 3:15 PM EST Office Visit [facility] [address] [place] [address] Liset Mitchell MD [address] [place] [address] documented as of this encounter Visit Diagnoses Not on filedocumented in this encounter Additional Health Concerns Assessment Noted Time PHQ-9 Depression Total Score: 0 04/13/19 23 10:04 AM EST documented as of this encounter Care Teams Pattern Chain Maker Supervisor Relationship Specialty Start Date End Date Liset Mitchell MD [address] [place] [address] PCP - General Family Medicine 09/14/20 documented as of this encounter
--- OUTSIDE RECORDS SUMMARY | 2025-01-30 00:28 | XMS_ITS | Encounter Summary ---
Author Organization [employer] Address [address] [facility] [address] [place] [address] Care Team Providers Care Corporate Auditor Name Role Phone Liset Mitchell MD Primary Care Provider [phone] Reason for Visit * Reason Onset Date Comments ER Follow-up 05/15/2023 Encounter Details Date Type Department Care Team ([facility] Contact Info) Description 05/15/2023 Telephone [facility] MEDICINE [address] [place] [address] Liset Mitchell MD [address] [place] [address] ER Follow-up Social History Tobacco Use Types [...] answer. LM to call us back in [place]. Routing back to [facility] nurses. * Telephone Encounter - Sammy Hall - 05/15/2023 4:01 PM EDT Tc from pt returning phone call. * Telephone Encounter - Julieta Montalvo RN - 05/15/2023 3:29 PM EDT TC placed to patient x 2 regarding ED visit below via [employer] and without de alcoholizer line. Patient has extended f/u with PCP on 05/25/23. Noted in appointment about recent ED visit for R shoulder pain/dislocation. LM for patient in [place] that we are calling to check in and hope she is feeling better, remindingof upcoming appointment with PCP on 05/25/23 @ 11:15 and asking her to call us if she needs anythingprior to this appointment or needs a sooner appointment. Routing to PCP so she is aware. Patient calling to report ED visit on : Date: 05/13 Hospital: [facility] Seen for: Extremity Injury, Upper shoulder pain while taking x-rays Patient advised will forward to team nurse for follow up * Telephone Encounter - Daniel Franklin - 05/15/2023 11:06 AM EDT Patient calling to report ED visit on : Date: 05/13 Hospital: [facility] Seen for: Extremity Injury, Upper shoulder pain while taking x-rays Patient advised will forward to team nurse for follow up documented in this encounter Plan of Treatment Upcoming Encounters Date Type Department Care Team (Late st Contact Info) Description 01/30/2025 3:30 PM EST Office Visit [facility] MED & PEDS [address] [place] [address] Liset Mitchell MD [address] [place] [address] 03/09/2025 3:15 PM EST Office Visit [facility] MED & PEDS [address] [place] [address] Liset Mitchell MD [address] [place] [address] documented as of this encounter Visit Diagnoses Not on filedocumented in this encounter Additional Health Concerns Assessment Noted Time PHQ-9 Depression Total Score: 0 04/13/19 23 10:04 AM EST documented as of this encounter Care Teams Corporate Auditor Relationship Specialty Start Date End Date Liset Mitchell MD [address] [place] [address] PCP - General Family Medicine 09/14/20 documented as of this encounter
--- OUTSIDE RECORDS SUMMARY | 2025-01-30 00:28 | XMS_ITS | Encounter Summary ---
Author Organization [facility] Address [address] [place] [address] [place] [address] Phone Care Team Providers Care Jira Administrator Name Role Phone Liset Mitchell MD Primary Care Provider [phone] Encounter Details Date Type Department Care Team ([facility] st Contact Info) Description 10/09/2024 Telephone [facility] [address] [place] [address] Richard Dixon, DO [address] [place] [phone] [email or web address] Social History Tobacco Use Types Packs/Day Years [...] on filedocumented in this encounter Care Teams Jira Administrator Relationship Specialty Start Date End Date Liset Mitchell MD [address] [place] [address] PCP - General Family Medicine 10/12/23 documented as of this encounter Additional Source Comments The information contained in this document represents components of the legal health record. It is not the complete legal health record.[facility]
--- OUTSIDE RECORDS SUMMARY | 2025-01-30 00:28 | XMS_ITS | Encounter Summary ---
Author Organization [employer] Address [address] [facility] 7t [place] [address] Care Team Providers Care Shape Hand Name Role Phone Liset Mitchell MD Primary Care Provider [phone] Reason for Visit * Reason Comments Med Change Request Encounter Details Date Type Department Care Team ([facility] Contact Info) Description 09/08/2023 Refill [facility]EDS [address] [place], [place] [phone] Rubio Blum MD [address] [place] [address] Social History Tobacco Use Types Packs/Day Years [...] 3:30 PM EST Office Visit [facility] MED & PEDS [address] [place] [address] Liset Mitchell MD [address] [place] [address] 03/09/2025 3:15 PM EST Office Visit [facility] MED & PEDS [address] [place] [address] Liset Mitchell MD [address] [place] [address] documented as of this encounter Visit Diagnoses Not on filedocumented in this encounter Additional Health Concerns Assessment Noted Time PHQ-9 Depression Total Score: 0 04/13/19 23 10:04 AM EST documented as of this encounter Care Teams Shape Hand Relationship Specialty Start Date End Date Liset Mitchell MD [address] [place] [address] PCP - General Family Medicine 09/14/20 documented as of this encounter
--- OUTSIDE RECORDS SUMMARY | 2025-01-30 00:28 | XMS_ITS | Continuity of Care Document ---
Author Organization [facility] Address [address] [place] [id number] Care Team Providers Care Tile Classifier Name Role Phone HIM [facility] OTHER [facility] Primary Care Provider Assessment Encounter Date Assessment Date Assessment LastModified by Organization Details LastModified Time 12/22/2024 12/22/2024 I provided real -time medical direction via phone for this encounter, and was available for additional phone based assistance as needed. I have reviewed and agree with the Assessment and Plan as documented by the Calender Roll Operator. We discussed the diagnostic uncertainty of home visits and the risk associated with this. In this case the patient and I felt this to be an acceptable and reasonable amount of risk given the benefit of avoiding an ED visit. The patient given the opportunity to ask questions via billiard table assembler. Advised close f.u with pcp(see below) however, if develops CP/severe SOB/turning blue/severe abd pain/uncontrolle d /v/d or black/bloody emesis or stool/ AMS/ syncope/ hi fever to call 911- verbalized understanding of instructions via the bulb planter. [email or web address] Not available 12/22/2024 17:09:16 Plan of Treatment Reminders Order Date Submit Date Provider Last Modified By Organization Details Last Modified Time Details Appointments None recorded. Lab BMP, serum or plasma 2024 025 [facility], [address] [place] [address], [phone] 20:17:27 Referral None recorded. Procedures None recorded. Surgeries None recorded. Imaging None recorded. Medication Orders ondansetron HCl (PF) 4 mg/2 mL injection solution 2024 025 [email or web address] [facility] #[id number], [address] [place], [address], 16:57:15 ondansetron 4 mg disintegrat ing tablet 2024 [id number] [address] [place], [address], 16:57:19 simethicone 125 mg capsule 2024 025 [id number], [address] [place], [address], 16:57:18 Colace 2-In-1 8.6 mg-50 mg tablet 2024 [id number], [address] [place], [address], 16:57:22 Patient TargetsNo targets recorded. Patient InstructionsNo instructions recorded. Reason for Referral None Reported. Results Created Date Observation Date Name Description Value Unit Range Abnormal Flag Note LastModifiedBy Organization Detail LastModifiedTime Result Notes None recorded. Medical Equipment None Reported. Allergies Allergen ID Allergen Name Allergen Category Reaction Reaction Severity Criticality Documentation Date Start Date Code Code System Note Provider Name and Address Organization Details Recorded Time 88389 metoprolo l Not available Not available Not available Not available 01/30/2024 6918 RxNorm Not Available [facility] - production 17:06:26 89280 acetamino phen medicatio n Not available Not available Not available 12/22/20242022 161 RxNorm unrec ogniz ed react ion (text : Nause a And Vomit ing, code: 67200 000) (from exter nal sour e) Not Available [facility] - External Data Service - prod 16:18:50 30010 amlodipin e medicatio n Not available Not available Not available 12/22/20242024 53757 RxNorm Not Available [facility] - External Data Service - prod 16:18:50 12771 atorvasta tin calcium medicatio n Not available Not available Not available 12/22/20242024 79331 RxNorm Not Available [facility] - External Data Service - prod 16:18:50 25210 empaglifl ozin medicatio n Not available Not available Not available 12/22/20242022 91717 53 RxNorm Other react ion(s ): vagin al itch Other React ion(s ): vagin al itch Not Available [email or web address] Data Service - prod 16:18:50 73394 evolocuma b medicatio n Not available Not available high 12/22/20242024 80257 84 RxNorm Other React ion(s ): Hyper tensi on Body aches Not Available [facility] - External Data Service - prod 16:18:50 61912 redtop grass pollen extract medicatio n Not available Not available low 12/22/20242022 20770 0 RxNorm unrec ogniz ed react ion (text : Unkno wn, code: 06162 5006) (from exter nal sourc e) Not Available [email or web address] Data [employer] - prod 16:18:50 99165 ibuprofen medicatio n Not available Not available Not available 12/22/20242022 5640 RxNorm Other react ion(s ): Stoma ch Upset Other React ion(s ): Stoma ch Upset Not Available [email or web address] - prod 16:18:50 89977 losartan medicatio n Not available Not available Not available 12/22/20242024 91466 RxNorm unrec ogniz ed react ion (text : Unkno wn, code: 45982 5006) (from exter nal sourc e) Not Available [email or web address] Data [employer] - prod 16:18:50 86998 metformin medicatio n Not available Not available Not available 12/22/20242022 6809 RxNorm Other react ion(s ): stoma ch pain Other React ion(s ): stoma ch pain Not Available [email or web address] Data [employer] - prod 16:18:50 08502 mold extract environme nt Not available Not available Not available 12/22/20242020 30789 8 RxNorm Not Available [facility] - External Data Service - prod 16:18:50 03576 oxycodone medicatio n Not available Not available Not available 12/22/20242022 7804 RxNorm unrec ogniz ed react ion (text : Nause a And Vomit ing, code: 70982 000) (from exter nal sourc e) Not Available [facility] - External Data Service - prod 16:18:50 54199 sitaglipt in medicatio n Not available Not available Not available 12/22/20242022 16848 1 RxNorm Other react ion(s ): stoma ch pain Other React ion(s ): stoma ch pain Not Available [facility] - External Data Service - prod 16:18:50 29495 umeclidin ium bromide medicatio n Not available Not available [facility] 12/22/20242022 86376 12 RxNorm Other react ion(s ): Chest Pain Not Available [facility] - External Data Service - prod 16:18:50 6413 ezetimibe medicatio n Not available Not available Not available 11/29/2023 20021 8 RxNorm Not Available [facility] - production 13:58:51 6414 fluticaso ne Not available Not available Not available Not available 11/29/2023 16157 RxNorm Not Available [facility] - production 13:58:51 6415 hydrocodo ne Not available Not available Not available Not available 11/29/2023 5489 RxNorm Not Available [facility] - production 17:06:26 6416 umeclidin ium medicatio n chest pain Not available Not available 11/29/2023 14694 14 RxNorm Tracy Mobley MD [address] [facility],[address], [place], [address], [facility] - [employer], [facility] 5 16:38:20 6417 lisinopri l medicatio n Not available Not available Not available 11/29/2023 45058 RxNorm Not Available [facility] - production 4 13:58:51 Medications Name Sig Start Date Stop [...] Available senna 8.6 mg tablet TOME CINDY PANA DOS VECES AL D A active Not [...] Not Available Not Available No t Available simethicone 125 mg capsule take after meals and at bed time( 4 times per day for gas/bloatin g 2024 active Not Available Not Available Not Avai lable hydroxyzine pamoate 50 mg capsule TAKE 1 [...] Not Available Not Available No t Available docusate sodium 100 mg capsule TAKE [...] 8 hours by translingua l route as needed, for nausea. 2024 active Not Available Not Available Not [...] active Not Available Not Available Not Available Dulera 200 mcg-5 mcg/actuatio n HFA [...] Not Available Not Available No t Available Colace 2-In-1 8.6 mg-50 mg tablet Take 2 tablets every day by oral route for 10 days. 2024 active Not Available Not Available Not Avai lable BD Ultra-Fine Micro Pen Needle 32 gauge [...] Available Not Available Not Available Dexcom G7 Commercial Litigation Paralegal USE DIRECTED active Not Available Not Available No t Available Dexcom G7 Sensor device USE DIRECTED ..CHANGE EVERY 14 DAYS active Not Available Not Available No t Available Vitals Date Recorded Respiratory rate Heart rate Body weight Body height Oxygen saturation Body temperature Systolic And Diastolic Provider Name and Address Organization Details Last Updated DateTime 5 16 /min 68 /min 49340.8 8 g 152.4 cm 99 % 98.8 [degF] 182/78 mm[Hg] Not Available [facility] - production 15:58:25 Social History None recorded. Functional Status None recorded. Mental Status None recorded. Family History Nothing Reported. Medical History No medical history recorded. Gynecological HistoryNo gynecological history recorded. Obstetrics History GPAL:G 0 P 0 0 0 0 Past Encounters Encounter ID Performer Location Encounter Start Date Encounter Closed Date Diagnosis/Indication Diagnosis SNOMED-CT Code Diagnosis ICD10 Code Diagnosis IMO Codes Diagnosis Note [id number] Tracy Mobley MD [facility] [address] [place] [address] 12/22/2024 15:58:22 12/23/2024 10:51:37 Generalized abdominal pain 598263962 R10.84 234499 BMP nonconcern ing other than mildly elevated blood sugar but patient has been eating white rice applesauce and apples which would cause mild hyperglyce sonia. expl cannot give straight pain medicaton due to allergies ( nsaids and apap) but will treat gasiness bloating /nausea and constipati on which should help her s/s- she verbalized understand ing thru the interprete r and is agreeable with the plan. Advised bland light diet- expl applesauce and white rice which she has been eating are very constipati ng. Advised need to f/u closely with pcp and gastroente rologist -she has PCP on Sunday- advised her to keep that appointmen t and bring all her new medication s. She is to continue taking her omeprazole daily. She verbalized understand ing through the interprete r Advised importance of taking her regular medication s such as her antihypert ensives and her clopidogre l. If she is having severe enough abdominal pain that she cannot eat or take any medication she needs to go to the ER otherwise she needs to take her medication to prevent complicati ons of uncontroll ed hypertensi on like ACS/CVA-sh e verbalized understand ing. Health Concerns Section Related Observation LastModified by Organization Detai ls LastModified Time None Recorded Concern Status LastModified by Organization Details LastModified Time None Recorded Payers Encounter Date Sequence Insurance Name Policy Number Policy Valdovinos Covered Member ID Valdovinos Member ID Guarantor Name 12/22/2024 1 [facility] - DOS ON OR AFTER 2022 - DUAL ELIGIBLE - FDC OPTIONS AND ONE CARE (MEDICARE REPLACEMENT/AD VANTAGE - HMO) Natali Ai Cortes [id number] Natali Carter Ai Cortes Notes Date Note Type Note Provider Name and Address Organization Details Recorded Time 12/22/2024 text/html ROS as noted in the [facility] CRC Nurse Triage Notes (Jaye Smart): Reason For Request: PT reporting severe abdominal pain in which she went to the ED for>has a visit with her PCP this Sunday>notes she has NOT taken her bp medication yet due to her ongoing symptonsAllergies to medication: lisinopril, amlodipinePMH: Diabetic, high bp Denies: Sharp focal or diffuse abdominal pain Vomiting blood/coffee ground material Bloating, jaundice new onset with pain Nausea and vomiting greater than 2 hours with abdominal pain Tearing pain that radiates to back Food Impaction Chief Complaints: Abdominal Pain, Nausea / Vomiting PMH: COPD/Asthma, Hypertension, Diabetes Mellitus Type 2, Hyperlipidemia, Allergic Rhinitis, Gastroesophageal Reflux Disease (GERD), Coronary Artery Disease, Asthma PMH Reviewed at 12/22/2024 - :14 Allergies Reviewed at 12/22/2024 15:14 Comments: 79 y.o female complains of Abdominal Pain, Nausea / Vomiting Referral taken via Drive Away Driver Patient with abdominal pain Patient seen in ED CT ABD negative, blood work benign Patient with ongoing stomach pain Denies any inflammatory bowel disease +nausea, no vomiting Patient feels like she has a lot gas Patient became agitated with the questions, and did not wish to answer any further triage questions, patient educated why we ask questions, she still declined and just wants to be evaluated I provided information on the mobile health provider response time and advised the patient and/or caregiver to monitor reported signs and symptoms. I discussed the warning signs of when to seek emergency care. Calender Roll Operator Organization Information for [facility] Business Legal Name: [employer]. Address: [address] [place] [address], Results Engineer: Miguel Brown MD CLIA No.: [id number] Calender Roll Operator POC Test Results from [facility] iSTAT Chem8+ (16:27:28) Na: 140mEq/L K: 4.1mEq/L Cl: 105mEq/L iCa: 1.26mmol/L TCO2: 24mmol/L Glu: 199mg/dL BUN: 13mg/dL Crea: 0.8mg/dL Hct: 41% Hb: 13.9g/dL Ammol/L Cartridge Number: [id number] Attachments uploaded as part of this test result can be found under Documents section. ....................... ....................... ....................... ....................... ....................... ....................... ... Calender Roll Operator Note From Juan José Montoya: [facility] makes pt contact a 79 YO F CC of abdominal discomfort. [facility] obtains vital signs. [facility] utilizes language services for language barrier. PT [...] PT reports moving her bowels earlier today but it was hard and she believes she has a lot of gas and constipation. She attempted to relieve some of thevdiscomfort with different teas, and apple sauce. PT still able to eat or drink but did not take her medications yet because they would make it worse so she is waiting until she feel s a little better. [facility] contacts [facility] and explains above mentioned. [facility] and language line are merged together. [facility] starts a 20g IV in the right ac and also gets blood for a bmp. BMP is performed and results are uploaded and discussed. [facility] orders 4mg zofran be given IV. PT also has simethicone and colace sent to her pharmacy. Directions of medication prescription explained to pt. PT allergies confirmed. PT is advised that f she has n/v, fever, chest pain, sob, worsening symptoms, or has blood in her stool that she should seek a higher level of care such as 911. PT should also reach out to her isotope hydrologist and her pcp. PT understands. MIH clear. [facility] Lab Orders: BMP, serum or plasma: Performed [facility] Medication Orders: ondansetron HCl (PF) 4 mg/2 mL injection solution: Performed ....................... ....................... ....................... ....................... ....................... ....................... ... [facility] Consulted: Tracy Mobley ....................... ....................... ....................... ....................... ....................... ....................... ... Disposition: Fulfilled Tracy Mobley MD [address] [facility],[address], [place], [address], [employer] 12/23/2024 10:29:27 OBGyn Episode No OBEpisode recorded.
--- OUTSIDE RECORDS SUMMARY | 2025-01-30 00:28 | XMS_ITS | Encounter Summary ---
Author Organization [employer] Address [address] [place] [address] Care Team Providers Care Education Spec Name Role Phone Liset Mitchell MD Primary Care Provider [phone] Encounter Details Date Type Department Care Team (Late st Contact Info) Description 10/07/2024 Orders Only [facility] [address] [place], [place] [phone] Rancho Alonzo MD [address] [place], [place] [phone] Social History Tobacco Use Types Packs/Day Years [...] 01/30/2025 3:30 PM EST Office Visit [facility] [address] [place] [address] Liset Mitchell MD [address] [place] [address] 03/09/2025 3:15 PM EST Office Visit [facility] [address] [place] [address] Liset Mitchell MD [address] [place] [address] documented as of this encounter Visit Diagnoses Not on filedocumented in this encounter Additional Health Concerns Assessment Noted Time PHQ-9 Depression Total Score: 4 02/28/19 25 9:06 AM EST documented as of this encounter Care Teams Education Spec Relationship Specialty Start Date End Date Liset Mitchell MD [address] [place] [address] PCP - General Family Medicine 09/14/20 documented as of this encounter
--- OUTSIDE RECORDS SUMMARY | 2025-01-30 00:28 | XMS_ITS | Encounter Summary ---
Author Organization [facility] Address [address] [place] [address] Encounters * CPT with Keo Bills at [facility] on 2024-08-09 { reasonForRequest : Patient seems to have problems with her Blood pressure and justdoesn't feel good. , patientReports : , denies :[ Historyof Heart Attack, in the setting of active chest pain , Active Chest pain, radiates to neck jaw and or arm , Diaphoretic/Sweating , Describes as crushing ,"Sudden onset of nausea/Vomiting and shortness of breath. , Shortness of Breath ,"Unable to speak in full sentences without distress ], chiefComplaints : High Blood Pressure , pmh : COPD/Asthma, Hypertension, Diabetes Mellitus Type 2, Hyperlipidemia, Allergic Rhinitis, Gastroesophageal Reflux Disease (GERD), Coronary Artery Disease, Asthm a , allergies : Lisinopril, Fluticasone, Hydrocodone, Ezetimibe, Metoprolol&quot ;, otherAllergies :null, painAssessment : , visitOutcome :& quot; , additionalComments : 78 y.o female complains of High Blood Pressure\nPat ient is Anguillan speaking primarily, staff interpreter# [id number]. Patient reports her blood pressure was high, [...] monitor reported signs and symptoms. I discussed thewarning signs of when to seek emergency care -Kimberly Pettit RN } This 78-year-old female with a history including [...] breath, headaches, dizziness, fevers, nausea, vomiting, diarrhea. Patienthad blood work done yesterday through her PCPs office and is supposed to get a call from them on Sun to schedule a follow-up appointment. Patient presents [...] and reasonable amount of risk given the benefitof avoiding an ED visit. I provided education [...] high fever, altered mental status. The patient wasgiven the opportunity to ask questions and is agreeable to this plan. IV_(FLUIDS_AND/OR_MEDICATION), MEDICATION_IM, ORAL_MEDICATION, EKG, ORTHOSTATIC_VITAL_SIGNS Written by Keo Bills on 2024-08-09
--- OUTSIDE RECORDS SUMMARY | 2025-01-30 00:28 | XMS_ITS | Encounter Summary ---
Author Organization [employer] Address [address] [place] [address] Care Team Providers Care Senior Chemical Engineer Name Role Phone Liset Mitchell MD Primary Care Provider [phone] Reason for Visit * Reason Comments Med Change Request Encounter Details Date Type Department Care Team ([facility] Contact Info) Description 10/02/2022 Refill [facility] [address] [place], [place] [phone] Carla Cheng MD [address] [place] [phone] Social History Tobacco Use Types Packs/Day Years [...] Upcoming Encounters Date Type Department Care Team ([facility] Contact Info) Description 01/30/2025 3:30 PM EST Office Visit [facility] [address] [place], [place] [phone] Liset Mitchell MD [address] [place] [address] 03/09/2025 3:15 PM EST Office Visit [facility] [address] [place] [address] Liset Mitchell MD [address] [place] [address] documented as of this encounter Visit Diagnoses Not on filedocumented in this encounter Additional Health Concerns Assessment Noted Time PHQ-9 Depression Total Score: 0 04/13/19 23 10:04 AM EST documented as of this encounter Care Teams Senior Chemical Engineer Relationship Specialty Start Date End Date Liset Mitchell MD [address] [place] [phone] PCP - General Family Medicine 09/14/20 documented as of this encounter
--- OUTSIDE RECORDS SUMMARY | 2025-01-30 00:28 | XMS_ITS | Data Portability ---
Author Organization [employer] [facility], [facility] Address [address] [place] [address] Care Team Providers Care Editor Farm Journal Name Role Phone HIM CCA OTHER [facility] Primary Care Provider [phone] Assessment Encounter Date Assessment Date Assessment LastModified by Organization Details LastModified Time 05/21/2024 05/21/2024 As noted, we were called to see this patient regarding concerns of high blood pressure. Evaluation in the field was performed by my board setter colleague, as noted above, I provided real-time [...] Assessment and Plan as documented by the Supervisor Keymodule Assembly. We discussed the diagnostic uncertainty of home [...] to call 911- verbalized understanding of instruction [email or web address] Not available 08/09/2024 19:44:09 12/22/2024 12/22/2024 I provided real -time medical direction via phone for this encounter, and was available for additional phone based assistance as needed. I have reviewed and agree with the Assessment and Plan as documented by the Supervisor Keymodule Assembly. We discussed the diagnostic uncertainty of home visits and the risk associated with this. In this case the patient and I felt this to be an acceptable and reasonable amount of risk given the benefit of avoiding an ED visit. The patient given the opportunity to ask questions via furniture servicer. Advised close f.u with pcp(see below) however, if develops CP/severe SOB/turning blue/severe abd pain/uncontrolle d /v/d or black/bloody emesis or stool/ AMS/ syncope/ hi fever to call 911- verbalized understanding of instructions via the seismic interpreter. [email or web address] Not available 12/22/2024 17:09:16 Plan of Treatment Reminders Order Date Submit Date Provider Last Modified By Organization Details Last Modified Time Details Appointments None recorded. Lab BMP, serum or plasma 2024 [facility], [address] [place] [address], [phone] 20:17:27 BMP, serum or plasma [address], [address] 18:38:47 culture, urine 2024 [facility] (Centralized Electronic Ordering - All Locations), Patient Can Go To The Location Of Their Choice, [facility] 10:06:03 urinalysis, dipstick [address], [address] 19:53:02 Referral None recorded. Procedures None recorded. Surgeries None recorded. Imaging electrocard iogram 2024 [facility], [address] [place] [address], [phone] 22:26:12 Medication Orders ondansetron HCl (PF) 4 mg/2 mL injection solution 2024 [email or web address] [facility]/Pharmacy #[id number], [address] [place], [address], 16:57:15 ondansetron 4 mg disintegrat ing tablet 2024 025 [facility]/Pharmacy #[id number], [address] [place], [address], 16:57:19 simethicone 125 mg capsule 2024 [facility]/Pharmacy #[id number], [address] [place], [address], 16:57:18 Colace 2-In-1 8.6 mg-50 mg tablet 2024 025 [id number] [address] [place], [address], 16:57:22 ondansetron HCl (PF) 4 mg/2 mL injection solution 2024 [id number] [address] [place], [address], 17:28:52 Patient TargetsNo targets recorded. Patient InstructionsNo instructions recorded. Reason for Referral None Reported. Results Created Date Observation Date Name Description Value Unit Range Abnormal Flag Note LastModifiedBy Organization Detail LastModifiedTime 05/22/1905/23/2024 URINE CULTU RE,CO MPREH ENSIV E urine culture,comp rehensive Final report Not Available [facility] ([facility]) [address] [place], [address], 05/23/2024 10:06:03 05/22/19 25 05/23/2024 URINE CULTU RE,CO MPREH ENSIV E result 1 COMMEN T Mixed uroge nital ty 10,00 0-25, 000 colon y formi ng units per mL Not Available [facility] ([facility]) [address] [place], [address], 05/23/2024 10:06:03 06/25/19 25 06/24/2024 elect darion diogr am No observ ation record ed. [email or web address] Main - [address], [address] 06/24/2024 22:15:08 Result Notes None recorded. Medical Equipment None Reported. Allergies Allergen ID Allergen Name Allergen Category Reaction Reaction Severity Criticality Documentation Date Start Date Code Code System Note Provider Name and Address Organization Details Recorded Time 92428 metoprolo l Not available Not available Not available Not available 01/30/2024 6918 RxNorm Not Available [facility] - production 17:06:26 63199 acetamino phen medicatio n Not available Not available Not available 12/22/20242022 161 RxNorm unrec ogniz ed react ion (text : Nause a And Vomit ing, code: 78303 000) [facility] Not Available [facility] - External Data Service - prod 16:18:50 00070 amlodipin e medicatio n Not available Not available Not available 12/22/20242024 88321 RxNorm Not Available [facility] - External Data Service - prod 16:18:50 47642 atorvasta tin calcium medicatio n Not available Not available Not available 12/22/20242024 50291 RxNorm Not Available [facility] - External Data Service - prod 16:18:50 69232 empaglifl ozin medicatio n Not available Not available Not available 12/22/20242022 95429 53 RxNorm Other react ion(s ): vagin al itch Other React ion(s ): vagin al itch Not Available [facility] - External Data Service - prod 16:18:50 76056 evolocuma b medicatio n Not available Not available high 12/22/20242024 61059 84 RxNorm Other React ion(s ): Hyper tensi on Body aches Not Available [facility] - External Data Service - prod 16:18:50 93526 redtop grass pollen extract medicatio n Not available Not available low 12/22/20242022 86737 0 RxNorm unrec ogniz ed react ion (text : Unkno wn, code: 23499 5006) (from [facility] e) Not Available [facility]uette - External Data Service - prod 16:18:50 00006 ibuprofen medicatio n Not available Not available Not available 12/22/20242022 5640 RxNorm Other react ion(s ): Stoma ch Upset Other React ion(s ): Stoma ch Upset Not Available [facility] - External Data Service - prod 16:18:50 58375 losartan medicatio n Not available Not available Not available 12/22/20242024 94743 RxNorm unrec ogniz ed react ion (text : Unkno wn, code: 66176 5006) (from exter nal sour e) Not Available [facility] - External Data Service - prod 16:18:50 84243 metformin medicatio n Not available Not available Not available 12/22/20242022 6809 RxNorm Other react ion(s ): stoma ch pain Other React ion(s ): stoma ch pain Not Available [facility] - External Data Service - prod 16:18:50 42595 mold extract environme nt Not available Not available Not available 12/22/20242020 35914 8 RxNorm Not Available [facility] - External Data Service - prod 16:18:50 04968 oxycodone medicatio n Not available Not available Not available 12/22/20242022 7804 RxNorm unrec ogniz ed react ion (text : Nause a And Vomit ing, code: 27085 000) (from exter nal sourc e) Not Available [facility] - External Data Service - prod 16:18:50 43335 sitaglipt in medicatio n Not available Not available Not available 12/22/20242022 42620 1 RxNorm Other react ion(s ): stoma ch pain Other React ion(s ): stoma ch pain Not Available [facility] - External Data Service - prod 16:18:50 91957 umeclidin ium bromide medicatio n Not available Not available [facility] 12/22/20242022 36561 12 RxNorm Other react ion(s ): Chest Pain Not Available [facility] - External Data Service - prod 16:18:50 6413 ezetimibe medicatio n Not available Not available Not available 11/29/2023 02333 8 RxNorm Not Available [facility] - production 13:58:51 6414 fluticaso ne Not available Not available Not available Not available 11/29/2023 57693 RxNorm Not Available [facility] - production 13:58:51 6415 hydrocodo ne Not available Not available Not available Not available 11/29/2023 5489 RxNorm Not Available [facility] - production 17:06:26 6416 umeclidin ium medicatio n chest pain Not available Not available 11/29/2023 71168 14 RxNorm Tracy Mobley MD [address] [facility],[address], [place], [address], [facility] [employer] 5 16:38:20 6417 lisinopri l medicatio n Not available Not available Not available 11/29/2023 41628 RxNorm Not Available [facility] - production 13:58:51 [...] Available Not Available Not Available Dexcom G7 Senior Media Planner USE DIRECTED active Not Available Not Available No t Available Dexcom G7 Sensor device USE DIRECTED ..CHANGE EVERY 14 DAYS active Not Available Not Available No t Available Vitals Date Recorded Respiratory rate Heart rate Oxygen saturation Systolic And Diastolic Provider Name and Address Organization Details Last Updated DateTime 05/21/2024 16 /min 83 /min 98 % 160/80 mm[Hg] Not Available [facility] - production 19:06:02 Date Recorded Respiratory rate Heart rate Body height Body weight Heart rate Oxygen saturation Body temperature Systolic And Diastolic Systolic And Diastolic Provider Name and Address Organization Details Last Updated DateTime 5 14 /min 72 /min 157.48 cm 98769.8 g 63 /min 98 % 98 [degF] 149/81 mm[Hg] 160/76 mm[Hg] Not Available [facility] - [employer] 5 19:38:03 Date Recorded Heart rate Body temperature Respiratory rate Oxygen saturation Systolic And Diastolic Provider Name and Address Organization Details Last Updated DateTime 5 68 /min 97.7 [degF] 16 /min 98 % 162/68 mm[Hg] Not Available [facility] [employer] 17:21:49 Date Recorded Respiratory rate Heart rate Body temperature Oxygen saturation Systolic And Diastolic Provider Name and Address Organization Details Last Updated DateTime 5 16 /min 62 /min 98.1 [degF] 97 % 162/81 mm[Hg] Not Available [facility] [employer] 17:30:54 Date Recorded Respiratory rate Heart rate Body weight Body height Oxygen saturation Body temperature Systolic And Diastolic Provider Name and Address Organization Details Last Updated DateTime 5 16 /min 68 /min 98581.8 8 g 152.4 cm 99 % 98.8 [...] Sosa Donnelly MD Main - [facility] [address] [place] [phone] 07/20/2021 17:44:53 11/22/2021 12:52:06 Dysuria 29540880 R30.9 [id number] Holland Lewis MD Main - [facility] [address] [place] [phone] 08/24/2021 17:49:18 11/17/2021 12:06:10 Adverse reaction to drug 01346565 T50.905A Reports some nausea and fatigue immediatel [...] Narendra Hassan MD Main - [facility] [address] [place] [phone] 10/08/2021 16:48:26 11/21/2021 12:43:51 Dysuria 21286741 R30.9 Will await culture prior to treatment [place]/A [id number] Nataliia Grewal MD Main - [facility] [address] [place] [phone] 07/13/2022 17:00:14 07/14/2022 08:55:34 Inguinal pain 863447862 R10.2 [id number] Holland Lewis MD Main - [facility] [address] [place] [phone] 08/24/2022 12:05:17 08/24/2022 22:29:37 Wheezing 72331118 R06.2 suspect viral-william kimberley bronchospa sm. Patient had some improvemen t with a short course of steroids prescribed last week but symptoms persist. No evidence of bacterial superinfec tion based on available data. Offered DuoNeb and a recurrent course of steroids, but patient declined. She will seek further care with her PCP. Red flags reviewed by board setter and patient in understand ing. [id number] González Campo MD Main - [facility] [address] [place] [phone] 12/12/2022 18:24:35 12/13/2022 22:28:07 Facial swelling 241177200 R22.0 [id number] Rich Lee MD Main - [facility] [address] [place] [phone] 03/26/2023 19:07:48 03/27/2023 10:52:20 Pain in right foot [id number] 00978 M79.671 This 77-year-ol d female with type 2 diabetes got her right foot caught in a screen today, and she thinks it cut her foot. The board setter found no visual trauma to her right foot. I recommende d observatio n. She will follow-up with her PCP for any ongoing problems with her foot. The patient agreed with this plan. [id number] Nataliia Grewal MD Main - [facility] [address] [place] [phone] 07/17/2023 13:48:23 07/17/2023 17:51:58 Pain of shoulder region 14692270 M25.519 [id number] González Campo MD Main - [facility] [address] [place] [phone] 08/10/2023 16:32:57 08/10/2023 21:11:42 Seasonal allergic rhinitis 552010966 J30.2 [id number] Luci Corey MD Main - [facility] [address] [place] [phone] 10/22/2023 19:42:26 10/22/2023 21:01:10 Nausea 612837223 R11.0 11456 Giorgio Pathak MD Main - [facility] [address] [place] [phone] 11/29/2023 10:16:41 11/30/2023 00:42:40 Erythematous rash 314640310 R21 could be cellulitis vs fungal process [id number] Nataliia Grewal MD Main - [facility] [address] [place] [phone] 01/30/2024 21:07:30 01/31/2024 08:54:42 Essential hypertension 45587045 I10 [id number] PRAMOD JEREZ MD Main - [facility] [address] [place] [phone] 02/08/2024 10:51:33 02/08/2024 14:05:30 Lesion of nasal mucosa 203331242 J34.89 [id number] GENE GUO MD Main - [facility] [address] [place] [phone] 0 03/26/2024 20:30:34 03/26/2024 23:58:55 Nausea and vomiting 83646960 R11.2 77804 Luci Corey MD Main - [facility] [address] [place] [phone] 05/21/2024 19:06:00 05/21/2024 21:57:41 Hypertensive disorder 41090428 I10 Abnormal urinalysis 1672 00525 R82.90 Dysuria 42101229 R30.0 [id number] González Campo MD Main - [facility] [address] [place] [phone] 06/24/2024 19:37:52 06/24/2024 21:30:35 Dizziness 570392803 R42 46306 [id number] [facility]man [facility] [address] [place] [phone] 07/22/2024 17:21:47 07/22/2024 20:01:15 Nausea and vomiting 21486233 R11.2 [id number] As noted, we were called to see this patient regarding concerns of nausea and vomiting. Evaluation in the field was performed by my board setter colleague, as noted above, I provided real-time [...] changes to consciousn ess, chest pain, dyspnea. [id number] JEFF BILL NP, S [facility] [address] [phone] 08/09/2024 17:30:50 08/11/2024 19:25:00 Anxiety 85021655 F41.9 95312 [id number] Tracy Mobley MD [facility] [address] [phone] 12/22/2024 15:58:22 12/23/2024 10:51:37 Generalized abdominal pain 502555150 R10.84 532152 BMP nonconcern ing other than mildly elevated [...] Valdovinos Member ID Guarantor Name 08/24/2022 1 [facility] - DOS PRIOR TO 2022 - DUAL ELIGIBLE (MEDICARE REPLACEMENT/AD VANTAGE - HMO) Natali Cortes [id number] Natali Cortes 12/22/2024 1 [facility] - DOS ON OR AFTER 2022 - DUAL ELIGIBLE - ASSISTED OPTIONS AND ONE CARE (MEDICARE REPLACEMENT/AD VANTAGE - HMO) Natali Cortes [id number] Natali Cortes Notes Date Note Type Note Provider Name and Address Organization Details Recorded Time 05/21/2024 text/html HPI: Ezetimibe Drug Ingredient Not [...] Vomiting N ot Specified I ntolerance Sitagliptin ...................... ....................... ....................... ....................... ....................... ....................... .... CRC Nurse Triage Notes (Vikci Jane): Chief Complaints: High Blood Pressure, Urinary Symptoms PMH: COPD/Asthma, Hypertension, Diabetes Mellitus Type 2, Hyperlipidemia, Allergic Rhinitis, Gastroesophageal Reflux Disease (GERD), Coronary Artery Disease, Asthma PMH Reviewed at 05/21/2024: Allergies Reviewed at 05/21/2024:47 Comments: [facility]: Supervisor Keymodule Assembly Organization Information for Rubio Swanson Legal Name: [employer]. Address: [address] [place] [address], Systems Engineering Manager: Miguel Brown MD [facility] No.: [id number] Supervisor Keymodule Assembly POC Test Results from Rubio Swanson Urine [...] Vomiting N ot Specified I ntolerance Sitagliptin ...................... ....................... ....................... ....................... ....................... ....................... .... [facility] Nurse Triage Notes (Vicki Jane): Chief Complaints: High Blood Pressure, Urinary Symptoms PMH: COPD/Asthma, Hypertension, Diabetes Mellitus Type 2, Hyperlipidemia, Allergic Rhinitis, Gastroesophageal Reflux Disease (GERD), Coronary Artery Disease, Asthma PMH Reviewed at 05/21/2024:47 Allergies Reviewed at 05/21/2024:47 Comments: [facility]: seen yesterday at ED for high blood pressure. neg lab and ekg work up. having dysuria, as well. 200/100s yesterday. 180/70 today. no kumar, vision changes, chest pain. called PCP for appt but not appt yet.HTN meds: amlodipine - 5mg; last filled Feb 3Also on qhs insulin, clopidogrel, sertraline, aspirin ....................... ....................... ....................... ....................... ....................... ....................... ... Supervisor Keymodule Assembly Note From Rubio Swanson: dispatched for a 78yo female with hypertension and burning urination. Pt reports she was seen yesterday at [facility] for hypertension. Pt reports BP was 200+/100+. Pt was discharged with no finding. Pt reports she called today because she needs med changes to manage bp and recent burning urination. Pt denies h/a, dizziness, cp, sob or nausea at this time. [facility] consulted. Urine dip and lab send out order. Pt informed she can increase her amlodipine from 5mg to 10mg until she can get into her anesthesiology physician assistant. [facility] informs pt to make sure she follows up with PCP or anesthesiology physician assistant. Pt informed of red flags. Pt states she understands. Pt found walking and speaking in full clear sentences with no signs of distress. AO and GCS-15. PERRL. Skin warm/dry. Airway open and lung sounds clear. ABD soft nontender. BGL:291. Rest of exam unremarkable. [facility] Lab Orders: culture, urine: Performed urinalysis, dipstick: Performed ....................... ....................... ....................... ....................... ....................... ....................... ... [facility] Consulted: Luci Corey ....................... ....................... ....................... ....................... ....................... ....................... ... Disposition: Fulfilled Luci Corey MD [address] [facility],[address], [place], [address], [employer] 05/21/2024 20:47:38 06/24/2024 text/html CRC Nurse Triage [...] Dizziness, Heart Rate Problems Referral taken via Grain Blender. Patient unable to confirm allergies. Patient calling [...] signs of when to seek emergency care. ....................... ....................... ....................... ....................... ....................... ....................... ... Supervisor Keymodule Assembly Note From Richard Jamison: Patient alert and [...] extremities, unremarkable good skin TURGOR. ECG to [facility]. [facility] advises patient to stop using minoxidil consider watchful waiting and contact PCP or [facility] for further treatment if symptoms return. Red flags, patient education discussed. ....................... ....................... ....................... ....................... ....................... ....................... ... [facility] Consulted: González Campo ....................... ....................... ....................... ....................... ....................... ....................... ... Disposition: Fulfilled González Campo MD [address] [place] [address],[address], [place], [address], [employer] 06/24/2024 21:19:26 07/22/2024 text/html CRC Nurse Triage [...] Coronary Artery Disease, Asthma PMH Reviewed at 07/22/2024 16:35 Allergies Reviewed at 07/22/2024 16:35 Comments: 78 y.o female complains of Abdominal Pain Call completed with seismic interpreter. Pt has been complaining of stomach [...] signs of when to seek emergency care. Supervisor Keymodule Assembly Organization Information for [place] Business Legal Name: [facility] Address: [address] [place] [address], JEANIE Brown [address], Systems Engineering Manager: Arcenio Logan MD CLIA No.: [id number] Supervisor Keymodule Assembly POC Test Results from Rancho Palmer [facility] (17:20:17) pH: 7.46 pH units pCO2: 37.0 mmHg pO2: 52.6 mmHg Na: 141 mmol/L K: 3.7 mmol/L iCa: 1.20 mmol/L Cl: 103 mmol/L TCO2: 25.1 mEq/L Hct: 43 % Hb: 14.8 g/dL Glu: 155 mg/dL Lac: 0.68 mmol/L Cr: 0.76 mg/dL BUN: 13 mg/dL A mmol/L HCO3: 26.1 mmol/L ....................... ....................... ....................... ....................... ....................... ....................... ... Supervisor Keymodule Assembly Note From [place]o Palmer: This 78-year-old female with a history including but not limited to COPD, HTN, HLD, DM type II, GERD, CAD requested a visit today to address three days of epigastric abdominal pain and nausea/vomiting. Patient states she went to [facility] emergency department yesterday and had a [...] questions and is agreeable to this plan. [facility] Lab Orders: BMP, serum or plasma: Performed [facility] Medication Orders: ondansetron HCl (PF) 4 mg/2 mL injection solution: Administered ....................... ....................... ....................... ....................... ....................... ....................... ... [facility] Consulted: Anny Hillman ....................... ....................... ....................... ....................... ....................... ....................... ... Disposition: Yaron Anny Hillman MD [address] [place] [address],[address], [place], [address], [employer] 07/22/2024 18:06:26 08/09/2024 text/html ROS as noted in the [facility] CRC Nurse Triage Notes (Rajesh [...] Coronary Artery Disease, Asthma PMH Reviewed at 08/09/2024:44 Allergies Reviewed at 08/09/2024 16:44 Comments: 78 y.o female complains of High Blood Pressure Patient is Chinese speaking primarily, seismic interpreter# [id number]. Patient reports her blood pressure was high, [...] to seek emergency care -Kimberly Pettit RN ....................... ....................... ....................... ....................... ....................... ....................... ... Supervisor Keymodule Assembly Note From [place]: This 78-year-old female [...] questions and is agreeable to this plan. ....................... ....................... ....................... ....................... ....................... ....................... ... [facility] Consulted: Jeff Bill ....................... ....................... ....................... ....................... ....................... ....................... ... Disposition: Yaron BILL NP, S [address] [facility],[address], [place], [address], [place] [employer] 08/09/2024 19:44:13 12/22/2024 text/html ROS as noted in the HPI CRC Nurse Triage Notes (Jaye Smart): Reason [...] Coronary Artery Disease, Asthma PMH Reviewed at 12/22/2024:14 Allergies Reviewed at 12/22/2024:14 Comments: 79 y.o female complains of Abdominal Pain, Nausea / Vomiting Referral taken via Grain Blender Patient with abdominal pain Patient seen in [...] signs of when to seek emergency care. Supervisor Keymodule Assembly Organization Information for Juan José Montoya Business Legal Name: [employer]. Address: [address] [place] [id number], Systems Engineering Manager: Miguel Brown MD CLIA No.: [id number] Supervisor Keymodule Assembly POC Test Results from Juan José Montoya [employer] Chem8+ (16:27:28) Na: 140mEq/L K: 4.1mEq/L Cl: 105mEq/L iCa: 1.26mmol/L TCO2: 24mmol/L Glu: 199mg/dL BUN: 13mg/dL Crea: 0.8mg/dL Hct: 41% Hb: 13.9g/dL Ammol/L Cartridge Number: [id number] Attachments uploaded as part of this test result can be found under Documents section. ....................... ....................... ....................... ....................... ....................... ....................... ... Supervisor Keymod[employer] Assembly Note From Juan José Montoya: [facility] makes pt contact a 79 YO F CC of abdominal discomfort. [facility] obtains vital signs. [facility] utilizes language services for language barrier. [...] until she feel s a little better. [facility] contacts [facility] and explains above mentioned. [facility] and language line are merged together. [facility] starts a 20g IV in the right ac and also gets blood for a bmp. BMP is performed and results are uploaded and discussed. [facility] orders 4mg zofran be given IV. PT [...] PT should also reach out to her childcare administrator and her pcp. PT understands. MIH clear. [facility] Lab Orders: BMP, serum or plasma: Performed [facility] Medication Orders: ondansetron HCl (PF) 4 mg/2 mL injection solution: Performed ....................... ....................... ....................... ....................... ....................... ....................... ... [facility] Consulted: Tracy Mobley ....................... ....................... ....................... ....................... ....................... ....................... ... Disposition: Fulfilled Tracy Mobley MD [address] [facility],[address], [place], [address], [employer] 12/23/2024 10:29:27 OBGyn Episode No OBEpisode recorded.
--- OUTSIDE RECORDS SUMMARY | 2025-01-30 00:28 | XMS_ITS | Encounter Summary ---
Author Organization [employer] Address [address] [place] [address] Care Team Providers Care Wet Wheeler Name Role Phone Liset Mitchell MD Primary Care Provider Reason for Visit * Reason Comments Med Refill Encounter Details Date Type Department Care Team ([facility] st Contact Info) Description 08/14/2024 Refill [facility] MEDICINE [address] [place] [address] Liset Mitchell MD [address], [place] [id number] Social History Tobacco Use Types Packs/Day Years [...] [facility] MED & PEDS [address] [place] [address] Liset Mitchell MD [address] [place] [address] 03/09/2025 3:15 PM EST Office Visit [facility] MED & PEDS [address] [place] [address] Liset Mitchell MD [address] [place] [address] documented as of this encounter Visit Diagnoses Not on filedocumented in this encounter Additional Health Concerns Assessment Noted Time PHQ-9 Depression Total Score: 4 02/28/19 25 9:06 AM EST documented as of this encounter Care Teams Wet Wheeler Relationship Specialty Start Date End Date Liset Mitchell MD [address] [place] [address] PCP - General Family Medicine 09/14/20 documented as of this encounter
[2025-01-30 00:42] LABS: Alanine Aminotransferase 18 U/L (0-31); Albumin Level 3.9 g/dL (3.5-5.0); Alkaline Phosphatase 54 U/L (39-117); Anion Gap 11 (12-20); Aspartate Amino Transferase 23 U/L (5-31); Blood Urea Nitrogen 25 mg/dL (9-16); Calcium 9.0 mg/dL (8.4-10.2); Carbon Dioxide 26 mmol/L (22-29); Chloride 108 mmol/L (96-108); Creatinine Clr Calc Pharmacy 48.0; Estimated Glomerular Filt Rate > 60; Potassium 4.0 mmol/L (3.3-5.1); Sodium 141 mmol/L (135-145); Total Protein 6.5 g/dL (6.5-8.0)
[2025-01-30 00:48] LABS: Troponin-I High Sensitivity 9.1 ng/L (<3.5-17.0)
[2025-01-30 01:48] VITALS: BP 158/65; PULSE 55; RESP 16; O2SAT 97
[2025-01-30 02:23] VITALS: BP 158/65; PULSE 55; RESP 16; TEMP 36.6; O2SAT 97
== END 2025-01-30 02:45 | disposition home or self-care (01) ==
PROVIDERS: Emergency Provider Emergency Medicine; PCP Family Medicine
DX: M25.562 Pain in left knee (principal); R00.1 Bradycardia, unspecified; R94.31 Abnormal electrocardiogram [ECG] [EKG]; Z79.899 Other long term (current) drug therapy
CPT/HCPCS: 36415; 80048; 80076; 84484; 85025; 93005; 99284

== ENCOUNTER → 2025-01-30 00:15 | Outpatient (BNV) | payer OTHER, SELFPAY | PROVIDERS: Emergency Provider Emergency Medicine; PCP Family Medicine; Visit Provider Internal Medicine | DX: R00.1 Bradycardia, unspecified (principal); I25.2 Old myocardial infarction | CPT/HCPCS: 93010 ==

== ENCOUNTER 2025-02-10 11:07 | Outpatient (AMB) | payer OTHER, SELFPAY ==
--- NOTE | 2025-02-10 11:16 | A.OFFVIS_ITS ---
Vital Signs 02/10/25 11:17 Height 4 ft 8 in Weight 137 lb 12.623 oz BMI 30.9 BP 110/50 L Blood Pressure Location Lt brachial Position Sitting Pulse 80 Pulse Source Pulse Oximeter Pulse Oximetry (%) 97 Oxygen Delivery Method Room Air Intake Visit Reasons: COPD Locomotive Engineer Required: Yes Locomotive Engineer Services: Locomotive Engineer Offered & Declined Locomotive Engineer Name: MD speaks divehi Traffic Police Officer: Traffic Police Officer offered & declined Accompanied by: Self / Same As Patient Allergies fluticasone (Flovent HFA) Allergy (Unknown, Verified 02/10/25 11:20) lip swelling lisinopril Allergy (Verified 02/10/25 11:20) Itching evolocumab (From Repatha SureClick) Adverse Reaction (Intermediate, Verified 02/10/25 11:20) Hypertension umeclidinium (From Incruse Ellipta) Adverse Reaction (Intermediate, Verified 02/10/25 11:20) Chest Pain empagliflozin (Jardiance) Adverse Reaction (Unknown, Verified 02/10/25 11:20) vaginal itch metformin Adverse Reaction (Unknown, Verified 02/10/25 11:20) stomach pain sitagliptin (Januvia) Adverse Reaction (Unknown, Verified 02/10/25 11:20) stomach pain acetaminophen (From Percocet) Adverse Reaction (Verified 02/10/25 11:20) Nausea and Vomiting hydrocodone (From Vicodin) Adverse Reaction (Verified 02/10/25 11:20) Nausea and Vomiting ibuprofen (From Motrin) Adverse Reaction (Verified 02/10/25 11:20) Stomach Upset oxycodone (From Percocet) Adverse Reaction (Verified 02/10/25 11:20) Nausea and Vomiting HPI Comments Details: The patient is a 79 year-old woman with a known history of asthma, pulmonary nodules and chronic cough. Today she has a telehealth visit. She was in her usual state health until for the last few days which she has been having worsening cough in addition to allergy symptoms. She has been visiting family in the symptoms appear to be getting worse. She has tried Benadryl because of significant daytime drowsiness. In addition to that she continues with current respiratory therapy with only partial resolution of the symptoms. She denies any fevers or chills or any exposure to any cover 19 infection. 07/22/2020 the patient is here for a follow-up visit. She is status post bronchoscopy. 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 Her left mainstem bronchus also appeared to be inflamed consistent with bronchitis. Her cultures were all negative except set for some filamentous fungus. I do not believe that this is infectious process. However, the patient has significant allergies and likely contributing to her worsening asthma and allergy symptoms. She is concerned because she also has mold in her current home that she is renting. At this point this place is not healthy and safe for her pulmonary health. I did provide her with a brief letter recommended that she relocate to an apartment or home free of rugs, free of pests and also free of mold. The patient is using cough medications. This has been helpful. In addition to has a history of obstructive sleep apnea. She not using CPAP at this time. The patient does have daytime drowsiness in addition to intermittent headaches. She also has a significant history of snoring. Her Plano score is elevated 24. I will request a home sleep study for the patient as well. The patient does have a CPT Acapella valve that she needs to use. She will bring it into the next visit so I can tissue had to use it in the meantime she is going to continue with current respiratory therapy. She also has an allergy appointment coming up soon. We did talk about the tracheobronchomalacia as far as different interventions. Ultimately if she wants to have a referral to [place] and will be reasonable specially if she fails conservative management. 07/26/2022 The patient is here for a follow up visit. he is doing well now. Several months ago she was admitted to [facility] with NSTEMI. Initially felt to need CABG, but then underwent a PCI with 2 stents to the RCA. She then was discharged, but then readmitted and underwent a repeat cath with PCI to LAD and OM2. She now is recovering.nIs suppose to start rehab. Has been using her inhalers as prescribed. She did under a CT chest, but is not read as of yet. I will call her once I have the results. Not tolerating the Breo powder. Causing hoarseness. Having worsening allergy symptoms with nasal congestion and cough. moderate in severity. 11/21/2022 the patient is here for a pulmonary follow-up visit. She is recovering from her cardiac interventions. She is participating in cardiac rehabilitation. She is tolerating that well. Now going to the fall she has noticed increasing allergy symptoms. She has been using her yzig-rre-asinmtl allergy medicine and has been using the Advair inhaler. She does use at twice a day. Still having to use her rescue inhaler throughout the day in complaining of chest tightness and cough. The patient also has some degree of tracheal bronchomalacia that is likely affecting her airway clearance. The patient was following up with Allergy and then now needs a referral to a new office because of a recent change. The patient will continue to follow up with Allergy immu nology because allergy shots were providing her positive results per in the meantime will going to go ahead and optimize respiratory therapy by adding a long-acting muscarinic antagonist and she will continue with the combination inhaler. 05/21/2023 the patient is here for a pulmonary follow-up visit. The patient overall has been about the same. She still complains of a cough. Has been getting worse still. Moderate severity. With some chest congestion. Also sinus pressure feels like the cough is mainly from a postnasal drip. The patient has been on nasal therapies without any significant improvement. She does have issues with tracheobronchomalacia likely contributing to her chronic cough. Will go ahead and try her on a small dose of doxycycline for 10 days to see if we can alleviate her symptoms. In the meantime she has been on the respiratory inhalers with partial improvement of the symptoms. She responds better to the nebulized therapy. Will make sure to provide the medications to the pharmacy. We also give her breathing treatment in the office. She does get replacement nebulizer since hers is broken beyond repair. 09/17/2023 the patient is here for a pulmonary follow-up visit. The patient overall has been doing well. Her cough seems to be a little better. She did have a bout of bronchitis and them sinusitis. She was treated effectively for those. She still feels like she has some chest tightness. Although she has not been using her Advair. She does have diabetes would like to prevent on too much prednisone use. I did give her a spacer in order for her to use her Advair twice a day. Issues that she his oral irritation from the Advair. Hopefully with a spacer she will tolerated better. She knows to rinse with mouthwash or salt water. In the meantime she has not been able to use her CPAP because it fell and she is not sure if is working. She does use reliable respiratory. I will send for additional supplies. Will going to have her bring the machine in so we can evaluated in the coming weeks. If the machine is not working then will have to reach out to reliable. Otherwise will try to adjusted for her for her to start using it since she needs it for her underlying sleep apnea. As far as imaging studies she did have a chest x-ray sometime last month because she did have COVID. He was read as no acute disease. Her last CT scan of the chest was back in 07/15/2022 which she had multiple pulmonary nodules largest 1 measuring 5 mm in size. Will plan to allow her to recover after having COVID months ago and then repeat her CT scan in III months' time to follow-up with the pulmonary nodules. If her nodules are stable no further follow-up is warranted. 01/04/2024 the patient is here for a pulmonary follow-up visit. Overall the patient has been doing well. She is not using the CPAP. She feels like she is sleeping okay waking up rested. Her Plano score is 5/24. Therefore she can continue to perform positional therapy for now. If she becomes symptomatic we can also consider repeating the sleep study. In addition to that she continues use her Advair as prescribed. She has not had to use her rescue inhaler. [facility] have a CT scan of the chest in 10/16/2023 which we personally reviewed. It appears that her pulmonary nodules have been stable and unchanged. ent respiratory therapy. She will get the Prevnar 20 vaccine today. And she will follow-up with her other vaccines at the pharmacy. Patient will follow-up in a year's time. If she has any issues prior to that she will call for an earlier assessment. 08/07/2024 the patient is here for pulmonary follow-up visit. Overall the patient has been doing fairly well she continues her respiratory therapy as prescribed. She has not required any additional prednisone. She has not been using her CPAP. She continues positional therapy and she seems to be doing okay. Plano score is reasonable. He did have issues with blood pressure but it seems like it is doing better at this time. Therefore she will continue with positional therapy hold off on any PAP therapy. We did review her CT scans and she does have this nodular density in the left lower lobe that is about 6 mm in size in although is been stable it does have an irregular appearance. Therefore I will request a repeat CAT scan at this time to be done in September of 2024. She continues use her respiratory therapy as prescribed. Will plan to follow-up in 6 months. 02/10/2025 the patient is here for pulmonary follow-up visit. Overall the patient is doing okay she continues use her respiratory therapy as prescribed. It provides some relief. She has been dealing with depression though she has been very sad lately. A lot of psychosocial issues in the family. In the meantime the patient is feeling rested in the morning. Her Plano score 6/24. No need to use CPAP at this time. Cardiovascular henson she is doing okay. In addition to that we did look at her CT scan from October 2024 demonstrating multiple pulmonary nodules. Largest nodule measuring 9 mm in size. It appears to be stable when compared to previous 1. She will need to have a repeat CAT s can in the fall of 2025. [facility] Medical History Dysphagia Tracheobronchomalacia ROXIE (obstructive sleep apnea) Essential hypertension Atherosclerotic cardiovascular disease Urinary incontinence Obese Dyslipidemia Anxiety and depression Gastric pain Sinusitis Chronic allergic rhinitis Asthma Cough Cough Diabetes mellitus Fibromyalgia Pulmonary nodules Surgical History H/O heart artery stent Hx of esophagogastroduodenoscopy History of bronchoscopy Hx of colonoscopy H/O left knee surgery H/O breast biopsy H/O: hysterectomy Family History Father Hypertension Mother Hypertension Diabetes Daughter Diabetes Brother No problems noted. Social History Household Members: Children Alcohol intake: never Patient Tobacco Use Status: Never used Tobacco Second Hand Smoke Exposure: Yes Review of Systems Const Reports fatigue, Denies fever(s), Denies headache(s), Denies night sweats and Denies weight loss Eyes Denies eye discharge and Denies irritation ENT Reports Normal hearing present, Denies dizziness, Denies headache(s), Reports nasal congestion and Reports post nasal drip Card Denies chest pain, Denies leg edema, Denies dyspnea and Denies dyspnea on exertion Resp Reports chest congestion, Reports cough, Denies dyspnea, Denies dyspnea on exertion and Denies wheezing GI Denies change in bowel habits and Reports heartburn Denies difficulty voiding and Denies dysuria Musc Denies back pain and Denies arthralgias Skin/Breast Denies pruritus, Denies rash and Denies jaundice Neuro Reports Normal hearing present, Denies Abnormal speech present, Denies dizziness, Denies headache(s) and Denies seizure-like activity Psych Denies anxiety, Denies depression and Denies panic attacks Endo Denies cold intolerance, Reports fatigue, Denies flushing and Denies heat intolerance Osman/Lymph Denies easy bleeding and Denies easy bruising Aller/Immun Denies wheezing Physical Exam Vital Signs: Last Vital Signs Pulse 80 02/10/25 11:17 BP 110/50 L 02/10/25 11:17 Pulse Ox 97 02/10/25 11:17 Oxygen Delivery Method Room Air 02/10/25 11:17 BMI result Body Mass Index 30.9 Const General: alert HEENT Mouth: tongue abnormal Neck Neck: Yes normal visual inspection, Yes full ROM and Yes no lymphadenopathy Chest Chest palpation & inspection: normal inspection of the chest Resp Auscultation: no wheezes and diminished lung sounds Cardio Rate: regular rate Rhythm: regular rhythm Heart sounds: S1 normal heart sound present and S2 normal heart sound present GI Palpation (GI): Soft to palpation and nontender Auscultation: normal bowel sounds Skin General skin exam: rashes and/or lesions noted Neuro Cranial nerves: Yes Normal hearing present Speech: No Abnormal speech present Assessment & Plan Assessment & Plan (1) Asthma: Code(s): J45.909 - Unspecified asthma, uncomplicated Category: Medical Qualifiers: Asthma complication type: uncomplicated Asthma persistence: persistent Asthma severity: moderate Qualified Code(s): J45.40 - Moderate persistent asthma, uncomplicated (2) Pulmonary nodules: Code(s): R91.8 - Other nonspecific abnormal finding of lung field Category: Medical (3) ROXIE (obstructive sleep apnea): Code(s): G47.33 - Obstructive sleep apnea (adult) (pediatric) Category: Medical (4) Cough: Code(s): R05 - Cough Category: Medical Qualifiers: Cough type: chronic Qualified Code(s): R05.3 - Chronic cough (5) Chronic allergic rhinitis: Code(s): J30.9 - Allergic rhinitis, unspecified Category: Medical (6) Tracheobronchomalacia: Code(s): J39.8 - Other specified diseases of upper respiratory tract Category: Medical Plan not using APAP, positional therapy, EPWORTH 6 continue CPT with flutter valve twice a day continue Advair HFA add spacer and then rinse with salt water continue Singulair ELAINE/DuoNebs as needed nasal spray Azelastine nasal spray CT chest 10/2025 follow-up fall 2025 Orders: Orders CT chest wo IV con 10/27/25 R91.8 - Other nonspecific abnormal finding of lung field Coding Level of Care Code Est Pt Level 4 (15656) Diagnoses Moderate persistent asthma without complication J45.40 Asthma complication type: uncomplicated Asthma persistence: persistent Asthma severity: moderate Pulmonary nodules R91.8 ROXIE (obstructive sleep apnea) G47.33 Chronic cough R05.3 Cough type: chronic Chronic allergic rhinitis J30.9 Tracheobronchomalacia J39.8 Time Spent (min) 17
[2025-02-10 11:17] VITALS: BP 110/50; PULSE 80; O2SAT 97; BMI 30.9
--- OUTSIDE RECORDS SUMMARY | 2025-02-10 14:42 | XMS_ITS | Encounter Summary ---
Author Organization [employer] Address [address] [facility] [address] [place] [address] Care Team Providers Care Word Processor Technician Name Role Phone Liset Mitchell MD Primary Care Provider Encounter Details Date Type Department Care Team ([facility] Contact Info) Description 02/05/2024 Orders Only [facility] [address] [place] [address] Provider, MD Anne Marie Social History Tobacco [...] Care Team (Late st Contact Info) Description 03/09/2025 3:15 PM EST Office Visit [facility] MED & PEDS [address] [place] [address] Liset Mitchell MD [address] [place] [address] documented as of this encounter Procedures Procedure [...] documented as of this encounter Care Teams Word Processor Technician Relationship Specialty Start Date End Date Liset Mitchell MD [address] [place] [id number] PCP - General Family Medicine 09/14/20 documented as of this encounter
--- OUTSIDE RECORDS SUMMARY | 2025-02-10 14:42 | XMS_ITS | Encounter Summary ---
Author Organization [employer] Address [address] [facility] [address] [place] [address] Care Team Providers Care Embryology Teacher Name Role Phone Liset Mitchell MD Primary Care Provider [phone] Reason for Visit * Reason Onset Date Comments Prior Authorization 05/24/2022 Encounter Details Date Type Department Care Team ([facility] Contact Info) Description 05/24/2022 Telephone [facility] MED & PEDS [address] [place] [address] Liset Mitchell MD [address] [place] [address] Prior Authorization Social History Tobacco Use Types [...] Ivey 05/24/2022 10:47 AM EDT Tc from [facility] with [facility] requesting a PA for medication linaCLOtide (Linzess) 290 MCG capsule . documented in this encounter Plan of Treatment Upcoming Encounters Date Type Department Care Team ([facility] st Contact Info) Description 03/09/2025 3:15 PM EST Office Visit [facility] MED & PEDS [address] [place] [address] Liset Mitchell MD [address] [place] [address] documented as of this encounter Visit Diagnoses Not on filedocumented in this encounter Additional Health Concerns Assessment Noted Time PHQ-9 Depression Total Score: 0 04/13/19 23 10:04 AM EST documented as of this encounter Care Teams Embryology Teacher Relationship Specialty Start Date End Date Liset Mitchell MD [address] [place] [id number] PCP - General Family Medicine 09/14/20 documented as of this encounter
--- OUTSIDE RECORDS SUMMARY | 2025-02-10 14:42 | XMS_ITS | Clinical Summary ---
Author Organization [facility] Address [address] [place] [id number] Phone Care Team Providers Care Psychiatry Physician Name Role Phone Liset Mitchell MD Primary Care Provider [phone] Allergies Active Allergy Reactions Criticality Noted Date Comments Amlodipine 04/29/2024 Ezetimibe 11/04/2021 Other reaction(s): side effects Fluticasone 07/27/2022 Other reaction(s): lip swelling Hydrocodone Nausea And Vomiting 07/27/2022 Ibuprofen 07/27/2022 Other reaction(s): Stomach Upset Lisinopril 05/25/2023 Metformin 07/27/2022 Other reaction(s): stomach pain Mold Extracts 02/07/2021 Oxycodone Nausea And Vomiting 07/27/2022 Sitagliptin 07/27/2022 Other reaction(s): stomach pain Atorvastatin 04/29/2024 Bqwgggo-[id number] Reductase Inhibitors 04/29/2024 Umeclidinium High 07/26/2022 Other [...] this point she is following with her mica plate layer who is trying to get a replacement [...] A1c goals of less than 7%. The [place] [employer] recommends a goal of A1c of 7.5 to 8% in older patients with moderate comorbidities and life expectancy less than 10 years. The [place] [employer] recommends a goal of less [...] informs me that she is going to [place] for the winter months I gave her [...] Team Description 01/20/2025 Refill [facility] [address] [place] [id number] Sunitha Sharp MA from Last 3 Months Family History Medical [...] HEMOGLOBIN A1C 7.1(H) 4.3 - 5.8 % [facility] Blood 06/03/2024 11:1 7 AM EDT 06/03/2024 11:19 AM EDT Richard Dixon DO LAB BLOOD BKR ORDERABLES Final R esult [facility] [address], [place] [id number] * (ABNORMAL) Microalbumin/creatinine ratio, random urine (12/24/2023 10:28 AM EDT) URINE MICROALBUMIN 3.0(H) 0 - 2.3 mg/dL [facility] URINE CREATININE 201 mg/dL FUNCTIONAL ARCHITECT [facility] MICROALB/CRE RATIO 14.9 0 - 20 mg/g Cre [facility] Urine (Urine) 12/24/2023 10: 28 AM EDT 12/24/2023 10:29 AM EDT Richard Dixon [facility] URINE ORDERABLES Final Resul t Performing Organization Address [facility] Co de Phone Number [address] [address] * (ABNORMAL) Lipid panel (12/24/2023 10:12 AM EDT) HDL 56 mg/dL [facility] Comment: Interpretation <40 mg/dL: Low HDL cholesterol (major risk factor for CHD) Greater than or equal to 60 mg/dL: High HDL cholesterol ( negative risk factor for CHD) HDL - cholesterol is affected by a number of factors, e.g. smoking, excerise, hormones, sex and age. CHOLESTEROL 130 0 - 240 mg/dL [facility] TRIGLYCERIDES 103 30 - 160 mg/dL [facility] LDL 53 50 - 129 mg/dL [facility] Comment: LDL levels in terms of risk for coronary heart disease: <100 mg/dL: Optimal 100-129 mg/dL: Near or above optimal 130-159 mg/dL: Borderline high 160-189 mg/dL: High >190 mg/dL: Very High CARDIAC RISK RATIO 2.3(L) 3.3 - 4.4 C [facility] Blood 12/24/2023 10:1 2 AM EDT 12/24/2023 10:19 AM EDT Richard Dixon LAB BLOOD BKR ORDERABLES Final R esult Performing Organization Address City[facility]/ZIP Co de Phone Number [address] [phone] * (ABNORMAL) Basic metabolic panel (06/21/2023 9:57 AM EDT) SODIUM 140 133 - 146 mmol/L [facility] CHLORIDE 104 96 - 108 mmol/L [facility] POTASSIUM 5.0 3.3 - 5.1 mmol/L [facility] CO2 26 21 - 35 mmol/L [facility] BUN 16 6 - 19 mg/dL [facility] CREATININE 0.70 0.5 - 1.5 mg/dL [facility] GLUCOSE 102(H) 70 - 99 mg/dL [facility] CALCIUM 9.9 8.4 - 10.3 mg/dL [facility] EGFR 89 >59 mL/min/1.7 3m2 [facility] Comment:Estimated glomerular filtration rate calculated using the CKD-EPI refit equation. ANION GAP 15 10 - 20 mmol/L [facility] Blood 06/21/2023 9:57 AM EDT 06/21/2023 9:59 AM EDT us Richard Dixon DO LAB BLOOD BKR ORDERABLES Final R esult [address] [phone] from Last 3 Months or Most Recently Relevant to Health Maintenance Insurance [id number] MEDICARE REPLACEMENT [place] [id number] MEDICARE REPLACEMENT MEDICARE REPLACEMENT MEDICARE REPLACEMENT [id number] MEDICARE REPLACEMENT MEDICARE REPLACEMENT MEDICARE REPLACEMENT [id number] MEDICARE REPLACEMENT [facility] MEDICARE REPLACEMENT [place] [id number] Care Teams Psychiatry Physician Relationship Specialty Start Date End Date Liset Mitchell MD [address] [place] [phone] PCP - General Family Medicine 10/12/23 Additional Source Comments The information contained in this document represents components of the legal health record. It is not the complete legal health record.[facility]
--- OUTSIDE RECORDS SUMMARY | 2025-02-10 14:42 | XMS_ITS | Clinical Summary ---
Author Organization [employer] Address [address] [facility] 7 [place] [address] Care Team Providers Care Devulcanizer Head Name Role Phone Liset Mitchell MD Primary Care Provider [phone] Allergies Active Allergy Reactions Criticality Noted Date [...] BEFORE MEALS AND NIGHTLY 11/22/19 22 Active albuterol (Ventolin HFA) 108 (90 [...] (Xylocaine) 2 % solution 07/27/19 23 Active ketotifen (Zaditor) 0.025 % ophthalmic solution ADMINISTER 1 DROP INTO BOTH EYES 2 TIMES DAILY. 10 mL 09/19/19 23 Active Continuous Blood Gluc Party Bus Driver (Lealta MediaStyle Aristides reader) deviceIndication s:Type 2 diabetes mellitus with other circulatory complication, without long-term current use of insulin (HCC) Inject under the skin before breakfast, before lunch, before evening meal, and at bedtime. 1 each 10/26/19 23 Active Myrbetriq 25 MG 24 hr tabletIndication s:Unspecified urinary incontinence TAKE 1 TABLET BY MOUTH EVERY DAY IN THE MORNING 30 tablet 2 12/28/19 23 Active azelastine (Optivar) 0.05 % ophthalmic solution 04/29/19 24 Active loratadine (Claritin) 10 MG tabletIndication s:Seasonal Allergic Rhinitis Take by mouth. Activ e baclofen (Lioresal) 10 MG tabletIndication s:Musculoskeleta l pain Take one tablet TID PRN 30 tablet 11/12/19 24 Active Humidifier miscIndications: Congestion of paranasal sinus [...] 1-2 SPRAYS DAILY NEEDED 11/07/19 24 Active famotidine (Pepcid) 20 MG tablet [...] needed for indigestion or heartburn. 355 mL 06/24/19 Active BD Pen Needle Geetha U/F 32G X 4 MM misc Inject 1 each under the skin in the morning. 90 each 3 06/24/19 25 026 Active Continuous Glucose Sensor (FreeStyle Aristides 2 Sensor) miscIndications: Type 2 diabetes mellitus with other circulatory complication, without long-term current use of insulin (HCC) 1 Units before breakfast, before lunch, before evening meal, and at bedtime. 2 each 06/24/19 Active psyllium (Metamucil Smooth Texture) 58.6 % powderIndication s:Constipation, unspecified constipation type Take 5.12 g (3 g of fiber) by mouth Once per day. Mix in 8 oz of water. 283 g 06/24/19 026 Active Diclofenac Sodium 1 % gelIndications:M usculoskeletal pain APPLY 2 GRAMS TOPICALLY EVERY 6 HOURS 200 g 3 06/25/19 25 Active Insulin Glargine-yfgn 100 UNIT/ML solution pen-injector INJECT 20 UNITS UNDER THE SKIN NIGHTLY AT BEDTIME. 06/06/19 25 Active lubiprostone (Amitiza) 8 MCG capsule Take 1 capsule by mouth 2 times daily. Active sucralfate (Carafate) 1 GM/10ML suspensionIndica tions:Gastroesop hageal reflux disease, unspecified whether esophagitis present TAKE 10 ML BY MOUTH EVERY 8 HOURS 1000 mL 3 07/04/19 25 Active polyethylene glycol, PEG, 3350 (MiraLax) 17 GM/SCOOP powderIndication s:Constipation, unspecified constipation type TAKE 17 G BY MOUTH EVERY MORNING 527 g 3 07/04/19 25 Active omeprazole (PriLOSEC) [address] capsule TAKE 1 CAPSULE BY MOUTH BEFORE BREAKFAST. 90 capsule 1 07/04/19 25 Active melatonin 10 MG tabletIndication s:Insomnia, unspecified type TAKE 1 TABLET BY MOUTH AT BEDTIME NEEDED FOR INSOMNIA 90 tablet 1 07/04/19 25 Active linaCLOtide (Linzess) 145 MCG capsule TAKE 1 CAPSULE BY MOUTH BEFORE BREAKFAST. 30 capsule 11 07/04/19 25 Active fluticasone (Flonase) 50 MCG/ACT nasal sprayIndications :Rhinosinusitis SPRAY 2 SPRAYS INTO EACH NOSTRIL TWICE A DAY 16 g 5 07/04/19 25 Active Mapap 500 MG capsule TAKE 2 CAPSULES ORALLY EVERY 8 HOURS NEEDED FOR FEVER OR PAIN 10/19/19 25 Active gabapentin (Neurontin) 300 MG capsule Take 1 capsule by mouth if needed in the morning and at bedtime for pain. 08/12/19 25 Active clopidogrel (Plavix) 75 MG tablet Take 1 tablet (75 mg) by mouth Once per day. 90 tablet 1 11/08/19 25 Active simethicone (Gas Relief Extra Strength) 125 MG chewable tablet TAKE 1 TABLET BY MOUTH NEEDED AFTER MEALS AND AT BEDTIME FOR GAS 120 tablet 2 12/04/19 25 Active dextran 70-hypromellose (artificial tears) 0.1-0.3 % ophthalmic solution Administer 1 drop into both eyes if needed in the morning, at noon, and at bedtime for dry eyes. 15 mL 01/31/20 25 026 Active carvedilol (Coreg) 6.25 MG tablet Take 1 tablet (6.25 mg) by mouth with breakfast and with evening meal. 60 tablet 2 01/31/20 25 Active felodipine ER (Plendil) 5 MG 24 hr tablet Take 1 tablet (5 mg) by mouth Once per day. Do not crush, chew, or split. 90 tablet 1 01/31/20 25 Active budesonide (Pulmicort) 0.5 MG/2ML nebulizer solution REALIZAR 1 TERAPIA RESPIRATORIA DOS VECEAS AL FREDDIE 025 Discontin ued(Ineff ective) losartan (Cozaar) 50 MG tablet Take 50 mg by mouth Once per day. 025 Discontin ued(Side effects) carvedilol (Coreg) 3.125 MG tabletIndication s:Primary hypertension Take 1 tablet (3.125 mg) by mouth with breakfast and with evening meal. 60 tablet 5 12/09/19 25 025 Discontin ued(Thera py completed ) Active Problems Problem Noted Date Diagnosed Date Arthritis of left knee 01/30/2025 Lumbar radiculopathy, right 08/08/2024 Abdominal bloating 10/26/2023 [...] if negative side effects begin. F/u with Transportation Equipment Painter for review of heart medication. Labs: Rapid Covid-19, Sars CoV-2 RNA Assessment & Plan (08/28/2022 1:02 PM EDT): Likely associated with asthma and postnasal drip. Will switch cetirizine to lisa, given antitussive medication. Recommended compliance with medications. F/up if symptoms persistent. Normal lung exam Raised TSH level 01/15/2018 Neck pain on left side 12/18/2017 Chronic systolic heart failure 10/17/2017 Assessment & Plan (07/18/2023 2:27 PM EDT): Patient complains of joint pain, lower extremity swelling associated with carvedilol, upon review she also had complains with metoprolol, risk vs benefit discussed, swill switch to bisoprolol, told her to talk with her reading specialist as she has hx of CAD. Assessment & Plan (05/26/2023 2:25 PM EDT): At this time patient is fine with no concerns. Continue same treatment plan. Assessment & Plan (10/25/2022 12:13 PM EDT): Patient requested further opinion pertaining to CABG Mild intermittent asthma 07/06/2017 Abdominal pain 04/20/2017 Osteoarthritis of knee 03/16/2017 Sensorineural [...] exacerbation of chroni c obstructive airways disease ([facility]) 07/19/2018 10/25/2022 Type 2 diabetes mellitus 03/18/2015 [...] Encounters Date Type Department Care Team Description 01/30/2025 3:30 PM EST Office Visit [facility] [address] [place] [address] Liset Mitchell MD Type 2 diabetes mellitus with microalbuminuria, with long-term current use of insulin (HCC) (Primary Dx); Arthritis of left knee; Allergic conjunctivitis of both eyes 01/30/2025 Travel 01/30/2025 Telephone [facility] [address] [place] [address] Liset Mitchell MD chart prep 01/29/[address] [address] Liset Mitchell MD Nurse Triage 01/20/[address] [address] Liset Mitchell MD Nurse Triage 12/22/2024 Telephone [facility] [address] [place] [address] Liset Mitchell MD appt request 12/22/[address] [address] Liset Mitchell MD triage 12/20/2024 Orders Only GENERIC EXTERNAL DATA DEPARTMENT Provider, Generic External Data 12/19/[address] [address] Liset Mitchell MD triage 12/18/2024 Telephone [facility] [address] [place] [address] Liset Mitchell MD Nurse Triage 12/08/2024 Telephone [facility] MEDIC[facility] [address] [facility] [place] [address] Liset Mitchell MD Med Refill 12/02/2024 Refill [facility] [address] [place], [place] [phone] Liset Mitchell MD 11/20/2024 Orders Only [facility] External Provider, [facility] from Last 3 Months Immunizations Immunization Administration [...] Sign Reading Time Taken Comments Blood Pressure 160/70 01/30/2025 2:01 PM EST Pulse 62 01/30/2025 2:01 PM EST Temperature 36.3 C (97.4 F) 01/30/2025 2:01 PM EST Respiratory Rate 20 01/30/2025 2:01 PM EST Oxygen Saturation 97% 01/30/2025 2:01 PM EST Inhaled Oxygen Concentration - - Weight 62.1 kg (136 lb 12.8 oz) 01/30/2025 2:01 PM EST Height 144.8 cm (4' 9 ) 01/30/2025 2:01 PM EST Body Mass Index 29.6 01/30/2025 2:01 PM EST Plan of Treatment Upcoming Encounters Date Type Department Care Team ([facility] st Contact Info) Description 03/09/2025 3:15 PM EST Office Visit [facility] [address] [place] [address] Liset Mtichell MD [address] [place] [address] Health Maintenance Due Date Last Done Comments Diabetes: Foot Exam 12/07/1955 Eye Exam 12/07/1955 Zoster Vaccines (2 of 3) 05/27/2014 04/01/2014, 05/2014 RSV Patients and Patients Aged 60 years or older (1 - 1-dose 75+ series) 2020 COVID-19 Vaccine ( - 2024- season) 2024 02/02/2021, 07/15/2020, 06/24/2020 Influenza Vaccine (#1) 2024 9, 01/09/2018, 04/06/2017, Additional history exists Alcohol/Substance Use Screening 02/28/2025 02/29/2024 Depression Screening 02/28/2025 02/29/2024, 02/28/19 25 SDOH Screening 02/28/2025 02/29/2024 Diabetes: Hemoglobin A1C 04/30/2025 025, 11/07/2024, 06/03/2024, Additional history exists Lipid Panel 08/08/2025 08/08/2024, 09/26, 05/16/2022, Additional history exists Tobacco Screening 01/30/2026 01/30/2025 DTaP/Tdap/Td Vaccines (4 - Td or Tdap) [...] Care Plan Weekly blood pressure task No Abril López Weekly blood pressure task Care Plan Weekly blood pressure task No Abril López Patient has chronic kidney disease Care Plan Patient has chronic kidney disease No Abril López Patient has chronic kidney disease Care Plan Patient has chronic kidney disease No Abril López Weekly blood pressure task Care Plan Weekly blood pressure task No Yee Pickens [place] Weekly blood pressure task Care Plan Weekly blood pressure task No Yee Pickens [place] Patient has chronic kidney disease Care Plan Patient has chronic kidney disease No Yee Pickens [place] Patient has chronic kidney disease Care Plan Patient has chronic kidney disease No Yee Pickens [place] Weekly blood pressure task Care Plan Weekly blood pressure task No Yee Pickens [place] Weekly blood pressure task Care Plan Weekly blood pressure task No Yee Pickens [place] Patient has chronic kidney disease Care Plan Patient has chronic kidney disease No Yee Pickens [place] Patient has chronic kidney disease Care Plan Patient has chronic kidney disease No Yee Pickens [place] Procedures Procedure Name Priority Date/Time Associated Diagnosis Comments POCT GLYCATED HEMOGLOBIN, TOTAL Routine 01/30/2025 3:13 PM EST Type 2 diabetes mellitus with microalbuminuria, with long-term current use of insulin (HCC) POCT GLUCOSE Routine 01/30/2025 3:13 PM EST Type 2 diabetes mellitus with microalbuminuria, with long-term current use of insulin ([facility]) CT ABDOMEN PELVIS W CONTRAST Routine 12/21/2024 12:07 AM EDT URINALYSIS, COMPLETE, WITH REFLEX TO CULTURE Routine 12/20/2024 11:27 PM EDT CULTURE, URINE, ROUTINE Routine 12/20/2024 11:27 PM EDT GLUCOSE, WHOLE BLOOD Routine 12/20/2024 11:[address] CHEST WO CONTRAST Routine 11/21/2024 12:58 PM EDT HEPATITIS C AB W/REFL TO HCV RNA, QN, PCR Routine 08/08/2024 12:30 PM EDT Encounter for health-related screening LIPID PANEL, STANDARD Routine 08/08/2024 10:30 AM EDT Type 2 diabetes mellitus with microalbuminuria, with long-term current use of insulin (CMS/HCC) from Last 3 Months or Most Recently Relevant to Health Maintenance Results * (ABNORMAL) POCT Hgb A1c (01/30/2025 3:13 PM EST) Hemoglobin A1C 7.3(A) 4.0 - 5.7 % QC Media Lot # [id number] Lot# Expiration Date Blood 01/30/2025 3:13 PM EST Liset Mitchell MD POINT OF CARE TEST ENTER/EDIT ORDERABLES Final Result * POCT Glucose (01/30/2025 3:13 PM EST) Glucose Blood, POC 153 60 - 200 mg/dL QC Media Lot # [id number] Lot# Expiration Date 474,[id number] Blood Capillary blood specimen / Unknown 01/30/2025 3:13 PM EST Liset Mitchell MD POINT OF CARE TEST ENTER/EDIT ORDERABLES Final Result * CT Abdomen Pelvis w/ Contrast (12/21/2024 12:07 AM EDT) Anatomical Region Laterality Modality Body, Pelvis, Abdomen Computed T omography 12/21/2024 12:0 7 AM EDT Narrative 12/21/2024 12:09 AM EDT [place] [address] CT Scan Report Signed Patient: Natali Santos MR#: [id number] 4 : 1945 Acct:[id number] Age/Sex: 79 / F ADM Date: 12/20/24 Loc: HO.ED Attending Dr: Ordering Physician: Chelo Ortega MD Date of Service: 12/20/24 Procedure(s): CT abdomen pelvis w IV con Accession Number(s): [id number] cc: Chelo Ortega MD; Liset Mitchell MD Report Number: [id number]: Total DLP = 486.00 mGy-cm Reason for [...] MD in OV> 12/21/247 DD/ TD/TT: 12/21/246 Hospitality Internship: Procedure Note Donotuseinterpreter, Image - 12/21/[address] [address] [address] Scan Report Signed Patient: Natali Santos GMR#: [id number] 4 : 1945cct:[id number] Age/Sex: 79 / FADM Date: 12/20/24 Loc: HO.ED Attending Dr: Ordering Physician: Chelo Ortega MD Date of Service: 12/20/24 Procedure(s): CT abdomen pelvis w IV con Accession Number(s): [id number] cc: Chelo Ortega MD; Liset Mitchell MD Report Number: [id number]: Total DLP = 486.00 mGy-cm Reason for [...] MD in OV> 12/21/247 DD/ TD/TT: 12/21/246 Hospitality Internship: [facility] External Provider IMG CT PROCEDURES Final Result * (ABNORMAL) Urinalysis, Complete, with Reflex to Culture (12/20/2024 11:27 PM EDT) Color Urine Yellow [facility] Appearance Urine Clear [facility] PH 5.5 5.0 - 9.0 [facility] Glucose Urine UA Negative Negative mg/dL [facility] Urine Blood Negative Negative [facility] Specific [place] - Urine >=1.030(H) 1.005 - 1.025 [facility] Urine Protein Negative Neg-Trace mg/dL [facility] Urine Ketones Negative Negative mg/dL [facility] Nitrite Urine Negative Negative [facility] Leukocyte Esterase Urine Small (1+)(A) Negative [facility] RBC Urine 0-2 0 - 2 /HPF [facility] Urine WBC 21-50(A) 0 - 5 /HPF [facility] Urine Squamous Epithelial Cell 6-10 0 - 2 /HPF [facility] Urine Bacteria Trace None Seen [facility] Hyaline Casts, Urine 0-2 0 - 2 /LPF [facility] 12/20/2024 11:2 7 PM EDT 12/20/2024 11:31 PM EDT Narrative [facility] - 12/20/2024 11:39 PM EDT [id number], Clean Catch Generic External Data Provider LAB URINE ORDERAB LES Final Result [facility] [address] [place] [phone] * Culture, Urine, Routine (12/20/2024 11:27 PM EDT) Urine Urine specimen obtained by clean catch procedure / Unknown 12/20/2024 11:27 PM EDT 12/20/2024 11:39 PM EDT Comment:UACC Narrative [facility] - 12/22/2024 11:58 AM EDT Urine Culture Report Result Urine Culture 10,000 to 50,000 cfu/ml Urine Culture Mixed bacterial ty characteristic of Urine Culture urogenital contamination. Specimen Source: Urine clean catch Generic External Data Provider LAB MICROBIOLOGY - GENERAL ORDERABLES Final Result Performing Organization Address [facility] Phone Number [facility] [address] [place] [phone] * (ABNORMAL) Glucose, Whole Blood (12/20/2024 11:14 PM EDT) Glucose, Whole Blood 157(H) 60 - 115 mg/dL [facility] Comment:METER #: [id number] 12/20/2024 11:1 4 PM EDT 12/20/2024 11:18 PM EDT Generic External Data Provider LAB BLOOD ORDERAB LES Final Result Performing Organization Address [facility] de Phone Number [facility] [address] [place] [phone] * CT Chest w/o Contrast (11/21/2024 12:58 PM EDT) Anatomical Region Laterality Modality Body, Chest Computed Tomogra phy 11/21/2024 12:5 8 PM EDT Narrative 11/21/2024 12:59 PM EDT [address] [address] [address] Scan Report Signed Patient: Natali Santos MR#: [id number] 4 : 1945 Acct:[id number] Age/Sex: 78 / F ADM Date: 11/20/24 Loc: HO.CT Attending Dr: Reji Wilks MD Ordering Physician: Reji Wilks MD Date of Service: 11/20/24 Procedure(s): CT chest wo IV con Accession Number(s): [id number] cc: Reji Wilks MD; Liset Mitchell MD Report Number: [id number]: Total DLP = 123.00 mGy-cm Reason for [...] MD on 11/21/2024 12:58:15 Dictated By: Richard Folres MD Signed By: <Electronically signed by Richard Flores MD in OV> 11/21/24 1259 DD/ 1258 TD/TT: 11/21/24 1258 Hospitality Internship: Procedure Note Donotuseinterpreter, Image - 11/21/[address] [place] [address] [address] Scan Report Signed Patient: Natali Santos GMR#: [id number] 4 : 6Acct:[id number] Age/Sex: 78 / FADM Date: 11/20/24 Loc: HO.CT Attending Dr: Reji Wilks MD Ordering Physician: Reji Wilks MD Date of Service: 11/20/24 Procedure(s): CT chest wo IV con Accession Number(s): [id number] cc: Reji Wilks MD; Liset Mitchell MD Report Number: [id number]: Total DLP = 123.00 mGy-cm Reason for [...] 11/21/24 1259 DD/ 1258 TD/TT: 11/21/24 1258 Hospitality Internship: [facility] External Provider IMG CT PROCEDURES Final Result * Hepatitis C Antibody with Reflex to HCV, RNA, Quantitative, Real-Time PCR (08/08/2024 12:30 PM EDT) Hepatitis C Antibody Nonreactive Nonreactive [facility] Comment:Antibodies to HCV no t detected; does not exclude early acuteHCV infection. Blood Venous blood specimen / Unknown 08/08/2024 12:30 PM EDT 08/08/2024 2:02 PM EDT Liset Mitchell MD LAB BLOOD ORDERABLES Final Re sult [facility] [address] [place] [phone] * (ABNORMAL) Lipid Panel, Standard (08/08/2024 10:30 AM EDT) Triglycerides 150(H) <150 mg/dL [facility] Comment:Desirable Triglyceri de: less than 150 mg/dLBorderline High Triglyceride 150-199 mg/dLHigh Triglyceride: 200-499 mg/dLVery High Triglyceride: greater than or equal to 5OO mg/dL Cholesterol 239(H) <200 mg/dL [facility] Comment:Desirable Cholestero l: less than 200 mg/dLBorderline High Cholesterol: 200-239 mg/dLHigh Cholesterol: greater than 239 mg/dL LDL Cholesterol Calculated 165(H) <100 mg/dL [facility] Comment:Desirable LDL: less than 100 mg/dLNear Optimal/Above Optimal LDL: 110- 129 mg/dLBorderline High LDL: 130-159 mg/dLHigh LDL: 160-189 mg/dLVery High LDL: greater than or equal to 190 mg/dL HDL Cholesterol 44 >40 mg/dL [facility] Comment:Desirable HDL: great er than 40 mg/dL Note: This HDL assay may give artificially low results in patients with liver disease. Blood Venous blood specimen / Unknown 08/08/2024 10:30 AM EDT 08/08/2024 2:05 PM EDT us Liset Mitchell MD LAB BLOOD ORDERABLES Final Re sult [facility] [address] [place] [phone] from Last 3 Months or Most [...] 01/29/2025 Patient has chronic kidney disease 01/29/2025 Weekly blood pressure task 01/30/2025 Weekly blood pressure task 01/30/2025 Patient has chronic kidney disease 01/30/2025 Patient has chronic kidney disease 01/30/2025 Weekly blood pressure task 01/30/2025 Weekly blood pressure task 01/30/2025 Patient has chronic kidney disease 01/30/2025 Patient has chronic kidney disease 01/30/2025 Insurance [facility] [employer] (HMO D-SNP) [place] [id number] Care Teams Devulcanizer Head Relationship Specialty Start Date End Date Liset Mitchell MD [address] [place], [place] [phone] PCP - General Family Medicine 09/14/20
--- OUTSIDE RECORDS SUMMARY | 2025-02-10 14:42 | XMS_ITS | Encounter Summary ---
Author Organization [employer] Address [address] [facility] [address] [place] [address] Care Team Providers Care Atg Java Developer Name Role Phone Liset Mitchell MD Primary Care Provider [phone] Reason for Visit * Reason Onset Date Comments Nurse Triage 05/21/2024 Encounter Details Date Type Department Care Team ([facility] st Contact Info) Description 05/21/2024 Telephone [facility] [address] [place], [place] [phone] Liset Mitchell MD [address] [place] [address] Nurse Triage Social History Tobacco Use Types [...] CENTER Nurse Jaye advised that company providing CLIENT SERVER PROGRAMMER services is responsible for CLIENT SERVER PROGRAMMER replacement andhours. Unsure who provides those services at this time.. [facility] Nurse to follow as indicated. * Telephone Encounter - sEperanza Linares LPN - 05/23/2024 11:28 AM EDT [...] requesting a call back in regards to CLIENT SERVER PROGRAMMER hours and medical assistance. She reports her CLIENT SERVER PROGRAMMER is sick, and needs someone in the interim to help with her daily needs She would also like more CLIENT SERVER PROGRAMMER hours. Please reach out to patient at your earliest convenience. I have two numbers for patients: [phone] * Telephone Encounter - Esperanza Linares LPN - 05/21/2024 2:44 PM EDT Please obtain [facility] ED note from 05/20/24 * Telephone Encounter - Esperanza Linares LPN - 05/21/2024 2:17 PM EDT Triage call to listed number no answer at time of call. Message left to return call to [phone]. Second call placed with Mary Lou Hurst [phone]. Patient confirms she was seen in ED [...] Triage Question: * Patient wants doctor (or CARTRIDGE LOADING OPERATOR/PA) to measure BP * All higher-acuity triage [...] ED visit on : Date: 05/20/24 Hospital: [facility] Seen for: high blood pressure Symptomatic: no but is currently experiencing urination symptoms *if yes message should go to Triage Patient advised will forward to team nurse for follow up documented in this encounter Plan of Treatment Upcoming Encounters Date Type Department Care Team (Late st Contact Info) Description 03/09/2025 3:15 PM EST Office Visit [facility] [address] [place] [address] Liset Mitchell MD [address] [place] [address] documented as of this encounter Visit Diagnoses Not on filedocumented in this encounter Additional Health Concerns Assessment Noted Time PHQ-9 Depression Total Score: 4 02/28/19 25 9:06 AM EST documented as of this encounter Care Teams Atg Java Developer Relationship Specialty Start Date End Date Liset Mitchell MD [address] [place] [address] PCP - General Family Medicine 09/14/20 documented as of this encounter
--- OUTSIDE RECORDS SUMMARY | 2025-02-10 14:42 | XMS_ITS | Encounter Summary ---
Author Organization [employer] Address [address] [place] [address] Care Team Providers Care Tool Machine Shop Supervisor Name Role Phone Liset Mitchell MD Primary Care Provider [phone] Encounter Details Date Type Department Care Team (Late st Contact Info) Description 06/27/2024 Orders Only [facility] [address] [place] [address] Provider, MD Anne Marie Social History Tobacco [...] Description 03/09/2025 3:15 PM EST Office Visit [facility] [address] [place] [address] Liset Mitchell MD [address] [place] [address] documented as of this encounter Procedures Procedure [...] documented as of this encounter Care Teams Tool Machine Shop Supervisor Relationship Specialty Start Date End Date Liset Mitchell MD [address] [place] [address] PCP - General Family Medicine 09/14/20 documented as of this encounter
--- OUTSIDE RECORDS SUMMARY | 2025-02-10 14:42 | XMS_ITS | Encounter Summary ---
Author Organization [employer] Address [address] [facility] 7t [place] [address] Care Team Providers Care Muffle Operator Name Role Phone Liset Mitchell MD Primary Care Provider [phone] Encounter Details Date Type Department Care Team ([facility] Contact Info) Description 01/30/2024 Orders Only [facility] [address] [place] [address] Provider, MD Anne Marie Social [...] Description 03/09/2025 3:15 PM EST Office Visit [facility] MED & PEDS [address] [place] [address] Liset Mitchell MD [address] [place] [address] documented as of this encounter Procedures Procedure [...] documented as of this encounter Care Teams Muffle Operator Relationship Specialty Start Date End Date Liset Mitchell MD 230 [place] [address] PCP - General Family Medicine 09/14/20 documented as of this encounter
--- OUTSIDE RECORDS SUMMARY | 2025-02-10 14:42 | XMS_ITS | Encounter Summary ---
Author Organization [employer] Address [address] [facility] [address] 7t [place] [address] Care Team Providers Care Propagation Manager Name Role Phone Liset Mitchell MD Primary Care Provider [phone] Reason for Visit * Reason Onset Date Comments FYI 08/07/2024 Encounter Details Date Type Department Care Team ([facility] st Contact Info) Description 08/07/2024 Telephone [facility] MEDICINE 230 [place], [place] [phone] Liset Mitchell MD 505 [place], [place] [phone] FYI Social History Tobacco Use Types Packs/Day [...] 2:30 PM EDT Tc from [facility] with [facility] wanting to leave an FYI with pcp for upcoming visit tomorrow. Pt has: Declined Psychiatrist Refused to take her cetrezine despite feelign symptoms of depression PLUG PASTER quit She was to start cholesterol injection but was never able to Pt has also been put on hold for cardiac rehab and would like pcp to follow up with pt tomorrow regarding concerns above. If any questions you can contact Leda at [phone] ext [phone]. documented in this encounter Plan of Treatment Upcoming Encounters Date Type Department Care Team (Late st Contact Info) Description 03/09/2025 3:15 PM EST Office Visit [facility] MED & PEDS 505 [place] [address] Liset Mitchell MD 505 [place] [address] documented as of this encounter Visit Diagnoses Not on filedocumented in this encounter Additional Health Concerns Assessment Noted Time PHQ-9 Depression Total Score: 4 02/28/19 25 9:06 AM EST documented as of this encounter Care Teams Propagation Manager Relationship Specialty Start Date End Date Liset Mitchell MD 230 [place] [address] PCP - General Family Medicine 09/14/20 documented as of this encounter
--- OUTSIDE RECORDS SUMMARY | 2025-02-10 14:42 | XMS_ITS | Encounter Summary ---
Author Organization [employer] Address [address] [facility] [address] 7t [place] [address] Care Team Providers Care Alteration Worker Name Role Phone Liset Mitchell MD Primary Care Provider [phone] Reason for Visit * Reason Onset Date Comments Medication Question 07/04/2024 Encounter Details Date Type Department Care Team ([facility] st Contact Info) Description 07/04/2024 Telephone [facility] MEDICINE 230 [place], [place] [phone] Liset Mitchell MD [address] [place], [place] [phone] Medication Question Social History Tobacco Use Types [...] - 07/04/2024 12:05 PM EDT Tc from [facility] with [facility] requesting script from all active medication. To be sent to: [facility] - JEANIE Pandya - [address] [place] [address] documented in this encounter Plan of Treatment Upcoming Encounters Date Type Department Care Team (Late st Contact Info) Description 03/09/2025 3:15 PM EST Office Visit [facility] MED & PEDS 505 [place] [address] Liset Mitchell MD 505 [place] [address] documented as of this encounter Visit Diagnoses Not on filedocumented in this encounter Additional Health Concerns Assessment Noted Time PHQ-9 Depression Total Score: 4 02/28/19 25 9:06 AM EST documented as of this encounter Care Teams Alteration Worker Relationship Specialty Start Date End Date Liset Mitchell MD 230 [place] [address] PCP - General Family Medicine 09/14/20 documented as of this encounter
--- OUTSIDE RECORDS SUMMARY | 2025-02-10 14:42 | XMS_ITS | Encounter Summary ---
Author Organization [employer] Address [address] [facility] [address] 7t [place] [address] Care Team Providers Care Industrial Hygienist Name Role Phone Liset Mitchell MD Primary Care Provider [phone] Encounter Details Date Type Department Care Team ([facility] st Contact Info) Description 07/02/[address] [facility] MEDICINE 230 [place], [place] [phone] Liset Mitchell MD 505 [place] [address] Social History Tobacco Use Types Packs/Day Years [...] Description 03/09/2025 3:15 PM EST Office Visit [facility] MED & PEDS 505 [place] [address] Liset Mitchell MD 505 [place] [address] documented as of this encounter Visit Diagnoses Not on filedocumented in this encounter Additional Health Concerns Assessment Noted Time PHQ-9 Depression Total Score: 4 02/28/19 25 9:06 AM EST documented as of this encounter Care Teams Industrial Hygienist Relationship Specialty Start Date End Date Liset Mitchell MD [address] [place] [address] PCP - General Family Medicine 09/14/20 documented as of this encounter
--- OUTSIDE RECORDS SUMMARY | 2025-02-10 14:43 | XMS_ITS | Encounter Summary ---
Author Organization [employer] Address [address] [facility] [address] 7t [place] [address] Care Team Providers Care Fire Control Technician G Name Role Phone Liset Mitchell MD Primary Care Provider [phone] Reason for Visit * Reason Comments Med Refill Encounter Details Date Type Department Care Team ([facility] Contact Info) Description 08/14/2024 Refill [facility] MEDICINE 230 [place], [place] [phone] Liset Mitchell MD 505 [place], [place] [phone] Social History Tobacco Use Types Packs/Day Years [...] Description 03/09/2025 3:15 PM EST Office Visit [facility] MED & PEDS 505 [place] [address] Liset Mitchell MD 505 [place] [address] documented as of this encounter Visit Diagnoses Not on filedocumented in this encounter Additional Health Concerns Assessment Noted Time PHQ-9 Depression Total Score: 4 02/28/19 25 9:06 AM EST documented as of this encounter Care Teams Fire Control Technician G Relationship Specialty Start Date End Date Liset Mitchell MD [address] [place] [address] PCP - General Family Medicine 09/14/20 documented as of this encounter
--- OUTSIDE RECORDS SUMMARY | 2025-02-10 14:43 | XMS_ITS | Encounter Summary ---
Author Organization [employer] Address 75 [facility] 7t [place] [address] Care Team Providers Care Neuropsychology Director Name Role Phone Liset Mitchell MD Primary Care Provider [phone] Reason for Visit * Reason Comments Med Change Request Encounter Details Date Type Department Care Team ([facility] Contact Info) Description 10/26/[address] [facility] MED & PEDS 505 [place], [place] [phone] Liset Mitchell MD 505 [place], [place] [phone] Social History Tobacco Use Types Packs/Day Years [...] 3:15 PM EST Office Visit [facility] MED & PEDS 505 [place] [address] Liset Mitchell MD 505 [place] [address] documented as of this encounter Visit Diagnoses Not on filedocumented in this encounter Additional Health Concerns Assessment Noted Time PHQ-9 Depression Total Score: 0 04/13/19 23 10:04 AM EST documented as of this encounter Care Teams Neuropsychology Director Relationship Specialty Start Date End Date Liset Mitchell MD 230 [place] [address] PCP - General Family Medicine 09/14/20 documented as of this encounter
--- OUTSIDE RECORDS SUMMARY | 2025-02-10 14:43 | XMS_ITS | Encounter Summary ---
Author Organization [employer] Address [address] [facility] 7t [place] [address] Care Team Providers Care Furnace Converter Name Role Phone Liset Mitchell MD Primary Care Provider Reason for Visit * Reason Onset Date Comments ER Follow-up 05/15/2023 Encounter Details Date Type Department Care Team ([facility] st Contact Info) Description 05/15/2023 Telephone [facility] MEDICINE 230 [place], [place] [phone] Liset Mitchell MD [address] [place] [phone] ER Follow-up Social History Tobacco Use Types [...] answer. LM to call us back in Panamanian. Routing back to [facility] nurses. * Telephone Encounter - Sammy Hall - 05/15/2023 4:01 PM EDT Tc from pt returning phone call. * Telephone Encounter - Julieta Montalvo RN - 05/15/2023 3:29 PM EDT TC placed to patient x 2 regarding ED visit below via [employer] and without senior bi developer line. Patient has extended f/u with PCP on 05/25/23. Noted in appointment about recent ED visit for R shoulder pain/dislocation. LM for patient in Panamanian that we are calling to check in and hope she is feeling better, remindingof upcoming appointment with PCP on 05/25/23 @ 11:15 and asking her to call us if she needs anythingprior to this appointment or needs a sooner appointment. Routing to PCP so she is aware. Patient calling to report ED visit on : Date: 05/13 Hospital: [facility] Seen for: Extremity Injury, Upper shoulder pain while taking x-rays Patient advised will forward to team nurse for follow up * Telephone Encounter - Daniel Franklin - 05/15/2023 11:06 AM EDT Patient calling to report ED visit on : Date: 05/13 Hospital: [facility] Seen for: Extremity Injury, Upper shoulder pain while taking x-rays Patient advised will forward to team nurse for follow up documented in this encounter Plan of Treatment Upcoming Encounters Date Type Department Care Team (Late st Contact Info) Description 03/09/2025 3:15 PM EST Office Visit [facility] MED & PEDS 505 [place] [address] Liset Mitchell MD 505 [place] [address] documented as of this encounter Visit Diagnoses Not on filedocumented in this encounter Additional Health Concerns Assessment Noted Time PHQ-9 Depression Total Score: 0 04/13/19 23 10:04 AM EST documented as of this encounter Care Teams Furnace Converter Relationship Specialty Start Date End Date Liset Mitchell MD 230 [place] [address] PCP - General Family Medicine 09/14/20 documented as of this encounter
--- OUTSIDE RECORDS SUMMARY | 2025-02-10 14:43 | XMS_ITS | Encounter Summary ---
Author Organization [facility] Address [address] [place] [address] [place] [address] Phone Care Team Providers Care Archives Technician Name Role Phone Liset Mitchell MD Primary Care Provider [phone] Encounter Details Date Type Department Care Team ([facility] st Contact Info) Description 10/09/2024 Telephone [facility] [address] [place] [address] Richard Dixon, DO [address] [place] [phone] [email or web address] Social History Tobacco Use Types Packs/Day Years [...] on filedocumented in this encounter Care Teams Archives Technician Relationship Specialty Start Date End Date Liset Mitchell MD 230 [place] [address] PCP - General Family Medicine 10/12/23 documented as of this encounter Additional Source Comments The information contained in this document represents components of the legal health record. It is not the complete legal health record.[facility]
--- OUTSIDE RECORDS SUMMARY | 2025-02-10 14:43 | XMS_ITS | Encounter Summary ---
Author Organization [employer] Address [address] [facility] 7t [place] [address] Care Team Providers Care Customer Service Associate Name Role Phone Liset Mitchell MD Primary Care Provider [phone] Reason for Visit * Reason Onset Date Comments Triage 07/07/2022 Encounter Details Date Type Department Care Team ([facility] st Contact Info) Description 07/07/2022 Telephone C [facility] MED [facility] PEDS 505 [place], [place] [phone] Liset Mitchell MD 505 [place] [address] Triage Social History Tobacco Use Types Packs/Day [...] pt has upcomign appt on 08/03/22 with oracle analyst. Pt confirmed that new discharge meds are [...] notes. Please note pt found under Natali Cortse not Natali Santos. Pt states tried to [...] No answer LVM to return call to [facility] triage line. Protocol Used: No [...] The caller accepted this outcome Patient speaks sri lankan. documented in this encounter Plan of Treatment Upcoming Encounters Date Type Department Care Team ([facility] st Contact Info) Description 03/09/2025 3:15 PM EST Office Visit [facility] MED & PEDS 505 [place] [address] Liset Mitchell MD [address] [place] [address] documented as of this encounter Visit Diagnoses Not on filedocumented in this encounter Additional Health Concerns Assessment Noted Time PHQ-9 Depression Total Score: 0 04/13/19 23 10:04 AM EST documented as of this encounter Care Teams Customer Service Associate Relationship Specialty Start Date End Date Liset Mitchell MD [address] [place] [address] PCP - General Family Medicine 09/14/20 documented as of this encounter
--- OUTSIDE RECORDS SUMMARY | 2025-02-10 14:43 | XMS_ITS | Clinical Summary ---
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 73m2 LAB CHEMISTRY METHOD 06/25/2024 7:24 PM EDT [facility] Comment:Calculation based on the Chronic Kidney Disease Epidemiology Collaboration (CKD-EPI) equation refit without adjustment for race. BUN/Creatinine Ratio 35.9 LAB CHEMISTRY METHOD 06/25/2024 7:24 PM EDT [facility] Calcium 9.6 8.5 - 10.5 mg/dL LAB CHEMISTRY METHOD 06/25/2024 7:24 PM EDT [facility] Blood Venous blood specimen / Unknown Venipuncture / Unknown 06/25/2024 6:34 PM EDT 06/25/2024 6:45 PM EDT us Lucho Chappell MD LAB BLOOD ORDERABLES Final Resu lt [facility] [address] [place] [address], from Last 3 Months or Most Recently Relevant to Health Maintenance Insurance [facility] Member Subscriber Plan / Payer (Ef fective 2012-Present) Name:Natali Bower Relation to Subscriber:Self Name:Natali Bower Payer ID:[id number] Group ID:[id number] Type:Not on file Address: [facility] [place] [address] Care Teams Nurse Wound Relationship Specialty Start Date End Date Liset Mitchell MD [address] [place] [phone] PCP - General 08/09/21
--- OUTSIDE RECORDS SUMMARY | 2025-02-10 14:43 | XMS_ITS | Encounter Summary ---
Author Organization [employer] Address [address] [facility] [address] 7t [place] [address] Care Team Providers Care It Operations Analyst Name Role Phone Liset Mitchell MD Primary Care Provider [phone] Reason for Visit * Reason Onset Date Comments Medication Question 08/13/2024 Encounter Details Date Type Department Care Team ([facility] st Contact Info) Description 08/13/2024 Telephone [facility] MEDICINE 230 [place], [place] [phone] Liset Mitchell MD 505 [place], [place] [phone] Medication Question Social History Tobacco Use Types [...] - 08/13/2024 12:03 PM EDT Tc from [facility] stating pt is [facility] on [address] and thy're requesting LORazepam (Ativan) 0.5 MG tablet to be sent. documented in this encounter Plan of Treatment Upcoming Encounters Date Type Department Care Team ([facility] st Contact Info) Description 03/09/2025 3:15 PM EST Office Visit [facility]C MED & PEDS [address] [place] [address] Liset Mitchell MD [address] [place] [address] documented as of this encounter Visit Diagnoses Not on filedocumented in this encounter Additional Health Concerns Assessment Noted Time PHQ-9 Depression Total Score: 4 02/28/19 25 9:06 AM EST documented as of this encounter Care Teams It Operations Analyst Relationship Specialty Start Date End Date Liset Mitchell MD [address] [place] [address] PCP - General Family Medicine 09/14/20 documented as of this encounter
--- OUTSIDE RECORDS SUMMARY | 2025-02-10 14:43 | XMS_ITS | Encounter Summary ---
Author Organization [employer] Address [address] [facility] [address] 7t [place] [address] Care Team Providers Care Paste Mixer Liquid Name Role Phone Liset Mitchell MD Primary Care Provider [phone] Reason for Visit * Reason Onset Date Comments Results 10/11/2023 Appointment Request 10/11/2023 Encounter Details Date Type Department Care Team ([facility] Contact Info) Description 10/11/2023 Telephone [facility] MEDICINE 230 [place], [place] [phone] Liset Mitchell MD [address] [place] [address] [phone] Results; Appointment Request Social History Tobacco Use [...] a appt in regards to getting a CHILD WELFARE SOCIAL WORKER states is in need documented in this encounter Plan of Treatment Upcoming Encounters Date Type Department Care Team (Late st Contact Info) Description 03/09/2025 3:15 PM EST Office Visit [facility] MED & PEDS 505 [place] [address] Liset Mitchell MD 505 [place] [address] documented as of this encounter Visit Diagnoses Not on filedocumented in this encounter Additional Health Concerns Assessment Noted Time PHQ-9 Depression Total Score: 0 04/13/19 23 10:04 AM EST documented as of this encounter Care Teams Paste Mixer Liquid Relationship Specialty Start Date End Date Liset Mitchell MD [address] [place] [address] PCP - General Family Medicine 09/14/20 documented as of this encounter
--- OUTSIDE RECORDS SUMMARY | 2025-02-10 14:43 | XMS_ITS | Encounter Summary ---
Author Organization [employer] Address 75 [facility] 7t [place] [address] Care Team Providers Care Ssis Developer Name Role Phone Liset Mitchell MD Primary Care Provider [phone] Encounter Details Date Type Department Care Team ([facility] st Contact Info) Description 05/30/2024 Orders Only [facility] MEDICINE 230 [place], [place] [phone] Eli Rodriguez NP [address] [place], [place] [phone] Social History Tobacco Use Types Packs/Day Years [...] Description 03/09/2025 3:15 PM EST Office Visit [facility] MED & PEDS 505 [place] [address] Liset Mitchell MD 505 [place] [address] documented as of this encounter Visit Diagnoses Not on filedocumented in this encounter Additional Health Concerns Assessment Noted Time PHQ-9 Depression Total Score: 4 02/28/19 25 9:06 AM EST documented as of this encounter Care Teams Ssis Developer Relationship Specialty Start Date End Date Liset Mitchell MD [address] [place] [address] PCP - General Family Medicine 09/14/20 documented as of this encounter
--- OUTSIDE RECORDS SUMMARY | 2025-02-10 14:43 | XMS_ITS | Encounter Summary ---
Author Organization [employer] Address [address] [facility] 7t [place] [address] Care Team Providers Care Date Night Sitter Name Role Phone Liset Mitchell MD Primary Care Provider [phone] Reason for Visit * Reason Comments Med Change Request Encounter Details Date Type Department Care Team ([facility] Contact Info) Description 09/08/2023 Refill [facility]S [address] [place], [place] [phone] uRbio Blum MD [address] [place] [address] Social History Tobacco Use Types Packs/Day Years [...] Description 03/09/2025 3:15 PM EST Office Visit [facility] MED & PEDS [address] [place] [address] Liset Mitchell MD 505 [place] [address] documented as of this encounter Visit Diagnoses Not on filedocumented in this encounter Additional Health Concerns Assessment Noted Time PHQ-9 Depression Total Score: 0 04/13/19 23 10:04 AM EST documented as of this encounter Care Teams Date Night Sitter Relationship Specialty Start Date End Date Liset Mitchell MD 230 [place] [address] PCP - General Family Medicine 09/14/20 documented as of this encounter
--- OUTSIDE RECORDS SUMMARY | 2025-02-10 14:43 | XMS_ITS | Encounter Summary ---
Author Organization [employer] Address 75 [facility] 7 [place] [address] Care Team Providers Care Machines Technician Name Role Phone Liset Mitchell MD Primary Care Provider [phone] Reason for Visit * Reason Comments Med Change Request Encounter Details Date Type Department Care Team ([facility] Contact Info) Description 10/02/2022 Refill [facility] MED & PEDS 505 [place], [place] [phone] Carla Cheng MD [address] [place] [phone] Social History Tobacco Use Types Packs/Day Years [...] Upcoming Encounters Date Type Department Care Team ([facility] Contact Info) Description 03/09/2025 3:15 PM EST Office Visit [facility] MED & PEDS 505 [place], [place] [phone] Liset Mitchell MD 505 [place] [address] documented as of this encounter Visit Diagnoses Not on filedocumented in this encounter Additional Health Concerns Assessment Noted Time PHQ-9 Depression Total Score: 0 04/13/19 23 10:04 AM EST documented as of this encounter Care Teams Machines Technician Relationship Specialty Start Date End Date Liset Mitchell MD 230 [place] [address] PCP - General Family Medicine 09/14/20 documented as of this encounter
--- OUTSIDE RECORDS SUMMARY | 2025-02-10 14:43 | XMS_ITS | Encounter Summary ---
Author Organization [employer] Address [address] [address] 7t [place] [address] Care Team Providers Care Reinforcing Iron Worker Helper Name Role Phone Liset Mitchell MD Primary Care Provider [phone] Reason for Visit * Reason Comments Med Refill Encounter Details Date Type Department Care Team ([facility] Contact Info) Description 07/25/2024 Refill [facility] MEDICINE 230 [place], [place] [phone] Liset Mitchell MD [address] [place], [place] [phone] Social History Tobacco Use Types Packs/Day Years [...] [facility] MED & PEDS 505 [place] [address] Liset Mitchell MD [address] [place] [address] documented as of this encounter Visit Diagnoses Not on filedocumented in this encounter Additional Health Concerns Assessment Noted Time PHQ-9 Depression Total Score: 4 02/28/19 25 9:06 AM EST documented as of this encounter Care Teams Reinforcing Iron Worker Helper Relationship Specialty Start Date End Date Liset Mitchell MD [address] [place] [address] PCP - General Family Medicine 09/14/20 documented as of this encounter
--- OUTSIDE RECORDS SUMMARY | 2025-02-10 14:43 | XMS_ITS | Encounter Summary ---
Author Organization [employer] Address [address] [place] [address] Care Team Providers Care Toy Assembler Name Role Phone Liset Mitchell MD Primary Care Provider [phone] Encounter Details Date Type Department Care Team (Late st Contact Info) Description 10/07/2024 Orders Only [facility] [address] [place], [place] [phone] Rancho Alonzo MD [address] [place], [place] [phone] Social History Tobacco Use Types Packs/Day Years [...] Upcoming Encounters Date Type Department Care Team ([facility] st Contact Info) Description 03/09/2025 3:15 PM EST Office Visit [facility] [address] [place] [address] Liset Mitchell MD [address] [place] [address] documented as of this encounter Visit Diagnoses Not on filedocumented in this encounter Additional Health Concerns Assessment Noted Time PHQ-9 Depression Total Score: 4 02/28/19 25 9:06 AM EST documented as of this encounter Care Teams Toy Assembler Relationship Specialty Start Date End Date Liset Mitchell MD [address] [place] [id number] PCP - General Family Medicine 09/14/20 documented as of this encounter
--- OUTSIDE RECORDS SUMMARY | 2025-02-10 14:43 | XMS_ITS | Encounter Summary ---
Author Organization [employer] Address [address] [place] [address] Care Team Providers Care Concrete Stone Fabricating Supervisor Name Role Phone Liset Mitchell MD Primary Care Provider [phone] Reason for Visit * Reason Comments Med Refill Encounter Details Date Type Department Care Team ([facility] Contact Info) Description 04/13/2022 Refill [facility] [address] [place], [place] [phone] Liset Mitchell MD [address] [place], [place] [phone] Social History Tobacco Use Types Packs/Day Years [...] Description 03/09/2025 3:15 PM EST Office Visit [facility] [address] [place] [address] Liset Mitchell MD [address] [place] [address] documented as of this encounter Visit Diagnoses Not on filedocumented in this encounter Additional Health Concerns Assessment Noted Time PHQ-9 Depression Total Score: 0 04/13/19 23 10:04 AM EST documented as of this encounter Care Teams Concrete Stone Fabricating Supervisor Relationship Specialty Start Date End Date Liset Mitchell MD [address] [place] [address] PCP - General Family Medicine 09/14/20 documented as of this encounter
--- OUTSIDE RECORDS SUMMARY | 2025-02-10 14:43 | XMS_ITS | Encounter Summary ---
Author Organization [employer] Address [address] [place] [address] Care Team Providers Care Paperboard Machine Operator Name Role Phone Liset Mitchell MD Primary Care Provider [phone] Reason for Visit * Reason Onset Date Comments ER Follow-up 01/29/2024 Encounter Details Date Type Department Care Team ([facility] Contact Info) Description 01/29/2024 Telephone [facility] [address] [place], [place] [phone] Liset Mitchell MD [address] [place] [address] ER Follow-up Social History Tobacco Use Types [...] AM EST Triage call to Pt with [facility] [place] [id number]. Pt was [place] [facility] [place] [...] ED visit on : Date: 01/28/24 [place] [facility] [place] Seen for: High blood pressure Symptomatic No *if yes message should go to Triage Patient advised will forward to team nurse for follow up documented in this encounter Plan of Treatment Upcoming Encounters Date Type Department Care Team (Late st Contact Info) Description 03/09/2025 3:15 PM EST Office Visit [facility] [address] [place] [address] Liset Mitchell MD [address] [place] [address] documented as of this encounter Visit Diagnoses Not on filedocumented in this encounter Additional Health Concerns Assessment Noted Time PHQ-9 Depression Total Score: 0 04/13/19 23 10:04 AM EST documented as of this encounter Care Teams Paperboard Machine Operator Relationship Specialty Start Date End Date Liset Mitchell MD [address] [place] [address] PCP - General Family Medicine 09/14/20 documented as of this encounter
== END 2025-02-10 11:41 | disposition home or self-care (01) ==
LOC: HO.HPS 11:07
PROVIDERS: PCP Family Medicine; Visit Provider Hospitalist
DX: J45.40 Moderate persistent asthma, uncomplicated (principal); R91.8 Other nonspecific abnormal finding of lung field; G47.33 Obstructive sleep apnea (adult) (pediatric); R05.3 Chronic cough; J30.9 Allergic rhinitis, unspecified; J39.8 Other specified diseases of upper respiratory tract
CPT/HCPCS: 99214

== ENCOUNTER → 2025-02-10 11:07 | Outpatient (BNVA) | payer OTHER, SELFPAY | PROVIDERS: PCP Family Medicine; Visit Provider Hospitalist | DX: R91.8 Other nonspecific abnormal finding of lung field (principal); J45.40 Moderate persistent asthma, uncomplicated; G47.33 Obstructive sleep apnea (adult) (pediatric); R05.3 Chronic cough; J39.8 Other specified diseases of upper respiratory tract; Z79.899 Other long term (current) drug therapy | CPT/HCPCS: 99212 ==